=== PATIENT | female | born 1965 | race Caucasian/White ===

== ENCOUNTER 2023-02-05 19:18 | Outpatient (REF) | payer MEDICARE, SELFPAY ==
[2023-02-05 19:50] LABS: White Blood Count 14.1 10^3/uL (4.0-11.0)
[2023-02-05 20:09] LABS: Anion Gap 8.8; BUN Creatinine Ratio 8.2; Calcium 8.2 mg/dL (8.5-10.1); Carbon Dioxide 30.9 mmol/L (21.0-32.0); Chloride 105 mmol/L (98-107); Estimated GFR (African America >60 (>=60); Estimated GFR (Non-African Ame 51 (>=60); Glucose 51 mg/dL (74-106); Potassium 3.7 mmol/L (3.5-5.1); Sodium 141 mmol/L (136-145); Vancomycin Random 16.4 ug/mL
== END 2023-02-05 19:19 | disposition home or self-care (01) ==
LOC: LAB 19:18
PROVIDERS: PCP Internal Medicine; Visit Provider Internal Medicine Infectious Disease
DX: L03.90 Cellulitis, unspecified (principal); L08.9 Local infection of the skin and subcutaneous tissue, unspecified; B96.89 Other specified bacterial agents as the cause of diseases classified elsewhere
CPT/HCPCS: 36415; 80048; 80202; 85048

== ENCOUNTER 2023-02-11 11:36 | Outpatient (REF) | payer MEDICARE, SELFPAY ==
[2023-02-11 15:22] LABS: C. Difficile PCR NEGATIVE (NEGATIVE)
--- OUTSIDE RECORDS SUMMARY | 2023-03-03 00:58 | XMS_ITS | CCD ---
Author Name Unknown Address [address] [place] [address] Organization [facility] Care Team Providers Care Policy Advisor Name Role Phone MATILDE LOYOLA Admitting Unavailable MATILDE LOYOLA Attending Unavailable JARVIS THRASHER Primary Care Unavailable MATILDE LOYOLA Consulting Unavailable Unavailable Primary Care Provider Unavaildomingo e Zaid Mon Unavailable [phone] Alejandra Middleton Unavailable MD Jarvis Thrasher Primary Care Provider [phone] DO Yung David Attending Provider DO Chino Peraza Emergency Provider [phone] DO Ankur Mahan Emergency Provider MD Elise Marie Admit Provider [phone] Ashley, DPM Chichi Other Provider [phone] MD Karsten Vega Other Provider DO Adithya Rm Attending Provider MD Zaid Mon Attending Provider [phone] MD Zaid Mon Admit Provider LUPE Lin Other Provider Unavailable LUPE Wesley Other Provider Unavailable LUPE Chapin Other Provider Unavailable LUPE Yang Other Provider Unavailable LUPE Haddad Other Provider Unavailable LUPE Penn Other Provider Unavailable MD Malgorzata Kaplan Other Provider MD Adria Beckett Other Provider NAOMI Duran Other Provider DO Moises Venegas Other Provider MD Trung Cruz Other Provider DO Adithya Rm Other Provider MD Dean Rodriguez Other Provider MD Elise Marie Other Provider Chace, ANP-BC Valerie Other Provider MD Fredy Patricia Other Provider MD Aba Griffith Other Provider MD Yue Mendez Other Provider MD Hafsa Ivy Other Provider MD Rafat Duron Other Provider MD Juliane Campbell Other Provider MD Fernandez Ramirez Other Provider Michelle, HAND BENDER-C Sanna Landon Other Provider MD Ryland Liu Other Provider MD Maximo Patel Other Provider MD Steph Fu Other Provider MD Clyde Luna Other Provider DO Hailee Berg Other Provider Al MD Raj Ashby Other Provider DO Eugene Mcdonough Other Provider [phone] NAOMI Rodriguez Other Provider DO Calvin Underwood Other Provider MD Rodney Marti Other Provider [phone] Bharti, LUPE Sigala Other Provider Unavailable DO Robles Owen Emergency Provider MD Raj Vasquez Admit Provider MD Zaid Mon Other Provider MD Dean Rodriguez Attending Provider DO Zaid Fan Emergency Provider MD Rodney Bishop Admit Provider [phone] MD Rodney Marti Attending Provider MD Rolando Sykes Other Provider BECKIE Dsouza Other Provider Unavaildomingo Sanchez LPN Alma Other Provider Unavailable GENEVA Middleton-C Alejandra Pena Other Provider [phone] MD Sai Obregon F Other Provider TERESA Mehta Attending Provider MD Jarvis Thrasher Primary Care Provider DO Chino Peraza M Emergency Provider DO Ankur Mahan Emergency Provider MD Elise Marie Admit Provider TERESA Ramirez Other Provider MD Karsten Vega Other Provider DO Adithya Rm Attending Provider [phone] MD Zaid Mon Attending Provider MD Zaid Mon Admit Provider LUPE Lin Other Provider Unavailable LUPE Wesley Other Provider Unavailable LUPE Chapin Other Provider Unavailable LUPE Yang Other Provider Unavailable LUPE Haddad Other Provider Unavailable LUPE Penn Other Provider Unavailable MD Malgorzata Kaplan Other Provider MD Adria Beckett Other Provider NAOMI Duran Other Provider DO Moises Venegas Other Provider MD Trung Cruz Other Provider DO Adithya Rm Other Provider MD Dean Rodriguez Other Provider [phone] MD Elise Marie Other Provider Chace ANP-BC Valerie Other Provider MD Fredy Patricia Other Provider MD Aba Griffith Other Provider MD Yue Mendez Other Provider MD Hafsa Ivy Other Provider MD Rafat Duron Other Provider MD Juliane Campbell Other Provider MD Fernandez Ramirez Other Provider Michelle, HAND BENDER-C Sanna Landon Other Provider MD Ryland Liu Other Provider MD Maximo Patel Other Provider MD Steph Fu Other Provider MD Clyde Luna Other Provider DO Hailee Berg Other Provider MD Raj Vasquez Other Provider DO Eugene Mcdonough Other Provider NAOMI Rodriguez Other Provider DO Calvin Underwood Other Provider MD Rodney Marti Other Provider Bharti, RN Zakiya Other Provider Unavailable DO Robles Owen Emergency Provider MD Raj Vasquez Admit Provider MD Zaid Mon Other Provider MD Dean Rodriguez Attending Provider DO Zaid Fan Emergency Provider Unavai MD Rodney Parada Admit Provider MD Rodney Marti Attending Provider [phone] MD Rolando Sykes Other Provider BECKIE Dsouza Sravani Other Provider UnavailBECKIE Oscar Other Provider Unavailable GINA Middleton Other Provider MD Sai Obregon Other Provider TERESA Mehta Attending Provider TERESA Mehta Admit Provider DO Zackary Rivera Other Provider Javed Snyder Unavailable GENEVA Arias Other Provider GINA Ramirez Other Provider MD Javed Snyder S Other Provider MD Rafat Sanders Other Provider MD Jarvis Thrasher Primary Care Provider MD Jarvis Thrasher Attending Provider DO Robert Larsen Emergency Provider [phone] DO Hailee Berg Admit Provider TERESA Mehta Other Provider MD Fredy Patricia Attending Provider MD Jarvis Thrasher Primary Care Provider MD Zaid Mon Attending Provider MD Karsten Vega Other Provider [phone] DO Ankur Mahan Emergency Provider [phone] DO Jose Owen Other Provider DO Rolando Vicente Other Provider MD Jarvis Thrasher Primary Care Provider DO Robles Owen Emergency Provider Al Katiei MD Raj Oscar Admit Provider MD Zaid Mon Other Provider MD Dean Rodriguez Attending Provider DO Zaid Fan Emergency Provider Unavai MD Rodney Parada Admit Provider MD Rodney Marti Attending Provider MD Rolando Sykes Other Provider BECKIE Dsouza Other Provider UnavailBECKIE Oscar Other Provider Unavailable MD Karsten Vega Other Provider GENEVA Middleton-C Alejandra R Other Provider MD Sai Obregon F Other Provider TERESA Mehta Attending Provider TERESA Mehta Admit Provider LUPE Lin Other Provider Unavailable LUPE Wesley Other Provider Unavailable LUPE Chapin Other Provider Unavailable LUPE Yang Other Provider Unavailable LUPE Haddad Other Provider Unavailable Isamar, RN Lily Other Provider Unavailable MD Malgorzata Kaplan Other Provider MD Adria Beckett Other Provider Dials, SIGNAL WIRER Kate Archuleta Other Provider [phone] DO Moises Venegas Other Provider MD Trung Cruz Other Provider DO Adithya Rm Other Provider MD Dean Rodriguez Other Provider [phone] MD Elise Marie Other Provider Chace ANP-BC Valerie Other Provider [phone] MD Fredy Patricia Other Provider MD Aba Griffith Other Provider MD Yue Mendez Other Provider MD Hafsa Ivy Other Provider MD Rafat Duron Other Provider MD Juliane Campbell Other Provider MD Fernandez Ramirez Other Provider GINA Martinez Other Provider MD Ryland Liu Other Provider MD Maximo Patel Other Provider MD Steph Fu Other Provider MD Clyde Luna Other Provider DO Hailee Berg Other Provider Al MD Raj Ashby Other Provider DO Eugene Mcdonough Other Provider [phone] DO Zackary Rivera Other Provider NAOMI Rodriguez Other Provider DO Calvin Underwood Other Provider MD Rodney Marti M Other Provider Bharti, LUPE Sigala Other Provider Unavailable GENEVA Arias Other Provider GINA Ramirez Other Provider MD Javed Snyder Other Provider MD Rafat Sanders Other Provider MD Jarvis Thrasher Attending Provider [phone] DO Robert Larsen Emergency Provider DO Hailee Berg Admit Provider TERESA Mehta Other Provider [phone] MD Fredy Patricia Attending Provider DO Ankur Mahan Emergency Provider DO Rolando Vicente Other Provider DO Jose Owen Other Provider DO Yung David Attending Provider MD Jarvis Thrasher Primary Care Provider DO Robert Larsen Emergency Provider [phone] DO Hailee Berg Admit Provider MD Rolando Sykes Other Provider TERESA Mehta Other Provider MD Zaid Mon Other Provider MD Fredy Patricia Attending Provider [phone] DO Ankur Mahan Emergency Provider TERESA Mehta Kanu RValentina Attending Provider TERESA Mehta Kanu R. Admit Provider Riley, LUPE Jaffe Other Provider Unavailable LUPE Wesley Other Provider Unavailable LUPE Chapin Other Provider Unavailable LUPE Yang Other Provider Unavailable LUPE Haddad Other Provider Unavailable Isamar, RN Lily Other Provider Unavailable MD Malgorzata Kaplan Other Provider MD Adria Beckett Other Provider Dials, SIGNAL WIRER Kate Archuleta Other Provider DO Moises Venegas Other Provider MD Trung Cruz Other Provider DO Adithya Rm Other Provider MD Dean Rodriguez Other Provider MD Elise Marie Other Provider Chace ANP-BC Valerie Other Provider MD Fredy Patricia Other Provider MD Aba Griffith Other Provider MD Yue Mendez Other Provider MD Hafsa Ivy Other Provider DO Rolando Vicente Other Provider MD Rafat Duron Other Provider MD Juliane Campbell Other Provider MD Fernandez Ramirez Other Provider GENEVA Martinez-C Sanna Landon Other Provider MD Ryland Liu Other Provider MD Maximo Patel Other Provider MD Steph Fu Other Provider MD Clyde Luna Other Provider DO Hailee Berg Other Provider Al Lucila Oscar MD Hanbrenna Other Provider DO Eugene Mcdonough Other Provider DO Zackary Rivera Other Provider [phone] NAOMI Rodriguez Other Provider DO Calvin Underwood Other Provider MD Rodney Marti Other Provider Bharti, RN Zakiya Other Provider Unavailable DO Jose Owen Other Provider [phone] DO Yung David Attending Provider MD Jarvis Thrasher Primary Care Provider TERESA Mehta Attending Provider MD Zaid Mon Attending Provider MD Jarvis Thrasher Primary Care Provider MD Zaid Mon Attending Provider [phone] TERESA Mehta Attending Provider MD Jarvis Thrasher Primary Care Provider MD Zaid Mon Attending Provider NO FAMILY, PHYSICIAN Primary Care Provider Unava ilable TERESA Mehta Attending Provider MD Zaid Mon Attending Provider MD Jarvis Thrasher Primary Care Provider NON STAFF Primary Care Provider NAOMI Rivera Emergency Provider Unavailable Primary Care Provider TERESA Phelan Attending Provider MD Jarvis Thrasher Primary Care Provider [phone] GENEVA Middleton-Venus Pena Attending Provider SASTRY, ANTWON Referring Unavailable SASTRY, ANTWON Attending Unavailable SASTRY, ANTWON Referring Unavailable SASTRY, ANTWON Attending Unavailable SASTRY, ANTWON Attending Unavailable MD Jarvis Thrasher Primary Care Provider [phone] NAOMI Martínez Emergency Provider DO Chino Peraza Emergency Provider [phone] [facility] [place] Admit Provider [phone] [facility] [place] Attending Provider MD Rolando Sykes Other Provider TERESA Mehta Other Provider MD Zaid Mon Other Provider MD Ryland Liu Attending Provider MD Jarvis Thrasher Primary Care Provider [phone] MD Jarvis Thrasher Referring Provider NAOMI Toro Attending Provider MD Jarvis Thrasher Attending Provider MD Jarvis Thrasher Referring Provider NAOMI Toro Nora Attending Provider TERESA Mehta Attending Provider [phone] [place], Jarvis Primary Care Unavailable [place], Casa T Admitting Unavailable Ryland Liu Attending UnavailRolando Ruiz Consulting Unavailable Kanu Mehta Consulting Unavailable Zaid Mon Consulting Unavailabl e Melissa, Kanu R. Admitting Unavailable Hill, Jarvis Primary Care Unavailable Melissa, Kanu Corley Attending Unavailable Melissa, Kanu R. Admitting Unavailable Hill, Jarvis Primary Care Unavailable Kanu Mehta Attending Unavailable Melissa, Kanu RValentina Admitting Unavailable Hill, Jarvis Primary Care Unavailable Melissa, Kanu Corley Attending Unavailable Melissa, Kanu R. Admitting Unavailable Hill, Jarvis Primary Care Unavailable Melissa, Kanu Corley Attending Unavailable [place], Jarvis Primary Care Unavailable Zaid Mon Attending Unavailabl e Zaid Mon Admitting Unavailabl e Hill, Jarvis Primary Care Unavailable Yaa, Zaid Garrett Attending Unavailabl e Yaa, Zaid Garrett Admitting Unavailabl e Hill, Jarvis Primary Care Unavailable Kanu Mehta Attending Unavailable Melissa, Kanu R. Admitting Unavailable Melissa, Kanu R. Admitting Unavailable [place], Jarvis Primary Care Unavailable Melissa, Kanu Corley Attending Unavailable Melissa, Kanu R. Admitting Unavailable Hill, Jarvis Primary Care Unavailable Kanu Mehta Attending Unavailable Kanu Mehta Attending Unavailable NO FAMILY, PHYSICIAN Primary Care Unavailable Melissa, Kanu R. Admitting Unavailable Hill, Jarvis Primary Care Unavailable Montana Martínez Attending Unavailable Montana Martínez Admitting Unavailable Hill, Jarvis Primary Care Unavailable [place], Jarvis Attending Unavailable Hill, Jarvis Admitting Unavailable Kanu Mehta Attending Unavailable Hill, Jarvis Primary Care Unavailable Melissa, Kanu R. Admitting Unavailable Hill, Jarvis Primary Care Unavailable Melissa, Kanu RValentina Attending Unavailable Melissa, Kanu R. Admitting Unavailable Zaid Mon Attending Unavailabl e Yaa, Zaid Garrett Admitting Unavailabl e Kanu Mehta Attending Unavailable Melissa, Kanu R. Admitting Unavailable BEEBEJARVIS L Attending Unavailable JARVIS THRASHER L Referring Unavailable KANU MEHTA Attending Unavailable KANU MEHTA Attending Unavailable KANU MEHTA Attending Unavailable JARVIS THRASHER Referring Unavailable JOHN ORR Attending Unavailable Allergies Allergy Classification Reported Allergen(s) Allergy Type Date of Onset Reaction(s) Facility (17 sources) Angiotensin Converting Enzyme (Keegan) Inhibitors Propensity to adverse reactions Cough [facility] [employer] Other (19 sources) metFORMIN; Translations: [METFORMIN] Drug Allergy 2 GI Upset, Other: See Comments [facility] Work Phone: (20 sources) pioglitazone; Translations: [PIOGLITAZONE] Drug Allergy 2 Cough, Other: See Comments [facility] Work Phone: (20 sources) predniSONE; Translations: [PREDNISONE] Drug Allergy 2 Other: See Comments, Unknown [facility] Work Phone: (17 sources) Unknown - Has Allergy Not Sure What Propensity to adverse reactions Unknown [facility] [employer] Other (20 sources) HYDROcodone; Translations: [HYDROCODONE] Drug Allergy 2 Mental Status Change [facility] (20 sources) Steroid Injection Allergy to substance 2 Swelling [facility] (1 source) metFORMIN Drug Allergy GI upset [facility] [employer] Other (3 sources) Angiotensin-con verting enzyme inhibitor agent; Translations: [KEEGAN INHIBITORS] Drug Allergy 2 Cough [facility] Work Phone: (3 sources) HMG-CoA reductase inhibitor; Translations: [[id number] A REDUCTASE INHIBITORS] Drug Allergy 2 Other: See Comments [facility] Work Phone: Medications Current Medications Medication Drug Class(es) Dates Sig (Normalized) Sig (Original) acetaminophen 325 mg / oxyCODONE hydrochloride 5 mg oral tablet (20 sources) Opioid Agonist Start: 08-20-2022 take 1 tablet by mouth every four to six hours Oxycodone-Acetami nophen Active 1 - 2 TAB PO EVERY 4-6 HOURS August 19, 2022 11:00pm Start: 12-18-2021 End: 01-08-2022 Oxycodone-Acetaminophen Disc ontinued TAB TABLET January 05, 2022 11:00pm January 06, 2022 5:37pm Start: 11-03-2021 take 1 tablet by alfonso th every six hours oxyCODONE-Acetaminophen 5-325 MG 1 table t as needed Orally every 6 hrs for 3 days Oct, Active Start: 09-27-2021 End: 10-09-2021 take 3 tablets by mouth three times daily Oxycodone-Acetaminophen (Percocet) 5-325 mg tablet Discontinued 3 TAB PO Three times daily September 27, 2021 1:17pm October 09, 2021 9:12am Start: 11-18-2017 End: 10-09-2021 Start: 05-17-2017 End: 01-08-2022 take 1 tablet by mouth every four to six hours Oxycodone-Acetaminophen (Percocet) 5-325 mg tablet Discontinued 1 - 2 TAB PO EVERY 4-6 HOURS November 18, 2017 September 27, 2021 1:17pm amitriptyline hydrochloride 25 mg oral tablet (20 sources) Tricyclic Antidepressant Start: 01-21-2021 take 50 mg by mouth once daily at bedtime Amitriptyline Active 50 MG PO Daily at bedtime January 21, 2021 12:00am Start: 01-21-2021 take 1 tablet by alfonso th once daily at bedtime amitriptyline (ELAVIL) 25 mg tablet Take 25 mg by mouth daily at bedtime. 0 06/09/2021 Active Comment on above: Take 25 mg by mouth daily at bedtime. aspirin 81 mg delayed release oral tablet (20 sources) Platelet Aggregation Inhibitor, Nonsteroidal Anti-inflammatory Drug Start: 01-22-2021 aspirin 81 mg chewable tablet 81 mg once daily. 0 01/22/2021 Active Start: 01-22-2021 End: 05-02-2021 take 81 mg by mouth once daily in the morning Aspirin Active 81 MG PO Every morning May 02, 2021 3:59pm Start: 12-23-2016 End: 11-18-2017 take 81 mg by mouth once daily Aspirin Discontinued 81 MG PO Daily December 22, 2016 11:00pm November 18, 2017 10:25am Baby Aspirin Act jerson Comment on above: 81 mg once daily. atorvastatin 20 mg oral tablet (20 sources) HMG-CoA Reductase Inhibitor Start: 10-17-2021 End: 12-26-2021 take 2 tablets by mouth once daily in the morning Atorvastatin (Lipitor) 20 mg tablet Active 40 MG PO Every morning December 26, 2021 7:45pm Start: 10-17-2021 take 2 tablets by mo ut once daily at bedtime Atorvastatin (Lipitor) 20 mg tablet Active 40 MG PO Daily at bedtime October 17, 2021 1:15pm Start: 10-17-2021 take 2 tablets by mo uth once daily at bedtime Atorvastatin (Lipitor) 20 mg tablet Active 40 MG PO Daily at bedtime October 17, 2021 1:15pm Start: 01-22-2021 End: 10-17-2021 take 1 tablet by mouth once daily at bedtime Atorvastatin (Lipitor) 20 mg tablet Discontinued 20 MG PO Daily at bedtime May 02, 2021 3:59pm October 17, 2021 1:58pm Start: 01-22-2021 End: 10-17-2021 take 2 tablets by mouth once daily atorvastatin (LIPITOR) 20 mg tablet Take 40 mg by mouth once daily. 0 06/09/2021 Active Start: 01-18-2017 End: 11-18-2017 take 20 mg by mouth once daily Atorvastatin Discontinu ed 20 MG PO Daily January 18, 2017 12:00am November 18, 2017 10:26am Start: 01-18-2017 End: 11-18-2017 Comment on above: Take 20 mg by mouth once daily. Take 40 mg by mouth once daily. clopidogrel 75 mg oral tablet (20 sources) [id number] Platelet Inhibitor Start: 01-22-2021 End: 05-02-2021 take 75 mg by mouth once daily in the morning Clopidogrel Active 75 MG PO Every morning May 02, 2021 3:59pm Comment on above: Take 75 mg by mouth once daily. collagenase 0.25 unt/mg topical ointment (20 sources) Collagen-specific Enzyme Start: 08-20-2022 Colla genase Clostridium Histo. (Santyl) 250 unit/gram ointment Active 1 APPLIC TOPICAL Daily August 19, 2022 11:00pm Start: 03-10-2021 End: 07-29-2021 Collagenase Clostridium Hist o. (Santyl) 250 unit/gram ointment Discontinued 1 APPLIC TOPICAL Daily March 10, 2021 12:00am July 29, 2021 9:26am Start: 03-10-2021 End: 07-29-2021 DULoxetine 30 mg delayed release oral capsule (20 sources) Serotonin and Norepinephrine Reuptake Inhibitor Start: 08-20-2022 take 30 mg by mouth once daily in the morning Duloxetine Active 30 MG PO Every morning August 19, 2022 11:00pm Start: 11-04-2021 End: 12-09-2021 take 30 mg by mouth once daily Duloxetine Discontinued 30 MG PO Daily November 03, 2021 11:00pm December 09, 2021 3:51pm Start: 11-04-2021 take 30 mg by mouth once daily Duloxetine Active 30 MG PO Daily November 04, 2021 12:00am Start: 11-04-2021 take 30 mg by mouth once daily Duloxetine Active 30 MG PO Daily November 04, 2021 12:00am Start: 11-04-2021 take 30 mg by mouth once daily Duloxetine Active 30 MG PO Daily November 04, 2021 12:00am Start: 11-04-2021 take 30 mg by mouth once daily Duloxetine Active 30 MG PO Daily November 04, 2021 12:00am Start: 08-20-2021 take 1 capsule by mo [facility] once daily DULoxetine (CYMBALTA) 30 mg capsule Take 30 mg by mouth once daily. 0 08/20/2021 Active Comment on above: Take 30 mg by mouth once daily. Flonase 50 MCG/ACT (2 sources) take 2 spray(s) nasal route once daily as needed Flonase 50 MCG/ACT inhale 2 spray by Intranasal route every day in each nostril prn Nasal *please review for potential _update for e-prescription and drug interaction check* Active gabapentin 800 mg oral tablet (20 sources) Anti-epileptic Agent Start: 01-21-2021 take 800 mg by mouth four times daily Gabapentin Active 800 MG PO Four times daily January 21, 2021 12:00am Start: 11-02-2017 End: 01-26-2019 take 300 mg by mouth once daily Gabapentin Discontinue d 300 MG PO Daily November 01, 2017 11:00pm January 26, 2019 12:22pm take 1 tablet by alfonso th every eight hours Gabapentin 800 MG 1 capsule Orally TID for 90 Days Active take 1 capsule by mo uth every twelve hours Gabapentin 300 mg 1 capsule Orally bid for 90 Days Active Comment on above: Take 800 mg by mouth four times daily. glimepiride 4 mg oral tablet (20 sources) Sulfonylurea Start: 11-04-2021 take 4 mg by mouth once daily in the morning Glimepiride Active 4 MG PO Every morning November 03, 2021 11:00pm Start: 11-04-2021 take 4 mg by mouth once daily Glimepiride Active 4 MG PO Daily November 04, 2021 12:00am Start: 11-04-2021 take 4 mg by mouth once daily Glimepiride Active 4 MG PO Daily November 04, 2021 12:00am Start: 11-04-2021 take 4 mg by mouth once daily Glimepiride Active 4 MG PO Daily November 04, 2021 12:00am Start: 11-04-2021 take 4 mg by mouth once daily Glimepiride Active 4 MG PO Daily November 04, 2021 12:00am Start: 12-30-2016 End: 10-17-2021 take 4 mg by mouth once daily in the morning Glimepiride Discontinued 4 MG PO Every morning January 21, 2021 12:00am October 17, 2021 1:58pm Start: 11-24-2016 End: 01-21-2021 take 4 mg by mouth once daily Glimepiride Discontinued 4 MG PO Daily January 18, 2017 12:00am January 21, 2021 10:41am Start: 11-24-2016 End: 11-18-2017 take 2 mg by mouth once daily Glimepiride Discontinued 2 MG PO Daily November 23, 2016 11:00pm November 18, 2017 10:27am Comment on above: Take 4 mg by mouth o nce daily. Handicap Placard 5 year 5 year (17 sources) Start: 12-26-[address] 5 year 5 year 1 misc daily for 5 year *please review for potential _update for e-prescription and drug interaction check* Dec, Active levothyroxine sodium 0.125 mg oral tablet (20 sources) l-Thyrox ine Start: 07-16-2022 take 150 ug by mouth once daily in the morning Levothyroxine Active 150 MCG PO Every morning September 26, 2021 11:00pm Start: 09-27-2021 take 125 ug by mouth once juana y Levothyroxine Active 125 MCG PO Daily September 27, 2021 12:00am Start: 08-05-2021 levothyroxine (SYNTHROID) 100 mcg tablet Take 150 mcg by mouth once daily. 0 08/05/2021 Active Start: 08-05-2021 take 1 tablet by alfonso th once daily in the morning levothyroxine (SYNTHROID) 100 mcg tablet TAKE 1 TABLET in the morning on an empty stomach orally once a day 60 days 0 08/05/2021 Active Levothyroxine So dium 100 MCG TAKE 1 TABLET in the morning on an empty stomach orally once a day 60 days Oral for 60 Days Active Comment on above: TAKE 1 TABLET in the morning on an empty stomach orally once a day 60 days Take 150 mcg by mout h once daily. meloxicam 15 mg oral tablet (20 sources) Nonsteroidal Anti-inflammatory Drug Start: 01-21-2021 take 15 mg by mouth once daily in the morning Meloxicam Active 15 MG PO Every morning January 21, 2021 12:00am Comment on above: Take 15 mg by mouth once daily. 24 hr metoprolol succinate 25 mg extended release oral tablet (20 sources) beta-Adrenergic Rajat Start: 05-02-2021 take 50 mg by mouth once daily in the morning Metoprolol Succinate Active 50 MG PO Every morning May 02, 2021 12:00am Start: 05-02-2021 Comment on above: Take 25 mg by mouth once daily. Take 50 mg by mouth once daily. omeprazole 40 mg delayed release oral capsule (10 sources) Proton Pump Inhibitor Start: 08-20-2022 take 40 mg by mouth once daily in the morning Omeprazole Active 40 MG PO Every morning August 19, 2022 11:00pm Ozempic (0.25 or 0.5 MG/DOSE) 2 MG/1.5ML (2 sources) Ozempic (0.25 or 0.5 MG/DOSE) 2 MG/1.5ML as directed Subcutaneous Active proparacaine hydrochloride 5 mg/ml ophthalmic solution (1 source) Local Anesthetic Start: 01-01-2023 End: 01-02-2023 proparacaine 0.5 % 1 Drop (ALCAINE) Semaglutide (20 sources) Start: 08-20-2022 inject 1 mg by subcutaneous injection every week Semaglutide (Ozempic) 1 mg/dose (4 mg/3 mL) pen injector Active 1 MG SUBCUT every week August 20, 2022 10:36am pt. takes on mondays. Start: 08-20-2022 inject 1 mg by subcu taneous injection every week Semaglutide (Ozempic) 1 mg/dose (4 mg/3 mL) pen injector Active 1 MG SUBCUT every week August 20, 2022 11:36am pt. takes on mondays. Start: 10-17-2021 End: 08-20-2022 inject 1 mg by subcutaneous injection every week Semaglutide (Ozempic) 1 mg/dose (4 mg/3 mL) pen injector Discontinued 1 MG SUBCUT every week October 16, 2021 11:00pm August 20, 2022 10:36am pt. takes on mondays. Start: 10-17-2021 End: 08-20-2022 inject 1 mg by subcutaneous injection every week Semaglutide (Ozempic) 1 mg/dose (4 mg/3 mL) pen injector Discontinued 1 MG SUBCUT every week October 17, 2021 12:00am August 20, 2022 11:36am pt. takes on mondays. Start: 10-17-2021 inject 1 mg by subcu taneous injection every week Semaglutide (Ozempic) 1 mg/dose (4 mg/3 mL) pen injector Active 1 MG SUBCUT every week October 16, 2021 11:00pm pt. takes on mondays. Start: 10-17-2021 Start: 10-17-2021 inject 1 mg by subcu taneous injection every week Semaglutide (Ozempic) 1 mg/dose (4 mg/3 mL) pen injector Active 1 MG SUBCUT every week October 17, 2021 12:00am pt. takes on mondays. Start: 10-17-2021 inject 1 mg by subcu taneous injection every week Semaglutide (Ozempic) 1 mg/dose (4 mg/3 mL) pen injector Active 1 MG SUBCUT every week October 17, 2021 12:00am Sennosides (Senna Lax) 8.6 mg Tablet (20 sources) Start: 10-09-2021 take 2 tablets by mouth twice daily Sennosides (Senna Lax) 8.6 mg Tablet Active 2 TAB PO Twice daily 120 October 08, 2021 11:00pm Start: 10-09-2021 take 2 tablets by mo uth twice daily Sennosides (Senna Lax) 8.6 mg Tablet Active 2 TAB PO Twice daily 120 October 09, 2021 12:00am Completed/Discontinued Medications Medication Drug Class(es) Dates Sig (Normalized) Sig (Original) amoxicillin 875 mg / clavulanate 125 mg oral tablet (20 sources) Penicillin-class Antibacterial Start: 11-09-2021 End: 12-03-2021 take 1 tablet by mouth twice daily Amoxicillin-Pot Clavulanate Discontinued 1 TAB PO Twice daily 14 November 08, 2021 11:00pm December 03, 2021 6:40pm Start: 11-09-2021 End: 12-03-2021 Start: 11-09-2021 take 1 tablet by alfonso th twice daily Amoxicillin-Pot Clavulanate Active 1 TAB PO Twice daily 14 November 09, 2021 12:00am Start: 11-09-2021 take 1 tablet by alfonso th twice daily Amoxicillin-Pot Clavulanate Active 1 TAB PO Twice daily 14 November 09, 2021 12:00am Start: 11-09-2021 take 1 tablet by alfonso th twice daily Amoxicillin-Pot Clavulanate Active 1 TAB PO Twice daily 14 November 09, 2021 12:00am Start: 11-09-2021 take 1 tablet by alfonso th twice daily Amoxicillin-Pot Clavulanate Active 1 TAB PO Twice daily 14 November 09, 2021 12:00am Start: 11-09-2021 take 1 tablet by alfonso th twice daily Amoxicillin-Pot Clavulanate Active 1 TAB PO Twice daily 14 November 09, 2021 12:00am atenolol 25 mg oral tablet (20 sources) beta-Adrenergic Rajat Start: 11-24-2016 End: 01-18-2017 take 1 tablet by mouth twice daily Atenolol Discontinued 1 TAB PO Twice daily November 23, 2016 11:00pm January 18, 2017 11:37am Start: 11-24-2016 End: 01-18-2017 azithromycin 250 mg oral tablet (20 sources) Macrolide Antimicrobial Start: 01-18-2017 End: 11-18-2017 take 1 tablet by mouth once daily Azithromycin Discontinued 250 MG PO Daily January 18, 2017 12:00am November 18, 2017 10:26am take one tab daily for 4 days bevacizumab intravitreal syringe 2.5 mg/0.1 mL (2 sources) Start: 01-01-2023 End: 01-01-2023 bevacizumab intravitreal syringe 2.5 mg/0.1 mL Start: 12-04-2022 End: 12-04-2022 bevacizumab intravitreal syr barron 2.5 mg/0.1 mL cephalexin 500 mg oral capsule (20 sources) Cephalosporin Antibacterial Start: 01-06-2022 End: 01-06-2022 take 500 mg by mouth every six hours Cephalexin Discontinued 500 MG PO Q6H 28 January 05, 2022 11:00pm January 06, 2022 5:34pm Start: 10-13-2021 End: 10-17-2021 take 500 mg by mouth three times daily Cephalexin Discontinued 500 MG PO Three times daily October 12, 2021 11:00pm October 17, 2021 1:58pm Start: 01-22-2021 End: 02-12-2021 take 500 mg by mouth twice daily Cephalexin Discontinued 500 MG PO Twice daily 20 January 22, 2021 12:00am February 12, 2021 4:36pm Start: 01-22-2021 End: 02-12-2021 clindamycin 300 mg oral capsule (20 sources) Lincosamide Antibacterial Start: 10-12-2021 End: 10-13-2021 take 300 mg by mouth three times daily Clindamycin Hcl Discontinued 300 MG PO Three times daily 63 October 11, 2021 11:00pm October 13, 2021 7:13am cyclobenzaprine hydrochloride 10 mg oral tablet (20 sources) Muscle Relaxant Start: 08-20-2021 take 1 tablet by mouth once daily at bedtime as needed cyclobenzaprine (FLEXERIL) 10 mg tablet TAKE 1 TABLET BY MOUTH AT BEDTIME DAILY NEEDED 0 08/20/2021 Active Start: 05-02-2021 take 10 mg by mouth once daily at bedtime Cyclobenzaprine Active 10 MG PO Daily at bedtime May 02, 2021 12:00am Comment on above: TAKE 1 TABLET BY ALFONSO TH AT BEDTIME DAILY NEEDED docusate sodium 100 mg oral capsule (20 sources) Start: 10-09-2021 End: 10-17-2021 take 200 mg by mouth twice daily Docusate Sodium Discontinued 200 MG PO Twice daily 120 October 08, 2021 11:00pm October 17, 2021 1:58pm doxycycline hyclate 100 mg oral tablet (20 sources) Tetracycline- class Drug Start: 11-09-2021 End: 12-03-2021 take 100 mg by mouth twice daily Doxycycline Hyclate Discontinued 100 MG PO Twice daily 0 November 09, 2021 11:58am December 03, 2021 6:40pm Continue for 7 more days Start: 11-09-2021 take 100 mg by mouth twice daily Doxycycline Hyclate Active 100 MG PO Twice daily 0 November 09, 2021 12:58pm Continue for 7 more days Start: 11-09-2021 take 100 mg by mouth twice daily Doxycycline Hyclate Active 100 MG PO Twice daily 0 November 09, 2021 12:58pm Continue for 7 more days Start: 11-09-2021 take 100 mg by mouth twice daily Doxycycline Hyclate Active 100 MG PO Twice daily 0 November 09, 2021 12:58pm Continue for 7 more days Start: 11-09-2021 take 100 mg by mouth twice daily Doxycycline Hyclate Active 100 MG PO Twice daily 0 November 09, 2021 12:58pm Continue for 7 more days Start: 11-09-2021 take 100 mg by mouth twice daily Doxycycline Hyclate Active 100 MG PO Twice daily 0 November 09, 2021 12:58pm Continue for 7 more days Start: 11-09-2021 End: 11-09-2021 take 100 mg by mouth twice daily Doxycycline Hyclate Discontinued 100 MG PO Twice daily November 08, 2021 11:00pm November 09, 2021 11:58am Start: 09-27-2021 End: 10-09-2021 take 100 mg by mouth once daily Doxycycline Hyclate Di scontinued 100 MG PO Daily September 27, 2021 1:17pm October 09, 2021 9:11am Start: 08-13-2021 End: 10-09-2021 take 100 mg by mouth twice daily Doxycycline Hyclate Discontinued 100 MG PO Twice daily 14 August 12, 2021 11:00pm September 27, 2021 1:17pm Start: 05-10-2021 End: 07-29-2021 take 100 mg by mouth twice daily Doxycycline Hyclate Discontinued 100 MG PO Twice daily 01 01May 10, 2021 12:00am July 29, 2021 9:20am take 1 tablet by alfonso once daily Doxycycline Hyclate 100 MG 1 tablet Orally Once a day Active ergocalciferol 1.25 mg oral capsule (2 sources) Provitamin D2 Compound Start: 09-07-2022 ergocalciferol 50,00 0 unit capsule (VITAMIN D2, DRISDOL) Take 1.25 mg by mouth. 0 09/07/2022 Active Comment on above: Take 1.25 mg by mout h. 72 hr fentaNYL 0.025 mg/hr transdermal system (20 sources) Opioid Agonist Start: 11-09-2021 End: 12-03-2021 Fentanyl Discontinued 25 MCG TRANSDERML Every 72 hours 2 November 09, 2021 December 03, 2021 6:40pm Start: 11-09-2021 End: 12-03-2021 Start: 11-09-2021 Fentanyl Activ e 25 MCG TRANSDERML Every 72 hours 2 November 09, 2021 Start: 11-09-2021 Fentanyl Activ e 25 MCG TRANSDERML Every 72 hours 2 November 09, 2021 Start: 11-09-2021 Fentanyl Activ e 25 MCG TRANSDERML Every 72 hours 04 20November 09, 2021 Start: 11-09-2021 Fentanyl Activ e 25 MCG TRANSDERML Every 72 hours 2 November 09, 2021 Start: 11-09-2021 Fentanyl Activ e 25 MCG TRANSDERML Every 72 hours 2 November 09, 2021 fluticasone propionate 0.05 mg/actuat metered dose nasal spray (20 sources) Corticosteroid Start: 08-20-2021 take 2 spray(s) nasal route once daily as needed fluticasone (FLONASE) 50 mcg/actuation nasal spray INHALE TWO SPRAYS NASALLY EVERY DAY IN EACH NOSTRIL NEEDED 0 08/20/2021 Active Start: 03-06-2018 Fluticasone Pr opionate (Flonase Allergy Relief) 50 mcg/actuation [place],Suspension Active 1 SPRAY INTRANASAL Daily at bedtime March 06, 2018 12:00am Start: 03-06-2018 Fluticasone Prop ionate 50 MCG/ACT Nasal for 30 Days Active Comment on above: INHALE TWO SPRAYS NA LAURITA EVERY DAY IN EACH NOSTRIL NEEDED HYDROmorphone hydrochloride 2 mg oral tablet (16 sources) Opioid Agonist Start: 01-08-2022 End: 08-20-2022 take 2 mg by mouth every six hours Hydromorphone Discontinued 2 MG PO Every 6 hours 56 January 08, 2022 August 20, 2022 10:34am Insulin Aspart U-100 (Novolog Flexpen U-100 Insulin) 100 unit/mL (3 mL) Insulin Pen (20 sources) Start: 10-17-2021 End: 11-04-2021 Insulin Aspart U-100 (Novolog Flexpen U-100 Insulin) 100 unit/mL (3 mL) Insulin Pen Discontinued 0 UNITS SUBCUT 3X/Day with meals and bedtime 0 October 16, 2021 11:00pm November 04, 2021 1:14am Start: 10-17-2021 End: 11-04-2021 Insulin Aspart U-100 (Novolo g Flexpen U-100 Insulin) 100 unit/mL (3 mL) Insulin Pen Discontinued 0 UNITS SUBCUT 3X/Day with meals and bedtime 0 October 17, 2021 12:00am November 04, 2021 2:14am 3 ml insulin detemir 100 unt/ml pen injector (20 sources) Insulin Analog Start: 10-17-2021 End: 11-04-2021 Insulin Detemir U-100 (Levemir Flextouch U-100 Insuln) 100 unit/mL (3 mL) Insulin Pen Discontinued 20 UNIT SUBCUT Daily at bedtime 0 October 16, 2021 11:00pm November 04, 2021 1:14am levoFLOXacin 750 mg oral tablet (20 sources) Quinolone Antimicrobial Start: 12-30-2021 End: 03-27-2022 take 750 mg by mouth once daily Levofloxacin Discontinued 750 MG PO Daily 12 22December 29, 2021 11:00pm March 27, 2022 12:02pm Start: 04-16-2021 End: 05-02-2021 take 750 mg by mouth once daily Levofloxacin Discontinued 750 MG PO Daily April 16, 2021 12:00am May 02, 2021 3:54pm Start: 03-13-2021 End: 04-09-2021 take 750 mg by mouth once daily Levofloxacin Discontinued 750 MG PO Daily 7 March 13, 2021 12:00am April 09, 2021 6:28am linezolid 600 mg oral tablet (20 sources) Oxazolidinone Antibacterial Start: 12-05-2021 End: 12-30-2021 take 600 mg by mouth twice daily Linezolid Discontinued 600 MG PO Twice daily December 04, 2021 11:00pm December 30, 2021 1:09pm 3 ml liraglutide 6 mg/ml pen injector (20 sources) GLP-1 Receptor Agonist Start: 11-02-2017 End: 01-26-2019 inject 1.2 mg by subcutaneous injection once daily Liraglutide Discontinued 1.2 MG SUBCUT Daily November 01, 2017 11:00pm January 26, 2019 12:22pm lisinopril 10 mg oral tablet (20 sources) Angiotensin Converting Enzyme Inhibitor Start: 01-18-2017 End: 11-18-2017 take 10 mg by mouth once daily Lisinopril Discontinued 10 MG PO Daily January 18, 2017 12:00am November 18, 2017 10:27am losartan potassium 50 mg oral tablet (20 sources) Angiotensin 2 Receptor Rajat Start: 01-21-2021 End: 01-21-2021 Losartan Discontinued MG TABLET January 21, 2021 12:00am January 21, 2021 10:46am Start: 11-02-2017 End: 01-21-2021 take 50 mg by mouth once daily in the morning Losartan Active 50 MG PO Every morning November 01, 2017 11:00pm Comment on above: Take 50 mg by mouth once daily. meclizine hydrochloride 25 mg oral tablet (20 sources) Antiemetic Start: 02-17-2019 End: 10-17-2021 take 25 mg by mouth once daily at bedtime Meclizine Discontinued 25 MG PO Daily at bedtime February 12, 2021 12:00am October 17, 2021 1:58pm Comment on above: Take 25 mg by mouth once daily as needed. methIMAzole 10 mg oral tablet (3 sources) Thyroid Hormone Synthesis Inhibitor Start: 06-18-2021 take 1 tablet by mouth once daily methIMAzole (TAPAZOLE) 10 mg tablet Take 10 mg by mouth once daily. 0 06/18/2021 Active Comment on above: Take 10 mg by mouth once daily. methylPREDNISolone (16 sources) Corticosteroid Start: 03-12-2015 Depo-Medrol 80 mg Feb, 1 mL nystatin 100 unt/mg topical ointment (20 sources) Polyene Antifungal Start: 06-25-2021 nystatin (MYCOSTATIN) ointment 1 (ONE) application to skin TWICE DAILY 0 06/25/2021 Active Start: 03-10-2021 End: 02-09-2023 Nystatin Discontinued 1 APPL IC TOPICAL Three times daily March 10, 2021 12:00am February 09, 2023 2:45pm Bilateral groins Start: 03-10-2021 Comment on above: 1 (ONE) application to skin TWICE DAILY ondansetron 8 mg oral tablet (3 sources) Serotonin-3 Receptor Antagonist Start: 07-01-2021 take 1 tablet by mouth every eight hours as needed ondansetron (ZOFRAN) 8 mg tablet Take 8 mg by mouth every 8 hours as needed. 0 07/01/2021 Active Comment on above: Take 8 mg by mouth e very 8 hours as needed. oxyCODONE hydrochloride 5 mg oral tablet (20 sources) Opioid Agonist Start: 12-18-2021 End: 01-06-2022 take 10 mg by mouth every four hours Oxycodone Discontinued 10 MG PO Q4H December 17, 2021 11:00pm January 06, 2022 5:36pm Start: 11-09-2021 End: 12-03-2021 take 15 mg by mouth four times daily Oxycodone Discontinued 15 MG PO Four times daily 01 10November 09, 2021 December 03, 2021 6:42pm Start: 11-09-2021 End: 12-09-2021 take 15 mg by mouth three times daily Oxycodone Discontinued 15 MG PO Three times daily December 03, 2021 6:42pm December 09, 2021 3:52pm Start: 11-09-2021 take 15 mg by mouth four times daily Oxycodone Active 15 MG PO Four times daily 01 10November 09, 2021 Start: 11-09-2021 take 15 mg by mouth four times daily Oxycodone Active 15 MG PO Four times daily 20 November 09, 2021 Start: 11-09-2021 take 15 mg by mouth four times daily Oxycodone Active 15 MG PO Four times daily 01 10November 09, 2021 Start: 11-09-2021 take 15 mg by mouth four times daily Oxycodone Active 15 MG PO Four times daily 01 10November 09, 2021 Start: 11-09-2021 take 15 mg by mouth four times daily Oxycodone Active 15 MG PO Four times daily 01 10November 09, 2021 Start: 10-09-2021 End: 11-09-2021 take 5-10 mg by mouth every four hours Oxycodone Discontinued 5 - 10 MG PO Every 4 hours 15 October 17, 2021 November 09, 2021 11:55am Start: 08-13-2021 End: 09-27-2021 Oxycodone (Roxicodone) 5 mg tablet Discontinued 10 MG PO Three times daily 14 3 August 13, 2021 September 27, 2021 11:01am Start: 05-10-2021 End: 07-29-2021 take 1 tablet by mouth twice daily, then take 1 tablet by mouth every hour Oxycodone (Oxycontin) 20 mg tablet,oral only,ext.rel.12 hr Discontinued 20 MG PO Twice daily 14 May 10, 2021 July 29, 2021 9:25am Start: 03-13-2021 End: 05-09-2021 take 1 tablet by mouth twice daily, then take 1 tablet by mouth every hour Oxycodone (Oxycontin) 10 mg tablet,oral only,ext.rel.12 hr Discontinued 10 MG PO Twice daily May 02, 2021 3:59pm May 09, 2021 2:17pm predniSONE 50 mg oral tablet (20 sources) Start: 01-26-2019 End: 01-21-2021 take 50 mg by mouth once daily Prednisone Discontinued 50 MG PO Daily 5 January 26, 2019 12:00am January 21, 2021 4:22am Start: 01-18-2017 End: 11-18-2017 take 20 mg by mouth once daily at mealtime Prednisone Discontinued 20 MG PO Daily January 18, 2017 12:00am November 18, 2017 10:28am administer with food or milk propylthiouracil 50 mg oral tablet (3 sources) Thyroid Hormone Synthesis Inhibitor Start: 07-02-2021 take 1 tablet by mouth twice daily propylthiouracil 50 mg tablet Take 50 mg by mouth twice daily. 0 07/02/2021 Active Comment on above: Take 50 mg by mouth twice daily. rivaroxaban 10 mg oral tablet (20 sources) Factor Xa Inhibitor Start: 11-09-2021 End: 12-09-2021 take 1 tablet by mouth once daily Rivaroxaban (Xarelto) 10 mg Tablet Discontinued 10 MG PO Daily November 08, 2021 11:00pm December 09, 2021 3:51pm Start: 11-09-2021 take 1 tablet by alfonso th once daily Rivaroxaban (Xarelto) 10 mg Tablet Active 10 MG PO Daily November 09, 2021 12:00am Start: 11-09-2021 take 1 tablet by alfonso once daily Rivaroxaban (Xarelto) 10 mg Tablet Active 10 MG PO Daily November 09, 2021 12:00am Start: 11-09-2021 take 1 tablet by alfonso th once daily Rivaroxaban (Xarelto) 10 mg Tablet Active 10 MG PO Daily November 09, 2021 12:00am Start: 11-09-2021 take 1 tablet by alfonso th once daily Rivaroxaban (Xarelto) 10 mg Tablet Active 10 MG PO Daily November 09, 2021 12:00am Start: 11-09-2021 take 1 tablet by alfonso once daily Rivaroxaban (Xarelto) 10 mg Tablet Active 10 MG PO Daily November 09, 2021 12:00am 0.25 mg, 0.5 mg dose 1.5 ml semaglutide 1.34 mg/ml pen injector (16 sources) Start: 08-20-2021 inject 0.5 mg by subcutaneous injection every week, then inject 1 mg by subcutaneous injection every week OZEMPIC 0.25 mg or 0.5 mg(2 mg/1.5 mL) pen injector INJECT 0.5MG SUBCUTANEOUSLY ONCE WEEKLY FOR FOUR WEEKS THEN 1MG ONCE A WEEK 0 08/20/2021 Active Comment on above: INJECT 0.5MG SUBCUTA NEOUSLY ONCE WEEKLY FOR FOUR WEEKS THEN 1MG ONCE A WEEK triamcinolone acetonide 5 mg/ml topical cream (20 sources) Corticosteroid Start: 08-20-2021 triamcinolone acetonide (KENALOG) 0.5 % cream APPLY TO THE AFFECTED AREA(S) EXTERNALLY TWICE DAILY NEEDED 0 08/20/2021 Active Start: 02-12-2021 End: 04-09-2021 Triamcinolone Acetonide Disc ontinued 1 APPLIC TOPICAL Twice daily February 12, 2021 12:00am April 09, 2021 6:30am Start: 02-12-2021 End: 04-09-2021 Triamcinolone Ac etonide 0.5 % 1 application to affected area Externally Twice a day prn Active Comment on above: APPLY TO THE AFFECTE D AREA(S) EXTERNALLY TWICE DAILY NEEDED vancomycin 1000 mg injection (4 sources) Glycopeptide Antibacterial Start: 02-02-2023 End: 02-09-2023 take 1 g intravenously every twelve hours Vancomycin Discontinued 1 GM IV Q12H February 02, 2023 12:00am February 09, 2023 2:44pm pharmacy to manage vancomycin dosing zolpidem tartrate 5 mg oral tablet (2 sources) gamma-Aminobutyric Acid-ergic Agonist Start: 09-07-2022 zolpidem (AMBIEN) 5 mg tablet Take 5 mg by mouth. 0 09/07/2022 Active Comment on above: Take 5 mg by mouth. (10 sources) Start: 10-17-2021 End: 11-04-2021 Start: 10-09-2021 Problems Active Problems Problem Classification Problem Date Documented Date Episodic/Chronic Acute cerebrovascular disease (20 sources) Cerebrovascular accident; Translations: [Cerebral infarction, unspecified] 12-21-2016 Chronic Administrative/social admission (20 sources) Counseling procedure with explicit context; Translations: [Tobacco abuse counseling] 12-21-2016 Episodic Cardiac dysrhythmias (20 sources) Palpitations; Translations: [Palpitations] 05-08-2021 Episodic Cataract (1 source) Artificial lens present; Translations: [Presence of intraocular lens] 12-04-2022 Chronic Chronic kidney disease (18 sources) Chronic kidney disease stage 2; Translations: [Chronic kidney disease, stage 2 (mild)] Onset: 10-16-2022 Chronic Chronic obstructive pulmonary disease and bronchiectasis (20 sources) Bronchitis; Translations: [Bronchitis, not specified as acute or chronic] 01-18-2017 Episodic Chronic ulcer of skin (20 sources) Non-pressure chronic ulcer of other part of left foot with unspecified severity; Translations: [Non-pressure chronic ulcer of other part of left foot with necrosis of bone] Onset: 10-29-2021 Resolved: 10-29-2021 Chronic Complications of surgical procedures or medical care (20 sources) Postoperative seroma; Translations: [Other specified complications of surgical and medical care, not elsewhere classified, initial encounter] Onset: 01-28-2023 08-13-2021 Episodic Conditions associated with dizziness or vertigo (17 sources) Benign paroxysmal positional vertigo; Translations: [Benign paroxysmal vertigo, left ear] Episodic Diabetes mellitus with complications (20 sources) Type 2 diabetes mellitus; Translations: [Type 2 diabetes mellitus with diabetic peripheral angiopathy without gangrene] Onset: 08-21-2021 Resolved: 08-21-2021 Chronic Diabetes mellitus without complication (20 sources) Diabetes mellitus; Translations: [Type 2 diabetes mellitus without complications] 12-21-2016 Chronic Diseases of white blood cells (2 sources) Neutrophilia; Translations: [Disorder of white blood cells, unspecified] 02-12-2023 Chronic Disorders of lipid metabolism (17 sources) Hypercholesterolemia; Translations: [Pure hypercholesterolemia] Chronic Essential hypertension (20 sources) Essential hypertension; Translations: [Essential (primary) hypertension] Onset: 10-16-2022 01-21-2021 Chronic External cause codes: Natural/environment (1 source) Overexertion from prolonged static or awkward postures, initial encounter; Translations: [OVEREXERT PROLNG STAT/AWK PST INIT] Onset: 03-17-2019 Gangrene (20 sources) Gangrenous disorder; Translations: [Gangrene, not elsewhere classified] Onset: 01-28-2023 02-08-2021 Episodic Infective arthritis and osteomyelitis (except that caused by tuberculosis or sexually transmitted disease) (20 sources) Osteomyelitis; Translations: [Osteomyelitis, unspecified] 01-21-2021 Chronic Malaise and fatigue (20 sources) Right hemiparesis; Translations: [Weakness] 12-21-2016 Episodic Nutritional deficiencies (20 sources) Undernutrition; Translations: [Unspecified protein-calorie malnutrition] 10-04-2021 Chronic Open wounds of extremities (1 source) Amputated toe of right foot; Translations: [Complete traumatic amputation of one right lesser toe, initial encounter] Chronic Open wounds of extremities (1 source) Amputated toe of left foot; Translations: [Complete traumatic amputation of one left lesser toe, initial encounter] Chronic Other acquired deformities (17 sources) Lumbar spondylolisthesis; Translations: [Spondylolisthesis, lumbar region] Episodic Other aftercare (1 source) Other termite control service representative (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) drug therapy; Translations: [OTH TURN OUT CURRENT DRUG THERAPY] Onset: 03-17-2019 Episodic Other aftercare (20 sources) Wound finding; Translations: [Encounter for other specified aftercare] 11-02-2021 Episodic Other aftercare (20 sources) Surgical follow-up; Translations: [Encounter for follow-up examination after completed treatment for conditions other than malignant neoplasm] 10-08-2021 Episodic Other aftercare (20 sources) Encounter for follow-up examination after completed treatment for conditions other than malignant neoplasm; Translations: [Follow-up examination, following surgery, unspecified] 10-09-2021 Episodic Other and unspecified benign neoplasm (17 sources) History of polyp of colon; Translations: [Personal history of colonic polyps] Episodic Other bone disease and musculoskeletal deformities (19 sources) History of amputation of right foot; Translations: [Acquired absence of other right toe(s)] 12-17-2021 Episodic Other bone disease and musculoskeletal deformities (19 sources) History of amputation of left foot; Translations: [Acquired absence of other left toe(s)] 12-17-2021 Episodic Other bone disease and musculoskeletal deformities (12 sources) Acquired absence of other left toe(s); Translations: [Other toe(s) amputation status] 12-18-2021 Episodic Other bone disease and musculoskeletal deformities (12 sources) Acquired absence of other right toe(s); Translations: [Other toe(s) amputation status] 12-18-2021 Episodic Other connective tissue disease (19 sources) Foot pain; Translations: [Pain in right foot] 12-17-2021 Episodic Other connective tissue disease (8 sources) Pain in right foot; Translations: [Pain in limb] 12-18-2021 Episodic Other hematologic conditions (1 source) Erythrocytosis; Translations: [Secondary polycythemia] 02-12-2023 Episodic Other hematologic conditions (1 source) Secondary polycythemia; 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] 02-09-2023 Episodic Other infections; including parasitic (20 sources) Disorder due to infection; Translations: [Unspecified infectious disease] 11-04-2021 Episodic Other infections; including parasitic (13 sources) Unspecified infectious disease; Translations: [Unspecified infectious and parasitic diseases] 11-09-2021 Episodic Other injuries and conditions due to external causes (20 sources) Local infection of wound; Translations: [Other injury of unspecified body region, initial encounter] 11-04-2021 Episodic Other injuries and conditions due to external causes (20 sources) Hematoma; Translations: [Other injury of unspecified body region, initial encounter] 10-01-2021 Episodic Other injuries and conditions due to external causes (20 sources) Other injury of unspecified body region, initial encounter; Translations: [Contusion of unspecified site] 10-09-2021 Episodic Other nervous system disorders (17 sources) Chronic pain; Translations: [Other chronic pain] Chronic Other nervous system disorders (17 sources) Cubital tunnel syndrome; Translations: [Lesion of ulnar nerve, right upper limb] Chronic Other nervous system disorders (17 sources) Carpal tunnel syndrome; Translations: [Carpal tunnel syndrome, right upper limb] Chronic Other nervous system disorders (17 sources) Nervous system symptoms; Translations: [Other abnormalities of gait and mobility] Episodic Other nervous system disorders (20 sources) Postoperative pain ; Translations: [Other acute postprocedural pain] 05-10-2021 Episodic Other nutritional; endocrine; and metabolic disorders (20 sources) Morbid obesity; Translations: [Morbid (severe) obesity due to excess calories] 12-21-2016 Chronic Other nutritional; endocrine; and metabolic disorders (17 sources) Body mass index 40+ - severely obese; Translations: [Body mass index (BMI) 40.0-44.9, adult] Chronic Other nutritional; endocrine; and metabolic disorders (20 sources) 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; Translations: [Other disorders of plasma-protein metabolism, not elsewhere classified] 10-04-2021 Chronic Other nutritional; endocrine; and metabolic disorders (11 sources) Other disorders of plasma-protein metabolism, not elsewhere classified; Translations: [Other disorders of plasma protein metabolism] 10-09-2021 Chronic Other nutritional; endocrine; and metabolic disorders (20 sources) Morbid (severe) obesity due to excess calories; Translations: [Morbid obesity] 10-09-2021 Chronic Other skin disorders (7 sources) Swelling of lower leg; Translations: [Localized swelling, mass and lump, unspecified lower limb] 11-10-2022 Episodic Other upper respiratory disease (17 sources) Allergic rhinitis; Translations: [Allergic rhinitis, unspecified] Chronic Peripheral and visceral atherosclerosis (20 sources) Peripheral vascular disease, unspecified; Translations: [Atherosclerosis of pamunkey arteries of extremities with rest pain, bilateral legs] Onset: 03-06-2021 Resolved: 11-26-2021 Chronic Residual codes; unclassified (17 sources) Obstructive sleep apnea syndrome; Translations: [Obstructive sleep apnea (adult) (pediatric)] Chronic Residual codes; unclassified (20 sources) Tobacco user; Translations: [Tobacco use] 12-21-2016 Episodic Residual codes; unclassified (17 sources) Postprocedural state finding; Translations: [Other specified postprocedural states] Episodic Residual codes; unclassified (20 sources) Postoperative state; Translations: [Other specified postprocedural states] 05-10-2021 Episodic Residual codes; unclassified (11 sources) Other specified postprocedural states; Translations: [Other postprocedural status] 10-09-2021 Episodic Residual codes; unclassified (11 sources) Tobacco use; Translations: [Tobacco use disorder] 10-09-2021 Episodic Retinal detachments; defects; vascular occlusion; and retinopathy (4 sources) Central retinal vein occlusion with macular edema; Translations: [Central retinal vein occlusion, right eye, with macular edema] Onset: 12-04-2022 12-03-2022 Chronic Skin and subcutaneous tissue infections (20 sources) Cellulitis; Translations: [Cellulitis, unspecified] Onset: 01-28-2023 01-21-2021 Episodic Spondylosis; intervertebral disc disorders; other back problems (20 sources) Degeneration of intervertebral disc; Translations: [Other intervertebral disc degeneration, lumbar region] Chronic Spondylosis; intervertebral disc disorders; other back problems (20 sources) Cervicalgia; Translations: [Spinal stenosis of lumbar region] Onset: 03-14-2019 12-21-2016 Episodic Sprains and strains (20 sources) Strain of muscle, fascia and tendon at neck level, initial encounter; Translations: [Strain of other muscles, fascia and tendons at shoulder and upper arm level, left arm, initial encounter] Onset: 03-17-2019 01-26-2019 Episodic Superficial injury; contusion (20 sources) Contusion of knee; Translations: [Contusion of right knee, initial encounter] 04-18-2020 Episodic Unclassified (1 source) Local infection of the skin and subcutaneous tissue, unspecified; Translations: [Local infection of the skin and subcutaneous tissue, unspecified] Onset: 02-09-2023 Unclassified (1 source) Tachycardia, unspecified; Translations: [Tachycardia, unspecified] Onset: 10-16-2022 Unclassified (1 source) Cellulitis of right lower limb; Translations: [Cellulitis of right lower limb] Onset: 10-15-2022 Unclassified (1 source) Irritant contact dermatitis due friction or contact with other specified body fluids; Translations: [Irritant contact dermatitis due friction or contact with other specified body fluids] Onset: 08-20-2022 Unclassified (1 source) Encounter for other preprocedural examination; Translations: [Encounter for other preprocedural examination] Onset: 07-07-2022 Unclassified (1 source) Cutaneous abscess of left foot; Translations: [Cutaneous abscess of left foot] Onset: 07-01-2022 Past or Other Problems Problem Classification Problem Date Documented Date Episodic/Chronic Other aftercare (1 source) Encounter for surgical aftercare following surgery on the circulatory system Onset: 10-29-2021 Resolved: 10-29-2021 Episodic Other nervous system disorders (1 source) Other acute postprocedural pain Onset: 11-03-2021 Resolved: 11-03-2021 Episodic Unclassified (3 sources) Wound drainage; Translations: [Wound drainage] Results Test Name Value Interpretation Reference Range Facil ity Glucose Glucometer (dC) [M ass/Vol]Ordered By: AUTUMN Mehta on 02-19-2023 Glucose [Mass/Vol] 65 mg/dL [facility] Comment on above: Random Glucose Refer ence Range is dependent on time and content of last meal. Glucose of more than 200 mg/dL in a nonstressed, ambulatory subject supports the diagnosis of Diabetes Mellitus. Glucose Poct Glucometerson 1 04-22-2022 Commemt1 Glu2: Cleaned Meter Normal [facility] Comment on above: Result Comment: PERF ORMED BY: [place] [address] PATHOLOGIST BLOOD BANK MANAGER RITA CONNER M.D. Performed By: #### G LULS #### Point of Care testing , Glucose [Mass/Vol] 65 mg/dL Normal [facility] Comment on above: Result Comment: [place] om Glucose Reference Range is dependent on time and content of last meal. Glucose of more than 200 mg/dL in a nonstressed, ambulatory subject supports the diagnosis of Diabetes Mellitus. Performed By: #### G LULS #### Point of Care testing , Glucose [Mass/Vol] 72 mg/dL Normal [facility] Comment on above: Result Comment: [place] [facility] Glucose Reference Range is dependent on time and content of last meal. Glucose of more than 200 mg/dL in a nonstressed, ambulatory subject supports the diagnosis of Diabetes Mellitus. PERFORMED BY: [place] [phone] PATHOLOGIST BLOOD BANK MANAGER RITA CONNER M.D. Performed By: #### A ERC #### [address] No Panel InformationOrdered By: AUTUMN Mehta on 02-19-2023 Bedside Glucose Comment Glu2: cleaned meter [facility] Basic Metabolic Panelon 11-2 Anion gap [Moles/Vol] 8.5 mmol/L Normal 6.0-15.0 [facility] Comment on above: Performed By: #### G LULS #### Point of Care testing , Calcium [Mass/Vol] 8.3 mg/dL Low 8.6-10.3 [facility] Comment on above: Result Comment: PERF ORMED BY: [place] [address] PATHOLOGIST BLOOD BANK MANAGER RITA CONNER M.D. Performed By: #### G LULS #### Point of Care testing , Chloride [Moles/Vol] 106 mmol/L Normal 98-107 [facility] Comment on above: Performed By: #### G LULS #### Point of Care testing , CO2 [Moles/Vol] 30.7 mmol/L Normal 21.0-31.0 [facility] Comment on above: Performed By: #### G LULS #### Point of Care testing , Creatinine [Mass/Vol] 0.89 mg/dL Normal 0.60-1.20 [facility] Comment on above: Performed By: #### G LULS #### Point of Care testing , GFR/1.73 sq M.predicted MDRD (S/P/Bld) [Vol rate/Area] mL/min/{1.73_m2} Normal [facility] Comment on above: Performed By: #### G LULS #### Point of Care testing , Glucose [Mass/Vol] 67 mg/dL Low 70-100 [facility] Comment on above: Result Comment: [facility] Glucose Reference Range is dependent on time and content of last meal. Glucose of more than 200 mg/dL in a nonstressed, ambulatory subject supports the diagnosis of Diabetes Mellitus. ADA recommended reference range Performed By: #### G LULS #### Point of Care testing , Potassium [Moles/Vol] 4.2 mmol/L Normal 3.5-5.1 [facility] Comment on above: Performed By: #### G LULS #### Point of Care testing , Sodium [Moles/Vol] 141 mmol/L Normal 136-145 [facility] Comment on above: Performed By: #### G LULS #### Point of Care testing , Urea nitrogen [Mass/Vol] 10 mg/dL Normal 7-25 [facility] Comment on above: Performed By: #### G LULS #### Point of Care testing , Calcium [Mass/volume] in Ser um or PlasmaOrdered By: Rolando Sykes on 02-09-2023 Calcium [Mass/Vol] 8.3 mg/dL 8.6-10.3 [facility] Carbon dioxide, total [Moles /volume] in Serum or PlasmaOrdered By: Rolando Sykes on 02-09-2023 CO2 [Moles/Vol] 30.7 mmol/L 21.0-31.0 [facility] Chloride [Moles/volume] in S jamshid or PlasmaOrdered By: Rolando Sykes on 02-09-2023 Chloride [Moles/Vol] 106 mmol/L 98-107 [facility] Creatinine [Mass/volume] in Serum or PlasmaOrdered By: Rolando Sykes on 02-09-2023 Creatinine [Mass/Vol] 0.89 mg/dL 0.60-1.20 [facility] Glucose [Mass/volume] in Ser um or PlasmaOrdered By: Rolando Sykes on 02-09-2023 Glucose [Mass/Vol] 67 mg/dL 70-100 [facility] Comment on above: ADA recommended refe rence rangeRandom Glucose Reference Range is dependent on time and content of last meal. Glucose of more than 200 mg/dL in a nonstressed, ambulatory subject supports the diagnosis of Diabetes Mellitus. No Panel InformationOrdered By: Rolando Sykes on 02-09-2023 Estimated GFR (CKD-EPI) > 60.0 mL/Min [facility] Creatinine Clearanc e (Chem N/A [facility] Potassium [Moles/volume] in Serum or PlasmaOrdered By: Rolando Sykes on 02-09-2023 Potassium [Moles/Vol] 4.2 mmol/L 3.5-5.1 [facility] Serum or plasma anion gap de terminationOrdered By: Rolando Sykes on 02-09-2023 Anion gap [Moles/Vol] 8.5 mmol/L 6.0-15.0 [facility] Serum or plasma trough vanco mycin levelOrdered By: Zaid Mon on 02-09-2023 Vancomycin trough [Mass/Vol] 17.9 ug/mL 10.0-20 .0 [facility] Comment on above: Last dose: - Sodium [Moles/volume] in Ser um or PlasmaOrdered By: Rolando Sykes on 02-09-2023 Sodium [Moles/Vol] 141 mmol/L 136-145 [facility] Urea nitrogen [Mass/volume] in Serum or PlasmaOrdered By: Rolando Sykes on 02-09-2023 Urea nitrogen [Mass/Vol] 10 mg/dL 7-25 [facility] Vancomycin,Troughon 02-10-20 23 Vancomycin,Trough 17.9 ug/mL Normal 10.0-20.0 [facility] Comment on above: Order Comment: Reaso n for Exam Infection of left foot Result Comment: Last dose: - PERFORMED BY: [place] [address] PATHOLOGIST BLOOD BANK MANAGER RITA CONNER M.D. Performed By: #### V ANCT #### [address] Automated basophil %Ordered By: Casa Givens on 02-02-2023 Basophils/100 WBC (Bld) 0.8 % Normal . [facility] Comment on above: Performed By: #### G LULS #### Point of Care testing , Automated basophil countOrde red By: Casa Givens on 02-02-2023 Basophils (Bld) [#/Vol] 0.1 10*3/uL Normal 0.0-0.2 [facility] Comment on above: Result Comment: PERF ORMED BY: [place] [address] PATHOLOGIST BLOOD BANK MANAGER RITA CONNER M.D. Performed By: #### G LULS #### Point of Care testing , Automated blood monocyte cou ntOrdered By: Casa Givens on 02-02-2023 Monocytes (Bld) [#/Vol] 0.9 10*3/uL High 0.0-0.8 [facility] Comment on above: Performed By: #### G LULS #### Point of Care testing , Automated eosinophil %Ordere d By: Casa Givens on 02-02-2023 Eosinophils/100 WBC (Bld) 3.0 % Normal . [facility] Comment on above: Performed By: #### G LULS #### Point of Care testing , Automated eosinophil countOr dered By: Casa Givens on 02-02-2023 Eosinophils (Bld) [#/Vol] 0.4 10*3/uL Normal 0.0-0.45 [facility] Comment on above: Performed By: #### G LULS #### Point of Care testing , Automated monocyte %Ordered By: Casa Givens on 02-02-2023 Monocytes/100 WBC (Bld) 7.3 % Normal . [facility] Comment on above: Performed By: #### G LULS #### Point of Care testing , Automated neutrophil %Ordere d By: Casa Givens on 02-02-2023 Neutrophils/100 WBC (Bld) 70.4 % Normal . [facility] Comment on above: Performed By: #### G LULS #### Point of Care testing , Basic Metabolic Panelon 01-14 Creatinine Clr Calc Pharmacy 79.39 Normal [facility] Comment on above: Result Comment: PERF ORMED BY: [facility] [address] [place] [address] PATHOLOGIST BLOOD BANK MANAGER RITA CONNER M.D. Performed By: #### G LULS #### Point of Care testing , GFR/1.73 sq M.predicted MDRD (S/P/Bld) [Vol rate/Area] mL/min/{1.73_m2} Normal [facility] Comment on above: Performed By: #### G LULS #### Point of Care testing , Calcium [Mass/volume] in Ser um or PlasmaOrdered By: Casa Givens on 02-02-2023 Calcium [Mass/Vol] 8.7 mg/dL Normal 8.6-10.3 [facility] Comment on above: Performed By: #### G LULS #### Point of Care testing , Carbon dioxide, total [Moles /volume] in Serum or PlasmaOrdered By: Casa Givens on 02-02-2023 CO2 [Moles/Vol] 30.1 mmol/L Normal 21.0-31.0 [facility] Comment on above: Performed By: #### G LULS #### Point of Care testing , Chloride [Moles/volume] in S jamshid or PlasmaOrdered By: Casa Givens on 02-02-2023 Chloride [Moles/Vol] 101 mmol/L Normal 98-107 [facility] Comment on above: Performed By: #### G KAN #### Point of Care testing , Complete Blood Count Auto Di ffon 02-02-2023 Mean Corpuscular HGB Conc 32.5 g/dL Normal 32.0-35.0 [facility] Comment on above: Performed By: #### G KAN #### Point of Care testing , NRBC% 0.1 /100{WBC} Normal 0-0.5 [facility] Comment on above: Performed By: #### G KAN #### Point of Care testing , Creatinine [Mass/volume] in Serum or PlasmaOrdered By: Casa Givens on 02-02-2023 Creatinine [Mass/Vol] 0.98 mg/dL Normal 0.60-1.20 [facility] Comment on above: Performed By: #### G ELBALS #### Point of Care testing , Erythrocyte distribution wid th [Ratio] by Automated countOrdered By: Casa Givens on 02-02-2023 Erythrocyte distribution wid th (RBC) [Ratio] 13.9 % Normal 11.9-15.3 [facility] Comment on above: Performed By: #### G KAN #### Point of Care testing , Erythrocytes [#/volume] in B lood by Automated countOrdered By: Casa Givens on 02-02-2023 RBC (Bld) [#/Vol] 4.44 10*6/uL Normal 3.60-5.00 [facility] Comment on above: Performed By: #### G LUNATHALIE #### Point of Care testing , Glucose Glucometer (BldC) [M ass/Vol]Ordered By: Ryland Liu on 02-02-2023 Glucose [Mass/Vol] 124 mg/dL [facility] Comment on above: Random Glucose Refer ence Range is dependent on time and content of last meal. Glucose of more than 200 mg/dL in a nonstressed, ambulatory subject supports the diagnosis of Diabetes Mellitus. Glucose Poct Glucometerson 1 04-04-2022 Commemt1 Glu2: Cleaned Meter Normal [facility] Comment on above: Result Comment: PERF ORMED BY: [facility] [address] [place] [address] PATHOLOGIST BLOOD BANK MANAGER RITA CONNER M.D. Performed By: #### G LULS #### Point of Care testing , Glucose [Mass/Vol] 124 mg/dL Normal [facility] Comment on above: Result Comment: [place] [facility] Glucose Reference Range is dependent on time and content of last meal. Glucose of more than 200 mg/dL in a nonstressed, ambulatory subject supports the diagnosis of Diabetes Mellitus. Performed By: #### G LULS #### Point of Care testing , Commemt1 Glu2: Cleaned Meter Normal [facility] Comment on above: Result Comment: PERF ORMED BY: [facility] [address] [address] PATHOLOGIST BLOOD BANK MANAGER RITA CONNER M.D. Performed By: #### G LULS #### Point of Care testing , Glucose [Mass/Vol] 150 mg/dL Normal [facility] Comment on above: Result Comment: [place] [facility] Glucose Reference Range is dependent on time and content of last meal. Glucose of more than 200 mg/dL in a nonstressed, ambulatory subject supports the diagnosis of Diabetes Mellitus. Performed By: #### G LULS #### Point of Care testing , Glucose [Mass/volume] in Ser um or PlasmaOrdered By: Casa Givens on 02-02-2023 Glucose [Mass/Vol] 153 mg/dL High 70-100 [facility] Comment on above: ADA recommended refe rence rangeRandom Glucose Reference Range is dependent on time and content of last meal. Glucose of more than 200 mg/dL in a nonstressed, ambulatory subject supports the diagnosis of Diabetes Mellitus. Result Comment: [place] [facility] Glucose Reference Range is dependent on time and content of last meal. Glucose of more than 200 mg/dL in a nonstressed, ambulatory subject supports the diagnosis of Diabetes Mellitus. ADA recommended reference range Performed By: #### G LULS #### Point of Care testing , Hematocrit [Volume Fraction] of Blood by Automated countOrdered By: Casa Givens on 02-02-2023 Hematocrit (Bld) [Volume fraction] 41.9 % Normal 34.0-46.4 [facility] Comment on above: Performed By: #### G ELBALS #### Point of Care testing , Hemoglobin [Mass/volume] in BloodOrdered By: Casa Givens on 02-02-2023 Hemoglobin (Bld) [Mass/Vol] 13.6 g/dL Normal 11.8-15. 4 [facility] Comment on above: Performed By: #### G LULS #### Point of Care testing , Leukocytes [#/volume] correc marquez for nucleated erythrocytes in Blood by Automated counOrdered By: Casa Givens on 02-02-2023 WBC corrected for nucl RBC A uto (Bld) [#/Vol] 13.0 10*3/uL 3.8-11.6 [facility] Leukocytes [#/volume] in Blo od by Automated countOrdered By: Casa Givens on 02-02-2023 WBC (Bld) [#/Vol] 13.0 10*3/uL High 3.8-11.6 [facility] Comment on above: Performed By: #### G ELBALS #### Point of Care testing , Lymphocytes [#/volume] in Bl ood by Automated countOrdered By: Casa Givens on 02-02-2023 Lymphocytes (Bld) [#/Vol] 2.4 10*3/uL Normal 1.00-4.8 [facility] Comment on above: Performed By: #### G ELBALS #### Point of Care testing , Lymphocytes/100 leukocytes i n Blood by Automated countOrdered By: Casa Givens on 02-02-2023 Lymphocytes/100 WBC (Bld) 18.5 % Normal . [facility] Comment on above: Performed By: #### G ELBALS #### Point of Care testing , MCH [Entitic mass] by Automa marquez countOrdered By: Casa Givens on 02-02-2023 MCH (RBC) [Entitic mass] 30.7 pg Normal 24.7-34.3 [facility] Comment on above: Performed By: #### G ELBALS #### Point of Care testing , MCHC Auto (RBC) [Mass/Vol]Or dered By: Casa Givens on 02-02-2023 MCHC (RBC) [Mass/Vol] 32.5 g/dL 32.0-35.0 [facility] MCV [Entitic volume] by Auto mated countOrdered By: Casa Givens on 02-02-2023 MCV (RBC) [Entitic vol] 94.4 fL Normal 80-100 [facility] Comment on above: Performed By: #### G LULS #### Point of Care testing , Neutrophils [#/volume] in Bl ood by Automated countOrdered By: Casa Givens on 02-02-2023 Neutrophils (Bld) [#/Vol] 9.1 10*3/uL High 1.8-7.7 [facility] Comment on above: Performed By: #### G LULS #### Point of Care testing , No Panel InformationOrdered By: Ryland Liu on 02-02-2023 Bedside Glucose Comment Glu2: cleaned meter [facility] No Panel InformationOrdered By: Casa Givens on 02-02-2023 Estimated GFR (CKD-EPI) > 60.0 mL/Min [facility] Creatinine Clearanc e (Chem 79.39 [facility] Nucleated erythrocytes [Pres ence] in Blood by Automated countOrdered By: Casa Givens on 02-02-2023 Nucleated RBC Auto Ql (Bld) 0.1 /100{WBC} 0-0.5 [facility] Platelet mean volume [Entiti c volume] in Blood by Automated countOrdered By: Casa Givens on 02-02-2023 Platelet mean volume (Bld) [Entitic vol] 7.3 fL Normal 6.3-10.7 [facility] Comment on above: Performed By: #### G LULS #### Point of Care testing , Platelets [#/volume] in Bloo d by Automated countOrdered By: Casa Givens on 02-02-2023 Platelets (Bld) [#/Vol] 262 10*3/uL Normal 150-450 [facility] Comment on above: Performed By: #### G LULS #### Point of Care testing , Potassium [Moles/volume] in Serum or PlasmaOrdered By: Casa Givens on 02-02-2023 Potassium [Moles/Vol] 3.6 mmol/L Normal 3.5-5.1 [facility] Comment on above: Performed By: #### G LULS #### Point of Care testing , Serum or plasma anion gap de terminationOrdered By: Casa Givens on 02-02-2023 Anion gap [Moles/Vol] 11.5 mmol/L Normal 6.0-15.0 [facility] Comment on above: Performed By: #### G LULS #### Point of Care testing , Serum or plasma trough vanco mycin levelOrdered By: Casa Givens on 02-02-2023 Vancomycin trough [Mass/Vol] 15.7 ug/mL 10.0-20 .0 [facility] Comment on above: Last dose: - Sodium [Moles/volume] in Ser um or PlasmaOrdered By: Casa Givens on 02-02-2023 Sodium [Moles/Vol] 139 mmol/L Normal 136-145 [facility] Comment on above: Performed By: #### G LULS #### Point of Care testing , Urea nitrogen [Mass/volume] in Serum or PlasmaOrdered By: Casa Givens on 02-02-2023 Urea nitrogen [Mass/Vol] 8 mg/dL Normal 7-25 [facility] Comment on above: Performed By: #### G LULS #### Point of Care testing , Vancomycin,Troughon 02-03-20 23 Vancomycin,Trough 15.7 ug/mL Normal 10.0-20.0 [facility] Comment on above: Result Comment: Last dose: - PERFORMED BY: [facility] [address] [place] [address] PATHOLOGIST BLOOD BANK MANAGER RITA CONNER M.D. Performed By: #### G LULS #### Point of Care testing , Aerobic Cultureon 02-01-2023 Aerobic Culture Comment second toe a mputation site No Growth 2 Days Comment second toe amputation site No Anaerobes Isolated 3 Days Comment second toe amputation site Gram Stain Result No Bacteria Seen PERFORMED BY: [facility] [address] [place] [address] PATHOLOGIST BLOOD BANK MANAGER RITA CONNER M.D. [facility] Comment on above: Performed By: #### A ERC #### [facility] [address] [place] [address] [facility] Aerobic cultureOrdered By: C WS Ayan Law [place] on 02-01-2023 Bacteria identified Aer cx N om (Unsp spec) No Growth 2 Days [facility] Anaerobic cultureOrdered By: CWS Ayan S [place] on 02-01-2023 Bacteria identified Anaer cx Nom (Unsp spec) No Anaerobes Isolated 3 Days [facility] Basic Metabolic Panelon 01-14 Anion gap [Moles/Vol] 11.1 mmol/L Normal 6.0-15.0 [facility] Comment on above: Performed By: #### G LULS #### Point of Care testing , Calcium [Mass/Vol] 8.5 mg/dL Low 8.6-10.3 [facility] Comment on above: Performed By: #### G LULS #### Point of Care testing , Chloride [Moles/Vol] 102 mmol/L Normal 98-107 [facility] Comment on above: Performed By: #### G LULS #### Point of Care testing , CO2 [Moles/Vol] 29.2 mmol/L Normal 21.0-31.0 [facility] Comment on above: Performed By: #### G LULS #### Point of Care testing , Creatinine [Mass/Vol] 1.07 mg/dL Normal 0.60-1.20 [facility] Comment on above: Performed By: #### G LULS #### Point of Care testing , Creatinine Clr Calc Pharmacy 72.71 [facility] Comment on above: Result Comment: PERF ORMED BY: [facility] [address] [facility] [place] [address] PATHOLOGIST BLOOD BANK MANAGER RITA CONNER M.D. Performed By: #### G LULS #### Point of Care testing , GFR/1.73 sq M.predicted MDRD (S/P/Bld) [Vol rate/Area] mL/min/{1.73_m2} Normal [facility] Comment on above: Performed By: #### G LULS #### Point of Care testing , Glucose [Mass/Vol] 114 mg/dL High 70-100 [facility] [facility] Comment on above: Result Comment: [facility] Glucose Reference Range is dependent on time and content of last meal. Glucose of more than 200 mg/dL in a nonstressed, ambulatory subject supports the diagnosis of Diabetes Mellitus. ADA recommended reference range Performed By: #### G LULS #### Point of Care testing , Potassium [Moles/Vol] 4.3 mmol/L Normal 3.5-5.1 [facility] Comment on above: Performed By: #### G LULS #### Point of Care testing , Sodium [Moles/Vol] 138 mmol/L Normal 136-145 [facility] Comment on above: Performed By: #### G LULS #### Point of Care testing , Urea nitrogen [Mass/Vol] 8 mg/dL Normal 7-25 [facility] Comment on above: Performed By: #### G LULS #### Point of Care testing , Clostridioides difficile tox in B tcdB gene [Presence] in Stool by NADINE with probe deteOrdered By: Adithya mR on 02-01-2023 C. difficile toxin B tcdB ge ne NADINE+probe Ql (Stl) Negative Negative [facility] Comment on above: Testing performed by RT-PCR Clostridium Difficileon 01-14 Clostridium Difficile Negative Normal Negative [facility] Comment on above: Order Comment: > or = to 3 loose/watery stools in the last 24 HRS? Y Is patient on promotility agents or tube feeding? N Result Comment: Test ing performed by RT-PCR PERFORMED BY: [address] [address] PATHOLOGIST BLOOD BANK MANAGER RITA CONNER M.D. Performed By: #### C DT #### [address] [place] [address] [facility] Complete Blood Count Auto Di ffon 02-01-2023 Basophils (Bld) [#/Vol] 0.1 10*3/uL Normal 0.0-0.2 [facility] Comment on above: Result Comment: PERF ORMED BY: [address] [place] [address] PATHOLOGIST BLOOD BANK MANAGER RITA CONNER M.D. Performed By: #### G LULS #### Point of Care testing , Basophils/100 WBC (Bld) 0.8 % Normal . [facility] Comment on above: Performed By: #### G LULS #### Point of Care testing , Eosinophils (Bld) [#/Vol] 0.3 10*3/uL Normal 0.0-0.45 [facility] Comment on above: Performed By: #### G LULS #### Point of Care testing , Eosinophils/100 WBC (Bld) 2.8 % Normal . [facility] Comment on above: Performed By: #### G LULS #### Point of Care testing , Erythrocyte distribution wid th (RBC) [Ratio] 14.3 % Normal 11.9-15.3 [facility] Comment on above: Performed By: #### G LULS #### Point of Care testing , Hematocrit (Bld) [Volume fraction] 43.7 % Normal 34.0-46.4 [facility] Comment on above: Performed By: #### G LULS #### Point of Care testing , Hemoglobin (Bld) [Mass/Vol] 14.3 g/dL Normal 11.8-15. 4 [facility] Comment on above: Performed By: #### G LULS #### Point of Care testing , Lymphocytes (Bld) [#/Vol] 2.9 10*3/uL Normal 1.00-4.8 [facility] Comment on above: Performed By: #### G LULS #### Point of Care testing , Lymphocytes/100 WBC (Bld) 25.2 % Normal . [facility] Comment on above: Performed By: #### G LULS #### Point of Care testing , MCH (RBC) [Entitic mass] 30.9 pg Normal 24.7-34.3 [facility] Comment on above: Performed By: #### G ELBALS #### Point of Care testing , MCV (RBC) [Entitic vol] 94.8 fL Normal 80-100 [facility] Comment on above: Performed By: #### G ELBALS #### Point of Care testing , Mean Corpuscular HGB Conc 32.6 g/dL Normal 32.0-35.0 [facility] Comment on above: Performed By: #### G ELBALS #### Point of Care testing , Monocytes (Bld) [#/Vol] 0.9 10*3/uL High 0.0-0.8 [facility] Comment on above: Performed By: #### G ELBALS #### Point of Care testing , Monocytes/100 WBC (Bld) 8.2 % Normal . [facility] Comment on above: Performed By: #### G ELBALS #### Point of Care testing , Neutrophils (Bld) [#/Vol] 7.2 10*3/uL Normal 1.8-7.7 [facility] Comment on above: Performed By: #### G ELBALS #### Point of Care testing , Neutrophils/100 WBC (Bld) 63.0 % Normal . [facility] Comment on above: Performed By: #### G KAN #### Point of Care testing , NRBC% 0.1 /100{WBC} Normal 0-0.5 [facility] Comment on above: Performed By: #### G KAN #### Point of Care testing , Platelet mean volume (Bld) [Entitic vol] 7.2 fL Normal 6.3-10.7 [facility] Comment on above: Performed By: #### G ELBALS #### Point of Care testing , Platelets (Bld) [#/Vol] 273 10*3/uL Normal 150-450 [facility] Comment on above: Performed By: #### G ELBALS #### Point of Care testing , RBC (Bld) [#/Vol] 4.61 10*6/uL Normal 3.60-5.00 [facility] Comment on above: Performed By: #### G LULS #### Point of Care testing , WBC (Bld) [#/Vol] 11.5 10*3/uL Normal 3.8-11.6 [facility] Comment on above: Performed By: #### G LULS #### Point of Care testing , ECG 12 lead ECGon 02-01-2023 ECG 12 lead ECG [facility] Main [address] [address] Electrocardiograph Report Signed Patient: Ema Neff MR#: [id number] 15 : 1965 Acct:[id number] Age/Sex: 58 / F ADM Date: 01/28/23 Loc: Room: [address] [place] [address] Type: DIS IN Attending Dr: Ryland Liu MD Ordering Provider: Jaydon Rhodes MD Date of Service: 02/01/23 ECG/ECG 12 lead ECG: surgery Copies to: Test Reason : Blood Pressure : / mmHG Vent. Rate : 063 BPM Atrial Rate : 063 BPM P-R Int : 194 ms QRS Dur : 094 ms QT Int : 416 ms P-R-T Axes : 054 044 051 degrees QTc Int : 425 ms Normal sinus rhythm Normal ECG When compared with ECG of 07-JUL-2022 10:16, Vent. rate has decreased BY 33 BPM Confirmed by JARVIS GALINDO DO ([id number]) on 02/02/2023 6:58:12 PM Referred By: Electronically Signed By:JARVIS GALINDO DO Transcribed By: MUS Signed By Jarvis Galindo DO 02/02 1828 Normal [facility] Glucose Poct Glucometerson 1 04-03-2022 Commemt1 Glu2: Cleaned Meter Normal [facility] Comment on above: Result Comment: PERF ORMED BY: [place] [address] PATHOLOGIST BLOOD BANK MANAGER RITA CONNER M.D. Performed By: #### G LULS #### Point of Care testing , Glucose [Mass/Vol] 220 mg/dL Normal [facility] Comment on above: Result Comment: [place] [facility] Glucose Reference Range is dependent on time and content of last meal. Glucose of more than 200 mg/dL in a nonstressed, ambulatory subject supports the diagnosis of Diabetes Mellitus. Performed By: #### G LULS #### Point of Care testing , Glucose [Mass/Vol] 114 mg/dL Normal [facility] Comment on above: Result Comment: [place] [facility] Glucose Reference Range is dependent on time and content of last meal. Glucose of more than 200 mg/dL in a nonstressed, ambulatory subject supports the diagnosis of Diabetes Mellitus. PERFORMED BY: [address] [place] [address] PATHOLOGIST BLOOD BANK MANAGER RIAT CONNER M.D. Performed By: #### G LULS #### Point of Care testing , Glucose [Mass/Vol] 118 mg/dL Normal [facility] Comment on above: Result Comment: [place] Glucose Reference Range is dependent on time and content of last meal. Glucose of more than 200 mg/dL in a nonstressed, ambulatory subject supports the diagnosis of Diabetes Mellitus. PERFORMED BY: [address] [place] [address] PATHOLOGIST BLOOD BANK MANAGER RITA CONNER M.D. Performed By: #### G LULS #### Point of Care testing , Glucose [Mass/Vol] 111 mg/dL Normal [facility] Comment on above: Result Comment: [place] Glucose Reference Range is dependent on time and content of last meal. Glucose of more than 200 mg/dL in a nonstressed, ambulatory subject supports the diagnosis of Diabetes Mellitus. PERFORMED BY: [facility] [address] [facility] [place] [address] PATHOLOGIST BLOOD BANK MANAGER RITA CONNER M.D. Performed By: #### G LULS #### Point of Care testing , Glucose [Mass/Vol] 148 mg/dL Normal [facility] Comment on above: Result Comment: [place] Glucose Reference Range is dependent on time and content of last meal. Glucose of more than 200 mg/dL in a nonstressed, ambulatory subject supports the diagnosis of Diabetes Mellitus. PERFORMED BY: [place] [address] PATHOLOGIST BLOOD BANK MANAGER RITA CONNER M.D. Performed By: #### G KAN #### Point of Care testing , Glucose [Mass/Vol] 114 mg/dL Normal [facility] Comment on above: Result Comment: [facility] Glucose Reference Range is dependent on time and content of last meal. Glucose of more than 200 mg/dL in a nonstressed, ambulatory subject supports the diagnosis of Diabetes Mellitus. PERFORMED BY: [place] [address] PATHOLOGIST BLOOD BANK MANAGER RITA CONNER M.D. Performed By: #### A ERC #### [facility] [address] [place] [address] [facility] Gram stain for investigation of transfusion reactionOrdered By: AUTUMN Deluna on 02-01-2023 Microscopic observation Gram stain Nom (Unsp spec) [facility] Vancomycin [Mass/volume] in Serum or Plasma --peakOrdered By: Casa Givens on 02-01-2023 Vancomycin peak [Mass/Vol] 25.9 ug/mL 20.0-40.0 [facility] Comment on above: Last dose: - Vancomycin,Peakon 02-01-2023 Vancomycin,Peak 25.9 ug/mL Normal 20.0-40.0 [facility] Comment on above: Order Comment: Comme nt ?DRAW 1 HOUR AFTER INFUSION COMPLETES Date of last dose?: 20230201 Time of last dose?: 1829 Result Comment: Last dose: - PERFORMED BY: [address] [address] PATHOLOGIST BLOOD BANK MANAGER RITA CONNER M.D. Performed By: #### A ERC #### [address] [address] [facility] Basic Metabolic Panelon 01-13 Anion gap [Moles/Vol] 9.6 mmol/L Normal 6.0-15.0 [facility] Comment on above: Performed By: #### G LULS #### Point of Care testing , Calcium [Mass/Vol] 8.6 mg/dL Normal 8.6-10.3 [facility] Comment on above: Performed By: #### G LULS #### Point of Care testing , Chloride [Moles/Vol] 104 mmol/L Normal 98-107 [facility] Comment on above: Performed By: #### G LULS #### Point of Care testing , CO2 [Moles/Vol] 29.8 mmol/L Normal 21.0-31.0 [facility] Comment on above: Performed By: #### G LULS #### Point of Care testing , Creatinine [Mass/Vol] 1.23 mg/dL High 0.60-1.20 [facility] Comment on above: Performed By: #### G LULS #### Point of Care testing , Creatinine Clr Calc Pharmacy 63.09 [facility] Comment on above: Result Comment: PERF ORMED BY: [facility] [address] [place] [address] PATHOLOGIST BLOOD BANK MANAGER RITA CONNER M.D. Performed By: #### G LULS #### Point of Care testing , GFR/1.73 sq M.predicted MDRD (S/P/Bld) [Vol rate/Area] 51.255 mL/min/{1.73_m2} [facility] Comment on above: Performed By: #### G LULS #### Point of Care testing , Glucose [Mass/Vol] 98 mg/dL Normal 70-100 [facility] Comment on above: Result Comment: [place] Glucose Reference Range is dependent on time and content of last meal. Glucose of more than 200 mg/dL in a nonstressed, ambulatory subject supports the diagnosis of Diabetes Mellitus. ADA recommended reference range Performed By: #### G LULS #### Point of Care testing , Potassium [Moles/Vol] 4.4 mmol/L Normal 3.5-5.1 [facility] Comment on above: Performed By: #### G LULS #### Point of Care testing , Sodium [Moles/Vol] 139 mmol/L Normal 136-145 [facility] Comment on above: Performed By: #### G ELBALS #### Point of Care testing , Urea nitrogen [Mass/Vol] 11 mg/dL Normal 7-25 [facility] Comment on above: Performed By: #### G ELBALS #### Point of Care testing , Complete Blood Count Auto Di ffon 01-31-2023 Basophils (Bld) [#/Vol] 0.1 10*3/uL Normal 0.0-0.2 [facility] Comment on above: Result Comment: PERF ORMED BY: [facility] [address] [place] [address] PATHOLOGIST BLOOD BANK MANAGER RITA CONNER M.D. Performed By: #### G ELBALS #### Point of Care testing , Basophils/100 WBC (Bld) 0.6 % Normal . [facility] Comment on above: Performed By: #### G ELBALS #### Point of Care testing , Eosinophils (Bld) [#/Vol] 0.2 10*3/uL Normal 0.0-0.45 [facility] Comment on above: Performed By: #### G ELBALS #### Point of Care testing , Eosinophils/100 WBC (Bld) 1.9 % Normal . [facility] Comment on above: Performed By: #### G ELBALS #### Point of Care testing , Erythrocyte distribution wid th (RBC) [Ratio] 14.4 % Normal 11.9-15.3 [facility] Comment on above: Performed By: #### G ELBALS #### Point of Care testing , Hematocrit (Bld) [Volume fraction] 44.8 % Normal 34.0-46.4 [facility] Comment on above: Performed By: #### G ELBALS #### Point of Care testing , Hemoglobin (Bld) [Mass/Vol] 14.6 g/dL Normal 11.8-15. 4 [facility] Comment on above: Performed By: #### G ELBALS #### Point of Care testing , Lymphocytes (Bld) [#/Vol] 2.9 10*3/uL Normal 1.00-4.8 [facility] Comment on above: Performed By: #### G LULS #### Point of Care testing , Lymphocytes/100 WBC (Bld) 25.4 % Normal . [facility] Comment on above: Performed By: #### G LULS #### Point of Care testing , MCH (RBC) [Entitic mass] 30.8 pg Normal 24.7-34.3 [facility] Comment on above: Performed By: #### G LULS #### Point of Care testing , MCV (RBC) [Entitic vol] 94.4 fL Normal 80-100 [facility] Comment on above: Performed By: #### G LULS #### Point of Care testing , Mean Corpuscular HGB Conc 32.6 g/dL Normal 32.0-35.0 [facility] Comment on above: Performed By: #### G LULS #### Point of Care testing , Monocytes (Bld) [#/Vol] 0.9 10*3/uL High 0.0-0.8 [facility] Comment on above: Performed By: #### G LULS #### Point of Care testing , Monocytes/100 WBC (Bld) 7.5 % Normal . [facility] Comment on above: Performed By: #### G LULS #### Point of Care testing , Neutrophils (Bld) [#/Vol] 7.3 10*3/uL Normal 1.8-7.7 [facility] Comment on above: Performed By: #### G LULS #### Point of Care testing , Neutrophils/100 WBC (Bld) 64.6 % Normal . [facility] Comment on above: Performed By: #### G LULS #### Point of Care testing , NRBC% 0.1 /100{WBC} Normal 0-0.5 [facility] Comment on above: Performed By: #### G LULS #### Point of Care testing , Platelet mean volume (Bld) [Entitic vol] 7.1 fL Normal 6.3-10.7 [facility] Comment on above: Performed By: #### G LULS #### Point of Care testing , Platelets (Bld) [#/Vol] 282 10*3/uL Normal 150-450 [facility] Comment on above: Performed By: #### G LULS #### Point of Care testing , RBC (Bld) [#/Vol] 4.75 10*6/uL Normal 3.60-5.00 [facility] Comment on above: Performed By: #### G LULS #### Point of Care testing , WBC (Bld) [#/Vol] 11.3 10*3/uL Normal 3.8-11.6 [facility] Comment on above: Performed By: #### G LULS #### Point of Care testing , Glucose Poct Glucometerson 1 04-02-2022 Glucose [Mass/Vol] 149 mg/dL Normal [facility] Comment on above: Result Comment: [facility] Glucose Reference Range is dependent on time and content of last meal. Glucose of more than 200 mg/dL in a nonstressed, ambulatory subject supports the diagnosis of Diabetes Mellitus. PERFORMED BY: [facility] [address] [place] [id number] PATHOLOGIST BLOOD BANK MANAGER RTIA CONNER M.D. Performed By: #### G LULS #### Point of Care testing , Glucose [Mass/Vol] 102 mg/dL Normal [facility] Comment on above: Result Comment: [facility] Glucose Reference Range is dependent on time and content of last meal. Glucose of more than 200 mg/dL in a nonstressed, ambulatory subject supports the diagnosis of Diabetes Mellitus. PERFORMED BY: [facility] [address] [facility] [place] [address] PATHOLOGIST BLOOD BANK MANAGER RITA CONNER M.D. Performed By: #### G LULS #### Point of Care testing , Glucose [Mass/Vol] 129 mg/dL Normal [facility] Comment on above: Result Comment: [facility] Glucose Reference Range is dependent on time and content of last meal. Glucose of more than 200 mg/dL in a nonstressed, ambulatory subject supports the diagnosis of Diabetes Mellitus. PERFORMED BY: [facility] [address] [place] [address] PATHOLOGIST BLOOD BANK MANAGER RITA CONNER M.D. Performed By: #### G LULS #### Point of Care testing , Commemt1 Glu2: Cleaned Meter Normal [facility] Comment on above: Result Comment: PERF ORMED BY: [facility] [address] [place] [address] PATHOLOGIST BLOOD BANK MANAGER RITA CONNER M.D. Performed By: #### G LULS #### Point of Care testing , Glucose [Mass/Vol] 115 mg/dL Normal [facility] Comment on above: Result Comment: [facility] Glucose Reference Range is dependent on time and content of last meal. Glucose of more than 200 mg/dL in a nonstressed, ambulatory subject supports the diagnosis of Diabetes Mellitus. Performed By: #### G LULS #### Point of Care testing , Basic Metabolic Panelon 01-13 Anion gap [Moles/Vol] 8.3 mmol/L Normal 6.0-15.0 [facility] Comment on above: Performed By: #### E PO #### [facility] , Calcium [Mass/Vol] 8.7 mg/dL Normal 8.6-10.3 [facility] Comment on above: Performed By: #### E PO #### [facility] , Chloride [Moles/Vol] 103 mmol/L Normal 98-107 [facility] Comment on above: Performed By: #### E PO #### [facility] , CO2 [Moles/Vol] 32.2 mmol/L High 21.0-31.0 [facility] Comment on above: Performed By: #### E PO #### [facility] , Creatinine [Mass/Vol] 1.41 mg/dL High 0.60-1.20 [facility] Comment on above: Performed By: #### E PO #### [facility] , Creatinine Clr Calc Pharmacy 55.04 [facility] Comment on above: Result Comment: PERF ORMED BY: [facility] [place] [address] PATHOLOGIST BLOOD BANK MANAGER RITA CONNER M.D. Performed By: #### E PO #### [facility] , GFR/1.73 sq M.predicted MDRD (S/P/Bld) [Vol rate/Area] 43.507 mL/min/{1.73_m2} Normal [facility] Comment on above: Performed By: #### E PO #### [facility] , Glucose [Mass/Vol] 74 mg/dL Normal 70-100 [facility] Comment on above: Result Comment: [facility] Glucose Reference Range is dependent on time and content of last meal. Glucose of more than 200 mg/dL in a nonstressed, ambulatory subject supports the diagnosis of Diabetes Mellitus. ADA recommended reference range Performed By: #### E PO #### [facility] , Potassium [Moles/Vol] 4.5 mmol/L Normal 3.5-5.1 [facility] Comment on above: Performed By: #### E PO #### [facility] , Sodium [Moles/Vol] 139 mmol/L Normal 136-145 [facility] Comment on above: Performed By: #### E PO #### [facility] , Urea nitrogen [Mass/Vol] 13 mg/dL Normal 7-25 [facility] Comment on above: Performed By: #### E PO #### [facility] , Complete Blood Count Auto Di ffon 01-30-2023 Basophils (Bld) [#/Vol] 0.1 10*3/uL Normal 0.0-0.2 [facility] Comment on above: Result Comment: PERF ORMED BY: [facility] [address] [place] [address] PATHOLOGIST BLOOD BANK MANAGER RITA CONNER M.D. Performed By: #### E PO #### [facility] , Basophils/100 WBC (Bld) 0.5 % Normal . [facility] Comment on above: Performed By: #### E PO #### [facility] , Eosinophils (Bld) [#/Vol] 0.2 10*3/uL Normal 0.0-0.45 [facility] Comment on above: Performed By: #### E PO #### [facility] , Eosinophils/100 WBC (Bld) 1.4 % Normal . [facility] Comment on above: Performed By: #### E PO #### [facility] , Erythrocyte distribution wid th (RBC) [Ratio] 14.3 % Normal 11.9-15.3 [facility] Comment on above: Performed By: #### E PO #### [facility] , Hematocrit (Bld) [Volume fraction] 44.7 % Normal 34.0-46.4 [facility] Comment on above: Performed By: #### E PO #### [facility] , Hemoglobin (Bld) [Mass/Vol] 14.7 g/dL Normal 11.8-15. 4 [facility] Comment on above: Performed By: #### E PO #### [facility] , Lymphocytes (Bld) [#/Vol] 2.6 10*3/uL Normal 1.00-4.8 [facility] Comment on above: Performed By: #### E PO #### [facility] , Lymphocytes/100 WBC (Bld) 22.0 % Normal . [facility] Comment on above: Performed By: #### E PO #### [facility] , MCH (RBC) [Entitic mass] 31.2 pg Normal 24.7-34.3 [facility] Comment on above: Performed By: #### E PO #### [facility] , MCV (RBC) [Entitic vol] 94.9 fL Normal 80-100 [facility] Comment on above: Performed By: #### E PO #### [facility] , Mean Corpuscular HGB Conc 32.9 g/dL Normal 32.0-35.0 [facility] Comment on above: Performed By: #### E PO #### [facility] , Monocytes (Bld) [#/Vol] 0.9 10*3/uL High 0.0-0.8 [facility] Comment on above: Performed By: #### E PO #### [facility] , Monocytes/100 WBC (Bld) 7.3 % Normal . [facility] Comment on above: Performed By: #### E PO #### [facility] , Neutrophils (Bld) [#/Vol] 8.2 10*3/uL High 1.8-7.7 [facility] Comment on above: Performed By: #### E PO #### [facility] , Neutrophils/100 WBC (Bld) 68.8 % Normal . [facility] Comment on above: Performed By: #### E PO #### [facility] , NRBC% 0.1 /100{WBC} Normal 0-0.5 [facility] Comment on above: Performed By: #### E PO #### [facility] , Platelet mean volume (Bld) [Entitic vol] 7.6 fL Normal 6.3-10.7 [facility] Comment on above: Performed By: #### E PO #### [facility] , Platelets (Bld) [#/Vol] 287 10*3/uL Normal 150-450 [facility] Comment on above: Performed By: #### E PO #### [facility] , RBC (Bld) [#/Vol] 4.71 10*6/uL Normal 3.60-5.00 [facility] Comment on above: Performed By: #### E PO #### [facility] , WBC (Bld) [#/Vol] 11.9 10*3/uL High 3.8-11.6 [facility] Comment on above: Performed By: #### E PO #### [facility] , Glucose Poct Glucometerson 1 04-01-2022 Glucose [Mass/Vol] 109 mg/dL Normal [facility] Comment on above: Result Comment: [place] [facility] Glucose Reference Range is dependent on time and content of last meal. Glucose of more than 200 mg/dL in a nonstressed, ambulatory subject supports the diagnosis of Diabetes Mellitus. PERFORMED BY: [place] [id number] PATHOLOGIST BLOOD BANK MANAGER RITA CONNER M.D. Performed By: #### A ERC #### [facility] [address] [place] [address] Glucose [Mass/Vol] 121 mg/dL Normal [facility] Comment on above: Result Comment: [place] Glucose Reference Range is dependent on time and content of last meal. Glucose of more than 200 mg/dL in a nonstressed, ambulatory subject supports the diagnosis of Diabetes Mellitus. PERFORMED BY: [place] [address] PATHOLOGIST BLOOD BANK MANAGER RITA CONNER M.D. Performed By: #### A ERC #### [facility] [address] [place] [address] Commemt1 Glu2: Cleaned Meter Normal [facility] Comment on above: Result Comment: PERF ORMED BY: [place] [address] PATHOLOGIST BLOOD BANK MANAGER RITA CONNER M.D. Performed By: #### G LULS #### Point of Care testing , Glucose [Mass/Vol] 100 mg/dL Normal [facility] Comment on above: Result Comment: [place] Glucose Reference Range is dependent on time and content of last meal. Glucose of more than 200 mg/dL in a nonstressed, ambulatory subject supports the diagnosis of Diabetes Mellitus. Performed By: #### G LULS #### Point of Care testing , Commemt1 Glu2: Cleaned Meter Normal [facility] Comment on above: Result Comment: PERF ORMED BY: [place] [address] PATHOLOGIST BLOOD BANK MANAGER RITA CONNER M.D. Performed By: #### E PO #### [facility] , Glucose [Mass/Vol] 105 mg/dL Normal [facility] Comment on above: Result Comment: [place] Glucose Reference Range is dependent on time and content of last meal. Glucose of more than 200 mg/dL in a nonstressed, ambulatory subject supports the diagnosis of Diabetes Mellitus. Performed By: #### E PO #### [facility] , MR foot LT wo/w conon 2022 MR foot LT wo/w con [facility] Main [place] [id number] MRI Report Signed Patient: Ema Neff MR#: [id number] 15 : 1965 Acct:[id number] Age/Sex: 58 / F ADM Date: 01/28/23 Loc: 4N Room: 5A8627-1 Type: ADM IN Attending Dr: Casa Givens DO Copies to: Casa Givens DO Ordering Provider: Casa Givens DO Date of Service: 01/30/23 MR/MR foot LT wo/w con: rule out osteomyelitis MRI of the left foot with and without IV contrast. Reason for exam: Left foot with redness noted to toes. Infection with blackened area of third toe. COMPARISON: Left foot series 01/28/2023. Technique: Multisequence, multiplanar images of the forefoot were obtained both with and without the use of IV contrast. FINDINGS: Suboptimal evaluation due to artifact. Soft tissue edema is noted. No fluid collection is seen to suggest abscess. 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 No bone marrow edema or enhancement is seen involving the first digit. No bone marrow edema or enhancement is seen involving the second metatarsal. No definite bone marrow edema, destruction or enhancement is seen involving the third digit. No definitive bone marrow edema or enhancement is noted involving the fourth or fifth digits. MR/MR foot LT wo/w con IMPRESSION: Suboptimal study. Diffuse soft tissue swelling suggesting underlying cellulitis. No definitive MRI evidence of osteomyelitis is seen particularly involving the third digit. Impression dictated by: Jason Mays Jr., D.OValentina01/30/2023 1:50 PM Dictation Location: [place] [address] Transcribed By: [facility] 01/30/23 1350 Dictated By: Jason Mays Jr, DO 01/30/23 1337 Signed By: 01/30/23 1350 Normal [facility] Vancomycin,Peakon 01-30-2023 Vancomycin,Peak 31.3 ug/mL Normal 20.0-40.0 [facility] Comment on above: Order Comment: Reaso n for Exam Chronic tachycardia Result Comment: Last dose: - PERFORMED BY: [facility] [address] [place] [address] PATHOLOGIST BLOOD BANK MANAGER RITA CONNER M.D. Performed By: #### E PO #### [facility] , Vancomycin,Troughon 01-31-20 Vancomycin,Trough 17.5 ug/mL Normal 10.0-20.0 [facility] Comment on above: Result Comment: Last dose: - PERFORMED BY: [facility] [address] [place] [address] PATHOLOGIST BLOOD BANK MANAGER RITA CONNER M.D. Performed By: #### E PO #### [facility] , Basic Metabolic Panelon 01-13 Anion gap [Moles/Vol] 9.0 mmol/L Normal 6.0-15.0 [facility] Comment on above: Performed By: #### E PO #### [facility] , Calcium [Mass/Vol] 8.3 mg/dL Low 8.6-10.3 [facility] Comment on above: Performed By: #### E PO #### [facility] , Chloride [Moles/Vol] 104 mmol/L Normal 98-107 [facility] Comment on above: Performed By: #### E PO #### [facility] , CO2 [Moles/Vol] 28.7 mmol/L Normal 21.0-31.0 [facility] Comment on above: Performed By: #### E PO #### [facility] , Creatinine [Mass/Vol] 0.95 mg/dL Normal 0.60-1.20 [facility] Comment on above: Performed By: #### E PO #### [facility] , Creatinine Clr Calc Pharmacy 81.69 Normal [facility] Comment on above: Result Comment: PERF ORMED BY: [facility] [address] [place] [address] PATHOLOGIST BLOOD BANK MANAGER RITA CONNER M.D. Performed By: #### E PO #### [facility] , GFR/1.73 sq M.predicted MDRD (S/P/Bld) [Vol rate/Area] mL/min/{1.73_m2} Normal [facility] Comment on above: Performed By: #### E PO #### [facility] , Glucose [Mass/Vol] 56 mg/dL Low 70-100 [facility] Comment on above: Result Comment: [place] Glucose Reference Range is dependent on time and content of last meal. Glucose of more than 200 mg/dL in a nonstressed, ambulatory subject supports the diagnosis of Diabetes Mellitus. ADA recommended reference range Performed By: #### E PO #### [facility] , Potassium [Moles/Vol] 3.7 mmol/L Normal 3.5-5.1 [facility] Comment on above: Performed By: #### E PO #### [facility] , Sodium [Moles/Vol] 138 mmol/L Normal 136-145 [facility] Comment on above: Performed By: #### E PO #### [facility] , Urea nitrogen [Mass/Vol] 11 mg/dL Normal 7-25 [facility] Comment on above: Performed By: #### E PO #### [facility] , Complete Blood Count Auto Di ffon 01-29-2023 Basophils (Bld) [#/Vol] 0.1 10*3/uL Normal 0.0-0.2 [facility] Comment on above: Result Comment: PERF ORMED BY: [facility] [place] [address] PATHOLOGIST BLOOD BANK MANAGER RITA CONNER M.D. Performed By: #### E PO #### [facility] , Basophils/100 WBC (Bld) 0.6 % Normal . [facility] Comment on above: Performed By: #### E PO #### [facility] , Eosinophils (Bld) [#/Vol] 0.2 10*3/uL Normal 0.0-0.45 [facility] Comment on above: Performed By: #### E PO #### [facility] , Eosinophils/100 WBC (Bld) 1.5 % Normal . [facility] Comment on above: Performed By: #### E PO #### [facility] , Erythrocyte distribution wid th (RBC) [Ratio] 14.2 % Normal 11.9-15.3 [facility] Comment on above: Performed By: #### E PO #### [facility] , Hematocrit (Bld) [Volume fraction] 44.5 % Normal 34.0-46.4 [facility] Comment on above: Performed By: #### E PO #### [facility] , Hemoglobin (Bld) [Mass/Vol] 14.7 g/dL Normal 11.8-15. 4 [facility] Comment on above: Performed By: #### E PO #### [facility] , Lymphocytes (Bld) [#/Vol] 3.2 10*3/uL Normal 1.00-4.8 [facility] Comment on above: Performed By: #### E PO #### [facility] , Lymphocytes/100 WBC (Bld) 25.2 % Normal . [facility] Comment on above: Performed By: #### E PO #### [facility] , MCH (RBC) [Entitic mass] 31.0 pg Normal 24.7-34.3 [facility] Comment on above: Performed By: #### E PO #### [facility] , MCV (RBC) [Entitic vol] 94.2 fL Normal 80-100 [facility] Comment on above: Performed By: #### E PO #### [facility] , Mean Corpuscular HGB Conc 32.9 g/dL Normal 32.0-35.0 [facility] Comment on above: Performed By: #### E PO #### [facility] , Monocytes (Bld) [#/Vol] 0.9 10*3/uL High 0.0-0.8 [facility] Comment on above: Performed By: #### E PO #### [facility] , Monocytes/100 WBC (Bld) 7.2 % Normal . [facility] Comment on above: Performed By: #### E PO #### [facility] , Neutrophils (Bld) [#/Vol] 8.2 10*3/uL High 1.8-7.7 [facility] Comment on above: Performed By: #### E PO #### [facility] , Neutrophils/100 WBC (Bld) 65.5 % Normal . [facility] Comment on above: Performed By: #### E PO #### [facility] , NRBC% 0.1 /100{WBC} Normal 0-0.5 [facility] Comment on above: Performed By: #### E PO #### [facility] , Platelet mean volume (Bld) [Entitic vol] 7.0 fL Normal 6.3-10.7 [facility] Comment on above: Performed By: #### E PO #### [facility] , Platelets (Bld) [#/Vol] 288 10*3/uL Normal 150-450 [facility] Comment on above: Performed By: #### E PO #### [facility] , RBC (Bld) [#/Vol] 4.73 10*6/uL Normal 3.60-5.00 [facility] Comment on above: Performed By: #### E PO #### [facility] , WBC (Bld) [#/Vol] 12.6 10*3/uL High 3.8-11.6 [facility] Comment on above: Performed By: #### E PO #### [facility] , Glucose Poct Glucometerson 1 03-31-2022 Commemt1 Glu2: Cleaned Meter Normal [facility] Comment on above: Result Comment: PERF ORMED BY: [place] [address] PATHOLOGIST BLOOD BANK MANAGER RITA CONNER M.D. Performed By: #### A ERC #### [facility] [address] [place] [address] Glucose [Mass/Vol] 135 mg/dL Normal [facility] Comment on above: Result Comment: [facility] Glucose Reference Range is dependent on time and content of last meal. Glucose of more than 200 mg/dL in a nonstressed, ambulatory subject supports the diagnosis of Diabetes Mellitus. Performed By: #### A ERC #### [facility] [address] [place] [address] Glucose [Mass/Vol] 96 mg/dL Normal [facility] Comment on above: Result Comment: [facility] Glucose Reference Range is dependent on time and content of last meal. Glucose of more than 200 mg/dL in a nonstressed, ambulatory subject supports the diagnosis of Diabetes Mellitus. PERFORMED BY: [place] [address] PATHOLOGIST BLOOD BANK MANAGER RITA CONNER M.D. Performed By: #### G LULS #### Point of Care testing , Commemt1 Glu2: Cleaned Meter Normal [facility] Comment on above: Result Comment: PERF ORMED BY: [address] [address] PATHOLOGIST BLOOD BANK MANAGER RITA CONNER M.D. Performed By: #### G LULS #### Point of Care testing , Glucose [Mass/Vol] 84 mg/dL [facility] Comment on above: Result Comment: [place] om Glucose Reference Range is dependent on time and content of last meal. Glucose of more than 200 mg/dL in a nonstressed, ambulatory subject supports the diagnosis of Diabetes Mellitus. Performed By: #### G LULS #### Point of Care testing , Glucose [Mass/Vol] 151 mg/dL [facility] Comment on above: Result Comment: [place] [facility] Glucose Reference Range is dependent on time and content of last meal. Glucose of more than 200 mg/dL in a nonstressed, ambulatory subject supports the diagnosis of Diabetes Mellitus. PERFORMED BY: [place] [address] PATHOLOGIST BLOOD BANK MANAGER RITA CONNER M.D. Performed By: #### E PO #### [facility] , Commemt1 [facility] Comment on above: Result Comment: Glu2 : WILL NOTIFY DR/RN PERFORMED BY: [place] [address] PATHOLOGIST BLOOD BANK MANAGER RITA CONNER M.D. Performed By: #### A ERC #### [address] Glucose [Mass/Vol] 57 mg/dL Off scale low [facility] Comment on above: Result Comment: [place] om Glucose Reference Range is dependent on time and content of last meal. Glucose of more than 200 mg/dL in a nonstressed, ambulatory subject supports the diagnosis of Diabetes Mellitus. Performed By: #### A ERC #### [address] Glucose [Mass/Vol] 61 mg/dL Normal [facility] Comment on above: Result Comment: [place] Glucose Reference Range is dependent on time and content of last meal. Glucose of more than 200 mg/dL in a nonstressed, ambulatory subject supports the diagnosis of Diabetes Mellitus. PERFORMED BY: [place] [address] PATHOLOGIST BLOOD BANK MANAGER RITA CONNER M.D. Performed By: #### E PO #### [facility] , Superficial Wound Cultureon 01-29-2023 Superficial Wound Culture Comment Cultur e both 2nd toe amp site and third left toe ORGANISM: Corynebacterium striatum group (O:CORSTRGP) Quantity of Growth Light Growth PERFORMED BY: [place] [address] PATHOLOGIST BLOOD BANK MANAGER RITA CONNER M.D. Normal [facility] Comment on above: Performed By: #### E PO #### [facility] , Alanine aminotransferase [En zymatic activity/volume] in Serum or PlasmaOrdered By: Chino Peraza on 01-28-2023 ALT [Catalytic activity/Vol] 10 U/L 7-52 [facility] Albumin [Mass/volume] in Ser um or Plasma by Bromocresol green (BCG) dye binding methoOrdered By: Chino Peraza on 01-28-2023 Albumin BCG dye [Mass/Vol] 3.9 g/dL 3.5-5.7 [facility] Alkaline phosphatase [Enzyma tic activity/volume] in Serum or PlasmaOrdered By: Chino Peraza on 01-28-2023 ALP [Catalytic activity/Vol] 73 U/L 34-104 [facility] Aspartate aminotransferase [ Enzymatic activity/volume] in Serum or PlasmaOrdered By: Chino Peraza on 01-28-2023 AST [Catalytic activity/Vol] 17 U/L 13-39 [facility] Bacterial blood cultureOrder ed By: Chino Peraza on 01-28-2023 Bacteria identified Cx Nom (Bld) NO GROWTH 5 DAYS [facility] Basophils Auto (Bld) [#/Vol] Ordered By: Chino Peraza on 01-28-2023 Basophils (Bld) [#/Vol] 0.2 10*3/uL 0.0-0.2 [facility] Basophils/100 WBC Auto (Bld) Ordered By: Chino Peraza on 01-28-2023 Basophils/100 WBC (Bld) 1.3 % . [facility] Bilirubin.total [Mass/volume ] in Serum or PlasmaOrdered By: Chino Peraza on 01-28-2023 Bilirubin [Mass/Vol] 0.5 mg/dL 0.3-1.0 [facility] Blood Cultureon 01-28-2023 Bacteria identified Cx Nom (Bld) NO GROWTH 5 DAYS PERFORMED BY: [place] [address] PATHOLOGIST BLOOD BANK MANAGER RITA CONNER M.D. [facility] Comment on above: Performed By: #### A ERC #### [facility] [address] [place] [address] Bacteria identified Cx Nom (Bld) NO GROWTH 5 DAYS PERFORMED BY: [place] [address] PATHOLOGIST BLOOD BANK MANAGER RITA CONNER M.D. [facility] Comment on above: Performed By: #### A ERC #### [facility] [address] [place] [address] [place] C reactive protein [Mass/vol ume] in Serum or PlasmaOrdered By: Chino Peraza on 01-28-2023 CRP [Mass/Vol] 0.5 mg/dL 0.0-0.5 [facility] C-Reactive Proteinon 023 C-Reactive Protein 0.5 mg/dL Normal 0.0-0.5 [facility] Comment on above: Result Comment: PERF ORMED BY: [place] [address] PATHOLOGIST BLOOD BANK MANAGER RITA CONNER M.D. Performed By: #### G LULS #### Point of Care testing , Calcium [Mass/volume] in Ser um or PlasmaOrdered By: Chino Peraza on 01-28-2023 Calcium [Mass/Vol] 9.1 mg/dL 8.6-10.3 [facility] Carbon dioxide, total [Moles /volume] in Serum or PlasmaOrdered By: Chino Peraza on 01-28-2023 CO2 [Moles/Vol] 31.9 mmol/L 21.0-31.0 [facility] Chloride [Moles/volume] in S jamshid or PlasmaOrdered By: Chino Peraza on 01-28-2023 Chloride [Moles/Vol] 103 mmol/L 98-107 [facility] Complete Blood Count Auto Di ffon 01-28-2023 Basophils (Bld) [#/Vol] 0.2 10*3/uL Normal 0.0-0.2 [facility] Comment on above: Performed By: #### G LULS #### Point of Care testing , Basophils/100 WBC (Bld) 1.3 % Normal . [facility] Comment on above: Performed By: #### G LULS #### Point of Care testing , Eosinophils (Bld) [#/Vol] 0.1 10*3/uL Normal 0.0-0.45 [facility] Comment on above: Performed By: #### G LULS #### Point of Care testing , Eosinophils/100 WBC (Bld) 0.4 % Normal . [facility] Comment on above: Performed By: #### G LULS #### Point of Care testing , Erythrocyte distribution wid th (RBC) [Ratio] 14.3 % Normal 11.9-15.3 [facility] Comment on above: Performed By: #### G LULS #### Point of Care testing , Hematocrit (Bld) [Volume fraction] 49.8 % High 34.0-46.4 [facility] Comment on above: Performed By: #### G LULS #### Point of Care testing , Hemoglobin (Bld) [Mass/Vol] 16.6 g/dL High 11.8-15. 4 [facility] Comment on above: Performed By: #### G ELBALS #### Point of Care testing , Lymphocytes (Bld) [#/Vol] 2.5 10*3/uL Normal 1.00-4.8 [facility] Comment on above: Performed By: #### G LULS #### Point of Care testing , Lymphocytes/100 WBC (Bld) 19.7 % Normal . [facility] Comment on above: Performed By: #### G LULS #### Point of Care testing , MCH (RBC) [Entitic mass] 31.3 pg Normal 24.7-34.3 [facility] Comment on above: Performed By: #### G LULS #### Point of Care testing , MCV (RBC) [Entitic vol] 94.0 fL Normal 80-100 [facility] Comment on above: Performed By: #### G LULS #### Point of Care testing , Mean Corpuscular HGB Conc 33.3 g/dL Normal 32.0-35.0 [facility] Comment on above: Performed By: #### G ELBALS #### Point of Care testing , Monocytes (Bld) [#/Vol] 0.6 10*3/uL Normal 0.0-0.8 [facility] Comment on above: Performed By: #### G LULS #### Point of Care testing , Monocytes/100 WBC (Bld) 20.03 % High 0.00-20.00 [facility] Comment on above: Result Comment: For adults in ED, MDW > 20.0 may be associated with a higher risk of sepsis during the first 12 hrs of hospital admission Performed By: #### G LULS #### Point of Care testing , Monocytes/100 WBC (Bld) 5.0 % Normal . [facility] Comment on above: Performed By: #### G LULS #### Point of Care testing , Neutrophils (Bld) [#/Vol] 9.5 10*3/uL High 1.8-7.7 [facility] Comment on above: Performed By: #### Robert OMER #### Point of Care testing , Neutrophils/100 WBC (Bld) 73.6 % Normal . [facility] Comment on above: Performed By: #### Robert OMER #### Point of Care testing , NRBC% 0.1 /100{WBC} Normal 0-0.5 [facility] Comment on above: Performed By: #### Robert OMER #### Point of Care testing , Platelet mean volume (Bld) [Entitic vol] 7.0 fL Normal 6.3-10.7 [facility] Comment on above: Performed By: #### Robert OMER #### Point of Care testing , Platelets (Bld) [#/Vol] 315 10*3/uL Normal 150-450 [facility] Comment on above: Performed By: #### Robert OMER #### Point of Care testing , RBC (Bld) [#/Vol] 5.30 10*6/uL High 3.60-5.00 [facility] Comment on above: Performed By: #### Robert OMER #### Point of Care testing , WBC (Bld) [#/Vol] 12.9 10*3/uL High 3.8-11.6 [facility] Comment on above: Performed By: #### Robert OMER #### Point of Care testing , Comprehensive Metabolic Pane alurel 01-28-2023 Albumin [Mass/Vol] 3.9 g/dL Normal 3.5-5.7 [facility] Comment on above: Performed By: #### Robert OMER #### Point of Care testing , Albumin/Globulin [Mass ratio] 1.1 {ratio} Normal [facility] Comment on above: Performed By: #### Robert OMER #### Point of Care testing , ALP [Catalytic activity/Vol] 73 U/L Normal 34-104 [facility] Comment on above: Performed By: #### Robert OMER #### Point of Care testing , ALT [Catalytic activity/Vol] 10 U/L Normal 7-52 [facility] Comment on above: Performed By: #### Robert OMER #### Point of Care testing , Anion gap [Moles/Vol] 8.4 mmol/L Normal 6.0-15.0 [facility] Comment on above: Performed By: #### G KAN #### Point of Care testing , AST [Catalytic activity/Vol] 17 U/L Normal 13-39 [facility] Comment on above: Performed By: #### G ELBALS #### Point of Care testing , Bilirubin [Mass/Vol] 0.5 mg/dL Normal 0.3-1.0 [facility] Comment on above: Performed By: #### G ELBALS #### Point of Care testing , Calcium [Mass/Vol] 9.1 mg/dL Normal 8.6-10.3 [facility] Comment on above: Performed By: #### G KAN #### Point of Care testing , Chloride [Moles/Vol] 103 mmol/L Normal 98-107 [facility] Comment on above: Performed By: #### Robert OMER #### Point of Care testing , CO2 [Moles/Vol] 31.9 mmol/L High 21.0-31.0 [facility] Comment on above: Performed By: #### G KAN #### Point of Care testing , Creatinine [Mass/Vol] 0.87 mg/dL Normal 0.60-1.20 [facility] Comment on above: Performed By: #### G KAN #### Point of Care testing , Creatinine Clr Calc Pharmacy 85.52 [facility] Comment on above: Performed By: #### G ELBALS #### Point of Care testing , GFR/1.73 sq M.predicted MDRD (S/P/Bld) [Vol rate/Area] mL/min/{1.73_m2} Normal [facility] Comment on above: Performed By: #### G ELBALS #### Point of Care testing , Globulin (S) [Mass/Vol] 3.4 g/dL Normal [facility] Comment on above: Performed By: #### G KAN #### Point of Care testing , Glucose [Mass/Vol] 98 mg/dL Normal 70-100 [facility] Comment on above: Result Comment: [place] Glucose Reference Range is dependent on time and content of last meal. Glucose of more than 200 mg/dL in a nonstressed, ambulatory subject supports the diagnosis of Diabetes Mellitus. ADA recommended reference range Performed By: #### G LULS #### Point of Care testing , Potassium [Moles/Vol] 4.3 mmol/L Normal 3.5-5.1 [facility] Comment on above: Performed By: #### G LULS #### Point of Care testing , Protein [Mass/Vol] 7.3 g/dL Normal 6.4-8.9 [facility] Comment on above: Performed By: #### G LULS #### Point of Care testing , Sodium [Moles/Vol] 139 mmol/L Normal 136-145 [facility] Comment on above: Performed By: #### G LULS #### Point of Care testing , Urea nitrogen [Mass/Vol] 11 mg/dL Normal 7-25 [facility] Comment on above: Performed By: #### G LULS #### Point of Care testing , Creatinine [Mass/volume] in Serum or PlasmaOrdered By: Chino Peraza on 01-28-2023 Creatinine [Mass/Vol] 0.87 mg/dL 0.60-1.20 [facility] Eosinophils Auto (Bld) [#/Vo l]Ordered By: Chino Peraza on 01-28-2023 Eosinophils (Bld) [#/Vol] 0.1 10*3/uL 0.0-0.45 [facility] Eosinophils/100 WBC Auto (Bl d)Ordered By: Chino Peraza on 01-28-2023 Eosinophils/100 WBC (Bld) 0.4 % . [facility] Erythrocyte Sedimentation Ra isiah 01-28-2023 ESR (Bld) [Velocity] 30 mm/h High 0-29 [facility] Comment on above: Result Comment: PERF ORMED BY: [facility] [address] [place] [address] PATHOLOGIST BLOOD BANK MANAGER RITA CONNER M.D. Performed By: #### G KAN #### Point of Care testing , Erythrocyte distribution wid th Auto (RBC) [Ratio]Ordered By: Chino Peraza on 01-28-2023 Erythrocyte distribution wid th (RBC) [Ratio] 14.3 % 11.9-15.3 [facility] Erythrocyte sedimentation ra te by Photometric methodOrdered By: Chino Peraza on 01-28-2023 ESR Photometric method (Bld) [Velocity] 30 mm/hr 0-29 [facility] Globulin Calc (S) [Mass/Vol] Ordered By: Chino Peraza on 01-28-2023 Globulin (S) [Mass/Vol] 3.4 g/dL [facility] Glucose Poct Glucometerson 1 03-30-2022 Glucose [Mass/Vol] 69 mg/dL Normal [facility] Comment on above: Result Comment: [facility] Glucose Reference Range is dependent on time and content of last meal. Glucose of more than 200 mg/dL in a nonstressed, ambulatory subject supports the diagnosis of Diabetes Mellitus. PERFORMED BY: [facility] [address] [place] [address] PATHOLOGIST BLOOD BANK MANAGER RITA CONNER M.D. Performed By: #### G KAN #### Point of Care testing , Glucose [Mass/volume] in Ser um or PlasmaOrdered By: Chino Peraza on 01-28-2023 Glucose [Mass/Vol] 98 mg/dL 70-100 [facility] Comment on above: ADA recommended refe rence rangeRandom Glucose Reference Range is dependent on time and content of last meal. Glucose of more than 200 mg/dL in a nonstressed, ambulatory subject supports the diagnosis of Diabetes Mellitus. Hematocrit Auto (Bld) [Volum e fraction]Ordered By: Chino Peraza on 01-28-2023 Hematocrit (Bld) [Volume fraction] 49.8 % 3 4.0-46.4 [facility] Hemoglobin [Mass/volume] in BloodOrdered By: Chino Peraza on 01-28-2023 Hemoglobin (Bld) [Mass/Vol] 16.6 g/dL 11.8-15. 4 [facility] Lactate [Moles/volume] in Se rum or PlasmaOrdered By: Chino Peraza on 01-28-2023 Lactate [Moles/Vol] 0.9 mmol/L 0.5-2.2 [facility] Lactic Acidon 01-28-2023 Lactate [Moles/Vol] 0.9 mmol/L Normal 0.5-2.2 [facility] Comment on above: Result Comment: PERF ORMED BY: [facility] [address] [place] [address] PATHOLOGIST BLOOD BANK MANAGER RITA CONNER M.D. Performed By: #### G LULS #### Point of Care testing , Leukocytes [#/volume] correc marquez for nucleated erythrocytes in Blood by Automated counOrdered By: Chino Peraza on 01-28-2023 WBC corrected for nucl RBC A uto (Bld) [#/Vol] 12.9 10*3/uL 3.8-11.6 [facility] Lymphocytes Auto (Bld) [#/Vo l]Ordered By: Chino Peraza on 01-28-2023 Lymphocytes (Bld) [#/Vol] 2.5 10*3/uL 1.00-4.8 [facility] Lymphocytes/100 WBC Auto (Bl d)Ordered By: Chino Peraza on 01-28-2023 Lymphocytes/100 WBC (Bld) 19.7 % . [facility] [facility] MCH Auto (RBC) [Entitic mass ]Ordered By: Chino Peraza on 01-28-2023 MCH (RBC) [Entitic mass] 31.3 pg 24.7-34.3 [facility] MCHC Auto (RBC) [Mass/Vol]Or dered By: Chino Peraza on 01-28-2023 MCHC (RBC) [Mass/Vol] 33.3 g/dL 32.0-35.0 [facility] MCV Auto (RBC) [Entitic vol] Ordered By: Chino Peraza on 01-28-2023 MCV (RBC) [Entitic vol] 94.0 fL 80-100 [facility] Monocyte distribution width [Entitic volume] in Blood by AutomatedOrdered By: Chino Peraza on 01-28-2023 Monocyte distribution width Auto (Bld) [Entitic vol] 20.03 % 0.00-20.00 [facility] Comment on above: For adults in ED, MD W > 20.0 may be associated with a higher risk of sepsis during the first 12 hrs of hospital admission Monocytes Auto (Bld) [#/Vol] Ordered By: Chino Peraza on 01-28-2023 Monocytes (Bld) [#/Vol] 0.6 10*3/uL 0.0-0.8 [facility] Monocytes/100 WBC Auto (Bld) Ordered By: Chino Peraza on 01-28-2023 Monocytes/100 WBC (Bld) 5.0 % . [facility] Neutrophils Auto (Bld) [#/Vo l]Ordered By: Chino Peraza on 01-28-2023 Neutrophils (Bld) [#/Vol] 9.5 10*3/uL 1.8-7.7 [facility] Neutrophils/100 WBC Auto (Bl d)Ordered By: Chino Peraza on 01-28-2023 Neutrophils/100 WBC (Bld) 73.6 % . [facility] No Panel InformationOrdered By: Chino Peraza on 01-28-2023 Estimated GFR (CKD-EPI) > 60.0 mL/Min [facility] Creatinine Clearanc e (Chem 85.52 [facility] Nucleated erythrocytes [Pres ence] in Blood by Automated countOrdered By: Chino Peraza on 01-28-2023 Nucleated RBC Auto Ql (Bld) 0.1 /100{WBC} 0-0.5 [facility] Platelet mean volume Auto (B ld) [Entitic vol]Ordered By: Chino Peraza on 01-28-2023 Platelet mean volume (Bld) [Entitic vol] 7.0 fL 6.3-10.7 [facility] Platelets Auto (Bld) [#/Vol] Ordered By: Chino Peraza on 01-28-2023 Platelets (Bld) [#/Vol] 315 10*3/uL 150-450 [facility] Potassium [Moles/volume] in Serum or PlasmaOrdered By: Chino Peraza on 01-28-2023 Potassium [Moles/Vol] 4.3 mmol/L 3.5-5.1 [facility] Protein [Mass/volume] in Ser um or PlasmaOrdered By: Chino Peraza on 01-28-2023 Protein [Mass/Vol] 7.3 g/dL 6.4-8.9 [facility] RBC Auto (Bld) [#/Vol]Ordere d By: Chino Peraza on 01-28-2023 RBC (Bld) [#/Vol] 5.30 10*6/uL 3.60-5.00 [facility] Serum or plasma albumin/glob ulin mass ratioOrdered By: Chino Peraza on 01-28-2023 Albumin/Globulin [Mass ratio] 1.1 {ratio} [facility] Serum or plasma anion gap de terminationOrdered By: Chino Peraza on 01-28-2023 Anion gap [Moles/Vol] 8.4 mmol/L 6.0-15.0 [facility] Sodium [Moles/volume] in Ser um or PlasmaOrdered By: Chino Peraza on 01-28-2023 Sodium [Moles/Vol] 139 mmol/L 136-145 [facility] Urea nitrogen [Mass/volume] in Serum or PlasmaOrdered By: Chino Peraza on 01-28-2023 Urea nitrogen [Mass/Vol] 11 mg/dL 7-25 [facility] WBC Auto (Bld) [#/Vol]Ordere d By: Chino Peraza on 01-28-2023 WBC (Bld) [#/Vol] 12.9 10*3/uL 3.8-11.6 [facility] XR foot LT min 3V*on 023 XR foot LT min 3V* [facility] [place] [address] XRay Report Signed Patient: Ema Neff MR#: [id number] 15 : 1965 Acct:[id number] Age/Sex: 58 / F ADM Date: 01/28/23 Loc: ER Room: Type: [facility] ER Attending Dr: Copies to: Chino Peraza DO Ordering Provider: Chino Peraza DO Date of Service: 01/28/23 XR/XR foot LT min 3V*: Skin/Abscess/Foreign Body LEFT FOOT - 3 views CLINICAL HISTORY: Left foot pain with redness noted to toes. Black third toe. Cellulitis. COMPARISON: Left foot 01/06/2022 FINDINGS: Soft tissue swelling is noted. No acute bony process is seen. No plain film evidence of osteomyelitis is noted. Scattered degenerative changes with plantar spurring. No bony erosions. XR/XR foot LT min 3V* IMPRESSION: SOFT TISSUE SWELLING CONSISTENT WITH CELLULITIS. SCATTERED DEGENERATIVE CHANGES WITHOUT ACUTE BONY PROCESS OR PLAIN FILM EVIDENCE OF OSTEOMYELITIS. Impression dictated by: Jason Mays Jr., D.OValentina01/28/2023 5:11 PM Dictation Location: [place] [address] Transcribed By: [facility] 01/28/231710 Dictated By: Jason Mays Jr, DO 01/28/231709 Signed By: 01/28/231710 Normal [facility] US venous duplex LE LTon US venous duplex LE LT [place] [address] Ultrasound Report Signed Patient: Ema Neff MR#: [id number] 15 : 1965 Acct:[id number] Age/Sex: 57 / F ADM Date: 11/10/22 Loc: ER Room: Type: [facility] ER Attending Dr: Ordering Provider: Montana Martínez APRN Date of Service: 11/10/22 US/US venous duplex LE LT: Pain and swelling left lower leg Copies to: Montana Martínez APRN LEFT LOWER EXTREMITY VENOUS DUPLEX INDICATION: Left leg pain and swelling. Unilateral left lower extremity venous duplex Doppler study was obtained utilizing B-mode, color- flow and spectral Doppler. FINDINGS: The left common femoral, femoral, and popliteal veins showed adequate compressibility, color-flow and augmentation. The left posterior tibial and peroneal veins were compressible, as well as proximal greater saphenous vein. The contralateral right common femoral vein was compressible with color-flow and augmentation. US/US venous duplex LE LT IMPRESSION: NO EVIDENCE OF DEEP VENOUS THROMBOSIS IN THE LEFT LOWER EXTREMITY. NO SUPERFICIAL THROMBOPHLEBITIS WAS NOTED. Impression dictated by: Zaid Mon MD11/11/2022 2:41 PM Dictation Location: [place] [address] Tech: Anusha Hoffmann Transcribed By: GÉNESIS 11/11/221440 Dictated By: Zaid Mon MD 11/11/221440 Signed By: 11/11/221440 [facility] Glucose Glucometer (BldC) [M ass/Vol]Ordered By: Sacha Mehta on 10-20-2022 Glucose [Mass/Vol] 61 mg/dL [facility] Comment on above: Random Glucose Refer ence Range is dependent on time and content of last meal. Glucose of more than 200 mg/dL in a nonstressed, ambulatory subject supports the diagnosis of Diabetes Mellitus. Glucose Poct Glucometerson 0 10-20-2022 Commemt1 Glu2: Cleaned Meter [facility] Comment on above: Result Comment: PERF ORMED BY: [facility] [address] [facility] [place] [address] PATHOLOGIST BLOOD BANK MANAGER RITA CONNER M.D. Performed By: #### G LULS #### Point of Care testing , Glucose [Mass/Vol] 61 mg/dL [facility] Comment on above: Result Comment: [place] Glucose Reference Range is dependent on time and content of last meal. Glucose of more than 200 mg/dL in a nonstressed, ambulatory subject supports the diagnosis of Diabetes Mellitus. Performed By: #### G LULS #### Point of Care testing , Commemt1 Glu2: Cleaned Meter [facility] Comment on above: Result Comment: PERF ORMED BY: [facility] [address] [place] [address] PATHOLOGIST BLOOD BANK MANAGER RITA CONNER M.D. Performed By: #### G LULS #### Point of Care testing , Glucose [Mass/Vol] 88 mg/dL Normal [facility] Comment on above: Result Comment: [place] om Glucose Reference Range is dependent on time and content of last meal. Glucose of more than 200 mg/dL in a nonstressed, ambulatory subject supports the diagnosis of Diabetes Mellitus. Performed By: #### G KAN #### Point of Care testing , No Panel InformationOrdered By: AUTUMN Mehta on 10-20-2022 Bedside Glucose Comment Glu2: cleaned meter [facility] Basic Metabolic Panelon Anion gap [Moles/Vol] 10.5 mmol/L Normal 6.0-15.0 [facility] Comment on above: Performed By: #### A ERC #### [facility] [address] Calcium [Mass/Vol] 8.9 mg/dL Normal 8.6-10.3 [facility] Comment on above: Result Comment: PERF ORMED BY: [place] [address] PATHOLOGIST BLOOD BANK MANAGER RITA CONNER M.D. Performed By: #### A ERC #### [address] Chloride [Moles/Vol] 102 mmol/L Normal 98-107 [facility] Comment on above: Performed By: #### A ERC #### [facility] [address] CO2 [Moles/Vol] 32.3 mmol/L High 21.0-31.0 [facility] Comment on above: Performed By: #### A ERC #### [facility] [address] [place] [address] [place] Creatinine [Mass/Vol] 1.02 mg/dL Normal 0.60-1.20 [facility] Comment on above: Performed By: #### A ERC #### [facility] [address] [place] [address] [place] GFR/1.73 sq M.predicted MDRD (S/P/Bld) [Vol rate/Area] mL/min/{1.73_m2} Normal [facility] Comment on above: Performed By: #### A ERC #### [facility] [address] [place] [address] [place] Glucose [Mass/Vol] 97 mg/dL Normal 70-100 [facility] Comment on above: Result Comment: [place] Glucose Reference Range is dependent on time and content of last meal. Glucose of more than 200 mg/dL in a nonstressed, ambulatory subject supports the diagnosis of Diabetes Mellitus. ADA recommended reference range Performed By: #### A ERC #### [facility] [address] Potassium [Moles/Vol] 4.8 mmol/L Normal 3.5-5.1 [facility] Comment on above: Performed By: #### A ERC #### [facility] [address] Sodium [Moles/Vol] 140 mmol/L Normal 136-145 [facility] Comment on above: Performed By: #### A ERC #### [facility] [address] Urea nitrogen [Mass/Vol] 19 mg/dL Normal 7-25 [facility] Comment on above: Performed By: #### A ERC #### [facility] [address] Basophils Auto (Bld) [#/Vol] Ordered By: Candace Goerge on 10-16-2022 Basophils (Bld) [#/Vol] 0.1 10*3/uL 0.0-0.2 [facility] Basophils/100 WBC Auto (Bld) Ordered By: Candace George on 10-16-2022 Basophils/100 WBC (Bld) 0.7 % . F [facility] Calcium [Mass/volume] in Ser um or PlasmaOrdered By: [facility] Kanu Mehta on 10-16-2022 Calcium [Mass/Vol] 8.9 mg/dL 8.6-10.3 [facility] Carbon dioxide, total [Moles /volume] in Serum or PlasmaOrdered By: Sacha Mehta on 10-16-2022 CO2 [Moles/Vol] 32.3 mmol/L 21.0-31.0 [facility] Chloride [Moles/volume] in S jamshid or PlasmaOrdered By: AUTUMN Mehta on 10-16-2022 Chloride [Moles/Vol] 102 mmol/L 98-107 [facility] Complete Blood Count Auto Di ffon 10-16-2022 Basophils (Bld) [#/Vol] 0.1 10*3/uL Normal 0.0-0.2 [facility] Comment on above: Order Comment: Reaso n for Exam Chronic tachycardia Result Comment: PERF ORMED BY: [facility] [place] [address] PATHOLOGIST BLOOD BANK MANAGER RITA CONNER M.D. Performed By: #### G LULS #### Point of Care testing , Basophils/100 WBC (Bld) 0.7 % Normal . [facility] Comment on above: Order Comment: Reaso n for Exam Chronic tachycardia Performed By: #### G LULS #### Point of Care testing , Eosinophils (Bld) [#/Vol] 0.2 10*3/uL Normal 0.0-0.45 [facility] Comment on above: Order Comment: Reaso n for Exam Chronic tachycardia Performed By: #### G LULS #### Point of Care testing , Eosinophils/100 WBC (Bld) 1.2 % Normal . [facility] Comment on above: Order Comment: Reaso n for Exam Chronic tachycardia Performed By: #### G LULS #### Point of Care testing , Erythrocyte distribution wid th (RBC) [Ratio] 14.8 % Normal 11.9-15.3 [facility] Comment on above: Order Comment: Reaso n for Exam Chronic tachycardia Performed By: #### G LULS #### Point of Care testing , Hematocrit (Bld) [Volume fraction] 47.5 % High 34.0-46.4 [facility] Comment on above: Order Comment: Reaso n for Exam Chronic tachycardia Performed By: #### G LULS #### Point of Care testing , Hemoglobin (Bld) [Mass/Vol] 15.7 g/dL High 11.8-15. 4 [facility] Comment on above: Order Comment: Reaso n for Exam Chronic tachycardia Performed By: #### G LULS #### Point of Care testing , Lymphocytes (Bld) [#/Vol] 2.6 10*3/uL Normal 1.00-4.8 [facility] Comment on above: Order Comment: Reaso n for Exam Chronic tachycardia Performed By: #### G LULS #### Point of Care testing , Lymphocytes/100 WBC (Bld) 16.5 % Normal . [facility] Comment on above: Order Comment: Reaso n for Exam Chronic tachycardia Performed By: #### G LULS #### Point of Care testing , MCH (RBC) [Entitic mass] 31.7 pg Normal 24.7-34.3 [facility] Comment on above: Order Comment: Reaso n for Exam Chronic tachycardia Performed By: #### G LULS #### Point of Care testing , MCV (RBC) [Entitic vol] 95.8 fL Normal 80-100 [facility] Comment on above: Order Comment: Reaso n for Exam Chronic tachycardia Performed By: #### G LULS #### Point of Care testing , Mean Corpuscular HGB Conc 33.1 g/dL Normal 32.0-35.0 [facility] Comment on above: Order Comment: Reaso n for Exam Chronic tachycardia Performed By: #### G LULS #### Point of Care testing , Monocytes (Bld) [#/Vol] 0.8 10*3/uL Normal 0.0-0.8 [facility] Comment on above: Order Comment: Reaso n for Exam Chronic tachycardia Performed By: #### G LULS #### Point of Care testing , Monocytes/100 WBC (Bld) 4.9 % Normal . [facility] Comment on above: Order Comment: Reaso n for Exam Chronic tachycardia Performed By: #### G LULS #### Point of Care testing , Neutrophils (Bld) [#/Vol] 12.3 10*3/uL High 1.8-7.7 [facility] Comment on above: Order Comment: Reaso n for Exam Chronic tachycardia Performed By: #### G LULS #### Point of Care testing , Neutrophils/100 WBC (Bld) 76.7 % Normal . [facility] Comment on above: Order Comment: Reaso n for Exam Chronic tachycardia Performed By: #### G LULS #### Point of Care testing , NRBC% 0.0 /100{WBC} Normal 0-0.5 [facility] Comment on above: Order Comment: Reaso n for Exam Chronic tachycardia Performed By: #### G LULS #### Point of Care testing , Platelet mean volume (Bld) [Entitic vol] 7.2 fL Normal 6.3-10.7 [facility] Comment on above: Order Comment: Reaso n for Exam Chronic tachycardia Performed By: #### G LULS #### Point of Care testing , Platelets (Bld) [#/Vol] 301 10*3/uL Normal 150-450 [facility] Comment on above: Order Comment: Reaso n for Exam Chronic tachycardia Performed By: #### G LULS #### Point of Care testing , RBC (Bld) [#/Vol] 4.96 10*6/uL Normal 3.60-5.00 [facility] Comment on above: Order Comment: Reaso n for Exam Chronic tachycardia Performed By: #### G LULS #### Point of Care testing , WBC (Bld) [#/Vol] 16.0 10*3/uL High 3.8-11.6 [facility] Comment on above: Order Comment: Reaso n for Exam Chronic tachycardia Performed By: #### G LULS #### Point of Care testing , Creatinine [Mass/volume] in Serum or PlasmaOrdered By: AUTUMN Mehta on 10-16-2022 Creatinine [Mass/Vol] 1.02 mg/dL 0.60-1.20 [facility] Eosinophils Auto (Bld) [#/Vo l]Ordered By: Candace George on 10-16-2022 Eosinophils (Bld) [#/Vol] 0.2 10*3/uL 0.0-0.45 [facility] Eosinophils/100 WBC Auto (Bl d)Ordered By: Candace George on 10-16-2022 Eosinophils/100 WBC (Bld) 1.2 % . [facility] Erythrocyte distribution wid th Auto (RBC) [Ratio]Ordered By: Candace Hsu on 10-16-2022 Erythrocyte distribution wid th (RBC) [Ratio] 14.8 % 11.9-15.3 [facility] Erythropoetin (EPO), Serumon 10-16-2022 Erythropoetin (EPO), Serum 72.0 m[iU]/mL High 2.6-18 .5 [facility] Comment on above: Order Comment: Reaso n for Exam Chronic tachycardia Result Comment: [employer] DxI 800 Immunoassay System Values obtained with different assay methods or kits cannot be used interchangeably. Results cannot be interpreted as absolute evidence of the presence or absence of malignant disease. Performed at: [employer] [id number] [place] Fitter: Donny Cary PhD, Phone: [phone] PERFORMED BY: [address] [place] [address] PATHOLOGIST BLOOD BANK MANAGER RITA CONNER M.D. Performed By: #### E PO #### [facility] , Glucose [Mass/volume] in Ser um or PlasmaOrdered By: AUTUMN Mehta on 10-16-2022 Glucose [Mass/Vol] 97 mg/dL 70-100 [facility] Comment on above: ADA recommended refe rence rangeRandom Glucose Reference Range is dependent on time and content of last meal. Glucose of more than 200 mg/dL in a nonstressed, ambulatory subject supports the diagnosis of Diabetes Mellitus. Hematocrit Auto (Bld) [Volum e fraction]Ordered By: Candace George on 10-16-2022 Hematocrit (Bld) [Volume fraction] 47.5 % 3 4.0-46.4 [facility] Hemoglobin [Mass/volume] in BloodOrdered By: Candace George on 10-16-2022 Hemoglobin (Bld) [Mass/Vol] 15.7 g/dL 11.8-15. 4 [facility] Leukocytes [#/volume] correc marquez for nucleated erythrocytes in Blood by Automated counOrdered By: Candace George on 10-16-2022 WBC corrected for nucl RBC A uto (Bld) [#/Vol] 16.0 10*3/uL 3.8-11.6 [facility] Lymphocytes Auto (Bld) [#/Vo l]Ordered By: Candace George on 10-16-2022 Lymphocytes (Bld) [#/Vol] 2.6 10*3/uL 1.00-4.8 [facility] Lymphocytes/100 WBC Auto (Bl d)Ordered By: Candace George on 10-16-2022 Lymphocytes/100 WBC (Bld) 16.5 % . [facility] MCH Auto (RBC) [Entitic mass ]Ordered By: Candace George on 10-16-2022 MCH (RBC) [Entitic mass] 31.7 pg 24.7-34.3 [facility] MCHC Auto (RBC) [Mass/Vol]Or dered By: Candace George on 10-16-2022 MCHC (RBC) [Mass/Vol] 33.1 g/dL 32.0-35.0 [facility] MCV Auto (RBC) [Entitic vol] Ordered By: Candace George on 10-16-2022 MCV (RBC) [Entitic vol] 95.8 fL 80-100 [facility] Monocytes Auto (Bld) [#/Vol] Ordered By: Candace George on 10-16-2022 Monocytes (Bld) [#/Vol] 0.8 10*3/uL 0.0-0.8 [facility] Monocytes/100 WBC Auto (Bld) Ordered By: Candace Mondragonverson on 10-16-2022 Monocytes/100 WBC (Bld) 4.9 % . [facility] Neutrophils Auto (Bld) [#/Vo l]Ordered By: Candace Modnragonverson on 10-16-2022 Neutrophils (Bld) [#/Vol] 12.3 10*3/uL 1.8-7.7 [facility] Neutrophils/100 WBC Auto (Bl d)Ordered By: Candace George on 10-16-2022 Neutrophils/100 WBC (Bld) 76.7 % . [facility] No Panel InformationOrdered By: AUTUMN Mehta on 10-16-2022 Estimated GFR (CKD-EPI) > 60.0 mL/Min [facility] Creatinine Clearanc e (Chem N/A [facility] Nucleated erythrocytes [Pres ence] in Blood by Automated countOrdered By: Candace George on 10-16-2022 Nucleated RBC Auto Ql (Bld) 0.0 /100{WBC} 0-0.5 [facility] Parathyrin.intact [Mass/volu me] in Serum or PlasmaOrdered By: Candace Hsu on 10-16-2022 Parathyrin.intact [Mass/Vol] 66.8 pg/mL [facility] Parathyroid Hormone Intacton 10-16-2022 Parathyroid Hormone Intact 66.8 pg/mL Normal [facility] Comment on above: Order Comment: Reaso n for Exam Chronic kidney disease, stage 2 (mild) Result Comment: PERF ORMED BY: [facility] [address] [place] [address] PATHOLOGIST BLOOD BANK MANAGER RITA CONNER M.D. Performed By: #### G KAN #### Point of Care testing , Platelet mean volume Auto (B ld) [Entitic vol]Ordered By: Candace George on 10-16-2022 Platelet mean volume (Bld) [Entitic vol] 7.2 fL 6.3-10.7 [facility] Platelets Auto (Bld) [#/Vol] Ordered By: Candace George on 10-16-2022 Platelets (Bld) [#/Vol] 301 10*3/uL 150-450 [facility] Potassium [Moles/volume] in Serum or PlasmaOrdered By: AUTUMN Mehta on 10-16-2022 Potassium [Moles/Vol] 4.8 mmol/L 3.5-5.1 [facility] RBC Auto (Bld) [#/Vol]Ordere d By: Candace George on 10-16-2022 RBC (Bld) [#/Vol] 4.96 10*6/uL 3.60-5.00 [facility] Serum or plasma anion gap de terminationOrdered By: Sacha Mehta on 10-16-2022 Anion gap [Moles/Vol] 10.5 mmol/L 6.0-15.0 [facility] Serum or plasma erythropoiet in (EPO) measurement (units/volume)Ordered By: Candace George on 10-16-2022 Erythropoietin (EPO) Qn 72.0 mIU/mL 2.6-18.5 [facility] Comment on above: [employer] Uni[employer] DxI 800 Immunoassay SystemValues obtained with different assay methods or kits cannotbe used interchangeably. Results cannot be interpreted asabsolute evidence of the presence or absence of malignantdisease.Performed at: [employer] [facility] [place] [id number] Director: Donny Cary PhD, Phone: [phone] Sodium [Moles/volume] in Ser um or PlasmaOrdered By: Sacha Mehta on 10-16-2022 Sodium [Moles/Vol] 140 mmol/L 136-145 [facility] Thyroid Stimulating Hormoneo n 10-16-2022 TSH Qn 3.70 m[IU]/L Normal 0.45-5.33 [facility] Comment on above: Order Comment: Reaso n for Exam Essential hypertension Reason for Exam Chronic kidney disease, stage 2 (mild) Performed By: #### G LULS #### Point of Care testing , Thyrotropin [Units/volume] i n Serum or PlasmaOrdered By: Candace George on 10-16-2022 TSH Qn 3.70 m[IU]/L 0.45-5.33 [facility] Urea nitrogen [Mass/volume] in Serum or PlasmaOrdered By: Sacha Mehta on 10-16-2022 Urea nitrogen [Mass/Vol] 19 mg/dL 7-25 [facility] Vitamin D 25 Hydroxy Totalon 10-16-2022 Vitamin D 25 Hydroxy Total 21.1 ng/mL Low 30-100 [facility] Comment on above: Order Comment: Reaso n for Exam Essential hypertension Reason for Exam Chronic kidney disease, stage 2 (mild) Result Comment: ZOE MIN D STATUS 25([place])VITAMIN D RANGE (ng/mL) Deficient <20 Insufficient 20 to <30 Sufficient 30 to 100 Reference: Mariposa Kaminski, Bipin HANSON, et al. Evaluation,treatment, and prevention of vitamin D deficiency; an Endocrine Society clinical practice guideline. JCEM. 2010; 96(7):1911-. PERFORMED BY: [facility] [address] [place] [address] PATHOLOGIST BLOOD BANK MANAGER RITA CONNER M.D. Performed By: #### G LULS #### Point of Care testing , Vitamin D+Metabolites [Mass/ volume] in Serum or PlasmaOrdered By: Candace George on 10-16-2022 Vitamin D+Metabolites [Mass/Vol] 21.1 ng/mL 30- 100 [facility] Comment on above: VITAMIN D STATUS 25( [place])VITAMIN D RANGE (ng/mL) Deficient <20 Insufficient 20 to <30Sufficient 30 to 100Reference: Mariposa Kaminski, Bipin HANSON, et al. Evaluation,treatment, and prevention of vitamin D deficiency; an Endocrine Society clinical practice guideline. JCEM. 2010; 96(7):1911-30. WBC Auto (Bld) [#/Vol]Ordere d By: Candace George on 10-16-2022 WBC (Bld) [#/Vol] 16.0 10*3/uL 3.8-11.6 [facility] Aerobic cultureOrdered By: Venus Mehta on 10-15-2022 Bacteria identified Aer cx Nom (Unsp spec) [facility] Superficial Wound Cultureon 10-15-2022 Superficial Wound Culture Cellulitis of right lower extremity Result Tab Codes Moderate Normal Skin Neo 2 Days PERFORMED BY: [facility] [address] [place] [address] PATHOLOGIST BLOOD BANK MANAGER RITA CONNER M.D. Normal [facility] Comment on above: Performed By: #### C DT #### [facility] [address] [place] [address] [place] Glucose Glucometer (BldC) [M ass/Vol]Ordered By: CWSacha Mehta on 08-24-2022 Glucose [Mass/Vol] 77 mg/dL [facility] Comment on above: Random Glucose Refer ence Range is dependent on time and content of last meal. Glucose of more than 200 mg/dL in a nonstressed, ambulatory subject supports the diagnosis of Diabetes Mellitus. Glucose Poct Glucometerson 0 08-24-2022 Glucose [Mass/Vol] 77 mg/dL Normal [facility] Comment on above: Result Comment: [place] om Glucose Reference Range is dependent on time and content of last meal. Glucose of more than 200 mg/dL in a nonstressed, ambulatory subject supports the diagnosis of Diabetes Mellitus. PERFORMED BY: [place] [id number] PATHOLOGIST BLOOD BANK MANAGER RITA CONNER M.D. Performed By: #### C DT #### [facility] [address] [place] [address] [facility] Aerobic Cultureon 08-20-2022 Aerobic Culture Reason for Exam Woun d drainage Foot,Left Moderate Normal Skin Neo 2 Days Reason for Exam Wound drainage Foot,Left No Anaerobes Isolated 3 Days Reason for Exam Wound drainage Foot,Left Gram Stain Result 1+ White Blood Cells 2+ Gram Positive Bacilli Rare Gram Positive Cocci PERFORMED BY: [address] [address] PATHOLOGIST BLOOD BANK MANAGER RITA CONNER M.D. Normal [facility] Comment on above: Performed By: #### C DT #### [facility] [address] [place] [address] [facility] Aerobic cultureOrdered By: Geremias Mon on 08-20-2022 Bacteria identified Aer cx N om (Unsp spec) [address] [facility] Anaerobic cultureOrdered By: Zaid Mon on 08-20-2022 Bacteria identified Anaer cx Nom (Unsp spec) No Anaerobes Isolated 3 Days [facility] Basic Metabolic Panelon 06- Anion gap [Moles/Vol] 9.6 mmol/L Normal 6.0-15.0 [facility] Comment on above: Performed By: #### G ELBALS #### Point of Care testing , Calcium [Mass/Vol] 8.3 mg/dL Low 8.6-10.3 [facility] Comment on above: Result Comment: PERF ORMED BY: [facility] [place] [address] PATHOLOGIST BLOOD BANK MANAGER RITA CONNER M.D. Performed By: #### G ELBALS #### Point of Care testing , Chloride [Moles/Vol] 103 mmol/L Normal 98-107 [facility] Comment on above: Performed By: #### G LULS #### Point of Care testing , CO2 [Moles/Vol] 32.5 mmol/L High 21.0-31.0 [facility] Comment on above: Performed By: #### G LULS #### Point of Care testing , Creatinine [Mass/Vol] 1.06 mg/dL Normal 0.60-1.20 [facility] Comment on above: Performed By: #### G LULS #### Point of Care testing , GFR/1.73 sq M.predicted MDRD (S/P/Bld) [Vol rate/Area] mL/min/{1.73_m2} Normal [facility] Comment on above: Performed By: #### G LULS #### Point of Care testing , Glucose [Mass/Vol] 75 mg/dL Normal 70-100 [facility] Comment on above: Result Comment: [place] om Glucose Reference Range is dependent on time and content of last meal. Glucose of more than 200 mg/dL in a nonstressed, ambulatory subject supports the diagnosis of Diabetes Mellitus. ADA recommended reference range Performed By: #### G LULS #### Point of Care testing , Potassium [Moles/Vol] 5.1 mmol/L Normal 3.5-5.1 [facility] Comment on above: Performed By: #### G LULS #### Point of Care testing , Sodium [Moles/Vol] 140 mmol/L Normal 136-145 [facility] Comment on above: Performed By: #### G LULS #### Point of Care testing , Urea nitrogen [Mass/Vol] 18 mg/dL Normal 7-25 [facility] Comment on above: Performed By: #### G LULS #### Point of Care testing , Basophils Auto (Bld) [#/Vol] Ordered By: [facility] Kanu Mehta on 08-20-2022 Basophils (Bld) [#/Vol] 0.1 10*3/uL 0.0-0.2 [facility] Basophils/100 WBC Auto (Bld) Ordered By: [facility] Kanu Mehta on 08-20-2022 Basophils/100 WBC (Bld) 0.7 % . [facility] Calcium [Mass/volume] in Ser um or PlasmaOrdered By: [facility] Kanu Mehta on 08-20-2022 Calcium [Mass/Vol] 8.3 mg/dL 8.6-10.3 [facility] Carbon dioxide, total [Moles /volume] in Serum or PlasmaOrdered By: [facility] Kanu Mehta on 08-20-2022 CO2 [Moles/Vol] 32.5 mmol/L 21.0-31.0 [facility] Chloride [Moles/volume] in S jamshid or PlasmaOrdered By: [facility] Kanu Mehta on 08-20-2022 Chloride [Moles/Vol] 103 mmol/L 98-107 [facility] Complete Blood Count Auto Di ffon 08-20-2022 Basophils (Bld) [#/Vol] 0.1 10*3/uL Normal 0.0-0.2 [facility] Comment on above: Result Comment: PERF ORMED BY: [facility] [address] [place] [address] PATHOLOGIST BLOOD BANK MANAGER RITA CONNER M.D. Performed By: #### G LULS #### Point of Care testing , Basophils/100 WBC (Bld) 0.7 % Normal . [facility] Comment on above: Performed By: #### G LULS #### Point of Care testing , Eosinophils (Bld) [#/Vol] 0.2 10*3/uL Normal 0.0-0.45 [facility] Comment on above: Performed By: #### G ELBALS #### Point of Care testing , Eosinophils/100 WBC (Bld) 1.8 % Normal . [facility] Comment on above: Performed By: #### G ELBALS #### Point of Care testing , Erythrocyte distribution wid th (RBC) [Ratio] 14.5 % Normal 11.9-15.3 [facility] Comment on above: Performed By: #### G ELBALS #### Point of Care testing , Hematocrit (Bld) [Volume fraction] 46.1 % Normal 34.0-46.4 [facility] Comment on above: Performed By: #### G ELBALS #### Point of Care testing , Hemoglobin (Bld) [Mass/Vol] 15.4 g/dL Normal 11.8-15. 4 [facility] Comment on above: Performed By: #### G ELBALS #### Point of Care testing , Lymphocytes (Bld) [#/Vol] 3.9 10*3/uL Normal 1.00-4.8 [facility] Comment on above: Performed By: #### G ELBALS #### Point of Care testing , Lymphocytes/100 WBC (Bld) 27.4 % Normal . [facility] Comment on above: Performed By: #### G ELBALS #### Point of Care testing , MCH (RBC) [Entitic mass] 31.5 pg Normal 24.7-34.3 [facility] Comment on above: Performed By: #### G ELBALS #### Point of Care testing , MCV (RBC) [Entitic vol] 94.1 fL Normal 80-100 [facility] Comment on above: Performed By: #### G ELBALS #### Point of Care testing , Mean Corpuscular HGB Conc 33.4 g/dL Normal 32.0-35.0 [facility] Comment on above: Performed By: #### G ELBALS #### Point of Care testing , Monocytes (Bld) [#/Vol] 1.0 10*3/uL High 0.0-0.8 [facility] Comment on above: Performed By: #### G ELBALS #### Point of Care testing , Monocytes/100 WBC (Bld) 6.8 % Normal . [facility] Comment on above: Performed By: #### G LULS #### Point of Care testing , Neutrophils (Bld) [#/Vol] 8.9 10*3/uL High 1.8-7.7 [facility] Comment on above: Performed By: #### G LULS #### Point of Care testing , Neutrophils/100 WBC (Bld) 63.3 % Normal . [facility] Comment on above: Performed By: #### G ELBALS #### Point of Care testing , NRBC% 0.1 /100{WBC} Normal 0-0.5 [facility] Comment on above: Performed By: #### G ELBALS #### Point of Care testing , Platelet mean volume (Bld) [Entitic vol] 7.3 fL Normal 6.3-10.7 [facility] Comment on above: Performed By: #### G ELBALS #### Point of Care testing , Platelets (Bld) [#/Vol] 277 10*3/uL Normal 150-450 [facility] Comment on above: Performed By: #### G ELBALS #### Point of Care testing , RBC (Bld) [#/Vol] 4.90 10*6/uL Normal 3.60-5.00 [facility] Comment on above: Performed By: #### G ELBALS #### Point of Care testing , WBC (Bld) [#/Vol] 14.1 10*3/uL High 3.8-11.6 [facility] Comment on above: Performed By: #### G LULS #### Point of Care testing , Creatinine [Mass/volume] in Serum or PlasmaOrdered By: AUTUMN Mehta on 08-20-2022 Creatinine [Mass/Vol] 1.06 mg/dL 0.60-1.20 [facility] Eosinophils Auto (Bld) [#/Vo l]Ordered By: AUTUMN Mehta on 08-20-2022 Eosinophils (Bld) [#/Vol] 0.2 10*3/uL 0.0-0.45 [facility] Eosinophils/100 WBC Auto (Bl d)Ordered By: AUTUMN Mehta on 08-20-2022 Eosinophils/100 WBC (Bld) 1.8 % . [facility] Erythrocyte distribution wid th Auto (RBC) [Ratio]Ordered By: AUTUMN Mehta on 08-20-2022 Erythrocyte distribution wid th (RBC) [Ratio] 14.5 % 11.9-15.3 [facility] Glucose [Mass/volume] in Ser um or PlasmaOrdered By: AUTUMN Mehta on 08-20-2022 Glucose [Mass/Vol] 75 mg/dL 70-100 [facility] Comment on above: ADA recommended refe rence rangeRandom Glucose Reference Range is dependent on time and content of last meal. Glucose of more than 200 mg/dL in a nonstressed, ambulatory subject supports the diagnosis of Diabetes Mellitus. Gram stain for investigation of transfusion reactionOrdered By: Zaid Mon on 08-20-2022 Microscopic observation Gram stain Nom (Unsp spec) [facility] Hematocrit Auto (Bld) [Volum e fraction]Ordered By: AUTUMN Mehta on 08-20-2022 Hematocrit (Bld) [Volume fraction] 46.1 % 3 4.0-46.4 [facility] Hemoglobin [Mass/volume] in BloodOrdered By: AUTUMN Mehta on 08-20-2022 Hemoglobin (Bld) [Mass/Vol] 15.4 g/dL 11.8-15. 4 [facility] Leukocytes [#/volume] correc marquez for nucleated erythrocytes in Blood by Automated counOrdered By: AUTUMN Mehta on 08-20-2022 WBC corrected for nucl RBC A uto (Bld) [#/Vol] 14.1 10*3/uL 3.8-11.6 [facility] Lymphocytes Auto (Bld) [#/Vo l]Ordered By: AUTUMN Mehta on 08-20-2022 Lymphocytes (Bld) [#/Vol] 3.9 10*3/uL 1.00-4.8 [facility] Lymphocytes/100 WBC Auto (Bl d)Ordered By: [facility] Kanu Mehta on 08-20-2022 Lymphocytes/100 WBC (Bld) 27.4 % . [facility] MCH Auto (RBC) [Entitic mass ]Ordered By: [facility] Kanu Mehta on 08-20-2022 MCH (RBC) [Entitic mass] 31.5 pg 24.7-34.3 [facility] MCHC Auto (RBC) [Mass/Vol]Or dered By: [facility] Kanu Mehta on 08-20-2022 MCHC (RBC) [Mass/Vol] 33.4 g/dL 32.0-35.0 [facility] MCV Auto (RBC) [Entitic vol] Ordered By: [facility] Kanu Mehta on 08-20-2022 MCV (RBC) [Entitic vol] 94.1 fL 80-100 [facility] Monocytes Auto (Bld) [#/Vol] Ordered By: [facility] Kanu Mehta on 08-20-2022 Monocytes (Bld) [#/Vol] 1.0 10*3/uL 0.0-0.8 [facility] Monocytes/100 WBC Auto (Bld) Ordered By: [facility] Kanu Mehta on 08-20-2022 Monocytes/100 WBC (Bld) 6.8 % . [facility] Neutrophils Auto (Bld) [#/Vo l]Ordered By: [facility] Kanu Mehta on 08-20-2022 Neutrophils (Bld) [#/Vol] 8.9 10*3/uL 1.8-7.7 [facility] Neutrophils/100 WBC Auto (Bl d)Ordered By: [facility] Kanu Mehta on 08-20-2022 Neutrophils/100 WBC (Bld) 63.3 % . [facility] No Panel InformationOrdered By: Sacha eMhta on 08-20-2022 Estimated GFR (CKD-EPI) > 60.0 mL/Min [facility] Creatinine Clearanc e (Chem N/A [facility] Nucleated erythrocytes [Pres ence] in Blood by Automated countOrdered By: [facility] Kanu Mehta on 08-20-2022 Nucleated RBC Auto Ql (Bld) 0.1 /100{WBC} 0-0.5 [facility] Platelet mean volume Auto (B ld) [Entitic vol]Ordered By: [facility] Kanu Mehta on 08-20-2022 Platelet mean volume (Bld) [Entitic vol] 7.3 fL 6.3-10.7 [facility] Platelets Auto (Bld) [#/Vol] Ordered By: [facility] Kanu Mehta on 08-20-2022 Platelets (Bld) [#/Vol] 277 10*3/uL 150-450 [facility] Potassium [Moles/volume] in Serum or PlasmaOrdered By: [facility] Kanu Mehta on 08-20-2022 Potassium [Moles/Vol] 5.1 mmol/L 3.5-5.1 [facility] RBC Auto (Bld) [#/Vol]Ordere d By: [facility] Kanu Mehta on 08-20-2022 RBC (Bld) [#/Vol] 4.90 10*6/uL 3.60-5.00 [facility] Serum or plasma anion gap de terminationOrdered By: [facility] Kanu Mehta on 08-20-2022 Anion gap [Moles/Vol] 9.6 mmol/L 6.0-15.0 [facility] Sodium [Moles/volume] in Ser um or PlasmaOrdered By: [facility] Kanu Mehta on 08-20-2022 Sodium [Moles/Vol] 140 mmol/L 136-145 [facility] Superficial Wound Cultureon 08-20-2022 Superficial Wound Culture Reason for Exa m Wound drainage Foot,Right Moderate Normal Skin Neo 2 Days PERFORMED BY: [place] [address] PATHOLOGIST BLOOD BANK MANAGER RITA CONNER M.D. Normal [facility] Comment on above: Performed By: #### C DT #### [address] Urea nitrogen [Mass/volume] in Serum or PlasmaOrdered By: [facility] Kanu Mehta on 08-20-2022 Urea nitrogen [Mass/Vol] 18 mg/dL 7-25 [facility] WBC Auto (Bld) [#/Vol]Ordere d By: [facility] Kanu Mehta on 08-20-2022 WBC (Bld) [#/Vol] 14.1 10*3/uL 3.8-11.6 [facility] US ankle/arm indiceson 07-31 US ankle/arm indices [facility] [place] [address] [place] [address] Ultrasound Report Signed Patient: Ema Neff MR#: [id number] 15 : 1965 Acct:[id number] Age/Sex: 57 / F ADM Date: 07/30/22 Loc: [facility] Room: Type: [facility] Attending Dr: Zaid Mon MD Ordering Provider: Zaid Mon MD Date of Service: 07/30/22 US/US ankle/arm indices: I70.213 Copies to: Zaid Mon MD LOWER EXTREMITY SEGMENTAL ARTERIAL DOPSCAN (PVR) INDICATION: Surveillance study after left leg bypass PROCEDURE: Right arm blood pressure is 137 , left is 147 . Pressures of the right leg are 95 at the ankle using the posterior tibial artery and 130 at the ankle using the dorsalis pedis artery with ankle-brachial index of 0.86,0.88 0.79,0.65 . Pressures of the left leg are 116 at the ankle using the posterior tibial artery and 126 at the ankle using the dorsalis pedis artery with ankle-brachial index of 0.86 0.79,0.65 . Wave forms by plethysmography are biphasic, bilaterally. 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 Impression dictated by: Zaid Mon MD07/31/2022 3:42 PM Dictation Location: [place] [address] Tech: Debbie Leon Transcribed By: GÉNESIS 07/31/22 1542 Dictated By: Zaid Mon MD 07/31/22 1541 Signed By: 07/31/22 1542 [facility] US arterial duplex LE LTon 0 07-31-2022 US arterial duplex LE LT [place] [address] Ultrasound Report Signed Patient: Ema Neff MR#: [id number] 15 : 1965 Acct:[id number] Age/Sex: 57 / F ADM Date: 07/30/22 Loc: [facility] Room: Type: [facility] Attending Dr: Zaid Mon MD Ordering Provider: Zaid Mon MD Date of Service: 07/30/22 US/US arterial duplex LE LT: I70.213 Copies to: Zaid Mon MD Left lower extremity arterial duplex evaluation INDICATIONS: Bypass graft surveillance FINDINGS: Left lower extremity: The bypass graft is patent. No concerning elevated nor low velocities were identified. US/US arterial duplex LE LT IMPRESSION: Patent bypass graft. Impression dictated by: Zaid Mon MD07/31/2022 3:41 PM Dictation Location: [facility]- Tech: Julisa Mattie Transcribed By: [facility] 07/31/22 1541 Dictated By: Zaid Mon MD 07/31/22 1540 Signed By: 07/31/22 1541 [facility] Glucose Glucometer (BldC) [M ass/Vol]Ordered By: AUTUMN Mehta on 07-10-2022 Glucose [Mass/Vol] 97 mg/dL [facility] Comment on above: Random Glucose Refer ence Range is dependent on time and content of last meal. Glucose of more than 200 mg/dL in a nonstressed, ambulatory subject supports the diagnosis of Diabetes Mellitus. Glucose Poct Glucometerson 0 07-10-2022 Commemt1 Glu2: Cleaned Meter [facility] Comment on above: Result Comment: PERF ORMED BY: [place] [address] PATHOLOGIST BLOOD BANK MANAGER RITA CONNER M.D. Performed By: #### G LULS #### Point of Care testing , Glucose [Mass/Vol] 97 mg/dL Normal [facility] Comment on above: Result Comment: [place] Glucose Reference Range is dependent on time and content of last meal. Glucose of more than 200 mg/dL in a nonstressed, ambulatory subject supports the diagnosis of Diabetes Mellitus. Performed By: #### G LULS #### Point of Care testing , No Panel InformationOrdered By: AUTUMN Mehta on 07-10-2022 Bedside Glucose Comment Glu2: cleaned meter [facility] Basic Metabolic Panelon 06-14 Anion gap [Moles/Vol] 11.4 mmol/L Normal 6.0-15.0 [facility] Comment on above: Order Comment: Reaso n for Exam Preoperative testing Performed By: #### G LULS #### Point of Care testing , Calcium [Mass/Vol] 8.9 mg/dL Normal 8.6-10.3 [facility] Comment on above: Order Comment: Reaso n for Exam Preoperative testing Result Comment: PERF ORMED BY: [facility] [address] [place] [address] PATHOLOGIST BLOOD BANK MANAGER RITA CONNER M.D. Performed By: #### G LULS #### Point of Care testing , Chloride [Moles/Vol] 103 mmol/L Normal 98-107 [facility] Comment on above: Order Comment: Reaso n for Exam Preoperative testing Performed By: #### G LULS #### Point of Care testing , CO2 [Moles/Vol] 30.3 mmol/L Normal 21.0-31.0 [facility] Comment on above: Order Comment: Reaso n for Exam Preoperative testing Performed By: #### G LULS #### Point of Care testing , Creatinine [Mass/Vol] 0.96 mg/dL Normal 0.60-1.20 [facility] Comment on above: Order Comment: Reaso n for Exam Preoperative testing Performed By: #### G LULS #### Point of Care testing , GFR/1.73 sq M.predicted MDRD (S/P/Bld) [Vol rate/Area] mL/min/{1.73_m2} Normal [facility] Comment on above: Order Comment: Reaso n for Exam Preoperative testing Performed By: #### G LULS #### Point of Care testing , Glucose [Mass/Vol] 97 mg/dL Normal 70-100 [facility] Comment on above: Order Comment: Reaso n for Exam Preoperative testing Result Comment: [place] Glucose Reference Range is dependent on time and content of last meal. Glucose of more than 200 mg/dL in a nonstressed, ambulatory subject supports the diagnosis of Diabetes Mellitus. ADA recommended reference range Performed By: #### G LULS #### Point of Care testing , Potassium [Moles/Vol] 4.7 mmol/L Normal 3.5-5.1 [facility] Comment on above: Order Comment: Reaso n for Exam Preoperative testing Performed By: #### G LULS #### Point of Care testing , Sodium [Moles/Vol] 140 mmol/L Normal 136-145 [facility] Comment on above: Order Comment: Reaso n for Exam Preoperative testing Performed By: #### G LULS #### Point of Care testing , Urea nitrogen [Mass/Vol] 13 mg/dL Normal 7-25 [facility] Comment on above: Order Comment: Reaso n for Exam Preoperative testing Performed By: #### G LULS #### Point of Care testing , Basophils Auto (Bld) [#/Vol] Ordered By: Sacha Mehta on 07-07-2022 Basophils (Bld) [#/Vol] 0.1 10*3/uL 0.0-0.2 [facility] Basophils/100 WBC Auto (Bld) Ordered By: [facility] Kanu Mehta on 07-07-2022 Basophils/100 WBC (Bld) 1.0 % . [facility] Calcium [Mass/volume] in Ser um or PlasmaOrdered By: Sacha Mehta on 07-07-2022 Calcium [Mass/Vol] 8.9 mg/dL 8.6-10.3 [facility] Carbon dioxide, total [Moles /volume] in Serum or PlasmaOrdered By: Sacha Mehta on 07-07-2022 CO2 [Moles/Vol] 30.3 mmol/L 21.0-31.0 [facility] Chloride [Moles/volume] in S jamshid or PlasmaOrdered By: AUTUMN Mehta on 07-07-2022 Chloride [Moles/Vol] 103 mmol/L 98-107 [facility] Complete Blood Count Auto Di ffon 07-07-2022 Basophils (Bld) [#/Vol] 0.1 10*3/uL Normal 0.0-0.2 [facility] Comment on above: Order Comment: Reaso n for Exam Preoperative testing Result Comment: PERF ORMED BY: [facility] [address] [place] [address] PATHOLOGIST BLOOD BANK MANAGER RITA CONNER M.D. Performed By: #### G LULS #### Point of Care testing , Basophils/100 WBC (Bld) 1.0 % Normal . [facility] Comment on above: Order Comment: Reaso n for Exam Preoperative testing Performed By: #### G LULS #### Point of Care testing , Eosinophils (Bld) [#/Vol] 0.3 10*3/uL Normal 0.0-0.45 [facility] Comment on above: Order Comment: Reaso n for Exam Preoperative testing Performed By: #### G LULS #### Point of Care testing , Eosinophils/100 WBC (Bld) 1.9 % Normal . [facility] Comment on above: Order Comment: Reaso n for Exam Preoperative testing Performed By: #### G LULS #### Point of Care testing , Erythrocyte distribution wid th (RBC) [Ratio] 14.4 % Normal 11.9-15.3 [facility] Comment on above: Order Comment: Reaso n for Exam Preoperative testing Performed By: #### G LULS #### Point of Care testing , Hematocrit (Bld) [Volume fraction] 51.2 % High 34.0-46.4 [facility] Comment on above: Order Comment: Reaso n for Exam Preoperative testing Performed By: #### G LULS #### Point of Care testing , Hemoglobin (Bld) [Mass/Vol] 16.8 g/dL High 11.8-15. 4 [facility] Comment on above: Order Comment: Reaso n for Exam Preoperative testing Performed By: #### G LULS #### Point of Care testing , Lymphocytes (Bld) [#/Vol] 2.7 10*3/uL Normal 1.00-4.8 [facility] Comment on above: Order Comment: Reaso n for Exam Preoperative testing Performed By: #### G LULS #### Point of Care testing , Lymphocytes/100 WBC (Bld) 20.0 % Normal . [facility] Comment on above: Order Comment: Reaso n for Exam Preoperative testing Performed By: #### G LULS #### Point of Care testing , MCH (RBC) [Entitic mass] 31.3 pg Normal 24.7-34.3 [facility] Comment on above: Order Comment: Reaso n for Exam Preoperative testing Performed By: #### G LULS #### Point of Care testing , MCV (RBC) [Entitic vol] 95.4 fL Normal 80-100 [facility] Comment on above: Order Comment: Reaso n for Exam Preoperative testing Performed By: #### G LULS #### Point of Care testing , Mean Corpuscular HGB Conc 32.8 g/dL Normal 32.0-35.0 [facility] Comment on above: Order Comment: Reaso n for Exam Preoperative testing Performed By: #### G LULS #### Point of Care testing , Monocytes (Bld) [#/Vol] 0.8 10*3/uL Normal 0.0-0.8 [facility] Comment on above: Order Comment: Reaso n for Exam Preoperative testing Performed By: #### G LULS #### Point of Care testing , Monocytes/100 WBC (Bld) 6.0 % Normal . [facility] Comment on above: Order Comment: Reaso n for Exam Preoperative testing Performed By: #### G LULS #### Point of Care testing , Neutrophils (Bld) [#/Vol] 9.6 10*3/uL High 1.8-7.7 [facility] Comment on above: Order Comment: Reaso n for Exam Preoperative testing Performed By: #### G LULS #### Point of Care testing , Neutrophils/100 WBC (Bld) 71.1 % Normal . [facility] Comment on above: Order Comment: Reaso n for Exam Preoperative testing Performed By: #### G ELBALS #### Point of Care testing , NRBC% 0.1 /100{WBC} Normal 0-0.5 [facility] Comment on above: Order Comment: Reaso n for Exam Preoperative testing Performed By: #### G ELBALS #### Point of Care testing , Platelet mean volume (Bld) [Entitic vol] 7.3 fL Normal 6.3-10.7 [facility] Comment on above: Order Comment: Reaso n for Exam Preoperative testing Performed By: #### G ELBALS #### Point of Care testing , Platelets (Bld) [#/Vol] 324 10*3/uL Normal 150-450 [facility] Comment on above: Order Comment: Reaso n for Exam Preoperative testing Performed By: #### G KAN #### Point of Care testing , RBC (Bld) [#/Vol] 5.36 10*6/uL High 3.60-5.00 [facility] Comment on above: Order Comment: Reaso n for Exam Preoperative testing Performed By: #### G ELBALS #### Point of Care testing , WBC (Bld) [#/Vol] 13.4 10*3/uL High 3.8-11.6 [facility] Comment on above: Order Comment: Reaso n for Exam Preoperative testing Performed By: #### G KAN #### Point of Care testing , Creatinine [Mass/volume] in Serum or PlasmaOrdered By: AUTUMN Mehta on 07-07-2022 Creatinine [Mass/Vol] 0.96 mg/dL 0.60-1.20 [facility] ECG 12 lead ECGon 07-07-2022 ECG 12 lead ECG [facility] [place] [address] Electrocardiograph Report Signed Patient: Ema Neff MR#: [id number] 15 : 1965 Acct:[id number] Age/Sex: 57 / F ADM Date: 07/07/22 Loc: Room: Type: [facility] Attending Dr: Kanu Mehta DPM, Ordering Provider: Kanu Mehta DPM, MS, S Date of Service: 07/07/22 ECG/ECG 12 lead ECG: preoperative testing;Preoperative testing Copies to: Test Reason : Blood Pressure : / mmHG Vent. Rate : 096 BPM Atrial Rate : 096 BPM P-R Int : 178 ms QRS Dur : 088 ms QT Int : 352 ms P-R-T Axes : 059 025 061 degrees QTc Int : 444 ms Normal sinus rhythm Possible Left atrial enlargement Low voltage QRS Borderline ECG When compared with ECG of 06-NOV-2021 12:28, No significant change was found Confirmed by JARVIS GALINDO DO ([id number]) on 07/07/2022 12:11:43 PM Referred By: Electronically Signed By:JARVIS GALINDO DO Transcribed By: MUS Signed By Jarvis Galindo DO 07/07 1211 Normal [facility] Eosinophils Auto (Bld) [#/Vo l]Ordered By: [facility] Kanu Mehta on 07-07-2022 Eosinophils (Bld) [#/Vol] 0.3 10*3/uL 0.0-0.45 [facility] Eosinophils/100 WBC Auto (Bl d)Ordered By: Sacha Mehta on 07-07-2022 Eosinophils/100 WBC (Bld) 1.9 % . [facility] Erythrocyte distribution wid th Auto (RBC) [Ratio]Ordered By: Sacha Mehta on 07-07-2022 Erythrocyte distribution wid th (RBC) [Ratio] 14.4 % 11.9-15.3 [facility] Glucose [Mass/volume] in Ser um or PlasmaOrdered By: Sacha Mehta on 07-07-2022 Glucose [Mass/Vol] 97 mg/dL 70-100 [facility] Comment on above: ADA recommended refe rence rangeRandom Glucose Reference Range is dependent on time and content of last meal. Glucose of more than 200 mg/dL in a nonstressed, ambulatory subject supports the diagnosis of Diabetes Mellitus. Hematocrit Auto (Bld) [Volum e fraction]Ordered By: [facility] Kanu Mehta on 07-07-2022 Hematocrit (Bld) [Volume fraction] 51.2 % 3 4.0-46.4 [facility] Hemoglobin [Mass/volume] in BloodOrdered By: Sacha Mehta on 07-07-2022 Hemoglobin (Bld) [Mass/Vol] 16.8 g/dL 11.8-15. 4 [facility] Leukocytes [#/volume] correc marquez for nucleated erythrocytes in Blood by Automated counOrdered By: [facility] Kanu Mehta on 07-07-2022 WBC corrected for nucl RBC A uto (Bld) [#/Vol] 13.4 10*3/uL 3.8-11.6 [facility] Lymphocytes Auto (Bld) [#/Vo l]Ordered By: [facility] Kanu Mehta on 07-07-2022 Lymphocytes (Bld) [#/Vol] 2.7 10*3/uL 1.00-4.8 [facility] Lymphocytes/100 WBC Auto (Bl d)Ordered By: [facility] Kanu Mehta on 07-07-2022 Lymphocytes/100 WBC (Bld) 20.0 % . [facility] MCH Auto (RBC) [Entitic mass ]Ordered By: Sacha Mehta on 07-07-2022 MCH (RBC) [Entitic mass] 31.3 pg 24.7-34.3 [facility] MCHC Auto (RBC) [Mass/Vol]Or dered By: [facility] Kanu Mehta on 07-07-2022 MCHC (RBC) [Mass/Vol] 32.8 g/dL 32.0-35.0 [facility] MCV Auto (RBC) [Entitic vol] Ordered By: [facility] Kanu Mehta on 07-07-2022 MCV (RBC) [Entitic vol] 95.4 fL 80-100 [facility] Monocytes Auto (Bld) [#/Vol] Ordered By: [facility] Kanu Mehta on 07-07-2022 Monocytes (Bld) [#/Vol] 0.8 10*3/uL 0.0-0.8 [facility] Monocytes/100 WBC Auto (Bld) Ordered By: AUTUMN Mehta on 07-07-2022 Monocytes/100 WBC (Bld) 6.0 % . [facility] Neutrophils Auto (Bld) [#/Vo l]Ordered By: Sacha Mehta on 07-07-2022 Neutrophils (Bld) [#/Vol] 9.6 10*3/uL 1.8-7.7 [facility] Neutrophils/100 WBC Auto (Bl d)Ordered By: Sacha Mehta on 07-07-2022 Neutrophils/100 WBC (Bld) 71.1 % . [facility] No Panel InformationOrdered By: AUTUMN Mehta on 07-07-2022 Estimated GFR (CKD-EPI) > 60.0 mL/Min [facility] Creatinine Clearanc e (Chem N/A [facility] Nucleated erythrocytes [Pres ence] in Blood by Automated countOrdered By: Sacha Mehta on 07-07-2022 Nucleated RBC Auto Ql (Bld) 0.1 /100{WBC} 0-0.5 [facility] Platelet mean volume Auto (B ld) [Entitic vol]Ordered By: Sacha Mehta on 07-07-2022 Platelet mean volume (Bld) [Entitic vol] 7.3 fL 6.3-10.7 [facility] Platelets Auto (Bld) [#/Vol] Ordered By: Sacha Mehta on 07-07-2022 Platelets (Bld) [#/Vol] 324 10*3/uL 150-450 [facility] Potassium [Moles/volume] in Serum or PlasmaOrdered By: Sacha Mehta on 07-07-2022 Potassium [Moles/Vol] 4.7 mmol/L 3.5-5.1 [facility] RBC Auto (Bld) [#/Vol]Ordere d By: Sacha Mehta on 07-07-2022 RBC (Bld) [#/Vol] 5.36 10*6/uL 3.60-5.00 [facility] Serum or plasma anion gap de terminationOrdered By: [facility] Kanu Mehta on 07-07-2022 Anion gap [Moles/Vol] 11.4 mmol/L 6.0-15.0 [facility] Sodium [Moles/volume] in Ser um or PlasmaOrdered By: [facility] Kanu Mehta on 07-07-2022 Sodium [Moles/Vol] 140 mmol/L 136-145 [facility] Urea nitrogen [Mass/volume] in Serum or PlasmaOrdered By: [facility] Kanu Mehta on 07-07-2022 Urea nitrogen [Mass/Vol] 13 mg/dL 10-06 [facility] WBC Auto (Bld) [#/Vol]Ordere d By: [facility] Kanu Mehta on 07-07-2022 WBC (Bld) [#/Vol] 13.4 10*3/uL 3.8-11.6 [facility] Aerobic cultureOrdered By: Venus Kanu Mehta on 07-01-2022 Bacteria identified Aer cx N om (Unsp spec) No Growth 2 Days [facility] Superficial Wound Cultureon 07-01-2022 Superficial Wound Culture Reason for Exa m Abscess of toe of left foot Toe,Left Fourth No Growth 2 Days PERFORMED BY: [place] [address] PATHOLOGIST BLOOD BANK MANAGER RITA CONNER M.D. [facility] Comment on above: Performed By: #### G LULS #### Point of Care testing , US ankle/arm indiceson 04-30 US ankle/arm indices [place] [address] Ultrasound Report Signed Patient: Ema Neff MR#: [id number] 15 : 1965 Acct:[id number] Age/Sex: 57 / F ADM Date: 04/30/22 [facility]: [facility] Room: Type: [facility] Attending Dr: Zaid Mon MD Ordering Provider: Zaid Mon MD Date of Service: 04/30/22 US/US ankle/arm indices: BILATERAL Copies to: Zaid Mon MD LOWER EXTREMITY SEGMENTAL ARTERIAL DOPSCAN (PVR) INDICATION: Left foot ulcer, left leg bypass, surveillance study PROCEDURE: Right arm blood pressure is 100 , left is 104 . Pressures at the right ankle are 93 using the posterior tibial artery, and 120 using the dorsalis pedis artery with ankle-brachial index of 1.13,0.89 1.26,1.15 . Pressures at the left ankle are 117 using the posterior tibial artery, and 131 with ankle-brachial index of 1.13,0.89 1.26 . Wave forms by plethysmography are normal. US/US ankle/arm indices IMPRESSION: NO HEMODYNAMICALLY SIGNIFICANT PERIPHERAL VASCULAR OCCLUSIVE DISEASE AT REST IN EITHER LOWER EXTREMITY. Impression dictated by: Zaid Mon MD04/30/2022 12:24 PM Dictation Location: [facility]- Tech: Debbie James Transcribed By: GÉNESIS 04/30/22 1224 Dictated By: Zaid Mon MD 04/30/221222 Signed By: 04/30/22 1224 [facility] US arterial duplex LE LTon 0 04-30-2022 US arterial duplex LE LT [facility] [place] [address] [place] [address] Ultrasound Report Signed Patient: Ema Neff MR#: [id number] 15 : 1965 Acct:[id number] Age/Sex: 57 / F ADM Date: 04/30/22 Loc: [facility] Room: Type: [facility] Attending Dr: Zaid Mon MD Ordering Provider: Zaid Mon MD Date of Service: 04/30/22 US/US arterial duplex LE LT: LEFT LEG GRAFT FLOW Copies to: Zaid Mon MD Left lower extremity arterial duplex evaluation INDICATIONS: Surveillance study for left leg bypass Findings: Left lower extremity: The bypass is patent. There are no significantly elevated or diminished velocities. US/US arterial duplex LE LT Impression: Patent bypass. Impression dictated by: Zaid Mon MD04/30/2022 12:24 PM Dictation Location: [facility]- Tech: Julisa Phleps Transcribed By: GÉNESIS 04/30/22 1224 Dictated By: Zaid Mon MD 04/30/22 1224 Signed By: 04/30/22 1224 Normal [facility] Glucose Glucometer (BldC) [M ass/Vol]Ordered By: AUTUMN Mehta on 03-27-2022 Glucose [Mass/Vol] 87 mg/dL [facility] Comment on above: Random Glucose Refer ence Range is dependent on time and content of last meal. Glucose of more than 200 mg/dL in a nonstressed, ambulatory subject supports the diagnosis of Diabetes Mellitus. Glucose Poct Glucometerson 0 03-27-2022 Commemt1 Glu2: Cleaned Meter Normal [facility] Comment on above: Result Comment: PERF ORMED BY: [facility] [address] [facility] [place] [address] PATHOLOGIST BLOOD BANK MANAGER RITA CONNER M.D. Performed By: #### G LULS #### Point of Care testing , Glucose [Mass/Vol] 87 mg/dL Normal [facility] Comment on above: Result Comment: [place] [facility] Glucose Reference Range is dependent on time and content of last meal. Glucose of more than 200 mg/dL in a nonstressed, ambulatory subject supports the diagnosis of Diabetes Mellitus. Performed By: #### G LULS #### Point of Care testing , Glucose [Mass/Vol] 109 mg/dL Normal [facility] Comment on above: Result Comment: [place] [facility] Glucose Reference Range is dependent on time and content of last meal. Glucose of more than 200 mg/dL in a nonstressed, ambulatory subject supports the diagnosis of Diabetes Mellitus. PERFORMED BY: [facility] [address] [place] [address] PATHOLOGIST BLOOD BANK MANAGER RITA CONNER M.D. Performed By: #### G LULS #### Point of Care testing , No Panel InformationOrdered By: AUTUMN Mehta on 03-27-2022 Bedside Glucose Comment Glu2: cleaned meter [facility] Albumin [Mass/volume] in Ser um or PlasmaOrdered By: AUTUMN Mehta on 03-25-2022 Albumin [Mass/Vol] 3.4 g/dL 3.2-5.5 [facility] Basophils Auto (Bld) [#/Vol] Ordered By: [facility] Kanu Pena Melissa on 03-25-2022 Basophils (Bld) [#/Vol] 0.1 10*3/uL 0.0-0.2 [facility] Basophils/100 WBC Auto (Bld) Ordered By: [facility] Kanu Becky Melissa on 03-25-2022 Basophils/100 WBC (Bld) 0.6 % . [facility] C reactive protein [Mass/vol ume] in Serum or PlasmaOrdered By: [facility] Kanu Mehta on 03-25-2022 CRP [Mass/Vol] 1.0 mg/dL 0.0-1.0 [facility] C-Reactive Proteinon 023 C-Reactive Protein 1.0 mg/dL Normal 0.0-1.0 [facility] Comment on above: Order Comment: > or = to 3 loose/watery stools in the last 24 HRS? Y Is patient on promotility agents or tube feeding? N Performed By: #### C DT #### [facility] [address] [place] [address] Complete Blood Count Auto Di ffon 03-25-2022 Basophils (Bld) [#/Vol] 0.1 10*3/uL Normal 0.0-0.2 [facility] Comment on above: Order Comment: > or = to 3 loose/watery stools in the last 24 HRS? Y Is patient on promotility agents or tube feeding? N Performed By: #### C DT #### [facility] [address] Basophils/100 WBC (Bld) 0.6 % Normal . [facility] Comment on above: Order Comment: > or = to 3 loose/watery stools in the last 24 HRS? Y Is patient on promotility agents or tube feeding? N Performed By: #### C DT #### [facility] [address] [place] [address] [place] Eosinophils (Bld) [#/Vol] 0.2 10*3/uL Normal 0.0-0.45 [facility] Comment on above: Order Comment: > or = to 3 loose/watery stools in the last 24 HRS? Y Is patient on promotility agents or tube feeding? N Performed By: #### C DT #### [address] Eosinophils/100 WBC (Bld) 1.4 % Normal . [facility] Comment on above: Order Comment: > or = to 3 loose/watery stools in the last 24 HRS? Y Is patient on promotility agents or tube feeding? N Performed By: #### C DT #### [address] Erythrocyte distribution wid th (RBC) [Ratio] 16.8 % High 11.9-15.3 [facility] Comment on above: Order Comment: > or = to 3 loose/watery stools in the last 24 HRS? Y Is patient on promotility agents or tube feeding? N Performed By: #### C DT #### [address] Hematocrit (Bld) [Volume fraction] 46.6 % High 34.0-46.4 [facility] Comment on above: Order Comment: > or = to 3 loose/watery stools in the last 24 HRS? Y Is patient on promotility agents or tube feeding? N Performed By: #### C DT #### [address] Hemoglobin (Bld) [Mass/Vol] 15.1 g/dL Normal 11.8-15. 4 [facility] Comment on above: Order Comment: > or = to 3 loose/watery stools in the last 24 HRS? Y Is patient on promotility agents or tube feeding? N Performed By: #### C DT #### [address] Lymphocytes (Bld) [#/Vol] 4.2 10*3/uL Normal 1.00-4.8 [facility] Comment on above: Order Comment: > or = to 3 loose/watery stools in the last 24 HRS? Y Is patient on promotility agents or tube feeding? N Performed By: #### C DT #### [address] Lymphocytes/100 WBC (Bld) 29.8 % Normal . [facility] Comment on above: Order Comment: > or = to 3 loose/watery stools in the last 24 HRS? Y Is patient on promotility agents or tube feeding? N Performed By: #### C DT #### [address] MCH (RBC) [Entitic mass] 30.1 pg Normal 24.7-34.3 [facility] Comment on above: Order Comment: > or = to 3 loose/watery stools in the last 24 HRS? Y Is patient on promotility agents or tube feeding? N Performed By: #### C DT #### [address] MCV (RBC) [Entitic vol] 92.8 fL Normal 80-100 [facility] Comment on above: Order Comment: > or = to 3 loose/watery stools in the last 24 HRS? Y Is patient on promotility agents or tube feeding? N Performed By: #### C DT #### [address] Mean Corpuscular HGB Conc 32.5 g/dL Normal 32.0-35.0 [facility] Comment on above: Order Comment: > or = to 3 loose/watery stools in the last 24 HRS? Y Is patient on promotility agents or tube feeding? N Performed By: #### C DT #### [address] Monocytes (Bld) [#/Vol] 0.7 10*3/uL Normal 0.0-0.8 [facility] Comment on above: Order Comment: > or = to 3 loose/watery stools in the last 24 HRS? Y Is patient on promotility agents or tube feeding? N Performed By: #### C DT #### [address] Monocytes/100 WBC (Bld) 5.0 % Normal . [facility] Comment on above: Order Comment: > or = to 3 loose/watery stools in the last 24 HRS? Y Is patient on promotility agents or tube feeding? N Performed By: #### C DT #### [facility] [address] Neutrophils (Bld) [#/Vol] 9.0 10*3/uL High 1.8-7.7 [facility] Comment on above: Order Comment: > or = to 3 loose/watery stools in the last 24 HRS? Y Is patient on promotility agents or tube feeding? N Performed By: #### C DT #### [facility] [address] Neutrophils/100 WBC (Bld) 63.2 % Normal . [facility] Comment on above: Order Comment: > or = to 3 loose/watery stools in the last 24 HRS? Y Is patient on promotility agents or tube feeding? N Performed By: #### C DT #### [address] NRBC% 0.1 /100{WBC} Normal 0-0.5 [facility] Comment on above: Order Comment: > or = to 3 loose/watery stools in the last 24 HRS? Y Is patient on promotility agents or tube feeding? N Performed By: #### C DT #### [address] Platelet mean volume (Bld) [Entitic vol] 7.4 fL Normal 6.3-10.7 [facility] Comment on above: Order Comment: > or = to 3 loose/watery stools in the last 24 HRS? Y Is patient on promotility agents or tube feeding? N Performed By: #### C DT #### [facility] [address] [place] [address] [place] Platelets (Bld) [#/Vol] 336 10*3/uL Normal 150-450 [facility] Comment on above: Order Comment: > or = to 3 loose/watery stools in the last 24 HRS? Y Is patient on promotility agents or tube feeding? N Performed By: #### C DT #### [address] RBC (Bld) [#/Vol] 5.02 10*6/uL High 3.60-5.00 [facility] Comment on above: Order Comment: > or = to 3 loose/watery stools in the last 24 HRS? Y Is patient on promotility agents or tube feeding? N Performed By: #### C DT #### [address] WBC (Bld) [#/Vol] 14.2 10*3/uL High 3.8-11.6 [facility] Comment on above: Order Comment: > or = to 3 loose/watery stools in the last 24 HRS? Y Is patient on promotility agents or tube feeding? N Performed By: #### C DT #### [address] Comprehensive Metabolic Pane laurel 03-25-2022 Albumin [Mass/Vol] 3.4 g/dL Normal 3.2-5.5 [facility] Comment on above: Order Comment: > or = to 3 loose/watery stools in the last 24 HRS? Y Is patient on promotility agents or tube feeding? N Performed By: #### C DT #### [address] Albumin/Globulin [Mass ratio] 1.2 {ratio} Normal [facility] Comment on above: Order Comment: > or = to 3 loose/watery stools in the last 24 HRS? Y Is patient on promotility agents or tube feeding? N Performed By: #### C DT #### [address] ALP [Catalytic activity/Vol] 74 U/L Normal 32-92 [facility] Comment on above: Order Comment: > or = to 3 loose/watery stools in the last 24 HRS? Y Is patient on promotility agents or tube feeding? N Performed By: #### C DT #### [address] ALT [Catalytic activity/Vol] 20 U/L Normal 10-60 [facility] Comment on above: Order Comment: > or = to 3 loose/watery stools in the last 24 HRS? Y Is patient on promotility agents or tube feeding? N Performed By: #### C DT #### [facility] [address] Anion gap [Moles/Vol] 12.7 mmol/L Normal 6.0-15.0 [facility] Comment on above: Order Comment: > or = to 3 loose/watery stools in the last 24 HRS? Y Is patient on promotility agents or tube feeding? N Performed By: #### C DT #### [facility] [address] AST [Catalytic activity/Vol] 18 U/L Normal 10-42 [facility] Comment on above: Order Comment: > or = to 3 loose/watery stools in the last 24 HRS? Y Is patient on promotility agents or tube feeding? N Performed By: #### C DT #### [address] Bilirubin [Mass/Vol] 0.3 mg/dL Normal 0.3-1.2 [facility] Comment on above: Order Comment: > or = to 3 loose/watery stools in the last 24 HRS? Y Is patient on promotility agents or tube feeding? N Performed By: #### C DT #### [facility] [address] Calcium [Mass/Vol] 8.8 mg/dL Normal 8.2-10.2 [facility] Comment on above: Order Comment: > or = to 3 loose/watery stools in the last 24 HRS? Y Is patient on promotility agents or tube feeding? N Performed By: #### C DT #### [address] Chloride [Moles/Vol] 98 mmol/L Normal 95-114 [facility] Comment on above: Order Comment: > or = to 3 loose/watery stools in the last 24 HRS? Y Is patient on promotility agents or tube feeding? N Performed By: #### C DT #### [facility] [address] CO2 [Moles/Vol] 27.8 mmol/L Normal 22.0-30.0 [facility] Comment on above: Order Comment: > or = to 3 loose/watery stools in the last 24 HRS? Y Is patient on promotility agents or tube feeding? N Performed By: #### C DT #### [address] Creatinine [Mass/Vol] 1.14 mg/dL High 0.44-1.03 [facility] Comment on above: Order Comment: > or = to 3 loose/watery stools in the last 24 HRS? Y Is patient on promotility agents or tube feeding? N Performed By: #### C DT #### [address] Estimated GFR ( Tammy 60 [facility] Comment on above: Order Comment: > or = to 3 loose/watery stools in the last 24 HRS? Y Is patient on promotility agents or tube feeding? N Result Comment: GFR estimated reference range: According to KDOQI guidelines, <60 ml/min/1.73m2 is sufficient to diagnose a patient with chronic kidney disease. Performed By: #### C DT #### [address] Estimated GFR (Non- Am 49 [facility] Comment on above: Order Comment: > or = to 3 loose/watery stools in the last 24 HRS? Y Is patient on promotility agents or tube feeding? N Performed By: #### C DT #### [facility] [address] Globulin (S) [Mass/Vol] 2.9 g/dL Normal [facility] Comment on above: Order Comment: > or = to 3 loose/watery stools in the last 24 HRS? Y Is patient on promotility agents or tube feeding? N Performed By: #### C DT #### [address] Glucose [Mass/Vol] 70 mg/dL Normal 70-100 [facility] Comment on above: Order Comment: > or = to 3 loose/watery stools in the last 24 HRS? Y Is patient on promotility agents or tube feeding? N Result Comment: [facility] Glucose Reference Range is dependent on time and content of last meal. Glucose of more than 200 mg/dL in a nonstressed, ambulatory subject supports the diagnosis of Diabetes Mellitus. ADA recommended reference range Performed By: #### C DT #### [facility] [address] Potassium [Moles/Vol] 4.5 mmol/L Normal 3.5-5.1 [facility] Comment on above: Order Comment: > or = to 3 loose/watery stools in the last 24 HRS? Y Is patient on promotility agents or tube feeding? N Performed By: #### C DT #### [address] Protein [Mass/Vol] 6.3 g/dL Normal 6.1-7.9 [facility] Comment on above: Order Comment: > or = to 3 loose/watery stools in the last 24 HRS? Y Is patient on promotility agents or tube feeding? N Performed By: #### C DT #### [address] Sodium [Moles/Vol] 134 mmol/L Low 136-146 [facility] Comment on above: Order Comment: > or = to 3 loose/watery stools in the last 24 HRS? Y Is patient on promotility agents or tube feeding? N Performed By: #### C DT #### [facility] [address] [place] [address] [place] Urea nitrogen [Mass/Vol] 19 mg/dL Normal 9-23 [facility] Comment on above: Order Comment: > or = to 3 loose/watery stools in the last 24 HRS? Y Is patient on promotility agents or tube feeding? N Performed By: #### C DT #### [facility] [address] [place] [address] [place] Creatinine and Glomerular fi ltration rate.predicted panel (S/P/Bld)Ordered By: AUTUMN Mehta on 03-25-2022 Creatinine [Mass/Vol] 1.14 mg/dL 0.44-1.03 [facility] Eosinophils Auto (Bld) [#/Vo l]Ordered By: Sacha Mehta on 03-25-2022 Eosinophils (Bld) [#/Vol] 0.2 10*3/uL 0.0-0.45 [facility] Eosinophils/100 WBC Auto (Bl d)Ordered By: [facility] Kanu Mehta on 03-25-2022 Eosinophils/100 WBC (Bld) 1.4 % . [facility] Erythrocyte Sedimentation Ra isiah 03-25-2022 ESR (Bld) [Velocity] 30 mm/h High 0-29 [facility] Comment on above: Order Comment: > or = to 3 loose/watery stools in the last 24 HRS? Y Is patient on promotility agents or tube feeding? N Result Comment: PERF ORMED BY: [place] [address] PATHOLOGIST BLOOD BANK MANAGER RITA CONNER M.D. Performed By: #### C DT #### [address] Erythrocyte distribution wid th Auto (RBC) [Ratio]Ordered By: Sacha Mehta on 03-25-2022 Erythrocyte distribution wid th (RBC) [Ratio] 16.8 % 11.9-15.3 [facility] Erythrocyte sedimentation ra te by Photometric methodOrdered By: Sacha Mehta on 03-25-2022 ESR Photometric method (Bld) [Velocity] 30 mm/hr 0-29 [facility] Estimated glomerular filtrat ion rate (GFR) non- AmericanOrdered By: Sacha Mehta on 03-25-2022 GFR/1.73 sq M.predicted rosie g non-blacks MDRD (S/P/Bld) [Vol rate/Area] 49 mL/Min [facility] Globulin Calc (S) [Mass/Vol] Ordered By: Sacha Mehta on 03-25-2022 Globulin (S) [Mass/Vol] 2.9 g/dL [facility] Hematocrit Auto (Bld) [Volum e fraction]Ordered By: Sacha Mehta on 03-25-2022 Hematocrit (Bld) [Volume fraction] 46.6 % 3 4.0-46.4 [facility] Hemoglobin [Mass/volume] in BloodOrdered By: Sacha Mehta on 03-25-2022 Hemoglobin (Bld) [Mass/Vol] 15.1 g/dL 11.8-15. 4 [facility] Leukocytes [#/volume] correc marquez for nucleated erythrocytes in Blood by Automated counOrdered By: Sacha Mehta on 03-25-2022 WBC corrected for nucl RBC A uto (Bld) [#/Vol] 14.2 10*3/uL 3.8-11.6 [facility] Lymphocytes Auto (Bld) [#/Vo l]Ordered By: Sacha Mehta on 03-25-2022 Lymphocytes (Bld) [#/Vol] 4.2 10*3/uL 1.00-4.8 [facility] Lymphocytes/100 WBC Auto (Bl d)Ordered By: Sacha Mehta on 03-25-2022 Lymphocytes/100 WBC (Bld) 29.8 % . [facility] MCH Auto (RBC) [Entitic mass ]Ordered By: Sacha Mehta on 03-25-2022 MCH (RBC) [Entitic mass] 30.1 pg 24.7-34.3 [facility] MCHC Auto (RBC) [Mass/Vol]Or dered By: Sacha Mehta on 03-25-2022 MCHC (RBC) [Mass/Vol] 32.5 g/dL 32.0-35.0 [facility] MCV Auto (RBC) [Entitic vol] Ordered By: Sacha Mehta on 03-25-2022 MCV (RBC) [Entitic vol] 92.8 fL 80-100 [facility] Monocytes Auto (Bld) [#/Vol] Ordered By: Sacha Mehta on 03-25-2022 Monocytes (Bld) [#/Vol] 0.7 10*3/uL 0.0-0.8 [facility] Monocytes/100 WBC Auto (Bld) Ordered By: AUTUMN Mehta on 03-25-2022 Monocytes/100 WBC (Bld) 5.0 % . [facility] Neutrophils Auto (Bld) [#/Vo l]Ordered By: AUTUMN Mehta on 03-25-2022 Neutrophils (Bld) [#/Vol] 9.0 10*3/uL 1.8-7.7 [facility] Neutrophils/100 WBC Auto (Bl d)Ordered By: AUTUMN Mehta on 03-25-2022 Neutrophils/100 WBC (Bld) 63.2 % . [facility] No Panel InformationOrdered By: AUTUMN Mehta on 03-25-2022 Estimated GFR () 60 mL/Min [facility] Comment on above: GFR estimated refere nce range: According to KDOQI guidelines, <60 ml/min/1.73m2 is sufficient to diagnose a patient with chronic kidney disease. Pharmacy Creatinine Clearance (Chem N/A [facility] Nucleated erythrocytes [Pres ence] in Blood by Automated countOrdered By: AUTUMN Mehta on 03-25-2022 Nucleated RBC Auto Ql (Bld) 0.1 /100{WBC} 0-0.5 [facility] Platelet mean volume Auto (B ld) [Entitic vol]Ordered By: AUTUMN Mehta on 03-25-2022 Platelet mean volume (Bld) [Entitic vol] 7.4 fL 6.3-10.7 [facility] Platelets Auto (Bld) [#/Vol] Ordered By: AUTUMN Mehta on 03-25-2022 Platelets (Bld) [#/Vol] 336 10*3/uL 150-450 [facility] Prealbuminon 03-25-2022 Prealbumin [Mass/Vol] 23.4 mg/dL Normal 18.0-38.0 [facility] Comment on above: Order Comment: > or = to 3 loose/watery stools in the last 24 HRS? Y Is patient on promotility agents or tube feeding? N Result Comment: PERF ORMED BY: [place] [address] PATHOLOGIST BLOOD BANK MANAGER RITA CONNER M.D. Performed By: #### C DT #### [facility] [address] [place] [address] Protein [Mass/volume] in Ser um or PlasmaOrdered By: Sacha Mehta on 03-25-2022 Protein [Mass/Vol] 6.3 g/dL 6.1-7.9 [facility] RBC Auto (Bld) [#/Vol]Ordere d By: [facility] Kanu Mehta on 03-25-2022 RBC (Bld) [#/Vol] 5.02 10*6/uL 3.60-5.00 [facility] Serum or plasma alanine bruno otransferase measurement without P-5'-P (enzymatic activiOrdered By: Sacha Mehta on 03-25-2022 ALT No additional P-5'-P [Ca talytic activity/Vol] 20 U/L 10-60 [facility] Serum or plasma albumin/glob ulin mass ratioOrdered By: [facility] Kanu Mehta on 03-25-2022 Albumin/Globulin [Mass ratio] 1.2 {ratio} [facility] Serum or plasma alkaline mirella sphatase measurement (enzymatic activity/volume)Ordered By: [facility] Kanu Mehta on 03-25-2022 ALP [Catalytic activity/Vol] 74 U/L 32-92 [facility] Serum or plasma anion gap de terminationOrdered By: [facility] Kanu Mehta on 03-25-2022 Anion gap [Moles/Vol] 12.7 mmol/L 6.0-15.0 [facility] Serum or plasma aspartate am inotransferase measurement (enzymatic activity/volume)Ordered By: Sacha Mehta on 03-25-2022 AST [Catalytic activity/Vol] 18 U/L 10-42 [facility] Serum or plasma calcium arsh urement (mass/volume)Ordered By: [facility] Kanu Mehta on 03-25-2022 Calcium [Mass/Vol] 8.8 mg/dL 8.2-10.2 [facility] Serum or plasma chloride ten surement (moles/volume)Ordered By: Sacha Mehta on 03-25-2022 Chloride [Moles/Vol] 98 mmol/L 95-114 [facility] Serum or plasma glucose arsh urement (mass/volume)Ordered By: [facility] Kanu Mehta on 03-25-2022 Glucose [Mass/Vol] 70 mg/dL 70-100 [facility] Comment on above: ADA recommended refe rence rangeRandom Glucose Reference Range is dependent on time and content of last meal. Glucose of more than 200 mg/dL in a nonstressed, ambulatory subject supports the diagnosis of Diabetes Mellitus. Serum or plasma potassium me asurement (moles/volume)Ordered By: [facility] Kanu Mehta on 03-25-2022 Potassium [Moles/Vol] 4.5 mmol/L 3.5-5.1 [facility] Serum or plasma prealbumin m easurement (mass/volume)Ordered By: [facility] Kanu Mehta on 03-25-2022 Prealbumin [Mass/Vol] 23.4 mg/dL 18.0-38.0 [facility] Serum or plasma sodium measu rement (moles/volume)Ordered By: Sacha Mehta on 03-25-2022 Sodium [Moles/Vol] 134 mmol/L 136-146 [facility] Serum or plasma total biliru bin measurement (mass/volume)Ordered By: [facility] Kanu Mehta on 03-25-2022 Bilirubin [Mass/Vol] 0.3 mg/dL 0.3-1.2 [facility] Serum or plasma total carbon dioxide measurement (moles/volume)Ordered By: [facility] Kanu Mehta on 03-25-2022 CO2 [Moles/Vol] 27.8 mmol/L 22.0-30.0 [facility] Serum or plasma urea nitroge n measurement (mass/volume)Ordered By: Sacha Mehta on 03-25-2022 Urea nitrogen [Mass/Vol] 19 mg/dL 9-23 [facility] WBC Auto (Bld) [#/Vol]Ordere d By: AUTUMN Bobby Becky Melissa on 03-25-2022 WBC (Bld) [#/Vol] 14.2 10*3/uL 3.8-11.6 [facility] No Panel InformationOrdered By: Yung David on 02-02-2022 Total Triiodothyronine 1.04 ng/mL 0.87-1.78 [facility] 1.04 ng/mL 0.87-1.78 [facility] Serum or plasma thyroxine (T 4) measurement (mass/volume)Ordered By: Yung David on 02-02-2022 T4 [Mass/Vol] 11.30 ug/dL 5.39-11.82 [facility] TSH DL <= 0.005 mIU/L QnOrde red By: Yung David on 02-02-2022 TSH Qn 2.21 m[IU]/L 0.45-5.33 [facility] Screening Mammogram, Bilmabel vanessa 2022 Screening Mammogram, Bilateral CLINICAL HISTORY: Screening Mammogram COMPARISON: Priors from 2020, 2018 TECHNIQUE: 2D and 3D mammogram imaging of both breasts was performed. RESULT: DENSITY: There are scattered areas of fibroglandular density. There is no suspicious mass, asymmetry, architectural distortion, or calcification. No significant change since the prior mammograms. IMPRESSION: BIRADS 1 : NEGATIVE, NORMAL INTERVAL FOLLOW UP FOLLOW-UP: 12 months DENSITY: Scattered MAMMOGRAPHY IS VERY IMPORTANT TO YOUR HEALTH. THE CURRENT [place] [employer] OF [employer] AND [employer]HENSIVE [employer]WORK GUIDELINES RECOMMENDS ANNUAL MAMMOGRAPHY BEGINNING AT AGE 40 THIS FACILITY USES A REMINDER SYSTEM TO ENSURE ALL PATIENTS RECEIVE REMINDER NOTIFICATIONS AT THE APPROPRIATE TIME BASED ON THE RECOMMENDATIONS OF THIS EXAM. Board Certified Radiologist. Accredited by the ACR and FDA. Report reported and signed by Glenn Joyner on 2022 1416 Normal [facility] Specialist Glucose Glucometer (dC) [M ass/Vol]Ordered By: AUTUMN Mehta on 01-08-2022 Glucose [Mass/Vol] 154 mg/dL [facility] Comment on above: Random Glucose Refer ence Range is dependent on time and content of last meal. Glucose of more than 200 mg/dL in a nonstressed, ambulatory subject supports the diagnosis of Diabetes Mellitus. Aerobic cultureOrdered By: Venus Mehta on 01-06-2022 Bacteria identified Aer cx N om (Unsp spec) No Growth 2 Days [facility] Albumin [Mass/volume] in Ser um or PlasmaOrdered By: Clyde Luna on 01-06-2022 Albumin [Mass/Vol] 3.2 g/dL 3.2-5.5 [facility] Basophils Auto (Bld) [#/Vol] Ordered By: Clyde Luna on 01-06-2022 Basophils (Bld) [#/Vol] 0.1 10*3/uL 0.0-0.2 [facility] Basophils/100 WBC Auto (Bld) Ordered By: Clyde Luna on 01-06-2022 Basophils/100 WBC (Bld) 0.7 % . [facility] COVID-19 Positive/NegativeOr dered By: Clyde Luna on 01-06-2022 SARS-CoV-2 (COVID-19) N gene NADINE+probe Ql (Resp) Negative Negative [facility] Comment on above: Testing for SARS-CoV -2 by RT-PCRThis test was developed and its performance characteristics determined by [employer] and validated at the [facility]. This test has not been FDA cleared or approved. This test has been authorized by FDA under an Emergency Use Authorization (EUA). This test has been validated in accordance with the FDA's Guidance Document (Policy for Diagnostics Testing in Laboratories Certified to Perform High Complexity Testing under CLIA prior to Emergency Use Authorization for Coronavirus Disease-2019 during the Public Health Emergency) issued on June 15, 2019. This test is only authorized for the duration of time the declaration that circumstances exist justifying the authorization of the emergency use of in vitro diagnostic tests for detection of SARS-CoV-2 virus and/or diagnosis of COVID-19 infection under section 564(b)(1) of the Act, 21 U.S.C. 360bbb-3(b)(1), unless the authorization is terminated or revoked sooner. Creatinine and Glomerular fi ltration rate.predicted panel (S/P/Bld)Ordered By: Clyde Luna on 01-06-2022 Creatinine [Mass/Vol] 1.02 mg/dL 0.44-1.03 [facility] Eosinophils Auto (Bld) [#/Vo l]Ordered By: Clyde Luna on 01-06-2022 Eosinophils (Bld) [#/Vol] 0.4 10*3/uL 0.0-0.45 [facility] Eosinophils/100 WBC Auto (Bl d)Ordered By: Clyde Luna on 01-06-2022 Eosinophils/100 WBC (Bld) 3.6 % . [facility] Erythrocyte distribution wid th Auto (RBC) [Ratio]Ordered By: Clyde Luna on 01-06-2022 Erythrocyte distribution wid th (RBC) [Ratio] 16.7 % 11.9-15.3 [facility] Estimated glomerular filtrat ion rate (GFR) non- AmericanOrdered By: Clyde Luna on 01-06-2022 GFR/1.73 sq M.predicted rosie g non-blacks MDRD (S/P/Bld) [Vol rate/Area] 56 mL/Min [facility] Globulin Calc (S) [Mass/Vol] Ordered By: Clyde Luna on 01-06-2022 Globulin (S) [Mass/Vol] 3.6 g/dL [facility] Glucose Glucometer (BldC) [M ass/Vol]Ordered By: Sacha Mehta on 01-06-2022 Glucose [Mass/Vol] 138 mg/dL [facility] Hematocrit Auto (Bld) [Volum e fraction]Ordered By: Clyde Luna on 01-06-2022 Hematocrit (Bld) [Volume fraction] 44.8 % 3 4.0-46.4 [facility] Hemoglobin [Mass/volume] in BloodOrdered By: Clyde Luna on 01-06-2022 Hemoglobin (Bld) [Mass/Vol] 14.5 g/dL 11.8-15. 4 [facility] Laboratory - Hematology and Cell countsOrdered By: Clyde Luna on 01-06-2022 Nucleated RBC/100 WBC (Bld) [Ratio] 0.1 % 0-0.5 [facility] Leukocytes [#/volume] in Blo od by Automated countOrdered By: Clyde Jeremy on 01-06-2022 WBC (Bld) [#/Vol] 12.4 10*3/uL 4.5-11.0 [facility] Lymphocytes Auto (Bld) [#/Vo l]Ordered By: Clyde Jeremy on 01-06-2022 Lymphocytes (Bld) [#/Vol] 3.3 10*3/uL 1.00-4.8 [facility] Lymphocytes/100 WBC Auto (Bl d)Ordered By: Clyde Jeremy on 01-06-2022 Lymphocytes/100 WBC (Bld) 26.8 % . [facility] MCH Auto (RBC) [Entitic mass ]Ordered By: Clyde Jeremy on 01-06-2022 MCH (RBC) [Entitic mass] 29.5 pg 24.7-34.3 [facility] MCHC Auto (RBC) [Mass/Vol]Or dered By: Clyde Jeremy on 01-06-2022 MCHC (RBC) [Mass/Vol] 32.3 g/dL 32.0-35.0 [facility] MCV Auto (RBC) [Entitic vol] Ordered By: Clyde Jeremy on 01-06-2022 MCV (RBC) [Entitic vol] 91.3 fL 80-100 [facility] Monocytes Auto (Bld) [#/Vol] Ordered By: Clyde Jeremy on 01-06-2022 Monocytes (Bld) [#/Vol] 1.0 10*3/uL 0.0-0.8 [facility] Monocytes/100 WBC Auto (Bld) Ordered By: Clyde Jeremy on 01-06-2022 Monocytes/100 WBC (Bld) 8.0 % . [facility] Neutrophils Auto (Bld) [#/Vo l]Ordered By: Clyde Jeremy on 01-06-2022 Neutrophils (Bld) [#/Vol] 7.6 10*3/uL 1.8-7.7 [facility] Neutrophils/100 WBC Auto (Bl d)Ordered By: Clyde Jeremy on 01-06-2022 Neutrophils/100 WBC (Bld) 60.9 % . [facility] No Panel InformationOrdered By: AUTUMN Mehta on 01-06-2022 Bedside Glucose Comment Glu2: cleaned meter [facility] Glu2: cleaned meter [facility] No Panel InformationOrdered By: Clyde Luna on 01-06-2022 Estimated GFR () > 60 mL/Min [facility] Comment on above: GFR estimated refere nce range: According to KDOQI guidelines, <60 ml/min/1.73m2 is sufficient to diagnose a patient with chronic kidney disease. Pharmacy Creatinine Clearanc e (Chem 77.52 [facility] 12.4 10*3/uL 4.5-11.0 [facility] 0.1 % 0-0.5 [facility] > 60 mL/Min [facility] 77.52 [facility] Platelet mean volume Auto (B ld) [Entitic vol]Ordered By: Clyde Luna on 01-06-2022 Platelet mean volume (Bld) [Entitic vol] 7.5 fL 6.3-10.7 [facility] Platelets Auto (Bld) [#/Vol] Ordered By: Clyde Luna on 01-06-2022 Platelets (Bld) [#/Vol] 365 10*3/uL 150-450 [facility] Protein [Mass/volume] in Ser um or PlasmaOrdered By: ClydeFreeman on 01-06-2022 Protein [Mass/Vol] 6.8 g/dL 6.1-7.9 [facility] RBC Auto (Bld) [#/Vol]Ordere d By: Clyde Jeremy on 01-06-2022 RBC (Bld) [#/Vol] 4.91 10*6/uL 3.60-5.00 [facility] Serum or plasma alanine bruno otransferase measurement without P-5'-P (enzymatic activiOrdered By: Clyde Luna on 01-06-2022 ALT No additional P-5'-P [Ca talytic activity/Vol] 18 U/L [facility] Serum or plasma albumin/glob ulin mass ratioOrdered By: ClydeFreeman on 01-06-2022 Albumin/Globulin [Mass ratio] 0.9 {ratio} [facility] Serum or plasma alkaline mirella sphatase measurement (enzymatic activity/volume)Ordered By: Clyde Luna on 01-06-2022 ALP [Catalytic activity/Vol] 73 U/L 32-92 [facility] Serum or plasma anion gap de terminationOrdered By: Clyde Luna on 01-06-2022 Anion gap [Moles/Vol] 13.3 mmol/L 6.0-15.0 [facility] Serum or plasma aspartate am inotransferase measurement (enzymatic activity/volume)Ordered By: Clyde Luna 01-06-2022 AST [Catalytic activity/Vol] 22 U/L [facility] Serum or plasma calcium arsh urement (mass/volume)Ordered By: Clyde Luna 01-06-2022 Calcium [Mass/Vol] 8.8 mg/dL 8.2-10.2 [facility] Serum or plasma chloride ten surement (moles/volume)Ordered By: Clyde Luna 01-06-2022 Chloride [Moles/Vol] 100 mmol/L 95-114 [facility] Serum or plasma creatinine m easurement with calculation of estimated glomerular filtrOrdered By: Clyde Luna on 01-06-2022 Creatinine and Glomerular filtration rate.predicted panel (S/P/Bld) 1.02 mg/dL 0.44-1.03 [facility] Serum or plasma glucose arsh urement (mass/volume)Ordered By: Clyde Luna 01-06-2022 Glucose [Mass/Vol] 118 mg/dL 70-100 [facility] Comment on above: ADA recommended refe rence rangeRandom Glucose Reference Range is dependent on time and content of last meal. Glucose of more than 200 mg/dL in a nonstressed, ambulatory subject supports the diagnosis of Diabetes Mellitus. Serum or plasma potassium me asurement (moles/volume)Ordered By: Clyde Luna on 01-06-2022 Potassium [Moles/Vol] 4.0 mmol/L 3.5-5.1 [facility] Serum or plasma sodium measu rement (moles/volume)Ordered By: Clyde Jeremy on 01-06-2022 Sodium [Moles/Vol] 138 mmol/L 136-146 [facility] Serum or plasma total biliru bin measurement (mass/volume)Ordered By: Clyde Jeremy on 01-06-2022 Bilirubin [Mass/Vol] 0.4 mg/dL 0.3-1.2 [facility] Serum or plasma total carbon dioxide measurement (moles/volume)Ordered By: [facility] on 01-06-2022 CO2 [Moles/Vol] 28.7 mmol/L 22.0-30.0 [facility] Serum or plasma urea nitroge n measurement (mass/volume)Ordered By: Clyde [facility] on 01-06-2022 Urea nitrogen [Mass/Vol] 18 mg/dL 9-23 [facility] Basophils Auto (Bld) [#/Vol] Ordered By: Hailee Berg on 12-30-2021 Basophils (Bld) [#/Vol] 0.1 10*3/uL 0.0-0.2 [facility] Basophils/100 WBC Auto (Bld) Ordered By: Hailee Berg on 12-30-2021 Basophils/100 WBC (Bld) 1.0 % . [facility] Creatinine and Glomerular fi ltration rate.predicted panel (S/P/Bld)Ordered By: Hailee Berg on 12-30-2021 Creatinine [Mass/Vol] 0.91 mg/dL 0.44-1.03 [facility] Eosinophils Auto (Bld) [#/Vo l]Ordered By: Hailee Berg on 12-30-2021 Eosinophils (Bld) [#/Vol] 0.4 10*3/uL 0.0-0.45 [facility] Eosinophils/100 WBC Auto (Bl d)Ordered By: Hailee Berg on 12-30-2021 Eosinophils/100 WBC (Bld) 4.9 % . [facility] Erythrocyte distribution wid th Auto (RBC) [Ratio]Ordered By: Hailee Berg on 12-30-2021 Erythrocyte distribution wid th (RBC) [Ratio] 16.3 % 11.9-15.3 [facility] Estimated glomerular filtrat ion rate (GFR) non- AmericanOrdered By: Hailee Berg on 12-30-2021 GFR/1.73 sq M.predicted rosie g non-blacks MDRD (S/P/Bld) [Vol rate/Area] > 60 mL/Min [facility] Glucose Glucometer (BldC) [M ass/Vol]Ordered By: Fredy Patricia on 12-30-2021 Glucose [Mass/Vol] 114 mg/dL [facility] Comment on above: Random Glucose Refer ence Range is dependent on time and content of last meal. Glucose of more than 200 mg/dL in a nonstressed, ambulatory subject supports the diagnosis of Diabetes Mellitus. Hematocrit Auto (Bld) [Volum e fraction]Ordered By: Hailee Berg on 12-30-2021 Hematocrit (Bld) [Volume fraction] 45.1 % 3 4.0-46.4 [facility] Hemoglobin [Mass/volume] in BloodOrdered By: Hailee Berg on 12-30-2021 Hemoglobin (Bld) [Mass/Vol] 14.4 g/dL 11.8-15. 4 [facility] Laboratory - Hematology and Cell countsOrdered By: Hailee Berg on 12-30-2021 Nucleated RBC/100 WBC (Bld) [Ratio] 0.0 % 0-0.5 [facility] Leukocytes [#/volume] in Blo od by Automated countOrdered By: Hailee Berg on 12-30-2021 WBC (Bld) [#/Vol] 8.8 10*3/uL 4.5-11.0 [facility] Lymphocytes Auto (Bld) [#/Vo l]Ordered By: Hailee Berg on 12-30-2021 Lymphocytes (Bld) [#/Vol] 2.6 10*3/uL 1.00-4.8 [facility] Lymphocytes/100 WBC Auto (Bl d)Ordered By: Hailee Berg on 12-30-2021 Lymphocytes/100 WBC (Bld) 29.7 % . [facility] MCH Auto (RBC) [Entitic mass ]Ordered By: Hailee Berg on 12-30-2021 MCH (RBC) [Entitic mass] 29.1 pg 24.7-34.3 [facility] MCHC Auto (RBC) [Mass/Vol]Or dered By: Hailee Berg on 12-30-2021 MCHC (RBC) [Mass/Vol] 31.9 g/dL 32.0-35.0 [facility] MCV Auto (RBC) [Entitic vol] Ordered By: Hailee Berg on 12-30-2021 MCV (RBC) [Entitic vol] 91.3 fL 80-100 [facility] Monocytes Auto (Bld) [#/Vol] Ordered By: Hailee Berg on 12-30-2021 Monocytes (Bld) [#/Vol] 0.5 10*3/uL 0.0-0.8 [facility] Monocytes/100 WBC Auto (Bld) Ordered By: Hailee Berg on 12-30-2021 Monocytes/100 WBC (Bld) 6.1 % . [facility] Neutrophils Auto (Bld) [#/Vo l]Ordered By: Hailee Berg on 12-30-2021 Neutrophils (Bld) [#/Vol] 5.1 10*3/uL 1.8-7.7 [facility] Neutrophils/100 WBC Auto (Bl d)Ordered By: Hailee Berg on 12-30-2021 Neutrophils/100 WBC (Bld) 58.3 % . [facility] No Panel InformationOrdered By: Fredy Patricia on 12-30-2021 Bedside Glucose Comment Glu2: cleaned meter [facility] Glu2: cleaned meter [facility] No Panel InformationOrdered By: Hailee Berg on 12-30-2021 Estimated GFR () > 60 mL/Min [facility] Comment on above: GFR estimated refere nce range: According to KDOQI guidelines, <60 ml/min/1.73m2 is sufficient to diagnose a patient with chronic kidney disease. Pharmacy Creatinine Clearanc e (Chem 89.45 [facility] 8.8 10*3/uL 4.5-11.0 [facility] 0.0 % 0-0.5 [facility] > 60 mL/Min [facility] 89.45 [facility] Platelet mean volume Auto (B ld) [Entitic vol]Ordered By: Hailee Berg on 12-30-2021 Platelet mean volume (Bld) [Entitic vol] 7.0 fL 6.3-10.7 [facility] Platelets Auto (Bld) [#/Vol] Ordered By: Hailee Berg on 12-30-2021 Platelets (Bld) [#/Vol] 319 10*3/uL 150-450 [facility] RBC Auto (Bld) [#/Vol]Ordere d By: Hailee Berg on 12-30-2021 RBC (Bld) [#/Vol] 4.94 10*6/uL 3.60-5.00 [facility] Serum or plasma anion gap de terminationOrdered By: Hailee Berg on 12-30-2021 Anion gap [Moles/Vol] 11.4 mmol/L 6.0-15.0 [facility] Serum or plasma calcium arsh urement (mass/volume)Ordered By: Hailee Berg on 12-30-2021 Calcium [Mass/Vol] 8.7 mg/dL 8.2-10.2 [facility] Serum or plasma chloride ten surement (moles/volume)Ordered By: Hailee Berg on 12-30-2021 Chloride [Moles/Vol] 102 mmol/L 95-114 [facility] Serum or plasma creatinine m easurement with calculation of estimated glomerular filtrOrdered By: Hailee Berg on 12-30-2021 Creatinine and Glomerular filtration rate.predicted panel (S/P/Bld) 0.91 mg/dL 0.44-1.03 [facility] Serum or plasma glucose arsh urement (mass/volume)Ordered By: Hailee Berg on 12-30-2021 Glucose [Mass/Vol] 117 mg/dL 70-100 [facility] Comment on above: ADA recommended refe rence rangeRandom Glucose Reference Range is dependent on time and content of last meal. Glucose of more than 200 mg/dL in a nonstressed, ambulatory subject supports the diagnosis of Diabetes Mellitus. Serum or plasma potassium me asurement (moles/volume)Ordered By: Hailee Berg on 12-30-2021 Potassium [Moles/Vol] 3.9 mmol/L 3.5-5.1 [facility] Serum or plasma sodium measu rement (moles/volume)Ordered By: Hailee Berg on 12-30-2021 Sodium [Moles/Vol] 137 mmol/L 136-146 [facility] Serum or plasma total carbon dioxide measurement (moles/volume)Ordered By: Hailee Berg on 12-30-2021 CO2 [Moles/Vol] 27.5 mmol/L 22.0-30.0 [facility] Serum or plasma urea nitroge n measurement (mass/volume)Ordered By: Hailee Berg on 12-30-2021 Urea nitrogen [Mass/Vol] 13 mg/dL 9-23 [facility] Serum or plasma trough vanco mycin levelOrdered By: Hailee Berg on 12-29-2021 Vancomycin trough [Mass/Vol] 18.4 ug/mL 10.0-20 .0 [facility] Comment on above: Last dose: - Bacteria identified Aer cx N om (Unsp spec)Ordered By: Robert Larsen on 12-28-2021 Aerobic culture Pseudomonas aeruginosa [facility] Peak vancomycin levelOrdered By: Hailee Berg on 12-28-2021 Vancomycin peak [Mass/Vol] 48.3 ug/mL 20.0-40.0 [facility] Comment on above: Last dose: - Automated erythrocytes count in urine sediment (number/area)Ordered By: Robert Larsen on 12-27-2021 RBC Auto (Urine sed) [#/Area] 1-2 [HPF] 0-4 [facility] Automated leukocytes count i n urine sediment (number/area)Ordered By: Robert Larsen on 12-27-2021 WBC Auto (Urine sed) [#/Area] 0-1 [HPF] 0-4 [facility] Bilirubin Test strip Ql (U)O rdered By: Robert Larsen on 12-27-2021 Bilirubin Ql (U) Negative Negative [facility] Color Auto (U)Ordered By: [place] Larsen on 12-27-2021 Color (U) Dark yellow Yellow [facility] Ketones Auto test strip (U) [Mass/Vol]Ordered By: Robert Larsen on 12-27-2021 Ketones (U) [Mass/Vol] Negative Negative Fi [facility] Laboratory - UrinalysisOrder ed By: Robert Larsen on 12-27-2021 Hyaline casts LM Ql (Urine sed) 0-8 [LPF] 0-8 [facility] Nitrite Test strip Ql (U)Ord ered By: Robert Larsen on 12-27-2021 Nitrite Ql (U) Negative Negative [facility] No Panel InformationOrdered By: Robert Larsen on 12-27-2021 0-8 [LPF] 0-8 [facility] Protein Auto test strip (U) [Mass/Vol]Ordered By: Robert Larsen on 12-27-2021 Protein (U) [Mass/Vol] Trace mg/dL Negative [facility] Specific gravity Auto test s trip (U) [Rel density]Ordered By: Robert Larsen on 12-27-2021 Specific gravity (U) [Rel density] 1.037 1.001-1.030 [facility] Squamous epithelial cells de tection in urine sediment by light microscopyOrdered By: Robert Larsen on 12-27-2021 Epithelial cells.squamous LM Ql (Urine sed) 3-4 [HPF] 0-2 [facility] Urine bacteria detection by automated methodOrdered By: Robert Larsen on 12-27-2021 Bacteria Auto Ql (U) None seen None Seen [facility] Urine clarity by refractomet ry automatedOrdered By: Robert Larsen on 12-27-2021 Clarity Refractometry automated (U) Clear Clear [facility] Urine glucose measurement by automated test strip (mass/volume)Ordered By: Robert Larsen on 12-27-2021 Glucose Auto test strip (U) [Mass/Vol] Normal mg/dL Normal [facility] Urine hemoglobin detection b y automated test stripOrdered By: Robert Larsen on 12-27-2021 Hemoglobin Auto test strip Ql (U) Negative Ne gative [facility] Urine leukocyte esterase det ection by automated test stripOrdered By: Robert Larsen on 12-27-2021 Leukocyte esterase Auto test strip Ql (U) Negative Negative [facility] Urobilinogen Auto test strip (U) [Mass/Vol]Ordered By: Robetr Larsen on 12-27-2021 Urobilinogen (U) [Mass/Vol] Normal mg/dL Normal [facility] pH Auto test strip (U)Ordere d By: Robert Larsen on 12-27-2021 pH (U) 5.5 [pH] 5.0-9.0 [facility] Activated partial thrombopla stin time (aPTT) in platelet poor plasma by coagulation aOrdered By: Robert Larsen on 12-26-2021 aPTT Coag (PPP) [Time] 29.4 s 25.1-36.5 [facility] Albumin [Mass/volume] in Ser um or PlasmaOrdered By: Robert Larsen on 12-26-2021 Albumin [Mass/Vol] 3.4 g/dL 3.2-5.5 [facility] Bacteria identified Aer cx N om (Unsp spec)Ordered By: Robert Larsen on 12-26-2021 Superficial Wound Culture Pseudomonas aeruginosa [facility] Bacterial blood cultureOrder ed By: Robert Larsen on 12-26-2021 Bacteria identified Cx Nom (Bld) NO GROWTH 5 DAYS [facility] C reactive protein [Mass/vol ume] in Serum or PlasmaOrdered By: Robert Larsen on 12-26-2021 CRP [Mass/Vol] 0.7 mg/dL 0.0-1.0 [facility] COVID CepheidOrdered By: Fallon Larsen on 12-26-2021 SARS-CoV-2 (COVID-19) RNA NADINE+probe Ql (Unsp spec) [facility] SARS-CoV-2 (COVID-19) Ab IA Ql Negative Negat jerson [facility] Comment on above: This is a duplicate [employer] Xpert Xpress CoV-2/Flu/RSV Plus RNA by RT-PCR result to be used for statistical tracking purpose only. SARS-CoV-2 (COVID-19) RNA NADINE+probe Ql (Unsp spec) Negative Negative [facility] SARS-CoV-2 (COVID-19) RNA NADINE+probe Ql (Unsp spec) [facility] COVID-19 SOFIAOrdered By: [place] Larsen on 12-26-2021 SARS-CoV+SARS-CoV-2 (COVID-1 9) Ag IA.rapid Ql (Resp) Negative Negative [facility] Comment on above: This is a duplicate Antonina SARS Antigen (TAMRA) result to be used for statistical tracking purpose only. Creatine kinase [Enzymatic a ctivity/volume] in Serum or PlasmaOrdered By: Robert Larsen on 12-26-2021 CK [Catalytic activity/Vol] 63 U/L 22-269 [facility] Erythrocyte sedimentation ra te by Photometric methodOrdered By: Robert Larsen on 12-26-2021 ESR Photometric method (Bld) [Velocity] 36 mm/hr 0-29 [facility] Globulin Calc (S) [Mass/Vol] Ordered By: Robert Larsen on 12-26-2021 Globulin (S) [Mass/Vol] 3.5 g/dL F [facility] Laboratory - CoagulationOrde red By: Robert Larsen on 12-26-2021 PT Coag (PPP) [Time] 10.7 s 9.0-12.9 [facility] Laboratory - Microbiology an d Antimicrobial susceptibilityOrdered By: Robert Larsen on 12-26-2021 SARS-CoV-2 (COVID-19) RNA NA A+probe Ql (Unsp spec) N/A [facility] No Panel InformationOrdered By: Robert Larsen on 12-26-2021 N/A [facility] 10.7 s 9.0-12.9 [facility] Platelet poor plasma interna tional normalized ratio (INR) by coagulation assay (relatOrdered By: Robert Larsen on 12-26-2021 INR Coag (PPP) [Relative time] 1.0 {INR} [facility] Comment on above: INR Therapeutic Rang e A) Pre- and Peroperative OAT started two weeks before surgery. NOT HIP SURGERY: 1.5 - 2.5 HIP SURGERY: 2 - 3B) Primary and secondary prevention of venous THROMBOSIS: 2 - 3C) Active venous thrombosis, pulmonary embolismand prevention of recurrent venous thrombosis: 2 - 3D) Prevention of arterial thromboembolismincluding patients with mechanical heart valves: 3 - 4.5 Protein [Mass/volume] in Ser um or PlasmaOrdered By: Robert Larsen on 12-26-2021 Protein [Mass/Vol] 6.9 g/dL 6.1-7.9 [facility] Serum or plasma alanine bruno otransferase measurement without P-5'-P (enzymatic activiOrdered By: Robert Larsen on 12-26-2021 ALT No additional P-5'-P [Ca talytic activity/Vol] 16 U/L 10-60 [facility] Serum or plasma albumin/glob ulin mass ratioOrdered By: Robert Larsen on 12-26-2021 Albumin/Globulin [Mass ratio] 1.0 {ratio} [facility] Serum or plasma alkaline mirella sphatase measurement (enzymatic activity/volume)Ordered By: Robert Larsen on 12-26-2021 ALP [Catalytic activity/Vol] 69 U/L 32-92 [facility] Serum or plasma aspartate am inotransferase measurement (enzymatic activity/volume)Ordered By: Robert Larsen on 12-26-2021 AST [Catalytic activity/Vol] 20 U/L 10-42 [facility] Serum or plasma total biliru bin measurement (mass/volume)Ordered By: Robert Larsen on 12-26-2021 Bilirubin [Mass/Vol] 0.3 mg/dL 0.3-1.2 [facility] Urine lactic acid measuremen tOrdered By: Robert Larsen on 12-26-2021 Lactate (U) [Moles/Vol] 1.4 mmol/L 0.5-2.2 [facility] Basophils Auto (Bld) [#/Vol] Ordered By: Jarvis Thrasher on 12-18-2021 Basophils (Bld) [#/Vol] 0.1 10*3/uL 0.0-0.2 [facility] Basophils/100 WBC Auto (Bld) Ordered By: Jarvis Thrasher on 12-18-2021 Basophils/100 WBC (Bld) 0.7 % . [facility] Blood hemoglobin measurement (mass/volume)Ordered By: Jarvis Thrasher on 12-18-2021 Hemoglobin (Bld) [Mass/Vol] 14.8 g/dL 11.8-15. 4 [facility] Eosinophils Auto (Bld) [#/Vo l]Ordered By: Jarvis Thrasher on 12-18-2021 Eosinophils (Bld) [#/Vol] 0.5 10*3/uL 0.0-0.45 [facility] Eosinophils/100 WBC Auto (Bl d)Ordered By: Jarvis Thrasher on 12-18-2021 Eosinophils/100 WBC (Bld) 5.0 % . [facility] Erythrocyte distribution wid th Auto (RBC) [Ratio]Ordered By: Jarvis Thrasher on 12-18-2021 Erythrocyte distribution wid th (RBC) [Ratio] 15.8 % 11.9-15.3 [facility] Estimated glomerular filtrat ion rate (GFR) non- AmericanOrdered By: Elise Marie on 12-18-2021 GFR/1.73 sq M.predicted rosie g non-blacks MDRD (S/P/Bld) [Vol rate/Area] > 60 mL/Min [facility] Glucose Glucometer (BldC) [M ass/Vol]Ordered By: AUTUMN Mehta on 12-18-2021 Glucose [Mass/Vol] 107 mg/dL [facility] Hematocrit Auto (Bld) [Volum e fraction]Ordered By: Jarvis Thrasher on 12-18-2021 Hematocrit (Bld) [Volume fraction] 46.0 % 3 4.0-46.4 [facility] Lymphocytes Auto (Bld) [#/Vo l]Ordered By: Jarvis Thrasher on 12-18-2021 Lymphocytes (Bld) [#/Vol] 3.4 10*3/uL 1.00-4.8 [facility] Lymphocytes/100 WBC Auto (Bl d)Ordered By: Jarvis Thrasher on 12-18-2021 Lymphocytes/100 WBC (Bld) 32.2 % . [facility] MCH Auto (RBC) [Entitic mass ]Ordered By: Jarvis Thrasher on 12-18-2021 MCH (RBC) [Entitic mass] 29.5 pg 24.7-34.3 [facility] MCHC Auto (RBC) [Mass/Vol]Or dered By: Jarvis Thrasher on 12-18-2021 MCHC (RBC) [Mass/Vol] 32.1 g/dL 32.0-35.0 [facility] MCV Auto (RBC) [Entitic vol] Ordered By: Jarvis Thrasher on 12-18-2021 MCV (RBC) [Entitic vol] 91.9 fL 80-100 [facility] Monocytes Auto (Bld) [#/Vol] Ordered By: Jarvis Thrasher on 12-18-2021 Monocytes (Bld) [#/Vol] 0.7 10*3/uL 0.0-0.8 [facility] Monocytes/100 WBC Auto (Bld) Ordered By: Jarvis Thrasher on 12-18-2021 Monocytes/100 WBC (Bld) 6.7 % . [facility] Neutrophils Auto (Bld) [#/Vo l]Ordered By: Jarvis Thrasher on 12-18-2021 Neutrophils (Bld) [#/Vol] 5.9 10*3/uL 1.8-7.7 [facility] Neutrophils/100 WBC Auto (Bl d)Ordered By: Jarvis Thrasher on 12-18-2021 Neutrophils/100 WBC (Bld) 55.4 % . [facility] No Panel InformationOrdered By: AUTUMN Mehta on 12-18-2021 Glu2: cleaned meter [facility] No Panel InformationOrdered By: Jarvis Thrasher on 12-18-2021 10.6 10*3/uL 4.5-11.0 [facility] 0.1 % 0-0.5 [facility] No Panel InformationOrdered By: Elise Marie on 12-18-2021 > 60 mL/Min [facility] 85.99 [facility] Platelet mean volume Auto (B ld) [Entitic vol]Ordered By: Jarvis Thrasher on 12-18-2021 Platelet mean volume (Bld) [Entitic vol] 7.3 fL 6.3-10.7 [facility] Platelets Auto (Bld) [#/Vol] Ordered By: Jarvis Thrasher on 12-18-2021 Platelets (Bld) [#/Vol] 287 10*3/uL 150-450 [facility] RBC Auto (Bld) [#/Vol]Ordere d By: Jarvis Thrasher on 12-18-2021 RBC (Bld) [#/Vol] 5.01 10*6/uL 3.60-5.00 [facility] Serum or plasma anion gap de terminationOrdered By: Elise Marie on 12-18-2021 Anion gap [Moles/Vol] TNP [facility] Serum or plasma calcium arsh urement (mass/volume)Ordered By: Elise Marie on 12-18-2021 Calcium [Mass/Vol] 8.5 mg/dL 8.2-10.2 [facility] Serum or plasma chloride ten surement (moles/volume)Ordered By: Elise Marie on 12-18-2021 Chloride [Moles/Vol] 101 mmol/L 95-114 [facility] Serum or plasma creatinine m easurement with calculation of estimated glomerular filtrOrdered By: Elise Marie on 12-18-2021 Creatinine and Glomerular filtration rate.predicted panel (S/P/Bld) 0.92 mg/dL 0.44-1.03 [facility] Serum or plasma glucose arsh urement (mass/volume)Ordered By: Elise Marie on 12-18-2021 Glucose [Mass/Vol] 97 mg/dL 70-100 [facility] Serum or plasma potassium me asurement (moles/volume)Ordered By: Elise Marie on 12-18-2021 Potassium [Moles/Vol] 4.1 mmol/L 3.5-5.1 [facility] Serum or plasma sodium measu rement (moles/volume)Ordered By: Elise Marie on 12-18-2021 Sodium [Moles/Vol] 136 mmol/L 136-146 [facility] Serum or plasma total carbon dioxide measurement (moles/volume)Ordered By: Elise Marie on 12-18-2021 CO2 [Moles/Vol] 27.6 mmol/L 22.0-30.0 [facility] Serum or plasma urea nitroge n measurement (mass/volume)Ordered By: Elise Marie on 12-18-2021 Urea nitrogen [Mass/Vol] 14 mg/dL 9-23 [facility] WBC Auto (Bld) [#/Vol]Ordere d By: Jarvis Thrasher on 12-18-2021 WBC (Bld) [#/Vol] 10.6 10*3/uL 3.8-11.6 [facility] Albumin [Mass/volume] in Ser um or PlasmaOrdered By: [facility] Kanu Mehta on 12-16-2021 Albumin [Mass/Vol] 3.6 g/dL 3.2-5.5 [facility] Automated erythrocytes count in urine sediment (number/area)Ordered By: [facility] Kanu Mehta on 12-16-2021 RBC Auto (Urine sed) [#/Area] 0-1 [HPF] 0-4 [facility] Automated leukocytes count i n urine sediment (number/area)Ordered By: [facility] Kanu Mehta on 12-16-2021 WBC Auto (Urine sed) [#/Area] 0-1 [HPF] 0-4 [facility] Basophils Auto (Bld) [#/Vol] Ordered By: [facility] Kanu Mehta on 12-16-2021 Basophils (Bld) [#/Vol] 0.1 10*3/uL 0.0-0.2 [facility] Basophils/100 WBC Auto (Bld) Ordered By: [facility] Kanu Mehta on 12-16-2021 Basophils/100 WBC (Bld) 1.2 % . [facility] Bilirubin Test strip Ql (U)O rdered By: [facility] Kanu Mehta on 12-16-2021 Bilirubin Ql (U) Negative Negative [facility] Blood hemoglobin measurement (mass/volume)Ordered By: [facility] Kanu Mehta on 12-16-2021 Hemoglobin (Bld) [Mass/Vol] 15.1 g/dL 11.8-15. 4 [facility] C reactive protein [Mass/vol ume] in Serum or PlasmaOrdered By: [facility] Kanu Mehta on 12-16-2021 CRP [Mass/Vol] 0.9 mg/dL 0.0-1.0 [facility] COVID CepheidOrdered By: Sacha Mehta on 12-16-2021 SARS-CoV-2 (COVID-19) RNA NADINE+probe Ql (Unsp spec) Negative Negative [facility] SARS-CoV-2 (COVID-19) RNA NADINE+probe Ql (Unsp spec) [facility] Color Auto (U)Ordered By: ZECHARIAH Mehta on 12-16-2021 Color (U) Yellow Yellow [facility] Eosinophils Auto (Bld) [#/Vo l]Ordered By: Sacha Mehta on 12-16-2021 Eosinophils (Bld) [#/Vol] 0.6 10*3/uL 0.0-0.45 [facility] Eosinophils/100 WBC Auto (Bl d)Ordered By: Sacha Mehta on 12-16-2021 Eosinophils/100 WBC (Bld) 4.9 % . [facility] Erythrocyte distribution wid th Auto (RBC) [Ratio]Ordered By: Sacha Mehta on 12-16-2021 Erythrocyte distribution wid th (RBC) [Ratio] 16.2 % 11.9-15.3 [facility] Erythrocyte sedimentation ra te by Photometric methodOrdered By: Sacha Mehta on 12-16-2021 ESR Photometric method (Bld) [Velocity] 23 mm/hr 0-29 [facility] Estimated glomerular filtrat ion rate (GFR) non- AmericanOrdered By: Sacha Mehta on 12-16-2021 GFR/1.73 sq M.predicted rosie g non-blacks MDRD (S/P/Bld) [Vol rate/Area] 49 mL/Min [facility] Globulin Calc (S) [Mass/Vol] Ordered By: [facility] Kanu Mehta on 12-16-2021 Globulin (S) [Mass/Vol] 3.6 g/dL [facility] Glucose Glucometer (BldC) [M ass/Vol]Ordered By: [facility] Kanu Mehta on 12-16-2021 Glucose [Mass/Vol] 186 mg/dL [facility] HCG ( test) IA.rapi d Ql (U)Ordered By: EMY MILLER on 12-16-2021 HCG ( test) Ql (U) Negative [facility] Hematocrit Auto (Bld) [Volum e fraction]Ordered By: Sacha Mehta on 12-16-2021 Hematocrit (Bld) [Volume fraction] 46.3 % 3 4.0-46.4 [facility] Ketones Auto test strip (U) [Mass/Vol]Ordered By: AUTUMN Mehta on 12-16-2021 Ketones (U) [Mass/Vol] Negative Negative [facility] Lymphocytes Auto (Bld) [#/Vo l]Ordered By: AUTUMN Mehta on 12-16-2021 Lymphocytes (Bld) [#/Vol] 2.7 10*3/uL 1.00-4.8 [facility] Lymphocytes/100 WBC Auto (Bl d)Ordered By: AUTUMN Mehta on 12-16-2021 Lymphocytes/100 WBC (Bld) 22.1 % . [facility] MCH Auto (RBC) [Entitic mass ]Ordered By: AUTUMN Mehta on 12-16-2021 MCH (RBC) [Entitic mass] 29.7 pg 24.7-34.3 [facility] MCHC Auto (RBC) [Mass/Vol]Or dered By: AUTUMN Mehta on 12-16-2021 MCHC (RBC) [Mass/Vol] 32.6 g/dL 32.0-35.0 [facility] MCV Auto (RBC) [Entitic vol] Ordered By: AUTUMN Mehta on 12-16-2021 MCV (RBC) [Entitic vol] 91.2 fL 80-100 [facility] Monocytes Auto (Bld) [#/Vol] Ordered By: AUTUMN Mehta on 12-16-2021 Monocytes (Bld) [#/Vol] 0.7 10*3/uL 0.0-0.8 [facility] Monocytes/100 WBC Auto (Bld) Ordered By: AUTUMN Mehta on 12-16-2021 Monocytes/100 WBC (Bld) 5.4 % . [facility] Neutrophils Auto (Bld) [#/Vo l]Ordered By: AUTUMN Mehta on 12-16-2021 Neutrophils (Bld) [#/Vol] 8.1 10*3/uL 1.8-7.7 [facility] Neutrophils/100 WBC Auto (Bl d)Ordered By: AUTUMN Mehta on 12-16-2021 Neutrophils/100 WBC (Bld) 66.4 % . [facility] Nitrite Test strip Ql (U)Ord ered By: Sacha Mehta on 12-16-2021 Nitrite Ql (U) Negative Negative [facility] No Panel InformationOrdered By: Sacha Mehta on 12-16-2021 0-8 [LPF] 0-8 [facility] 12.2 10*3/uL 4.5-11.0 [facility] 0.1 % 0-0.5 [facility] 59 mL/Min [facility] 68.45 [facility] Platelet mean volume Auto (B ld) [Entitic vol]Ordered By: Sacha Mehta on 12-16-2021 Platelet mean volume (Bld) [Entitic vol] 7.2 fL 6.3-10.7 [facility] Platelets Auto (Bld) [#/Vol] Ordered By: Sacha Mehta on 12-16-2021 Platelets (Bld) [#/Vol] 354 10*3/uL 150-450 [facility] Protein Auto test strip (U) [Mass/Vol]Ordered By: Sacha Mehta on 12-16-2021 Protein (U) [Mass/Vol] Trace mg/dL Negative [facility] Protein [Mass/volume] in Ser um or PlasmaOrdered By: Sacha Mehta on 12-16-2021 Protein [Mass/Vol] 7.2 g/dL 6.1-7.9 [facility] RBC Auto (Bld) [#/Vol]Ordere d By: Sacha Mehta on 12-16-2021 RBC (Bld) [#/Vol] 5.08 10*6/uL 3.60-5.00 [facility] Serum or plasma alanine bruno otransferase measurement without P-5'-P (enzymatic activiOrdered By: Sacha Mehta on 12-16-2021 ALT No additional P-5'-P [Ca talytic activity/Vol] 16 U/L 10-60 [facility] Serum or plasma albumin/glob ulin mass ratioOrdered By: [facility] Kanu Mehta on 12-16-2021 Albumin/Globulin [Mass ratio] 1.0 {ratio} [facility] Serum or plasma alkaline mirella sphatase measurement (enzymatic activity/volume)Ordered By: Sacha Mehta on 12-16-2021 ALP [Catalytic activity/Vol] 72 U/L 32-92 [facility] Serum or plasma anion gap de terminationOrdered By: [facility] Kanu Mehta on 12-16-2021 Anion gap [Moles/Vol] 14.0 mmol/L 6.0-15.0 [facility] Serum or plasma aspartate am inotransferase measurement (enzymatic activity/volume)Ordered By: Sacha Mehta on 12-16-2021 AST [Catalytic activity/Vol] 22 U/L 1042 [facility] Serum or plasma calcium arsh urement (mass/volume)Ordered By: Sacha Mehta on 12-16-2021 Calcium [Mass/Vol] 9.2 mg/dL 8.2-10.2 [facility] Serum or plasma chloride ten surement (moles/volume)Ordered By: Sacha Mehta on 12-16-2021 Chloride [Moles/Vol] 98 mmol/L 95-114 [facility] Serum or plasma creatinine m easurement with calculation of estimated glomerular filtrOrdered By: Sacha Mehta on 12-16-2021 Creatinine and Glomerular filtration rate.predicted panel (S/P/Bld) 1.15 mg/dL 0.44-1.03 [facility] Serum or plasma glucose arsh urement (mass/volume)Ordered By: Sacha Mehta on 12-16-2021 Glucose [Mass/Vol] 122 mg/dL 70-100 [facility] Serum or plasma potassium me asurement (moles/volume)Ordered By: Sacha Mehta on 12-16-2021 Potassium [Moles/Vol] 4.6 mmol/L 3.5-5.1 [facility] Serum or plasma sodium measu rement (moles/volume)Ordered By: Sacha Mehta on 12-16-2021 Sodium [Moles/Vol] 137 mmol/L 136-146 [facility] Serum or plasma total biliru bin measurement (mass/volume)Ordered By: Sacha Mehta on 12-16-2021 Bilirubin [Mass/Vol] 0.4 mg/dL 0.3-1.2 [facility] Serum or plasma total carbon dioxide measurement (moles/volume)Ordered By: Sacha Mehta on 12-16-2021 CO2 [Moles/Vol] 29.6 mmol/L 22.0-30.0 [facility] Serum or plasma urea nitroge n measurement (mass/volume)Ordered By: Sacha Mehta on 12-16-2021 Urea nitrogen [Mass/Vol] 19 mg/dL 9-23 [facility] Specific gravity Auto test s trip (U) [Rel density]Ordered By: Sacha Mehta on 12-16-2021 Specific gravity (U) [Rel density] 1.033 1.001-1.030 [facility] Squamous epithelial cells de tection in urine sediment by light microscopyOrdered By: Sacha Mehta on 12-16-2021 Epithelial cells.squamous LM Ql (Urine sed) 3-4 [HPF] 0-2 [facility] Urine bacteria detection by automated methodOrdered By: AUTUMN Mehta on 12-16-2021 Bacteria Auto Ql (U) None seen None Seen [facility] Urine clarity by refractomet ry automatedOrdered By: Sacha Mehta on 12-16-2021 Clarity Refractometry automated (U) Clear Clear [facility] Urine glucose measurement by automated test strip (mass/volume)Ordered By: Sacha Mehta on 12-16-2021 Glucose Auto test strip (U) [Mass/Vol] Normal mg/dL Normal [facility] Urine hemoglobin detection b y automated test stripOrdered By: AUTUMN Mehta on 12-16-2021 Hemoglobin Auto test strip Ql (U) Negative Ne gative [facility] Urine leukocyte esterase det ection by automated test stripOrdered By: CWSacha Villalpandoz on 12-16-2021 Leukocyte esterase Auto test strip Ql (U) Negative Negative [facility] Urobilinogen Auto test strip (U) [Mass/Vol]Ordered By: [facility] Kanu Pena Melissa on 12-16-2021 Urobilinogen (U) [Mass/Vol] Normal mg/dL Normal [facility] WBC Auto (Bld) [#/Vol]Ordere d By: [facility] Kanu Becky Melissa on 12-16-2021 WBC (Bld) [#/Vol] 12.2 10*3/uL 3.8-11.6 [facility] pH Auto test strip (U)Ordere d By: [facility] Kanu Becky Melissa on 12-16-2021 pH (U) 6.0 [pH] 5.0-9.0 [facility] Bacterial blood cultureOrder ed By: Zaid Fan on 12-08-2021 Bacteria identified Cx Nom (Bld) NO GROWTH 5 DAYS [facility] Basophils Auto (Bld) [#/Vol] Ordered By: Rodney Marti on 12-06-2021 Basophils (Bld) [#/Vol] 0.1 10*3/uL 0.0-0.2 [facility] Basophils/100 WBC Auto (Bld) Ordered By: Rodney Scottomar on 12-06-2021 Basophils/100 WBC (Bld) 0.6 % . [facility] Blood hemoglobin measurement (mass/volume)Ordered By: Rodney Marti on 12-06-2021 Hemoglobin (Bld) [Mass/Vol] 13.4 g/dL 11.8-15. 4 [facility] Blood leukocytes automated c ount (number/volume)Ordered By: Rodney Sethr on 12-06-2021 WBC (Bld) [#/Vol] 10.9 10*3/uL 3.8-11.6 [facility] Creatinine and Glomerular fi ltration rate.predicted panel (S/P/Bld)Ordered By: Rodney Sethr on 12-06-2021 Creatinine [Mass/Vol] 1.00 mg/dL 0.44-1.03 [facility] Eosinophils Auto (Bld) [#/Vo l]Ordered By: Obhaydee Sethr on 12-06-2021 Eosinophils (Bld) [#/Vol] 0.3 10*3/uL 0.0-0.45 [facility] Eosinophils/100 WBC Auto (Bl d)Ordered By: Obhaydee Scottomar on 12-06-2021 Eosinophils/100 WBC (Bld) 3.1 % . [facility] Erythrocyte distribution wid th Auto (RBC) [Ratio]Ordered By: Obhaydee Sethr on 12-06-2021 Erythrocyte distribution wid th (RBC) [Ratio] 16.3 % 11.9-15.3 [facility] Estimated glomerular filtrat ion rate (GFR) non- AmericanOrdered By: Rodney Marti on 12-06-2021 GFR/1.73 sq M.predicted rosie g non-blacks MDRD (S/P/Bld) [Vol rate/Area] 58 mL/Min [facility] Hematocrit Auto (Bld) [Volum e fraction]Ordered By: Rodney Marti on 12-06-2021 Hematocrit (Bld) [Volume fraction] 41.4 % 3 4.0-46.4 [facility] Laboratory - Hematology and Cell countsOrdered By: Obhaydee Sethr on 12-06-2021 Nucleated RBC/100 WBC (Bld) [Ratio] 0.0 % 0-0.5 [facility] Lymphocytes Auto (Bld) [#/Vo l]Ordered By: Obhaydee Scottomar on 12-06-2021 Lymphocytes (Bld) [#/Vol] 3.1 10*3/uL 1.00-4.8 [facility] Lymphocytes/100 WBC Auto (Bl d)Ordered By: Obhaydee Scottomar on 12-06-2021 Lymphocytes/100 WBC (Bld) 28.9 % . [facility] MCH Auto (RBC) [Entitic mass ]Ordered By: Rodney Scottomar on 12-06-2021 MCH (RBC) [Entitic mass] 29.8 pg 24.7-34.3 [facility] MCHC Auto (RBC) [Mass/Vol]Or dered By: Obdenisedah Daromar on 12-06-2021 MCHC (RBC) [Mass/Vol] 32.3 g/dL 32.0-35.0 [facility] MCV Auto (RBC) [Entitic vol] Ordered By: Obaydah Daromar on 12-06-2021 MCV (RBC) [Entitic vol] 92.3 fL 80-100 [facility] Monocytes Auto (Bld) [#/Vol] Ordered By: Obaydah Daromar on 12-06-2021 Monocytes (Bld) [#/Vol] 0.8 10*3/uL 0.0-0.8 [facility] Monocytes/100 WBC Auto (Bld) Ordered By: Obaydah Daromar on 12-06-2021 Monocytes/100 WBC (Bld) 7.7 % . [facility] Neutrophils Auto (Bld) [#/Vo l]Ordered By: Obaydah Daromar on 12-06-2021 Neutrophils (Bld) [#/Vol] 6.5 10*3/uL 1.8-7.7 [facility] Neutrophils/100 WBC Auto (Bl d)Ordered By: Obdenisedah Daromar on 12-06-2021 Neutrophils/100 WBC (Bld) 59.7 % . [facility] No Panel InformationOrdered By: Obdenisedajese Scottomar on 12-06-2021 Estimated GFR () > 60 mL/Min [facility] Comment on above: GFR estimated refere nce range: According to KDOQI guidelines, <60 ml/min/1.73m2 is sufficient to diagnose a patient with chronic kidney disease. Pharmacy Creatinine Clearanc e (Chem 80.16 [facility] 10.9 10*3/uL 4.5-11.0 [facility] 0.0 % 0-0.5 [facility] > 60 mL/Min [facility] 80.16 [facility] Platelet mean volume Auto (B ld) [Entitic vol]Ordered By: Obdenisedah Daromar on 12-06-2021 Platelet mean volume (Bld) [Entitic vol] 7.0 fL 6.3-10.7 [facility] Platelets Auto (Bld) [#/Vol] Ordered By: Rodney Marti on 12-06-2021 Platelets (Bld) [#/Vol] 347 10*3/uL 150-450 [facility] RBC Auto (Bld) [#/Vol]Ordere d By: Rodney Marti on 12-06-2021 RBC (Bld) [#/Vol] 4.48 10*6/uL 3.60-5.00 [facility] Serum or plasma anion gap de terminationOrdered By: Rodney Marti on 12-06-2021 Anion gap [Moles/Vol] 9.7 mmol/L 6.0-15.0 [facility] Serum or plasma calcium arsh urement (mass/volume)Ordered By: Rodney Marti on 12-06-2021 Calcium [Mass/Vol] 9.0 mg/dL 8.2-10.2 [facility] Serum or plasma chloride tne surement (moles/volume)Ordered By: Rodney Marti on 12-06-2021 Chloride [Moles/Vol] 100 mmol/L 95-114 [facility] Serum or plasma creatinine m easurement with calculation of estimated glomerular filtrOrdered By: Rodney Marti on 12-06-2021 Creatinine and Glomerular filtration rate.predicted panel (S/P/Bld) 1.00 mg/dL 0.44-1.03 [facility] Serum or plasma glucose arsh urement (mass/volume)Ordered By: Rodney Marti on 12-06-2021 Glucose [Mass/Vol] 100 mg/dL 70-100 [facility] Comment on above: ADA recommended refe rence range Random Glucose Reference Range is dependent on time and content of last meal. Glucose of more than 200 mg/dL in a nonstressed, ambulatory subject supports the diagnosis of Diabetes Mellitus. ADA recommended refe rence rangeRandom Glucose Reference Range is dependent on time and content of last meal. Glucose of more than 200 mg/dL in a nonstressed, ambulatory subject supports the diagnosis of Diabetes Mellitus. Serum or plasma potassium me asurement (moles/volume)Ordered By: Rodney Marti on 12-06-2021 Potassium [Moles/Vol] 4.0 mmol/L 3.5-5.1 [facility] Serum or plasma sodium measu rement (moles/volume)Ordered By: Rodney Marti on 12-06-2021 Sodium [Moles/Vol] 137 mmol/L 136-146 [facility] Serum or plasma total carbon dioxide measurement (moles/volume)Ordered By: Rodney Marti on 12-06-2021 CO2 [Moles/Vol] 31.3 mmol/L 22.0-30.0 [facility] Serum or plasma urea nitroge n measurement (mass/volume)Ordered By: Rodney Marti on 12-06-2021 Urea nitrogen [Mass/Vol] 10 mg/dL - [facility] Peak vancomycin levelOrdered By: Rodney Marti on 12-05-2021 Vancomycin peak [Mass/Vol] 23.6 ug/mL 20.0-40.0 [facility] Comment on above: Last dose: - Serum or plasma trough vanco mycin levelOrdered By: Rodney Marti on 12-05-2021 Vancomycin trough [Mass/Vol] 17.4 ug/mL 10.0-20 .0 [facility] Comment on above: Last dose: - Albumin [Mass/volume] in Ser um or PlasmaOrdered By: Rodney Marti on 12-04-2021 Albumin [Mass/Vol] 3.4 g/dL 3.2-5.5 [facility] C reactive protein [Mass/vol ume] in Serum or PlasmaOrdered By: Rodney Marti on 12-04-2021 CRP [Mass/Vol] 0.7 mg/dL 0.0-1.0 [facility] Globulin Calc (S) [Mass/Vol] Ordered By: Rodney Marti on 12-04-2021 Globulin (S) [Mass/Vol] 3.5 g/dL [facility] Laboratory - Chemistry and C hemistry - challengeOrdered By: Rodney Marti on 12-04-2021 Magnesium [Mass/Vol] 1.8 mg/dL 1.6-2.6 [facility] No Panel InformationOrdered By: Rodney Marti on 12-04-2021 1.8 mg/dL 1.6-2.6 [facility] Phosphate [Mass/volume] in S jamshid or PlasmaOrdered By: Rodney Marti on 12-04-2021 Phosphate [Mass/Vol] 4.7 mg/dL 2.5-4.6 [facility] Protein [Mass/volume] in Ser um or PlasmaOrdered By: Rodney Marti on 12-04-2021 Protein [Mass/Vol] 6.9 g/dL 6.1-7.9 [facility] Serum or plasma alanine bruno otransferase measurement without P-5'-P (enzymatic activiOrdered By: Rodney Marti on 12-04-2021 ALT No additional P-5'-P [Ca talytic activity/Vol] 12 U/L 10-60 [facility] Serum or plasma albumin/glob ulin mass ratioOrdered By: Rodney Marti on 12-04-2021 Albumin/Globulin [Mass ratio] 1.0 {ratio} [facility] Serum or plasma alkaline mirella sphatase measurement (enzymatic activity/volume)Ordered By: Rodney Marti on 12-04-2021 ALP [Catalytic activity/Vol] 78 U/L 32-92 [facility] Serum or plasma aspartate am inotransferase measurement (enzymatic activity/volume)Ordered By: Rodney Marti on 12-04-2021 AST [Catalytic activity/Vol] 18 U/L 10-42 [facility] Serum or plasma total biliru bin measurement (mass/volume)Ordered By: Rodney Marti on 12-04-2021 Bilirubin [Mass/Vol] 0.5 mg/dL 0.3-1.2 [facility] COVID-19 Positive/NegativeOr dered By: Zaid Fan on 12-03-2021 SARS-CoV-2 (COVID-19) N gene NADINE+probe Ql (Resp) Negative Negative [facility] Comment on above: Testing for SARS-CoV -2 by RT-PCR This test was developed and its performance characteristics determined by [employer] [facility] ([place]) and validated at the [facility]. This test has not been FDA cleared or approved. This test has been authorized by FDA under an Emergency Use Authorization (EUA). This test has been validated in accordance with the FDA's Guidance Document (Policy for Diagnostics Testing in Laboratories Certified to Perform High Complexity Testing under CLIA prior to Emergency Use Authorization for Coronavirus Disease-2019 during the Public Health Emergency) issued on June 15, 2019. This test is only authorized for the duration of time the declaration that circumstances exist justifying the authorization of the emergency use of in vitro diagnostic tests for detection of SARS-CoV-2 virus and/or diagnosis of COVID-19 infection under section 564(b)(1) of the Act, 21 U.S.C. 360bbb-3(b)(1), unless the authorization is terminated or revoked sooner. Testing for SARS-CoV -2 by RT-PCRThis test was developed and its performance characteristics determined by [employer] ([place]) and validated at the [facility]. This test has not been FDA cleared or approved. This test has been authorized by FDA under an Emergency Use Authorization (EUA). This test has been validated in accordance with the FDA's Guidance Document (Policy for Diagnostics Testing in Laboratories Certified to Perform High Complexity Testing under CLIA prior to Emergency Use Authorization for Coronavirus Disease-2019 during the Public Health Emergency) issued on June 15, 2019. This test is only authorized for the duration of time the declaration that circumstances exist justifying the authorization of the emergency use of in vitro diagnostic tests for detection of SARS-CoV-2 virus and/or diagnosis of COVID-19 infection under section 564(b)(1) of the Act, 21 U.S.C. 360bbb-3(b)(1), unless the authorization is terminated or revoked sooner. COVID-19 SOFIAOrdered By: Carmen Fan on 12-03-2021 SARS-CoV+SARS-CoV-2 (COVID-1 9) Ag IA.rapid Ql (Resp) Negative Negative [facility] Comment on above: This is a duplicate Antonina SARS Antigen (TAMRA) result to be used for statistical tracking purpose only. Erythrocyte sedimentation ra te by Photometric methodOrdered By: Zaid Fan on 12-03-2021 ESR Photometric method (Bld) [Velocity] 54 mm/hr 0-29 [facility] No Panel InformationOrdered By: Zaid Fan on 12-03-2021 SARS Antigen (LFIA) [facility] Urine lactic acid measuremen tOrdered By: Zaid Fan on 12-03-2021 Lactate (U) [Moles/Vol] 0.9 mmol/L 0.5-2.2 [facility] Bacteria identified Anaer cx Nom (Unsp spec)Ordered By: Zaid Mon on 11-09-2021 Anaerobic microbial culture No Anaerobes Isolated 3 Days [facility] Bacterial blood cultureOrder ed By: Raj Craven on 11-09-2021 Bacteria identified Cx Nom (Bld) NO GROWTH 5 DAYS [facility] Glucose Glucometer (BldC) [M ass/Vol]Ordered By: Dean Rodriguez on 11-09-2021 Glucose [Mass/Vol] 368 mg/dL [facility] Comment on above: Random Glucose Refer ence Range is dependent on time and content of last meal. Glucose of more than 200 mg/dL in a nonstressed, ambulatory subject supports the diagnosis of Diabetes Mellitus. No Panel InformationOrdered By: Dean Rodriguez on 11-09-2021 Bedside Glucose Comment Glu2: cleaned meter [facility] Glu2: cleaned meter [facility] Basophils Auto (Bld) [#/Vol] Ordered By: Dean Rodriguez on 11-08-2021 Basophils (Bld) [#/Vol] 0.1 10*3/uL 0.0-0.2 [facility] Basophils/100 WBC Auto (Bld) Ordered By: Dean Rodriguez on 11-08-2021 Basophils/100 WBC (Bld) 1.1 % . F [facility] Blood hemoglobin measurement (mass/volume)Ordered By: Dean Rodriguez on 11-08-2021 Hemoglobin (Bld) [Mass/Vol] 11.6 g/dL 11.8-15. 4 [facility] Blood leukocytes automated c ount (number/volume)Ordered By: Dean Rodriguez on 11-08-2021 WBC (Bld) [#/Vol] 8.6 10*3/uL 3.8-11.6 [facility] Clostridioides difficile tox in B tcdB gene [Presence] in Stool by NADINE with probe deteOrdered By: Dean Rodriguez on 11-08-2021 C. difficile toxin B tcdB ge ne NADINE+probe Ql (Stl) Negative Negative [facility] Comment on above: Testing performed by RT-PCR Creatinine and Glomerular fi ltration rate.predicted panel (S/P/Bld)Ordered By: Dean Rodriguez on 11-08-2021 Creatinine [Mass/Vol] 1.06 mg/dL 0.44-1.03 [facility] Eosinophils Auto (Bld) [#/Vo l]Ordered By: Dean Rodriguez on 11-08-2021 Eosinophils (Bld) [#/Vol] 0.7 10*3/uL 0.0-0.45 [facility] Eosinophils/100 WBC Auto (Bl d)Ordered By: Dean Rodriguez on 11-08-2021 Eosinophils/100 WBC (Bld) 8.5 % . [facility] Erythrocyte distribution wid th Auto (RBC) [Ratio]Ordered By: Dean Rodriguez on 11-08-2021 Erythrocyte distribution wid th (RBC) [Ratio] 17.3 % 11.9-15.3 [facility] Estimated glomerular filtrat ion rate (GFR) non- AmericanOrdered By: Dean Rodriguez on 11-08-2021 GFR/1.73 sq M.predicted rosie g non-blacks MDRD (S/P/Bld) [Vol rate/Area] 54 mL/Min [facility] Hematocrit Auto (Bld) [Volum e fraction]Ordered By: Dean Rodriguez on 11-08-2021 Hematocrit (Bld) [Volume fraction] 36.5 % 3 4.0-46.4 [facility] Laboratory - Hematology and Cell countsOrdered By: Dean Rodriguez on 11-08-2021 Nucleated RBC/100 WBC (Bld) [Ratio] 0.1 % 0-0.5 [facility] Lymphocytes Auto (Bld) [#/Vo l]Ordered By: Dean Rodriguez on 11-08-2021 Lymphocytes (Bld) [#/Vol] 2.2 10*3/uL 1.00-4.8 [facility] Lymphocytes/100 WBC Auto (Bl d)Ordered By: Dean Rodriguez on 11-08-2021 Lymphocytes/100 WBC (Bld) 25.5 % . [facility] MCH Auto (RBC) [Entitic mass ]Ordered By: Dean Rodriguez on 11-08-2021 MCH (RBC) [Entitic mass] 29.8 pg 24.7-34.3 [facility] MCHC Auto (RBC) [Mass/Vol]Or dered By: Dean Rodriguez on 11-08-2021 MCHC (RBC) [Mass/Vol] 31.7 g/dL 32.0-35.0 [facility] MCV Auto (RBC) [Entitic vol] Ordered By: Dean Rodriguez on 11-08-2021 MCV (RBC) [Entitic vol] 93.9 fL 80-100 [facility] Monocytes Auto (Bld) [#/Vol] Ordered By: Dean Rodriguez on 11-08-2021 Monocytes (Bld) [#/Vol] 0.7 10*3/uL 0.0-0.8 [facility] Monocytes/100 WBC Auto (Bld) Ordered By: Dean Rodriguez on 11-08-2021 Monocytes/100 WBC (Bld) 8.1 % . [facility] Neutrophils Auto (Bld) [#/Vo l]Ordered By: Dean Rodriguez on 11-08-2021 Neutrophils (Bld) [#/Vol] 4.9 10*3/uL 1.8-7.7 [facility] Neutrophils/100 WBC Auto (Bl d)Ordered By: Dean Rodriguez on 11-08-2021 Neutrophils/100 WBC (Bld) 56.8 % . [facility] No Panel InformationOrdered By: Dean Rodriguez on 11-08-2021 Estimated GFR () > 60 mL/Min [facility] Comment on above: GFR estimated refere nce range: According to KDOQI guidelines, <60 ml/min/1.73m2 is sufficient to diagnose a patient with chronic kidney disease. Pharmacy Creatinine Clearanc e (Chem 78.95 [facility] 8.6 10*3/uL 4.5-11.0 [facility] 0.1 % 0-0.5 [facility] > 60 mL/Min [facility] 78.95 [facility] Peak vancomycin levelOrdered By: Dean Rodriguez on 11-08-2021 Vancomycin peak [Mass/Vol] 26.2 ug/mL 20.0-40.0 [facility] Comment on above: Last dose: - Platelet mean volume Auto (B ld) [Entitic vol]Ordered By: Dean Rodriguez on 11-08-2021 Platelet mean volume (Bld) [Entitic vol] 7.5 fL 6.3-10.7 [facility] Platelets Auto (Bld) [#/Vol] Ordered By: Dean Rodriguez on 11-08-2021 Platelets (Bld) [#/Vol] 253 10*3/uL 150-450 [facility] RBC Auto (Bld) [#/Vol]Ordere d By: Dean Rodriguez on 11-08-2021 RBC (Bld) [#/Vol] 3.89 10*6/uL 3.60-5.00 [facility] Serum or plasma calcium arsh urement (mass/volume)Ordered By: Dean Rodriguez on 11-08-2021 Calcium [Mass/Vol] 8.3 mg/dL 8.2-10.2 [facility] Serum or plasma chloride ten surement (moles/volume)Ordered By: Dean Rodriguez on 11-08-2021 Chloride [Moles/Vol] 98 mmol/L 95-114 [facility] Serum or plasma creatinine m easurement with calculation of estimated glomerular filtrOrdered By: Dean Rodriguez on 11-08-2021 Creatinine and Glomerular filtration rate.predicted panel (S/P/Bld) 1.06 mg/dL 0.44-1.03 [facility] Serum or plasma glucose arsh urement (mass/volume)Ordered By: Dean Rodriguez on 11-08-2021 Glucose [Mass/Vol] 222 mg/dL 70-100 [facility] Comment on above: ADA recommended refe rence range Random Glucose Reference Range is dependent on time and content of last meal. Glucose of more than 200 mg/dL in a nonstressed, ambulatory subject supports the diagnosis of Diabetes Mellitus. ADA recommended refe rence rangeRandom Glucose Reference Range is dependent on time and content of last meal. Glucose of more than 200 mg/dL in a nonstressed, ambulatory subject supports the diagnosis of Diabetes Mellitus. Serum or plasma potassium me asurement (moles/volume)Ordered By: Dean Rodriguez on 11-08-2021 Potassium [Moles/Vol] 3.7 mmol/L 3.5-5.1 [facility] Serum or plasma sodium measu rement (moles/volume)Ordered By: Dean Rodriguez on 11-08-2021 Sodium [Moles/Vol] 136 mmol/L 136-146 [facility] Serum or plasma total carbon dioxide measurement (moles/volume)Ordered By: Dean Rodriguez on 11-08-2021 CO2 [Moles/Vol] 31.2 mmol/L 22.0-30.0 [facility] Serum or plasma trough vanco mycin levelOrdered By: Dean Rodriguez on 11-08-2021 Vancomycin trough [Mass/Vol] 15.3 ug/mL 10.0-20 .0 [facility] Comment on above: Last dose: - Serum or plasma urea nitroge n measurement (mass/volume)Ordered By: Dean Rodriguez on 11-08-2021 Urea nitrogen [Mass/Vol] 6 mg/dL 9-23 [facility] ABO and Rh group post transf usion reaction Nom (Bld)Ordered By: Zaid Mon on 11-07-2021 Microscopic observation Gram stain Nom (Unsp spec) [facility] Bacterial blood cultureOrder ed By: Concetta Murphy on 11-07-2021 Bacteria identified Cx Nom (Bld) NO GROWTH 5 DAYS [facility] Arterial blood standard base excess determination by calculationOrdered By: Dean Rodriguez on 11-06-2021 Base excess standard Calc (B ldA) [Moles/Vol] 7 mmol/L -2-3 [facility] Blood carbon dioxide, total measurement by calculation (moles/volume)Ordered By: Dean Rodriguez on 11-06-2021 CO2 Calc (Bld) [Moles/Vol] 35 mmol/L 23-[address] [facility] [address] biopsyOrdered By: Dean Rodriguez on 11-06-2021 CT biopsy 41.0 % 38.0-51.0 [facility] Hematocrit (Bld) [Volume fraction] 41.0 % 3 8.0-51.0 [facility] Glucose Glucometer (BldC) [M ass/Vol]Ordered By: Dean Rodriguez on 11-06-2021 Glucose [Mass/Vol] 131 mg/dL 70-105 [facility] Hemoglobin Calc (Bld) [Mass/ Vol]Ordered By: Dean Rodriguez on 11-06-2021 Hemoglobin (Bld) [Mass/Vol] 13.9 g/dL 12.0-17. 0 [facility] Monocyte %Ordered By: Dean Rodriguez on 11-06-2021 Monocyte % 66.4 mm[Hg] 35-51 [facility] Monocyte % 22 mm[Hg] 80-105 [facility] Potassium (Bld) [Moles/Vol]O rdered By: Dean Rodriguez on 11-06-2021 Potassium [Moles/Vol] 4.1 mmol/L 3.5-4.9 [facility] Sodium (Bld) [Moles/Vol]Orde red By: Dean Rodriguez on 11-06-2021 Sodium [Moles/Vol] 139 mmol/L 138-146 [facility] Whole blood bicarbonate arsh urementOrdered By: Dean Rodriguez on 11-06-2021 HCO3 (Bld) [Moles/Vol] 33.2 mmol/L 22.0-28.0 [facility] Whole blood ionized calcium measurement (moles/volume)Ordered By: Dean Rodriguez on 11-06-2021 Calcium.ionized (Bld) [Moles/Vol] 1190 mmol/L 1 .12-1.32 [facility] Whole blood oxygen saturatio n measurementOrdered By: Dean Rodriguez on 11-06-2021 Oxygen saturation in Blood 30 % 95-98 [facility] Comment on above: Reference ranges ref lect baseline specimens only Whole blood pHOrdered By: Najma Rodriguez on 11-06-2021 pH (Bld) 7.307 Units 7.31-7.45 [facility] Cholesterol [Mass/volume] in Serum or PlasmaOrdered By: Dean Rodriguez on 11-05-2021 Cholesterol [Mass/Vol] 152 mg/dL 140-200 [facility] Comment on above: Chol less than 200 m g/dl low risk Chol 201-239 mg/dl borderline risk Chol 240 mg/dl and greater high risk Chol less than 200 m g/dl low riskChol 201-239 mg/dl borderline riskChol 240 mg/dl and greater high risk Cholesterol in LDL Calc [Mas s/Vol]Ordered By: Dean Rodriguez on 11-05-2021 Cholesterol in LDL [Mass/Vol] 79 mg/dL 0-100 [facility] Comment on above: LDL ATP III CLASSIFI CATION LDL less than 100 mg/dL Optimal LDL 100-129 mg/dL Near or above optimal LDL 130-159 mg/dL Borderline high LDL 160-189 mg/dL High LDL greater than 189 mg/dL Very high LDL ATP III CLASSIFI CATIONLDL less than 100 mg/dL OptimalLDL 100-129 mg/dL Near or above optimalLDL 130-159 mg/dL Borderline highLDL 160-189 mg/dL HighLDL greater than 189 mg/dL Very high Cholesterol in VLDL Calc [Ma ss/Vol]Ordered By: Dean Rodriguez on 11-05-2021 Cholesterol in VLDL [Mass/Vol] 36 mg/dL [facility] Serum or plasma high density lipoprotein (HDL) cholesterol measurementOrdered By: Dean Rodriguez on 11-05-2021 Cholesterol in HDL [Mass/Vol] 36 mg/dL 35-85 [facility] Comment on above: HDL CHOL ATP-III CLA SSIFICATION Cardiovascular Risk HDL > or equal to 60 mg/dL LOW HDL < 40 mg/dL HIGH HDL CHOL ATP-III CLA SSIFICATION Cardiovascular RiskHDL > or equal to 60 mg/dL LOWHDL < 40 mg/dL HIGH Serum or plasma total choles terol/high density lipoprotein (HDL) cholesterol mass ratOrdered By: Dean Rodriguez on 11-05-2021 Cholesterol.total/Cholestero l in HDL [Mass ratio] 4.2 {ratio} <5.0 [facility] Triglyceride [Mass/volume] i n Serum or PlasmaOrdered By: Dean Rodriguez on 11-05-2021 Triglyceride [Mass/Vol] 183 mg/dL 35-149 [facility] Comment on above: TRIG ATP III CLASSIF ICATION TRIG less than 150 mg/dL Normal TRIG 150-199 mg/dL Borderline high TRIG 200-500 mg/dL High TRIG greater than 500 mg/dL Very high Standard traceable to the Center for Disease Conrtrol and Prevention (CDC) test method. TRIG ATP III CLASSIF ICATIONTRIG less than 150 mg/dL NormalTRIG 150-199 mg/dL Borderline highTRIG 200-500 mg/dL High TRIG greater than 500 mg/dL Very highStandard traceable to the Center for Disease Conrtrol and Prevention (CDC) test method. Bacteria identified Aer cx N om (Unsp spec)Ordered By: Concetta Murphy on 11-04-2021 [facility] COVID-19 Positive/NegativeOr dered By: Robles Owen on 11-04-2021 SARS-CoV-2 (COVID-19) N gene NADINE+probe Ql (Resp) Negative Negative [facility] Comment on above: Testing for SARS-CoV -2 by RT-PCR This test was developed and its performance characteristics determined by [employer] ([employer] and validated at the [facility]. This test has not been FDA cleared or approved. This test has been authorized by FDA under an Emergency Use Authorization (EUA). This test has been validated in accordance with the FDA's Guidance Document (Policy for Diagnostics Testing in Laboratories Certified to Perform High Complexity Testing under CLIA prior to Emergency Use Authorization for Coronavirus Disease-2019 during the Public Health Emergency) issued on June 15, 2019. This test is only authorized for the duration of time the declaration that circumstances exist justifying the authorization of the emergency use of in vitro diagnostic tests for detection of SARS-CoV-2 virus and/or diagnosis of COVID-19 infection under section 564(b)(1) of the Act, 21 U.S.C. 360bbb-3(b)(1), unless the authorization is terminated or revoked sooner. Testing for SARS-CoV -2 by RT-PCRThis test was developed and its performance characteristics determined by [employer] ([employer] and validated at the [facility]. This test has not been FDA cleared or approved. This test has been authorized by FDA under an Emergency Use Authorization (EUA). This test has been validated in accordance with the FDA's Guidance Document (Policy for Diagnostics Testing in Laboratories Certified to Perform High Complexity Testing under CLIA prior to Emergency Use Authorization for Coronavirus Disease-2019 during the Public Health Emergency) issued on June 15, 2019. This test is only authorized for the duration of time the declaration that circumstances exist justifying the authorization of the emergency use of in vitro diagnostic tests for detection of SARS-CoV-2 virus and/or diagnosis of COVID-19 infection under section 564(b)(1) of the Act, 21 U.S.C. 360bbb-3(b)(1), unless the authorization is terminated or revoked sooner. COVID-19 SOFIAOrdered By: Ion Owen on 11-04-2021 SARS-CoV+SARS-CoV-2 (COVID-1 9) Ag IA.rapid Ql (Resp) Negative Negative [facility] Comment on above: This is a duplicate Antonina SARS Antigen (TAMRA) result to be used for statistical tracking purpose only. No Panel InformationOrdered By: Robles Owen on 11-04-2021 SARS Antigen (LFIA) [facility] Basophils Auto (Bld) [#/Vol] Ordered By: Concetta Murphy on 11-02-2021 Basophils (Bld) [#/Vol] 0.1 10*3/uL 0.0-0.2 [facility] Basophils/100 WBC Auto (Bld) Ordered By: Concetta Murphy on 11-02-2021 Basophils/100 WBC (Bld) 0.9 % . [facility] Blood hemoglobin measurement (mass/volume)Ordered By: Concetta Murphy on 11-02-2021 Hemoglobin (Bld) [Mass/Vol] 11.7 g/dL 11.8-15. 4 [facility] Blood leukocytes automated c ount (number/volume)Ordered By: Concetta Murphy on 11-02-2021 WBC (Bld) [#/Vol] 13.2 10*3/uL 3.8-11.6 [facility] COVID-19 SOFIAOrdered By: Co yasir Murphy on 11-02-2021 SARS-CoV+SARS-CoV-2 (COVID-1 9) Ag IA.rapid Ql (Resp) Negative Negative [facility] Comment on above: This is a duplicate Antonina SARS Antigen (TAMRA) result to be used for statistical tracking purpose only. Creatinine and Glomerular fi ltration rate.predicted panel (S/P/Bld)Ordered By: Concetta Murphy on 11-02-2021 Creatinine [Mass/Vol] 1.00 mg/dL 0.44-1.03 [facility] Eosinophils Auto (Bld) [#/Vo l]Ordered By: Concetta Murphy on 11-02-2021 Eosinophils (Bld) [#/Vol] 0.4 10*3/uL 0.0-0.45 [facility] Eosinophils/100 WBC Auto (Bl d)Ordered By: Concetta Murphy on 11-02-2021 Eosinophils/100 WBC (Bld) 3.0 % . [facility] Erythrocyte distribution wid th Auto (RBC) [Ratio]Ordered By: Concetta Murphy on 11-02-2021 Erythrocyte distribution wid th (RBC) [Ratio] 17.6 % 11.9-15.3 [facility] Estimated glomerular filtrat ion rate (GFR) non- AmericanOrdered By: Concetta Murphy on 11-02-2021 GFR/1.73 sq M.predicted rosie g non-blacks MDRD (S/P/Bld) [Vol rate/Area] 58 mL/Min [facility] Hematocrit Auto (Bld) [Volum e fraction]Ordered By: Concetta Murphy on 11-02-2021 Hematocrit (Bld) [Volume fraction] 37.1 % 3 4.0-46.4 [facility] Laboratory - Hematology and Cell countsOrdered By: Concetta Murphy on 11-02-2021 Nucleated RBC/100 WBC (Bld) [Ratio] 0.1 % 0-0.5 [facility] Lymphocytes Auto (Bld) [#/Vo l]Ordered By: Concetta Murphy on 11-02-2021 Lymphocytes (Bld) [#/Vol] 2.7 10*3/uL 1.00-4.8 [facility] Lymphocytes/100 WBC Auto (Bl d)Ordered By: Concetta Murphy on 11-02-2021 Lymphocytes/100 WBC (Bld) 20.7 % . [facility] MCH Auto (RBC) [Entitic mass ]Ordered By: Concetta Murphy on 11-02-2021 MCH (RBC) [Entitic mass] 29.4 pg 24.7-34.3 [facility] MCHC Auto (RBC) [Mass/Vol]Or dered By: Concetta Murphy on 11-02-2021 MCHC (RBC) [Mass/Vol] 31.5 g/dL 32.0-35.0 [facility] MCV Auto (RBC) [Entitic vol] Ordered By: Concetta Murphy on 11-02-2021 MCV (RBC) [Entitic vol] 93.1 fL 80-100 [facility] Monocytes Auto (Bld) [#/Vol] Ordered By: Concetta Murphy on 11-02-2021 Monocytes (Bld) [#/Vol] 0.7 10*3/uL 0.0-0.8 [facility] Monocytes/100 WBC Auto (Bld) Ordered By: Concetta Murphy on 11-02-2021 Monocytes/100 WBC (Bld) 5.6 % . [facility] Neutrophils Auto (Bld) [#/Vo l]Ordered By: Concetta Murphy on 11-02-2021 Neutrophils (Bld) [#/Vol] 9.2 10*3/uL 1.8-7.7 [facility] Neutrophils/100 WBC Auto (Bl d)Ordered By: Concetta Murphy on 11-02-2021 Neutrophils/100 WBC (Bld) 69.8 % . [facility] No Panel InformationOrdered By: Concetta Murphy on 11-02-2021 Estimated GFR () > 60 mL/Min [facility] Comment on above: GFR estimated refere nce range: According to KDOQI guidelines, <60 ml/min/1.73m2 is sufficient to diagnose a patient with chronic kidney disease. Pharmacy Creatinine Clearanc e (Chem 78.01 [facility] 13.2 10*3/uL 4.5-11.0 [facility] 0.1 % 0-0.5 [facility] > 60 mL/Min [facility] 78.01 [facility] SARS Antigen (LFIA) [facility] Platelet mean volume Auto (B ld) [Entitic vol]Ordered By: Concetta Murphy on 11-02-2021 Platelet mean volume (Bld) [Entitic vol] 7.2 fL 6.3-10.7 [facility] Platelets Auto (Bld) [#/Vol] Ordered By: Concetta Murphy on 11-02-2021 Platelets (Bld) [#/Vol] 405 10*3/uL 150-450 [facility] RBC Auto (Bld) [#/Vol]Ordere d By: Concetta Murphy on 11-02-2021 RBC (Bld) [#/Vol] 3.98 10*6/uL 3.60-5.00 [facility] Serum or plasma calcium arsh urement (mass/volume)Ordered By: Concetta Murphy on 11-02-2021 Calcium [Mass/Vol] 8.6 mg/dL 8.2-10.2 [facility] Serum or plasma chloride ten surement (moles/volume)Ordered By: Concetta Murphy on 11-02-2021 Chloride [Moles/Vol] 100 mmol/L 95-114 [facility] Serum or plasma creatinine m easurement with calculation of estimated glomerular filtrOrdered By: Concetta Murphy on 11-02-2021 Creatinine and Glomerular filtration rate.predicted panel (S/P/Bld) 1.00 mg/dL 0.44-1.03 [facility] Serum or plasma glucose arsh urement (mass/volume)Ordered By: Concetta Murphy on 11-02-2021 Glucose [Mass/Vol] 211 mg/dL 70-100 [facility] Comment on above: ADA recommended refe rence range Random Glucose Reference Range is dependent on time and content of last meal. Glucose of more than 200 mg/dL in a nonstressed, ambulatory subject supports the diagnosis of Diabetes Mellitus. ADA recommended refe rence rangeRandom Glucose Reference Range is dependent on time and content of last meal. Glucose of more than 200 mg/dL in a nonstressed, ambulatory subject supports the diagnosis of Diabetes Mellitus. Serum or plasma potassium me asurement (moles/volume)Ordered By: Concetta Murphy on 11-02-2021 Potassium [Moles/Vol] 3.8 mmol/L 3.5-5.1 [facility] Serum or plasma sodium measu rement (moles/volume)Ordered By: Concetta Murphy on 11-02-2021 Sodium [Moles/Vol] 138 mmol/L 136-146 [facility] Serum or plasma total carbon dioxide measurement (moles/volume)Ordered By: Concetta Murphy on 11-02-2021 CO2 [Moles/Vol] 27.1 mmol/L 22.0-30.0 [facility] Serum or plasma urea nitroge n measurement (mass/volume)Ordered By: Concetta Murphy on 11-02-2021 Urea nitrogen [Mass/Vol] 9 mg/dL 9-23 [facility] Urine lactic acid measuremen tOrdered By: Concetta Murphy on 11-02-2021 Lactate (U) [Moles/Vol] 2.2 mmol/L 0.5-2.2 [facility] Comment on above: Results called at 1657 on 11/02/21 Results calledat 165 7 on 11/02/21 Glucose Glucometer (BldC) [M ass/Vol]Ordered By: Zaid Mon on 10-17-2021 Glucose [Mass/Vol] 162 mg/dL [facility] Comment on above: Random Glucose Refer ence Range is dependent on time and content of last meal. Glucose of more than 200 mg/dL in a nonstressed, ambulatory subject supports the diagnosis of Diabetes Mellitus. No Panel InformationOrdered By: Zaid Mon on 10-15-2021 Bedside Glucose Comment Glu2: cleaned meter [facility] Glu2: cleaned meter [facility] Basophils Auto (Bld) [#/Vol] Ordered By: Zaid Mon on 10-14-2021 Basophils (Bld) [#/Vol] 0.0 10*3/uL 0.0-0.2 [facility] Basophils/100 WBC Auto (Bld) Ordered By: Zaid Mon on 10-14-2021 Basophils/100 WBC (Bld) 0.2 % . [facility] Blood hemoglobin measurement (mass/volume)Ordered By: Zaid Mon on 10-14-2021 Hemoglobin (Bld) [Mass/Vol] 8.9 g/dL 11.8-15. 4 [facility] Blood leukocytes automated c ount (number/volume)Ordered By: Zaid Mon on 10-14-2021 WBC (Bld) [#/Vol] 24.5 10*3/uL 3.8-11.6 [facility] Creatinine and Glomerular fi ltration rate.predicted panel (S/P/Bld)Ordered By: Zaid Mon on 10-14-2021 Creatinine [Mass/Vol] 0.86 mg/dL 0.44-1.03 [facility] Eosinophils Auto (Bld) [#/Vo l]Ordered By: Zaid Mon on 10-14-2021 Eosinophils (Bld) [#/Vol] 0.0 10*3/uL 0.0-0.45 [facility] Eosinophils/100 WBC Auto (Bl d)Ordered By: Zaid Mon on 10-14-2021 Eosinophils/100 WBC (Bld) 0.1 % . [facility] Erythrocyte distribution wid th Auto (RBC) [Ratio]Ordered By: Zaid Mon on 10-14-2021 Erythrocyte distribution wid th (RBC) [Ratio] 16.9 % 11.9-15.3 [facility] Estimated glomerular filtrat ion rate (GFR) non- AmericanOrdered By: Zaid Mon on 10-14-2021 GFR/1.73 sq M.predicted rosie g non-blacks MDRD (S/P/Bld) [Vol rate/Area] > 60 mL/Min [facility] Hematocrit Auto (Bld) [Volum e fraction]Ordered By: Zaid Mon on 10-14-2021 Hematocrit (Bld) [Volume fraction] 28.0 % 3 4.0-46.4 [facility] Laboratory - Hematology and Cell countsOrdered By: Zaid Mon on 10-14-2021 Nucleated RBC/100 WBC (Bld) [Ratio] 0.1 % 0-0.5 [facility] Lymphocytes Auto (Bld) [#/Vo l]Ordered By: Zaid Mon on 10-14-2021 Lymphocytes (Bld) [#/Vol] 1.6 10*3/uL 1.00-4.8 [facility] Lymphocytes/100 WBC Auto (Bl d)Ordered By: Zaid Mon on 10-14-2021 Lymphocytes/100 WBC (Bld) 6.4 % . [facility] MCH Auto (RBC) [Entitic mass ]Ordered By: Zaid Mon on 10-14-2021 MCH (RBC) [Entitic mass] 29.8 pg 24.7-34.3 [facility] MCHC Auto (RBC) [Mass/Vol]Or dered By: Zaid Mon on 10-14-2021 MCHC (RBC) [Mass/Vol] 31.8 g/dL 32.0-35.0 [facility] MCV Auto (RBC) [Entitic vol] Ordered By: Zaid Mon on 10-14-2021 MCV (RBC) [Entitic vol] 93.5 fL 80-100 [facility] Monocytes Auto (Bld) [#/Vol] Ordered By: Zaid Mon on 10-14-2021 Monocytes (Bld) [#/Vol] 1.1 10*3/uL 0.0-0.8 [facility] Monocytes/100 WBC Auto (Bld) Ordered By: Zaid Mon on 10-14-2021 Monocytes/100 WBC (Bld) 4.4 % . [facility] Neutrophils Auto (Bld) [#/Vo l]Ordered By: Zaid Mon on 10-14-2021 Neutrophils (Bld) [#/Vol] 21.8 10*3/uL 1.8-7.7 [facility] Neutrophils/100 WBC Auto (Bl d)Ordered By: Zaid Mon on 10-14-2021 Neutrophils/100 WBC (Bld) 88.9 % . [facility] No Panel InformationOrdered By: Zaid Mon on 10-14-2021 Estimated GFR () > 60 mL/Min [facility] Comment on above: GFR estimated refere nce range: According to KDOQI guidelines, <60 ml/min/1.73m2 is sufficient to diagnose a patient with chronic kidney disease. Pharmacy Creatinine Clearanc e (Chem 94.09 [facility] 24.5 10*3/uL 4.5-11.0 [facility] 0.1 % 0-0.5 [facility] > 60 mL/Min [facility] 94.09 [facility] Platelet mean volume Auto (B ld) [Entitic vol]Ordered By: Zaid Mon on 10-14-2021 Platelet mean volume (Bld) [Entitic vol] 7.0 fL 6.3-10.7 [facility] Platelets Auto (Bld) [#/Vol] Ordered By: Zaid Mon on 10-14-2021 Platelets (Bld) [#/Vol] 536 10*3/uL 150-450 [facility] RBC Auto (Bld) [#/Vol]Ordere d By: Zaid Mon on 10-14-2021 RBC (Bld) [#/Vol] 3.00 10*6/uL 3.60-5.00 [facility] Serum or plasma calcium arsh urement (mass/volume)Ordered By: Zaid Mon on 10-14-2021 Calcium [Mass/Vol] 8.5 mg/dL 8.2-10.2 [facility] Serum or plasma chloride ten surement (moles/volume)Ordered By: Zaid Mon on 10-14-2021 Chloride [Moles/Vol] 100 mmol/L 95-114 [facility] Serum or plasma creatinine m easurement with calculation of estimated glomerular filtrOrdered By: Zaid Mon on 10-14-2021 Creatinine and Glomerular filtration rate.predicted panel (S/P/Bld) 0.86 mg/dL 0.44-1.03 [facility] Serum or plasma glucose arsh urement (mass/volume)Ordered By: Zaid Mon on 10-14-2021 Glucose [Mass/Vol] 189 mg/dL 70-100 [facility] Comment on above: ADA recommended refe rence range Random Glucose Reference Range is dependent on time and content of last meal. Glucose of more than 200 mg/dL in a nonstressed, ambulatory subject supports the diagnosis of Diabetes Mellitus. ADA recommended refe rence rangeRandom Glucose Reference Range is dependent on time and content of last meal. Glucose of more than 200 mg/dL in a nonstressed, ambulatory subject supports the diagnosis of Diabetes Mellitus. Serum or plasma potassium me asurement (moles/volume)Ordered By: Zaid Mon on 10-14-2021 Potassium [Moles/Vol] 4.1 mmol/L 3.5-5.1 [facility] Serum or plasma sodium measu rement (moles/volume)Ordered By: Zaid Mon on 10-14-2021 Sodium [Moles/Vol] 136 mmol/L 136-146 [facility] Serum or plasma total carbon dioxide measurement (moles/volume)Ordered By: Zaid Mon on 10-14-2021 CO2 [Moles/Vol] 29.3 mmol/L 22.0-30.0 [facility] Serum or plasma urea nitroge n measurement (mass/volume)Ordered By: Zaid Mon on 10-14-2021 Urea nitrogen [Mass/Vol] 11 mg/dL 9-23 [facility] Blood activated clotting rasta e by coagulation assayOrdered By: Zaid Mon on 10-13-2021 ACT Coag (Bld) 242 s 90-139 [facility] Comment on above: Reference Range: 90- 139 (Non-heparinized) Bacteria identified Anaer cx Nom (Unsp spec)Ordered By: CWS Kanu Mehta on 10-11-2021 Anaerobic microbial culture No Anaerobes Isolated 3 Days [facility] COVID-19 Positive/NegativeOr dered By: Zaid Mon on 10-10-2021 SARS-CoV-2 (COVID-19) N gene NADINE+probe Ql (Resp) Negative Negative [facility] Comment on above: Testing for SARS-CoV -2 by RT-PCR This test was developed and its performance characteristics determined by [employer] ([place]) and validated at the [facility]. This test has not been FDA cleared or approved. This test has been authorized by FDA under an Emergency Use Authorization (EUA). This test has been validated in accordance with the FDA's Guidance Document (Policy for Diagnostics Testing in Laboratories Certified to Perform High Complexity Testing under CLIA prior to Emergency Use Authorization for Coronavirus Disease-2019 during the Public Health Emergency) issued on June 15, 2019. This test is only authorized for the duration of time the declaration that circumstances exist justifying the authorization of the emergency use of in vitro diagnostic tests for detection of SARS-CoV-2 virus and/or diagnosis of COVID-19 infection under section 564(b)(1) of the Act, 21 U.S.C. 360bbb-3(b)(1), unless the authorization is terminated or revoked sooner. Testing for SARS-CoV -2 by RT-PCRThis test was developed and its performance characteristics determined by [employer] ([place]) and validated at the [facility]. This test has not been FDA cleared or approved. This test has been authorized by FDA under an Emergency Use Authorization (EUA). This test has been validated in accordance with the FDA's Guidance Document (Policy for Diagnostics Testing in Laboratories Certified to Perform High Complexity Testing under CLIA prior to Emergency Use Authorization for Coronavirus Disease-2019 during the Public Health Emergency) issued on June 15, 2019. This test is only authorized for the duration of time the declaration that circumstances exist justifying the authorization of the emergency use of in vitro diagnostic tests for detection of SARS-CoV-2 virus and/or diagnosis of COVID-19 infection under section 564(b)(1) of the Act, 21 U.S.C. 360bbb-3(b)(1), unless the authorization is terminated or revoked sooner. Glucose Glucometer (BldC) [M ass/Vol]Ordered By: Adithya Rm on 10-09-2021 Glucose [Mass/Vol] 153 mg/dL [facility] Comment on above: Random Glucose Refer ence Range is dependent on time and content of last meal. Glucose of more than 200 mg/dL in a nonstressed, ambulatory subject supports the diagnosis of Diabetes Mellitus. Triglyceride [Mass/volume] i n Serum or PlasmaOrdered By: Clyde Luna on 10-09-2021 Triglyceride [Mass/Vol] 82 mg/dL 35-149 [facility] Comment on above: TRIG ATP III CLASSIF ICATION TRIG less than 150 mg/dL Normal TRIG 150-199 mg/dL Borderline high TRIG 200-500 mg/dL High TRIG greater than 500 mg/dL Very high Standard traceable to the Center for Disease Conrtrol and Prevention (CDC) test method. TRIG ATP III CLASSIF ICATIONTRIG less than 150 mg/dL NormalTRIG 150-199 mg/dL Borderline highTRIG 200-500 mg/dL High TRIG greater than 500 mg/dL Very highStandard traceable to the Center for Disease Conrtrol and Prevention (CDC) test method. ABO and Rh group post transf usion reaction Nom (Bld)Ordered By: AUTUMN Mehta on 10-08-2021 Microscopic observation Gram stain Nom (Unsp spec) [facility] Albumin [Mass/volume] in Ser um or PlasmaOrdered By: Adithya Rm on 10-08-2021 Albumin [Mass/Vol] 2.6 g/dL 3.2-5.5 [facility] Basophils Auto (Bld) [#/Vol] Ordered By: Clyde Luna on 10-08-2021 Basophils (Bld) [#/Vol] 0.1 10*3/uL 0.0-0.2 [facility] Basophils/100 WBC Auto (Bld) Ordered By: Clyde Luna on 10-08-2021 Basophils/100 WBC (Bld) 0.6 % . [facility] Blood hemoglobin measurement (mass/volume)Ordered By: Clyde Luna on 10-08-2021 Hemoglobin (Bld) [Mass/Vol] 9.3 g/dL 11.8-15. 4 [facility] Blood leukocytes automated c ount (number/volume)Ordered By: Clyde Luna on 10-08-2021 WBC (Bld) [#/Vol] 17.4 10*3/uL 3.8-11.6 [facility] Creatinine and Glomerular fi ltration rate.predicted panel (S/P/Bld)Ordered By: Adithya Rm on 10-08-2021 Creatinine [Mass/Vol] 0.77 mg/dL 0.44-1.03 [facility] Eosinophils Auto (Bld) [#/Vo l]Ordered By: Clyde Luna on 10-08-2021 Eosinophils (Bld) [#/Vol] 0.4 10*3/uL 0.0-0.45 [facility] Eosinophils/100 WBC Auto (Bl d)Ordered By: Clyde Luna on 10-08-2021 Eosinophils/100 WBC (Bld) 2.3 % . [facility] Erythrocyte distribution wid th Auto (RBC) [Ratio]Ordered By: Clyde Luna on 10-08-2021 Erythrocyte distribution wid th (RBC) [Ratio] 16.6 % 11.9-15.3 [facility] Estimated glomerular filtrat ion rate (GFR) non- AmericanOrdered By: Adithya Rm on 10-08-2021 GFR/1.73 sq M.predicted rosie g non-blacks MDRD (S/P/Bld) [Vol rate/Area] > 60 mL/Min [facility] Globulin Calc (S) [Mass/Vol] Ordered By: Adithya Rm on 10-08-2021 Globulin (S) [Mass/Vol] 3.6 g/dL [facility] Hematocrit Auto (Bld) [Volum e fraction]Ordered By: Clyde Luna on 10-08-2021 Hematocrit (Bld) [Volume fraction] 27.8 % 3 4.0-46.4 [facility] Laboratory - Hematology and Cell countsOrdered By: Clyde Arriagarram on 10-08-2021 Nucleated RBC/100 WBC (Bld) [Ratio] 0.4 % 0-0.5 [facility] Lymphocytes Auto (Bld) [#/Vo l]Ordered By: Clyde Jeremy on 10-08-2021 Lymphocytes (Bld) [#/Vol] 2.0 10*3/uL 1.00-4.8 [facility] Lymphocytes/100 WBC Auto (Bl d)Ordered By: Clyde Jeremy on 10-08-2021 Lymphocytes/100 WBC (Bld) 11.5 % . [facility] MCH Auto (RBC) [Entitic mass ]Ordered By: Clyde Jeremy on 10-08-2021 MCH (RBC) [Entitic mass] 30.9 pg 24.7-34.3 [facility] MCHC Auto (RBC) [Mass/Vol]Or dered By: Clyde Jeremy on 10-08-2021 MCHC (RBC) [Mass/Vol] 33.5 g/dL 32.0-35.0 [facility] MCV Auto (RBC) [Entitic vol] Ordered By: Clyde Jeremy on 10-08-2021 MCV (RBC) [Entitic vol] 92.3 fL 80-100 [facility] Monocytes Auto (Bld) [#/Vol] Ordered By: Clyde Jeremy on 10-08-2021 Monocytes (Bld) [#/Vol] 1.0 10*3/uL 0.0-0.8 [facility] Monocytes/100 WBC Auto (Bld) Ordered By: Clyde Jeremy on 10-08-2021 Monocytes/100 WBC (Bld) 5.8 % . [facility] Neutrophils Auto (Bld) [#/Vo l]Ordered By: Clyde Jeremy on 10-08-2021 Neutrophils (Bld) [#/Vol] 13.9 10*3/uL 1.8-7.7 [facility] Neutrophils/100 WBC Auto (Bl d)Ordered By: Clyde Jeremy on 10-08-2021 Neutrophils/100 WBC (Bld) 79.8 % . [facility] No Panel InformationOrdered By: Adithya Rm on 10-08-2021 Bedside Glucose Comment Glu2: cleaned meter [facility] Glu2: cleaned meter [facility] Estimated GFR () > 60 mL/Min [facility] Comment on above: GFR estimated refere nce range: According to KDOQI guidelines, <60 ml/min/1.73m2 is sufficient to diagnose a patient with chronic kidney disease. Pharmacy Creatinine Clearance (Chem 110.93 [facility] > 60 mL/Min [facility] 110.93 [facility] No Panel InformationOrdered By: Clyde Luna on 10-08-2021 17.4 10*3/uL 4.5-11.0 [facility] 0.4 % 0-0.5 [facility] Platelet mean volume Auto (B ld) [Entitic vol]Ordered By: Clyde Luna on 10-08-2021 Platelet mean volume (Bld) [Entitic vol] 7.3 fL 6.3-10.7 [facility] Platelets Auto (Bld) [#/Vol] Ordered By: Clyde Luna on 10-08-2021 Platelets (Bld) [#/Vol] 451 10*3/uL 150-450 [facility] Protein [Mass/volume] in Ser um or PlasmaOrdered By: Adithya Rm on 10-08-2021 Protein [Mass/Vol] 6.2 g/dL 6.1-7.9 [facility] RBC Auto (Bld) [#/Vol]Ordere d By: Clyde Luna on 10-08-2021 RBC (Bld) [#/Vol] 3.01 10*6/uL 3.60-5.00 [facility] Serum or plasma alanine bruno otransferase measurement without P-5'-P (enzymatic activiOrdered By: Adithya Rm on 10-08-2021 ALT No additional P-5'-P [Ca talytic activity/Vol] 16 U/L 10-60 [facility] Serum or plasma albumin/glob ulin mass ratioOrdered By: Adithya Rm on 10-08-2021 Albumin/Globulin [Mass ratio] 0.7 {ratio} [facility] Serum or plasma alkaline mirella sphatase measurement (enzymatic activity/volume)Ordered By: Adithya Rm on 10-08-2021 ALP [Catalytic activity/Vol] 73 U/L 32-92 [facility] Serum or plasma aspartate am inotransferase measurement (enzymatic activity/volume)Ordered By: Adithya Rm on 10-08-2021 AST [Catalytic activity/Vol] 18 U/L 10-42 [facility] Serum or plasma calcium arsh urement (mass/volume)Ordered By: Adithya Rm on 10-08-2021 Calcium [Mass/Vol] 8.5 mg/dL 8.2-10.2 [facility] Serum or plasma chloride ten surement (moles/volume)Ordered By: Adithya Rm on 10-08-2021 Chloride [Moles/Vol] 102 mmol/L 95-114 [facility] Serum or plasma creatinine m easurement with calculation of estimated glomerular filtrOrdered By: Adithya Rm on 10-08-2021 Creatinine and Glomerular filtration rate.predicted panel (S/P/Bld) 0.77 mg/dL 0.44-1.03 [facility] Serum or plasma glucose arsh urement (mass/volume)Ordered By: Adithya Rm on 10-08-2021 Glucose [Mass/Vol] 131 mg/dL 70-100 [facility] Comment on above: ADA recommended refe rence range Random Glucose Reference Range is dependent on time and content of last meal. Glucose of more than 200 mg/dL in a nonstressed, ambulatory subject supports the diagnosis of Diabetes Mellitus. ADA recommended refe rence rangeRandom Glucose Reference Range is dependent on time and content of last meal. Glucose of more than 200 mg/dL in a nonstressed, ambulatory subject supports the diagnosis of Diabetes Mellitus. Serum or plasma potassium me asurement (moles/volume)Ordered By: Adithya Rm on 10-08-2021 Potassium [Moles/Vol] 3.8 mmol/L 3.5-5.1 [facility] Serum or plasma sodium measu rement (moles/volume)Ordered By: Adithya Rm on 10-08-2021 Sodium [Moles/Vol] 137 mmol/L 136-146 [facility] Serum or plasma total biliru bin measurement (mass/volume)Ordered By: Adithya Rm on 10-08-2021 Bilirubin [Mass/Vol] 1.1 mg/dL 0.3-1.2 [facility] Serum or plasma total carbon dioxide measurement (moles/volume)Ordered By: Adithya Rm on 10-08-2021 CO2 [Moles/Vol] 28.3 mmol/L 22.0-30.0 [facility] Serum or plasma urea nitroge n measurement (mass/volume)Ordered By: Adithya Rm on 10-08-2021 Urea nitrogen [Mass/Vol] 6 mg/dL 9-23 [facility] Bacterial blood cultureOrder ed By: Ankur Mahan on 10-02-2021 Bacteria identified Cx Nom (Bld) NO GROWTH 5 DAYS [facility] Laboratory - Chemistry and C hemistry - challengeOrdered By: Clyde Luna on 10-02-2021 Magnesium [Mass/Vol] 1.6 mg/dL 1.6-2.6 [facility] No Panel InformationOrdered By: Clyde Luna on 10-02-2021 1.6 mg/dL 1.6-2.6 [facility] Activated partial thrombopla stin time (aPTT) in platelet poor plasma by coagulation aOrdered By: Juliane Campbell on 09-30-2021 aPTT Coag (PPP) [Time] 27.0 s 25.1-36.5 [facility] - CoagulationOrde red By: Juliane Campbell on 09-30-2021 PT Coag (PPP) [Time] 13.1 s 9.0-12.9 [facility] No Panel InformationOrdered By: Juliane Campbell on 09-30-2021 13.1 s 9.0-12.9 [facility] Platelet poor plasma interna tional normalized ratio (INR) by coagulation assay (relatOrdered By: Juliane Campbell on 09-30-2021 INR Coag (PPP) [Relative time] 1.2 {INR} [facility] Comment on above: INR Therapeutic Rang e A) Pre- and Peroperative OAT started two weeks before surgery. NOT HIP SURGERY: 1.5 - 2.5 HIP SURGERY: 2 - 3 B) Primary and secondary prevention of venous THROMBOSIS: 2 - 3 C) Active venous thrombosis, pulmonary embolism and prevention of recurrent venous thrombosis: 2 - 3 D) Prevention of arterial thromboembolism including patients with mechanical heart valves: 3 - 4.5 INR Therapeutic Rang e A) Pre- and Peroperative OAT started two weeks before surgery. NOT HIP SURGERY: 1.5 - 2.5 HIP SURGERY: 2 - 3B) Primary and secondary prevention of venous THROMBOSIS: 2 - 3C) Active venous thrombosis, pulmonary embolismand prevention of recurrent venous thrombosis: 2 - 3D) Prevention of arterial thromboembolismincluding patients with mechanical heart valves: 3 - 4.5 Glucose mean value [Mass/vol ume] in Blood Estimated from glycated hemoglobinOrdered By: Elise Marie on 09-28-2021 Average glucose Estimated fr om glycated hemoglobin (Bld) [Mass/Vol] 146 mg/dL [facility] Hemoglobin A1c percentageOrd ered By: Elise Marie on 09-28-2021 HbA1c (Bld) [Mass fraction] 6.7 % 4.3-5.6 [facility] Comment on above: Increased risk for d iabetes: 5.7 - 6.4 diabetes: >6.4 glycemic control for adults with diabetes: <7.0 Increased risk for d iabetes: 5.7 - 6.4diabetes: >6.4glycemic control for adults with diabetes: <7.0 C reactive protein [Mass/vol ume] in Serum or PlasmaOrdered By: Ankur Mahan on 09-27-2021 CRP [Mass/Vol] 0.6 mg/dL 0.0-1.0 [facility] COVID-19 Positive/NegativeOr dered By: Ankur Mahan on 09-27-2021 SARS-CoV-2 (COVID-19) N gene NADINE+probe Ql (Resp) Negative Negative [facility] Comment on above: Testing for SARS-CoV -2 by RT-PCR This test was developed and its performance characteristics determined by [employer] ([place]) and validated at the [facility]. This test has not been FDA cleared or approved. This test has been authorized by FDA under an Emergency Use Authorization (EUA). This test has been validated in accordance with the FDA's Guidance Document (Policy for Diagnostics Testing in Laboratories Certified to Perform High Complexity Testing under CLIA prior to Emergency Use Authorization for Coronavirus Disease-2019 during the Public Health Emergency) issued on June 15, 2019. This test is only authorized for the duration of time the declaration that circumstances exist justifying the authorization of the emergency use of in vitro diagnostic tests for detection of SARS-CoV-2 virus and/or diagnosis of COVID-19 infection under section 564(b)(1) of the Act, 21 U.S.C. 360bbb-3(b)(1), unless the authorization is terminated or revoked sooner. Testing for SARS-CoV -2 by RT-PCRThis test was developed and its performance characteristics determined by [employer] ([place]) and validated at the [facility]. This test has not been FDA cleared or approved. This test has been authorized by FDA under an Emergency Use Authorization (EUA). This test has been validated in accordance with the FDA's Guidance Document (Policy for Diagnostics Testing in Laboratories Certified to Perform High Complexity Testing under CLIA prior to Emergency Use Authorization for Coronavirus Disease-2019 during the Public Health Emergency) issued on June 15, 2019. This test is only authorized for the duration of time the declaration that circumstances exist justifying the authorization of the emergency use of in vitro diagnostic tests for detection of SARS-CoV-2 virus and/or diagnosis of COVID-19 infection under section 564(b)(1) of the Act, 21 U.S.C. 360bbb-3(b)(1), unless the authorization is terminated or revoked sooner. COVID-19 SOFIAOrdered By: Philip Mahan on 09-27-2021 SARS-CoV+SARS-CoV-2 (COVID-1 9) Ag IA.rapid Ql (Resp) Negative Negative [facility] Comment on above: This is a duplicate Antonina SARS Antigen (TAMRA) result to be used for statistical tracking purpose only. Erythrocyte sedimentation ra te by Photometric methodOrdered By: Ankur Mahan on 09-27-2021 ESR Photometric method (Bld) [Velocity] 21 mm/hr 0-29 [facility] No Panel InformationOrdered By: Ankur Mahan on 09-27-2021 SARS Antigen (LFIA) [facility] TSH DL <= 0.005 mIU/L QnOrde red By: Yung David on 09-11-2021 TSH Qn 7.23 m[IU]/L 0.45-5.33 [facility] Free T4on 04-29-2021 Free T4 [Mass/Vol] 1.65 ng/dL Normal 0.80-1.80 [facility] [employer] Comment on above: Performed By: #### T SH, FT4 #### [facility] [address], [place] [id number] Hemoglobin A1Con 04-29-2021 EAG 171.42 Normal [facility] Comment on above: Performed By: #### A 1C #### [facility] [address], [place] [id number] HbA1c (Bld) [Mass fraction] 7.6 % High 4.0-6.0 [facility] Comment on above: Performed By: #### A 1C #### [facility] [address], [place] [id number] TSHon 04-29-2021 TSH Qn m[IU]/L Low [facility] Comment on above: Performed By: #### T SH, FT4 #### [facility] [address], [place] [id number] No Panel Information [facility] Vital Signs Date Time Vital Sign Value Performing Clinician Facility 02-19-2023 14:38-0500 Diastolic blood pressure 78 mm[Hg] MD Jarvis Thrasher Work Phone: [facility] 02-19-2023 14:38-0500 Heart rate 79 /min MD Jarvis Thrasher Work Phone: [facility] 02-19-2023 14:38-0500 Respiratory rate 16 /min MD Jarvis Thrasher Work Phone: [facility] 02-19-2023 14:38-0500 SaO2% (BldA) [Mass fraction] 93 % MD Jarvis Thrasher Work Phone: [facility] 02-19-2023 14:38-0500 Systolic blood pressure 104 mm[Hg] MD Jarvis Thrasher Work Phone: [facility] 02-19-2023 13:35-0500 Body temperature 98.4 [degF] MD Jarvis Thrasher Work Phone: [facility] 02-19-2023 13:35-0500 Inhaled oxygen flow rate 10 L/min MD Jarvis Thrasher Work Phone: [facility] 02-19-2023 13:03-0500 Body height 165.1 cm MD Jarvis Thrasher Work Phone: [facility] 02-19-2023 13:03-0500 Body mass index (BMI) [Ratio] 39.9 kg/m2 MD Jarvis Thrasher Work Phone: [facility] 02-19-2023 13:03-0500 Body weight 108.86 kg MD Jarvis Thrasher Work Phone: [facility] 02-09-2023 14:50-0500 Body temperature 97.6 [degF] MD Jarvis Thrasher Work Phone: [facility] 02-09-2023 14:50-0500 Body weight 116.11 kg MD Jarvis Thrasher Work Phone: [facility] 02-09-2023 14:50-0500 Diastolic blood pressure 86 mm[Hg] MD Jarvis Thrasher Work Phone: [facility] 02-09-2023 14:50-0500 Heart rate 73 /min MD Jarvis Thrasher Work Phone: [facility] 02-09-2023 14:50-0500 Respiratory rate 16 /min MD aJrvis Thrasher Work Phone: [facility] 02-09-2023 14:50-0500 SaO2% (BldA) [Mass fraction] 96 % MD Jarvis Thrasher Work Phone: [facility] 02-09-2023 14:50-0500 Systolic blood pressure 132 mm[Hg] MD Jarvis Thrasher Work Phone: [facility] 02-09-2023 14:37-0500 Body height 165.1 cm MD Jarvis Thrasher Work Phone: [facility] 02-02-2023 15:22-0500 Body temperature 97.9 [degF] MD Jarvis Thrasher Work Phone: [facility] 02-02-2023 15:22-0500 Diastolic blood pressure 96 mm[Hg] MD Jarvis Thrasher Work Phone: [facility] 02-02-2023 15:22-0500 Heart rate 54 /min MD Jarvis Thrasher Work Phone: [facility] 02-02-2023 15:22-0500 Respiratory rate 16 /min MD Jarvis Thrasher Work Phone: [facility] 02-02-2023 15:22-0500 SaO2% (BldA) [Mass fraction] 97 % MD Jarvis Thrasher Work Phone: [facility] 02-02-2023 15:22-0500 Systolic blood pressure 158 mm[Hg] MD Jarvis Thrasher Work Phone: [facility] 02-02-2023 06:15-0500 Body weight 113 kg MD Jarvis Thrasher Work Phone: [facility] 02-01-2023 18:47-0500 Inhaled oxygen flow rate 8 L/min MD Jarvis Thrasher Work Phone: [facility] 02-01-2023 18:09-0500 Body height 165.1 cm MD Jarvis Thrasher Work Phone: [facility] 02-01-2023 18:09-0500 Body mass index (BMI) [Ratio] 41.4 kg/m2 MD Jarvis Thrasher Work Phone: [facility] 01-28-2023 19:16-0500 Diastolic blood pressure 61 mm[Hg] MD Jarvis Thrasher Work Phone: [facility] 01-28-2023 19:16-0500 Heart rate 76 /min MD Jarvis Thrasher Work Phone: [facility] 01-28-2023 19:16-0500 Respiratory rate 20 /min MD Jarvis Thrasher Work Phone: [facility] 01-28-2023 19:16-0500 SaO2% (BldA) [Mass fraction] 97 % MD Jarvis Thrasher Work Phone: [facility] 01-28-2023 19:16-0500 Systolic blood pressure 135 mm[Hg] MD Jarvis Thrahser Work Phone: [facility] 01-28-2023 14:36-0500 Body height 165.1 cm MD Jarvis Thrasher Work Phone: [facility] 01-28-2023 14:36-0500 Body temperature 97.3 [degF] MD Jarvis Thrasher Work Phone: [facility] 01-28-2023 14:36-0500 Body weight 104.32 kg MD Jarvis Thrasher Work Phone: [facility] 11-11-2022 10:30-0400 Body height 165.1 cm Alejandra Middleton Other [facility] [employer] Other 11-11-2022 10:30-0400 Body mass index (BMI) [Ratio] 41.6 kg/m2 Alejandra Middleton Other [employer] Other 11-11-2022 10:30-0400 Body temperature 96.8 [degF] Alejandra Middleton Other [employer] Other 11-11-2022 10:30-0400 Body weight 113.4 kg Alejandra Middleton Other [employer] Other 11-11-2022 10:30-0400 Diastolic blood pressure 64 mm[Hg] Alejandra Middleton Other [employer] Other 11-11-2022 10:30-0400 SaO2% (BldA) [Mass fraction] 97 % Alejandra Middleton Other [employer] Other 11-11-2022 10:30-0400 Systolic blood pressure 118 mm[Hg] Alejandra Middleton Other [employer] Other 11-10-2022 15:41-0400 Body height 165.1 cm PHYSICIAN [facility] 11-10-2022 15:41-0400 Body temperature 97.8 [degF] PHYSICIAN [facility] 11-10-2022 15:41-0400 Body weight 114 kg PHYSICIAN NO [facility] 11-10-2022 15:41-0400 Diastolic blood pressure 70 mm[Hg] PHYSICIAN NO [facility] 11-10-2022 15:41-0400 Heart rate 85 /min PHYSICIAN [facility] 11-10-2022 15:41-0400 Respiratory rate 12 /min PHYSICIAN NO [facility] 11-10-2022 15:41-0400 SaO2% (BldA) [Mass fraction] 97 % PHYSICIAN NO [facility] 11-10-2022 15:41-0400 Systolic blood pressure 101 mm[Hg] PHYSICIAN NO [facility] 10-20-2022 15:40-0400 Diastolic blood pressure 66 mm[Hg] MD Jarvis Thrasher Work Phone: [facility] 10-20-2022 15:40-0400 Heart rate 73 /min MD Jarvis Thrasher Work Phone: [facility] 10-20-2022 15:40-0400 Respiratory rate 16 /min MD Jarvis Thrasher Work Phone: [facility] 10-20-2022 15:40-0400 SaO2% (BldA) [Mass fraction] 94 % MD Jarvis Thrasher Work Phone: [facility] 10-20-2022 15:40-0400 Systolic blood pressure 101 mm[Hg] MD Jarvis Thrasher Work Phone: [facility] 10-20-2022 14:00-0400 Body mass index (BMI) [Ratio] 41.5 kg/m2 MD Jarvis Thrasher Work Phone: [facility] 10-20-2022 13:23-0400 Body height 165.1 cm MD Jarvis Thrasher Work Phone: [facility] 10-20-2022 13:23-0400 Body weight 113.39 kg MD Jarvis Thrasher Work Phone: [facility] 10-20-2022 12:15-0400 Body temperature 98.1 [degF] MD Jarvis Thrasher Work Phone: [facility] 08-24-2022 09:05-0400 Body height 165.1 cm MD Jarvis Thrasher Work Phone: [facility] 08-24-2022 09:05-0400 Body mass index (BMI) [Ratio] 42.7 kg/m2 MD Jarvis Thrasher Work Phone: [facility] 08-24-2022 09:05-0400 Body weight 116.5 kg MD Jarvis Thrasher Work Phone: [facility] 08-24-2022 08:40-0400 Diastolic blood pressure 72 mm[Hg] MD Jarvis Thrasher Work Phone: [facility] 08-24-2022 08:40-0400 Heart rate 86 /min MD Jarvis Thrasher Work Phone: [facility] 08-24-2022 08:40-0400 Respiratory rate 66 /min MD Jarvis Thrasher Work Phone: [facility] 08-24-2022 08:40-0400 SaO2% (BldA) [Mass fraction] 95 % MD Jarvis Thrasher Work Phone: [facility] 08-24-2022 08:40-0400 Systolic blood pressure 115 mm[Hg] MD Jarvis Thrasher Work Phone: [facility] 08-24-2022 06:06-0400 Body temperature 98.1 [degF] MD Jarvis Thrasher Work Phone: [facility] 07-10-2022 15:18-0400 Diastolic blood pressure 65 mm[Hg] MD Jarvis Thrasher Work Phone: [facility] 07-10-2022 15:18-0400 Heart rate 86 /min MD Jarvis Thrasher Work Phone: [facility] 07-10-2022 15:18-0400 Respiratory rate 16 /min MD Jarvis Thrasher Work Phone: [facility] 07-10-2022 15:18-0400 SaO2% (BldA) [Mass fraction] 92 % MD Jarvis Thrasher Work Phone: [facility] 07-10-2022 15:18-0400 Systolic blood pressure 117 mm[Hg] MD Jarvis Thrasher Work Phone: [facility] 07-10-2022 14:58-0400 Body height 165.1 cm MD Jarvis Thrasher Work Phone: [facility] 07-10-2022 14:58-0400 Body mass index (BMI) [Ratio] 39.9 kg/m2 MD Jarvis Thrasher Work Phone: [facility] 07-10-2022 14:58-0400 Body weight 108.86 kg MD Jarvis Thrasher Work Phone: [facility] 07-10-2022 12:54-0400 Body temperature 98.3 [degF] MD Jarvis Thrasher Work Phone: [facility] 04-30-2022 11:30-0500 Body height 165.1 cm Zaid Duroniva Other [facility] [employer] Other 04-30-2022 11:30-0500 Body mass index (BMI) [Ratio] 41.6 kg/m2 Zaid Duroniva Other [facility] [employer] Other 04-30-2022 11:30-0500 Body weight 113.4 kg Zaid Duroniva Other [facility] [employer] Other 03-27-2022 16:03-0500 Diastolic blood pressure 61 mm[Hg] MD Jarvis Thrasher Work Phone: [facility] 03-27-2022 16:03-0500 Heart rate 67 /min MD Jarvis Thrasher Work Phone: [facility] 03-27-2022 16:03-0500 Respiratory rate 16 /min MD Jarvis Thrasher Work Phone: [facility] 03-27-2022 16:03-0500 SaO2% (BldA) [Mass fraction] 97 % MD Jarvis Thrasher Work Phone: [facility] 03-27-2022 16:03-0500 Systolic blood pressure 99 mm[Hg] MD Jarvis Thrasher Work Phone: [facility] 03-27-2022 15:18-0500 Inhaled oxygen flow rate 8 L/min MD Jarvis Thrasher Work Phone: [facility] 03-27-2022 15:00-0500 Body mass index (BMI) [Ratio] 39.4 kg/m2 MD Jarvis Thrasher Work Phone: [facility] 03-27-2022 14:29-0500 Body height 165.1 cm MD Jarvis Thrasher Work Phone: [facility] 03-27-2022 14:29-0500 Body weight 107.5 kg MD Jarvis Thrasher Work Phone: [facility] 03-27-2022 11:54-0500 Body temperature 98.3 [degF] MD Jarvis Thrasher Work Phone: [facility] 01-08-2022 16:00-0400 Body temperature 97.2 [degF] MD Jarvis Thrasher Work Phone: [facility] 01-08-2022 16:00-0400 Diastolic blood pressure 74 mm[Hg] MD Jarvis Thrasher Work Phone: [facility] 01-08-2022 16:00-0400 Heart rate 60 /min MD Jarvis Thrasher Work Phone: [facility] 01-08-2022 16:00-0400 Respiratory rate 18 /min MD Jarvis Thrasher Work Phone: [facility] 01-08-2022 16:00-0400 SaO2% (BldA) [Mass fraction] 99 % MD Jarvis Thrasher Work Phone: [facility] 01-08-2022 16:00-0400 Systolic blood pressure 120 mm[Hg] MD Jarvis Thrasher Work Phone: [facility] 01-08-2022 05:43-0400 Body weight 114.2 kg MD Jarvis Thrasher Work Phone: [facility] 01-07-2022 11:00-0400 Body height 165.1 cm MD Jarvis Thrasher Work Phone: [facility] 01-06-2022 18:27-0400 Body height 165.1 cm MD Jarvis Thrasher Work Phone: [facility] 01-06-2022 18:27-0400 Body temperature 97.6 [degF] MD Jarvis Thrasher Work Phone: [facility] 01-06-2022 18:27-0400 Body weight 111.5 kg MD Jarvis Thrasher Work Phone: [facility] 01-06-2022 18:27-0400 Diastolic blood pressure 85 mm[Hg] MD Jarvis Thrasher Work Phone: [facility] 01-06-2022 18:27-0400 Heart rate 88 /min MD Jarvis Thrasher Work Phone: [facility] 01-06-2022 18:27-0400 Respiratory rate 20 /min MD Jarvis Thrasher Work Phone: [facility] 01-06-2022 18:27-0400 SaO2% (BldA) [Mass fraction] 95 % MD Jarvis Thrasher Work Phone: [facility] 01-06-2022 18:27-0400 Systolic blood pressure 127 mm[Hg] MD Jarvis Thrasher Work Phone: [facility] 01-06-2022 07:29-0400 Body temperature 97.1 [degF] MD Jarvis Thrasher Work Phone: [facility] 01-06-2022 07:29-0400 Diastolic blood pressure 75 mm[Hg] MD Jarvis Thrasher Work Phone: [facility] 01-06-2022 07:29-0400 Heart rate 101 /min MD Jarvis Thrasher Work Phone: [facility] 01-06-2022 07:29-0400 Respiratory rate 18 /min MD Jarvis Thrasher Work Phone: [facility] 01-06-2022 07:29-0400 SaO2% (BldA) [Mass fraction] 95 % MD Jarvis Thrasher Work Phone: [facility] 01-06-2022 07:29-0400 Systolic blood pressure 114 mm[Hg] MD Jarvis Thrasher Work Phone: [facility] 01-06-2022 06:05-0400 Body height 165.1 cm MD Jarvis Thrasher Work Phone: [facility] 01-06-2022 06:05-0400 Body weight 105.9 kg MD Jarvis Thrasher Work Phone: [facility] 12-30-2021 12:00-0400 Body temperature 98 [degF] MD Jarvis Thrasher Work Phone: [facility] 12-30-2021 12:00-0400 Diastolic blood pressure 83 mm[Hg] MD Jarvis Thrasher Work Phone: [facility] 12-30-2021 12:00-0400 Heart rate 81 /min MD Jarvis Thrasher Work Phone: [facility] 12-30-2021 12:00-0400 Respiratory rate 17 /min MD Jarvis Thrasher Work Phone: [facility] 12-30-2021 12:00-0400 SaO2% (BldA) [Mass fraction] 98 % MD Jarvis Thrasher Work Phone: [facility] 12-30-2021 12:00-0400 Systolic blood pressure 142 mm[Hg] MD Jarvis Thrasher Work Phone: [facility] 12-30-2021 09:08-0400 Body height 165.1 cm MD Jarvis Thrasher Work Phone: [facility] 12-30-2021 06:18-0400 Body weight 117.3 kg MD Jarvis Thrasher Work Phone: [facility] 12-18-2021 08:00-0400 Body temperature 97.4 [degF] MD Jarvis Thrasher Work Phone: [facility] 12-18-2021 08:00-0400 Diastolic blood pressure 98 mm[Hg] MD Jarvis Thrasher Work Phone: [facility] 12-18-2021 08:00-0400 Heart rate 95 /min MD Jarvis Thrasher Work Phone: [facility] 12-18-2021 08:00-0400 Respiratory rate 95 /min MD Jarvis Thrasher Work Phone: [facility] 12-18-2021 08:00-0400 SaO2% (BldA) [Mass fraction] 97 % MD Jarvis Thrasher Work Phone: [facility] 12-18-2021 08:00-0400 Systolic blood pressure 138 mm[Hg] MD Jarvis Thrasher Work Phone: [facility] 12-18-2021 03:34-0400 Body weight 111.6 kg MD Jarvis Thrasher Work Phone: [facility] 12-17-2021 13:41-0400 Body height 165.1 cm MD Jarvis Thrasher Work Phone: [facility] 12-16-2021 18:50-0400 Body temperature 97.2 [degF] MD Jarvis Thrasher Work Phone: [facility] 12-16-2021 18:50-0400 Diastolic blood pressure 92 mm[Hg] MD Jarvis Thrasher Work Phone: [facility] 12-16-2021 18:50-0400 Heart rate 88 /min MD Jarvis Thrasher Work Phone: [facility] 12-16-2021 18:50-0400 Respiratory rate 18 /min MD Jarvis Thrasher Work Phone: [facility] 12-16-2021 18:50-0400 SaO2% (BldA) [Mass fraction] 97 % MD Jarvis Thrasher Work Phone: [facility] 12-16-2021 18:50-0400 Systolic blood pressure 145 mm[Hg] MD Jarvis Thrasher Work Phone: [facility] 12-16-2021 18:11-0400 Body height 165.1 cm MD Jarvis Thrasher Work Phone: [facility] 12-16-2021 18:11-0400 Body mass index (BMI) [Ratio] 40.6 kg/m2 MD Jarvis Thrasher Work Phone: [facility] 12-16-2021 18:11-0400 Body weight 110.6 kg MD Jarvis Thrasher Work Phone: [facility] 12-16-2021 16:29-0400 Inhaled oxygen flow rate 6 L/min MD Jarvis Thrahser Work Phone: [facility] 12-06-2021 11:45-0400 Body temperature 98 [degF] MD Jarvis Thrasher Work Phone: [facility] 12-06-2021 11:45-0400 Diastolic blood pressure 77 mm[Hg] MD Jarvis Thrasher Work Phone: [facility] 12-06-2021 11:45-0400 Heart rate 78 /min MD Jarvis Thrasher Work Phone: [facility] 12-06-2021 11:45-0400 Respiratory rate 18 /min MD Jarvis Thrasher Work Phone: [facility] 12-06-2021 11:45-0400 SaO2% (BldA) [Mass fraction] 97 % MD Jarvis Thrasher Work Phone: [facility] 12-06-2021 11:45-0400 Systolic blood pressure 116 mm[Hg] MD Jarvis Thrasher Work Phone: [facility] 12-06-2021 06:47-0400 Body weight 114.5 kg MD Jarvis Thrasher Work Phone: [facility] 12-04-2021 10:30-0400 Body height 165.1 cm MD Jarvis Thrasher Work Phone: [facility] 11-26-2021 12:15-0400 Body height 165.1 cm Zaid Mon Other [employer] Other 11-26-2021 12:15-0400 Body mass index (BMI) [Ratio] 41.6 kg/m2 Zaid Mon Other [employer] Other 11-26-2021 12:15-0400 Body temperature 97 [degF] Zaid Mon Other [employer] Other 11-26-2021 12:15-0400 Body weight 113.4 kg Zaid Mon Other [employer] Other 11-26-2021 12:15-0400 Diastolic blood pressure 60 mm[Hg] Zaid Duroniva Other [employer] Other 11-26-2021 12:15-0400 SaO2% (BldA) [Mass fraction] 99 % Zaid Mon Other [employer] Other 11-26-2021 12:15-0400 Systolic blood pressure 108 mm[Hg] Zaid Duroniva Other [employer] Other 11-09-2021 10:33-0400 Diastolic blood pressure 87 mm[Hg] MD aJrvis Thrasher Work Phone: [facility] 11-09-2021 10:33-0400 Systolic blood pressure 132 mm[Hg] MD Jarvis Thrasher Work Phone: [facility] 11-09-2021 08:46-0400 Body temperature 97.8 [degF] MD Jarvis Thrasher Work Phone: [facility] 11-09-2021 08:46-0400 Heart rate 70 /min MD Jarvis Thrasher Work Phone: [facility] 11-09-2021 08:46-0400 Respiratory rate 18 /min MD Jarvis Thrasher Work Phone: [facility] 11-09-2021 08:46-0400 SaO2% (BldA) [Mass fraction] 95 % MD Jarvis Thrasher Work Phone: [facility] 11-09-2021 05:47-0400 Body weight 120.8 kg MD Jarvis Thrasher Work Phone: [facility] 11-06-2021 16:00-0400 Inhaled oxygen flow rate 6 L/min MD Jarvis Thrasher Work Phone: [facility] 11-06-2021 15:06-0400 Body height 165.1 cm MD Jarvis Thrasher Work Phone: [facility] 11-06-2021 15:06-0400 Body mass index (BMI) [Ratio] 43 kg/m2 MD Jarvis Thrasher Work Phone: [facility] 11-02-2021 17:00-0400 Diastolic blood pressure 54 mm[Hg] MD Jarvis Thrasher Work Phone: [facility] 11-02-2021 17:00-0400 Heart rate 71 /min MD Jarvis Thrasher Work Phone: [facility] 11-02-2021 17:00-0400 Respiratory rate 20 /min MD Jarvis Thrasher Work Phone: [facility] 11-02-2021 17:00-0400 SaO2% (BldA) [Mass fraction] 96 % MD Jarvis Thrasher Work Phone: [facility] 11-02-2021 17:00-0400 Systolic blood pressure 111 mm[Hg] MD Jarvis Thrasher Work Phone: [facility] 11-02-2021 15:18-0400 Body height 165.1 cm MD Jarvis Thrasher Work Phone: [facility] 11-02-2021 15:18-0400 Body temperature 97.6 [degF] MD Jarvis Thrasher Work Phone: [facility] 11-02-2021 15:18-0400 Body weight 108.86 kg MD Jarvis Thrasher Work Phone: [facility] 10-29-2021 10:45-0400 Body height 165.1 cm Alejandra Middleton Other [employer] Other 10-29-2021 10:45-0400 Body mass index (BMI) [Ratio] 41.6 kg/m2 Alejandra Middleton Other [employer] Other 10-29-2021 10:45-0400 Body temperature 97.6 [degF] Alejandra Middleton Other [employer] Other 10-29-2021 10:45-0400 Body weight 113.4 kg Alejandra Middleton Other [employer] Other 10-29-2021 10:45-0400 Diastolic blood pressure 78 mm[Hg] Alejandra Middleton Other [employer] Other 10-29-2021 10:45-0400 SaO2% (BldA) [Mass fraction] 98 % Alejandra Middleton Other [employer] Other 10-29-2021 10:45-0400 Systolic blood pressure 110 mm[Hg] Alejandra Middleton Other [employer] Other 10-17-2021 11:36-0400 Body temperature 98.1 [degF] MD Jarvis Thrasher Work Phone: [facility] 10-17-2021 11:36-0400 Diastolic blood pressure 83 mm[Hg] MD Jarvis Thrasher Work Phone: [facility] 10-17-2021 11:36-0400 Heart rate 84 /min MD Jarvis Thrasher Work Phone: [facility] 10-17-2021 11:36-0400 Respiratory rate 16 /min MD Jarvis Thrasher Work Phone: [facility] 10-17-2021 11:36-0400 SaO2% (BldA) [Mass fraction] 97 % MD Jarvis Thrasher Work Phone: [facility] 10-17-2021 11:36-0400 Systolic blood pressure 138 mm[Hg] MD Jarvis Thrasher Work Phone: [facility] 10-17-2021 05:36-0400 Body weight 122.9 kg MD Jarvis Thrasher Work Phone: [facility] 10-16-2021 08:00-0400 Inhaled oxygen flow rate 1 L/min MD Jarvis Thrsaher Work Phone: [facility] 10-14-2021 11:30-0400 Body height 165.1 cm MD Jarvis Thrasher Work Phone: [facility] 10-13-2021 09:30-0400 Body mass index (BMI) [Ratio] 41.4 kg/m2 MD Jarvis Thrasher Work Phone: [facility] 10-09-2021 08:00-0400 Body temperature 98 [degF] MD Jarvis Thrasher Work Phone: [facility] 10-09-2021 08:00-0400 Diastolic blood pressure 79 mm[Hg] MD Jarvis Thrasher Work Phone: [facility] 10-09-2021 08:00-0400 Heart rate 90 /min MD Jarvis Thrasher Work Phone: [facility] 10-09-2021 08:00-0400 Respiratory rate 18 /min MD Jarvis Thrasher Work Phone: [facility] 10-09-2021 08:00-0400 SaO2% (BldA) [Mass fraction] 95 % MD Jarvis Thrasher Work Phone: [facility] 10-09-2021 08:00-0400 Systolic blood pressure 110 mm[Hg] MD Jarvis Thrasher Work Phone: [facility] 10-09-2021 03:59-0400 Body weight 122.5 kg MD Jarvis Thrasher Work Phone: [facility] 10-08-2021 15:20-0400 Body height 165.1 cm MD Jarvis Thrasher Work Phone: [facility] 10-07-2021 20:03-0400 Body mass index (BMI) [Ratio] 46.7 kg/m2 MD Jarvis Thrasher Work Phone: [facility] 10-07-2021 19:04-0400 Inhaled oxygen flow rate 6 L/min MD Jarvis Thrasher Work Phone: [facility] 10-01-2021 15:00-0400 Inhaled oxygen concentration 30 % MD Jarvis Thrasher Work Phone: [facility] 09-26-2021 20:14-0400 Body height 165.1 cm MD Jarvis Thrasher Work Phone: [facility] 09-26-2021 20:14-0400 Body mass index (BMI) [Ratio] 41.8 kg/m2 MD Jarvis Thrasher Work Phone: [facility] 09-26-2021 20:14-0400 Body temperature 98.1 [degF] MD Jarvis Thrasher Work Phone: [facility] 09-26-2021 20:14-0400 Body weight 113.9 kg MD Jarvis Thrasher Work Phone: [facility] 09-26-2021 20:14-0400 Diastolic blood pressure 84 mm[Hg] MD Jarvis Thrasher Work Phone: [facility] 09-26-2021 20:14-0400 Heart rate 84 /min MD Jarvis Thrasher Work Phone: [facility] 09-26-2021 20:14-0400 Respiratory rate 18 /min MD Jarvis Thrasher Work Phone: [facility] 09-26-2021 20:14-0400 SaO2% (BldA) [Mass fraction] 95 % MD Jarvis Thrasher Work Phone: [facility] 09-26-2021 20:14-0400 Systolic blood pressure 130 mm[Hg] MD Jarvis Thrasher Work Phone: [facility] 08-21-2021 11:45-0400 Body height Zaid Yaa Other [employer] Other 08-21-2021 11:45-0400 Body mass index (BMI) [Ratio] 41.6 kg/m2 Zaid Mon Other [employer] Other 08-21-2021 11:45-0400 Body temperature 99.4 [degF] Zaid Yaa Other [employer] Other 08-21-2021 11:45-0400 Body weight 113.4 kg Zaid Yaa Other [employer] Other 08-21-2021 11:45-0400 Diastolic blood pressure 82 mm[Hg] Zaid Mon Other [employer] Other 08-21-2021 11:45-0400 Respiratory rate 20 /min Zaid Mon Other [employer] Other 08-21-2021 11:45-0400 SaO2% (BldA) [Mass fraction] 96 % Zaid Mon Other [employer] Other 08-21-2021 11:45-0400 Systolic blood pressure 124 mm[Hg] Zaid Mon Other [employer] Other 07-16-2021 09:30-0400 Body height Zaid Mon Other [employer] Other 07-16-2021 09:30-0400 Body mass index (BMI) [Ratio] 41.6 kg/m2 Zaid Mon Other [employer] Other 07-16-2021 09:30-0400 Body weight 113.4 kg Zaid Yaa Other [employer] Other 07-16-2021 09:30-0400 Diastolic blood pressure 70 mm[Hg] Zaid Mon Other [employer] Other 07-16-2021 09:30-0400 Respiratory rate 20 /min Zaid Yaa Other [employer] Other 07-16-2021 09:30-0400 Systolic blood pressure 132 mm[Hg] Zaid Mon Other [employer] Other 03-06-2021 11:30-0500 Body height Zaid Mon Other [employer] Other 03-06-2021 11:30-0500 Body mass index (BMI) [Ratio] 41.6 kg/m2 Zaid Mon Other [employer] Other 03-06-2021 11:30-0500 Body weight 113.4 kg Zaid Mon Other [employer] Other 03-06-2021 11:30-0500 Diastolic blood pressure 98 mm[Hg] Zaid Mon Other [employer] Other 03-06-2021 11:30-0500 Systolic blood pressure 143 mm[Hg] Zaid Mon Other [employer] Other Encounters Encounter Date Encounter Type Care Provider Facility Start: 02-25-2023 End: 02-25-2023 [facility] Not Available Start: 02-24-2023 End: 02-24-2023 ambulatory KANU MEHTA Not Available Start: 02-19-2023 End: 02-19-2023 ambulatory Kanu Mehta Facility:[facility] Start: 02-19-2023 End: 02-19-2023 Admission to same day surgery center MD Jarvis Thrasher Work Phone: [facility] C[facility]Surgery [facility] [place] Start: 02-19-2023 End: 02-19-2023 ambulatory MD Jarvis Thrasher Work Phone: [facility] Work Phone: Start: 02-17-2023 End: 02-17-2023 ambulatory KANU MEHTA Not Available Start: 02-16-2023 End: 02-16-2023 ambulatory KANU MEHTA Not Available Start: 02-09-2023 End: 02-09-2023 ambulatory Jarvis Thrasher Facility:[facility] Start: 02-09-2023 End: 02-09-2023 Registered Recurring MD Jarvis Thrasher Work Phone: [facility] Ctr-Cancer Center Work Phone: Start: 02-09-2023 End: 02-09-2023 Patient encounter procedure MD Jarvis Thrasher Work Phone: [facility] Ctr-Lab [facility] [place] Work Phone: Start: 02-09-2023 Registered Recurring MD Jarvis Thrasher Work Phone: [facility] Ctr-Cancer Center Work Phone: Start: 02-09-2023 End: 02-09-2023 ambulatory MD Jarvis Thrasher Work Phone: [facility] Work Phone: Start: 02-09-2023 Telephone encounter Zaid Buckner rg [facility] Start: 02-08-2023 End: 02-09-2023 ambulatory JARVIS THRASHER Not Available Start: 01-28-2023 End: 02-02-2023 Evaluation and management of inpatient Jarvis Thrasher Facility:[facility] Start: 01-28-2023 End: 02-02-2023 Evaluation and management of inpatient MD Jarvis Thrasher Work Phone: [facility] Ctr-4 [facility] Work Phone: Start: 01-01-2023 End: 01-01-2023 ambulatory ANTWON LYNNETTESHEFALI Facility:[facility] Start: 01-01-2023 End: 01-01-2023 Patient encounter procedure Antwon Goetz MD Work Phone: Ophthalmology Comment on above: Central retinal vein occlusion, right eye, with macular edema (Primary Dx) Start: 12-09-2022 End: 12-09-2022 ambulatory NON STAFF [facility] edical Ctr Work Phone: Start: 12-09-2022 End: 12-09-2022 Patient encounter procedure TERESA Mehta Work Phone: [facility] Ctr-Ultrasound [facility] Vascular Start: 12-04-2022 End: 12-04-2022 ambulatory ANTWONJese GOETZ Facility:[facility] Start: 12-04-2022 End: 12-04-2022 Patient encounter procedure Antwon Goetz MD Work Phone: Ophthalmology Comment on above: Central retinal vein occlusion, right eye, with macular edema (Primary Dx); Hypertensive retinopathy, bilateral; Type 2 diabetes mellitus without retinopathy (HCC); Pseudophakia Start: 11-11-2022 End: 11-11-2022 ambulatory Alejandra Middleton Other [facility] [employer] Other Start: 11-11-2022 Office outpatient vi sit 15 minutes Alejandra Middleton [facility] Vascular Surgery Start: 11-10-2022 End: 11-10-2022 Emergency department patient visit Jarvis Thrasher Facility:[facility] Start: 11-10-2022 End: 11-10-2022 Emergency department patient visit PHYSICIAN ALAYNA LEDBETTER [facility] Ctr-Emergency Room Work Phone: Start: 10-20-2022 End: 10-20-2022 ambulatory Jarvis Thrasher Facility:[facility] Start: 10-20-2022 End: 10-20-2022 Admission to same day surgery center MD Jarvis Thrasher Work Phone: [facility] [place] Start: 10-20-2022 End: 10-20-2022 ambulatory MD Jarvis Thrasher Work Phone: [facility] Ctr Work Phone: Start: 10-16-2022 End: 10-16-2022 ambulatory Jarvis Thrasher Facility:[facility] Start: 10-16-2022 Encounter for other preprocedural examination Kanu Mehta [facility] Start: 10-16-2022 End: 10-16-2022 ambulatory MD Jarvis Thrasher Work Phone: [facility] Ctr Work Phone: Start: 10-16-2022 End: 10-16-2022 Patient encounter procedure MD Jarvis Thrasher Work Phone: [facility] Ctr[facility]Lab [facility] [place] Work Phone: Start: 10-15-2022 End: 10-15-2022 ambulatory Kanu Mehta Facility:[facility] Start: 10-15-2022 End: 10-15-2022 ambulatory MD Jarvis Thrasher Work Phone: [facility] Ctr Work Phone: Start: 10-15-2022 End: 10-15-2022 Departed Referred MD Jarvis Thrasher Work Phone: [facility] Ctr[facility] [place] Work Phone: Start: 09-30-2022 End: 09-30-2022 ambulatory ANTWON GOETZ Facility:[facility] Start: 08-24-2022 End: 08-24-2022 ambulatory Kanu Mehta Facility:[facility] Start: 08-24-2022 End: 08-24-2022 Admission to same day surgery center MD Jarvis Thrasher Work Phone: [facility]tr[facility]gery [facility] [place] Start: 08-20-2022 End: 08-20-2022 ambulatory Kanu Mehta Facility:[facility] Start: 08-20-2022 End: 08-20-2022 Patient encounter procedure MD Jarvis Thrasher Work Phone: [facility] Work Phone: Start: 08-20-2022 End: 08-20-2022 Departed Referred MD Jarvis Thrasher Work Phone: [facility] Ctr[facility]Lab [facility] [place] Work Phone: Start: 07-30-2022 End: 07-30-2022 ambulatory Jarvis Thrasher Facility:[facility] Start: 07-30-2022 End: 07-30-2022 Patient encounter procedure MD Jarvis Thrasher Work Phone: [facility] Ctr-Ultrasound [facility] Vascular Start: 07-10-2022 End: 07-10-2022 ambulatory Kanu Mehta Facility:[facility] Start: 07-10-2022 End: 07-10-2022 Admission to same day surgery center MD Jarvis Thrasher Work Phone: [facility] Ctr-Surgery [facility] [place] Start: 07-10-2022 End: 07-10-2022 ambulatory MD Jarvis Thrasher Work Phone: [facility] Ctr Work Phone: Start: 07-07-2022 End: 07-07-2022 ambulatory Kanu Mehta Facility:[facility] Start: 07-07-2022 End: 07-07-2022 ambulatory MD Jarvis Thrasher Work Phone: [facility] Ctr Work Phone: Start: 07-07-2022 End: 07-07-2022 Patient encounter procedure MD Jarvis Thrasher Work Phone: [facility] Ctr-Electrodiagnostics Work Phone: Start: 07-01-2022 End: 07-01-2022 ambulatory Kanu Mehta Facility:[facility] Start: 07-01-2022 End: 07-01-2022 Departed Referred MD Jarvis Thrasher Work Phone: [facility] Ctr[facility]Lab [place] Work Phone: Start: 04-30-2022 Office outpatient vi sit 15 minutes Zaid Mon [facility] Vascular Surgery Start: 04-30-2022 End: 04-30-2022 ambulatory Jarvis Thrasher Facility:[facility] Start: 04-30-2022 End: 04-30-2022 ambulatory MD Jarvis Thrasher Work Phone: [facility] Ctr Work Phone: Start: 04-30-2022 End: 04-30-2022 Patient encounter procedure MD Jarvis Thrasher Work Phone: [facility] Ctr-Ultrasound [facility] Vascular Start: 03-27-2022 End: 03-27-2022 ambulatory Kanu Mehta Facility:[facility] Start: 03-27-2022 End: 03-27-2022 Admission to same day surgery center MD Jarvis Thrasher Work Phone: [facility] Ctr[facility]Surgery [facility] [place] Start: 03-27-2022 End: 03-27-2022 ambulatory MD Jarvis Thrasher Work Phone: [facility] Ctr Work Phone: Start: 03-25-2022 End: 03-25-2022 ambulatory Kanu Mehta Facility:[facility] Start: 03-25-2022 End: 03-25-2022 ambulatory MD Jarvis Thrasher Work Phone: [facility] Ctr Work Phone: Start: 03-25-2022 End: 03-25-2022 Patient encounter procedure MD Jarvis Thrasher Work Phone: [facility] Ctr[facility]Lab [place] Work Phone: Start: 02-19-2022 End: 02-19-2022 ambulatory Zaid Mon Other [facility] [employer] Other Start: 02-19-2022 Telephone encounter Zaid Buckner [facility] Start: 02-02-2022 End: 02-02-2022 ambulatory MD Jarvis Thrasher Work Phone: [facility] Ctr Work Phone: Start: 02-02-2022 End: 02-02-2022 Patient encounter procedure MD Jarvis Thrasher Work Phone: [facility] Ctr-Lab [place] Work Phone: Start: 02-02-2022 End: 02-02-2022 MD Jarvis Thrasher Work Phone: [facility] Ctr[facility]Lab [facility] [place] Start: 01-06-2022 End: 01-08-2022 Evaluation and management of inpatient MD Jarvis Thrasher Work Phone: [facility] Ctr-4 [facility] Work Phone: Start: 01-06-2022 End: 01-08-2022 MD Jarvis Thrasher Work Phone: [facility] Ctr-4 [facility] Start: 01-06-2022 End: 01-06-2022 ambulatory MD Jarvis Thrasher Work Phone: [facility] Ctr Work Phone: Start: 01-06-2022 End: 01-06-2022 Departed Referred MD Jarvis Thrasher Work Phone: [facility] Ctr[facility]Lab [place] Work Phone: Start: 01-06-2022 End: 01-06-2022 MD Jarvis Thrasher Work Phone: [facility] Ctr-Lab [place] Start: 01-06-2022 End: 01-06-2022 Emergency department patient visit MD Jarvis Thrasher Work Phone: [facility] Ctr-Emergency Room Work Phone: Start: 01-06-2022 End: 01-06-2022 MD Jarvis Thrasher Work Phone: [facility] Ctr-Emergency Room Start: 12-26-2021 End: 12-30-2021 Evaluation and management of inpatient MD Jarvis Thrasher Work Phone: [facility] Ctr Work Phone: Start: 12-26-2021 End: 12-30-2021 MD Jarvis Thrasher Work Phone: [facility] Ctr-3 [place] [facility] Start: 12-23-2021 End: 12-23-2021 MD Jarvis Thrasher Work Phone: [facility] Ctr-Ultrasound [place] Start: 12-17-2021 End: 12-17-2021 ambulatory Javed Snyder Other [facility] [employer] Other Start: 12-17-2021 Patient encounter procedure Javed Snyder [facility] Start: 12-16-2021 End: 12-18-2021 Evaluation and management of inpatient MD Jarvis Thrasher Work Phone: [facility] Ctr Work Phone: Start: 12-16-2021 End: 12-18-2021 MD Jarvis Thrasher Work Phone: [facility] Ctr-4 [facility] Start: 12-16-2021 End: 12-16-2021 ambulatory MD Jarvis Thrasher Work Phone: [facility] Ctr Work Phone: Start: 12-16-2021 End: 12-16-2021 MD Jarvis Thrasher Work Phone: [facility] Ctr-MRI [address] Start: 12-09-2021 End: 12-09-2021 ambulatory MD Jarvis Thrasher Work Phone: [facility] Ctr Work Phone: Start: 12-09-2021 End: 12-09-2021 Patient encounter procedure MD Jarvis Thrasher Work Phone: [facility] Xck-Eke-Wwfiybvi Testing Start: 12-09-2021 End: 12-09-2021 MD Jarvis Thrasher Work Phone: [facility]-Pre-Surgical Testing Start: 12-03-2021 End: 12-06-2021 Evaluation and management of inpatient MD Jarvis Thrasher Work Phone: [facility]-4 [place] [facility] Start: 12-03-2021 End: 12-06-2021 MD Jarvis Thrasher Work Phone: [facility] [place] [facility] Start: 12-03-2021 End: 12-03-2021 ambulatory Zaid Mon Other [employer] Other Start: 12-03-2021 Telephone encounter Zaid westbrook [facility] Start: 11-26-2021 End: 11-26-2021 ambulatory Zaid Mon Other [employer] Other Start: 11-26-2021 Office outpatient vi sit 15 minutes Zaid Mon [facility] Start: 11-04-2021 End: 11-09-2021 Evaluation and management of inpatient MD Jarvis Thrasher Work Phone: [facility] [place] [facility] Start: 11-04-2021 End: 11-09-2021 MD Jarvsi Thrasher Work Phone: [facility] [place] [facility] Start: 11-03-2021 End: 11-03-2021 ambulatory Zaid Mon Other [employer] Other Start: 11-03-2021 Telephone encounter Zaid westbrook [facility] Start: 11-02-2021 End: 11-02-2021 Emergency department patient visit MD Jarvis Thrasher Work Phone: [facility] Ctr-Emergency Room Start: 11-02-2021 End: 11-02-2021 MD Jarvis Thrasher Work Phone: [facility]-Emergency Room Start: 10-29-2021 End: 10-29-2021 ambulatory Alejandra Middleton Other [employer] Other Start: 10-29-2021 Follow-up encounter Alejandra Crabtree [facility] Start: 10-13-2021 End: 10-17-2021 Evaluation and management of inpatient MD Jarvis Thrasher Work Phone: [facility] Ctr-4 [place] [facility] Start: 10-13-2021 End: 10-17-2021 MD Jarvis Thrasher Work Phone: [facility] Ctr-4 [place] [facility] Start: 10-10-2021 End: 10-10-2021 Patient encounter procedure MD Jarvis Thrasher Work Phone: [facility] Baj-Ims-Rjwxvnth Testing Start: 10-10-2021 End: 10-10-2021 MD Jarvis Thrasher Work Phone: [facility] Jgf-Ivi-Lezcrlxx Testing Start: 09-27-2021 End: 10-09-2021 Evaluation and management of inpatient MD Jarvis Thrasher Work Phone: [facility] Ctr-4 [place] [facility] Start: 09-27-2021 End: 10-09-2021 MD Jarvis Thrasher Work Phone: [facility] Ctr-4 [place] [facility] Start: 09-26-2021 End: 09-26-2021 Emergency department patient visit MD Jarvis Thrasher Work Phone: [facility] Ctr-Emergency Room Start: 09-26-2021 End: 09-26-2021 MD Jarvis Thrasher Work Phone: [facility] Ctr-Emergency Room Start: 09-26-2021 End: 09-26-2021 Emergency department patient visit MD Jarvis Thrasher Work Phone: [facility] Ctr-Emergency Room Start: 09-26-2021 End: 09-26-2021 MD Jarvis Thrasher Work Phone: [facility] Ctr-Emergency Room Start: 09-25-2021 End: 09-25-2021 ambulatory Zaid Mon Other [employer] Other Start: 09-25-2021 Encounter for other preprocedural examination Zaid Mon [facility] Start: 09-25-2021 Telephone encounter Zaid westbrook [facility] Start: 09-18-2021 End: 09-18-2021 ambulatory Zaid Mon Other [employer] Other Start: 09-18-2021 Telephone encounter Zaid westbrook [facility] Start: 09-11-2021 End: 09-11-2021 Patient encounter procedure MD Jarvis Thrasher Work Phone: [facility] Ctr-Lab [facility] [place] Start: 08-27-2021 End: 08-27-2021 Patient encounter procedure Kilo Shaw DPM Work Phone: Orthopaedics Comment on above: 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); Amputation of toe of left foot (HCC); DM (diabetes mellitus), type 2 with peripheral vascular complications (HCC) Start: 08-21-2021 End: 08-21-2021 ambulatory Zaid Mon Other [employer] Other Start: 08-21-2021 Office outpatient visit 15 minutes Zaid Mon [facility] Start: 07-16-2021 End: 07-16-2021 ambulatory Zaid Mon Other [employer] Other Start: 07-16-2021 Office outpatient visit 25 minutes Zaid Mon [facility] Start: 03-06-2021 End: 03-06-2021 ambulatory Zaid Mon Other [employer] Other Start: 03-06-2021 Office outpatient visit 40 minutes Zaid Duroniva [facility] Start: 03-14-2019 End: 03-14-2019 Patient encounter procedure MATILDE LOYOLA Facility:[facility] Procedures Date Procedure Procedure Detail Performing Clinician Start: 02-19-2023 Debridement MD Jarvis Thrasher Work Phone: Start: 02-01-2023 Amputation of toe MD Mercedes Thrasher Work Phone: Start: 02-01-2023 Aerobic microbial culture MD Jarvis Thrasher Work Phone: Start: 02-01-2023 Anaerobic microbial culture MD Jarvis Thrasher Work Phone: Start: 02-01-2023 Investigation of tra nsfusion reaction MD Jarvis Thrasher Work Phone: Start: 02-01-2023 Insertion of periphe rally inserted central catheter MD Jarvis Thrasher Work Phone: Start: 01-30-2023 MRI of left foot wit h contrast MD Jarvis Thrasher Work Phone: Start: 01-29-2023 Lower limb angiography MD Jarvis Thrasher Work Phone: Start: 01-28-2023 X-ray of left foot MD Becky Thrasher Work Phone: Start: 01-28-2023 Blood culture for ba cteria, including anaerobic screen MD Jarvis Thrasher Work Phone: Start: 01-01-2023 Intravitreal njx pharmacologic agt spx Antwon Goetz MD Work Phone: Start: 01-01-2023 Computerized ophthal ismael imaging retina Antwon Goezt MD Work Phone: Start: 12-04-2022 Computerized ophthal ismael imaging retina Antwon Goetz MD Work Phone: Start: 12-04-2022 Intravitreal njx pharmacologic agt spx Antwon Goetz MD Work Phone: Start: 11-10-2022 Duplex scan of lower limb veins DPM Kanu Mehta Work Phone: Start: 10-20-2022 Debridement MD Jarvis Thrasher Work Phone: Start: 10-15-2022 Aerobic microbial culture MD Jarvis Thrasher Work Phone: Start: 08-24-2022 Debridement MD Jarvis Thrasher Work Phone: Start: 08-20-2022 Aerobic microbial culture MD Jarvis Thrasher Work Phone: Start: 08-20-2022 Anaerobic microbial culture MD Jarvis Thrasher Work Phone: Start: 08-20-2022 Investigation of tra nsfusion reaction MD Jarvis Thrasher Work Phone: Start: 07-30-2022 Ankle brachial press ure index MD Jarvis Thrasher Work Phone: Start: 07-30-2022 Duplex scan of lower limb arteries MD Jarvis Thrasher Work Phone: Start: 07-10-2022 Debridement MD Jarvis Thrasher Work Phone: Start: 07-01-2022 Aerobic microbial culture MD Jarvis Thrasher Work Phone: Start: 04-30-2022 Duplex scan of lower limb arteries MD Jarvis Thrasher Work Phone: Start: 04-30-2022 Ankle brachial press ure index MD Jarvis Thrasher Work Phone: Start: 03-27-2022 Debridement MD Jarvis Thrasher Work Phone: Start: 01-06-2022 Aerobic microbial culture MD Jarvis Thrasher Work Phone: Start: 01-06-2022 X-ray of left foot MD Becky Thrasher Work Phone: Start: 12-29-2021 MRI of left foot MD Alen Thrasher Work Phone: Start: 12-26-2021 X-ray of left foot MD Becky Thrasher Work Phone: Start: 12-26-2021 Aerobic microbial culture MD Jarvis Thrasher Work Phone: Start: 12-26-2021 Blood culture for ba cteria, including anaerobic screen MD Jarvis Thrasher Work Phone: Start: 12-26-2021 SARS-CoV-2, Influenz a & RSV (PCR) MD Jarvis Thrasher Work Phone: Start: 12-23-2021 Doppler ultrasonogra phy of bilateral carotid arteries MD Jarvis Thrasher Work Phone: Start: 12-16-2021 MD Jarvis Thrasher Work Phone: Start: 12-16-2021 MRI of left foot MD Alen Thrasher Work Phone: Start: 12-04-2021 Ultrasonography of limb MD Jarvis Thrasher Work Phone: Start: 12-03-2021 Plain X-ray of left tibia and left fibula MD Jarvis Thrasher Work Phone: Start: 11-07-2021 OR Wound Debridement/I&D/Hydradenitis (Left) MD Jarvis Thrasher Work Phone: Start: 11-07-2021 MD Jarvis Thrasher Work Phone: Start: 11-06-2021 OR Wound Debridement/I&D/Hydradenitis (Left) MD Jarvis Thrasher Work Phone: Start: 11-06-2021 MD Jarvis Thrasher Work Phone: Start: 10-01-2021 Ultrasound periphera l vascular flow study MD Jarvis Thrasher Work Phone: Start: 09-30-2021 CT of abdomen and pe lvis without contrast MD Jarvis Thrasher Work Phone: Start: 09-27-2021 X-ray of left foot MD Becky Thrasher Work Phone: Start: 10-31-2020 Mammography Milan ALEMAN Work Phone: Aerobic microbial culture MD Jarvis Thrasher Work Phone: Aerobic microbial culture MD Jarvis Thrasher Work Phone: Aerobic microbial culture MD Jarvis Thrasher Work Phone: Aerobic microbial culture MD Jarvis Thrasher Work Phone: Aerobic microbial culture MD Jarvis Thrasher Work Phone: Anaerobic microbial culture MD Jarvis Thrasher Work Phone: Anaerobic microbial culture MD Jarvis Thrasher Work Phone: Blood culture for ba cteria, including anaerobic screen MD Jarvis Thrasher Work Phone: Blood culture for ba cteria, including anaerobic screen MD Jarvis Thrasher Work Phone: Blood culture for ba cteria, including anaerobic screen MD Jarvis Thrasher Work Phone: Blood culture for ba cteria, including anaerobic screen MD Jarvis Thrasher Work Phone: Blood culture for ba cteria, including anaerobic screen MD Jarvis Thrasher Work Phone: Investigation of tra nsfusion reaction MD Jarvis Thrasher Work Phone: Investigation of tra nsfusion reaction MD Jarvis Thrasher Work Phone: SARS Antigen (LFIA) MD Darrin Thrasher Work Phone: SARS Antigen (LFIA) MD Darrin Thrasher Work Phone: SARS Antigen (LFIA) MD Darrin Thrasher Work Phone: SARS Antigen (LFIA) MD Darrin Thrasher Work Phone: SARS-CoV-2, Influenz a & RSV (PCR) MD Jarvis Thrasher Work Phone: MD Jarvis Thrasher Work Phone: MD Jarvis Thrasher Work Phone: MD Jarvis Thrasher Work Phone: MD Jarvis Thrasher Work Phone: Plan of Treatment Date Care Activity Detail Author Start: 11-25-2025 Diabetes Screening Diabetes Screenmichelle ramos [facility] Start: 04-29-2024 DIABETES SCREEN DIABETES SCREEN [facility] Start: 01-16-2024 End: 06-24-2024 OCT MACULA CIRRUS OU (BOTH EYES) OCT MACULA CIRRUS OU (BOTH EYES) OPHT Imaging Routine Central retinal vein occlusion, right eye, with macular edema Expected: 01/16/2024, Expires: 06/24/2024 [facility] Work Phone: Comment on above: Expected: 01/16/2024 , Expires: 06/24/2024 Start: 12-19-2023 End: 05-27-2024 OCT MACULA CIRRUS OU (BOTH EYES) OCT MACULA CIRRUS OU (BOTH EYES) OPHT Imaging Routine Central retinal vein occlusion, right eye, with macular edema Hypertensive retinopathy, bilateral Type 2 diabetes mellitus without retinopathy (HCC) Pseudophakia Expected: 12/19/2023, Expires: 05/27/2024 [facility] Work Phone: Comment on above: Expected: 12/19/2023 , Expires: 05/27/2024 Start: 02-19-2023 End: 02-19-2023 [facility] Start: 02-07-2023 [facility] Start: 02-06-2023 [facility] Start: 02-05-2023 [facility] Start: 02-04-2023 [facility] Start: 02-03-2023 [facility] Start: 02-02-2023 Blood chemistry [facility] Start: 02-02-2023 End: 02-02-2023 [facility] Start: 02-01-2023 Aerobic microbial culture Aerobic Culture [facility] Start: 02-01-2023 Anaerobic microbial culture Anaerobic Culture [facility] Start: 02-01-2023 Blood chemistry [facility] Start: 02-01-2023 End: 02-01-2023 [facility] Start: 01-31-2023 Blood chemistry [facility] Start: 01-31-2023 [facility] Start: 01-30-2023 Blood chemistry [facility] Start: 01-30-2023 End: 01-30-2023 [facility] Start: 01-29-2023 Blood chemistry [facility] Start: 01-29-2023 [facility] Start: 01-28-2023 Referral to vascular surgeon [facility] Start: 01-28-2023 MRI of left foot wit h contrast MR foot LT wo/w con [facility] Start: 01-28-2023 Hospital admission [facility] Start: 01-28-2023 Physical therapy procedure [facility] Start: 01-28-2023 Referral to infectio us diseases physician [facility] Start: 01-28-2023 Referral to occupati onal therapist [facility] Start: 01-28-2023 Referral to motor polarizer [facility] Start: 01-28-2023 [facility] Start: 01-28-2023 Bacteria identified in Blood by Culture Blood Culture [facility] Start: 01-28-2023 Dilation of Left Anterior Tibial Artery, Percutaneous Approach Dilation of Left Anterior Tibial Artery, Percutaneous Approach [facility] Start: 01-28-2023 Extraction of Left F oot Skin, External Approach Extraction of Left Foot Skin, External Approach [facility] Start: 01-28-2023 Insertion of Infusio n Device into Upper Vein, Percutaneous Approach Insertion of Infusion Device into Upper Vein, Percutaneous Approach [facility] Start: 01-28-2023 Plain Radiography of Aorta and Bilateral Lower Extremity Arteries using Low Osmolar Contrast Plain Radiography of Aorta and Bilateral Lower Extremity Arteries using Low Osmolar Contrast [facility] Start: 11-13-2022 Covid-19 Vaccine () Covid-19 Vaccine () [facility] Start: 11-10-2022 Duplex scan of lower limb veins US venous duplex LE LT [facility] Start: 11-10-2022 US Lower extremity v ein - left [facility] Start: 10-20-2022 End: 10-20-2022 [facility] Start: 10-15-2022 Aerobic microbial culture Superficial Wound Culture [facility] Start: 10-15-2022 Superficial Wound Culture Superficial Wound Culture [facility] Start: 08-24-2022 End: 08-24-2022 [facility] Start: 07-10-2022 End: 07-10-2022 [facility] Start: 03-27-2022 End: 03-27-2022 [facility] Start: 03-15-2022 Depression Assessment Depression Ass essment [facility] Start: 01-08-2022 [facility] Start: 01-06-2022 [facility] Start: 01-06-2022 Referral to vascular surgeon [facility] Start: 01-06-2022 Referral to clinical chief controller station [facility] Start: 01-06-2022 Referral to palliati ve care physician [facility] Start: 12-30-2021 [facility] Start: 12-27-2021 Referral to vascular surgeon [facility] Start: 12-26-2021 Referral to infectio us diseases physician [facility] Start: 12-26-2021 Referral to motor polarizer [facility] Start: 12-26-2021 Hospital admission [facility] Start: 12-22-2021 [facility] Start: 12-18-2021 [facility] Start: 12-17-2021 Referral to paint maker [facility] Start: 12-16-2021 Drainage of Left Tyron t Skin, External Approach [facility] Start: 12-16-2021 Excision of Left Tyron t, Open Approach [facility] Start: 12-16-2021 Excision of Right Fo ot, Open Approach [facility] Start: 12-16-2021 Referral to clinical chief controller station [facility] Start: 12-06-2021 [facility] Start: 12-05-2021 OR Wound Debridement/I&D/Hydraden itis (Left) OR Wound Debridement/I&D/Hydraden itis (Left) [facility] Start: 12-03-2021 Referral to vascular surgeon [facility] Start: 12-03-2021 Referral to infectio us diseases physician [facility] Start: 12-03-2021 Hospital admission [facility] Start: 11-09-2021 [facility] Start: 11-07-2021 OR Wound Debridement/I&D/Hydraden itis (Left) OR Wound Debridement/I&D/Hydraden itis (Left) [facility] Start: 11-06-2021 OR Wound Debridement/I&D/Hydraden itis (Left) OR Wound Debridement/I&D/Hydraden itis (Left) [facility] Start: 11-05-2021 Referral to Applications Systems Analyst [facility] Start: 11-04-2021 [facility] Start: 11-04-2021 Referral to vascular surgeon [facility] Start: 11-04-2021 Hospital admission [facility] Start: 11-04-2021 End: 08-28-2022 Evaluation and management of inpatient Infection [facility] Start: 11-02-2021 End: 11-02-2021 Emergency department patient visit Departed Emergency [facility] Start: 10-31-2021 Mammography [facility] Start: 10-17-2021 [facility] Start: 10-13-2021 Bypass Left Peroneal Artery to Lower Extremity Artery with Autologous Venous Tissue, Open Approach [facility] Start: 10-13-2021 Excision of Left Saphenous Vein, Open Approach [facility] Start: 10-13-2021 Referral to clinical chief controller station [facility] Start: 10-13-2021 End: 10-17-2021 Evaluation and management of inpatient Chronic ulcer of left foot due to diabetes mellitus [facility] Start: 10-09-2021 [facility] Start: 10-07-2021 [facility] Start: 10-01-2021 Evaluation procedure [facility] Start: 09-27-2021 Hospital admission [facility] Start: 09-27-2021 Referral to motor polarizer [facility] Start: 09-27-2021 Referral to vascular surgeon [facility] Start: 09-27-2021 Detachment at Left 2 nd Toe, Complete, Open Approach [facility] Start: 09-27-2021 Dilation of Left Tyron t Artery, Percutaneous Approach [facility] Start: 09-27-2021 Excision of Left Tyron t Subcutaneous Tissue and Fascia, Open Approach [facility] Start: 09-27-2021 Excision of Right Fo ot Subcutaneous Tissue and Fascia, Open Approach [facility] Start: 09-27-2021 Excision of Toe Nail , External Approach [facility] Start: 09-27-2021 Fluoroscopy of Left Lower Extremity Arteries using Low Osmolar Contrast [facility] Start: 09-27-2021 Insertion of Intraluminal Device into Left External Iliac Artery, Percutaneous Approach [facility] Start: 09-27-2021 Removal of Intralumi nal Device from Lower Artery, Percutaneous Approach [facility] Start: 09-27-2021 Respiratory Ventilat ion, Less than 24 Consecutive Hours [facility] Start: 11-10-2020 COVID-19 VACCINE (3 - Booster for Pfizer series) COVID-19 VACCINE (3 - Booster for Pfizer series) [facility] Start: 01-28-2016 SHINGRIX VACCINE (1 of 2) SHINGRIX VACCINE (1 of 2) [facility] Start: 2011 COLOGUARD (FIT-DNA) COLOGUARD (FIT-D NA) [facility] Start: 2011 Colonoscopy COLONOSCOPY [facility] Start: 2011 COLORECTAL CANCER SCREENING COLORECTAL CANCER SCREENING [facility] Start: [address] COLONOGRAPHY [facility] Start: 2011 FECAL OCCULT BLOOD FECAL OCCULT BLOO D [facility] Start: 2011 Lipid 1996 panel - S jamshid or Plasma Lipid Screening [facility] Start: 2011 LIPID SCREEN LIPID SCREEN [facility] Start: 2011 SIGMOIDOSCOPY SIGMOIDOSCOPY [facility] Start: 01-28-1996 HPV TESTING HPV TESTING [facility] Start: 08-18-1991 Hepatitis B Vaccine (3 of 3 - 19+ 3-dose series) Hepatitis B Vaccine (3 of 3 - 19+ 3-dose series) [facility] Start: 1987 PAP TESTING PAP TESTING [facility] Start: 1985 Urine microalbumin profile [facility] Start: 01-28-1984 HEPATITIS C SCREENING HEPATITIS C SC REENING [facility] Start: 01-28-1984 HIV SCREENING HIV SCREENING [facility] Start: 1978 Adult depression screening assessment [facility] Start: 1966 Hepatitis B Vaccine (1 of 3 - 3-dose series) Hepatitis B Vaccine (1 of 3 - 3-dose series) [facility] Blood culture for bacteria, including anaerobic screen Blood Culture [facility] Blood culture for bacteria, including anaerobic screen [facility] Patient Education [facility] Work Phone: Patient referral [facility] Work Phone: [facility] Immunizations Immunization Date Immunization Notes Care Provider Fa stiven 07-05-2021 COVID-19 mRNA Comirnatnila (Pfizer) MD Jarvis Thrasher Work Phone: [facility] 12-07-2020 COVID-19 mRNAIsrael (Pfizer) MD Jarvis Thrasher Work Phone: [facility] 06-11-2020 COVID-19 mRNAIsrael (Pfizer) MD Jarvis Thrsaher Work Phone: [facility] 05-21-2020 COVID-19 mRNAIsrael (Pfizer) MD Jarvis Thrasher Work Phone: [facility] 02-23-2018 Influenza, injectable, Madin [place] Canine Kidney, quadrivalent with preservative Zaid Mon Other [employer] Other 12-22-2016 influenza, injectable, quadrivalent, preservative free MD Jarvis Thrasher Work Phone: [facility] Payers Date Payer Category Payer Medicare [facility] MEDICARE [facility] DUAL COMPLETE HMO POS SNP [id number] 2022-Present [phone] [address] [place] [address] Medicare [id number] 2022 Private Health Insurance [id number] 2021 Medicare DEVOTED MEDICARE [facility]LY [facility] [id number] 2021-Present [phone] [address] [place] [address] HMO [id number] 2018 Medicaid [id number] 2018 Medicaid MEDICAID [facility] MEDICAID [id number] 2018-Present [phone] [address] [place] [address] Medicaid [id number] 1966 Unknown [id number] 1966 Unknown [id number] 1966 Unknown [id number] 1966 Unknown [id number] 1966 Unknown [id number] 1966 Unknown [id number] 259 1959 Medicare [id number] Medicaid [id number] Private Health Insurance [id number] Private Health Insurance [id number] Self-pay [id number] Unknown [id number] Unknown [id number] Unknown [id number] Social History Date Type Detail Facility Tobacco smoking status NDIS Tobacco smoking consumption unknown [facility] [employer] Other Start: 1965 Sex Assigned At Not on file [facility] Start: 08-11-2021 End: 08-21-2021 Exposure to SARS-CoV-2 (event) Not sure [facility] Start: 09-30-2022 End: 12-04-2022 Sex Assigned At [facility] [employer] Other Start: 11-06-2021 End: 02-19-2023 Tobacco smoking status NHIS Ex-smoker (finding) [facility] Start: 1965 Sex Assigned At Female F [facility] Start: 11-10-2022 Tobacco smoking status NHIS Never smoked tobacco (finding) [facility] History of tobacco use Current smoker [facility] Work Phone: History of tobacco use Cigarette Smoker [facility] Work Phone: Start: 09-30-2022 Tobacco use and exposure Smokeless tobacco non-user [facility] Work Phone: Start: 09-30-2022 End: 12-04-2022 History of Social function [facility] National Score (1-100), lower number is lower risk 94 [facility] Medical Equipment Procedure Code Equipment Code Equipment Origin al Text Equipment Identifier Dates Wound debridement Collagen wound matrix dressing [id number] FDA Start: 08-24-2022 Wound debridement Collagen wound matrix dressing ()[id number] FDA Start: 08-24-2022 [place] 32G X 5 MM Start: 08-18-2017 ()[id number] FDA Start: 04-09-2021 ()[id number] FDA Start: 04-09-2021 Goals Date Patient Goal Desired Activity /State Functional Status Date Assessment Result Facility 02-02-2023 Functional status Patient at [facility] Work Phone: 01-08-2022 Functional status Patient at [facility] Work Phone: 01-06-2022 Functional status Patient at [facility] Work Phone: 12-30-2021 Functional status Patient at [facility] Work Phone: 12-18-2021 Functional status Patient at [facility] Work Phone: 12-16-2021 Functional status Patient at [facility] Work Phone: 12-06-2021 Functional status Patient at [facility] Work Phone: 11-09-2021 Functional status Patient is Pro gressing Toward Baseline [facility] Work Phone: 10-17-2021 Functional status Patient at [facility] Work Phone: 10-09-2021 Functional status Patient at [facility] Work Phone: Mental Status Date Assessment Result Facility 02-02-2023 Cognitive function Cognitive Sta tus Patient at Baseline [facility] Work Phone: 01-08-2022 Cognitive function Patient at Baseline [facility] Work Phone: 01-06-2022 Cognitive function Patient at Baseline [facility] Work Phone: 12-30-2021 Cognitive function Patient at Baseline [facility] Work Phone: 12-18-2021 Cognitive function Patient at Baseline [facility] Work Phone: 12-16-2021 Cognitive function Patient at Baseline [facility] Work Phone: 12-06-2021 Cognitive function Patient at Baseline [facility] Work Phone: 11-09-2021 Cognitive function Patient at Baseline [facility] Work Phone: 10-17-2021 Cognitive function Patient at Baseline [facility] Work Phone: 10-09-2021 Cognitive function Patient at Baseline [facility] Work Phone: Clinical Notes 2019 to 02-09-2023 Note Date & Type Note Facility 02-09-2023 Evaluation note Encounter Date Diagnosis Assessment Notes Jan, Infection of left foot (ICD-10 - L08.9) [facility] Other 11-21-2023 Progress note Author CWSacha wallis [facility] February 02, 2023 12:41pm Note Date/Time February 02, 2023 12:41pm [facility] [address] [place] [address] Podiatry Progress Note Signed Patient: Ema Neff MR#: [id number] : 1965 Acct:[id number] Age/Sex: 58 / F Adm Date: 3 Loc: 4N Room: [address] [place] [address] Type: ADM IN Attending Dr: Ryland Liu MD Copies to: ~ Subjective Subjective Date of Service: Date of Service: 02/02/2023 Time of Service: 12:33 Narrative: Ms. Neff is a 58 year old female who is typically followed by my partner Dr. Mehta. She has recently undergone second left toe amputation and he continues to follow for wounds at the amputation site. Patient recently dropped her cell phone on the third left toe which caused a wound which subsequently turned blackover the past week. Patient has history of peripheral arterial disease with history of previous vascular intervention, diabetes with peripheral neuropathy and history of chronic ulcerations of both feet. She has history of chronic pain associated with her back which apparently has made pain control in the lower extremities difficult at times. The patient's peripheral arterial diseaseis also fairly severe and unfortunately no further intervention is available. Ischemia is likely contributing to her lower extremity pain as well. She deniesany fever or chills. Patient reports that pain has been under control with painmedication and she feels as though she is slowly continuing to improve relative to her pain upon admission. Exam Physical Exam Vital Signs: Temp Pulse Resp BP Pulse Ox O2 Del Method O2 Flow Rate 97.6 F 78 16 127/88 95 Room Air 8 02/02/23 12:00 02/02/23 12:00 02/02/23 12:00 02/02/23 12:00 02/02/23 12:00 02/02/23 12:00 02/01/23 18:47 Narrative: General: Patient is seen at bedside and is awake and wearing in no acute distress. Vascular: DP pulse trace and PT pulses 0/4 and temperature gradient is warm to cool.? No significant edema noted today. Dr. Mon has performed vascular intervention in the form of angiogram today she continues to demonstrate significant peripheral arterial disease in the left lower extremity. Unfortunately there are no further vascular intervention that could be performedto improve her circulation. Neurological: Absent vibratory sensation at the first MP joint bilaterally.? Decreased light touch sensation distal to the midfoot bilaterally Dermatological: Skin is thinning with diminished hair growth bilaterally.? No hyperkeratotic lesions are noted.? Patient has history of second toe amputationsbilaterally.? Ulcerations are noted as described below Musculoskeletal: +5/5 muscle strength bilaterally, mild hammertoe deformities noted bilaterally Podiatric: Ulcerated lesions are noted on the left foot. Dry gangrenous lesion on the distal lateral third left toe. This lesion measures 2.5 x 1.0 cm in diameter and is superficial. There does not appear to be any significant drainage. No sinus tract or undermining noted. Amputation site of the second left toe demonstrates an ulcer 1.2 x 1.2 cm in diameter and 0.2 cm in depth.? The base of this wound is mixed granular and fibrotic.? No sinus track or undermining noted here.? All wounds demonstrate local erythema surrounding the lesions. Lesions are also very tender to the touch and no debridement can be performed due to the sensitivity. Culture and sensitivity preliminary report pulmonary report indicates light growth of corynebacterium striatum. Intraoperative cultures are pending x-rays did not reveal obvious erosive changes suggestive of osteomyelitis. MRI study was completed and was somewhat compromised by motion artifact. No abscesses were noted and no bone marrow edema was noted within the underlying osseous structures of her wounds. No destructive changes noted. Assessment/Plan (1) Dry gangrene: Assessment/Problem Details: Completed examination. Discussed treatment options with the patient at length. Dr. Mon was present for my visit with the patient today. Her lower extremity bypass is occluded and there are unfortunately no other vascular interventions available for limb salvage. Due to the severity of her left lower extremity arterial disease, prolonged wound care without improvement and significant pain in the left lower extremity he has recommended BKA amputation left. We discussed the patient's condition at length together and she is considering proceeding with that in the very near future on an outpatient basis. At this point we will continue with local wound care on both the left and rightfoot wounds. We will still prescribe nifedipine gel for the patient to use as an outpatient and hopefully we will be able to complete healing of the wounds onthe right foot prior to her BKA amputation left. The patient will continue her current wound care regimen with Santyl and the addition of the nifedipine gel. She will follow-up in our office with Dr. Mohamud in the next week or 2. Advised patient to call if she has any problems or questions prior to that follow-up visit. Code(s): I96 - Gangrene, not elsewhere classified (2) Ulcer of left foot, limited to breakdown of skin: Code(s): L97.521 - Non-pressure chronic ulcer of other part of left foot limited to breakdown of skin (3) PAD (peripheral artery disease): Code(s): I73.9 - Peripheral vascular disease, unspecified (4) Type 2 diabetes mellitus with peripheral neuropathy: Code(s): E11.42 - Type 2 diabetes mellitus with diabetic polyneuropathy Documented By: Ayan Deluna DPM, AUTUMN 1233 Signed By: <Electronically signed by TERESA Deluna> 02/02/[address] [facility] Work Phone: 1(796) 346-838211-21-2023 Progress note Author Zaid Mon [facility] February 02, 2023 12:26pm Note Date/Time February 02, 2023 12:27pm [facility] [address] [place] [address] Vascular Surgery Progress Note Signed Patient: Ema Neff MR#: [id number] : 1965 Acct:[id number] Age/Sex: 58 / F Adm Date: 3 Loc: 4N Room: 8V0916-2 Type: ADM IN Attending Dr: Ryland Liu MD Copies to: ~ Date of Service: 02/02/2023 Subjective Subjective Interval history: This patient was seen on rounds today. Her motor polarizer Dr. Umaña follows in [facility]. She was not really complaining of any discomfort although she does have pain in her left foot at times. Subjective: feels better Exam Physical Exam Vital Signs: Temp Pulse Resp BP Pulse Ox O2 Del Method O2 Flow Rate 98.3 F 85 18 135/95 93 L Room Air 8 02/02/23 07:52 02/02/23 10:47 02/02/23 10:47 02/02/23 10:47 02/02/23 10:47 02/02/23 10:47 02/01/23 18:47 Narrative: The left foot was examined and there is been no change since yesterday or the day before. She has no palpable pulse in the left foot. Const General: cooperative and comfortable Orientation: oriented x3 Objective Labs 02/02/23 05:00 02/02/23 05:00 Other Labs: Laboratory Results - last 24 hr 02/01/23 02/01/23 02/01/23 07:38 09:23 10:42 Corrected WBC Uncorrected WBC Count RBC Hgb Hct MCV MCH MCHC RDW Plt Count MPV Neut % (Auto) Lymph % (Auto) [place] % (Auto) Eos % (Auto) Baso % (Auto) Nucleat RBC Rel Count Neut # (Auto) Lymph # (Auto) [place] # (Auto) Eos # (Auto) Baso # (Auto) PHA Creatinine Clear Sodium Potassium Chloride Carbon Dioxide Anion Gap BUN Creatinine Est GFR (CKD-EPI) Glucose POC Glucose 114 148 111 POC Glucose Comment Calcium Vancomycin Peak Vancomycin Trough 02/01/23 02/01/23 02/01/23 16:35 18:50 20:45 Corrected WBC Uncorrected WBC Count RBC Hgb Hct MCV MCH MCHC RDW Plt Count MPV Neut % (Auto) Lymph % (Auto) [place] % (Auto) Eos % (Auto) Baso % (Auto) Nucleat RBC Rel Count Neut # (Auto) Lymph # (Auto) [place] # (Auto) Eos # (Auto) Baso # (Auto) PHA Creatinine Clear Sodium Potassium Chloride Carbon Dioxide Anion Gap BUN Creatinine Est GFR (CKD-EPI) Glucose POC Glucose 118 114 POC Glucose Comment Calcium Vancomycin Peak 25.9 Vancomycin Trough 02/01/23 02/02/23 02/02/23 21:19 05:00 05:00 Corrected WBC 13.0 H Uncorrected WBC Count 13.0 H RBC 4.44 Hgb 13.6 Hct 41.9 MCV 94.4 MCH 30.7 MCHC 32.5 RDW 13.9 Plt Count 262 MPV 7.3 Neut % (Auto) 70.4 Lymph % (Auto) 18.5 [place] % (Auto) 7.3 Eos % (Auto) 3.0 Baso % (Auto) 0.8 Nucleat RBC Rel Count 0.1 Neut # (Auto) 9.1 H Lymph # (Auto) 2.4 [place] # (Auto) 0.9 H Eos # (Auto) 0.4 Baso # (Auto) 0.1 PHA Creatinine Clear 79.39 Sodium 139 Potassium 3.6 Chloride 101 Carbon Dioxide 30.1 Anion Gap 11.5 BUN 8 Creatinine 0.98 Est GFR (CKD-EPI) > 60.0 Glucose 153 H POC Glucose 220 POC Glucose Comment Glu2: cleaned meter Calcium 8.7 Vancomycin Peak Vancomycin Trough 02/02/23 02/02/23 06:00 07:47 Corrected WBC Uncorrected WBC Count RBC Hgb Hct MCV MCH MCHC RDW Plt Count MPV Neut % (Auto) Lymph % (Auto) [place] % (Auto) Eos % (Auto) Baso % (Auto) Nucleat RBC Rel Count Neut # (Auto) Lymph # (Auto) [place] # (Auto) Eos # (Auto) Baso # (Auto) PHA Creatinine Clear Sodium Potassium Chloride Carbon Dioxide Anion Gap BUN Creatinine Est GFR (CKD-EPI) Glucose POC Glucose 150 POC Glucose Comment Glu2: cleaned meter Calcium Vancomycin Peak Vancomycin Trough 15.7 Microbiology Microbiology: Microbiology - Results from entire visit 02/01/23 18:35 Toe,Left Second - Other Aerobic Culture - Preliminary No Growth 1 Day 02/01/23 18:35 Toe,Left Second - Other Anaerobic Culture - Preliminary No Anaerobes Isolated 1 Day 01/28/23 16:46 Blood - Right Antecubital Blood Culture - Preliminary No Growth 4 Days 01/28/23 16:30 Blood - Left Antecubital Blood Culture - Preliminary No Growth 4 Days 01/29/23 15:55 Foot,Left - Ulcer Superficial Wound Culture - Final Corynebacterium striatum group A&P - Vascular Assessment/Plan (1) Diabetes mellitus with foot ulcer: The patient's left lower extremity bypass is occluded. There are no options left for open nor endovascular means to establish more blood supply to the left foot. This patient will succumb to a left below the knee amputation. The wounds will not heal. I explained this to her today. I suggest we have [facility] see the patient in anticipation of the need for BKA. The patient is not surprised to hear this plan. Although she does need some time to make peace with this plan. The surgery will not be done during this admission. We can schedule this as an outpatient. The patient wishes this to be done next month. I will honor this request as she is not currently septic or toxic from the left foot at this time. The patient has had this wound for about a year now. I will sign off and see her as an outpatient. She understands agrees the plan. Code(s): E11.621 - Type 2 diabetes mellitus with foot ulcer; L97.509 - Non-pressure chronic ulcer of other part of unspecified foot with unspecified severity Status: Acute Documented By: Zaid Mon MD 02/02/231222 Signed By: <Electronically signed by Zaid Mon MD> 02/02/[address] [facility] Work Phone: 1(456) 686-708611-21-2023 Progress note Author Ryland Liu [facility] February 02, 2023 11:52am Note Date/Time February 02, 2023 11:47am [facility] [address] [place] [address] Hospitalist Progress Note Signed Patient: Ema Neff MR#: [id number] : 1965 Acct:[id number] Age/Sex: 58 / F Adm Date: 3 Loc: 4N Room: 4Z8716-3 Type: ADM IN Attending Dr: Ryland Liu MD Copies to: ~ Date of Service: 02/02/2023 Subjective Subjective Narrative: Patient seen and assessed at bedside. She underwent foot surgery yesterday for debridement of her infected toe. She is tearful on my assessment today. Her pain medication was increased overnight to IV Dilaudid every 3 hours instead of every 4 hours. She is maintained on very high doses of Percocet at home. She currently is prescribed 8 tablets of Percocet daily at home. She reports that this has been her pain regimen over the past 5 years. I did explain that we arelikely not to achieve significant pain control given that she is on such high doses of opioids as an outpatient. We will need to attempt weaning back on the pain medication starting this evening. Exam Physical Exam Vital Signs: Temp Pulse Resp BP Pulse Ox O2 Del Method O2 Flow Rate 98.3 F 85 18 135/95 93 L Room Air 8 02/02/23 07:52 02/02/23 10:47 02/02/23 10:47 02/02/23 10:47 02/02/23 10:47 02/02/23 10:47 02/01/23 18:47 Narrative: Constitutional: Middle-aged WF, resting in bed in no acute distress HEENT: Moist mucous membranes, neck supple, somewhat poor dentition Cardiovascular: RRR, no M/R/G, normal S1 and S2 Respiratory: Clear to auscultation bilaterally, no wheezes, rales or rhonchi GI: Soft, obese abdomen, nontender to palpation throughout : Deferred Extremities: No clubbing, cyanosis noted. Dressing is covering the left foot. Not unwrapped during this visit. Neuro: AAOx3, no focal neuro deficits Skin: Third digit of left foot noted as above Psych: Calm, cooperative and conversant Objective Lab Results 02/02/23 05:00 02/02/23 05:00 Microbiology Results Microbiology 02/01/23 18:35 Toe,Left Second - Other Aerobic Culture - Preliminary No Growth 1 Day 02/01/23 18:35 Toe,Left Second - Other Anaerobic Culture - Preliminary No Anaerobes Isolated 1 Day 01/28/23 16:46 Blood - Right Antecubital Blood Culture - Preliminary No Growth 4 Days 01/28/23 16:30 Blood - Left Antecubital Blood Culture - Preliminary No Growth 4 Days Meds Allergies and Active Meds Allergies hydrocodone [From Vicodin] Allergy (Verified 01/28/23 14:35) Hallucinating Steroid Injection Allergy (Uncoded 01/28/23 14:35) Swelling Active Meds: Active Medications Generic Name Dose Route Start Last Admin Trade Name Freq PRN Reason Stop Dose Admin Acetaminophen 650 mg 01/28/23 18:40 Acetaminophen 325 Mg Tablet PO 01/28/24 18:39 Q6HR PRN Pain Scale 1 - 3 or fever Aspirin 81 mg 01/29/23 09:00 02/02/23 08:02 Aspirin 81 Mg Tablet.Dr PO 01/29/24 08:59 81 mg QAM PAULINO Administration Atorvastatin Calcium 40 mg 01/29/23 09:00 02/02/23 08:02 Atorvastatin 40 Mg Tablet PO 01/29/24 08:59 40 mg QAM PAULINO Administration Clopidogrel Bisulfate 75 mg 01/29/23 09:00 02/02/23 08:02 Clopidogrel Bisulfate 75 Mg Tablet PO 01/29/24 08:59 75 mg QAM PAULINO Administration Collagenase 1 applic 01/29/23 11:00 02/02/23 08:04 Collagenase 250 Unit/Gm Oint 30 Gm Tube TOPICAL 01/29/24 10:59 1 applic DAILY PAULINO Administration Cyclobenzaprine HCl 10 mg 02/01/23 17:02 02/01/23 21:22 Cyclobenzaprine 10 Mg Tablet PO 02/01/24 21:59 10 mg Q8HR PRN Administration Back spasm Dextrose 0 gm 01/28/23 18:40 01/29/23 05:35 Dextrose 50% In Water 25 Gm/50 Ml Syringe IV-PUSH 01/28/24 18:39 25 gm PRN PRN Administration Hypoglycemia Docusate Sodium 100 mg 01/28/23 21:00 02/02/23 08:06 Docusate 100 Mg Capsule PO 01/28/24 20:59 Not Given BID PAULINO Gabapentin 800 mg 01/28/23 22:00 02/02/23 08:02 Gabapentin 800 Mg Tablet PO 01/28/24 21:59 800 mg QID PAULINO Administration Glucose 0 gm 01/28/23 18:40 Dextrose 40% Gel 15 Gm Tube PO 01/28/24 18:39 PRN PRN Hypoglycemia Heparin Sodium (Porcine) 500 unit 02/01/23 14:00 02/01/23 14:59 Heparin-Lock 500 Unit/5 Ml Syringe IV-PUSH 02/01/24 13:59 Not Given Q24H PAULINO Hydralazine HCl 10 mg 01/28/23 18:40 Hydralazine 20 Mg/Ml Vial IV-PUSH 01/28/24 18:39 Q4H PRN Hypertension Hydromorphone HCl 1 mg 02/01/23 21:58 02/02/23 10:59 Hydromorphone 1 Mg/Ml Syringe IV-PUSH 1 mg Q3H PRN Administration Pain Scale 8 - 10 Lactated Ringer's 1,000 mls @ 75 mls/hr 01/28/23 18:45 02/02/23 05:46 Lactated Ringers IV 01/28/24 18:44 75 mls/hr .[id number] PAULINO Administration Vancomycin HCl 1 gm in 250 mls @ 250 mls/hr 01/31/23 06:30 02/02/23 05:40 Vancomycin IV 250 mls/hr Q12H PAULINO Administration Insulin Aspart 0 units 01/28/23 22:00 02/02/23 08:02 Insulin Aspart 300 Units/3 Ml Insuln.Pen SUBCUT 01/28/24 21:59 3 units TID.WM.HS PAULINO Administration Protocol Levothyroxine Sodium 150 mcg 01/29/23 06:30 02/02/23 05:45 Levothyroxine 150 Mcg Tablet PO 01/29/24 06:29 150 mcg DAILY@0630 PAULINO Administration Lidocaine HCl 0.1 ml 02/01/23 03:05 Lidocaine 1% 50 Ml Vial INTRADERMA PREOP PRN Venipuncture x 1 Dose Loperamide HCl 2 mg 02/01/23 13:57 02/02/23 08:05 Loperamide 2 Mg Capsule PO 02/01/24 13:56 2 mg Q2H PRN Administration Diarrhea Losartan Potassium 50 mg 01/29/23 09:00 02/02/23 08:02 Losartan 50 Mg Tablet PO 01/29/24 08:59 50 mg QAM [facility] Administration Metoprolol Succinate 50 mg 01/29/23 09:00 02/02/23 08:06 Metoprolol Succinate 50 Mg Tab.Er.24h PO 01/29/24 08:59 Not Given QAM [facility] Ondansetron HCl 4 mg 01/28/23 18:40 02/01/23 10:11 Ondansetron 4 Mg/2 Ml Vial IV-PUSH 01/28/24 18:39 4 mg Q8H PRN Administration Nausea And Vomiting Oxycodone/Acetaminophen 2 tab 01/28/23 18:46 02/02/23 05:47 Oxycodone/Acetaminophen 5-325 Mg Tablet PO 2 tab Q6H PRN Administration Pain Sodium Chloride 0 ml 01/28/23 14:35 02/02/23 07:58 Sodium Chloride 0.9 % 10 Ml Syringe IV-PUSH 01/28/24 14:34 10 ml PRN PRN Administration Flush Sodium Chloride 0 ml 02/01/23 03:05 Sodium Chloride 0.9 % 10 Ml Syringe IV-PUSH 02/01/24 03:04 PRN PRN Flush Sodium Chloride 0 ml 02/01/23 09:00 Sodium Chloride 0.9 % 10 Ml Syringe IV-PUSH 02/01/24 08:59 PRN PRN Flush Sodium Chloride 0 ml 02/01/23 14:00 02/02/23 05:49 Sodium Chloride 0.9 % 10 Ml Syringe IV-PUSH 02/01/24 13:59 Not Given QSHIFT [facility] Vancomycin HCl 1 each 02/02/23 09:09 Vancomycin - Pharmacy Dosing 1 Each Miscell IV ONCE PRN ZZ.Pharmacy Consult Protocol A&P - Hospitalist Assessment/Plan (1) Dry gangrene: (2) Diabetic foot infection: (3) PVD (peripheral vascular disease): Plan # L 3rd toe dry gangrene with surrounding cellulitis Surgical culture sent yesterday. Patient is tearful because her pain remains severe at this time. I suspect hyperalgesia in the setting of chronic opioid dependence. Patient does have leukocytosis today, which is likely reactive. Noosteomyelitis noted on x-ray or MRI. Did discuss case briefly with Dr. Sykes and will plan for IV vancomycin for now. - Follow-up surgical cultures - Continue IV vancomycin - podiatry, vascular surgery, and ID following- appreciate recs - S/p angiogram and stent placed in LLE 01/29 - holding anticoagulation - pain control - PT/OT when able Hyperalgesia Prescribed opioid dependence Patient experiencing significant pain after surgical intervention yesterday. She does have chronic prescribed opioid use for her chronic pain (8 tabs Percocet daily). She probably would be a good Suboxone candidate given her high doses of Percocet she takes with continued chronic pain regardless. -Continue IV Dilaudid and Percocet for now, wean IV Dilaudid later today -Patient needs to continue with pain management as an outpatient; may be a good Suboxone candidate after discharge # HTN/HLD/PVD - cont home meds # Hypothyroidism - cont home meds # DM2 - ISS while admitted. Resume home regimen at discharge # DVT: We will need to discuss with podiatry as to when patient can restart her blood thinner Disposition: Pt with progressing L 3rd toe gangrene with surrounding cellulitis s/p angiogram and stent placed on 01/29 and plan for surgical intervention on Thursday 02/01. ID, vascular surgery and podiatry following. Likely will continueIV vancomycin for 2 weeks. PICC line is in place. Surgical culture sent yesterday, can continue to follow-up for organism. [facility]OT, [facility] Will need to wean patient's pain medication to a reasonable regimen before going home Documented By: Ryland Liu MD 3 [id number] Signed By: <Electronically signed by Ryland Liu MD> 02/02/23 [address] [facility] Work Phone: [phone]) 974-405311-21-2023 Progress note Author Rolando Sykes [facility] February 02, 2023 9:08am Note Date/Time February 02, 2023 9:06am [facility] [address] [place] [address] Infect. Disease Progress Note Signed Patient: Ema Neff MR#: [id number] : 1965 Acct:[id number] Age/Sex: 58 / F Adm Date: 3 Loc: Room: [address] [place] [address] Type: ADM IN Attending Dr: Ryland Liu MD Copies to: ~ Date of Service: 02/02/2023 Subjective Interval history: Patient did get her PICC line yesterday. She is status post wound debridement of the lesions on the second left toe amputation site and dorsal third left toe Exam Physical Exam Vital Signs: Temp Pulse Resp BP Pulse Ox O2 Del Method O2 Flow Rate 98.3 F 77 18 110/76 93 L Room Air 8 02/02/23 07:52 02/02/23 07:52 02/02/23 07:52 02/02/23 07:52 02/02/23 07:52 02/02/23 08:00 02/01/23 18:47 Const General: cooperative and comfortable Orientation: oriented x3 HEENT Head: normal to inspection Ears: hearing grossly normal bilaterally Nose: external nose normal Eyes General: appearance normal, both eyes and all related structures Neck Neck: normal visual inspection Chest Chest palpation & inspection: normal inspection of the chest Resp Effort & Inspection: normal respiratory effort Auscultation: clear to auscultation bilaterally Cardio Palpation: normal PMI Rate: regular rate Rhythm: regular rhythm GI Inspection: normal to inspection Palpation: soft Auscultation: normal bowel sounds Skin Lesions: lesion noted (left 3rd toe dorsal black scab) Other: Left foot is wrapped with surgical dressing Neuro General: patient oriented x3 Extrem General: abnormal to inspection (see above) Objective Labs CBC/BMP: CBC, BMP 02/02/23 02/02/23 05:00 05:00 Corrected WBC 13.0 H Uncorrected WBC Count 13.0 H RBC 4.44 Hgb 13.6 Hct 41.9 Plt Count 262 Sodium 139 Potassium 3.6 Chloride 101 Carbon Dioxide 30.1 Anion Gap 11.5 BUN 8 Creatinine 0.98 Calcium 8.7 Labs: 02/02/23 05:00 BUN 8 Creatinine 0.98 Microbiology Microbiology: Microbiology - Results from entire visit 01/28/23 16:46 Blood - Right Antecubital Blood Culture - Preliminary No Growth 4 Days 01/28/23 16:30 Blood - Left Antecubital Blood Culture - Preliminary No Growth 4 Days 01/29/23 15:55 Foot,Left - Ulcer Superficial Wound Culture - Final Corynebacterium striatum group Allergies and Medications Allergies and Active Meds Allergies hydrocodone [From Vicodin] Allergy (Verified 01/28/23 14:35) Hallucinating Steroid Injection Allergy (Uncoded 01/28/23 14:35) Swelling Active Medications Acetaminophen (Acetaminophen 325 Mg Tablet) 650 mg PO Q6HR PRN PRN Reason: Pain Scale 1 - 3 or fever Stop: 01/28/24 18:39 Aspirin (Aspirin 81 Mg Tablet.) 81 mg PO [facility] Stop: 01/29/24 08:59 Last Admin: 02/02/23 08:02 Dose: 81 mg Atorvastatin Calcium (Atorvastatin 40 Mg Tablet) 40 mg PO [facility] Stop: 01/29/24 08:59 Last Admin: 02/02/23 08:02 Dose: 40 mg Clopidogrel Bisulfate (Clopidogrel Bisulfate 75 Mg Tablet) [facility] Stop: 01/29/24 08:59 Last Admin: 02/02/23 08:02 Dose: 75 mg Collagenase (Collagenase 250 Unit/Gm Oint 30 Gm Tube) 1 applic TOPICAL DAILY [facility] Stop: 01/29/24 10:59 Last Admin: 02/02/23 08:04 Dose: 1 applic Cyclobenzaprine HCl (Cyclobenzaprine 10 Mg Tablet) 10 mg PO Q8HR PRN PRN Reason: Back spasm Stop: 02/01/24 21:59 Last Admin: 02/01/23 21:22 Dose: 10 mg Dextrose (Dextrose 50% In Water 25 Gm/50 Ml Syringe) 0 gm IV-PUSH PRN PRN PRN Reason: Hypoglycemia Stop: 01/28/24 18:39 Last Admin: 01/29/23 05:35 Dose: 25 gm Docusate Sodium (Docusate 100 Mg Capsule) 100 mg PO BID [facility] Stop: 01/28/24 20:59 Last Admin: 02/02/23 08:06 Dose: Not Given Gabapentin (Gabapentin 800 Mg Tablet) 800 mg PO QID [facility] Stop: 01/28/24 21:59 Last Admin: 02/02/23 08:02 Dose: 800 mg Glucose (Dextrose 40% Gel 15 Gm Tube) 0 gm PO PRN PRN PRN Reason: Hypoglycemia Stop: 01/28/24 18:39 Heparin Sodium (Porcine) (Heparin-Lock 500 Unit/5 Ml Syringe) 500 unit IV-PUSH Q24H PAULINO Stop: 02/01/24 13:59 Last Admin: 02/01/23 14:59 Dose: Not Given Hydralazine HCl (Hydralazine 20 Mg/Ml Vial) 10 mg IV-PUSH Q4H PRN PRN Reason: Hypertension Stop: 01/28/24 18:39 Hydromorphone HCl (Hydromorphone 1 Mg/Ml Syringe) 1 mg IV-PUSH Q3H PRN PRN Reason: Pain Scale 8 - 10 Last Admin: 02/02/23 07:58 Dose: 1 mg Lactated Ringer's (Lactated Ringers) 1,000 mls @ 75 mls/hr IV .[id number] PAULINO Stop: 01/28/24 18:44 Last Admin: 02/02/23 05:46 Dose: 75 mls/hr Piperacillin Sod/Tazobactam Sod (Zosyn) 3.375 gm in 100 mls @ 200 mls/hr IV Q6HSCH Last Admin: 02/02/23 07:57 Dose: 200 mls/hr Vancomycin HCl (Vancomycin) 1 gm in 250 mls @ 250 mls/hr IV Q12H [facility] Last Admin: 02/02/23 05:40 Dose: 250 mls/hr Insulin Aspart (Insulin Aspart 300 Units/3 Ml Insuln.Pen) 0 units SUBCUT TID..[facility]; Protocol Stop: 01/28/24 21:59 Last Admin: 02/02/23 08:02 Dose: 3 units Levothyroxine Sodium (Levothyroxine 150 Mcg Tablet) 150 mcg PO DAILY@0630 [facility] Stop: 01/29/24 06:29 Last Admin: 02/02/23 05:45 Dose: 150 mcg Lidocaine HCl (Lidocaine 1% 50 Ml Vial) 0.1 ml INTRADERMA PREOP PRN PRN Reason: Venipuncture x 1 Dose Loperamide HCl (Loperamide 2 Mg Capsule) 2 mg PO Q2H PRN PRN Reason: Diarrhea Stop: 02/01/24 13:56 Last Admin: 02/02/23 08:05 Dose: 2 mg Losartan Potassium (Losartan 50 Mg Tablet) 50 mg PO [facility] Stop: 01/29/24 08:59 Last Admin: 02/02/23 08:02 Dose: 50 mg Metoprolol Succinate (Metoprolol Succinate 50 Mg Tab.Er.24h) 50 mg PO [facility] Stop: 01/29/24 08:59 Last Admin: 02/02/23 08:06 Dose: Not Given Ondansetron HCl (Ondansetron 4 Mg/2 Ml Vial) 4 mg IV-PUSH Q8H PRN PRN Reason: Nausea And Vomiting Stop: 01/28/24 18:39 Last Admin: 02/01/23 10:11 Dose: 4 mg Oxycodone/Acetaminophen (Oxycodone/Acetaminophen 5-325 Mg Tablet) 2 tab PO Q6H PRN PRN Reason: Pain Last Admin: 02/02/23 05:47 Dose: 2 tab Sodium Chloride (Sodium Chloride 0.9 % 10 Ml Syringe) 0 ml IV-PUSH PRN PRN PRN Reason: Flush Stop: 01/28/24 14:34 Last Admin: 02/02/23 07:58 Dose: 10 ml Sodium Chloride (Sodium Chloride 0.9 % 10 Ml Syringe) 0 ml IV-PUSH PRN PRN PRN Reason: Flush Stop: 02/01/24 03:04 Sodium Chloride (Sodium Chloride 0.9 % 10 Ml Syringe) 0 ml IV-PUSH PRN PRN PRN Reason: Flush Stop: 02/01/24 08:59 Sodium Chloride (Sodium Chloride 0.9 % 10 Ml Syringe) 0 ml IV-PUSH QSHIFT PAULINO Stop: 02/01/24 13:59 Last Admin: 02/02/23 05:49 Dose: Not Given Vancomycin HCl (Vancomycin - Pharmacy Dosing 1 Each Miscell) 1 each IV ONCE PRN; Protocol PRN Reason: ZZ.Pharmacy Consult A&P - Infectious Disease Assessment/Plan (1) Peripheral vascular occlusive disease: Code(s): I73.9 - Peripheral vascular disease, unspecified Status: Acute (2) Diabetic infection of left foot: Code(s): E11.628 - Type 2 diabetes mellitus with other skin complications; L08.9 - Local infection of the skin and subcutaneous tissue, unspecified Status: Acute (3) Surgical wound, non healing: Code(s): T81.89XA - Other complications of procedures, not elsewhere classified, initial encounter Status: Acute (4) Cellulitis: Code(s): L03.90 - Cellulitis, unspecified Status: Acute Plan Patient had intraoperative culture collected yesterday. Obviously this is an antibiotic for 48 to 72 hours. Based on culture results superficially corynebacterium and light growth her Zosyn may not even be covering this. Without being able to predict what potential surgical operative culture collected yesterday will grow if discharge is warranted before this information is back could consider just IV vancomycin for a couple week treatment period. May have to adjust choice of antibiotic if culture results suggest different pathogen present. Documented By: Rolando Sykes MD 02/02/23901 Signed By: <Electronically signed by MD Rolando Sykes> 02/02/23907 [facility] Work Phone: 1(139) 276-798511-20-2023 Progress note Author Ryland Liu [facility] February 01, 2023 2:51pm Note Date/Time February 01, 2023 2:00pm [facility] [address] [place] [address] Hospitalist Progress Note Signed Patient: Ema Neff MR#: [id number] : 1965 Acct:[id number] Age/Sex: 58 / F Adm Date: 3 Loc: 4N Room: 1Z9468-9 Type: ADM IN Attending Dr: Ryland Liu MD Copies to: ~ Date of Service: 02/01/2023 Subjective Subjective Narrative: Patient seen and assessed after PICC line placed today. She is in reasonably good spirits. She remained afebrile overnight and had no acute events occur. She is planned to have surgical intervention for her L third toe gangrenous-appearing toe. Patient also does complain of persistent diarrhea. C. difficileis negative, she does request Imodium. Exam Physical Exam Vital Signs: Temp Pulse Resp BP Pulse Ox O2 Del Method O2 Flow Rate 98 F 75 20 111/79 98 Room Air 1 02/01/23 10:53 02/01/23 10:53 02/01/23 10:53 02/01/23 10:53 02/01/23 10:53 02/01/23 12:46 01/29/23 15:55 Narrative: Constitutional: Middle-aged WF, resting in bed in no acute distress HEENT: Moist mucous membranes, neck supple, somewhat poor dentition Cardiovascular: RRR, no M/R/G, normal S1 and S2 Respiratory: Clear to auscultation bilaterally, no wheezes, rales or rhonchi GI: Soft, obese abdomen, nontender to palpation throughout : Deferred Extremities: No clubbing, cyanosis noted. Patient with amputation of the left second digit of the foot with dressing covering. Third digit of the left toe isdarkened and hyperpigmented distally. Neuro: AAOx3, no focal neuro deficits Skin: Third digit of left foot noted as above Psych: Calm, cooperative and conversant Objective Lab Results 02/01/23 05:12 02/01/23 05:12 Microbiology Results Microbiology 01/28/23 16:46 Blood - Right Antecubital Blood Culture - Preliminary No Growth 3 Days 01/28/23 16:30 Blood - Left Antecubital Blood Culture - Preliminary No Growth 3 Days 01/29/23 15:55 Foot,Left - Ulcer Superficial Wound Culture - Final Corynebacterium striatum group Meds Allergies and Active Meds Allergies hydrocodone [From Vicodin] Allergy (Verified 01/28/23 14:35) Hallucinating Steroid Injection Allergy (Uncoded 01/28/23 14:35) Swelling Active Meds: Active Medications Generic Name Dose Route Start Last Admin Trade Name Amarilis PRN Reason Stop Dose Admin Acetaminophen 650 mg 01/28/23 18:40 Acetaminophen 325 Mg Tablet PO 01/28/24 18:39 Q6HR PRN Pain Scale 1 - 3 or fever Aspirin 81 mg 01/29/23 09:00 02/01/23 08:25 Aspirin 81 Mg Tablet.Dr PO 01/29/24 08:59 81 mg QAM PAULINO Administration Atorvastatin Calcium 40 mg 01/29/23 09:00 02/01/23 08:25 Atorvastatin 40 Mg Tablet PO 01/29/24 08:59 40 mg QAM PAULINO Administration Clopidogrel Bisulfate 75 mg 01/29/23 09:00 02/01/23 08:35 Clopidogrel Bisulfate 75 Mg Tablet PO 01/29/24 08:59 75 mg QAM PAULINO Administration Collagenase 1 applic 01/29/23 11:00 02/01/23 08:28 Collagenase 250 Unit/Gm Oint 30 Gm Tube TOPICAL 01/29/24 10:59 1 applic DAILY PAULINO Administration Sodium Chloride 500 ml/ 0 ml 02/01/23 17:00 Cefazolin Sodium 1 gm IRRIGATION 02/01/23 17:01 ONCE ONE Dextrose 0 gm 01/28/23 18:40 01/29/23 05:35 Dextrose 50% In Water 25 Gm/50 Ml Syringe IV-PUSH 01/28/24 18:39 25 gm PRN PRN Administration Hypoglycemia Docusate Sodium 100 mg 01/28/23 21:00 02/01/23 08:28 Docusate 100 Mg Capsule PO 01/28/24 20:59 Not Given BID PAULINO Gabapentin 800 mg 01/28/23 22:00 02/01/23 08:25 Gabapentin 800 Mg Tablet PO 01/28/24 21:59 800 mg QID PAULINO Administration Glucose 0 gm 01/28/23 18:40 Dextrose 40% Gel 15 Gm Tube PO 01/28/24 18:39 PRN PRN Hypoglycemia Hydralazine HCl 10 mg 01/28/23 18:40 Hydralazine 20 Mg/Ml Vial IV-PUSH 01/28/24 18:39 Q4H PRN Hypertension Hydromorphone HCl 1 mg 01/29/23 18:00 02/01/23 13:06 Hydromorphone 1 Mg/Ml Syringe IV-PUSH 1 mg Q4H PRN Administration Pain Scale 8 - 10 Lactated Ringer's 1,000 mls @ 75 mls/hr 01/28/23 18:45 02/01/23 08:23 Lactated Ringers IV 01/28/24 18:44 75 mls/hr .[id number] PAULINO Administration Piperacillin Sod/Tazobactam Sod 3.375 gm in 100 mls @ 200 mls/hr 01/28/23 20:30 02/01/23 08:35 Zosyn IV 200 mls/hr Q6H PAULINO Administration Vancomycin HCl 1 gm in 250 mls @ 250 mls/hr 01/31/23 06:30 02/01/23 05:56 Vancomycin IV 250 mls/hr Q12H PAULINO Administration Lactated Ringer's 1,000 mls @ 20 mls/hr 02/01/23 08:00 02/01/23 08:24 Lactated Ringers IV 02/02/23 07:59 Not Given .Q24H ONE Insulin Aspart 0 units 01/28/23 22:00 02/01/23 08:21 Insulin Aspart 300 Units/3 Ml Insuln.Pen SUBCUT 01/28/24 21:59 Not Given TID.WM.[facility] Protocol Levothyroxine Sodium 150 mcg 01/29/23 06:30 02/01/23 05:56 Levothyroxine 150 Mcg Tablet PO 01/29/24 06:29 150 mcg DAILY@0630 PAULINO Administration Lidocaine HCl 0.1 ml 02/01/23 03:05 Lidocaine 1% 50 Ml Vial INTRADERMA PREOP PRN Venipuncture x 1 Dose Loperamide HCl 2 mg 02/01/23 13:57 Loperamide 2 Mg Capsule PO 02/01/24 13:56 Q2H PRN Diarrhea Losartan Potassium 50 mg 01/29/23 09:00 02/01/23 08:25 Losartan 50 Mg Tablet PO 01/29/24 08:59 50 mg QAM PAULINO Administration Metoprolol Succinate 50 mg 01/29/23 09:00 02/01/23 08:25 Metoprolol Succinate 50 Mg Tab.Er.24h PO 01/29/24 08:59 50 mg QAM PAULINO Administration Ondansetron HCl 4 mg 01/28/23 18:40 02/01/23 10:11 Ondansetron 4 Mg/2 Ml Vial IV-PUSH 01/28/24 18:39 4 mg Q8H PRN Administration Nausea And Vomiting Oxycodone/Acetaminophen 2 tab 01/28/23 18:46 02/01/23 08:35 Oxycodone/Acetaminophen 5-325 Mg Tablet PO 2 tab Q6H PRN Administration Pain Sodium Chloride 0 ml 01/28/23 14:35 02/01/23 10:08 Sodium Chloride 0.9 % 10 Ml Syringe IV-PUSH 01/28/24 14:34 10 ml PRN PRN Administration Flush Sodium Chloride 0 ml 02/01/23 03:05 Sodium Chloride 0.9 % 10 Ml Syringe IV-PUSH 02/01/24 03:04 PRN PRN Flush Sodium Chloride 0 ml 02/01/23 09:00 Sodium Chloride 0.9 % 10 Ml Syringe IV-PUSH 02/01/24 08:59 PRN PRN Flush Vancomycin HCl 1 each 01/28/23 18:40 Vancomycin - Pharmacy Dosing 1 Each Miscell IV ONCE PRN ZZ.Pharmacy Consult Protocol A&P - Hospitalist Assessment/Plan (1) Dry gangrene: (2) Diabetic foot infection: (3) PVD (peripheral vascular disease): Plan # L 3rd toe dry gangrene with surrounding cellulitis Apparently has improved in appearance. PICC line placed today. - worsened due to diabetes and PVD - dropped phone on foot 1 week ago and toe progressed to gangrene with purulence - XR with cellulitis, but no OM noted - MRI with soft tissue swelling consistent with cellulitis, but no evidence of OM - blood and wound cultures obtained - started on empiric IV abx - will continue - podiatry, vascular surgery, and ID consulted - appreciate recs - sp angiogram and stent placed in LLE 01/29 - plan for surgical intervention on L 3rd toe today 02/01 - holding anticoagulation - pain control - PT/OT when able # HTN/HLD/PVD - cont home meds # Hypothyroidism - cont home meds # DM2 - ISS while admitted. Resume home regimen at discharge # DVT: holding for possible surgical intervention by podiatry Disposition: Pt with progressing L 3rd toe gangrene with surrounding cellulitis s/p angiogram and stent placed on 01/29 and plan for surgical intervention on Thursday 02/01. ID, vascular surgery and podiatry consulted. Cont empiric abx. PICC line is in place. Continue to follow cultures. PT/OT after surgical intervention today. Likely discharge home tomorrow Documented By: Ryland Liu MD 3 [id number] Signed By: <Electronically signed by Ryland Liu MD> 02/01/23 1451 [facility] Work Phone: [phone] 770-736811-20-2023 [facility]2023 Progress note Author Rolando Sykes [facility] February 01, 2023 9:00am Note Date/Time February 01, 2023 9:00am [facility] [address] [place] [address] Infect. Disease Progress Note Signed Patient: Ema Neff MR#: [id number] : 1965 Acct:[id number] Age/Sex: 58 / F Adm Date: 3 Loc: Room: [address] [place] [address] Type: ADM IN Attending Dr: Casa Givens DO Copies to: ~ Date of Service: 02/01/2023 Subjective Interval history: Patient is scheduled for surgery later today but unfortunately her arterial studies did not show any viable further intervention options. She is scheduled for podiatric surgery later today patient has been having multiple bowel movements from her antibiotics. C. difficile from 1120 was negative. She was given 1 dose of Imodium. Exam Physical Exam Vital Signs: Temp Pulse Resp BP Pulse Ox O2 Del Method O2 Flow Rate 97.4 F L 87 16 131/85 99 Room Air 1 02/01/23 08:00 02/01/23 08:00 02/01/23 08:00 02/01/23 08:00 02/01/23 08:00 02/01/23 08:00 01/29/23 15:55 Const General: cooperative and comfortable Orientation: oriented x3 HEENT Head: normal to inspection Ears: hearing grossly normal bilaterally Nose: external nose normal Eyes General: appearance normal, both eyes and all related structures Neck Neck: normal visual inspection Chest Chest palpation & inspection: normal inspection of the chest Resp Effort & Inspection: normal respiratory effort Auscultation: clear to auscultation bilaterally Cardio Palpation: normal PMI Rate: regular rate Rhythm: regular rhythm GI Inspection: normal to inspection Palpation: soft Auscultation: normal bowel sounds Skin Lesions: lesion noted (left 3rd toe dorsal black scab) Other: Swelling of the toe noted along with forefoot. Erythematous changes that are deeper in color. Tender to touch. Warmth going up the anterior bella. Some stasis changes noted of the bella Neuro General: patient oriented x3 Extrem General: abnormal to inspection (see above) Objective Labs CBC/BMP: CBC, BMP 02/01/23 02/01/23 05:12 05:12 Corrected WBC 11.5 Uncorrected WBC Count 11.5 RBC 4.61 Hgb 14.3 Hct 43.7 Plt Count 273 Sodium 138 Potassium 4.3 Chloride 102 Carbon Dioxide 29.2 Anion Gap 11.1 BUN 8 Creatinine 1.07 Calcium 8.5 L Labs: 02/01/23 05:12 BUN 8 Creatinine 1.07 Microbiology Microbiology: Microbiology - Results from entire visit 01/28/23 16:46 Blood - Right Antecubital Blood Culture - Preliminary No Growth 3 Days 01/28/23 16:30 Blood - Left Antecubital Blood Culture - Preliminary No Growth 3 Days 01/29/23 15:55 Foot,Left - Ulcer Superficial Wound Culture - Final Corynebacterium striatum group Allergies and Medications Allergies and Active Meds Allergies hydrocodone [From Vicodin] Allergy (Verified 01/28/23 14:35) Hallucinating Steroid Injection Allergy (Uncoded 01/28/23 14:35) Swelling Active Medications Acetaminophen (Acetaminophen 325 Mg Tablet) 650 mg PO Q6HR PRN PRN Reason: Pain Scale 1 - 3 or fever Stop: 01/28/24 18:39 Aspirin (Aspirin 81 Mg Tablet.) [facility] Stop: 01/29/24 08:59 Last Admin: 02/01/23 08:25 Dose: 81 mg Atorvastatin Calcium (Atorvastatin 40 Mg Tablet) 40 [facility] Stop: 01/29/24 08:59 Last Admin: 02/01/23 08:25 Dose: 40 mg Clopidogrel Bisulfate (Clopidogrel Bisulfate 75 Mg Tablet) 75 [facility] Stop: 01/29/24 08:59 Last Admin: 02/01/23 08:35 Dose: 75 mg Collagenase (Collagenase 250 Unit/Gm Oint 30 Gm Tube) 1 applic TOPICAL DAILY [facility] Stop: 01/29/24 10:59 Last Admin: 02/01/23 08:28 Dose: 1 applic Sodium Chloride 500 ml/ (Cefazolin Sodium 1 gm) 0 ml IRRIGATION ONCE ONE Stop: 02/01/23 17:01 Dextrose (Dextrose 50% In Water 25 Gm/50 Ml Syringe) 0 gm IV-PUSH PRN PRN PRN Reason: Hypoglycemia Stop: 01/28/24 18:39 Last Admin: 01/29/23 05:35 Dose: 25 gm Docusate Sodium (Docusate 100 Mg Capsule) 100 mg PO BID [facility] Stop: 01/28/24 20:59 Last Admin: 02/01/23 08:28 Dose: Not Given Gabapentin (Gabapentin 800 Mg Tablet) 800 mg PO QID [facility] Stop: 01/28/24 21:59 Last Admin: 02/01/23 08:25 Dose: 800 mg Glucose (Dextrose 40% Gel 15 Gm Tube) 0 gm PO PRN PRN PRN Reason: Hypoglycemia Stop: 01/28/24 18:39 Hydralazine HCl (Hydralazine 20 Mg/Ml Vial) 10 mg IV-PUSH Q4H PRN PRN Reason: Hypertension Stop: 01/28/24 18:39 Hydromorphone HCl (Hydromorphone 1 Mg/Ml Syringe) 1 mg IV-PUSH Q4H PRN PRN Reason: Pain Scale 8 - 10 Last Admin: 02/01/23 05:57 Dose: 1 mg Lactated Ringer's (Lactated Ringers) 1,000 mls @ 75 mls/hr IV .[id number] [facility] Stop: 01/28/24 18:44 Last Admin: 02/01/23 08:23 Dose: 75 mls/hr Piperacillin Sod/Tazobactam Sod (Zosyn) 3.375 gm in 100 mls @ 200 mls/hr IV Q6HS Last Admin: 02/01/23 08:35 Dose: 200 mls/hr Vancomycin HCl (Vancomycin) 1 gm in 250 mls @ 250 mls/hr IV Q12H [facility] Last Admin: 02/01/23 05:56 Dose: 250 mls/hr Lactated Ringer's (Lactated Ringers) 1,000 mls @ 20 mls/hr IV .Q24H ONE Stop: 02/02/23 07:59 Last Admin: 02/01/23 08:24 Dose: Not Given Insulin Aspart (Insulin Aspart 300 Units/3 Ml Insuln.Pen) 0 units SUBCUT [facility]ID.[facility]; Protocol Stop: 01/28/24 21:59 Last Admin: 02/01/23 08:21 Dose: Not Given Levothyroxine Sodium (Levothyroxine 150 Mcg Tablet) 150 mcg PO DAILY@0630 [facility] Stop: 01/29/24 06:29 Last Admin: 02/01/23 05:56 Dose: 150 mcg Lidocaine HCl (Lidocaine 1% 50 Ml Vial) 0.1 ml INTRADERMA PREOP PRN PRN Reason: Venipuncture x 1 Dose Losartan Potassium (Losartan 50 Mg Tablet) 50 mg PO [facility] Stop: 01/29/24 08:59 Last Admin: 02/01/23 08:25 Dose: 50 mg Metoprolol Succinate (Metoprolol Succinate 50 Mg Tab.Er.24h) 50 mg PO [facility] Stop: 01/29/24 08:59 Last Admin: 02/01/23 08:25 Dose: 50 mg Ondansetron HCl (Ondansetron 4 Mg/2 Ml Vial) 4 mg IV-PUSH Q8H PRN PRN Reason: Nausea And Vomiting Stop: 01/28/24 18:39 Oxycodone/Acetaminophen (Oxycodone/Acetaminophen 5-325 Mg Tablet) 2 tab PO Q6H PRN PRN Reason: Pain Last Admin: 02/01/23 08:35 Dose: 2 tab Sodium Chloride (Sodium Chloride 0.9 % 10 Ml Syringe) 0 ml IV-PUSH PRN PRN PRN Reason: Flush Stop: 01/28/24 14:34 Last Admin: 01/31/23 08:59 Dose: 10 ml Sodium Chloride (Sodium Chloride 0.9 % 10 Ml Syringe) 0 ml IV-PUSH PRN PRN PRN Reason: Flush Stop: 02/01/24 03:04 Vancomycin HCl (Vancomycin - Pharmacy Dosing 1 Each Miscell) 1 each IV ONCE PRN; Protocol PRN Reason: ZZ.Pharmacy Consult A&P - Infectious Disease Assessment/Plan (1) Peripheral vascular occlusive disease: Code(s): I73.9 - Peripheral vascular disease, unspecified Status: Acute (2) Diabetic infection of left foot: Code(s): E11.628 - Type 2 diabetes mellitus with other skin complications; L08.9 - Local infection of the skin and subcutaneous tissue, unspecified Status: Acute (3) Surgical wound, non healing: Code(s): T81.89XA - Other complications of procedures, not elsewhere classified, initial encounter Status: Acute (4) Cellulitis: Code(s): L03.90 - Cellulitis, unspecified Status: Acute Plan Patient scheduled for surgery but concern over wound healing has to be considered given the results of her vascular study. Ultimately feel that if youare going to be conservative and attempt everything we can to heal these wounds she will require IV antibiotics on discharge. Therefore will have PICC line placed. For now maintaining broad-spectrum coverage with vancomycin and Zosyn. We will follow-up on deep operative cultures when they are returned and hopefully be able to narrow significantly her coverage with this information. Documented By: Rolando Sykes MD 02/01/23 0856 Signed By: <Electronically signed by MD Rolando Sykes> 02/01/23 0900 [facility] Work Phone: 1([phone]) 521-379711-19-2023 Progress note Author Casa Givens [facility] January 31, 2023 4:03pm Note Date/Time January 31, 2023 4:02pm [facility] [address] [place] [address] Hospitalist Progress Note Signed Patient: Ema Neff MR#: [id number] : 1965 Acct:[id number] Age/Sex: 58 / F Adm Date: 3 Loc: Room: [address] [place] [address] Type: ADM IN Attending Dr: Casa Givens DO Copies to: ~ Date of Service: 01/31/2023 Subjective Subjective Narrative: Pt seen and examined. Sp vascular angiogram and stent placement in LLE 01/29. Plan is for surgical intervention on the toe Thursday 02/01. MRI without evidence of OM. Pain controlled. No complaints today Exam Physical Exam Vital Signs: Temp Pulse Resp BP Pulse Ox O2 Del Method O2 Flow Rate 98.8 F 78 16 137/83 95 Room Air 1 01/31/23 15:43 01/31/23 15:43 01/31/23 15:43 01/31/23 15:43 01/31/23 15:43 01/31/23 15:43 01/29/23 15:55 Narrative: General: Lying in bed comfortably HEENT: Normocephalic, atraumatic, trachea midline Respiratory: non labored Cardiovascular: RRR, normal S1 and S2 Abdominal: soft, non-distended Skin: warm, dry, L 2nd toe amputation. L 3rd toe with black eschar over dorsal aspect with purulence and surrounding erythema. Bilateral LE discoloration due to chronic venous stasis skin changes and PVD MSK: no edema Objective Lab Results 01/31/23 05:06 01/31/23 05:06 Microbiology Results Microbiology 01/29/23 15:55 Foot,Left - Ulcer Superficial Wound Culture - Final Corynebacterium striatum group 01/28/23 16:46 Blood - Right Antecubital Blood Culture - Preliminary No Growth 2 Days 01/28/23 16:30 Blood - Left Antecubital Blood Culture - Preliminary No Growth 2 Days Meds Allergies and Active Meds Allergies hydrocodone [From Vicodin] Allergy (Verified 01/28/23 14:35) Hallucinating Steroid Injection Allergy (Uncoded 01/28/23 14:35) Swelling Active Meds: Active Medications Generic Name Dose Route Start Last Admin Trade Name Freq PRN Reason Stop Dose Admin Acetaminophen 650 mg 01/28/23 18:40 Acetaminophen 325 Mg Tablet PO 01/28/24 18:39 Q6HR PRN Pain Scale 1 - 3 or fever Aspirin 81 mg 01/29/23 09:00 01/31/23 08:55 Aspirin 81 Mg Tablet. PO 01/29/24 08:59 81 mg QAM PAULINO Administration Atorvastatin Calcium 40 mg 01/29/23 09:00 01/31/23 08:53 Atorvastatin 40 Mg Tablet PO 01/29/24 08:59 40 mg QAM PAULINO Administration Clopidogrel Bisulfate 75 mg 01/29/23 09:00 01/31/23 08:54 Clopidogrel Bisulfate 75 Mg Tablet PO 01/29/24 08:59 75 mg QAM PAULINO Administration Collagenase 1 applic 01/29/23 11:00 01/31/23 09:03 Collagenase 250 Unit/Gm Oint 30 Gm Tube TOPICAL 01/29/24 10:59 1 applic DAILY PAULINO Administration Sodium Chloride 500 ml/ 0 ml 02/01/23 17:00 Cefazolin Sodium 1 gm IRRIGATION 02/01/23 17:01 ONCE ONE Dextrose 0 gm 01/28/23 18:40 01/29/23 05:35 Dextrose 50% In Water 25 Gm/50 Ml Syringe IV-PUSH 01/28/24 18:39 25 gm PRN PRN Administration Hypoglycemia Docusate Sodium 100 mg 01/28/23 21:00 01/31/23 08:54 Docusate 100 Mg Capsule PO 01/28/24 20:59 Not Given BID PAULINO Gabapentin 800 mg 01/28/23 22:00 01/31/23 13:37 Gabapentin 800 Mg Tablet PO 01/28/24 21:59 800 mg QID PAULINO Administration Glucose 0 gm 01/28/23 18:40 Dextrose 40% Gel 15 Gm Tube PO 01/28/24 18:39 PRN PRN Hypoglycemia Hydralazine HCl 10 mg 01/28/23 18:40 Hydralazine 20 Mg/Ml Vial IV-PUSH 01/28/24 18:39 Q4H PRN Hypertension Hydromorphone HCl 1 mg 01/29/23 18:00 01/31/23 13:37 Hydromorphone 1 Mg/Ml Syringe IV-PUSH 1 mg Q4H PRN Administration Pain Scale 8 - 10 Lactated Ringer's 1,000 mls @ 75 mls/hr 01/28/23 18:45 01/31/23 13:38 Lactated Ringers IV 01/28/24 18:44 75 mls/hr .[id number] PAULINO Administration Piperacillin Sod/Tazobactam Sod 3.375 gm in 100 mls @ 200 mls/hr 01/28/23 20:30 01/31/23 13:36 Zosyn IV 200 mls/hr Q6H PAULINO Administration Vancomycin HCl 1 gm in 250 mls @ 250 mls/hr 01/31/23 06:30 01/31/23 06:15 Vancomycin IV 250 mls/hr Q12H PAULINO Administration Insulin Aspart 0 units 01/28/23 22:00 01/31/23 12:07 Insulin Aspart 300 Units/3 Ml Insuln.Pen SUBCUT 01/28/24 21:59 Not Given TID.WM.HS [facility] Protocol Levothyroxine Sodium 150 mcg 01/29/23 06:30 01/31/23 06:15 Levothyroxine 150 Mcg Tablet PO 01/29/24 06:29 150 mcg DAILY@0630 PAULINO Administration Losartan Potassium 50 mg 01/29/23 09:00 01/31/23 08:55 Losartan 50 Mg Tablet PO 01/29/24 08:59 50 mg QAM PAULINO Administration Metoprolol Succinate 50 mg 01/29/23 09:00 01/31/23 08:53 Metoprolol Succinate 50 Mg Tab.Er.24h PO 01/29/24 08:59 50 mg QAM PAULINO Administration Ondansetron HCl 4 mg 01/28/23 18:40 Ondansetron 4 Mg/2 Ml Vial IV-PUSH 01/28/24 18:39 Q8H PRN Nausea And Vomiting Oxycodone/Acetaminophen 2 tab 01/28/23 18:46 01/31/23 10:54 Oxycodone/Acetaminophen 5-325 Mg Tablet PO 2 tab Q6H PRN Administration Pain Sodium Chloride 0 ml 01/28/23 14:35 01/31/23 08:59 Sodium Chloride 0.9 % 10 Ml Syringe IV-PUSH 01/28/24 14:34 10 ml PRN PRN Administration Flush Vancomycin HCl 1 each 01/28/23 18:40 Vancomycin - Pharmacy Dosing 1 Each Miscell IV ONCE PRN ZZ.Pharmacy Consult Protocol A&P - Hospitalist Assessment/Plan (1) Dry gangrene: (2) Diabetic foot infection: (3) PVD (peripheral vascular disease): Plan # L 3rd toe dry gangrene with surrounding cellulitis - worsened due to diabetes and PVD - dropped phone on foot 1 week ago and toe progressed to gangrene with purulence - XR with cellulitis, but no OM noted - MRI with soft tissue swelling consistent with cellulitis, but no evidence of OM - blood and wound cultures obtained - started on empiric IV abx - will continue - podiatry, vascular surgery, and ID consulted - appreciate recs - sp angiogram and stent placed in LLE 01/29 - plan for surgical intervention on L 3rd toe Thursday 02/01 - wound care consulted - holding anticoagulation - pain control - PT/OT when able # HTN/HLD/PVD - cont home meds # Hypothyroid - cont home meds # DM2 - ISS while admitted. 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 ID, vascular surgery and podiatry consulted. Cont empiric abx. Follow cultures. Pt/OT when able. Will be here through the weekend Time Spent With Patient (min): 45 Documented By: Casa Givens DO 01/31/23 160 1 Signed By: <Electronically signed by Casa Givens DO> 01/31/[address] [facility] Work Phone: 1(472) 503-698711-19-2023 Progress note Author CWSacha wallis [facility] January 31, 2023 12:58pm Note Date/Time January 31, 2023 12:27pm [facility] [address] [place] [address] Podiatry Progress Note Signed Patient: Ema Neff MR#: [id number] : 1965 Acct:[id number] Age/Sex: 58 / F Adm Date: 3 Loc: Room: [address] [place] [address] Type: ADM IN Attending Dr: Casa Givens DO Copies to: ~ Subjective Subjective Date of Service: Date of Service: 01/31/2023 Time of Service: 12:25 Narrative: Ms. Neff is a 58 year old female who is typically followed by my partner Dr. Mehta. She has recently undergone second left toe amputation and he continues to follow for wounds at the amputation site. Patient recently dropped her cell phone on the third left toe which caused a wound which subsequently turned blackover the past week. Patient has history of peripheral arterial disease with history of previous vascular intervention, diabetes with peripheral neuropathy and history of chronic ulcerations of both feet. She has history of chronic pain associated with her back which apparently has made pain control in the lower extremities difficult at times. The patient's peripheral arterial diseaseis also fairly severe and unfortunately no further intervention is available. Ischemia is likely contributing to her lower extremity pain as well. She deniesany fever or chills. Patient reports that pain has been under control with painmedication and she feels as though she is slowly continuing to improve. Exam Physical Exam Vital Signs: Temp Pulse Resp BP Pulse Ox O2 Del Method O2 Flow Rate 98 F 83 16 102/71 98 Room Air 1 01/31/23 11:09 01/31/23 11:09 01/31/23 11:09 01/31/23 11:09 01/31/23 11:09 01/31/23 11:09 01/29/23 15:55 Narrative: General: Patient is seen at bedside and is awake and wearing in no acute distress. Vascular: DP pulse trace and PT pulses 0/4 and temperature gradient is warm to cool.? No significant edema noted today. Dr. Mon has performed vascular intervention in the form of angiogram today she continues to demonstrate significant peripheral arterial disease in the left lower extremity. Unfortunately there are no further vascular intervention that could be performedto improve her circulation. Neurological: Absent vibratory sensation at the first MP joint bilaterally.? Decreased light touch sensation distal to the midfoot bilaterally Dermatological: Skin is thinning with diminished hair growth bilaterally.? No hyperkeratotic lesions are noted.? Patient has history of second toe amputationsbilaterally.? Ulcerations are noted as described below Musculoskeletal: +5/5 muscle strength bilaterally, mild hammertoe deformities noted bilaterally Podiatric: Ulcerated lesions are noted on the left foot. Dry gangrenous lesion on the distal lateral third left toe. This lesion measures 2.5 x 1.0 cm in diameter and is superficial. There does not appear to be any significant drainage. No sinus tract or undermining noted. Amputation site of the second left toe demonstrates an ulcer 1.2 x 1.2 cm in diameter and 0.2 cm in depth.? The base of this wound is mixed granular and fibrotic.? No sinus track or undermining noted here.? All wounds demonstrate local erythema surrounding the lesions. Lesions are also very tender to the touch and no debridement can be performed due to the sensitivity.? CRP is 0.5 and WBC is now in normal range at 11.3. Culture and sensitivity preliminary report pulmonary report indicates light growth of corynebacterium striatum. X-rays did not reveal obvious erosivechanges suggestive of osteomyelitis. MRI study was completed and was somewhat compromised by motion artifact. No abscesses were noted and no bone marrow edema was noted within the underlying osseous structures of her wounds. No destructive changes noted. Assessment/Plan (1) Dry gangrene: Assessment/Problem Details: Completed initial examination. Discussed treatment options with the patient at length. Dr. Mon is completed vascular evaluation and angiogram. Unfortunately no further vascular intervention can be performed due to the severity of her PAD. MRI study was completed and no evidence of abscess or osteomyelitis noted. Once again we discussed the treatment options with patientat length. She would like to pursue wound further wound care at this point and postpone amputation if possible. Given the stability of her wound on the third left toe we can follow this course. Amputation may still be necessary and this can be done in the outpatient setting if needed. Of course there is no guarantee that the amputation site would heal either. The patient has undergonebilateral second toe amputations and both of these surgical sites remain open. Advised patient that upon discharge, I would recommend compounded nifedipine gelfrom Buderer Drug which can be used around her wounds to try to increase blood flow and promote further healing. Apparently this option was presented to her in the past but she did not wish to pay the [id number] cost for this medication. She is reconsidering this option at this time and we will contact [employer] with regards to the cost. Her questions were answered to her satisfaction. She understands that no guarantees can be made or implied with regard to the salvageability of the left foot. We have tentatively scheduled surgery for Wednesday under IV sedation. Patient will be n.p.o. after light breakfast on the morning of 02/01/2023. We will plan on performing wound debridements of both wounds on the left foot. We discussed the risks and complications of the surgical procedure including but not limited to worsening infection, need for further surgery, loss of limb, blood clots, and pain. Patient voiced understanding and wishes to proceed. Once surgery is completed, if patient continues to do well she will be clear from a podiatric standpoint for discharge with continued wound care at home and antibiotic therapy as recommended by Dr. Sykes. Code(s): I96 - Gangrene, not elsewhere classified (2) Ulcer of left foot, limited to breakdown of skin: Code(s): L97.521 - Non-pressure chronic ulcer of other part of left foot limited to breakdown of skin (3) PAD (peripheral artery disease): Code(s): I73.9 - Peripheral vascular disease, unspecified (4) Type 2 diabetes mellitus with peripheral neuropathy: Code(s): E11.42 - Type 2 diabetes mellitus with diabetic polyneuropathy Documented By: Ayan Deluna DPM, CWS 1225 Signed By: <Electronically signed by TERESA Deluna> 01/31/[address] [facility] Work Phone: [phone]) 987-739411-18-2023 Progress note Author AUTUMN Renteria l [facility] January 30, 2023 3:13pm Note Date/Time January 30, 2023 2:59pm [facility] [address] [place] [address] Podiatry Progress Note Signed Patient: Ema Neff MR#: [id number] : 1965 Acct:[id number] Age/Sex: 58 / F Adm Date: 3 Loc: 4N Room: 7D3384-5 Type: ADM IN Attending Dr: Casa Givens DO Copies to: ~ Subjective Subjective Date of Service: Date of Service: 01/30/2023 Time of Service: 14:57 Narrative: Ms. Neff is a 58 year old female who is typically followed by my partner Dr. Mehta. She has recently undergone second left toe amputation and he continues to follow for wounds at the amputation site. Patient recently dropped her cell phone on the third left toe which caused a wound which subsequently turned blackover the past week. Patient has history of peripheral arterial disease with history of previous vascular intervention, diabetes with peripheral neuropathy and history of chronic ulcerations of both feet. She has history of chronic pain associated with her back which apparently has made pain control in the lower extremities difficult at times. The patient's peripheral arterial diseaseis also fairly severe and unfortunately no further intervention is available. Ischemia is likely contributing to her lower extremity pain as well. She deniesany fever or chills. She feels that she is somewhat better today particularly with regard to her pain upon admission. Exam Physical Exam Vital Signs: Temp Pulse Resp BP Pulse Ox O2 Del Method O2 Flow Rate 98.4 F 85 18 95/67 L 95 Room Air 1 01/30/23 11:44 01/30/23 11:44 01/30/23 11:44 01/30/23 11:44 01/30/23 11:44 01/30/23 11:44 01/29/23 15:55 Narrative: General: Patient is seen at bedside and is awake and wearing in no acute distress. Vascular: DP pulse trace and PT pulses 0/4 and temperature gradient is warm to cool.? No significant edema noted today. Dr. Mon has performed vascular intervention in the form of angiogram today she continues to demonstrate significant peripheral arterial disease in the left lower extremity. Unfortunately there are no further vascular intervention that could be performedto improve her circulation. Neurological: Absent vibratory sensation at the first MP joint bilaterally.? Decreased light touch sensation distal to the midfoot bilaterally Dermatological: Skin is thinning with diminished hair growth bilaterally.? No hyperkeratotic lesions are noted.? Patient has history of second toe amputationsbilaterally.? Ulcerations are noted as described below Musculoskeletal: +5/5 muscle strength bilaterally, mild hammertoe deformities noted bilaterally Podiatric: Ulcerated lesions are noted on the left foot. Dry gangrenous lesion on the distal lateral third left toe. This lesion measures 2.5 x 1.0 cm in diameter and is superficial. There does not appear to be any significant drainage. No sinus tract or undermining noted. Amputation site of the second left toe demonstrates an ulcer 1.2 x 1.2 cm in diameter and 0.2 cm in depth.? The base of this wound is mixed granular and fibrotic.? No sinus track or undermining noted here.? All wounds demonstrate local erythema surrounding the lesions. Lesions are also very tender to the touch and no debridement can be performed due to the sensitivity.? CRP is 0.5 and WBC is trending lower. Culture and sensitivity preliminary report indicates NSF. X-rays did not revealobvious erosive changes suggestive of osteomyelitis. MRI study was completed and was somewhat compromised by motion artifact. No abscesses were noted and nobone marrow edema was noted within the underlying osseous structures of her wounds. No destructive changes noted. Assessment/Plan (1) Dry gangrene: Assessment/Problem Details: Completed initial examination. Discussed treatment options with the patient at length. Dr. Mon is completed vascular evaluation and angiogram. Unfortunately no further vascular intervention can be performed due to the severity of her PAD. MRI study was completed and no evidence of abscess or osteomyelitis noted. Once again we discussed the treatment options with patientat length. She would like to pursue wound further wound care at this point and postpone amputation if possible. Given the stability of her wound on the third left toe we can follow this course. Amputation may still be necessary and this can be done in the outpatient setting. Of course there is no guarantee that theamputation site would heal either. The patient has undergone bilateral second toe amputations and both of these surgical sites remain open. Advised patient Iwould recommend compounded nifedipine gel from [employer] which can be used around her wounds to try to increase blood flow and promote further healing. Apparently this option was presented to her in the past but she did not wish to pay the [id number] cost for this medication. She is reconsidering this option at this time and we will contact [employer] with regards to the cost. Her questions were answered to her satisfaction and she will consider her options as noted above. She understands that no guarantees can be made or implied with regard to the salvageability of the left foot. We have tentativelyscheduled surgery for Wednesday under IV sedation. We will plan on performing wound debridements of both wounds on the left foot. If her third left toe should worsen prior to surgery we may still need to consider amputation. Code(s): I96 - Gangrene, not elsewhere classified (2) Ulcer of left foot, limited to breakdown of skin: Code(s): L97.521 - Non-pressure chronic ulcer of other part of left foot limited to breakdown of skin (3) PAD (peripheral artery disease): Code(s): I73.9 - Peripheral vascular disease, unspecified (4) Type 2 diabetes mellitus with peripheral neuropathy: Code(s): E11.42 - Type 2 diabetes mellitus with diabetic polyneuropathy Documented By: Ayan Deluna DPM, AUTUMN 1456 Signed By: <Electronically signed by TERESA Deluna> 01/30/23 [address] [facility] Work Phone: 1(336) 537-954411-18-2023 Progress note Author Casa Givens [facility] January 30, 2023 2:40pm Note Date/Time January 30, 2023 2:40pm [facility] [address] [place] [address] Hospitalist Progress Note Signed Patient: Ema Neff MR#: [id number] : 1965 Acct:[id number] Age/Sex: 58 / F Adm Date: 3 Loc: 4N Room: [address] [place] [address] Type: ADM IN Attending Dr: Casa Givens DO Copies to: ~ Date of Service: 01/30/2023 Subjective Subjective Narrative: Pt seen and examined. Had vascular angiogram and stent placement in LLE yesterday. Plan is for surgical intervention on the toe Wednesday. MRI today. Pain controlled. No complaints today Exam Physical Exam Vital Signs: Temp Pulse Resp BP Pulse Ox O2 Del Method O2 Flow Rate 98.4 F 85 18 95/67 L 95 Room Air 1 01/30/23 11:44 01/30/23 11:44 01/30/23 11:44 01/30/23 11:44 01/30/23 11:44 01/30/23 11:44 01/29/23 15:55 Narrative: General: Lying in bed comfortably HEENT: Normocephalic, atraumatic, trachea midline Respiratory: non labored Cardiovascular: RRR, normal S1 and S2 Abdominal: soft, non-distended Skin: warm, dry, L 2nd toe amputation. L 3rd toe with black eschar over dorsal aspect with purulence and surrounding erythema. Bilateral LE discoloration due to chronic venous stasis skin changes and PVD MSK: no edema Objective Lab Results 01/30/23 05:31 01/30/23 05:31 Microbiology Results Microbiology 01/29/23 15:55 Foot,Left - Ulcer Superficial Wound Culture - Preliminary 01/28/23 16:46 Blood - Right Antecubital Blood Culture - Preliminary No Growth 1 Day 01/28/23 16:30 Blood - Left Antecubital Blood Culture - Preliminary No Growth 1 Day Meds Allergies and Active Meds Allergies hydrocodone [From Vicodin] Allergy (Verified 01/28/23 14:35) Hallucinating Steroid Injection Allergy (Uncoded 01/28/23 14:35) Swelling Active Meds: Active Medications Generic Name Dose Route Start Last Admin Trade Name Freq PRN Reason Stop Dose Admin Acetaminophen 650 mg 01/28/23 18:40 Acetaminophen 325 Mg Tablet PO 01/28/24 18:39 Q6HR PRN Pain Scale 1 - 3 or fever Aspirin 81 mg 01/29/23 09:00 01/30/23 08:15 Aspirin 81 Mg Tablet. PO 01/29/24 08:59 81 mg QAM PAULINO Administration Atorvastatin Calcium 40 mg 01/29/23 09:00 01/30/23 08:16 Atorvastatin 40 Mg Tablet PO 01/29/24 08:59 40 mg QAM PAULINO Administration Clopidogrel Bisulfate 75 mg 01/29/23 09:00 01/30/23 08:16 Clopidogrel Bisulfate 75 Mg Tablet PO 01/29/24 08:59 75 mg QAM PAULINO Administration Collagenase 1 applic 01/29/23 11:00 01/30/23 10:38 Collagenase 250 Unit/Gm Oint 30 Gm Tube TOPICAL 01/29/24 10:59 Not Given DAILY PAULINO Sodium Chloride 500 ml/ 0 ml 02/01/23 17:00 Cefazolin Sodium 1 gm IRRIGATION 02/01/23 17:01 ONCE ONE Dextrose 0 gm 01/28/23 18:40 01/29/23 05:35 Dextrose 50% In Water 25 Gm/50 Ml Syringe IV-PUSH 01/28/24 18:39 25 gm PRN PRN Administration Hypoglycemia Docusate Sodium 100 mg 01/28/23 21:00 01/30/23 08:16 Docusate 100 Mg Capsule PO 01/28/24 20:59 100 mg BID PAULINO Administration Gabapentin 800 mg 01/28/23 22:00 01/30/23 13:55 Gabapentin 800 Mg Tablet PO 01/28/24 21:59 800 mg QID PAULINO Administration Glucose 0 gm 01/28/23 18:40 Dextrose 40% Gel 15 Gm Tube PO 01/28/24 18:39 PRN PRN Hypoglycemia Hydralazine HCl 10 mg 01/28/23 18:40 Hydralazine 20 Mg/Ml Vial IV-PUSH 01/28/24 18:39 Q4H PRN Hypertension Hydromorphone HCl 1 mg 01/29/23 18:00 01/30/23 10:28 Hydromorphone 1 Mg/Ml Syringe IV-PUSH 1 mg Q4H PRN Administration Pain Scale 8 - 10 Lactated Ringer's 1,000 mls @ 75 mls/hr 01/28/23 18:45 01/30/23 06:32 Lactated Ringers IV 01/28/24 18:44 75 mls/hr .[id number] PAULINO Administration Vancomycin HCl 1.25 gm/ 275 mls @ 183.333 mls/hr 01/29/23 06:30 01/30/23 06:33 Dextrose IV 01/29/24 06:29 183.33 mls/hr Q12H PAULINO Administration Piperacillin Sod/Tazobactam Sod 3.375 gm in 100 mls @ 200 mls/hr 01/28/23 20:30 01/30/23 13:55 Zosyn IV 200 mls/hr Q6H PAULINO Administration Insulin Aspart 0 units 01/28/23 22:00 01/30/23 11:57 Insulin Aspart 300 Units/3 Ml Insuln.Pen SUBCUT 01/28/24 21:59 Not Given TID.WM.HS PAULINO Protocol Levothyroxine Sodium 150 mcg 01/29/23 06:30 01/30/23 06:32 Levothyroxine 150 Mcg Tablet PO 01/29/24 06:29 150 mcg DAILY@0630 PAULINO Administration Losartan Potassium 50 mg 01/29/23 09:00 01/30/23 08:16 Losartan 50 Mg Tablet PO 01/29/24 08:59 50 mg QAM PAULINO Administration Metoprolol Succinate 50 mg 01/29/23 09:00 01/30/23 08:16 Metoprolol Succinate 50 Mg Tab.Er.24h PO 01/29/24 08:59 50 mg QAM PAULINO Administration Ondansetron HCl 4 mg 01/28/23 18:40 Ondansetron 4 Mg/2 Ml Vial IV-PUSH 01/28/24 18:39 Q8H PRN Nausea And Vomiting Oxycodone/Acetaminophen 2 tab 01/28/23 18:46 01/30/23 13:55 Oxycodone/Acetaminophen 5-325 Mg Tablet PO 2 tab Q6H PRN Administration Pain Sodium Chloride 0 ml 01/28/23 14:35 Sodium Chloride 0.9 % 10 Ml Syringe IV-PUSH 01/28/24 14:34 PRN PRN Flush Vancomycin HCl 1 each 01/28/23 18:40 Vancomycin - Pharmacy Dosing 1 Each Miscell IV ONCE PRN ZZ.Pharmacy Consult Protocol A&P - Hospitalist Assessment/Plan (1) Dry gangrene: (2) Diabetic foot infection: (3) PVD (peripheral vascular disease): Plan # L 3rd toe dry gangrene with surrounding cellulitis - worsened due to diabetes and PVD - dropped phone on foot 1 week ago and toe progressed to gangrene with purulence - XR with cellulitis, but no OM noted - MRI ordered and pending - blood and wound cultures obtained - started on empiric IV abx - will continue - podiatry, vascular surgery, and ID consulted - appreciate recs - sp angiogram and stent placed in LLE 01/29 - plan for surgical intervention on L 3rd toe Thursday 02/01 - wound care consulted - holding anticoagulation - pain control - PT/OT when able # HTN/HLD/PVD - cont home meds # Hypothyroid - cont home meds # DM2 - ISS while admitted. 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 ID, vascular surgery and podiatry consulted. Cont empiric abx. Follow cultures. Pt/OT when able. Will be here through the weekend Time Spent With Patient (min): 45 Documented By: Casa Givens DO 01/30/23 143 7 Signed By: <Electronically signed by Casa Givens DO> 01/30/23 14[address] [facility] Work Phone: 1([phone]) 486-702611-17-2023 Consult note Author CWSacha wallis [facility] January 29, 2023 3:40pm Note Date/Time January 29, 2023 3:24pm [facility] [address] [place] [address] Podiatry Consult Note Signed Patient: Ema Neff MR#: [id number] : 1965 Acct:[id number] Age/Sex: 58 / F Adm Date: 3 Loc: Room: [address] [place] [address] Type: ADM IN Attending Dr: Casa Givens DO Copies to: Ayan Deluna DPM, CWS DO Jarvis Lane MD~ HPI Data of Consult Consult Date: 01/29/23 Requesting Physician: Casa Givnes DO Primary Care Provider: Jarvis Thrasher MD Consult Narrative Reason for consult: Gangrenous wound third left toe History of present illness: Ms. Neff is a 58 year old female who is typically followed by my partner Dr. Mehta. She has recently undergone second left toe amputation and he continues to follow for wounds at the amputation site. Patient recently dropped her cell phone on the third left toe which caused a wound which subsequently turned blackover the past week. Patient has history of peripheral arterial disease with history of previous vascular intervention, diabetes with peripheral neuropathy and history of chronic ulcerations of both feet. She has history of chronic pain associated with her back which apparently has made pain control in the lower extremities difficult at times. She denies any fever or chills. Review of Systems Review of Systems All other systems reviewed & are negative unless noted below or in HPI Constitutional Constitutional: Reports system reviewed and no additional complaints, except as documented Eyes Eyes: Reports system reviewed and no additional complaints, except as documented Cardiovascular Cardiovascular: Reports leg edema and Reports pedal edema Respiratory Respiratory: Reports system reviewed and no additional complaints, except as documented Musculoskeletal Musculoskeletal: Reports numbness Integumentary/Breasts Skin/Breast: Reports change in pigmentation, Reports erythema and Reports skin ulcer Neurologic Neurologic: Reports numbness and Reports sensory deficit Psychiatric Psychiatric: Reports system reviewed and no additional complaints, except as documented Hematologic/Lymphatic Hematologic/Lymphatic: Reports system reviewed and no additional complaints, except as documented [facility] Medical History (Updated 01/29/23 @ 15:35 by Ayan Deluna DPM) Anxiety Arthritis Back pain Bronchitis Cellulitis DDD (degenerative disc disease) Depression Diabetes Diabetes mellitus, type 2 DJD (degenerative joint disease) Dry gangrene Eczema GERD (gastroesophageal reflux disease) since being dx with thyroid problems Gout History of amputation of toe History of CVA in adulthood rt sided weakness Hyperlipidemia Hypertension Hyperthyroidism Menopause Neuropathy Osteoporosis PAD (peripheral artery disease) Retinal artery occlusion right eye, is receiving injections. Sleep apnea no machine Smoker quit 03/2021 Tachycardia Ulcerative colitis Surgical History History of carpal tunnel surgery of right wrist History of cholecystectomy History of endometrial ablation History of surgery on wrist carpal tunnel and ulnar nerve rt arm; History of thyroidectomy History of tonsillectomy History of tubal ligation Hx of angioplasty bilateral legs x2, 2 stents on R Hx of cataract surgery bilateral S/P angioplasty with stent rt leg and left leg graft Family History Father Bladder cancer Prostate cancer Diabetes Mother H/O blood clots Social History Smoking Status: Former smoker Tobacco Type: cigarettes Substance Use Type: None Social History Comments: housing pt lives in mobile home Meds Medications and Allergies Allergies hydrocodone [From Vicodin] Allergy (Verified 01/28/23 14:35) Hallucinating Steroid Injection Allergy (Uncoded 01/28/23 14:35) Swelling Home Medications losartan 50 mg tablet 50 mg PO QAM htn 11/02/17 [History Confirmed 10/20/22] fluticasone propionate 50 mcg/actuation nasal spray,suspension (Flonase Allergy Relief) 1 spray intranasal QHS PRN Nasal Congestion 03/06/18 [History Confirmed 10/20/22] amitriptyline 25 mg tablet 50 mg PO QHS PRN Insomnia 01/21/21 [History Confirmed 10/20/22] gabapentin 800 mg tablet 800 mg PO QID neuropathy 01/21/21 [History Confirmed 10/20/22] meloxicam 15 mg tablet 15 mg PO QAM arthritis 01/21/21 [History Confirmed 10/20/22] nystatin 100,000 unit/gram topical ointment 1 applic topical TID PRN rash 03/10/21 [History Confirmed 10/20/22] aspirin 81 mg tablet,delayed release 81 mg PO QAM PVD 05/02/21 [History Confirmed 10/20/22] clopidogrel 75 mg tablet 75 mg PO QAM PVD 05/02/21 [History Confirmed 10/20/22] cyclobenzaprine 5 mg tablet 10 mg PO QHS PRN Muscle Spasm 05/02/21 [History Confirmed 10/20/22] metoprolol succinate 25 mg tablet,extended release 24 hr 50 mg PO QAM tachycardia/overactive thyroid 05/02/21 [History Confirmed 10/20/22] levothyroxine 125 mcg tablet 150 mcg PO QAM 09/27/21 [History Confirmed 10/20/22] sennosides 8.6 mg tablet (Senna Lax) 2 tab PO BID PRN constipation 30 days #120 tabs 10/09/21 [Rx Confirmed 10/20/22] glimepiride 4 mg tablet 4 mg PO QAM 11/04/21 [History Confirmed 10/20/22] atorvastatin 20 mg tablet (Lipitor) 40 mg PO QAM hyperlipidemia 12/26/21 [History Confirmed 10/20/22] collagenase clostridium histo. 250 unit/gram topical ointment (Santyl) 1 applic topical DAILY 08/20/22 [History Confirmed 10/20/22] duloxetine 30 mg capsule,delayed release 30 mg PO QAM 08/20/22 [History Confirmed 10/20/22] omeprazole 40 mg capsule,delayed release 40 mg PO QAM 08/20/22 [History Confirmed 10/20/22] oxycodone-acetaminophen 5 mg-325 mg tablet 1 - 2 tab PO Q4-6H PRN Pain 08/20/22 [History Confirmed 10/20/22] semaglutide 1 mg/dose (4 mg/3 mL) subcutaneous pen injector (Ozempic) 1 mg subcut QWEEK diabetes 08/20/22 [History Confirmed 10/20/22] Exam Physical Exam Vital Signs: Temp Pulse Resp BP Pulse Ox O2 Del Method O2 Flow Rate 97.8 F 78 13 108/67 98 Nasal Cannula 2 01/29/23 13:25 01/29/23 14:25 01/29/23 14:25 01/29/23 14:25 01/29/23 14:25 01/29/23 13:40 01/29/23 13:55 Narrative: General: Patient is seen at bedside and is awake and wearing in no acute distress. Vascular: DP pulse trace and PT pulses 0/4 and temperature gradient is warm to cool.? No significant edema noted today. Dr. Mon has performed vascular intervention in the form of angiogram today she continues to demonstrate significant peripheral arterial disease in the left lower extremity. Unfortunately there are no further vascular intervention that could be performedto improve her circulation. Neurological: Absent vibratory sensation at the first MP joint bilaterally.? Decreased light touch sensation distal to the midfoot bilaterally Dermatological: Skin is thinning with diminished hair growth bilaterally.? No hyperkeratotic lesions are noted.? Patient has history of second toe amputationsbilaterally.? Ulcerations are noted as described below Musculoskeletal: +5/5 muscle strength bilaterally, mild hammertoe deformities noted bilaterally Podiatric: Ulcerated lesions are noted on the left foot. Dry gangrenous lesion on the distal lateral third left toe. This lesion measures 2.5 x 1.0 cm in diameter and is superficial. There does not appear to be any significant drainage. No sinus tract or undermining noted. Amputation site of the second left toe demonstrates an ulcer 1.2 x 1.2 cm in diameter and 0.2 cm in depth.? The base of this wound is mixed granular and fibrotic.? No sinus track or undermining noted here.? All wounds demonstrate local erythema surrounding the lesions. Lesions are also very tender to the touch and no debridement can be performed due to the sensitivity.? CRP is 0.5 and WBC is 12.6. Culture and sensitivity is being taken. X-rays did not reveal obvious erosive changes suggestive of osteomyelitis. MRI study is pending. Results Labs 01/29/23 05:11 01/29/23 05:11 ESR 30 mm/hr (0-29) H 01/28/23 16:30 Assessment/Plan (1) Dry gangrene: Assessment/Problem Details: Completed initial examination. Discussed treatment options with the patient at length. Dr. Mon is completed vascular evaluation and angiogram. Unfortunately no further vascular intervention can be performed due to the severity of her PAD. At this point we will await MRI study. If no abscesses orosteomyelitis noted we will have 2 options depending on how the toe progresses over the weekend. Wound debridement could be performed and wound care continuedto see if we could heal this wound secondary to her recent injury. The other option would be to proceed with amputation of the toe due to the gangrene and significant PAD. Given the severity of her vascular disease and the persistenceof the wound at the second toe amputation site, I feel it is unlikely that wounddebridement or distal amputation would be likely to heal. Therefore would recommend amputation of the third left toe as there appears to be viable tissue available for closure for this procedure. These options were presented to the patient along with the potential risks and complications which she is familiar with from her previous procedures. Her questions were answered to her satisfaction and she will consider her options as noted above. We will tentatively schedule surgery for Wednesday afternoon under IV sedation. We will continue to follow her progress over the and will proceed with surgical interventionon Wednesday. Thank you for the consultation and podiatry will continue to follow. Code(s): I96 - Gangrene, not elsewhere classified (2) Ulcer of left foot, limited to breakdown of skin: Code(s): L97.521 - Non-pressure chronic ulcer of other part of left foot limited to breakdown of skin (3) PAD (peripheral artery disease): Code(s): I73.9 - Peripheral vascular disease, unspecified (4) Type 2 diabetes mellitus with peripheral neuropathy: Code(s): E11.42 - Type 2 diabetes mellitus with diabetic polyneuropathy Documented By: Ayan Deluna DPM, AUTUMN 1518 Signed By: <Electronically signed by TERESA Deluna> 01/29/23 15[address] [facility] Work Phone: 1(716) 402-836711-17-2023 Progress note Author Casa Givens [facility] January 29, 2023 3:08pm Note Date/Time January 29, 2023 3:08pm [facility] [address] [place] [address] Hospitalist Progress Note Signed Patient: Ema Neff MR#: [id number] : 1965 Acct:[id number] Age/Sex: 58 / F Adm Date: 3 Loc: Room: [address] [place] [address] Type: ADM IN Attending Dr: Casa Givens DO Copies to: ~ Date of Service: 01/29/2023 Subjective Subjective Narrative: Pt to the OR today for surgical intervention on L 3rd toe Exam Physical Exam Vital Signs: Temp Pulse Resp BP Pulse Ox O2 Del Method O2 Flow Rate 97.8 F 78 13 108/67 98 Nasal Cannula 2 01/29/23 13:25 01/29/23 14:25 01/29/23 14:25 01/29/23 14:25 01/29/23 14:25 01/29/23 13:40 01/29/23 13:55 Narrative: General: Lying in bed comfortably HEENT: Normocephalic, atraumatic, trachea midline Respiratory: non labored Cardiovascular: RRR, normal S1 and S2 Abdominal: soft, non-distended Skin: warm, dry, L 2nd toe amputation. L 3rd toe with black eschar over dorsal aspect with purulence and surrounding erythema. Bilateral LE discoloration due to chronic venous stasis skin changes and PVD MSK: no edema Objective Lab Results 01/29/23 05:11 01/29/23 05:11 Meds Allergies and Active Meds Allergies hydrocodone [From Vicodin] Allergy (Verified 01/28/23 14:35) Hallucinating Steroid Injection Allergy (Uncoded 01/28/23 14:35) Swelling Active Meds: Active Medications Generic Name Dose Route Start Last Admin Trade Name Amarilis PRN Reason Stop Dose Admin Acetaminophen 650 mg 01/28/23 18:40 Acetaminophen 325 Mg Tablet PO 01/28/24 18:39 Q6HR PRN Pain Scale 1 - 3 or fever Aspirin 81 mg 01/29/23 09:00 01/29/23 09:04 Aspirin 81 Mg Tablet.Dr PO 01/29/24 08:59 81 mg QAM PAULINO Administration Atorvastatin Calcium 40 mg 01/29/23 09:00 01/29/23 09:04 Atorvastatin 40 Mg Tablet PO 01/29/24 08:59 40 mg QAM PAULINO Administration Clopidogrel Bisulfate 75 mg 01/29/23 09:00 01/29/23 09:04 Clopidogrel Bisulfate 75 Mg Tablet PO 01/29/24 08:59 75 mg QAM PAULINO Administration Collagenase 1 applic 01/29/23 11:00 01/29/23 13:45 Collagenase 250 Unit/Gm Oint 30 Gm Tube TOPICAL 01/29/24 10:59 Not Given DAILY PAULINO Dextrose 0 gm 01/28/23 18:40 01/29/23 05:35 Dextrose 50% In Water 25 Gm/50 Ml Syringe IV-PUSH 01/28/24 18:39 25 gm PRN PRN Administration Hypoglycemia Docusate Sodium 100 mg 01/28/23 21:00 01/29/23 09:04 Docusate 100 Mg Capsule PO 01/28/24 20:59 100 mg BID PAULINO Administration Gabapentin 800 mg 01/28/23 22:00 01/29/23 14:04 Gabapentin 800 Mg Tablet PO 01/28/24 21:59 800 mg QID PAULINO Administration Glucose 0 gm 01/28/23 18:40 Dextrose 40% Gel 15 Gm Tube PO 01/28/24 18:39 PRN PRN Hypoglycemia Hydralazine HCl 10 mg 01/28/23 18:40 Hydralazine 20 Mg/Ml Vial IV-PUSH 01/28/24 18:39 Q4H PRN Hypertension Hydromorphone HCl 0.5 mg 01/28/23 19:05 01/29/23 14:03 Hydromorphone 1 Mg/Ml Syringe IV-PUSH 0.5 mg Q4H PRN Administration Pain Scale 8 - 10 Lactated Ringer's 1,000 mls @ 75 mls/hr 01/28/23 18:45 01/29/23 13:44 Lactated Ringers IV 01/28/24 18:44 75 mls/hr .[id number] PAULINO Administration Vancomycin HCl 1.25 gm/ 275 mls @ 183.333 mls/hr 01/29/23 06:30 01/29/23 05:53 Dextrose IV 01/29/24 06:29 183.33 mls/hr Q12H PAULINO Administration Piperacillin Sod/Tazobactam Sod 3.375 gm in 100 mls @ 200 mls/hr 01/28/23 20:30 01/29/23 14:09 Zosyn IV 200 mls/hr Q6H PAULINO Administration Insulin Aspart 0 units 01/28/23 22:00 01/29/23 13:45 Insulin Aspart 300 Units/3 Ml Insuln.Pen SUBCUT 01/28/24 21:59 Not Given TID.WM.HS [facility] Protocol Levothyroxine Sodium 150 mcg 01/29/23 06:30 01/29/23 05:36 Levothyroxine 150 Mcg Tablet PO 01/29/24 06:29 150 mcg DAILY@0630 PAULINO Administration Losartan Potassium 50 mg 01/29/23 09:00 01/29/23 09:04 Losartan 50 Mg Tablet PO 01/29/24 08:59 50 mg QAM PAULINO Administration Metoprolol Succinate 50 mg 01/29/23 09:00 01/29/23 09:04 Metoprolol Succinate 50 Mg Tab.Er.24h PO 01/29/24 08:59 50 mg QAM PAULINO Administration Ondansetron HCl 4 mg 01/28/23 18:40 Ondansetron 4 Mg/2 Ml Vial IV-PUSH 01/28/24 18:39 Q8H PRN Nausea And Vomiting Oxycodone/Acetaminophen 2 tab 01/28/23 18:46 01/29/23 07:37 Oxycodone/Acetaminophen 5-325 Mg Tablet PO 2 tab Q6H PRN Administration Pain Sodium Chloride 0 ml 01/28/23 14:35 Sodium Chloride 0.9 % 10 Ml Syringe IV-PUSH 01/28/24 14:34 PRN PRN Flush Vancomycin HCl 1 each 01/28/23 18:40 Vancomycin - Pharmacy Dosing 1 Each Miscell IV ONCE PRN ZZ.Pharmacy Consult Protocol A&P - Hospitalist Assessment/Plan (1) Dry gangrene: (2) Diabetic foot infection: (3) PVD (peripheral vascular disease): Plan # L 3rd toe dry gangrene with surrounding cellulitis - worsened due to diabetes and PVD - dropped phone on foot 1 week ago and toe progressed to gangrene with purulence - XR with cellulitis, but no OM noted - MRI ordered - blood and wound cultures obtained - started on empiric IV abx - will continue - podiatry, vascular surgery, and ID consulted - appreciate recs - to the OR 01/29 - wound care consulted - holding anticoagulation - pain control - PT/OT when able # HTN/HLD/PVD - cont home meds # Hypothyroid - cont home meds # DM2 - ISS while admitted. Resume home regimen at discharge DVT: holding for possible surgical intervention by podiatry Disposition: Pt with progressing L 3rd toe gangrene with surrounding cellulitis going to the OR today. ID, vascular surgery and podiatry consulted. Cont empiricabx. Follow cultures. Pt/OT when able. Will likely be here through the weekend Time Spent With Patient (min): 45 Documented By: Casa Givens DO 01/29/23 150 6 Signed By: <Electronically signed by Casa Givens DO> 01/29/[address] [facility] Work Phone: 1(291) 700-985611-17-2023 Progress note Author Zaid Mon [facility] January 29, 2023 1:11pm Note Date/Time January 29, 2023 1:09pm [facility] [address] [place] [address] Vascular Surgery Progress Note Signed Patient: Ema Neff MR#: [id number] : 1965 Acct:[id number] Age/Sex: 58 / F Adm Date: 3 Loc: 4N Room: 9T4778-8 Type: ADM IN Attending Dr: Casa Givens DO Copies to: ~ Date of Service: 01/29/2023 Subjective Subjective Interval history: This pleasant patient was seen on rounds. She has a left foot wound. Her left second toe amputation site is still not healed. She now has a new area of gangrene of the left third toe. She lacks pedal pulses on clinical exam. The patient states that she excellently dropped her phone on her toe of her left foot and ever since then its been wound. Exam Physical Exam Vital Signs: Temp Pulse Resp BP Pulse Ox O2 Del Method O2 Flow Rate 98.2 F 80 11 L 124/69 96 Nasal Cannula 6 01/29/23 11:14 01/29/23 12:56 01/29/23 12:56 01/29/23 12:56 01/29/23 12:56 01/29/23 12:56 01/29/23 12:56 Narrative: Patient is awake alert and oriented no distress she is pleasant polite and cooperative. She had no palpable pedal pulse on the left foot. Her left secondtoe amputation site is still open and not completely healed. She has a new areaof gangrene on her left third toe. Const General: cooperative, comfortable and no acute distress Orientation: oriented x3 Objective Labs 01/29/23 05:11 01/29/23 05:11 Other Labs: Laboratory Results - last 24 hr 01/28/23 01/28/23 01/28/23 16:30 16:30 16:30 Corrected WBC 12.9 H Uncorrected WBC Count 12.9 H RBC 5.30 H Hgb 16.6 H Hct 49.8 H MCV 94.0 MCH 31.3 MCHC 33.3 RDW 14.3 Plt Count 315 MPV 7.0 Neut % (Auto) 73.6 Lymph % (Auto) 19.7 [place] % (Auto) 5.0 Eos % (Auto) 0.4 Baso % (Auto) 1.3 Nucleat RBC Rel Count 0.1 Neut # (Auto) 9.5 H Lymph # (Auto) 2.5 [place] # (Auto) 0.6 Eos # (Auto) 0.1 Baso # (Auto) 0.2 Monocyte Dist Width 20.03 H ESR 30 H PHA Creatinine Clear 85.52 Sodium 139 Potassium 4.3 Chloride 103 Carbon Dioxide 31.9 H Anion Gap 8.4 BUN 11 Creatinine 0.87 Est GFR (CKD-EPI) > 60.0 Glucose 98 POC Glucose POC Glucose Comment Lactic Acid 0.9 Calcium 9.1 Total Bilirubin 0.5 AST 17 ALT 10 Alkaline Phosphatase 73 C-Reactive Prot, Quant 0.5 Total Protein 7.3 Albumin 3.9 Globulin 3.4 Albumin/Globulin Ratio 1.1 01/28/23 01/28/23 01/29/23 21:26 23:07 05:11 Corrected WBC 12.6 H Uncorrected WBC Count 12.6 H RBC 4.73 Hgb 14.7 Hct 44.5 MCV 94.2 MCH 31.0 MCHC 32.9 RDW 14.2 Plt Count 288 MPV 7.0 Neut % (Auto) 65.5 Lymph % (Auto) 25.2 [place] % (Auto) 7.2 Eos % (Auto) 1.5 Baso % (Auto) 0.6 Nucleat RBC Rel Count 0.1 Neut # (Auto) 8.2 H Lymph # (Auto) 3.2 [place] # (Auto) 0.9 H Eos # (Auto) 0.2 Baso # (Auto) 0.1 Monocyte Dist Width ESR PHA Creatinine Clear Sodium Potassium Chloride Carbon Dioxide Anion Gap BUN Creatinine Est GFR (CKD-EPI) Glucose POC Glucose 69 61 POC Glucose Comment Lactic Acid Calcium Total Bilirubin AST ALT Alkaline Phosphatase C-Reactive Prot, Quant Total Protein Albumin Globulin Albumin/Globulin Ratio 01/29/23 01/29/23 01/29/23 05:11 05:24 05:54 Corrected WBC Uncorrected WBC Count RBC Hgb Hct MCV MCH MCHC RDW Plt Count MPV Neut % (Auto) Lymph % (Auto) [place] % (Auto) Eos % (Auto) Baso % (Auto) Nucleat RBC Rel Count Neut # (Auto) Lymph # (Auto) [place] # (Auto) Eos # (Auto) Baso # (Auto) Monocyte Dist Width ESR PHA Creatinine Clear 81.69 Sodium 138 Potassium 3.7 Chloride 104 Carbon Dioxide 28.7 Anion Gap 9.0 BUN 11 Creatinine 0.95 Est GFR (CKD-EPI) > 60.0 Glucose 56 L POC Glucose 57 L* 151 POC Glucose Comment Lactic Acid Calcium 8.3 L Total Bilirubin AST ALT Alkaline Phosphatase C-Reactive Prot, Quant Total Protein Albumin Globulin Albumin/Globulin Ratio 01/29/23 08:09 Corrected WBC Uncorrected WBC Count RBC Hgb Hct MCV MCH MCHC RDW Plt Count MPV Neut % (Auto) Lymph % (Auto) [place] % (Auto) Eos % (Auto) Baso % (Auto) Nucleat RBC Rel Count Neut # (Auto) Lymph # (Auto) [place] # (Auto) Eos # (Auto) Baso # (Auto) Monocyte Dist Width ESR PHA Creatinine Clear Sodium Potassium Chloride Carbon Dioxide Anion Gap BUN Creatinine Est GFR (CKD-EPI) Glucose POC Glucose 84 POC Glucose Comment Glu2: cleaned meter Lactic Acid Calcium Total Bilirubin AST ALT Alkaline Phosphatase C-Reactive Prot, Quant Total Protein Albumin Globulin Albumin/Globulin Ratio A&P - Vascular Assessment/Plan (1) Diabetes mellitus with foot ulcer: This pleasant patient has a new lesion on her left second toe which is gangrenous. She has nonpalpable pedal pulses. I am recommending a left leg angiogram for diagnostic and possible therapeutic purposes. She also has a known bypass of her left anterior tibial peroneal artery done about a year ago by myself. We will also investigate and see if that is patent. The. The purpose of that bypass was to take advantage of the better peroneal runoff at the ankle level in the foot since her AT occluded distally. This patient remains at high risk for limb loss. The risks and benefits were explained as well as medical surgical tenderness. We also discussed potential complications as well as the management. She is well aware of these and she understands and agrees to the procedure today. Consent was obtained. She has had this multipletimes in the past. Code(s): E11.621 - Type 2 diabetes mellitus with foot ulcer; L97.509 - Non-pressure chronic ulcer of other part of unspecified foot with unspecified severity Status: Acute Documented By: Zaid Mon MD 01/29/23 1305 Signed By: <Electronically signed by Zaid Mon MD> 01/29/23 [address] [facility] Work Phone: [phone]) 789-832211-17-2023 Consult note Author Rolando Sykes [facility] January 29, 2023 11:28am Note Date/Time January 29, 2023 11:24am [facility] [address] [place] [address] Infect. Disease Consult Note Signed Patient: Ema Neff MR#: [id number] : 1965 Acct:[id number] Age/Sex: 58 / F Adm Date: 3 Loc: 4N Room: [address] [place] [address] Type: ADM IN Attending Dr: Casa Givens DO Copies to: DO Rolando Lane MD Robert L Hill,MD~ HPI Data of Consult Consult date: 01/29/23 Requesting Physician: Casa Givens DO Primary Care Provider: Jarvis Thrasher MD Consult Narrative History of present illness: Ms. Neff is a 58 year old female who is known to me from previous surgery whenshe had her second toe amputated about a year ago. She continues to follow withDr. Mariela's due to a small ulceration at the previous surgical site but generally states it has not gotten infected and she has been doing status quo. Few weeks back she dropped her cell phone on her third toe and this prompted things to worsen with this third toe becoming black with a necrotic skin lesion and swelling erythema and increased pain noted. She was just seen by Dr. Mon who is planning an angio to evaluate her blood supply. Patient is diabetic but has not been eating much due to the discomfort she is having in hertoe and is also having associated nausea. Her sugars have been on the low side since she has not been eating. I was consulted for antibiotic management CC: Casa Givens DO Review of Systems Review of Systems All other systems reviewed & are negative unless noted below or in HPI [facility] Medical History Anxiety Arthritis Back pain Bronchitis Cellulitis DDD (degenerative disc disease) Depression Diabetes Diabetes mellitus, type 2 DJD (degenerative joint disease) Eczema GERD (gastroesophageal reflux disease) since being dx with thyroid problems Gout History of amputation of toe History of CVA in adulthood rt sided weakness Hyperlipidemia Hypertension Hyperthyroidism Menopause Neuropathy Osteoporosis Retinal artery occlusion right eye, is receiving injections. Sleep apnea no machine Smoker quit 03/2021 Tachycardia Ulcerative colitis Surgical History History of carpal tunnel surgery of right wrist History of cholecystectomy History of endometrial ablation History of surgery on wrist carpal tunnel and ulnar nerve rt arm; History of thyroidectomy History of tonsillectomy History of tubal ligation Hx of angioplasty bilateral legs x2, 2 stents on R Hx of cataract surgery bilateral S/P angioplasty with stent rt leg and left leg graft Family History Father Bladder cancer Prostate cancer Diabetes Mother H/O blood clots Social History Smoking Status: Former smoker Tobacco Type: cigarettes Substance Use Type: None Social History Comments: housing pt lives in mobile home Allergies and Medications Allergies and Active Meds Allergies hydrocodone [From Vicodin] Allergy (Verified 01/28/23 14:35) Hallucinating Steroid Injection Allergy (Uncoded 01/28/23 14:35) Swelling Active Medications Acetaminophen (Acetaminophen 325 Mg Tablet) 650 mg PO Q6HR PRN PRN Reason: Pain Scale 1 - 3 or fever Stop: 01/28/24 18:39 Aspirin (Aspirin 81 Mg Tablet.Dr) 81 mg PO [facility] Stop: 01/29/24 08:59 Last Admin: 01/29/23 09:04 Dose: 81 mg Atorvastatin Calcium (Atorvastatin 40 Mg Tablet) 40 mg PO [facility] Stop: 01/29/24 08:59 Last Admin: 01/29/23 09:04 Dose: 40 mg Clopidogrel Bisulfate (Clopidogrel Bisulfate 75 Mg Tablet) [facility] Stop: 01/29/24 08:59 Last Admin: 01/29/23 09:04 Dose: 75 mg Collagenase (Collagenase 250 Unit/Gm Oint 30 Gm Tube) 1 applic TOPICAL DAILY [facility] Stop: 01/29/24 10:59 Dextrose (Dextrose 50% In Water 25 Gm/50 Ml Syringe) 0 gm IV-PUSH PRN PRN PRN Reason: Hypoglycemia Stop: 01/28/24 18:39 Last Admin: 01/29/23 05:35 Dose: 25 gm Docusate Sodium (Docusate 100 Mg Capsule) 100 mg PO BID [facility] Stop: 01/28/24 20:59 Last Admin: 01/29/23 09:04 Dose: 100 mg Gabapentin (Gabapentin 800 Mg Tablet) 800 mg PO QID [facility] Stop: 01/28/24 21:59 Last Admin: 01/29/23 09:04 Dose: 800 mg Glucose (Dextrose 40% Gel 15 Gm Tube) 0 gm PO PRN PRN PRN Reason: Hypoglycemia Stop: 01/28/24 18:39 Hydralazine HCl (Hydralazine 20 Mg/Ml Vial) 10 mg IV-PUSH Q4H PRN PRN Reason: Hypertension Stop: 01/28/24 18:39 Hydromorphone HCl (Hydromorphone 1 Mg/Ml Syringe) 0.5 mg IV-PUSH Q4H PRN PRN Reason: Pain Scale 8 - 10 Last Admin: 01/29/23 10:09 Dose: 0.5 mg Lactated Ringer's (Lactated Ringers) 1,000 mls @ 75 mls/hr IV .[id number] [facility] Stop: 01/28/24 18:44 Last Admin: 01/28/23 22:43 Dose: 75 mls/hr Vancomycin HCl 1.25 gm/ (Dextrose) 275 mls @ 183.333 mls/hr IV Q12H [facility] Stop: 01/29/24 06:29 Last Admin: 01/29/23 05:53 Dose: 183.33 mls/hr Piperacillin Sod/Tazobactam Sod (Zosyn) 3.375 gm in 100 mls @ 200 mls/hr IV Q6HSCH Last Admin: 01/29/23 09:03 Dose: 200 mls/hr Insulin Aspart (Insulin Aspart 300 Units/3 Ml Insuln.Pen) 0 units SUBCUT TID..[facility]; Protocol Stop: 01/28/24 21:59 Last Admin: 01/29/23 09:03 Dose: Not Given Levothyroxine Sodium (Levothyroxine 150 Mcg Tablet) 150 mcg PO DAILY@0630 [facility] Stop: 01/29/24 06:29 Last Admin: 01/29/23 05:36 Dose: 150 mcg Losartan Potassium (Losartan 50 Mg Tablet) 50 mg PO [facility] Stop: 01/29/24 08:59 Last Admin: 01/29/23 09:04 Dose: 50 mg Metoprolol Succinate (Metoprolol Succinate 50 Mg Tab.Er.24h) 50 mg PO [facility] Stop: 01/29/24 08:59 Last Admin: 01/29/23 09:04 Dose: 50 mg Ondansetron HCl (Ondansetron 4 Mg/2 Ml Vial) 4 mg IV-PUSH Q8H PRN PRN Reason: Nausea And Vomiting Stop: 01/28/24 18:39 Oxycodone/Acetaminophen (Oxycodone/Acetaminophen 5-325 Mg Tablet) 2 tab PO Q6H PRN PRN Reason: Pain Last Admin: 01/29/23 07:37 Dose: 2 tab Sodium Chloride (Sodium Chloride 0.9 % 10 Ml Syringe) 0 ml IV-PUSH PRN PRN PRN Reason: Flush Stop: 01/28/24 14:34 Vancomycin HCl (Vancomycin - Pharmacy Dosing 1 Each Miscell) 1 each IV ONCE PRN; Protocol PRN Reason: ZZ.Pharmacy Consult Exam Physical Exam Vital Signs: Vital Signs Temp Pulse Pulse Resp BP BP Pulse Ox 01/29/23 07:38 98.1 F 79 19 95/71 L 90 L 01/29/23 03:15 97.6 F 82 12 116/81 92 L 01/28/23 23:57 98.3 F 96 H 14 124/85 82 L 01/28/23 21:17 98.0 F 70 12 110/77 93 L 01/28/23 20:23 01/28/23 20:01 01/28/23 20:00 98.6 F 81 18 122/86 94 L 01/28/23 19:16 76 20 135/61 97 01/28/23 16:56 92 H 20 139/79 98 01/28/23 14:36 97.3 F L 102 H 18 126/88 98 Const General: cooperative and comfortable Orientation: oriented x3 HEENT Head: normal to inspection Ears: hearing grossly normal bilaterally Nose: external nose normal Eyes General: appearance normal, both eyes and all related structures Neck Neck: normal visual inspection Chest Chest palpation & inspection: normal inspection of the chest Resp Effort & Inspection: normal respiratory effort Auscultation: clear to auscultation bilaterally Cardio Palpation: normal PMI Rate: regular rate Rhythm: regular rhythm GI Inspection: normal to inspection Palpation: soft Auscultation: normal bowel sounds Skin Lesions: lesion noted (left 3rd toe dorsal black scab) Other: Swelling of the toe noted along with forefoot. Erythematous changes that are deeper in color. Tender to touch. Warmth going up the anterior bella. Some stasis changes noted of the bella Neuro General: patient oriented x3 Extrem General: abnormal to inspection (see above) Results Labs 01/29/23 05:11 01/29/23 05:11 Labs: 01/28/23 16:30: Corrected WBC 12.9 H, Uncorrected WBC Count 12.9 H 01/28/23 16:30: BUN 11, Creatinine 0.87 01/29/23 05:11: Corrected WBC 12.6 H, Uncorrected WBC Count 12.6 H 01/29/23 05:11: BUN 11, Creatinine 0.95 Microbiology Results Microbiology Narrative: 01/28/23 16:46 Blood Culture - Pending Blood - Right Antecubital 01/28/23 16:30 Blood Culture - Pending Blood - Left Antecubital Imaging and Cardiology Status: report viewed by me Results Comments: Xray: IMPRESSION: SOFT TISSUE SWELLING CONSISTENT WITH CELLULITIS. SCATTERED DEGENERATIVE CHANGESWITHOUT ACUTE BONY PROCESS OR PLAIN FILM EVIDENCE OF OSTEOMYELITIS. A&P - Infectious Disease (1) Peripheral vascular occlusive disease: Status: Acute (2) Diabetic infection of left foot: Status: Acute (3) Surgical wound, non healing: Status: Acute (4) Cellulitis: Status: Acute Plan Patient empirically on vancomycin and Zosyn. Awaiting arterial studies to evaluate blood supply. Podiatry consulted awaiting their input. X-ray only with soft tissue swelling without obvious osteo. Culture from December 2021 positive only for Pseudomonas. Maintain both vancomycin and Zosyn until more information is resulted and potential surgical decisions are made. Documented By: Rolando Sykes MD 01/29/23 111 Signed By: <Electronically signed by MD Rolando Sykes> 01/29/[address] [facility] Work Phone: [phone]) 950-608411-17-2023 Procedure [facility]11-17-2023 Procedure [facility]11-16-2023 History and physical note Author Casa Givens [facility] January 28, 2023 7:18pm Note Date/Time January 28, 2023 7:14pm [facility] [address] [place] [address] Hospitalist H&P Signed Patient: Ema Neff MR#: [id number] : 1965 Acct:[id number] Age/Sex: 58 / F Adm Date: 3 Loc: Room: [address] [place] [address] Type: ADM IN Attending Dr: Casa Givens DO Copies to: DO Jarvis Lane MD~ HPI DATE OF EXAMINATION: 01/28/23 CHIEF COMPLAINT: L toe infection HISTORY OF PRESENT ILLNESS: Pt is a 58 y/o F with PMHx of PVD sp L 2nd toe amputation, HTN/HLD, hypothyroid,DM2, chronic back pain who presents with worsening L 3rd toe discoloration and pain. Pt states that she had her L 2nd toe amputated about a year ago and was following up with podiatry for wound care. States that site has remained non-problematic and unchanged, but states about a week ago, she dropped her phone onher L 3rd toe and states the impact from the phone caused her top layer of skin to come off. She was doing local wound care to the area as she used to do with her other toe and states it continued to change colors, she noticed discharge and became more painful. States she attempted to get a podiatry appt, but the earliest they had was today, but pt was in too much pain to wait so she came to the ED. States her appetite has not been good for the last couple of days due tothe pain, but otherwise denies fevers, chills, cough, congestion, sob, palpitations, cp, abd pain, N/V/D. In the ED, vitals stable, afebrile. Labs largely unremarkable. XR of the L foot with cellulitis changes but no definitiveOM noted. Blood and foot cultures were drawn. Pt was given IV abx in the ED. ED spoke with podiatry who recommended admission to rule out OM given the gangrenous appearance and gas noted on palpation. Pt admitted for L 3rd toe gangrene and to rule out OM. Podiatry and ID consulted. MRI ordered. Review of Systems Review of Systems All other systems reviewed & are negative unless noted below or in HPI [facility] Medical History (Updated 01/28/23 @ 18:41 by Chino Peraza DO) Anxiety Arthritis Back pain Bronchitis Cellulitis DDD (degenerative disc disease) Depression Diabetes Diabetes mellitus, type 2 DJD (degenerative joint disease) Eczema GERD (gastroesophageal reflux disease) since being dx with thyroid problems Gout History of amputation of toe History of CVA in adulthood rt sided weakness Hyperlipidemia Hypertension Hyperthyroidism Menopause Neuropathy Osteoporosis Retinal artery occlusion right eye, is receiving injections. Sleep apnea no machine Smoker quit 03/2021 Tachycardia Ulcerative colitis Surgical History History of carpal tunnel surgery of right wrist History of cholecystectomy History of endometrial ablation History of surgery on wrist carpal tunnel and ulnar nerve rt arm; History of thyroidectomy History of tonsillectomy History of tubal ligation Hx of angioplasty bilateral legs x2, 2 stents on R Hx of cataract surgery bilateral S/P angioplasty with stent rt leg and left leg graft Family History Father Bladder cancer Prostate cancer Diabetes Mother H/O blood clots Social History Smoking Status: Former smoker Tobacco Type: cigarettes Substance Use Type: None Social History Comments: mobile home Meds Medications and Allergies Allergies hydrocodone [From Vicodin] Allergy (Verified 01/28/23 14:35) Hallucinating Steroid Injection Allergy (Uncoded 01/28/23 14:35) Swelling Home Medications losartan 50 mg tablet 50 mg PO QAM htn 11/02/17 [History Confirmed 10/20/22] fluticasone propionate 50 mcg/actuation nasal spray,suspension (Flonase Allergy Relief) 1 spray intranasal QHS PRN Nasal Congestion 03/06/18 [History Confirmed 10/20/22] amitriptyline 25 mg tablet 50 mg PO QHS PRN Insomnia 01/21/21 [History Confirmed 10/20/22] gabapentin 800 mg tablet 800 mg PO QID neuropathy 01/21/21 [History Confirmed 10/20/22] meloxicam 15 mg tablet 15 mg PO QAM arthritis 01/21/21 [History Confirmed 10/20/22] nystatin 100,000 unit/gram topical ointment 1 applic topical TID PRN rash 03/10/21 [History Confirmed 10/20/22] aspirin 81 mg tablet,delayed release 81 mg PO QAM PVD 05/02/21 [History Confirmed 10/20/22] clopidogrel 75 mg tablet 75 mg PO QAM PVD 05/02/21 [History Confirmed 10/20/22] cyclobenzaprine 5 mg tablet 10 mg PO QHS PRN Muscle Spasm 05/02/21 [History Confirmed 10/20/22] metoprolol succinate 25 mg tablet,extended release 24 hr 50 mg PO QAM tachycardia/overactive thyroid 05/02/21 [History Confirmed 10/20/22] levothyroxine 125 mcg tablet 150 mcg PO QAM 09/27/21 [History Confirmed 10/20/22] sennosides 8.6 mg tablet (Senna Lax) 2 tab PO BID PRN constipation 30 days #120 tabs 10/09/21 [Rx Confirmed 10/20/22] glimepiride 4 mg tablet 4 mg PO QAM 11/04/21 [History Confirmed 10/20/22] atorvastatin 20 mg tablet (Lipitor) 40 mg PO QAM hyperlipidemia 12/26/21 [History Confirmed 10/20/22] collagenase clostridium histo. 250 unit/gram topical ointment (Santyl) 1 applic topical DAILY 08/20/22 [History Confirmed 10/20/22] duloxetine 30 mg capsule,delayed release 30 mg PO QAM 08/20/22 [History Confirmed 10/20/22] omeprazole 40 mg capsule,delayed release 40 mg PO QAM 08/20/22 [History Confirmed 10/20/22] oxycodone-acetaminophen 5 mg-325 mg tablet 1 - 2 tab PO Q4-6H PRN Pain 08/20/22 [History Confirmed 10/20/22] semaglutide 1 mg/dose (4 mg/3 mL) subcutaneous pen injector (Ozempic) 1 mg subcut QWEEK diabetes 08/20/22 [History Confirmed 10/20/22] Exam Physical Exam Vital Signs: Temp Pulse Resp BP Pulse Ox O2 Del Method 97.3 F L 92 H 20 139/79 98 Room Air 01/28/23 14:36 01/28/23 16:56 01/28/23 16:56 01/28/23 16:56 01/28/23 16:56 01/28/23 16:56 Narrative: General: Awake and alert. Sitting in bed comfortably HEENT: Normocephalic, atraumatic, trachea midline Respiratory: good inspiratory effort, no wheeze, no rhonchi, no crackles Cardiovascular: RRR, normal S1 and S2 Abdominal: soft, non-distended, no tenderness, no rebound, no guarding, +BS Skin: warm, dry, L 2nd toe amputation. L 3rd toe with black eschar over dorsal aspect with purulence and surrounding erythema. Bilateral LE discoloration due to chronic venous stasis skin changes and PVD MSK: no edema Neurologic: No focal deficits Psych: appropriate affect Results Lab Results Labs: Laboratory Last Values Corrected WBC 12.9 X10E3/uL (3.8-11.6) H 01/28/23 16:30 Uncorrected WBC Count 12.9 x10E3/uL (3.8-11.6) H 01/28/23 16:30 RBC 5.30 X10E6/uL (3.60-5.00) H 01/28/23 16:30 Hgb 16.6 g/dL (11.8-15.4) H 01/28/23 16: Hct 49.8 % (34.0-46.4) H 01/28/23 16: MCV 94.0 fl (80-100) 01/28/23 16: MCH 31.3 pg (24.7-34.3) 01/28/23 16: MCHC 33.3 g/dL (32.0-35.0) 01/28/23 16: RDW 14.3 % (11.9-15.3) 01/28/23 16: Plt Count 315 x10E3/uL (150-450) 01/28/23 16: MPV 7.0 fl (6.3-10.7) 01/28/23 16: Neut % (Auto) 73.6 % (.) 01/28/23 16:30 Lymph % (Auto) 19.7 % (.) 01/28/23: [place] % (Auto) 5.0 % (.) 01/28/23 16:30 Eos % (Auto) 0.4 % (.) 01/28/23 16:30 Baso % (Auto) 1.3 % (.) 01/28/23: Nucleat RBC Rel Count 0.1 /100 WBC (0-0.5) 01/28/23 16:30 Neut # (Auto) 9.5 x10E3/uL (1.8-7.7) H 01/28/23 16:30 Lymph # (Auto) 2.5 x10E3/uL (1.00-4.8) 01/28/23 16:30 [place] # (Auto) 0.6 x10E3/uL (0.0-0.8) 01/28/23 16:30 Eos # (Auto) 0.1 x10E3/uL (0.0-0.45) 01/28/23 16:30 Baso # (Auto) 0.2 x10E3/uL (0.0-0.2) 01/28/23 16:30 Monocyte Dist Width 20.03 % (0.00-20.00) H 01/28/23 16:30 ESR 30 mm/hr (0-29) H 01/28/23 16:30 PHA Creatinine Clear 85.52 01/28/23 16:30 Sodium 139 mmol/L (136-145) 01/28/23 16:30 Potassium 4.3 mmol/L (3.5-5.1) 01/28/23 16:30 Chloride 103 mmol/L (98-107) 01/28/23 16:30 Carbon Dioxide 31.9 mmol/L (21.0-31.0) H 01/28/23 16:30 Anion Gap 8.4 mEq/L (6.0-15.0) 01/28/23 16:30 BUN 11 mg/dL (7-25) 01/28/23 16:30 Creatinine 0.87 mg/dL (0.60-1.20) 01/28/23 16:30 Est GFR (CKD-EPI) > 60.0 mL/Min 01/28/23 16:30 Glucose 98 mg/dL (70-100) 01/28/23 16:30 Lactic Acid 0.9 mmol/L (0.5-2.2) 01/28/23 16:30 Calcium 9.1 mg/dL (8.6-10.3) 01/28/23 16:30 Total Bilirubin 0.5 mg/dl (0.3-1.0) 01/28/23 16:30 AST 17 U/L (13-39) 01/28/23 16:30 ALT 10 U/L (7-52) 01/28/23 16:30 Alkaline Phosphatase 73 U/L (34-104) 01/28/23 16:30 C-Reactive Prot, Quant 0.5 mg/dL (0.0-0.5) 01/28/23 16:30 Total Protein 7.3 gm/dL (6.4-8.9) 01/28/23 16:30 Albumin 3.9 gm/dL (3.5-5.7) 01/28/23 16:30 Globulin 3.4 gm/dL 01/28/23 16:30 Albumin/Globulin Ratio 1.1 01/28/23 16:30 Assessment & Plan Assessment/Plan (1) Dry gangrene: (2) Diabetic foot infection: (3) PVD (peripheral vascular disease): Plan # L 3rd toe dry gangrene with surrounding cellulitis - worsened due to diabetes and PVD - dropped phone on foot 1 week ago and toe progressed to gangrene with purulence - XR with cellulitis, but no OM noted - MRI ordered - blood and wound cultures obtained - started on empiric IV abx - will continue - podiatry, vascular surgery, and ID consulted - appreciate recs - wound care consulted - holding anticoagulation - pain control - PT/OT when able # HTN/HLD/PVD - cont home meds # Hypothyroid - cont home meds # DM2 - ISS while admitted. Resume home regimen at discharge DVT: holding for possible surgical intervention by podiatry Disposition: Pt with progressing L 3rd toe gangrene with surrounding cellulitis.MRI to rule out OM. ID, vascular surgery and podiatry consulted. Cont empiric abx. Follow cultures. Pt/OT when able IP vs OBS Justification Based on differential dx, clinical care plan, and risk of adverse events, if untreated, in my clinical judgement this patient requires an acute care setting as: INPATIENT because of an expectation of an over 2 midnight stay. Estimated length of stay (# of days): 5 Time Spent With Patient (min): 45 Documented By: Casa Givens DO 01/28/23 190 5 Signed By: <Electronically signed by Casa Givens DO> 01/28/231917 [facility] Work Phone: 1(179) 183-902311-15-2023 Progress note Author Zaid Mon [facility] January 29, 2023 1:11pm Note Date/Time January 29, 2023 1:09pm [facility] [address] [place] [address] Vascular Surgery Progress Note Signed Patient: Ema Neff MR#: [id number] : 1965 Acct:[id number] Age/Sex: 58 / F Adm Date: 3 Loc: 4N Room: 3W1646-3 Type: ADM IN Attending Dr: Casa Givens DO Copies to: ~ Date of Service: 01/29/2023 Subjective Subjective Interval history: This pleasant patient was seen on rounds. She has a left foot wound. Her left second toe amputation site is still not healed. She now has a new area of gangrene of the left third toe. She lacks pedal pulses on clinical exam. The patient states that she excellently dropped her phone on her toe of her left foot and ever since then its been wound. Exam Physical Exam Vital Signs: Temp Pulse Resp BP Pulse Ox O2 Del Method O2 Flow Rate 98.2 F 80 11 L 124/69 96 Nasal Cannula 6 01/29/23 11:14 01/29/23 12:56 01/29/23 12:56 01/29/23 12:56 01/29/23 12:56 01/29/23 12:56 01/29/23 12:56 Narrative: Patient is awake alert and oriented no distress she is pleasant polite and cooperative. She had no palpable pedal pulse on the left foot. Her left secondtoe amputation site is still open and not completely healed. She has a new areaof gangrene on her left third toe. Const General: cooperative, comfortable and no acute distress Orientation: oriented x3 Objective Labs 01/29/23 05:11 01/29/23 05:11 Other Labs: Laboratory Results - last 24 hr 01/28/23 01/28/23 01/28/23 16:30 16:30 16:30 Corrected WBC 12.9 H Uncorrected WBC Count 12.9 H RBC 5.30 H Hgb 16.6 H Hct 49.8 H MCV 94.0 MCH 31.3 MCHC 33.3 RDW 14.3 Plt Count 315 MPV 7.0 Neut % (Auto) 73.6 Lymph % (Auto) 19.7 [place] % (Auto) 5.0 Eos % (Auto) 0.4 Baso % (Auto) 1.3 Nucleat RBC Rel Count 0.1 Neut # (Auto) 9.5 H Lymph # (Auto) 2.5 [place] # (Auto) 0.6 Eos # (Auto) 0.1 Baso # (Auto) 0.2 Monocyte Dist Width 20.03 H ESR 30 H PHA Creatinine Clear 85.52 Sodium 139 Potassium 4.3 Chloride 103 Carbon Dioxide 31.9 H Anion Gap 8.4 BUN 11 Creatinine 0.87 Est GFR (CKD-EPI) > 60.0 Glucose 98 POC Glucose POC Glucose Comment Lactic Acid 0.9 Calcium 9.1 Total Bilirubin 0.5 AST 17 ALT 10 Alkaline Phosphatase 73 C-Reactive Prot, Quant 0.5 Total Protein 7.3 Albumin 3.9 Globulin 3.4 Albumin/Globulin Ratio 1.1 01/28/23 01/28/23 01/29/23 21:26 23:07 05:11 Corrected WBC 12.6 H Uncorrected WBC Count 12.6 H RBC 4.73 Hgb 14.7 Hct 44.5 MCV 94.2 MCH 31.0 MCHC 32.9 RDW 14.2 Plt Count 288 MPV 7.0 Neut % (Auto) 65.5 Lymph % (Auto) 25.2 [place] % (Auto) 7.2 Eos % (Auto) 1.5 Baso % (Auto) 0.6 Nucleat RBC Rel Count 0.1 Neut # (Auto) 8.2 H Lymph # (Auto) 3.2 [place] # (Auto) 0.9 H Eos # (Auto) 0.2 Baso # (Auto) 0.1 Monocyte Dist Width ESR PHA Creatinine Clear Sodium Potassium Chloride Carbon Dioxide Anion Gap BUN Creatinine Est GFR (CKD-EPI) Glucose POC Glucose 69 61 POC Glucose Comment Lactic Acid Calcium Total Bilirubin AST ALT Alkaline Phosphatase C-Reactive Prot, Quant Total Protein Albumin Globulin Albumin/Globulin Ratio 01/29/23 01/29/23 01/29/23 05:11 05:24 05:54 Corrected WBC Uncorrected WBC Count RBC Hgb Hct MCV MCH MCHC RDW Plt Count MPV Neut % (Auto) Lymph % (Auto) [place] % (Auto) Eos % (Auto) Baso % (Auto) Nucleat RBC Rel Count Neut # (Auto) Lymph # (Auto) [place] # (Auto) Eos # (Auto) Baso # (Auto) Monocyte Dist Width ESR PHA Creatinine Clear 81.69 Sodium 138 Potassium 3.7 Chloride 104 Carbon Dioxide 28.7 Anion Gap 9.0 BUN 11 Creatinine 0.95 Est GFR (CKD-EPI) > 60.0 Glucose 56 L POC Glucose 57 L* 151 POC Glucose Comment Lactic Acid Calcium 8.3 L Total Bilirubin AST ALT Alkaline Phosphatase C-Reactive Prot, Quant Total Protein Albumin Globulin Albumin/Globulin Ratio 01/29/23 08:09 Corrected WBC Uncorrected WBC Count RBC Hgb Hct MCV MCH MCHC RDW Plt Count MPV Neut % (Auto) Lymph % (Auto) [place] % (Auto) Eos % (Auto) Baso % (Auto) Nucleat RBC Rel Count Neut # (Auto) Lymph # (Auto) [place] # (Auto) Eos # (Auto) Baso # (Auto) Monocyte Dist Width ESR PHA Creatinine Clear Sodium Potassium Chloride Carbon Dioxide Anion Gap BUN Creatinine Est GFR (CKD-EPI) Glucose POC Glucose 84 POC Glucose Comment Glu2: cleaned meter Lactic Acid Calcium Total Bilirubin AST ALT Alkaline Phosphatase C-Reactive Prot, Quant Total Protein Albumin Globulin Albumin/Globulin Ratio A&P - Vascular Assessment/Plan (1) Diabetes mellitus with foot ulcer: This pleasant patient has a new lesion on her left second toe which is gangrenous. She has nonpalpable pedal pulses. I am recommending a left leg angiogram for diagnostic and possible therapeutic purposes. She also has a known bypass of her left anterior tibial peroneal artery done about a year ago by myself. We will also investigate and see if that is patent. The. The purpose of that bypass was to take advantage of the better peroneal runoff at the ankle level in the foot since her AT occluded distally. This patient remains at high risk for limb loss. The risks and benefits were explained as well as medical surgical tenderness. We also discussed potential complications as well as the management. She is well aware of these and she understands and agrees to the procedure today. Consent was obtained. She has had this multipletimes in the past. Code(s): E11.621 - Type 2 diabetes mellitus with foot ulcer; L97.509 - Non-pressure chronic ulcer of other part of unspecified foot with unspecified severity Status: Acute Documented By: Zaid Mon MD 01/29/23 1305 Signed By: <Electronically signed by Zaid Mon MD> 01/29/23 1311 [facility] Work Phone: 1(243) 169-966310-20-2023 NoteHNO ID: [id number] Author: Antwon Goetz MD Service: ? Author Type: Physician Type: Progress Notes Filed: 01/01/2023 1:21 PM Note Text: Central retinal vein occlusion with macular edema, right eye - S/P Avastin (last 12/04/22) (4 weeks ago) - Improved after decreasing interval. 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 I have seen and examined this patient. I have discussed the case and the management of this patient's care with the Resident, if applicable. I also have reviewed and agree with the assessment and plan as stated above and agree with all of its relevant components. Antwon Goetz MD Vitreoretinal Surgery [facility] [place]-20-20[place] History of Present illness Narrative* Antwon Goetz MD - 01/01/2023 12:30 PM EDT Central retinal vein occlusion with macular edema, right eye - S/P Avastin (last 12/04/22) (4 weeks ago) - Improved after decreasing interval. 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 I have seen and examined this patient. I have discussed the case and the management of this patient's care with the Resident, if applicable. I also have reviewed and agree with the assessment and plan as stated above and agree with all ofits relevant components. Antwon Goetz MD Vitreoretinal Surgery [facility] [place] NoteHNO ID: [id number] Author: Antwon Goetz MD Service: ? Author Type: Physician Type: Progress Notes Filed: 12/04/2022 1:36 PM Note Text: Central retinal vein occlusion with macular edema, right eye - S/P Avastin (last 09/30/22) (9 weeks ago) - Today with stable fluid. Vision has decreased to count fingers - Avastin right eye today - return to clinic 1 month for DTI Avastin right eye. 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 I have seen and examined this patient. I have discussed the case and the management of this patient's care with the Resident, if applicable. I also have reviewed and agree with the assessment and plan as stated above and agree with all of its relevant components. Antwon Goetz MD Vitreoretinal Surgery [facility]09-22-2023 History of Present illness Narrative* Antwon Goetz MD - 12/04/2022 12:45 PM EDT Central retinal vein occlusion with macular edema, right eye - S/P Avastin (last 09/30/22) (9 weeks ago) - Today with stable fluid. Vision has decreased to count fingers - Avastin right eye today - return to clinic 1 month for DTI Avastin right eye. 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 I have seen and examined this patient. I have discussed the case and the management of this patient's care with the Resident, if applicable. I also have reviewed and agree with the assessment and plan as stated above and agree with all ofits relevant components. Antwon Goetz MD Vitreoretinal Surgery [facility] [place] Evaluation note* Encounter Date Diagnosis Assessment Notes Treatment Notes Treatment Clinical Notes Oct, Diabetes mellitus due to underlying condition with foot ulcer (ICD-10 - E08.621) Oct, Non-pressure chronic ulcer of other part of right foot with fat layer exposed (ICD-10 - L97.512) This patient is doing okay from our standpoint. I do believe that the there is no concern for hematoma in the left leg. The bypass is patent. She is getting as much blood supply she can get to heal the wounds. Unfortunately she has severe microvascular disease due to diabetes of the forefoot. Some weight loss would definitely help this patient. Surgical debridement might also help the wounds because they now appear to have a chronic state about them. I would consider converting these wounds to her acute wounds. Oct, Other Patient was concerned with palpable lump on the lower left leg which appears to be some scarring by physical exam and ultrasound findings. She does not have a DVT. There are no areas of concern here. She has had extensive endovascular intervention bilaterally as well as left leg bypass now. Unfortunately she remains with severe microvascular disease of bilateral feet from her diabetes. She continues to struggle to heal the wounds on her distal feet from toe amputation. She continues to follow with podiatry routinely. We will continue to follow along with them in her wound healing process. She is due for a left leg [facility] Other 07-19-2023 NoteHNO ID: [id number] Author: Antwon Goetz MD Service: ? Author Type: Physician Type: Progress Notes Filed: 09/30/2022 9:33 AM Note Text: Central retinal vein occlusion, right eye - VA at start of therapy 20/250 - Secondary to HTN, DM2, HLD - OCT: Marked macular edema and SRF - Treatment alternatives reviewed including observation, laser photocoagulation, steroid injection (triamcinolone or dexamethasone implant) and intravitreal anti-VEGF therapy (including Avastin, Lucentis and Eylea); as well as off-label use of Avastin. - Discussed R/B/A of intravitreal anti-VEGF injections right eye. Patient stated an awareness of the issues and wished to proceed with treatment. - Risk factors including hypertension, diabetes mellitus, glaucoma and others reviewed with patient. The importance of tight control of blood pressure, blood sugar, and intraocular pressure as clinically indicated discussed - Avastin injected right eye today - return to clinic 1 month for DTI Avastin OD Hypertensive retinopathy both eyes - Control BP - F/U with primary care physician Non-insulin dependent Diabetes Mellitus without Diabetic Retinopathy, both eyesNo results found for: HBA1C - BP/BS/Lipid control and regular monitoring with exams reviewed Pseudophakia, both eyes - Intraocular lens well-centered - Posterior capsule clear - Plan: observe Follow Up: 1 month DTI Avastin right eye I have confirmed and edited as necessary the relevant ophthalmic history, ROS, and exam findings as obtained by others. I have seen and examined this patient. I have discussed the case and the management of this patient's care with the Resident, if applicable. I also have reviewed and agree with the assessment and plan as stated above and agree with all of its relevant components. Antwon Goetz MD Vitreoretinal Surgery [facility] [place] Evaluation note* Encounter Date Diagnosis Assessment Notes Treatment Notes Treatment Clinical Notes Apr, PAD (peripheral artery disease) (ICD-10 - I73.9) I did review the arterial graft duplex on her bypass of left lower extremity and her ABIs. Her ABIs are normal. Her wound is healing. The operative incisional site is completely healed at this point. I am pleased with her care we will see her back in 3 months for continued surveillance of her bypass. All her questions were addressed she understands agrees with plan. [facility] Other 10-18-2022 Progress note Author AUTUMN wallis [facility] December 30, 2021 1:54pm Note Date/Time December 30, 2021 1 :54pm [facility] [address] [place] [address] Podiatry Progress Note Signed Patient: Ema Neff MR#: [id number] : 1965 Acct:[id number] Age/Sex: 56 / F Adm Date: 2 Loc: Room: [address] [place] [address] Type: ADM IN Attending Dr: Fredy Patricia MD Copies to: ~ Subjective Subjective Date of Service: Date of Service: 12/30/2021 Time of Service: 13:50 Narrative: Ms. Neff is a 56 year old female who is typically followed by my partner Dr. Mehta. She has recently undergone second left toe amputation and he continues to follow for wounds at the amputation site, distal left hallux and medial left midfoot. Patient recently noticed increasing pain and the redness surrounding the wounds as well as the wound on the pretibial area of the left lower extremity. There is a wound VAC applied to the pretibial wound due to dehiscence previous revascularization surgery. Patient has history of peripheral arterial disease with successful recent vascular intervention and diabetes with peripheral neuropathy and history of chronic ulcerations of both feet. She has history of chronic pain associated with her back which apparentlyhas made pain control in the lower extremities difficult at times. She denies any fever or chills. Patient states that her pain continues to improve in the right foot. Exam Physical Exam Vital Signs: Temp Pulse Resp BP Pulse Ox O2 Del Method 98.0 F 81 17 142/83 H 98 Room Air 12/30/21 12:00 12/30/21 12:00 12/30/21 12:00 12/30/21 12:00 12/30/21 12:00 12/30/21 12:00 Narrative: General: Patient is alert oriented x3 aware of her surroundings in no acute distress Vascular: DP pulse trace and PT pulses 0/4 and temperature gradient is warm to cool. No significant edema noted today. Neurological: Absent vibratory sensation at the first MP joint bilaterally. Decreased light touch sensation distal to the midfoot bilaterally Dermatological: Skin is thinning with diminished hair growth bilaterally. No hyperkeratotic lesions are noted. Patient has history of second toe amputationsbilaterally. Ulcerations are noted as described below Musculoskeletal: +5/5 muscle strength bilaterally, mild hammertoe deformities noted bilaterally Podiatric: Ulcerated lesions are noted on the left foot. Lesion on the medial left foot measures 2.5 x 0.5 cm in diameter and 0.2 cm in depth. The base appears to be granular with no evidence of sinus tracts or undermining. There is a lesion on the distal left hallux which measures 1.5 x 1.0 cm in diameter and is very superficial apparently being caused by a blistered lesion. Amputation site of the second left toe demonstrates an ulcer 2.5 x 2.0 cm in diameter and 0.2 cm in depth. The base of this wound is mixed granular and fibrotic. No sinus track or undermining noted here. Local erythema surrounding the wounds continues to improve but is still present. Only the wound at the recent second left toe amputation site remains tender, and patient reports the symptoms are improving with this wound is well. The painful sensitivity of her wounds has been something she has been dealing with for an extended period of time. There is wound VAC in place on the pretibial area left from previous wound dehiscence. Dr. Mon has evaluated this wound and notes that it is granulating very nicely. Patient is afebrile and her white blood cell count remains normal. Culture and sensitivity revealed Pseudomonas sensitive to cefepime. X-rays have been taken and no evidence of subcutaneous air or osteomyelitis was noted. MRI study has been completed now and no evidence of subcutaneous abscess was noted. There is no evidence of osteomyelitis noted. Assessment/Plan (1) Diabetic foot ulcer: Assessment/Problem Details: Completed evaluation. Discussed treatment options with the patient at length. At this point wounds of the left foot continue to improve with decreased erythema and pain. MRI study is negative for osteomyelitis or subcutaneous abscesses. Patient appears much more comfortable than when we first met at her initial consultation. May consider adding nifedipine gel which is compounded [facility] to her treatment regimen to improve blood flow at the local level surrounding the left foot wounds. I will discuss this with Dr. Mehta who will be following up with the patient upon her discharge which may happen as early astoday. The patient is cleared from a podiatric standpoint for discharge with continued antibiotic therapy as recommended by Dr. Sykes and current home care dressing changes as previously ordered by Dr. Mehta. Patient is advised to follow-up with Dr. Mon as directed as well. Code(s): E11.621 - Type 2 diabetes mellitus with foot ulcer; L97.509 - Non-pressure chronic ulcer of other part of unspecified foot with unspecified severity (2) Ulcer of left foot with fat layer exposed: Code(s): L97.522 - Non-pressure chronic ulcer of other part of left foot with fat layer exposed (3) Type 2 diabetes mellitus with peripheral neuropathy: Code(s): E11.42 - Type 2 diabetes mellitus with diabetic polyneuropathy (4) PAD (peripheral artery disease): Code(s): I73.9 - Peripheral vascular disease, unspecified (5) Status post amputation of toe of left foot: Code(s): Z89.422 - Acquired absence of other left toe(s) (6) Status post amputation of toe of right foot: Code(s): Z89.421 - Acquired absence of other right toe(s) Documented By: Ayan Deluna DPM, AUTUMN 1359 Signed By: <Electronically signed by TERESA Deluna> 12/30/21 2753 [facility] Work Phone: [phone] Hospital Discharge instructionsAmbulatory Orders* Initiate Home Health Time Frame: 12/30/21, Location: Determined By Patient Additional Instructions Monitor glucose levels as before. Home health to manage: -RN to eval and treat -Monitor VS per protocol -Fall precautions -Perform podiatry assessments -Monitor for increased signs of infection -Change dressings daily: *Bilateral Feet Wounds: Cleans with NS, pat dry, apply hydrogel to wound beds on left dorsal foot and right 2nd toe amp, apply юлия care HANSON to left 2nd toe amp site, top wounds with vasiline gauze, super sponges and secure adaptic and gauze. Wrap with kerlix. -Monitor FSBS per protocol -Assist with medication management and education -Change wound vac every other day: *Left lower leg ulcer- Clean with Vashe and pat dry. Skin prep the twin wound. Border wound with vac drape. Apply Black foam to the wound bed and add track pad. Secure with vac drape. *Wound vac pump- [employer] *Settings: Continuous 125 mmHg pressure *Change on Wed, , Wed and [facility] Work Phone: [phone] Progress note Author Rolando Sykes [facility] December 30, 2021 9:02am Note Date/Time December 30, 2021 9 :02am [facility] [address] [place] [address] Infect. Disease Progress Note Signed Patient: Ema Neff MR#: [id number] : 1965 Acct:[id number] Age/Sex: 56 / F Adm Date: 2 Loc: Room: [address] [place] [address] Type: ADM IN Attending Dr: Fredy Patricia MD Copies to: ~ Date of Service: 12/30/2021 Subjective Interval history: Patient's main complaint is ongoing foot discomfort. Overnight afebrile. Tolerating antibiotics intravenously at this time. Denies nausea vomiting or diarrhea. Exam Physical Exam Vital Signs: Temp Pulse Resp BP Pulse Ox O2 Del Method 98 F 82 18 144/84 H 96 Room Air 12/29/21 20:44 12/30/21 08:00 12/30/21 08:00 12/30/21 08:00 12/30/21 08:00 12/30/21 08:00 Const General: cooperative, comfortable and no acute distress Nutritional Appearance: average body habitus Orientation: oriented x3 HEENT Head: normal to inspection Eyes General: appearance normal, both eyes and all related structures Neck Neck: normal visual inspection Chest Chest palpation & inspection: normal inspection of the chest Resp Effort & Inspection: normal respiratory effort Cardio Palpation: normal PMI Rate: regular rate Rhythm: regular rhythm GI Inspection: normal to inspection Palpation: soft and nontender Auscultation: normal bowel sounds Skin Other: Left anterior bella with VAC; surrounding erythema Left foot wrapped and not taken down Neuro General: patient oriented x3 Objective Labs CBC/BMP: CBC, BMP 12/30/21 12/30/21 06:16 06:16 Corrected WBC 8.8 Uncorrected WBC Count 8.8 RBC 4.94 Hgb 14.4 Hct 45.1 Plt Count 319 Sodium 137 Potassium 3.9 Chloride 102 Carbon Dioxide 27.5 Anion Gap 11.4 BUN 13 Creatinine 0.91 Calcium 8.7 Labs: 12/30/21 06:16 BUN 13 Creatinine 0.91 Microbiology Microbiology: Microbiology - Results from entire visit 12/26/21 17:16 Blood - Left Wrist Blood Culture - Preliminary No Growth 3 Days 12/26/21 17:14 Blood - Left Forearm Blood Culture - Preliminary No Growth 3 Days 12/26/21 17:20 Foot,Left - Drainage Superficial Wound Culture - Final Pseudomonas aeruginosa 12/26/21 18:51 Nasopharyngeal SARS-CoV-2, Influenza & RSV (PCR) - Final 12/26/21 18:51 Nasal SARS Antigen (LFIA) - Final Additional Results Results Comment: MRI: IMPRESSION: ? PREVIOUS AMPUTATION OF THE SECOND TOE. ? CONTINUED SKIN WOUND AT THE AMPUTATION SITE, WITHOUT OBVIOUS DEEP SOFT TISSUE ABSCESS. ? NO DEVELOPING BONY DESTRUCTION OR BONE SIGNAL CHANGES TO SUGGEST OSTEOMYELITIS. Allergies and Medications Allergies and Active Meds Allergies hydrocodone [From Vicodin] Allergy (Verified 12/26/21 15:54) Hallucinating Steroid Injection Allergy (Uncoded 12/26/21 15:54) Swelling Active Medications Amitriptyline HCl (Amitriptyline 50 Mg Tablet) 50 mg PO HS PAULINO Stop: 12/26/22 22:44 Last Admin: 12/29/21 22:22 Dose: Not Given Aspirin (Aspirin 81 Mg Tablet.) 81 mg PO DAILY PAULINO Stop: 12/27/22 08:59 Last Admin: 12/30/21 08:20 Dose: 81 mg Atorvastatin Calcium (Atorvastatin 40 Mg Tablet) 40 mg PO QHS [facility] Stop: 12/26/22 22:44 Last Admin: 12/29/21 22:22 Dose: Not Given Bisacodyl (Bisacodyl 5 Mg Tablet.Dr) 10 mg PO DAILY PRN PRN Reason: Constipation Stop: 12/26/22 20:55 Clopidogrel Bisulfate (Clopidogrel Bisulfate 75 Mg Tablet) 75 mg PO DAILY [facility] Stop: 12/27/22 08:59 Last Admin: 12/30/21 08:20 Dose: 75 mg Cyclobenzaprine HCl (Cyclobenzaprine 10 Mg Tablet) 10 mg PO QHS PRN PRN Reason: Muscle Spasm Stop: 12/26/22 20:54 Last Admin: 12/29/21 20:45 Dose: 10 mg Dextrose (Dextrose 50% In Water 25 Gm/50 Ml Syringe) 0 gm IV-PUSH PRN PRN PRN Reason: Hypoglycemia Stop: 12/26/22 21:06 Dextrose (Dextrose 50% In Water 25 Gm/50 Ml Syringe) 0 gm IV-PUSH PRN PRN PRN Reason: Hypoglycemia Stop: 12/29/22 12:41 Enoxaparin Sodium (Enoxaparin 40 Mg/0.4 Ml Syringe) 40 mg SUBCUT DAILY@1000 [facility] Stop: 12/29/22 09:59 Last Admin: 12/29/21 10:35 Dose: Not Given Fluticasone Propionate (Fluticasone Propionate Greenbush 120 Greenbush/16 Gm Bottle) 1 spray INTRANASAL QHS PRN PRN Reason: Nasal Congestion Stop: 12/26/22 20:54 Gabapentin (Gabapentin 800 Mg Tablet) 800 mg PO QID [facility] Stop: 12/26/22 22:44 Last Admin: 12/30/21 08:20 Dose: 800 mg Glucose (Dextrose 40% Gel 15 Gm Tube) 0 gm PO PRN PRN PRN Reason: Hypoglycemia Stop: 12/26/22 21:06 Glucose (Dextrose 40% Gel 15 Gm Tube) 0 gm PO PRN PRN PRN Reason: Hypoglycemia Stop: 12/29/22 12:41 Hydromorphone HCl (Hydromorphone 0.5 Mg/0.5 Ml Syringe) 1 mg IV-PUSH Q4H PRN PRN Reason: Pain Scale 8 - 10 Last Admin: 12/30/21 06:09 Dose: 1 mg Vancomycin HCl (Vancomycin) 0.75 gm in 250 mls @ 250 mls/hr IV Q12H [facility] Last Admin: 12/30/21 08:16 Dose: 250 mls/hr Cefepime HCl (Maxipime) 2 gm in 50 mls @ 100 mls/hr IV Q8H [facility] Last Admin: 12/30/21 06:09 Dose: 100 mls/hr Insulin Aspart (Insulin Aspart 300 Units/3 Ml Insuln.Pen) 0 units SUBCUT TID.WM.HS [facility]; Protocol Stop: 12/26/22 21:59 Last Admin: 12/30/21 08:16 Dose: Not Given Levothyroxine Sodium (Levothyroxine 150 Mcg Tablet) 150 mcg PO DAILY@0630 [facility] Stop: 12/27/22 06:29 Last Admin: 12/30/21 06:08 Dose: 150 mcg Losartan Potassium (Losartan 50 Mg Tablet) 50 mg PO QAM [facility] Stop: 12/27/22 08:59 Last Admin: 12/30/21 08:20 Dose: 50 mg Meloxicam (Meloxicam *Nf* 7.5 Mg Tablet) 15 mg PO DAILY [facility] Stop: 12/27/22 08:59 Last Admin: 12/30/21 08:19 Dose: 15 mg Metoprolol Succinate (Metoprolol Succinate 50 Mg Tab.Er.24h) 50 mg PO DAILY [facility] Stop: 12/27/22 08:59 Last Admin: 12/30/21 08:20 Dose: 50 mg Nystatin (Nystatin 100,000 Unit/Gm Oint 15 Gm Tube) 1 applic TOPICAL TID PRN PRN Reason: rash Stop: 12/26/22 20:54 Ondansetron HCl (Ondansetron 4 Mg/2 Ml Vial) 4 mg IV-PUSH Q8H PRN PRN Reason: Nausea And Vomiting Stop: 12/26/22 20:55 Oxycodone/Acetaminophen (Oxycodone/Acetaminophen 5-325 Mg Tablet) 4 tab PO BID [facility] Last Admin: 12/30/21 08:20 Dose: 4 tab Sennosides (Sennosides 8.6 Mg Tablet) 2 tab PO BID PRN PRN Reason: constipation Stop: 12/26/22 20:54 Last Admin: 12/28/21 21:23 Dose: 2 tab Sodium Chloride (Sodium Chloride 0.9 % 10 Ml Syringe) 0 ml IV-PUSH PRN PRN PRN Reason: Flush Stop: 12/26/22 15:52 Last Admin: 12/30/21 06:10 Dose: 10 ml Vancomycin HCl (Vancomycin - Pharmacy Dosing 1 Each Miscell) 1 each IV ONCE PRN; Protocol PRN Reason: ZZ.Pharmacy Consult Vitamin E/Lidocaine/Aloe/Collagen (Vit E/Lidocaine/Aloe/Collagen 2% Gel 85 Gm Tube) 1 applic TOPICAL DAILY PAULINO Stop: 12/30/22 08:59 Last Admin: 12/30/21 08:21 Dose: 1 applic A&P - Infectious Disease Assessment/Plan (1) Status post amputation of toe of left foot: Code(s): Z89.422 - Acquired absence of other left toe(s) Status: Acute (2) Left leg cellulitis: Code(s): L03.116 - Cellulitis of left lower limb Status: Acute (3) Wound infection: Code(s): T14.8XXA - Other injury of unspecified body region, initial encounter; L08.9 - Local infection of the skin and subcutaneous tissue, unspecified Status: Acute Plan Maintain Vanc/Cefepime. MRI without obvious abscess or changes suggestive of osteomyelitis. New culture with Pseudomonas for which had only light growth. Wound care to continue per vascular and podiatry. Anticipating Levaquin on discharge. Documented By: Rolando Sykes MD 12/30/21 0858 Signed By: <Electronically signed by MD Rolando Sykes> 12/30/21 0902 [facility] Work Phone: [phone] Progress note Author Fredy Patricia [facility] December 30, 2021 2:19am Note Date/Time December 29, 2021 1 2:45pm [facility] [address] [place] [address] Hospitalist Progress Note Signed Patient: Ema Neff MR#: [id number] : 1965 Acct:[id number] Age/Sex: 56 / F Adm Date: 2 Loc: Room: [address] [place] [address] Type: ADM IN Attending Dr: Fredy Patricia MD Copies to: ~ Date of Service: 12/29/2021 Subjective Subjective Narrative: Hospitalist Progress Note ASSESSMENT AND PLAN: DM with diabetic Foot Infection PAD Agree with Abx ID/Podiatry/Vascular input appreciated MRI report pending Chronic Conditions: Unless mentioned Above, All chronic conditions are stable. home medications/treatment if any were continued DVT Px : Addressed Deposition: To be determined CC: Follow up for the conditions above. INTERVAL HPI: As Above, Pt resting in bed. feeling the same. ROS: Denies any chest pain, SOB Plan of care Discussed with: the medical team, the patient Exam Physical Exam Vital Signs: Temp Pulse Resp BP Pulse Ox O2 Del Method 36.4 C L 80 18 105/66 99 Room Air 12/29/21 04:00 12/29/21 04:00 12/29/21 04:00 12/29/21 04:00 12/29/21 04:00 12/29/21 04:00 Narrative: GEN: NAD, Cooperative NECK: ? JVD, supple LUNGS: CTA CV: nl S1 S2; no M/R/G ABD: Soft, ND, NT, + BS, ? rebound, ? guarding, ? HSM EXT: peripheral edema, right foot dressed with wound vac. No calf muscle tenderness. multiple abrasions on LE NEURO: ? FND. PSYCH: nl affect, AOx3 Objective Lab Results CBC & Chem 7: 12/29/21 06:42 12/29/21 06:42 Microbiology Results Microbiology 12/26/21 17:14 Blood - Left Forearm Blood Culture - Preliminary No Growth 2 Days 12/26/21 17:16 Blood - Left Wrist Blood Culture - Preliminary No Growth 2 Days 12/26/21 17:20 Foot,Left - Drainage Superficial Wound Culture - Final Pseudomonas aeruginosa Meds Allergies and Active Meds Allergies hydrocodone [From Vicodin] Allergy (Verified 12/26/21 15:54) Hallucinating Steroid Injection Allergy (Uncoded 12/26/21 15:54) Swelling Active Meds: Active Medications Generic Name Dose Route Start Last Admin Trade Name Freq PRN Reason Stop Dose Admin Amitriptyline HCl 50 mg 12/26/21 22:45 12/28/21 21:23 Amitriptyline 50 Mg Tablet PO 12/26/22 22:44 50 mg HS PAULINO Administration Aspirin 81 mg 12/27/21 09:00 12/29/21 08:39 Aspirin 81 Mg Tablet. PO 12/27/22 08:59 81 mg DAILY PAULINO Administration Atorvastatin Calcium 40 mg 12/26/21 22:45 12/28/21 21:23 Atorvastatin 40 Mg Tablet PO 12/26/22 22:44 40 mg QHS PAULINO Administration Bisacodyl 10 mg 12/26/21 20:56 Bisacodyl 5 Mg Tablet. PO 12/26/22 20:55 DAILY PRN Constipation Clopidogrel Bisulfate 75 mg 12/27/21 09:00 12/29/21 08:39 Clopidogrel Bisulfate 75 Mg Tablet PO 12/27/22 08:59 75 mg DAILY PAULINO Administration Cyclobenzaprine HCl 10 mg 12/26/21 20:55 12/28/21 21:24 Cyclobenzaprine 10 Mg Tablet PO 12/26/22 20:54 10 mg QHS PRN Administration Muscle Spasm Dextrose 0 gm 12/26/21 21:07 Dextrose 50% In Water 25 Gm/50 Ml Syringe IV-PUSH 12/26/22 21:06 PRN PRN Hypoglycemia Enoxaparin Sodium 40 mg 12/29/21 10:00 12/29/21 10:35 Enoxaparin 40 Mg/0.4 Ml Syringe SUBCUT 12/29/22 09:59 Not Given DAILY@1000 PAULINO Fluticasone Propionate 1 spray 12/26/21 20:55 Fluticasone Propionate Greenbush 120 Greenbush/16 Gm Bottle INTRANASAL 12/26/22 20:54 QHS PRN Nasal Congestion Gabapentin 800 mg 12/26/21 22:45 12/29/21 08:39 Gabapentin 800 Mg Tablet PO 12/26/22 22:44 800 mg QID PAULINO Administration Glucose 0 gm 12/26/21 21:07 Dextrose 40% Gel 15 Gm Tube PO 12/26/22 21:06 PRN PRN Hypoglycemia Hydromorphone HCl 1 mg 12/28/21 13:44 12/29/21 10:25 Hydromorphone 0.5 Mg/0.5 Ml Syringe IV-PUSH 1 mg Q4H PRN Administration Pain Scale 8 - 10 Cefepime HCl 2 gm in 50 mls @ 100 mls/hr 12/27/21 01:00 12/29/21 01:07 Maxipime IV 100 mls/hr Q12H PAULINO Administration Vancomycin HCl 0.75 gm in 250 mls @ 250 mls/hr 12/29/21 08:00 12/29/21 09:38 Vancomycin IV Infused Q12H PA[facility] Infusion Insulin Aspart 0 units 12/26/21 22:00 12/29/21 12:08 Insulin Aspart 300 Units/3 Ml Insuln.Pen SUBCUT 12/26/22 21:59 Not Given TID.WM.HS [facility] Protocol Levothyroxine Sodium 150 mcg 12/27/21 06:30 12/29/21 06:36 Levothyroxine 150 Mcg Tablet PO 12/27/22 06:29 150 mcg DAILY@0630 PAULINO Administration Losartan Potassium 50 mg 12/27/21 09:00 12/29/21 08:39 Losartan 50 Mg Tablet PO 12/27/22 08:59 50 mg QAM PAULINO Administration Meloxicam 15 mg 12/27/21 09:00 12/29/21 10:26 Meloxicam *Nf* 7.5 Mg Tablet PO 12/27/22 08:59 15 mg DAILY PAULINO Administration Metoprolol Succinate 50 mg 12/27/21 09:00 12/29/21 08:39 Metoprolol Succinate 50 Mg Tab.Er.24h PO 12/27/22 08:59 50 mg DAILY PAULINO Administration Nystatin 1 applic 12/26/21 20:55 Nystatin 100,000 Unit/Gm Oint 15 Gm Tube TOPICAL 12/26/22 20:54 TID PRN rash Ondansetron HCl 4 mg 12/26/21 20:56 Ondansetron 4 Mg/2 Ml Vial IV-PUSH 12/26/22 20:55 Q8H PRN Nausea And Vomiting Oxycodone/Acetaminophen 4 tab 12/27/21 11:00 12/29/21 08:39 Oxycodone/Acetaminophen 5-325 Mg Tablet PO 4 tab BID PAULINO Administration Sennosides 2 tab 12/26/21 20:55 12/28/21 21:23 Sennosides 8.6 Mg Tablet PO 12/26/22 20:54 2 tab BID PRN Administration constipation Sodium Chloride 0 ml 12/26/21 15:53 12/29/21 10:25 Sodium Chloride 0.9 % 10 Ml Syringe IV-PUSH 12/26/22 15:52 10 ml PRN PRN Administration Flush Vancomycin HCl 1 each 12/26/21 21:26 Vancomycin - Pharmacy Dosing 1 Each Miscell IV ONCE PRN ZZ.Pharmacy Consult Protocol A&P - Hospitalist Assessment/Plan (1) Diabetic infection of left foot: (2) PAD (peripheral artery disease): (3) Diabetes mellitus: Plan . Documented By: Fredy Patricia MD 12/29/21 1243 Signed By: <Electronically signed by Fredy Patricia MD> 12/30/21 021 [facility] Work Phone: [phone] 523-483210-17-2022 Progress note Author CWSacha wallis [facility] December 29, 2021 8:30pm Note Date/Time December 29, 2021 8 :30pm [facility] [address] [place] [address] Podiatry Progress Note Signed Patient: Ema Neff MR#: [id number] : 1965 Acct:[id number] Age/Sex: 56 / F Adm Date: 2 Loc: Room: [address] [place] [address] Type: ADM IN Attending Dr: Fredy Patricia MD Copies to: ~ Subjective Subjective Date of Service: Date of Service: 12/29/2021 Time of Service: 20:19 Narrative: Ms. Neff is a 56 year old female who is typically followed by my partner Dr. Mehta. She has recently undergone second left toe amputation and he continues to follow for wounds at the amputation site, distal left hallux and medial left midfoot. Patient recently noticed increasing pain and the redness surrounding the wounds as well as the wound on the pretibial area of the left lower extremity. There is a wound VAC applied to the pretibial wound due to dehiscence previous revascularization surgery. Patient has history of peripheral arterial disease with successful recent vascular intervention and diabetes with peripheral neuropathy and history of chronic ulcerations of both feet. She has history of chronic pain associated with her back which apparentlyhas made pain control in the lower extremities difficult at times. She denies any fever or chills. Patient states that her pain is now much better relative to yesterday Exam Physical Exam Vital Signs: Temp Pulse Resp BP Pulse Ox O2 Del Method 97.5 F L 80 18 105/66 99 Room Air 12/29/21 04:00 12/29/21 04:00 12/29/21 04:00 12/29/21 04:00 12/29/21 04:00 12/29/21 08:00 Narrative: General: Patient is alert oriented x3 aware of her surroundings in no acute distress Vascular: DP pulse trace and PT pulses 0/4 and temperature gradient is warm to cool. No significant edema noted today. Neurological: Absent vibratory sensation at the first MP joint bilaterally. Decreased light touch sensation distal to the midfoot bilaterally Dermatological: Skin is thinning with diminished hair growth bilaterally. No hyperkeratotic lesions are noted. Patient has history of second toe amputationsbilaterally. Ulcerations are noted as described below Musculoskeletal: +5/5 muscle strength bilaterally, mild hammertoe deformities noted bilaterally Podiatric: Ulcerated lesions are noted on the left foot. Lesion on the medial left foot measures 2.5 x 0.5 cm in diameter and 0.2 cm in depth. The base appears to be granular with no evidence of sinus tracts or undermining. There is a lesion on the distal left hallux which measures 1.5 x 1.0 cm in diameter and is very superficial apparently being caused by a blistered lesion. Amputation site of the second left toe demonstrates an ulcer 2.5 x 2.0 cm in diameter and 0.2 cm in depth. The base of this wound is mixed granular and fibrotic. No sinus track or undermining noted here. Local erythema surrounding the wounds of the foot appears to be resolving. Only the wound at the recent second left toe amputation site remains tender, and patient reports the symptomsare improving and this wound is well. The painful sensitivity of her wounds hasbeen something she has been dealing with for an extended period of time. There is wound VAC in place on the pretibial area left from previous wound dehiscence. Dr. Mon has evaluated this wound and notes that it is granulating very nicely. Patient is afebrile and her white blood cell count remains normal. Culture and sensitivity revealed Pseudomonas sensitive to cefepime. X-rays havebeen taken and no evidence of subcutaneous air or osteomyelitis was noted. MRI study has been completed now and no evidence of subcutaneous abscess was noted. There is no evidence of osteomyelitis noted. Assessment/Plan (1) Diabetic foot ulcer: Assessment/Problem Details: Completed evaluation. Discussed treatment options with the patient at length. At this point wounds of the left foot continue to improve with decreased erythema and pain. MRI study is negative for osteomyelitis or subcutaneous abscesses. It does not appear that surgical intervention will be needed at thistime and we can continue current wound care treatment. May consider adding nifedipine gel which is compounded at [facility] to her treatment regimen to improve blood flow at the local level surrounding the left foot wounds. I will discuss this with Dr. Mehta who will be following up with the patient upon her discharge. If the patient continues to improve she will be cleared from a podiatric standpoint for discharge with continued antibiotic therapy as recommended by Dr. Sykes and current home care dressing changes as previously ordered by Dr. Mehta. Code(s): E11.621 - Type 2 diabetes mellitus with foot ulcer; L97.509 - Non-pressure chronic ulcer of other part of unspecified foot with unspecified severity (2) Ulcer of left foot with fat layer exposed: Code(s): L97.522 - Non-pressure chronic ulcer of other part of left foot with fat layer exposed (3) Type 2 diabetes mellitus with peripheral neuropathy: Code(s): E11.42 - Type 2 diabetes mellitus with diabetic polyneuropathy (4) PAD (peripheral artery disease): Code(s): I73.9 - Peripheral vascular disease, unspecified (5) Status post amputation of toe of left foot: Code(s): Z89.422 - Acquired absence of other left toe(s) (6) Status post amputation of toe of right foot: Code(s): Z89.421 - Acquired absence of other right toe(s) Documented By: Ayan Deluna DPM, AUTUMN 2018 Signed By: <Electronically signed by TERESA Deluna> 12/29/212029 [facility] Work Phone: [phone] 294-746610-17-2022 Consult note Author Zaid Mon [facility] December 29, 2021 3:58pm Note Date/Time December 29, 2021 1 :53pm [facility] [address] [place] [address] Vascular Surgery Consult Note Signed Patient: Ema Neff MR#: [id number] : 1965 Acct:[id number] Age/Sex: 56 / F Adm Date: 2 Loc: Room: 6J9284-5 Type: ADM IN Attending Dr: Fredy Patricia MD Copies to: Alejandra Middleton, MD Zaid Rey MD Robert L Hill, MD~ HPI Consult HPI Reason for consult: Left leg wound History of present illness: 56-year-old female who is well-known to our office. She has a past medical history of diabetes and diabetic wound status post left anterior tibial to peroneal artery bypass in October. This was complicated by postop infection and subsequently treated with IV antibiotics, I&D of the wound and application of wound VAC to the left anterior lower leg. The wound VAC has been maintained and managed by home health and change 3 times a week. She has suffered a few episodes of cellulitis throughout this time with need for IV antibiotics. Once again she has presented to the hospital with recurrent erythema and increased pain to the lower left leg wound. She is being followed by infectious disease. She denies any fevers or chills. cc:: CC: Fredy Patricia MD Data of Consult Consult date: 12/29/2021 Requesting Physician: Fredy Patricia MD Review of Systems Review of Systems All other systems reviewed & are negative unless noted below or in HPI PMFSH Vaccinated for COVID-19?: Yes Medical History Anxiety Arthritis Back pain Bronchitis Cellulitis DDD (degenerative disc disease) Depression Diabetes Diabetes mellitus, type 2 DJD (degenerative joint disease) Eczema GERD (gastroesophageal reflux disease) since being dx with thyroid problems Gout History of amputation of toe History of CVA in adulthood rt sided weakness Hyperlipidemia Hypertension Hyperthyroidism Menopause Neuropathy Osteoporosis Sleep apnea no machine Smoker quit 03/2021 Tachycardia Ulcerative colitis Surgical History History of carpal tunnel surgery of right wrist History of cholecystectomy History of endometrial ablation History of surgery on wrist carpal tunnel and ulnar nerve rt arm; carpal tunnel left History of thyroidectomy History of tonsillectomy History of tubal ligation Hx of angioplasty bilateral legs x2, 2 stents on R Hx of cataract surgery bilateral S/P angioplasty with stent rt leg Family History Father Bladder cancer Prostate cancer Diabetes Mother H/O blood clots Social History Smoking Status: Former smoker Tobacco Type: cigarettes Substance Use Type: None Social History Comments: Patient is . She resides with her spouse. She uses no DME. She is on disability due to chronic low back pain which she feels is from a work injury. Allergies & Active Medications Medications and Allergies Allergies hydrocodone [From Vicodin] Allergy (Verified 12/26/21 15:54) Hallucinating Steroid Injection Allergy (Uncoded 12/26/21 15:54) Swelling Exam Physical Exam Vital Signs: Temp Pulse Resp BP Pulse Ox O2 Del Method 97.5 F L 80 18 105/66 99 Room Air 12/29/21 04:00 12/29/21 04:00 12/29/21 04:00 12/29/21 04:00 12/29/21 04:00 12/29/21 04:00 Narrative: 56-year-old female, no acute distress. She is sitting comfortably at the side of her bed this morning awaiting her breakfast. She is alert and oriented. No shortness of breath with conversation. Her heart shows regular rate and rhythm, no murmur. Lung sounds are clear throughout bilaterally. Her abdomen is soft, large, nontender. She has a wound VAC present to the left anterior bella and her left foot dressing is clean, dry, and intact. I did not remove these dressings or wound VAC today as I will come this afternoon to do this. Results Labs CBC & Chem 7: 12/29/21 06:42 12/29/21 06:42 Labs: Laboratory Results - last 24 hr 12/28/21 12/28/21 12/28/21 16:27 17:21 20:38 Corrected WBC Uncorrected WBC Count RBC Hgb Hct MCV MCH MCHC RDW Plt Count MPV Neut % (Auto) Lymph % (Auto) [place] % (Auto) Eos % (Auto) Baso % (Auto) Neut # (Auto) Lymph # (Auto) [place] # (Auto) Eos # (Auto) Baso # (Auto) Nucleated RBC % (auto) PHA Creatinine Clear Sodium Potassium Chloride Carbon Dioxide Anion Gap BUN Creatinine Est GFR ( Amer) Est GFR (Non-Af Amer) Glucose POC Glucose 136 107 POC Glucose Comment Glu2: cleaned meter Glu2: cleaned meter Calcium Vancomycin Peak 48.3 H Vancomycin Trough 12/29/21 12/29/21 12/29/21 02:48 06:21 06:42 Corrected WBC 9.6 Uncorrected WBC Count 9.6 RBC 4.94 Hgb 14.5 Hct 45.4 MCV 91.9 MCH 29.3 MCHC 31.9 L RDW 16.6 H Plt Count 337 MPV 7.1 Neut % (Auto) 55.9 Lymph % (Auto) 30.7 [place] % (Auto) 7.7 Eos % (Auto) 4.8 Baso % (Auto) 0.9 Neut # (Auto) 5.3 Lymph # (Auto) 2.9 [place] # (Auto) 0.7 Eos # (Auto) 0.5 H Baso # (Auto) 0.1 Nucleated RBC % (auto) 0.1 PHA Creatinine Clear Sodium Potassium Chloride Carbon Dioxide Anion Gap BUN Creatinine Est GFR ( Amer) Est GFR (Non-Af Amer) Glucose POC Glucose 89 POC Glucose Comment Glu2: cleaned meter Calcium Vancomycin Peak Vancomycin Trough 18.4 12/29/21 12/29/21 06:42 11:13 Corrected WBC Uncorrected WBC Count RBC Hgb Hct MCV MCH MCHC RDW Plt Count MPV Neut % (Auto) Lymph % (Auto) [place] % (Auto) Eos % (Auto) Baso % (Auto) Neut # (Auto) Lymph # (Auto) [place] # (Auto) Eos # (Auto) Baso # (Auto) Nucleated RBC % (auto) PHA Creatinine Clear 82.53 Sodium 138 Potassium 4.2 Chloride 105 Carbon Dioxide 28.7 Anion Gap 8.5 BUN 15 Creatinine 0.98 Est GFR ( Amer) > 60 Est GFR (Non-Af Amer) 59 Glucose 92 POC Glucose 134 POC Glucose Comment Calcium 8.3 Vancomycin Peak Vancomycin Trough PT 10.7 Seconds (9.0-12.9) 12/26/21 17:16 APTT 29.4 Seconds (25.1-36.5) 12/26/21 17:16 Microbiology Microbiology: 12/26/21 17:20 Foot,Left - Drainage Superficial Wound Culture - Final Pseudomonas aeruginosa 12/26/21 18:51 Nasopharyngeal SARS-CoV-2, Influenza & RSV (PCR) - Final 12/26/21 18:51 Nasal SARS Antigen (LFIA) - Final A&P - Vascular (1) Diabetic infection of left foot: Code(s): E11.628 - Type 2 diabetes mellitus with other skin complications; L08.9 - Local infection of the skin and subcutaneous tissue, unspecified Status: Acute (2) PAD (peripheral artery disease): Plan: Left lower extremity MRI pending. Infectious disease following and managing IV antibiotic therapy. Will be back later this afternoon to remove all dressings and evaluate her wounds. I did see excellent photographs of her wound on her left leg. There is 100% granulation tissue present wound base. This is not the wound with concern. Thepatient is concerned about the wound on her foot. I did notice that her recent culture grew Klebsiella pneumonia. The patient is on Maxipime. This is sensitive. I also reviewed the noninvasive arterial studies. The patient has good blood supply to her left leg. Despite a good blood supply to her left leg the patient remains at risk for amputation until all wounds are completely healed. She does have a problem in light of microvascular ischemia in the forefoot. This is due to diabetes and the fact that it affects the microvasculature. At this point time there is nothing further vascular surgery can offer her and we will continue to manage and watch her conservatively. She understands agrees the plan all her questions were addressed we will see her as an outpatient in the office. Code(s): I73.9 - Peripheral vascular disease, unspecified Status: Acute (3) Diabetes mellitus: Qualifiers: Diabetes mellitus type: type 2 Code(s): E11.9 - Type 2 diabetes mellitus without complications Status: Chronic Documented By: Alejandra Middleton APRN 12/29/21 0 751 Signed By: <Electronically signed by NAOMI Middleton> 12/29/21 1353 <Electronically signed by Zaid Mon MD> 12/29/21 1558 [facility] Work Phone: [phone] Consult note Author Rolando Sykes [facility] December 29, 2021 11:03am Note Date/Time December 29, 2021 1 1:03am [facility] [address] [place] [address] Infect. Disease Consult Note Signed Patient: Ema Neff MR#: [id number] : 1965 Acct:[id number] Age/Sex: 56 / F Adm Date: 2 Loc: 3T Room: [address] [place] [address] Type: ADM IN Attending Dr: Hailee Berg DO Copies to: DO Rolando Patrick MD Robert L Hill, MD~ HPI Data of Consult Consult date: 12/29/21 Requesting Physician: Hailee Berg DO Primary Care Provider: Jarvis Thrasher MD Consult Narrative History of present illness: Ms. Neff is a 56 year old female who is status post surgery with a left lower extremity bypass back in October with complications of infection afterwards that required I&D for which now she has a wound VAC over the left anterior bella. Shehasacha had surgery on the left foot as well for which concern over infection due toerythema that occurred at the surgical site prompted IV antibiotics to be started. This is reason consulted. Patient was recently on outpatient Linezolid. Most recent culture from the left foot drainage is positive for Pseudomonas aeruginosa. We are waiting on MRI. Patient complains of pain at the site itself. Denies fevers or chills CC: Hailee Berg DO Review of Systems Review of Systems All other systems reviewed & are negative unless noted below or in HPI [facility] Attestation Statement: The following information was validated with the patient. Vaccinated for COVID-19?: Yes Medical History Anxiety Arthritis Back pain Bronchitis Cellulitis DDD (degenerative disc disease) Depression Diabetes Diabetes mellitus, type 2 DJD (degenerative joint disease) Eczema GERD (gastroesophageal reflux disease) since being dx with thyroid problems Gout History of amputation of toe History of CVA in adulthood rt sided weakness Hyperlipidemia Hypertension Hyperthyroidism Menopause Neuropathy Osteoporosis Sleep apnea no machine Smoker quit 03/2021 Tachycardia Ulcerative colitis Surgical History History of carpal tunnel surgery of right wrist History of cholecystectomy History of endometrial ablation History of surgery on wrist carpal tunnel and ulnar nerve rt arm; carpal tunnel left History of thyroidectomy History of tonsillectomy History of tubal ligation Hx of angioplasty bilateral legs x2, 2 stents on R Hx of cataract surgery bilateral S/P angioplasty with stent rt leg Family History Father Bladder cancer Prostate cancer Diabetes Mother H/O blood clots Social History Smoking Status: Former smoker Tobacco Type: cigarettes Substance Use Type: None Social History Comments: Patient is . She resides with her spouse. She uses no DME. She is on disability due to chronic low back pain which she feels is from a work injury. Allergies and Medications Allergies and Active Meds Allergies hydrocodone [From Vicodin] Allergy (Verified 12/26/21 15:54) Hallucinating Steroid Injection Allergy (Uncoded 12/26/21 15:54) Swelling Active Medications Amitriptyline HCl (Amitriptyline 50 Mg Tablet) 50 mg PO HS PAULINO Stop: 12/26/22 22:44 Last Admin: 12/28/21 21:23 Dose: 50 mg Aspirin (Aspirin 81 Mg Tablet.) 81 mg PO DAILY PAULINO Stop: 12/27/22 08:59 Last Admin: 12/29/21 08:39 Dose: 81 mg Atorvastatin Calcium (Atorvastatin 40 Mg Tablet) 40 mg PO QHS PAULINO Stop: 12/26/22 22:44 Last Admin: 12/28/21 21:23 Dose: 40 mg Bisacodyl (Bisacodyl 5 Mg Tablet.) 10 mg PO DAILY PRN PRN Reason: Constipation Stop: 12/26/22 20:55 Clopidogrel Bisulfate (Clopidogrel Bisulfate 75 Mg Tablet) 75 mg PO DAILY PAULINO Stop: 12/27/22 08:59 Last Admin: 12/29/21 08:39 Dose: 75 mg Cyclobenzaprine HCl (Cyclobenzaprine 10 Mg Tablet) 10 mg PO QHS PRN PRN Reason: Muscle Spasm Stop: 12/26/22 20:54 Last Admin: 12/28/21 21:24 Dose: 10 mg Dextrose (Dextrose 50% In Water 25 Gm/50 Ml Syringe) 0 gm IV-PUSH PRN PRN PRN Reason: Hypoglycemia Stop: 12/26/22 21:06 Enoxaparin Sodium (Enoxaparin 40 Mg/0.4 Ml Syringe) 40 mg SUBCUT DAILY@1000 PAULINO Stop: 12/29/22 09:59 Last Admin: 12/29/21 10:35 Dose: Not Given Fluticasone Propionate (Fluticasone Propionate Greenbush 120 [place]/16 Gm Bottle) 1 spray INTRANASAL QHS PRN PRN Reason: Nasal Congestion Stop: 12/26/22 20:54 Gabapentin (Gabapentin 800 Mg Tablet) 800 mg PO QID PAULINO Stop: 12/26/22 22:44 Last Admin: 12/29/21 08:39 Dose: 800 mg Glimepiride (Glimepiride 4 Mg Tablet) 4 mg PO DAILY@0800 [facility] Stop: 12/27/22 07:59 Last Admin: 12/29/21 08:39 Dose: 4 mg Glucose (Dextrose 40% Gel 15 Gm Tube) 0 gm PO PRN PRN PRN Reason: Hypoglycemia Stop: 12/26/22 21:06 Hydromorphone HCl (Hydromorphone 0.5 Mg/0.5 Ml Syringe) 1 mg IV-PUSH Q4H PRN PRN Reason: Pain Scale 8 - 10 Last Admin: 12/29/21 10:25 Dose: 1 mg Cefepime HCl (Maxipime) 2 gm in 50 mls @ 100 mls/hr IV Q12H [facility] Last Admin: 12/29/21 01:07 Dose: 100 mls/hr Vancomycin HCl (Vancomycin) 0.75 gm in 250 mls @ 250 mls/hr IV Q12H [facility] Last Infusion: 12/29/21 09:38 Dose: Infused Insulin Aspart (Insulin Aspart 300 Units/3 Ml Insuln.Pen) 0 units SUBCUT TID.WM.HS [facility]; Protocol Stop: 12/26/22 21:59 Last Admin: 12/29/21 07:42 Dose: Not Given Levothyroxine Sodium (Levothyroxine 150 Mcg Tablet) 150 mcg PO DAILY@0630 [facility] Stop: 12/27/22 06:29 Last Admin: 12/29/21 06:36 Dose: 150 mcg Losartan Potassium (Losartan 50 Mg Tablet) 50 mg PO QAM [facility] Stop: 12/27/22 08:59 Last Admin: 12/29/21 08:39 Dose: 50 mg Meloxicam (Meloxicam *Nf* 7.5 Mg Tablet) 15 mg PO DAILY [facility] Stop: 12/27/22 08:59 Last Admin: 12/29/21 10:26 Dose: 15 mg Metoprolol Succinate (Metoprolol Succinate 50 Mg Tab.Er.24h) 50 mg PO DAILY [facility] Stop: 12/27/22 08:59 Last Admin: 12/29/21 08:39 Dose: 50 mg Non-Formulary Medication (Semaglutide [Ozempic]) 1 mg SUBCUT Mo@0900 [facility] Stop: 12/29/22 08:59 Nystatin (Nystatin 100,000 Unit/Gm Oint 15 Gm Tube) 1 applic TOPICAL TID PRN PRN Reason: rash Stop: 12/26/22 20:54 Ondansetron HCl (Ondansetron 4 Mg/2 Ml Vial) 4 mg IV-PUSH Q8H PRN PRN Reason: Nausea And Vomiting Stop: 12/26/22 20:55 Oxycodone/Acetaminophen (Oxycodone/Acetaminophen 5-325 Mg Tablet) 4 tab PO BID PAULINO Last Admin: 12/29/21 08:39 Dose: 4 tab Sennosides (Sennosides 8.6 Mg Tablet) 2 tab PO BID PRN PRN Reason: constipation Stop: 12/26/22 20:54 Last Admin: 12/28/21 21:23 Dose: 2 tab Sodium Chloride (Sodium Chloride 0.9 % 10 Ml Syringe) 0 ml IV-PUSH PRN PRN PRN Reason: Flush Stop: 12/26/22 15:52 Last Admin: 12/29/21 10:25 Dose: 10 ml Vancomycin HCl (Vancomycin - Pharmacy Dosing 1 Each Miscell) 1 each IV ONCE PRN; Protocol PRN Reason: ZZ.Pharmacy Consult Exam Physical Exam Vital Signs: Temp Pulse Resp BP Pulse Ox O2 Del Method 97.5 F L 80 18 105/66 99 Room Air 12/29/21 04:00 12/29/21 04:00 12/29/21 04:00 12/29/21 04:00 12/29/21 04:00 12/29/21 04:00 Const General: cooperative, comfortable and no acute distress Nutritional Appearance: average body habitus Orientation: oriented x3 HEENT Head: normal to inspection Eyes General: appearance normal, both eyes and all related structures Neck Neck: normal visual inspection Chest Chest palpation & inspection: normal inspection of the chest Resp Effort & Inspection: normal respiratory effort Cardio Palpation: normal PMI Rate: regular rate Rhythm: regular rhythm GI Inspection: normal to inspection Palpation: soft and nontender Auscultation: normal bowel sounds Skin Other: Left anterior bella with VAC; surrounding erythema Left foot wrapped and not taken down Neuro General: patient oriented x3 Results Labs CBC & Chem 7: 12/29/21 06:42 12/29/21 06:42 Labs: 12/29/21 06:42: Corrected WBC 9.6, Uncorrected WBC Count 9.6 12/29/21 06:42: BUN 15, Creatinine 0.98 Microbiology Results Microbiology Narrative: 12/26/21 17:14 Blood Culture - Preliminary Blood - Left Forearm No Growth 2 Days 12/26/21 17:16 Blood Culture - Preliminary Blood - Left Wrist No Growth 2 Days 12/26/21 17:20 Superficial Wound Culture - Final Foot,Left - Drainage Pseudomonas aeruginosa 12/26/21 18:51 SARS-CoV-2, Influenza & RSV (PCR) - Final Nasopharyngeal 12/26/21 18:51 SARS Antigen (LFIA) - Final Nasal A&P - Infectious Disease (1) Status post amputation of toe of left foot: Status: Acute (2) Left leg cellulitis: Status: Acute (3) Wound infection: Status: Acute Plan Maintain Vanc/Cefepime. Await MRI. New culture with Pseudomonas for which had only light growth. Cefepime should cover this. Awaiting MRI to ensure no deep evidence of infection and at this time podiatry is not planning any further surgery. Maintain vancomycin and cefepime. When time for dc PO levaquin likley a good choice. Documented By: Rolanod Sykes MD 12/29/21 1057 Signed By: <Electronically signed by MD Rolando Sykes> 12/29/21 1103 [facility] Work Phone: [phone] Progress note Author Hailee Berg [facility] December 28, 2021 2:05pm Note Date/Time December 28, 2021 1 :46pm [facility] [address] [place] [address] Hospitalist Progress Note Signed Patient: Ema Neff MR#: [id number] : 1965 Acct:[id number] Age/Sex: 56 / F Adm Date: 2 Loc: Room: [address] [place] [address] Type: ADM IN Attending Dr: Hailee Berg DO Copies to: ~ Date of Service: 12/28/2021 Subjective Subjective Narrative: Patient seen and examined. She reports poor pain control this morning. Denies chest pain, shortness of breath, nausea, chills. Podiatry evaluated and ordering an MRI. Vascular consult also ordered but is unavailable until tomorrow She is on large doses of oxycodone as outpatient for pain control, will increaseas needed Dilaudid to 1 mgq4 h and encourage patient to follow-up with pain management after discharge. Exam Physical Exam Vital Signs: Temp Pulse Resp BP Pulse Ox O2 Del Method 97.8 F 88 18 148/88 H 96 Room Air 12/28/21 11:47 12/28/21 11:47 12/28/21 11:47 12/28/21 11:47 12/28/21 11:47 12/28/21 11:47 Narrative: General: NAD, alert and oriented x3 HEENT: Normocephalic, atraumatic, pupils are equal and reactive to light, neck is supple and trachea is midline Lungs: Clear on auscultation bilaterally, no wheezing or rhonchi Cardio: RRR, No murmur Abdomen: Soft, NTTP, nondistended with bowel sounds throughout LE: Left lower extremity with wound VAC in place, left foot with dressing is clean dry and intact Neuro: A&O X3, Speech is clear Skin: Warm and dry Psych: Appropriate mood and affect Objective Lab Results CBC & Chem 7: 12/28/21 06:15 12/28/21 06:15 Microbiology Results Microbiology 12/26/21 17:20 Foot,Left - Drainage Superficial Wound Culture - Final Pseudomonas aeruginosa 12/26/21 17:14 Blood - Left Forearm Blood Culture - Preliminary No Growth 1 Day 12/26/21 17:16 Blood - Left Wrist Blood Culture - Preliminary No Growth 1 Day Meds Allergies and Active Meds Allergies hydrocodone [From Vicodin] Allergy (Verified 12/26/21 15:54) Hallucinating Steroid Injection Allergy (Uncoded 12/26/21 15:54) Swelling Active Meds: Active Medications Generic Name Dose Route Start Last Admin Trade Name Freq PRN Reason Stop Dose Admin Amitriptyline HCl 50 mg 12/26/21 22:45 12/27/21 21:04 Amitriptyline 50 Mg Tablet PO 12/26/22 22:44 50 mg HS PAULINO Administration Aspirin 81 mg 12/27/21 09:00 12/28/21 09:06 Aspirin 81 Mg Tablet. PO 12/27/22 08:59 81 mg DAILY PAULINO Administration Atorvastatin Calcium 40 mg 12/26/21 22:45 12/27/21 21:04 Atorvastatin 40 Mg Tablet PO 12/26/22 22:44 40 mg QHS PAULINO Administration Bisacodyl 10 mg 12/26/21 20:56 Bisacodyl 5 Mg Tablet.Dr PO 12/26/22 20:55 DAILY PRN Constipation Clopidogrel Bisulfate 75 mg 12/27/21 09:00 12/28/21 09:06 Clopidogrel Bisulfate 75 Mg Tablet PO 12/27/22 08:59 75 mg DAILY PAULINO Administration Cyclobenzaprine HCl 10 mg 12/26/21 20:55 Cyclobenzaprine 10 Mg Tablet PO 12/26/22 20:54 QHS PRN Muscle Spasm Dextrose 0 gm 12/26/21 21:07 Dextrose 50% In Water 25 Gm/50 Ml Syringe IV-PUSH 12/26/22 21:06 PRN PRN Hypoglycemia Fluticasone Propionate 1 spray 12/26/21 20:55 Fluticasone Propionate Greenbush 120 [place]/16 Gm Bottle INTRANASAL 12/26/22 20:54 QHS PRN Nasal Congestion Gabapentin 800 mg 12/26/21 22:45 12/28/21 13:23 Gabapentin 800 Mg Tablet PO 12/26/22 22:44 800 mg QID PAULINO Administration Glimepiride 4 mg 12/27/21 08:00 12/28/21 09:06 Glimepiride 4 Mg Tablet PO 12/27/22 07:59 4 mg DAILY@0800 PAULINO Administration Glucose 0 gm 12/26/21 21:07 Dextrose 40% Gel 15 Gm Tube PO 12/26/22 21:06 PRN PRN Hypoglycemia Cefepime HCl 2 gm in 50 mls @ 100 mls/hr 12/27/21 01:00 12/28/21 13:23 Maxipime IV 100 mls/hr Q12H PAULINO Administration Vancomycin HCl 1.25 gm/ 275 mls @ 183.333 mls/hr 12/27/21 03:00 12/28/21 03:43 Dextrose IV 12/27/22 02:59 183.33 mls/hr Q12H PAULINO Administration Insulin Aspart 0 units 12/26/21 22:00 12/28/21 11:48 Insulin Aspart 300 Units/3 Ml Insuln.Pen SUBCUT 12/26/22 21:59 1 units TID.WM.HS PAULINO Administration Protocol Levothyroxine Sodium 150 mcg 12/27/21 06:30 12/28/21 06:16 Levothyroxine 150 Mcg Tablet PO 12/27/22 06:29 150 mcg DAILY@0630 PAULINO Administration Losartan Potassium 50 mg 12/27/21 09:00 12/28/21 09:06 Losartan 50 Mg Tablet PO 12/27/22 08:59 50 mg QAM PAULINO Administration Meloxicam 15 mg 12/27/21 09:00 12/28/21 09:06 Meloxicam *Nf* 7.5 Mg Tablet PO 12/27/22 08:59 15 mg DAILY PAULINO Administration Metoprolol Succinate 50 mg 12/27/21 09:00 12/28/21 09:06 Metoprolol Succinate 50 Mg Tab.Er.24h PO 12/27/22 08:59 50 mg DAILY PAULINO Administration Non-Formulary Medication 1 mg 12/29/21 09:00 Semaglutide [Ozempic] SUBCUT 12/29/22 08:59 Mo@0900 PAULINO Nystatin 1 applic 12/26/21 20:55 Nystatin 100,000 Unit/Gm Oint 15 Gm Tube TOPICAL 12/26/22 20:54 TID PRN rash Ondansetron HCl 4 mg 12/26/21 20:56 Ondansetron 4 Mg/2 Ml Vial IV-PUSH 12/26/22 20:55 Q8H PRN Nausea And Vomiting Oxycodone/Acetaminophen 4 tab 12/27/21 11:00 12/28/21 09:05 Oxycodone/Acetaminophen 5-325 Mg Tablet PO 4 tab BID PAULINO Administration Sennosides 2 tab 12/26/21 20:55 Sennosides 8.6 Mg Tablet PO 12/26/22 20:54 BID PRN constipation Sodium Chloride 0 ml 12/26/21 15:53 12/28/21 13:23 Sodium Chloride 0.9 % 10 Ml Syringe IV-PUSH 12/26/22 15:52 10 ml PRN PRN Administration Flush Vancomycin HCl 1 each 12/26/21 21:26 Vancomycin - Pharmacy Dosing 1 Each Miscell IV ONCE PRN ZZ.Pharmacy Consult Protocol A&P - Hospitalist Assessment/Plan (1) Diabetic infection of left foot: Plan Left diabetic foot ulcer Cellulitis PVD: History of left tibial to peroneal bypass 10/13/21 -Admit to the medical floor -Patient presents with Leukocytosis 13,000, afebrile, surrounding erythema and worsening pain of left lower extremity with wound VAC in place.She reports increased drainage from wound site. Patient reports she has been taking linezolid at home, prior culture reviewed and showed skin neo, and staph epi. -Change to Vanco and cefepime pending repeat cultures -Repeat cultures prelim positive gram-negative bacilli -Podiatry consult -MRI is pending -Checks duplex ultrasound -Vascular has been consulted but is unavailable for consult over the weekend. The left lower extremity wound and leg appears stable, well-perfused, no indication for transfer out at this time -Infectious disease consult Chronic pain: Confirmed home regimen of 20 mg oxycodone twice daily for chronic pain and OARRS. Patient received 4 mg IV morphine, states this has not touched her pain. Will order 1 IV Dilaudid as needed. Pain control remains her biggest concern and is noted on prior admissions. CODE STATUS confirmed as full Documented By: Hailee Berg DO 12/28/21 1344 Signed By: <Electronically signed by Hailee Berg DO> 12/28/21 7344 [facility] Work Phone: 1([phone]) 117-915010-16-2022 Progress note Author CWS Ayan wallis [facility] December 28, 2021 1:37pm Note Date/Time December 28, 2021 1 :37pm [facility] [address] [place] [address] Podiatry Progress Note Signed Patient: Ema Neff MR#: [id number] : 1965 Acct:[id number] Age/Sex: 56 / F Adm Date: 2 Loc: Room: [address] [place] [address] Type: ADM IN Attending Dr: Hailee Berg DO Copies to: ~ Subjective Subjective Date of Service: Date of Service: 12/28/2021 Time of Service: 13:33 Narrative: Ms. Neff is a 56 year old female who is typically followed by my partner Dr. Mehta. She has recently undergone second left toe amputation and he continues to follow for wounds at the amputation site, distal left hallux and medial left midfoot. Patient recently noticed increasing pain and the redness surrounding the wounds as well as the wound on the pretibial area of the left lower extremity. This is wound has a VAC applied due to dehiscence previous revascularization surgery. Patient has history of peripheral arterial disease with recent vascular intervention and diabetes with peripheral neuropathy and history of chronic ulcerations of both feet. She has history of chronic pain associated with her back which apparently has made pain control in the lower extremities difficult at times. She denies any fever or chills. Patient statesthat her pain is somewhat improved relative to yesterday. She continues to havesignificant pain however in the left lower extremity Exam Physical Exam Vital Signs: Temp Pulse Resp BP Pulse Ox O2 Del Method 97.8 F 88 18 148/88 H 96 Room Air 12/28/21 11:47 12/28/21 11:47 12/28/21 11:47 12/28/21 11:47 12/28/21 11:47 12/28/21 11:47 Narrative: General: Patient is alert oriented x3 aware of her surroundings in no acute distress Vascular: DP pulse trace and PT pulses 0/4 and temperature gradient is warm to cool. No significant edema noted today. Neurological: Absent vibratory sensation at the first MP joint bilaterally. Decreased light touch sensation distal to the midfoot bilaterally Dermatological: Skin is thinning with diminished hair growth bilaterally. No hyperkeratotic lesions are noted. Patient has history of second toe amputationsbilaterally. Ulcerations are noted as described below Musculoskeletal: +5/5 muscle strength bilaterally, mild hammertoe deformities noted bilaterally Podiatric: Ulcerated lesions are noted on the left foot. Lesion on the medial left foot measures 2.5 x 0.5 cm in diameter and 0.2 cm in depth. The base appears to be granular with no evidence of sinus tracts or undermining. There is a lesion on the distal left hallux which measures 1.5 x 1.0 cm in diameter and is very superficial apparently being caused by a blistered lesion. Amputation site of the second left toe demonstrates an ulcer 2.5 x 2.0 cm in diameter and 0.2 cm in depth. The base of this wound is mixed granular and fibrotic. No sinus track or undermining noted here. All wounds demonstrate local erythema surrounding the lesions, however erythema has diminished since examination yesterday. Lesions are also very tender to the touch and no debridement can be performed due to the sensitivity. The painful sensitivity ofher wounds has been something she has been dealing with for an extended period of time. There is wound VAC in place on the pretibial area left from previous wound dehiscence. Dr. Mon is managing this condition and the wound VAC was just changed on Wednesday by home health. Patient is afebrile and her white blood cell count is 10.2. Culture and sensitivity revealed Pseudomonas sensitive to cefepime. X- rays have been taken and no evidence of subcutaneous air or osteomyelitis was noted Assessment/Plan (1) Diabetic foot ulcer: Assessment/Problem Details: Completed evaluation. Discussed treatment options with the patient at length. At this point wounds appear to be for the most part intact with only local erythema which has improved relative to yesterday's exam. It does not appear that surgical intervention will be needed however we have ordered an MRI study to ensure there are no underlying abscesses or osteomyelitis developing. We will continue current dressing regimen. We I have also scheduled consultations with infectious disease for evaluation and guidance regarding ongoing antibiotictherapy for her recurring infections as well as vascular surgery to ensure that PAD is not beginning to worsen and to evaluate previous postop wound as well. Code(s): E11.621 - Type 2 diabetes mellitus with foot ulcer; L97.509 - Non-pressure chronic ulcer of other part of unspecified foot with unspecified severity (2) Ulcer of left foot with fat layer exposed: Code(s): L97.522 - Non-pressure chronic ulcer of other part of left foot with fat layer exposed (3) Type 2 diabetes mellitus with peripheral neuropathy: Code(s): E11.42 - Type 2 diabetes mellitus with diabetic polyneuropathy (4) PAD (peripheral artery disease): Code(s): I73.9 - Peripheral vascular disease, unspecified (5) Status post amputation of toe of left foot: Code(s): Z89.422 - Acquired absence of other left toe(s) (6) Status post amputation of toe of right foot: Code(s): Z89.421 - Acquired absence of other right toe(s) Documented By: Ayan Deluna DPM, CWS [id number] Signed By: <Electronically signed by TERESA Deluna> 12/28/[address] [facility] Work Phone: [phone]) 321-656410-15-2022 Consult note Author AUTUMN wallis [facility] December 27, 2021 3:12pm Note Date/Time December 27, 2021 2 :51pm [facility] [address] [place] [address] Podiatry Consult Note Signed Patient: Ema Neff MR#: [id number] : 1965 Acct:[id number] Age/Sex: 56 / F Adm Date: 2 Loc: Room: [address] [place] [address] Type: ADM IN Attending Dr: Hailee Berg DO Copies to: Ayan Deluna DPM, CWS DO Jarvis Patrick MD~ HPI Data of Consult Consult Date: 12/27/21 Requesting Physician: Hailee Berg DO Primary Care Provider: Jarvis Thrasher MD Consult Narrative Reason for consult: Increasing pain and redness of the left foot and leg History of present illness: Ms. Neff is a 56 year old female who is typically followed by my partner Dr. Mehta. She has recently undergone second left toe amputation and he continues to follow for wounds at the amputation site, distal left hallux and medial left midfoot. Patient recently noticed increasing pain and the redness surrounding the wounds as well as the wound on the pretibial area of the left lower extremity. This is wound has a VAC applied due to dehiscence previous revascularization surgery. Patient has history of peripheral arterial disease with recent vascular intervention and diabetes with peripheral neuropathy and historyof chronic ulcerations of both feet. She has history of chronic pain associatedwith her back which apparently has made pain control in the lower extremities difficult at times. She denies any fever or chills. Review of Systems Review of Systems All other systems reviewed & are negative unless noted below or in HPI Constitutional Constitutional: Reports fatigue Cardiovascular Cardiovascular: Reports as per HPI and Reports leg ulcers Respiratory Respiratory: Reports system reviewed and no additional complaints, except as documented Gastrointestinal Gastrointestinal: Reports system reviewed and no additional complaints, except as documented Musculoskeletal Musculoskeletal: Reports numbness and Reports tingling Integumentary/Breasts Skin/Breast: Reports skin ulcer and Reports wounds Neurologic Neurologic: Reports numbness and Reports paresthesias Psychiatric Psychiatric: Reports system reviewed and no additional complaints, except as documented Endocrine Endocrine: Reports as per HPI PMFSH Vaccinated for COVID-19?: Yes Medical History Anxiety Arthritis Back pain Bronchitis Cellulitis DDD (degenerative disc disease) Depression Diabetes Diabetes mellitus, type 2 DJD (degenerative joint disease) Eczema GERD (gastroesophageal reflux disease) since being dx with thyroid problems Gout History of amputation of toe History of CVA in adulthood rt sided weakness Hyperlipidemia Hypertension Hyperthyroidism Menopause Neuropathy Osteoporosis Sleep apnea no machine Smoker quit 03/2021 Tachycardia Ulcerative colitis Surgical History History of carpal tunnel surgery of right wrist History of cholecystectomy History of endometrial ablation History of surgery on wrist carpal tunnel and ulnar nerve rt arm; carpal tunnel left History of thyroidectomy History of tonsillectomy History of tubal ligation Hx of angioplasty bilateral legs x2, 2 stents on R Hx of cataract surgery bilateral S/P angioplasty with stent rt leg Family History Father Bladder cancer Prostate cancer Diabetes Mother H/O blood clots Social History Smoking Status: Former smoker Tobacco Type: cigarettes Substance Use Type: None Social History Comments: Patient is . She resides with her spouse. She uses no DME. She is on disability due to chronic low back pain which she feels is from a work injury. Meds Medications and Allergies Allergies hydrocodone [From Vicodin] Allergy (Verified 12/26/21 15:54) Hallucinating Steroid Injection Allergy (Uncoded 12/26/21 15:54) Swelling Home Medications losartan 50 mg tablet 50 mg PO QAM htn 11/02/17 [History Confirmed 12/26/21] fluticasone propionate 50 mcg/actuation nasal spray,suspension (Flonase Allergy Relief) 1 spray intranasal QHS PRN Nasal Congestion 03/06/18 [History Confirmed 12/26/21] amitriptyline 25 mg tablet 50 mg PO HS insomnia 01/21/21 [History Confirmed 12/26/21] gabapentin 800 mg tablet 800 mg PO QID neuropathy 01/21/21 [History Confirmed 12/26/21] meloxicam 15 mg tablet 15 mg PO DAILY arthritis 01/21/21 [History Confirmed 12/26/21] nystatin 100,000 unit/gram topical ointment 1 applic topical TID PRN rash 03/10/21 [History Confirmed 12/26/21] aspirin 81 mg tablet,delayed release 81 mg PO DAILY PVD 05/02/21 [History Confirmed 12/26/21] clopidogrel 75 mg tablet 75 mg PO DAILY PVD 05/02/21 [History Confirmed 12/26/21] cyclobenzaprine 5 mg tablet 10 mg PO QHS PRN Muscle Spasm 05/02/21 [History Confirmed 12/26/21] metoprolol succinate 25 mg tablet,extended release 24 hr 50 mg PO DAILY tachycardia/overactive thyroid 05/02/21 [History Confirmed 12/26/21] levothyroxine 125 mcg tablet 150 mcg PO DAILY 09/27/21 [History Confirmed 12/26/21] sennosides 8.6 mg tablet (Senna Lax) 2 tab PO BID PRN constipation 30 days #120 tabs 10/09/21 [Rx Confirmed 12/26/21] semaglutide 1 mg/dose (4 mg/3 mL) subcutaneous pen injector (Ozempic) 1 mg (0.75mL) subcut QWEEK #3 mL 10/17/21 [Rx Confirmed 12/26/21] glimepiride 4 mg tablet 4 mg PO DAILY 11/04/21 [History Confirmed 12/26/21] linezolid 600 mg tablet 600 mg PO BID 14 days #28 tabs 12/05/21 [Rx Confirmed 12/26/21] oxycodone 5 mg tablet 10 mg PO Q4H PRN Pain 12/18/21 [History Confirmed 12/26/21] oxycodone-acetaminophen 5 mg-325 mg tablet 1 - 2 tab PO Q4-6H PRN Pain 12/18/21 [History Confirmed 12/26/21] atorvastatin 20 mg tablet (Lipitor) 40 mg PO QHS hyperlipidemia 12/26/21 [History Confirmed 12/26/21] Exam Physical Exam Vital Signs: Temp Pulse Resp BP Pulse Ox O2 Del Method 97.8 F 80 20 146/98 H 97 Room Air 12/27/21 08:23 12/27/21 12:00 12/27/21 12:00 12/27/21 12:00 12/27/21 12:00 12/27/21 12:00 Narrative: General: Patient is alert oriented x3 aware of her surroundings in no acute distress Vascular: DP pulse trace and PT pulses 0/4 and temperature gradient is warm to cool. No significant edema noted today. Neurological: Absent vibratory sensation at the first MP joint bilaterally. Decreased light touch sensation distal to the midfoot bilaterally Dermatological: Skin is thinning with diminished hair growth bilaterally. No hyperkeratotic lesions are noted. Patient has history of second toe amputationsbilaterally. Ulcerations are noted as described below Musculoskeletal: +5/5 muscle strength bilaterally, mild hammertoe deformities noted bilaterally Podiatric: Ulcerated lesions are noted on the left foot. Lesion on the medial left foot measures 2.5 x 0.5 cm in diameter and 0.2 cm in depth. The base appears to be granular with no evidence of sinus tracts or undermining. There is a lesion on the distal left hallux which measures 1.5 x 1.0 cm in diameter and is very superficial apparently being caused by a blistered lesion. Amputation site of the second left toe demonstrates an ulcer 2.5 x 2.0 cm in diameter and 0.2 cm in depth. The base of this wound is mixed granular and fibrotic. No sinus track or undermining noted here. All wounds demonstrate local erythema surrounding the lesions. Lesions are also very tender to the touch and no debridement can be performed due to the sensitivity. There is wound VAC in place on the pretibial area left from previous wound dehiscence. Dr. Mon is managing this condition and the wound VAC was just changed yesterday by home health. Patient is afebrile and her white blood cell count is10.5. Culture and sensitivity is pending. X-rays have been taken and no evidence of subcutaneous air or osteomyelitis was noted Results Labs CBC & Chem 7: 12/27/21 12:12 12/27/21 12:43 ESR 36 mm/hr (0-29) H 12/26/21 17:16 Microbiology Microbiology: Microbiology - Results from entire visit 12/26/21 17:20 Foot,Left - Drainage Superficial Wound Culture - Preliminary Gram Negative Bacilli 12/26/21 18:51 Nasopharyngeal SARS-CoV-2, Influenza & RSV (PCR) - Final 12/26/21 18:51 Nasal SARS Antigen (LFIA) - Final Assessment/Plan (1) Diabetic foot ulcer: Assessment/Problem Details: Completed evaluation. Discussed treatment options with the patient at length. Reviewed labs and x-rays. At this point wounds appear to be for the most part intact with only local erythema. It does not appear that surgical intervention will be needed however we will order MRI study to ensure there are no underlyingabscesses or osteomyelitis developing. We will continue current dressing regimen. We will also schedule consultations with infectious disease for evaluation and guidance regarding ongoing antibiotic therapy for her recurring infections. We will also consult vascular surgery to ensure that PAD is not beginning to worsen and to evaluate previous postop wound as well. Code(s): E11.621 - Type 2 diabetes mellitus with foot ulcer; L97.509 - Non-pressure chronic ulcer of other part of unspecified foot with unspecified severity (2) Ulcer of left foot with fat layer exposed: Code(s): L97.522 - Non-pressure chronic ulcer of other part of left foot with fat layer exposed (3) Type 2 diabetes mellitus with peripheral neuropathy: Code(s): E11.42 - Type 2 diabetes mellitus with diabetic polyneuropathy (4) PAD (peripheral artery disease): Code(s): I73.9 - Peripheral vascular disease, unspecified (5) Status post amputation of toe of left foot: Code(s): Z89.422 - Acquired absence of other left toe(s) (6) Status post amputation of toe of right foot: Code(s): Z89.421 - Acquired absence of other right toe(s) Documented By: Ayan Deluna DPM, AUTUMN [id number] Signed By: <Electronically signed by TERESA Deluna> 12/27/21 [facility] Work Phone: [phone]) 875-748610-15-2022 Progress note Author Hailee Berg [facility] December 27, 2021 2:45pm Note Date/Time December 27, 2021 2 :38pm [facility] [address] [place] [address] Hospitalist Progress Note Signed Patient: Ema Neff MR#: [id number] : 1965 Acct:[id number] Age/Sex: 56 / F Adm Date: 2 Loc: Room: [address] [place] [address] Type: ADM IN Attending Dr: Hailee Berg DO Copies to: ~ Date of Service: 12/27/2021 Subjective Subjective Narrative: Patient seen and examined. She is afebrile overnight. Leukocytosis is resolved. Her biggest complaint is continued pain in the left lower extremity. She is eating and drinking well. Cultures prelim positive for gram-negative bacilli Exam Physical Exam Vital Signs: Temp Pulse Resp BP Pulse Ox O2 Del Method 97.8 F 80 20 146/98 H 97 Room Air 12/27/21 08:23 12/27/21 12:00 12/27/21 12:00 12/27/21 12:00 12/27/21 12:00 12/27/21 12:00 Narrative: General: NAD, alert and oriented x3 HEENT: Normocephalic, atraumatic, pupils are equal and reactive to light, neck is supple and trachea is midline Lungs: Clear on auscultation bilaterally, no wheezing or rhonchi Cardio: RRR, No murmur Abdomen: Soft, NTTP, nondistended with bowel sounds throughout LE: Left lower extremity with wound VAC in place, erythema around left medial ulceration, appears same as yesterday Neuro: A&O X3, Speech is clear Skin: Warm and dry Psych: Appropriate mood and affect Objective Lab Results CBC & Chem 7: 12/27/21 12:12 12/27/21 12:43 Microbiology Results Microbiology 12/26/21 17:20 Foot,Left - Drainage Superficial Wound Culture - Preliminary Gram Negative Bacilli 12/26/21 18:51 Nasopharyngeal SARS-CoV-2, Influenza & RSV (PCR) - Final 12/26/21 18:51 Nasal SARS Antigen (LFIA) - Final Meds Allergies and Active Meds Allergies hydrocodone [From Vicodin] Allergy (Verified 12/26/21 15:54) Hallucinating Steroid Injection Allergy (Uncoded 12/26/21 15:54) Swelling Active Meds: Active Medications Generic Name Dose Route Start Last Admin Trade Name Amarilis PRN Reason Stop Dose Admin Amitriptyline HCl 50 mg 12/26/21 22:45 12/26/21 23:53 Amitriptyline 50 Mg Tablet PO 12/26/22 22:44 50 mg HS PAULINO Administration Aspirin 81 mg 12/27/21 09:00 12/27/21 10:20 Aspirin 81 Mg Tablet.Dr PO 12/27/22 08:59 81 mg DAILY PAULINO Administration Atorvastatin Calcium 40 mg 12/26/21 22:45 12/26/21 23:53 Atorvastatin 40 Mg Tablet PO 12/26/22 22:44 40 mg QHS PAULINO Administration Bisacodyl 10 mg 12/26/21 20:56 Bisacodyl 5 Mg Tablet.Dr PO 12/26/22 20:55 DAILY PRN Constipation Clopidogrel Bisulfate 75 mg 12/27/21 09:00 12/27/21 10:20 Clopidogrel Bisulfate 75 Mg Tablet PO 12/27/22 08:59 75 mg DAILY PAULINO Administration Cyclobenzaprine HCl 10 mg 12/26/21 20:55 Cyclobenzaprine 10 Mg Tablet PO 12/26/22 20:54 QHS PRN Muscle Spasm Dextrose 0 gm 12/26/21 21:07 Dextrose 50% In Water 25 Gm/50 Ml Syringe IV-PUSH 12/26/22 21:06 PRN PRN Hypoglycemia Fluticasone Propionate 1 spray 12/26/21 20:55 Fluticasone Propionate Greenbush 120 Greenbush/16 Gm Bottle INTRANASAL 12/26/22 20:54 QHS PRN Nasal Congestion Gabapentin 800 mg 12/26/21 22:45 12/27/21 10:20 Gabapentin 800 Mg Tablet PO 12/26/22 22:44 800 mg QID PAULINO Administration Glimepiride 4 mg 12/27/21 08:00 12/27/21 10:20 Glimepiride 4 Mg Tablet PO 12/27/22 07:59 4 mg DAILY@0800 PAULINO Administration Glucose 0 gm 12/26/21 21:07 Dextrose 40% Gel 15 Gm Tube PO 12/26/22 21:06 PRN PRN Hypoglycemia Hydromorphone HCl 0.5 mg 12/26/21 20:56 12/27/21 13:30 Hydromorphone 0.5 Mg/0.5 Ml Syringe IV-PUSH 0.5 mg Q4H PRN Administration Pain Scale 8 - 10 Cefepime HCl 2 gm in 50 mls @ 100 mls/hr 12/27/21 01:00 12/27/21 13:19 Maxipime IV 100 mls/hr Q12H PAULINO Administration Vancomycin HCl 1.25 gm/ 275 mls @ 183.333 mls/hr 12/27/21 03:00 12/27/21 04:50 Dextrose IV 12/27/22 02:59 Infused Q12H PAULINO Infusion Insulin Aspart 0 units 12/26/21 22:00 12/27/21 12:01 Insulin Aspart 300 Units/3 Ml Insuln.Pen SUBCUT 12/26/22 21:59 Not Given TID.WM.HS [facility] Protocol Levothyroxine Sodium 150 mcg 12/27/21 06:30 12/27/21 06:17 Levothyroxine 150 Mcg Tablet PO 12/27/22 06:29 150 mcg DAILY@0630 PAULINO Administration Losartan Potassium 50 mg 12/27/21 09:00 12/27/21 10:20 Losartan 50 Mg Tablet PO 12/27/22 08:59 50 mg QAM PAULINO Administration Meloxicam 15 mg 12/27/21 09:00 12/27/21 10:20 Meloxicam *Nf* 7.5 Mg Tablet PO 12/27/22 08:59 15 mg DAILY PAULINO Administration Metoprolol Succinate 50 mg 12/27/21 09:00 12/27/21 10:21 Metoprolol Succinate 50 Mg Tab.Er.24h PO 12/27/22 08:59 50 mg DAILY PAULINO Administration Non-Formulary Medication 1 mg 12/29/21 09:00 Semaglutide [Ozempic] SUBCUT 12/29/22 08:59 Mo@0900 [facility] Nystatin 1 applic 12/26/21 20:55 Nystatin 100,000 Unit/Gm Oint 15 Gm Tube TOPICAL 12/26/22 20:54 TID PRN rash Ondansetron HCl 4 mg 12/26/21 20:56 Ondansetron 4 Mg/2 Ml Vial IV-PUSH 12/26/22 20:55 Q8H PRN Nausea And Vomiting Oxycodone/Acetaminophen 4 tab 12/27/21 11:00 12/27/21 11:03 Oxycodone/Acetaminophen 5-325 Mg Tablet PO 4 tab BID PAULINO Administration Sennosides 2 tab 12/26/21 20:55 Sennosides 8.6 Mg Tablet PO 12/26/22 20:54 BID PRN constipation Sodium Chloride 0 ml 12/26/21 15:53 12/27/21 13:30 Sodium Chloride 0.9 % 10 Ml Syringe IV-PUSH 12/26/22 15:52 10 ml PRN PRN Administration Flush Vancomycin HCl 1 each 12/26/21 21:26 Vancomycin - Pharmacy Dosing 1 Each Miscell IV ONCE PRN ZZ.Pharmacy Consult Protocol A&P - Hospitalist Assessment/Plan (1) Diabetic infection of left foot: Plan Left diabetic foot ulcer Cellulitis PVD: History of left tibial to peroneal bypass 10/13/21 -Admit to the medical floor -Patient presents with Leukocytosis 13,000, afebrile, surrounding erythema and worsening pain of left lower extremity with wound VAC in place.She reports increased drainage from wound site. Patient reports she has been taking linezolid at home, prior culture reviewed and showed skin neo, and staph epi. -Change to Vanco and cefepime pending repeat cultures -Repeat cultures prelim positive gram-negative bacilli -Podiatry consult -Infectious disease consult Chronic pain: Confirmed home regimen of 20 mg oxycodone twice daily for chronic pain and OARRS. Patient received 4 mg IV morphine, states this has not touched her pain. Will order 0.5 IV Dilaudid as needed. Pain control remains her biggest concern. CODE STATUS confirmed as nursing resident Spent With Patient (min): 35 Documented By: Hailee Berg DO 12/27/21 142 Signed By: <Electronically signed by Hailee Berg DO> 12/27/[address] [facility] Work Phone: [phone]) [phone] History and physical note Author Hailee Berg [facility] December 26, 2021 9:28pm Note Date/Time December 26, 2021 9 :19pm [facility] [address] [place] [address] Hospitalist H&P Signed Patient: Ema Neff MR#: [id number] : 1965 Acct:[id number] Age/Sex: 56 / F Adm Date: 2 Loc: Room: [address] [place] [address] Type: ADM INOo Attending Dr: Hailee Berg DO Copies to: DO Jarvis Patrick MD~ HPI DATE OF EXAMINATION: 12/26/21 CHIEF COMPLAINT: Left foot wound HISTORY OF PRESENT ILLNESS: 56-year-old female with past medical history of peripheral arterial disease status post left lower extremity bypass and prior toe amputation, type 2 diabetes and chronic wound of the left lower extremities presenting with 3 daysof worsening pain, purulent discharge coming from the left foot wound. Last wound VAC change was earlier today. She also reports associated nausea, subjective chills at home. She reports she contacted her motor polarizer who directed her to go to the ER. She is afebrile, work-up shows leukocytosis 13,000, metabolic profiles benign. ESR of 36. Lactate 1.4. X- ray without evidence of bony destruction. On exam she has increased erythema to the medial left foot and tenderness to the left medial calf. X-ray consistent with prior amputation of the second toe, no subcu air or bony destruction. Discussed with ER physician was concerned about worsening cellulitis. Blood cultures and superficial wound cultures were obtained. She was given IV Rocephin and will beadmitted to the medical floor for further care Of note she was discharged 10 6 on oral linezolid after debridement of the wound. She states she is continued the oral antibiotics at home without missed doses. 12 point review systems negative unless noted above PMFSH Vaccinated for COVID-19?: Yes Medical History Anxiety Arthritis Back pain Bronchitis Cellulitis DDD (degenerative disc disease) Depression Diabetes Diabetes mellitus, type 2 DJD (degenerative joint disease) Eczema GERD (gastroesophageal reflux disease) since being dx with thyroid problems Gout History of amputation of toe History of CVA in adulthood rt sided weakness Hyperlipidemia Hypertension Hyperthyroidism Menopause Neuropathy Osteoporosis Sleep apnea no machine Smoker quit 03/2021 Tachycardia Ulcerative colitis Surgical History History of carpal tunnel surgery of right wrist History of cholecystectomy History of endometrial ablation History of surgery on wrist carpal tunnel and ulnar nerve rt arm; carpal tunnel left History of thyroidectomy History of tonsillectomy History of tubal ligation Hx of angioplasty bilateral legs x2, 2 stents on R Hx of cataract surgery bilateral S/P angioplasty with stent rt leg Family History Father Bladder cancer Prostate cancer Diabetes Mother H/O blood clots Social History Smoking Status: Never smoker Tobacco Type: cigarettes Substance Use Type: None Social History Comments: Patient is . She resides with her spouse. She uses no DME. She is on disability due to chronic low back pain which she feels is from a work injury. Meds Medications and Allergies Allergies hydrocodone [From Vicodin] Allergy (Verified 12/26/21 15:54) Hallucinating Steroid Injection Allergy (Uncoded 12/26/21 15:54) Swelling Home Medications losartan 50 mg tablet 50 mg PO QAM htn 11/02/17 [History Confirmed 12/26/21] fluticasone propionate 50 mcg/actuation nasal spray,suspension (Flonase Allergy Relief) 1 spray intranasal QHS PRN Nasal Congestion 03/06/18 [History Confirmed 12/26/21] amitriptyline 25 mg tablet 50 mg PO HS insomnia 01/21/21 [History Confirmed 12/26/21] gabapentin 800 mg tablet 800 mg PO QID neuropathy 01/21/21 [History Confirmed 12/26/21] meloxicam 15 mg tablet 15 mg PO DAILY arthritis 01/21/21 [History Confirmed 12/26/21] nystatin 100,000 unit/gram topical ointment 1 applic topical TID PRN rash 03/10/21 [History Confirmed 12/26/21] aspirin 81 mg tablet,delayed release 81 mg PO DAILY PVD 05/02/21 [History Confirmed 12/26/21] clopidogrel 75 mg tablet 75 mg PO DAILY PVD 05/02/21 [History Confirmed 12/26/21] cyclobenzaprine 5 mg tablet 10 mg PO QHS PRN Muscle Spasm 05/02/21 [History Confirmed 12/26/21] metoprolol succinate 25 mg tablet,extended release 24 hr 50 mg PO DAILY tachycardia/overactive thyroid 05/02/21 [History Confirmed 12/26/21] levothyroxine 125 mcg tablet 150 mcg PO DAILY 09/27/21 [History Confirmed 12/26/21] sennosides 8.6 mg tablet (Senna Lax) 2 tab PO BID PRN constipation 30 days #120 tabs 10/09/21 [Rx Confirmed 12/26/21] semaglutide 1 mg/dose (4 mg/3 mL) subcutaneous pen injector (Ozempic) 1 mg (0.75mL) subcut QWEEK #3 mL 10/17/21 [Rx Confirmed 12/26/21] glimepiride 4 mg tablet 4 mg PO DAILY 11/04/21 [History Confirmed 12/26/21] linezolid 600 mg tablet 600 mg PO BID 14 days #28 tabs 12/05/21 [Rx Confirmed 12/09/21] oxycodone 5 mg tablet 10 mg PO Q4H PRN Pain 12/18/21 [History Confirmed 12/26/21] oxycodone-acetaminophen 5 mg-325 mg tablet 1 - 2 tab PO Q4-6H PRN Pain 12/18/21 [History Confirmed 12/26/21] atorvastatin 20 mg tablet (Lipitor) 40 mg PO QHS hyperlipidemia 12/26/21 [History Confirmed 12/26/21] Exam Physical Exam Vital Signs: Temp Pulse Resp BP Pulse Ox O2 Del Method 98.7 F 87 20 130/92 94 L Room Air 12/26/21 16:18 12/26/21 19:06 12/26/21 19:06 12/26/21 19:06 12/26/21 19:06 12/26/21 19:06 Narrative: General: NAD, alert and oriented x3 HEENT: Normocephalic, atraumatic, pupils are equal and reactive to light, neck is supple and trachea is midline Lungs: Clear on auscultation bilaterally, no wheezing or rhonchi Cardio: RRR, No murmur Abdomen: Soft, NTTP, nondistended with bowel sounds throughout LE: Left lower extremity with wound VAC in place, ulcerated second toe amputation with granulation tissue present on medial aspect of dorsum of left foot has ulceration with surrounding erythema Neuro: A&O X3, Speech is clear Skin: Warm and dry Psych: Appropriate mood and affect Results Lab Results Labs: Laboratory Last Values Corrected WBC 13.1 X10E3/uL (3.8-11.6) H 12/26/21 17:16 Uncorrected WBC Count 13.1 x10E3/uL (4.5-11.0) H 12/26/21 17:16 RBC 4.71 x10E6/uL (3.60-5.00) 12/26/21 17:16 Hgb 13.9 g/dL (11.8-15.4) 12/26/21 17:16 Hct 42.8 % (34.0-46.4) 12/26/21 17:16 MCV 90.9 fl (80-100) 12/26/21 17:16 MCH 29.6 pg (24.7-34.3) 12/26/21 17:16 MCHC 32.6 g/dL (32.0-35.0) 12/26/21 17:16 RDW 16.4 % (11.9-15.3) H 12/26/21 17:16 Plt Count 323 x10E3/uL (150-450) 12/26/21 17:16 MPV 7.0 fl (6.3-10.7) 12/26/21 17:16 Neut % (Auto) 64.9 % (.) 12/26/21 17:16 Lymph % (Auto) 23.9 % (.) 12/26/21 17:16 [place] % (Auto) 6.4 % (.) 12/26/21 17:16 Eos % (Auto) 3.8 % (.) 12/26/21 17:16 Baso % (Auto) 1.0 % (.) 12/26/21 17:16 Neut # (Auto) 8.5 x10E3/uL (1.8-7.7) H 12/26/21 17:16 Lymph # (Auto) 3.1 x10E3/uL (1.00-4.8) 12/26/21 17:16 [place] # (Auto) 0.8 x10E3/uL (0.0-0.8) 12/26/21 17:16 Eos # (Auto) 0.5 x10E3/uL (0.0-0.45) H 12/26/21 17:16 Baso # (Auto) 0.1 x10E3/uL (0.0-0.2) 12/26/21 17:16 Nucleated RBC % (auto) 0.0 % (0-0.5) 12/26/21 17:16 ESR 36 mm/hr (0-29) H 12/26/21 17:16 PT 10.7 Seconds (9.0-12.9) 12/26/21 17:16 INR 1.0 12/26/21 17:16 APTT 29.4 Seconds (25.1-36.5) 12/26/21 17:16 PHA Creatinine Clear 77.51 12/26/21 17:16 Sodium 136 mmol/L (136-146) 12/26/21 17:16 Potassium 4.0 mmol/L (3.5-5.1) 12/26/21 17:16 Chloride 101 mmol/L (95-114) 12/26/21 17:16 Carbon Dioxide 27.1 mmol/L (22.0-30.0) 12/26/21 17:16 Anion Gap 11.9 mEq/L (6.0-15.0) 12/26/21 17:16 BUN 14 mg/dL (9-23) 12/26/21 17:16 Creatinine 1.03 mg/dL (0.44-1.03) 12/26/21 17:16 Est GFR ( Amer) > 60 mL/Min 12/26/21 17:16 Est GFR (Non-Af Amer) 56 mL/Min 12/26/21 17:16 Glucose 74 mg/dL (70-100) 12/26/21 17:16 Lactic Acid 1.4 mmol/L (0.5-2.2) 12/26/21 17:16 Calcium 8.8 mg/dL (8.2-10.2) 12/26/21 17:16 Total Bilirubin 0.3 mg/dL (0.3-1.2) 12/26/21 17:16 AST 20 U/L (10-42) 12/26/21 17:16 ALT 16 U/L (10-60) 12/26/21 17:16 Alkaline Phosphatase 69 U/L (32-92) 12/26/21 17:16 Total Creatine Kinase 63 U/L (22-269) 12/26/21 17:16 C-Reactive Prot, Quant 0.7 mg/dL (0.0-1.0) 12/26/21 17:16 Total Protein 6.9 gm/dL (6.1-7.9) 12/26/21 17:16 Albumin 3.4 gm/dL (3.2-5.5) 12/26/21 17:16 Globulin 3.5 gm/dL 12/26/21 17:16 Albumin/Globulin Ratio 1.0 12/26/21 17:16 COVID-19 PCR Interp N/A 12/26/21 18:51 SARS Antigen (LFIA) Negative (Negative) 12/26/21 18:51 SARS-CoV-2 Rap RNA(RT-PCR) Negative (Negative) 12/26/21 18:51 Microbiology Results Micro: Microbiology - Results from entire visit 12/26/21 18:51 Nasopharyngeal SARS-CoV-2, Influenza & RSV (PCR) - Final 12/26/21 18:51 Nasal SARS Antigen (LFIA) - Final A&P - Hospitalist Assessment/Plan (1) Diabetic infection of left foot: Plan Left diabetic foot ulcer Cellulitis PVD -Admit to the medical floor -Patient presents with Leukocytosis 13,000, afebrile, surrounding erythema and worsening pain of left lower extremity with wound VAC in place.She reports increased drainage from wound site. Patient reports she has been taking linezolid at home, prior culture reviewed and showed skin neo, and staph epi. Repeat cultures ordered in the ER. Blood cultures pending. She received IV Rocephin -Change to Vanco and cefepime pending repeat cultures -Podiatry consult -Infectious disease consult Chronic pain: Confirmed home regimen of 20 mg [place] twice daily for chronic painand OARRS. Patient received 4 mg IV morphine, states this has not touched her pain. Will order 0.5 IV Dilaudid as needed. CODE STATUS confirmed as full Documented By: Hailee Berg DO 12/26/212106 Signed By: <Electronically signed by Hailee Berg DO> 12/26/217 [facility] Work Phone: [phone] 751-697810-05-2022 Progress note Author CWSacha Mehta [facility] December 17, 2021 6:02pm Note Date/Time December 17, 2021 6: 02pm [facility] [address] [place] [address] Podiatry Progress Note Signed Patient: Ema Neff MR#: [id number] : 1965 Acct:[id number] Age/Sex: 56 / F Adm Date: 2 Loc: Room: [address] [place] [address] Type: ADM IN Attending Dr: Kanu Mehta DPGeremias, Copies to: ~ Subjective Subjective Date of Service: Date of Service: 12/17/2021 Time of Service: 17:54 Narrative: Patient seen at this time for first postop visit status post last evening's ulcer debridements as well as I&D of hematoma left distal hallux. Patient has had pain throughout the evening. Thankfully she had pain consult earlier today with Dr. Snyder and she is much improved actually at this time. Patient is being kept overnight for pain management and if patient is still well controlled tomorrow she will be discharged-per patient and nursing statements. Patient has well-controlled pain bilateral lower extremity however does have spinal pain which obviously is outside the scope of my practice. Patient admits to good appetite. She denies fevers, chills, nausea, vomiting, sweats, diarrhea, chest pain, calf pain. She denies injuries or trauma to both feet. Exam Physical Exam Vital Signs: Temp Pulse Resp BP Pulse Ox O2 Del Method O2 Flow Rate 97.3 F L 85 16 119/86 93 L Room Air 6 12/17/21 16:00 12/17/21 16:00 12/17/21 16:00 12/17/21 16:00 12/17/21 16:00 12/17/21 16:00 12/16/21 16:29 Narrative: Patient is awake alert and orient x3 resting comfortably with both feet hanging off the bed-AGAINST MEDICAL ADVICE. Patient's significant other is present at bedside. Dressings were changed earlier this day by nursing staff and patient and the operative surgical ulceration and amputation sites were clean healthy and viable. There is no need for me to review dressing changes at this time and expose patient to potential contamination here in the hospital. Dressings are intact bilaterally over left midfoot diabetic ulceration, distal amputation left hallux site of yesterday's I&D of hematoma and status post amputations of the second toe bilaterally at the MPJ level with dressings all intact with no drainage or discharge running through. Assessment/Plan (1) Diabetic foot ulcer: Plan: 1. Patient today for follow-up examination patient was seen earlier today by the staff nurse who did change patient's dressings with patient who does her owndressing changes at home. Nurse informed me that the operative sites look greatbilateral foot in terms of amputation site at the second toe at the MPJ level bilaterally as well as the I&D of distal hallux left as well as left midfoot diabetic ulceration debridement. 2. Patient was seen earlier today by Dr. Snyder pain specialist and pain is well controlled at this time. 3. Patient will be discharged tomorrow once patient's pain has been well controlled and she can be sent home on her medications which includes Percocet up to 8/day. 4. Patient was advised to maintain strict diabetic control daily. 5. Patient was advised to elevate feet above the heart level throughout the dayavoid swelling and dependency as it hurts and cause impaired healing. 6. Patient was advised to maintain a healthy low-fat oral protein and her protein levels and albumin look good at this time. 7. Patient was advised to change dressings daily do not allow the open wounds to be exposed to air. 8. Any weightbearing/out of bed to be with postop shoe intact bilaterally with walker for further offloading assistance. 9. Patient sponge bathe feet around open wound she should not submerge feet under water or take showers of her feet as risk for further contamination is quite likely. 10. Patient contact office at to schedule for next Wednesday office visit. 1. Discharge patient tomorrow once medical team is clear that patient's pain iswell controlled. I will be in the office all day so please do not wait for me to see the patient tomorrow evening before discharge. Code(s): E11.621 - Type 2 diabetes mellitus with foot ulcer; L97.509 - Non-pressure chronic ulcer of other part of unspecified foot with unspecified severity (2) Status post amputation of toe of left foot: Code(s): Z89.422 - Acquired absence of other left toe(s) (3) Status post amputation of toe of right foot: Code(s): Z89.421 - Acquired absence of other right toe(s) (4) Foot pain, bilateral: Code(s): M79.671 - Pain in right foot; M79.672 - Pain in left foot Time Spent with Patient Time Spent With Patient (min): 30 Documented By: Kanu Mehta DPM, , AUTUMN 08/03 948 Signed By: <Electronically signed by TERESA Mehta> 12/17/211801 [facility] Work Phone: [phone] Consult note Author Javed Snyder [facility] December 17, 2021 5:59pm Note Date/Time December 17, 2021 5: 58pm [facility] [address] [place] [address] Pain Management Consult Note Signed Patient: Ema Neff MR#: [id number] : 1965 Acct:[id number] Age/Sex: 56 / F Adm Date: 2 Loc: Room: [address] [place] [address] Type: ADM IN Attending Dr: Kanu Mehta DPM, Copies to: Kanu Mehta DPM, MS, CWS MD Javed Mascorro MD~ HPI Data of Consult Consult date: 12/17/21 Primary Care Provider: Jarvis Thrasher MD Consult Narrative Reason for consult: Bilateral foot pain Chief complaint: Bilateral foot pain History of present illness: Ms. Neff is a 56 year old female who has been recently admitted to the hospital for surgical debridement of bilateral LE wounds. Patient has history ofPVD, DM with recurrent infections to her feet. Patient underwent debridement yesterday of her bilateral feet wounds and complains mainly of surgical pain. Patient has history of lower back pain and has had injections to her lower back in the past, but reports that is not her main concern at this time. patient usedto be on oxycodone prior to her surgery and her dose was just adjusted today to her home dose. Patient seems to be more comfortable today with the adjusted doseof her meds. PMFSH Vaccinated for COVID-19?: Yes Medical History Anxiety Arthritis Back pain Bronchitis Cellulitis DDD (degenerative disc disease) Depression Diabetes Diabetes mellitus, type 2 DJD (degenerative joint disease) Eczema GERD (gastroesophageal reflux disease) since being dx with thyroid problems Gout History of amputation of toe History of CVA in adulthood rt sided weakness Hyperlipidemia Hypertension Hyperthyroidism Menopause Neuropathy Osteoporosis Sleep apnea no machine Smoker quit 03/2021 Tachycardia Ulcerative colitis Surgical History History of carpal tunnel surgery of right wrist History of cholecystectomy History of endometrial ablation History of surgery on wrist carpal tunnel and ulnar nerve rt arm; carpal tunnel left History of thyroidectomy History of tonsillectomy History of tubal ligation Hx of angioplasty bilateral legs x2, 2 stents on R Hx of cataract surgery bilateral S/P angioplasty with stent rt leg Family History Father Bladder cancer Prostate cancer Diabetes Mother H/O blood clots Social History Smoking Status: Former smoker Tobacco Type: cigarettes Social History Comments: Patient is . She resides with her spouse. She uses no DME. She is on disability due to chronic low back pain which she feels is from a work injury. Meds Medications and Allergies Allergies hydrocodone [From Vicodin] Allergy (Verified 12/03/21 15:33) Hallucinating Steroid Injection Allergy (Uncoded 12/03/21 15:33) Swelling Home Medications losartan 50 mg tablet 50 mg PO QAM htn 11/02/17 [History Confirmed 12/09/21] fluticasone propionate 50 mcg/actuation nasal spray,suspension (Flonase Allergy Relief) 1 spray intranasal QHS PRN Nasal Congestion 03/06/18 [History Confirmed 12/09/21] amitriptyline 25 mg tablet 50 mg PO HS insomnia 01/21/21 [History Confirmed 12/09/21] gabapentin 800 mg tablet 800 mg PO QID neuropathy 01/21/21 [History Confirmed 12/09/21] meloxicam 15 mg tablet 15 mg PO DAILY arthritis 01/21/21 [History Confirmed 12/09/21] nystatin 100,000 unit/gram topical ointment 1 applic topical TID PRN rash 03/10/21 [History Confirmed 12/09/21] aspirin 81 mg tablet,delayed release 81 mg PO DAILY PVD 05/02/21 [History Confirmed 12/09/21] clopidogrel 75 mg tablet 75 mg PO DAILY PVD 05/02/21 [History Confirmed 12/09/21] cyclobenzaprine 5 mg tablet 10 mg PO QHS PRN Muscle Spasm 05/02/21 [History Confirmed 12/09/21] metoprolol succinate 25 mg tablet,extended release 24 hr 50 mg PO DAILY tachycardia/overactive thyroid 05/02/21 [History Confirmed 12/09/21] levothyroxine 125 mcg tablet 150 mcg PO DAILY 09/27/21 [History Confirmed 12/09/21] sennosides 8.6 mg tablet (Senna Lax) 2 tab PO BID PRN constipation 30 days #120 tabs 10/09/21 [Rx Confirmed 12/09/21] atorvastatin 20 mg tablet (Lipitor) 40 mg PO QHS hyperlipidemia #30 tabs 10/17/21 [Rx Confirmed 12/09/21] semaglutide 1 mg/dose (4 mg/3 mL) subcutaneous pen injector (Ozempic) 1 mg (0.75mL) subcut QWEEK #3 mL 10/17/21 [Rx Confirmed 12/09/21] glimepiride 4 mg tablet 4 mg PO DAILY 11/04/21 [History Confirmed 12/09/21] linezolid 600 mg tablet 600 mg PO BID 14 days #28 tabs 12/05/21 [Rx Confirmed 12/09/21] Exam Physical Exam Vital Signs: Temp Pulse Resp BP Pulse Ox O2 Del Method O2 Flow Rate 97.3 F L 85 16 119/86 93 L Room Air 6 12/17/21 16:00 12/17/21 16:00 12/17/21 16:00 12/17/21 16:00 12/17/21 16:00 12/17/21 16:00 12/16/21 16:29 Const General: cooperative and healthy appearing Orientation: alert, awake and oriented x3 HEENT Head: normal to inspection Eyes General: appearance normal, both eyes and all related structures Pupils: PERRL Neck Neck: normal visual inspection Resp Effort & Inspection: normal respiratory effort and able to speak in complete sentences Cardio Jugular venous pressure: no JVD Musc Thoracic/Lumbar Spine: lumbar spinal tenderness Neuro General: patient alert, patient awake, patient oriented x3 and CN's II-XI intactbilaterally Psych Appearance: grossly normal Additional Findings Additional Findings: Bilareral LE surgical wounds covered and grossly dry. Lower lumbar paraspinal tenderness. SLR negative b/l Results Vital Signs Vital Signs: Temp 97.3 F L 12/17/21 16:00 Pulse 85 12/17/21 16:00 Resp 16 12/17/21 16:00 BP 119/86 12/17/21 16:00 Pulse Ox 93 L 12/17/21 16:00 O2 Del Method Room Air 12/17/21 16:00 O2 Flow Rate 6 12/16/21 16:29 Pain Left Foot: Pain Description: Constant Pain Intensity: 10 Labs CBC & Chem 7: 12/16/21 13:49 12/16/21 13:49 Assessment/Plan (1) Cellulitis: Plan: Patient complains mainly of surgical pain which seems to be better controlled today after adjusted her oxycodone level to her home dose. Patient is also on dilaudid and can restart gabapentin by PCP for her pain. Post operative pain meds currently managed by primary service and seems to be appropriate. In terms of her chronic back pain that the patient expressed to me, I don't have any recent imaging of her back to evaluate. I discussed with the patient that her back pain can be addressed as out patient after her infection is well treated. Imaging of the lower back can be ordered as outpatient as well to further evaluate. Code(s): L03.90 - Cellulitis, unspecified Status: Acute Documented By: Javed Snyder MD 12/17/21 1745 Signed By: <Electronically signed by Javed Snyder MD> 12/17/21 9811 [facility] Work Phone: [phone] Progress note Author Elise Marie [facility] December 17, 2021 4:29pm Note Date/Time December 17, 2021 12 :29pm [facility] [address] [place] [address] Hospitalist Progress Note Signed Patient: Ema Neff MR#: [id number] : 1965 Acct:[id number] Age/Sex: 56 / F Adm Date: 2 Loc: Room: [address] [place] [address] Type: ADM IN Attending Dr: Kanu Mehta DPGeremias, Copies to: ~ Date of Service: 12/17/2021 Subjective Subjective Narrative: Patient has been seen and examined today. Status post surgical debridement yesterday. Complains of pain. It seems like she has been taking oxycodone at home which was not on her home list. We will restart. Continue with Dilaudid on as-needed basis. Otherwise she denies any chest pain any shortness of breath any palpitations anydizziness. Physical exam: General -awake, alert, oriented ?3, not in acute distress, sitting in the bed and eating lunch Cardiovascular -S1 with S2, no murmurs, no rubs, no gallops Pulmonary - clear to auscultation bilaterally Gastrointestinal - abdomen is soft, nondistended, nontender, bowel sounds positive, there is no rigidity, no rebound Extremities - Bilateral feet in dressing, with wound VAC on them left mid bella area Neurological -no focal neurological dysfunction noted Exam Physical Exam Vital Signs: Temp Pulse Resp BP Pulse Ox O2 Del Method O2 Flow Rate 36.3 C L 96 H 18 149/84 H 95 Room Air 6 12/17/21 08:00 12/17/21 08:00 12/17/21 08:00 12/17/21 08:00 12/17/21 08:00 12/17/21 08:10 12/16/21 16:29 Objective Lab Results CBC & Chem 7: 12/16/21 13:49 12/16/21 13:49 Microbiology Results Microbiology 12/16/21 14:24 Nasopharyngeal SARS-CoV-2, Influenza & RSV (PCR) - Final Meds Allergies and Active Meds Allergies hydrocodone [From Vicodin] Allergy (Verified 12/03/21 15:33) Hallucinating Steroid Injection Allergy (Uncoded 12/03/21 15:33) Swelling Active Meds: Active Medications Generic Name Dose Route Start Last Admin Trade Name Freq PRN Reason Stop Dose Admin Acetaminophen 650 mg 12/16/21 17:52 Acetaminophen 325 Mg Tablet PO 12/16/22 17:51 Q4H PRN Pain Scale 1 - 5 Amitriptyline HCl 50 mg 12/16/21 22:00 12/16/21 21:44 Amitriptyline 50 Mg Tablet PO 12/16/22 21:59 50 mg HS PAULINO Administration Aspirin 81 mg 12/17/21 09:00 12/17/21 08:01 Aspirin 81 Mg Tablet.Dr PO 12/17/22 08:59 81 mg DAILY PAULINO Administration Atorvastatin Calcium 40 mg 12/16/21 22:00 12/16/21 23:29 Atorvastatin 40 Mg Tablet PO 12/16/22 21:59 Not Given QHS PAULINO Clopidogrel Bisulfate 75 mg 12/17/21 09:00 12/17/21 08:01 Clopidogrel Bisulfate 75 Mg Tablet PO 12/17/22 08:59 75 mg DAILY PAULINO Administration Cyclobenzaprine HCl 10 mg 12/16/21 17:50 12/16/21 20:04 Cyclobenzaprine 10 Mg Tablet PO 12/16/22 17:49 10 mg QHS PRN Administration Muscle Spasm Dextrose 12.5 gm 12/16/21 16:20 Dextrose 50% In Water 25 Gm/50 Ml Syringe IV-PUSH 12/16/22 16:19 PRN PRN Hypoglycemia Dextrose 0 gm 12/16/21 17:52 Dextrose 50% In Water 25 Gm/50 Ml Syringe IV-PUSH 12/16/22 17:51 PRN PRN Hypoglycemia Gabapentin 800 mg 12/16/21 18:00 12/17/21 08:00 Gabapentin 800 Mg Tablet PO 12/16/22 17:59 800 mg QID PAULION Administration Glucose 0 gm 12/16/21 17:52 Dextrose 40% Gel 15 Gm Tube PO 12/16/22 17:51 PRN PRN Hypoglycemia Hydralazine HCl 10 mg 12/16/21 17:52 Hydralazine 20 Mg/Ml Vial IV-PUSH 12/16/22 17:51 Q4H PRN if SBP > 185 Hydromorphone HCl 0.5 mg 12/16/21 17:52 12/17/21 08:06 Hydromorphone 0.5 Mg/0.5 Ml Syringe IV-PUSH 0.5 mg Q6H PRN Administration pain Lactated Ringer's 1,000 mls @ 20 mls/hr 12/16/21 16:20 12/16/21 17:30 Lactated Ringers IV 12/17/21 16:19 Not Given .Q24H ONE Insulin Aspart 0 units 12/16/21 22:00 12/17/21 12:18 Insulin Aspart 300 Units/3 Ml Insuln.Pen SUBCUT 12/16/22 21:59 Not Given TID.WM.HS PAULINO Protocol Insulin Human Regular 0 unit 12/16/21 16:20 Insulin Regular, Human 300 Unit/3 Ml SUBCUT 12/16/22 16:19 PROTOCOL PRN High Blood Glucose Protocol Levothyroxine Sodium 150 mcg 12/17/21 06:30 12/17/21 05:48 Levothyroxine 150 Mcg Tablet PO 12/17/22 06:29 150 mcg DAILY@0630 PAULINO Administration Linezolid 600 mg 12/16/21 21:00 12/17/21 08:01 Linezolid 600 Mg Tablet PO 600 mg BID PAULINO Administration Losartan Potassium 50 mg 12/17/21 09:00 12/17/21 08:01 Losartan 50 Mg Tablet PO 12/17/22 08:59 50 mg QAM PAULINO Administration Metoprolol Succinate 50 mg 12/17/21 09:00 12/17/21 08:01 Metoprolol Succinate 50 Mg Tab.Er.24h PO 12/17/22 08:59 50 mg DAILY PAULINO Administration Non-Formulary Medication 1 mg 12/23/21 09:00 Semaglutide [Ozempic] SUBCUT 12/23/22 08:59 QWEEK PAULINO Oxycodone HCl 10 mg 12/17/21 12:13 Oxycodone Ir 5 Mg Tablet PO Q4HR PRN pain Sennosides 2 tab 12/16/21 17:50 Sennosides 8.6 Mg Tablet PO 12/16/22 17:49 BID PRN constipation Sodium Chloride 0 ml 12/16/21 16:20 12/17/21 08:06 Sodium Chloride 0.9 % 10 Ml Syringe IV-PUSH 12/16/22 16:19 10 ml PRN PRN Administration Flush A&P - Hospitalist Assessment/Plan (1) Cellulitis: Plan 1. Bilateral foot infection due to peripheral arterial disease Status post left lower extremity bypass in October 2021 with previous amputation of the second toe Status post previous right second toe amputation Status post on December 16 1.? Subcutaneous tissue excisional debridement of surgical wound right forefoot: Less than 20 cm?. 2.? Subcutaneous tissue excisional debridement of surgical wound left forefoot: Less than 20 cm?. 3.? Subcutaneous tissue excisional debridement of left medial diabetic foot ulceration: Less than 20 cm?. 4.? Incision and drainage of hematoma left distal hallux x1. Continue with antibiotics and pain management 2. Diabetes mellitus type 2, continue with current therapy 3. DVT prophylaxis Documented By: Elise Marie MD 12/17/21 1225 Signed By: <Electronically signed by Elise Marie MD> 12/17/[address] [facility] Work Phone: [phone] 178-204710-05-2022 Progress note Author Elise Marie [facility] December 17, 2021 12:25pm Note Date/Time December 16, 2021 5: 50pm [facility] [address] [place] [address] Hospitalist Progress Note Signed Patient: Eam Neff MR#: [id number] : 1965 Acct:[id number] Age/Sex: 56 / F Adm Date: 2 Loc: 4N Room: [address] [place] [address] Type: ADM IN Attending Dr: Kanu Mehta DPGeremias, Copies to: ~ Date of Service: 12/16/2021 Subjective Subjective Narrative: Mrs. Neff 56-year-old female with past medical history of type 2 diabetes mellitus with neuropathy, peripheral arterial disease s/p multiple interventionsbilateral legs with recent left lower extremity bypass, hypertension, hyperlipidemia, and current smoker that presented for left foot debridement.? Patient is status post amputation of bilateral second toes. On both there is open wound lesions. Also she has open on the dorsal aspect of the medial part of the left foot and the wound VAC noted in the mid bella area Patient complains of pain. Denies any fever any chills. She denies any shortness of breath any chest pain any palpitations any dizzinessany lightheadedness Physical exam: Patient was evaluated in the preoperative area General -awake, alert, oriented ?3, not in acute distress, sitting in the bed Cardiovascular -S1 with S2, no murmurs, no rubs, no gallops Pulmonary - clear to auscultation bilaterally Gastrointestinal - abdomen is soft, nondistended, nontender, bowel sounds positive, there is no rigidity, no rebound Extremities - As noted above Neurological -no focal neurological dysfunction noted Exam Physical Exam Vital Signs: Temp Pulse Resp BP Pulse Ox O2 Del Method 36.4 C 88 16 127/88 99 Room Air 12/16/21 16:58 12/16/21 16:58 12/16/21 16:58 12/16/21 16:58 12/16/21 16:58 12/16/21 16:58 Objective Lab Results CBC & Chem 7: 12/16/21 13:49 12/16/21 13:49 Microbiology Results Microbiology 12/16/21 14:24 Nasopharyngeal SARS-CoV-2, Influenza & RSV (PCR) - Final Meds Allergies and Active Meds Allergies hydrocodone [From Vicodin] Allergy (Verified 12/03/21 15:33) Hallucinating Steroid Injection Allergy (Uncoded 12/03/21 15:33) Swelling Active Meds: Active Medications Generic Name Dose Route Start Last Admin Trade Name Freq PRN Reason Stop Dose Admin Dextrose 12.5 gm 12/16/21 16:20 Dextrose 50% In Water 25 Gm/50 Ml Syringe IV-PUSH 12/16/22 16:19 PRN PRN Hypoglycemia Dextrose/Lactated Ringer's 1,000 mls @ 50 mls/hr 12/16/21 16:20 5 % Dextrose-Lactated Ringers IV 12/16/21 22:20 .Q20H PRN Hypoglycemia Lactated Ringer's 1,000 mls @ 20 mls/hr 12/16/21 16:20 12/16/21 17:30 Lactated Ringers IV 12/17/21 16:19 Not Given .Q24H ONE Insulin Human Regular 0 unit 12/16/21 16:20 Insulin Regular, Human 300 Unit/3 Ml SUBCUT 12/16/22 16:19 PROTOCOL PRN High Blood Glucose Protocol Lidocaine HCl 0.1 ml 12/16/21 16:20 Lidocaine 1% 50 Ml Vial INTRADERMA 12/16/21 22:20 PREOP PRN Venipuncture Ondansetron HCl 4 mg 12/16/21 16:00 Ondansetron 4 Mg/2 Ml Vial IV-PUSH 12/16/21 19:00 ONCE PRN Nausea/Vomiting Sodium Chloride 0 ml 12/16/21 16:20 Sodium Chloride 0.9 % 10 Ml Syringe IV-PUSH 12/16/22 16:19 PRN PRN Flush A&P - Hospitalist Assessment/Plan (1) Cellulitis: Plan 1. Peripheral arterial disease associated status post Left leg anterior tibial to peroneal artery bypass with ipsilateral reverse greater saphenous vein in October 2021, status post previous amputation of bilateral second toes with currently open wounds noted bilaterally, with wound on the medial dorsal aspect of the left foot and mid bella area with wound Further care per orthopedic, plan for wound debridement 2. Diabetes mellitus type 2 3. DVT prophylaxis Documented By: Elise Marie MD 12/16/21 1745 Signed By: <Electronically signed by Elise Marie MD> 12/17/21 1222 [facility] Work Phone: [phone] 397-248110-04-2022 Consult note Author AUTUMN Mehta [facility] December 16, 2021 6:39pm Note Date/Time December 16, 2021 6: 39pm [facility] [address] [place] [address] Consultation Note Signed Patient: Ema Neff MR#: [id number] : 1965 Acct:[id number] Age/Sex: 56 / F Adm Date: 2 Loc: 4N Room: [address] [place] [address] Type: ADM IN Attending Dr: Kanu Mehta DPM, Copies to: Kanu Mehta DPM, MS, CWS Jarvis Thrasher MD~ Date of Service: 12/16/2021 Consultation Narrative Note CONSULTATION NOTE Consult Note: 1. Please see patient's preoperative H&P in patient's chart that was dictated from my office and was brought to the hospital by myself. That will suffice is my admission note on this patient's behalf. Please see orders also faxed to [facility] earlier today. Documented By: Kanu Mehta DPM, MS, CWS 07/04 Signed By: <Electronically signed by TERESA Mehta> 12/16/211838 [facility] Work Phone: [phone] Discharge summary Author Rodney Marti [facility] December 06, 2021 11:58am Note Date/Time December 06, 2021 11:58am [facility] [address] [place] [address] Discharge Summary Signed Patient: Ema Neff MR#: [id number] : 1965 Acct:[id number] Age/Sex: 56 / F Adm Date: 2 Loc: Room: 6P9668-[address]: Rodney Marti MD Copies to: MD Jarvis Barrientos MD~ Providers Date of Discharge: 12/06/21 Discharging Provider: Rodney Marti Primary Care Provider: Jarvis Thrasher Consults: 12/03/21 18:48 Consult to Infectious Diseases Routine 12/03/21 21:24 Consult to Vascular Surgery Routine Discharge Diagnosis (1) Left leg cellulitis: (2) Wound infection: (3) Diabetes mellitus: (4) PVD (peripheral vascular disease): Final Diagnosis Final Discharge Diagnosis: As above Summary Hospital Course Hospital course: Patient is a 56-year-old female, with known history of PVD, who underwent on October left tibial to peroneal artery bypass surgery from greater saphenous vein.? The postoperative course was complicated by a wound infection which did not respond to oral antibiotics as outpatient.? Patient presented to the emergency department on November 04, with wound dehiscence and purulent material discharge, as well as cellulitic changes.? She was hospitalized until November 09, she received Zosyn and vancomycin, seen by vascular surgeon, underwent debridement and wound VAC placement, in addition she had also debridement on the left foot as well, cultures remain negative.? Patient was stabilized and transition to doxycycline and Augmentin for 1 week.? This time patient is back complaining of worsening left leg swelling, edema, pain.? She states she could not apply wound VAC on her wound due to severe pain for which she decided to come to the ER.? Patient reported subjective fever and chills, states that she thinks her wound did not improve with oral antibiotics.? Patientwas admitted for IV antibiotics given failed outpatient p.o. antibiotics treatment of left lower extremity cellulitis. Vascular was consulted, recommended to obtain left leg ultrasound which did not reveal any abscess for which there was no plan for I&D during this admission. ID was consulted for antibiotic stewardship. Blood cultures remained negative, Previous cultures a few weeks back with diphtheroids. Recommended oral linezolid as directed. Patient was told to hold Cymbalta while on linezolid given severe interaction and high risk for serotonin syndrome. Patient to continue wound VAC as per vascular and wound care team. Patient remained afebrile and hemodynamically stable for discharge home. Discussed with patient at bedside, all questions answered. Condition Condition at Discharge: Stable Time Spent with Patient Time spent providing/coordinating discharge services (# min): 45 Surgeries and Procedures Operation Date: 12/05/21 13:45 <No data on this case meets the specified criteria> Diagnostic Studies Completed and Pending Studies Pending studies at discharge: 12/03/21 17:35 Blood Culture Stat 12/07/21 05:00 BMP [Basic Metabolic Panel] [CHEM] IN AM CBC [Complete Blood Count Auto Diff] IN AM 12/07/21 22:30 Vancomycin,Peak [TOX] Timed 12/08/21 19:00 Vancomycin,Trough [TOX] Timed Preliminary micro results at discharge 12/03/21 17:35 Blood Culture - Preliminary Blood - Left Hand No Growth 2 Days 12/03/21 17:32 Blood Culture - Preliminary Blood - Left Antecubital No Growth 2 Days Labs on day of discharge: 12/06/21 04:28: PHA Creatinine Clear 80.16, Sodium 137, Potassium 4.0, Chloride 100, Carbon Dioxide 31.3 H, Anion Gap 9.7, BUN 10, Creatinine 1.00, Est GFR ( Amer) > 60, Est GFR (Non-Af Amer) 58, Glucose 100, Calcium 9.0 12/06/21 04:28: Corrected WBC 10.9, Uncorrected WBC Count 10.9, RBC 4.48, Hgb 13.4, Hct 41.4, MCV 92.3, MCH 29.8, MCHC 32.3, RDW 16.3 H, Plt Count 347, MPV 7.0, Neut % (Auto) 59.7, Lymph % (Auto) 28.9, [place] % (Auto) 7.7, Eos % (Auto) 3.1, Baso % (Auto) 0.6, Neut # (Auto) 6.5, Lymph # (Auto) 3.1, [place] # (Auto) 0.8, Eos # (Auto) 0.3, Baso # (Auto) 0.1, Nucleated RBC % (auto) 0.0 12/05/21 18:19: Vancomycin Trough 17.4 Exam Physical Exam Vital Signs: Temp Pulse Resp BP Pulse Ox O2 Del Method 97.4 F L 64 18 116/82 99 Room Air 12/06/21 07:58 12/06/21 07:58 12/06/21 07:58 12/06/21 07:58 12/06/21 07:58 12/06/21 08:00 Narrative: Const General: cooperative, comfortable, in no acute distress HEENT Head: normal to inspection Nose: external nose normal Mouth: oral mucosae normal and lip normal Eyes Conjunctivae: conjunctivae normal Neck Neck: normal visual inspection Chest inspection: normal inspection of the chest Resp Effort & Inspection: normal respiratory effort, not labored, no respiratory distress Auscultation: clear to auscultation b/l, no crackles, no wheezes Cardio Rate: normal rate Rhythm: regular rhythm Heart Sounds: S1 normal, S2 normal and no murmurs GI Inspection: non-distended Palpation: soft, not firm and nontender Neuro General: alert, awake and oriented x3. No obvious focal deficit Extrem LLE: left leg dressing noted, improving swelling and erythema Warm extremities Psych Appearance: grossly normal Affect: normal affect Discharge Plan Discharge Plan Patient Disposition: Home Health [facility] Activity: Ambulate as Tolerated Diet: Diabetic Additional Instructions: -Take Linezolid as prescribed. You need to stop taking Cymbalta while you taking this new antibiotics Linezolid due to high risk for serotonin syndrome. -Follow-up with vascular surgery clinic as scheduled Prescriptions: New linezolid 600 mg tablet 600 mg PO BID 14 Days Qty: 28 0RF Continued fluticasone propionate [Flonase Allergy Relief] 50 mcg/actuation [place],Suspension 1 spray INTRANASAL QHS PRN (Reason: Nasal Congestion) meloxicam 15 mg tablet 15 mg PO DAILY Hold Instructions: Resume on 08/08/21. Label Comments: TAKE 1 TABLET BY MOUTH EVERY DAY gabapentin 800 mg tablet 800 mg PO QID Label Comments: TAKE 1 TABLET BY MOUTH THREE TIMES DAILY amitriptyline 25 mg tablet 50 mg PO HS Label Comments: TAKE 1 TABLET BY MOUTH AT BEDTIME metoprolol succinate 25 mg tablet extended release 24 hr 50 mg PO DAILY Label Comments: TAKE 1 TABLET BY MOUTH EVERY DAY cyclobenzaprine 5 mg tablet 10 mg PO QHS PRN (Reason: Muscle Spasm) Label Comments: TAKE 1 TABLET BY MOUTH THREE TIMES DAILY NEEDED FOR 10 DAYS clopidogrel 75 mg tablet 75 mg PO DAILY Hold Instructions: Resume on 08/08/21. aspirin 81 mg tablet,delayed release (DR/EC) 81 mg PO DAILY Ozempic 1 mg/dose (4 mg/3 mL) pen injector 1 mg subcut QWEEK Qty: 3 4RF Rx Instructions: pt. takes on mondays. atorvastatin [Lipitor] 20 mg tablet 40 mg PO QHS Qty: 30 0RF glimepiride 4 mg Tablet 4 mg PO DAILY Xarelto 10 mg Tablet 10 mg PO DAILY Qty: 14 0RF losartan 50 mg tablet 50 mg PO QAM Label Comments: TAKE 1 TABLET BY MOUTH ONE TIME A DAY nystatin 100,000 unit/gram ointment 1 applic TOPICAL TID PRN (Reason: rash) Label Comments: apply topically to skin fold TWICE DAILY Rx Instructions: Bilateral groins levothyroxine 125 mcg tablet 150 mcg PO DAILY Label Comments: TAKE 1 TABLET BY MOUTH IN THE MORNING ON AN EMPTY STOMACH DAILY sennosides [Senna Lax] 8.6 mg Tablet 2 tab PO BID PRN (Reason: constipation) 30 Days Qty: 120 0RF oxycodone 15 mg tablet 15 mg PO TID PRN (Reason: pain) Held duloxetine 30 mg capsule,delayed release(DR/EC) 30 mg PO DAILY Hold Instructions: Resume on 12/21/21. Hold this medication while your are taking the new antibiotics Linezolid due to severe interaction between both and risk for serotonin syndrome Label Comments: TAKE 1 CAPSULE BY MOUTH DAILY Other Ambulatory Orders: Initiate Home Health (Routine) Timeframe: 1 Day Location: Determined by Patient Ordered By: Rodney Marti Follow Up: Jarvis Thrasher MD [Primary Care Provider] - Zaid Mon MD [Active Staff] - 12/24/21 11:00 am Documented By: Rodney Marti MD 12/06/21 11 53 Signed By: <Electronically signed by Rodney Marti MD> 12/06/[address] [facility] Work Phone: [phone]) 318-745009-23-2022 Progress note Author Rodney Marti [facility] December 05, 2021 2:59pm Note Date/Time December 05, 2021 2:56pm [facility] [address] [place] [address] Hospitalist Progress Note Signed Patient: Ema Neff MR#: [id number] : 1965 Acct:[id number] Age/Sex: 56 / F Adm Date: 2 Loc: Room: [address] [place] [address] Type: ADM IN Attending Dr: Rodney Marti MD Copies to: ~ Date of Service: 12/05/2021 Subjective Subjective Narrative: Patient was seen and examined at bedside. Ambulating and out of bed to chair. Pain is well controlled. Remained afebrile and hemodynamically stable. Still having left leg pain but reports that leg swelling and redness improving. Exam Physical Exam Vital Signs: Temp Pulse Resp BP Pulse Ox O2 Del Method 97.7 F 79 16 127/88 97 Room Air 12/05/21 12:18 12/05/21 12:18 12/05/21 12:18 12/05/21 12:18 12/05/21 12:18 12/05/21 12:18 Narrative: Const General: cooperative, seems more comfortable today, in no acute distress HEENT Head: normal to inspection Nose: external nose normal Mouth: oral mucosae normal and lip normal Eyes Conjunctivae: conjunctivae normal Neck Neck: normal visual inspection Chest inspection: normal inspection of the chest Resp Effort & Inspection: normal respiratory effort, not labored, no respiratory distress Auscultation: clear to auscultation b/l, no crackles, no wheezes Cardio Rate: normal rate Rhythm: regular rhythm Heart Sounds: S1 normal, S2 normal and no murmurs GI Inspection: non-distended Palpation: soft, not firm and nontender Neuro General: alert, awake and oriented x3. No obvious focal deficit Extrem LLE: left leg dressing noted, less swelling and erythema compared to on admission in ER Warm extremities Psych Appearance: grossly normal Affect: normal affect Objective Lab Results CBC & Chem 7: 12/05/21 05:00 12/05/21 05:00 Microbiology Results Microbiology 12/03/21 17:35 Blood - Left Hand Blood Culture - Preliminary No Growth 1 Day 12/03/21 17:32 Blood - Left Antecubital Blood Culture - Preliminary No Growth 1 Day Meds Allergies and Active Meds Allergies hydrocodone [From Vicodin] Allergy (Verified 12/03/21 15:33) Hallucinating Steroid Injection Allergy (Uncoded 12/03/21 15:33) Swelling Active Meds: Active Medications Generic Name Dose Route Start Last Admin Trade Name Freq PRN Reason Stop Dose Admin Acetaminophen 650 mg 12/03/21 18:43 Acetaminophen 325 Mg Tablet PO 12/03/22 18:42 Q6HR PRN Pain Scale 1 - 3 or fever Amitriptyline HCl 50 mg 12/03/21 22:00 12/04/21 21:30 Amitriptyline 50 Mg Tablet PO 12/03/22 21:59 50 mg HS PAULINO Administration Aspirin 81 mg 12/04/21 09:00 12/05/21 08:52 Aspirin 81 Mg Tablet. PO 12/04/22 08:59 Not Given DAILY PAULINO Atorvastatin Calcium 40 mg 12/03/21 22:00 12/04/21 21:30 Atorvastatin 40 Mg Tablet PO 12/03/22 21:59 40 mg QHS PAULINO Administration Clopidogrel Bisulfate 75 mg 12/04/21 09:00 12/05/21 08:52 Clopidogrel Bisulfate 75 Mg Tablet PO 12/04/22 08:59 Not Given DAILY PAULINO Collagenase 1 applic 12/04/21 14:30 12/05/21 08:51 Collagenase 250 Unit/Gm Oint 30 Gm Tube TOPICAL 12/14/21 14:29 1 applic DAILY PAULINO Administration Cyclobenzaprine HCl 10 mg 12/03/21 21:06 12/04/21 21:30 Cyclobenzaprine 10 Mg Tablet PO 12/03/22 21:05 10 mg QHS PRN Administration Muscle Spasm Docusate Sodium 100 mg 12/03/21 18:43 Docusate 100 Mg Capsule PO 12/03/22 18:42 BID PRN Constipation Duloxetine HCl 30 mg 12/04/21 09:00 12/05/21 08:51 Duloxetine 30 Mg Capsule. PO 12/04/22 08:59 30 mg DAILY PAULINO Administration Enoxaparin Sodium 40 mg 12/04/21 10:00 12/05/21 09:13 Enoxaparin 40 Mg/0.4 Ml Syringe SUBCUT 12/04/22 09:59 Not Given DAILY@10 PAULINO Fluticasone Propionate 1 spray 12/03/21 21:06 Fluticasone Propionate Green[place] 120 [place]/16 Gm Bottle INTRANASAL 12/03/22 21:05 QHS PRN Nasal Congestion Gabapentin 800 mg 12/03/21 22:00 12/05/21 08:51 Gabapentin 800 Mg Tablet PO 12/03/22 21:59 800 mg QID PAULINO Administration Hydromorphone HCl 0.5 mg 12/04/21 05:28 12/05/21 12:45 Hydromorphone 0.5 Mg/0.5 Ml Syringe IV-PUSH 0.5 mg Q4H PRN Administration Pain Vancomycin HCl 1 gm in 250 mls @ 250 mls/hr 12/04/21 06:30 12/05/21 07:53 Vancomycin IV 250 mls/hr Q12H PAULINO Administration Cefepime HCl 2 gm in 50 mls @ 100 mls/hr 12/04/21 05:00 12/05/21 06:21 Maxipime IV 100 mls/hr Q12H PAULINO Administration Levothyroxine Sodium 150 mcg 12/04/21 06:30 12/05/21 07:53 Levothyroxine 150 Mcg Tablet PO 12/04/22 06:29 150 mcg DAILY@0630 PAULINO Administration Melatonin 3 mg 12/03/21 18:43 Melatonin 3 Mg Tablet PO 12/03/22 18:42 QHS PRN Insomnia Metoprolol Succinate 50 mg 12/04/21 09:00 12/05/21 08:51 Metoprolol Succinate 50 Mg Tab.Er.24h PO 12/04/22 08:59 50 mg DAILY PAULINO Administration Ondansetron HCl 4 mg 12/05/21 13:00 Ondansetron 4 Mg/2 Ml Vial IV-PUSH 12/05/22 12:59 Q6H PRN Nausea And Vomiting Oxycodone HCl 5 mg 12/03/21 18:43 12/03/21 19:38 Oxycodone Ir 5 Mg Tablet PO 5 mg Q6HR PRN Administration Pain Scale 4 - 7 Oxycodone HCl 15 mg 12/03/21 21:06 12/04/21 16:25 Oxycodone Ir 15 Mg Tablet PO 15 mg TID PRN Administration pain Prochlorperazine Edisylate 5 mg 12/03/21 18:43 Prochlorperazine Edisylate 10 Mg/2 Ml Vial IM 12/03/22 18:42 Q4H PRN Nausea And Vomiting Sennosides 2 tab 12/03/21 21:06 Sennosides 8.6 Mg Tablet PO 12/03/22 21:05 BID PRN constipation Sodium Chloride 0 ml 12/03/21 15:32 12/04/21 08:49 Sodium Chloride 0.9 % 10 Ml Syringe IV-PUSH 12/03/22 15:31 10 ml PRN PRN Administration Flush Vancomycin HCl 1 each 12/03/21 21:02 Vancomycin - Pharmacy Dosing 1 Each Miscell IV PRN PRN ZZ.Pharmacy Consult Protocol A&P - Hospitalist Assessment/Plan (1) Left leg cellulitis: (2) Wound infection: (3) Diabetes mellitus: (4) PVD (peripheral vascular disease): Plan -Remained afebrile. WBC has normalized. Her pain is controlled with current regimen. Her left leg alcohol still operator but reports improvement in swelling and redness and pain. -Blood cultures negative to date at 24hr. Follow up final culture -Continue Vanco and Cefepime while inpatient -Infectious disease team input appreciated. Recommended Oral Linezolid on discharge. Prescription was sent. -Vascular team input appreciate. No plan for I&D given negative US for abscess. Continue conservative management. Will need outpatient follow up with vascular as scheduled. Resumed home medications as needed CODE STATUS full code DVT prophylaxis with Lovenox Discussed with patient at bedside. All questions answered Discharge planning in the am Documented By: Rodney Marti MD 12/05/21 14 53 Signed By: <Electronically signed by Rodney Marti MD> 12/05/21 0261 [facility] Work Phone: [phone]) [phone] Progress note Author Zaid Mon [facility] December 05, 2021 12:52pm Note Date/Time December 05, 2021 10:24am [facility] [address] [place] [address] Vascular Surgery Progress Note Signed Patient: Ema Neff MR#: [id number] : 1965 Acct:[id number] Age/Sex: 56 / F Adm Date: 2 Loc: Room: [address] [place] [address] Type: ADM IN Attending Dr: Rodney Marti MD Copies to: ~ Date of Service: 12/05/2021 Subjective Subjective Interval history: Patient is resting comfortably in her bed this morning visiting with family at bedside. She has no complaints and her leg is feeling a bit better today. Ultrasound was obtained of the left lower extremity wound due to erythema and edema on physical examination. Findings show no evidence of fluid collection tosuggest the presence of abscess or hematoma. There is no need to proceed with I&D today. Exam Physical Exam Vital Signs: Temp Pulse Resp BP Pulse Ox O2 Del Method 97.6 F 83 16 143/84 H 93 L Room Air 12/05/21 08:00 12/05/21 08:00 12/05/21 08:00 12/05/21 08:00 12/05/21 08:00 12/05/21 08:00 Narrative: We did not remove the dressing today. Erythema outside the dressing limitationsdoes look like it is improving. She admits to less pain today. Dressings are clean, dry, and intact. Const General: cooperative, comfortable and no acute distress Objective Labs CBC & Chem 7: 12/05/21 05:00 12/05/21 05:00 Other Labs: Laboratory Results - last 24 hr 12/05/21 12/05/21 12/05/21 05:00 05:00 08:59 Corrected WBC 9.2 Uncorrected WBC Count 9.2 RBC 4.41 Hgb 13.2 Hct 40.6 MCV 92.2 MCH 30.0 MCHC 32.5 RDW 16.2 H Plt Count 330 MPV 7.0 Neut % (Auto) 60.1 Lymph % (Auto) 26.5 [place] % (Auto) 8.4 Eos % (Auto) 3.6 Baso % (Auto) 1.4 Neut # (Auto) 5.5 Lymph # (Auto) 2.4 [place] # (Auto) 0.8 Eos # (Auto) 0.3 Baso # (Auto) 0.1 Nucleated RBC % (auto) 0.0 PHA Creatinine Clear 89.29 Sodium 136 Potassium 3.7 Chloride 101 Carbon Dioxide 28.3 Anion Gap 10.4 BUN 10 Creatinine 0.90 Est GFR ( Amer) > 60 Est GFR (Non-Af Amer) > 60 Glucose 89 Calcium 8.8 Vancomycin Peak 23.6 Microbiology Microbiology: Microbiology - Results from entire visit 12/03/21 17:35 Blood - Left Hand Blood Culture - Preliminary No Growth 1 Day 12/03/21 17:32 Blood - Left Antecubital Blood Culture - Preliminary No Growth 1 Day 12/03/21 17:32 Nasal SARS Antigen (LFIA) - Final A&P - Vascular Assessment/Plan (1) Cellulitis: There is no evidence of abscess formation on the lower extremity duplex study. Edema is noted at the subcutaneous tissues suspicious for cellulitis. She has remained afebrile throughout her hospital stay. She is currently being treated with IV antibiotics Managed by infectious disease. There is no need to proceed with plans for I&D. We will continue management of this wound with wound VAC the same. She will have her family bring her wound VAC from home so nursing canreapply. We we will plan to see her in the office as previously scheduled for follow-up on 12/24/2021 at 11 AM. Wound VAC will continue to be managed by homehealth and change [address] Mon here. I did see this patient today with the HAND BENDER. I agree with above. No need for ID at this time. Cont wound vac and ABX. FU at office. Code(s): L03.90 - Cellulitis, unspecified Status: Acute (2) Wound infection: Code(s): T14.8XXA - Other injury of unspecified body region, initial encounter; L08.9 - Local infection of the skin and subcutaneous tissue, unspecified Status: Acute (3) Diabetes mellitus: Qualifiers: Diabetes mellitus type: type 2 Code(s): E11.9 - Type 2 diabetes mellitus without complications Status: Chronic (4) PVD (peripheral vascular disease): Code(s): I73.9 - Peripheral vascular disease, unspecified Status: Acute Documented By: Alejandra Middleton APRN 12/05/21 1 023 Signed By: <Electronically signed by NAOMI Middleton> 12/05/21 1238 <Electronically signed by Zaid Mon MD> 12/05/21 1252 [facility] Work Phone: [phone]) [phone] Progress note Author Rolando Sykes [facility] December 05, 2021 12:50pm Note Date/Time December 05, 2021 12:50pm [facility] [address] [place] [address] Infect. Disease Progress Note Signed Patient: Ema Neff MR#: [id number] : 1965 Acct:[id number] Age/Sex: 56 / F Adm Date: 2 Loc: Room: [address] [place] [address] Type: ADM IN Attending Dr: Rodney Marti MD Copies to: ~ Date of Service: 12/05/2021 Subjective Interval history: Still complaining of a lot of leg discomfort but is now not scheduled for surgery due to an ultrasound of the leg but did not show any underlying abscess. Exam Physical Exam Vital Signs: Temp Pulse Resp BP Pulse Ox O2 Del Method 97.7 F 79 16 127/88 97 Room Air 12/05/21 12:18 12/05/21 12:18 12/05/21 12:18 12/05/21 12:18 12/05/21 12:18 12/05/21 12:18 Const General: cooperative and comfortable Orientation: alert, awake and oriented x3 HEENT Head: normal to inspection Ears: hearing grossly normal bilaterally Nose: external nose normal Face and sinus: normal facial exam Eyes General: appearance normal, both eyes and all related structures Neck Neck: normal visual inspection Chest Chest palpation & inspection: normal inspection of the chest Resp Effort & Inspection: normal respiratory effort Cardio Palpation: normal PMI Rate: regular rate Rhythm: regular rhythm GI Inspection: normal to inspection Palpation: soft and nontender Auscultation: normal bowel sounds Skin Other: Left lower extremity still with significant swelling and erythema with tenderness. Dressing over open area Left foot wound on the second toe ulceration with some purulent drainage as well. Neuro General: patient oriented x3 Extrem General: normal to inspection Objective Labs CBC/BMP: CBC, BMP 12/05/21 12/05/21 05:00 05:00 Corrected WBC 9.2 Uncorrected WBC Count 9.2 RBC 4.41 Hgb 13.2 Hct 40.6 Plt Count 330 Sodium 136 Potassium 3.7 Chloride 101 Carbon Dioxide 28.3 Anion Gap 10.4 BUN 10 Creatinine 0.90 Calcium 8.8 Labs: 12/05/21 05:00 BUN 10 Creatinine 0.90 Microbiology Microbiology: 12/03/21 17:35 Blood Culture - Preliminary Blood - Left Hand No Growth 1 Day 12/03/21 17:32 Blood Culture - Preliminary Blood - Left Antecubital No Growth 1 Day 12/03/21 17:32 SARS Antigen (LFIA) - Final Nasal Allergies and Medications Allergies and Active Meds Allergies hydrocodone [From Vicodin] Allergy (Verified 12/03/21 15:33) Hallucinating Steroid Injection Allergy (Uncoded 12/03/21 15:33) Swelling Active Medications Acetaminophen (Acetaminophen 325 Mg Tablet) 650 mg PO Q6HR PRN PRN Reason: Pain Scale 1 - 3 or fever Stop: 12/03/22 18:42 Amitriptyline HCl (Amitriptyline 50 Mg Tablet) 50 mg PO HS PAULINO Stop: 12/03/22 21:59 Last Admin: 12/04/21 21:30 Dose: 50 mg Aspirin (Aspirin 81 Mg Tablet.) 81 mg PO DAILY PAULINO Stop: 12/04/22 08:59 Last Admin: 12/05/21 08:52 Dose: Not Given Atorvastatin Calcium (Atorvastatin 40 Mg Tablet) 40 mg PO QHS PALUINO Stop: 12/03/22 21:59 Last Admin: 12/04/21 21:30 Dose: 40 mg Clopidogrel Bisulfate (Clopidogrel Bisulfate 75 Mg Tablet) 75 mg PO DAILY PAULINO Stop: 12/04/22 08:59 Last Admin: 12/05/21 08:52 Dose: Not Given Collagenase (Collagenase 250 Unit/Gm Oint 30 Gm Tube) 1 applic TOPICAL DAILY [facility] Stop: 12/14/21 14:29 Last Admin: 12/05/21 08:51 Dose: 1 applic Cyclobenzaprine HCl (Cyclobenzaprine 10 Mg Tablet) 10 mg PO QHS PRN PRN Reason: Muscle Spasm Stop: 12/03/22 21:05 Last Admin: 12/04/21 21:30 Dose: 10 mg Docusate Sodium (Docusate 100 Mg Capsule) 100 mg PO BID PRN PRN Reason: Constipation Stop: 12/03/22 18:42 Duloxetine HCl (Duloxetine 30 Mg Capsule.Dr) 30 mg PO DAILY [facility] Stop: 12/04/22 08:59 Last Admin: 12/05/21 08:51 Dose: 30 mg Enoxaparin Sodium (Enoxaparin 40 Mg/0.4 Ml Syringe) 40 mg SUBCUT DAILY@10 [facility] Stop: 12/04/22 09:59 Last Admin: 12/04/21 10:37 Dose: Not Given Fluticasone Propionate (Fluticasone Propionate Greenbush 120 Greenbush/16 Gm Bottle) 1 spray INTRANASAL QHS PRN PRN Reason: Nasal Congestion Stop: 12/03/22 21:05 Gabapentin (Gabapentin 800 Mg Tablet) 800 mg PO QID [facility] Stop: 12/03/22 21:59 Last Admin: 12/05/21 08:51 Dose: 800 mg Hydromorphone HCl (Hydromorphone 0.5 Mg/0.5 Ml Syringe) 0.5 mg IV-PUSH Q4H PRN PRN Reason: Pain Last Admin: 12/05/21 12:45 Dose: 0.5 mg Vancomycin HCl (Vancomycin) 1 gm in 250 mls @ 250 mls/hr IV Q12H [facility] Last Admin: 12/05/21 07:53 Dose: 250 mls/hr Cefepime HCl (Maxipime) 2 gm in 50 mls @ 100 mls/hr IV Q12H [facility] Last Admin: 12/05/21 06:21 Dose: 100 mls/hr Levothyroxine Sodium (Levothyroxine 150 Mcg Tablet) 150 mcg PO DAILY@0630 [facility] Stop: 12/04/22 06:29 Last Admin: 12/05/21 07:53 Dose: 150 mcg Melatonin (Melatonin 3 Mg Tablet) 3 mg PO QHS PRN PRN Reason: Insomnia Stop: 12/03/22 18:42 Metoprolol Succinate (Metoprolol Succinate 50 Mg Tab.Er.24h) 50 mg PO DAILY [facility] Stop: 12/04/22 08:59 Last Admin: 12/05/21 08:51 Dose: 50 mg Oxycodone HCl (Oxycodone Ir 5 Mg Tablet) 5 mg PO Q6HR PRN PRN Reason: Pain Scale 4 - 7 Last Admin: 12/03/21 19:38 Dose: 5 mg Oxycodone HCl (Oxycodone Ir 15 Mg Tablet) 15 mg PO TID PRN PRN Reason: pain Last Admin: 12/04/21 16:25 Dose: 15 mg Prochlorperazine Edisylate (Prochlorperazine Edisylate 10 Mg/2 Ml Vial) 5 mg IMQ4H PRN PRN Reason: Nausea And Vomiting Stop: 12/03/22 18:42 Sennosides (Sennosides 8.6 Mg Tablet) 2 tab PO BID PRN PRN Reason: constipation Stop: 12/03/22 21:05 Sodium Chloride (Sodium Chloride 0.9 % 10 Ml Syringe) 0 ml IV-PUSH PRN PRN PRN Reason: Flush Stop: 12/03/22 15:31 Last Admin: 12/04/21 08:49 Dose: 10 ml Vancomycin HCl (Vancomycin - Pharmacy Dosing 1 Each Miscell) 1 each IV PRN PRN; Protocol PRN Reason: ZZ.Pharmacy Consult A&P - Infectious Disease Assessment/Plan (1) Wound infection: Code(s): T14.8XXA - Other injury of unspecified body region, initial encounter; L08.9 - Local infection of the skin and subcutaneous tissue, unspecified Status: Acute Plan Patient is not having surgery due to negative ultrasound. Cultures have not yielded any positive result. Previous cultures a few weeks back with diphtheroids. Favor oral linezolid on discharge. Prescription sent to [facility] pharmacy. Patient is to hold her Cymbalta while on the Linezolid. Wound care as outlined by vascular surgery. Wound VAC apparently planned to continue at home. Documented By: Rolando Sykes MD 12/05/21 1246 Signed By: <Electronically signed by MD Rolando Sykes> 12/05/21 9675 [facility] Work Phone: [phone] 129-445209-22-2022 Consult note Author Zaid Mon [facility] December 04, 2021 4:23pm Note Date/Time December 04, 2021 8:34am [facility] [address] [place] [address] Vascular Surgery Consult Note Signed Patient: Ema Neff MR#: [id number] : 1965 Acct:[id number] Age/Sex: 56 / F Adm Date: 2 Loc: Room: [address] [place] [address] Type: ADM IN Attending Dr: Rodney Marti MD Copies to: NAOMI Easton MD Obaydah M Daromar, MD Robert L Hill, MD~ HPI Consult HPI Reason for consult: Left LE cellulitis History of present illness: This patient is well-known to our office. She is a 56-year-old femalewith past medical history of diabetes and diabetic wound status post left anterior tibial to peroneal artery bypass on 10/13/2021. This was complicated by postop infection which was treated with IV antibiotics and a wound VAC has been placed. She has been having the wound VAC changed 3 times a week with [facility] health. She was seen in the office last week and the wound was looking great. Yesterday, when home health arrived to her house they noted increased purulent drainage, erythema, and warmth around the left lower leg wound. Home health nurse contacted our office yesterday telling us he did not obtain a culture and recommended that she go to the emergency departmentfor further evaluation. She was admitted through the emergency department for treatment of left lower extremity cellulitis. She does report fever, chills, nausea for 2 days. In the emergency department she was afebrile. cc:: CC: Rodney Marti MD Data of Consult Consult date: 12/04/2021 Requesting Physician: Rodney Marti MD Review of Systems Review of Systems All other systems reviewed & are negative unless noted below or in HPI PMFSH Vaccinated for COVID-19?: Yes Medical History Anxiety Arthritis Back pain Bronchitis Cellulitis DDD (degenerative disc disease) Depression Diabetes Diabetes mellitus, type 2 DJD (degenerative joint disease) Eczema GERD (gastroesophageal reflux disease) since being dx with thyroid problems Gout History of amputation of toe History of CVA in adulthood rt sided weakness Hyperlipidemia Hypertension Hyperthyroidism Menopause Neuropathy Osteoporosis Sleep apnea no machine Smoker quit 03/2021 Tachycardia Ulcerative colitis Surgical History History of carpal tunnel surgery of right wrist History of cholecystectomy History of endometrial ablation History of surgery on wrist carpal tunnel and ulnar nerve rt arm; carpal tunnel left History of thyroidectomy History of tonsillectomy History of tubal ligation Hx of angioplasty bilateral legs x2, 2 stents on R Hx of cataract surgery bilateral S/P angioplasty with stent rt leg Family History Father Bladder cancer Prostate cancer Diabetes Mother H/O blood clots Social History Smoking Status: Former smoker Tobacco Type: cigarettes Substance Use Type: Alcohol Substance Abuse Comment: etoh occasionally Social History Comments: Patient is . She resides with her spouse. She uses no DME. She is on disability due to chronic low back pain which she feels is from a work injury. Allergies & Active Medications Medications and Allergies Allergies hydrocodone [From Vicodin] Allergy (Verified 12/03/21 15:33) Hallucinating Steroid Injection Allergy (Uncoded 12/03/21 15:33) Swelling Exam Physical Exam Vital Signs: Temp Pulse Resp BP Pulse Ox O2 Del Method 97.9 F 84 18 120/83 96 Room Air 12/04/21 07:53 12/04/21 07:53 12/04/21 07:53 12/04/21 07:53 12/04/21 07:53 12/04/21 07:53 Narrative: 56-year-old female, no acute distress. She is alert and oriented x3. Heart shows regular rate and rhythm, no murmur. Lung sounds are clear throughout bilaterally. Bilateral lower extremities with trace edema. She has wounds to bilateral feet, I did not remove these dressings. These are being followed by podiatry outpatient. The left anterior lateral lower leg has open wound with skin sloughing and some purulent drainage noted. There is a significant amount of erythema and warmth surrounding the open wound. There is a fullness beneath the wound bed, she is unable to tolerateattempts at manually expelling any drainage. Bilateral feet are warm to the touch. She is able to move her feet and toes without issue. Nonpalpable pedal pulses. Distal toes with brisk cap refill. Results Labs CBC & Chem 7: 12/04/21 04:55 12/04/21 04:55 Labs: Laboratory Results - last 24 hr 12/03/21 12/03/21 12/03/21 16:30 16:30 17:32 Corrected WBC 11.0 Uncorrected WBC Count 11.0 RBC 4.77 Hgb 14.1 Hct 43.9 MCV 92.1 MCH 29.5 MCHC 32.0 RDW 16.2 H Plt Count 389 MPV 7.3 Neut % (Auto) 62.6 Lymph % (Auto) 26.9 [place] % (Auto) 5.9 Eos % (Auto) 3.6 Baso % (Auto) 1.0 Neut # (Auto) 6.9 Lymph # (Auto) 3.0 [place] # (Auto) 0.7 Eos # (Auto) 0.4 Baso # (Auto) 0.1 Nucleated RBC % (auto) 0.1 ESR PHA Creatinine Clear 72.96 Sodium 138 Potassium 4.5 Chloride 98 Carbon Dioxide 32.7 H Anion Gap 11.8 BUN 13 Creatinine 1.07 H Est GFR ( Amer) > 60 Est GFR (Non-Af Amer) 53 Glucose 74 Lactic Acid Calcium 9.6 Phosphorus Magnesium Total Bilirubin 0.3 AST 17 ALT 12 Alkaline Phosphatase 84 C-Reactive Prot, Quant Total Protein 7.1 Albumin 3.4 Globulin 3.7 Albumin/Globulin Ratio 0.9 COVID-19 PCR Interp COVID-19 Clin Com SARS Antigen (LFIA) Negative 12/03/21 12/03/21 12/03/21 17:35 17:35 17:35 Corrected WBC 11.6 Uncorrected WBC Count 11.6 H RBC 4.64 Hgb 13.7 Hct 42.4 MCV 91.4 MCH 29.5 MCHC 32.2 RDW 15.9 H Plt Count 375 MPV 7.2 Neut % (Auto) 62.2 Lymph % (Auto) 26.7 [place] % (Auto) 6.4 Eos % (Auto) 3.3 Baso % (Auto) 1.4 Neut # (Auto) 7.3 Lymph # (Auto) 3.1 [place] # (Auto) 0.7 Eos # (Auto) 0.4 Baso # (Auto) 0.2 Nucleated RBC % (auto) 0.0 ESR 54 H PHA Creatinine Clear 79.66 Sodium 136 Potassium 4.5 Chloride 98 Carbon Dioxide 28.5 Anion Gap 14.0 BUN 14 Creatinine 0.98 Est GFR ( Amer) > 60 Est GFR (Non-Af Amer) 59 Glucose 68 L Lactic Acid 0.9 Calcium 9.3 Phosphorus Magnesium Total Bilirubin AST ALT Alkaline Phosphatase C-Reactive Prot, Quant 1.0 Total Protein Albumin Globulin Albumin/Globulin Ratio COVID-19 PCR Interp COVID-19 Clin Com SARS Antigen (LFIA) 12/03/21 12/04/21 12/04/21 18:45 04:55 04:55 Corrected WBC 12.5 H Uncorrected WBC Count 12.5 H RBC 4.54 Hgb 13.3 Hct 42.2 MCV 93.0 MCH 29.2 MCHC 31.4 L RDW 16.4 H Plt Count 384 MPV 7.1 Neut % (Auto) 64.9 Lymph % (Auto) 23.6 [place] % (Auto) 6.7 Eos % (Auto) 3.7 Baso % (Auto) 1.1 Neut # (Auto) 8.1 H Lymph # (Auto) 2.9 [place] # (Auto) 0.8 Eos # (Auto) 0.5 H Baso # (Auto) 0.1 Nucleated RBC % (auto) 0.0 ESR PHA Creatinine Clear 73.72 Sodium 138 Potassium 4.1 Chloride 101 Carbon Dioxide 27.9 Anion Gap 13.2 BUN 12 Creatinine 1.09 H Est GFR ( Amer) > 60 Est GFR (Non-Af Amer) 52 Glucose 96 Lactic Acid Calcium 8.7 Phosphorus 4.7 H Magnesium 1.8 Total Bilirubin 0.5 AST 18 ALT 12 Alkaline Phosphatase 78 C-Reactive Prot, Quant 0.7 Total Protein 6.9 Albumin 3.4 Globulin 3.5 Albumin/Globulin Ratio 1.0 COVID-19 PCR Interp N/A COVID-19 Clin Com Negative SARS Antigen (LFIA) Microbiology Microbiology: 12/03/21 17:32 Nasal SARS Antigen (LFIA) - Final A&P - Vascular (1) Cellulitis: Plan: This patient has cellulitis of the left lower leg. There is some purulent drainage noted with a fullness beneath the wound bed. [facility] notified our office yesterday and we were told that culture was obtained prior to her reporting to the emergency department. I do not see that this was received at our lab, I will follow-up with home health to try and locate culture to follow these results. She has been afebrile since her admission. She is unable to tolerate any attempts at manually expelling any drainage from her wound at bedside this morning. This will most likely need I&D procedure to clean out thewound and reapply the wound VAC. She has been started on IV antibiotics upon ERadmission. This is Dr. Mon dictating. I did see the wound and the patient at the bedside. I did not appreciate any purulent drainage however there may be a fluctuant area along the upper aspect of the wound medially. She is tender. Feels a little boggy. I suggest we obtain a ultrasound to see if there is a fluid pocket in this location. If it is the case then she will need debridement. Code(s): L03.90 - Cellulitis, unspecified Status: Acute (2) Wound infection: Code(s): T14.8XXA - Other injury of unspecified body region, initial encounter; L08.9 - Local infection of the skin and subcutaneous tissue, unspecified Status: Acute (3) Diabetes mellitus: Qualifiers: Diabetes mellitus type: type 2 Code(s): E11.9 - Type 2 diabetes mellitus without complications Status: Chronic (4) PVD (peripheral vascular disease): Code(s): I73.9 - Peripheral vascular disease, unspecified Status: Acute Documented By: Alejandra Middleton APRN 12/04/21 0 831 Signed By: <Electronically signed by NAOMI Middleton> 12/04/21 0834 <Electronically signed by Zaid Mon MD> 12/04/[address] [facility] Work Phone: 1(206) 769-576009-22-2022 Progress note Author Rodney Marti [facility] December 04, 2021 1:59pm Note Date/Time December 04, 2021 1:55pm [facility] [address] [place] [address] Hospitalist Progress Note Signed Patient: Ema Neff MR#: [id number] : 1965 Acct:[id number] Age/Sex: 56 / F Adm Date: 2 Loc: Room: [address] [place] [address] Type: ADM IN Attending Dr: Rodney Marti MD Copies to: ~ Date of Service: 12/04/2021 Subjective Subjective Narrative: Patient was seen and examined at bedside. Ambulating and out of bed to chair. Pain is well controlled. Remained afebrile and hemodynamically stable. Patient was seen by vascular and ID teams. no other active complaints. Exam Physical Exam Vital Signs: Temp Pulse Resp BP Pulse Ox O2 Del Method 98.1 F 83 20 120/85 95 Room Air 12/04/21 11:46 12/04/21 11:46 12/04/21 11:46 12/04/21 11:46 12/04/21 11:46 12/04/21 11:46 Narrative: Const General: cooperative, seems more comfortable today, in no acute distress HEENT Head: normal to inspection Nose: external nose normal Mouth: oral mucosae normal and lip normal Eyes Conjunctivae: conjunctivae normal Neck Neck: normal visual inspection Chest inspection: normal inspection of the chest Resp Effort & Inspection: normal respiratory effort, not labored, no respiratory distress Auscultation: clear to auscultation b/l, no crackles, no wheezes Cardio Rate: normal rate Rhythm: regular rhythm Heart Sounds: S1 normal, S2 normal and no murmurs GI Inspection: non-distended Palpation: soft, not firm and nontender Neuro General: alert, awake and oriented x3. No obvious focal deficit Extrem LLE: open wound noted on lateral aspect of bella with swelling and erythema surrounding it, very tender to touch. No fluctuance or purulence noted. has left 2nd toe and Right 2nd toe amputated has ulcer also on left foot Warm extremities Psych Appearance: grossly normal Affect: normal affect Objective Lab Results CBC & Chem 7: 12/04/21 04:55 12/04/21 04:55 Microbiology Results Microbiology 12/03/21 17:32 Nasal SARS Antigen (LFIA) - Final Meds Allergies and Active Meds Allergies hydrocodone [From Vicodin] Allergy (Verified 12/03/21 15:33) Hallucinating Steroid Injection Allergy (Uncoded 12/03/21 15:33) Swelling Active Meds: Active Medications Generic Name Dose Route Start Last Admin Trade Name Freq PRN Reason Stop Dose Admin Acetaminophen 650 mg 12/03/21 18:43 Acetaminophen 325 Mg Tablet PO 12/03/22 18:42 Q6HR PRN Pain Scale 1 - 3 or fever Amitriptyline HCl 50 mg 12/03/21 22:00 12/03/21 22:40 Amitriptyline 50 Mg Tablet PO 12/03/22 21:59 50 mg HS [facility] Administration Aspirin 81 mg 12/04/21 09:00 12/04/21 08:49 Aspirin 81 Mg Tablet. PO 12/04/22 08:59 81 mg DAILY [facility] Administration Atorvastatin Calcium 40 mg 12/03/21 22:00 12/03/21 22:41 Atorvastatin 40 Mg Tablet PO 12/03/22 21:59 Not Given QHS [facility] Clopidogrel Bisulfate 75 mg 12/04/21 09:00 12/04/21 08:49 Clopidogrel Bisulfate 75 Mg Tablet PO 12/04/22 08:59 75 mg DAILY [facility] Administration Cyclobenzaprine HCl 10 mg 12/03/21 21:06 12/03/21 22:40 Cyclobenzaprine 10 Mg Tablet PO 12/03/22 21:05 10 mg QHS PRN Administration Muscle Spasm Docusate Sodium 100 mg 12/03/21 18:43 Docusate 100 Mg Capsule PO 12/03/22 18:42 BID PRN Constipation Duloxetine HCl 30 mg 12/04/21 09:00 12/04/21 08:49 Duloxetine 30 Mg Capsule. PO 12/04/22 08:59 30 mg DAILY [facility] Administration Enoxaparin Sodium 40 mg 12/04/21 10:00 12/04/21 10:37 Enoxaparin 40 Mg/0.4 Ml Syringe SUBCUT 12/04/22 09:59 Not Given DAILY@10 [facility] Fluticasone Propionate 1 spray 12/03/21 21:06 Fluticasone Propionate Greenbush 120 Greenbush/16 Gm Bottle INTRANASAL 12/03/22 21:05 QHS PRN Nasal Congestion Gabapentin 800 mg 12/03/21 22:00 12/04/21 13:40 Gabapentin 800 Mg Tablet PO 12/03/22 21:59 800 mg QID [facility] Administration Hydromorphone HCl 0.5 mg 12/04/21 05:28 12/04/21 13:40 Hydromorphone 0.5 Mg/0.5 Ml Syringe IV-PUSH 0.5 mg Q4H PRN Administration Pain Vancomycin HCl 1 gm in 250 mls @ 250 mls/hr 12/04/21 06:30 12/04/21 05:35 Vancomycin IV 250 mls/hr Q12H [facility] Administration Cefepime HCl 2 gm in 50 mls @ 100 mls/hr 12/04/21 05:00 12/04/21 04:51 Maxipime IV 100 mls/hr Q12H [facility] Administration Levothyroxine Sodium 150 mcg 12/04/21 06:30 12/04/21 05:35 Levothyroxine 150 Mcg Tablet PO 12/04/22 06:29 150 mcg DAILY@0630 [facility] Administration Melatonin 3 mg 12/03/21 18:43 Melatonin 3 Mg Tablet PO 12/03/22 18:42 QHS PRN Insomnia Metoprolol Succinate 50 mg 12/04/21 09:00 12/04/21 08:49 Metoprolol Succinate 50 Mg Tab.Er.24h PO 12/04/22 08:59 50 mg DAILY [facility] Administration Oxycodone HCl 5 mg 12/03/21 18:43 12/03/21 19:38 Oxycodone Ir 5 Mg Tablet PO 5 mg Q6HR PRN Administration Pain Scale 4 - 7 Oxycodone HCl 15 mg 12/03/21 21:06 12/04/21 10:50 Oxycodone Ir 15 Mg Tablet PO 15 mg TID PRN Administration pain Prochlorperazine Edisylate 5 mg 12/03/21 18:43 Prochlorperazine Edisylate 10 Mg/2 Ml Vial IM 12/03/22 18:42 Q4H PRN Nausea And Vomiting Sennosides 2 tab 12/03/21 21:06 Sennosides 8.6 Mg Tablet PO 12/03/22 21:05 BID PRN constipation Sodium Chloride 0 ml 12/03/21 15:32 12/04/21 08:49 Sodium Chloride 0.9 % 10 Ml Syringe IV-PUSH 12/03/22 15:31 10 ml PRN PRN Administration Flush Vancomycin HCl 1 each 12/03/21 21:02 Vancomycin - Pharmacy Dosing 1 Each Miscell IV PRN PRN ZZ.Pharmacy Consult Protocol A&P - Hospitalist Assessment/Plan (1) Left leg cellulitis: (2) Wound infection: (3) Diabetes mellitus: (4) PVD (peripheral vascular disease): Plan -Remained afebrile. WBC 12.5. slightly elevated. Her pain is controlled with current regimen. -Blood cultures pending -Continue Vanco and Cefepime -Infectious disease input appreciated -Vascular team input appreciate. Possible I&D will be planned. Resumed home medications as needed CODE STATUS full code DVT prophylaxis with Lovenox Discussed with patient at bedside. All questions answered Documented By: Rodney Marti MD 12/04/21 13 51 Signed By: <Electronically signed by Rodney Marti MD> 12/04/21 9937 [facility] Work Phone: 1(163) 802-858109-22-2022 Consult note Author Rolando Sykes [facility] December 04, 2021 9:01am Note Date/Time December 04, 2021 9:01am [facility] [address] [place] [address] Infect. Disease Consult Note Signed Patient: Ema Neff MR#: [id number] : 1965 Acct:[id number] Age/Sex: 56 / F Adm Date: 2 Loc: 4 Room: [address] [place] [address] Type: ADM IN Attending Dr: Rodney Marti MD Copies to: MD Rodney Taylor MD Robert L Hill, MD~ HPI Data of Consult Consult date: 12/04/21 Requesting Physician: Rodney Marti MD Primary Care Provider: Jarvis Thrasher MD Consult Narrative History of present illness: Ms. Neff is a 56 year old female with history of PVD who underwent in October left tibial and peroneal artery bypass surgery. She was doing well and had the wound changed 3 times a week but states last week it became more red irritated and painful. It appears she had been hospitalized November 09 and underwent debridement with VAC placement. She was sent home on doxycycline and Augmentin but now the wound became worse again with swelling and edema. VAC could not be used due to pain. She was therefore admitted placed again on IV antibiotics. Surgery apparently she tells me is planned for . She also has a wound on the dorsal aspect of her foot and a left second toe ulceration where her toe has been amputated. She denies systemic symptoms of infection. CC: Rodney Marti MD Review of Systems Review of Systems All other systems reviewed & are negative unless noted below or in HPI [facility] Attestation Statement: The following information was validated with the patient. Vaccinated for COVID-19?: Yes Medical History Anxiety Arthritis Back pain Bronchitis Cellulitis DDD (degenerative disc disease) Depression Diabetes Diabetes mellitus, type 2 DJD (degenerative joint disease) Eczema GERD (gastroesophageal reflux disease) since being dx with thyroid problems Gout History of amputation of toe History of CVA in adulthood rt sided weakness Hyperlipidemia Hypertension Hyperthyroidism Menopause Neuropathy Osteoporosis Sleep apnea no machine Smoker quit 03/2021 Tachycardia Ulcerative colitis Surgical History History of carpal tunnel surgery of right wrist History of cholecystectomy History of endometrial ablation History of surgery on wrist carpal tunnel and ulnar nerve rt arm; carpal tunnel left History of thyroidectomy History of tonsillectomy History of tubal ligation Hx of angioplasty bilateral legs x2, 2 stents on R Hx of cataract surgery bilateral S/P angioplasty with stent rt leg Family History Father Bladder cancer Prostate cancer Diabetes Mother H/O blood clots Social History Smoking Status: Former smoker Tobacco Type: cigarettes Substance Use Type: Alcohol Substance Abuse Comment: etoh occasionally Social History Comments: Patient is . She resides with her spouse. She uses no DME. She is on disability due to chronic low back pain which she feels is from a work injury. Allergies and Medications Allergies and Active Meds Allergies hydrocodone [From Vicodin] Allergy (Verified 12/03/21 15:33) Hallucinating Steroid Injection Allergy (Uncoded 12/03/21 15:33) Swelling Active Medications Acetaminophen (Acetaminophen 325 Mg Tablet) 650 mg PO Q6HR PRN PRN Reason: Pain Scale 1 - 3 or fever Stop: 12/03/22 18:42 Amitriptyline HCl (Amitriptyline 50 Mg Tablet) 50 mg PO HS [facility] Stop: 12/03/22 21:59 Last Admin: 12/03/21 22:40 Dose: 50 mg Aspirin (Aspirin 81 Mg Tablet.) 81 mg PO DAILY [facility] Stop: 12/04/22 08:59 Last Admin: 12/04/21 08:49 Dose: 81 mg Atorvastatin Calcium (Atorvastatin 40 Mg Tablet) 40 mg PO QHS [facility] Stop: 12/03/22 21:59 Last Admin: 12/03/21 22:41 Dose: Not Given Clopidogrel Bisulfate (Clopidogrel Bisulfate 75 Mg Tablet) 75 mg PO DAILY [facility] Stop: 12/04/22 08:59 Last Admin: 12/04/21 08:49 Dose: 75 mg Cyclobenzaprine HCl (Cyclobenzaprine 10 Mg Tablet) 10 mg PO QHS PRN PRN Reason: Muscle Spasm Stop: 12/03/22 21:05 Last Admin: 12/03/21 22:40 Dose: 10 mg Docusate Sodium (Docusate 100 Mg Capsule) 100 mg PO BID PRN PRN Reason: Constipation Stop: 12/03/22 18:42 Duloxetine HCl (Duloxetine 30 Mg Capsule.) 30 mg PO DAILY [facility] Stop: 12/04/22 08:59 Last Admin: 12/04/21 08:49 Dose: 30 mg Enoxaparin Sodium (Enoxaparin 40 Mg/0.4 Ml Syringe) 40 mg SUBCUT DAILY@10 [facility] Stop: 12/04/22 09:59 Last Admin: 12/04/21 08:49 Dose: 40 mg Fluticasone Propionate (Fluticasone Propionate Greenb[place] 120 [place]/16 Gm Bottle) 1 spray INTRANASAL QHS PRN PRN Reason: Nasal Congestion Stop: 12/03/22 21:05 Gabapentin (Gabapentin 800 Mg Tablet) 800 mg PO QID [facility] Stop: 12/03/22 21:59 Last Admin: 12/04/21 08:49 Dose: 800 mg Hydromorphone HCl (Hydromorphone 0.5 Mg/0.5 Ml Syringe) 0.5 mg IV-PUSH Q4H PRN PRN Reason: Pain Last Admin: 12/04/21 08:49 Dose: 0.5 mg Vancomycin HCl (Vancomycin) 1 gm in 250 mls @ 250 mls/hr IV Q12H [facility] Last Admin: 12/04/21 05:35 Dose: 250 mls/hr Cefepime HCl (Maxipime) 2 gm in 50 mls @ 100 mls/hr IV Q12H [facility] Last Admin: 12/04/21 04:51 Dose: 100 mls/hr Levothyroxine Sodium (Levothyroxine 150 Mcg Tablet) 150 mcg PO DAILY@0630 [facility] Stop: 12/04/22 06:29 Last Admin: 12/04/21 05:35 Dose: 150 mcg Melatonin (Melatonin 3 Mg Tablet) 3 mg PO QHS PRN PRN Reason: Insomnia Stop: 12/03/22 18:42 Metoprolol Succinate (Metoprolol Succinate 50 Mg Tab.Er.24h) 50 mg PO DAILY [facility] Stop: 12/04/22 08:59 Last Admin: 12/04/21 08:49 Dose: 50 mg Oxycodone HCl (Oxycodone Ir 5 Mg Tablet) 5 mg PO Q6HR PRN PRN Reason: Pain Scale 4 - 7 Last Admin: 12/03/21 19:38 Dose: 5 mg Oxycodone HCl (Oxycodone Ir 15 Mg Tablet) 15 mg PO TID PRN PRN Reason: pain Last Admin: 12/03/21 22:40 Dose: 15 mg Prochlorperazine Edisylate (Prochlorperazine Edisylate 10 Mg/2 Ml Vial) 5 mg IMQ4H PRN PRN Reason: Nausea And Vomiting Stop: 12/03/22 18:42 Sennosides (Sennosides 8.6 Mg Tablet) 2 tab PO BID PRN PRN Reason: constipation Stop: 12/03/22 21:05 Sodium Chloride (Sodium Chloride 0.9 % 10 Ml Syringe) 0 ml IV-PUSH PRN PRN PRN Reason: Flush Stop: 12/03/22 15:31 Last Admin: 12/04/21 08:49 Dose: 10 ml Vancomycin HCl (Vancomycin - Pharmacy Dosing 1 Each Miscell) 1 each IV PRN PRN; Protocol PRN Reason: ZZ.Pharmacy Consult Exam Physical Exam Vital Signs: Temp Pulse Resp BP Pulse Ox O2 Del Method 97.9 F 84 18 120/83 96 Room Air 12/04/21 07:53 12/04/21 07:53 12/04/21 07:53 12/04/21 07:53 12/04/21 07:53 12/04/21 07:53 Const General: cooperative and comfortable Orientation: alert, awake and oriented x3 HEENT Head: normal to inspection Ears: hearing grossly normal bilaterally Nose: external nose normal Face and sinus: normal facial exam Eyes General: appearance normal, both eyes and all related structures Neck Neck: normal visual inspection Chest Chest palpation & inspection: normal inspection of the chest Resp Effort & Inspection: normal respiratory effort Cardio Palpation: normal PMI Rate: regular rate Rhythm: regular rhythm GI Inspection: normal to inspection Palpation: soft and nontender Auscultation: normal bowel sounds Skin General: other (Patient left lower extremity with open wound and surrounding cellulitis ) Other: Left foot wound on the second toe ulceration with some purulent drainage as well. Neuro General: patient oriented x3 Extrem General: normal to inspection Results Labs CBC & Chem 7: 12/04/21 04:55 12/04/21 04:55 Labs: 12/03/21 16:30: Corrected WBC 11.0, Uncorrected WBC Count 11.0 12/03/21 16:30: BUN 13, Creatinine 1.07 H 12/03/21 17:35: Corrected WBC 11.6, Uncorrected WBC Count 11.6 H 12/03/21 17:35: BUN 14, Creatinine 0.98 12/04/21 04:55: BUN 12, Creatinine 1.09 H 12/04/21 04:55: Corrected WBC 12.5 H, Uncorrected WBC Count 12.5 H Microbiology Results Microbiology Narrative: 12/03/21 17:32 SARS Antigen (LFIA) - Final Nasal 12/03/21 17:35 Blood Culture - Pending Blood - Left Hand 12/03/21 17:32 Blood Culture - Pending Blood - Left Antecubital A&P - Infectious Disease (1) Wound infection: Status: Acute Plan Patient's white count is minimally elevated. She is now on vancomycin and cefepime empirically. Blood cultures are pending. Patient obviously has vascular disease given her recent surgery. Patient remains afebrile. She does not have systemic symptoms of infection. Just having a lot of pain at the left lower leg surgical site wound dehiscence. No cultures done from the wound incisions this hospital stay but November 02 had diphtheroids isolated. Vancomycin appropriate for this organism and cefepime also appropriate for empiric coverage of gram-negative's given surgical site. Documented By: Rolando Sykes MD 12/04/21 0855 Signed By: <Electronically signed by MD Rolando Sykes> 12/04/21900 [facility] Work Phone: 1(500) 701-491309-21-2022 History and physical note Author Rodney Marti [facility] December 03, 2021 9:26pm Note Date/Time December 03, 2021 9:16pm [facility] [address] [place] [address] Hospitalist H&P Signed Patient: Ema Neff MR#: [id number] : 1965 Acct:[id number] Age/Sex: 56 / F Adm Date: 2 Loc: Room: [address] [place] [address] Type: ADM IN Attending Dr: Rodney Marti MD Copies to: MD Jarvis Barrientos MD~ HPI DATE OF EXAMINATION: 12/03/21 CHIEF COMPLAINT: left leg ulcer and swelling and pain HISTORY OF PRESENT ILLNESS: Patient is a 56-year-old female, with known history of PVD, who underwent on October left tibial to peroneal artery bypass surgery from greater saphenous vein.? The postoperative course was complicated by a wound infection which did not respond to oral antibiotics as outpatient.? Patient presented to the emergency department on November 04, with wound dehiscence and purulent material discharge, as well as cellulitic changes. She was hospitalized until November 09, she received Zosyn and vancomycin, seen by vascular surgeon, underwent debridement and wound VAC placement, in addition she had also debridement on the left foot as well, cultures remain negative. Patient was stabilized and transition to doxycycline and Augmentin for 1 week. Now patient is back complaining of worsening left leg swelling, edema, pain. She states shecould not apply wound VAC on her wound due to severe pain for which she decided to come to the ER. Patient reports subjective fever and chills, states that shethinks her wound did not improve with oral antibiotics. Decision was made to admit patient under hospitalist service for further evaluation and management. Review of Systems Review of Systems All other systems reviewed & are negative unless noted below or in HPI Review of systems: Constitutional Constitutional: Reports system reviewed and no additional complaints, except as documented Eyes Eyes: Reports system reviewed and no additional complaints, except as documented ENT Ears, Nose, Mouth, and Throat: Reports system reviewed and no additional complaints, except as documented Cardiovascular Cardiovascular: Reports system reviewed and no additional complaints, except as documented Respiratory Respiratory: Reports system reviewed and no additional complaints, except as documented Gastrointestinal Gastrointestinal: Reports system reviewed and no additional complaints, except as documented Genitourinary Genitourinary: Reports system reviewed and no additional complaints, except as documented Musculoskeletal Musculoskeletal: Reports system reviewed and no additional complaints, except asdocumented Neurologic Neurologic: Reports system reviewed and no additional complaints, except as documented Skin: no rash, lesions PMFSH Vaccinated for COVID-19?: Yes Medical History Anxiety Arthritis Back pain Bronchitis Cellulitis DDD (degenerative disc disease) Depression Diabetes Diabetes mellitus, type 2 DJD (degenerative joint disease) Eczema GERD (gastroesophageal reflux disease) since being dx with thyroid problems Gout History of amputation of toe History of CVA in adulthood rt sided weakness Hyperlipidemia Hypertension Hyperthyroidism Menopause Neuropathy Osteoporosis Sleep apnea no machine Smoker quit 03/2021 Tachycardia Ulcerative colitis Surgical History History of carpal tunnel surgery of right wrist History of cholecystectomy History of endometrial ablation History of surgery on wrist carpal tunnel and ulnar nerve rt arm; carpal tunnel left History of thyroidectomy History of tonsillectomy History of tubal ligation Hx of angioplasty bilateral legs x2, 2 stents on R Hx of cataract surgery bilateral S/P angioplasty with stent rt leg Family History Father Bladder cancer Prostate cancer Diabetes Mother H/O blood clots Social History Smoking Status: Former smoker Tobacco Type: cigarettes Substance Use Type: Alcohol Substance Abuse Comment: etoh occasionally Social History Comments: Patient is . She resides with her spouse. She uses no DME. She is on disability due to chronic low back pain which she feels is from a work injury. Meds Medications and Allergies Allergies hydrocodone [From Vicodin] Allergy (Verified 12/03/21 15:33) Hallucinating Steroid Injection Allergy (Uncoded 12/03/21 15:33) Swelling Home Medications losartan 50 mg tablet 50 mg PO QAM htn 11/02/17 [History Confirmed 12/03/21] fluticasone propionate 50 mcg/actuation nasal spray,suspension (Flonase Allergy Relief) 1 spray intranasal QHS PRN Nasal Congestion 03/06/18 [History Confirmed 12/03/21] amitriptyline 25 mg tablet 50 mg PO HS insomnia 01/21/21 [History Confirmed 12/03/21] gabapentin 800 mg tablet 800 mg PO QID neuropathy 01/21/21 [History Confirmed 12/03/21] meloxicam 15 mg tablet 15 mg PO DAILY arthritis 01/21/21 [History Confirmed 12/03/21] nystatin 100,000 unit/gram topical ointment 1 applic topical TID PRN rash 03/10/21 [History Confirmed 12/03/21] aspirin 81 mg tablet,delayed release 81 mg PO DAILY PVD 05/02/21 [History Confirmed 12/03/21] clopidogrel 75 mg tablet 75 mg PO DAILY PVD 05/02/21 [History Confirmed 12/03/21] cyclobenzaprine 5 mg tablet 10 mg PO QHS PRN Muscle Spasm 05/02/21 [History Confirmed 12/03/21] metoprolol succinate 25 mg tablet,extended release 24 hr 50 mg PO DAILY tachycardia/overactive thyroid 05/02/21 [History Confirmed 12/03/21] levothyroxine 125 mcg tablet 150 mcg PO DAILY 09/27/21 [History Confirmed 12/03/21] sennosides 8.6 mg tablet (Senna Lax) 2 tab PO BID PRN constipation 30 days #120 tabs 10/09/21 [Rx Confirmed 12/03/21] atorvastatin 20 mg tablet (Lipitor) 40 mg PO QHS hyperlipidemia #30 tabs 10/17/21 [Rx Confirmed 12/03/21] semaglutide 1 mg/dose (4 mg/3 mL) subcutaneous pen injector (Ozempic) 1 mg (0.75mL) subcut QWEEK #3 mL 10/17/21 [Rx Confirmed 12/03/21] duloxetine 30 mg capsule,delayed release 30 mg PO DAILY 11/04/21 [History Confirmed 12/03/21] glimepiride 4 mg tablet 4 mg PO DAILY 11/04/21 [History Confirmed 12/03/21] rivaroxaban 10 mg tablet (Xarelto) 10 mg PO DAILY #14 tabs 11/09/21 [Rx Confirmed 12/03/21] oxycodone 15 mg tablet 15 mg PO TID PRN pain 12/03/21 [History Confirmed 12/03/21] Exam Physical Exam Vital Signs: Temp Pulse Resp BP Pulse Ox O2 Del Method 97.7 F 77 18 105/60 97 Room Air 12/03/21 19:56 12/03/21 20:42 12/03/21 20:42 12/03/21 20:42 12/03/21 20:42 12/03/21 20:42 Narrative: Const General: cooperative, seems uncomfortable due to pain, in no acute distress HEENT Head: normal to inspection Nose: external nose normal Mouth: oral mucosae normal and lip normal Eyes Conjunctivae: conjunctivae normal Neck Neck: normal visual inspection Chest inspection: normal inspection of the chest Resp Effort & Inspection: normal respiratory effort, not labored, no respiratory distress Auscultation: clear to auscultation b/l, no crackles, no wheezes Cardio Rate: normal rate Rhythm: regular rhythm Heart Sounds: S1 normal, S2 normal and no murmurs GI Inspection: non-distended Palpation: soft, not firm and nontender Neuro General: alert, awake and oriented x3. No obvious focal deficit Extrem LLE: open wound noted on lateral aspect of bella with swelling and erythema surrounding it, very tender to touch. No fluctuance or purulence noted. has left 2nd toe and Right 2nd toe amputated has ulcer also on left foot Warm extremities distal Pulses palpable Psych Appearance: grossly normal Affect: normal affect Results Lab Results Labs: Laboratory Last Values Corrected WBC 11.6 X10E3/uL (3.8-11.6) 12/03/21 17:35 Uncorrected WBC Count 11.6 x10E3/uL (4.5-11.0) H 12/03/21 17:35 RBC 4.64 x10E6/uL (3.60-5.00) 12/03/21 17:35 Hgb 13.7 g/dL (11.8-15.4) 12/03/21 17:35 Hct 42.4 % (34.0-46.4) 12/03/21 17:35 MCV 91.4 fl (80-100) 12/03/21 17:35 MCH 29.5 pg (24.7-34.3) 12/03/21 17:35 MCHC 32.2 g/dL (32.0-35.0) 12/03/21 17:35 RDW 15.9 % (11.9-15.3) H 12/03/21 17:35 Plt Count 375 x10E3/uL (150-450) 12/03/21 17:35 MPV 7.2 fl (6.3-10.7) 12/03/21 17:35 Neut % (Auto) 62.2 % (.) 12/03/21 17:35 Lymph % (Auto) 26.7 % (.) 12/03/21 17:35 [place] % (Auto) 6.4 % (.) 12/03/21 17:35 Eos % (Auto) 3.3 % (.) 12/03/21 17:35 Baso % (Auto) 1.4 % (.) 12/03/21 17:35 Neut # (Auto) 7.3 x10E3/uL (1.8-7.7) 12/03/21 17:35 Lymph # (Auto) 3.1 x10E3/uL (1.00-4.8) 12/03/21 17:35 [place] # (Auto) 0.7 x10E3/uL (0.0-0.8) 12/03/21 17:35 Eos # (Auto) 0.4 x10E3/uL (0.0-0.45) 12/03/21 17:35 Baso # (Auto) 0.2 x10E3/uL (0.0-0.2) 12/03/21 17:35 Nucleated RBC % (auto) 0.0 % (0-0.5) 12/03/21 17:35 ESR 54 mm/hr (0-29) H 12/03/21 17:35 PHA Creatinine Clear 79.66 12/03/21 17:35 Sodium 136 mmol/L (136-146) 12/03/21 17:35 Potassium 4.5 mmol/L (3.5-5.1) 12/03/21 17:35 Chloride 98 mmol/L (95-114) 12/03/21 17:35 Carbon Dioxide 28.5 mmol/L (22.0-30.0) 12/03/21 17:35 Anion Gap 14.0 mEq/L (6.0-15.0) 12/03/21 17:35 BUN 14 mg/dL (9-23) 12/03/21 17:35 Creatinine 0.98 mg/dL (0.44-1.03) 12/03/21 17:35 Est GFR ( Amer) > 60 mL/Min 12/03/21 17:35 Est GFR (Non-Af Amer) 59 mL/Min 12/03/21 17:35 Glucose 68 mg/dL (70-100) L 12/03/21 17:35 Lactic Acid 0.9 mmol/L (0.5-2.2) 12/03/21 17:35 Calcium 9.3 mg/dL (8.2-10.2) 12/03/21 17:35 Total Bilirubin 0.3 mg/dL (0.3-1.2) 12/03/21 16:30 AST 17 U/L (10-42) 12/03/21 16:30 ALT 12 U/L (10-60) 12/03/21 16:30 Alkaline Phosphatase 84 U/L (32-92) 12/03/21 16:30 C-Reactive Prot, Quant 1.0 mg/dL (0.0-1.0) 12/03/21 17:35 Total Protein 7.1 gm/dL (6.1-7.9) 12/03/21 16:30 Albumin 3.4 gm/dL (3.2-5.5) 12/03/21 16:30 Globulin 3.7 gm/dL 12/03/21 16:30 Albumin/Globulin Ratio 0.9 12/03/21 16:30 COVID-19 PCR Interp N/A 12/03/21 18:45 SARS Antigen (LFIA) Negative (Negative) 12/03/21 17:32 Microbiology Results Micro: Microbiology - Results from entire visit 12/03/21 17:32 Nasal SARS Antigen (LFIA) - Final A&P - Hospitalist Assessment/Plan (1) Cellulitis: (2) Wound infection: (3) Diabetes mellitus: (4) PVD (peripheral vascular disease): Plan - Reports subjective fever and chills at home. Patient had severe pain for which she could not apply her wound VAC on. She thinks her wound did not get better with her oral antibiotics. Failed outpatient oral antibiotics. Patient also reported increased drainage in the wound VAC. -Afebrile on presentation with no leukocytosis, ESR elevated, CRP within normal -Blood cultures was collected in ER. -Patient was given Vanco and cefepime in the ER. We will continue Vanco and cefepime -Pain control as needed -Infectious disease evaluation -Seen by Vascular surgery on previous admission, would appreciate vascular inputfor this recurrent wound infection and if need I&D. Resumed home medications as needed CODE STATUS full code DVT prophylaxis with Lovenox Discussed with patient at bedside. All questions answered Documented By: Rodney Marti MD 12/03/2103 12 Signed By: <Electronically signed by Rodney Marti MD> 12/03/212125 [facility] Work Phone: [phone]) 885-612009-14-2022 Evaluation note* Encounter Date Diagnosis Assessment Notes Treatment Notes Treatment Clinical Notes Nov, PAD (peripheral artery disease) (ICD-10 - I73.9) Patient's bypass is functioning and I am very pleased with her result. I suggest we continue the wound VAC for at least another 4 weeks as it is doing a phenomenal job closing the wound. The depth is much less at this point in time. I will see her back in 4 weeks and at that point we can we can consider discontinuation of the wound VAC. The patient understands agrees the plan all of her questions were addressed. VBOX Other 08-27-2022 Progress note Author Dean Rodriguez [facility] November 08, 2021 2:52pm Note Date/Time November 08, 2021 2: 52pm [facility] [address] [place] [address] Hospitalist Progress Note Signed Patient: Ema Neff MR#: [id number] : 1965 Acct:[id number] Age/Sex: 56 / F Adm Date: 2 Loc: Room: [address] [place] [address] Type: ADM IN Attending Dr: Dean Rodriguez MD Copies to: ~ Date of Service: 11/08/2021 Subjective Subjective Narrative: Pain in the leg and in the foot is severe, not well controlled, requiring administration of [id number] Dilaudid. Wound VAC is in place. Heart is regular Lungs clear Neurological nonfocal Assessment and plan problem 1. Postoperative infection. Patient had undergone on October 13,Left tibial to peroneal artery bypass, from greater saphenous vein. Surgical debridement and wound VAC were placed on the , cultures obtained, so far no growth. Previous superficial cultures with diphtheroids De-escalate antibiotic therapy to vancomycin. Patient does have some diarrhea. Added fentanyl patch 25 mcg in order to decrease hopefully the amount of Dilaudid that she is using. Encouraged her to use oral oxycodone in order to transition her to an acceptable home regimen Continue dual antiplatelets Continue maximal statin therapy Constipation prophylaxis DVT prophylaxis Discharge home when pain controlled without IV drugs. Hopefully tomorrow. Other chronic medical comorbidities include PVD Dyslipidemia Diabetes mellitus type2 Hypothyroidism Hypertension Gout Obesity class III BMI 42 Anxiety depression GERD Sleep apnea Cerebrovascular disease and history of right-sided weakness Exam Physical Exam Vital Signs: Temp Pulse Resp BP Pulse Ox O2 Del Method O2 Flow Rate 97.6 F 73 16 118/88 96 Room Air 6 11/08/21 03:30 11/08/21 11:44 11/08/21 11:44 11/08/21 11:44 11/08/21 11:44 11/08/21 11:44 11/06/21 16:00 Objective Lab Results CBC & Chem 7: 11/08/21 04:36 11/08/21 04:36 Microbiology Results Microbiology 11/06/21 16:10 Leg,Left - Drainage Aerobic Culture - Final Rare normal skin neo 2 Days 11/06/21 16:10 Leg,Left - Drainage Anaerobic Culture - Preliminary No Anaerobes Isolated 2 Days 11/06/21 16:10 Leg,Left - Drainage Gram Stain - Final 11/04/21 04:29 Blood - Right Antecubital Blood Culture - Preliminary No Growth 4 Days 11/04/21 04:34 Blood - Right Hand Blood Culture - Preliminary No Growth 4 Days Meds Allergies and Active Meds Allergies hydrocodone [From Vicodin] Allergy (Verified 11/03/21 21:01) Hallucinating Steroid Injection Allergy (Uncoded 11/03/21 21:01) Swelling Active Meds: Active Medications Generic Name Dose Route Start Last Admin Trade Name Amarilis PRN Reason Stop Dose Admin Acetaminophen 1,000 mg 11/04/21 14:00 11/08/21 13:42 Acetaminophen 500 Mg Tablet PO 11/04/22 13:59 Not Given QID PAULINO Amitriptyline HCl 50 mg 11/04/21 22:00 11/07/21 21:20 Amitriptyline 50 Mg Tablet PO 11/04/22 21:59 50 mg HS PAULINO Administration Aspirin 81 mg 11/04/21 09:00 11/08/21 09:13 Aspirin 81 Mg Tablet. PO 11/04/22 08:59 81 mg DAILY PAULINO Administration Atorvastatin Calcium 40 mg 11/04/21 22:00 11/07/21 21:20 Atorvastatin 40 Mg Tablet PO 11/04/22 21:59 40 mg QHS PAULINO Administration Clopidogrel Bisulfate 75 mg 11/04/21 09:00 11/08/21 09:13 Clopidogrel Bisulfate 75 Mg Tablet PO 11/04/22 08:59 75 mg DAILY PAULINO Administration Collagenase 1 applic 11/04/21 09:45 11/08/21 09:20 Collagenase 250 Unit/Gm Oint 30 Gm Tube TOPICAL 11/14/21 09:44 1 applic DAILY PAULINO Administration Dextrose 0 gm 11/04/21 03:59 Dextrose 50% In Water 25 Gm/50 Ml Syringe IV-PUSH 11/04/22 03:58 PRN PRN Hypoglycemia Duloxetine HCl 30 mg 11/04/21 09:00 11/08/21 09:13 Duloxetine 30 Mg Capsule. PO 11/04/22 08:59 30 mg DAILY PAULINO Administration Fentanyl 25 mcg 11/08/21 14:00 Fentanyl Patch 25 Mcg/Hour Patch.Td72 TRANSDERML Q72HR [facility] Protocol Fluticasone Propionate 1 spray 11/04/21 03:55 Fluticasone Propionate [place] 120 [place]/16 Gm Bottle INTRANASAL 11/04/22 03:54 QHS PRN Nasal Congestion Gabapentin 800 mg 11/04/21 09:00 11/08/21 13:42 Gabapentin 800 Mg Tablet PO 11/04/22 08:59 800 mg QID PAULINO Administration Glucose 0 gm 11/04/21 03:59 Dextrose 40% Gel 15 Gm Tube PO 11/04/22 03:58 PRN PRN Hypoglycemia Hydromorphone HCl 1 mg 11/04/21 12:15 11/08/21 11:47 Hydromorphone 1 Mg/Ml Syringe IV-PUSH 1 mg Q2H PRN Administration pain Vancomycin HCl 0.75 gm in 250 mls @ 250 mls/hr 11/06/21 13:30 11/08/21 01:36 Vancomycin IV 250 mls/hr Q12H PAULINO Administration Insulin Aspart 0 units 11/04/21 08:00 11/08/21 11:47 Insulin Aspart 300 Units/3 Ml Insuln.Pen SUBCUT 11/04/22 07:59 3 units TID.WM.HS PAULINO Administration Protocol Insulin Detemir 10 units 11/04/21 09:00 11/08/21 09:13 Insulin Detemir 300 Units/3 Ml Insuln.Pen SUBCUT 11/04/22 08:59 10 units DAILY PAULINO Administration Levothyroxine Sodium 125 mcg 11/04/21 06:30 11/08/21 07:19 Levothyroxine 125 Mcg Tablet PO 11/04/22 06:29 Not Given DAILY@0630 PAULINO Metoprolol Succinate 50 mg 11/04/21 09:00 11/08/21 09:18 Metoprolol Succinate 50 Mg Tab.Er.24h PO 11/04/22 08:59 50 mg DAILY PAULINO Administration Ondansetron HCl 4 mg 11/04/21 03:51 11/04/21 21:09 Ondansetron 4 Mg/2 Ml Vial IV-PUSH 11/04/22 03:50 4 mg Q8H PRN Administration Nausea And Vomiting Oxycodone HCl 5 mg 11/04/21 12:15 11/06/21 16:45 Oxycodone Ir 5 Mg Tablet PO 5 mg Q4HR PRN Administration pain Oxycodone HCl 10 mg 11/08/21 13:33 Oxycodone Ir 5 Mg Tablet PO Q4HR PRN Pain Scale 6 - 10 Rivaroxaban 10 mg 11/05/21 09:00 11/08/21 09:13 Rivaroxaban 10 Mg Tablet PO 11/05/22 08:59 10 mg DAILY [facility] Administration Senna/Docusate Sodium 2 tab 11/07/21 10:15 11/08/21 09:14 Sennosides/Docusate 8.6-50mg 1 Tab Tablet PO 08/26/23 10:14 Not Given BID PAULINO Sodium Chloride 0 ml 11/03/21 21:00 11/08/21 11:47 Sodium Chloride 0.9 % 10 Ml Syringe IV-PUSH 11/03/22 20:59 10 ml PRN PRN Administration Flush Vancomycin HCl 1 each 11/04/21 03:51 Vancomycin - Pharmacy Dosing 1 Each Miscell IV PRN PRN ZZ.Pharmacy Consult Protocol Documented By: Dean Rodriguez MD 11/08/21 1450 Signed By: <Electronically signed by Dean Rodriguez MD> 11/08/211451 [facility] Work Phone: 1(370) 170-642608-26-2022 Progress note Author Dean Rodriguez [facility] November 07, 2021 10:10am Note Date/Time November 07, 2021 10 :10am [facility] [address] [place] [address] Hospitalist Progress Note Signed Patient: Ema Neff MR#: [id number] : 1965 Acct:[id number] Age/Sex: 56 / F Adm Date: 2 Loc: Room: [address] [place] [address] Type: ADM IN Attending Dr: Dean Rodriguez MD Copies to: ~ Date of Service: 11/07/2021 Subjective Subjective Narrative: Patient is in bed. She is complaining of pain in the left lower extremity. Wound VAC is in place. The extremity is neurovascular intact otherwise. Heart is regular Lungs clear Neurological nonfocal Assessment and plan problem 1. Postoperative infection. Patient had undergone on October 13,Left tibial to peroneal artery bypass, from greater saphenous vein. Surgical debridement and wound VAC were placed yesterday, cultures obtained, so far no growth. Previous superficial cultures with diphtheroids Continue broad-spectrum antibiotic therapy with Zosyn and vancomycin day 5. Continue dual antiplatelets Maximized statin therapy Pain control Constipation prophylaxis DVT prophylaxis Other chronic medical comorbidities include PVD Dyslipidemia Diabetes mellitus type2 Hypothyroidism Hypertension Gout Obesity class III BMI 42 Anxiety depression GERD Sleep apnea Cerebrovascular disease and history of right-sided weakness Exam Physical Exam Vital Signs: Temp Pulse Resp BP Pulse Ox O2 Del Method O2 Flow Rate 97.5 F L 88 18 112/80 91 L Room Air 6 11/07/21 07:55 11/07/21 07:55 11/07/21 07:55 11/07/21 07:55 11/07/21 07:55 11/07/21 08:01 11/06/21 16:00 Objective Lab Results CBC & Chem 7: 11/04/21 04:34 11/07/21 07:05 Microbiology Results Microbiology 11/04/21 04:29 Blood - Right Antecubital Blood Culture - Preliminary No Growth 3 Days 11/04/21 04:34 Blood - Right Hand Blood Culture - Preliminary No Growth 3 Days Meds Allergies and Active Meds Allergies hydrocodone [From Vicodin] Allergy (Verified 11/03/21 21:01) Hallucinating Steroid Injection Allergy (Uncoded 11/03/21 21:01) Swelling Active Meds: Active Medications Generic Name Dose Route Start Last Admin Trade Name Freq PRN Reason Stop Dose Admin Acetaminophen 1,000 mg 11/04/21 14:00 11/07/21 08:02 Acetaminophen 500 Mg Tablet PO 11/04/22 13:59 Not Given QID PAULINO Amitriptyline HCl 50 mg 11/04/21 22:00 11/06/21 22:20 Amitriptyline 50 Mg Tablet PO 11/04/22 21:59 50 mg HS PAULINO Administration Aspirin 81 mg 11/04/21 09:00 11/07/21 08:02 Aspirin 81 Mg Tablet. PO 11/04/22 08:59 81 mg DAILY PAULINO Administration Atorvastatin Calcium 40 mg 11/04/21 22:00 11/06/21 22:20 Atorvastatin 40 Mg Tablet PO 11/04/22 21:59 40 mg QHS PAULINO Administration Clopidogrel Bisulfate 75 mg 11/04/21 09:00 11/07/21 08:01 Clopidogrel Bisulfate 75 Mg Tablet PO 11/04/22 08:59 75 mg DAILY PAULINO Administration Collagenase 1 applic 11/04/21 09:45 11/07/21 08:03 Collagenase 250 Unit/Gm Oint 30 Gm Tube TOPICAL 11/14/21 09:44 Not Given DAILY PAULINO Sodium Chloride 3,000 ml/ 0 ml 11/07/21 10:05 Vancomycin HCl 2 gm IRRIGATION 11/07/21 10:06 ONCE ONE Dextrose 0 gm 11/04/21 03:59 Dextrose 50% In Water 25 Gm/50 Ml Syringe IV-PUSH 11/04/22 03:58 PRN PRN Hypoglycemia Duloxetine HCl 30 mg 11/04/21 09:00 11/07/21 08:01 Duloxetine 30 Mg Capsule.Dr PO 11/04/22 08:59 30 mg DAILY PAULINO Administration Fluticasone Propionate 1 spray 11/04/21 03:55 Fluticasone Propionate [place] 120 [place]/16 Gm Bottle INTRANASAL 11/04/22 03:54 QHS PRN Nasal Congestion Gabapentin 800 mg 11/04/21 09:00 11/07/21 08:01 Gabapentin 800 Mg Tablet PO 11/04/22 08:59 800 mg QID PAULINO Administration Glucose 0 gm 11/04/21 03:59 Dextrose 40% Gel 15 Gm Tube PO 11/04/22 03:58 PRN PRN Hypoglycemia Hydromorphone HCl 1 mg 11/04/21 12:15 11/07/21 10:05 Hydromorphone 1 Mg/Ml Syringe IV-PUSH 1 mg Q2H PRN Administration pain Piperacillin Sod/Tazobactam Sod 4.5 gm in 100 mls @ 200 mls/hr 11/04/21 08:00 11/07/21 08:02 Zosyn IV 200 mls/hr Q6H PAULINO Administration Vancomycin HCl 0.75 gm in 250 mls @ 250 mls/hr 11/06/21 13:30 11/07/21 01:13 Vancomycin IV 250 mls/hr Q12H PAULINO Administration Lactated Ringer's 1,000 mls @ 20 mls/hr 11/06/21 11:44 11/06/21 13:35 Lactated Ringers IV 11/07/21 11:43 20 mls/hr .Q24H ONE Administration Insulin Aspart 0 units 11/04/21 08:00 11/07/21 08:02 Insulin Aspart 300 Units/3 Ml Insuln.Pen SUBCUT 11/04/22 07:59 3 units TID.WM.HS PAULINO Administration Protocol Insulin Detemir 10 units 11/04/21 09:00 11/07/21 08:03 Insulin Detemir 300 Units/3 Ml Insuln.Pen SUBCUT 11/04/22 08:59 10 units DAILY PAULINO Administration Levothyroxine Sodium 125 mcg 11/04/21 06:30 11/07/21 05:39 Levothyroxine 125 Mcg Tablet PO 11/04/22 06:29 125 mcg DAILY@0630 PAULINO Administration Metoprolol Succinate 50 mg 11/04/21 09:00 11/07/21 08:02 Metoprolol Succinate 50 Mg Tab.Er.24h PO 11/04/22 08:59 50 mg DAILY PAULINO Administration Ondansetron HCl 4 mg 11/04/21 03:51 11/04/21 21:09 Ondansetron 4 Mg/2 Ml Vial IV-PUSH 11/04/22 03:50 4 mg Q8H PRN Administration Nausea And Vomiting Oxycodone HCl 5 mg 11/04/21 12:15 11/06/21 16:45 Oxycodone Ir 5 Mg Tablet PO 5 mg Q4HR PRN Administration pain Oxycodone HCl 10 mg 11/06/21 16:40 11/07/21 08:01 Oxycodone Ir 5 Mg Tablet PO 10 mg Q6HR PRN Administration Pain Scale 6 - 10 Rivaroxaban 10 mg 11/05/21 09:00 11/07/21 08:02 Rivaroxaban 10 Mg Tablet PO 11/05/22 08:59 10 mg DAILY PAULINO Administration Sodium Chloride 0 ml 11/03/21 21:00 11/07/21 10:05 Sodium Chloride 0.9 % 10 Ml Syringe IV-PUSH 11/03/22 20:59 10 ml PRN PRN Administration Flush Vancomycin HCl 1 each 11/04/21 03:51 Vancomycin - Pharmacy Dosing 1 Each Miscell IV PRN PRN ZZ.Pharmacy Consult Protocol Documented By: Dean Rodriguez MD 11/07/21 1007 Signed By: <Electronically signed by Dean Rodriguez MD> 11/07/[address] [facility] [address] [facility] Work Phone: [phone] Progress note Author Dean Rodriguez [facility] November 07, 2021 10:07am Note Date/Time November 07, 2021 10 :07am [facility] [address] [place] [address] Hospitalist Progress Note Signed Patient: Ema Neff MR#: [id number] : 1965 Acct:[id number] Age/Sex: 56 / F Adm Date: 2 Loc: Room: [address] [place] [address] Type: ADM IN Attending Dr: Dean Rodriguez MD Copies to: ~ Date of Service: 11/06/2021 Subjective Subjective Narrative: Patient is resting in bed. Her pain is controlled. No other new issues. She is awaiting surgical I&D. Heart is regular Lungs clear Neurological nonfocal Assessment and plan problem 1. Postoperative infection. Patient had undergone on October 13,Left tibial to peroneal artery bypass, from greater saphenous vein. Cultures so far no growth. Surgical debridement and wound VAC placement planned for today. Continue broad-spectrum antibiotic therapy with Zosyn and vancomycin day 4. Continue dual antiplatelets Maximize statin therapy Pain control Other chronic medical comorbidities include PVD Dyslipidemia Diabetes mellitus type2 Hypothyroidism Hypertension Gout Obesity class III BMI 42 Anxiety depression GERD Sleep apnea Cerebrovascular disease and history of right-sided weakness Exam Physical Exam Vital Signs: Temp Pulse Resp BP Pulse Ox O2 Del Method O2 Flow Rate 97.5 F L 88 18 112/80 91 L Room Air 6 11/07/21 07:55 11/07/21 07:55 11/07/21 07:55 11/07/21 07:55 11/07/21 07:55 11/07/21 08:01 11/06/21 16:00 Objective Lab Results CBC & Chem 7: 11/04/21 04:34 11/07/21 07:05 Microbiology Results Microbiology 11/04/21 04:29 Blood - Right Antecubital Blood Culture - Preliminary No Growth 3 Days 11/04/21 04:34 Blood - Right Hand Blood Culture - Preliminary No Growth 3 Days Meds Allergies and Active Meds Allergies hydrocodone [From Vicodin] Allergy (Verified 11/03/21 21:01) Hallucinating Steroid Injection Allergy (Uncoded 11/03/21 21:01) Swelling Active Meds: Active Medications Generic Name Dose Route Start Last Admin Trade Name Jamesq PRN Reason Stop Dose Admin Acetaminophen 1,000 mg 11/04/21 14:00 11/07/21 08:02 Acetaminophen 500 Mg Tablet PO 11/04/22 13:59 Not Given QID PAULINO Amitriptyline HCl 50 mg 11/04/21 22:00 11/06/21 22:20 Amitriptyline 50 Mg Tablet PO 11/04/22 21:59 50 mg HS PAULINO Administration Aspirin 81 mg 11/04/21 09:00 11/07/21 08:02 Aspirin 81 Mg Tablet. PO 11/04/22 08:59 81 mg DAILY PAULINO Administration Atorvastatin Calcium 40 mg 11/04/21 22:00 11/06/21 22:20 Atorvastatin 40 Mg Tablet PO 11/04/22 21:59 40 mg QHS PAULINO Administration Clopidogrel Bisulfate 75 mg 11/04/21 09:00 11/07/21 08:01 Clopidogrel Bisulfate 75 Mg Tablet PO 11/04/22 08:59 75 mg DAILY PAULINO Administration Collagenase 1 applic 11/04/21 09:45 11/07/21 08:03 Collagenase 250 Unit/Gm Oint 30 Gm Tube TOPICAL 11/14/21 09:44 Not Given DAILY PAULINO Sodium Chloride 3,000 ml/ 0 ml 11/07/21 10:05 Vancomycin HCl 2 gm IRRIGATION 11/07/21 10:06 ONCE ONE Dextrose 0 gm 11/04/21 03:59 Dextrose 50% In Water 25 Gm/50 Ml Syringe IV-PUSH 11/04/22 03:58 PRN PRN Hypoglycemia Duloxetine HCl 30 mg 11/04/21 09:00 11/07/21 08:01 Duloxetine 30 Mg Capsule. PO 11/04/22 08:59 30 mg DAILY PAULINO Administration Fluticasone Propionate 1 spray 11/04/21 03:55 Fluticasone Propionate [place] 120 [place]/16 Gm Bottle INTRANASAL 11/04/22 03:54 QHS PRN Nasal Congestion Gabapentin 800 mg 11/04/21 09:00 11/07/21 08:01 Gabapentin 800 Mg Tablet PO 11/04/22 08:59 800 mg QID PAULINO Administration Glucose 0 gm 11/04/21 03:59 Dextrose 40% Gel 15 Gm Tube PO 11/04/22 03:58 PRN PRN Hypoglycemia Hydromorphone HCl 1 mg 11/04/21 12:15 11/07/21 10:05 Hydromorphone 1 Mg/Ml Syringe IV-PUSH 1 mg Q2H PRN Administration pain Piperacillin Sod/Tazobactam Sod 4.5 gm in 100 mls @ 200 mls/hr 11/04/21 08:00 11/07/21 08:02 Zosyn IV 200 mls/hr Q6H PAULINO Administration Vancomycin HCl 0.75 gm in 250 mls @ 250 mls/hr 11/06/21 13:30 11/07/21 01:13 Vancomycin IV 250 mls/hr Q12H PAULINO Administration Lactated Ringer's 1,000 mls @ 20 mls/hr 11/06/21 11:44 11/06/21 13:35 Lactated Ringers IV 11/07/21 11:43 20 mls/hr .Q24H ONE Administration Insulin Aspart 0 units 11/04/21 08:00 11/07/21 08:02 Insulin Aspart 300 Units/3 Ml Insuln.Pen SUBCUT 11/04/22 07:59 3 units TID.WM.HS PAULINO Administration Protocol Insulin Detemir 10 units 11/04/21 09:00 11/07/21 08:03 Insulin Detemir 300 Units/3 Ml Insuln.Pen SUBCUT 11/04/22 08:59 10 units DAILY PAULINO Administration Levothyroxine Sodium 125 mcg 11/04/21 06:30 11/07/21 05:39 Levothyroxine 125 Mcg Tablet PO 11/04/22 06:29 125 mcg DAILY@0630 PAULINO Administration Metoprolol Succinate 50 mg 11/04/21 09:00 11/07/21 08:02 Metoprolol Succinate 50 Mg Tab.Er.24h PO 11/04/22 08:59 50 mg DAILY PAULINO Administration Ondansetron HCl 4 mg 11/04/21 03:51 11/04/21 21:09 Ondansetron 4 Mg/2 Ml Vial IV-PUSH 11/04/22 03:50 4 mg Q8H PRN Administration Nausea And Vomiting Oxycodone HCl 5 mg 11/04/21 12:15 11/06/21 16:45 Oxycodone Ir 5 Mg Tablet PO 5 mg Q4HR PRN Administration pain Oxycodone HCl 10 mg 11/06/21 16:40 11/07/21 08:01 Oxycodone Ir 5 Mg Tablet PO 10 mg Q6HR PRN Administration Pain Scale 6 - 10 Rivaroxaban 10 mg 11/05/21 09:00 11/07/21 08:02 Rivaroxaban 10 Mg Tablet PO 11/05/22 08:59 10 mg DAILY PAULINO Administration Sodium Chloride 0 ml 11/03/21 21:00 11/07/21 10:05 Sodium Chloride 0.9 % 10 Ml Syringe IV-PUSH 11/03/22 20:59 10 ml PRN PRN Administration Flush Vancomycin HCl 1 each 11/04/21 03:51 Vancomycin - Pharmacy Dosing 1 Each Miscell IV PRN PRN ZZ.Pharmacy Consult Protocol Documented By: Dean Rodriguez MD 11/06/21 1006 Signed By: <Electronically signed by Dean Rodriguez MD> 11/07/21 [address] [facility] Work Phone: [phone] Progress note Author Zaid Mon [facility] November 05, 2021 3:04pm Note Date/Time November 05, 2021 3: 04pm [facility] [address] [place] [address] Vascular Surgery Progress Note Signed Patient: Ema Neff MR#: [id number] : 1965 Acct:[id number] Age/Sex: 56 / F Adm Date: 2 Loc: Room: [address] [place] [address] Type: ADM IN Attending Dr: Dean Rodriguez MD Copies to: ~ Date of Service: 11/05/2021 Subjective Subjective Interval history: Our intention was to washout the wound and place a wound VAC today. Unfortunately we had a couple emergencies to deal with and we are not able to complete this. We will try again tomorrow afternoon. Exam Physical Exam Vital Signs: Temp Pulse Resp BP Pulse Ox O2 Del Method 97.4 F L 62 18 105/78 97 Room Air 11/05/21 12:00 11/05/21 12:00 11/05/21 12:00 11/05/21 12:41 11/05/21 12:00 11/05/21 12:00 Objective Labs CBC & Chem 7: 11/04/21 04:34 11/04/21 04:34 Other Labs: Laboratory Results - last 24 hr 11/04/21 11/04/21 11/05/21 15:55 20:49 06:42 POC Glucose 171 150 138 POC Glucose Comment Glu2: cleaned meter Triglycerides Cholesterol LDL Cholesterol, Calc VLDL Cholesterol HDL Cholesterol Cholesterol/HDL Ratio 11/05/21 11/05/21 07:15 11:47 POC Glucose 102 POC Glucose Comment Glu2: cleaned meter Triglycerides 183 H Cholesterol 152 LDL Cholesterol, Calc 79 VLDL Cholesterol 36 HDL Cholesterol 36 Cholesterol/HDL Ratio 4.2 Microbiology Microbiology: Microbiology - Results from entire visit 11/04/21 04:29 Blood - Right Antecubital Blood Culture - Preliminary No Growth 1 Day 11/04/21 04:34 Blood - Right Hand Blood Culture - Preliminary No Growth 1 Day 11/04/21 01:28 Nasal SARS Antigen (LFIA) - Final A&P - Vascular Assessment/Plan (1) Diabetes mellitus: Qualifiers: Diabetes mellitus type: type 2 Code(s): E11.9 - Type 2 diabetes mellitus without complications Status: Chronic (2) Morbid obesity due to excess calories: Code(s): E66.01 - Morbid (severe) obesity due to excess calories Status: Chronic (3) HTN (hypertension), benign: Code(s): E78.5 - Hyperlipidemia, unspecified Status: Chronic (4) Infection: Code(s): B99.9 - Unspecified infectious disease Status: Acute (5) Wound infection: This patient has incisional wound infection. She remains afebrile while in the hospital. Cultures have been obtained and she has been started on IV Vanco and Zosyn and managed by the hospitalist. This patient will likely require I&D of this wound. We will tentatively plan for this for tomorrow. This is Dr. Mon dictating. I did see this patient on rounds on 11/04/2021. The wound was fully evaluated. The patient has excellent cap refilland excellent Doppler signals in the left foot. I agree there is some dehiscence of the wound. There is also some cellulitis and erythema around the wound. I recommend trip to the operating room for irrigation and washout debridement cultures and placement of a wound VAC. This is explained to the patient in detail she understands and wishes to proceed we will plan for this tomorrow she will be n.p.o. at midnight. I am pleased with the bypass I believeto be intact and she has excellent blood supply to her left foot. Code(s): T14.8XXA - Other injury of unspecified body region, initial encounter; L08.9 - Local infection of the skin and subcutaneous tissue, unspecified Status: Acute Documented By: Zaid Mon MD 11/05/21 1508 Signed By: <Electronically signed by Zaid Mon MD> 11/05/[address] [facility] Work Phone: [phone] 315-582108-24-2022 Progress note Author Dean Rodriguez [facility] November 05, 2021 2:23pm Note Date/Time November 05, 2021 2: 23pm [facility] [address] [place] [address] Hospitalist Progress Note Signed Patient: Ema Neff MR#: [id number] : 1965 Acct:[id number] Age/Sex: 56 / F Adm Date: 2 Loc: 3T Room: [address] [place] [address] Type: ADM IN Attending Dr: Dean Rodriguez MD Copies to: ~ Date of Service: 11/05/2021 Subjective Subjective Narrative: Patient is resting in bed. Her pain is controlled. No other new issues. She is awaiting surgical I&D. Heart is regular Lungs clear Neurological nonfocal Assessment and plan problem 1. Postoperative infection. Patient had undergone on October 13,Left tibial to peroneal artery bypass, from greater saphenous vein. Cultures so far no growth. Surgical debridement and wound VAC placement planned for today. Continue broad-spectrum antibiotic therapy with Zosyn and vancomycin day 3. Continue dual antiplatelets Maximize statin therapy Pain control Other chronic medical comorbidities include PVD Dyslipidemia Diabetes mellitus type2 Hypothyroidism Hypertension Gout Obesity class III BMI 42 Anxiety depression GERD Sleep apnea Cerebrovascular disease and history of right-sided weakness Exam Physical Exam Vital Signs: Temp Pulse Resp BP Pulse Ox O2 Del Method 97.4 F L 62 18 105/78 97 Room Air 11/05/21 12:00 11/05/21 12:00 11/05/21 12:00 11/05/21 12:41 11/05/21 12:00 11/05/21 12:00 Objective Lab Results CBC & Chem 7: 11/04/21 04:34 11/04/21 04:34 Microbiology Results Microbiology 11/04/21 04:29 Blood - Right Antecubital Blood Culture - Preliminary No Growth 1 Day 11/04/21 04:34 Blood - Right Hand Blood Culture - Preliminary No Growth 1 Day Meds Allergies and Active Meds Allergies hydrocodone [From Vicodin] Allergy (Verified 11/03/21 21:01) Hallucinating Steroid Injection Allergy (Uncoded 11/03/21 21:01) Swelling Active Meds: Active Medications Generic Name Dose Route Start Last Admin Trade Name Freq PRN Reason Stop Dose Admin Acetaminophen 1,000 mg 11/04/21 14:00 11/05/21 09:37 Acetaminophen 500 Mg Tablet PO 11/04/22 13:59 Not Given QID PAULINO Amitriptyline HCl 50 mg 11/04/21 22:00 11/04/21 21:08 Amitriptyline 50 Mg Tablet PO 11/04/22 21:59 50 mg HS PAULINO Administration Aspirin 81 mg 11/04/21 09:00 11/05/21 09:37 Aspirin 81 Mg Tablet. PO 11/04/22 08:59 Not Given DAILY PAULINO Atorvastatin Calcium 40 mg 11/04/21 22:00 11/04/21 21:09 Atorvastatin 40 Mg Tablet PO 11/04/22 21:59 40 mg QHS PAULINO Administration Clopidogrel Bisulfate 75 mg 11/04/21 09:00 11/05/21 09:37 Clopidogrel Bisulfate 75 Mg Tablet PO 11/04/22 08:59 Not Given DAILY PAULINO Collagenase 1 applic 11/04/21 09:45 11/05/21 09:39 Collagenase 250 Unit/Gm Oint 30 Gm Tube TOPICAL 11/14/21 09:44 1 applic DAILY PAULINO Administration Dextrose 0 gm 11/04/21 03:59 Dextrose 50% In Water 25 Gm/50 Ml Syringe IV-PUSH 11/04/22 03:58 PRN PRN Hypoglycemia Duloxetine HCl 30 mg 11/04/21 09:00 11/05/21 09:27 Duloxetine 30 Mg Capsule. PO 11/04/22 08:59 30 mg DAILY PAULINO Administration Fluticasone Propionate 1 spray 11/04/21 03:55 Fluticasone Propionate [place] 120 [place]/16 Gm Bottle INTRANASAL 11/04/22 03:54 QHS PRN Nasal Congestion Gabapentin 800 mg 11/04/21 09:00 11/05/21 09:27 Gabapentin 800 Mg Tablet PO 11/04/22 08:59 800 mg QID PAULINO Administration Glucose 0 gm 11/04/21 03:59 Dextrose 40% Gel 15 Gm Tube PO 11/04/22 03:58 PRN PRN Hypoglycemia Hydromorphone HCl 1 mg 11/04/21 12:15 11/05/21 12:52 Hydromorphone 1 Mg/Ml Syringe IV-PUSH 1 mg Q2H PRN Administration pain Piperacillin Sod/Tazobactam Sod 4.5 gm in 100 mls @ 200 mls/hr 11/04/21 08:00 11/05/21 06:59 Zosyn IV 200 mls/hr Q6H PAULINO Administration Vancomycin HCl 1.25 gm/ 275 mls @ 183.333 mls/hr 11/04/21 13:30 11/05/21 13:21 Dextrose IV 11/04/22 13:29 183.3 mls/hr Q12H PAULINO Administration Insulin Aspart 0 units 11/04/21 08:00 11/05/21 12:44 Insulin Aspart 300 Units/3 Ml Insuln.Pen SUBCUT 11/04/22 07:59 Not Given TID.WM.HS [facility] Protocol Insulin Detemir 10 units 11/04/21 09:00 11/05/21 09:37 Insulin Detemir 300 Units/3 Ml Insuln.Pen SUBCUT 11/04/22 08:59 Not Given DAILY [facility] Levothyroxine Sodium 125 mcg 11/04/21 06:30 11/05/21 06:57 Levothyroxine 125 Mcg Tablet PO 11/04/22 06:29 125 mcg DAILY@0630 PAULINO Administration Metoprolol Succinate 50 mg 11/04/21 09:00 11/05/21 09:38 Metoprolol Succinate 50 Mg Tab.Er.24h PO 11/04/22 08:59 Not Given DAILY [facility] Ondansetron HCl 4 mg 11/04/21 03:51 11/04/21 21:09 Ondansetron 4 Mg/2 Ml Vial IV-PUSH 11/04/22 03:50 4 mg Q8H PRN Administration Nausea And Vomiting Oxycodone HCl 5 mg 11/04/21 12:15 11/04/21 20:05 Oxycodone Ir 5 Mg Tablet PO 5 mg Q4HR PRN Administration pain Rivaroxaban 10 mg 11/05/21 09:00 11/05/21 09:38 Rivaroxaban 10 Mg Tablet PO 11/05/22 08:59 Not Given DAILY [facility] Sodium Chloride 0 ml 11/03/21 21:00 11/05/21 06:57 Sodium Chloride 0.9 % 10 Ml Syringe IV-PUSH 11/03/22 20:59 10 ml PRN PRN Administration Flush Vancomycin HCl 1 each 11/04/21 03:51 Vancomycin - Pharmacy Dosing 1 Each Miscell IV PRN PRN ZZ.Pharmacy Consult Protocol Documented By: Dean Rodriguez MD 11/05/21 1425 Signed By: <Electronically signed by Dean Rodriguez MD> 11/05/21 1423 [facility] Work Phone: [phone]) 318-660808-23-2022 Consult note Author Zaid Mon [facility] November 04, 2021 4:54pm Note Date/Time November 04, 2021 8: 49am [facility] [address] [place] [address] Vascular Surgery Consult Note Signed Patient: Ema Neff MR#: [id number] : 1965 Acct:[id number] Age/Sex: 56 / F Adm Date: 2 Loc: Room: [address] [place] [address] Type: ADM IN Attending Dr: Dean Rodriguez MD Copies to: MD Alejandra Neal, MD Jarvis Rubio MD~ HPI Consult HPI Reason for consult: Post op wound infection History of present illness: Ms. Neff is a Ema is a well-known patient to our office. She underwent successful left leg anterior tibial to peroneal artery bypass on 10/13/2021. She was seen in our office on 10/29/2021 and the sami from bypass incisions were removed. At that point in time she did have a little bit of edema with some serosanguineous drainage but no signs of infection Or wound dehiscence. She presented through the emergency department over the weekend and once again yesterday with increased pain, drainage, and redness to the surgical wounds and reporting wound opening up . She denies any fevers or chills. She denies any drainage or odor. No chest pain, no shortness of breath, no additional complaints. Wound cultures were obtained in the emergency department over the weekend and remain pending. Blood cultures have also been obtained since her admission. Her pain is well controlled. Vascular surgery has been consulted for further evaluation. cc:: CC: Dean Rodriguez MD Data of Consult Consult date: 11/04/2021 Requesting Physician: Dean Rodriguez MD Review of Systems Review of Systems All other systems reviewed & are negative unless noted below or in HPI PMFSH Vaccinated for COVID-19?: Yes Medical History Anxiety Arthritis Back pain Bronchitis Cellulitis DDD (degenerative disc disease) Depression Diabetes Diabetes mellitus, type 2 DJD (degenerative joint disease) Eczema GERD (gastroesophageal reflux disease) since being dx with thyroid problems Gout History of amputation of toe History of CVA in adulthood rt sided weakness Hyperlipidemia Hypertension Hyperthyroidism Menopause Neuropathy Osteoporosis Sleep apnea no machine Smoker quit 03/2021 Tachycardia Ulcerative colitis Surgical History History of carpal tunnel surgery of right wrist History of cholecystectomy History of endometrial ablation History of surgery on wrist carpal tunnel and ulnar nerve rt arm; carpal tunnel left History of thyroidectomy History of tonsillectomy History of tubal ligation Hx of angioplasty bilateral legs x2, 2 stents on R Hx of cataract surgery bilateral S/P angioplasty with stent rt leg Family History Father Bladder cancer Prostate cancer Diabetes Mother H/O blood clots Social History Smoking Status: Former smoker Tobacco Type: cigarettes Substance Use Type: None Social History Comments: Patient is . She resides with her spouse. She uses no DME. She is on disability due to chronic low back pain which she feels is from a work injury. Allergies & Active Medications Medications and Allergies Allergies hydrocodone [From Vicodin] Allergy (Verified 11/03/21 21:01) Hallucinating Steroid Injection Allergy (Uncoded 11/03/21 21:01) Swelling Exam Physical Exam Vital Signs: Temp Pulse Resp BP Pulse Ox O2 Del Method 97.3 F L 70 18 124/86 97 Room Air 11/04/21 02:35 11/04/21 02:35 11/04/21 02:35 11/04/21 02:35 11/04/21 02:35 11/04/21 02:35 Narrative: 56-year-old female, no acute distress. She is alert and oriented x3. She is resting comfortably in her bed this morning awaiting her breakfast. No shortness of breath with conversation today. Focused assessment of the left lower extremity shows surgical wound to the medial thigh region which superficial wound dehiscence just into the subcutaneous fat. Small amount of serosanguineous drainage noted to this area. Minimal erythema at the wound edges. The distal incision in the medial calf region also shows some wound dehiscence with some purulent drainage from the distal portion of the wound. There is a small palpable pocket of pus in this region and I am able to expel a small amount of this drainage with palpation today. This is very painful for her. There is some additional erythema in this area. She is able to move her foot and toes without issue. She has a strong posterior tibial signal with hand-held Doppler. Results Labs CBC & Chem 7: 11/04/21 04:34 11/04/21 04:34 Labs: Laboratory Results - last 24 hr 11/04/21 11/04/21 11/04/21 00:55 00:55 01:28 Corrected WBC 12.1 H Uncorrected WBC Count 12.1 H RBC 4.13 Hgb 12.0 Hct 38.6 MCV 93.5 MCH 29.1 MCHC 31.1 L RDW 17.7 H Plt Count 365 MPV 7.2 Neut % (Auto) 59.8 Lymph % (Auto) 28.7 [place] % (Auto) 6.5 Eos % (Auto) 3.7 Baso % (Auto) 1.3 Neut # (Auto) 7.3 Lymph # (Auto) 3.5 [place] # (Auto) 0.8 Eos # (Auto) 0.4 Baso # (Auto) 0.2 Nucleated RBC % (auto) 0.1 PHA Creatinine Clear 88.97 Sodium 137 Potassium 4.0 Chloride 99 Carbon Dioxide 29.3 BUN 9 Creatinine 0.90 Est GFR ( Amer) > 60 Est GFR (Non-Af Amer) > 60 Glucose 112 H POC Glucose Calcium 8.8 SARS Antigen (LFIA) Negative 11/04/21 11/04/21 11/04/21 04:34 04:34 06:29 Corrected WBC 12.3 H Uncorrected WBC Count 12.3 H RBC 3.83 Hgb 11.3 L Hct 36.1 MCV 94.3 MCH 29.4 MCHC 31.2 L RDW 17.7 H Plt Count 337 MPV 7.2 Neut % (Auto) 59.9 Lymph % (Auto) 29.5 [place] % (Auto) 5.6 Eos % (Auto) 3.9 Baso % (Auto) 1.1 Neut # (Auto) 7.4 Lymph # (Auto) 3.6 [place] # (Auto) 0.7 Eos # (Auto) 0.5 H Baso # (Auto) 0.1 Nucleated RBC % (auto) 0.1 PHA Creatinine Clear 91.27 Sodium 136 Potassium 3.8 Chloride 101 Carbon Dioxide 28.3 BUN 8 L Creatinine 0.88 Est GFR ( Amer) > 60 Est GFR (Non-Af Amer) > 60 Glucose 135 H POC Glucose 109 Calcium 8.0 L SARS Antigen (LFIA) Microbiology Microbiology: 11/04/21 01:28 Nasal SARS Antigen (LFIA) - Final A&P - Vascular (1) Diabetes mellitus: Qualifiers: Diabetes mellitus type: type 2 Code(s): E11.9 - Type 2 diabetes mellitus without complications Status: Chronic (2) Morbid obesity due to excess calories: Code(s): E66.01 - Morbid (severe) obesity due to excess calories Status: Chronic (3) HTN (hypertension), benign: Code(s): E78.5 - Hyperlipidemia, unspecified Status: Chronic (4) Infection: Code(s): B99.9 - Unspecified infectious disease Status: Acute (5) Wound infection: Plan: This patient has incisional wound infection. She remains afebrile while in the hospital. Cultures have been obtained and she has been started on IV Vanco and Zosyn and managed by the hospitalist. This patient will likely require I&D of this wound. We will tentatively plan for this for tomorrow. This is Dr. Mon dictating. I did see this patient on rounds on 11/04/2021. The wound was fully evaluated. The patient has excellent cap refilland excellent Doppler signals in the left foot. I agree there is some dehiscence of the wound. There is also some cellulitis and erythema around the wound. I recommend trip to the operating room for irrigation and washout debridement cultures and placement of a wound VAC. This is explained to the patient in detail she understands and wishes to proceed we will plan for this tomorrow she will be n.p.o. at midnight. I am pleased with the bypass I believeto be intact and she has excellent blood supply to her left foot. Code(s): T14.8XXA - Other injury of unspecified body region, initial encounter; L08.9 - Local infection of the skin and subcutaneous tissue, unspecified Status: Acute Documented By: Alejandra Middleton APRN 11/04/21 0 [id number] Signed By: <Electronically signed by NAOMI Middleton> 11/04/21 0849 <Electronically signed by Zaid Mon MD> 11/04/21 5044 [facility] Work Phone: [phone] Progress note Author Dean Rodriguez [facility] November 04, 2021 2:51pm Note Date/Time November 04, 2021 2: 51pm [facility] [address] [place] [address] Hospitalist Progress Note Signed Patient: Ema Neff MR#: [id number] : 1965 Acct:[id number] Age/Sex: 56 / F Adm Date: 2 Loc: Room: [address] [place] [address] Type: ADM IN Attending Dr: Dean Rodriguez MD Copies to: ~ Date of Service: 11/04/2021 Subjective Subjective Narrative: Patient is resting in bed. She has some pain at the surgical sites. On examination, the surgical incisions are dehisced, with drainage of small amountsof purulent material. No bleeding. Heart is regular Lungs clear Neurological nonfocal Assessment and plan problem 1. Postoperative infection. Patient had undergone on October 13,Left tibial to peroneal artery bypass, from greater saphenous vein. Cultures obtained and will be followed. Full surgical consult is pending. Continue broad-spectrum antibiotic therapy with Zosyn and vancomycin day 2. Continue dual antiplatelets Will maximize statin therapy after lipid panel tomorrow Pain control Other chronic medical comorbidities include PVD Dyslipidemia Diabetes mellitus type2 Hypothyroidism Hypertension Gout Obesity class III BMI 42 Anxiety depression GERD Sleep apnea Cerebrovascular disease and history of right-sided weakness Exam Physical Exam Vital Signs: Temp Pulse Resp BP Pulse Ox O2 Del Method 97.5 F L 58 L 18 100/69 95 Room Air 11/04/21 08:00 11/04/21 12:00 11/04/21 12:00 11/04/21 12:00 11/04/21 12:00 11/04/21 12:00 Objective Lab Results CBC & Chem 7: 11/04/21 04:34 11/04/21 04:34 Microbiology Results Microbiology 11/04/21 01:28 Nasal SARS Antigen (LFIA) - Final Meds Allergies and Active Meds Allergies hydrocodone [From Vicodin] Allergy (Verified 11/03/21 21:01) Hallucinating Steroid Injection Allergy (Uncoded 11/03/21 21:01) Swelling Active Meds: Active Medications Generic Name Dose Route Start Last Admin Trade Name Freq PRN Reason Stop Dose Admin Acetaminophen 1,000 mg 11/04/21 14:00 11/04/21 14:25 Acetaminophen 500 Mg Tablet PO 11/04/22 13:59 Not Given QID PAULINO Amitriptyline HCl 50 mg 11/04/21 22:00 Amitriptyline 50 Mg Tablet PO 11/04/22 21:59 HS PAULINO Aspirin 81 mg 11/04/21 09:00 11/04/21 09:26 Aspirin 81 Mg Tablet. PO 11/04/22 08:59 81 mg DAILY PAULINO Administration Atorvastatin Calcium 40 mg 11/04/21 22:00 Atorvastatin 40 Mg Tablet PO 11/04/22 21:59 QHS PAULINO Clopidogrel Bisulfate 75 mg 11/04/21 09:00 11/04/21 09:26 Clopidogrel Bisulfate 75 Mg Tablet PO 11/04/22 08:59 75 mg DAILY PAULINO Administration Collagenase 1 applic 11/04/21 09:45 11/04/21 14:21 Collagenase 250 Unit/Gm Oint 30 Gm Tube TOPICAL 11/14/21 09:44 1 applic DAILY PAULINO Administration Dextrose 0 gm 11/04/21 03:59 Dextrose 50% In Water 25 Gm/50 Ml Syringe IV-PUSH 11/04/22 03:58 PRN PRN Hypoglycemia Duloxetine HCl 30 mg 11/04/21 09:00 11/04/21 09:26 Duloxetine 30 Mg Capsule. PO 11/04/22 08:59 30 mg DAILY PAULINO Administration Enoxaparin Sodium 40 mg 11/04/21 10:00 11/04/21 10:44 Enoxaparin 40 Mg/0.4 Ml Syringe SUBCUT 11/04/22 09:59 40 mg DAILY@10 PAULINO Administration Fluticasone Propionate 1 spray 11/04/21 03:55 Fluticasone Propionate Greenbush 120 Green[place]ush/16 Gm Bottle INTRANASAL 11/04/22 03:54 QHS PRN Nasal Congestion Gabapentin 800 mg 11/04/21 09:00 11/04/21 14:22 Gabapentin 800 Mg Tablet PO 11/04/22 08:59 800 mg QID PAULINO Administration Glucose 0 gm 11/04/21 03:59 Dextrose 40% Gel 15 Gm Tube PO 11/04/22 03:58 PRN PRN Hypoglycemia Hydromorphone HCl 1 mg 11/04/21 12:15 11/04/21 12:41 Hydromorphone 1 Mg/Ml Syringe IV-PUSH 1 mg Q2H PRN Administration pain Sodium Chloride 1,000 mls @ 100 mls/hr 11/04/21 04:00 11/04/21 04:34 0.9% Sodium Chloride 1,000 Ml IV 11/04/22 03:59 100 mls/hr .Q10H PAULINO Administration Potassium Chloride 20 meq/ 260 mls @ 130 mls/hr 11/04/21 03:51 Sodium Chloride IV 11/04/22 03:50 DAILY PRN Hypokalemia Potassium Chloride 40 meq/ 520 mls @ 130 mls/hr 11/04/21 03:51 Sodium Chloride IV 11/04/22 03:50 DAILY PRN Hypokalemia Piperacillin Sod/Tazobactam Sod 4.5 gm in 100 mls @ 200 mls/hr 11/04/21 08:00 11/04/21 14:26 Zosyn IV 200 mls/hr Q6H PAULINO Administration Vancomycin HCl 1.25 gm/ 275 mls @ 183.333 mls/hr 11/04/21 13:30 11/04/21 12:46 Dextrose IV 11/04/22 13:29 183.33 mls/hr Q12H PAULINO Administration Insulin Aspart 0 units 11/04/21 08:00 11/04/21 12:44 Insulin Aspart 300 Units/3 Ml Insuln.Pen SUBCUT 11/04/22 07:59 Not Given TID.WM.HS [facility] Protocol Insulin Detemir 10 units 11/04/21 09:00 11/04/21 11:48 Insulin Detemir 300 Units/3 Ml Insuln.Pen SUBCUT 11/04/22 08:59 10 units DAILY PAULINO Administration Levothyroxine Sodium 125 mcg 11/04/21 06:30 11/04/21 06:38 Levothyroxine 125 Mcg Tablet PO 11/04/22 06:29 125 mcg DAILY@0630 PAULINO Administration Metoprolol Succinate 50 mg 11/04/21 09:00 11/04/21 09:26 Metoprolol Succinate 50 Mg Tab.Er.24h PO 11/04/22 08:59 50 mg DAILY PAULINO Administration Ondansetron HCl 4 mg 11/04/21 03:51 Ondansetron 4 Mg/2 Ml Vial IV-PUSH 11/04/22 03:50 Q8H PRN Nausea And Vomiting Oxycodone HCl 5 mg 11/04/21 12:15 Oxycodone Ir 5 Mg Tablet PO Q4HR PRN pain Sodium Chloride 0 ml 11/03/21 21:00 11/04/21 01:36 Sodium Chloride 0.9 % 10 Ml Syringe IV-PUSH 11/03/22 20:59 10 ml PRN PRN Administration Flush Vancomycin HCl 1 each 11/04/21 03:51 Vancomycin - Pharmacy Dosing 1 Each Miscell IV PRN PRN ZZ.Pharmacy Consult Protocol Documented By: Dean Rodriguez MD 11/04/21 1448 Signed By: <Electronically signed by Dean Rodriguez MD> 11/04/21 1451 [facility] Work Phone: [phone] 681-596408-23-2022 History and physical note Author Raj Craven [facility] November 04, 2021 4:08am Note Date/Time November 04, 2021 3: 59am [facility] [address] [place] [address] Hospitalist H&P Signed Patient: Ema Neff MR#: [id number] : 1965 Acct:[id number] Age/Sex: 56 / F Adm Date: 2 Loc: Room: [address] [place] [address] Type: ADM IN Attending Dr: Raj Oscar MD Copies to: MD Jarvis Jenkins MD~ HPI DATE OF EXAMINATION: 11/04/21 CHIEF COMPLAINT: left leg post surgical infection HISTORY OF PRESENT ILLNESS: Patient is a 56-year-old female with history of diabetes/peripheral arterial disease and third toe amputations due to osteomyelitis and nonhealing diabetic wound status post left lower extremity bypass 2 weeks ago with 2 wounds 1 on theinner thigh and 1 on the lateral side of the bella, the patient stated that afterher sami are taken off which was about 10 days ago, she started to have some wound dehiscence with purulent discharge for which patient was placed on Keflex however symptoms continued to get worse and the patient came to the hospital yesterday and was discharged home to follow-up with her surgeon however she cameback today due to worsening symptoms and due to pain . she denied any fever/chills, here in hospital patient was found to have mild leukocytosis, she was afebrile Review of Systems Review of Systems All other systems reviewed & are negative unless noted below or in HPI PMFSH Vaccinated for COVID-19?: Yes Medical History (Updated 11/04/21 @ 04:06 by Raj Oscar MD) Anxiety Arthritis Back pain Bronchitis Cellulitis DDD (degenerative disc disease) Depression Diabetes Diabetes mellitus, type 2 DJD (degenerative joint disease) Eczema GERD (gastroesophageal reflux disease) since being dx with thyroid problems Gout History of amputation of toe History of CVA in adulthood rt sided weakness Hyperlipidemia Hypertension Hyperthyroidism Menopause Neuropathy Osteoporosis Sleep apnea no machine Smoker quit 03/2021 Tachycardia Ulcerative colitis Surgical History History of carpal tunnel surgery of right wrist History of cholecystectomy History of endometrial ablation History of surgery on wrist carpal tunnel and ulnar nerve rt arm; carpal tunnel left History of thyroidectomy History of tonsillectomy History of tubal ligation Hx of angioplasty bilateral legs x2, 2 stents on R Hx of cataract surgery bilateral S/P angioplasty with stent rt leg Family History Father Bladder cancer Prostate cancer Diabetes Mother H/O blood clots Social History Smoking Status: Former smoker Tobacco Type: cigarettes Substance Use Type: None Social History Comments: Patient is . She resides with her spouse. She uses no DME. She is on disability due to chronic low back pain which she feels is from a work injury. Meds Medications and Allergies Allergies hydrocodone [From Vicodin] Allergy (Verified 11/03/21 21:01) Hallucinating Steroid Injection Allergy (Uncoded 11/03/21 21:01) Swelling Home Medications losartan 50 mg tablet 50 mg PO QAM htn 11/02/17 [History Confirmed 11/04/21] fluticasone propionate 50 mcg/actuation nasal spray,suspension (Flonase Allergy Relief) 1 spray intranasal QHS PRN Nasal Congestion 03/06/18 [History Confirmed 11/04/21] amitriptyline 25 mg tablet 50 mg PO HS insomnia 01/21/21 [History Confirmed 11/04/21] gabapentin 800 mg tablet 800 mg PO QID neuropathy 01/21/21 [History Confirmed 11/04/21] meloxicam 15 mg tablet 15 mg PO DAILY arthritis 01/21/21 [History Confirmed 11/04/21] nystatin 100,000 unit/gram topical ointment 1 applic topical TID PRN rash 03/10/21 [History Confirmed 11/04/21] aspirin 81 mg tablet,delayed release 81 mg PO DAILY PVD 05/02/21 [History Confirmed 11/04/21] clopidogrel 75 mg tablet 75 mg PO DAILY PVD 05/02/21 [History Confirmed 11/04/21] cyclobenzaprine 5 mg tablet 10 mg PO QHS PRN Muscle Spasm 05/02/21 [History Confirmed 11/04/21] metoprolol succinate 25 mg tablet,extended release 24 hr 50 mg PO DAILY tachycardia/overactive thyroid 05/02/21 [History Confirmed 11/04/21] levothyroxine 125 mcg tablet 125 mcg PO DAILY 09/27/21 [History Confirmed 11/04/21] sennosides 8.6 mg tablet (Senna Lax) 2 tab PO BID PRN constipation 30 days #120 tabs 10/09/21 [Rx Confirmed 11/04/21] atorvastatin 20 mg tablet (Lipitor) 40 mg PO QHS hyperlipidemia #30 tabs 10/17/21 [Rx Confirmed 11/04/21] oxycodone 5 mg tablet 5 - 10 mg PO Q4HR PRN pain 5 days #15 tabs 10/17/21 [Rx Confirmed 11/04/21] semaglutide 1 mg/dose (4 mg/3 mL) subcutaneous pen injector (Ozempic) 1 mg (0.75mL) subcut QWEEK #3 mL 10/17/21 [Rx Confirmed 11/04/21] duloxetine 30 mg capsule,delayed release 30 mg PO DAILY 11/04/21 [History Confirmed 11/04/21] glimepiride 4 mg tablet 4 mg PO DAILY 11/04/21 [History Confirmed 11/04/21] Exam Physical Exam Vital Signs: Temp Pulse Resp BP Pulse Ox O2 Del Method 97.3 F L 70 18 124/86 97 Room Air 11/04/21 02:35 11/04/21 02:35 11/04/21 02:35 11/04/21 02:35 11/04/21 02:35 11/04/21 02:35 Narrative: General: patient is alert and oriented HEENT: head atraumatic, normocephalic, moist mucous membranes, normal nose and ears, no throat lesions, normal conjunctiva Neck: supple no masses, no lymphadenopathy CVS: regular rate and rhythm, no murmurs or gallops Respiratory: clear to auscultation bilaterally, no wheezing or crackles, symmetric expansion GI: soft, nondistended, nontender, positive bowel sounds with no organomegaly Extremity: Infected looking wounds mid left lower extremity the first 1 is in the inner thigh and the second 1 is in the lateral side of the bella with purulent discharge and redness around the wounds Neuro: alert and oriented x3, normal speech, normal motor function Results Lab Results Labs: Laboratory Last Values Corrected WBC 12.1 X10E3/uL (3.8-11.6) H 11/04/21 00:55 Uncorrected WBC Count 12.1 x10E3/uL (4.5-11.0) H 11/04/21 00:55 RBC 4.13 x10E6/uL (3.60-5.00) 11/04/21 00:55 Hgb 12.0 g/dL (11.8-15.4) 11/04/21 00:55 Hct 38.6 % (34.0-46.4) 11/04/21 00:55 MCV 93.5 fl (80-100) 11/04/21 00:55 MCH 29.1 pg (24.7-34.3) 11/04/21 00:55 MCHC 31.1 g/dL (32.0-35.0) L 11/04/21 00:55 RDW 17.7 % (11.9-15.3) H 11/04/21 00:55 Plt Count 365 x10E3/uL (150-450) 11/04/21 00:55 MPV 7.2 fl (6.3-10.7) 11/04/21 00:55 Neut % (Auto) 59.8 % (.) 11/04/21 00:55 Lymph % (Auto) 28.7 % (.) 11/04/21 00:55 [place] % (Auto) 6.5 % (.) 11/04/21 00:55 Eos % (Auto) 3.7 % (.) 11/04/21 00:55 Baso % (Auto) 1.3 % (.) 11/04/21 00:55 Neut # (Auto) 7.3 x10E3/uL (1.8-7.7) 11/04/21 00:55 Lymph # (Auto) 3.5 x10E3/uL (1.00-4.8) 11/04/21 00:55 [place] # (Auto) 0.8 x10E3/uL (0.0-0.8) 11/04/21 00:55 Eos # (Auto) 0.4 x10E3/uL (0.0-0.45) 11/04/21 00:55 Baso # (Auto) 0.2 x10E3/uL (0.0-0.2) 11/04/21 00:55 Nucleated RBC % (auto) 0.1 % (0-0.5) 11/04/21 00:55 PHA Creatinine Clear 88.97 11/04/21 00:55 Sodium 137 mmol/L (136-146) 11/04/21 00:55 Potassium 4.0 mmol/L (3.5-5.1) 11/04/21 00:55 Chloride 99 mmol/L (95-114) 11/04/21 00:55 Carbon Dioxide 29.3 mmol/L (22.0-30.0) 11/04/21 00:55 BUN 9 mg/dL (9-23) 11/04/21 00:55 Creatinine 0.90 mg/dL (0.44-1.03) 11/04/21 00:55 Est GFR ( Amer) > 60 mL/Min 11/04/21 00:55 Est GFR (Non-Af Amer) > 60 mL/Min 11/04/21 00:55 Glucose 112 mg/dL (70-100) H 11/04/21 00:55 Calcium 8.8 mg/dL (8.2-10.2) 11/04/21 00:55 SARS Antigen (LFIA) Negative (Negative) 11/04/21 01:28 Microbiology Results Micro: Microbiology - Results from entire visit 11/04/21 01:28 Nasal SARS Antigen (LFIA) - Final A&P - Hospitalist Assessment/Plan (1) Diabetes mellitus: (2) Morbid obesity due to excess calories: (3) HTN (hypertension), benign: (4) Infection: Plan Assessment and plan *Sepsis due to left lower extremity postsurgical wound infection ? Admit to the floor on telemetry ? Keep the patient n.p.o. ? Blood cultures are pending ? Start patient on vancomycin and Zosyn ? Continue to monitor vital signs closely ? Get a CT scan of the left lower extremity with contrast to rule out any abscesses given the fluctuation on physical exam ? Vascular surgery consult *Chronic medical issues 1. Hypertension, continue Toprol-XL and hold losartan 2. Type 2 diabetes mellitus, hold glimepiride start patient on detemir 15 unitswith sliding scale insulin 3. History of PAD, continue home dose Plavix/aspirin and statin *DVT prophylaxis with Lovenox Documented By: Raj Oscar MD 2 0358 Signed By: <Electronically signed by Raj Oscar MD> 11/04/21 0408 [facility] Work Phone: 1(211) 720-914308-22-2022 Evaluation note* Encounter Date Diagnosis Assessment Notes Treatment Notes Treatment Clinical Notes Oct, PAD (peripheral artery disease) (ICD-10 - I73.9) Oct, Post-op pain (ICD-10 - G89.18) This patient had recent bypass procedure and she presented through the emergency department over the weekend with increased pain and questionable wound infection with increased drainage and small wound dehiscence. Wound culture was obtained while in the emergency department. This remains pending. She reports today she is having some increased pain associated with this. She is requesting a small amount of pain medication. She is scheduled to see us in the office in 2 days. OARRS was checked. Small amount of pain medication was sent to her pharmacy. Patient was instructed on the use of the medication and sedative side effects associated with this. Patient was cautioned against the addictive nature narcotic medication. [facility] Other 08-17-2022 Evaluation note* Encounter Date Diagnosis Assessment Notes Treatment Notes Treatment Clinical Notes Oct, PAD (peripheral artery disease) (ICD-10 - I73.9) This patient has done well after left lower extremity bypass procedure. She continues to follow with podiatry weekly for wound care of the left foot wounds. Her physical examination today looks great as far as her bypass goes. She has a nice strong DP signal with hand-held Doppler. We did remove all sami from her bypass incisions and applied Steri-Strips to the wounds. Her wound edges remain well approximated. She does have a little bit of serosanguineous drainage but has no signs of infection continues surgical incision sites. We will continue to follow her along closely and see her again in 3 to 4 weeks. She knows to call us in the meantime with any issues. She remains on good medical therapy with use of aspirin, Plavix, and statin medications daily. Oct, Non-healing ulcer of left foot, unspecified ulcer stage (ICD-10 - L97.529) Oct, Encounter for surgical aftercare following surgery of circulatory system (ICD-10 - Z48.812) [facility] Other 08-05-2022 Progress note Author Dean Rodriguez [facility] October 17, 2021 2:45pm Note Date/Time October 17, 2021 2:4 5pm [facility] [address] [place] [address] Hospitalist Progress Note Signed Patient: Ema Neff MR#: [id number] : 1965 Acct:[id number] Age/Sex: 56 / F Adm Date: 2 Loc: 4 Room: [address] [place] [address] Type: ADM IN Attending Dr: Zaid Mon MD Copies to: ~ Date of Service: 10/17/2021 Subjective Subjective Narrative: Patient is resting in bed, no complaints. She is eagerly awaiting discharge from the hospital. Exam Physical Exam Vital Signs: Temp Pulse Resp BP Pulse Ox O2 Del Method O2 Flow Rate 98.1 F 84 16 138/83 97 Room Air 1 10/17/21 11:36 10/17/21 11:36 10/17/21 11:36 10/17/21 11:36 10/17/21 11:36 10/17/21 11:36 10/16/21 08:00 Objective Lab Results CBC & Chem 7: 10/14/21 06:20 10/14/21 06:20 Meds Allergies and Active Meds Allergies hydrocodone [From Vicodin] Allergy (Verified 09/27/21 12:00) Hallucinating Steroid Injection Allergy (Uncoded 09/26/21 20:11) Swelling Active Meds: Active Medications Generic Name Dose Route Start Last Admin Trade Name Amarilis PRN Reason Stop Dose Admin Amitriptyline HCl 50 mg 10/13/21 22:00 10/16/21 21:22 Amitriptyline 50 Mg Tablet PO 10/13/22 21:59 50 mg HS PAULINO Administration Aspirin 81 mg 10/13/21 14:00 10/17/21 08:50 Aspirin 81 Mg Tablet.Dr PO 10/13/22 13:59 81 mg DAILY PAULINO Administration Atorvastatin Calcium 20 mg 10/13/21 22:00 10/16/21 21:23 Atorvastatin 20 Mg Tablet PO 10/13/22 21:59 20 mg QHS PAULINO Administration Clopidogrel Bisulfate 75 mg 10/13/21 15:00 10/17/21 08:50 Clopidogrel Bisulfate 75 Mg Tablet PO 10/13/22 14:59 75 mg DAILY PAULINO Administration Collagenase 1 applic 10/14/21 14:00 10/17/21 10:49 Collagenase 250 Unit/Gm Oint 30 Gm Tube TOPICAL 10/14/22 13:59 1 applic DAILY PAULINO Administration Cyclobenzaprine HCl 10 mg 10/13/21 13:46 10/16/21 21:22 Cyclobenzaprine 10 Mg Tablet PO 10/13/22 13:45 10 mg QHS PRN Administration Muscle Spasm Dextrose 0 gm 10/13/21 19:25 Dextrose 50% In Water 25 Gm/50 Ml Syringe IV-PUSH 10/13/22 19:24 PRN PRN Hypoglycemia Dextrose 0 gm 10/14/21 13:44 Dextrose 50% In Water 25 Gm/50 Ml Syringe IV-PUSH 10/14/22 13:43 PRN PRN Hypoglycemia Docusate Sodium 200 mg 10/13/21 21:00 10/17/21 08:49 Docusate 100 Mg Capsule PO 10/13/22 20:59 200 mg BID PAULINO Administration Enoxaparin Sodium 40 mg 10/14/21 10:00 10/17/21 10:00 Enoxaparin 40 Mg/0.4 Ml Syringe SUBCUT 10/14/22 09:59 Not Given DAILY@1000 PAULINO Fluticasone Propionate 1 spray 10/13/21 13:46 Fluticasone Propionate Greenbush 120 [place]/16 Gm Bottle INTRANASAL 10/13/22 13:45 QHS PRN Nasal Congestion Gabapentin 800 mg 10/13/21 18:00 10/17/21 13:19 Gabapentin 800 Mg Tablet PO 10/13/22 17:59 800 mg QID PAULINO Administration Glucose 0 gm 10/13/21 19:25 Dextrose 40% Gel 15 Gm Tube PO 10/13/22 19:24 PRN PRN Hypoglycemia Glucose 0 gm 10/14/21 13:44 Dextrose 40% Gel 15 Gm Tube PO 10/14/22 13:43 PRN PRN Hypoglycemia Hydromorphone HCl 0.5 mg 10/13/21 13:49 10/17/21 12:32 Hydromorphone 0.5 Mg/0.5 Ml Syringe IV-PUSH 0.5 mg Q4H PRN Administration Pain Scale 4 - 7 Sodium Chloride 1,000 mls @ 100 mls/hr 10/13/21 14:15 10/17/21 12:32 0.9% Sodium Chloride 1,000 Ml IV 10/13/22 14:14 100 mls/hr .Q10H PAULINO Administration Clindamycin Phosphate 600 mg in 50 mls @ 100 mls/hr 10/13/21 22:00 10/17/21 13:19 Cleocin IV 100 mls/hr Q8H PAULINO Administration Insulin Aspart 0 units 10/13/21 22:00 10/17/21 11:38 Insulin Aspart 300 Units/3 Ml Insuln.Pen SUBCUT 10/13/22 21:59 1 units TID.WM.HS PAULINO Administration Protocol Insulin Aspart 5 units 10/15/21 16:30 10/17/21 11:38 Insulin Aspart 300 Units/3 Ml Insuln.Pen SUBCUT 10/15/22 16:29 5 units TID.AC PAULINO Administration Insulin Detemir 20 units 10/16/21 22:00 10/16/21 22:15 Insulin Detemir 300 Units/3 Ml Insuln.Pen SUBCUT 10/16/22 21:59 20 units QHS PAULINO Administration Levothyroxine Sodium 125 mcg 10/14/21 06:30 10/17/21 05:39 Levothyroxine 125 Mcg Tablet PO 10/14/22 06:29 125 mcg DAILY.0630 PAULINO Administration Losartan Potassium 50 mg 10/14/21 09:00 10/17/21 08:50 Losartan 50 Mg Tablet PO 10/14/22 08:59 50 mg QAM PAULINO Administration Meclizine HCl 25 mg 10/13/21 13:46 Meclizine 25 Mg Tablet PO 10/13/22 13:45 QHS PRN Vertigo Metoprolol Succinate 50 mg 10/13/21 15:00 10/17/21 08:50 Metoprolol Succinate 50 Mg Tab.Er.24h PO 10/13/22 14:59 50 mg DAILY PAULINO Administration Naproxen 500 mg 10/13/21 21:00 10/17/21 08:50 Naproxen 500 Mg Tablet PO 10/13/22 20:59 500 mg BID PAULINO Administration Nystatin 1 applic 10/13/21 13:46 Nystatin 100,000 Unit/Gm Oint 15 Gm Tube TOPICAL 10/13/22 13:45 TID PRN Rash Ondansetron HCl 4 mg 10/13/21 13:49 Ondansetron 4 Mg/2 Ml Vial IV-PUSH 10/13/22 13:48 Q6H PRN Nausea And Vomiting Oxycodone HCl 5 - 10 mg 10/13/21 13:46 10/17/21 09:58 Oxycodone Ir 5 Mg Tablet PO 10 mg Q4HR PRN Administration pain Sennosides 2 tab 10/13/21 13:46 Sennosides 8.6 Mg Tablet PO 10/13/22 13:45 BID PRN constipation Sodium Chloride 0 ml 10/13/21 07:59 10/16/21 23:20 Sodium Chloride 0.9 % 10 Ml Syringe IV-PUSH 10/13/22 07:58 10 ml PRN PRN Administration Flush A&P - Hospitalist Assessment/Plan (1) Diabetes mellitus: (2) Chronic ulcer of left foot due to diabetes mellitus: (3) Diabetic foot infection: (4) PAD (peripheral artery disease): (5) HTN (hypertension), benign: Plan Patient is medically stable to be discharged from the hospital as planned. I reviewed with her in detail the discharge medications. Documented By: Dean Rodriguez MD 10/17/21 8425 Signed By: <Electronically signed by Dean Rodriguez MD> 10/17/21 1445 [facility] Work Phone: 1(465) 241-755608-04-2022 Progress note Author Calvin Underwood [facility] October 16, 2021 3:36pm Note Date/Time October 16, 2021 3:3 6pm [facility] [address] [place], [place] [id number] Hospitalist Progress Note Signed Patient: Ema Neff MR#: [id number] : 1965 Acct:[id number] Age/Sex: 56 / F Adm Date: 2 Loc: Room: [address] [place] [address] Type: ADM IN Attending Dr: Zaid Mon MD Copies to: ~ Date of Service: 10/16/2021 Subjective Subjective Narrative: Patient sitting up in bed at time of exam, she has no acute complaints. Waitingfor insurance authorization for bedfast for further rehab. Exam Physical Exam Vital Signs: Temp Pulse Resp BP Pulse Ox O2 Del Method O2 Flow Rate 98.1 F 80 18 122/78 95 Room Air 1 10/16/21 11:43 10/16/21 11:43 10/16/21 11:43 10/16/21 11:43 10/16/21 11:43 10/16/21 11:43 10/16/21 08:00 Narrative: General: Awake alert, no acute distress. HEENT: head atraumatic, normocephalic, moist mucous membranes, normal nose and ears, no throat lesions, normal conjunctiva Neck: supple no masses, no lymphadenopathy CVS: regular rate and rhythm, no murmurs or gallops Respiratory: clear to auscultation bilaterally, no wheezing or crackles, symmetric expansion GI: soft, nondistended, nontender, positive bowel sounds with no organomegaly Extremity: moves all extremities, no restrictions of movements, no calf tenderness, no edema. Left foot is wrapped in surgical dressings, CDI. Neuro: AOx3, CN II-VII intact. Moves all extremities in all planes of motion. Skin: dry, intact no rashes or lesions Objective Lab Results CBC & Chem 7: 10/14/21 06:20 10/14/21 06:20 Meds Allergies and Active Meds Allergies hydrocodone [From Vicodin] Allergy (Verified 09/27/21 12:00) Hallucinating Steroid Injection Allergy (Uncoded 09/26/21 20:11) Swelling Active Meds: Active Medications Generic Name Dose Route Start Last Admin Trade Name Amarilis PRN Reason Stop Dose Admin Amitriptyline HCl 50 mg 10/13/21 22:00 10/15/21 21:12 Amitriptyline 50 Mg Tablet PO 10/13/22 21:59 50 mg HS PAULINO Administration Aspirin 81 mg 10/13/21 14:00 10/16/21 08:52 Aspirin 81 Mg Tablet.Dr PO 10/13/22 13:59 81 mg DAILY PAULINO Administration Atorvastatin Calcium 20 mg 10/13/21 22:00 10/15/21 21:12 Atorvastatin 20 Mg Tablet PO 10/13/22 21:59 20 mg QHS PAULINO Administration Clopidogrel Bisulfate 75 mg 10/13/21 15:00 10/16/21 08:53 Clopidogrel Bisulfate 75 Mg Tablet PO 10/13/22 14:59 75 mg DAILY PAULINO Administration Collagenase 1 applic 10/14/21 14:00 10/16/21 08:54 Collagenase 250 Unit/Gm Oint 30 Gm Tube TOPICAL 10/14/22 13:59 Not Given DAILY PAULINO Cyclobenzaprine HCl 10 mg 10/13/21 13:46 10/15/21 21:19 Cyclobenzaprine 10 Mg Tablet PO 10/13/22 13:45 10 mg QHS PRN Administration Muscle Spasm Dextrose 0 gm 10/13/21 19:25 Dextrose 50% In Water 25 Gm/50 Ml Syringe IV-PUSH 10/13/22 19:24 PRN PRN Hypoglycemia Dextrose 0 gm 10/14/21 13:44 Dextrose 50% In Water 25 Gm/50 Ml Syringe IV-PUSH 10/14/22 13:43 PRN PRN Hypoglycemia Docusate Sodium 200 mg 10/13/21 21:00 10/16/21 08:53 Docusate 100 Mg Capsule PO 10/13/22 20:59 200 mg BID PAULINO Administration Enoxaparin Sodium 40 mg 10/14/21 10:00 10/16/21 09:37 Enoxaparin 40 Mg/0.4 Ml Syringe SUBCUT 10/14/22 09:59 40 mg DAILY@1000 PAULINO Administration Fluticasone Propionate 1 spray 10/13/21 13:46 Fluticasone Propionate Greenbush 120 Greenbush/16 Gm Bottle INTRANASAL 10/13/22 13:45 QHS PRN Nasal Congestion Gabapentin 800 mg 10/13/21 18:00 10/16/21 13:47 Gabapentin 800 Mg Tablet PO 10/13/22 17:59 800 mg QID PAULINO Administration Glucose 0 gm 10/13/21 19:25 Dextrose 40% Gel 15 Gm Tube PO 10/13/22 19:24 PRN PRN Hypoglycemia Glucose 0 gm 10/14/21 13:44 Dextrose 40% Gel 15 Gm Tube PO 10/14/22 13:43 PRN PRN Hypoglycemia Hydromorphone HCl 0.5 mg 10/13/21 13:49 10/16/21 09:37 Hydromorphone 0.5 Mg/0.5 Ml Syringe IV-PUSH 0.5 mg Q4H PRN Administration Pain Scale 4 - 7 Sodium Chloride 1,000 mls @ 100 mls/hr 10/13/21 14:15 10/16/21 05:21 0.9% Sodium Chloride 1,000 Ml IV 10/13/22 14:14 100 mls/hr .Q10H PAULINO Administration Clindamycin Phosphate 600 mg in 50 mls @ 100 mls/hr 10/13/21 22:00 10/16/21 13:47 Cleocin IV 100 mls/hr Q8H PAULINO Administration Insulin Aspart 0 units 10/13/21 22:00 10/16/21 12:06 Insulin Aspart 300 Units/3 Ml Insuln.Pen SUBCUT 10/13/22 21:59 1 units TID.WM.HS PAULINO Administration Protocol Insulin Aspart 5 units 10/15/21 16:30 10/16/21 12:06 Insulin Aspart 300 Units/3 Ml Insuln.Pen SUBCUT 10/15/22 16:29 5 units TID.AC PAULINO Administration Insulin Detemir 20 units 10/16/21 22:00 Insulin Detemir 300 Units/3 Ml Insuln.Pen SUBCUT 10/16/22 21:59 QHS PAULINO Levothyroxine Sodium 125 mcg 10/14/21 06:30 10/16/21 05:52 Levothyroxine 125 Mcg Tablet PO 10/14/22 06:29 125 mcg DAILY.0630 PAULINO Administration Losartan Potassium 50 mg 10/14/21 09:00 10/16/21 08:52 Losartan 50 Mg Tablet PO 10/14/22 08:59 50 mg QAM PAULINO Administration Meclizine HCl 25 mg 10/13/21 13:46 Meclizine 25 Mg Tablet PO 10/13/22 13:45 QHS PRN Vertigo Metoprolol Succinate 50 mg 10/13/21 15:00 10/16/21 08:53 Metoprolol Succinate 50 Mg Tab.Er.24h PO 10/13/22 14:59 50 mg DAILY PAULINO Administration Naproxen 500 mg 10/13/21 21:00 10/16/21 08:53 Naproxen 500 Mg Tablet PO 10/13/22 20:59 500 mg BID PAULINO Administration Nystatin 1 applic 10/13/21 13:46 Nystatin 100,000 Unit/Gm Oint 15 Gm Tube TOPICAL 10/13/22 13:45 TID PRN Rash Ondansetron HCl 4 mg 10/13/21 13:49 Ondansetron 4 Mg/2 Ml Vial IV-PUSH 10/13/22 13:48 Q6H PRN Nausea And Vomiting Oxycodone HCl 5 - 10 mg 10/13/21 13:46 10/16/21 13:47 Oxycodone Ir 5 Mg Tablet PO 10 mg Q4HR PRN Administration pain Sennosides 2 tab 10/13/21 13:46 Sennosides 8.6 Mg Tablet PO 10/13/22 13:45 BID PRN constipation Sodium Chloride 0 ml 10/13/21 07:59 Sodium Chloride 0.9 % 10 Ml Syringe IV-PUSH 10/13/22 07:58 PRN PRN Flush A&P - Hospitalist Assessment/Plan (1) Diabetes mellitus: Plan: ? Patient's home glimepiride 4 mg is on hold currently due to not tolerating a full diet yet. ? A1c on September 28, 2021 was 6.7 ? Detemir increased to 20 units nightly - Lispro 5 units TID - Sliding scale #1 ?Once patient is tolerating normal diet plan to resume her home glimepiride uponD/C (2) Chronic ulcer of left foot due to diabetes mellitus: Plan: Status post vascular intervention, see procedure note for further details (3) Diabetic foot infection: Plan: ? See above, management per vascular surgery ? Patient was recently discharged on October 10 on Keflex. Cultures from that visit returned positive for a staph epidermidis which was resistant to Keflex. A prescription for clindamycin was sent to the patient's pharmacy ? Confirming with vascular, planning to DC Keflex that is ordered and start clindamycin to resume her therapy (4) PAD (peripheral artery disease): (5) HTN (hypertension), benign: Plan: ? Continue home dose of losartan 50 mg, metoprolol 25 mg daily Documented By: Calvin Underwood DO 10/16/21 1535 Signed By: <Electronically signed by Calvin Underwood, > 10/16/21 1536 [facility] Work Phone: 1([phone] 345-972708-03-2022 Progress note Author Karsten Vega [facility] October 15, 2021 2:24pm Note Date/Time October 15, 2021 2:2 4pm [facility] [address] [place] [address] Vascular Surgery Progress Note Signed Patient: Ema Neff MR#: [id number] : 1965 Acct:[id number] Age/Sex: 56 / F Adm Date: 2 Loc: Room: 7E4555-5 Type: ADM IN Attending Dr: Zaid Mon MD Copies to: ~ Date of Service: 10/15/2021 Subjective Subjective Interval history: Today she tried to work with therapy but had difficulty with weightbearing on her operated leg due to discomfort mostly at the surgical site. Her ischemic rest pain is relieved since her surgical bypass. Exam Physical Exam Vital Signs: Temp Pulse Resp BP Pulse Ox O2 Del Method O2 Flow Rate 97.8 F 78 18 118/73 100 Nasal Cannula 3 10/15/21 11:02 10/15/21 11:02 10/15/21 03:45 10/15/21 11:02 10/15/21 11:02 10/15/21 11:40 10/15/21 11:40 Narrative: Surgical sites are intact. The ischemic ulcer on her left proximal foot is improving already and has some granulation at its base with a much healthier appearing edge. The toes are stable. Doppler examination shows excellent peroneal signal in the outflow peroneal artery below the bypass. On the foot the posterior tibial signals present. Objective Labs CBC & Chem 7: 10/14/21 06:20 10/14/21 06:20 Other Labs: Laboratory Results - last 24 hr 10/14/21 10/14/21 10/15/21 16:09 21:08 07:41 POC Glucose 229 160 119 POC Glucose Comment Glu2: cleaned meter Glu2: cleaned meter 10/15/21 11:35 POC Glucose 165 POC Glucose Comment Glu2: cleaned meter A&P - Vascular Assessment/Plan (1) PAD (peripheral artery disease): Her graft is patent at this time and her foot is improving. Progress will be slow given that her outflow was limited to the peroneal artery. I encouraged her to work as hard as she can with physical therapy so that she potentially canqualify for inpatient rehabilitation. Code(s): I73.9 - Peripheral vascular disease, unspecified Status: Acute Documented By: Karsten Vega MD 10/15/21 142 2 Signed By: <Electronically signed by MD Karsten Vega> 10/15/21 1424 [facility] Work Phone: [phone] 260-920508-03-2022 Progress note Author Calvin Underwood [facility] October 15, 2021 12:59pm Note Date/Time October 15, 2021 12: 59pm [facility] [address] [place] [address] Hospitalist Progress Note Signed Patient: Ema Neff MR#: [id number] : 1965 Acct:[id number] Age/Sex: 56 / F Adm Date: 2 Loc: 4 Room: [address] [place] [address] Type: ADM IN Attending Dr: Zaid Mon MD Copies to: ~ Date of Service: 10/15/2021 Subjective Subjective Narrative: Interviewed and examined bedside, no complaints from overnight. Her blood sugaris better controlled than yesterday. Exam Physical Exam Vital Signs: Temp Pulse Resp BP Pulse Ox O2 Del Method O2 Flow Rate 97.8 F 78 18 118/73 100 Nasal Cannula 2 10/15/21 11:02 10/15/21 11:02 10/15/21 03:45 10/15/21 11:02 10/15/21 11:02 10/15/21 11:02 10/15/21 11:02 Narrative: General: Awake alert, no acute distress. HEENT: head atraumatic, normocephalic, moist mucous membranes, normal nose and ears, no throat lesions, normal conjunctiva Neck: supple no masses, no lymphadenopathy CVS: regular rate and rhythm, no murmurs or gallops Respiratory: clear to auscultation bilaterally, no wheezing or crackles, symmetric expansion GI: soft, nondistended, nontender, positive bowel sounds with no organomegaly Extremity: moves all extremities, no restrictions of movements, no calf tenderness, no edema. Left foot is wrapped in surgical dressings, CDI. Neuro: AOx3, CN II-VII intact. Moves all extremities in all planes of motion. Skin: dry, intact no rashes or lesions Objective Lab Results CBC & Chem 7: 10/14/21 06:20 10/14/21 06:20 Meds Allergies and Active Meds Allergies hydrocodone [From Vicodin] Allergy (Verified 09/27/21 12:00) Hallucinating Steroid Injection Allergy (Uncoded 09/26/21 20:11) Swelling Active Meds: Active Medications Generic Name Dose Route Start Last Admin Trade Name Freq PRN Reason Stop Dose Admin Amitriptyline HCl 50 mg 10/13/21 22:00 10/14/21 21:27 Amitriptyline 50 Mg Tablet PO 10/13/22 21:59 50 mg HS PAULINO Administration Aspirin 81 mg 10/13/21 14:00 10/15/21 08:11 Aspirin 81 Mg Tablet. PO 10/13/22 13:59 81 mg DAILY PAULINO Administration Atorvastatin Calcium 20 mg 10/13/21 22:00 10/14/21 21:27 Atorvastatin 20 Mg Tablet PO 10/13/22 21:59 20 mg QHS PAULINO Administration Clopidogrel Bisulfate 75 mg 10/13/21 15:00 10/15/21 08:11 Clopidogrel Bisulfate 75 Mg Tablet PO 10/13/22 14:59 75 mg DAILY PAULINO Administration Collagenase 1 applic 10/14/21 14:00 10/14/21 14:22 Collagenase 250 Unit/Gm Oint 30 Gm Tube TOPICAL 10/14/22 13:59 1 applic DAILY PAULINO Administration Cyclobenzaprine HCl 10 mg 10/13/21 13:46 10/13/21 20:52 Cyclobenzaprine 10 Mg Tablet PO 10/13/22 13:45 10 mg QHS PRN Administration Muscle Spasm Dextrose 0 gm 10/13/21 19:25 Dextrose 50% In Water 25 Gm/50 Ml Syringe IV-PUSH 10/13/22 19:24 PRN PRN Hypoglycemia Dextrose 0 gm 10/14/21 13:44 Dextrose 50% In Water 25 Gm/50 Ml Syringe IV-PUSH 10/14/22 13:43 PRN PRN Hypoglycemia Docusate Sodium 200 mg 10/13/21 21:00 10/15/21 08:10 Docusate 100 Mg Capsule PO 10/13/22 20:59 200 mg BID PAULINO Administration Enoxaparin Sodium 40 mg 10/14/21 10:00 10/15/21 09:03 Enoxaparin 40 Mg/0.4 Ml Syringe SUBCUT 10/14/22 09:59 40 mg DAILY@1000 PAULINO Administration Fluticasone Propionate 1 spray 10/13/21 13:46 Fluticasone Propionate Greenbush 120 Greenbush/16 Gm Bottle INTRANASAL 10/13/22 13:45 QHS PRN Nasal Congestion Gabapentin 800 mg 10/13/21 18:00 10/15/21 08:10 Gabapentin 800 Mg Tablet PO 10/13/22 17:59 800 mg QID PAULINO Administration Glucose 0 gm 10/13/21 19:25 Dextrose 40% Gel 15 Gm Tube PO 10/13/22 19:24 PRN PRN Hypoglycemia Glucose 0 gm 10/14/21 13:44 Dextrose 40% Gel 15 Gm Tube PO 10/14/22 13:43 PRN PRN Hypoglycemia Hydromorphone HCl 0.5 mg 10/13/21 13:49 10/15/21 10:55 Hydromorphone 0.5 Mg/0.5 Ml Syringe IV-PUSH 0.5 mg Q4H PRN Administration Pain Scale 4 - 7 Sodium Chloride 1,000 mls @ 100 mls/hr 10/13/21 14:15 10/15/21 06:52 0.9% Sodium Chloride 1,000 Ml IV 10/13/22 14:14 Not Given .Q10H PAULINO Clindamycin Phosphate 600 mg in 50 mls @ 100 mls/hr 10/13/21 22:00 10/15/21 05:36 Cleocin IV 100 mls/hr Q8H PAULINO Administration Insulin Aspart 0 units 10/13/21 22:00 10/15/21 11:42 Insulin Aspart 300 Units/3 Ml Insuln.Pen SUBCUT 10/13/22 21:59 1 units TID.WM.HS PAULINO Administration Protocol Insulin Aspart 4 units 10/14/21 16:30 10/15/21 11:43 Insulin Aspart 300 Units/3 Ml Insuln.Pen SUBCUT 10/14/22 16:29 4 units TID.AC PAULINO Administration Insulin Detemir 15 units 10/15/21 22:00 Insulin Detemir 300 Units/3 Ml Insuln.Pen SUBCUT 10/15/22 21:59 QHS PAULINO Levothyroxine Sodium 125 mcg 10/14/21 06:30 10/15/21 05:37 Levothyroxine 125 Mcg Tablet PO 10/14/22 06:29 125 mcg DAILY.0630 PAULINO Administration Losartan Potassium 50 mg 10/14/21 09:00 10/15/21 08:11 Losartan 50 Mg Tablet PO 10/14/22 08:59 50 mg QAM PAULINO Administration Meclizine HCl 25 mg 10/13/21 13:46 Meclizine 25 Mg Tablet PO 10/13/22 13:45 QHS PRN Vertigo Metoprolol Succinate 50 mg 10/13/21 15:00 10/15/21 08:11 Metoprolol Succinate 50 Mg Tab.Er.24h PO 10/13/22 14:59 50 mg DAILY PAULINO Administration Naproxen 500 mg 10/13/21 21:00 10/15/21 08:10 Naproxen 500 Mg Tablet PO 10/13/22 20:59 500 mg BID PAULINO Administration Nystatin 1 applic 10/13/21 13:46 Nystatin 100,000 Unit/Gm Oint 15 Gm Tube TOPICAL 10/13/22 13:45 TID PRN Rash Ondansetron HCl 4 mg 10/13/21 13:49 Ondansetron 4 Mg/2 Ml Vial IV-PUSH 10/13/22 13:48 Q6H PRN Nausea And Vomiting Oxycodone HCl 5 - 10 mg 10/13/21 13:46 10/15/21 11:53 Oxycodone Ir 5 Mg Tablet PO 10 mg Q4HR PRN Administration pain Sennosides 2 tab 10/13/21 13:46 Sennosides 8.6 Mg Tablet PO 10/13/22 13:45 BID PRN constipation Sodium Chloride 0 ml 10/13/21 07:59 Sodium Chloride 0.9 % 10 Ml Syringe IV-PUSH 10/13/22 07:58 PRN PRN Flush A&P - Hospitalist Assessment/Plan (1) Diabetes mellitus: Plan: ? Patient's home glimepiride 4 mg is on hold currently due to not tolerating a full diet yet. ? A1c on September 28, 2021 was 6.7 ? Detemir 15 units nightly - Lispro 5 units TID - Sliding scale #1 ?Once patient is tolerating normal diet plan to resume her home glimepiride uponD/C (2) Chronic ulcer of left foot due to diabetes mellitus: Plan: Status post vascular intervention, see procedure note for further details (3) Diabetic foot infection: Plan: ? See above, management per vascular surgery ? Patient was recently discharged on October 10 on Keflex. Cultures from that visit returned positive for a staph epidermidis which was resistant to Keflex. A prescription for clindamycin was sent to the patient's pharmacy ? Confirming with vascular, planning to DC Keflex that is ordered and start clindamycin to resume her therapy (4) PAD (peripheral artery disease): (5) HTN (hypertension), benign: Plan: ? Continue home dose of losartan 50 mg, metoprolol 25 mg daily Documented By: Calvin Underwood DO 10/15/21 1258 Signed By: <Electronically signed by Calvin Underwood DO> 10/15/21 1259 [facility] Work Phone: 1(307) 299-328208-02-2022 Progress note Author Calvin Underwood [facility] October 14, 2021 2:05pm Note Date/Time October 14, 2021 1:5 1pm [facility] [address] [place] [address] Hospitalist Progress Note Signed Patient: Ema Neff MR#: [id number] : 1965 Acct:[id number] Age/Sex: 56 / F Adm Date: 2 Loc: 4N Room: 5Z1592-7 Type: ADM IN Attending Dr: Zaid Mon MD Copies to: ~ Date of Service: 10/14/2021 Subjective Subjective Narrative: Interviewed and examined at bedside, has a few muscle cramps in her left calf but otherwise denies any issues. Exam Physical Exam Vital Signs: Temp Pulse Resp BP Pulse Ox O2 Del Method O2 Flow Rate 98.2 F 78 14 106/70 100 Nasal Cannula 2 10/14/21 11:38 10/14/21 11:38 10/14/21 11:38 10/14/21 11:38 10/14/21 11:38 10/14/21 11:38 10/14/21 11:38 Narrative: General: Awake alert, no acute distress. HEENT: head atraumatic, normocephalic, moist mucous membranes, normal nose and ears, no throat lesions, normal conjunctiva Neck: supple no masses, no lymphadenopathy CVS: regular rate and rhythm, no murmurs or gallops Respiratory: clear to auscultation bilaterally, no wheezing or crackles, symmetric expansion GI: soft, nondistended, nontender, positive bowel sounds with no organomegaly Extremity: moves all extremities, no restrictions of movements, no calf tenderness, no edema. Left foot is wrapped in surgical dressings, CDI. Neuro: AOx3, CN II-VII intact. Moves all extremities in all planes of motion. Skin: dry, intact no rashes or lesions Objective Lab Results CBC & Chem 7: 10/14/21 06:20 10/14/21 06:20 Meds Allergies and Active Meds Allergies hydrocodone [From Vicodin] Allergy (Verified 09/27/21 12:00) Hallucinating Steroid Injection Allergy (Uncoded 09/26/21 20:11) Swelling Active Meds: Active Medications Generic Name Dose Route Start Last Admin Trade Name Jamesq PRN Reason Stop Dose Admin Amitriptyline HCl 50 mg 10/13/21 22:00 10/13/21 21:00 Amitriptyline 50 Mg Tablet PO 10/13/22 21:59 Not Given HS PAULINO Aspirin 81 mg 10/13/21 14:00 10/14/21 08:36 Aspirin 81 Mg Tablet. PO 10/13/22 13:59 81 mg DAILY PAULINO Administration Atorvastatin Calcium 20 mg 10/13/21 22:00 10/13/21 21:00 Atorvastatin 20 Mg Tablet PO 10/13/22 21:59 20 mg QHS PAULINO Administration Clopidogrel Bisulfate 75 mg 10/13/21 15:00 10/14/21 08:36 Clopidogrel Bisulfate 75 Mg Tablet PO 10/13/22 14:59 75 mg DAILY PAULINO Administration Collagenase 1 applic 10/14/21 14:00 Collagenase 250 Unit/Gm Oint 30 Gm Tube TOPICAL 10/14/22 13:59 DAILY PAULINO Cyclobenzaprine HCl 10 mg 10/13/21 13:46 10/13/21 20:52 Cyclobenzaprine 10 Mg Tablet PO 10/13/22 13:45 10 mg QHS PRN Administration Muscle Spasm Dextrose 0 gm 10/13/21 19:25 Dextrose 50% In Water 25 Gm/50 Ml Syringe IV-PUSH 10/13/22 19:24 PRN PRN Hypoglycemia Docusate Sodium 200 mg 10/13/21 21:00 10/14/21 08:36 Docusate 100 Mg Capsule PO 10/13/22 20:59 200 mg BID PAULINO Administration Enoxaparin Sodium 40 mg 10/14/21 10:00 10/14/21 09:56 Enoxaparin 40 Mg/0.4 Ml Syringe SUBCUT 10/14/22 09:59 Not Given DAILY@1000 [facility] Fluticasone Propionate 1 spray 10/13/21 13:46 Fluticasone Propionate Greenbush 120 Greenbush/16 Gm Bottle INTRANASAL 10/13/22 13:45 QHS PRN Nasal Congestion Gabapentin 800 mg 10/13/21 18:00 10/14/21 08:36 Gabapentin 800 Mg Tablet PO 10/13/22 17:59 800 mg QID PAULINO Administration Glucose 0 gm 10/13/21 19:25 Dextrose 40% Gel 15 Gm Tube PO 10/13/22 19:24 PRN PRN Hypoglycemia Hydromorphone HCl 0.5 mg 10/13/21 13:49 10/14/21 09:55 Hydromorphone 0.5 Mg/0.5 Ml Syringe IV-PUSH 0.5 mg Q4H PRN Administration Pain Scale 4 - 7 Sodium Chloride 1,000 mls @ 100 mls/hr 10/13/21 14:15 10/14/21 02:37 0.9% Sodium Chloride 1,000 Ml IV 10/13/22 14:14 100 mls/hr .Q10H PAULINO Administration Clindamycin Phosphate 600 mg in 50 mls @ 100 mls/hr 10/13/21 22:00 10/14/21 05:55 Cleocin IV 100 mls/hr Q8H PAULINO Administration Insulin Aspart 0 units 10/13/21 22:00 10/14/21 12:43 Insulin Aspart 300 Units/3 Ml Insuln.Pen SUBCUT 10/13/22 21:59 2 units TID.WM.HS PAULINO Administration Protocol Levothyroxine Sodium 125 mcg 10/14/21 06:30 10/14/21 05:55 Levothyroxine 125 Mcg Tablet PO 10/14/22 06:29 125 mcg DAILY.0630 PAULINO Administration Losartan Potassium 50 mg 10/14/21 09:00 10/14/21 08:36 Losartan 50 Mg Tablet PO 10/14/22 08:59 50 mg QAM PAULINO Administration Meclizine HCl 25 mg 10/13/21 13:46 Meclizine 25 Mg Tablet PO 10/13/22 13:45 QHS PRN Vertigo Metoprolol Succinate 50 mg 10/13/21 15:00 10/14/21 08:37 Metoprolol Succinate 50 Mg Tab.Er.24h PO 10/13/22 14:59 50 mg DAILY PAULINO Administration Naproxen 500 mg 10/13/21 21:00 10/14/21 08:36 Naproxen 500 Mg Tablet PO 10/13/22 20:59 500 mg BID PAULINO Administration Nystatin 1 applic 10/13/21 13:46 Nystatin 100,000 Unit/Gm Oint 15 Gm Tube TOPICAL 10/13/22 13:45 TID PRN Rash Ondansetron HCl 4 mg 10/13/21 13:49 Ondansetron 4 Mg/2 Ml Vial IV-PUSH 10/13/22 13:48 Q6H PRN Nausea And Vomiting Oxycodone HCl 5 - 10 mg 10/13/21 13:46 10/14/21 12:43 Oxycodone Ir 5 Mg Tablet PO 10 mg Q4HR PRN Administration pain Sennosides 2 tab 10/13/21 13:46 Sennosides 8.6 Mg Tablet PO 10/13/22 13:45 BID PRN constipation Sodium Chloride 0 ml 10/13/21 07:59 Sodium Chloride 0.9 % 10 Ml Syringe IV-PUSH 10/13/22 07:58 PRN PRN Flush A&P - Hospitalist Assessment/Plan (1) Diabetes mellitus: Plan: ? Patient's home glimepiride 4 mg is on hold currently due to not tolerating a full diet yet. ? A1c on September 28, 2021 was 6.7 ? Detemir 10u qhs - Lispro 4 units TID - Sliding scale #1 ?Once patient is tolerating normal diet plan to resume her home glimepiride uponD/C (2) Chronic ulcer of left foot due to diabetes mellitus: Plan: Status post vascular intervention, see procedure note for further details (3) Diabetic foot infection: Plan: ? See above, management per vascular surgery ? Patient was recently discharged on October 10 on Keflex. Cultures from that visit returned positive for a staph epidermidis which was resistant to Keflex. A prescription for clindamycin was sent to the patient's pharmacy ? Confirming with vascular, planning to DC Keflex that is ordered and start clindamycin to resume her therapy (4) PAD (peripheral artery disease): (5) HTN (hypertension), benign: Plan: ? Continue home dose of losartan 50 mg, metoprolol 25 mg daily Documented By: Calvin Underwood DO 10/14/21 1349 Signed By: <Electronically signed by Calvin Underwood DO> 10/14/21 2698 [facility] Work Phone: 1(184) 210-572808-02-2022 Progress note Author Zaid Mon [facility] October 20, 2021 11:59am Note Date/Time October 14, 2021 7:5 0am [facility] [address] [place] [address] Vascular Surgery Progress Note Signed Patient: Ema Neff MR#: [id number] : 1965 Acct:[id number] Age/Sex: 56 / F Adm Date: 2 Loc: 4N Room: 8Z9270-0 Type: DIS IN Attending Dr: Zaid Mon MD Copies to: ~ Date of Service: 10/14/2021 Subjective Subjective Interval history: Patient was examined resting comfortably in bed this morning. She complains of some pain in the left extremity. Exam Physical Exam Vital Signs: Temp Pulse Resp BP Pulse Ox O2 Del Method O2 Flow Rate 97.4 F L 78 16 126/85 98 Nasal Cannula 3 10/14/21 04:00 10/14/21 04:00 10/14/21 04:00 10/14/21 04:00 10/14/21 04:00 10/14/21 04:00 10/14/21 04:00 Const General: cooperative and no acute distress Orientation: alert, awake and oriented x3 Eyes General: appearance normal, both eyes and all related structures Resp Effort & Inspection: normal respiratory effort, able to speak in complete sentences, no audible wheezes and no cough Auscultation: clear to auscultation bilaterally Cardio Rate: regular rate Rhythm: regular rhythm Heart Sounds: S1 normal and S2 normal Neuro General: CN's II-XI intact bilaterally Extrem Other: Left extremity slightly cool to touch with decreased capillary refill. Posteriortibial pulse found by doppler. Both incisions are clean, dry and intact. Psych Appearance: grossly normal Affect: normal affect Objective Labs CBC & Chem 7: 10/14/21 06:20 10/14/21 06:20 Other Labs: Laboratory Results - last 24 hr 10/13/21 10/13/21 10/13/21 08:34 08:35 08:35 Corrected WBC 17.7 H Uncorrected WBC Count 17.7 H RBC 3.48 L Hgb 10.4 L Hct 32.4 L MCV 93.0 MCH 30.0 MCHC 32.2 RDW 16.5 H Plt Count 535 H MPV 7.1 Neut % (Auto) 76.3 Lymph % (Auto) 15.1 [place] % (Auto) 4.8 Eos % (Auto) 3.0 Baso % (Auto) 0.8 Neut # (Auto) 13.5 H Lymph # (Auto) 2.7 [place] # (Auto) 0.9 H Eos # (Auto) 0.5 H Baso # (Auto) 0.1 Nucleated RBC % (auto) 0.2 Activated Clotting Time PHA Creatinine Clear Sodium Potassium Chloride Carbon Dioxide BUN Creatinine Est GFR ( Amer) Est GFR (Non-Af Amer) Glucose POC Glucose 126 POC Glucose Comment Glu2: cleaned meter Calcium Blood Type B Negative Antibody Screen Negative 10/13/21 10/13/21 10/13/21 12:18 13:51 21:36 Corrected WBC Uncorrected WBC Count RBC Hgb Hct MCV MCH MCHC RDW Plt Count MPV Neut % (Auto) Lymph % (Auto) [place] % (Auto) Eos % (Auto) Baso % (Auto) Neut # (Auto) Lymph # (Auto) [place] # (Auto) Eos # (Auto) Baso # (Auto) Nucleated RBC % (auto) Activated Clotting Time 242 H PHA Creatinine Clear Sodium Potassium Chloride Carbon Dioxide BUN Creatinine Est GFR ( Amer) Est GFR (Non-Af Amer) Glucose POC Glucose 231 254 POC Glucose Comment Calcium Blood Type Antibody Screen 10/14/21 10/14/21 06:20 06:20 Corrected WBC 24.5 H Uncorrected WBC Count 24.5 H RBC 3.00 L Hgb 8.9 L Hct 28.0 L MCV 93.5 MCH 29.8 MCHC 31.8 L RDW 16.9 H Plt Count 536 H MPV 7.0 Neut % (Auto) 88.9 Lymph % (Auto) 6.4 [place] % (Auto) 4.4 Eos % (Auto) 0.1 Baso % (Auto) 0.2 Neut # (Auto) 21.8 H Lymph # (Auto) 1.6 [place] # (Auto) 1.1 H Eos # (Auto) 0.0 Baso # (Auto) 0.0 Nucleated RBC % (auto) 0.1 Activated Clotting Time PHA Creatinine Clear 94.09 Sodium 136 Potassium 4.1 Chloride 100 Carbon Dioxide 29.3 BUN 11 Creatinine 0.86 Est GFR ( Amer) > 60 Est GFR (Non-Af Amer) > 60 Glucose 189 H POC Glucose POC Glucose Comment Calcium 8.5 Blood Type Antibody Screen A&P - Vascular Assessment/Plan (1) Postoperative examination: Patient is status p/o day 1. Incision is clean and dry with minimal erythema. Pain is adequately controlled on current regimen. Code(s): Z09 - Encounter for follow-up examination after completed treatment for conditions other than malignant neoplasm Status: Acute (2) PAD (peripheral artery disease): Her graft is patent at this time and her foot is improving. Progress will be slow given that her outflow was limited to the peroneal artery. I encouraged her to work as hard as she can with physical therapy so that she potentially canqualify for inpatient rehabilitation. This is Dr. Mon. [place] [employer] [place] on official duty. I was not able to see this patient today. Code(s): I73.9 - Peripheral vascular disease, unspecified Status: Acute Time Spent with Patient Time Spent With Patient (min): 20 Documented By: Julia Martinez DO, RES 10/14/21 0743 Signed By: <Electronically signed by DO JESUS Martinez> 10/14/21 0753 <Electronically signed by Zaid Mon MD> 10/20/21 7981 [facility] Work Phone: [phone] 411-575408-01-2022 Consult note Author Calvin Underwood [facility] October 13, 2021 9:05pm Note Date/Time October 13, 2021 7:3 5pm [facility] [address] [place] [address] Hospitalist Consult Note Signed Patient: Ema Neff MR#: [id number] : 1965 Acct:[id number] Age/Sex: 56 / F Adm Date: 2 Loc: Room: [address] [place] [address] Type: ADM IN Attending Dr: Calvin Underwood DO Copies to: MD Calvin Mascorro, DO~ HPI DATE OF CONSULTATION: 10/13/21 REQUESTING PROVIDER: Calvin Underwood Consult Narrative Reason for Consult: Hyperglycemia HPI: Ms. Neff is a 56-year-old female admitted to the hospital for surgical intervention of a diabetic foot ulcer on her left foot seen on hospitalist consult for management of her diabetes and hyperglycemia. She has a medical history significant for DM type II with neuropathy, peripheral artery disease with multiple interventions, hypertension, hyperlipidemia and is a current smoker. She has had numerous interventions on her left foot, including a partial toe mutation of her second toe this past March, history of a right second toe amputation. She does follow with vascular surgery for her peripheralartery disease. On interview tonight, she states her diabetes is fairly well controlled as her only medication is glipizide 5 mg, and states that her blood sugar has been high today because she did not take her medication due to the planned surgery with vascular intervention. Review of Systems Review of Systems Review of systems: Constitutional: Denies body aches, chills, fatigue Denies any blurry or double vision CV: Denies chest pain, irregular rhythm, shortness of breath, leg swelling Respiratory, denies shortness of breath, cough, wheeze, pain with deep inspiration GI: Denies any nausea, vomiting, diarrhea, constipation, changes in bowel habitsoverall MSK: Denies joint pain, denies joint swelling, denies back pain, denies weakness. Pain in left leg and foot Neurologic: Denies confusion, denies dizziness, denies headaches, denies lack coordination Psychiatric: Denies depression, denies behavioral changes Hematology: Denies easy bruising, denies easy bleeding PMFSH Vaccinated for COVID-19?: Yes Medical History (Updated 10/13/21 @ 08:11 by Audrey Owens RN) Arthritis Back pain Bronchitis Cellulitis DDD (degenerative disc disease) Diabetes Diabetes mellitus, type 2 DJD (degenerative joint disease) Eczema GERD (gastroesophageal reflux disease) since being dx with thyroid problems Gout History of amputation of toe History of CVA in adulthood rt sided weakness Hyperlipidemia Hypertension Hyperthyroidism Menopause Neuropathy Osteoporosis Sleep apnea no machine Smoker quit 03/2021 Tachycardia Ulcerative colitis Surgical History (Updated 10/13/21 @ 08:11 by Audrey Owens RN) History of carpal tunnel surgery of right wrist History of cholecystectomy History of endometrial ablation History of surgery on wrist carpal tunnel and ulnar nerve rt arm; carpal tunnel left History of thyroidectomy History of tonsillectomy History of tubal ligation Hx of angioplasty bilateral legs x2, 2 stents on R Hx of cataract surgery bilateral S/P angioplasty with stent rt leg Family History Father Bladder cancer Prostate cancer Diabetes Mother H/O blood clots Social History Smoking Status: Former smoker Tobacco Type: cigarettes Substance Use Type: None Social History Comments: Patient is . She resides with her spouse. She uses no DME. She is on disability due to chronic low back pain which she feels is from a work injury. Meds Medications and Allergies Allergies hydrocodone [From Vicodin] Allergy (Verified 09/27/21 12:00) Hallucinating Steroid Injection Allergy (Uncoded 09/26/21 20:11) Swelling Home Medications losartan 50 mg tablet 50 mg PO QAM htn 11/02/17 [History Confirmed 10/13/21] fluticasone propionate 50 mcg/actuation nasal spray,suspension (Flonase Allergy Relief) 1 spray intranasal QHS PRN Nasal Congestion 03/06/18 [History Confirmed 10/13/21] amitriptyline 25 mg tablet 50 mg PO HS insomnia 01/21/21 [History Confirmed 10/13/21] gabapentin 800 mg tablet 800 mg PO QID neuropathy 01/21/21 [History Confirmed 10/13/21] glimepiride 4 mg tablet 4 mg PO QAM diabetes 01/21/21 [History Confirmed 10/13/21] meloxicam 15 mg tablet 15 mg PO DAILY arthritis 01/21/21 [History Confirmed 10/13/21] meclizine 25 mg tablet 25 mg PO QHS PRN Vertigo 02/12/21 [History Confirmed 10/13/21] nystatin 100,000 unit/gram topical ointment 1 applic topical TID PRN rash 03/10/21 [History Confirmed 10/13/21] aspirin 81 mg tablet,delayed release 81 mg PO DAILY PVD 05/02/21 [History Confirmed 10/13/21] atorvastatin 20 mg tablet (Lipitor) 20 mg PO QHS hyperlipidemia 05/02/21 [History Confirmed 10/13/21] clopidogrel 75 mg tablet 75 mg PO DAILY PVD 05/02/21 [History Confirmed 10/13/21] cyclobenzaprine 5 mg tablet 10 mg PO QHS PRN Muscle Spasm 05/02/21 [History Confirmed 10/13/21] metoprolol succinate 25 mg tablet,extended release 24 hr 50 mg PO DAILY tachycardia/overactive thyroid 05/02/21 [History Confirmed 10/13/21] levothyroxine 125 mcg tablet 125 mcg PO DAILY 09/27/21 [History Confirmed 10/13/21] docusate sodium 100 mg capsule 200 mg PO BID 30 days #120 caps 10/09/21 [Rx Confirmed 10/13/21] oxycodone 5 mg tablet 5 - 10 mg PO Q4HR PRN pain 5 days #50 tabs 10/09/21 [Rx Confirmed 10/13/21] sennosides 8.6 mg tablet (Senna Lax) 2 tab PO BID PRN constipation 30 days #120 tabs 10/09/21 [Rx Confirmed 10/13/21] cephalexin 500 mg capsule 500 mg PO TID 10/13/21 [History Confirmed 10/13/21] Active Medications: Active Medications Generic Name Dose Route Start Last Admin Trade Name Freq PRN Reason Stop Dose Admin Amitriptyline HCl 50 mg 10/13/21 22:00 Amitriptyline 50 Mg Tablet PO 10/13/22 21:59 HS PAULINO Aspirin 81 mg 10/13/21 14:00 10/13/21 15:48 Aspirin 81 Mg Tablet.Dr ZAMBRANO 10/13/22 13:59 81 mg DAILY PAULINO Administration Atorvastatin Calcium 20 mg 10/13/21 22:00 Atorvastatin 20 Mg Tablet PO 10/13/22 21:59 QHS PAULINO Cephalexin HCl 500 mg 10/13/21 14:00 10/13/21 15:48 Cephalexin 500 Mg Capsule PO 10/16/21 23:59 500 mg TID PAULINO Administration Clopidogrel Bisulfate 75 mg 10/13/21 15:00 10/13/21 15:48 Clopidogrel Bisulfate 75 Mg Tablet PO 10/13/22 14:59 75 mg DAILY PAULINO Administration Cyclobenzaprine HCl 10 mg 10/13/21 13:46 Cyclobenzaprine 10 Mg Tablet PO 10/13/22 13:45 QHS PRN Muscle Spasm Docusate Sodium 200 mg 10/13/21 21:00 Docusate 100 Mg Capsule PO 10/13/22 20:59 BID PAULINO Enoxaparin Sodium 30 mg 10/15/21 10:00 Enoxaparin 30 Mg/0.3 Ml Syringe SUBCUT 10/15/22 09:59 DAILY@1000 [facility] Fluticasone Propionate 1 spray 10/13/21 13:46 Fluticasone Propionate Greenbush 120 Greenbush/16 Gm Bottle INTRANASAL 10/13/22 13:45 QHS PRN Nasal Congestion Gabapentin 800 mg 10/13/21 18:00 10/13/21 18:35 Gabapentin 800 Mg Tablet PO 10/13/22 17:59 800 mg QID PAULINO Administration Glimepiride 4 mg 10/14/21 09:00 Glimepiride 4 Mg Tablet PO 10/14/22 08:59 QAM [facility] Hydromorphone HCl 0.5 mg 10/13/21 13:49 10/13/21 15:48 Hydromorphone 0.5 Mg/0.5 Ml Syringe IV-PUSH 0.5 mg Q4H PRN Administration Pain Scale 4 - 7 Sodium Chloride 1,000 mls @ 100 mls/hr 10/13/21 14:15 10/13/21 15:48 0.9% Sodium Chloride 1,000 Ml IV 10/13/22 14:14 100 mls/hr .Q10H PAULINO Administration Insulin Aspart 0 units 10/13/21 22:00 Insulin Aspart 300 Units/3 Ml Insuln.Pen SUBCUT 10/13/22 21:59 TID.WM.HS [facility] Protocol Levothyroxine Sodium 125 mcg 10/14/21 06:30 Levothyroxine 125 Mcg Tablet PO 10/14/22 06:29 DAILY.0630 [facility] Losartan Potassium 50 mg 10/14/21 09:00 Losartan 50 Mg Tablet PO 10/14/22 08:59 QAM PAULNIO Meclizine HCl 25 mg 10/13/21 13:46 Meclizine 25 Mg Tablet PO 10/13/22 13:45 QHS PRN Vertigo Metoprolol Succinate 50 mg 10/13/21 15:00 10/13/21 15:48 Metoprolol Succinate 50 Mg Tab.Er.24h PO 10/13/22 14:59 50 mg DAILY [facility] Administration Naproxen 500 mg 10/13/21 21:00 Naproxen 500 Mg Tablet PO 10/13/22 20:59 BID [facility] Nystatin 1 applic 10/13/21 13:46 Nystatin 100,000 Unit/Gm Oint 15 Gm Tube TOPICAL 10/13/22 13:45 TID PRN Rash Ondansetron HCl 4 mg 10/13/21 13:49 Ondansetron 4 Mg/2 Ml Vial IV-PUSH 10/13/22 13:48 Q6H PRN Nausea And Vomiting Oxycodone HCl 5 - 10 mg 10/13/21 13:46 10/13/21 18:35 Oxycodone Ir 5 Mg Tablet PO 10 mg Q4HR PRN Administration pain Sennosides 2 tab 10/13/21 13:46 Sennosides 8.6 Mg Tablet PO 10/13/22 13:45 BID PRN constipation Sodium Chloride 0 ml 10/13/21 07:59 Sodium Chloride 0.9 % 10 Ml Syringe IV-PUSH 10/13/22 07:58 PRN PRN Flush Exam Physical Exam Vital Signs: Temp Pulse Resp BP Pulse Ox O2 Del Method O2 Flow Rate 97.6 F 85 12 135/86 100 Nasal Cannula 1 10/13/21 14:06 10/13/21 15:06 10/13/21 15:06 10/13/21 15:06 10/13/21 16:00 10/13/21 17:07 10/13/21 17:07 Narrative: General: Awake alert, no acute distress. HEENT: head atraumatic, normocephalic, moist mucous membranes, normal nose and ears, no throat lesions, normal conjunctiva Neck: supple no masses, no lymphadenopathy CVS: regular rate and rhythm, no murmurs or gallops Respiratory: clear to auscultation bilaterally, no wheezing or crackles, symmetric expansion GI: soft, nondistended, nontender, positive bowel sounds with no organomegaly Extremity: moves all extremities, no restrictions of movements, no calf tenderness, no edema. Left foot is wrapped in surgical dressings, CDI. Neuro: AOx3, CN II-VII intact. Moves all extremities in all planes of motion. Skin: dry, intact no rashes or lesions Results Lab Results Labs: Laboratory Results - last 72 hr 10/13/21 13:51: POC Glucose 231 10/13/21 12:18: Activated Clotting Time 242 H 10/13/21 08:35: Corrected WBC 17.7 H, Uncorrected WBC Count 17.7 H, RBC 3.48 L, Hgb 10.4 L, Hct 32.4 L, MCV 93.0, MCH 30.0, MCHC 32.2, RDW 16.5 H, Plt Count 535H, MPV 7.1, Neut % (Auto) 76.3, Lymph % (Auto) 15.1, [place] % (Auto) 4.8, Eos % (Auto) 3.0, Baso % (Auto) 0.8, Neut # (Auto) 13.5 H, Lymph # (Auto) 2.7, [place] # (Auto) 0.9 H, Eos # (Auto) 0.5 H, Baso # (Auto) 0.1, Nucleated RBC % (auto) 0.2 10/13/21 08:35: Blood Type B Negative, Antibody Screen Negative 10/13/21 08:34: POC Glucose 126, POC Glucose Comment Glu2: cleaned meter A&P - Hospitalist Assessment/Plan (1) Diabetes mellitus: Plan: ? Patient's home glimepiride 4 mg is on hold currently due to not tolerating a full diet yet. ? A1c on September 28, 2021 was 6.7 ? Lispro sliding scale #1 initiated, if she requires more we will adjust this tomorrow. ?Once patient is tolerating normal diet plan to resume her home glimepiride (2) Chronic ulcer of left foot due to diabetes mellitus: Plan: Status post vascular intervention, see procedure note for further details (3) Diabetic foot infection: Plan: ? See above, management per vascular surgery ? Patient was recently discharged on October 10 on Keflex. Cultures from that visit returned positive for a staph epidermidis which was resistant to Keflex. A prescription for clindamycin was sent to the patient's pharmacy ? Confirming with vascular, planning to DC Keflex that is ordered and start clindamycin to resume her therapy (4) PAD (peripheral artery disease): (5) HTN (hypertension), benign: Plan: ? Continue home dose of losartan 50 mg, metoprolol 25 mg daily Documented By: Calvin Underwood DO 10/13/211926 Signed By: <Electronically signed by Calvin Underwood DO> 10/13/212104 [facility] Work Phone: [phone] 202-813908-01-2022 [facility] Progress note Author Adithya Rm [facility] October 08, 2021 9:38pm Note Date/Time October 08, 2021 9:38 pm [facility] [address] [place] [address] Hospitalist Progress Note Signed Patient: Ema Neff MR#: [id number] : 1965 Acct:[id number] Age/Sex: 56 / F Adm Date: 2 Loc: Room: [address] [place] [address] Type: ADM IN Attending Dr: Adithya Rm DO Copies to: ~ Date of Service: 10/08/2021 Subjective Subjective Narrative: Patient did have significant pain last night after the podiatric procedure. Pain medications were increased over the nighttime. She denies any other symptoms. No nausea or vomiting. No fevers chills. No diaphoresis. No chest pain or palpitations. No cough or expectoration any sputum. Exam Physical Exam Vital Signs: Temp Pulse Resp BP Pulse Ox O2 Del Method O2 Flow Rate 97.9 F 91 H 20 105/76 96 Room Air 6 10/08/21 19:45 10/08/21 19:45 10/08/21 19:45 10/08/21 19:45 10/08/21 19:45 10/08/21 19:45 10/07/21 19:04 FiO2 30 10/01/21 15:00 Narrative: General: Awake, alert, oriented. Moving herself around on a bedside commode. Pulmonary: Clear to auscultation throughout. No wheezes, rhonchi, or crackles. Cardiac: Regular rate and rhythm. Heart somewhat distant to auscultation. No rubs or gallops. GI: Abdomen soft, normal bowel sounds to auscultation. Objective Lab Results CBC & Chem 7: 10/08/21 05:13 10/08/21 05:13 Microbiology Results Microbiology 10/07/21 18:30 Foot,Left - Other Gram Stain - Final 10/07/21 18:30 Foot,Left - Other Gram Stain - Final Meds Allergies and Active Meds Allergies hydrocodone [From Vicodin] Allergy (Verified 09/27/21 12:00) Hallucinating Steroid Injection Allergy (Uncoded 09/26/21 20:11) Swelling Active Meds: Active Medications Generic Name Dose Route Start Last Admin Trade Name Amarilis PRN Reason Stop Dose Admin Acetaminophen 650 mg 09/27/21 14:45 Acetaminophen 325 Mg Tablet PO 09/27/22 14:44 Q4H PRN Pain Scale 1 - 5 Amitriptyline HCl 50 mg 09/27/21 22:00 10/07/21 22:00 Amitriptyline 50 Mg Tablet PO 09/27/22 21:59 50 mg HS PAULINO Administration Aspirin 81 mg 09/28/21 09:00 10/08/21 08:23 Aspirin 81 Mg Tablet. PO 09/28/22 08:59 81 mg DAILY PAULINO Administration Atorvastatin Calcium 20 mg 09/27/21 22:00 10/07/21 22:00 Atorvastatin 20 Mg Tablet PO 09/27/22 21:59 20 mg QHS PAULINO Administration Calcium Carbonate 1,000 mg 10/04/21 15:38 10/04/21 16:04 Calcium Carbonate 500 Mg Tab.Chew PO 10/04/22 15:37 1,000 mg Q6H PRN Administration Dyspepsia Clopidogrel Bisulfate 75 mg 09/28/21 09:00 10/08/21 08:23 Clopidogrel Bisulfate 75 Mg Tablet PO 09/28/22 08:59 75 mg DAILY PAULINO Administration Cyclobenzaprine HCl 10 mg 09/27/21 14:43 10/08/21 03:34 Cyclobenzaprine 10 Mg Tablet PO 09/27/22 14:42 10 mg QHS PRN Administration Muscle Spasm Dextrose 0 gm 09/27/21 14:45 10/02/21 17:26 Dextrose 50% In Water 25 Gm/50 Ml Syringe IV-PUSH 09/27/22 14:44 25 gm PRN PRN Administration Hypoglycemia Docusate Sodium 200 mg 10/08/21 21:00 Docusate 100 Mg Capsule PO 10/08/22 20:59 BID PAULINO Enoxaparin Sodium 40 mg 09/28/21 10:00 10/08/21 11:14 Enoxaparin 40 Mg/0.4 Ml Syringe SUBCUT 09/28/22 09:59 40 mg DAILY@1000 PAULINO Administration Fluticasone Propionate 1 spray 10/01/21 06:38 Fluticasone Propionate Greenbush 120 Greenbush/16 Gm Bottle INTRANASAL 10/01/22 06:37 QHS PRN Nasal Congestion Gabapentin 800 mg 09/27/21 18:00 10/08/21 17:46 Gabapentin 800 Mg Tablet PO 09/27/22 17:59 800 mg QID PAULINO Administration Glucose 0 gm 09/27/21 14:45 Dextrose 40% Gel 15 Gm Tube PO 09/27/22 14:44 PRN PRN Hypoglycemia Hydralazine HCl 10 mg 09/27/21 14:45 Hydralazine 20 Mg/Ml Vial IV-PUSH 09/27/22 14:44 Q4H PRN if SBP > 185 Ceftriaxone Sodium 2 gm in 50 mls @ 100 mls/hr 09/30/21 17:45 10/08/21 00:48 Rocephin IV 100 mls/hr Q24H PAULINO Administration Insulin Aspart 0 units 09/27/21 17:00 10/08/21 17:49 Insulin Aspart 300 Units/3 Ml Insuln.Pen SUBCUT 09/27/22 16:59 1 units TID.WM.HS PAULINO Administration Protocol Levothyroxine Sodium 125 mcg 09/28/21 06:30 10/08/21 07:29 Levothyroxine 125 Mcg Tablet PO 09/28/22 06:29 125 mcg DAILY@0630 PAULINO Administration Losartan Potassium 50 mg 09/28/21 09:00 10/04/21 09:09 Losartan 50 Mg Tablet PO 09/28/22 08:59 50 mg QAM PAULINO Administration Meclizine HCl 25 mg 10/01/21 06:38 Meclizine 25 Mg Tablet PO 10/01/22 06:37 QHS PRN Vertigo Metoprolol Succinate 50 mg 09/28/21 09:00 10/08/21 08:24 Metoprolol Succinate 50 Mg Tab.Er.24h PO 09/28/22 08:59 50 mg DAILY PAULINO Administration Morphine Sulfate 4 mg 10/08/21 15:00 10/08/21 18:46 Morphine Sulfate 2 Mg/Ml Vial IV-PUSH 4 mg Q4H PRN Administration Pain Naproxen 500 mg 10/01/21 09:00 10/08/21 08:23 Naproxen 500 Mg Tablet PO 10/01/22 08:59 500 mg BID PAULINO Administration Nystatin 1 applic 10/01/21 08:15 Nystatin 100,000 Unit/Gm Oint 30 Gm Tube TOPICAL 10/01/22 08:14 TID PRN rash Ondansetron HCl 4 mg 09/27/21 14:45 Ondansetron 4 Mg/2 Ml Vial IV-PUSH 09/27/22 14:44 Q6H PRN Nausea And Vomiting Oxycodone HCl 5 mg 10/08/21 13:06 Oxycodone Ir 5 Mg Tablet PO Q4HR PRN Moderate Pain Oxycodone HCl 10 mg 10/08/21 13:05 10/08/21 17:46 Oxycodone Ir 5 Mg Tablet PO 10 mg Q4HR PRN Administration severe pain Sennosides 2 tab 10/08/21 21:00 Sennosides 8.6 Mg Tablet PO 10/08/22 20:59 BID [facility] Sodium Chloride 0 ml 09/27/21 12:00 10/07/21 21:59 Sodium Chloride 0.9 % 10 Ml Syringe IV-PUSH 09/27/22 11:59 10 ml PRN PRN Administration Flush A&P - Hospitalist Assessment/Plan (1) Hematoma: (2) Peripheral vascular occlusive disease: (3) Ulcer of right foot with fat layer exposed: (4) 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 Continue sliding scale insulin if needed. Hemoglobin A1c is good at 6.7 DVT prophylaxis CODE STATUS full Documented By: Adithya Rm DO [id number] Signed By: <Electronically signed by Adithya Rm DO> 10/08/212137 [facility] Work Phone: 1(314) 570-413207-27-2022 Progress note Author AUTUMN Mehta [facility] October 08, 2021 6:57pm Note Date/Time October 08, 2021 6:57 pm [facility] [address] [place] [address] Podiatry Progress Note Signed Patient: Ema Neff MR#: [id number] : 1965 Acct:[id number] Age/Sex: 56 / F Adm Date: 2 Loc: Room: [address] [place] [address] Type: ADM IN Attending Dr: Adithya Rm DO Copies to: ~ Subjective Subjective Date of Service: Date of Service: 10/08/2021 Time of Service: 18:48 Narrative: Ms. Neff is a 56 year old female who is being seen at this time for first postop visit status post left second toe stump amputation, and ulceration/gangrene debridement bilateral foot. Patient had pain last evening/night however that has since been rectified and the patient still in pain it is more tolerable. Patient's appetite this morning was good for breakfast however poor for lunch and dinner just arrived before I enter the patient's room. Overall, patient doing well. Patient denies fevers, chills, nausea, vomiting, sweats, diarrhea, chest pain, calf pain injuries or trauma to bilateral foot. Exam Physical Exam Vital Signs: Temp Pulse Resp BP Pulse Ox O2 Del Method O2 Flow Rate 98 F 81 20 108/73 97 Room Air 6 10/08/21 16:00 10/08/21 16:00 10/08/21 16:10/08/21 16:10/08/21 16:10/08/21 16:00 10/07/21 19:04 FiO2 30 10/01/21 15:00 Narrative: Patient is awake alert and orient x3 resting comfortably in bed. Dressings are intact bilaterally. Vascular examination: Shows decreased pedal pulses bilaterally please see patient extensive vascular consultation and history including arteriograms and surgical interventions. Please note patient has waiting for early this coming week for revascularization left lower extremity with possible resection of partial fibula-per patient statement and per consultations note. Neurological examination: Shows peripheral neuropathy left lower extremity including motor, autonomic and sensory types-nonpainful. Muscle skeletal strength show significant muscle weakness to the toes bilaterally otherwise patient able dorsiflex plantarflex ankles and foot bilaterally however patient was not taken out of bed for muscle weightbearing, gait evaluation, gait analysis please note. Offloading: None: Patient was advised we will will place order in for offloadingof bilateral ankle, heel and feet. Patient understood the reasoning why offloading is imperative to prevent further skin breakdown. Orthopedic examination: Status post left second toe partial amputation: Now withgangrene and exposed bone of the proximal phalanx positive for clinical osteomyelitis. Dermatology: Skin is thin, dry, poorly hydrated, poor skin turgor, no pedal hairgrowth. No active signs of cellulitis in terms of my physical examination is appreciated. Left foot: Postoperative ulceration gangrene debridements look clean healthy andviable at this time surprisingly as well the second toe amputation stump amputation at the MPJ level. Sutures are intact and skin incision looks viable. Minimally tender ulceration medial left foot around the first metatarsal region. Right foot: Ulceration/surgical wound right forefoot status post amputation of second toe overall looks very good. There is 1 nylon suture intact the medial right third toe where the joint capsule was almost exposed I did not want to have that open otherwise likely patient's third toe would need amputation soon. 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 Patient seen today for follow-up examination status post amputation of left second toe partial amputation-converted to complete amputation at the metatarsophalangeal joint level. 2. Patient was evaluated amputation site looks actually clean healthy and viable surprisingly. 3. We will maintain cleansing patient's incisions and ulcerations with sterile Vashe solution followed by Medihoney and dry sterile dressing daily until healed. 4. Vascular surgery is planning outpatient bypass left lower extremity this coming 10-13-2021. Patient was advised of such. Patient will be contacted by vascular team to schedule exact time. 5. Patient advised to maintain strict diabetic control, offloading, increase low-fat oral protein with her meals to increase ulceration and amputation site healing potential. 6. Elevation of feet are imperative to avoid swelling/dependency which impairs healing greatly. 7. I left a text message with vascular surgeon Dr. Mon and at this time once we obtain final culture tomorrow I would be okay and Dr. Mon agreed,discharge patient and she can reappoint Wednesday morning for vascular surgery as scheduled. 8. Maintain dressing changes as prescribed daily until further notice. 9. Continue: Offloading bilateral ankle, heel, feet-rolled up pillows behind ankle so that heels are suspended off of bed. Skin breakdown is a major concernand further risk that should be prevented. 10. Await final intraoperative cultures from last night, address appropriate antibiotic requirement and discharge patient to home-if okay with other medical and infectious and non- podiatric physician teams. Code(s): L97.524 - Non-pressure chronic ulcer of other part of left foot with necrosis ofbone (2) Ulcer of right foot with fat layer exposed: Code(s): L97.512 - Non-pressure chronic ulcer of other part of right foot with fat layer exposed (3) Diabetic foot infection: Code(s): E11.628 - Type 2 diabetes mellitus with other skin complications; L08.9 - Local infection of the skin and subcutaneous tissue, unspecified (4) Diabetes mellitus with foot ulcer: Code(s): E11.621 - Type 2 diabetes mellitus with foot ulcer; L97.509 - Non-pressure chronic ulcer of other part of unspecified foot with unspecified severity (5) PVD (peripheral vascular disease): Code(s): I73.9 - Peripheral vascular disease, unspecified (6) Hypoalbuminemia due to protein-calorie malnutrition: Code(s): E88.09 - Other disorders of plasma-protein metabolism, not elsewhere classified;E46 - Unspecified protein-calorie malnutrition (7) Malnutrition: Code(s): E46 - Unspecified protein-calorie malnutrition (8) Surgical wound, non healing: Plan: 1. Please see above plan for same orders and plan. Code(s): T81.89XA - Other complications of procedures, not elsewhere classified, initial encounter (9) Postoperative examination: Plan: 1. Patient seen today for first postop visit status post second toe stump amputation at the MPJ level. 2. Other ulcerations were evaluated and everything looks viable at this time surprisingly. Please see above documented plan for plan for amputation site left second toe and other ulcerations with gangrene left and right foot. Code(s): Z09 - Encounter for follow-up examination after completed treatment for conditions other than malignant neoplasm Time Spent with Patient Time Spent With Patient (min): 30 Documented By: Kanu Mehta,TERESA, , AUTUMN 09/13 Signed By: <Electronically signed by TERESA Mehta> 10/08/211856 [facility] Work Phone: [phone]) 752-816307-26-2022 Progress note Author Adithya Rm [facility] October 07, 2021 5:14pm Note Date/Time October 07, 2021 5:14 pm [facility] [address] [place] [address] Hospitalist Progress Note Signed Patient: Ema Neff MR#: [id number] : 1965 Acct:[id number] Age/Sex: 56 / F Adm Date: 2 Loc: Room: [address] [place] [address] Type : ADM IN Attending Dr: Adithya Rm DO Copies to: ~ Date of Service: 10/07/2021 Subjective Subjective Narrative: Patient is getting ready to go to the podiatric surgery by Dr. Mehta. She got some IV Dilaudid earlier and feels the pain is really well controlled her foot at this time. She denies any other symptoms. No nausea or vomiting. No fevers chills. No diaphoresis. No chest pain or palpitations. No cough or expectoration any sputum. Exam Physical Exam Vital Signs: Temp Pulse Resp BP Pulse Ox O2 Del Method O2 Flow Rate 98.3 F 89 18 115/78 96 Room Air 2 10/07/21 16:00 10/07/21 16:00 10/07/21 16:00 10/07/21 16:00 10/07/21 16:00 10/07/21 16:00 10/02/21 09:00 FiO2 30 10/01/21 15:00 Narrative: General: Awake, alert, oriented. Moving herself around on her bed. Pulmonary: Clear to auscultation throughout. No wheezes, rhonchi, or crackles. Cardiac: Regular rate and rhythm. Heart somewhat distant to auscultation. BMI 28.8. No rubs or gallops. GI: Abdomen soft, normal bowel sounds to auscultation. Extremities: Both feet with gauze bandages on. Minimal edema in the ankles bilaterally. Objective Lab Results CBC & Chem 7: 10/07/21 05:35 10/07/21 05:35 Meds Allergies and Active Meds Allergies hydrocodone [From Vicodin] Allergy (Verified 09/27/21 12:00) Hallucinating Steroid Injection Allergy (Uncoded 09/26/21 20:11) Swelling Active Meds: Active Medications Generic Name Dose Route Start Last Admin Trade Name Freq PRN Reason Stop Dose Admin Acetaminophen 650 mg 09/27/21 14:45 Acetaminophen 325 Mg Tablet PO 09/27/22 14:44 Q4H PRN Pain Scale 1 - 5 Amitriptyline HCl 50 mg 09/27/21 22:00 10/06/21 21:13 Amitriptyline 50 Mg Tablet PO 09/27/22 21:59 50 mg HS PAULINO Administration Aspirin 81 mg 09/28/21 09:00 10/07/21 08:17 Aspirin 81 Mg Tablet. PO 09/28/22 08:59 Not Given DAILY PAULINO Atorvastatin Calcium 20 mg 09/27/21 22:00 10/06/21 21:14 Atorvastatin 20 Mg Tablet PO 09/27/22 21:59 20 mg QHS PAULINO Administration Calcium Carbonate 1,000 mg 10/04/21 15:38 10/04/21 16:04 Calcium Carbonate 500 Mg Tab.Chew PO 10/04/22 15:37 1,000 mg Q6H PRN Administration Dyspepsia Chlorhexidine Gluconate 15 ml 10/01/21 09:00 10/07/21 08:17 Chlorhexidine Gluconate 0.12% 15 Ml Udc MUCOUS MEM 10/01/22 08:59 Not Given BID PAULINO Clopidogrel Bisulfate 75 mg 09/28/21 09:00 10/07/21 08:17 Clopidogrel Bisulfate 75 Mg Tablet PO 09/28/22 08:59 Not Given DAILY PAULINO Cyclobenzaprine HCl 10 mg 09/27/21 14:43 10/05/21 21:48 Cyclobenzaprine 10 Mg Tablet PO 09/27/22 14:42 10 mg QHS PRN Administration Muscle Spasm Dextrose 0 gm 09/27/21 14:45 10/02/21 17:26 Dextrose 50% In Water 25 Gm/50 Ml Syringe IV-PUSH 09/27/22 14:44 25 gm PRN PRN Administration Hypoglycemia Docusate Sodium 200 mg 09/27/21 14:45 Docusate 100 Mg Capsule PO 09/27/22 14:44 BID PRN Constipation Enoxaparin Sodium 40 mg 09/28/21 10:00 10/07/21 11:13 Enoxaparin 40 Mg/0.4 Ml Syringe SUBCUT 09/28/22 09:59 Not Given DAILY@1000 [facility] Fluticasone Propionate 1 spray 10/01/21 06:38 Fluticasone Propionate Greenbush 120 Greenbush/16 Gm Bottle INTRANASAL 10/01/22 06:37 QHS PRN Nasal Congestion Gabapentin 800 mg 09/27/21 18:00 10/07/21 14:01 Gabapentin 800 Mg Tablet PO 09/27/22 17:59 Not Given QID PAULINO Glucose 0 gm 09/27/21 14:45 Dextrose 40% Gel 15 Gm Tube PO 09/27/22 14:44 PRN PRN Hypoglycemia Hydralazine HCl 10 mg 09/27/21 14:45 Hydralazine 20 Mg/Ml Vial IV-PUSH 09/27/22 14:44 Q4H PRN if SBP > 185 Hydromorphone HCl 0.5 mg 10/07/21 10:48 10/07/21 14:42 Hydromorphone 0.5 Mg/0.5 Ml Syringe IV-PUSH 0.5 mg Q2H PRN Administration Pain Ceftriaxone Sodium 2 gm in 50 mls @ 100 mls/hr 09/30/21 17:45 10/06/21 21:45 Rocephin IV Infused Q24H PAULINO Infusion Lactated Ringer's 1,000 mls @ 20 mls/hr 10/07/21 16:45 10/07/21 16:50 Lactated Ringers IV 10/07/22 16:44 20 mls/hr .Q24H PAULINO Administration Insulin Aspart 0 units 09/27/21 17:00 10/07/21 16:56 Insulin Aspart 300 Units/3 Ml Insuln.Pen SUBCUT 09/27/22 16:59 Not Given TID.WM.HS [facility] Protocol Levothyroxine Sodium 125 mcg 09/28/21 06:30 10/07/21 06:07 Levothyroxine 125 Mcg Tablet PO 09/28/22 06:29 125 mcg DAILY@0630 PAULINO Administration Losartan Potassium 50 mg 09/28/21 09:00 10/04/21 09:09 Losartan 50 Mg Tablet PO 09/28/22 08:59 50 mg QAM PAULINO Administration Meclizine HCl 25 mg 10/01/21 06:38 Meclizine 25 Mg Tablet PO 10/01/22 06:37 QHS PRN Vertigo Metoprolol Succinate 50 mg 09/28/21 09:00 10/07/21 08:16 Metoprolol Succinate 50 Mg Tab.Er.24h PO 09/28/22 08:59 50 mg DAILY PAULINO Administration Naproxen 500 mg 10/01/21 09:00 10/07/21 08:17 Naproxen 500 Mg Tablet PO 10/01/22 08:59 Not Given BID [facility] Nystatin 1 applic 10/01/21 08:15 Nystatin 100,000 Unit/Gm Oint 30 Gm Tube TOPICAL 10/01/22 08:14 TID PRN rash Ondansetron HCl 4 mg 09/27/21 14:45 Ondansetron 4 Mg/2 Ml Vial IV-PUSH 09/27/22 14:44 Q6H PRN Nausea And Vomiting Oxycodone/Acetaminophen 2 tab 10/06/21 17:15 10/07/21 02:37 Oxycodone/Acetaminophen 5-325 Mg Tablet PO 2 tab Q4H PRN Administration Pain Sodium Chloride 0 ml 09/27/21 12:00 09/29/21 05:55 Sodium Chloride 0.9 % 10 Ml Syringe IV-PUSH 09/27/22 11:59 10 ml PRN PRN Administration Flush A&P - Hospitalist Assessment/Plan (1) Hematoma: (2) Peripheral vascular occlusive disease: (3) Ulcer of right foot with fat layer exposed: (4) 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 Mehta. Vascular surgery on board, patient is agreeable for bypass surgery Wound culture positive for strep agalactiae, on appropriate antibiotic Podiatry on board Hold losartan due to low blood pressure, continue metoprolol succinate Hold glimepiride given plans for surgery and decreased oral intake of food. Continue sliding scale insulin if needed. Hemoglobin A1c is good at 6.7 DVT prophylaxis CODE STATUS full Documented By: Adithya Rm DO 1712 Signed By: <Electronically signed by Adithya Rm DO> 10/07/211713 [facility] Work Phone: [phone]) 391-693807-25-2022 Progress note Author Adithya Rm [facility] October 06, 2021 6:12pm Note Date/Time October 06, 2021 5:12 pm [facility] [address] [place] [address] Hospitalist Progress Note Signed Patient: Ema Neff MR#: [id number] : 1965 Acct:[id number] Age/Sex: 56 / F Adm Date: 2 Loc: Room: [address] [place] [address] Type : ADM IN Attending Dr: Adithya Rm DO Copies to: ~ Date of Service: 10/06/2021 Subjective Subjective Narrative: Patient says that she is feeling good. Other than pain in her foot. She understands that vascular surgery and then also podiatry with Dr. Mehta will need to do surgical procedures in the near future. She understood that she had talked to the vascular surgeons earlier today. No other adverse symptomatology at this time: No fevers chills. No headache or lightheadedness. No chest pain or palpitations. No cough or expectoration any sputum. Had constipation for a while but feels that is fully resolved now. Does admit to some heartburn but the nursing staff is getting ready to give her some Tums. Exam Physical Exam Vital Signs: Temp Pulse Resp BP Pulse Ox O2 Del Method O2 Flow Rate 98.0 F 74 16 114/76 98 Room Air 2 10/06/21 16:00 10/06/21 16:00 10/06/21 16:00 10/06/21 16:00 10/06/21 16:00 10/06/21 16:00 10/02/21 09:00 FiO2 30 10/01/21 15:00 Narrative: General: Awake, alert, oriented. Moving herself around on her bed. Pulmonary: Clear to auscultation throughout. No wheezes, rhonchi, or crackles. Cardiac: Regular rate and rhythm. Heart somewhat distant to auscultation. BMI 28.8. No rubs or gallops. GI: Abdomen soft, normal bowel sounds to auscultation. Extremities: Both feet with gauze bandages on. Minimal edema in the ankles bilaterally. Objective Lab Results CBC & Chem 7: 10/06/21 05:22 10/06/21 05:22 Meds Allergies and Active Meds Allergies hydrocodone [From Vicodin] Allergy (Verified 09/27/21 12:00) Hallucinating Steroid Injection Allergy (Uncoded 09/26/21 20:11) Swelling Active Meds: Active Medications Generic Name Dose Route Start Last Admin Trade Name Freq PRN Reason Stop Dose Admin Acetaminophen 650 mg 09/27/21 14:45 Acetaminophen 325 Mg Tablet PO 09/27/22 14:44 Q4H PRN Pain Scale 1 - 5 Amitriptyline HCl 50 mg 09/27/21 22:00 10/05/21 21:48 Amitriptyline 50 Mg Tablet PO 09/27/22 21:59 50 mg HS PAULINO Administration Aspirin 81 mg 09/28/21 09:00 10/06/21 08:33 Aspirin 81 Mg Tablet.Dr PO 09/28/22 08:59 81 mg DAILY PAULINO Administration Atorvastatin Calcium 20 mg 09/27/21 22:00 10/05/21 21:48 Atorvastatin 20 Mg Tablet PO 09/27/22 21:59 20 mg QHS PAULINO Administration Calcium Carbonate 1,000 mg 10/04/21 15:38 10/04/21 16:04 Calcium Carbonate 500 Mg Tab.Chew PO 10/04/22 15:37 1,000 mg Q6H PRN Administration Dyspepsia Chlorhexidine Gluconate 15 ml 10/01/21 09:00 10/06/21 08:33 Chlorhexidine Gluconate 0.12% 15 Ml Udc MUCOUS MEM 10/01/22 08:59 Not Given BID PAULINO Clopidogrel Bisulfate 75 mg 09/28/21 09:00 10/06/21 08:33 Clopidogrel Bisulfate 75 Mg Tablet PO 09/28/22 08:59 75 mg DAILY PAULINO Administration Cyclobenzaprine HCl 10 mg 09/27/21 14:43 10/05/21 21:48 Cyclobenzaprine 10 Mg Tablet PO 09/27/22 14:42 10 mg QHS PRN Administration Muscle Spasm Dextrose 0 gm 09/27/21 14:45 10/02/21 17:26 Dextrose 50% In Water 25 Gm/50 Ml Syringe IV-PUSH 09/27/22 14:44 25 gm PRN PRN Administration Hypoglycemia Docusate Sodium 200 mg 09/27/21 14:45 Docusate 100 Mg Capsule PO 09/27/22 14:44 BID PRN Constipation Enoxaparin Sodium 40 mg 09/28/21 10:00 10/06/21 11:26 Enoxaparin 40 Mg/0.4 Ml Syringe SUBCUT 09/28/22 09:59 Not Given DAILY@1000 [facility] Fluticasone Propionate 1 spray 10/01/21 06:38 Fluticasone Propionate Greenbush 120 Greenbush/16 Gm Bottle INTRANASAL 10/01/22 06:37 QHS PRN Nasal Congestion Gabapentin 800 mg 09/27/21 18:00 10/06/21 17:05 Gabapentin 800 Mg Tablet PO 09/27/22 17:59 800 mg QID PAULINO Administration Glucose 0 gm 09/27/21 14:45 Dextrose 40% Gel 15 Gm Tube PO 09/27/22 14:44 PRN PRN Hypoglycemia Hydralazine HCl 10 mg 09/27/21 14:45 Hydralazine 20 Mg/Ml Vial IV-PUSH 09/27/22 14:44 Q4H PRN if SBP > 185 Ceftriaxone Sodium 2 gm in 50 mls @ 100 mls/hr 09/30/21 17:45 10/05/21 21:48 Rocephin IV 100 mls/hr Q24H PAULINO Administration Insulin Aspart 0 units 09/27/21 17:00 10/06/21 12:40 Insulin Aspart 300 Units/3 Ml Insuln.Pen SUBCUT 09/27/22 16:59 Not Given TID.WM.HS [facility] Protocol Levothyroxine Sodium 125 mcg 09/28/21 06:30 10/06/21 06:49 Levothyroxine 125 Mcg Tablet PO 09/28/22 06:29 Not Given DAILY@0630 [facility] Losartan Potassium 50 mg 09/28/21 09:00 10/04/21 09:09 Losartan 50 Mg Tablet PO 09/28/22 08:59 50 mg QAM PAULINO Administration Meclizine HCl 25 mg 10/01/21 06:38 Meclizine 25 Mg Tablet PO 10/01/22 06:37 QHS PRN Vertigo Metoprolol Succinate 50 mg 09/28/21 09:00 10/06/21 08:33 Metoprolol Succinate 50 Mg Tab.Er.24h PO 09/28/22 08:59 50 mg DAILY [facility] Administration Naproxen 500 mg 10/01/21 09:00 10/06/21 08:33 Naproxen 500 Mg Tablet PO 10/01/22 08:59 500 mg BID PAULINO Administration Nystatin 1 applic 10/01/21 08:15 Nystatin 100,000 Unit/Gm Oint 30 Gm Tube TOPICAL 10/01/22 08:14 TID PRN rash Ondansetron HCl 4 mg 09/27/21 14:45 Ondansetron 4 Mg/2 Ml Vial IV-PUSH 09/27/22 14:44 Q6H PRN Nausea And Vomiting Oxycodone/Acetaminophen 2 tab 10/03/21 18:27 10/06/21 12:43 Oxycodone/Acetaminophen 5-325 Mg Tablet PO 2 tab Q6H PRN Administration Pain Sodium Chloride 0 ml 09/27/21 12:00 09/29/21 05:55 Sodium Chloride 0.9 % 10 Ml Syringe IV-PUSH 09/27/22 11:59 10 ml PRN PRN Administration Flush A&P - Hospitalist Assessment/Plan (1) Hematoma: (2) Peripheral vascular occlusive disease: (3) Ulcer of right foot with fat layer exposed: (4) 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 Continue sliding scale insulin if needed. Hemoglobin A1c is good at 6.7 DVT prophylaxis CODE STATUS full Documented By: Adithya Rm DO 1705 Signed By: <Electronically signed by Adithya Rm, > 10/06/21 181 [facility] Work Phone: 1(119) 358-238207-25-2022 Progress note Author CWSacha Mehta [facility] October 06, 2021 5:53pm Note Date/Time October 06, 2021 5:53 pm [facility] [address] [place] [address] Podiatry Progress Note Signed Patient: Ema Neff MR#: [id number] : 1965 Acct:[id number] Age/Sex: 56 / F Adm Date: 2 Loc: Room: [address] [place] [address] Type : ADM IN Attending Dr: Adithya Rm DO Copies to: ~ Subjective Subjective Date of Service: Date of Service: 10/06/2021 Time of Service: 17:44 Narrative: Ms. Nfef is a 56 year old female who is having increased pain left lower extremity. Patient was seen by vascular surgery earlier today and at this pointcontact between myself and vascular surgical team recommended that I proceed with my plan podiatric surgery and if patient is healing well then vascular bypass may be delayed or patient pain increases bypass will be expedited. Patient is gangrenous left second toe and fourth distal toe are stable however her midfoot/arch ulceration is more tender per patient statement. Patient's amputation of the right second toe looks stable and has no specific pain. Patient denies fevers, chills, nausea, vomiting, sweats, diarrhea, chest pain, calf pain injuries or trauma to bilateral foot. Exam Physical Exam Vital Signs: Temp Pulse Resp BP Pulse Ox O2 Del Method O2 Flow Rate 98.0 F 74 16 114/76 98 Room Air 2 10/06/21 16:00 10/06/21 16:00 10/06/21 16:00 10/06/21 16:00 10/06/21 16:00 10/06/21 16:00 10/02/21 09:00 FiO2 30 10/01/21 15:00 Narrative: Patient is awake alert and orient x3 resting comfortably in bed. Dressings are intact bilaterally. Vascular examination: Shows decreased pedal pulses bilaterally please see patient extensive vascular consultation and history including arteriograms and surgical interventions. Please note patient has waiting for early this coming week for revascularization left lower extremity with possible resection of partial fibula-per patient statement and per consultations note. Neurological examination: Shows peripheral neuropathy left lower extremity including motor, autonomic and sensory types-nonpainful. Muscle skeletal strength show significant muscle weakness to the toes bilaterally otherwise patient able dorsiflex plantarflex ankles and foot bilaterally however patient was not taken out of bed for muscle weightbearing, gait evaluation, gait analysis please note. Offloading: None: Patient was advised we will will place order in for offloadingof bilateral ankle, heel and feet. Patient understood the reasoning why offloading is imperative to prevent further skin breakdown. Orthopedic examination: Status post left second toe partial amputation: Now withgangrene and exposed bone of the proximal phalanx positive for clinical osteomyelitis. Dermatology: Skin is thin, dry, poorly hydrated, poor skin turgor, no pedal hairgrowth. No active signs of cellulitis in terms of my physical examination is appreciated. Left foot: Minimally tender ulceration medial left foot around the first metatarsal region has some nonviable skin and slough that could use excisional debridement, gangrene to the distal left fourth toe can also use excisional debridement though it is without sign of infection. The left second toe distal aspect the proximal phalanx is exposed positive for clinical osteomyelitis this from previous partial amputation of the distal, middle and head of the proximal phalanx left second toe. The bone is hard however there is nonviable tissue around this area that needs to be excised as well as removal of the proximal phalanx in toto. Right foot: Ulceration/surgical wound right forefoot status post amputation of second toe has minimal nonviable yellow-white slough that could be sharply widely excisionally excised to aggressively advanced ulceration/amputation site healing. 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 Patient seen today for follow-up consultation. 2. Patient was seen by vascular surgical team earlier today and I have been advised to proceed with the planned podiatry surgeries/amputation ulcer debridements at this time and if patient does not heal as expected or if pain increases: Vascular bypass will be pursued. Patient was advised of such earliertoday and agreed with the recommendation. 3. Patient was advised at this time that we would like to proceed with limb salvage attempt by performing amputation of left second toe proximal phalanx stump-from previous partial amputation, gangrene debridement to the third distalleft fourth toe, possible medial left hallux and definitely debridement of the medial left midfoot ulceration as well as the right second toe amputation site. All the sites have either nonviable skin and slough as well as partial gangrene could benefit greatly from surgical excisional debridement and power antibiotic lavage: All in an attempt of limb salvage however patient was advised no guarantees can be given nor implied about healing, timeline of healing or limb salvage. The informed consent was signed and witnessed obviously and patient wants to be under light sedation so we will go under a MAC anesthesia with localanesthetic block plan surgery would not be able to be performed by myself until after 530 or 6 PM tomorrow therefore patient will be n.p.o. as of tomorrow morning 6 AM. 4. Maintain dressing changes as prescribed daily until further notice. 5. Offloading: Order was written for offloading bilateral ankle, heel, feet- rolled up pillows behind ankle so that heels are suspended off of bed. Skin breakdown is a major concern and further risk that should be prevented. 6. Maintain other present medical, nutritional, offloading, antibiotics until further notice. Code(s): L97.524 - Non-pressure chronic ulcer of other part of left foot with necrosis ofbone (2) Ulcer of right foot with fat layer exposed: Code(s): L97.512 - Non-pressure chronic ulcer of other part of right foot with fat layer exposed (3) Diabetic foot infection: Code(s): E11.628 - Type 2 diabetes mellitus with other skin complications; L08.9 - Local infection of the skin and subcutaneous tissue, unspecified (4) Diabetes mellitus with foot ulcer: Code(s): E11.621 - Type 2 diabetes mellitus with foot ulcer; L97.509 - Non-pressure chronic ulcer of other part of unspecified foot with unspecified severity (5) PVD (peripheral vascular disease): Code(s): I73.9 - Peripheral vascular disease, unspecified (6) Hypoalbuminemia due to protein-calorie malnutrition: Code(s): E88.09 - Other disorders of plasma-protein metabolism, not elsewhere classified;E46 - Unspecified protein-calorie malnutrition (7) Malnutrition: Code(s): E46 - Unspecified protein-calorie malnutrition (8) Surgical wound, non healing: Plan: 1. Patient seen today for follow-up examination at this time we will proceed with surgical debridement of right foot amputation site of right second toe-we will excise sharply widely and excisionally all nonviable tissue followed by power antibiotic lavage. 2. Patient will be n.p.o. after 6 AM tomorrow morning for planned 6 PM surgery tomorrow evening. 3. The informed consent was signed and witnessed at this time and no guaranteeswere given or implied about healing, timeline of healing or limb salvage. Obviously patient understands as he has been through multiple podiatric, diabetic, vascular ulcerations and concerns. Code(s): T81.89XA - Other complications of procedures, not elsewhere classified, initial encounter Documented By: Kanu Mehta,TERESA, , AUTUMN 09/13 Signed By: <Electronically signed by TERESA MS AUTUMN Mehta> 10/06/211752 [facility] Work Phone: 1([phone]) 109-902307-24-2022 Progress note Author Clyde Luna [facility] October 05, 2021 2:14pm Note Date/Time October 05, 2021 2:14 pm [facility] [address] [place] [address] Hospitalist Progress Note Signed Patient: Ema Neff MR#: [id number] : 1965 Acct:[id number] Age/Sex: 56 / F Adm Date: 2 Loc: Room: [address] [place] [address] Type : ADM IN Attending Dr: Clyde Luna MD Copies to: ~ Date of Service: 10/05/2021 Subjective Subjective Narrative: Patient seen and examined. She is comfortable at rest. Denies any new complaints. Patient is agreeable with bypass surgery and would like to get it done during this admission. Physical exam: General -awake, alert, oriented ?3, not in acute distress, walking in the room Cardiovascular -S1 with S2 Pulmonary - clear to auscultation bilaterally Gastrointestinal - abdomen is soft, nondistended, nontender, bowel sounds positive, there is no rigidity, no rebound Extremities -bilateral foot ulcerations, left foot unchanged Neurological -no focal neurological dysfunction noted Exam Physical Exam Vital Signs: Temp Pulse Resp BP Pulse Ox O2 Del Method O2 Flow Rate 97.8 F 76 18 121/75 95 Room Air 2 10/05/21 11:22 10/05/21 11:22 10/05/21 11:22 10/05/21 11:22 10/05/21 11:22 10/05/21 11:22 10/02/21 09:00 FiO2 30 10/01/21 15:00 Objective Lab Results CBC & Chem 7: 10/04/21 05:49 10/02/21 06:00 Meds Allergies and Active Meds Allergies hydrocodone [From Vicodin] Allergy (Verified 09/27/21 12:00) Hallucinating Steroid Injection Allergy (Uncoded 09/26/21 20:11) Swelling Active Meds: Active Medications Generic Name Dose Route Start Last Admin Trade Name Freq PRN Reason Stop Dose Admin Acetaminophen 650 mg 09/27/21 14:45 Acetaminophen 325 Mg Tablet PO 09/27/22 14:44 Q4H PRN Pain Scale 1 - 5 Amitriptyline HCl 50 mg 09/27/21 22:00 10/04/21 21:21 Amitriptyline 50 Mg Tablet PO 09/27/22 21:59 50 mg HS PAULINO Administration Aspirin 81 mg 09/28/21 09:00 10/05/21 08:31 Aspirin 81 Mg Tablet.Dr PO 09/28/22 08:59 81 mg DAILY PAULINO Administration Atorvastatin Calcium 20 mg 09/27/21 22:00 10/04/21 21:21 Atorvastatin 20 Mg Tablet PO 09/27/22 21:59 20 mg QHS PAULINO Administration Calcium Carbonate 1,000 mg 10/04/21 15:38 10/04/21 16:04 Calcium Carbonate 500 Mg Tab.Chew PO 10/04/22 15:37 1,000 mg Q6H PRN Administration Dyspepsia Chlorhexidine Gluconate 15 ml 10/01/21 09:00 10/05/21 08:31 Chlorhexidine Gluconate 0.12% 15 Ml Udc MUCOUS MEM 10/01/22 08:59 Not Given BID PAULINO Clopidogrel Bisulfate 75 mg 09/28/21 09:00 10/05/21 08:31 Clopidogrel Bisulfate 75 Mg Tablet PO 09/28/22 08:59 75 mg DAILY PAULINO Administration Cyclobenzaprine HCl 10 mg 09/27/21 14:43 10/04/21 21:21 Cyclobenzaprine 10 Mg Tablet PO 09/27/22 14:42 10 mg QHS PRN Administration Muscle Spasm Dextrose 0 gm 09/27/21 14:45 10/02/21 17:26 Dextrose 50% In Water 25 Gm/50 Ml Syringe IV-PUSH 09/27/22 14:44 25 gm PRN PRN Administration Hypoglycemia Docusate Sodium 200 mg 09/27/21 14:45 Docusate 100 Mg Capsule PO 09/27/22 14:44 BID PRN Constipation Enoxaparin Sodium 40 mg 09/28/21 10:00 10/05/21 09:26 Enoxaparin 40 Mg/0.4 Ml Syringe SUBCUT 09/28/22 09:59 40 mg DAILY@1000 PAULINO Administration Fluticasone Propionate 1 spray 10/01/21 06:38 Fluticasone Propionate Greenbush 120 Greenbush/16 Gm Bottle INTRANASAL 10/01/22 06:37 QHS PRN Nasal Congestion Gabapentin 800 mg 09/27/21 18:00 10/05/21 13:30 Gabapentin 800 Mg Tablet PO 09/27/22 17:59 800 mg QID PAULINO Administration Glimepiride 4 mg 10/01/21 09:00 10/05/21 08:32 Glimepiride 4 Mg Tablet PO 10/01/22 08:59 4 mg QAM PAULINO Administration Glucose 0 gm 09/27/21 14:45 Dextrose 40% Gel 15 Gm Tube PO 09/27/22 14:44 PRN PRN Hypoglycemia Hydralazine HCl 10 mg 09/27/21 14:45 Hydralazine 20 Mg/Ml Vial IV-PUSH 09/27/22 14:44 Q4H PRN if SBP > 185 Ceftriaxone Sodium 2 gm in 50 mls @ 100 mls/hr 09/30/21 17:45 10/04/21 21:20 Rocephin IV 100 mls/hr Q24H PAULINO Administration Insulin Aspart 0 units 09/27/21 17:00 10/05/21 11:34 Insulin Aspart 300 Units/3 Ml Insuln.Pen SUBCUT 09/27/22 16:59 Not Given TID.WM.HS [facility] Protocol Levothyroxine Sodium 125 mcg 09/28/21 06:30 10/05/21 06:20 Levothyroxine 125 Mcg Tablet PO 09/28/22 06:29 125 mcg DAILY@0630 PAULINO Administration Losartan Potassium 50 mg 09/28/21 09:00 10/04/21 09:09 Losartan 50 Mg Tablet PO 09/28/22 08:59 50 mg QAM PAULINO Administration Meclizine HCl 25 mg 10/01/21 06:38 Meclizine 25 Mg Tablet PO 10/01/22 06:37 QHS PRN Vertigo Metoprolol Succinate 50 mg 09/28/21 09:00 10/05/21 08:31 Metoprolol Succinate 50 Mg Tab.Er.24h PO 09/28/22 08:59 50 mg DAILY PAULINO Administration Naproxen 500 mg 10/01/21 09:00 10/05/21 08:31 Naproxen 500 Mg Tablet PO 10/01/22 08:59 500 mg BID PAULINO Administration Nystatin 1 applic 10/01/21 08:15 Nystatin 100,000 Unit/Gm Oint 30 Gm Tube TOPICAL 10/01/22 08:14 TID PRN rash Ondansetron HCl 4 mg 09/27/21 14:45 Ondansetron 4 Mg/2 Ml Vial IV-PUSH 09/27/22 14:44 Q6H PRN Nausea And Vomiting Oxycodone/Acetaminophen 2 tab 10/03/21 18:27 10/05/21 12:03 Oxycodone/Acetaminophen 5-325 Mg Tablet PO 2 tab Q6H PRN Administration Pain Sodium Chloride 0 ml 09/27/21 12:00 09/29/21 05:55 Sodium Chloride 0.9 % 10 Ml Syringe IV-PUSH 09/27/22 11:59 10 ml PRN PRN Administration Flush A&P - Hospitalist Assessment/Plan (1) Diabetic infection of left foot: (2) PVD (peripheral vascular disease): (3) Post-operative state: (4) Hematoma: Plan Patient denies any new complaints Hematoma on the right thigh improving Leukocytosis improving Vascular surgery on board, patient is agreeable for bypass surgery which will probably be done early next week Wound culture positive for strep agalactiae, on appropriate antibiotic Podiatry on board, plan for toe amputation once vascular issues are taken care of Hold losartan due to low blood pressure, continue metoprolol succinate Encouraged patient on oral rehydration DVT prophylaxis CODE STATUS full Documented By: Clyde Luna MD 10/05/21 1413 Signed By: <Electronically signed by Clyde Luna MD> 10/05/21 1414 [facility] Work Phone: [phone] 127-388207-23-2022 Progress note Author AUTUMN Mehta [facility] October 04, 2021 3:32pm Note Date/Time October 04, 2021 3:32 pm [facility] [address] [place] [address] Podiatry Progress Note Signed Patient: Ema Neff MR#: [id number] : 1965 Acct:[id number] Age/Sex: 56 / F Adm Date: 2 Loc: Room: [address] [place] [address] Type : ADM IN Attending Dr: Clyde Luna MD Copies to: ~ Subjective Subjective Date of Service: Date of Service: 10/04/2021 Time of Service: 15:23 Narrative: Ms. Neff is a 56 year old female who my podiatric partner had followed for thepast 1 year due to issues related to diabetes, PVD and ulcerations. We switch call coverage as of yesterday. Patient is awaiting vascular surgeon return Wednesday for advancement for reconstructive surgery left lower extremity in a limbsalvage attempt. 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 She has a wound on the right forefoot that is stable and slowly healing. She developed gangrene in the left second toe and underwent partial toe amputation. The incision did have some dry gangrene, but this was healing well until she was taken off her blood thinners due to a thyroid surgery and she has noticed significant worsening. Patient has undergone attempted revascularization procedure on the left side. She did develop a postoperative complication of hematoma on the right thigh. She states currently that vascularis awaiting Dr. Mon's return for hopeful attempt at revascularization in the left foot for limb salvage. Patient denies fevers, chills, nausea, vomiting, sweats, diarrhea, chest pain, calf pain injuries or trauma to bilateral foot. Patient likes to do her own dressing changes as a nurses apparently do it too tight . She has been doing dressing changes for over a year obviously and understands the proper technique. Exam Physical Exam Vital Signs: Temp Pulse Resp BP Pulse Ox O2 Del Method O2 Flow Rate 97.5 F L 77 18 104/74 99 Room Air 2 10/04/21 12:00 10/04/21 12:00 10/04/21 12:00 10/04/21 12:00 10/04/21 12:00 10/04/21 12:00 10/02/21 09:00 FiO2 30 10/01/21 15:00 Narrative: Patient is awake alert and orient x3 resting comfortably in bed. Patient's malesignificant other//boyfriend is present at bedside. Dressings are intact bilaterally Vascular examination: Shows decreased pedal pulses bilaterally please see patient extensive vascular consultation and history including arteriograms and surgical interventions. Please note patient has waiting for early this coming week for revascularization left lower extremity with possible resection of partial fibula-per patient statement and per consultations note. Neurological examination: Shows peripheral neuropathy left lower extremity including motor, autonomic and sensory types-nonpainful. Muscle skeletal strength show significant muscle weakness to the toes bilaterally otherwise patient able dorsiflex plantarflex ankles and foot bilaterally however patient was not taken out of bed for muscle weightbearing, gait evaluation, gait analysis please note. Offloading: None: Patient was advised we will will place order in for offloadingof bilateral ankle, heel and feet. Patient understood the reasoning why offloading is imperative to prevent further skin breakdown. Orthopedic examination: Status post left second toe partial amputation: Now withgangrene and exposed bone of the proximal phalanx positive for clinical osteomyelitis. Dermatology: Skin is thin, dry, poorly hydrated, poor skin turgor, no pedal hairgrowth. No active signs of cellulitis in terms of my physical examination is appreciated. Left foot: Ulceration medial left foot around the first metatarsal region is mostly clean there is some nonviable skin and slough that could use excisional debridement, gangrene to the distal left fourth toe can also use excisional debridement though it is without sign of infection. The left second toe distal aspect the proximal phalanx is exposed positive for clinical osteomyelitis this from previous partial amputation of the distal, middle and head of the proximal phalanx left second toe. The bone is hard however there is nonviable tissue around this area that needs to be excised as well as removal of the proximal phalanx in toto. Right foot: Ulceration/surgical wound right forefoot status post amputation of toe is clean healthy and viable except for minimal nonviable yellow-white sloughthat could be sharply widely excisionally excised to aggressively advanced ulceration/amputation site healing. 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 Patient seen today for follow-up consultation. I discussed the patient's case prior to seeing the patient with her podiatric surgeon Dr. Ramirez, we are onthe same page as to what patient's status is bilaterally and form plan recommendation to proceed with second toe stump amputation further amputation atthe metatarsophalangeal joint level, after vascular surgery has been performed which should be performed early this coming week per patient statement and podiatric surgeon statement. 2. Dr. Mon, vascular surgeon will return Wednesday and early in the week deborah plan for revascularization left lower extremity possible fibular resection to be included. 3. Consult: Dietitian/nutrition: Patient has low albumin and total protein: This must be rectified to have any hopes of limb salvage in the near future. 4. Ulcer care: Maintain present wound care as prescribed. Patient performs herown dressing changes as nurse has informed me that the nurses do the dressings too tight . Patient has been doing dressing changes for over 1 year by herselfshe likes when she does them however if this is a legal concern-please contact nurse to inform the entire medical team of such. 5. Offloading: Order was written for offloading bilateral ankle, heel, feet- rolled up pillows behind ankle so that heels are suspended off of bed. Skin breakdown is a major concern and further risk that should be prevented. 6. Maintain other present medical, nutritional, offloading, antibiotics until further notice. 7. Thanks for consultation. I will reappoint after discussing patient's case Wednesday-after patient's revascularization please note. I informed patient of such there is no reason for me to see the patient tomorrow if she worsens at which point nursing staff should have be reconsulted to see the patient Wednesday. Code(s): L97.524 - Non-pressure chronic ulcer of other part of left foot with necrosis ofbone (2) Ulcer of right foot with fat layer exposed: Code(s): L97.512 - Non-pressure chronic ulcer of other part of right foot with fat layer exposed (3) Diabetic foot infection: Code(s): E11.628 - Type 2 diabetes mellitus with other skin complications; L08.9 - Local infection of the skin and subcutaneous tissue, unspecified (4) Diabetes mellitus with foot ulcer: Code(s): E11.621 - Type 2 diabetes mellitus with foot ulcer; L97.509 - Non-pressure chronic ulcer of other part of unspecified foot with unspecified severity (5) PVD (peripheral vascular disease): Code(s): I73.9 - Peripheral vascular disease, unspecified (6) Hypoalbuminemia due to protein-calorie malnutrition: Code(s): E88.09 - Other disorders of plasma-protein metabolism, not elsewhere classified;E46 - Unspecified protein-calorie malnutrition (7) Malnutrition: Code(s): E46 - Unspecified protein-calorie malnutrition Documented By: Kanu Mehta,TERESA, MS, AUTUMN 09/13 06/03 152 Signed By: <Electronically signed by TERESA MS AUTUMN Mehta> 10/04/21 1532 [facility] Work Phone: [phone] Progress note Author Clyde Luna [facility] October 04, 2021 3:05pm Note Date/Time October 04, 2021 3:03 pm [facility] [address] [place] [address] Hospitalist Progress Note Signed Patient: Ema Neff MR#: [id number] : 1965 Acct:[id number] Age/Sex: 56 / F Adm Date: 2 Loc: Room: 7J1092-3 Type : ADM IN Attending Dr: Clyde Luna MD Copies to: ~ Date of Service: 10/04/2021 Subjective Subjective Narrative: Patient seen and examined. She is comfortable at rest. Denies any new complaints. Patient is agreeable with bypass surgery and would like to get it done during this admission. Physical exam: General -awake, alert, oriented ?3, not in acute distress, walking in the room Cardiovascular -S1 with S2 Pulmonary - clear to auscultation bilaterally Gastrointestinal - abdomen is soft, nondistended, nontender, bowel sounds positive, there is no rigidity, no rebound Extremities -bilateral foot ulcerations, left foot unchanged Neurological -no focal neurological dysfunction noted Exam Physical Exam Vital Signs: Temp Pulse Resp BP Pulse Ox O2 Del Method O2 Flow Rate 97.5 F L 77 18 104/74 99 Room Air 2 10/04/21 12:00 10/04/21 12:00 10/04/21 12:00 10/04/21 12:00 10/04/21 12:00 10/04/21 12:00 10/02/21 09:00 FiO2 30 10/01/21 15:00 Objective Lab Results CBC & Chem 7: 10/04/21 05:49 10/02/21 06:00 Meds Allergies and Active Meds Allergies hydrocodone [From Vicodin] Allergy (Verified 09/27/21 12:00) Hallucinating Steroid Injection Allergy (Uncoded 09/26/21 20:11) Swelling Active Meds: Active Medications Generic Name Dose Route Start Last Admin Trade Name Freq PRN Reason Stop Dose Admin Acetaminophen 650 mg 09/27/21 14:45 Acetaminophen 325 Mg Tablet PO 09/27/22 14:44 Q4H PRN Pain Scale 1 - 5 Amitriptyline HCl 50 mg 09/27/21 22:00 10/03/21 21:37 Amitriptyline 50 Mg Tablet PO 09/27/22 21:59 50 mg HS PAULINO Administration Aspirin 81 mg 09/28/21 09:00 10/04/21 09:09 Aspirin 81 Mg Tablet.Dr PO 09/28/22 08:59 81 mg DAILY PAULINO Administration Atorvastatin Calcium 20 mg 09/27/21 22:00 10/03/21 21:37 Atorvastatin 20 Mg Tablet PO 09/27/22 21:59 20 mg QHS PAULINO Administration Chlorhexidine Gluconate 15 ml 10/01/21 09:00 10/04/21 09:09 Chlorhexidine Gluconate 0.12% 15 Ml Udc MUCOUS MEM 10/01/22 08:59 15 ml BID PAULINO Administration Clopidogrel Bisulfate 75 mg 09/28/21 09:00 10/04/21 09:09 Clopidogrel Bisulfate 75 Mg Tablet PO 09/28/22 08:59 75 mg DAILY PAULINO Administration Cyclobenzaprine HCl 10 mg 09/27/21 14:43 10/03/21 21:37 Cyclobenzaprine 10 Mg Tablet PO 09/27/22 14:42 10 mg QHS PRN Administration Muscle Spasm Dextrose 0 gm 09/27/21 14:45 10/02/21 17:26 Dextrose 50% In Water 25 Gm/50 Ml Syringe IV-PUSH 09/27/22 14:44 25 gm PRN PRN Administration Hypoglycemia Docusate Sodium 200 mg 09/27/21 14:45 Docusate 100 Mg Capsule PO 09/27/22 14:44 BID PRN Constipation Doxycycline Hyclate 100 mg 10/01/21 09:00 10/04/21 09:09 Doxycycline Hyclate 100 Mg Tablet PO 100 mg DAILY PAULINO Administration Enoxaparin Sodium 40 mg 09/28/21 10:00 10/04/21 09:09 Enoxaparin 40 Mg/0.4 Ml Syringe SUBCUT 09/28/22 09:59 40 mg DAILY@1000 PAULINO Administration Fluticasone Propionate 1 spray 10/01/21 06:38 Fluticasone Propionate Greenbush 120 Greenbush/16 Gm Bottle INTRANASAL 10/01/22 06:37 QHS PRN Nasal Congestion Gabapentin 800 mg 09/27/21 18:00 10/04/21 14:04 Gabapentin 800 Mg Tablet PO 09/27/22 17:59 800 mg QID PAULINO Administration Glimepiride 4 mg 10/01/21 09:00 10/04/21 09:09 Glimepiride 4 Mg Tablet PO 10/01/22 08:59 4 mg QAM PAULINO Administration Glucose 0 gm 09/27/21 14:45 Dextrose 40% Gel 15 Gm Tube PO 09/27/22 14:44 PRN PRN Hypoglycemia Hydralazine HCl 10 mg 09/27/21 14:45 Hydralazine 20 Mg/Ml Vial IV-PUSH 09/27/22 14:44 Q4H PRN if SBP > 185 Ceftriaxone Sodium 2 gm in 50 mls @ 100 mls/hr 09/30/21 17:45 10/03/21 21:37 Rocephin IV 100 mls/hr Q24H PAULINO Administration Sodium Chloride 500 mls @ 20 mls/hr 10/03/21 15:05 0.9 % Sodium Chloride IV 07/23/22 15:04 PROTOCOL PRN BLOOD TRANSFUSION Insulin Aspart 0 units 09/27/21 17:00 10/04/21 12:47 Insulin Aspart 300 Units/3 Ml Insuln.Pen SUBCUT 09/27/22 16:59 Not Given TID.WM.HS PAULINO Protocol Levothyroxine Sodium 125 mcg 09/28/21 06:30 10/04/21 06:26 Levothyroxine 125 Mcg Tablet PO 09/28/22 06:29 125 mcg DAILY@0630 PAULINO Administration Losartan Potassium 50 mg 09/28/21 09:00 10/04/21 09:09 Losartan 50 Mg Tablet PO 09/28/22 08:59 50 mg QAM PAULINO Administration Meclizine HCl 25 mg 10/01/21 06:38 Meclizine 25 Mg Tablet PO 10/01/22 06:37 QHS PRN Vertigo Metoprolol Succinate 50 mg 09/28/21 09:00 10/04/21 09:09 Metoprolol Succinate 50 Mg Tab.Er.24h PO 09/28/22 08:59 50 mg DAILY PAULINO Administration Naproxen 500 mg 10/01/21 09:00 10/04/21 09:09 Naproxen 500 Mg Tablet PO 10/01/22 08:59 500 mg BID PAULINO Administration Nystatin 1 applic 10/01/21 08:15 Nystatin 100,000 Unit/Gm Oint 30 Gm Tube TOPICAL 10/01/22 08:14 TID PRN rash Ondansetron HCl 4 mg 09/27/21 14:45 Ondansetron 4 Mg/2 Ml Vial IV-PUSH 09/27/22 14:44 Q6H PRN Nausea And Vomiting Oxycodone/Acetaminophen 2 tab 10/03/21 18:27 10/04/21 14:06 Oxycodone/Acetaminophen 5-325 Mg Tablet PO 2 tab Q6H PRN Administration Pain Sodium Chloride 0 ml 09/27/21 12:00 09/29/21 05:55 Sodium Chloride 0.9 % 10 Ml Syringe IV-PUSH 09/27/22 11:59 10 ml PRN PRN Administration Flush A&P - Hospitalist Assessment/Plan (1) Diabetic infection of left foot: (2) PVD (peripheral vascular disease): (3) Post-operative state: (4) Hematoma: Plan Patient denies any new complaints Hematoma on the right thigh improving Leukocytosis improving Vascular surgery on board, patient is agreeable for bypass surgery which will probably be done early next week Wound culture positive for strep agalactiae, on appropriate antibiotic Podiatry on board, plan for toe amputation once vascular issues are taken care of Hold losartan due to low blood pressure, continue metoprolol succinate Encouraged patient on oral rehydration DVT prophylaxis CODE STATUS full Documented By: Clyde Luna MD 10/04/21 1501 Signed By: <Electronically signed by Clyde Luna MD> 10/04/21 1505 [facility] Work Phone: 1(778) 229-463707-22-2022 Progress note Author Clyde Luna [facility] October 03, 2021 3:53pm Note Date/Time October 03, 2021 3:51 pm [facility] [address] [place] [address] Hospitalist Progress Note Signed Patient: Ema Neff MR#: [id number] : 1965 Acct:[id number] Age/Sex: 56 / F Adm Date: 2 Loc: Room: [address] [place] [address] Type : ADM IN Attending Dr: Clyde Luna MD Copies to: ~ Date of Service: 10/03/2021 Subjective Subjective Narrative: Patient seen and examined. She is comfortable at rest. Denies any new complaints. Vascular surgery did discuss with the patient regarding bypass and will probably plan early next week. Patient is agreeable with the plan. Physical exam: General -awake, alert, oriented ?3, not in acute distress, walking in the room Cardiovascular -S1 with S2 Pulmonary - clear to auscultation bilaterally Gastrointestinal - abdomen is soft, nondistended, nontender, bowel sounds positive, there is no rigidity, no rebound Extremities -bilateral foot ulcerations, left foot unchanged Neurological -no focal neurological dysfunction noted Exam Physical Exam Vital Signs: Temp Pulse Resp BP Pulse Ox O2 Del Method O2 Flow Rate 97.8 F 86 16 108/69 96 Room Air 2 10/03/21 15:39 10/03/21 15:39 10/03/21 15:39 10/03/21 15:39 10/03/21 15:39 10/03/21 15:39 10/02/21 09:00 FiO2 30 10/01/21 15:00 Objective Lab Results CBC & Chem 7: 10/03/21 09:55 10/02/21 06:00 Microbiology Results Microbiology 09/27/21 12:28 Blood - Right Antecubital Blood Culture - Final NO GROWTH 5 DAYS 09/27/21 12:32 Blood - Left Antecubital Blood Culture - Final NO GROWTH 5 DAYS Meds Allergies and Active Meds Allergies hydrocodone [From Vicodin] Allergy (Verified 09/27/21 12:00) Hallucinating Steroid Injection Allergy (Uncoded 09/26/21 20:11) Swelling Active Meds: Active Medications Generic Name Dose Route Start Last Admin Trade Name Freq PRN Reason Stop Dose Admin Acetaminophen 650 mg 09/27/21 14:45 Acetaminophen 325 Mg Tablet PO 09/27/22 14:44 Q4H PRN Pain Scale 1 - 5 Amitriptyline HCl 50 mg 09/27/21 22:00 10/02/21 21:37 Amitriptyline 50 Mg Tablet PO 09/27/22 21:59 50 mg HS PAULINO Administration Aspirin 81 mg 09/28/21 09:00 10/03/21 10:10 Aspirin 81 Mg Tablet. PO 09/28/22 08:59 81 mg DAILY PAULINO Administration Atorvastatin Calcium 20 mg 09/27/21 22:00 10/02/21 21:37 Atorvastatin 20 Mg Tablet PO 09/27/22 21:59 20 mg QHS PAULINO Administration Chlorhexidine Gluconate 15 ml 10/01/21 09:00 10/03/21 10:10 Chlorhexidine Gluconate 0.12% 15 Ml Udc MUCOUS MEM 10/01/22 08:59 Not Given BID PAULINO Clopidogrel Bisulfate 75 mg 09/28/21 09:00 10/03/21 10:10 Clopidogrel Bisulfate 75 Mg Tablet PO 09/28/22 08:59 75 mg DAILY PAULINO Administration Cyclobenzaprine HCl 10 mg 09/27/21 14:43 09/28/21 22:16 Cyclobenzaprine 10 Mg Tablet PO 09/27/22 14:42 10 mg QHS PRN Administration Muscle Spasm Dextrose 0 gm 09/27/21 14:45 10/02/21 17:26 Dextrose 50% In Water 25 Gm/50 Ml Syringe IV-PUSH 09/27/22 14:44 25 gm PRN PRN Administration Hypoglycemia Docusate Sodium 200 mg 09/27/21 14:45 Docusate 100 Mg Capsule PO 09/27/22 14:44 BID PRN Constipation Doxycycline Hyclate 100 mg 10/01/21 09:00 10/03/21 10:09 Doxycycline Hyclate 100 Mg Tablet PO 100 mg DAILY PAULINO Administration Enoxaparin Sodium 40 mg 09/28/21 10:00 10/03/21 10:10 Enoxaparin 40 Mg/0.4 Ml Syringe SUBCUT 09/28/22 09:59 40 mg DAILY@1000 PAULINO Administration Fluticasone Propionate 1 spray 10/01/21 06:38 Fluticasone Propionate Greenbush 120 Greenbush/16 Gm Bottle INTRANASAL 10/01/22 06:37 QHS PRN Nasal Congestion Gabapentin 800 mg 09/27/21 18:00 10/03/21 14:38 Gabapentin 800 Mg Tablet PO 09/27/22 17:59 800 mg QID PAULINO Administration Glimepiride 4 mg 10/01/21 09:00 10/03/21 10:10 Glimepiride 4 Mg Tablet PO 10/01/22 08:59 4 mg QAM PAULINO Administration Glucose 0 gm 09/27/21 14:45 Dextrose 40% Gel 15 Gm Tube PO 09/27/22 14:44 PRN PRN Hypoglycemia Hydralazine HCl 10 mg 09/27/21 14:45 Hydralazine 20 Mg/Ml Vial IV-PUSH 09/27/22 14:44 Q4H PRN if SBP > 185 Ceftriaxone Sodium 2 gm in 50 mls @ 100 mls/hr 09/30/21 17:45 10/02/21 22:08 Rocephin IV 100 mls/hr Q24H PAULINO Administration Sodium Chloride 1,000 mls @ 125 mls/hr 10/01/21 15:45 10/03/21 07:25 0.9% Sodium Chloride 1,000 Ml IV 10/01/22 15:44 125 mls/hr .Q8H PAULINO Administration Sodium Chloride 500 mls @ 20 mls/hr 10/03/21 15:05 0.9 % Sodium Chloride IV 10/04/21 15:04 PROTOCOL PRN BLOOD TRANSFUSION Insulin Aspart 0 units 09/27/21 17:00 10/03/21 11:43 Insulin Aspart 300 Units/3 Ml Insuln.Pen SUBCUT 09/27/22 16:59 Not Given TID.WM.HS [facility] Protocol Levothyroxine Sodium 125 mcg 09/28/21 06:30 10/03/21 06:01 Levothyroxine 125 Mcg Tablet PO 09/28/22 06:29 125 mcg DAILY@0630 PAULINO Administration Losartan Potassium 50 mg 09/28/21 09:00 10/03/21 13:44 Losartan 50 Mg Tablet PO 09/28/22 08:59 Not Given QAM PAULINO Meclizine HCl 25 mg 10/01/21 06:38 Meclizine 25 Mg Tablet PO 10/01/22 06:37 QHS PRN Vertigo Metoprolol Succinate 50 mg 09/28/21 09:00 10/03/21 10:10 Metoprolol Succinate 50 Mg Tab.Er.24h PO 09/28/22 08:59 50 mg DAILY PAULINO Administration Naproxen 500 mg 10/01/21 09:00 10/03/21 10:09 Naproxen 500 Mg Tablet PO 10/01/22 08:59 500 mg BID PAULINO Administration Nystatin 1 applic 10/01/21 08:15 Nystatin 100,000 Unit/Gm Oint 30 Gm Tube TOPICAL 10/01/22 08:14 TID PRN rash Ondansetron HCl 4 mg 09/27/21 14:45 Ondansetron 4 Mg/2 Ml Vial IV-PUSH 09/27/22 14:44 Q6H PRN Nausea And Vomiting Sodium Chloride 0 ml 09/27/21 12:00 09/29/21 05:55 Sodium Chloride 0.9 % 10 Ml Syringe IV-PUSH 09/27/22 11:59 10 ml PRN PRN Administration Flush A&P - Hospitalist Assessment/Plan (1) Diabetic infection of left foot: (2) PVD (peripheral vascular disease): (3) Post-operative state: (4) Hematoma: Plan Patient denies any new complaints Hematoma on the right thigh improving Leukocytosis improving Vascular surgery on board, contemplating on bypass surgery however will not be able to do as operating schedule is busy Wound culture positive for strep agalactiae, on appropriate antibiotic Podiatry on board, plan for toe amputation once vascular issues are taken care of Continue IV fluids as patient is still hypotensive DVT prophylaxis CODE STATUS full Documented By: Clyde Luna MD 10/03/21 8830 Signed By: <Electronically signed by Clyde Luna MD> 10/03/21 1553 [facility] Work Phone: [phone]) 484-593107-22-2022 Progress note Author Karsten Vega [facility] October 03, 2021 2:17pm Note Date/Time October 03, 2021 2:17 pm [facility] [address] [place] [address] Vascular Surgery Progress Note Signed Patient: Ema Neff MR#: [id number] : 1965 Acct:[id number] Age/Sex: 56 / F Adm Date: 2 Loc: Room: [address] [place] [address] Type : ADM IN Attending Dr: Clyde Luna MD Copies to: ~ Date of Service: 10/03/2021 Subjective Subjective Interval history: No change at this time. She has been out of bed walking Exam Physical Exam Vital Signs: Temp Pulse Resp BP Pulse Ox O2 Del Method O2 Flow Rate 98.2 F 93 H 18 98/65 L 97 Room Air 2 10/03/21 11:37 10/03/21 11:37 10/03/21 11:37 10/03/21 11:37 10/03/21 11:37 10/03/21 11:37 10/02/21 09:00 FiO2 30 10/01/21 15:00 Narrative: Hematoma the right leg is as expected at this time. Both feet are stable. Objective Labs CBC & Chem 7: 10/03/21 09:55 10/02/21 06:00 Other Labs: Laboratory Results - last 24 hr 10/02/21 10/02/21 10/02/21 16:29 17:21 18:08 Corrected WBC Uncorrected WBC Count RBC Hgb Hct MCV MCH MCHC RDW Plt Count MPV Neut % (Auto) Lymph % (Auto) [place] % (Auto) Eos % (Auto) Baso % (Auto) Neut # (Auto) Lymph # (Auto) [place] # (Auto) Eos # (Auto) Baso # (Auto) Nucleated RBC % (auto) POC Glucose 68 68 117 POC Glucose Comment Triglycerides 10/03/21 10/03/21 10/03/21 06:19 07:40 09:55 Corrected WBC 14.4 H Uncorrected WBC Count 14.4 H RBC 2.44 L Hgb 7.5 L Hct 22.6 L MCV 92.5 MCH 30.8 MCHC 33.2 RDW 18.3 H Plt Count 222 MPV 7.7 Neut % (Auto) 71.9 Lymph % (Auto) 18.5 [place] % (Auto) 6.6 Eos % (Auto) 2.4 Baso % (Auto) 0.6 Neut # (Auto) 10.4 H Lymph # (Auto) 2.7 [place] # (Auto) 1.0 H Eos # (Auto) 0.3 Baso # (Auto) 0.1 Nucleated RBC % (auto) 0.0 POC Glucose 111 POC Glucose Comment Glu2: cleaned meter Triglycerides 99 10/03/21 11:40 Corrected WBC Uncorrected WBC Count RBC Hgb Hct MCV MCH MCHC RDW Plt Count MPV Neut % (Auto) Lymph % (Auto) [place] % (Auto) Eos % (Auto) Baso % (Auto) Neut # (Auto) Lymph # (Auto) [place] # (Auto) Eos # (Auto) Baso # (Auto) Nucleated RBC % (auto) POC Glucose 134 POC Glucose Comment Glu2: cleaned meter Triglycerides Microbiology Microbiology: Microbiology - Results from entire visit 09/27/21 12:28 Blood - Right Antecubital Blood Culture - Final NO GROWTH 5 DAYS 09/27/21 12:32 Blood - Left Antecubital Blood Culture - Final NO GROWTH 5 DAYS 09/27/21 13:54 Toe,Left Second - Drainage Superficial Wound Culture - Final Strep. agalactiae Grp B 09/27/21 13:54 Nasal SARS Antigen (LFIA) - Final A&P - Vascular Assessment/Plan (1) Peripheral vascular occlusive disease: I took the patient to the computer today and reviewed her angiography with her. Targets for potential revascularization include the mid to distal peroneal artery which could be approached by resection of the fibula. The plantar arteryis potentially usable but is quite small. She does have adequate vein for theseprocedures I believe. Choices at this time include a trial of healing with amputation of the toes that are involved or proceeding to bypass, or primary below-knee amputation which is not warranted at this time. If she is to have a bypass it would not be until next week. Code(s): I73.9 - Peripheral vascular disease, unspecified Status: Acute Documented By: Karsten Vega MD 10/03/21 141 4 Signed By: <Electronically signed by MD Karsten Vega> 10/03/21 1417 [facility] Work Phone: [phone] 171-606907-22-2022 Progress note Author Chichi Ramirez [facility] October 03, 2021 1:01pm Note Date/Time October 03, 2021 1:01 pm [facility] [address] [place] [address] Podiatry Progress Note Signed Patient: Ema Neff MR#: [id number] : 1965 Acct:[id number] Age/Sex: 56 / F Adm Date: 2 Loc: Room: [address] [place] [address] Type : ADM IN Attending Dr: Clyde Luna MD Copies to: ~ Subjective Subjective Date of Service: Date of Service: 10/03/2021 Time of Service: 12:58 Narrative: Ms. Neff is a 56 year old female who I have followed for the past 1 year due to issues related to diabetes, PVD and ulcerations. 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 She has awound on the right foot that is stable and slowly healing. She developed gangrene in the left second toe and underwent partial toe amputation. The incision did have some dry gangrene, but this was healing well until she was taken off her blood thinners due to a thyroid surgery and she has noticed significant worsening. patient has undergone attempted revascularization procedure on the left side. She did develop a postoperative complication of hematoma on the right thigh. She states currently that vascular is awaiting 's return for hopeful attempt at revascularization in the left foot for limb salvage. No other complaints. Exam Physical Exam Vital Signs: Temp Pulse Resp BP Pulse Ox O2 Del Method O2 Flow Rate 98.2 F 93 H 18 98/65 L 97 Room Air 2 10/03/21 11:37 10/03/21 11:37 10/03/21 11:37 10/03/21 11:37 10/03/21 11:37 10/03/21 11:37 10/02/21 09:00 FiO2 30 10/01/21 15:00 Narrative: General: Patient is seen at bedside and is awake and aware and in no acute distress. Vascular: DP and PT pulses are nonpalpable to the bilateral lower extremity. There is a significant amount of areas of erythema to the left foot along the ulceration site and toes consistent with PVD. Neurology: Patient has known diabetic peripheral and autonomic neuropathy. Dermatology: Patient has a healthy and healing wound noted to the right second toe amputation site. Majority of the base of this wound is granular and this does appear to be closing compared to prior outpatient follow-up. New evidence of proximal gangrene to the left second toe amputation site with exposed bone along the central aspect of the opening. This has worsened in regards to the presence of eschar/gangrene and exposed bone from a prior outpatient follow-up. Patient also has a new wound along the medial aspect of the left foot measuring approximately 2 cm x 1 cm with fibrotic tissue base and surrounding erythema. There are also new gangrenous lesions to the medial aspect of the left hallux, lateral aspect of the left third digit, medial aspect of the left fourth digit and distal aspect of the left fourth digit which are new from prior examination concerning for circulation changes to the left foot. areas of gangrene and thatwound to the left foot is stable there is no significant evidence of worsening in regards to the gangrene or new areas of tissue loss to the left foot Orthopedic: Patient has a significant amount of pain related to the left second toe amputation site and ulceration along the medial aspect of the left foot. 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 They are planning on additional endovascular repair. At this point in time since the left foot appears stable and there is no significant worsening in regards to the gangrene I would recommend awaiting further surgery or amputation to the left second toe until her vascular status is improved. I would be concerned about proceeding with amputation is likely that the patient would have problems with wound healing complications due to thedecreased circulation. Patient was advised to continue with offloading and dressing changes that are ordered. She will continue to follow this patient andwell developed a final plan of care once her revascularization procedures are completed. I did discuss this case with Dr. Mehta who is starting call and he will continue to follow the patient. Code(s): L97.524 - Non-pressure chronic ulcer of other part of left foot with necrosis ofbone (2) Ulcer of right foot with fat layer exposed: Code(s): L97.512 - Non-pressure chronic ulcer of other part of right foot with fat layer exposed (3) Diabetic foot infection: Code(s): E11.628 - Type 2 diabetes mellitus with other skin complications; L08.9 - Local infection of the skin and subcutaneous tissue, unspecified (4) Diabetes mellitus with foot ulcer: Code(s): E11.621 - Type 2 diabetes mellitus with foot ulcer; L97.509 - Non-pressure chronic ulcer of other part of unspecified foot with unspecified severity (5) PVD (peripheral vascular disease): Code(s): I73.9 - Peripheral vascular disease, unspecified Documented By: Chichi Ramirez DPM 10/03/21 12 58 Signed By: <Electronically signed by TERESA Ramirez> 10/03/21 1301 [facility] Work Phone: 1([phone]) 326-263107-21-2022 Progress note Author Clyde Luna [facility] October 02, 2021 4:03pm Note Date/Time October 02, 2021 4:03 pm [facility] [address] [place] [address] Hospitalist Progress Note Signed Patient: Ema Neff MR#: [id number] : 1965 Acct:[id number] Age/Sex: 56 / F Adm Date: 2 Loc: Room: [address] [place] [address] Type : ADM IN Attending Dr: Clyde Luna MD Copies to: ~ Date of Service: 10/02/2021 Subjective Subjective Narrative: Patient seen and examined. She is awake, alert and oriented x3. No acute overnight events per RN. Patient has been using IV opioids rather regularly, educated her on using IV pain medications judiciously, she verbalized understanding. She is otherwise hemodynamically stable and afebrile. Physical exam: General -awake, alert, oriented ?3, not in acute distress, walking in the room Cardiovascular -S1 with S2 Pulmonary - clear to auscultation bilaterally Gastrointestinal - abdomen is soft, nondistended, nontender, bowel sounds positive, there is no rigidity, no rebound Extremities -bilateral foot ulcerations, left foot unchanged Neurological -no focal neurological dysfunction noted Exam Physical Exam Vital Signs: Temp Pulse Resp BP Pulse Ox O2 Del Method O2 Flow Rate 98.2 F 105 H 15 126/61 96 Room Air 2 10/02/21 12:00 10/02/21 15:00 10/02/21 15:00 10/02/21 15:00 10/02/21 15:00 10/02/21 15:00 10/02/21 09:00 FiO2 30 10/01/21 15:00 Objective Lab Results CBC & Chem 7: 10/02/21 06:00 10/02/21 06:00 Microbiology Results Microbiology 09/27/21 12:28 Blood - Right Antecubital Blood Culture - Final NO GROWTH 5 DAYS 09/27/21 12:32 Blood - Left Antecubital Blood Culture - Final NO GROWTH 5 DAYS Meds Allergies and Active Meds Allergies hydrocodone [From Vicodin] Allergy (Verified 09/27/21 12:00) Hallucinating Steroid Injection Allergy (Uncoded 09/26/21 20:11) Swelling Active Meds: Active Medications Generic Name Dose Route Start Last Admin Trade Name Freq PRN Reason Stop Dose Admin Acetaminophen 650 mg 09/27/21 14:45 Acetaminophen 325 Mg Tablet PO 09/27/22 14:44 Q4H PRN Pain Scale 1 - 5 Amitriptyline HCl 50 mg 09/27/21 22:00 10/01/21 21:10 Amitriptyline 50 Mg Tablet PO 09/27/22 21:59 50 mg HS PAULINO Administration Aspirin 81 mg 09/28/21 09:00 10/02/21 13:59 Aspirin 81 Mg Tablet. PO 09/28/22 08:59 81 mg DAILY PAULNIO Administration Atorvastatin Calcium 20 mg 09/27/21 22:00 10/01/21 21:10 Atorvastatin 20 Mg Tablet PO 09/27/22 21:59 20 mg QHS PAULINO Administration Chlorhexidine Gluconate 15 ml 10/01/21 09:00 10/02/21 08:26 Chlorhexidine Gluconate 0.12% 15 Ml Udc MUCOUS MEM 10/01/22 08:59 Not Given BID PAULINO Clopidogrel Bisulfate 75 mg 09/28/21 09:00 10/02/21 13:59 Clopidogrel Bisulfate 75 Mg Tablet PO 09/28/22 08:59 75 mg DAILY PAULINO Administration Cyclobenzaprine HCl 10 mg 09/27/21 14:43 09/28/21 22:16 Cyclobenzaprine 10 Mg Tablet PO 09/27/22 14:42 10 mg QHS PRN Administration Muscle Spasm Dextrose 0 gm 09/27/21 14:45 Dextrose 50% In Water 25 Gm/50 Ml Syringe IV-PUSH 09/27/22 14:44 PRN PRN Hypoglycemia Docusate Sodium 200 mg 09/27/21 14:45 Docusate 100 Mg Capsule PO 09/27/22 14:44 BID PRN Constipation Doxycycline Hyclate 100 mg 10/01/21 09:00 10/02/21 08:12 Doxycycline Hyclate 100 Mg Tablet PO 100 mg DAILY PAULINO Administration Enoxaparin Sodium 40 mg 09/28/21 10:00 10/02/21 11:17 Enoxaparin 40 Mg/0.4 Ml Syringe SUBCUT 09/28/22 09:59 40 mg DAILY@1000 PAULINO Administration Fluticasone Propionate 1 spray 10/01/21 06:38 Fluticasone Propionate [place] 120 [place]/16 Gm Bottle INTRANASAL 10/01/22 06:37 QHS PRN Nasal Congestion Gabapentin 800 mg 09/27/21 18:00 10/02/21 13:59 Gabapentin 800 Mg Tablet PO 09/27/22 17:59 800 mg QID PAULINO Administration Glimepiride 4 mg 10/01/21 09:00 10/02/21 08:11 Glimepiride 4 Mg Tablet PO 10/01/22 08:59 4 mg QAM PAULINO Administration Glucose 0 gm 09/27/21 14:45 Dextrose 40% Gel 15 Gm Tube PO 09/27/22 14:44 PRN PRN Hypoglycemia Hydralazine HCl 10 mg 09/27/21 14:45 Hydralazine 20 Mg/Ml Vial IV-PUSH 09/27/22 14:44 Q4H PRN if SBP > 185 Hydromorphone HCl 1 mg 09/30/21 17:58 10/02/21 11:16 Hydromorphone 1 Mg/Ml Syringe IV-PUSH 1 mg Q2H PRN Administration Pain Lactated Ringer's 1,000 mls @ 20 mls/hr 09/30/21 10:15 10/01/21 19:30 Lactated Ringers IV 09/30/22 10:14 Infused .Q24H PAULINO Infusion Ceftriaxone Sodium 2 gm in 50 mls @ 100 mls/hr 09/30/21 17:45 10/01/21 22:00 Rocephin IV Infused Q24H PAULINO Infusion Sodium Chloride 1,000 mls @ 125 mls/hr 10/01/21 15:45 10/02/21 13:59 0.9% Sodium Chloride 1,000 Ml IV 10/01/22 15:44 125 mls/hr .Q8H PAULINO Administration Insulin Aspart 0 units 09/27/21 17:00 10/02/21 12:29 Insulin Aspart 300 Units/3 Ml Insuln.Pen SUBCUT 09/27/22 16:59 Not Given TID.[facility] Protocol Levothyroxine Sodium 125 mcg 09/28/21 06:30 10/02/21 08:27 Levothyroxine 125 Mcg Tablet PO 09/28/22 06:29 Not Given DAILY@0630 PAULINO Losartan Potassium 50 mg 09/28/21 09:00 10/02/21 08:11 Losartan 50 Mg Tablet PO 09/28/22 08:59 50 mg QAM PAULINO Administration Meclizine HCl 25 mg 10/01/21 06:38 Meclizine 25 Mg Tablet PO 10/01/22 06:37 QHS PRN Vertigo Metoprolol Succinate 50 mg 09/28/21 09:00 10/02/21 08:12 Metoprolol Succinate 50 Mg Tab.Er.24h PO 09/28/22 08:59 50 mg DAILY PAULINO Administration Naproxen 500 mg 10/01/21 09:00 10/02/21 08:12 Naproxen 500 Mg Tablet PO 10/01/22 08:59 500 mg BID PAULINO Administration Nystatin 1 applic 10/01/21 08:15 Nystatin 100,000 Unit/Gm Oint 30 Gm Tube TOPICAL 10/01/22 08:14 TID PRN rash Ondansetron HCl 4 mg 09/27/21 14:45 Ondansetron 4 Mg/2 Ml Vial IV-PUSH 09/27/22 14:44 Q6H PRN Nausea And Vomiting Oxycodone HCl 10 mg 09/30/21 17:57 10/02/21 13:59 Oxycodone Ir 5 Mg Tablet PO 10 mg Q4HR PRN Administration Pain Sodium Chloride 0 ml 09/27/21 12:00 09/29/21 05:55 Sodium Chloride 0.9 % 10 Ml Syringe IV-PUSH 09/27/22 11:59 10 ml PRN PRN Administration Flush A&P - Hospitalist Assessment/Plan (1) Diabetic infection of left foot: (2) PVD (peripheral vascular disease): (3) Post-operative state: (4) Hematoma: Plan Patient has been extubated yesterday. She is currently saturating well on room air and is hemodynamically stable Hematoma on the right thigh has improved since yesterday Leukocytosis improving Vascular surgery on board, contemplating on bypass surgery however will not be able to do as operating schedule is busy Wound culture positive for strep agalactiae Continue antibiotics Podiatry on board, appreciate their recommendations Plan for extubation today DVT prophylaxis CODE STATUS full Documented By: Clyde Luna MD 10/02/21 1558 Signed By: <Electronically signed by Clyde Luna MD> 10/02/21 4574 [facility] Work Phone: [phone]) 464-384907-21-2022 Progress note Author Karsten Vega [facility] October 02, 2021 3:28pm Note Date/Time October 02, 2021 3:28 pm [facility] [address] [place] [address] Vascular Surgery Progress Note Signed Patient: Ema Neff MR#: [id number] : 1965 Acct:[id number] Age/Sex: 56 / F Adm Date: 2 Loc: Room: [address] [place] [address] Type : ADM IN Attending Dr: Clyde Luna MD Copies to: ~ Date of Service: 10/02/2021 Subjective Subjective Interval history: She is stable at this time with some discomfort in her thigh. Exam Physical Exam Vital Signs: Temp Pulse Resp BP Pulse Ox O2 Del Method O2 Flow Rate 98.2 F 105 H 15 126/61 96 Room Air 2 10/02/21 12:00 10/02/21 15:00 10/02/21 15:00 10/02/21 15:00 10/02/21 15:00 10/02/21 15:00 10/02/21 09:00 FiO2 30 10/01/21 15:00 Narrative: Large hematoma in the right thigh but no evidence of skin necrosis. Feet are unchanged. Objective Labs CBC & Chem 7: 10/02/21 06:00 10/02/21 06:00 Other Labs: Laboratory Results - last 24 hr 10/01/21 10/01/21 10/02/21 17:53 21:14 06:00 Corrected WBC 18.5 H Uncorrected WBC Count 18.5 H RBC 3.04 L Hgb 9.3 L Hct 28.2 L MCV 92.6 MCH 30.5 MCHC 33.0 RDW 18.9 H Plt Count 204 MPV 7.7 Neut % (Auto) 73.4 Lymph % (Auto) 19.3 [place] % (Auto) 6.2 Eos % (Auto) 0.7 Baso % (Auto) 0.4 Neut # (Auto) 13.6 H Lymph # (Auto) 3.6 [place] # (Auto) 1.1 H Eos # (Auto) 0.1 Baso # (Auto) 0.1 Nucleated RBC % (auto) 0.1 PHA Creatinine Clear Sodium Potassium Chloride Carbon Dioxide BUN Creatinine Est GFR ( Amer) Est GFR (Non-Af Amer) Glucose POC Glucose 132 181 POC Glucose Comment Glu2: cleaned meter Calcium Magnesium 10/02/21 10/02/21 10/02/21 06:00 07:34 11:07 Corrected WBC Uncorrected WBC Count RBC Hgb Hct MCV MCH MCHC RDW Plt Count MPV Neut % (Auto) Lymph % (Auto) [place] % (Auto) Eos % (Auto) Baso % (Auto) Neut # (Auto) Lymph # (Auto) [place] # (Auto) Eos # (Auto) Baso # (Auto) Nucleated RBC % (auto) PHA Creatinine Clear 89.53 Sodium 139 Potassium 3.6 Chloride 113 Carbon Dioxide 23.0 BUN 9 Creatinine 0.92 Est GFR ( Amer) > 60 Est GFR (Non-Af Amer) > 60 Glucose 128 H POC Glucose 98 134 POC Glucose Comment Calcium 6.8 L Magnesium 1.6 Microbiology Microbiology: Microbiology - Results from entire visit 09/27/21 12:28 Blood - Right Antecubital Blood Culture - Final NO GROWTH 5 DAYS 09/27/21 12:32 Blood - Left Antecubital Blood Culture - Final NO GROWTH 5 DAYS 09/27/21 13:54 Toe,Left Second - Drainage Superficial Wound Culture - Final Strep. agalactiae Grp B 09/27/21 13:54 Nasal SARS Antigen (LFIA) - Final A&P - Vascular Assessment/Plan (1) Peripheral vascular occlusive disease: Reviewing her diagnostic arteriogram from her prior interventions I do not believe further efforts at endovascular intervention are worthwhile for her. She does have 2 potential targets for bypass including the distal one third of the peroneal artery and the deep plantar artery. These are small targets but are potentially usable. Her ultrasound suggest there is vein at least in the thigh that would be usable as a conduit. I spoke with her about this. We will review it again tomorrow. There will not be time on the operating schedule for this to occur this week. Code(s): I73.9 - Peripheral vascular disease, unspecified Status: Acute Documented By: Karsten Vega MD 10/02/21 152 6 Signed By: <Electronically signed by MD Karsten Vega> 10/02/21 1528 [facility] Work Phone: [phone] 838-941507-20-2022 Consult note Author Sai Marx [facility] October 01, 2021 2:52pm Note Date/Time October 01, 2021 2:52 pm [facility] [address] [place] [address] Pulmonology Consult Note Signed Patient: Ema Neff MR#: [id number] : 1965 Acct:[id number] Age/Sex: 56 / F Adm Date: 2 Loc: Room: [address] [place] [address] Type : ADM IN Attending Dr: Clyde Luna MD Copies to: MD Sai Guzmán MD Robert L Hill, MD~ HPI Date/Time of Consultation: Date of Service: 10/01/2021 Time of Service: 14:45 Consulting Provider: Sai Marx Requesting Provider: Clyde Luna History of Present Illness History of present illness: Ms. Neff is a 56 year old female with past medical history significant for peripheral vascular disease with multiple prior interventions, hypertension, hyperlipidemia, diabetes, nicotine dependence, and obesity who presented to the emergency room on the of this month for worsening left foot wound. Patienthas history of amputation of second toe on the left side March this year. Shewas found to have an ulcer on the medial aspect of left foot and wound of secondresidual to with exposed bone. She underwent angiogram this admission. Last evening, patient became hypotensive, found to have large right groin hematoma. She was taken to the OR last night and no intervention performed as per report. She was kept intubated. Patient is currently intubated on mechanical ventilation, sedated with propofol,unable to provide any history or review of systems. [facility] Vaccinated for [facility]-19?: Yes Medical History Arthritis Back pain Bronchitis Cellulitis DDD (degenerative disc disease) Diabetes Diabetes mellitus, type 2 Difficulty swallowing per pt since dx with thyroid problems DJD (degenerative joint disease) Eczema GERD (gastroesophageal reflux disease) since being dx with thyroid problems Gout History of amputation of toe History of CVA in adulthood rt sided weakness Hyperlipidemia Hypertension Hyperthyroidism Menopause Neuropathy Osteoporosis Sleep apnea no machine Smoker quit 03/2021 Tachycardia Ulcerative colitis Surgical History History of carpal tunnel surgery of right wrist History of cholecystectomy History of endometrial ablation History of surgery on wrist carpal tunnel and ulnar nerve rt arm; carpal tunnel left History of tonsillectomy History of tubal ligation Hx of angioplasty bilateral legs x2, 2 stents on R Hx of cataract surgery bilateral S/P angioplasty with stent rt leg Family History Father Bladder cancer Prostate cancer Diabetes Mother H/O blood clots Social History Smoking Status: Former smoker Tobacco Type: cigarettes Substance Use Type: None Social History Comments: Patient is . She resides with her spouse. She uses no DME. She is on disability due to chronic low back pain which she feels is from a work injury. Meds Medications and Allergies Allergies hydrocodone [From Vicodin] Allergy (Verified 09/27/21 12:00) Hallucinating Steroid Injection Allergy (Uncoded 09/26/21 20:11) Swelling Home Medications losartan 50 mg tablet 50 mg PO QAM htn 11/02/17 [History Confirmed 09/27/21] fluticasone propionate 50 mcg/actuation nasal spray,suspension (Flonase Allergy Relief) 1 spray intranasal QHS PRN Nasal Congestion 03/06/18 [History Confirmed 09/27/21] amitriptyline 25 mg tablet 50 mg PO HS insomnia 01/21/21 [History Confirmed 09/27/21] gabapentin 800 mg tablet 800 mg PO QID neuropathy 01/21/21 [History Confirmed 09/27/21] glimepiride 4 mg tablet 4 mg PO QAM diabetes 01/21/21 [History Confirmed 09/27/21] meloxicam 15 mg tablet 15 mg PO DAILY arthritis 01/21/21 [History Confirmed 09/27/21] meclizine 25 mg tablet 25 mg PO QHS PRN Vertigo 02/12/21 [History Confirmed 09/27/21] nystatin 100,000 unit/gram topical ointment 1 applic topical TID PRN rash 03/10/21 [History Confirmed 09/27/21] aspirin 81 mg tablet,delayed release 81 mg PO DAILY PVD 05/02/21 [History Confirmed 09/27/21] atorvastatin 20 mg tablet (Lipitor) 20 mg PO QHS hyperlipidemia 05/02/21 [History Confirmed 09/27/21] clopidogrel 75 mg tablet 75 mg PO DAILY PVD 05/02/21 [History Confirmed 09/27/21] cyclobenzaprine 5 mg tablet 10 mg PO QHS PRN Muscle Spasm 05/02/21 [History Confirmed 09/27/21] metoprolol succinate 25 mg tablet,extended release 24 hr 50 mg PO DAILY tachycardia/overactive thyroid 05/02/21 [History Confirmed 09/28/21] doxycycline hyclate 100 mg tablet 100 mg PO DAILY 09/27/21 [History Confirmed 09/27/21] levothyroxine 125 mcg tablet 125 mcg PO DAILY 09/27/21 [History Confirmed 09/27/21] oxycodone-acetaminophen 5 mg-325 mg tablet (Percocet) 3 tab PO TID PRN Pain 09/27/21 [History Confirmed 09/27/21] Exam Physical Exam Vital Signs: Temp Pulse Resp BP Pulse Ox O2 Del Method O2 Flow Rate 98.8 F 110 H 19 112/70 100 Mechanical Ventilation 12 10/01/21 13:00 10/01/21 14:00 10/01/21 14:00 10/01/21 14:00 10/01/21 14:00 10/01/21 14:00 10/01/21 14:00 FiO2 30 10/01/21 14:19 Narrative: Intubated on mechanical ventilation, sedated. No acute distress. ET tube in place. Pupils equal and reactive. Oral mucosa normal. No JVD, no carotid bruit. Normal work of breathing, mechanical breath sounds symmetric anteriorly. Regular rate and rhythm, S1/S2 normal. No gallop. Abdomen obese soft nontender nondistended. Bowel sounds present. FORENSIC SCIENCE EXAMINER: Unable to perform neuro exam due to clinical condition/sedation Results Intake and Output I&O - Last 24 Hours: Intake & Output 09/30/21 10/01/21 10/01/21 23:59 07:59 15:59 Intake Total 1050 / 1050 600 / 700 100 / 700 Output Total 100 / 600 500 / 600 Balance 1050 / 1050 500 / 100 -400 / 100 Weight 124.6 kg Labs CBC & Chem 7: 10/01/21 06:00 10/01/21 06:00 Microbiology Micro: 09/27/21 12:28 Blood Culture - Preliminary Blood - Right Antecubital No Growth 4 Days 09/27/21 12:32 Blood Culture - Preliminary Blood - Left Antecubital No Growth 4 Days 09/27/21 13:54 Superficial Wound Culture - Final Toe,Left Second - Drainage Strep. agalactiae Grp B Assessment/Plan (1) Hematoma: (2) Peripheral vascular occlusive disease: (3) Ulcer of right foot with fat layer exposed: (4) Diabetic infection of left foot: (5) 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: (6) Osteomyelitis: Plan Patient with nicotine dependence, peripheral vascular disease status post multiple interventions presented with left foot ulcer. She underwent angiogram complicated with large right groin hematoma. She is currently intubated on mechanical ventilation, vent settings reviewed. Patient is currently sedated with propofol. Propofol was discontinued, patient arousable and following commands. She was placed on SBT with pressure support of 8, PEEP of 5 and 30% FiO2. Patient doing well on spontaneous breathing trial, she will be extubated . Apply O2 via nasal cannula. Documented By: Sai Marx MD 10/01/21 144 5 Signed By: <Electronically signed by Sai Marx MD> 10/01/[address] [facility] Work Phone: [phone] 384-225207-20-2022 Progress note Author Clyde Jeremy [facility] October 01, 2021 2:18pm Note Date/Time October 01, 2021 2:09 pm [facility] [address] [place] [address] Hospitalist Progress Note Signed Patient: Ema Neff MR#: [id number] : 1965 Acct:[id number] Age/Sex: 56 / F Adm Date: 2 Loc: Room: [address] [place] [address] Type : ADM IN Attending Dr: Clyde Luna MD Copies to: ~ Date of Service: 10/01/2021 Subjective Subjective Narrative: Patient seen and examined. She is currently sedated and is on mechanical ventilation. Patient unfortunately had hematoma complication from the procedureand was hypotensive requiring blood transfusions and IV fluids. Patient was emergently taken for the surgery, fortunately she did not have any bleeding fromthe right common femoral artery. Left common femoral artery sheath removed today and Minx device placed. Plan for removal of the device later today and extubation Physical exam: General -awake, alert, oriented ?3, not in acute distress, walking in the room Cardiovascular -S1 with S2 Pulmonary - clear to auscultation bilaterally Gastrointestinal - abdomen is soft, nondistended, nontender, bowel sounds positive, there is no rigidity, no rebound Extremities -bilateral foot ulcerations, left foot unchanged since admission Neurological -no focal neurological dysfunction noted Exam Physical Exam Vital Signs: Temp Pulse Resp BP Pulse Ox O2 Del Method O2 Flow Rate 97.4 F L 95 H 16 146/70 H 100 Mechanical Ventilation 12 10/01/21 09:00 10/01/21 12:33 10/01/21 12:33 10/01/21 12:30 10/01/21 12:30 10/01/21 12:30 10/01/21 12:30 FiO2 30 10/01/21 12:59 Objective Lab Results CBC & Chem 7: 10/01/21 06:00 10/01/21 06:00 Microbiology Results Microbiology 09/27/21 12:28 Blood - Right Antecubital Blood Culture - Preliminary No Growth 4 Days 09/27/21 12:32 Blood - Left Antecubital Blood Culture - Preliminary No Growth 4 Days 09/27/21 13:54 Toe,Left Second - Drainage Superficial Wound Culture - Final Strep. agalactiae Grp B Meds Allergies and Active Meds Allergies hydrocodone [From Vicodin] Allergy (Verified 09/27/21 12:00) Hallucinating Steroid Injection Allergy (Uncoded 09/26/21 20:11) Swelling Active Meds: Active Medications Generic Name Dose Route Start Last Admin Trade Name Freq PRN Reason Stop Dose Admin Acetaminophen 650 mg 09/27/21 14:45 Acetaminophen 325 Mg Tablet PO 09/27/22 14:44 Q4H PRN Pain Scale 1 - 5 Albuterol 6 puff 10/01/21 12:00 10/01/21 12:41 Albuterol Hfa 200 Puff/18 Gm Inhaler VENT 10/01/22 11:59 6 puff Q6HR PAULINO Administration Amitriptyline HCl 50 mg 09/27/21 22:00 09/30/21 22:19 Amitriptyline 50 Mg Tablet PO 09/27/22 21:59 50 mg HS PAULINO Administration Aspirin 81 mg 09/28/21 09:00 10/01/21 11:04 Aspirin 81 Mg Tablet.Dr ZAMBRANO 09/28/22 08:59 Not Given DAILY PAULINO Atorvastatin Calcium 20 mg 09/27/21 22:00 09/30/21 22:19 Atorvastatin 20 Mg Tablet PO 09/27/22 21:59 20 mg QHS PAULINO Administration Chlorhexidine Gluconate 15 ml 10/01/21 09:00 10/01/21 12:17 Chlorhexidine Gluconate 0.12% 15 Ml Udc MUCOUS MEM 10/01/22 08:59 15 ml BID PAULINO Administration Clopidogrel Bisulfate 75 mg 09/28/21 09:00 10/01/21 11:05 Clopidogrel Bisulfate 75 Mg Tablet PO 09/28/22 08:59 Not Given DAILY PAULINO Cyclobenzaprine HCl 10 mg 09/27/21 14:43 09/28/21 22:16 Cyclobenzaprine 10 Mg Tablet PO 09/27/22 14:42 10 mg QHS PRN Administration Muscle Spasm Dextrose 0 gm 09/27/21 14:45 Dextrose 50% In Water 25 Gm/50 Ml Syringe IV-PUSH 09/27/22 14:44 PRN PRN Hypoglycemia Docusate Sodium 200 mg 09/27/21 14:45 Docusate 100 Mg Capsule PO 09/27/22 14:44 BID PRN Constipation Doxycycline Hyclate 100 mg 10/01/21 09:00 10/01/21 11:05 Doxycycline Hyclate 100 Mg Tablet PO Not Given DAILY PAULINO Enoxaparin Sodium 40 mg 09/28/21 10:00 10/01/21 11:06 Enoxaparin 40 Mg/0.4 Ml Syringe SUBCUT 09/28/22 09:59 Not Given DAILY@1000 PAULINO Fluticasone Propionate 1 spray 10/01/21 06:38 Fluticasone Propionate [place] 120 [place]/16 Gm Bottle INTRANASAL 10/01/22 06:37 QHS PRN Nasal Congestion Gabapentin 800 mg 09/27/21 18:00 10/01/21 11:05 Gabapentin 800 Mg Tablet PO 09/27/22 17:59 Not Given QID PAULINO Glimepiride 4 mg 10/01/21 09:00 10/01/21 11:05 Glimepiride 4 Mg Tablet PO 10/01/22 08:59 Not Given QAM PAULINO Glucose 0 gm 09/27/21 14:45 Dextrose 40% Gel 15 Gm Tube PO 09/27/22 14:44 PRN PRN Hypoglycemia Hydralazine HCl 10 mg 09/27/21 14:45 Hydralazine 20 Mg/Ml Vial IV-PUSH 09/27/22 14:44 Q4H PRN if SBP > 185 Hydromorphone HCl 1 mg 09/30/21 17:58 10/01/21 11:01 Hydromorphone 1 Mg/Ml Syringe IV-PUSH 1 mg Q2H PRN Administration Pain Lactated Ringer's 1,000 mls @ 20 mls/hr 09/30/21 10:15 10/01/21 11:07 Lactated Ringers IV 09/30/22 10:14 Not Given .Q24H PAULINO Ceftriaxone Sodium 2 gm in 50 mls @ 100 mls/hr 09/30/21 17:45 09/30/21 22:18 Rocephin IV 100 mls/hr Q24H PAULINO Administration Sodium Chloride 500 mls @ 20 mls/hr 09/30/21 23:33 0.9 % Sodium Chloride IV 10/01/21 23:32 PROTOCOL PRN BLOOD TRANSFUSION Propofol 1,000 mg in 100 mls @ 13.644 mls/hr 10/01/21 02:00 10/01/21 12:17 Diprivan IV 10/01/22 01:59 30 mcg/kg/min .Q7H20M [facility] 20.47 mls/hr Administration Protocol 20 MCG/KG/MIN Insulin Aspart 0 units 09/27/21 17:00 10/01/21 12:03 Insulin Aspart 300 Units/3 Ml Insuln.Pen SUBCUT 09/27/22 16:59 Not Given TID.WM.HS PAULINO Protocol Levothyroxine Sodium 125 mcg 09/28/21 06:30 10/01/21 06:44 Levothyroxine 125 Mcg Tablet PO 09/28/22 06:29 Not Given DAILY@0630 [facility] Losartan Potassium 50 mg 09/28/21 09:00 10/01/21 11:06 Losartan 50 Mg Tablet PO 09/28/22 08:59 Not Given QAM [facility] Meclizine HCl 25 mg 10/01/21 06:38 Meclizine 25 Mg Tablet PO 10/01/22 06:37 QHS PRN Vertigo Metoprolol Succinate 50 mg 09/28/21 09:00 10/01/21 11:06 Metoprolol Succinate 50 Mg Tab.Er.24h PO 09/28/22 08:59 Not Given DAILY [facility] Naproxen 500 mg 10/01/21 09:00 10/01/21 11:06 Naproxen 500 Mg Tablet PO 10/01/22 08:59 Not Given BID [facility] Nystatin 1 applic 10/01/21 08:15 Nystatin 100,000 Unit/Gm Oint 30 Gm Tube TOPICAL 10/01/22 08:14 TID PRN rash Ondansetron HCl 4 mg 09/27/21 14:45 Ondansetron 4 Mg/2 Ml Vial IV-PUSH 09/27/22 14:44 Q6H PRN Nausea And Vomiting Oxycodone HCl 10 mg 09/30/21 17:57 Oxycodone Ir 5 Mg Tablet PO Q4HR PRN Pain Propofol 0 mg 10/01/21 06:39 Propofol - Infusion Bolus 1,000 Mg/100 Ml Vial IV 10/01/22 06:38 PROTOCOL PRN Bolus Documentation Sodium Chloride 0 ml 09/27/21 12:00 09/29/21 05:55 Sodium Chloride 0.9 % 10 Ml Syringe IV-PUSH 09/27/22 11:59 10 ml PRN PRN Administration Flush A&P - Hospitalist Assessment/Plan (1) Diabetic infection of left foot: (2) PVD (peripheral vascular disease): (3) Post-operative state: (4) Hematoma: Plan Patient currently intubated and is on mechanical ventilation Left common femoral artery sheath removed and Minx device placed Hematoma on the right thigh has significantly reduced since last night Received 2 units of PRBC so far, hemoglobin 11.7. Continue to monitor H&H WBC noted likely from the stress yesterday and surgery Wound culture positive for strep agalactiae Continue antibiotics Podiatry on board Plan for extubation today DVT prophylaxis CODE STATUS full Documented By: Clyde Luna MD 10/01/21 1406 Signed By: <Electronically signed by Clyde Luna MD> 10/01/21 1417 [facility] Work Phone: [phone] Progress note Author Karsten Vega [facility] October 01, 2021 2:02am Note Date/Time October 01, 2021 2:02 am [facility] [address] [place] [address] Vascular Surgery Progress Note Signed Patient: Ema Neff MR#: [id number] : 1965 Acct:[id number] Age/Sex: 56 / F Adm Date: 2 Loc: Room: [address] [place] [address] Type : ADM IN Attending Dr: Clyde Luna MD Copies to: ~ Date of Service: 10/01/2021 Subjective Subjective Interval history: Patient is continued to be hypotensive with a hematoma in her thigh. CT shows no retroperitoneal bleeding but there is a sizable hematoma. Exam Physical Exam Vital Signs: Temp Pulse Resp BP Pulse Ox 97.5 F L 98 H 16 73/41 L 100 09/30/21 21:34 09/30/21 23:51 09/30/21 23:51 09/30/21 23:51 09/30/21 23:51 Narrative: Significant hematoma right thigh that is not pulsatile at this time Objective Labs CBC & Chem 7: 09/30/21 22:50 09/30/21 22:50 Other Labs: Laboratory Results - last 24 hr 09/30/21 09/30/21 09/30/21 06:20 11:20 16:27 Corrected WBC Uncorrected WBC Count RBC Hgb Hct MCV MCH MCHC RDW Plt Count MPV Neut % (Auto) Lymph % (Auto) [place] % (Auto) Eos % (Auto) Baso % (Auto) Neut # (Auto) Lymph # (Auto) [place] # (Auto) Eos # (Auto) Baso # (Auto) Nucleated RBC % (auto) PT INR APTT PHA Creatinine Clear Sodium Potassium Chloride Carbon Dioxide BUN Creatinine Est GFR ( Amer) Est GFR (Non-Af Amer) Glucose POC Glucose 119 104 74 POC Glucose Comment Glu2: cleaned meter Calcium Total Bilirubin AST ALT Alkaline Phosphatase Total Protein Albumin Globulin Albumin/Globulin Ratio Blood Type Blood Type Recheck Antibody Screen Crossmatch ([facility]) 09/30/21 09/30/21 09/30/21 17:06 20:11 20:11 Corrected WBC 18.9 H Uncorrected WBC Count RBC 4.17 Hgb 12.9 Hct 40.2 MCV 96.5 MCH 30.9 MCHC 32.0 RDW 16.1 H Plt Count 329 MPV 7.2 Neut % (Auto) Lymph % (Auto) [place] % (Auto) Eos % (Auto) Baso % (Auto) Neut # (Auto) Lymph # (Auto) [place] # (Auto) Eos # (Auto) Baso # (Auto) Nucleated RBC % (auto) PT INR APTT PHA Creatinine Clear Sodium Potassium Chloride Carbon Dioxide BUN Creatinine Est GFR ( Amer) Est GFR (Non-Af Amer) Glucose POC Glucose 96 POC Glucose Comment Calcium Total Bilirubin AST ALT Alkaline Phosphatase Total Protein Albumin Globulin Albumin/Globulin Ratio Blood Type B Negative Blood Type Recheck Antibody Screen Negative Crossmatch ([facility]) See Detail 09/30/21 09/30/21 09/30/21 20:49 21:45 22:41 Corrected WBC Uncorrected WBC Count RBC Hgb Hct MCV MCH MCHC RDW Plt Count MPV Neut % (Auto) Lymph % (Auto) [place] % (Auto) Eos % (Auto) Baso % (Auto) Neut # (Auto) Lymph # (Auto) [place] # (Auto) Eos # (Auto) Baso # (Auto) Nucleated RBC % (auto) PT INR APTT PHA Creatinine Clear Sodium Potassium Chloride Carbon Dioxide BUN Creatinine Est GFR ( Amer) Est GFR (Non-Af Amer) Glucose POC Glucose 117 156 POC Glucose Comment Calcium Total Bilirubin AST ALT Alkaline Phosphatase Total Protein Albumin Globulin Albumin/Globulin Ratio Blood Type Blood Type Recheck B Negative Antibody Screen Crossmatch ([facility]) 09/30/21 09/30/21 09/30/21 22:50 22:50 22:50 Corrected WBC 22.8 H Uncorrected WBC Count 22.8 H RBC 4.04 Hgb 12.5 Hct 38.9 MCV 96.4 MCH 30.9 MCHC 32.0 RDW 16.5 H Plt Count 318 MPV 7.6 Neut % (Auto) 83.7 Lymph % (Auto) 11.3 [place] % (Auto) 4.1 Eos % (Auto) 0.4 Baso % (Auto) 0.5 Neut # (Auto) 19.1 H Lymph # (Auto) 2.6 [place] # (Auto) 0.9 H Eos # (Auto) 0.1 Baso # (Auto) 0.1 Nucleated RBC % (auto) 0.1 PT 13.1 H INR 1.2 APTT 27.0 PHA Creatinine Clear 68.93 Sodium 137 Potassium 3.8 Chloride 105 Carbon Dioxide 24.2 BUN 13 Creatinine 1.16 H Est GFR ( Amer) 59 Est GFR (Non-Af Amer) 49 Glucose 160 H POC Glucose POC Glucose Comment Calcium 7.9 L Total Bilirubin 0.8 AST 21 ALT 13 Alkaline Phosphatase 54 Total Protein 5.2 L Albumin 2.6 L Globulin 2.6 Albumin/Globulin Ratio 1.0 Blood Type Blood Type Recheck Antibody Screen Crossmatch ([facility]) Microbiology Microbiology: Microbiology - Results from entire visit 09/27/21 12:28 Blood - Right Antecubital Blood Culture - Preliminary No Growth 3 Days 09/27/21 12:32 Blood - Left Antecubital Blood Culture - Preliminary No Growth 3 Days 09/27/21 13:54 Toe,Left Second - Drainage Superficial Wound Culture - Final Strep. agalactiae Grp B 09/27/21 13:54 Nasal SARS Antigen (LFIA) - Final A&P - Vascular Assessment/Plan (1) Peripheral vascular occlusive disease: On my third time of pulmonary see her this evening I find that she remains hypotensive and does not seem to be getting better with simple resuscitation. His CT scan shows significant hematoma and there is a potential that she is continuing to hemorrhage. She has been transferred to the intensive care unit continuous pressures been placed on her thigh. Once she stabilized she will be taken to the operating room for diagnostic arteriogram and potential repair of apseudoaneurysm. Patient is awake enough to understand and the patient's son waspresent during the explanation as well Code(s): I73.9 - Peripheral vascular disease, unspecified Status: Acute Documented By: Karsten Vega MD 10/01/21 020 0 Signed By: <Electronically signed by MD Karsten Vega> 10/01/212[address] [facility] Work Phone: [phone] Progress note Author Juliane Campbell [facility] October 01, 2021 12:24am Note Date/Time September 30, 2021 11:0 6pm [facility] [address] [place] [address] Event Note Signed Patient: Ema Neff MR#: [id number] : 1965 Acct:[id number] Age/Sex: 56 / F Adm Date: 2 Loc: Room: [address] [place] [address] Type : ADM IN Attending Dr: Clyde Luna MD Copies to: MD Juliane Guzmán MD Robert L Hill, MD~ Event Date & Type DATE OF EVENT: 09/30/21 TIME OF EVENT: 22:33 CRITICAL CARE TIME: 60 EVENT TYPE: MET PROCEDURES PERFORMED DURING EVENT: None Event Details I was called to evaluate the patient emergently at the bedside for evaluation ofhypotension The patient had a right leg Angiogram today, developed a large hematoma in the right thigh She became hypotensive and dizzy this evening, tachycardic with a heart rate of 115 Hemoglobin earlier was 12.5 down from 15 She is morbidly obese, alert and oriented x3 Lungs clear to auscultation bilaterally Heart regular rhythm tachycardic Abdomen soft nontender Extremities she has a large right thigh hematoma medially No focal deficits She was feeling short of breath, she was placed on nonrebreather mask. Fluid resuscitation was initiated, the patient was transferred to the ICU. We will transfuse blood for volume resuscitation Dr. Vega came to the bedside and will discuss with her family surgical options, the most likely option is stent placement through a left femoral approach Documented By: Juliane Campbell MD 09/30/21 2594 Signed By: <Electronically signed by Juliane Campbell MD> 10/01/21 0024 [facility] Work Phone: [phone] Progress note Author Karsten Vega [facility] September 30, 2021 6:01pm Note Date/Time September 30, 2021 6:01 pm [facility] [address] [place] [address] Vascular Surgery Progress Note Signed Patient: Ema Neff MR#: [id number] : 1965 Acct:[id number] Age/Sex: 56 / F Adm Date: 2 Loc: Room: [address] [place] [address] Type : ADM IN Attending Dr: Clyde Luna MD Copies to: ~ Date of Service: 09/30/2021 Subjective Subjective Interval history: I was called to see this patient for hematoma after diagnostic arteriogram today Exam Physical Exam Vital Signs: Temp Pulse Resp BP Pulse Ox 97.8 F 57 L 14 143/84 H 95 09/30/21 12:57 09/30/21 17:04 09/30/21 17:04 09/30/21 17:04 09/30/21 17:04 Narrative: FemoStop is in place. Her foot is perfused. She has a hematoma that tracked medial from the puncture site and is away from the vascular bundle but is quite uncomfortable for her in the medial thigh. Objective Labs CBC & Chem 7: 09/29/21 06:18 09/29/21 06:18 Other Labs: Laboratory Results - last 24 hr 09/29/21 09/30/21 09/30/21 20:45 06:20 11:20 POC Glucose 119 119 104 POC Glucose Comment Glu2: cleaned meter 09/30/21 09/30/21 16:27 17:06 POC Glucose 74 96 POC Glucose Comment Microbiology Microbiology: Microbiology - Results from entire visit 09/27/21 12:28 Blood - Right Antecubital Blood Culture - Preliminary No Growth 3 Days 09/27/21 12:32 Blood - Left Antecubital Blood Culture - Preliminary No Growth 3 Days 09/27/21 13:54 Toe,Left Second - Drainage Superficial Wound Culture - Final Strep. agalactiae Grp B 09/27/21 13:54 Nasal SARS Antigen (LFIA) - Final A&P - Vascular Assessment/Plan (1) Peripheral vascular occlusive disease: At this juncture we readjusted her FemoStop and I reordered additional pain medications. We did reverse her heparin at the completion of her angiographic procedure but she has significant antiplatelet therapy as well as low-dose Lovenox. For now I think she will stabilize and we can remove the FemoStop in an hour or so but she will continue with bedrest. She may require drainage of the hematoma is tense enough to cause any impending injury of skin. Code(s): I73.9 - Peripheral vascular disease, unspecified Status: Acute Documented By: Karsten Vega MD 09/30/21 175 9 Signed By: <Electronically signed by MD Karsten Vega> 09/30/[address] [facility] Work Phone: [phone] Consult note Author Karsten Vega [facility] September 30, 2021 5:08pm Note Date/Time September 29, 2021 8:41 am [facility] [address] [place] [address] Vascular Surgery Consult Note Signed Patient: Ema Neff MR#: [id number] : 1965 Acct:[id number] Age/Sex: 56 / F Adm Date: 2 Loc: Room: [address] [place] [address] Type : ADM IN Attending Dr: Clyde Luna MD Copies to: MD Alejandra Guzmán APRN Jeffrey L Buehrer, MD Robert L Hill, MD~ HPI Consult HPI Reason for consult: PAD with worsening left foot wounds History of present illness: Ms. Neff is a 56-year-old female with medical history to include type 2 diabetes with neuropathy, PAD s/p multiple interventions bilateral legs, hypertension, hyperlipidemia, and current smoker. She presented through the emergency department for worsening left foot wound. She has had a partial amputation of her second toe and has been following with podiatry specialist for care of her wounds. She is a well-known patient to our office and has been following with Dr. Mon and has had multiple recent interventions bilaterally. She recently also had a thyroidectomy with Dr. David and had to be taken off of her antiplatelet medications which caused worsening of her vascular insufficiency and restenosis of the left lower extremity. We had planned intervention of the left lower extremity once again on 10/13/2021 however due to worsening left foot wounds her motor polarizer has requested that her procedure be done while she is here in the hospital due to the left foot wound worsening and second residual toe with exposed bone. She is having increased erythema and edema with increased drainage. She denies any fever or chills and denies any foul odor. cc:: CC: Elise Marie MD Data of Consult Consult date: 09/29/2021 Requesting Physician: Elise Marie MD Review of Systems Review of Systems All other systems reviewed & are negative unless noted below or in HPI PMFSH Vaccinated for COVID-19?: Yes Medical History Arthritis Back pain Bronchitis Cellulitis DDD (degenerative disc disease) Diabetes Diabetes mellitus, type 2 Difficulty swallowing per pt since dx with thyroid problems DJD (degenerative joint disease) Eczema GERD (gastroesophageal reflux disease) since being dx with thyroid problems Gout History of amputation of toe History of CVA in adulthood rt sided weakness Hyperlipidemia Hypertension Hyperthyroidism Menopause Neuropathy Osteoporosis Sleep apnea no machine Smoker quit 03/2021 Tachycardia Ulcerative colitis Surgical History History of carpal tunnel surgery of right wrist History of cholecystectomy History of endometrial ablation History of surgery on wrist carpal tunnel and ulnar nerve rt arm; carpal tunnel left History of tonsillectomy History of tubal ligation Hx of angioplasty bilateral legs x2, 2 stents on R Hx of cataract surgery bilateral S/P angioplasty with stent rt leg Family History Father Bladder cancer Prostate cancer Diabetes Mother H/O blood clots Social History Smoking Status: Former smoker Tobacco Type: cigarettes Substance Use Type: None Social History Comments: Patient is . She resides with her spouse. She uses no DME. She is on disability due to chronic low back pain which she feels is from a work injury. Allergies & Active Medications Medications and Allergies Allergies hydrocodone [From Vicodin] Allergy (Verified 09/27/21 12:00) Hallucinating Steroid Injection Allergy (Uncoded 09/26/21 20:11) Swelling Exam Physical Exam Vital Signs: Temp Pulse Resp BP Pulse Ox 97.2 F L 67 16 138/67 95 09/29/21 05:44 09/29/21 05:44 09/29/21 05:44 09/29/21 05:44 09/29/21 05:44 Narrative: 56-year-old female, no acute distress. She is alert and oriented x3. She is sitting up at the side of her bed enjoying her breakfast this morning. No shortness of breath on conversation today. Bilateral feet with clean, dry dressings in place. Bilateral pedal pulses are nonpalpable. Right foot with biphasic PT and DP signal, left foot with faint signal on hand-held Doppler. Results Labs CBC & Chem 7: 09/29/21 06:18 09/29/21 06:18 Labs: Laboratory Results - last 24 hr 09/28/21 09/28/21 09/28/21 05:57 12:03 16:17 Corrected WBC Uncorrected WBC Count RBC Hgb Hct MCV MCH MCHC RDW Plt Count MPV Neut % (Auto) Lymph % (Auto) [place] % (Auto) Eos % (Auto) Baso % (Auto) Neut # (Auto) Lymph # (Auto) [place] # (Auto) Eos # (Auto) Baso # (Auto) Nucleated RBC % (auto) PHA Creatinine Clear Sodium Potassium Chloride Carbon Dioxide BUN Creatinine Est GFR ( Amer) Est GFR (Non-Af Amer) Glucose POC Glucose 127 116 Estimat Average Glucose 146 Hemoglobin A1c 6.7 H Calcium 09/28/21 09/29/21 09/29/21 20:33 06:18 06:18 Corrected WBC 10.4 Uncorrected WBC Count 10.4 RBC 5.01 H Hgb 15.6 H Hct 47.8 H MCV 95.6 MCH 31.1 MCHC 32.5 RDW 16.5 H Plt Count 331 MPV 7.2 Neut % (Auto) 60.3 Lymph % (Auto) 29.4 [place] % (Auto) 7.3 Eos % (Auto) 2.2 Baso % (Auto) 0.8 Neut # (Auto) 6.3 Lymph # (Auto) 3.1 [place] # (Auto) 0.8 Eos # (Auto) 0.2 Baso # (Auto) 0.1 Nucleated RBC % (auto) 0.0 PHA Creatinine Clear 78.39 Sodium 137 Potassium 3.9 Chloride 102 Carbon Dioxide 28.2 BUN 9 Creatinine 1.02 Est GFR ( Amer) > 60 Est GFR (Non-Af Amer) 56 Glucose 99 POC Glucose 118 Estimat Average Glucose Hemoglobin A1c Calcium 8.8 09/29/21 06:31 Corrected WBC Uncorrected WBC Count RBC Hgb Hct MCV MCH MCHC RDW Plt Count MPV Neut % (Auto) Lymph % (Auto) [place] % (Auto) Eos % (Auto) Baso % (Auto) Neut # (Auto) Lymph # (Auto) [place] # (Auto) Eos # (Auto) Baso # (Auto) Nucleated RBC % (auto) PHA Creatinine Clear Sodium Potassium Chloride Carbon Dioxide BUN Creatinine Est GFR ( Amer) Est GFR (Non-Af Amer) Glucose POC Glucose 97 Estimat Average Glucose Hemoglobin A1c Calcium Microbiology Microbiology: 09/27/21 13:54 Nasal SARS Antigen (LFIA) - Final A&P - Vascular (1) 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: Code(s): L97.524 - Non-pressure chronic ulcer of other part of left foot with necrosis ofbone Status: Acute (2) Ulcer of right foot with fat layer exposed: Code(s): L97.512 - Non-pressure chronic ulcer of other part of right foot with fat layer exposed Status: Acute (3) Diabetic foot infection: Code(s): E11.628 - Type 2 diabetes mellitus with other skin complications; L08.9 - Local infection of the skin and subcutaneous tissue, unspecified Status: Acute (4) Diabetes mellitus with foot ulcer: Code(s): E11.621 - Type 2 diabetes mellitus with foot ulcer; L97.509 - Non-pressure chronic ulcer of other part of unspecified foot with unspecified severity Status: Acute (5) PVD (peripheral vascular disease): Plan: This patient was scheduled for 10/13/2021 for redo revascularization of the left lower extremity with Dr. Mon. In his absence Dr. Vega will be evaluating this patient. 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 Davdi. She has now been placed back on her dual antiplatelet medications and is able to undergo her left lower extremity revascularization procedure. This was originally scheduled for 10/13/2021 however with worsening left foot wounds, her motor polarizer has recommended we proceed with this while she is here in the hospital. We will be back around to see her this afternoon to evaluate further and make a plan from there. Patient verbalizes understanding, agrees with this plan, denies any questions. This is Dr. Vega dictating. I discussed this patient's current condition with her and her family. She had a previous palpable pulse which has now been lost and will undergo diagnostic arteriogram to look at further options for revascularization. Given the small vessel nature of her occlusive disease, continued smoking, and diabetes risk for limb loss is significant. We will perform endovascular intervention tomorrow if possible. Code(s): I73.9 - Peripheral vascular disease, unspecified Status: Acute Documented By: Alejandra Middleton APRN 09/29/21 0 840 Signed By: <Electronically signed by NAOMI Middleton> 09/29/21 0841 <Electronically signed by MD Karsten Vega> 09/30/21 170 [facility] Work Phone: [phone] 625-884907-19-2022 Progress note Author Clyde Luna [facility] September 30, 2021 4:20pm Note Date/Time September 30, 2021 4:15 pm [facility] [address] [place] [address] Hospitalist Progress Note Signed Patient: Ema Neff MR#: [id number] : 1965 Acct:[id number] Age/Sex: 56 / F Adm Date: 2 Loc: Room: [address] [place] [address] Type : ADM IN Attending Dr: Clyde Luna MD Copies to: ~ Date of Service: 09/30/2021 Subjective Subjective Narrative: Patient has been seen and examined today. States that pain in the foot is fairly well controlled after adjusting the pain medications. She is scheduled to have vascular procedure today. Physical exam: General -awake, alert, oriented ?3, not in acute distress, walking in the room Cardiovascular -S1 with S2 Pulmonary - clear to auscultation bilaterally Gastrointestinal - abdomen is soft, nondistended, nontender, bowel sounds positive, there is no rigidity, no rebound Extremities -bilateral foot ulcerations, left foot unchanged since admission Neurological -no focal neurological dysfunction noted Exam Physical Exam Vital Signs: Temp Pulse Resp BP Pulse Ox 97.8 F 72 16 146/83 H 95 09/30/21 12:57 09/30/21 12:57 09/30/21 12:57 09/30/21 12:57 09/30/21 12:57 Objective Lab Results CBC & Chem 7: 09/29/21 06:18 09/29/21 06:18 Microbiology Results Microbiology 09/27/21 12:28 Blood - Right Antecubital Blood Culture - Preliminary No Growth 3 Days 09/27/21 12:32 Blood - Left Antecubital Blood Culture - Preliminary No Growth 3 Days 09/27/21 13:54 Toe,Left Second - Drainage Superficial Wound Culture - Final Strep. agalactiae Grp B Meds Allergies and Active Meds Allergies hydrocodone [From Vicodin] Allergy (Verified 09/27/21 12:00) Hallucinating Steroid Injection Allergy (Uncoded 09/26/21 20:11) Swelling Active Meds: Active Medications Generic Name Dose Route Start Last Admin Trade Name Freq PRN Reason Stop Dose Admin Acetaminophen 650 mg 09/27/21 14:45 Acetaminophen 325 Mg Tablet PO 09/27/22 14:44 Q4H PRN Pain Scale 1 - 5 Amitriptyline HCl 50 mg 09/27/21 22:00 09/29/21 21:00 Amitriptyline 50 Mg Tablet PO 09/27/22 21:59 50 mg HS PAULINO Administration Aspirin 81 mg 09/28/21 09:00 09/30/21 08:34 Aspirin 81 Mg Tablet. PO 09/28/22 08:59 81 mg DAILY PAULINO Administration Atorvastatin Calcium 20 mg 09/27/21 22:00 09/29/21 20:59 Atorvastatin 20 Mg Tablet PO 09/27/22 21:59 20 mg QHS PAULINO Administration Clopidogrel Bisulfate 75 mg 09/28/21 09:00 09/30/21 08:34 Clopidogrel Bisulfate 75 Mg Tablet PO 09/28/22 08:59 75 mg DAILY PAULINO Administration Cyclobenzaprine HCl 10 mg 09/27/21 14:43 09/28/21 22:16 Cyclobenzaprine 10 Mg Tablet PO 09/27/22 14:42 10 mg QHS PRN Administration Muscle Spasm Dextrose 0 gm 09/27/21 14:45 Dextrose 50% In Water 25 Gm/50 Ml Syringe IV-PUSH 09/27/22 14:44 PRN PRN Hypoglycemia Docusate Sodium 200 mg 09/27/21 14:45 Docusate 100 Mg Capsule PO 09/27/22 14:44 BID PRN Constipation Enoxaparin Sodium 40 mg 09/28/21 10:00 09/30/21 10:13 Enoxaparin 40 Mg/0.4 Ml Syringe SUBCUT 09/28/22 09:59 Not Given DAILY@1000 PAULINO Gabapentin 800 mg 09/27/21 18:00 09/30/21 08:34 Gabapentin 800 Mg Tablet PO 09/27/22 17:59 800 mg QID PAULINO Administration Glucose 0 gm 09/27/21 14:45 Dextrose 40% Gel 15 Gm Tube PO 09/27/22 14:44 PRN PRN Hypoglycemia Hydralazine HCl 10 mg 09/27/21 14:45 Hydralazine 20 Mg/Ml Vial IV-PUSH 09/27/22 14:44 Q4H PRN if SBP > 185 Hydromorphone HCl 0.5 mg 09/29/21 12:02 09/30/21 08:33 Hydromorphone 0.5 Mg/0.5 Ml Syringe IV-PUSH 0.5 mg Q4H PRN Administration Severe Pain Ceftaroline Fosamil 600 mg in 100 mls @ 200 mls/hr 09/28/21 02:00 09/30/21 02:17 Teflaro IV 200 mls/hr Q12H PAULINO Administration Lactated Ringer's 1,000 mls @ 20 mls/hr 09/30/21 10:15 09/30/21 13:03 Lactated Ringers IV 09/30/22 10:14 20 mls/hr .Q24H PAULINO Administration Insulin Aspart 0 units 09/27/21 17:00 09/30/21 11:45 Insulin Aspart 300 Units/3 Ml Insuln.Pen SUBCUT 09/27/22 16:59 Not Given TID.WM.HS [facility] Protocol Levothyroxine Sodium 125 mcg 09/28/21 06:30 09/30/21 06:14 Levothyroxine 125 Mcg Tablet PO 09/28/22 06:29 125 mcg DAILY@0630 PAULINO Administration Losartan Potassium 50 mg 09/28/21 09:00 09/30/21 08:34 Losartan 50 Mg Tablet PO 09/28/22 08:59 50 mg QAM PAULINO Administration Metoprolol Succinate 50 mg 09/28/21 09:00 09/30/21 08:34 Metoprolol Succinate 50 Mg Tab.Er.24h PO 09/28/22 08:59 50 mg DAILY PAULINO Administration Ondansetron HCl 4 mg 09/27/21 14:45 Ondansetron 4 Mg/2 Ml Vial IV-PUSH 09/27/22 14:44 Q6H PRN Nausea And Vomiting Oxycodone/Acetaminophen 3 tab 09/27/21 15:38 09/29/21 20:59 Oxycodone/Acetaminophen 5-325 Mg Tablet PO 3 tab TID PRN Administration Pain Sodium Chloride 0 ml 09/27/21 12:00 09/29/21 05:55 Sodium Chloride 0.9 % 10 Ml Syringe IV-PUSH 09/27/22 11:59 10 ml PRN PRN Administration Flush A&P - Hospitalist Assessment/Plan (1) Diabetic infection of left foot: Plan 1. Infected diabetic left foot wound, likely due to peripheral arterial diseasewith underlying peripheral neuropathy due to diabetes Wound culture preliminary showed normal skin neo, blood cultures showed no growth so far WBC 10.4 switch teflaro to ampicillin Vascular and podiatry on board. Plan for angiogram today 2. Diabetes mellitus type 2, with peripheral neuropathy Hemoglobin A1c 6.7 Sliding scale 3. Polycythemia, probably due to underlying hypoxia Hb 15.6 DVT prophylaxis: Lovenox Documented By: Clyde Luna MD 09/30/21 161 Signed By: <Electronically signed by Clyde Luna MD> 09/30/21 1620 [facility] Work Phone: [phone] Progress note Author Clyde Luna [facility] September 29, 2021 4:11pm Note Date/Time September 29, 2021 4:11 pm [facility] [address] [place] [address] Hospitalist Progress Note Signed Patient: Ema Neff MR#: [id number] : 1965 Acct:[id number] Age/Sex: 56 / F Adm Date: 2 Loc: Room: [address] [place] [address] Type : ADM IN Attending Dr: Clyde Luna MD Copies to: ~ Date of Service: 09/29/2021 Subjective Subjective Narrative: Patient has been seen and examined today. She is requesting to increase the frequency of pain medications as the pain is intolerable. Otherwise denies any other complaints. Physical exam: General -awake, alert, oriented ?3, not in acute distress, walking in the room Cardiovascular -S1 with S2 Pulmonary - clear to auscultation bilaterally Gastrointestinal - abdomen is soft, nondistended, nontender, bowel sounds positive, there is no rigidity, no rebound Extremities -bilateral foot ulcerations, left foot unchanged since admission Neurological -no focal neurological dysfunction noted Exam Physical Exam Vital Signs: Temp Pulse Resp BP Pulse Ox 97.2 F L 73 18 115/81 96 09/29/21 05:44 09/29/21 15:48 09/29/21 15:48 09/29/21 15:48 09/29/21 15:48 Objective Lab Results CBC & Chem 7: 09/29/21 06:18 09/29/21 06:18 Microbiology Results Microbiology 09/27/21 13:54 Toe,Left Second - Drainage Superficial Wound Culture - Preliminary 09/27/21 12:32 Blood - Left Antecubital Blood Culture - Preliminary No Growth 2 Days 09/27/21 12:28 Blood - Right Antecubital Blood Culture - Preliminary No Growth 2 Days Meds Allergies and Active Meds Allergies hydrocodone [From Vicodin] Allergy (Verified 09/27/21 12:00) Hallucinating Steroid Injection Allergy (Uncoded 09/26/21 20:11) Swelling Active Meds: Active Medications Generic Name Dose Route Start Last Admin Trade Name Amarilis PRN Reason Stop Dose Admin Acetaminophen 650 mg 09/27/21 14:45 Acetaminophen 325 Mg Tablet PO 09/27/22 14:44 Q4H PRN Pain Scale 1 - 5 Amitriptyline HCl 50 mg 09/27/21 22:00 09/28/21 22:16 Amitriptyline 50 Mg Tablet PO 09/27/22 21:59 50 mg HS PAULINO Administration Aspirin 81 mg 09/28/21 09:00 09/29/21 08:41 Aspirin [address]Dr ZAMBRANO 09/28/22 08:59 81 mg DAILY PAULINO Administration Atorvastatin Calcium 20 mg 09/27/21 22:00 09/28/21 22:16 Atorvastatin 20 Mg Tablet PO 09/27/22 21:59 20 mg QHS PAULINO Administration Clopidogrel Bisulfate 75 mg 09/28/21 09:00 09/29/21 08:41 Clopidogrel Bisulfate 75 Mg Tablet PO 09/28/22 08:59 75 mg DAILY PAULINO Administration Cyclobenzaprine HCl 10 mg 09/27/21 14:43 09/28/21 22:16 Cyclobenzaprine 10 Mg Tablet PO 09/27/22 14:42 10 mg QHS PRN Administration Muscle Spasm Dextrose 0 gm 09/27/21 14:45 Dextrose 50% In Water 25 Gm/50 Ml Syringe IV-PUSH 09/27/22 14:44 PRN PRN Hypoglycemia Docusate Sodium 200 mg 09/27/21 14:45 Docusate 100 Mg Capsule PO 09/27/22 14:44 BID PRN Constipation Enoxaparin Sodium 40 mg 09/28/21 10:00 09/29/21 10:30 Enoxaparin 40 Mg/0.4 Ml Syringe SUBCUT 09/28/22 09:59 40 mg DAILY@1000 PAULINO Administration Gabapentin 800 mg 09/27/21 18:00 09/29/21 13:55 Gabapentin 800 Mg Tablet PO 09/27/22 17:59 800 mg QID PAULINO Administration Glucose 0 gm 09/27/21 14:45 Dextrose 40% Gel 15 Gm Tube PO 09/27/22 14:44 PRN PRN Hypoglycemia Hydralazine HCl 10 mg 09/27/21 14:45 Hydralazine 20 Mg/Ml Vial IV-PUSH 09/27/22 14:44 Q4H PRN if SBP > 185 Hydromorphone HCl 0.5 mg 09/29/21 12:02 09/29/21 13:55 Hydromorphone 0.5 Mg/0.5 Ml Syringe IV-PUSH 0.5 mg Q4H PRN Administration Severe Pain Ceftaroline Fosamil 600 mg in 100 mls @ 200 mls/hr 09/28/21 02:00 09/29/21 13:59 Teflaro IV 200 mls/hr Q12H PAULINO Administration Insulin Aspart 0 units 09/27/21 17:00 09/29/21 11:52 Insulin Aspart 300 Units/3 Ml Insuln.Pen SUBCUT 09/27/22 16:59 2 units TID.WM.HS PAULINO Administration Protocol Levothyroxine Sodium 125 mcg 09/28/21 06:30 09/29/21 05:48 Levothyroxine 125 Mcg Tablet PO 09/28/22 06:29 125 mcg DAILY@0630 PAULINO Administration Losartan Potassium 50 mg 09/28/21 09:00 09/29/21 08:41 Losartan 50 Mg Tablet PO 09/28/22 08:59 50 mg QAM PAULINO Administration Metoprolol Succinate 50 mg 09/28/21 09:00 09/29/21 08:41 Metoprolol Succinate 50 Mg Tab.Er.24h PO 09/28/22 08:59 50 mg DAILY PAULINO Administration Ondansetron HCl 4 mg 09/27/21 14:45 Ondansetron 4 Mg/2 Ml Vial IV-PUSH 09/27/22 14:44 Q6H PRN Nausea And Vomiting Oxycodone/Acetaminophen 3 tab 09/27/21 15:38 09/29/21 10:30 Oxycodone/Acetaminophen 5-325 Mg Tablet PO 3 tab TID PRN Administration Pain Sodium Chloride 0 ml 09/27/21 12:00 09/29/21 05:55 Sodium Chloride 0.9 % 10 Ml Syringe IV-PUSH 09/27/22 11:59 10 ml PRN PRN Administration Flush A&P - Hospitalist Assessment/Plan (1) Diabetic infection of left foot: Plan 1. Infected diabetic left foot wound, likely due to peripheral arterial diseasewith underlying peripheral neuropathy due to diabetes Wound culture preliminary showed normal skin neo, blood cultures showed no growth so far WBC 10.4 Continue [facility] Vascular and podiatry on board. Plan for angiogram tomorrow 2. Diabetes mellitus type 2, with peripheral neuropathy Hemoglobin A1c 6.7 Sliding scale 3. Polycythemia, probably due to underlying hypoxia, if no improvement will consider referral to hematology Hb 15.6 DVT prophylaxis: Lovenox Documented By: Clyde Luna MD 09/29/21 1607 Signed By: <Electronically signed by Clyde Luna MD> 09/29/21 1611 [facility] Work Phone: [phone] Consult note Author Chichi Ramirez [facility] September 28, 2021 2:04pm Note Date/Time September 28, 2021 1:19 pm [facility] [address] [place] [address] Podiatry Consult Note Signed Patient: Ema Neff MR#: [id number] : 1965 Acct:[id number] Age/Sex: 56 / F Adm Date: 2 Loc: Room: [address] [place] [address] Type : ADM IN Attending Dr: Elise Marie MD Copies to: TERESA Allen MD Ruta Semaskiene, MD~ HPI Data of Consult Consult Date: 09/28/21 Requesting Physician: Elise Marie MD Primary Care Provider: Jarvis Thrasher MD Consult Narrative Reason for consult: left foot ulceration/infection History of present illness: Ms. Neff is a 56 year old female who I have followed for the past 1 year due to issues related to diabetes, PVD and ulcerations. 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 She has awound on the right foot that is stable and slowly healing. She developed gangrene in the left second toe and underwent partial toe amputation. The incision did have some dry gangrene, but this was healing well until she was taken off her blood thinners due to a thyroid surgery and she has noticed significant worsening. Patient contacted me Wednesday afternoon to state that the eschar along the end of the toe came off and there was exposed bone noted. She has vascular surgery scheduled for 10/13, but due to this new findings, we discussER evaluation and hospital admission to hopefully help expedite the surgery in order to prevent further more proximal amputation. Patient does have a chronic pain to the bilateral foot due to her PVD. She deneis any N/F/V/C/Sob. No other complaints. Review of Systems Review of Systems All other systems reviewed & are negative unless noted below or in HPI PMFSH Vaccinated for COVID-19?: Yes Medical History (Updated 09/28/21 @ 14:02 by Chichi Ramirez DPM) Arthritis Back pain Bronchitis Cellulitis DDD (degenerative disc disease) Diabetes Diabetes mellitus, type 2 Difficulty swallowing per pt since dx with thyroid problems DJD (degenerative joint disease) Eczema GERD (gastroesophageal reflux disease) since being dx with thyroid problems Gout History of amputation of toe History of CVA in adulthood rt sided weakness Hyperlipidemia Hypertension Hyperthyroidism Menopause Neuropathy Osteoporosis Sleep apnea no machine Smoker quit 03/2021 Tachycardia Ulcerative colitis Surgical History History of carpal tunnel surgery of right wrist History of cholecystectomy History of endometrial ablation History of surgery on wrist carpal tunnel and ulnar nerve rt arm; carpal tunnel left History of tonsillectomy History of tubal ligation Hx of angioplasty bilateral legs x2, 2 stents on R Hx of cataract surgery bilateral S/P angioplasty with stent rt leg Family History Father Bladder cancer Prostate cancer Diabetes Mother H/O blood clots Social History Smoking Status: Former smoker Tobacco Type: cigarettes Substance Use Type: None Social History Comments: Patient is . She resides with her spouse. She uses no DME. She is on disability due to chronic low back pain which she feels is from a work injury. Meds Medications and Allergies Allergies hydrocodone [From Vicodin] Allergy (Verified 09/27/21 12:00) Hallucinating Steroid Injection Allergy (Uncoded 09/26/21 20:11) Swelling Home Medications losartan 50 mg tablet 50 mg PO QAM 11/02/17 [History Confirmed 09/27/21] fluticasone propionate 50 mcg/actuation nasal spray,suspension (Flonase Allergy Relief) 1 spray INTRANASAL QHS PRN 03/06/18 [History Confirmed 09/27/21] amitriptyline 25 mg tablet 50 mg PO HS 01/21/21 [History Confirmed 09/27/21] gabapentin 800 mg tablet 800 mg PO QID 01/21/21 [History Confirmed 09/27/21] glimepiride 4 mg tablet 4 mg PO QAM 01/21/21 [History Confirmed 09/27/21] meloxicam 15 mg tablet 15 mg PO DAILY 01/21/21 [History Confirmed 09/27/21] meclizine 25 mg tablet 25 mg PO QHS PRN 02/12/21 [History Confirmed 09/27/21] nystatin 100,000 unit/gram topical ointment 1 applic TOPICAL TID PRN 03/10/21 [History Confirmed 09/27/21] aspirin 81 mg tablet,delayed release 81 mg PO DAILY 05/02/21 [History Confirmed 09/27/21] atorvastatin 20 mg tablet (Lipitor) 20 mg PO QHS 05/02/21 [History Confirmed 09/27/21] clopidogrel 75 mg tablet 75 mg PO DAILY 05/02/21 [History Confirmed 09/27/21] cyclobenzaprine 5 mg tablet 10 mg PO QHS PRN 05/02/21 [History Confirmed 09/27/21] metoprolol succinate 25 mg tablet,extended release 24 hr 50 mg PO DAILY 05/02/21[History Confirmed 09/28/21] doxycycline hyclate 100 mg tablet 100 mg PO DAILY 09/27/21 [History Confirmed 09/27/21] levothyroxine 125 mcg tablet 125 mcg PO DAILY 09/27/21 [History Confirmed 09/27/21] oxycodone-acetaminophen 5 mg-325 mg tablet (Percocet) 3 tab PO TID PRN 09/27/21 [History Confirmed 09/27/21] Exam Physical Exam Vital Signs: Temp Pulse Resp BP Pulse Ox 97.7 F 84 20 159/87 H 97 09/28/21 12:29 09/28/21 12:29 09/28/21 12:29 09/28/21 12:29 09/28/21 12:29 Narrative: General: Patient is seen at bedside and is awake and aware and in no acute distress. Vascular: DP and PT pulses are nonpalpable to the bilateral lower extremity. There is a significant amount of areas of erythema to the left foot along the ulceration site and toes consistent with PVD. Neurology: Patient has known diabetic peripheral and autonomic neuropathy. Dermatology: Patient has a healthy and healing wound noted to the right second toe amputation site. Majority of the base of this wound is granular and this does appear to be closing compared to prior outpatient follow-up. New evidence of proximal gangrene to the left second toe amputation site with exposed bone along the central aspect of the opening. This has worsened in regards to the presence of eschar/gangrene and exposed bone from a prior outpatient follow-up. Patient also has a new wound along the medial aspect of the left foot measuring approximately 2 cm x 1 cm with fibrotic tissue base and surrounding erythema. There are also new gangrenous lesions to the medial aspect of the left hallux, lateral aspect of the left third digit, medial aspect of the left fourth digit and distal aspect of the left fourth digit which are new from prior examination concerning for circulation changes to the left foot. Orthopedic: Patient has a significant amount of pain related to the left second toe amputation site and ulceration along the medial aspect of the left foot. Results Labs CBC & Chem 7: 09/28/21 05:57 09/28/21 05:57 ESR 21 mm/hr (0-29) 09/27/21 12:28 Microbiology Microbiology: Microbiology - Results from entire visit 09/27/21 12:32 Blood - Left Antecubital Blood Culture - Preliminary No Growth 1 Day 09/27/21 12:28 Blood - Right Antecubital Blood Culture - Preliminary No Growth 1 Day 09/27/21 13:54 Toe,Left Second - Drainage Superficial Wound Culture - Preliminary Heavy Normal Skin Neo 1 Day 09/27/21 13:54 Nasal SARS Antigen (LFIA) - Final Assessment/Plan (1) 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: Plan: Patient was seen was examined for any new changes to the left foot subsequent toher PVD. She was originally scheduled for revascularization on October 13 but there was concern that this may significantly worsen and result in the loss of more proximal amputation, her foot or leg based upon the active changes to the left foot. This prompted her to go to the emergency room for admission. We arecurrently waiting on vascular evaluation. Hopefully they will be able to schedule her for the revascularization on the left lower extremity and we can proceed with the more proximal amputation of the left toe. I did discuss with the patient the concern for the new onset of areas of gangrene to the toes and potential for amputation based upon any progression. We did also discussed thatthere may not be enough skin for direct closure over the amputation site and patient may have a subsequent ulceration but hopefully with increase circulationwe will noticed healing as is currently occurring in the right foot. Patient can continue with dressing changes to the right foot as ordered. We will await vascular evaluation to determine the further plan of care for this patient. Code(s): L97.524 - Non-pressure chronic ulcer of other part of left foot with necrosis ofbone (2) Ulcer of right foot with fat layer exposed: Code(s): L97.512 - Non-pressure chronic ulcer of other part of right foot with fat layer exposed (3) Diabetic foot infection: Code(s): E11.628 - Type 2 diabetes mellitus with other skin complications; L08.9 - Local infection of the skin and subcutaneous tissue, unspecified (4) Diabetes mellitus with foot ulcer: Code(s): E11.621 - Type 2 diabetes mellitus with foot ulcer; L97.509 - Non-pressure chronic ulcer of other part of unspecified foot with unspecified severity (5) PVD (peripheral vascular disease): Code(s): I73.9 - Peripheral vascular disease, unspecified Documented By: Chichi Ramirez DPM 09/28/21 13 15 Signed By: <Electronically signed by TERESA Ramirez> 09/28/21 1404 [facility] Work Phone: [phone] Progress note Author Elise Marie [facility] September 28, 2021 2:03pm Note Date/Time September 28, 2021 2:02 pm [facility] [address] [place] [address] Hospitalist Progress Note Signed Patient: Ema Neff MR#: [id number] : 1965 Acct:[id number] Age/Sex: 56 / F Adm Date: 2 Loc: Room: [address] [place] [address] Type : ADM IN Attending Dr: Elise Marie MD Copies to: ~ Date of Service: 09/28/2021 Subjective Subjective Narrative: Patient has been seen and examined today. She denies any complaints. Pain is reasonably well managed Physical exam: General -awake, alert, oriented ?3, not in acute distress, walking in the room Cardiovascular -S1 with S2 Pulmonary - clear to auscultation bilaterally Gastrointestinal - abdomen is soft, nondistended, nontender, bowel sounds positive, there is no rigidity, no rebound Extremities -bilateral foot ulcerations, left foot unchanged since admission Neurological -no focal neurological dysfunction noted Exam Physical Exam Vital Signs: Temp Pulse Resp BP Pulse Ox 36.5 C 84 20 159/87 H 97 09/28/21 12:29 09/28/21 12:29 09/28/21 12:29 09/28/21 12:29 09/28/21 12:29 Objective Lab Results CBC & Chem 7: 09/28/21 05:57 09/28/21 05:57 Microbiology Results Microbiology 09/27/21 12:32 Blood - Left Antecubital Blood Culture - Preliminary No Growth 1 Day 09/27/21 12:28 Blood - Right Antecubital Blood Culture - Preliminary No Growth 1 Day 09/27/21 13:54 Toe,Left Second - Drainage Superficial Wound Culture - Preliminary Heavy Normal Skin Neo 1 Day 09/27/21 13:54 Nasal SARS Antigen (LFIA) - Final Meds Allergies and Active Meds Allergies hydrocodone [From Vicodin] Allergy (Verified 09/27/21 12:00) Hallucinating Steroid Injection Allergy (Uncoded 09/26/21 20:11) Swelling Active Meds: Active Medications Generic Name Dose Route Start Last Admin Trade Name Freq PRN Reason Stop Dose Admin Acetaminophen 650 mg 09/27/21 14:45 Acetaminophen 325 Mg Tablet PO 09/27/22 14:44 Q4H PRN Pain Scale 1 - 5 Amitriptyline HCl 50 mg 09/27/21 22:00 09/27/21 22:27 Amitriptyline 50 Mg Tablet PO 09/27/22 21:59 50 mg HS PAULINO Administration Aspirin 81 mg 09/28/21 09:00 09/28/21 08:54 Aspirin 81 Mg Tablet. PO 09/28/22 08:59 81 mg DAILY PAULINO Administration Atorvastatin Calcium 20 mg 09/27/21 22:00 09/27/21 22:27 Atorvastatin 20 Mg Tablet PO 09/27/22 21:59 Not Given QHS PAULINO Clopidogrel Bisulfate 75 mg 09/28/21 09:00 09/28/21 08:54 Clopidogrel Bisulfate 75 Mg Tablet PO 09/28/22 08:59 75 mg DAILY PAULINO Administration Cyclobenzaprine HCl 10 mg 09/27/21 14:43 09/27/21 22:27 Cyclobenzaprine 10 Mg Tablet PO 09/27/22 14:42 10 mg QHS PRN Administration Muscle Spasm Dextrose 0 gm 09/27/21 14:45 Dextrose 50% In Water 25 Gm/50 Ml Syringe IV-PUSH 09/27/22 14:44 PRN PRN Hypoglycemia Docusate Sodium 200 mg 09/27/21 14:45 Docusate 100 Mg Capsule PO 09/27/22 14:44 BID PRN Constipation Enoxaparin Sodium 40 mg 09/28/21 10:00 09/28/21 10:33 Enoxaparin 40 Mg/0.4 Ml Syringe SUBCUT 09/28/22 09:59 40 mg DAILY@1000 PAULINO Administration Gabapentin 800 mg 09/27/21 18:00 09/28/21 08:54 Gabapentin 800 Mg Tablet PO 09/27/22 17:59 800 mg QID PAULINO Administration Glucose 0 gm 09/27/21 14:45 Dextrose 40% Gel 15 Gm Tube PO 09/27/22 14:44 PRN PRN Hypoglycemia Hydralazine HCl 10 mg 09/27/21 14:45 Hydralazine 20 Mg/Ml Vial IV-PUSH 09/27/22 14:44 Q4H PRN if SBP > 185 Hydromorphone HCl 0.5 mg 09/27/21 22:29 09/28/21 10:33 Hydromorphone 0.5 Mg/0.5 Ml Syringe IV-PUSH 0.5 mg Q6H PRN Administration Severe Pain Ceftaroline Fosamil 600 mg in 100 mls @ 200 mls/hr 09/28/21 02:00 09/28/21 05:35 Teflaro IV Infused Q12H [facility] Infusion Insulin Aspart 0 units 09/27/21 17:00 09/28/21 12:50 Insulin Aspart 300 Units/3 Ml Insuln.Pen SUBCUT 09/27/22 16:59 Not Given TID.WM.HS [facility] Protocol Levothyroxine Sodium 125 mcg 09/28/21 06:30 09/28/21 05:34 Levothyroxine 125 Mcg Tablet PO 09/28/22 06:29 125 mcg DAILY@0630 [facility] Administration Losartan Potassium 50 mg 09/28/21 09:00 09/28/21 08:54 Losartan 50 Mg Tablet PO 09/28/22 08:59 50 mg QAM PAULINO Administration Metoprolol Succinate 50 mg 09/28/21 09:00 09/28/21 08:54 Metoprolol Succinate 50 Mg Tab.Er.24h PO 09/28/22 08:59 50 mg DAILY PAULINO Administration Ondansetron HCl 4 mg 09/27/21 14:45 Ondansetron 4 Mg/2 Ml Vial IV-PUSH 09/27/22 14:44 Q6H PRN Nausea And Vomiting Oxycodone/Acetaminophen 3 tab 09/27/21 15:38 09/27/21 15:52 Oxycodone/Acetaminophen 5-325 Mg Tablet PO 3 tab TID PRN Administration Pain Sodium Chloride 0 ml 09/27/21 12:00 09/28/21 10:34 Sodium Chloride 0.9 % 10 Ml Syringe IV-PUSH 09/27/22 11:59 10 ml PRN PRN Administration Flush A&P - Hospitalist Assessment/Plan (1) Diabetic infection of left foot: Plan 1. Infected diabetic left foot wound, likely due to peripheral arterial diseasewith underlying peripheral neuropathy due to diabetes Wound culture and blood culture pending WBC slightly elevated,11.2 Continue Teflaro Consulted vascular and podiatry, probably patient will need vascular intervention 2. Diabetes mellitus type 2, with peripheral neuropathy Hemoglobin A1c pending Sliding scale 3. Polycythemia, probably due to underlying hypoxia, if no improvement will consider referral to hematology Recheck CBC DVT prophylaxis: Lovenox Documented By: Elise Marie MD 09/28/21 1400 Signed By: <Electronically signed by Elise Marie MD> 09/28/21 1403 [facility] Work Phone: 1([phone] 668-122707-16-2022 History and physical note Author Elise Marie [facility] September 27, 2021 3:34pm Note Date/Time September 27, 2021 2:14 pm [facility] [address] [place] [address] Hospitalist H&P Signed Patient: Ema Neff MR#: [id number] : 1965 Acct:[id number] Age/Sex: 56 / F Adm Date: 2 Loc: Room: [address] [place] [address] Type : ADM IN Attending Dr: Elise Marie MD Copies to: MD Elise Mascorro MD Samantha Mason, DO, RES~ HPI DATE OF EXAMINATION: 09/27/21 CHIEF COMPLAINT: Left foot wound HISTORY OF PRESENT ILLNESS: Mrs. Neff 56-year-old female with past medical history of type 2 diabetes mellitus with neuropathy, peripheral arterial disease s/p multiple interventionsbilateral legs, hypertension, hyperlipidemia, and current smoker that presented to the emergency room for worsening left foot wound. Patient had partial toe amputation of her second toe this past March. History of right second toe amputation. She currently follows with vascular for her PAD. Recently had a thyroidectomy and was taken off blood thinners. Endorses worsening of vascular insufficiency to the left extremity since then. Patient also follows with podiatry, Dr. Ramirez. She states her diabetes is well controlled and was recently started on Ozempic. She does have a home nurse that comes once a week and and patient states she changes her dressings twice daily. Patient has an ulcer on medial aspect of her left foot and wound of second residual toe with exposed bone. She states the past week she has noticed increased swelling and redness with drainage. Denies foul odor. Endorses pain in the left foot at rest. Denies fever/chills. Previous wound cultures have been positive for group B strep and Acinetobacter. In the emergency room patient was hemodynamically stable and afebrile. White blood count was 11.2. Hemoglobin 16.9. X-ray of the left foot showed mild diffuse soft tissue swelling, bone appeared to be exposed with overlying soft tissue erosion, prior amputation of second digit. Blood cultures and wound culture pending. Patient was started on ceftaroline and decision was made to admit patient. Denies chest pain, shortness of breath, abdominal pain, nausea/vomiting/diarrhea. Review of Systems Review of Systems All other systems reviewed & are negative unless noted below or in HPI [facility] Vaccinated for COVID-19?: Yes Medical History (Updated 09/27/21 @ 14:51 by Anusha Early DO, RES) Arthritis Back pain Bronchitis Cellulitis DDD (degenerative disc disease) Diabetes Diabetes mellitus, type 2 Difficulty swallowing per pt since dx with thyroid problems DJD (degenerative joint disease) Eczema GERD (gastroesophageal reflux disease) since being dx with thyroid problems Gout History of amputation of toe History of CVA in adulthood rt sided weakness Hyperlipidemia Hypertension Hyperthyroidism Menopause Neuropathy Osteoporosis Sleep apnea no machine Smoker quit 03/2021 Tachycardia Ulcerative colitis Surgical History History of carpal tunnel surgery of right wrist History of cholecystectomy History of endometrial ablation History of surgery on wrist carpal tunnel and ulnar nerve rt arm; carpal tunnel left History of tonsillectomy History of tubal ligation Hx of angioplasty bilateral legs x2, 2 stents on R Hx of cataract surgery bilateral S/P angioplasty with stent rt leg Family History Father Bladder cancer Prostate cancer Diabetes Mother H/O blood clots Social History Smoking Status: Current some day smoker Tobacco Type: cigarettes Substance Use Type: None Social History Comments: Patient is . She resides with her spouse. She uses no DME. She is on disability due to chronic low back pain which she feels is from a work injury. Meds Medications and Allergies Allergies hydrocodone [From Vicodin] Allergy (Verified 09/27/21 12:00) Hallucinating Steroid Injection Allergy (Uncoded 09/26/21 20:11) Swelling Home Medications losartan 50 mg tablet 50 mg PO QAM 11/02/17 [History Confirmed 09/27/21] fluticasone propionate 50 mcg/actuation nasal spray,suspension (Flonase Allergy Relief) 1 spray INTRANASAL QHS PRN 03/06/18 [History Confirmed 09/27/21] amitriptyline 25 mg tablet 50 mg PO HS 01/21/21 [History Confirmed 09/27/21] gabapentin 800 mg tablet 800 mg PO QID 01/21/21 [History Confirmed 09/27/21] glimepiride 4 mg tablet 4 mg PO QAM 01/21/21 [History Confirmed 09/27/21] meloxicam 15 mg tablet 15 mg PO DAILY 01/21/21 [History Confirmed 09/27/21] meclizine 25 mg tablet 25 mg PO QHS PRN 02/12/21 [History Confirmed 09/27/21] nystatin 100,000 unit/gram topical ointment 1 applic TOPICAL TID PRN 03/10/21 [History Confirmed 09/27/21] aspirin 81 mg tablet,delayed release 81 mg PO DAILY 05/02/21 [History Confirmed 09/27/21] atorvastatin 20 mg tablet (Lipitor) 20 mg PO QHS 05/02/21 [History Confirmed 09/27/21] clopidogrel 75 mg tablet 75 mg PO DAILY 05/02/21 [History Confirmed 09/27/21] cyclobenzaprine 5 mg tablet 10 mg PO QHS PRN 05/02/21 [History Confirmed 09/27/21] metoprolol succinate 25 mg tablet,extended release 24 hr 25 mg PO DAILY 05/02/21[History Confirmed 09/27/21] doxycycline hyclate 100 mg tablet 100 mg PO DAILY 09/27/21 [History Confirmed 09/27/21] levothyroxine 125 mcg tablet 125 mcg PO DAILY 09/27/21 [History Confirmed 09/27/21] oxycodone-acetaminophen 5 mg-325 mg tablet (Percocet) 3 tab PO TID PRN 09/27/21 [History Confirmed 09/27/21] Exam Physical Exam Vital Signs: Temp Pulse Resp BP Pulse Ox 98.1 F 89 20 163/67 H 97 09/27/21 12:00 09/27/21 12:00 09/27/21 12:00 09/27/21 12:00 09/27/21 12:00 Narrative: General: Awake, well-appearing, nontoxic HEENT: Normocephalic, atraumatic, moist mucous membranes Cardiovascular: Regular rhythm and rate, no murmurs Respiratory: Clear to auscultation bilaterally, no wheezing Gastrointestinal: Soft, nondistended, no guarding, nontender : Deferred Skin: Mild erythema and swelling of the left foot Extremities: Left second toe partial amputation with bone exposed and drainage, ulcer on medial aspect left foot Neuro: Alert and oriented, no focal deficits Psych: Congruent mood, pleasant, cooperative Results Lab Results Labs: Laboratory Last Values Corrected WBC 11.2 X10E3/uL (3.8-11.6) 09/27/21 12:28 Uncorrected WBC Count 11.2 x10E3/uL (4.5-11.0) H 09/27/21 12:28 RBC 5.37 x10E6/uL (3.60-5.00) H 09/27/21 12:28 Hgb 16.9 g/dL (11.8-15.4) H 09/27/21 12:28 Hct 50.8 % (34.0-46.4) H 09/27/21 12:28 MCV 94.6 fl (80-100) 09/27/21 12:28 MCH 31.5 pg (24.7-34.3) 09/27/21 12:28 MCHC 33.3 g/dL (32.0-35.0) 09/27/21 12:28 RDW 16.2 % (11.9-15.3) H 09/27/21 12:28 Plt Count 343 x10E3/uL (150-450) 09/27/21 12:28 MPV 7.3 fl (6.3-10.7) 09/27/21 12:28 Neut % (Auto) 67.7 % (.) 09/27/21 12: Lymph % (Auto) 22.3 % (.) 09/27/21 12:28 [place] % (Auto) 5.6 % (.) 09/27/21 12:28 Eos % (Auto) 3.5 % (.) 09/27/21 12:28 Baso % (Auto) 0.9 % (.) 09/27/21 12: Neut # (Auto) 7.6 x10E3/uL (1.8-7.7) 09/27/21 12: Lymph # (Auto) 2.5 x10E3/uL (1.00-4.8) 09/27/21 12: [place] # (Auto) 0.6 x10E3/uL (0.0-0.8) 09/27/21 12: Eos # (Auto) 0.4 x10E3/uL (0.0-0.45) 09/27/21 12: Baso # (Auto) 0.1 x10E3/uL (0.0-0.2) 09/27/21 12: Nucleated RBC % (auto) 0.0 % (0-0.5) 09/27/21 12: ESR 21 mm/hr (0-29) 09/27/21 12:28 PHA Creatinine Clear 80.93 09/27/21 12:28 Sodium 138 mmol/L (136-146) 09/27/21 12:28 Potassium 4.2 mmol/L (3.5-5.1) 09/27/21 12: Chloride 98 mmol/L (95-114) 09/27/21 12:28 Carbon Dioxide 29.5 mmol/L (22.0-30.0) 09/27/21 12:28 BUN 13 mg/dL (9-23) 09/27/21 12:28 Creatinine 0.99 mg/dL (0.44-1.03) 09/27/21 12:28 Est GFR ( Amer) > 60 mL/Min 09/27/21 12:28 Est GFR (Non-Af Amer) 58 mL/Min 09/27/21 12:28 Glucose 92 mg/dL (70-100) 09/27/21 12:28 Calcium 9.5 mg/dL (8.2-10.2) 09/27/21 12:28 Total Bilirubin 0.8 mg/dL (0.3-1.2) 09/27/21 12:28 AST 20 U/L (10-42) 09/27/21 12:28 ALT 13 U/L (10-60) 09/27/21 12:28 Alkaline Phosphatase 82 U/L (32-92) 09/27/21 12:28 C-Reactive Prot, Quant 0.6 mg/dL (0.0-1.0) 09/27/21 12:28 Total Protein 7.1 gm/dL (6.1-7.9) 09/27/21 12:28 Albumin 3.6 gm/dL (3.2-5.5) 09/27/21 12:28 Globulin 3.5 gm/dL 09/27/21 12:28 Albumin/Globulin Ratio 1.0 09/27/21 12:28 A&P - Hospitalist Assessment/Plan (1) Diabetic infection of left foot: Plan 1. Infected diabetic left foot wound, likely due to peripheral arterial disease Wound culture and blood culture pending WBC slightly elevated,11.2 Continue Teflaro Check CRP Consult vascular and podiatry 2. Diabetes mellitus type 2, with neuropathy Recheck A1c Sliding scale 3. Polycythemia, probably due to underlying hypoxia Recheck CBC IV fluids DVT prophylaxis: Remyx Patient has been seen and examined today together with medical referral coordinator Dr. Early. H&P written by her as above. The patient has been seen and examined. I personally obtained the mccord and critical portions of the history and physical exam. I reviewed the chart, the team's documentation, and discussed the patientcare with the team. I agree with the team's medical decision making and have edited the note to reflect my clinical findings and my assessment and plan. In emergency room Doppler ultrasound was done and there was faint pulse noted inleft ADP. Extremity is warm to touch with violaceous discoloration and exposed bone noted with some purulent drainage. Patient is hemodynamically stable with minimal leukocytosis. We will check CRP. Continue broad-spectrum antibiotics. Await wound cultures. We will consult vascular and podiatry for further evaluation. Patient is ex-smoker, she is telling me then since March she is smoked only 2 cigarettes. She is using nicotine patch. Barney Marie MD Documented By: Anusha Early DO, RES 09/27/21 1355 Signed By: <Electronically signed by DO JESUS Early> 09/27/21 1455 <Electronically signed by Elise Marie MD> 09/27/[address] [facility] Work Phone: 1(461) 640-810907-14-2022 Evaluation note* Encounter Date Diagnosis Assessment Notes Treatment Notes Treatment Clinical Notes Sep, Pre-op testing (ICD-10 - Z01.818) [facility] Other 06-15-2022 History of Present illness Narrative* Kilo Shaw DPM - 08/27/2021 8:39 AM EDT [facility] Department of Orthopedics [facility] Orthopedic Surgery Name: Ema Neff Date of Service: August 27, 2021 CC/HPI: This 56 year old very pleasant female patient presents to the clinic today sent here for a second opinion regarding bilateral second toe amputations due to gangrene/infection due touncontrolled diabetes mellitus type 2 with peripheral vascular complications. She said that the only took part of her left second toe and this has been like this since February. She is scheduled to see the vascular surgeon again. They have her putting on Normal Saline wet-to-dry with some iodine impregnated Vaseline gauze on the right foot wound. She has 2 stents in her right lower extremity No past medical history on file. Current Outpatient Medications Medication Sig amitriptyline (ELAVIL) 25 mg tablet Take 25 mg by mouth daily at bedtime. atorvastatin (LIPITOR) 20 mg tablet Take 20 mg by mouth once daily. clopidogrel (PLAVIX) 75 mg tablet Take 75 mg by mouth once daily. cyclobenzaprine (FLEXERIL) 10 mg tablet TAKE 1 TABLET BY MOUTH AT BEDTIME DAILY NEEDED DULoxetine (CYMBALTA) 30 mg capsule Take 30 mg by mouth once daily. fluticasone (FLONASE) 50 mcg/actuation nasal spray INHALE TWO SPRAYS NASALLY EVERY DAY IN EACH NOSTRIL NEEDED gabapentin (NEURONTIN) 800 mg tablet Take 800 mg by mouth four times daily. glimepiride (AMARYL) 4 mg tablet Take 4 mg by mouth once daily. levothyroxine (SYNTHROID) 100 mcg tablet TAKE 1 TABLET in the morning on an empty stomach orally once a day 60 days losartan (COZAAR) 50 mg tablet Take 50 mg by mouth once daily. meclizine (ANTIVERT) 25 mg tab Take 25 mg by mouth once daily as needed. meloxicam (MOBIC) 15 mg tablet Take 15 mg by mouth once daily. methIMAzole (TAPAZOLE) 10 mg tablet Take 10 mg by mouth once daily. metoprolol succinate ER (TOPROL XL) 25 mg 24 hr tablet Take 25 mg by mouth once daily. nystatin (MYCOSTATIN) ointment 1 (ONE) application to skin TWICE DAILY ondansetron (ZOFRAN) 8 mg tablet Take 8 mg by mouth every 8 hours as needed. OZEMPIC 0.25 mg or 0.5 mg(2 mg/1.5 mL) pen injector INJECT 0.5MG SUBCUTANEOUSLY ONCE WEEKLY FOR FOUR WEEKS THEN 1MG ONCE A WEEK propylthiouracil 50 mg tablet Take 50 mg by mouth twice daily. triamcinolone acetonide (KENALOG) 0.5 % cream APPLY TO THE AFFECTED AREA(S) EXTERNALLY TWICE DAILY NEEDED No current facility-administered medications for this visit. ALLERGIES Not on File No past surgical history on file. No family history on file. Social History Tobacco Use Smoking status: Not on file Smokeless tobacco: Not on file Substance Use Topics Alcohol use: Not on file Drug use: Not on file Physical Exam: The patient is alert and oriented x 3 in no apparent acute distress. Vascular: Pedal pulses are palpable DP and PT barely palpable right and nonpalpable left. CFT is round 3 seconds digits 1-5 bilateral. Skin temperature is warm to cool from anterior knees to toes bilateral. Some varicosities bilateral. Absent pedal hair growth bilateral. The patient has substantial dependent rubor of both feet Neuro: Light touch is intact to all quadrants of foot and ankle with no apparent sensory deficits bilateral. Protective sensation is intact to the foot when tested with the 5.07gram SWM bilateral. Derm: She has a wound on her second toe amputation site approximately 3 x 2.5 cm. There is a secondgangrenous area at the stump of her left second toe which involves entire stump approximately 2 x 2cm without purulence at all sites. There minimal drainage of the right foot wound with some greenish-blue hue. Ortho: Muscle strength is +5/5 for all pedal groups bilateral. Ankle joint, subtalar joint, 1st MPJand lesser MPJ ROM's are full and without pain or crepitus bilateral. Radiographs: Deferred Assessment: Status post bilateral second toe amputation residual gangrene of left second toe stump due to apparent advanced PVD/flow issues Status post right second toe amputation with apparent residual wound Plan: Initial Podiatric Office Visit- the etiology of the patient's complaint along with treatment options were explained to the patient in detail. Discussed results of clinical examination with the patient in detail along with treatment options Painted all sites with Betadine after cleansed with normal saline and drying. Applied large Band-Aid to left second toe stump. Advised patient she needs to talk to the vascular surgeon about maximizing her flow and effort to heal the wound plus I recommend finishing removal of the stump of the second toe that remains that is gangrenous but dry. On the right foot recommend wound care. Also evaluate consideration for empiric therapy with Cipro however patient had 2 drug interactions. 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 [facility] Other 05-04-2022 Evaluation note* Encounter Date Diagnosis Assessment Notes Treatment Notes Treatment Clinical Notes July, PAD (peripheral artery disease) (ICD-10 - I73.9) This patient is a left foot ulcer nonpalpable pedal pulse. She is at risk for limb loss. She has critical limb ischemia. I recommending a left leg angiogram with possible intervention in this patient likely has tibial disease. This patient understands and wishes to proceed she is very familiar with this process as she is already gone through this 3 times. She is at risk for amputation. She is aware of this. [facility] Other 12-23-2021 Evaluation note* Encounter Date Diagnosis Assessment Notes Treatment Notes Treatment Clinical Notes Feb, PAD (peripheral artery disease) (ICD-10 - I73.9) Feb, Critical limb ischemia of both lower extremities (ICD-10 - I70.223) Now has tissue loss of both of her lower extremities. She has severe microvascular disease in the foot due to diabetes. She has no flow beyond the ankle bilaterally. This patient will likely require amputation of her leg on the right side. I anticipate a very poor prognosis for the right foot. The patient was in tears today with this discussion. I will try 1 more attempt at limb salvage of the right lower extremity with percutaneous intervention to try and open up the tibial arteries. However I did caution her that the highest likelihood of success was with the first intervention. That did not result in direct inline flow to the foot. Then we will have to perform a left leg intervention to try and save the left limb. Unfortunately most disease in lower extremities is symmetrical and if that is the case, she was likely to lose both legs in the future. This was an extremely difficult discussion had with this patient a couple days before [place]. I did try to call Dr. Ramirez to explain the situation. [facility] Other 10-06-2021 Hospital Discharge instructions Additional Instructions -Elevate feet above the heart level throughout the day avoid swelling. -Maintain a healthy low-fat oral protein diet. -Any weightbearing/out of bed to be with postop shoe intact bilaterally with walker for further offloading assistance. -Patient sponge bathe feet around open wound she should not submerge feet under water or take showers of her feet as risk for further contamination is quite likely. -Patient contact office at [phone] to schedule for next Wednesday office visit. -Change dressings daily do not allow the open wounds to be exposed to air. -Resume previous dressing change instructions -Vashe solution to ulcer bilateral feet to clean, wipe away any non viable tissue, appy vashe soaked gauze to ulcer x 5 mintues, Apply Medihoney then cover with dry sterile dressing. Wash feet daily with warm soapy antibacterial soap. Dry well. Especcialy in between toes. Apply eucerin cream to non-open areas, not between toes.[facility] Work Phone: 1(344) [phone] Progress note Author Ryland Liu [facility] February 01, 2023 2:51pm Note Date/Time February 01, 2023 2:00pm [facility] [address] [place] [address] Hospitalist Progress Note Signed Patient: Ema Neff MR#: [id number] : 1965 Acct:[id number] Age/Sex: 58 / F Adm Date: 3 Loc: Room: 6M3327-0 Type: ADM IN Attending Dr: Ryland Liu MD Copies to: ~ Date of Service: 02/01/2023 Subjective Subjective Narrative: Patient seen and assessed after PICC line placed today. She is in reasonably good spirits. She remained afebrile overnight and had no acute events occur. She is planned to have surgical intervention for her L third toe gangrenous-appearing toe. Patient also does complain of persistent diarrhea. C. difficileis negative, she does request Imodium. Exam Physical Exam Vital Signs: Temp Pulse Resp BP Pulse Ox O2 Del Method O2 Flow Rate 98 F 75 20 111/79 98 Room Air 1 02/01/23 10:53 02/01/23 10:53 02/01/23 10:53 02/01/23 10:53 02/01/23 10:53 02/01/23 12:46 01/29/23 15:55 Narrative: Constitutional: Middle-aged WF, resting in bed in no acute distress HEENT: Moist mucous membranes, neck supple, somewhat poor dentition Cardiovascular: RRR, no M/R/G, normal S1 and S2 Respiratory: Clear to auscultation bilaterally, no wheezes, rales or rhonchi GI: Soft, obese abdomen, nontender to palpation throughout : Deferred Extremities: No clubbing, cyanosis noted. Patient with amputation of the left second digit of the foot with dressing covering. Third digit of the left toe isdarkened and hyperpigmented distally. Neuro: AAOx3, no focal neuro deficits Skin: Third digit of left foot noted as above Psych: Calm, cooperative and conversant Objective Lab Results 02/01/23 05:12 02/01/23 05:12 Microbiology Results Microbiology 01/28/23 16:46 Blood - Right Antecubital Blood Culture - Preliminary No Growth 3 Days 01/28/23 16:30 Blood - Left Antecubital Blood Culture - Preliminary No Growth 3 Days 01/29/23 15:55 Foot,Left - Ulcer Superficial Wound Culture - Final Corynebacterium striatum group Meds Allergies and Active Meds Allergies hydrocodone [From Vicodin] Allergy (Verified 01/28/23 14:35) Hallucinating Steroid Injection Allergy (Uncoded 01/28/23 14:35) Swelling Active Meds: Active Medications Generic Name Dose Route Start Last Admin Trade Name Freq PRN Reason Stop Dose Admin Acetaminophen 650 mg 01/28/23 18:40 Acetaminophen 325 Mg Tablet PO 01/28/24 18:39 Q6HR PRN Pain Scale 1 - 3 or fever Aspirin 81 mg 01/29/23 09:00 02/01/23 08:25 Aspirin 81 Mg Tablet.Dr PO 01/29/24 08:59 81 mg QAM PAULINO Administration Atorvastatin Calcium 40 mg 01/29/23 09:00 02/01/23 08:25 Atorvastatin 40 Mg Tablet PO 01/29/24 08:59 40 mg QAM PAULINO Administration Clopidogrel Bisulfate 75 mg 01/29/23 09:00 02/01/23 08:35 Clopidogrel Bisulfate 75 Mg Tablet PO 01/29/24 08:59 75 mg QAM PAULINO Administration Collagenase 1 applic 01/29/23 11:00 02/01/23 08:28 Collagenase 250 Unit/Gm Oint 30 Gm Tube TOPICAL 01/29/24 10:59 1 applic DAILY PAULINO Administration Sodium Chloride 500 ml/ 0 ml 02/01/23 17:00 Cefazolin Sodium 1 gm IRRIGATION 02/01/23 17:01 ONCE ONE Dextrose 0 gm 01/28/23 18:40 01/29/23 05:35 Dextrose 50% In Water 25 Gm/50 Ml Syringe IV-PUSH 01/28/24 18:39 25 gm PRN PRN Administration Hypoglycemia Docusate Sodium 100 mg 01/28/23 21:00 02/01/23 08:28 Docusate 100 Mg Capsule PO 01/28/24 20:59 Not Given BID PAULINO Gabapentin 800 mg 01/28/23 22:00 02/01/23 08:25 Gabapentin 800 Mg Tablet PO 01/28/24 21:59 800 mg QID PAULINO Administration Glucose 0 gm 01/28/23 18:40 Dextrose 40% Gel 15 Gm Tube PO 01/28/24 18:39 PRN PRN Hypoglycemia Hydralazine HCl 10 mg 01/28/23 18:40 Hydralazine 20 Mg/Ml Vial IV-PUSH 01/28/24 18:39 Q4H PRN Hypertension Hydromorphone HCl 1 mg 01/29/23 18:00 02/01/23 13:06 Hydromorphone 1 Mg/Ml Syringe IV-PUSH 1 mg Q4H PRN Administration Pain Scale 8 - 10 Lactated Ringer's 1,000 mls @ 75 mls/hr 01/28/23 18:45 02/01/23 08:23 Lactated Ringers IV 01/28/24 18:44 75 mls/hr .[id number] PAULINO Administration Piperacillin Sod/Tazobactam Sod 3.375 gm in 100 mls @ 200 mls/hr 01/28/23 20:30 02/01/23 08:35 Zosyn IV 200 mls/hr Q6H PAULINO Administration Vancomycin HCl 1 gm in 250 mls @ 250 mls/hr 01/31/23 06:30 02/01/23 05:56 Vancomycin IV 250 mls/hr Q12H PAULINO Administration Lactated Ringer's 1,000 mls @ 20 mls/hr 02/01/23 08:00 02/01/23 08:24 Lactated Ringers IV 02/02/23 07:59 Not Given .Q24H ONE Insulin Aspart 0 units 01/28/23 22:00 02/01/23 08:21 Insulin Aspart 300 Units/3 Ml Insuln.Pen SUBCUT 01/28/24 21:59 Not Given TID.[facility] Protocol Levothyroxine Sodium 150 mcg 01/29/23 06:30 02/01/23 05:56 Levothyroxine 150 Mcg Tablet PO 01/29/24 06:29 150 mcg DAILY@0630 PAULINO Administration Lidocaine HCl 0.1 ml 02/01/23 03:05 Lidocaine 1% 50 Ml Vial INTRADERMA PREOP PRN Venipuncture x 1 Dose Loperamide HCl 2 mg 02/01/23 13:57 Loperamide 2 Mg Capsule PO 02/01/24 13:56 Q2H PRN Diarrhea Losartan Potassium 50 mg 01/29/23 09:00 02/01/23 08:25 Losartan 50 Mg Tablet PO 01/29/24 08:59 50 mg QAM PAULINO Administration Metoprolol Succinate 50 mg 01/29/23 09:00 02/01/23 08:25 Metoprolol Succinate 50 Mg Tab.Er.24h PO 01/29/24 08:59 50 mg QAM PAULINO Administration Ondansetron HCl 4 mg 01/28/23 18:40 02/01/23 10:11 Ondansetron 4 Mg/2 Ml Vial IV-PUSH 01/28/24 18:39 4 mg Q8H PRN Administration Nausea And Vomiting Oxycodone/Acetaminophen 2 tab 01/28/23 18:46 02/01/23 08:35 Oxycodone/Acetaminophen 5-325 Mg Tablet PO 2 tab Q6H PRN Administration Pain Sodium Chloride 0 ml 01/28/23 14:35 02/01/23 10:08 Sodium Chloride 0.9 % 10 Ml Syringe IV-PUSH 01/28/24 14:34 10 ml PRN PRN Administration Flush Sodium Chloride 0 ml 02/01/23 03:05 Sodium Chloride 0.9 % 10 Ml Syringe IV-PUSH 02/01/24 03:04 PRN PRN Flush Sodium Chloride 0 ml 02/01/23 09:00 Sodium Chloride 0.9 % 10 Ml Syringe IV-PUSH 02/01/24 08:59 PRN PRN Flush Vancomycin HCl 1 each 01/28/23 18:40 Vancomycin - Pharmacy Dosing 1 Each Miscell IV ONCE PRN ZZ.Pharmacy Consult Protocol A&P - Hospitalist Assessment/Plan (1) Dry gangrene: (2) Diabetic foot infection: (3) PVD (peripheral vascular disease): Plan # L 3rd toe dry gangrene with surrounding cellulitis Apparently has improved in appearance. PICC line placed today. - worsened due to diabetes and PVD - dropped phone on foot 1 week ago and toe progressed to gangrene with purulence - XR with cellulitis, but no OM noted - MRI with soft tissue swelling consistent with cellulitis, but no evidence of OM - blood and wound cultures obtained - started on empiric IV abx - will continue - podiatry, vascular surgery, and ID consulted - appreciate recs - sp angiogram and stent placed in LLE 01/29 - plan for surgical intervention on L 3rd toe today 02/01 - holding anticoagulation - pain control - PT/OT when able # HTN/HLD/PVD - cont home meds # Hypothyroidism - cont home meds # DM2 - ISS while admitted. Resume home regimen at discharge # DVT: holding for possible surgical intervention by podiatry Disposition: Pt with progressing L 3rd toe gangrene with surrounding cellulitis s/p angiogram and stent placed on 01/29 and plan for surgical intervention on Thursday 02/01. ID, vascular surgery and podiatry consulted. Cont empiric abx. PICC line is in place. Continue to follow cultures. PT/OT after surgical intervention today. Likely discharge home tomorrow Documented By: Ryland Liu MD 3 1352 Signed By: <Electronically signed by Ryland Liu MD> 02/01/23 0244 [facility] Work Phone: Consult note Author Zaid Mon [facility] November 04, 2021 4:54pm Note Date/Time November 04, 2021 8: 49am [facility] [address] [place] [address] Vascular Surgery Consult Note Signed Patient: Ema Neff MR#: [id number] : 1965 Acct:[id number] Age/Sex: 56 / F Adm Date: 2 Loc: Room: [address] [place] [address] Type: ADM IN Attending Dr: Dean Rodriguez MD Copies to: MD Alejandra Neal APRN Matthew T Langenberg, MD Robert L Hill, MD~ HPI Consult HPI Reason for consult: Post op wound infection History of present illness: Ms. Lincoln Morgan is a well-known patient to our office. She underwent successful left leg anterior tibial to peroneal artery bypass on 10/13/2021. She was seen in our office on 10/29/2021 and the sami from bypass incisions were removed. At that point in time she did have a little bit of edema with some serosanguineous drainage but no signs of infection Or wound dehiscence. She presented through the emergency department over the weekend and once again yesterday with increased pain, drainage, and redness to the surgical wounds and reporting wound opening up . She denies any fevers or chills. She denies any drainage or odor. No chest pain, no shortness of breath, no additional complaints. Wound cultures were obtained in the emergency department over the weekend and remain pending. Blood cultures have also been obtained since her admission. Her pain is well controlled. Vascular surgery has been consulted for further evaluation. cc:: CC: Dean Rodriguez MD Data of Consult Consult date: 11/04/2021 Requesting Physician: Dean Rodriguez MD Review of Systems Review of Systems All other systems reviewed & are negative unless noted below or in HPI PMFSH Vaccinated for COVID-19?: Yes Medical History Anxiety Arthritis Back pain Bronchitis Cellulitis DDD (degenerative disc disease) Depression Diabetes Diabetes mellitus, type 2 DJD (degenerative joint disease) Eczema GERD (gastroesophageal reflux disease) since being dx with thyroid problems Gout History of amputation of toe History of CVA in adulthood rt sided weakness Hyperlipidemia Hypertension Hyperthyroidism Menopause Neuropathy Osteoporosis Sleep apnea no machine Smoker quit 03/2021 Tachycardia Ulcerative colitis Surgical History History of carpal tunnel surgery of right wrist History of cholecystectomy History of endometrial ablation History of surgery on wrist carpal tunnel and ulnar nerve rt arm; carpal tunnel left History of thyroidectomy History of tonsillectomy History of tubal ligation Hx of angioplasty bilateral legs x2, 2 stents on R Hx of cataract surgery bilateral S/P angioplasty with stent rt leg Family History Father Bladder cancer Prostate cancer Diabetes Mother H/O blood clots Social History Smoking Status: Former smoker Tobacco Type: cigarettes Substance Use Type: None Social History Comments: Patient is . She resides with her spouse. She uses no DME. She is on disability due to chronic low back pain which she feels is from a work injury. Allergies & Active Medications Medications and Allergies Allergies hydrocodone [From Vicodin] Allergy (Verified 11/03/21 21:01) Hallucinating Steroid Injection Allergy (Uncoded 11/03/21 21:01) Swelling Exam Physical Exam Vital Signs: Temp Pulse Resp BP Pulse Ox O2 Del Method 97.3 F L 70 18 124/86 97 Room Air 11/04/21 02:35 11/04/21 02:35 11/04/21 02:35 11/04/21 02:35 11/04/21 02:35 11/04/21 02:35 Narrative: 56-year-old female, no acute distress. She is alert and oriented x3. She is resting comfortably in her bed this morning awaiting her breakfast. No shortness of breath with conversation today. Focused assessment of the left lower extremity shows surgical wound to the medial thigh region which superficial wound dehiscence just into the subcutaneous fat. Small amount of serosanguineous drainage noted to this area. Minimal erythema at the wound edges. The distal incision in the medial calf region also shows some wound dehiscence with some purulent drainage from the distal portion of the wound. There is a small palpable pocket of pus in this region and I am able to expel a small amount of this drainage with palpation today. This is very painful for her. There is some additional erythema in this area. She is able to move her foot and toes without issue. She has a strong posterior tibial signal with hand-held Doppler. Results Labs CBC & Chem 7: 11/04/21 04:34 11/04/21 04:34 Labs: Laboratory Results - last 24 hr 11/04/21 11/04/21 11/04/21 00:55 00:55 01:28 Corrected WBC 12.1 H Uncorrected WBC Count 12.1 H RBC 4.13 Hgb 12.0 Hct 38.6 MCV 93.5 MCH 29.1 MCHC 31.1 L RDW 17.7 H Plt Count 365 MPV 7.2 Neut % (Auto) 59.8 Lymph % (Auto) 28.7 [place] % (Auto) 6.5 Eos % (Auto) 3.7 Baso % (Auto) 1.3 Neut # (Auto) 7.3 Lymph # (Auto) 3.5 [place] # (Auto) 0.8 Eos # (Auto) 0.4 Baso # (Auto) 0.2 Nucleated RBC % (auto) 0.1 PHA Creatinine Clear 88.97 Sodium 137 Potassium 4.0 Chloride 99 Carbon Dioxide 29.3 BUN 9 Creatinine 0.90 Est GFR ( Amer) > 60 Est GFR (Non-Af Amer) > 60 Glucose 112 H POC Glucose Calcium 8.8 SARS Antigen (LFIA) Negative 11/04/21 11/04/21 11/04/21 04:34 04:34 06:29 Corrected WBC 12.3 H Uncorrected WBC Count 12.3 H RBC 3.83 Hgb 11.3 L Hct 36.1 MCV 94.3 MCH 29.4 MCHC 31.2 L RDW 17.7 H Plt Count 337 MPV 7.2 Neut % (Auto) 59.9 Lymph % (Auto) 29.5 [place] % (Auto) 5.6 Eos % (Auto) 3.9 Baso % (Auto) 1.1 Neut # (Auto) 7.4 Lymph # (Auto) 3.6 [place] # (Auto) 0.7 Eos # (Auto) 0.5 H Baso # (Auto) 0.1 Nucleated RBC % (auto) 0.1 PHA Creatinine Clear 91.27 Sodium 136 Potassium 3.8 Chloride 101 Carbon Dioxide 28.3 BUN 8 L Creatinine 0.88 Est GFR ( Amer) > 60 Est GFR (Non-Af Amer) > 60 Glucose 135 H POC Glucose 109 Calcium 8.0 L SARS Antigen (LFIA) Microbiology Microbiology: 11/04/21 01:28 Nasal SARS Antigen (LFIA) - Final A&P - Vascular (1) Diabetes mellitus: Qualifiers: Diabetes mellitus type: type 2 Code(s): E11.9 - Type 2 diabetes mellitus without complications Status: Chronic (2) Morbid obesity due to excess calories: Code(s): E66.01 - Morbid (severe) obesity due to excess calories Status: Chronic (3) HTN (hypertension), benign: Code(s): E78.5 - Hyperlipidemia, unspecified Status: Chronic (4) Infection: Code(s): B99.9 - Unspecified infectious disease Status: Acute (5) Wound infection: Plan: This patient has incisional wound infection. She remains afebrile while in the hospital. Cultures have been obtained and she has been started on IV Vanco and Zosyn and managed by the hospitalist. This patient will likely require I&D of this wound. We will tentatively plan for this for tomorrow. This is Dr. Mon dictating. I did see this patient on rounds on 11/04/2021. The wound was fully evaluated. The patient has excellent cap refilland excellent Doppler signals in the left foot. I agree there is some dehiscence of the wound. There is also some cellulitis and erythema around the wound. I recommend trip to the operating room for irrigation and washout debridement cultures and placement of a wound VAC. This is explained to the patient in detail she understands and wishes to proceed we will plan for this tomorrow she will be n.p.o. at midnight. I am pleased with the bypass I believeto be intact and she has excellent blood supply to her left foot. Code(s): T14.8XXA - Other injury of unspecified body region, initial encounter; L08.9 - Local infection of the skin and subcutaneous tissue, unspecified Status: Acute Documented By: Alejandra Middleton APRN 11/04/21 0 846 Signed By: <Electronically signed by NAOMI Middleton> 11/04/21 0849 <Electronically signed by Zaid Mon MD> 11/04/21 8644 [facility] Work Phone: Consult note Author Rolando Sykes [facility] January 29, 2023 11:28am Note Date/Time January 29, 2023 11:24am [facility] [address] [place] [address] Infect. Disease Consult Note Signed Patient: Ema Neff MR#: [id number] : 1965 Acct:[id number] Age/Sex: 58 / F Adm Date: 3 Loc: 4N Room: 7Z5425-2 Type: ADM IN Attending Dr: Casa Givens DO Copies to: DO Rolando Lane MD Robert L Hill, MD~ HPI Data of Consult Consult date: 01/29/23 Requesting Physician: Casa Givens DO Primary Care Provider: Jarvis Thrasher MD Consult Narrative History of present illness: Ms. Neff is a 58 year old female who is known to me from previous surgery whenshe had her second toe amputated about a year ago. She continues to follow withDr. Sierra'sacha due to a small ulceration at the previous surgical site but generally states it has not gotten infected and she has been doing status quo. Few weeks back she dropped her cell phone on her third toe and this prompted things to worsen with this third toe becoming black with a necrotic skin lesion and swelling erythema and increased pain noted. She was just seen by Dr. Mon who is planning an angio to evaluate her blood supply. Patient is diabetic but has not been eating much due to the discomfort she is having in hertoe and is also having associated nausea. Her sugars have been on the low side since she has not been eating. I was consulted for antibiotic management CC: Casa Givens, DO Review of Systems Review of Systems All other systems reviewed & are negative unless noted below or in HPI [facility] Medical History Anxiety Arthritis Back pain Bronchitis Cellulitis DDD (degenerative disc disease) Depression Diabetes Diabetes mellitus, type 2 DJD (degenerative joint disease) Eczema GERD (gastroesophageal reflux disease) since being dx with thyroid problems Gout History of amputation of toe History of CVA in adulthood rt sided weakness Hyperlipidemia Hypertension Hyperthyroidism Menopause Neuropathy Osteoporosis Retinal artery occlusion right eye, is receiving injections. Sleep apnea no machine Smoker quit 03/2021 Tachycardia Ulcerative colitis Surgical History History of carpal tunnel surgery of right wrist History of cholecystectomy History of endometrial ablation History of surgery on wrist carpal tunnel and ulnar nerve rt arm; History of thyroidectomy History of tonsillectomy History of tubal ligation Hx of angioplasty bilateral legs x2, 2 stents on R Hx of cataract surgery bilateral S/P angioplasty with stent rt leg and left leg graft Family History Father Bladder cancer Prostate cancer Diabetes Mother H/O blood clots Social History Smoking Status: Former smoker Tobacco Type: cigarettes Substance Use Type: None Social History Comments: housing pt lives in mobile home Allergies and Medications Allergies and Active Meds Allergies hydrocodone [From Vicodin] Allergy (Verified 01/28/23 14:35) Hallucinating Steroid Injection Allergy (Uncoded 01/28/23 14:35) Swelling Active Medications Acetaminophen (Acetaminophen 325 Mg Tablet) 650 mg PO Q6HR PRN PRN Reason: Pain Scale 1 - 3 or fever Stop: 01/28/24 18:39 Aspirin (Aspirin 81 Mg Tablet.) [facility] Stop: 01/29/24 08:59 Last Admin: 01/29/23 09:04 Dose: 81 mg Atorvastatin Calcium (Atorvastatin 40 Mg Tablet) 40 mg PO QAM [facility] Stop: 01/29/24 08:59 Last Admin: 01/29/23 09:04 Dose: 40 mg Clopidogrel Bisulfate (Clopidogrel Bisulfate 75 Mg Tablet) 75 mg PO QAM [facility] Stop: 01/29/24 08:59 Last Admin: 01/29/23 09:04 Dose: 75 mg Collagenase (Collagenase 250 Unit/Gm Oint 30 Gm Tube) 1 applic TOPICAL DAILY [facility] Stop: 01/29/24 10:59 Dextrose (Dextrose 50% In Water 25 Gm/50 Ml Syringe) 0 gm IV-PUSH PRN PRN PRN Reason: Hypoglycemia Stop: 01/28/24 18:39 Last Admin: 01/29/23 05:35 Dose: 25 gm Docusate Sodium (Docusate 100 Mg Capsule) 100 mg PO BID [facility] Stop: 01/28/24 20:59 Last Admin: 01/29/23 09:04 Dose: 100 mg Gabapentin (Gabapentin 800 Mg Tablet) 800 mg PO QID [facility] Stop: 01/28/24 21:59 Last Admin: 01/29/23 09:04 Dose: 800 mg Glucose (Dextrose 40% Gel 15 Gm Tube) 0 gm PO PRN PRN PRN Reason: Hypoglycemia Stop: 01/28/24 18:39 Hydralazine HCl (Hydralazine 20 Mg/Ml Vial) 10 mg IV-PUSH Q4H PRN PRN Reason: Hypertension Stop: 01/28/24 18:39 Hydromorphone HCl (Hydromorphone 1 Mg/Ml Syringe) 0.5 mg IV-PUSH Q4H PRN PRN Reason: Pain Scale 8 - 10 Last Admin: 01/29/23 10:09 Dose: 0.5 mg Lactated Ringer's (Lactated Ringers) 1,000 mls @ 75 mls/hr IV .[id number] [facility] Stop: 01/28/24 18:44 Last Admin: 01/28/23 22:43 Dose: 75 mls/hr Vancomycin HCl 1.25 gm/ (Dextrose) 275 mls @ 183.333 mls/hr IV Q12H [facility] Stop: 01/29/24 06:29 Last Admin: 01/29/23 05:53 Dose: 183.33 mls/hr Piperacillin Sod/Tazobactam Sod (Zosyn) 3.375 gm in 100 mls @ 200 mls/hr IV Q6HSCH Last Admin: 01/29/23 09:03 Dose: 200 mls/hr Insulin Aspart (Insulin Aspart 300 Units/3 Ml Insuln.Pen) 0 units SUBCUT [facility]ID.[facility]; Protocol Stop: 01/28/24 21:59 Last Admin: 01/29/23 09:03 Dose: Not Given Levothyroxine Sodium (Levothyroxine 150 Mcg Tablet) 150 mcg PO DAILY@0630 [facility] Stop: 01/29/24 06:29 Last Admin: 01/29/23 05:36 Dose: 150 mcg Losartan Potassium (Losartan 50 Mg Tablet) 50 mg PO [facility] Stop: 01/29/24 08:59 Last Admin: 01/29/23 09:04 Dose: 50 mg Metoprolol Succinate (Metoprolol Succinate 50 Mg Tab.Er.24h) 50 mg PO [facility] Stop: 01/29/24 08:59 Last Admin: 01/29/23 09:04 Dose: 50 mg Ondansetron HCl (Ondansetron 4 Mg/2 Ml Vial) 4 mg IV-PUSH Q8H PRN PRN Reason: Nausea And Vomiting Stop: 01/28/24 18:39 Oxycodone/Acetaminophen (Oxycodone/Acetaminophen 5-325 Mg Tablet) 2 tab PO Q6H PRN PRN Reason: Pain Last Admin: 01/29/23 07:37 Dose: 2 tab Sodium Chloride (Sodium Chloride 0.9 % 10 Ml Syringe) 0 ml IV-PUSH PRN PRN PRN Reason: Flush Stop: 01/28/24 14:34 Vancomycin HCl (Vancomycin - Pharmacy Dosing 1 Each Miscell) 1 each IV ONCE PRN; Protocol PRN Reason: ZZ.Pharmacy Consult Exam Physical Exam Vital Signs: Vital Signs Temp Pulse Pulse Resp BP BP Pulse Ox 01/29/23 07:38 98.1 F 79 19 95/71 L 90 L 01/29/23 03:15 97.6 F 82 12 116/81 92 L 01/28/23 23:57 98.3 F 96 H 14 124/85 82 L 01/28/23 21:17 98.0 F 70 12 110/77 93 L 01/28/23 20:23 01/28/23 20:01 01/28/23 20:00 98.6 F 81 18 122/86 94 L 01/28/23 19:16 76 20 135/61 97 01/28/23 16:56 92 H 20 139/79 98 01/28/23 14:36 97.3 F L 102 H 18 126/88 98 Const General: cooperative and comfortable Orientation: oriented x3 HEENT Head: normal to inspection Ears: hearing grossly normal bilaterally Nose: external nose normal Eyes General: appearance normal, both eyes and all related structures Neck Neck: normal visual inspection Chest Chest palpation & inspection: normal inspection of the chest Resp Effort & Inspection: normal respiratory effort Auscultation: clear to auscultation bilaterally Cardio Palpation: normal PMI Rate: regular rate Rhythm: regular rhythm GI Inspection: normal to inspection Palpation: soft Auscultation: normal bowel sounds Skin Lesions: lesion noted (left 3rd toe dorsal black scab) Other: Swelling of the toe noted along with forefoot. Erythematous changes that are deeper in color. Tender to touch. Warmth going up the anterior bella. Some stasis changes noted of the bella Neuro General: patient oriented x3 Extrem General: abnormal to inspection (see above) Results Labs 01/29/23 05:11 01/29/23 05:11 Labs: 01/28/23 16:30: Corrected WBC 12.9 H, Uncorrected WBC Count 12.9 H 01/28/23 16:30: BUN 11, Creatinine 0.87 01/29/23 05:11: Corrected WBC 12.6 H, Uncorrected WBC Count 12.6 H 01/29/23 05:11: BUN 11, Creatinine 0.95 Microbiology Results Microbiology Narrative: 01/28/23 16:46 Blood Culture - Pending Blood - Right Antecubital 01/28/23 16:30 Blood Culture - Pending Blood - Left Antecubital Imaging and Cardiology Status: report viewed by me Results Comments: Xray: IMPRESSION: SOFT TISSUE SWELLING CONSISTENT WITH CELLULITIS. SCATTERED DEGENERATIVE CHANGESWITHOUT ACUTE BONY PROCESS OR PLAIN FILM EVIDENCE OF OSTEOMYELITIS. A&P - Infectious Disease (1) Peripheral vascular occlusive disease: Status: Acute (2) Diabetic infection of left foot: Status: Acute (3) Surgical wound, non healing: Status: Acute (4) Cellulitis: Status: Acute Plan Patient empirically on vancomycin and Zosyn. Awaiting arterial studies to evaluate blood supply. Podiatry consulted awaiting their input. X-ray only with soft tissue swelling without obvious osteo. Culture from December 2021 positive only for Pseudomonas. Maintain both vancomycin and Zosyn until more information is resulted and potential surgical decisions are made. Documented By: Rolando Sykes MD 01/29/23 1119 Signed By: <Electronically signed by MD Rolando Sykes> 01/29/23 1128 [facility] Work Phone: Consult note Author CWS Ayan wallis [facility] January 29, 2023 3:40pm Note Date/Time January 29, 2023 3:24pm [facility] [address] [place] [address] Podiatry Consult Note Signed Patient: Ema Neff MR#: [id number] : 1965 Acct:[id number] Age/Sex: 58 / F Adm Date: 3 Loc: Room: [address] [place] [address] Type: ADM IN Attending Dr: Casa Givens DO Copies to: Ayan Deluna DPM, CWS DO Jarvis Lane MD~ HPI Data of Consult Consult Date: 01/29/23 Requesting Physician: Casa Givens DO Primary Care Provider: Jarvis Thrasher MD Consult Narrative Reason for consult: Gangrenous wound third left toe History of present illness: Ms. Neff is a 58 year old female who is typically followed by my partner Dr. Mehta. She has recently undergone second left toe amputation and he continues to follow for wounds at the amputation site. Patient recently dropped her cell phone on the third left toe which caused a wound which subsequently turned blackover the past week. Patient has history of peripheral arterial disease with history of previous vascular intervention, diabetes with peripheral neuropathy and history of chronic ulcerations of both feet. She has history of chronic pain associated with her back which apparently has made pain control in the lower extremities difficult at times. She denies any fever or chills. Review of Systems Review of Systems All other systems reviewed & are negative unless noted below or in HPI Constitutional Constitutional: Reports system reviewed and no additional complaints, except as documented Eyes Eyes: Reports system reviewed and no additional complaints, except as documented Cardiovascular Cardiovascular: Reports leg edema and Reports pedal edema Respiratory Respiratory: Reports system reviewed and no additional complaints, except as documented Musculoskeletal Musculoskeletal: Reports numbness Integumentary/Breasts Skin/Breast: Reports change in pigmentation, Reports erythema and Reports skin ulcer Neurologic Neurologic: Reports numbness and Reports sensory deficit Psychiatric Psychiatric: Reports system reviewed and no additional complaints, except as documented Hematologic/Lymphatic Hematologic/Lymphatic: Reports system reviewed and no additional complaints, except as documented [facility] Medical History (Updated 01/29/23 @ 15:35 by Ayan Deluna DPM) Anxiety Arthritis Back pain Bronchitis Cellulitis DDD (degenerative disc disease) Depression Diabetes Diabetes mellitus, type 2 DJD (degenerative joint disease) Dry gangrene Eczema GERD (gastroesophageal reflux disease) since being dx with thyroid problems Gout History of amputation of toe History of CVA in adulthood rt sided weakness Hyperlipidemia Hypertension Hyperthyroidism Menopause Neuropathy Osteoporosis PAD (peripheral artery disease) Retinal artery occlusion right eye, is receiving injections. Sleep apnea no machine Smoker quit 03/2021 Tachycardia Ulcerative colitis Surgical History History of carpal tunnel surgery of right wrist History of cholecystectomy History of endometrial ablation History of surgery on wrist carpal tunnel and ulnar nerve rt arm; History of thyroidectomy History of tonsillectomy History of tubal ligation Hx of angioplasty bilateral legs x2, 2 stents on R Hx of cataract surgery bilateral S/P angioplasty with stent rt leg and left leg graft Family History Father Bladder cancer Prostate cancer Diabetes Mother H/O blood clots Social History Smoking Status: Former smoker Tobacco Type: cigarettes Substance Use Type: None Social History Comments: housing pt lives in mobile home Meds Medications and Allergies Allergies hydrocodone [From Vicodin] Allergy (Verified 01/28/23 14:35) Hallucinating Steroid Injection Allergy (Uncoded 01/28/23 14:35) Swelling Home Medications losartan 50 mg tablet 50 mg PO QAM htn 11/02/17 [History Confirmed 10/20/22] fluticasone propionate 50 mcg/actuation nasal spray,suspension (Flonase Allergy Relief) 1 spray intranasal QHS PRN Nasal Congestion 03/06/18 [History Confirmed 10/20/22] amitriptyline 25 mg tablet 50 mg PO QHS PRN Insomnia 01/21/21 [History Confirmed 10/20/22] gabapentin 800 mg tablet 800 mg PO QID neuropathy 01/21/21 [History Confirmed 10/20/22] meloxicam 15 mg tablet 15 mg PO QAM arthritis 01/21/21 [History Confirmed 10/20/22] nystatin 100,000 unit/gram topical ointment 1 applic topical TID PRN rash 03/10/21 [History Confirmed 10/20/22] aspirin 81 mg tablet,delayed release 81 mg PO QAM PVD 05/02/21 [History Confirmed 10/20/22] clopidogrel 75 mg tablet 75 mg PO QAM PVD 05/02/21 [History Confirmed 10/20/22] cyclobenzaprine 5 mg tablet 10 mg PO QHS PRN Muscle Spasm 05/02/21 [History Confirmed 10/20/22] metoprolol succinate 25 mg tablet,extended release 24 hr 50 mg PO QAM tachycardia/overactive thyroid 05/02/21 [History Confirmed 10/20/22] levothyroxine 125 mcg tablet 150 mcg PO QAM 09/27/21 [History Confirmed 10/20/22] sennosides 8.6 mg tablet (Senna Lax) 2 tab PO BID PRN constipation 30 days #120 tabs 10/09/21 [Rx Confirmed 10/20/22] glimepiride 4 mg tablet 4 mg PO QAM 11/04/21 [History Confirmed 10/20/22] atorvastatin 20 mg tablet (Lipitor) 40 mg PO QAM hyperlipidemia 12/26/21 [History Confirmed 10/20/22] collagenase clostridium histo. 250 unit/gram topical ointment (Santyl) 1 applic topical DAILY 08/20/22 [History Confirmed 10/20/22] duloxetine 30 mg capsule,delayed release 30 mg PO QAM 08/20/22 [History Confirmed 10/20/22] omeprazole 40 mg capsule,delayed release 40 mg PO QAM 08/20/22 [History Confirmed 10/20/22] oxycodone-acetaminophen 5 mg-325 mg tablet 1 - 2 tab PO Q4-6H PRN Pain 08/20/22 [History Confirmed 10/20/22] semaglutide 1 mg/dose (4 mg/3 mL) subcutaneous pen injector (Ozempic) 1 mg subcut QWEEK diabetes 08/20/22 [History Confirmed 10/20/22] Exam Physical Exam Vital Signs: Temp Pulse Resp BP Pulse Ox O2 Del Method O2 Flow Rate 97.8 F 78 13 108/67 98 Nasal Cannula 2 01/29/23 13:25 01/29/23 14:25 01/29/23 14:25 01/29/23 14:25 01/29/23 14:25 01/29/23 13:40 01/29/23 13:55 Narrative: General: Patient is seen at bedside and is awake and wearing in no acute distress. Vascular: DP pulse trace and PT pulses 0/4 and temperature gradient is warm to cool.? No significant edema noted today. Dr. Mon has performed vascular intervention in the form of angiogram today she continues to demonstrate significant peripheral arterial disease in the left lower extremity. Unfortunately there are no further vascular intervention that could be performedto improve her circulation. Neurological: Absent vibratory sensation at the first MP joint bilaterally.? Decreased light touch sensation distal to the midfoot bilaterally Dermatological: Skin is thinning with diminished hair growth bilaterally.? No hyperkeratotic lesions are noted.? Patient has history of second toe amputationsbilaterally.? Ulcerations are noted as described below Musculoskeletal: +5/5 muscle strength bilaterally, mild hammertoe deformities noted bilaterally Podiatric: Ulcerated lesions are noted on the left foot. Dry gangrenous lesion on the distal lateral third left toe. This lesion measures 2.5 x 1.0 cm in diameter and is superficial. There does not appear to be any significant drainage. No sinus tract or undermining noted. Amputation site of the second left toe demonstrates an ulcer 1.2 x 1.2 cm in diameter and 0.2 cm in depth.? The base of this wound is mixed granular and fibrotic.? No sinus track or undermining noted here.? All wounds demonstrate local erythema surrounding the lesions. Lesions are also very tender to the touch and no debridement can be performed due to the sensitivity.? CRP is 0.5 and WBC is 12.6. Culture and sensitivity is being taken. X-rays did not reveal obvious erosive changes suggestive of osteomyelitis. MRI study is pending. Results Labs 01/29/23 05:11 01/29/23 05:11 ESR 30 mm/hr (0-29) H 01/28/23 16:30 Assessment/Plan (1) Dry gangrene: Assessment/Problem Details: Completed initial examination. Discussed treatment options with the patient at length. Dr. Mon is completed vascular evaluation and angiogram. Unfortunately no further vascular intervention can be performed due to the severity of her PAD. At this point we will await MRI study. If no abscesses orosteomyelitis noted we will have 2 options depending on how the toe progresses over the weekend. Wound debridement could be performed and wound care continuedto see if we could heal this wound secondary to her recent injury. The other option would be to proceed with amputation of the toe due to the gangrene and significant PAD. Given the severity of her vascular disease and the persistenceof the wound at the second toe amputation site, I feel it is unlikely that wounddebridement or distal amputation would be likely to heal. Therefore would recommend amputation of the third left toe as there appears to be viable tissue available for closure for this procedure. These options were presented to the patient along with the potential risks and complications which she is familiar with from her previous procedures. Her questions were answered to her satisfaction and she will consider her options as noted above. We will tentatively schedule surgery for Wednesday afternoon under IV sedation. We will continue to follow her progress over the and will proceed with surgical interventionon Wednesday. Thank you for the consultation and podiatry will continue to follow. Code(s): I96 - Gangrene, not elsewhere classified (2) Ulcer of left foot, limited to breakdown of skin: Code(s): L97.521 - Non-pressure chronic ulcer of other part of left foot limited to breakdown of skin (3) PAD (peripheral artery disease): Code(s): I73.9 - Peripheral vascular disease, unspecified (4) Type 2 diabetes mellitus with peripheral neuropathy: Code(s): E11.42 - Type 2 diabetes mellitus with diabetic polyneuropathy Documented By: Ayan Deluna DPM, AUTUMN [id number] Signed By: <Electronically signed by TERESA Deluna> 01/29/[address] [facility] Work Phone: Discharge summary Author Adithya Rm [facility] October 09, 2021 5:01pm Note Date/Time October 09, 2021 9:59 am [facility] [address] [place] [address] Discharge Summary Signed Patient: Ema Neff MR#: [id number] : 1965 Acct:[id number] Age/Sex: 56 / F Adm Date: 2 Loc: Room: [address] [place] [address]: Adithya Rm DO Copies to: DO Jarvis Edouard MD~ Providers Date of Discharge: 10/09/21 Discharging Provider: Adithya Rm Primary Care Provider: Jarvis Thrasher Consults: 09/27/21 14:45 Consult to Podiatry Routine Consult to Vascular Surgery Routine 09/27/21 14:47 Consult to Case Management Routine Consult to Occupational Therapy Routine Consult to Physical Therapy Routine 09/27/21 15:20 Consult to Dietitian Routine 10/01/21 01:59 Consult to Pulmonology Routine 10/04/21 15:22 Consult to Dietitian Routine Discharge Diagnosis (1) 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: (2) Ulcer of right foot with fat layer exposed: (3) Peripheral vascular occlusive disease: (4) Hematoma: (5) HTN (hypertension), benign: (6) Diabetes mellitus: (7) Morbid obesity due to excess calories: (8) Tobacco abuse: (9) PAD (peripheral artery disease): (10) Osteomyelitis: Final Diagnosis Final Discharge Diagnosis: as per list. Summary Hospital Course Hospital course: This is a 56-year-old woman who has issues related the feet bilaterally related diabetes, peripheral arterial disease, and ulcerations of the skin of Sk[place] tissue. She developed gangrene of the right second digit and underwent amputation and revascularization. She has a wound on the right foot that had been stable in the past and seem to be healing. She developed acute gangrene inthe left second toe and underwent partial toe amputation on that. That incisiondid continue to have some dry gangrene but was healing well until she was taken off her blood thinners due to her thyroid surgery and after that she noticed significant worsening. She began to develop and noticed some eschar on the edgeof the toe with some exposed bone noted. She has already been working with vascular surgery and had a procedure scheduled on October 13, but due to the new findings she did present to the emergency room for hospital admission in order to help expedite the surgery and prevent further proximal amputation on the feet. She does have chronic pain related to bilateral feet that was much more acute and the nature of his pain due to this injury. She was admitted to hospital. She was placed on broad-spectrum antibiotics. Cultures grew Streptococcus agalactiae group B. Antibiotics were refined to Rocephin. She had podiatry follow her by Dr. Bell first and then Dr. Mehta. Vascular surgery was consulted. They did follow her with eventual plans for attempted revascularization of the left lower extremity for foot and limb salvage. She had surgery by Dr. Mehta from podiatry on October 07, 2021 with the finding ofosteomyelitis of the left second toe, diabetic ulceration of the left second toewith gangrene Amaral grade 4, diabetic/arterial ulceration with pain medial leftmidfoot and arch on the left, pedal pain of both feet, surgical wound of the right foot status post left second toe amputation which was nonhealing and diabetic ulceration with gangrene of the left distal fourth toe. During the surgical procedure he did amputate the left second toe stump at the Metatarsal-phalangeal joint level of the left foot and did deep swab cultures at the amputation site of the second toe and did subcutaneous tissue excisional ulceration debridement of diabetic ulceration of the left fourth toe distal and left medial arch and midfoot and obtained a second swab of a purulent area that was expressed from the left fourth toe and did full thickness excisional ulceration debridement of the right amputation site and did antibiotic power lavage and mycotic nail debridement of the left fourth toe and then full-thickness excisional ulceration of the left hallux. Patient tolerated the procedure well with exception of increase of her pain in the foot. She is on chronic pain medication and her use of opiate medications did double during this hospital stay due to this surgical procedure. Her OARRS report was reviewed. She was sent home on a supply of oxycodone to use at 5 to 10 mg p.o. every 4 hours for the next 5 days, or until the vascular surgery procedure occurs. She is planned for the vascular surgery procedure on October 13 under the direction of the vascular surgeon. Condition Condition at Discharge: Stable Status at Discharge Functional status at discharge: uses cane/walker Overall status at discharge: patient is progressing back to baseline Time Spent with Patient Time spent providing/coordinating discharge services (# min): 49 Surgeries and Procedures Operation Date: 09/30/21 14:05 Actual Procedures p OR LEFT Leg Angiogram / LT Ant. Tibial TLA(Left) - Karsten Vega MD Operation Date: 10/01/21 00:57 Actual Procedures p OR diagnostic arteriogram(Right) - Karsten Vega MD Operation Date: 10/07/21 17:45 Actual Procedures p OR Left 2nd Toe Stump Amputation, Debridement Bilateral Foot Ulcers(Left) - Kanu Mehta DPM, Operation Date: 10/13/21 10:35 <No data on this case meets the specified criteria> Diagnostic Studies Completed and Pending Studies Pending studies at discharge: 10/07/21 18:30 Wound Culture (Deep) Routine Wound Culture (Deep) Routine Preliminary micro results at discharge 10/07/21 18:30 Aerobic Culture - Pending Foot,Left - Other Anaerobic Culture - Pending 10/07/21 18:30 Aerobic Culture - Pending Foot,Left - Other Anaerobic Culture - Pending Labs on day of discharge: 10/09/21 07:31: POC Glucose 153 10/09/21 04:46: Triglycerides 82 10/08/21 20:53: POC Glucose 216, POC Glucose Comment Glu2: cleaned meter 10/08/21 16:30: POC Glucose 157, POC Glucose Comment Glu2: cleaned meter 10/08/21 11:32: POC Glucose 170 Exam Physical Exam Vital Signs: Temp Pulse Resp BP Pulse Ox O2 Del Method O2 Flow Rate 98 F 90 18 110/79 95 Room Air 6 10/09/21 08:00 10/09/21 08:00 10/09/21 08:00 10/09/21 08:00 10/09/21 08:00 10/09/21 08:00 10/07/21 19:04 FiO2 30 10/01/21 15:00 Narrative: General: Awake, alert, oriented. Moving herself around the bed, and taking short walks in her room. Pulmonary: Clear to auscultation throughout. No wheezes, rhonchi, or crackles. Cardiac: Regular rate and rhythm. Heart somewhat distant to auscultation. No rubs or gallops. GI: Abdomen soft, normal bowel sounds to auscultation. Ext; Both calves with no swelling or knots behind the knees. Both feet wrappedin gauze dressing, clean and dry with no drainage. Discharge Plan Discharge Plan Patient Disposition: Home Health [facility] Activity: Ambulate as Tolerated Diet: Diabetic Additional Instructions: Your vascular surgery is scheduled for October,. The time of the surgery is 10:30. You must arrive at the surgery department 2 hours early, at 8:30. You must not eat any food or drink any liquid after midnight on Wednesday night. It is ok to keep taking your medications, including aspirin and plavix. DO NOT take Glimepiride on Wednesday or Wednesday. Home Health to manage care: - Full code - Routine vital signs - Medication management and education - Maintain cleansing patient's incisions and ulcerations with sterile Vashe solution followed by Medihoney and dry sterile dressing daily until healed - Elevation of feet are imperative to avoid swelling/dependency which impairshealing greatly - Offloading bilateral ankle, heel, feet-rolled up pillows behind ankle so that heels are suspended off of bed. Skin breakdown is a major concern and further risk that should be prevented - Fingerstick blood sugar ACHS - keep log for PCP Prescriptions: New sennosides [Senna Lax] 8.6 mg Tablet 2 tab PO BID PRN (Reason: constipation) 30 Days Qty: 120 0RF docusate sodium 100 mg Capsule 200 mg PO BID 30 Days Qty: 120 0RF oxycodone 5 mg Tablet 5 - 10 mg PO Q4HR PRN (Reason: pain) 5 Days Qty: 50 0RF cephalexin 500 mg capsule 500 mg PO TID 7 Days Qty: 21 0RF Continued fluticasone propionate [Flonase Allergy Relief] 50 mcg/actuation [place],Suspension 1 spray INTRANASAL QHS PRN (Reason: Nasal Congestion) meloxicam 15 mg tablet 15 mg PO DAILY Hold Instructions: Resume on 08/08/21. Label Comments: TAKE 1 TABLET BY MOUTH EVERY DAY gabapentin 800 mg tablet 800 mg PO QID Label Comments: TAKE 1 TABLET BY MOUTH THREE TIMES DAILY amitriptyline 25 mg tablet 50 mg PO HS Label Comments: TAKE 1 TABLET BY MOUTH AT BEDTIME glimepiride 4 mg tablet 4 mg PO QAM Label Comments: TAKE 1 TABLET BY MOUTH EVERY DAY meclizine 25 mg Tablet 25 mg PO QHS PRN (Reason: Vertigo) metoprolol succinate 25 mg tablet extended release 24 hr 50 mg PO DAILY Label Comments: TAKE 1 TABLET BY MOUTH EVERY DAY cyclobenzaprine 5 mg tablet 10 mg PO QHS PRN (Reason: Muscle Spasm) Label Comments: TAKE 1 TABLET BY MOUTH THREE TIMES DAILY NEEDED FOR 10 DAYS atorvastatin [Lipitor] 20 mg tablet 20 mg PO QHS clopidogrel 75 mg tablet 75 mg PO DAILY Hold Instructions: Resume on 08/08/21. aspirin 81 mg tablet,delayed release (DR/EC) 81 mg PO DAILY losartan 50 mg tablet 50 mg PO QAM Label Comments: TAKE 1 TABLET BY MOUTH ONE TIME A DAY nystatin 100,000 unit/gram ointment 1 applic TOPICAL TID PRN (Reason: rash) Label Comments: apply topically to skin fold TWICE DAILY Rx Instructions: Bilateral groins levothyroxine 125 mcg tablet 125 mcg PO DAILY Label Comments: TAKE 1 TABLET BY MOUTH IN THE MORNING ON AN EMPTY STOMACH DAILY Discontinued oxycodone-acetaminophen [Percocet] 5-325 mg tablet 3 tab PO TID PRN (Reason: Pain) doxycycline hyclate 100 mg tablet 100 mg PO DAILY Other Ambulatory Orders: Initiate Home Health (Routine) Timeframe: 1 Day Location: Determined by Patient Ordered By: Adithya Rm Follow Up: Kanu Mehta DPM, [Active Staff] - 10/15/21 1:00 pm (Follow-up with Podiatry. Call office to reschedule if needed.) Jarvis Thrasher MD [Primary Care Provider] - 10/13/21 10:30 am (Follow-up with your Primary Care Provider, call office to reschedule if needed. *Unable to reach office staff, please call Dr. Thrasher's to reschedule appointment) Documented By: Adithya Rm DO [id number] Signed By: <Electronically signed by Adithya Rm, > 10/09/[address] [facility] Work Phone: Discharge summary Author Zaid Mon [facility] October 22, 2021 12:46pm Note Date/Time October 20, 2021 9:4 8am [facility] [address] [place] [address] Discharge Summary Signed Patient: Ema Neff MR#: [id number] : 1965 Acct:[id number] Age/Sex: 56 / F Adm Date: 2 Loc: 4 Room: [address] [place] [address]: Zaid Mon MD Copies to: MD Jarvis Roberson MD~ Providers Date of Admission: 10/13/21 Date of Discharge: 10/17/21 Discharging Provider: Zaid Mon Primary Care Provider: Jarvis Thrasher Consults: 10/13/21 13:51 Consult to Adult Hospitalist Routine 10/15/21 07:59 Consult to Occupational Therapy Routine Consult to Physical Therapy Routine Discharge Diagnosis (1) Postoperative examination: (2) PAD (peripheral artery disease): Final Diagnosis Final Discharge Diagnosis: PAD Summary Hospital Course Hospital course: This pleasant patient presented for an elective attempt at revascularization of her leg in order to prevent amputation. This was an attempt at limb salvage. She successfully underwent the bypass surgery and then did well after surgery. Her activity level was increased her diet was advanced her IV fluids were hep-locked and physical therapy and Occupational Therapy were on board and working with the patient. Condition Condition at Discharge: Stable Status at Discharge Functional status at discharge: uses cane/walker Overall status at discharge: patient is not back to baseline Time Spent with Patient Time spent providing/coordinating discharge services (# min): 0 Specific discharge activities: This is Dr. Mon dictating. I was at the [employer] this week and I was not involved in this patient's discharge. Surgeries and Procedures Operation Date: 10/13/21 09:50 Actual Procedures p OR Left Leg Anterior Tibial to Peroneal Bypass with Vein(Left) - Zaid Mon MD Complications Complications: none Exam Physical Exam Vital Signs: Temp Pulse Resp BP Pulse Ox O2 Del Method O2 Flow Rate 98.1 F 84 16 138/83 97 Room Air 1 10/17/21 11:36 10/17/21 11:36 10/17/21 11:36 10/17/21 11:36 10/17/21 11:36 10/17/21 11:36 10/16/21 08:00 Narrative: Please see examination from a clinic visit by my partner on the date of discharge. This is Dr. Mon dictating. I was [place] [employer] and not able to round on this patient. Discharge Plan Discharge Plan Patient Disposition: [facility] Activity: No Activity Restriction Diet: Diabetic, Low-Sodium and Low-Cholesterol Additional Instructions: Maintain dry dressing on left thigh and left lower leg surgical incision until no drainage, then may leave open to air. Sami removed in 10 days at office. Please provide daily dressing change to bilateral foot: Right 2nd toe amputationsite, left medial foot ulcer, left great toe ulcer, left 5th toe ulcer- clean with vashe solution and gently pat dry. Rinse the sites with normal saline and apply a anabel thick layer of Santyl to wound bed. Left 2nd toe amputation site incision- clean with normal saline and pat dry. Betadine swab the surgical incision. Top all wounds with 4x4 gauze, and place 4x4 gauze between left toes to prevent maceration. Secure with conform on right foot and kerlix on left foot. Stand Alone Forms: Insulin Corrective Scale #2 Prescriptions: New Levemir FlexTouch U-100 Insuln 100 unit/mL (3 mL) Insulin Pen 20 unit subcut QHS Qty: 0 0RF insulin aspart U-100 [Novolog Flexpen U-100 Insulin] 100 unit/mL (3 mL) Insulin Pen 0 units subcut TID.WM.HS Qty: 0 0RF Ozempic 1 mg/dose (4 mg/3 mL) pen injector 1 mg subcut QWEEK Qty: 3 4RF Continued fluticasone propionate [Flonase Allergy Relief] 50 mcg/actuation [place],Suspension 1 spray INTRANASAL QHS PRN (Reason: Nasal Congestion) meloxicam 15 mg tablet 15 mg PO DAILY Hold Instructions: Resume on 08/08/21. Label Comments: TAKE 1 TABLET BY MOUTH EVERY DAY gabapentin 800 mg tablet 800 mg PO QID Label Comments: TAKE 1 TABLET BY MOUTH THREE TIMES DAILY amitriptyline 25 mg tablet 50 mg PO HS Label Comments: TAKE 1 TABLET BY MOUTH AT BEDTIME metoprolol succinate 25 mg tablet extended release 24 hr 50 mg PO DAILY Label Comments: TAKE 1 TABLET BY MOUTH EVERY DAY cyclobenzaprine 5 mg tablet 10 mg PO QHS PRN (Reason: Muscle Spasm) Label Comments: TAKE 1 TABLET BY MOUTH THREE TIMES DAILY NEEDED FOR 10 DAYS clopidogrel 75 mg tablet 75 mg PO DAILY Hold Instructions: Resume on 08/08/21. aspirin 81 mg tablet,delayed release (DR/EC) 81 mg PO DAILY oxycodone 5 mg Tablet 5 - 10 mg PO Q4HR PRN (Reason: pain) 5 Days Qty: 15 0RF losartan 50 mg tablet 50 mg PO QAM Label Comments: TAKE 1 TABLET BY MOUTH ONE TIME A DAY nystatin 100,000 unit/gram ointment 1 applic TOPICAL TID PRN (Reason: rash) Label Comments: apply topically to skin fold TWICE DAILY Rx Instructions: Bilateral groins levothyroxine 125 mcg tablet 125 mcg PO DAILY Label Comments: TAKE 1 TABLET BY MOUTH IN THE MORNING ON AN EMPTY STOMACH DAILY sennosides [Senna Lax] 8.6 mg Tablet 2 tab PO BID PRN (Reason: constipation) 30 Days Qty: 120 0RF Changed atorvastatin [Lipitor] 20 mg tablet 40 mg PO QHS Qty: 30 0RF Discontinued glimepiride 4 mg tablet 4 mg PO QAM Label Comments: TAKE 1 TABLET BY MOUTH EVERY DAY meclizine 25 mg Tablet 25 mg PO QHS PRN (Reason: Vertigo) cephalexin 500 mg capsule 500 mg PO TID Label Comments: TAKE 1 CAPSULE BY MOUTH THREE TIMES DAILY FOR 7 DAYS docusate sodium 100 mg Capsule 200 mg PO BID 30 Days Qty: 120 0RF Follow Up: Zaid Mon MD [Active Staff] - 10/29/21 9:45 am (Please follow up in [address] Juares on 10/29/21.) Documented By: Zaid Mon MD 10/22/21 1241 Signed By: <Electronically signed by Zaid Mon MD> 10/22/21 1246 [facility] Work Phone: Discharge summary Author Dean Rodriguez [facility] November 09, 2021 5:19pm Note Date/Time November 09, 2021 1: 54pm [facility] [address] [place] [address] Discharge Summary Signed Patient: Ema Neff MR#: [id number] : 1965 Acct:[id number] Age/Sex: 56 / F Adm Date: 2 Loc: 3T Room: [address] [place] [address]: Dean Rodriguez MD Copies to: MD Jarvis Neal MD~ Providers Date of Discharge: 11/09/21 Discharging Provider: Dean Rodriguez Primary Care Provider: Jarvis Thrasher Consults: 11/04/21 03:53 Consult to Vascular Surgery Routine 11/05/21 15:06 Consult to Applications Systems Analyst Routine Discharge Diagnosis Final Diagnosis Final Discharge Diagnosis: Postoperative wound infection, debridement and wound VAC placement during this admission Antibiotic induced diarrhea Chronic medical comorbidities include PVD, s/p left tibial to peroneal artery bypass surgery October 2019 Dyslipidemia Diabetes mellitus type2 Hypothyroidism Hypertension Gout Obesity class III BMI 42 Anxiety depression GERD Sleep apnea Cerebrovascular disease and history of right-sided weakness Summary Hospital Course Hospital course: Patient is a 56-year-old female, with known history of PVD, who underwent on October 13 left tibial to peroneal artery bypass surgery from greater saphenous vein. The postoperative course was complicated by a wound infection which did not respond to oral antibiotics as outpatient. Patient presented to the emergency department on November 04, with wound dehiscence and purulent material discharge, as well as cellulitic changes. She was admitted to the hospital. She received broad-spectrum antibiotic therapy with Zosyn and vancomycin. She was seen by vascular surgery, underwent debridement and wound VAC placement. In addition she had an ulcer debridement in the left foot. Cultures remain negative as of the time of discharge. No complications occurred apart from fairly significant discomfort, requiring opioids. Patient was discharged in stable condition on November 09. She will continue antimicrobial therapy with doxycycline and Augmentin for 1 more week. She will receive DVT prophylaxis due to poor mobility. Pain control with fentanyl patch scheduled and as needed oxycodone. Follow-up with PCP in 2 days. Follow-up with vascular surgery. Time Spent with Patient Time spent providing/coordinating discharge services (# min): 35 Surgeries and Procedures Operation Date: 11/06/21 14:30 Actual Procedures p OR Irrigation and Debridement Left Leg with Wound Vac Application(Left) - Zaid Mon MD Operation Date: 11/07/21 14:30 Actual Procedures p OR Left Foot Wound Debridement(Left) - Chichi Ramirez DPM Diagnostic Studies Completed and Pending Studies Pending studies at discharge: 11/10/21 13:00 Vancomycin,Trough [TOX] Timed Labs on day of discharge: 11/09/21 11:12: POC Glucose 368, POC Glucose Comment Glu2: cleaned meter 11/09/21 06:42: POC Glucose 170, POC Glucose Comment Glu2: cleaned meter 11/08/21 21:09: POC Glucose 162, POC Glucose Comment Glu2: cleaned meter 11/08/21 16:26: POC Glucose 256, POC Glucose Comment Glu2: cleaned meter 11/08/21 13:55: C. difficile Tox B Gene Negative Exam Physical Exam Vital Signs: Temp Pulse Resp BP Pulse Ox O2 Del Method O2 Flow Rate 97.8 F 70 18 132/87 95 Room Air 6 11/09/21 08:46 11/09/21 08:46 11/09/21 08:46 11/09/21 10:33 11/09/21 08:46 11/09/21 08:46 11/06/21 16:00 Discharge Plan Discharge Plan Patient Disposition: Home Health [facility] Activity: Other Comment: Per vascular surgery and podiatry Diet: Regular Additional Instructions: Home Health to manage care: - Full code - PT/OT eval and treat - Routine vital signs - Medication management and education - Left medial foot, left 2nd toe amp site, left great toe, right 2nd toe amp site- allow vashe moistened gauze soak on wound beds for 5 min., rinse with normal saline, apply anabel thick layer of santyl to wound beds, top with adaptic, 2x2s between good toe web spaced, 4x4s and secure with conforming gauze. Change daily and as needed. - Maintain wound vac to left leg, continuous @ 125mmHg - change 3x a week (Wednesday, , Wednesday) - Fingerstick blood sugar ACHS - Prescriptions: New fentanyl 25 mcg/hr Patch 72 Hour 25 mcg transdermal Q72HR 6 Days Qty: 2 0RF oxycodone 15 mg tablet 15 mg PO QID PRN (Reason: pain) 7 Days Qty: 20 0RF amoxicillin-pot clavulanate 875-125 mg tablet 1 tab PO BID 7 Days Qty: 14 0RF Xarelto 10 mg Tablet 10 mg PO DAILY Qty: 14 0RF Continued fluticasone propionate [Flonase Allergy Relief] 50 mcg/actuation [place],Suspension 1 spray INTRANASAL QHS PRN (Reason: Nasal Congestion) meloxicam 15 mg tablet 15 mg PO DAILY Hold Instructions: Resume on 08/08/21. Label Comments: TAKE 1 TABLET BY MOUTH EVERY DAY gabapentin 800 mg tablet 800 mg PO QID Label Comments: TAKE 1 TABLET BY MOUTH THREE TIMES DAILY amitriptyline 25 mg tablet 50 mg PO HS Label Comments: TAKE 1 TABLET BY MOUTH AT BEDTIME metoprolol succinate 25 mg tablet extended release 24 hr 50 mg PO DAILY Label Comments: TAKE 1 TABLET BY MOUTH EVERY DAY cyclobenzaprine 5 mg tablet 10 mg PO QHS PRN (Reason: Muscle Spasm) Label Comments: TAKE 1 TABLET BY MOUTH THREE TIMES DAILY NEEDED FOR 10 DAYS clopidogrel 75 mg tablet 75 mg PO DAILY Hold Instructions: Resume on 08/08/21. aspirin 81 mg tablet,delayed release (DR/EC) 81 mg PO DAILY Ozempic 1 mg/dose (4 mg/3 mL) pen injector 1 mg subcut QWEEK Qty: 3 4RF atorvastatin [Lipitor] 20 mg tablet 40 mg PO QHS Qty: 30 0RF glimepiride 4 mg Tablet 4 mg PO DAILY duloxetine 30 mg capsule,delayed release(DR/EC) 30 mg PO DAILY Label Comments: TAKE 1 CAPSULE BY MOUTH DAILY doxycycline hyclate 100 mg tablet 100 mg PO BID 7 Days Qty: 0 0RF Label Comments: TAKE 1 TABLET BY MOUTH DAILY FOR 7 DAYS Rx Instructions: Continue for 7 more days losartan 50 mg tablet 50 mg PO QAM Label Comments: TAKE 1 TABLET BY MOUTH ONE TIME A DAY nystatin 100,000 unit/gram ointment 1 applic TOPICAL TID PRN (Reason: rash) Label Comments: apply topically to skin fold TWICE DAILY Rx Instructions: Bilateral groins levothyroxine 125 mcg tablet 125 mcg PO DAILY Label Comments: TAKE 1 TABLET BY MOUTH IN THE MORNING ON AN EMPTY STOMACH DAILY sennosides [Senna Lax] 8.6 mg Tablet 2 tab PO BID PRN (Reason: constipation) 30 Days Qty: 120 0RF Discontinued oxycodone 5 mg Tablet 5 - 10 mg PO Q4HR PRN (Reason: pain) 5 Days Qty: 15 0RF Other Ambulatory Orders: Initiate Home Health (Routine) Timeframe: 1 Day Location: Determined by Patient Ordered By: Dean Rodriguez Follow Up: Kubitz,Kanu R., DPM, [Active Staff] - (follow up next week) Jarvis Thrasher MD [Primary Care Provider] - 11/11/21 10:30 am (Follow-up with yourPrimary Care Provider, call office to reschedule if needed. ) Zaid Mon MD [Active Staff] - (Call office on Wednesday to schedule follow-up with Vascular Surgery.) Documented By: Dean Rodriguez MD 11/09/21 1350 Signed By: <Electronically signed by Dean Rodriguez MD> 11/09/[address] [facility] Work Phone: Evaluation note* Diagnosis Amputation of toe of right foot (HCC)- Primary Amputation of toe of left foot (HCC) DM (diabetes mellitus), type 2 with peripheral vascular complications (HCC) Type II or unspecified type diabetes mellitus with peripheral circulatory disorders, not stated as uncontrolled [facility] [employer] [facility] Other Evaluation note* Diagnosis Onset Date Resolution Status Diabetes mellitus with foot ulcer acute Diabetic foot infection acut e Diabetic infection of left foot acute Hematoma acute Hypoalbuminemia due to protein-calorie malnutrition acute Malnutrition acute Osteomyelitis acute PAD (peripheral artery disease) acute Peripheral vascular occlusive disease acute Post-operative state acute Postoperative examination ac [place] PVD (peripheral vascular disease) acute Surgical wound, non healing acute 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 acute Ulcer of right foot with fat layer exposed acute Diabetes mellitus chronic HTN (hypertension), benign c hronic Morbid obesity due to excess calories chronic Tobacco abuse chronic Chronic ulcer of left foot due to diabetes mellitus acute Diabetic foot infection acut e PAD (peripheral artery disease) acute Postoperative examination ac [place] Diabetes mellitus chronic HTN (hypertension), benign c hronic Infection acute Wound infection acute Diabetes mellitus chronic HTN (hypertension), benign c hronic Morbid obesity due to excess calories chronic [facility] Work Phone: Evaluation note* Diagnosis Onset Date Resolution Status Diabetes mellitus with foot ulcer acute Diabetic foot infection acut e Diabetic infection of left foot acute Hematoma acute Hypoalbuminemia due to protein-calorie malnutrition acute Malnutrition acute Osteomyelitis acute PAD (peripheral artery disease) acute Peripheral vascular occlusive disease acute Post-operative state acute Postoperative examination ac [place] PVD (peripheral vascular disease) acute Surgical wound, non healing acute 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 acute Ulcer of right foot with fat layer exposed acute Diabetes mellitus chronic HTN (hypertension), benign c hronic Morbid obesity due to excess calories chronic Tobacco abuse chronic Chronic ulcer of left foot due to diabetes mellitus acute Diabetic foot infection acut e PAD (peripheral artery disease) acute Postoperative examination ac [place] Diabetes mellitus chronic HTN (hypertension), benign c hronic Infection acute Wound infection acute Diabetes mellitus chronic HTN (hypertension), benign c hronic Morbid obesity due to excess calories chronic Cellulitis acute Left leg cellulitis acute PVD (peripheral vascular disease) acute Wound infection acute Diabetes mellitus chronic [facility] Work Phone: Evaluation note* Diagnosis Onset Date Resolution Status Diabetes mellitus with foot ulcer acute Diabetic foot infection acut e Diabetic infection of left foot acute Hematoma acute Hypoalbuminemia due to protein-calorie malnutrition acute Malnutrition acute Osteomyelitis acute PAD (peripheral artery disease) acute Peripheral vascular occlusive disease acute Post-operative state acute Postoperative examination ac [place] PVD (peripheral vascular disease) acute Surgical wound, non healing acute 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 acute Ulcer of right foot with fat layer exposed acute Diabetes mellitus chronic HTN (hypertension), benign c hronic Morbid obesity due to excess calories chronic Tobacco abuse chronic Chronic ulcer of left foot due to diabetes mellitus acute Diabetic foot infection acut e PAD (peripheral artery disease) acute Postoperative examination ac [place] Diabetes mellitus chronic HTN (hypertension), benign c hronic Infection acute Wound infection acute Diabetes mellitus chronic HTN (hypertension), benign c hronic Morbid obesity due to excess calories chronic Cellulitis acute Left leg cellulitis acute PVD (peripheral vascular disease) acute Wound infection acute Diabetes mellitus chronic Cellulitis acute Diabetic foot ulcer acute Foot pain, bilateral acute Status post amputation of toe of left foot acute Status post amputation of toe of right foot acute [facility] Work Phone: Evaluation note* Diagnosis Onset Date Resolution Status Diabetes mellitus with foot ulcer acute Diabetic foot infection acut e Diabetic infection of left foot acute Hematoma acute Hypoalbuminemia due to protein-calorie malnutrition acute Malnutrition acute Osteomyelitis acute PAD (peripheral artery disease) acute Peripheral vascular occlusive disease acute Post-operative state acute Postoperative examination [place] PVD (peripheral vascular disease) acute Surgical wound, non healing acute 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 acute Ulcer of right foot with fat layer exposed acute Diabetes mellitus chronic HTN (hypertension), benign c hronic Morbid obesity due to excess calories chronic Tobacco abuse chronic Chronic ulcer of left foot due to diabetes mellitus acute Diabetic foot infection acut e PAD (peripheral artery disease) acute Postoperative examination ac [place] Diabetes mellitus chronic HTN (hypertension), benign c hronic Infection acute Wound infection acute Diabetes mellitus chronic HTN (hypertension), benign c hronic Morbid obesity due to excess calories chronic Cellulitis acute Left leg cellulitis acute PVD (peripheral vascular disease) acute Wound infection acute Diabetes mellitus chronic Cellulitis acute Diabetic foot ulcer acute Foot pain, bilateral acute Status post amputation of toe of left foot acute Status post amputation of toe of right foot acute Diabetic foot ulcer acute Diabetic infection of left foot acute Left leg cellulitis acute PAD (peripheral artery disease) acute Status post amputation of toe of left foot acute Status post amputation of toe of right foot acute Type 2 diabetes mellitus with peripheral neuropathy acute Ulcer of left foot with fat layer exposed acute Wound infection acute Diabetes mellitus chronic [facility] Work Phone: Evaluation note* Diagnosis Onset Date Resolution Status Chronic ulcer of left foot due to diabetes mellitus acute Diabetic foot infection acut e PAD (peripheral artery disease) acute Postoperative examination ac [place] Diabetes mellitus chronic HTN (hypertension), benign c hronic Infection acute Wound infection acute Diabetes mellitus chronic HTN (hypertension), benign c hronic Morbid obesity due to excess calories chronic Cellulitis acute Left leg cellulitis acute PVD (peripheral vascular disease) acute Wound infection acute Diabetes mellitus chronic Cellulitis acute Diabetic foot ulcer acute Foot pain, bilateral acute Status post amputation of toe of left foot acute Status post amputation of toe of right foot acute Diabetic foot ulcer acute Diabetic infection of left foot acute Left leg cellulitis acute PAD (peripheral artery disease) acute Status post amputation of toe of left foot acute Status post amputation of toe of right foot acute Type 2 diabetes mellitus with peripheral neuropathy acute Ulcer of left foot with fat layer exposed acute Wound infection acute Diabetes mellitus chronic Foot pain, bilateral acute Type 2 diabetes mellitus with peripheral neuropathy acute Ulcer of left foot with fat layer exposed acute Diabetes mellitus chronic HTN (hypertension), benign c hronic Morbid obesity due to excess calories chronic [facility] Work Phone: Evaluation note* Diagnosis Onset Date Resolution Status Infection acute Wound infection acute Diabetes mellitus chronic HTN (hypertension), benign c hronic Morbid obesity due to excess calories chronic Cellulitis acute Left leg cellulitis acute PVD (peripheral vascular disease) acute Wound infection acute Diabetes mellitus chronic Cellulitis acute Diabetic foot ulcer acute Foot pain, bilateral acute Status post amputation of toe of left foot acute Status post amputation of toe of right foot acute Diabetic foot ulcer acute Diabetic infection of left foot acute Left leg cellulitis acute PAD (peripheral artery disease) acute Status post amputation of toe of left foot acute Status post amputation of toe of right foot acute Type 2 diabetes mellitus with peripheral neuropathy acute Ulcer of left foot with fat layer exposed acute Wound infection acute Diabetes mellitus chronic Cellulitis acute Counseling regarding advance d care planning and goals of care acute Diabetic infection of left foot acute Foot pain, bilateral acute Status post amputation of toe of left foot acute Status post amputation of toe of right foot acute Type 2 diabetes mellitus with peripheral neuropathy acute Ulcer of left foot with fat layer exposed acute Diabetes mellitus chronic HTN (hypertension), benign c hronic Morbid obesity due to excess calories chronic [facility] Work Phone: Evaluation note* Diagnosis Onset Date Resolution Status Diabetic foot ulcer acute Diabetic infection of left foot acute Left leg cellulitis acute PAD (peripheral artery disease) acute Status post amputation of toe of left foot acute Status post amputation of toe of right foot acute Type 2 diabetes mellitus with peripheral neuropathy acute Ulcer of left foot with fat layer exposed acute Wound infection acute Diabetes mellitus chronic Cellulitis acute Counseling regarding advance d care planning and goals of care acute Diabetic infection of left foot acute Foot pain, bilateral acute Status post amputation of toe of left foot acute Status post amputation of toe of right foot acute Type 2 diabetes mellitus with peripheral neuropathy acute Ulcer of left foot with fat layer exposed acute Diabetes mellitus chronic HTN (hypertension), benign c hronic Morbid obesity due to excess calories chronic [facility] Work Phone: Evaluation noteNo assessment information available [facility] Work Phone: evalumptie note* Diagnosis Central retinal vein occlusion, right eye, with macular edema- Primary Hypertensive retinopathy, bilateral Type 2 diabetes mellitus without retinopathy (HCC) Type II or unspecified type diabetes mellitus without mention of complication, not stated as uncontrolled Pseudophakia Lens replaced by other means [facility]* Diagnosis Central retinal vein occlusion, right eye, with macular edema- Primary [facility] Diagnosis Onset Date Resolution Status Diabetes mellitus with foot ulcer acute Diabetic foot infection acut e Dry gangrene acute Osteomyelitis acute PVD (peripheral vascular disease) acute [facility] Work Phone: Evaluation note* Diagnosis Onset Date Resolution Status Cellulitis acute Diabetes mellitus with foot ulcer acute Diabetic foot infection acut e Diabetic infection of left foot acute Dry gangrene acute Osteomyelitis acute PAD (peripheral artery disease) acute Peripheral vascular occlusive disease acute PVD (peripheral vascular disease) acute Surgical wound, non healing acute Type 2 diabetes mellitus with peripheral neuropathy acute Ulcer of left foot, limited to breakdown of skin acute [facility] Work Phone: Evaluation note* Diagnosis Onset Date Resolution Status Cellulitis acute Diabetes mellitus with foot ulcer acute Diabetic foot infection acut e Diabetic infection of left foot acute Dry gangrene acute Osteomyelitis acute PAD (peripheral artery disease) acute Peripheral vascular occlusive disease acute PVD (peripheral vascular disease) acute Surgical wound, non healing acute Type 2 diabetes mellitus with peripheral neuropathy acute Ulcer of left foot, limited to breakdown of skin acute Neutrophilia acute Polycythemia acute [facility] Work Phone: History and physical note Author Raj Craven [facility] November 04, 2021 4:08am Note Date/Time November 04, 2021 3: 59am [facility] [address] [place] [address] Hospitalist H&P Signed Patient: Ema Neff MR#: [id number] : 1965 Acct:[id number] Age/Sex: 56 / F Adm Date: 2 Loc: Room: [address] [place] [address] Type: ADM IN Attending Dr: Raj Oscar MD Copies to: MD Jarvis Jenkins MD~ HPI DATE OF EXAMINATION: 11/04/21 CHIEF COMPLAINT: left leg post surgical infection HISTORY OF PRESENT ILLNESS: Patient is a 56-year-old female with history of diabetes/peripheral arterial disease and third toe amputations due to osteomyelitis and nonhealing diabetic wound status post left lower extremity bypass 2 weeks ago with 2 wounds 1 on theinner thigh and 1 on the lateral side of the bella, the patient stated that afterher sami are taken off which was about 10 days ago, she started to have some wound dehiscence with purulent discharge for which patient was placed on Keflex however symptoms continued to get worse and the patient came to the hospital yesterday and was discharged home to follow-up with her surgeon however she cameback today due to worsening symptoms and due to pain . she denied any fever/chills, here in hospital patient was found to have mild leukocytosis, she was afebrile Review of Systems Review of Systems All other systems reviewed & are negative unless noted below or in HPI PMFSH Vaccinated for COVID-19?: Yes Medical History (Updated 11/04/21 @ 04:06 by Raj Oscar MD) Anxiety Arthritis Back pain Bronchitis Cellulitis DDD (degenerative disc disease) Depression Diabetes Diabetes mellitus, type 2 DJD (degenerative joint disease) Eczema GERD (gastroesophageal reflux disease) since being dx with thyroid problems Gout History of amputation of toe History of CVA in adulthood rt sided weakness Hyperlipidemia Hypertension Hyperthyroidism Menopause Neuropathy Osteoporosis Sleep apnea no machine Smoker quit 03/2021 Tachycardia Ulcerative colitis Surgical History History of carpal tunnel surgery of right wrist History of cholecystectomy History of endometrial ablation History of surgery on wrist carpal tunnel and ulnar nerve rt arm; carpal tunnel left History of thyroidectomy History of tonsillectomy History of tubal ligation Hx of angioplasty bilateral legs x2, 2 stents on R Hx of cataract surgery bilateral S/P angioplasty with stent rt leg Family History Father Bladder cancer Prostate cancer Diabetes Mother H/O blood clots Social History Smoking Status: Former smoker Tobacco Type: cigarettes Substance Use Type: None Social History Comments: Patient is . She resides with her spouse. She uses no DME. She is on disability due to chronic low back pain which she feels is from a work injury. Meds Medications and Allergies Allergies hydrocodone [From Vicodin] Allergy (Verified 11/03/21 21:01) Hallucinating Steroid Injection Allergy (Uncoded 11/03/21 21:01) Swelling Home Medications losartan 50 mg tablet 50 mg PO QAM htn 11/02/17 [History Confirmed 11/04/21] fluticasone propionate 50 mcg/actuation nasal spray,suspension (Flonase Allergy Relief) 1 spray intranasal QHS PRN Nasal Congestion 03/06/18 [History Confirmed 11/04/21] amitriptyline 25 mg tablet 50 mg PO HS insomnia 01/21/21 [History Confirmed 11/04/21] gabapentin 800 mg tablet 800 mg PO QID neuropathy 01/21/21 [History Confirmed 11/04/21] meloxicam 15 mg tablet 15 mg PO DAILY arthritis 01/21/21 [History Confirmed 11/04/21] nystatin 100,000 unit/gram topical ointment 1 applic topical TID PRN rash 03/10/21 [History Confirmed 11/04/21] aspirin 81 mg tablet,delayed release 81 mg PO DAILY PVD 05/02/21 [History Confirmed 11/04/21] clopidogrel 75 mg tablet 75 mg PO DAILY PVD 05/02/21 [History Confirmed 11/04/21] cyclobenzaprine 5 mg tablet 10 mg PO QHS PRN Muscle Spasm 05/02/21 [History Confirmed 11/04/21] metoprolol succinate 25 mg tablet,extended release 24 hr 50 mg PO DAILY tachycardia/overactive thyroid 05/02/21 [History Confirmed 11/04/21] levothyroxine 125 mcg tablet 125 mcg PO DAILY 09/27/21 [History Confirmed 11/04/21] sennosides 8.6 mg tablet (Senna Lax) 2 tab PO BID PRN constipation 30 days #120 tabs 10/09/21 [Rx Confirmed 11/04/21] atorvastatin 20 mg tablet (Lipitor) 40 mg PO QHS hyperlipidemia #30 tabs 10/17/21 [Rx Confirmed 11/04/21] oxycodone 5 mg tablet 5 - 10 mg PO Q4HR PRN pain 5 days #15 tabs 10/17/21 [Rx Confirmed 11/04/21] semaglutide 1 mg/dose (4 mg/3 mL) subcutaneous pen injector (Ozempic) 1 mg (0.75mL) subcut QWEEK #3 mL 10/17/21 [Rx Confirmed 11/04/21] duloxetine 30 mg capsule,delayed release 30 mg PO DAILY 11/04/21 [History Confirmed 11/04/21] glimepiride 4 mg tablet 4 mg PO DAILY 11/04/21 [History Confirmed 11/04/21] Exam Physical Exam Vital Signs: Temp Pulse Resp BP Pulse Ox O2 Del Method 97.3 F L 70 18 124/86 97 Room Air 11/04/21 02:35 11/04/21 02:35 11/04/21 02:35 11/04/21 02:35 11/04/21 02:35 11/04/21 02:35 Narrative: General: patient is alert and oriented HEENT: head atraumatic, normocephalic, moist mucous membranes, normal nose and ears, no throat lesions, normal conjunctiva Neck: supple no masses, no lymphadenopathy CVS: regular rate and rhythm, no murmurs or gallops Respiratory: clear to auscultation bilaterally, no wheezing or crackles, symmetric expansion GI: soft, nondistended, nontender, positive bowel sounds with no organomegaly Extremity: Infected looking wounds mid left lower extremity the first 1 is in the inner thigh and the second 1 is in the lateral side of the bella with purulent discharge and redness around the wounds Neuro: alert and oriented x3, normal speech, normal motor function Results Lab Results Labs: Laboratory Last Values Corrected WBC 12.1 X10E3/uL (3.8-11.6) H 11/04/21 00:55 Uncorrected WBC Count 12.1 x10E3/uL (4.5-11.0) H 11/04/21 00:55 RBC 4.13 x10E6/uL (3.60-5.00) 11/04/21 00:55 Hgb 12.0 g/dL (11.8-15.4) 11/04/21 00:55 Hct 38.6 % (34.0-46.4) 11/04/21 00:55 MCV 93.5 fl (80-100) 11/04/21 00:55 MCH 29.1 pg (24.7-34.3) 11/04/21 00:55 MCHC 31.1 g/dL (32.0-35.0) L 11/04/21 00:55 RDW 17.7 % (11.9-15.3) H 11/04/21 00:55 Plt Count 365 x10E3/uL (150-450) 11/04/21 00:55 MPV 7.2 fl (6.3-10.7) 11/04/21 00:55 Neut % (Auto) 59.8 % (.) 11/04/21 00:55 Lymph % (Auto) 28.7 % (.) 11/04/21 00:55 [place] % (Auto) 6.5 % (.) 11/04/21 00:55 Eos % (Auto) 3.7 % (.) 11/04/21 00:55 Baso % (Auto) 1.3 % (.) 11/04/21 00:55 Neut # (Auto) 7.3 x10E3/uL (1.8-7.7) 11/04/21 00:55 Lymph # (Auto) 3.5 x10E3/uL (1.00-4.8) 11/04/21 00:55 [place] # (Auto) 0.8 x10E3/uL (0.0-0.8) 11/04/21 00:55 Eos # (Auto) 0.4 x10E3/uL (0.0-0.45) 11/04/21 00:55 Baso # (Auto) 0.2 x10E3/uL (0.0-0.2) 11/04/21 00:55 Nucleated RBC % (auto) 0.1 % (0-0.5) 11/04/21 00:55 PHA Creatinine Clear 88.97 11/04/21 00:55 Sodium 137 mmol/L (136-146) 11/04/21 00:55 Potassium 4.0 mmol/L (3.5-5.1) 11/04/21 00:55 Chloride 99 mmol/L (95-114) 11/04/21 00:55 Carbon Dioxide 29.3 mmol/L (22.0-30.0) 11/04/21 00:55 BUN 9 mg/dL (9-23) 11/04/21 00:55 Creatinine 0.90 mg/dL (0.44-1.03) 11/04/21 00:55 Est GFR ( Amer) > 60 mL/Min 11/04/21 00:55 Est GFR (Non-Af Amer) > 60 mL/Min 11/04/21 00:55 Glucose 112 mg/dL (70-100) H 11/04/21 00:55 Calcium 8.8 mg/dL (8.2-10.2) 11/04/21 00:55 SARS Antigen (LFIA) Negative (Negative) 11/04/21 01:28 Microbiology Results Micro: Microbiology - Results from entire visit 11/04/21 01:28 Nasal SARS Antigen (LFIA) - Final A&P - Hospitalist Assessment/Plan (1) Diabetes mellitus: (2) Morbid obesity due to excess calories: (3) HTN (hypertension), benign: (4) Infection: Plan Assessment and plan *Sepsis due to left lower extremity postsurgical wound infection ? Admit to the floor on telemetry ? Keep the patient n.p.o. ? Blood cultures are pending ? Start patient on vancomycin and Zosyn ? Continue to monitor vital signs closely ? Get a CT scan of the left lower extremity with contrast to rule out any abscesses given the fluctuation on physical exam ? Vascular surgery consult *Chronic medical issues 1. Hypertension, continue Toprol-XL and hold losartan 2. Type 2 diabetes mellitus, hold glimepiride start patient on detemir 15 unitswith sliding scale insulin 3. History of PAD, continue home dose Plavix/aspirin and statin *DVT prophylaxis with Lovenox Documented By: Raj Oscar MD 2 [id number] Signed By: <Electronically signed by Raj Oscar MD> 11/04/21 0408 [facility] Work Phone: History and physical note Author Casa Givens [facility] January 28, 2023 7:18pm Note Date/Time January 28, 2023 7:14pm [facility] [address] [place] [address] Hospitalist H&P Signed Patient: Ema Neff MR#: [id number] : 1965 Acct:[id number] Age/Sex: 58 / F Adm Date: 3 Loc: 4N Room: [address] [place] [address] Type: ADM IN Attending Dr: Casa Givens DO Copies to: DO Jarvis Lane MD~ HPI DATE OF EXAMINATION: 01/28/23 CHIEF COMPLAINT: L toe infection HISTORY OF PRESENT ILLNESS: Pt is a 58 y/o F with PMHx of PVD sp L 2nd toe amputation, HTN/HLD, hypothyroid,DM2, chronic back pain who presents with worsening L 3rd toe discoloration and pain. Pt states that she had her L 2nd toe amputated about a year ago and was following up with podiatry for wound care. States that site has remained non-problematic and unchanged, but states about a week ago, she dropped her phone onher L 3rd toe and states the impact from the phone caused her top layer of skin to come off. She was doing local wound care to the area as she used to do with her other toe and states it continued to change colors, she noticed discharge and became more painful. States she attempted to get a podiatry appt, but the earliest they had was today, but pt was in too much pain to wait so she came to the ED. States her appetite has not been good for the last couple of days due tothe pain, but otherwise denies fevers, chills, cough, congestion, sob, palpitations, cp, abd pain, N/V/D. In the ED, vitals stable, afebrile. Labs largely unremarkable. XR of the L foot with cellulitis changes but no definitiveOM noted. Blood and foot cultures were drawn. Pt was given IV abx in the ED. ED spoke with podiatry who recommended admission to rule out OM given the gangrenous appearance and gas noted on palpation. Pt admitted for L 3rd toe gangrene and to rule out OM. Podiatry and ID consulted. MRI ordered. Review of Systems Review of Systems All other systems reviewed & are negative unless noted below or in HPI [facility] Medical History (Updated 01/28/23 @ 18:41 by Chino Peraza DO) Anxiety Arthritis Back pain Bronchitis Cellulitis DDD (degenerative disc disease) Depression Diabetes Diabetes mellitus, type 2 DJD (degenerative joint disease) Eczema GERD (gastroesophageal reflux disease) since being dx with thyroid problems Gout History of amputation of toe History of CVA in adulthood rt sided weakness Hyperlipidemia Hypertension Hyperthyroidism Menopause Neuropathy Osteoporosis Retinal artery occlusion right eye, is receiving injections. Sleep apnea no machine Smoker quit 03/2021 Tachycardia Ulcerative colitis Surgical History History of carpal tunnel surgery of right wrist History of cholecystectomy History of endometrial ablation History of surgery on wrist carpal tunnel and ulnar nerve rt arm; History of thyroidectomy History of tonsillectomy History of tubal ligation Hx of angioplasty bilateral legs x2, 2 stents on R Hx of cataract surgery bilateral S/P angioplasty with stent rt leg and left leg graft Family History Father Bladder cancer Prostate cancer Diabetes Mother H/O blood clots Social History Smoking Status: Former smoker Tobacco Type: cigarettes Substance Use Type: None Social History Comments: mobile home Meds Medications and Allergies Allergies hydrocodone [From Vicodin] Allergy (Verified 01/28/23 14:35) Hallucinating Steroid Injection Allergy (Uncoded 01/28/23 14:35) Swelling Home Medications losartan 50 mg tablet 50 mg PO QAM htn 11/02/17 [History Confirmed 10/20/22] fluticasone propionate 50 mcg/actuation nasal spray,suspension (Flonase Allergy Relief) 1 spray intranasal QHS PRN Nasal Congestion 03/06/18 [History Confirmed 10/20/22] amitriptyline 25 mg tablet 50 mg PO QHS PRN Insomnia 01/21/21 [History Confirmed 10/20/22] gabapentin 800 mg tablet 800 mg PO QID neuropathy 01/21/21 [History Confirmed 10/20/22] meloxicam 15 mg tablet 15 mg PO QAM arthritis 01/21/21 [History Confirmed 10/20/22] nystatin 100,000 unit/gram topical ointment 1 applic topical TID PRN rash 03/10/21 [History Confirmed 10/20/22] aspirin 81 mg tablet,delayed release 81 mg PO QAM PVD 05/02/21 [History Confirmed 10/20/22] clopidogrel 75 mg tablet 75 mg PO QAM PVD 05/02/21 [History Confirmed 10/20/22] cyclobenzaprine 5 mg tablet 10 mg PO QHS PRN Muscle Spasm 05/02/21 [History Confirmed 10/20/22] metoprolol succinate 25 mg tablet,extended release 24 hr 50 mg PO QAM tachycardia/overactive thyroid 05/02/21 [History Confirmed 10/20/22] levothyroxine 125 mcg tablet 150 mcg PO QAM 09/27/21 [History Confirmed 10/20/22] sennosides 8.6 mg tablet (Senna Lax) 2 tab PO BID PRN constipation 30 days #120 tabs 10/09/21 [Rx Confirmed 10/20/22] glimepiride 4 mg tablet 4 mg PO QAM 11/04/21 [History Confirmed 10/20/22] atorvastatin 20 mg tablet (Lipitor) 40 mg PO QAM hyperlipidemia 12/26/21 [History Confirmed 10/20/22] collagenase clostridium histo. 250 unit/gram topical ointment (Santyl) 1 applic topical DAILY 08/20/22 [History Confirmed 10/20/22] duloxetine 30 mg capsule,delayed release 30 mg PO QAM 08/20/22 [History Confirmed 10/20/22] omeprazole 40 mg capsule,delayed release 40 mg PO QAM 08/20/22 [History Confirmed 10/20/22] oxycodone-acetaminophen 5 mg-325 mg tablet 1 - 2 tab PO Q4-6H PRN Pain 08/20/22 [History Confirmed 10/20/22] semaglutide 1 mg/dose (4 mg/3 mL) subcutaneous pen injector (Ozempic) 1 mg subcut QWEEK diabetes 08/20/22 [History Confirmed 10/20/22] Exam Physical Exam Vital Signs: Temp Pulse Resp BP Pulse Ox O2 Del Method 97.3 F L 92 H 20 139/79 98 Room Air 01/28/23 14:36 01/28/23 16:56 01/28/23 16:56 01/28/23 16:56 01/28/23 16:56 01/28/23 16:56 Narrative: General: Awake and alert. Sitting in bed comfortably HEENT: Normocephalic, atraumatic, trachea midline Respiratory: good inspiratory effort, no wheeze, no rhonchi, no crackles Cardiovascular: RRR, normal S1 and S2 Abdominal: soft, non-distended, no tenderness, no rebound, no guarding, +BS Skin: warm, dry, L 2nd toe amputation. L 3rd toe with black eschar over dorsal aspect with purulence and surrounding erythema. Bilateral LE discoloration due to chronic venous stasis skin changes and PVD MSK: no edema Neurologic: No focal deficits Psych: appropriate affect Results Lab Results Labs: Laboratory Last Values Corrected WBC 12.9 X10E3/uL (3.8-11.6) H 01/28/23 16:30 Uncorrected WBC Count 12.9 x10E3/uL (3.8-11.6) H 01/28/23 16:30 RBC 5.30 X10E6/uL (3.60-5.00) H 01/28/23 16:30 Hgb 16.6 g/dL (11.8-15.4) H 01/28/23 16:30 Hct 49.8 % (34.0-46.4) H 01/28/23 16:30 MCV 94.0 fl (80-100) 01/28/23 16: MCH 31.3 pg (24.7-34.3) 01/28/23 16:30 MCHC 33.3 g/dL (32.0-35.0) 01/28/23 16:30 RDW 14.3 % (11.9-15.3) 01/28/23 16:30 Plt Count 315 x10E3/uL (150-450) 01/28/23 16: MPV 7.0 fl (6.3-10.7) 01/28/23 16:30 Neut % (Auto) 73.6 % (.) 01/28/23 16:30 Lymph % (Auto) 19.7 % (.) 01/28/23 16:30 [place] % (Auto) 5.0 % (.) 01/28/23 16:30 Eos % (Auto) 0.4 % (.) 01/28/23 16:30 Baso % (Auto) 1.3 % (.) 01/28/23 16:30 Nucleat RBC Rel Count 0.1 /100 WBC (0-0.5) 01/28/23 16:30 Neut # (Auto) 9.5 x10E3/uL (1.8-7.7) H 01/28/23 16:30 Lymph # (Auto) 2.5 x10E3/uL (1.00-4.8) 01/28/23 16:30 [place] # (Auto) 0.6 x10E3/uL (0.0-0.8) 01/28/23 16:30 Eos # (Auto) 0.1 x10E3/uL (0.0-0.45) 01/28/23 16:30 Baso # (Auto) 0.2 x10E3/uL (0.0-0.2) 01/28/23 16:30 Monocyte Dist Width 20.03 % (0.00-20.00) H 01/28/23 16:30 ESR 30 mm/hr (0-29) H 01/28/23 16:30 PHA Creatinine Clear 85.52 01/28/23 16:30 Sodium 139 mmol/L (136-145) 01/28/23 16:30 Potassium 4.3 mmol/L (3.5-5.1) 01/28/23 16:30 Chloride 103 mmol/L (98-107) 01/28/23 16:30 Carbon Dioxide 31.9 mmol/L (21.0-31.0) H 01/28/23 16:30 Anion Gap 8.4 mEq/L (6.0-15.0) 01/28/23 16:30 BUN 11 mg/dL (7-25) 01/28/23 16:30 Creatinine 0.87 mg/dL (0.60-1.20) 01/28/23 16:30 Est GFR (CKD-EPI) > 60.0 mL/Min 01/28/23 16:30 Glucose 98 mg/dL (70-100) 01/28/23 16:30 Lactic Acid 0.9 mmol/L (0.5-2.2) 01/28/23 16:30 Calcium 9.1 mg/dL (8.6-10.3) 01/28/23 16:30 Total Bilirubin 0.5 mg/dl (0.3-1.0) 01/28/23 16:30 AST 17 U/L (13-39) 01/28/23 16:30 ALT 10 U/L (7-52) 01/28/23 16:30 Alkaline Phosphatase 73 U/L (34-104) 01/28/23 16:30 C-Reactive Prot, Quant 0.5 mg/dL (0.0-0.5) 01/28/23 16:30 Total Protein 7.3 gm/dL (6.4-8.9) 01/28/23 16:30 Albumin 3.9 gm/dL (3.5-5.7) 01/28/23 16:30 Globulin 3.4 gm/dL 01/28/23 16:30 Albumin/Globulin Ratio 1.1 01/28/23 16:30 Assessment & Plan Assessment/Plan (1) Dry gangrene: (2) Diabetic foot infection: (3) PVD (peripheral vascular disease): Plan # L 3rd toe dry gangrene with surrounding cellulitis - worsened due to diabetes and PVD - dropped phone on foot 1 week ago and toe progressed to gangrene with purulence - XR with cellulitis, but no OM noted - MRI ordered - blood and wound cultures obtained - started on empiric IV abx - will continue - podiatry, vascular surgery, and ID consulted - appreciate recs - wound care consulted - holding anticoagulation - pain control - PT/OT when able # HTN/HLD/PVD - cont home meds # Hypothyroid - cont home meds # DM2 - ISS while admitted. Resume home regimen at discharge DVT: holding for possible surgical intervention by podiatry Disposition: Pt with progressing L 3rd toe gangrene with surrounding cellulitis.MRI to rule out OM. ID, vascular surgery and podiatry consulted. Cont empiric abx. Follow cultures. Pt/OT when able IP vs OBS Justification Based on differential dx, clinical care plan, and risk of adverse events, if untreated, in my clinical judgement this patient requires an acute care setting as: INPATIENT because of an expectation of an over 2 midnight stay. Estimated length of stay (# of days): 5 Time Spent With Patient (min): 45 Documented By: Casa Givens DO 01/28/23 190 5 Signed By: <Electronically signed by Casa Givens DO> 01/28/[address] [facility] Work Phone: History general Narrative - Reported* Type Description Date Medical History hypertension Medical History DM Medical History PAD Surgical History colonoscopy 2013 Surgical History tonsillectomy and adenoidectomy Surgical History cholecystectomy Surgical History Cholecystectomy 1998 Surgical History ablasion Surgical History Tonsillectomy 1967 Surgical History Bilateral tubal ligation 1987 Surgical History left cataract removal Surgical History Multiple interlaminar epidural injections Surgical History cataract removal Surgical History polypectomy Surgical History endometrial ablation Surgical History Right posterior tibial atherect norberto and angioplasty 01/21/21 Hospitalization History natural childbirth x3 VBOX Other History general Narrative - Reported* Type Description Date Medical History hypertension Medical History DM Medical History PAD Medical History thyroid nodule Medical History goiter Surgical History colonoscopy 2013 Surgical History tonsillectomy and adenoidectomy Surgical History cholecystectomy Surgical History Cholecystectomy 1998 Surgical History ablasion Surgical History Tonsillectomy 1967 Surgical History Bilateral tubal ligation 1987 Surgical History left cataract removal Surgical History Multiple interlaminar epidural injections Surgical History cataract removal Surgical History polypectomy Surgical History endometrial ablation Surgical History Right posterior tibial atherect norberto and angioplasty 01/21/21 Surgical History thyroidectomy 07/2021 Surgical History angiogram 07/2021 Hospitalization History natural childbirth x3 Hospitalization History See Above VBOX Other History general Narrative - Reported* Type Description Date Medical History hypertension Medical History DM Medical History PAD Medical History thyroid nodule Medical History goiter Surgical History colonoscopy 2013 Surgical History tonsillectomy and adenoidectomy Surgical History cholecystectomy Surgical History Cholecystectomy 1998 Surgical History ablasion Surgical History Tonsillectomy 1967 Surgical History Bilateral tubal ligation 1987 Surgical History left cataract removal Surgical History Multiple interlaminar epidural injections Surgical History cataract removal Surgical History polypectomy Surgical History endometrial ablation Surgical History Right posterior tibial atherect norberto and angioplasty 01/21/21 Surgical History thyroidectomy 07/2021 Surgical History angiogram 07/2021 Surgical History angiogram/angioplasty l leg ped al 09/2021 Surgical History I & D with wound vac applicatio n 10/2021 Hospitalization History natural childbirth x3 Hospitalization History See Above VBOX Other Hospital Discharge instructions Additional Instructions Follow-up with your primary care doctor and motor polarizer Return to the ED if you develop worsening symptoms [facility] Work Phone: Hospital Discharge instructions Additional Instructions DISCHARGE INSTRUCTIONS FOR FOOT AND ANKLE SURGERY The following instructions must be followed very closely: -If you need pain pills, start before pain becomes intense. Antibiotics and pain pills are frequently less upsetting to your stomach if you take them with food such as crackers or bread. -If you have excessive or persistent pain, swelling, bleeding, nausea, vomiting, or any other problems, you should first call your surgeon for advice. If you are unable to contact your surgeon, seek help from a hospital emergency room. If you were given drugs to make you drowsy and or pain medications, follow these instructions: -You should spend the remainder of the day and evening resting. -You should not attempt to walk, including going to the bathroom, without assistance. You may be lightheaded from the medications you received. -Eat light today to avoid nausea. You should be able to return to your normal diet 24-36 hours after surgery. -For the next 24 hours you should not consume alcohol, attempt to drive, use any power tools, sign important documents or make important personal or business decisions. After that do so only if you feel perfectly normal and alert. -Follow carefully any verbal or written instructions you surgeon may have given you. DIET -Salt can affect circulation to your extremities- limit your daily intake to less than 2 grams per day during your recovery period. ACTIVITY -When out of bed: Postop shoe must be worn bilaterally. Minimal weightbearing is allowed however prolonged standing, weightbearing, or having foot hang down in a dependent position is contraindicated and not advised. Use walker/wheelchair as able to reduce pressure on both feet. -Restrict your activity and stay off your foot as much as possible, until instructed otherwise. -Elevate your foot/ankle above your heart level- bend your knees slightly. -Keep bandages/dressings clean, dry, and intact. -Do NOT attempt to shower or bathe using a plastic bag over the bandage, because they leak and the condensation will soak the bandages, as well. Sponge bathe only, until instructed to do differently by your doctor. MEDICATIONS -Medications as prescribed. OTHER -Smoking significantly affects circulation to your lower extremities. DO NOT smoke. FOLLOW UP -If you have any problems or concerns before your first post-op visit, call the office at [phone] anytime. We have an answering service which will contact the doctor at anytime. -Call the office to schedule a post-operative appointment.[facility] Work Phone: Hospital Discharge instructions Additional Instructions DISCHARGE INSTRUCTIONS FOR FOOT AND ANKLE SURGERY The following instructions must be followed very closely: -If you need pain pills, start before pain becomes intense. Antibiotics and pain pills are frequently less upsetting to your stomach if you take them with food such as crackers or bread. -If you have excessive or persistent pain, swelling, bleeding, nausea, vomiting, or any other problems, you should first call your surgeon for advice. If you are unable to contact your surgeon, seek help from a hospital emergency room. -Follow carefully any verbal or written instructions you surgeon may have given you. DIET -Salt can affect circulation to your extremities- limit your daily intake to less than 2 grams per day during your recovery period. ACTIVITY -Full weightbearing is allowed bilaterally with postop shoe intact and walker for further offloading assistance. Please limit any weightbearing and walking/standing. -Restrict your activity and stay off your foot as much as possible, until instructed otherwise. -Elevate your foot/ankle above your heart level- bend your knees slightly. -Keep bandages/dressings clean, dry, and intact today then begin dressing changes tomorrow as patient has been applying prior to today's surgery. -Do NOT attempt to shower or bathe using a plastic bag over the bandage, because they leak and the condensation will soak the bandages, as well. Sponge bathe only, until instructed to do differently by your doctor. MEDICATIONS -Medications as prescribed. OTHER -Smoking significantly affects circulation to your lower extremities. DO NOT smoke. FOLLOW UP -If you have any problems or concerns before your first post-op visit, call the office at [phone] anytime. We have an answering service which will contact the doctor at anytime. -Call the office to schedule a post-operative appointment.[facility] Work Phone: Hospital Discharge instructionsAmbulatory Orders* Initiate Home Health Time Frame: 1 Day, Location: Determined By Patient Additional Instructions Dr. Thrasher is aware of possible need for pain medication changes, please call his office with any concerns and follow up as scheduled. Home health to manage: - PT/OT to eval and treat - Monitor VS routine - Hx. HTN - Monitor blood sugars - Dx. DM - Monitor for s/s of infection - Dx. Gangrene of left 3rd toe with debridement 02/01/23 - Vascular assessments - Dx. Left foot ulcer - Routine skin assessments/care - Wound care: -- Daily - Betadine swab to left 3rd toe dry black eschar. -- Daily - Left 2nd toe amputation site- Soak with Vashe and gently pat dry. Santyl to the wound bed. Cover with DSD and secure with paper tape. -- Daily - Flush wounds daily with Vashe wound wash and dressed with Santyl ointment, Adaptic cut to fit the wounds, 4 x 4's, Kerlix and paper tape. -- Postop shoe to ambulate with dressing in place. - PICC line - routine assessments/care - placed 02/01/23 LUE - Medication management - IV antibiotics as ordered - Fall precautions - [facility] Work Phone: Hospital Discharge instructions Additional Instructions DISCHARGE INSTRUCTIONS FOR FOOT AND ANKLE SURGERY The following instructions must be followed very closely: -If you need pain pills, start before pain becomes intense. Antibiotics and pain pills are frequently less upsetting to your stomach if you take them with food such as crackers or bread. -If you have excessive or persistent pain, swelling, bleeding, nausea, vomiting, or any other problems, you should first call your surgeon for advice. If you are unable to contact your surgeon, seek help from a hospital emergency room. If you were given drugs to make you drowsy and or pain medications, follow these instructions: -You should spend the remainder of the day and evening resting. -You should not attempt to walk, including going to the bathroom, without assistance. You may be lightheaded from the medications you received. -Eat light today to avoid nausea. You should be able to return to your normal diet 24-36 hours after surgery. -For the next 24 hours you should not consume alcohol, attempt to drive, use any power tools, sign important documents or make important personal or business decisions. After that do so only if you feel perfectly normal and alert. -Follow carefully any verbal or written instructions you surgeon may have given you. DIET -Salt can affect circulation to your extremities- limit your daily intake to less than 2 grams per day during your recovery period. ACTIVITY -Postop shoe must be worn bilaterally when out of bed, use walker for further assistance, reduce forefoot pressure bilaterally. -Restrict your activity and stay off your foot as much as possible, until instructed otherwise. -Elevate your foot/ankle above your heart level- bend your knees slightly. -Keep bandages/dressings clean, dry, and intact. -Do NOT attempt to shower or bathe using a plastic bag over the bandage, because they leak and the condensation will soak the bandages, as well. Sponge bathe only, until instructed to do differently by your doctor. MEDICATIONS -Medications as prescribed. OTHER -Smoking significantly affects circulation to your lower extremities. DO NOT smoke. FOLLOW UP -If you have any problems or concerns before your first post-op visit, call the office at [phone] anytime. We have an answering service which will contact the doctor at anytime. -Call the office to schedule a post-operative appointment.[facility] Work Phone: Progress note Author Adithya Rm [facility] October 12, 2021 7:56pm Note Date/Time October 12, 2021 7:56 pm [facility] [address] [place] [address] Internal Med Progress Note Signed Patient: Ema Neff MR#: [id number] : 1965 Acct:[id number] Age/Sex: 56 / F Adm Date: 2 Loc: Room: [address] [place] [address] Type: DIS IN Attending Dr: Adithya Rm DO Copies to: ~ Date of Service: 10/12/2021 Internal Medicine Subjective Subjective HPI: This patient was discharged on October 10. Here on October 12 culture results came back from the deep wound culture from the podiatry surgery from Dr. Mehta. [facility] got hold of me with hospitalist services. She is growing Staph epidermidis with light growth. It is resistant to the Keflex thatI sent her home on. It is also resistant to the doxycycline it looks like she was taking at home before a couple weeks ago before being hospitalized. The patient is planned to return to the hospital on October 13, for a vascular surgery procedure. I am sending a prescription for clindamycin electronically to the retail pharmacy here at [facility] so she can pick it up onthe same day. Exam Physical Exam Vital Signs: Temp Pulse Resp BP Pulse Ox O2 Del Method O2 Flow Rate 98 F 90 18 110/79 95 Room Air 6 10/09/21 08:00 10/09/21 08:00 10/09/21 08:00 10/09/21 08:00 10/09/21 08:00 10/09/21 08:00 10/07/21 19:04 FiO2 30 10/01/21 15:00 Internal Med Results Microbiology Microbiology: 10/07/21 18:30 Aerobic Culture - Final Foot,Left - Other Anaerobic Culture - Final No Anaerobes Isolated 3 Days Gram Stain - Final 10/07/21 18:30 Aerobic Culture - Final Foot,Left - Other Staphylococcus epidermidis Anaerobic Culture - Final No Anaerobes Isolated 3 Days Gram Stain - Final Internal Med A&P (1) 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: Plan: Growth of Staph epidermidis from a deep wound culture from podiatric surgery by Dr. Mehta on 10/07/2021. (2) Ulcer of right foot with fat layer exposed: (3) Peripheral vascular occlusive disease: (4) Osteomyelitis: Documented By: Adithya Rm DO 1952 Signed By: <Electronically signed by Adithya Rm DO> 10/12/211955 [facility] Work Phone: Progress note Author Dean Rodriguez [facility] November 04, 2021 2:51pm Note Date/Time November 04, 2021 2: 51pm [facility] [address] [place] [address] Hospitalist Progress Note Signed Patient: Ema Neff MR#: [id number] : 1965 Acct:[id number] Age/Sex: 56 / F Adm Date: 2 Loc: Room: [address] [place] [address] Type: ADM IN Attending Dr: Dean Rodriguez MD Copies to: ~ Date of Service: 11/04/2021 Subjective Subjective Narrative: Patient is resting in bed. She has some pain at the surgical sites. On examination, the surgical incisions are dehisced, with drainage of small amountsof purulent material. No bleeding. Heart is regular Lungs clear Neurological nonfocal Assessment and plan problem 1. Postoperative infection. Patient had undergone on October 13,Left tibial to peroneal artery bypass, from greater saphenous vein. Cultures obtained and will be followed. Full surgical consult is pending. Continue broad-spectrum antibiotic therapy with Zosyn and vancomycin day 2. Continue dual antiplatelets Will maximize statin therapy after lipid panel tomorrow Pain control Other chronic medical comorbidities include PVD Dyslipidemia Diabetes mellitus type2 Hypothyroidism Hypertension Gout Obesity class III BMI 42 Anxiety depression GERD Sleep apnea Cerebrovascular disease and history of right-sided weakness Exam Physical Exam Vital Signs: Temp Pulse Resp BP Pulse Ox O2 Del Method 97.5 F L 58 L 18 100/69 95 Room Air 11/04/21 08:00 11/04/21 12:00 11/04/21 12:00 11/04/21 12:00 11/04/21 12:00 11/04/21 12:00 Objective Lab Results CBC & Chem 7: 11/04/21 04:34 11/04/21 04:34 Microbiology Results Microbiology 11/04/21 01:28 Nasal SARS Antigen (LFIA) - Final Meds Allergies and Active Meds Allergies hydrocodone [From Vicodin] Allergy (Verified 11/03/21 21:01) Hallucinating Steroid Injection Allergy (Uncoded 11/03/21 21:01) Swelling Active Meds: Active Medications Generic Name Dose Route Start Last Admin Trade Name Freq PRN Reason Stop Dose Admin Acetaminophen 1,000 mg 11/04/21 14:00 11/04/21 14:25 Acetaminophen 500 Mg Tablet PO 11/04/22 13:59 Not Given QID PAULINO Amitriptyline HCl 50 mg 11/04/21 22:00 Amitriptyline 50 Mg Tablet PO 11/04/22 21:59 HS PAULINO Aspirin 81 mg 11/04/21 09:00 11/04/21 09:26 Aspirin 81 Mg Tablet. PO 11/04/22 08:59 81 mg DAILY PAULINO Administration Atorvastatin Calcium 40 mg 11/04/21 22:00 Atorvastatin 40 Mg Tablet PO 11/04/22 21:59 QHS PAULINO Clopidogrel Bisulfate 75 mg 11/04/21 09:00 11/04/21 09:26 Clopidogrel Bisulfate 75 Mg Tablet PO 11/04/22 08:59 75 mg DAILY PAULINO Administration Collagenase 1 applic 11/04/21 09:45 11/04/21 14:21 Collagenase 250 Unit/Gm Oint 30 Gm Tube TOPICAL 11/14/21 09:44 1 applic DAILY PAULINO Administration Dextrose 0 gm 11/04/21 03:59 Dextrose 50% In Water 25 Gm/50 Ml Syringe IV-PUSH 11/04/22 03:58 PRN PRN Hypoglycemia Duloxetine HCl 30 mg 11/04/21 09:00 11/04/21 09:26 Duloxetine 30 Mg Capsule. PO 11/04/22 08:59 30 mg DAILY PAULINO Administration Enoxaparin Sodium 40 mg 11/04/21 10:00 11/04/21 10:44 Enoxaparin 40 Mg/0.4 Ml Syringe SUBCUT 11/04/22 09:59 40 mg DAILY@10 PAULINO Administration Fluticasone Propionate 1 spray 11/04/21 03:55 Fluticasone Propionate Greenbush 120 Greenbush/16 Gm Bottle INTRANASAL 11/04/22 03:54 QHS PRN Nasal Congestion Gabapentin 800 mg 11/04/21 09:00 11/04/21 14:22 Gabapentin 800 Mg Tablet PO 11/04/22 08:59 800 mg QID PAULINO Administration Glucose 0 gm 11/04/21 03:59 Dextrose 40% Gel 15 Gm Tube PO 11/04/22 03:58 PRN PRN Hypoglycemia Hydromorphone HCl 1 mg 11/04/21 12:15 11/04/21 12:41 Hydromorphone 1 Mg/Ml Syringe IV-PUSH 1 mg Q2H PRN Administration pain Sodium Chloride 1,000 mls @ 100 mls/hr 11/04/21 04:00 11/04/21 04:34 0.9% Sodium Chloride 1,000 Ml IV 11/04/22 03:59 100 mls/hr .Q10H PAULINO Administration Potassium Chloride 20 meq/ 260 mls @ 130 mls/hr 11/04/21 03:51 Sodium Chloride IV 11/04/22 03:50 DAILY PRN Hypokalemia Potassium Chloride 40 meq/ 520 mls @ 130 mls/hr 11/04/21 03:51 Sodium Chloride IV 11/04/22 03:50 DAILY PRN Hypokalemia Piperacillin Sod/Tazobactam Sod 4.5 gm in 100 mls @ 200 mls/hr 11/04/21 08:00 11/04/21 14:26 Zosyn IV 200 mls/hr Q6H PAULINO Administration Vancomycin HCl 1.25 gm/ 275 mls @ 183.333 mls/hr 11/04/21 13:30 11/04/21 12:46 Dextrose IV 11/04/22 13:29 183.33 mls/hr Q12H PAULINO Administration Insulin Aspart 0 units 11/04/21 08:00 11/04/21 12:44 Insulin Aspart 300 Units/3 Ml Insuln.Pen SUBCUT 11/04/22 07:59 Not Given TID.WM.HS [facility] Protocol Insulin Detemir 10 units 11/04/21 09:00 11/04/21 11:48 Insulin Detemir 300 Units/3 Ml Insuln.Pen SUBCUT 11/04/22 08:59 10 units DAILY PAULINO Administration Levothyroxine Sodium 125 mcg 11/04/21 06:30 11/04/21 06:38 Levothyroxine 125 Mcg Tablet PO 11/04/22 06:29 125 mcg DAILY@0630 PAULINO Administration Metoprolol Succinate 50 mg 11/04/21 09:00 11/04/21 09:26 Metoprolol Succinate 50 Mg Tab.Er.24h PO 11/04/22 08:59 50 mg DAILY PAULINO Administration Ondansetron HCl 4 mg 11/04/21 03:51 Ondansetron 4 Mg/2 Ml Vial IV-PUSH 11/04/22 03:50 Q8H PRN Nausea And Vomiting Oxycodone HCl 5 mg 11/04/21 12:15 Oxycodone Ir 5 Mg Tablet PO Q4HR PRN pain Sodium Chloride 0 ml 11/03/21 21:00 11/04/21 01:36 Sodium Chloride 0.9 % 10 Ml Syringe IV-PUSH 11/03/22 20:59 10 ml PRN PRN Administration Flush Vancomycin HCl 1 each 11/04/21 03:51 Vancomycin - Pharmacy Dosing 1 Each Miscell IV PRN PRN ZZ.Pharmacy Consult Protocol Documented By: Dean Rodriguez MD 11/04/21 1448 Signed By: <Electronically signed by Dean Rodriguez MD> 11/04/[address] [facility] Work Phone: Progress note Author Dean Rodriguez [facility] November 05, 2021 2:23pm Note Date/Time November 05, 2021 2: 23pm [facility] [address] [place] [address] Hospitalist Progress Note Signed Patient: Ema Neff MR#: [id number] : 1965 Acct:[id number] Age/Sex: 56 / F Adm Date: 2 Loc: Room: [address] [place] [address] Type: ADM IN Attending Dr: Dean Rodriguez MD Copies to: ~ Date of Service: 11/05/2021 Subjective Subjective Narrative: Patient is resting in bed. Her pain is controlled. No other new issues. She is awaiting surgical I&D. Heart is regular Lungs clear Neurological nonfocal Assessment and plan problem 1. Postoperative infection. Patient had undergone on October 13,Left tibial to peroneal artery bypass, from greater saphenous vein. Cultures so far no growth. Surgical debridement and wound VAC placement planned for today. Continue broad-spectrum antibiotic therapy with Zosyn and vancomycin day 3. Continue dual antiplatelets Maximize statin therapy Pain control Other chronic medical comorbidities include PVD Dyslipidemia Diabetes mellitus type2 Hypothyroidism Hypertension Gout Obesity class III BMI 42 Anxiety depression GERD Sleep apnea Cerebrovascular disease and history of right-sided weakness Exam Physical Exam Vital Signs: Temp Pulse Resp BP Pulse Ox O2 Del Method 97.4 F L 62 18 105/78 97 Room Air 11/05/21 12:00 11/05/21 12:00 11/05/21 12:00 11/05/21 12:41 11/05/21 12:00 11/05/21 12:00 Objective Lab Results CBC & Chem 7: 11/04/21 04:34 11/04/21 04:34 Microbiology Results Microbiology 11/04/21 04:29 Blood - Right Antecubital Blood Culture - Preliminary No Growth 1 Day 11/04/21 04:34 Blood - Right Hand Blood Culture - Preliminary No Growth 1 Day Meds Allergies and Active Meds Allergies hydrocodone [From Vicodin] Allergy (Verified 11/03/21 21:01) Hallucinating Steroid Injection Allergy (Uncoded 11/03/21 21:01) Swelling Active Meds: Active Medications Generic Name Dose Route Start Last Admin Trade Name Jamesq PRN Reason Stop Dose Admin Acetaminophen 1,000 mg 11/04/21 14:00 11/05/21 09:37 Acetaminophen 500 Mg Tablet PO 11/04/22 13:59 Not Given QID [facility] Amitriptyline HCl 50 mg 11/04/21 22:00 11/04/21 21:08 Amitriptyline 50 Mg Tablet PO 11/04/22 21:59 50 mg HS PAULINO Administration Aspirin 81 mg 11/04/21 09:00 11/05/21 09:37 Aspirin 81 Mg Tablet. PO 11/04/22 08:59 Not Given DAILY PAULINO Atorvastatin Calcium 40 mg 11/04/21 22:00 11/04/21 21:09 Atorvastatin 40 Mg Tablet PO 11/04/22 21:59 40 mg QHS PAULINO Administration Clopidogrel Bisulfate 75 mg 11/04/21 09:00 11/05/21 09:37 Clopidogrel Bisulfate 75 Mg Tablet PO 11/04/22 08:59 Not Given DAILY PAULINO Collagenase 1 applic 11/04/21 09:45 11/05/21 09:39 Collagenase 250 Unit/Gm Oint 30 Gm Tube TOPICAL 11/14/21 09:44 1 applic DAILY PAULINO Administration Dextrose 0 gm 11/04/21 03:59 Dextrose 50% In Water 25 Gm/50 Ml Syringe IV-PUSH 11/04/22 03:58 PRN PRN Hypoglycemia Duloxetine HCl 30 mg 11/04/21 09:00 11/05/21 09:27 Duloxetine 30 Mg Capsule. PO 11/04/22 08:59 30 mg DAILY PAULINO Administration Fluticasone Propionate 1 spray 11/04/21 03:55 Fluticasone Propionate Greenbush 120 Greenbush/16 Gm Bottle INTRANASAL 11/04/22 03:54 QHS PRN Nasal Congestion Gabapentin 800 mg 11/04/21 09:00 11/05/21 09:27 Gabapentin 800 Mg Tablet PO 11/04/22 08:59 800 mg QID PAULINO Administration Glucose 0 gm 11/04/21 03:59 Dextrose 40% Gel 15 Gm Tube PO 11/04/22 03:58 PRN PRN Hypoglycemia Hydromorphone HCl 1 mg 11/04/21 12:15 11/05/21 12:52 Hydromorphone 1 Mg/Ml Syringe IV-PUSH 1 mg Q2H PRN Administration pain Piperacillin Sod/Tazobactam Sod 4.5 gm in 100 mls @ 200 mls/hr 11/04/21 08:00 11/05/21 06:59 Zosyn IV 200 mls/hr Q6H PAULINO Administration Vancomycin HCl 1.25 gm/ 275 mls @ 183.333 mls/hr 11/04/21 13:30 11/05/21 13:21 Dextrose IV 11/04/22 13:29 183.3 mls/hr Q12H PAULINO Administration Insulin Aspart 0 units 11/04/21 08:00 11/05/21 12:44 Insulin Aspart 300 Units/3 Ml Insuln.Pen SUBCUT 11/04/22 07:59 Not Given TID.WM.HS [facility] Protocol Insulin Detemir 10 units 11/04/21 09:00 11/05/21 09:37 Insulin Detemir 300 Units/3 Ml Insuln.Pen SUBCUT 11/04/22 08:59 Not Given DAILY [facility] Levothyroxine Sodium 125 mcg 11/04/21 06:30 11/05/21 06:57 Levothyroxine 125 Mcg Tablet PO 11/04/22 06:29 125 mcg DAILY@0630 PAULINO Administration Metoprolol Succinate 50 mg 11/04/21 09:00 11/05/21 09:38 Metoprolol Succinate 50 Mg Tab.Er.24h PO 11/04/22 08:59 Not Given DAILY PAULINO Ondansetron HCl 4 mg 11/04/21 03:51 11/04/21 21:09 Ondansetron 4 Mg/2 Ml Vial IV-PUSH 11/04/22 03:50 4 mg Q8H PRN Administration Nausea And Vomiting Oxycodone HCl 5 mg 11/04/21 12:15 11/04/21 20:05 Oxycodone Ir 5 Mg Tablet PO 5 mg Q4HR PRN Administration pain Rivaroxaban 10 mg 11/05/21 09:00 11/05/21 09:38 Rivaroxaban 10 Mg Tablet PO 11/05/22 08:59 Not Given DAILY PAULINO Sodium Chloride 0 ml 11/03/21 21:00 11/05/21 06:57 Sodium Chloride 0.9 % 10 Ml Syringe IV-PUSH 11/03/22 20:59 10 ml PRN PRN Administration Flush Vancomycin HCl 1 each 11/04/21 03:51 Vancomycin - Pharmacy Dosing 1 Each Miscell IV PRN PRN ZZ.Pharmacy Consult Protocol Documented By: Dean Rodriguez MD 11/05/211421 Signed By: <Electronically signed by Dean Rodriguez MD> 11/05/21 [facility] Work Phone: Progress note Author Zaid Mon [facility] November 05, 2021 3:04pm Note Date/Time November 05, 2021 3: 04pm [facility] [address] [place] [address] Vascular Surgery Progress Note Signed Patient: Ema Neff MR#: [id number] : 1965 Acct:[id number] Age/Sex: 56 / F Adm Date: 2 Loc: Room: [address] [place] [address] Type: ADM IN Attending Dr: Dean Rodriguez MD Copies to: ~ Date of Service: 11/05/2021 Subjective Subjective Interval history: Our intention was to washout the wound and place a wound VAC today. Unfortunately we had a couple emergencies to deal with and we are not able to complete this. We will try again tomorrow afternoon. Exam Physical Exam Vital Signs: Temp Pulse Resp BP Pulse Ox O2 Del Method 97.4 F L 62 18 105/78 97 Room Air 11/05/21 12:00 11/05/21 12:00 11/05/21 12:00 11/05/21 12:41 11/05/21 12:00 11/05/21 12:00 Objective Labs CBC & Chem 7: 11/04/21 04:34 11/04/21 04:34 Other Labs: Laboratory Results - last 24 hr 11/04/21 11/04/21 11/05/21 15:55 20:49 06:42 POC Glucose 171 150 138 POC Glucose Comment Glu2: cleaned meter Triglycerides Cholesterol LDL Cholesterol, Calc VLDL Cholesterol HDL Cholesterol Cholesterol/HDL Ratio 11/05/21 11/05/21 07:15 11:47 POC Glucose 102 POC Glucose Comment Glu2: cleaned meter Triglycerides 183 H Cholesterol 152 LDL Cholesterol, Calc 79 VLDL Cholesterol 36 HDL Cholesterol 36 Cholesterol/HDL Ratio 4.2 Microbiology Microbiology: Microbiology - Results from entire visit 11/04/21 04:29 Blood - Right Antecubital Blood Culture - Preliminary No Growth 1 Day 11/04/21 04:34 Blood - Right Hand Blood Culture - Preliminary No Growth 1 Day 11/04/21 01:28 Nasal SARS Antigen (LFIA) - Final A&P - Vascular Assessment/Plan (1) Diabetes mellitus: Qualifiers: Diabetes mellitus type: type 2 Code(s): E11.9 - Type 2 diabetes mellitus without complications Status: Chronic (2) Morbid obesity due to excess calories: Code(s): E66.01 - Morbid (severe) obesity due to excess calories Status: Chronic (3) HTN (hypertension), benign: Code(s): E78.5 - Hyperlipidemia, unspecified Status: Chronic (4) Infection: Code(s): B99.9 - Unspecified infectious disease Status: Acute (5) Wound infection: This patient has incisional wound infection. She remains afebrile while in the hospital. Cultures have been obtained and she has been started on IV Vanco and Zosyn and managed by the hospitalist. This patient will likely require I&D of this wound. We will tentatively plan for this for tomorrow. This is Dr. Mon dictating. I did see this patient on rounds on 11/04/2021. The wound was fully evaluated. The patient has excellent cap refilland excellent Doppler signals in the left foot. I agree there is some dehiscence of the wound. There is also some cellulitis and erythema around the wound. I recommend trip to the operating room for irrigation and washout debridement cultures and placement of a wound VAC. This is explained to the patient in detail she understands and wishes to proceed we will plan for this tomorrow she will be n.p.o. at midnight. I am pleased with the bypass I believeto be intact and she has excellent blood supply to her left foot. Code(s): T14.8XXA - Other injury of unspecified body region, initial encounter; L08.9 - Local infection of the skin and subcutaneous tissue, unspecified Status: Acute Documented By: Zaid Mon MD 11/05/21 1503 Signed By: <Electronically signed by Zaid Mon MD> 11/05/21 1504 [facility] Work Phone: Progress note Author Dean Rodriguez [facility] November 07, 2021 10:07am Note Date/Time November 07, 2021 10 :07am [facility] [address] [place] [address] Hospitalist Progress Note Signed Patient: Ema Neff MR#: [id number] : 1965 Acct:[id number] Age/Sex: 56 / F Adm Date: 2 Loc: Room: [address] [place] [address] Type: ADM IN Attending Dr: Dean Rodriguez MD Copies to: ~ Date of Service: 11/06/2021 Subjective Subjective Narrative: Patient is resting in bed. Her pain is controlled. No other new issues. She is awaiting surgical I&D. Heart is regular Lungs clear Neurological nonfocal Assessment and plan problem 1. Postoperative infection. Patient had undergone on October 13,Left tibial to peroneal artery bypass, from greater saphenous vein. Cultures so far no growth. Surgical debridement and wound VAC placement planned for today. Continue broad-spectrum antibiotic therapy with Zosyn and vancomycin day 4. Continue dual antiplatelets Maximize statin therapy Pain control Other chronic medical comorbidities include PVD Dyslipidemia Diabetes mellitus type2 Hypothyroidism Hypertension Gout Obesity class III BMI 42 Anxiety depression GERD Sleep apnea Cerebrovascular disease and history of right-sided weakness Exam Physical Exam Vital Signs: Temp Pulse Resp BP Pulse Ox O2 Del Method O2 Flow Rate 97.5 F L 88 18 112/80 91 L Room Air 6 11/07/21 07:55 11/07/21 07:55 11/07/21 07:55 11/07/21 07:55 11/07/21 07:55 11/07/21 08:01 11/06/21 16:00 Objective Lab Results CBC & Chem 7: 11/04/21 04:34 11/07/21 07:05 Microbiology Results Microbiology 11/04/21 04:29 Blood - Right Antecubital Blood Culture - Preliminary No Growth 3 Days 11/04/21 04:34 Blood - Right Hand Blood Culture - Preliminary No Growth 3 Days Meds Allergies and Active Meds Allergies hydrocodone [From Vicodin] Allergy (Verified 11/03/21 21:01) Hallucinating Steroid Injection Allergy (Uncoded 11/03/21 21:01) Swelling Active Meds: Active Medications Generic Name Dose Route Start Last Admin Trade Name Jamesq PRN Reason Stop Dose Admin Acetaminophen 1,000 mg 11/04/21 14:00 11/07/21 08:02 Acetaminophen 500 Mg Tablet PO 11/04/22 13:59 Not Given QID PAULINO Amitriptyline HCl 50 mg 11/04/21 22:00 11/06/21 22:20 Amitriptyline 50 Mg Tablet PO 11/04/22 21:59 50 mg HS PAULINO Administration Aspirin 81 mg 11/04/21 09:00 11/07/21 08:02 Aspirin 81 Mg Tablet. PO 11/04/22 08:59 81 mg DAILY PAULINO Administration Atorvastatin Calcium 40 mg 11/04/21 22:00 11/06/21 22:20 Atorvastatin 40 Mg Tablet PO 11/04/22 21:59 40 mg QHS PAULINO Administration Clopidogrel Bisulfate 75 mg 11/04/21 09:00 11/07/21 08:01 Clopidogrel Bisulfate 75 Mg Tablet PO 11/04/22 08:59 75 mg DAILY PAULINO Administration Collagenase 1 applic 11/04/21 09:45 11/07/21 08:03 Collagenase 250 Unit/Gm Oint 30 Gm Tube TOPICAL 11/14/21 09:44 Not Given DAILY PAULINO Sodium Chloride 3,000 ml/ 0 ml 11/07/21 10:05 Vancomycin HCl 2 gm IRRIGATION 11/07/21 10:06 ONCE ONE Dextrose 0 gm 11/04/21 03:59 Dextrose 50% In Water 25 Gm/50 Ml Syringe IV-PUSH 11/04/22 03:58 PRN PRN Hypoglycemia Duloxetine HCl 30 mg 11/04/21 09:00 11/07/21 08:01 Duloxetine 30 Mg Capsule. PO 11/04/22 08:59 30 mg DAILY PAULINO Administration Fluticasone Propionate 1 spray 11/04/21 03:55 Fluticasone Propionate Greenbush 120 [place]/16 Gm Bottle INTRANASAL 11/04/22 03:54 QHS PRN Nasal Congestion Gabapentin 800 mg 11/04/21 09:00 11/07/21 08:01 Gabapentin 800 Mg Tablet PO 11/04/22 08:59 800 mg QID PAULINO Administration Glucose 0 gm 11/04/21 03:59 Dextrose 40% Gel 15 Gm Tube PO 11/04/22 03:58 PRN PRN Hypoglycemia Hydromorphone HCl 1 mg 11/04/21 12:15 11/07/21 10:05 Hydromorphone 1 Mg/Ml Syringe IV-PUSH 1 mg Q2H PRN Administration pain Piperacillin Sod/Tazobactam Sod 4.5 gm in 100 mls @ 200 mls/hr 11/04/21 08:00 11/07/21 08:02 Zosyn IV 200 mls/hr Q6H PAULINO Administration Vancomycin HCl 0.75 gm in 250 mls @ 250 mls/hr 11/06/21 13:30 11/07/21 01:13 Vancomycin IV 250 mls/hr Q12H PAULINO Administration Lactated Ringer's 1,000 mls @ 20 mls/hr 11/06/21 11:44 11/06/21 13:35 Lactated Ringers IV 11/07/21 11:43 20 mls/hr .Q24H ONE Administration Insulin Aspart 0 units 11/04/21 08:00 11/07/21 08:02 Insulin Aspart 300 Units/3 Ml Insuln.Pen SUBCUT 11/04/22 07:59 3 units TID.WM.HS PAULINO Administration Protocol Insulin Detemir 10 units 11/04/21 09:00 11/07/21 08:03 Insulin Detemir 300 Units/3 Ml Insuln.Pen SUBCUT 11/04/22 08:59 10 units DAILY PAULINO Administration Levothyroxine Sodium 125 mcg 11/04/21 06:30 11/07/21 05:39 Levothyroxine 125 Mcg Tablet PO 11/04/22 06:29 125 mcg DAILY@0630 PAULINO Administration Metoprolol Succinate 50 mg 11/04/21 09:00 11/07/21 08:02 Metoprolol Succinate 50 Mg Tab.Er.24h PO 11/04/22 08:59 50 mg DAILY PAULINO Administration Ondansetron HCl 4 mg 11/04/21 03:51 11/04/21 21:09 Ondansetron 4 Mg/2 Ml Vial IV-PUSH 11/04/22 03:50 4 mg Q8H PRN Administration Nausea And Vomiting Oxycodone HCl 5 mg 11/04/21 12:15 11/06/21 16:45 Oxycodone Ir 5 Mg Tablet PO 5 mg Q4HR PRN Administration pain Oxycodone HCl 10 mg 11/06/21 16:40 11/07/21 08:01 Oxycodone Ir 5 Mg Tablet PO 10 mg Q6HR PRN Administration Pain Scale 6 - 10 Rivaroxaban 10 mg 11/05/21 09:00 11/07/21 08:02 Rivaroxaban 10 Mg Tablet PO 11/05/22 08:59 10 mg DAILY PAULINO Administration Sodium Chloride 0 ml 11/03/21 21:00 11/07/21 10:05 Sodium Chloride 0.9 % 10 Ml Syringe IV-PUSH 11/03/22 20:59 10 ml PRN PRN Administration Flush Vancomycin HCl 1 each 11/04/21 03:51 Vancomycin - Pharmacy Dosing 1 Each Miscell IV PRN PRN ZZ.Pharmacy Consult Protocol Documented By: Dean Rodriguez MD 11/06/21 1006 Signed By: <Electronically signed by Dean Rodriguez MD> 11/07/[address] [place] [address] Work Phone: Progress note Author Dean Rodriguez [facility] November 07, 2021 10:10am Note Date/Time November 07, 2021 10 :10am [facility] [address] [place] [address] Hospitalist Progress Note Signed Patient: Ema Neff MR#: [id number] : 1965 Acct:[id number] Age/Sex: 56 / F Adm Date: 2 Loc: 3T Room: [address] [place] [address] Type: ADM IN Attending Dr: Dean Rodriguez MD Copies to: ~ Date of Service: 11/07/2021 Subjective Subjective Narrative: Patient is in bed. She is complaining of pain in the left lower extremity. Wound VAC is in place. The extremity is neurovascular intact otherwise. Heart is regular Lungs clear Neurological nonfocal Assessment and plan problem 1. Postoperative infection. Patient had undergone on October 13,Left tibial to peroneal artery bypass, from greater saphenous vein. Surgical debridement and wound VAC were placed yesterday, cultures obtained, so far no growth. Previous superficial cultures with diphtheroids Continue broad-spectrum antibiotic therapy with Zosyn and vancomycin day 5. Continue dual antiplatelets Maximized statin therapy Pain control Constipation prophylaxis DVT prophylaxis Other chronic medical comorbidities include PVD Dyslipidemia Diabetes mellitus type2 Hypothyroidism Hypertension Gout Obesity class III BMI 42 Anxiety depression GERD Sleep apnea Cerebrovascular disease and history of right-sided weakness Exam Physical Exam Vital Signs: Temp Pulse Resp BP Pulse Ox O2 Del Method O2 Flow Rate 97.5 F L 88 18 112/80 91 L Room Air 6 11/07/21 07:55 11/07/21 07:55 11/07/21 07:55 11/07/21 07:55 11/07/21 07:55 11/07/21 08:01 11/06/21 16:00 Objective Lab Results CBC & Chem 7: 11/04/21 04:34 11/07/21 07:05 Microbiology Results Microbiology 11/04/21 04:29 Blood - Right Antecubital Blood Culture - Preliminary No Growth 3 Days 11/04/21 04:34 Blood - Right Hand Blood Culture - Preliminary No Growth 3 Days Meds Allergies and Active Meds Allergies hydrocodone [From Vicodin] Allergy (Verified 11/03/21 21:01) Hallucinating Steroid Injection Allergy (Uncoded 11/03/21 21:01) Swelling Active Meds: Active Medications Generic Name Dose Route Start Last Admin Trade Name Freq PRN Reason Stop Dose Admin Acetaminophen 1,000 mg 11/04/21 14:00 11/07/21 08:02 Acetaminophen 500 Mg Tablet PO 11/04/22 13:59 Not Given QID PAULINO Amitriptyline HCl 50 mg 11/04/21 22:00 11/06/21 22:20 Amitriptyline 50 Mg Tablet PO 11/04/22 21:59 50 mg HS PAULINO Administration Aspirin 81 mg 11/04/21 09:00 11/07/21 08:02 Aspirin 81 Mg Tablet. PO 11/04/22 08:59 81 mg DAILY PAULINO Administration Atorvastatin Calcium 40 mg 11/04/21 22:00 11/06/21 22:20 Atorvastatin 40 Mg Tablet PO 11/04/22 21:59 40 mg QHS PAULINO Administration Clopidogrel Bisulfate 75 mg 11/04/21 09:00 11/07/21 08:01 Clopidogrel Bisulfate 75 Mg Tablet PO 11/04/22 08:59 75 mg DAILY PAULINO Administration Collagenase 1 applic 11/04/21 09:45 11/07/21 08:03 Collagenase 250 Unit/Gm Oint 30 Gm Tube TOPICAL 11/14/21 09:44 Not Given DAILY PAULINO Sodium Chloride 3,000 ml/ 0 ml 11/07/21 10:05 Vancomycin HCl 2 gm IRRIGATION 11/07/21 10:06 ONCE ONE Dextrose 0 gm 11/04/21 03:59 Dextrose 50% In Water 25 Gm/50 Ml Syringe IV-PUSH 11/04/22 03:58 PRN PRN Hypoglycemia Duloxetine HCl 30 mg 11/04/21 09:00 11/07/21 08:01 Duloxetine 30 Mg Capsule. PO 11/04/22 08:59 30 mg DAILY PAULINO Administration Fluticasone Propionate 1 spray 11/04/21 03:55 Fluticasone Propionate Greenbush 120 Greenbush/16 Gm Bottle INTRANASAL 11/04/22 03:54 QHS PRN Nasal Congestion Gabapentin 800 mg 11/04/21 09:00 11/07/21 08:01 Gabapentin 800 Mg Tablet PO 11/04/22 08:59 800 mg QID PAULINO Administration Glucose 0 gm 11/04/21 03:59 Dextrose 40% Gel 15 Gm Tube PO 11/04/22 03:58 PRN PRN Hypoglycemia Hydromorphone HCl 1 mg 11/04/21 12:15 11/07/21 10:05 Hydromorphone 1 Mg/Ml Syringe IV-PUSH 1 mg Q2H PRN Administration pain Piperacillin Sod/Tazobactam Sod 4.5 gm in 100 mls @ 200 mls/hr 11/04/21 08:00 11/07/21 08:02 Zosyn IV 200 mls/hr Q6H PAULINO Administration Vancomycin HCl 0.75 gm in 250 mls @ 250 mls/hr 11/06/21 13:30 11/07/21 01:13 Vancomycin IV 250 mls/hr Q12H PAULINO Administration Lactated Ringer's 1,000 mls @ 20 mls/hr 11/06/21 11:44 11/06/21 13:35 Lactated Ringers IV 11/07/21 11:43 20 mls/hr .Q24H ONE Administration Insulin Aspart 0 units 11/04/21 08:00 11/07/21 08:02 Insulin Aspart 300 Units/3 Ml Insuln.Pen SUBCUT 11/04/22 07:59 3 units TID.WM.HS PAULINO Administration Protocol Insulin Detemir 10 units 11/04/21 09:00 11/07/21 08:03 Insulin Detemir 300 Units/3 Ml Insuln.Pen SUBCUT 11/04/22 08:59 10 units DAILY PAULINO Administration Levothyroxine Sodium 125 mcg 11/04/21 06:30 11/07/21 05:39 Levothyroxine 125 Mcg Tablet PO 11/04/22 06:29 125 mcg DAILY@0630 PAULINO Administration Metoprolol Succinate 50 mg 11/04/21 09:00 11/07/21 08:02 Metoprolol Succinate 50 Mg Tab.Er.24h PO 11/04/22 08:59 50 mg DAILY PAULINO Administration Ondansetron HCl 4 mg 11/04/21 03:51 11/04/21 21:09 Ondansetron 4 Mg/2 Ml Vial IV-PUSH 11/04/22 03:50 4 mg Q8H PRN Administration Nausea And Vomiting Oxycodone HCl 5 mg 11/04/21 12:15 11/06/21 16:45 Oxycodone Ir 5 Mg Tablet PO 5 mg Q4HR PRN Administration pain Oxycodone HCl 10 mg 11/06/21 16:40 11/07/21 08:01 Oxycodone Ir 5 Mg Tablet PO 10 mg Q6HR PRN Administration Pain Scale 6 - 10 Rivaroxaban 10 mg 11/05/21 09:00 11/07/21 08:02 Rivaroxaban 10 Mg Tablet PO 11/05/22 08:59 10 mg DAILY PAULINO Administration Sodium Chloride 0 ml 11/03/21 21:00 11/07/21 10:05 Sodium Chloride 0.9 % 10 Ml Syringe IV-PUSH 11/03/22 20:59 10 ml PRN PRN Administration Flush Vancomycin HCl 1 each 11/04/21 03:51 Vancomycin - Pharmacy Dosing 1 Each Miscell IV PRN PRN ZZ.Pharmacy Consult Protocol Documented By: Dean Rodriguez MD 11/07/21 1007 Signed By: <Electronically signed by Dean Rodriguez MD> 11/07/21 1010 [facility] Work Phone: Progress note Author Dean Rodriguez [facility] November 08, 2021 2:52pm Note Date/Time November 08, 2021 2: 52pm [facility] [address] [place] [address] Hospitalist Progress Note Signed Patient: Ema Neff MR#: [id number] : 1965 Acct:[id number] Age/Sex: 56 / F Adm Date: 2 Loc: Room: [address] [place] [address] Type: ADM IN Attending Dr: Dean Rodriguez MD Copies to: ~ Date of Service: 11/08/2021 Subjective Subjective Narrative: Pain in the leg and in the foot is severe, not well controlled, requiring administration of [id number] Dilaudid. Wound VAC is in place. Heart is regular Lungs clear Neurological nonfocal Assessment and plan problem 1. Postoperative infection. Patient had undergone on October 13,Left tibial to peroneal artery bypass, from greater saphenous vein. Surgical debridement and wound VAC were placed on the , cultures obtained, so far no growth. Previous superficial cultures with diphtheroids De-escalate antibiotic therapy to vancomycin. Patient does have some diarrhea. Added fentanyl patch 25 mcg in order to decrease hopefully the amount of Dilaudid that she is using. Encouraged her to use oral oxycodone in order to transition her to an acceptable home regimen Continue dual antiplatelets Continue maximal statin therapy Constipation prophylaxis DVT prophylaxis Discharge home when pain controlled without IV drugs. Hopefully tomorrow. Other chronic medical comorbidities include PVD Dyslipidemia Diabetes mellitus type2 Hypothyroidism Hypertension Gout Obesity class III BMI 42 Anxiety depression GERD Sleep apnea Cerebrovascular disease and history of right-sided weakness Exam Physical Exam Vital Signs: Temp Pulse Resp BP Pulse Ox O2 Del Method O2 Flow Rate 97.6 F 73 16 118/88 96 Room Air 6 11/08/21 03:30 11/08/21 11:44 11/08/21 11:44 11/08/21 11:44 11/08/21 11:44 11/08/21 11:44 11/06/21 16:00 Objective Lab Results CBC & Chem 7: 11/08/21 04:36 11/08/21 04:36 Microbiology Results Microbiology 11/06/21 16:10 Leg,Left - Drainage Aerobic Culture - Final Rare normal skin neo 2 Days 11/06/21 16:10 Leg,Left - Drainage Anaerobic Culture - Preliminary No Anaerobes Isolated 2 Days 11/06/21 16:10 Leg,Left - Drainage Gram Stain - Final 11/04/21 04:29 Blood - Right Antecubital Blood Culture - Preliminary No Growth 4 Days 11/04/21 04:34 Blood - Right Hand Blood Culture - Preliminary No Growth 4 Days Meds Allergies and Active Meds Allergies hydrocodone [From Vicodin] Allergy (Verified 11/03/21 21:01) Hallucinating Steroid Injection Allergy (Uncoded 11/03/21 21:01) Swelling Active Meds: Active Medications Generic Name Dose Route Start Last Admin Trade Name Freq PRN Reason Stop Dose Admin Acetaminophen 1,000 mg 11/04/21 14:00 11/08/21 13:42 Acetaminophen 500 Mg Tablet PO 11/04/22 13:59 Not Given QID PAULINO Amitriptyline HCl 50 mg 11/04/21 22:00 11/07/21 21:20 Amitriptyline 50 Mg Tablet PO 11/04/22 21:59 50 mg HS PAULINO Administration Aspirin 81 mg 11/04/21 09:00 11/08/21 09:13 Aspirin 81 Mg Tablet. PO 11/04/22 08:59 81 mg DAILY PAULINO Administration Atorvastatin Calcium 40 mg 11/04/21 22:00 11/07/21 21:20 Atorvastatin 40 Mg Tablet PO 11/04/22 21:59 40 mg QHS PAULINO Administration Clopidogrel Bisulfate 75 mg 11/04/21 09:00 11/08/21 09:13 Clopidogrel Bisulfate 75 Mg Tablet PO 11/04/22 08:59 75 mg DAILY PAULINO Administration Collagenase 1 applic 11/04/21 09:45 11/08/21 09:20 Collagenase 250 Unit/Gm Oint 30 Gm Tube TOPICAL 11/14/21 09:44 1 applic DAILY PAULINO Administration Dextrose 0 gm 11/04/21 03:59 Dextrose 50% In Water 25 Gm/50 Ml Syringe IV-PUSH 11/04/22 03:58 PRN PRN Hypoglycemia Duloxetine HCl 30 mg 11/04/21 09:00 11/08/21 09:13 Duloxetine 30 Mg Capsule. PO 11/04/22 08:59 30 mg DAILY PAULINO Administration Fentanyl 25 mcg 11/08/21 14:00 Fentanyl Patch 25 Mcg/Hour Patch.Td72 TRANSDERML Q72HR [facility] Protocol Fluticasone Propionate 1 spray 11/04/21 03:55 Fluticasone Propionate Greenbush 120 Greenbush/16 Gm Bottle INTRANASAL 11/04/22 03:54 QHS PRN Nasal Congestion Gabapentin 800 mg 11/04/21 09:00 11/08/21 13:42 Gabapentin 800 Mg Tablet PO 11/04/22 08:59 800 mg QID PAULINO Administration Glucose 0 gm 11/04/21 03:59 Dextrose 40% Gel 15 Gm Tube PO 11/04/22 03:58 PRN PRN Hypoglycemia Hydromorphone HCl 1 mg 11/04/21 12:15 11/08/21 11:47 Hydromorphone 1 Mg/Ml Syringe IV-PUSH 1 mg Q2H PRN Administration pain Vancomycin HCl 0.75 gm in 250 mls @ 250 mls/hr 11/06/21 13:30 11/08/21 01:36 Vancomycin IV 250 mls/hr Q12H PAULINO Administration Insulin Aspart 0 units 11/04/21 08:00 11/08/21 11:47 Insulin Aspart 300 Units/3 Ml Insuln.Pen SUBCUT 11/04/22 07:59 3 units TID.WM.HS PAULINO Administration Protocol Insulin Detemir 10 units 11/04/21 09:00 11/08/21 09:13 Insulin Detemir 300 Units/3 Ml Insuln.Pen SUBCUT 11/04/22 08:59 10 units DAILY PAULINO Administration Levothyroxine Sodium 125 mcg 11/04/21 06:30 11/08/21 07:19 Levothyroxine 125 Mcg Tablet PO 11/04/22 06:29 Not Given DAILY@0630 PAULINO Metoprolol Succinate 50 mg 11/04/21 09:00 11/08/21 09:18 Metoprolol Succinate 50 Mg Tab.Er.24h PO 11/04/22 08:59 50 mg DAILY PAULINO Administration Ondansetron HCl 4 mg 11/04/21 03:51 11/04/21 21:09 Ondansetron 4 Mg/2 Ml Vial IV-PUSH 11/04/22 03:50 4 mg Q8H PRN Administration Nausea And Vomiting Oxycodone HCl 5 mg 11/04/21 12:15 11/06/21 16:45 Oxycodone Ir 5 Mg Tablet PO 5 mg Q4HR PRN Administration pain Oxycodone HCl 10 mg 11/08/21 13:33 Oxycodone Ir 5 Mg Tablet PO Q4HR PRN Pain Scale 6 - 10 Rivaroxaban 10 mg 11/05/21 09:00 11/08/21 09:13 Rivaroxaban 10 Mg Tablet PO 11/05/22 08:59 10 mg DAILY PAULINO Administration Senna/Docusate Sodium 2 tab 11/07/21 10:15 11/08/21 09:14 Sennosides/Docusate 8.6-50mg 1 Tab Tablet PO 11/07/22 10:14 Not Given BID PAULINO Sodium Chloride 0 ml 11/03/21 21:00 11/08/21 11:47 Sodium Chloride 0.9 % 10 Ml Syringe IV-PUSH 11/03/22 20:59 10 ml PRN PRN Administration Flush Vancomycin HCl 1 each 11/04/21 03:51 Vancomycin - Pharmacy Dosing 1 Each Miscell IV PRN PRN ZZ.Pharmacy Consult Protocol Documented By: Dean Rodriguez MD 11/08/211449 Signed By: <Electronically signed by Dean Rodriguez MD> 11/08/211451 [facility] Work Phone: Progress note Author CWSacha Mehta [facility] March 27, 2022 4:34pm Note Date/Time March 27, 2022 4 :35pm [facility] [address] [place] [address] Progress Note Signed Patient: Ema Neff MR#: [id number] : 1965 Acct:[id number] Age/Sex: 57 / F Adm Date: 3 Loc: [place] Room: Type: [facility] Attending Dr: Kanu Mehta DPGeremias, Copies to: ~ Date of Service: 03/27/2022 Progress Narrative Note PROGRESS NOTE Progress Note: Surgeon of record: Kanu Mehta D.P.M., MS, FACFAS. Assistants: None. Preop diagnosis #1 postoperative surgical wound status post bilateral second toeamputation at the metatarsophalangeal joint level. 2. Diabetic ulceration medial left midfoot and distal left medial hallux. 3. Peripheral arterial disease bilateral lower extremity. 4. Diabetes mellitus with neuropathy bilateral lower extremity. 5. Pedal pain bilateral foot/ulcer/surgical wounds. Postoperative diagnosis: 1. Same. 2. Same. 3. Same. 4. Same. 5. Same. Procedure: 1. Subcutaneous tissue/surgical wound excisional debridement bilateral foot at the second metatarsophalangeal joint level site of second toe amputation: Less than 20 cm?. 2. Full-thickness tissue excisional diabetic ulceration of left foot medial diabetic ulceration and left distal hallux medial aspect diabetic ulceration: Less than 20 cm?. 3. Antibiotic power lavage of 2 g of vancomycin via 3 L of saline to the surgical wound and amputation site/diabetic ulcers bilateral foot. Anesthesia: LMAC. Hemostasis: None. Estimated blood loss: Less than 0.5 cc bilateral foot. Materials: None. Injectables: None. Findings: Area of nonviable gangrene to the amputation site of second toe bilaterally at the metatarsophalangeal joint and ulceration medial left foot andleft hallux medial distal aspect: Are nonviable however slightly improved from last examination without any signs of infection clinically. Complications: None. After satisfactory preoperative evaluation, patient brought to the OR placed theOR table in supine position. Patient was evaluated I cleansed the area around the surgical sites of second toe amputation at the metatarsophalangeal joint level bilateral foot as well as medial left midfoot diabetic ulceration in the distal medial left hallux ulceration with sterile alcohol solution followed by atotal of 15 cc of 0.5% Marcaine plain please note throughout the procedure no epinephrine or tourniquet was used. Patient was now prepped and draped with sterile Betadine solution scrub and paint and was draped in usual standard fashion. Right foot second toe amputation site at the metatarsophalangeal joint surgical wound measures 1.8 cm x 1.5 cm time 0.2 cm all nonviable tissue of skin, slough, gangrene and subcutaneous tissue was sharply widely excisionally excised via hand-held curette and tissue nipper and now measurements were increased in size to 2.0 cm x 1.7 cm time 0.2 cm in depth. Left medial midfoot diabetic ulceration measured 1.0 cm time 0.4 cm time 0.2 cm. I performed sharp, wide, excisional ulceration debridement of all nonviable tissue of skin and slough full-thickness level via hand-held curette and tissue nipper this increased the size postdebridement to 1.2 cm time 0.5 cm time 0.2 cm. Left distal hallux medial diabetic ulceration was a dry scab did appear loose therefore need that we had to be evaluated I used a hand-held curette to performsharp, wide, excisional gangrenous full-thickness tissue and measurements were postdebridement increased to 0.4 cm time 0.3 cm time 0.2 cm. Left second toe amputation site at the metatarsophalangeal joint measures 1.8 cmx 2.1 cm time 0.2 cm. I performed sharp, wide, excisional surgical wound debridement of all nonviable tissue of skin, slough, gangrene via tissue nipper and hand-held curette and measurements were increased in size to 1.9 cm x 2.2 cmtime 0.3 cm. Please note all debridement for taken the level of clean healthy base is much aspossible and thankfully there is no exposure to deep subcutaneous tissues including bone, joint, tendon, or capsule. No sign of any deep infection or purulence or gangrene or malodor or necrosis was noted postdebridement at any ofthe sites. And I performed power antibiotic lavage to all the operative sites of ulcer debridement and surgical wound debridements of 2 g of vancomycin via 3 L of saline via Pulsavac antibiotic prior lavage irrigation system. Patient's foot was now cleansed with sterile saline solution and pat dry completely. All operative sites were covered with sterile Adaptic dressing, 4 x4 gauze pads, ABD pad secured with a Kerlix roll in a mildly compressive fashionfollowed by 4 inch Keegan wrap and a mildly compressive fashion. Patient tolerated the procedure and anesthesia well. There were no complications. The procedure went as planned and postoperative dressings will begin tomorrow as discussed preoperatively multiple times and will be the same dressing changes and medicine topically the patient has been using. Reappoint: 1 week in office. Patient should already have first postop visit scheduled for date and time. Documented By: Kanu Mehta,TERESA, MS, CWSacha 03/15 06/04 1522 Signed By: <Electronically signed by TERESA Mehta> 03/27/22 5137 [facility] Work Phone: Progress note Author Casa Givens [facility] January 29, 2023 3:08pm Note Date/Time January 29, 2023 3:08pm [facility] [address] [place] [address] Hospitalist Progress Note Signed Patient: Ema Neff MR#: [id number] : 1965 Acct:[id number] Age/Sex: 58 / F Adm Date: 3 Loc: Room: [address] [place] [address] Type: ADM IN Attending Dr: Casa Givens DO Copies to: ~ Date of Service: 01/29/2023 Subjective Subjective Narrative: Pt to the OR today for surgical intervention on L 3rd toe Exam Physical Exam Vital Signs: Temp Pulse Resp BP Pulse Ox O2 Del Method O2 Flow Rate 97.8 F 78 13 108/67 98 Nasal Cannula 2 01/29/23 13:25 01/29/23 14:25 01/29/23 14:25 01/29/23 14:25 01/29/23 14:25 01/29/23 13:40 01/29/23 13:55 Narrative: General: Lying in bed comfortably HEENT: Normocephalic, atraumatic, trachea midline Respiratory: non labored Cardiovascular: RRR, normal S1 and S2 Abdominal: soft, non-distended Skin: warm, dry, L 2nd toe amputation. L 3rd toe with black eschar over dorsal aspect with purulence and surrounding erythema. Bilateral LE discoloration due to chronic venous stasis skin changes and PVD MSK: no edema Objective Lab Results 01/29/23 05:11 01/29/23 05:11 Meds Allergies and Active Meds Allergies hydrocodone [From Vicodin] Allergy (Verified 01/28/23 14:35) Hallucinating Steroid Injection Allergy (Uncoded 01/28/23 14:35) Swelling Active Meds: Active Medications Generic Name Dose Route Start Last Admin Trade Name Freq PRN Reason Stop Dose Admin Acetaminophen 650 mg 01/28/23 18:40 Acetaminophen 325 Mg Tablet PO 01/28/24 18:39 Q6HR PRN Pain Scale 1 - 3 or fever Aspirin 81 mg 01/29/23 09:00 01/29/23 09:04 Aspirin 81 Mg Tablet. PO 01/29/24 08:59 81 mg QAM PAULINO Administration Atorvastatin Calcium 40 mg 01/29/23 09:00 01/29/23 09:04 Atorvastatin 40 Mg Tablet PO 01/29/24 08:59 40 mg QAM PAULINO Administration Clopidogrel Bisulfate 75 mg 01/29/23 09:00 01/29/23 09:04 Clopidogrel Bisulfate 75 Mg Tablet PO 01/29/24 08:59 75 mg QAM PAULINO Administration Collagenase 1 applic 01/29/23 11:00 01/29/23 13:45 Collagenase 250 Unit/Gm Oint 30 Gm Tube TOPICAL 01/29/24 10:59 Not Given DAILY PAULINO Dextrose 0 gm 01/28/23 18:40 01/29/23 05:35 Dextrose 50% In Water 25 Gm/50 Ml Syringe IV-PUSH 01/28/24 18:39 25 gm PRN PRN Administration Hypoglycemia Docusate Sodium 100 mg 01/28/23 21:00 01/29/23 09:04 Docusate 100 Mg Capsule PO 01/28/24 20:59 100 mg BID PAULINO Administration Gabapentin 800 mg 01/28/23 22:00 01/29/23 14:04 Gabapentin 800 Mg Tablet PO 01/28/24 21:59 800 mg QID PAULINO Administration Glucose 0 gm 01/28/23 18:40 Dextrose 40% Gel 15 Gm Tube PO 01/28/24 18:39 PRN PRN Hypoglycemia Hydralazine HCl 10 mg 01/28/23 18:40 Hydralazine 20 Mg/Ml Vial IV-PUSH 01/28/24 18:39 Q4H PRN Hypertension Hydromorphone HCl 0.5 mg 01/28/23 19:05 01/29/23 14:03 Hydromorphone 1 Mg/Ml Syringe IV-PUSH 0.5 mg Q4H PRN Administration Pain Scale 8 - 10 Lactated Ringer's 1,000 mls @ 75 mls/hr 01/28/23 18:45 01/29/23 13:44 Lactated Ringers IV 01/28/24 18:44 75 mls/hr .[id number] PAULINO Administration Vancomycin HCl 1.25 gm/ 275 mls @ 183.333 mls/hr 01/29/23 06:30 01/29/23 05:53 Dextrose IV 01/29/24 06:29 183.33 mls/hr Q12H PAULINO Administration Piperacillin Sod/Tazobactam Sod 3.375 gm in 100 mls @ 200 mls/hr 01/28/23 20:30 01/29/23 14:09 Zosyn IV 200 mls/hr Q6H PAULINO Administration Insulin Aspart 0 units 01/28/23 22:00 01/29/23 13:45 Insulin Aspart 300 Units/3 Ml Insuln.Pen SUBCUT 01/28/24 21:59 Not Given TID.WM.HS [facility] Protocol Levothyroxine Sodium 150 mcg 01/29/23 06:30 01/29/23 05:36 Levothyroxine 150 Mcg Tablet PO 01/29/24 06:29 150 mcg DAILY@0630 PAULINO Administration Losartan Potassium 50 mg 01/29/23 09:00 01/29/23 09:04 Losartan 50 Mg Tablet PO 01/29/24 08:59 50 mg QAM PAULINO Administration Metoprolol Succinate 50 mg 01/29/23 09:00 01/29/23 09:04 Metoprolol Succinate 50 Mg Tab.Er.24h PO 01/29/24 08:59 50 mg QAM PAULINO Administration Ondansetron HCl 4 mg 01/28/23 18:40 Ondansetron 4 Mg/2 Ml Vial IV-PUSH 01/28/24 18:39 Q8H PRN Nausea And Vomiting Oxycodone/Acetaminophen 2 tab 01/28/23 18:46 01/29/23 07:37 Oxycodone/Acetaminophen 5-325 Mg Tablet PO 2 tab Q6H PRN Administration Pain Sodium Chloride 0 ml 01/28/23 14:35 Sodium Chloride 0.9 % 10 Ml Syringe IV-PUSH 01/28/24 14:34 PRN PRN Flush Vancomycin HCl 1 each 01/28/23 18:40 Vancomycin - Pharmacy Dosing 1 Each Miscell IV ONCE PRN ZZ.Pharmacy Consult Protocol A&P - Hospitalist Assessment/Plan (1) Dry gangrene: (2) Diabetic foot infection: (3) PVD (peripheral vascular disease): Plan # L 3rd toe dry gangrene with surrounding cellulitis - worsened due to diabetes and PVD - dropped phone on foot 1 week ago and toe progressed to gangrene with purulence - XR with cellulitis, but no OM noted - MRI ordered - blood and wound cultures obtained - started on empiric IV abx - will continue - podiatry, vascular surgery, and ID consulted - appreciate recs - to the OR 01/29 - wound care consulted - holding anticoagulation - pain control - PT/OT when able # HTN/HLD/PVD - cont home meds # Hypothyroid - cont home meds # DM2 - ISS while admitted. Resume home regimen at discharge DVT: holding for possible surgical intervention by podiatry Disposition: Pt with progressing L 3rd toe gangrene with surrounding cellulitis going to the OR today. ID, vascular surgery and podiatry consulted. Cont empiricabx. Follow cultures. Pt/OT when able. Will likely be here through the weekend Time Spent With Patient (min): 45 Documented By: Casa Givens DO 01/29/23 150 6 Signed By: <Electronically signed by Casa Givens DO> 01/29/23 1508 [facility] Work Phone: Progress note Author Casa Givens [facility] January 30, 2023 2:40pm Note Date/Time January 30, 2023 2:40pm [facility] [address] [place] [address] Hospitalist Progress Note Signed Patient: Ema Neff MR#: [id number] : 1965 Acct:[id number] Age/Sex: 58 / F Adm Date: 3 Loc: 4N Room: [address] [place] [address] Type: ADM IN Attending Dr: Casa Givens DO Copies to: ~ Date of Service: 01/30/2023 Subjective Subjective Narrative: Pt seen and examined. Had vascular angiogram and stent placement in LLE yesterday. Plan is for surgical intervention on the toe Wednesday. MRI today. Pain controlled. No complaints today Exam Physical Exam Vital Signs: Temp Pulse Resp BP Pulse Ox O2 Del Method O2 Flow Rate 98.4 F 85 18 95/67 L 95 Room Air 1 01/30/23 11:44 01/30/23 11:44 01/30/23 11:44 01/30/23 11:44 01/30/23 11:44 01/30/23 11:44 01/29/23 15:55 Narrative: General: Lying in bed comfortably HEENT: Normocephalic, atraumatic, trachea midline Respiratory: non labored Cardiovascular: RRR, normal S1 and S2 Abdominal: soft, non-distended Skin: warm, dry, L 2nd toe amputation. L 3rd toe with black eschar over dorsal aspect with purulence and surrounding erythema. Bilateral LE discoloration due to chronic venous stasis skin changes and PVD MSK: no edema Objective Lab Results 01/30/23 05:31 01/30/23 05:31 Microbiology Results Microbiology 01/29/23 15:55 Foot,Left - Ulcer Superficial Wound Culture - Preliminary 01/28/23 16:46 Blood - Right Antecubital Blood Culture - Preliminary No Growth 1 Day 01/28/23 16:30 Blood - Left Antecubital Blood Culture - Preliminary No Growth 1 Day Meds Allergies and Active Meds Allergies hydrocodone [From Vicodin] Allergy (Verified 01/28/23 14:35) Hallucinating Steroid Injection Allergy (Uncoded 01/28/23 14:35) Swelling Active Meds: Active Medications Generic Name Dose Route Start Last Admin Trade Name Freq PRN Reason Stop Dose Admin Acetaminophen 650 mg 01/28/23 18:40 Acetaminophen 325 Mg Tablet PO 01/28/24 18:39 Q6HR PRN Pain Scale 1 - 3 or fever Aspirin 81 mg 01/29/23 09:00 01/30/23 08:15 Aspirin 81 Mg Tablet. PO 01/29/24 08:59 81 mg QAM PAULINO Administration Atorvastatin Calcium 40 mg 01/29/23 09:00 01/30/23 08:16 Atorvastatin 40 Mg Tablet PO 01/29/24 08:59 40 mg QAM PAULINO Administration Clopidogrel Bisulfate 75 mg 01/29/23 09:00 01/30/23 08:16 Clopidogrel Bisulfate 75 Mg Tablet PO 01/29/24 08:59 75 mg QAM PAULINO Administration Collagenase 1 applic 01/29/23 11:00 01/30/23 10:38 Collagenase 250 Unit/Gm Oint 30 Gm Tube TOPICAL 01/29/24 10:59 Not Given DAILY PAULINO Sodium Chloride 500 ml/ 0 ml 02/01/23 17:00 Cefazolin Sodium 1 gm IRRIGATION 02/01/23 17:01 ONCE ONE Dextrose 0 gm 01/28/23 18:40 01/29/23 05:35 Dextrose 50% In Water 25 Gm/50 Ml Syringe IV-PUSH 01/28/24 18:39 25 gm PRN PRN Administration Hypoglycemia Docusate Sodium 100 mg 01/28/23 21:00 01/30/23 08:16 Docusate 100 Mg Capsule PO 01/28/24 20:59 100 mg BID PAULINO Administration Gabapentin 800 mg 01/28/23 22:00 01/30/23 13:55 Gabapentin 800 Mg Tablet PO 01/28/24 21:59 800 mg QID PAULINO Administration Glucose 0 gm 01/28/23 18:40 Dextrose 40% Gel 15 Gm Tube PO 01/28/24 18:39 PRN PRN Hypoglycemia Hydralazine HCl 10 mg 01/28/23 18:40 Hydralazine 20 Mg/Ml Vial IV-PUSH 01/28/24 18:39 Q4H PRN Hypertension Hydromorphone HCl 1 mg 01/29/23 18:00 01/30/23 10:28 Hydromorphone 1 Mg/Ml Syringe IV-PUSH 1 mg Q4H PRN Administration Pain Scale 8 - 10 Lactated Ringer's 1,000 mls @ 75 mls/hr 01/28/23 18:45 01/30/23 06:32 Lactated Ringers IV 01/28/24 18:44 75 mls/hr .[id number] PAULINO Administration Vancomycin HCl 1.25 gm/ 275 mls @ 183.333 mls/hr 01/29/23 06:30 01/30/23 06:33 Dextrose IV 01/29/24 06:29 183.33 mls/hr Q12H PAULINO Administration Piperacillin Sod/Tazobactam Sod 3.375 gm in 100 mls @ 200 mls/hr 01/28/23 20:30 01/30/23 13:55 Zosyn IV 200 mls/hr Q6H PAULINO Administration Insulin Aspart 0 units 01/28/23 22:00 01/30/23 11:57 Insulin Aspart 300 Units/3 Ml Insuln.Pen SUBCUT 01/28/24 21:59 Not Given TID.WM.HS PAULINO Protocol Levothyroxine Sodium 150 mcg 01/29/23 06:30 01/30/23 06:32 Levothyroxine 150 Mcg Tablet PO 01/29/24 06:29 150 mcg DAILY@0630 PAULINO Administration Losartan Potassium 50 mg 01/29/23 09:00 01/30/23 08:16 Losartan 50 Mg Tablet PO 01/29/24 08:59 50 mg QAM PAULINO Administration Metoprolol Succinate 50 mg 01/29/23 09:00 01/30/23 08:16 Metoprolol Succinate 50 Mg Tab.Er.24h PO 01/29/24 08:59 50 mg QAM PAULINO Administration Ondansetron HCl 4 mg 01/28/23 18:40 Ondansetron 4 Mg/2 Ml Vial IV-PUSH 01/28/24 18:39 Q8H PRN Nausea And Vomiting Oxycodone/Acetaminophen 2 tab 01/28/23 18:46 01/30/23 13:55 Oxycodone/Acetaminophen 5-325 Mg Tablet PO 2 tab Q6H PRN Administration Pain Sodium Chloride 0 ml 01/28/23 14:35 Sodium Chloride 0.9 % 10 Ml Syringe IV-PUSH 01/28/24 14:34 PRN PRN Flush Vancomycin HCl 1 each 01/28/23 18:40 Vancomycin - Pharmacy Dosing 1 Each Miscell IV ONCE PRN ZZ.Pharmacy Consult Protocol A&P - Hospitalist Assessment/Plan (1) Dry gangrene: (2) Diabetic foot infection: (3) PVD (peripheral vascular disease): Plan # L 3rd toe dry gangrene with surrounding cellulitis - worsened due to diabetes and PVD - dropped phone on foot 1 week ago and toe progressed to gangrene with purulence - XR with cellulitis, but no OM noted - MRI ordered and pending - blood and wound cultures obtained - started on empiric IV abx - will continue - podiatry, vascular surgery, and ID consulted - appreciate recs - sp angiogram and stent placed in LLE 01/29 - plan for surgical intervention on L 3rd toe Thursday 02/01 - wound care consulted - holding anticoagulation - pain control - PT/OT when able # HTN/HLD/PVD - cont home meds # Hypothyroid - cont home meds # DM2 - ISS while admitted. 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 ID, vascular surgery and podiatry consulted. Cont empiric abx. Follow cultures. Pt/OT when able. Will be here through the weekend Time Spent With Patient (min): 45 Documented By: Casa Givens DO 01/30/23 143 7 Signed By: <Electronically signed by Casa Givens DO> 01/30/23 1440 [facility] Work Phone: Progress note Author AUTUMN wallis [facility] January 30, 2023 3:13pm Note Date/Time January 30, 2023 2:59pm [facility] [address] [place] [address] Podiatry Progress Note Signed Patient: Ema Neff MR#: [id number] : 1965 Acct:[id number] Age/Sex: 58 / F Adm Date: 3 Loc: 4N Room: [address] [place] [address] Type: ADM IN Attending Dr: Casa Givens DO Copies to: ~ Subjective Subjective Date of Service: Date of Service: 01/30/2023 Time of Service: 14:57 Narrative: Ms. Neff is a 58 year old female who is typically followed by my partner Dr. Mehta. She has recently undergone second left toe amputation and he continues to follow for wounds at the amputation site. Patient recently dropped her cell phone on the third left toe which caused a wound which subsequently turned blackover the past week. Patient has history of peripheral arterial disease with history of previous vascular intervention, diabetes with peripheral neuropathy and history of chronic ulcerations of both feet. She has history of chronic pain associated with her back which apparently has made pain control in the lower extremities difficult at times. The patient's peripheral arterial diseaseis also fairly severe and unfortunately no further intervention is available. Ischemia is likely contributing to her lower extremity pain as well. She deniesany fever or chills. She feels that she is somewhat better today particularly with regard to her pain upon admission. Exam Physical Exam Vital Signs: Temp Pulse Resp BP Pulse Ox O2 Del Method O2 Flow Rate 98.4 F 85 18 95/67 L 95 Room Air 1 01/30/23 11:44 01/30/23 11:44 01/30/23 11:44 01/30/23 11:44 01/30/23 11:44 01/30/23 11:44 01/29/23 15:55 Narrative: General: Patient is seen at bedside and is awake and wearing in no acute distress. Vascular: DP pulse trace and PT pulses 0/4 and temperature gradient is warm to cool.? No significant edema noted today. Dr. Mon has performed vascular intervention in the form of angiogram today she continues to demonstrate significant peripheral arterial disease in the left lower extremity. Unfortunately there are no further vascular intervention that could be performedto improve her circulation. Neurological: Absent vibratory sensation at the first MP joint bilaterally.? Decreased light touch sensation distal to the midfoot bilaterally Dermatological: Skin is thinning with diminished hair growth bilaterally.? No hyperkeratotic lesions are noted.? Patient has history of second toe amputationsbilaterally.? Ulcerations are noted as described below Musculoskeletal: +5/5 muscle strength bilaterally, mild hammertoe deformities noted bilaterally Podiatric: Ulcerated lesions are noted on the left foot. Dry gangrenous lesion on the distal lateral third left toe. This lesion measures 2.5 x 1.0 cm in diameter and is superficial. There does not appear to be any significant drainage. No sinus tract or undermining noted. Amputation site of the second left toe demonstrates an ulcer 1.2 x 1.2 cm in diameter and 0.2 cm in depth.? The base of this wound is mixed granular and fibrotic.? No sinus track or undermining noted here.? All wounds demonstrate local erythema surrounding the lesions. Lesions are also very tender to the touch and no debridement can be performed due to the sensitivity.? CRP is 0.5 and WBC is trending lower. Culture and sensitivity preliminary report indicates NSF. X-rays did not revealobvious erosive changes suggestive of osteomyelitis. MRI study was completed and was somewhat compromised by motion artifact. No abscesses were noted and nobone marrow edema was noted within the underlying osseous structures of her wounds. No destructive changes noted. Assessment/Plan (1) Dry gangrene: Assessment/Problem Details: Completed initial examination. Discussed treatment options with the patient at length. Dr. Mon is completed vascular evaluation and angiogram. Unfortunately no further vascular intervention can be performed due to the severity of her PAD. MRI study was completed and no evidence of abscess or osteomyelitis noted. Once again we discussed the treatment options with patientat length. She would like to pursue wound further wound care at this point and postpone amputation if possible. Given the stability of her wound on the third left toe we can follow this course. Amputation may still be necessary and this can be done in the outpatient setting. Of course there is no guarantee that theamputation site would heal either. The patient has undergone bilateral second toe amputations and both of these surgical sites remain open. Advised patient Iwould recommend compounded nifedipine gel from [employer] which can be used around her wounds to try to increase blood flow and promote further healing. Apparently this option was presented to her in the past but she did not wish to pay the [id number] cost for this medication. She is reconsidering this option at this time and we will contact [employer] with regards to the cost. Her questions were answered to her satisfaction and she will consider her options as noted above. She understands that no guarantees can be made or implied with regard to the salvageability of the left foot. We have tentativelyscheduled surgery for Wednesday under IV sedation. We will plan on performing wound debridements of both wounds on the left foot. If her third left toe should worsen prior to surgery we may still need to consider amputation. Code(s): I96 - Gangrene, not elsewhere classified (2) Ulcer of left foot, limited to breakdown of skin: Code(s): L97.521 - Non-pressure chronic ulcer of other part of left foot limited to breakdown of skin (3) PAD (peripheral artery disease): Code(s): I73.9 - Peripheral vascular disease, unspecified (4) Type 2 diabetes mellitus with peripheral neuropathy: Code(s): E11.42 - Type 2 diabetes mellitus with diabetic polyneuropathy Documented By: Ayan Deluna,TERESA, AUTUMN 1454 Signed By: <Electronically signed by TERESA Deluna> 01/30/23 2099 [facility] Work Phone: Progress note Author AUTUMN wallis [facility] January 31, 2023 12:58pm Note Date/Time January 31, 2023 12:27pm [facility] [address] [place] [address] Podiatry Progress Note Signed Patient: Ema Neff MR#: [id number] : 1965 Acct:[id number] Age/Sex: 58 / F Adm Date: 3 Loc: 4N Room: 9U7244-3 Type: ADM IN Attending Dr: Casa Givens DO Copies to: ~ Subjective Subjective Date of Service: Date of Service: 01/31/2023 Time of Service: 12:25 Narrative: Ms. Neff is a 58 year old female who is typically followed by my partner Dr. Mehta. She has recently undergone second left toe amputation and he continues to follow for wounds at the amputation site. Patient recently dropped her cell phone on the third left toe which caused a wound which subsequently turned blackover the past week. Patient has history of peripheral arterial disease with history of previous vascular intervention, diabetes with peripheral neuropathy and history of chronic ulcerations of both feet. She has history of chronic pain associated with her back which apparently has made pain control in the lower extremities difficult at times. The patient's peripheral arterial diseaseis also fairly severe and unfortunately no further intervention is available. Ischemia is likely contributing to her lower extremity pain as well. She deniesany fever or chills. Patient reports that pain has been under control with painmedication and she feels as though she is slowly continuing to improve. Exam Physical Exam Vital Signs: Temp Pulse Resp BP Pulse Ox O2 Del Method O2 Flow Rate 98 F 83 16 102/71 98 Room Air 1 01/31/23 11:09 01/31/23 11:09 01/31/23 11:09 01/31/23 11:09 01/31/23 11:09 01/31/23 11:09 01/29/23 15:55 Narrative: General: Patient is seen at bedside and is awake and wearing in no acute distress. Vascular: DP pulse trace and PT pulses 0/4 and temperature gradient is warm to cool.? No significant edema noted today. Dr. Mon has performed vascular intervention in the form of angiogram today she continues to demonstrate significant peripheral arterial disease in the left lower extremity. Unfortunately there are no further vascular intervention that could be performedto improve her circulation. Neurological: Absent vibratory sensation at the first MP joint bilaterally.? Decreased light touch sensation distal to the midfoot bilaterally Dermatological: Skin is thinning with diminished hair growth bilaterally.? No hyperkeratotic lesions are noted.? Patient has history of second toe amputationsbilaterally.? Ulcerations are noted as described below Musculoskeletal: +5/5 muscle strength bilaterally, mild hammertoe deformities noted bilaterally Podiatric: Ulcerated lesions are noted on the left foot. Dry gangrenous lesion on the distal lateral third left toe. This lesion measures 2.5 x 1.0 cm in diameter and is superficial. There does not appear to be any significant drainage. No sinus tract or undermining noted. Amputation site of the second left toe demonstrates an ulcer 1.2 x 1.2 cm in diameter and 0.2 cm in depth.? The base of this wound is mixed granular and fibrotic.? No sinus track or undermining noted here.? All wounds demonstrate local erythema surrounding the lesions. Lesions are also very tender to the touch and no debridement can be performed due to the sensitivity.? CRP is 0.5 and WBC is now in normal range at 11.3. Culture and sensitivity preliminary report pulmonary report indicates light growth of corynebacterium striatum. X-rays did not reveal obvious erosivechanges suggestive of osteomyelitis. MRI study was completed and was somewhat compromised by motion artifact. No abscesses were noted and no bone marrow edema was noted within the underlying osseous structures of her wounds. No destructive changes noted. Assessment/Plan (1) Dry gangrene: Assessment/Problem Details: Completed initial examination. Discussed treatment options with the patient at length. Dr. Mon is completed vascular evaluation and angiogram. Unfortunately no further vascular intervention can be performed due to the severity of her PAD. MRI study was completed and no evidence of abscess or osteomyelitis noted. Once again we discussed the treatment options with patientat length. She would like to pursue wound further wound care at this point and postpone amputation if possible. Given the stability of her wound on the third left toe we can follow this course. Amputation may still be necessary and this can be done in the outpatient setting if needed. Of course there is no guarantee that the amputation site would heal either. The patient has undergonebilateral second toe amputations and both of these surgical sites remain open. Advised patient that upon discharge, I would recommend compounded nifedipine gelfrom [facility] which can be used around her wounds to try to increase blood flow and promote further healing. Apparently this option was presented to her in the past but she did not wish to pay the [id number] cost for this medication. She is reconsidering this option at this time and we will contact [employer] with regards to the cost. Her questions were answered to her satisfaction. She understands that no guarantees can be made or implied with regard to the salvageability of the left foot. We have tentatively scheduled surgery for Wednesday under IV sedation. Patient will be n.p.o. after light breakfast on the morning of 02/01/2023. We will plan on performing wound debridements of both wounds on the left foot. We discussed the risks and complications of the surgical procedure including but not limited to worsening infection, need for further surgery, loss of limb, blood clots, and pain. Patient voiced understanding and wishes to proceed. Once surgery is completed, if patient continues to do well she will be clear from a podiatric standpoint for discharge with continued wound care at home and antibiotic therapy as recommended by Dr. Sykes. Code(s): I96 - Gangrene, not elsewhere classified (2) Ulcer of left foot, limited to breakdown of skin: Code(s): L97.521 - Non-pressure chronic ulcer of other part of left foot limited to breakdown of skin (3) PAD (peripheral artery disease): Code(s): I73.9 - Peripheral vascular disease, unspecified (4) Type 2 diabetes mellitus with peripheral neuropathy: Code(s): E11.42 - Type 2 diabetes mellitus with diabetic polyneuropathy Documented By: Ayan Deluna DPM, AUTUMN 1225 Signed By: <Electronically signed by TERESA Deluna> 01/31/[address] [facility] Work Phone: Progress note Author Casa Givens [facility] January 31, 2023 4:03pm Note Date/Time January 31, 2023 4:02pm [facility] [address] [place], [place] [id number] Hospitalist Progress Note Signed Patient: Ema Neff MR#: [id number] : 1965 Acct:[id number] Age/Sex: 58 / F Adm Date: 3 Loc: 4N Room: [address] [place] [address] Type: ADM IN Attending Dr: Casa Givens DO Copies to: ~ Date of Service: 01/31/2023 Subjective Subjective Narrative: Pt seen and examined. Sp vascular angiogram and stent placement in LLE 01/29. Plan is for surgical intervention on the toe Thursday 02/01. MRI without evidence of OM. Pain controlled. No complaints today Exam Physical Exam Vital Signs: Temp Pulse Resp BP Pulse Ox O2 Del Method O2 Flow Rate 98.8 F 78 16 137/83 95 Room Air 1 01/31/23 15:43 01/31/23 15:43 01/31/23 15:43 01/31/23 15:43 01/31/23 15:43 01/31/23 15:43 01/29/23 15:55 Narrative: General: Lying in bed comfortably HEENT: Normocephalic, atraumatic, trachea midline Respiratory: non labored Cardiovascular: RRR, normal S1 and S2 Abdominal: soft, non-distended Skin: warm, dry, L 2nd toe amputation. L 3rd toe with black eschar over dorsal aspect with purulence and surrounding erythema. Bilateral LE discoloration due to chronic venous stasis skin changes and PVD MSK: no edema Objective Lab Results 01/31/23 05:06 01/31/23 05:06 Microbiology Results Microbiology 01/29/23 15:55 Foot,Left - Ulcer Superficial Wound Culture - Final Corynebacterium striatum group 01/28/23 16:46 Blood - Right Antecubital Blood Culture - Preliminary No Growth 2 Days 01/28/23 16:30 Blood - Left Antecubital Blood Culture - Preliminary No Growth 2 Days Meds Allergies and Active Meds Allergies hydrocodone [From Vicodin] Allergy (Verified 01/28/23 14:35) Hallucinating Steroid Injection Allergy (Uncoded 01/28/23 14:35) Swelling Active Meds: Active Medications Generic Name Dose Route Start Last Admin Trade Name Amarilis PRN Reason Stop Dose Admin Acetaminophen 650 mg 01/28/23 18:40 Acetaminophen 325 Mg Tablet PO 01/28/24 18:39 Q6HR PRN Pain Scale 1 - 3 or fever Aspirin 81 mg 01/29/23 09:00 01/31/23 08:55 Aspirin 81 Mg Tablet.Dr PO 01/29/24 08:59 81 mg QAM PAULINO Administration Atorvastatin Calcium 40 mg 01/29/23 09:00 01/31/23 08:53 Atorvastatin 40 Mg Tablet PO 01/29/24 08:59 40 mg QAM PAULINO Administration Clopidogrel Bisulfate 75 mg 01/29/23 09:00 01/31/23 08:54 Clopidogrel Bisulfate 75 Mg Tablet PO 01/29/24 08:59 75 mg QAM PAULINO Administration Collagenase 1 applic 01/29/23 11:00 01/31/23 09:03 Collagenase 250 Unit/Gm Oint 30 Gm Tube TOPICAL 01/29/24 10:59 1 applic DAILY PAULINO Administration Sodium Chloride 500 ml/ 0 ml 02/01/23 17:00 Cefazolin Sodium 1 gm IRRIGATION 02/01/23 17:01 ONCE ONE Dextrose 0 gm 01/28/23 18:40 01/29/23 05:35 Dextrose 50% In Water 25 Gm/50 Ml Syringe IV-PUSH 01/28/24 18:39 25 gm PRN PRN Administration Hypoglycemia Docusate Sodium 100 mg 01/28/23 21:00 01/31/23 08:54 Docusate 100 Mg Capsule PO 01/28/24 20:59 Not Given BID PAULINO Gabapentin 800 mg 01/28/23 22:00 01/31/23 13:37 Gabapentin 800 Mg Tablet PO 01/28/24 21:59 800 mg QID PAULINO Administration Glucose 0 gm 01/28/23 18:40 Dextrose 40% Gel 15 Gm Tube PO 01/28/24 18:39 PRN PRN Hypoglycemia Hydralazine HCl 10 mg 01/28/23 18:40 Hydralazine 20 Mg/Ml Vial IV-PUSH 01/28/24 18:39 Q4H PRN Hypertension Hydromorphone HCl 1 mg 01/29/23 18:00 01/31/23 13:37 Hydromorphone 1 Mg/Ml Syringe IV-PUSH 1 mg Q4H PRN Administration Pain Scale 8 - 10 Lactated Ringer's 1,000 mls @ 75 mls/hr 01/28/23 18:45 01/31/23 13:38 Lactated Ringers IV 01/28/24 18:44 75 mls/hr .[id number] PAULINO Administration Piperacillin Sod/Tazobactam Sod 3.375 gm in 100 mls @ 200 mls/hr 01/28/23 20:30 01/31/23 13:36 Zosyn IV 200 mls/hr Q6H APULINO Administration Vancomycin HCl 1 gm in 250 mls @ 250 mls/hr 01/31/23 06:30 01/31/23 06:15 Vancomycin IV 250 mls/hr Q12H PAULINO Administration Insulin Aspart 0 units 01/28/23 22:00 01/31/23 12:07 Insulin Aspart 300 Units/3 Ml Insuln.Pen SUBCUT 01/28/24 21:59 Not Given TID.WM.HS [facility] Protocol Levothyroxine Sodium 150 mcg 01/29/23 06:30 01/31/23 06:15 Levothyroxine 150 Mcg Tablet PO 01/29/24 06:29 150 mcg DAILY@0630 PAULINO Administration Losartan Potassium 50 mg 01/29/23 09:00 01/31/23 08:55 Losartan 50 Mg Tablet PO 01/29/24 08:59 50 mg QAM PAULINO Administration Metoprolol Succinate 50 mg 01/29/23 09:00 01/31/23 08:53 Metoprolol Succinate 50 Mg Tab.Er.24h PO 01/29/24 08:59 50 mg QAM PAULINO Administration Ondansetron HCl 4 mg 01/28/23 18:40 Ondansetron 4 Mg/2 Ml Vial IV-PUSH 01/28/24 18:39 Q8H PRN Nausea And Vomiting Oxycodone/Acetaminophen 2 tab 01/28/23 18:46 01/31/23 10:54 Oxycodone/Acetaminophen 5-325 Mg Tablet PO 2 tab Q6H PRN Administration Pain Sodium Chloride 0 ml 01/28/23 14:35 01/31/23 08:59 Sodium Chloride 0.9 % 10 Ml Syringe IV-PUSH 01/28/24 14:34 10 ml PRN PRN Administration Flush Vancomycin HCl 1 each 01/28/23 18:40 Vancomycin - Pharmacy Dosing 1 Each Miscell IV ONCE PRN ZZ.Pharmacy Consult Protocol A&P - Hospitalist Assessment/Plan (1) Dry gangrene: (2) Diabetic foot infection: (3) PVD (peripheral vascular disease): Plan # L 3rd toe dry gangrene with surrounding cellulitis - worsened due to diabetes and PVD - dropped phone on foot 1 week ago and toe progressed to gangrene with purulence - XR with cellulitis, but no OM noted - MRI with soft tissue swelling consistent with cellulitis, but no evidence of OM - blood and wound cultures obtained - started on empiric IV abx - will continue - podiatry, vascular surgery, and ID consulted - appreciate recs - sp angiogram and stent placed in LLE 01/29 - plan for surgical intervention on L 3rd toe Thursday 02/01 - wound care consulted - holding anticoagulation - pain control - PT/OT when able # HTN/HLD/PVD - cont home meds # Hypothyroid - cont home meds # DM2 - ISS while admitted. 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 ID, vascular surgery and podiatry consulted. Cont empiric abx. Follow cultures. Pt/OT when able. Will be here through the weekend Time Spent With Patient (min): 45 Documented By: Casa Givens DO 01/31/23 160 1 Signed By: <Electronically signed by Casa Givens DO> 01/31/23 1603 [facility] Work Phone: Progress note Author Rolando Sykes [facility] February 01, 2023 9:00am Note Date/Time February 01, 2023 9:00am [facility] [address] [place] [address] Infect. Disease Progress Note Signed Patient: Ema Neff MR#: [id number] : 1965 Acct:[id number] Age/Sex: 58 / F Adm Date: 3 Loc: 4N Room: [address] [place] [address] Type: ADM IN Attending Dr: Casa Givens DO Copies to: ~ Date of Service: 02/01/2023 Subjective Interval history: Patient is scheduled for surgery later today but unfortunately her arterial studies did not show any viable further intervention options. She is scheduled for podiatric surgery later today patient has been having multiple bowel movements from her antibiotics. C. difficile from 1120 was negative. She was given 1 dose of Imodium. Exam Physical Exam Vital Signs: Temp Pulse Resp BP Pulse Ox O2 Del Method O2 Flow Rate 97.4 F L 87 16 131/85 99 Room Air 1 02/01/23 08:00 02/01/23 08:00 02/01/23 08:00 02/01/23 08:00 02/01/23 08:00 02/01/23 08:00 01/29/23 15:55 Const General: cooperative and comfortable Orientation: oriented x3 HEENT Head: normal to inspection Ears: hearing grossly normal bilaterally Nose: external nose normal Eyes General: appearance normal, both eyes and all related structures Neck Neck: normal visual inspection Chest Chest palpation & inspection: normal inspection of the chest Resp Effort & Inspection: normal respiratory effort Auscultation: clear to auscultation bilaterally Cardio Palpation: normal PMI Rate: regular rate Rhythm: regular rhythm GI Inspection: normal to inspection Palpation: soft Auscultation: normal bowel sounds Skin Lesions: lesion noted (left 3rd toe dorsal black scab) Other: Swelling of the toe noted along with forefoot. Erythematous changes that are deeper in color. Tender to touch. Warmth going up the anterior bella. Some stasis changes noted of the bella Neuro General: patient oriented x3 Extrem General: abnormal to inspection (see above) Objective Labs CBC/BMP: CBC, BMP 02/01/23 02/01/23 05:12 05:12 Corrected WBC 11.5 Uncorrected WBC Count 11.5 RBC 4.61 Hgb 14.3 Hct 43.7 Plt Count 273 Sodium 138 Potassium 4.3 Chloride 102 Carbon Dioxide 29.2 Anion Gap 11.1 BUN 8 Creatinine 1.07 Calcium 8.5 L Labs: 02/01/23 05:12 BUN 8 Creatinine 1.07 Microbiology Microbiology: Microbiology - Results from entire visit 01/28/23 16:46 Blood - Right Antecubital Blood Culture - Preliminary No Growth 3 Days 01/28/23 16:30 Blood - Left Antecubital Blood Culture - Preliminary No Growth 3 Days 01/29/23 15:55 Foot,Left - Ulcer Superficial Wound Culture - Final Corynebacterium striatum group Allergies and Medications Allergies and Active Meds Allergies hydrocodone [From Vicodin] Allergy (Verified 01/28/23 14:35) Hallucinating Steroid Injection Allergy (Uncoded 01/28/23 14:35) Swelling Active Medications Acetaminophen (Acetaminophen 325 Mg Tablet) 650 mg PO Q6HR PRN PRN Reason: Pain Scale 1 - 3 or fever Stop: 01/28/24 18:39 Aspirin (Aspirin 81 Mg Tablet.Dr) [facility] Stop: 01/29/24 08:59 Last Admin: 02/01/23 08:25 Dose: 81 mg Atorvastatin Calcium (Atorvastatin 40 Mg Tablet) 40 [facility] Stop: 01/29/24 08:59 Last Admin: 02/01/23 08:25 Dose: 40 mg Clopidogrel Bisulfate (Clopidogrel Bisulfate 75 Mg Tablet) 75 [facility] Stop: 01/29/24 08:59 Last Admin: 02/01/23 08:35 Dose: 75 mg Collagenase (Collagenase 250 Unit/Gm Oint 30 Gm Tube) 1 applic TOPICAL DAILY [facility] Stop: 01/29/24 10:59 Last Admin: 02/01/23 08:28 Dose: 1 applic Sodium Chloride 500 ml/ (Cefazolin Sodium 1 gm) 0 ml IRRIGATION ONCE ONE Stop: 02/01/23 17:01 Dextrose (Dextrose 50% In Water 25 Gm/50 Ml Syringe) 0 gm IV-PUSH PRN PRN PRN Reason: Hypoglycemia Stop: 01/28/24 18:39 Last Admin: 01/29/23 05:35 Dose: 25 gm Docusate Sodium (Docusate 100 Mg Capsule) 100 mg PO BID [facility] Stop: 01/28/24 20:59 Last Admin: 02/01/23 08:28 Dose: Not Given Gabapentin (Gabapentin 800 Mg Tablet) 800 mg PO QID [facility] Stop: 01/28/24 21:59 Last Admin: 02/01/23 08:25 Dose: 800 mg Glucose (Dextrose 40% Gel 15 Gm Tube) 0 gm PO PRN PRN PRN Reason: Hypoglycemia Stop: 01/28/24 18:39 Hydralazine HCl (Hydralazine 20 Mg/Ml Vial) 10 mg IV-PUSH Q4H PRN PRN Reason: Hypertension Stop: 01/28/24 18:39 Hydromorphone HCl (Hydromorphone 1 Mg/Ml Syringe) 1 mg IV-PUSH Q4H PRN PRN Reason: Pain Scale 8 - 10 Last Admin: 02/01/23 05:57 Dose: 1 mg Lactated Ringer's (Lactated Ringers) 1,000 mls @ 75 mls/hr IV .[id number] [facility] Stop: 01/28/24 18:44 Last Admin: 02/01/23 08:23 Dose: 75 mls/hr Piperacillin Sod/Tazobactam Sod (Zosyn) 3.375 gm in 100 mls @ 200 mls/hr IV Q6HS Last Admin: 02/01/23 08:35 Dose: 200 mls/hr Vancomycin HCl (Vancomycin) 1 gm in 250 mls @ 250 mls/hr IV Q12H [facility] Last Admin: 02/01/23 05:56 Dose: 250 mls/hr Lactated Ringer's (Lactated Ringers) 1,000 mls @ 20 mls/hr IV .Q24H ONE Stop: 02/02/23 07:59 Last Admin: 02/01/23 08:24 Dose: Not Given Insulin Aspart (Insulin Aspart 300 Units/3 Ml Insuln.Pen) 0 units SUBCUT TID..[facility]; Protocol Stop: 01/28/24 21:59 Last Admin: 02/01/23 08:21 Dose: Not Given Levothyroxine Sodium (Levothyroxine 150 Mcg Tablet) 150 mcg PO DAILY@0630 [facility] Stop: 01/29/24 06:29 Last Admin: 02/01/23 05:56 Dose: 150 mcg Lidocaine HCl (Lidocaine 1% 50 Ml Vial) 0.1 ml INTRADERMA PREOP PRN PRN Reason: Venipuncture x 1 Dose Losartan Potassium (Losartan 50 Mg Tablet) 50 mg PO [facility] Stop: 01/29/24 08:59 Last Admin: 02/01/23 08:25 Dose: 50 mg Metoprolol Succinate (Metoprolol Succinate 50 Mg Tab.Er.24h) 50 mg [facility] Stop: 01/29/24 08:59 Last Admin: 02/01/23 08:25 Dose: 50 mg Ondansetron HCl (Ondansetron 4 Mg/2 Ml Vial) 4 mg IV-PUSH Q8H PRN PRN Reason: Nausea And Vomiting Stop: 01/28/24 18:39 Oxycodone/Acetaminophen (Oxycodone/Acetaminophen 5-325 Mg Tablet) 2 tab PO Q6H PRN PRN Reason: Pain Last Admin: 02/01/23 08:35 Dose: 2 tab Sodium Chloride (Sodium Chloride 0.9 % 10 Ml Syringe) 0 ml IV-PUSH PRN PRN PRN Reason: Flush Stop: 01/28/24 14:34 Last Admin: 01/31/23 08:59 Dose: 10 ml Sodium Chloride (Sodium Chloride 0.9 % 10 Ml Syringe) 0 ml IV-PUSH PRN PRN PRN Reason: Flush Stop: 02/01/24 03:04 Vancomycin HCl (Vancomycin - Pharmacy Dosing 1 Each Miscell) 1 each IV ONCE PRN; Protocol PRN Reason: ZZ.Pharmacy Consult A&P - Infectious Disease Assessment/Plan (1) Peripheral vascular occlusive disease: Code(s): I73.9 - Peripheral vascular disease, unspecified Status: Acute (2) Diabetic infection of left foot: Code(s): E11.628 - Type 2 diabetes mellitus with other skin complications; L08.9 - Local infection of the skin and subcutaneous tissue, unspecified Status: Acute (3) Surgical wound, non healing: Code(s): T81.89XA - Other complications of procedures, not elsewhere classified, initial encounter Status: Acute (4) Cellulitis: Code(s): L03.90 - Cellulitis, unspecified Status: Acute Plan Patient scheduled for surgery but concern over wound healing has to be considered given the results of her vascular study. Ultimately feel that if youare going to be conservative and attempt everything we can to heal these wounds she will require IV antibiotics on discharge. Therefore will have PICC line placed. For now maintaining broad-spectrum coverage with vancomycin and Zosyn. We will follow-up on deep operative cultures when they are returned and hopefully be able to narrow significantly her coverage with this information. Documented By: Rolando Sykes MD 02/01/23 3468 Signed By: <Electronically signed by MD Rolando Sykes> 02/01/[address] [facility] Work Phone: Progress note Author Rolando Sykes [facility] February 02, 2023 9:08am Note Date/Time February 02, 2023 9:06am [facility] [address] [place] [address] Infect. Disease Progress Note Signed Patient: mEa Neff MR#: [id number] : 1965 Acct:[id number] Age/Sex: 58 / F Adm Date: 3 Loc: 4N Room: [address] [place] [address] Type: ADM IN Attending Dr: Ryland Liu MD Copies to: ~ Date of Service: 02/02/2023 Subjective Interval history: Patient did get her PICC line yesterday. She is status post wound debridement of the lesions on the second left toe amputation site and dorsal third left toe Exam Physical Exam Vital Signs: Temp Pulse Resp BP Pulse Ox O2 Del Method O2 Flow Rate 98.3 F 77 18 110/76 93 L Room Air 8 02/02/23 07:52 02/02/23 07:52 02/02/23 07:52 02/02/23 07:52 02/02/23 07:52 02/02/23 08:00 02/01/23 18:47 Const General: cooperative and comfortable Orientation: oriented x3 HEENT Head: normal to inspection Ears: hearing grossly normal bilaterally Nose: external nose normal Eyes General: appearance normal, both eyes and all related structures Neck Neck: normal visual inspection Chest Chest palpation & inspection: normal inspection of the chest Resp Effort & Inspection: normal respiratory effort Auscultation: clear to auscultation bilaterally Cardio Palpation: normal PMI Rate: regular rate Rhythm: regular rhythm GI Inspection: normal to inspection Palpation: soft Auscultation: normal bowel sounds Skin Lesions: lesion noted (left 3rd toe dorsal black scab) Other: Left foot is wrapped with surgical dressing Neuro General: patient oriented x3 Extrem General: abnormal to inspection (see above) Objective Labs CBC/BMP: CBC, BMP 02/02/23 02/02/23 05:00 05:00 Corrected WBC 13.0 H Uncorrected WBC Count 13.0 H RBC 4.44 Hgb 13.6 Hct 41.9 Plt Count 262 Sodium 139 Potassium 3.6 Chloride 101 Carbon Dioxide 30.1 Anion Gap 11.5 BUN 8 Creatinine 0.98 Calcium 8.7 Labs: 02/02/23 05:00 BUN 8 Creatinine 0.98 Microbiology Microbiology: Microbiology - Results from entire visit 01/28/23 16:46 Blood - Right Antecubital Blood Culture - Preliminary No Growth 4 Days 01/28/23 16:30 Blood - Left Antecubital Blood Culture - Preliminary No Growth 4 Days 01/29/23 15:55 Foot,Left - Ulcer Superficial Wound Culture - Final Corynebacterium striatum group Allergies and Medications Allergies and Active Meds Allergies hydrocodone [From Vicodin] Allergy (Verified 01/28/23 14:35) Hallucinating Steroid Injection Allergy (Uncoded 01/28/23 14:35) Swelling Active Medications Acetaminophen (Acetaminophen 325 Mg Tablet) 650 mg PO Q6HR PRN PRN Reason: Pain Scale 1 - 3 or fever Stop: 01/28/24 18:39 Aspirin (Aspirin 81 Mg Tablet.Dr) 81 [facility] Stop: 01/29/24 08:59 Last Admin: 02/02/23 08:02 Dose: 81 mg Atorvastatin Calcium (Atorvastatin 40 Mg Tablet) 40 mg PO [facility] Stop: 01/29/24 08:59 Last Admin: 02/02/23 08:02 Dose: 40 mg Clopidogrel Bisulfate (Clopidogrel Bisulfate 75 Mg Tablet) 75 [facility] Stop: 01/29/24 08:59 Last Admin: 02/02/23 08:02 Dose: 75 mg Collagenase (Collagenase 250 Unit/Gm Oint 30 Gm Tube) 1 applic TOPICAL DAILY [facility] Stop: 01/29/24 10:59 Last Admin: 02/02/23 08:04 Dose: 1 applic Cyclobenzaprine HCl (Cyclobenzaprine 10 Mg Tablet) 10 mg PO Q8HR PRN PRN Reason: Back spasm Stop: 02/01/24 21:59 Last Admin: 02/01/23 21:22 Dose: 10 mg Dextrose (Dextrose 50% In Water 25 Gm/50 Ml Syringe) 0 gm IV-PUSH PRN PRN PRN Reason: Hypoglycemia Stop: 01/28/24 18:39 Last Admin: 01/29/23 05:35 Dose: 25 gm Docusate Sodium (Docusate 100 Mg Capsule) 100 mg PO BID [facility] Stop: 01/28/24 20:59 Last Admin: 02/02/23 08:06 Dose: Not Given Gabapentin (Gabapentin 800 Mg Tablet) 800 mg PO QID [facility] Stop: 01/28/24 21:59 Last Admin: 02/02/23 08:02 Dose: 800 mg Glucose (Dextrose 40% Gel 15 Gm Tube) 0 gm PO PRN PRN PRN Reason: Hypoglycemia Stop: 01/28/24 18:39 Heparin Sodium (Porcine) (Heparin-Lock 500 Unit/5 Ml Syringe) 500 unit IV-PUSH Q24H [facility] Stop: 02/01/24 13:59 Last Admin: 02/01/23 14:59 Dose: Not Given Hydralazine HCl (Hydralazine 20 Mg/Ml Vial) 10 mg IV-PUSH Q4H PRN PRN Reason: Hypertension Stop: 01/28/24 18:39 Hydromorphone HCl (Hydromorphone 1 Mg/Ml Syringe) 1 mg IV-PUSH Q3H PRN PRN Reason: Pain Scale 8 - 10 Last Admin: 02/02/23 07:58 Dose: 1 mg Lactated Ringer's (Lactated Ringers) 1,000 mls @ 75 mls/hr IV .[id number] [facility] Stop: 01/28/24 18:44 Last Admin: 02/02/23 05:46 Dose: 75 mls/hr Piperacillin Sod/Tazobactam Sod (Zosyn) 3.375 gm in 100 mls @ 200 mls/hr IV Q6HS Last Admin: 02/02/23 07:57 Dose: 200 mls/hr Vancomycin HCl (Vancomycin) 1 gm in 250 mls @ 250 mls/hr IV Q12H [facility] Last Admin: 02/02/23 05:40 Dose: 250 mls/hr Insulin Aspart (Insulin Aspart 300 Units/3 Ml Insuln.Pen) 0 units SUBCUT TID.[facility]; Protocol Stop: 01/28/24 21:59 Last Admin: 02/02/23 08:02 Dose: 3 units Levothyroxine Sodium (Levothyroxine 150 Mcg Tablet) 150 mcg PO DAILY@0630 [facility] Stop: 01/29/24 06:29 Last Admin: 02/02/23 05:45 Dose: 150 mcg Lidocaine HCl (Lidocaine 1% 50 Ml Vial) 0.1 ml INTRADERMA PREOP PRN PRN Reason: Venipuncture x 1 Dose Loperamide HCl (Loperamide 2 Mg Capsule) 2 mg PO Q2H PRN PRN Reason: Diarrhea Stop: 02/01/24 13:56 Last Admin: 02/02/23 08:05 Dose: 2 mg Losartan Potassium (Losartan 50 Mg Tablet) [facility] Stop: 01/29/24 08:59 Last Admin: 02/02/23 08:02 Dose: 50 mg Metoprolol Succinate (Metoprolol Succinate 50 Mg Tab.Er.24h) 50 [facility] Stop: 01/29/24 08:59 Last Admin: 02/02/23 08:06 Dose: Not Given Ondansetron HCl (Ondansetron 4 Mg/2 Ml Vial) 4 mg IV-PUSH Q8H PRN PRN Reason: Nausea And Vomiting Stop: 01/28/24 18:39 Last Admin: 02/01/23 10:11 Dose: 4 mg Oxycodone/Acetaminophen (Oxycodone/Acetaminophen 5-325 Mg Tablet) 2 tab PO Q6H PRN PRN Reason: Pain Last Admin: 02/02/23 05:47 Dose: 2 tab Sodium Chloride (Sodium Chloride 0.9 % 10 Ml Syringe) 0 ml IV-PUSH PRN PRN PRN Reason: Flush Stop: 01/28/24 14:34 Last Admin: 02/02/23 07:58 Dose: 10 ml Sodium Chloride (Sodium Chloride 0.9 % 10 Ml Syringe) 0 ml IV-PUSH PRN PRN PRN Reason: Flush Stop: 02/01/24 03:04 Sodium Chloride (Sodium Chloride 0.9 % 10 Ml Syringe) 0 ml IV-PUSH PRN PRN PRN Reason: Flush Stop: 02/01/24 08:59 Sodium Chloride (Sodium Chloride 0.9 % 10 Ml Syringe) 0 ml IV-PUSH QSHIFT [facility] Stop: 02/01/24 13:59 Last Admin: 02/02/23 05:49 Dose: Not Given Vancomycin HCl (Vancomycin - Pharmacy Dosing 1 Each Miscell) 1 each IV ONCE PRN; Protocol PRN Reason: ZZ.Pharmacy Consult A&P - Infectious Disease Assessment/Plan (1) Peripheral vascular occlusive disease: Code(s): I73.9 - Peripheral vascular disease, unspecified Status: Acute (2) Diabetic infection of left foot: Code(s): E11.628 - Type 2 diabetes mellitus with other skin complications; L08.9 - Local infection of the skin and subcutaneous tissue, unspecified Status: Acute (3) Surgical wound, non healing: Code(s): T81.89XA - Other complications of procedures, not elsewhere classified, initial encounter Status: Acute (4) Cellulitis: Code(s): L03.90 - Cellulitis, unspecified Status: Acute Plan Patient had intraoperative culture collected yesterday. Obviously this is an antibiotic for 48 to 72 hours. Based on culture results superficially corynebacterium and light growth her Zosyn may not even be covering this. Without being able to predict what potential surgical operative culture collected yesterday will grow if discharge is warranted before this information is back could consider just IV vancomycin for a couple week treatment period. May have to adjust choice of antibiotic if culture results suggest different pathogen present. Documented By: Rolando Sykes MD 02/02/23901 Signed By: <Electronically signed by MD Rolando Sykes> 02/02/23907 [facility] Work Phone: Progress note Author Ryland Liu [facility] February 02, 2023 11:52am Note Date/Time February 02, 2023 11:47am [facility] [address] [place] [address] Hospitalist Progress Note Signed Patient: Ema Neff MR#: [id number] : 1965 Acct:[id number] Age/Sex: 58 / F Adm Date: 3 Loc: Room: [address] [place] [address] Type: ADM IN Attending Dr: Ryland Liu MD Copies to: ~ Date of Service: 02/02/2023 Subjective Subjective Narrative: Patient seen and assessed at bedside. She underwent foot surgery yesterday for debridement of her infected toe. She is tearful on my assessment today. Her pain medication was increased overnight to IV Dilaudid every 3 hours instead of every 4 hours. She is maintained on very high doses of Percocet at home. She currently is prescribed 8 tablets of Percocet daily at home. She reports that this has been her pain regimen over the past 5 years. I did explain that we arelikely not to achieve significant pain control given that she is on such high doses of opioids as an outpatient. We will need to attempt weaning back on the pain medication starting this evening. Exam Physical Exam Vital Signs: Temp Pulse Resp BP Pulse Ox O2 Del Method O2 Flow Rate 98.3 F 85 18 135/95 93 L Room Air 8 02/02/23 07:52 02/02/23 10:47 02/02/23 10:47 02/02/23 10:47 02/02/23 10:47 02/02/23 10:47 02/01/23 18:47 Narrative: Constitutional: Middle-aged WF, resting in bed in no acute distress HEENT: Moist mucous membranes, neck supple, somewhat poor dentition Cardiovascular: RRR, no M/R/G, normal S1 and S2 Respiratory: Clear to auscultation bilaterally, no wheezes, rales or rhonchi GI: Soft, obese abdomen, nontender to palpation throughout : Deferred Extremities: No clubbing, cyanosis noted. Dressing is covering the left foot. Not unwrapped during this visit. Neuro: AAOx3, no focal neuro deficits Skin: Third digit of left foot noted as above Psych: Calm, cooperative and conversant Objective Lab Results 02/02/23 05:00 02/02/23 05:00 Microbiology Results Microbiology 02/01/23 18:35 Toe,Left Second - Other Aerobic Culture - Preliminary No Growth 1 Day 02/01/23 18:35 Toe,Left Second - Other Anaerobic Culture - Preliminary No Anaerobes Isolated 1 Day 01/28/23 16:46 Blood - Right Antecubital Blood Culture - Preliminary No Growth 4 Days 01/28/23 16:30 Blood - Left Antecubital Blood Culture - Preliminary No Growth 4 Days Meds Allergies and Active Meds Allergies hydrocodone [From Vicodin] Allergy (Verified 01/28/23 14:35) Hallucinating Steroid Injection Allergy (Uncoded 01/28/23 14:35) Swelling Active Meds: Active Medications Generic Name Dose Route Start Last Admin Trade Name Freq PRN Reason Stop Dose Admin Acetaminophen 650 mg 01/28/23 18:40 Acetaminophen 325 Mg Tablet PO 01/28/24 18:39 Q6HR PRN Pain Scale 1 - 3 or fever Aspirin 81 mg 01/29/23 09:00 02/02/23 08:02 Aspirin 81 Mg Tablet. PO 01/29/24 08:59 81 mg QAM PAULINO Administration Atorvastatin Calcium 40 mg 01/29/23 09:00 02/02/23 08:02 Atorvastatin 40 Mg Tablet PO 01/29/24 08:59 40 mg QAM [facility] Administration Clopidogrel Bisulfate 75 mg 01/29/23 09:00 02/02/23 08:02 Clopidogrel Bisulfate 75 Mg Tablet PO 01/29/24 08:59 75 mg QAM [facility] Administration Collagenase 1 applic 01/29/23 11:00 02/02/23 08:04 Collagenase 250 Unit/Gm Oint 30 Gm Tube TOPICAL 01/29/24 10:59 1 applic DAILY [facility] Administration Cyclobenzaprine HCl 10 mg 02/01/23 17:02 02/01/23 21:22 Cyclobenzaprine 10 Mg Tablet PO 02/01/24 21:59 10 mg Q8HR PRN Administration Back spasm Dextrose 0 gm 01/28/23 18:40 01/29/23 05:35 Dextrose 50% In Water 25 Gm/50 Ml Syringe IV-PUSH 01/28/24 18:39 25 gm PRN PRN Administration Hypoglycemia Docusate Sodium 100 mg 01/28/23 21:00 02/02/23 08:06 Docusate 100 Mg Capsule PO 01/28/24 20:59 Not Given BID PAULINO Gabapentin 800 mg 01/28/23 22:00 02/02/23 08:02 Gabapentin 800 Mg Tablet PO 01/28/24 21:59 800 mg QID [facility] Administration Glucose 0 gm 01/28/23 18:40 Dextrose 40% Gel 15 Gm Tube PO 01/28/24 18:39 PRN PRN Hypoglycemia Heparin Sodium (Porcine) 500 unit 02/01/23 14:00 02/01/23 14:59 Heparin-Lock 500 Unit/5 Ml Syringe IV-PUSH 02/01/24 13:59 Not Given Q24H [facility] Hydralazine HCl 10 mg 01/28/23 18:40 Hydralazine 20 Mg/Ml Vial IV-PUSH 01/28/24 18:39 Q4H PRN Hypertension Hydromorphone HCl 1 mg 02/01/23 21:58 02/02/23 10:59 Hydromorphone 1 Mg/Ml Syringe IV-PUSH 1 mg Q3H PRN Administration Pain Scale 8 - 10 Lactated Ringer's 1,000 mls @ 75 mls/hr 01/28/23 18:45 02/02/23 05:46 Lactated Ringers IV 01/28/24 18:44 75 mls/hr .[id number] [facility] Administration Vancomycin HCl 1 gm in 250 mls @ 250 mls/hr 01/31/23 06:30 02/02/23 05:40 Vancomycin IV 250 mls/hr Q12H [facility] Administration Insulin Aspart 0 units 01/28/23 22:00 02/02/23 08:02 Insulin Aspart 300 Units/3 Ml Insuln.Pen SUBCUT 01/28/24 21:59 3 units TID.WM.HS [facility] Administration Protocol Levothyroxine Sodium 150 mcg 01/29/23 06:30 02/02/23 05:45 Levothyroxine 150 Mcg Tablet PO 01/29/24 06:29 150 mcg DAILY@0630 [facility] Administration Lidocaine HCl 0.1 ml 02/01/23 03:05 Lidocaine 1% 50 Ml Vial INTRADERMA PREOP PRN Venipuncture x 1 Dose Loperamide HCl 2 mg 02/01/23 13:57 02/02/23 08:05 Loperamide 2 Mg Capsule PO 02/01/24 13:56 2 mg Q2H PRN Administration Diarrhea Losartan Potassium 50 mg 01/29/23 09:00 02/02/23 08:02 Losartan 50 Mg Tablet PO 01/29/24 08:59 50 mg QAM [facility] Administration Metoprolol Succinate 50 mg 01/29/23 09:00 02/02/23 08:06 Metoprolol Succinate 50 Mg Tab.Er.24h PO 01/29/24 08:59 Not Given QAM [facility] Ondansetron HCl 4 mg 01/28/23 18:40 02/01/23 10:11 Ondansetron 4 Mg/2 Ml Vial IV-PUSH 01/28/24 18:39 4 mg Q8H PRN Administration Nausea And Vomiting Oxycodone/Acetaminophen 2 tab 01/28/23 18:46 02/02/23 05:47 Oxycodone/Acetaminophen 5-325 Mg Tablet PO 2 tab Q6H PRN Administration Pain Sodium Chloride 0 ml 01/28/23 14:35 02/02/23 07:58 Sodium Chloride 0.9 % 10 Ml Syringe IV-PUSH 01/28/24 14:34 10 ml PRN PRN Administration Flush Sodium Chloride 0 ml 02/01/23 03:05 Sodium Chloride 0.9 % 10 Ml Syringe IV-PUSH 02/01/24 03:04 PRN PRN Flush Sodium Chloride 0 ml 02/01/23 09:00 Sodium Chloride 0.9 % 10 Ml Syringe IV-PUSH 02/01/24 08:59 PRN PRN Flush Sodium Chloride 0 ml 02/01/23 14:00 02/02/23 05:49 Sodium Chloride 0.9 % 10 Ml Syringe IV-PUSH 02/01/24 13:59 Not Given QSHIFT PA[facility] Vancomycin HCl 1 each 02/02/23 09:09 Vancomycin - Pharmacy Dosing 1 Each Miscell IV ONCE PRN ZZ.Pharmacy Consult Protocol A&P - Hospitalist Assessment/Plan (1) Dry gangrene: (2) Diabetic foot infection: (3) PVD (peripheral vascular disease): Plan # L 3rd toe dry gangrene with surrounding cellulitis Surgical culture sent yesterday. Patient is tearful because her pain remains severe at this time. I suspect hyperalgesia in the setting of chronic opioid dependence. Patient does have leukocytosis today, which is likely reactive. Noosteomyelitis noted on x-ray or MRI. Did discuss case briefly with Dr. Sykes and will plan for IV vancomycin for now. - Follow-up surgical cultures - Continue IV vancomycin - podiatry, vascular surgery, and ID following- appreciate recs - S/p angiogram and stent placed in LLE 01/29 - holding anticoagulation - pain control - PT/OT when able Hyperalgesia Prescribed opioid dependence Patient experiencing significant pain after surgical intervention yesterday. She does have chronic prescribed opioid use for her chronic pain (8 tabs Percocet daily). She probably would be a good Suboxone candidate given her high doses of Percocet she takes with continued chronic pain regardless. -Continue IV Dilaudid and Percocet for now, wean IV Dilaudid later today -Patient needs to continue with pain management as an outpatient; may be a good Suboxone candidate after discharge # HTN/HLD/PVD - cont home meds # Hypothyroidism - cont home meds # DM2 - ISS while admitted. Resume home regimen at discharge # DVT: We will need to discuss with podiatry as to when patient can restart her blood thinner Disposition: Pt with progressing L 3rd toe gangrene with surrounding cellulitis s/p angiogram and stent placed on 01/29 and plan for surgical intervention on Thursday 02/01. ID, vascular surgery and podiatry following. Likely will continueIV vancomycin for 2 weeks. PICC line is in place. Surgical culture sent yesterday, can continue to follow-up for organism. [facility] Will need to wean patient's pain medication to a reasonable regimen before going home Documented By: Ryland Liu MD 3 [id number] Signed By: <Electronically signed by Ryland Liu MD> 02/02/23 1152 [facility] Work Phone: Progress note Author Zaid Mon [facility] February 02, 2023 12:26pm Note Date/Time February 02, 2023 12:27pm [facility] [address] [place] [address] Vascular Surgery Progress Note Signed Patient: Ema Neff MR#: [id number] : 1965 Acct:[id number] Age/Sex: 58 / F Adm Date: 3 Loc: Room: [address] [place] [address] Type: ADM IN Attending Dr: Ryland Liu MD Copies to: ~ Date of Service: 02/02/2023 Subjective Subjective Interval history: This patient was seen on rounds today. Her motor polarizer Dr. Umaña follows in [facility]. She was not really complaining of any discomfort although she does have pain in her left foot at times. Subjective: feels better Exam Physical Exam Vital Signs: Temp Pulse Resp BP Pulse Ox O2 Del Method O2 Flow Rate 98.3 F 85 18 135/95 93 L Room Air 8 02/02/23 07:52 02/02/23 10:47 02/02/23 10:47 02/02/23 10:47 02/02/23 10:47 02/02/23 10:47 02/01/23 18:47 Narrative: The left foot was examined and there is been no change since yesterday or the day before. She has no palpable pulse in the left foot. Const General: cooperative and comfortable Orientation: oriented x3 Objective Labs 02/02/23 05:00 02/02/23 05:00 Other Labs: Laboratory Results - last 24 hr 02/01/23 02/01/23 02/01/23 07:38 09:23 10:42 Corrected WBC Uncorrected WBC Count RBC Hgb Hct MCV MCH MCHC RDW Plt Count MPV Neut % (Auto) Lymph % (Auto) [place] % (Auto) Eos % (Auto) Baso % (Auto) Nucleat RBC Rel Count Neut # (Auto) Lymph # (Auto) [place] # (Auto) Eos # (Auto) Baso # (Auto) PHA Creatinine Clear Sodium Potassium Chloride Carbon Dioxide Anion Gap BUN Creatinine Est GFR (CKD-EPI) Glucose POC Glucose 114 148 111 POC Glucose Comment Calcium Vancomycin Peak Vancomycin Trough 02/01/23 02/01/23 02/01/23 16:35 18:50 20:45 Corrected WBC Uncorrected WBC Count RBC Hgb Hct MCV MCH MCHC RDW Plt Count MPV Neut % (Auto) Lymph % (Auto) [place] % (Auto) Eos % (Auto) Baso % (Auto) Nucleat RBC Rel Count Neut # (Auto) Lymph # (Auto) [place] # (Auto) Eos # (Auto) Baso # (Auto) PHA Creatinine Clear Sodium Potassium Chloride Carbon Dioxide Anion Gap BUN Creatinine Est GFR (CKD-EPI) Glucose POC Glucose 118 114 POC Glucose Comment Calcium Vancomycin Peak 25.9 Vancomycin Trough 02/01/23 02/02/23 02/02/23 21:19 05:00 05:00 Corrected WBC 13.0 H Uncorrected WBC Count 13.0 H RBC 4.44 Hgb 13.6 Hct 41.9 MCV 94.4 MCH 30.7 MCHC 32.5 RDW 13.9 Plt Count 262 MPV 7.3 Neut % (Auto) 70.4 Lymph % (Auto) 18.5 [place] % (Auto) 7.3 Eos % (Auto) 3.0 Baso % (Auto) 0.8 Nucleat RBC Rel Count 0.1 Neut # (Auto) 9.1 H Lymph # (Auto) 2.4 [place] # (Auto) 0.9 H Eos # (Auto) 0.4 Baso # (Auto) 0.1 PHA Creatinine Clear 79.39 Sodium 139 Potassium 3.6 Chloride 101 Carbon Dioxide 30.1 Anion Gap 11.5 BUN 8 Creatinine 0.98 Est GFR (CKD-EPI) > 60.0 Glucose 153 H POC Glucose 220 POC Glucose Comment Glu2: cleaned meter Calcium 8.7 Vancomycin Peak Vancomycin Trough 02/02/23 02/02/23 06:00 07:47 Corrected WBC Uncorrected WBC Count RBC Hgb Hct MCV MCH MCHC RDW Plt Count MPV Neut % (Auto) Lymph % (Auto) [place] % (Auto) Eos % (Auto) Baso % (Auto) Nucleat RBC Rel Count Neut # (Auto) Lymph # (Auto) [place] # (Auto) Eos # (Auto) Baso # (Auto) PHA Creatinine Clear Sodium Potassium Chloride Carbon Dioxide Anion Gap BUN Creatinine Est GFR (CKD-EPI) Glucose POC Glucose 150 POC Glucose Comment Glu2: cleaned meter Calcium Vancomycin Peak Vancomycin Trough 15.7 Microbiology Microbiology: Microbiology - Results from entire visit 02/01/23 18:35 Toe,Left Second - Other Aerobic Culture - Preliminary No Growth 1 Day 02/01/23 18:35 Toe,Left Second - Other Anaerobic Culture - Preliminary No Anaerobes Isolated 1 Day 01/28/23 16:46 Blood - Right Antecubital Blood Culture - Preliminary No Growth 4 Days 01/28/23 16:30 Blood - Left Antecubital Blood Culture - Preliminary No Growth 4 Days 01/29/23 15:55 Foot,Left - Ulcer Superficial Wound Culture - Final Corynebacterium striatum group A&P - Vascular Assessment/Plan (1) Diabetes mellitus with foot ulcer: The patient's left lower extremity bypass is occluded. There are no options left for open nor endovascular means to establish more blood supply to the left foot. This patient will succumb to a left below the knee amputation. The wounds will not heal. I explained this to her today. I suggest we have [facility] prosthetics and orthotics see the patient in anticipation of the need for BKA. The patient is not surprised to hear this plan. Although she does need some time to make peace with this plan. The surgery will not be done during this admission. We can schedule this as an outpatient. The patient wishes this to be done next month. I will honor this request as she is not currently septic or toxic from the left foot at this time. The patient has had this wound for about a year now. I will sign off and see her as an outpatient. She understands agrees the plan. Code(s): E11.621 - Type 2 diabetes mellitus with foot ulcer; L97.509 - Non-pressure chronic ulcer of other part of unspecified foot with unspecified severity Status: Acute Documented By: Zaid Mon MD 11/21/23 1223 Signed By: <Electronically signed by Zaid Mon MD> 02/02/23 1226 [facility] Work Phone: Progress note Author AUTUMN wallis [facility] February 02, 2023 12:41pm Note Date/Time February 02, 2023 12:41pm [facility] [address] [place] [address] Podiatry Progress Note Signed Patient: Ema Neff MR#: [id number] : 1965 Acct:[id number] Age/Sex: 58 / F Adm Date: 3 Loc: 4N Room: [address] [place] [address] Type: ADM IN Attending Dr: Ryland Liu MD Copies to: ~ Subjective Subjective Date of Service: Date of Service: 02/02/2023 Time of Service: 12:33 Narrative: Ms. Neff is a 58 year old female who is typically followed by my partner Dr. Mehta. She has recently undergone second left toe amputation and he continues to follow for wounds at the amputation site. Patient recently dropped her cell phone on the third left toe which caused a wound which subsequently turned blackover the past week. Patient has history of peripheral arterial disease with history of previous vascular intervention, diabetes with peripheral neuropathy and history of chronic ulcerations of both feet. She has history of chronic pain associated with her back which apparently has made pain control in the lower extremities difficult at times. The patient's peripheral arterial diseaseis also fairly severe and unfortunately no further intervention is available. Ischemia is likely contributing to her lower extremity pain as well. She deniesany fever or chills. Patient reports that pain has been under control with painmedication and she feels as though she is slowly continuing to improve relative to her pain upon admission. Exam Physical Exam Vital Signs: Temp Pulse Resp BP Pulse Ox O2 Del Method O2 Flow Rate 97.6 F 78 16 127/88 95 Room Air 8 02/02/23 12:00 02/02/23 12:00 02/02/23 12:00 02/02/23 12:00 02/02/23 12:00 02/02/23 12:00 02/01/23 18:47 Narrative: General: Patient is seen at bedside and is awake and wearing in no acute distress. Vascular: DP pulse trace and PT pulses 0/4 and temperature gradient is warm to cool.? No significant edema noted today. Dr. Mon has performed vascular intervention in the form of angiogram today she continues to demonstrate significant peripheral arterial disease in the left lower extremity. Unfortunately there are no further vascular intervention that could be performedto improve her circulation. Neurological: Absent vibratory sensation at the first MP joint bilaterally.? Decreased light touch sensation distal to the midfoot bilaterally Dermatological: Skin is thinning with diminished hair growth bilaterally.? No hyperkeratotic lesions are noted.? Patient has history of second toe amputationsbilaterally.? Ulcerations are noted as described below Musculoskeletal: +5/5 muscle strength bilaterally, mild hammertoe deformities noted bilaterally Podiatric: Ulcerated lesions are noted on the left foot. Dry gangrenous lesion on the distal lateral third left toe. This lesion measures 2.5 x 1.0 cm in diameter and is superficial. There does not appear to be any significant drainage. No sinus tract or undermining noted. Amputation site of the second left toe demonstrates an ulcer 1.2 x 1.2 cm in diameter and 0.2 cm in depth.? The base of this wound is mixed granular and fibrotic.? No sinus track or undermining noted here.? All wounds demonstrate local erythema surrounding the lesions. Lesions are also very tender to the touch and no debridement can be performed due to the sensitivity. Culture and sensitivity preliminary report pulmonary report indicates light growth of corynebacterium striatum. Intraoperative cultures are pending x-rays did not reveal obvious erosive changes suggestive of osteomyelitis. MRI study was completed and was somewhat compromised by motion artifact. No abscesses were noted and no bone marrow edema was noted within the underlying osseous structures of her wounds. No destructive changes noted. Assessment/Plan (1) Dry gangrene: Assessment/Problem Details: Completed examination. Discussed treatment options with the patient at length. Dr. Mon was present for my visit with the patient today. Her lower extremity bypass is occluded and there are unfortunately no other vascular interventions available for limb salvage. Due to the severity of her left lower extremity arterial disease, prolonged wound care without improvement and significant pain in the left lower extremity he has recommended BKA amputation left. We discussed the patient's condition at length together and she is considering proceeding with that in the very near future on an outpatient basis. At this point we will continue with local wound care on both the left and rightfoot wounds. We will still prescribe nifedipine gel for the patient to use as an outpatient and hopefully we will be able to complete healing of the wounds onthe right foot prior to her BKA amputation left. The patient will continue her current wound care regimen with Santyl and the addition of the nifedipine gel. She will follow-up in our office with Dr. Mohamud in the next week or 2. Advised patient to call if she has any problems or questions prior to that follow-up visit. Code(s): I96 - Gangrene, not elsewhere classified (2) Ulcer of left foot, limited to breakdown of skin: Code(s): L97.521 - Non-pressure chronic ulcer of other part of left foot limited to breakdown of skin (3) PAD (peripheral artery disease): Code(s): I73.9 - Peripheral vascular disease, unspecified (4) Type 2 diabetes mellitus with peripheral neuropathy: Code(s): E11.42 - Type 2 diabetes mellitus with diabetic polyneuropathy Documented By: Ayan Deluna DPM, AUTUMN [id number] Signed By: <Electronically signed by TERESA Deluna> 02/02/[address] [facility] Work Phone: Summary Purpose Family History No Family History Records Found Relationship Condition Age at Onset Recorded Date/T chela father Malignant neoplasm of urinary bladder Unk nown Malignant neoplasm of prostate Unknown Diabetes mellitus Unknown Not Specified Unknown History of blood clots Unknown Advance Directives No Advanced Directives Records Found Advance Directive Response Recorded Date/ Time Advance Directives No November 4:20pm Advance Directive Response Recorded Date/ Time Advance Directives No November 3:20pm Chief Complaint and Reason for Visit Chief Complaint E05.90 sent by - exposed bone LT toe sent by - exposed bone on LT toe exsposed bone on foot Exposed bone on foot Exposed bone on foot lt leg wound, hx surgery post surgery open wound Reason for Visit Diabetes mellitus wi th foot ulcer Diabetic foot infection Diabetic infection of left foot Hematoma Hypoalbuminemia due to protein-calorie malnutrition Malnutrition Osteomyelitis PAD (peripheral artery disease) Peripheral vascular occlusive disease Post-operative state Postoperative examination PVD (peripheral vascular disease) Surgical wound, non healing 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 Ulcer of right foot with fat layer exposed Diabetes mellitus HTN (hypertension), benign Morbid obesity due to excess calories Tobacco abuse Chronic ulcer of left foot due to diabetes mellitus Diabetic foot infection PAD (peripheral artery disease) Postoperative examination Diabetes mellitus HTN (hypertension), benign Infection Wound infection Diabetes mellitus HTN (hypertension), benign Morbid obesity due to excess calories Chief Complaint E05.90 sent by - exposed bone LT toe sent by - exposed bone on LT toe exsposed bone on foot Exposed bone on foot Exposed bone on foot lt leg wound, hx surgery post surgery open wound Wound infection Reason for Visit Diabetes mellitus wi th foot ulcer Diabetic foot infection Diabetic infection of left foot Hematoma Hypoalbuminemia due to protein-calorie malnutrition Malnutrition Osteomyelitis PAD (peripheral artery disease) Peripheral vascular occlusive disease Post-operative state Postoperative examination PVD (peripheral vascular disease) Surgical wound, non healing 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 Ulcer of right foot with fat layer exposed Diabetes mellitus HTN (hypertension), benign Morbid obesity due to excess calories Tobacco abuse Chronic ulcer of left foot due to diabetes mellitus Diabetic foot infection PAD (peripheral artery disease) Postoperative examination Diabetes mellitus HTN (hypertension), benign Infection Wound infection Diabetes mellitus HTN (hypertension), benign Morbid obesity due to excess calories Cellulitis Left leg cellulitis PVD (peripheral vascular disease) Wound infection Diabetes mellitus Chief Complaint E05.90 sent by - exposed bone LT toe sent by - exposed bone on LT toe exsposed bone on foot Exposed bone on foot Exposed bone on foot lt leg wound, hx surgery post surgery open wound Wound infection Diabetic Ulcers Bilateral Foot Reason for Visit Diabetes mellitus wi th foot ulcer Diabetic foot infection Diabetic infection of left foot Hematoma Hypoalbuminemia due to protein-calorie malnutrition Malnutrition Osteomyelitis PAD (peripheral artery disease) Peripheral vascular occlusive disease Post-operative state Postoperative examination PVD (peripheral vascular disease) Surgical wound, non healing 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 Ulcer of right foot with fat layer exposed Diabetes mellitus HTN (hypertension), benign Morbid obesity due to excess calories Tobacco abuse Chronic ulcer of left foot due to diabetes mellitus Diabetic foot infection PAD (peripheral artery disease) Postoperative examination Diabetes mellitus HTN (hypertension), benign Infection Wound infection Diabetes mellitus HTN (hypertension), benign Morbid obesity due to excess calories Cellulitis Left leg cellulitis PVD (peripheral vascular disease) Wound infection Diabetes mellitus Chief Complaint sent by Dr.Nida- li osed bone LT toe sent by - exposed bone on LT toe exsposed bone on foot Exposed bone on foot Exposed bone on foot lt leg wound, hx surgery post surgery open wound Wound infection Diabetic Ulcers Bilateral Foot Diabetic Ulcers Bilateral Foot Reason for Visit Diabetes mellitus wi th foot ulcer Diabetic foot infection Diabetic infection of left foot Hematoma Hypoalbuminemia due to protein-calorie malnutrition Malnutrition Osteomyelitis PAD (peripheral artery disease) Peripheral vascular occlusive disease Post-operative state Postoperative examination PVD (peripheral vascular disease) Surgical wound, non healing 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 Ulcer of right foot with fat layer exposed Diabetes mellitus HTN (hypertension), benign Morbid obesity due to excess calories Tobacco abuse Chronic ulcer of left foot due to diabetes mellitus Diabetic foot infection PAD (peripheral artery disease) Postoperative examination Diabetes mellitus HTN (hypertension), benign Infection Wound infection Diabetes mellitus HTN (hypertension), benign Morbid obesity due to excess calories Cellulitis Left leg cellulitis PVD (peripheral vascular disease) Wound infection Diabetes mellitus Chief Complaint sent by Dr.Nida- li osed bone LT toe sent by - exposed bone on LT toe exsposed bone on foot Exposed bone on foot Exposed bone on foot lt leg wound, hx surgery post surgery open wound Wound infection Diabetic Ulcers Bilateral Foot Diabetic Ulcers Bilateral Foot Reason for Visit Diabetes mellitus wi foot ulcer Diabetic foot infection Diabetic infection of left foot Hematoma Hypoalbuminemia due to protein-calorie malnutrition Malnutrition Osteomyelitis PAD (peripheral artery disease) Peripheral vascular occlusive disease Post-operative state Postoperative examination PVD (peripheral vascular disease) Surgical wound, non healing 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 Ulcer of right foot with fat layer exposed Diabetes mellitus HTN (hypertension), benign Morbid obesity due to excess calories Tobacco abuse Chronic ulcer of left foot due to diabetes mellitus Diabetic foot infection PAD (peripheral artery disease) Postoperative examination Diabetes mellitus HTN (hypertension), benign Infection Wound infection Diabetes mellitus HTN (hypertension), benign Morbid obesity due to excess calories Cellulitis Left leg cellulitis PVD (peripheral vascular disease) Wound infection Diabetes mellitus Cellulitis Diabetic foot ulcer Foot pain, bilateral Status post amputation of toe of left foot Status post amputation of toe of right foot Chief Complaint exsposed bone on tyron t Exposed bone on foot Exposed bone on foot lt leg wound, hx surgery post surgery open wound Wound infection Diabetic Ulcers Bilateral Foot Osteomyelitis Left Foot Diabetic Ulcers Bilateral Foot r09.89 left foot pain Reason for Visit Diabetes mellitus wi th foot ulcer Diabetic foot infection Diabetic infection of left foot Hematoma Hypoalbuminemia due to protein-calorie malnutrition Malnutrition Osteomyelitis PAD (peripheral artery disease) Peripheral vascular occlusive disease Post-operative state Postoperative examination PVD (peripheral vascular disease) Surgical wound, non healing 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 Ulcer of right foot with fat layer exposed Diabetes mellitus HTN (hypertension), benign Morbid obesity due to excess calories Tobacco abuse Chronic ulcer of left foot due to diabetes mellitus Diabetic foot infection PAD (peripheral artery disease) Postoperative examination Diabetes mellitus HTN (hypertension), benign Infection Wound infection Diabetes mellitus HTN (hypertension), benign Morbid obesity due to excess calories Cellulitis Left leg cellulitis PVD (peripheral vascular disease) Wound infection Diabetes mellitus Cellulitis Diabetic foot ulcer Foot pain, bilateral Status post amputation of toe of left foot Status post amputation of toe of right foot Diabetic foot ulcer Diabetic infection of left foot Left leg cellulitis PAD (peripheral artery disease) Status post amputation of toe of left foot Status post amputation of toe of right foot Type 2 diabetes mellitus with peripheral neuropathy Ulcer of left foot with fat layer exposed Wound infection Diabetes mellitus Chief Complaint Exposed bone on foot lt leg wound, hx surgery post surgery open wound Wound infection Diabetic Ulcers Bilateral Foot Osteomyelitis Left Foot Diabetic Ulcers Bilateral Foot r09.89 left foot pain left foot abcess Pain in left toe(s);Ulcer of left foot with necros foot ulcer;foot pain Reason for Visit Chronic ulcer of lef t foot due to diabetes mellitus Diabetic foot infection PAD (peripheral artery disease) Postoperative examination Diabetes mellitus HTN (hypertension), benign Infection Wound infection Diabetes mellitus HTN (hypertension), benign Morbid obesity due to excess calories Cellulitis Left leg cellulitis PVD (peripheral vascular disease) Wound infection Diabetes mellitus Cellulitis Diabetic foot ulcer Foot pain, bilateral Status post amputation of toe of left foot Status post amputation of toe of right foot Diabetic foot ulcer Diabetic infection of left foot Left leg cellulitis PAD (peripheral artery disease) Status post amputation of toe of left foot Status post amputation of toe of right foot Type 2 diabetes mellitus with peripheral neuropathy Ulcer of left foot with fat layer exposed Wound infection Diabetes mellitus Foot pain, bilateral Type 2 diabetes mellitus with peripheral neuropathy Ulcer of left foot with fat layer exposed Diabetes mellitus HTN (hypertension), benign Morbid obesity due to excess calories Chief Complaint post surgery open wo und Wound infection Diabetic Ulcers Bilateral Foot Osteomyelitis Left Foot Diabetic Ulcers Bilateral Foot r09.89 left foot pain left foot abcess M79.675 L97.523 foot ulcer;foot pain E89.0;E03.9 Reason for Visit Infection Wound infection Diabetes mellitus HTN (hypertension), benign Morbid obesity due to excess calories Cellulitis Left leg cellulitis PVD (peripheral vascular disease) Wound infection Diabetes mellitus Cellulitis Diabetic foot ulcer Foot pain, bilateral Status post amputation of toe of left foot Status post amputation of toe of right foot Diabetic foot ulcer Diabetic infection of left foot Left leg cellulitis PAD (peripheral artery disease) Status post amputation of toe of left foot Status post amputation of toe of right foot Type 2 diabetes mellitus with peripheral neuropathy Ulcer of left foot with fat layer exposed Wound infection Diabetes mellitus Cellulitis Counseling regarding advanced care planning and goals of care Diabetic infection of left foot Foot pain, bilateral Status post amputation of toe of left foot Status post amputation of toe of right foot Type 2 diabetes mellitus with peripheral neuropathy Ulcer of left foot with fat layer exposed Diabetes mellitus HTN (hypertension), benign Morbid obesity due to excess calories Chief Complaint left foot pain left foot abcess M79.675 L97.523 foot ulcer;foot pain E89.0;E03.9 Z01.818 Reason for Visit Diabetic foot ulcer Diabetic infection of left foot Left leg cellulitis PAD (peripheral artery disease) Status post amputation of toe of left foot Status post amputation of toe of right foot Type 2 diabetes mellitus with peripheral neuropathy Ulcer of left foot with fat layer exposed Wound infection Diabetes mellitus Cellulitis Counseling regarding advanced care planning and goals of care Diabetic infection of left foot Foot pain, bilateral Status post amputation of toe of left foot Status post amputation of toe of right foot Type 2 diabetes mellitus with peripheral neuropathy Ulcer of left foot with fat layer exposed Diabetes mellitus HTN (hypertension), benign Morbid obesity due to excess calories Chief Complaint left foot pain left foot abcess M79.675 L97.523 foot ulcer;foot pain E89.0;E03.9 Z01.818 Diabetes Malitis w/ Foot Ulcer, Left Foot Ulcer w/ Reason for Visit Diabetic foot ulcer Diabetic infection of left foot Left leg cellulitis PAD (peripheral artery disease) Status post amputation of toe of left foot Status post amputation of toe of right foot Type 2 diabetes mellitus with peripheral neuropathy Ulcer of left foot with fat layer exposed Wound infection Diabetes mellitus Cellulitis Counseling regarding advanced care planning and goals of care Diabetic infection of left foot Foot pain, bilateral Status post amputation of toe of left foot Status post amputation of toe of right foot Type 2 diabetes mellitus with peripheral neuropathy Ulcer of left foot with fat layer exposed Diabetes mellitus HTN (hypertension), benign Morbid obesity due to excess calories Chief Complaint E89.0;E03.9 Z01.818 Diabetes Malitis w/ Foot Ulcer, Left Foot Ulcer w/ i70.213 Chief Complaint i70.213 Abscess of toe of left foot Z01.818 Chief Complaint i70.213 Abscess of toe of left foot Z01.818 Status Post Amputation, Diabetes, Bilateral Foot P Chief Complaint I70.213 L24.A9 Peripheral Vascular Disease Peripheral Vascular Disease Chief Complaint I70.213 L24.A9 Peripheral Vascular Disease Peripheral Vascular Disease Z01.818 N18.2 E11.42 Chief Complaint I70.213 L24.A9 Peripheral Vascular Disease Peripheral Vascular Disease Z01.818 N18.2 E11.42 type 2 diabetes with foot ulcer, pain right foot Chief Complaint L24.A9 Peripheral Vascular Disease Peripheral Vascular Disease L03.115 Z01.818 N18.2 E11.42 type 2 diabetes with foot ulcer, pain right foot left leg swelling Chief Complaint L03.115 Z01.818 N18.2 E11.42 type 2 diabetes with foot ulcer, pain right foot left leg swelling i70.213 Chief Complaint left leg swelling lt foot injury Reason for Visit Diabetes mellitus wi th foot ulcer Diabetic foot infection Dry gangrene Osteomyelitis PVD (peripheral vascular disease) Chief Complaint left leg swelling lt foot injury Reason for Visit Cellulitis Diabetes mellitus with foot ulcer Diabetic foot infection Diabetic infection of left foot Dry gangrene Osteomyelitis PAD (peripheral artery disease) Peripheral vascular occlusive disease PVD (peripheral vascular disease) Surgical wound, non healing Type 2 diabetes mellitus with peripheral neuropathy Ulcer of left foot, limited to breakdown of skin Chief Complaint lt foot injury Leukocytosis E11.621 Reason for Visit Cellulitis Diabetes mellitus with foot ulcer Diabetic foot infection Diabetic infection of left foot Dry gangrene Osteomyelitis PAD (peripheral artery disease) Peripheral vascular occlusive disease PVD (peripheral vascular disease) Surgical wound, non healing Type 2 diabetes mellitus with peripheral neuropathy Ulcer of left foot, limited to breakdown of skin Chief Complaint lt foot injury Leukocytosis E11.621 surgical wound Reason for Visit Cellulitis Diabetes mellitus with foot ulcer Diabetic foot infection Diabetic infection of left foot Dry gangrene Osteomyelitis PAD (peripheral artery disease) Peripheral vascular occlusive disease PVD (peripheral vascular disease) Surgical wound, non healing Type 2 diabetes mellitus with peripheral neuropathy Ulcer of left foot, limited to breakdown of skin Neutrophilia Polycythemia Medications Administered Section Inactive Administered Medications - up to 3 most recent administrations Medication Order MAR Action Action Date Dose Rate Site bevacizumab intravitreal syringe 2.5 mg/0.1 mL 1.25 mg, ONE TIME INJECTION, 1 dose, Starting on Wed12/04/22 at 1335, Until Wed12/04/22 at 1335 Given 12/04/2022 1:35 PM EDT 1.25 mg Right Active Administered Medications - up to 3 most recent administrations Medication Order MAR Action Action Date Dose Rate Site proparacaine 0.5 % 1 Drop (ALCAINE) 1 Drop, RIGHT EYE, DIRECTED, Starting on Wed01/01/23 at 1300, Until Wed01/02/23 at 0059, Administer for pneumo tonometry, tonopen tonometry, or pachymetry. In the event of a proparacaine shortage, administer tetracaine 0.5% ophthalmic drops 1 drop in the right eye as directed for pneumo tonometry, tonopen tonometry, or pachymetry Given 01/01/2023 1:00 PM EDT 1 Drop Inactive Administered Medications - up to 3 most recent administrations Medication Order MAR Action Action Date Dose Rate Site bevacizumab intravitreal syringe 2.5 mg/0.1 mL 1.25 mg, ONCE, 1 dose, Starting on Wed01/01/23 at 1320, Until Wed01/01/23 at 1320 Given 01/01/2023 1:20 PM EDT 1.25 mg Right Additional Source Comments INFORMATION SOURCE (unrecogn ized section and content) DATE CREATED AUTHOR 03/17/2019 [facility] DATE CREATED AUTHOR AUTHOR'S ORGANIZ ATION 2022 [facility] dical Specialist DATE CREATED AUTHOR AUTHOR'S ORGANIZ ATION 01/03/2023 [facility] DATE CREATED AUTHOR AUTHOR'S ORGANIZ ATION 02/22/2023 [facility] DATE CREATED AUTHOR AUTHOR'S ORGANIZ ATION 02/26/2023 [facility] dical Specialists EPIC Source Comments (unrecognize d section and content) In the event this informatio n is protected by the Federal Confidentiality of Alcohol and Drug Abuse Patient Records regulations: The Federal rules restrict any use of the information to criminally investigate or prosecute any alcohol or drug abuse patient.[facility] the event this information is protected by the Federal Confidentiality of Alcohol and Drug Abuse Patient Records regulations: The Federal rules restrict any use of the information to criminally investigate or prosecute any alcohol or drug abuse patient.[facility] the event this information is protected by the Federal Confidentiality of Alcohol and Drug Abuse Patient Records regulations: The Federal rules restrict any use of the information to criminally investigate or prosecute any alcohol or drug abuse patient.[facility] Reason for Visit (unrecogniz ed section and content) Reason Comments Central retinal vein occlusion with macu lar edema RIGHT EYE Specialty Diagnoses / Procedures Referred By Contac t Referred To Contact Ophthalmology / OPHTHALMOLOGY Diagnoses Central retinal vein occlusion, right eye, with macular edema Return in about 1 month (around 10/31/2022). Procedures [place] BEVACIZUMAB INJECTION INJECTION Antwon Goetz MD [address] [place] [address] [place] [address] [place] [address] Referral ID Status Reason Start Date Expiration Date V isits Requested Visits Authorized [id number] Authorized 11/03/2022 11/04/2023 99 99 Reason Comments Pain Reason Comments Central Retinal Vein Occlusion Follow Up Care Teams (unrecognized sec tion and content) Team Status: Active Member Role Status Katelyn Thrasher MD Primary Care Provider Active Team Status: Inactive Member Role Status Katelyn Thrasher MD Primary Care Provider Active Kanu Mehta DPM Attending Provider Active Team Status: Active Member Role Status Katelyn Thrasher MD Primary Care Provider, Referring Prov ider Active Misti Toro APRN Attending Provider Acti ve Team Status: Inactive Member Role Status Katelyn Thrasher MD Primary Care Provider Active Chino Peraza , DO Emergency Provider Active Cas[place]iv[place] , DO Admit Provider Active Rolando Sykes MD Other Provider Active Kanu Mehta DPM Other Provider Active Ziad Mon MD Other Provider Active Ryland Liu MD Attending Provider Active Team Status: Inactive Member Role Status Katelyn Thrasher MD Primary Care Provider, Attending Prov ider Active Team Status: Active Member Role Status Katelyn Thrasher MD Primary Care Provider, Attending Prov ider Active Team Status: Inactive Member Role Status Katelyn Thrasher MD Primary Care Provider Active Robles Owen DO Emergency Provider Active Team Status: Inactive Member Role Status Katelyn Thrasher MD Primary Care Provider Active Zaid Mon MD Attending Provider Active Team Status: Inactive Member Role Status Katelyn Thrasher MD Primary Care Provider Active Ankur Mahan DO Emergency Provider Active Elise Marie MD Admit Provider Active LOVE KerrM Other Provider Active Karsten Vega MD Other Provider Active Adithya Rm DO Attending Provider Active Team Status: Inactive Member Role Status Katelyn Thrasher MD Primary Care Provider Active Chino Peraza , DO Emergency Provider Active Team Status: Inactive Member Role Status Katelyn Thrasher MD Primary Care Provider Active Robles Owen DO Emergency Provider Active Raj Oscar MD Admit Provider Active Zaid Mon MD Other Provider Active Dean Rodriguez MD Attending Provider Active Team Status: Inactive Member Role Status Katelyn Thrasher MD Primary Care Provider Active Zaid Mon MD Admit Provider, Attending Pr ovider Active Alannah Lin RN Other Provider Active Gale Gearheart , RN Other Provider Active Maryse Chapin LUPE Other Provider Active Mariela Yang , LUPE Other Provider Active Shiloh Haddad , LUPE Other Provider Active Lily Penn , LUPE Other Provider Active Malgorzata Kaplan MD Other Provider Active Adria Beckett MD Other Provider Active Kate Duran SIGNAL WIRER Other Provider Active Moises Venegas , DO Other Provider Active Trung Cruz MD Other Provider Active Adithya Rm , DO Other Provider Active Dean Rodriguez MD Other Provider Active Elise Marie MD Other Provider Active Valerie Mas , ANP-BC Other Provider Active Fredy Patricia MD Other Provider Active Aba Griffith MD Other Provider Active Yue Mendez MD Other Provider Active Hafsa Ivy MD Other Provider Active Rafat Duron MD Other Provider Active Juliane Campbell MD Other Provider Active Fernandez Ramirez MD Other Provider Active Sanna Martinez , HAND BENDER-C Other Provider Active Ryland Liu MD Other Provider Active Maximo Patel MD Other Provider Active Steph Fu MD Other Provider Active Clyde Luna MD Other Provider Active Hailee Berg , DO Other Provider Active Raj Oscar MD Other Provider Active Eugene Mcdonough , DO Other Provider Active Lashae Rodriguez SIGNAL WIRER Other Provider Active Calvin Underwood , DO Other Provider Active Rodney Marti MD Other Provider Active Zakiya Hay , LUPE Other Provider Active Team Status: Inactive Member Role Status Katelyn Thrasher MD Primary Care Provider Active Yung David , Attending Provider Active Team Status: Inactive Member Role Status Katelyn Thrasher MD Primary Care Provider Active Zaid Fan , Emergency Provider Active Rodney Marti MD Admit Provider, Attending Provi devin Active Rolando Sykes MD Other Provider Active Sravani Dsouza LPN Other Provider Active Alma Sanchez LPN Other Provider Active Karsten Vega MD Other Provider Active Alejandra Middleton , HAND BENDER-C Other Provider Active Sai Obregon MD Other Provider Active Zaid Mon MD Other Provider Active Team Status: Active Member Role Status Katelyn Thrasher MD Primary Care Provider Active Kanu R. Kubitz , DPM Admit Provider, Attending Provi devin Active Alannah Lin RN Other Provider Active Gale Wesley RN Other Provider Active Maryse Chapin RN Other Provider Active Mariela Yang , RN Other Provider Active Shiloh Haddad RN Other Provider Active Lily Penn , RN Other Provider Active Malgorzata Kaplan MD Other Provider Active Adria Beckett MD Other Provider Active Kate Duran , SIGNAL WIRER Other Provider Active Moises Venegas , DO Other Provider Active Trung Cruz MD Other Provider Active Adithya Rm , DO Other Provider Active Dean Rodriguez MD Other Provider Active Elise Marie MD Other Provider Active Valerie Mas , ANP-BC Other Provider Active Fredy Patricia MD Other Provider Active Aba Griffith MD Other Provider Active Yue Mendez MD Other Provider Active Hafsa Ivy MD Other Provider Active Rafat Duron MD Other Provider Active Juliane Campbell MD Other Provider Active Fernandez Ramirez MD Other Provider Active Sanna Martinez , HAND BENDER-C Other Provider Active Ryland Liu MD Other Provider Active Maximo Patel MD Other Provider Active Steph Fu MD Other Provider Active Clyde Luna MD Other Provider Active Hailee Berg , DO Other Provider Active Raj Oscar MD Other Provider Active Eugene Mcdonough , DO Other Provider Active Zackary Rivera , DO Other Provider Active Lashae Rodriguez SIGNAL WIRER Other Provider Active Calvin Underwood , DO Other Provider Active Rodney Marti MD Other Provider Active Zakiya Hay RN Other Provider Active Team Status: Inactive Member Role Status Dates Jarvis Thrasher MD Primary Care Provider Active Kanu Mehta , DPM Admit Provider, Attending Provi devin Active Alannah Lin RN Other Provider Active Gale Wesley RN Other Provider Active Maryse Chapin RN Other Provider Active Mariela Yang , LUPE Other Provider Active Shiloh Haddad RN Other Provider Active Lily Penn RN Other Provider Active Malgorzata Kaplan MD Other Provider Active Adria Beckett MD Other Provider Active Kate Duran , SIGNAL WIRER Other Provider Active Moises Venegas , DO Other Provider Active Trung Cruz MD Other Provider Active Adithya Rm , DO Other Provider Active Dean Rodriguez MD Other Provider Active Elise Marie MD Other Provider Active Valerie Mas , ANP-BC Other Provider Active Fredy Patricia MD Other Provider Active Aba Griffith MD Other Provider Active Yue Mendez MD Other Provider Active Hafsa Ivy MD Other Provider Active Rafat Duron MD Other Provider Active Juliane Campbell MD Other Provider Active Fernandez Ramirez MD Other Provider Active Sanna Martinez , HAND BENDER-C Other Provider Active Ryland Liu MD Other Provider Active Maximo Patel MD Other Provider Active Steph Fu MD Other Provider Active Clyde Luna MD Other Provider Active Hailee Berg , DO Other Provider Active Raj Oscar MD Other Provider Active Eugene Mcdonough , DO Other Provider Active Zackary Rivera , DO Other Provider Active Lashae Rodriguez , SIGNAL WIRER Other Provider Active Calvin Underwood , DO Other Provider Active Rodney Marti MD Other Provider Active Zakiya Hay , LUPE Other Provider Active Lynnette Arias HAND BENDER Other Provider Active Diane Ramirez , HAND BENDER-C Other Provider Active Javed Snyder MD Other Provider Active Rafat Sanders MD Other Provider Active Team Status: Inactive Member Role Status Katelyn Thrasher MD Primary Care Provider Active Robert Larsen , DO Emergency Provider Active Hailee Berg , DO Admit Provider Active Rolando Sykes MD Other Provider Active Kanu Mehta DPM Other Provider Active Zaid Mon MD Other Provider Active Fredy Patricia MD Attending Provider Active Team Status: Active Member Role Status Katelyn Thrasher MD Primary Care Provider Active LOVE FerrellM Admit Provider, Attending Provi devin Active Zaid Mon MD Other Provider Active Jose Owen , DO Other Provider Active Alannah Lin , LUPE Other Provider Active Gale Wesley , RN Other Provider Active Maryse Chapin , RN Other Provider Active Mariela Yang , RN Other Provider Active Shiloh Haddad RN Other Provider Active Lily Penn RN Other Provider Active Malgorzata Kaplan MD Other Provider Active Adria Beckett MD Other Provider Active Kate Duran , SIGNAL WIRER Other Provider Active Moises Venegas , DO Other Provider Active Trung Cruz MD Other Provider Active Adithya Rm , DO Other Provider Active Dean Rodriguez MD Other Provider Active Elise Marie MD Other Provider Active Valerie Mas , ANP-BC Other Provider Active Fredy Patricia MD Other Provider Active Aba Griffith MD Other Provider Active Yue Mendez MD Other Provider Active Hafsa Ivy MD Other Provider Active Rolando Vicente , DO Other Provider Active Rafat Duron MD Other Provider Active Juliane Campbell MD Other Provider Active Fernandez Ramirez MD Other Provider Active Sanna Martinez , HAND BENDER-C Other Provider Active Ryland Liu MD Other Provider Active Maximo Patel MD Other Provider Active Steph Fu MD Other Provider Active Clyde Luna MD Other Provider Active Hailee Berg , DO Other Provider Active Raj Oscar MD Other Provider Active Eugene Mcdonough , DO Other Provider Active Zackary Rivera , DO Other Provider Active Lashae Rodriguez APRN Other Provider Active Calvin Underwood , DO Other Provider Active Rodney Marti MD Other Provider Active Zakiya Hay , LUPE Other Provider Active Team Status: Inactive Member Role Status Katelyn Thrasher MD Primary Care Provider Active Ankur Mahan , DO Emergency Provider Active Team Status: Inactive Member Role Status Katelyn Thrasher MD Primary Care Provider Active Kanu Mehta DPM Admit Provider, Attending Provi devin Active Alannah Lin , RN Other Provider Active Gale Wesley , RN Other Provider Active Maryse Chapin , RN Other Provider Active Mariela Yang , RN Other Provider Active Shiloh Haddad RN Other Provider Active Lily Penn RN Other Provider Active Malgorzata Kaplan MD Other Provider Active Adria Beckett MD Other Provider Active Kate Duran , SIGNAL WIRER Other Provider Active Moises Venegas , DO Other Provider Active Trung Cruz MD Other Provider Active Adithya Rm , DO Other Provider Active Dean Rodriguez MD Other Provider Active Elise Marie MD Other Provider Active Valerie aMs , ANP-BC Other Provider Active Fredy Patricia MD Other Provider Active Aba Griffith MD Other Provider Active Yue Mendez MD Other Provider Active Hafsa Ivy MD Other Provider Active Rolando Vicente , DO Other Provider Active Rafat Duron MD Other Provider Active Juliane Campbell MD Other Provider Active Fernandez Ramirez MD Other Provider Active Sanna Martinez , HAND BENDER-C Other Provider Active Ryland Liu MD Other Provider Active Maximo Patel MD Other Provider Active Steph Fu MD Other Provider Active Clyde Luna MD Other Provider Active Hailee Berg , DO Other Provider Active Raj Oscar MD Other Provider Active Eugene Mcdonough , DO Other Provider Active Zackary Rivera , DO Other Provider Active Lashae Rodriguez APRN Other Provider Active Calvin Underwood , DO Other Provider Active Rodney Marti MD Other Provider Active Zakiya Hay RN Other Provider Active Jose Owen , DO Other Provider Active Zaid Mon MD Other Provider Active Team Status: Inactive Member Role Status Katelyn Mehta DPM Attending Provider Active PHYSICIAN NO FAMILY Primary Care Provider Active Team Status: Inactive Member Role Status Katelyn Mon MD Attending Provider Active PHYSICIAN NO FAMILY Primary Care Provider Active Team Status: Inactive Member Role Status Katelyn Mehta DPM Attending Provider Active Team Status: Inactive Member Role Status Katelyn Mehta DPM Attending Provider Active Jarvis Thrasher MD Primary Care Provider Active Team Status: Inactive Member Role Status Katelyn Mehta DPM Attending Provider Active NON STAFF Primary Care Provider Active Team Status: Inactive Member Role Status Katelyn Thrasher MD Primary Care Provider Active Montana Martínez APRN Emergency Provider Active Team Status: Inactive Member Role Status Katelyn Thrasher MD Primary Care Provider Active Alejandra Middleton NP-C Attending Provider Active Team Status: Active Member Role Status Katelyn Thrasher MD Primary Care Provider Active Chino Peraza , DO Emergency Provider Active Casa Givens , DO Admit Provider, Attending Provid er Active Goals (unrecognized section and content) Goals may be documented in a n alternate section FOR RECORDS PERTAINING TO PATIENTS WHO ARE OR HAVE BEEN ENROLLED IN A CHEMICAL DEPENDENCY/SUBSTANCEABUSE PROGRAM, SOME INFORMATION MAY BE OMITTED. This clinical summary was aggregated from multiple sources. Caution should be exercised in using it in the provision of clinical care. This summary normalizes information from multiple sources, and as a consequence, information in this document may materially change the coding, format and clinical context of patient data. In addition, data may be omitted in some cases. CLINICAL DECISIONS SHOULD BE BASED ON THE PRIMARY CLINICAL RECORDS. [facility]. provides no warranty or guarantee of the accuracy or completeness of information in this document.
== END 2023-02-11 11:37 | disposition home or self-care (01) ==
LOC: LAB 11:36
PROVIDERS: PCP Internal Medicine; Visit Provider Internal Medicine
DX: E11.621 Type 2 diabetes mellitus with foot ulcer (principal)
CPT/HCPCS: 87493

== ENCOUNTER 2023-02-12 16:15 | Outpatient (REF) | payer MEDICARE, SELFPAY ==
[2023-02-12 16:43] LABS: White Blood Count 10.1 10^3/uL (4.0-11.0)
[2023-02-12 17:02] LABS: Anion Gap 12.3; BUN Creatinine Ratio 9.8; Calcium 8.1 mg/dL (8.5-10.1); Carbon Dioxide 29.3 mmol/L (21.0-32.0); Chloride 105 mmol/L (98-107); Estimated GFR (African America >60 (>=60); Estimated GFR (Non-African Ame 50 (>=60); Glucose 62 mg/dL (74-106); Potassium 4.6 mmol/L (3.5-5.1); Sodium 142 mmol/L (136-145); Vancomycin Random 11.7 ug/mL
== END 2023-02-12 16:16 | disposition home or self-care (01) ==
LOC: LAB 16:15
PROVIDERS: PCP Internal Medicine; Visit Provider Internal Medicine Infectious Disease
DX: L97.529 Non-pressure chronic ulcer of other part of left foot with unspecified severity (principal); L08.9 Local infection of the skin and subcutaneous tissue, unspecified; B96.89 Other specified bacterial agents as the cause of diseases classified elsewhere; L03.90 Cellulitis, unspecified; I73.9 Peripheral vascular disease, unspecified
CPT/HCPCS: 36415; 80048; 80202; 85048

== ENCOUNTER 2023-02-15 16:01 | Outpatient (OUT) | payer MEDICARE, SELFPAY ==
[2023-02-15 16:52] LABS: Anion Gap 10.6; BUN Creatinine Ratio 15.4; Calcium 8.1 mg/dL (8.5-10.1); Carbon Dioxide 30.7 mmol/L (21.0-32.0); Chloride 103 mmol/L (98-107); Estimated GFR (African America 58 (>=60); Estimated GFR (Non-African Ame 48 (>=60); Glucose 103 mg/dL (74-106); Potassium 4.3 mmol/L (3.5-5.1); Sodium 140 mmol/L (136-145); Vancomycin Random 1.5 ug/mL
== END 2023-02-15 16:02 | disposition home or self-care (01) ==
LOC: LAB 16:04
PROVIDERS: PCP Internal Medicine Infectious Disease; Visit Provider Internal Medicine Infectious Disease
DX: L97.529 Non-pressure chronic ulcer of other part of left foot with unspecified severity (principal); L08.9 Local infection of the skin and subcutaneous tissue, unspecified; B96.89 Other specified bacterial agents as the cause of diseases classified elsewhere; L03.90 Cellulitis, unspecified; I73.9 Peripheral vascular disease, unspecified
CPT/HCPCS: 36415; 80048; 80202; 85048

== ENCOUNTER 2025-01-17 12:11 | Outpatient (OUT) | payer MEDICARE, SELFPAY ==
--- OUTSIDE RECORDS SUMMARY | 2025-01-17 12:18 | XMS_ITS | Encounter Summary ---
Author Organization [facility] Address [address] [place] [address] Support Name Relationship Address Phone Louie Ayala Unrelated friend [address] [place] [address] Ayan Tamayo Personal Relationship Unknown [phone] Care Team Providers Care Cement Mason Helper Name Role Phone Carl Thrasher MD Primary Care Provider [phone] Kanu Torres DPM Unavailable [phone] Zaid Mon MD Unavailable [phone] Reason for Visit * ReasonCommentsMed Refill Encounter Details DateTypeDepartmentCare Team (Latest Contact Info)Nhkrsmrtgve66/05/2025Refill [facility] Internal Medicine [address] [facility] [address] [place] [phone] Carl Thrasher MD [address] [facility] [address] [place] [address] Type 2 diabetes mellitus with diabetic polyneuropathy, without long-term current use of insulin (HCC); Morbid obesity ([facility]-HCC) Social History Tobacco UseTypesPacks/DayYears UsedDateSmoking Tobacco: [id number] 03/15/1985 - 2Smokeless Tobacco: NeverAlcohol UseStandard Drinks/Week CommentsNever0 (1 standard drink = 0.6 oz pure alcohol)caffeine: 2-3 cups per day coffeePHQ-2AnswerDate RecordedPatient Health Questionnaire-2 Score0 4CommentsUnknownSex and Gender InformationValueDate RecordedSex Assigned at UgxdlLvbyxr03/23/2023 4:09 PM EDTLegal CvvPvekuf48/15/2023 7:14 PM EDTGender HkottffyEnrdqa72/23/2023 4:09 PM EDTSexual OrientationNot on file OccupationIndustryJob Start DateJob End DatedisabledNot on fileNot on fileNot on filedocumented as of this encounter Miscellaneous Notes * Telephone Encounter - Riki Velarde MA - 01/17/2025 8:40 AM EST Rx sent documented in this encounter Plan of Treatment DateTypeDepartmentCare Team (Latest Contact Info)Xlvmqqaabmc44/05/2025 2:30 PM ESTOffice Visit [facility] [address] [place] [phone] Type 2 diabetes mellitus with diabetic polyneuropathy, without long-term current use of insulin (HCC) (Primary Dx); Essential hypertension; Metabolic dysfunction-associated steatotic liver disease (MASLD); Chronic insomnia; Polyneuropathy associated with underlying disease (HCC); Spinal stenosis of lumbar region without neurogenic claudication; Morbid obesity (CMS-HCC); BMI 40.0-44.9, adult (CMS-HCC)documented as of this encounter Visit Diagnoses Diagnosis Type 2 diabetes mellitus with diabetic polyneuropathy, without long-term current use of insulin (HCC)- Primary Essential hypertension Unspecified essential hypertension Metabolic dysfunction-associated steatotic liver disease (MASLD) Chronic insomnia Insomnia, unspecified Polyneuropathy associated with underlying disease (HCC) Spinal stenosis of lumbar region without neurogenic claudication Morbid obesity (CMS-HCC) Morbid obesity BMI 40.0-44.9, adult (CMS-HCC) Type 2 diabetes mellitus with diabetic polyneuropathy, without long-term current use of insulin (HCC) Morbid obesity (CMS-HCC) Morbid obesity documented in this encounter Additional Health Concerns AssessmentNoted TimePHQ-9 Depression Total Score: 10009/03/2022 11:14 AM EDT documented as of this encounter Care Teams Team MemberRelationshipSpecialtyStart DateEnd Date Carl Thrasher MD [address] [place] [address] PCP - GeneralInternal Medicine08/11/22 Kanu Torres DPM [address] [place] [address] Referring PhysicianPodiatry09/03/22 Zaid Mon MD [address] [place] [id number] Consulting PhysicianVascular Surgery09/03/22 [facility]09/21/23documented as of this encounter
--- OUTSIDE RECORDS SUMMARY | 2025-01-17 12:18 | XMS_ITS | Encounter Summary ---
Author Organization [facility] Address [address] [place] [address] Care Team Providers Care Pharmaceutical Engineer Name Role Phone Unavailable Primary Care Provider Unavailabl e Source Comments In the event this information is protected by the Federal Confidentiality of Alcohol and Drug AbusePatient Records regulations: The Federal rules restrict any use of the information to criminally investigate or prosecute any alcohol or drug abuse patient.[facility] Encounter Details DateTypeDepartmentCare Team (Latest Contact Info)Allccrzbimi80/28/2025Telephone Ophthalmology [address] [place], [place] [phone] Antwon Graham MD [address] [place] [address] Social History Tobacco UseTypesPacks/DayYears UsedDateSmoking Tobacco: FormerCigarettes Smokeless Tobacco: NeverArea Deprivation IndexAnswerDate RecordedNational Score (1-100), lower number is lower thes070609/30/2022State Score (1-10), lower number is lower syly0593Data from: https://www.neighborhoodatlas.medicine.[facility].edu/. Last address used for dj[address]CommentsUnknownSex and Gender InformationValueDate RecordedSex Assigned at BirthNot on fileLegal SexFemale 03/06/2021 12:05 PM ESTGender IdentityNot on fileSexual OrientationNot on file documented as of this encounter Miscellaneous Notes * Telephone Encounter - Carolyn Collins RN - 01/10/2025 7:43 AM EDT Attempted to call patient no answer. LVM to call back. * Telephone Encounter - Carolyn Collins RN - 01/09/2025 3:47 PM EDT Attempted to call patient, no answer. LVM to call back. * Telephone Encounter - Venita Sauceda - 01/09/2025 2:27 PM EDT Patient called and stated that since her last injection of OD (12/27/24) she has no vision. Eye migraine headache. She is unable to come in due to other appointments and would like to have a prescription called in to her pharmacy for the migraines. Thank you Venita documented in this encounter Plan of Treatment DateTypeDepartmentCare Team (Latest Contact Info)Doxbsaqbfkk94/12/2025 1:15 PM ESTOffice Visit [facility] Ophthal[facility] [address] [place] [address] Antwon Graham MD [place] [address] [facility] [address] [address] *[address], DTI AVASTIN ODdocumented as of this encounter Visit Diagnoses Not on filedocumented in this encounter
--- OUTSIDE RECORDS SUMMARY | 2025-01-17 12:18 | XMS_ITS | Encounter Summary ---
Author Organization [facility] Address [address] [place] [address] Support Name Relationship Address Phone Louie Ayala Unrelated friend [address] [place] [address] Ayan Tamayo Personal Relationship Unknown [phone] Care Team Providers Care Typing Secretary Name Role Phone Carl Thrasher MD Primary Care Provider [phone] Kanu Torres DPM Unavailable [phone] Zaid Mon MD Unavailable [phone] Encounter Details DateTypeDepartmentCare Team (Latest Contact Info)Jxdygqvqldx47/29/2025Abstract [facility] [address] [place] [address] Dannie Moctezuma, DPM FACFAS [address] [place] [address] Social History Tobacco UseTypesPacks/DayYears UsedDateSmoking Tobacco: ZzsbwlJpvfmsuxbx481 03/15/1985 - 2Smokeless Tobacco: NeverAlcohol UseStandard Drinks/Week CommentsNever0 (1 standard drink = 0.6 oz pure alcohol)caffeine: 2-3 cups per day coffeePHQ-2AnswerDate RecordedPatient Health Questionnaire-2 Score0 4CommentsUnknownSex and Gender InformationValueDate RecordedSex Assigned at VjuazFskqsy11/23/2023 4:09 PM EDTLegal XtoFkzeym01/15/2023 7:14 PM EDTGender IdicuyxaKxlfpc40/23/2023 4:09 PM EDTSexual OrientationNot on file OccupationIndustryJob Start DateJob End DatedisabledNot on fileNot on fileNot on filedocumented as of this encounter Plan of Treatment DateTypeDepartmentCare Team (Latest Contact Info)Kdsxzdqxnod79/05/2025 2:30 PM ESTOffice Visit [facility] [address] [place] [address] Type 2 diabetes mellitus with diabetic polyneuropathy, without long-term current use of insulin (HCC) (Primary Dx); Essential hypertension; Metabolic dysfunction-associated steatotic liver disease (MASLD); Chronic insomnia; Polyneuropathy associated with underlying disease (HCC); Spinal stenosis of lumbar region without neurogenic claudication; Morbid obesity (CMS-HCC); BMI 40.0-44.9, adult ([facility]-HCC)documented as of this encounter Visit Diagnoses Not on filedocumented in this encounter Additional Health Concerns AssessmentNoted TimePHQ-9 Depression Total Score: 10009/03/2022 11:14 AM EDT documented as of this encounter Care Teams Team MemberRelationshipSpecialtyStart DateEnd Date Carl Thrasher MD [address] [place] [address] PCP - GeneralInternal Medicine08/11/22 Kanu Torres DPM [address] [place] [address] Referring PhysicianPodiatry09/03/22 Zaid Mon MD [address] [place] [address] [address] [facility] [place] [address] Consulting PhysicianVascular Surgery09/03/22 [facility]09/21/23documented as of this encounter
--- OUTSIDE RECORDS SUMMARY | 2025-01-17 12:18 | XMS_ITS | Encounter Summary ---
Author Organization [facility] Address [address] [place] [address] Support Name Relationship Address Phone Louie Ayala Unrelated friend [address] [place] [address] Ayan Tamayo Personal Relationship Unknown [phone] Care Team Providers Care Plumber Gasfitter Name Role Phone Carl Thrasher MD Primary Care Provider [phone] Kanu Torres DPM Unavailable [phone] Zaid Mon MD Unavailable [phone] Encounter Details DateTypeDepartmentCare Team (Latest Contact Info)Floxfgdglri34/05/2025Abstract [facility] [address] [place] [address] Ray Torres, DPM [address] [facility] [address] [place] [address] Social History Tobacco UseTypesPacks/DayYears UsedDateSmoking Tobacco: EbrfgxUvvoqebzxm085 03/15/1985 - 2Smokeless Tobacco: NeverAlcohol UseStandard Drinks/Week CommentsNever0 (1 standard drink = 0.6 oz pure alcohol)caffeine: 2-3 cups per day coffeePHQ-2AnswerDate RecordedPatient Health Questionnaire-2 Score0 4CommentsUnknownSex and Gender InformationValueDate RecordedSex Assigned at LgctvSaxqrr42/23/2023 4:09 PM EDTLegal AjuMetnls08/15/2023 7:14 PM EDTGender AvvehdhySzmymz15/23/2023 4:09 PM EDTSexual OrientationNot on file OccupationIndustryJob Start DateJob End DatedisabledNot on fileNot on fileNot on filedocumented as of this encounter Plan of Treatment DateTypeDepartmentCare Team (Latest Contact Info)Cvtsdgswadc26/05/2025 2:30 PM ESTOffice Visit [facility] [place] [facility] [address] [place] [address] Type 2 diabetes mellitus with diabetic polyneuropathy, without long-term current use of insulin (HCC) (Primary Dx); Essential hypertension; Metabolic dysfunction-associated steatotic liver disease (MASLD); Chronic insomnia; Polyneuropathy associated with underlying disease (HCC); Spinal stenosis of lumbar region without neurogenic claudication; Morbid obesity ([facility]-H[facility]); BMI 40.0-44.9, adult ([facility]-HCC)documented as of this encounter Visit Diagnoses Not on filedocumented in this encounter Additional Health Concerns AssessmentNoted TimePHQ-9 Depression Total Score: 10009/03/2022 11:14 AM EDT documented as of this encounter Care Teams Team MemberRelationshipSpecialtyStart DateEnd Date Carl Thrasher MD [address] [place] [address] PCP - GeneralInternal Medicine08/11/22 Kanu Torres DPM [address] [place] [address] Referring PhysicianPodiatry09/03/22 Zaid Mon MD [address] [place] [address] [place] [address] Consulting PhysicianVascular Surgery09/03/22 [facility]09/21/23documented as of this encounter
--- OUTSIDE RECORDS SUMMARY | 2025-01-17 12:18 | XMS_ITS | Clinical Summary ---
Author Organization [facility] Address [address] [place] [address] Care Team Providers Care Shotblast Operator Name Role Phone Unavailable Primary Care Provider Unavailabl e Allergies Active AllergyReactionsCriticalityNoted DateCommentsAce InhibitorsCoughLow 04/25/2021HydrocodoneMental Status Bqiipj8111/03/2021MetforminGI Upset,Other: See LxqtgocaLez13/11/2022ioglitazoneCough,Other: See BnwenscfXga68/11/2022 PrednisoneOther: See Comments,Zcekovq7304/25/20212626Sxbtlsd-Wxq-Bhg Reductase InhibitorsOther: See KlpmaeepSio80/11/2022 myalgia Medications MedicationSigDispense QuantityRefillsLast FilledStart DateEnd DateStatus amitriptyline (ELAVIL) 25 mg tablet Take 25 mg by mouth daily at bedtime.06/09/2021ctive atorvastatin (LIPITOR) 20 mg tablet Take 40 mg by mouth once daily.06/09/2021ctive clopidogrel (PLAVIX) 75 mg tablet Take 75 mg by mouth once daily.08/18/2021ctive cyclobenzaprine (FLEXERIL) 10 mg tablet TAKE 1 TABLET BY MOUTH AT BEDTIME DAILY NUHPMP0308/20/2021ctive DULoxetine (CYMBALTA) 30 mg capsule Take 30 mg by mouth once daily.08/20/2021ctive fluticasone (FLONASE) 50 mcg/actuation nasal spray INHALE TWO SPRAYS NASALLY EVERY DAY IN EACH NOSTRIL AREWNV0908/20/2021ctive gabapentin (NEURONTIN) 800 mg tablet Take 800 mg by mouth four times daily.08/13/2021ctive glimepiride (AMARYL) 4 mg tablet Take 4 mg by mouth once daily.08/03/2021ctive levothyroxine (SYNTHROID) 100 mcg tablet Take 150 mcg by mouth once daily.08/05/2021ctive losartan (COZAAR) 50 mg tablet Take 50 mg by mouth once daily.07/02/2021ctive meclizine (ANTIVERT) 25 mg tab Take 25 mg by mouth once daily as needed.08/03/2021ctive meloxicam (MOBIC) 15 mg tablet Take 15 mg by mouth once daily.08/03/2021ctive methIMAzole (TAPAZOLE) 10 mg tablet Take 10 mg by mouth once daily.06/18/2021ctive metoprolol succinate ER (TOPROL XL) 25 mg 24 hr tablet Take 50 mg by mouth once daily.05/15/2021ctive nystatin (MYCOSTATIN) ointment 1 (ONE) application to skin TWICE DAILY06/25/2021 ondansetron (ZOFRAN) 8 mg tablet Take 8 mg by mouth every 8 hours as needed.07/01/2021ctive OZEMPIC 0.25 mg or 0.5 mg(2 mg/1.5 mL) pen injector INJECT 0.5MG SUBCUTANEOUSLY ONCE WEEKLY FOR FOUR WEEKS THEN 1MG ONCE A WEEK 08/20/2021 propylthiouracil 50 mg tablet Take 50 mg by mouth twice daily.07/02/2021ctive triamcinolone acetonide (KENALOG) 0.5 % cream APPLY TO THE AFFECTED AREA(S) EXTERNALLY TWICE DAILY PSFJSF8208/20/2021 aspirin 81 mg chewable tablet 81 mg once daily.01/22/2021ctive ergocalciferol 50,000 unit capsule (VITAMIN D2, DRISDOL) Take 1.25 mg by mouth.09/07/2022ctive zolpidem (AMBIEN) 5 mg tablet Take 5 mg by mouth.09/07/2022ctiveHospital, Clinic, or Other Facility Administered MedicationOrdered DoseRouteFrequencyStart DateEnd DateStatus tropicamide 1 % 1 drop (MYDRIACYL) Indications:Central retinal vein occlusion, right eye, with macular edema (HCC)1 dropOUAS ARLRYCOW01/Ended PHENYLephrine 2.5 % 1 drop (AK-DILATE, ANCELMO-SYNEPHRINE) Indications:Central retinal vein occlusion, right eye, with macular edema (HCC)1 dropOUAS TTAWTEJR89/Ended fluorescein-benoxinate 0.3-0.4 % 1 drop (FLURESS) Indications:Central retinal vein occlusion, right eye, with macular edema (HCC)1 dropOUAS RAXWSTMR55/Ended proparacaine 0.5 % 1 drop (ALCAINE) Indications:Central retinal vein occlusion, right eye, with macular edema (HCC)1 dropOUAS XBOVIHHJ15Ended bevacizumab (Babs's) 1.25 mg intravitreal syringe (AVASTIN) Indications:Central retinal vein occlusion, right eye, with macular edema (HCC) 1.25 feRXCH26Ended Active Problems No known active problems Encounters DateTypeDepartmentCare LzsiOvmzqbdhgkd87/28/2025Telephone Ophthalmology [address] [place] [address] Antwon Graham MD 12/27/2024 8:15 AM EDTOffice Visit [facility]hthal[facility] [address] [place] [address] Antwon Graham MD Diagnostics, [facility] Central retinal vein occlusion, right eye, with macular edema (HCC) (Primary Dx) from Last 3 Months Family History Medical HistoryRelationCommentsNo Ocular DiseaseBrotherCataractFatherNo Ocular DiseaseMaternal GrandfatherNo Ocular DiseaseMaternal GrandmotherNo Ocular DiseaseMotherNo Ocular DiseasePaternal GrandfatherNo Ocular DiseasePaternal GrandmotherNo Ocular DiseaseSisterRelationStatusCommentsBrotherFatherMaternal GrandfatherMaternal GrandmotherMotherPaternal GrandfatherPaternal Grandmother Sister Social History Tobacco UseTypesPacks/DayYears UsedDateSmoking Tobacco: FormerCigarettes Smokeless Tobacco: Never Tobacco Cessation:Counseling Given: Not Answered Area Deprivation IndexAnswerDate RecordedNational Score (1-100), lower number is lower lryc471009/30/2022State Score (1-10), lower number is lower kfic35609/30/2022 Data from: https://www.neighborhoodatlas.[facility].edu/. Last address used for oxsetmlkyfr[address]3CommentsUnknownSex and Gender InformationValueDate RecordedSex Assigned at BirthNot on fileLegal SexFemale 03/06/2021 12:05 PM ESTGender IdentityNot on fileSexual OrientationNot on file Plan of Treatment DateTypeDepartmentCare Team (Latest Contact Info)Ltdmgjfeuxd93/12/2025 1:15 PM ESTOffice Visit [facility]hthal[facility] [address] [place] [address] Antwon Graham MD [address] [place], [place] [id number] Diagnostics, [facility] [address] [id number] *4 W, DTI AVASTIN ODHealth MaintenanceDue DateLast DoneCommentsAnxiety Screening 01/28/1984Depression Olbqwucmq58/15/1984HIV Tkhnpmucp40/15/1984Hepatitis C Kcplrxtbx41/15/1984DTaP,Tdap,Td Vaccine (1 - Tdap)1985Cervical Cancer Pjdvtyehx82/15/1987Hepatitis B Vaccine (3 of 3 - 19+ 3-dose series)08/18/1991 03/22/1991, 02/16/1991CT Wrbotjjsmhjw68/15/2011Cologuard (FIT-DNA)2011 Fecal Occult Blood2011Lipid Gitcwrxgu54/15/7190Qzzhtqxmntbsg74/15/2011 Lkkwndccrrb72Colorectal Cancer Kbwugosbx14/29/2015Pneumococcal Vaccine: 50+ (1 of 1 - PCV)01/28/2016Shingrix Vaccine (1 of 2)01/28/2016 Mammogram Kitsyvyxh27/15/42788103/29/2021, 2022, 10/31/2020, Additional [facility] Annual Wellness Visit5Covid-19 Vaccine ( season)5004/05/2022, 07/05/2021, 12/07/2020, Additional history existsInfluenza Vaccine (#1)501/, 04/12/2024, 11/25/2022, Additional history existsDiabetes Xeahhcumi12/07/2024, 10/11/2023, 06/01/2023, Additional history exists Procedures Procedure NamePriorityDate/TimeAssociated DiagnosisCommentsAVASTIN (BEVACIZUMAB) 1.25MG INTRAVITREAL INJECTION OD (RIGHT EYE)Hctjcnq0512/27/2024 9:18 AM EDT Central retinal vein occlusion, right eye, with macular edema (HCC) OCT MACULA CIRRUS OU (BOTH EYES)Rowgfuq4412/27/2024 8:52 AM EDT Central retinal vein occlusion, right eye, with macular edema (HCC) from Last 3 Months Results * AVASTIN (BEVACIZUMAB) 1.25MG INTRAVITREAL INJECTION OD (RIGHT EYE) (12/27/2024 9:18 AM EDT) Narrative Antwon Graham MD - 12/27/2024 9:18 AM EDT Date of Procedure 12/27/2024 [place] Protocol Safety Checklist A moment of CARE was completed Sign In Sign in communication not applicable due to emergent procedure. Personnel directly involved with the procedure wore the appropriate PEE. Special Equipment: N/A. Patient/surrogate stated/verified patient name, date of , relevant allergies, intended procedure. Provider Confirms: Relevant labs, photos, and/or imaging studies have been reviewed. Intended patient and procedure match the source document(s) (e.g. consent, associated studies [imaging, pathology]). Consent obtained and matches the intended procedure. Correct side/site marked and visible. Medications required for procedure verified. Fire risk assessed and interventions discussed: N/A. expiration date(s) reviewed. Sign Out All specimens are correctly labeled and sent: N/A. All instruments, equipment, possible retained foreign bodies accounted for. Post-procedure POC communicated to patient or surrogate. Post-procedure POC communicated to patient's multidisciplinary team: N/A. Anesthesia 1-2 drops Topical 0.5% Proparacaine, 0.5 mL subconjunctival injection of 2% Lidocaine. Prep 5% Betadine. Injection Administration Medication: 1.25 mg bevacizumab (Babs's) 2.25 mg/0.09 mL ??Route: INTRAVITREAL, Site: Right Balance Wasted Residual medication less than 1 unit was discarded. Anterior Chamber Paracentesis No. Post Injection Evaluation Patient has at least hand motion vision. Post Procedure Medications None. Home Going Prescription None. Authorizing ProviderResult TypeResult StatusAntwon Graham MDOPHTHALMOLOGYFinal Result * OCT MACULA CIRRUS OU (BOTH EYES) (12/27/2024 8:52 AM EDT)Anatomical Region LateralityModalityOther Narrative 12/27/2024 9:17 AM EDT Date of Procedure 12/27/2024 Educational Technology Coordinator Information Rope Laying Machine Operator: heidy OCT Macula Interpretation Right Eye Findings include Drusen, Drusenoid PED, Lamellar hole, Ellipsoid Zone Loss; Negative for Intraretinal fluid, Cystoid macular edema, Subretinal fluid. Left Eye Normal without fluid. Interval Change Right Eye Better Left Eye Stable Authorizing ProviderResult TypeResult StatusAntwon Graham MDOPHTHALMOLOGYFinal Result from Last 3 Months Insurance
--- OUTSIDE RECORDS SUMMARY | 2025-01-17 12:19 | XMS_ITS | Encounter Summary ---
Author Organization [facility] Address [address] [place] [address] Support Name Relationship Address Phone Louie Ayala Unrelated friend [address] [place] [address] Ayan Tamayo Personal Relationship Unknown [phone] Care Team Providers Care Rubber Tubing Backer Name Role Phone Carl Thrasher MD Primary Care Provider [phone] Kanu Torres DPGeremias Unavailable [phone] Zaid Mon MD Unavailable [phone] Reason for Visit * ReasonCommentsMed Refill Encounter Details DateTypeDepartmentCare Team (Latest Contact Info)Kaeqdkeirqz61/29/2025[facility] [address] [facility] [address] [place] [address] Irma Bunch PA [address] [facility] [address] [place] [address] Yeast dermatitis Social History Tobacco UseTypesPacks/DayYears UsedDateSmoking Tobacco: BdiegiCyuzmtxfhs503 03/15/1985 - 2Smokeless Tobacco: NeverAlcohol UseStandard Drinks/Week CommentsNever0 (1 standard drink = 0.6 oz pure alcohol)caffeine: 2-3 cups per day coffeePHQ-2AnswerDate RecordedPatient Health Questionnaire-2 Score0 4CommentsUnknownSex and Gender InformationValueDate RecordedSex Assigned at BankxTttpxs43/23/2023 4:09 PM EDTLegal VnvDzwysv34/15/2023 7:14 PM EDTGender DdpsdcicKtortu38/23/2023 4:09 PM EDTSexual OrientationNot on file OccupationIndustryJob Start DateJob End DatedisabledNot on fileNot on fileNot on filedocumented as of this encounter Miscellaneous Notes * Telephone Encounter - Riki Velarde MA - 01/10/2025 9:00 AM EDT Rx sent documented in this encounter Plan of Treatment DateTypeDepartmentCare Team (Latest Contact Info)Oonwziliaqz63/05/2025 2:30 PM ESTOffice Visit [facility] [place] [facility] [address] [place] [address] Type 2 diabetes mellitus with diabetic polyneuropathy, without long-term current use of insulin (HCC) (Primary Dx); Essential hypertension; Metabolic dysfunction-associated steatotic liver disease (MASLD); Chronic insomnia; Polyneuropathy associated with underlying disease (HCC); Spinal stenosis of lumbar region without neurogenic claudication; Morbid obesity (CMS-HCC); BMI 40.0-44.9, adult (CMS-HCC)documented as of this encounter Visit Diagnoses Diagnosis Yeast dermatitis Type 2 diabetes mellitus with diabetic polyneuropathy, without long-term current use of insulin (HCC)- Primary Essential hypertension Unspecified essential hypertension Metabolic dysfunction-associated steatotic liver disease (MASLD) Chronic insomnia Insomnia, unspecified Polyneuropathy associated with underlying disease (HCC) Spinal stenosis of lumbar region without neurogenic claudication Morbid obesity (CMS-HCC) Morbid obesity BMI 40.0-44.9, adult (CMS-HCC) documented in this encounter Additional Health Concerns AssessmentNoted TimePHQ-9 Depression Total Score: 10009/03/2022 11:14 AM EDT documented as of this encounter Care Teams Team MemberRelationshipSpecialtyStart DateEnd Carl Thrasher MD [address] [place] [address] PCP - GeneralInternal Medicine08/11/22 Kanu Torres DPM [address] [place] [address] Referring PhysicianPodiatry09/03/22 Zaid Mon MD [address] [facility] [address] [place] [address] Consulting PhysicianVascular Surgery09/03/22 [facility]09/21/23documented as of this encounter
--- OUTSIDE RECORDS SUMMARY | 2025-01-17 12:19 | XMS_ITS | Encounter Summary ---
Author Organization [facility] Address [address] [place] [address] Support Name Relationship Address Phone Louie Ayala Unrelated friend [address] [place] [address] Ayan Tamayo Personal Relationship Unknown [phone] Care Team Providers Care Radio Station Audio Engineer Name Role Phone Carl Thrasher MD Primary Care Provider [phone] Kanu Torres DPM Unavailable [phone] Zaid Mon MD Unavailable [phone] Encounter Details DateTypeDepartmentCare Team (Latest Contact Info)Gxxnfstuemg72/21/2025Patient Outreach [facility] [address] [place] [address] Venita Gramajo LPN Social History Tobacco UseTypesPacks/DayYears UsedDateSmoking Tobacco: YwqtrnHpwnoatneh807 03/15/1984 - 2Smokeless Tobacco: NeverAlcohol UseStandard Drinks/Week CommentsNever0 (1 standard drink = 0.6 oz pure alcohol)caffeine: 2-3 cups per day coffeePHQ-2AnswerDate RecordedPatient Health Questionnaire-2 Score0 4CommentsUnknownSex and Gender InformationValueDate RecordedSex Assigned at LshasRumvlm49/23/2023 4:09 PM EDTLegal LclYeghtw63/15/2023 7:14 PM EDTGender RwbfvyzjYnxlpy92/23/2023 4:09 PM EDTSexual OrientationNot on file OccupationIndustryJob Start DateJob End DatedisabledNot on fileNot on fileNot on filedocumented as of this encounter Progress Notes * Venita Gramajo LPN - 01/02/2025 11:01 AM EDT Images from the original note were not included. Flowsheet Row Patient Outreach from 01/02/2025 in [facility] with Venita Gramajo LPN Hospital Information ED, Hospital or Chcf Facility Discharge? Hospital Patient has been contacted within two business days of discharge Yes Diagnosis Cellulitis, septic encephalopathy, HTN, diabetic ulcer of left foot, DM with hyperglycemia, chronic low back pain, polycythemia neutrophilice Discharge Date 12/31/24 Discharged To: Home Setting Discharge [facility] Engagement Call Start Time 1100 Admission Date 12/29/24 Medications Discharge medications reviewed and reconciled from hospital? Yes [START: Linezolid HOLD: Amitriptyline, Duloxetine until Linezolid is completed] Is the patient having any side effects they believe may be caused by any medication additions or changes? No Does the patient have all medications ordered at discharge? Yes Is the patient taking all medications as directed (includes completed medication regime)? Yes Nursing Interventions Nurse provided patient education Appointments Does the patient have a primary care provider? Yes [Scheduled 01/17] Nursing Interventions Verified appointment date/time/provider Does the patient have any upcoming specialty appointments? Yes [Wound Care at [facility] 02/03] Nursing Interventions Advised patient to keep appointment Self Management Patient Teaching Does the patient have access to their discharge instructions? Yes Nursing Interventions Reviewed instructions with patient What is the patient's perception of their health status since discharge? Improving Is the patient/caregiver able to teach back the hierarchy of who to call/visit for symptoms/problems? PCP, Specialist, Home Health nurse, Urgent Care, ED, 911 Yes Wrap Up Wrap Up Additional Comments Had labs, blood cultures, CT scan Call End Time 1107 Called and spoke to pt. States she is doing good. Dr Torres said that her wound looks good and doesn't believe that is the source of infection. She is on ATB for 14 days. Medications reconciled. Requesting refill on oxycodone and uses [facility] in [place]. Said pharmacy will hold until due date of 01/11. She starts wound care tomorrow at [facility]. Has appt with office on 01/17. Declined 30 day monitor atthis time. documented in this encounter Plan of Treatment DateTypeDepartmentCare Team (Latest Contact Info)Wrouejiyyxv46/05/2025 2:30 PM ESTOffice Visit [facility] [place] [facility] [address] [place] [phone] Type 2 diabetes mellitus with diabetic polyneuropathy, [...] long-term current use of insulin (HCC)- Primary Cellulitis of left lower extremity Chronic bilateral low back pain without sciatica Type 2 diabetes mellitus with diabetic polyneuropathy, [...] [address] [place] [address] PCP - GeneralInternal Medicine08/11/22 Kanu Torres DPM [address] [place] [address] Referring PhysicianPodiatry09/03/22 Zaid Mon MD [address] [place] [address] Consulting PhysicianVascular Surgery09/03/22 [facility]09/21/23documented as of this encounter
--- OUTSIDE RECORDS SUMMARY | 2025-01-17 12:19 | XMS_ITS | Clinical Summary ---
Author Organization [facility] Address [address] [place] [address] Phone Care Team Providers Care Liquid Sugar Melter Name Role Phone Unavailable Primary Care Provider Unavailabl e Social History Tobacco UseTypesPacks/DayYears UsedDateSmoking Tobacco: Never Assessed CommentsUnknownSex and Gender InformationValueDate RecordedSex Assigned at Not on fileLegal LjbBchymu67/26/2022 5:21 PM ESTGender IdentityNot on fileSexual OrientationNot on file Plan of Treatment Not on file
--- OUTSIDE RECORDS SUMMARY | 2025-01-17 12:19 | XMS_ITS | Clinical Summary ---
Author Organization [facility] Address [address] [place] [address] Support Name Relationship Address Phone Louie Ayala Unrelated friend [address] [place] [address] Ayan Tamayo Personal Relationship Unknown [phone] Care Team Providers Care Jewelry Sales Coordinator Name Role Phone Carl Thrasher MD Primary Care Provider [phone] Kanu Torres DPM Unavailable [phone] Zaid Mon MD Unavailable [phone] Allergies Active AllergyReactionsCriticalityNoted DateCommentsAce InhibitorsCoughLow 08/11/20223102JlnfwkjsktpCti98/08/2023 Other Reaction(s): Hallucinating Metformin HclGI pgayvgxrdjkGci40/30/2023Semaglutide(0.25 Or 0.5mg-Dos)GI sspbyemtfwtOtg94/29/8792KdlzgkkkoerpKbwysZqe61/30/2023rednisoneUnknownLow 08/11/20226718EbwalouNhhpdWqt62/11/2022 myalgia Other Reaction(s): Other: See Comments Medications MedicationSigDispense QuantityRefillsLast FilledStart DateEnd DateStatus ASPIRIN 81 MG chewable tablet 1 (one) time each day at the same time.01/22/2021ctive triamcinolone (Kenalog) 0.5 % cream Active cholecalciferol (Vitamin D-3) 25 MCG tablet Take 25 mcg by mouth DailyActive clopidogrel (Plavix) 75 MG tablet Indications:History of stroke without residual deficits,Hyperlipidemia, unspecifiedTake 1 tablet (75 mg) by mouth Daily 90 tablet 5Active cyclobenzaprine (Flexeril) 10 MG tablet Indications:Spinal stenosis, lumbar region without neurogenic claudicationTake 1 tablet (10 mg) by mouth as needed at bedtime for muscle spasms 90 tablet 5Active DULoxetine (Cymbalta) [address] capsule Indications:Moderate major depression (HCC)Take 1 capsule (30 mg) by mouth Daily 90 capsule 5Active losartan (Cozaar) 50 MG tablet Indications:Hyperlipidemia, unspecified,Essential hypertensionTake 1 tablet (50 mg) by mouth Daily 90 tablet 5Active Additional Information Patient taking differently: 25 mgOral Daily, Reported on 12/01/2024 levothyroxine (Synthroid, Levoxyl) 150 MCG tablet Indications:Postoperative hypothyroidismTake 1 tablet (150 mcg) by mouth in the morning. Take on an empty stomach.. 90 tablet tive meloxicam (Mobic) 15 MG tablet Indications:Spinal stenosis, lumbar region without neurogenic claudicationTake 1 tablet (15 mg) by mouth Daily 90 tablet tive omeprazole (PriLOSEC) [address] capsule Indications:Gastro-esophageal reflux disease without esophagitisTake 1 capsule (40 mg) by mouth in the morning. Take before meals. Do not crush or chew.. 90 capsule tive meclizine (Antivert) 25 MG tablet Indications:VertigoTake 1 tablet (25 mg) by mouth 3 (three) times a day as needed for dizziness 90 tablet 1103/772135/6Active metoprolol succinate XL (Toprol-XL) 50 MG 24 hr tablet Indications:Hyperlipidemia, unspecifiedTake 1 tablet (50 mg) by mouth Daily 90 tablet 5Active gabapentin (Neurontin) 800 MG tablet Indications:Type 2 diabetes mellitus with diabetic nephropathy, without long- term current use of insulin (HCC),Type 2 diabetes mellitus with diabetic nephropathy (HCC)Take 1 tablet (800 mg) by mouth in the morning and 1 tablet (800 mg) at noon and 1 tablet (800 mg) in the evening and 1 tablet (800 mg) before bedtime. Take before meals. 360 tablet tive amitriptyline (Elavil) 50 MG tablet Indications:Moderate major depression (HCC)Take 1 tablet (50 mg) by mouth at bedtime 90 tablet 5Active zolpidem (Ambien) 10 MG tablet Indications:Chronic insomniaTake 1 tablet (10 mg) by mouth at bedtime 90 tablet 1055Active empagliflozin (Jardiance) 25 MG Indications:Type 2 diabetes mellitus with diabetic polyneuropathy, without long- term current use of insulin ([facility])Take 1 tablet (25 mg) by mouth Daily 90 tablet 5Active glimepiride (Amaryl) 4 MG tablet Indications:Type 2 diabetes mellitus with diabetic polyneuropathy, without long- term current use of insulin ([facility])Take 1 tablet (4 mg) by mouth in the morning and 1 tablet (4 mg) in the evening. Take with meals. 180 tablet 5Active atorvastatin (Lipitor) 80 MG tablet Indications:Pure hypercholesterolemiaTAKE ONE TABLET BY MOUTH DAILY AT 5PM 90 tablet 3065Active diphenoxylate-atropine (Lomotil) 2.5-0.025 MG tablet Indications:Diarrhea, unspecified typeTake 1 tablet by mouth 4 (four) times a day as needed for diarrhea 30 tablet 5Active fluticasone (Flonase) 50 MCG/ACT nasal spray Indications:Chronic pansinusitisINSTILL 2 SPRAYS IN EACH NOSTRIL DAILY NEEDED 16 g 5Active albuterol HFA (Ventolin HFA) 90 mcg/act inhaler Indications:SOB (shortness of breath)Inhale 2 puffs every 4 (four) hours if needed for wheezing or shortness of breath 8 g 5Active insulin pen needle 31G X 8 mm misc Indications:Type 2 diabetes mellitus with diabetic polyneuropathy, without long- term current use of insulin ([facility])Use to inject 1-4 times daily as directed. 100 each 11012/01/8378046Active Continuous Glucose Sensor (FreeStyle Osmin 3 Plus Sensor) mis Indications:Type 2 diabetes mellitus with diabetic polyneuropathy, without long- term current use of insulin ([facility])1 Device Every 15 Days 2 each 3105Active insulin glargine (Lantus SoloStar) 100 UNIT/ML pen Indications:Type 2 diabetes mellitus with diabetic polyneuropathy, without long- term current use of insulin ([facility])Inject 20 Units under the skin at bedtime 15 mL 3105Active ondansetron (Zofran) 8 MG tablet Indications:NauseaTake 1 tablet (8 mg) by mouth every 8 (eight) hours if needed (or vomiting) 20 tablet 1105Active oxyCODONE (Roxicodone) 10 MG immediate release tablet Indications:Chronic bilateral low back pain without sciaticaTake 1 tablet (10 mg) by mouth every 4 (four) hours if needed for severe pain 180 tablet 5Active nystatin (Mycostatin) ointment Indications:Yeast dermatitisAPPLY TO THE AFFECTED AREA(S) TOPICALLY EVERY TWELVE HOURS 15 g 5Active Mounjaro 5 MG/0.5ML solution auto-injector Indications:Type 2 diabetes mellitus with diabetic polyneuropathy, without long- term current use of insulin ([facility]),Morbid obesity ([facility])INJECT 5 MG UNDER THE SKIN ONCE A WEEK (CALL WHEN TAKING LAST DOSE FOR POSSIBLE INCREASE) 2 mL 5Active ondansetron (Zofran) 8 MG tablet Indications:NauseaTAKE ONE TABLET (8MG) BY MOUTH EVERY 8 HOURS NEEDED FOR NAUSEA OR VOMITING 20 tablet /Discontinued(Reorder) insulin glargine (Lantus SoloStar) 100 UNIT/ML pen Indications:Type 2 diabetes mellitus with diabetic polyneuropathy, without long- term current use of insulin ([facility])Inject 20 Units under the skin at bedtime 15 mL Discontinued(Reorder) Continuous Glucose Sensor (FreeStyle Osmin 3 Plus Sensor) [facility] Indications:Type 2 diabetes mellitus with diabetic polyneuropathy, without long- term current use of insulin ([facility])1 Device Every 15 Days 2 each Discontinued(Reorder) amoxicillin-clavulanate (Augmentin) 875-125 MG tablet Take 1 tablet by mouth in the morning and 1 tablet before bedtime.10/22/2024 01/02/2025Discontinued nystatin (Mycostatin) ointment Indications:Yeast dermatitisApply topically every 12 (twelve) hours 15 g /Discontinued Tirzepatide (Mounjaro) 2.5 MG/0.5ML solution auto-injector Indications:Type 2 diabetes mellitus with diabetic polyneuropathy, without long- term current use of insulin ([facility]),Morbid obesity ([facility])Inject 2.5 mg under the skin 1 (one) time per week 2 mL /Discontinued(Therapy completed) oxyCODONE (Roxicodone) 10 MG immediate release tablet Indications:Chronic bilateral low back pain without sciaticaTake 1 tablet (10 mg) by mouth every 4 (four) hours if needed for severe pain 180 tablet Discontinued(Reorder) Continuous Glucose Sensor (FreeStyle Osmin 3 Plus Sensor) [facility] Indications:Type 2 diabetes mellitus with diabetic polyneuropathy, without long- term current use of insulin ([facility])1 Device Every 15 Days 2 each Discontinued(Reorder) insulin glargine (Lantus SoloStar) 100 UNIT/ML pen Indications:Type 2 diabetes mellitus with diabetic polyneuropathy, without long- term current use of insulin ([facility])Inject 20 Units under the skin at bedtime 15 mL Discontinued(Reorder) Tirzepatide (Mounjaro) 5 MG/0.5ML solution auto-injector Indications:Type 2 diabetes mellitus with diabetic polyneuropathy, without long- term current use of insulin ([facility]),Morbid obesity ([facility])Inject 5 mg under the skin 1 (one) time per week Call when taking last dose for possible increase 2 mL /07/2024Discontinued linezolid (Zyvox) 600 MG tablet Take 600 mg by mouth in the morning and 600 mg before bedtime.12/31/2024 01/14/2025Expired Active Problems ProblemNoted DateDiagnosed DatePeripheral arterial vprrhok3810/16/2024Thyroid rridsp3507/10/2024Former dkxgro0302/23/2023Vitamin D hdtujqgjof86/13/2023ure ovevetqdrcqhvlhtawok24/21/2023astroesophageal reflux disease without huimumfbaze42/08/2023Elevated tvbfhxeglv78/08/2023mputation of toe of right foot08/20/2022cquired hammer toe deformity of lesser toe of left foot08/11/2022 Type 2 diabetes mellitus with diabetic polyneuropathy, without long-term current use of wxtsvvg9110/27/2021ostoperative qzmjgzzbdaqpub45/06/2022Moderate major ggudylornt70/08/2022eripheral zuotyfbgbb87/26/2021Metabolic dysfunction- associated steatotic liver disease (MASLD)10/03/2020History of stroke without residual ffkkvmur15/06/2021hronic icdvgpum33/30/2020Lumbar spinal stenosis 09/11/2019History of colonic nxnqpj5206/21/2017Morbid eiexlzw3206/11/2015Essential cbuoezwivrqu18/29/2016OSA (obstructive sleep apnea)06/11/2015 Resolved Problems ProblemNoted DateDiagnosed DateResolved DateStatin ubhsxiax75/07/2024 Pqstevsbpegtjc10/13/202303/ain of left calfiabetic foot ulcercquired hammer toe deformity of lesser toe of right footSkin ulcer of toe of left foot, limited to breakdown of skinType 2 diabetes mellitus with diabetic eabtyznwvwk91Type 2 diabetes mellitus with foot ulcer, with long-term current use of nhsxmrr54bscess of toe of left foot Type 2 diabetes mellitus with foot ulcer (CODE)10/21/2021 05/28/2023Stage 2 chronic kidney aamrlzs29Toxic multinodular noeefq09Status post amputation of toe of left foot ([facility]) Status post amputation of toe of right foot ([facility]) TachycardiaLeukocytosis01/16/2021 05/28/2023Ulcer of foot due to type 2 diabetes vdncjule88/ Mxizvjfbniylfh93hronic ejownaihhssb62 Osteoarthritis of lumbar spinehronic low back pain 05/22/llergic ilttbncn58 Encounters DateTypeDepartmentCare KqnnRlnwpymtdnr12/05/2025 2:30 PM ESTOffice Visit [facility] [address] [place] [address] Type 2 diabetes mellitus with diabetic polyneuropathy, without long-term current use of insulin (HCC) (Primary Dx); Essential hypertension; Metabolic dysfunction-associated steatotic liver disease (MASLD); Chronic insomnia; Polyneuropathy associated with underlying disease (HCC); Spinal stenosis of lumbar region without neurogenic claudication; Morbid obesity ([facility]); BMI 40.0-44.9, adult ([facility])01/17/2025bstract [facility] [address] [place] [address] Ray Torres, DPM 01/17/2025Refill [facility] [address] [place] [address] Carl Thrasher MD Type 2 diabetes mellitus with diabetic polyneuropathy, without long-term current use of insulin (HCC); Morbid obesity ([facility])01/10/2025bstract [facility] [address] [place] [phone] Dannie Moctezuma, DPM FACFAS 01/10/2025Refill [facility] [address] [place] [address] Irma Bunch PA Yeast anhzudflpu95/21/2025Patient Outreach [facility] [address] [place] [address] Venita Gramajo, BECKIE 12/31/2024bstract [facility] [address] [place] [address] Ray Torres, DPM 12/28/2024Refill [facility] [address] [place] [address] Carl Thrasher MD Chronic xeiajhin65/14/2025Refill [facility] [address] [place] [address] Willow Fernandez, SWITCH CLEANER Kmmpsa1512/25/2024Telephone [facility] [address] [place] [address] Yazmin Schaeffer LPN Med Rwbybc8812/20/2024Refill [facility] [address] [place] [address] Carl Thrasher MD Ocwbje6112/19/2024Refill [facility] [address] [place] [address] Yazmin Schaeffer, SWITCH CLEANER Type 2 diabetes mellitus with diabetic polyneuropathy, without long-term current use of insulin ([facility])12/19/2024Refill [facility] [address] [place] [address] [place], [place] Type 2 diabetes mellitus with diabetic polyneuropathy, without long-term current use of insulin ([facility])12/12/2024 2:00 PM EDTOffice Visit [facility] [address] [place] [address] Ray Torres, DPM Diabetes mellitus due to underlying condition with diabetic polyneuropathy, 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 [place] [phone] Juan J Sim RN DSME12/05/2024bstract [facility] [address] [place] [address] Ray Torres DPM 12/04/2024bstract [facility] [address] [place] [address] Ray Torres DPM 12/01/2024 2:00 PM EDTOffice Visit [facility] [address] [facility] [address] [place] [address] Irma Bunch PA Type 2 diabetes mellitus with diabetic polyneuropathy, without long-term current use of insulin (HCC) (Primary Dx); Morbid obesity ([facility]-H[facility]); BMI 40.0-44.9, adult ([facility]-H[facility]); SOB (shortness of breath); Yeast dermatitis; Metabolic dysfunction-associated steatotic liver disease (MASLD)12/01/2024Refill [facility] [address] 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) (Primary Dx); Foot ulcer, left, with fat layer exposed (HCC); PVD (peripheral vascular disease)11/21/2024amboo flowsheet [facility] [place] [facility] [address] [place] [address] Ray Torres DPM 11/09/2024[facility] [address] [place] [address] [place], [place] Chronic bilateral low back pain without ssjvlrnu92/21/2025Telephone [facility] [address] [place] [phone] Willow Fernandez LPN concern for TB10/25/2024 4:30 PM EDTOffice Visit [facility] [place] [facility] [address] [facility] [place] [address] Ray Torres DPM Diabetes mellitus due to underlying condition with diabetic polyneuropathy, 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 (HCC) (Primary Dx); Foot ulcer, left, with fat layer exposed (HCC); PVD (peripheral vascular disease)10/25/2024 2:00 PM EDTOffice Visit [facility] [address] [place] [address] Yoni French, GENEVA Acute CVA (cerebrovascular accident) (HCC) (Primary Dx); Type 2 diabetes mellitus with diabetic polyneuropathy, without long-term current use of insulin (HCC); Essential hypertension ; Diarrhea, unspecified type10/25/20244111Kehcfx16/12/2025Patient Outreach [facility] [address] [place] [address] Venita Gramajo LPN 10/23/2024Telephone [facility] [address] [place] [address] [place], [place] 10/21/2024External Result Encounter [facility] Unsolicited Ray Torres DPM 10/21/2024External Result Encounter [facility] External [facility] Unsolicited Ray Torres, DPM 10/20/2024bstract [facility] [place] [facility] [address] [place] [address] Ray Torres DPM 10/19/2024Telephone [facility] [address] [place] [address] Ray Torres DPM 10/18/2024Telephone [facility] [place] [facility] [address] [place] [address] Ray Torres DPM Ciubckvilr66/06/2025Refill [facility] [address] [place] [address] Carl Thrasher MD Type 2 diabetes mellitus with diabetic polyneuropathy, without long-term current use of insulin (HCC)10/18/2024Results Follow-Up [facility] [address] [place] [address] Radhika Guerra NP CBC and differential, Comprehensive metabolic panel, Hemoglobin a1c with eag 10/17/2024 2:30 PM EDTOffice Visit [facility] [address] [facility] [address] [place] [address] Radhika Guerra NP Type 2 diabetes mellitus with diabetic polyneuropathy, without long-term current use of insulin (HCC) (Primary Dx); Essential hypertension ; Peripheral arterial disease; History of stroke without residual deficits; Metabolic dysfunction-associated steatotic liver disease (MASLD); Chronic insomnia; RICK (obstructive sleep apnea); Class 3 severe obesity due to excess calories with serious comorbidity and body mass index (BMI) of40.0 to 44.9 in adult ([facility]); BMI 40.0-44.9, adult ([facility])10/17/2024Patient Self-Triage [facility] [address] [facility] [place] [address] Mycsujit Kelly, Physician, 10/17/2024Travelfrom Last 3 Months Immunizations ImmunizationAdministration DatesNext Alma Delia Retana, adult03/22/1991,02/16/1991 Influenza, Madin Luz Canine Kidney, subunit, trivalent, injectable, contains veimrmlztrxc44/30/2025Influenza, injectable, MDCK, preservative free, durrntggckci17/13/2023,12/08/2021,01/07/2021,12/13/2019Influenza, trivalent, dwmemcgtks35/29/2025Moderna Bivalent Booster Qahzeknhznz51/22/2023fizer Purple Cap SARS-CoV-2 Hoyprcecalr70/29/2021,05/20/20205101QBKT-SZR-1 (COVID-19) vaccine, mRNA, spike protein, LNP, bivalent, preservative free, 30 mcg/0.3 mLdose, joana- sucrose mmfaefaztgz80/22/2023 Family History Medical HistoryRelationNameCommentsNo Known ProblemsBrotherCancerFatherBladder/ diabetesDiabetesFatherBladder/ diabetesHypertensionFatherBladder/ diabetes Clotting disorderMotherPulmonary blood clotPulmonary embolismMotherPulmonary blood clotNo Known ProblemsSisterRelationNameStatusCommentsBrotherFatherBladder/ diabetesAliveMotherPulmonary blood clotDeceasedSisterx2 Social History Tobacco UseTypesPacks/DayYears UsedDateSmoking Tobacco: HjsolhFyfhsvjjun477 03/15/1985 - 03/15/2021mokeless Tobacco: Never Tobacco Cessation:Counseling Given: Yes Alcohol UseStandard Drinks/WeekCommentsNever0 (1 standard drink = 0.6 oz pure alcohol)caffeine: 2-3 cups per day coffeePHQ-2AnswerDate RecordedPatient Health Questionnaire-2 Ehgcv0114CommentsUnknownSex and Gender InformationValueDate RecordedSex Assigned at TjctxFflhqa14/23/2023 4:09 PM EDT Legal AzfVmznhx61/15/2023 7:14 PM EDTGender IkerdmqcTvbjop47/23/2023 4:09 PM EDT Sexual OrientationNot on fileOccupationIndustryJob Start DateJob End Date disabledNot on fileNot on fileNot on file Last Filed Vital Signs Vital SignReadingTime TakenCommentsBlood Zavkgeum883/7809 2:07 PM EDT Nruog434212/01/2024 2:07 PM ZIAQasckinlzcl46.6 ??C (97.9 ??F)10/19/2023 4:24 PM EDTRespiratory Ukfs035412/12/2024 2:07 PM EDTOxygen Ceamdpyvas92%12/01/2024 2:07 PM EDTInhaled Oxygen Concentration--Jcwshg110 kg (257 lb)12/12/2024 2:07 PM EDT Dgtvay883.1 cm (5' 5 )12/12/2024 2:07 PM EDTBody Mass Index42.77012/12/2024 2:07 PM EDT Plan of Treatment DateTypeDepartmentCare Team (Latest Contact Info)Xidsdkukpup76/05/2025 2:30 PM ESTOffice Visit [facility] [address] [place] [address] Type 2 diabetes mellitus with diabetic polyneuropathy, without long-term current use of insulin (HCC) (Primary Dx); Essential hypertension; Metabolic dysfunction-associated steatotic liver disease (MASLD); Chronic insomnia; Polyneuropathy associated with underlying disease (HCC); Spinal stenosis of lumbar region without neurogenic claudication; Morbid obesity (CMS-HCC); BMI 40.0-44.9, adult ([facility])Health MaintenanceDue DateLast DoneCommentsCT Ubynkdmgiwwq1966FIT-DNA1966FIT1966FOBT1966Lung Cancer Screening Shared Decision Bwbwaq85 1966Medicare Annual Wellness (AWV) 1966 8070Yactvswapdczn1966Pneumococcal Vaccine: Pediatrics (0 to 5 Years) and At-Risk Patients (6 to 64 Years) (1 of 2 - PCV)1985Pap Smear1987 Cervical Cancer Granvyfsc61/15/1996HPV/Uxmqzx8201/28/19965284Hpptjphhb23/15/2023 2022, 10/31/2020, 06/22/2017, Additional history existsColonoscopy Colorectal Cancer Wwgzmlvip50/29/2024OVID-19 Vaccine ( season)/, 07/05/2021, 12/07/2020, Additional history existsInfluenza Vaccine (#1)/, 04/12/2024, 11/25/2022, Additional history existsDiabetes: Hemoglobin A1C/07/2024, 07/11/2024, 04/12/2024, Additional history existsDiabetes: Urine Protein Kkrjtmwxt04, 06/01/2023, 06/01/2022, Additional history exists Diabetes: Retinopathy Imyknjofh15, 06/01/2023, 06/13/2020, Additional history exists Procedures Procedure NamePriorityDate/TimeAssociated DiagnosisCommentsCT FOOT LEFT WO IV CJRISHBG16/09/2025 6:53 PM EDT CBC WITH AUTO KFRIJVAHCLBJNioucbs09/09/2025 11:20 AM EDT HEMOGLOBIN A1C WITH DTTCrkzkpj85/05/2025 1:52 PM EDT Type 2 diabetes mellitus with diabetic polyneuropathy, without long-term current use of insulin (HCC) COMPREHENSIVE METABOLIC BGGSCAzjgoar32/05/2025 1:52 PM EDT Type 2 diabetes mellitus with diabetic polyneuropathy, without long-term current use of insulin (HCC) CBC (INCLUDES DIFF/PLT)Vhhcdbm6910/17/2024 1:52 PM EDT Type 2 diabetes mellitus with diabetic polyneuropathy, without long-term current use of insulin (HCC) MICROALBUMIN / CREATININE URINE NOFIEZzcvnnh44/29/2025 3:34 PM EST Chronic kidney disease, stage 2 (mild) Essential hypertension DIABETIC RETINOPATHY SCREENING - OU - BOTH SEMXKalcqak40/18/2024 3:33 PM EDT Type 2 diabetes mellitus with diabetic polyneuropathy, without long-term current use of insulin (HCC) BI MAMMOGRAM SCREENING MMKCDQZJKKgujsdq78/15/2022 Type 2 diabetes mellitus with diabetic chronic kidney disease (HCC) 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, right leg (HCC) Chronic kidney disease, stage 2 (mild) Polyneuropathy, unspecified Hyperlipidemia, unspecified Hypothyroidism, unspecified Encounter for immunization Low back pain Personal history of transient ischemic attack (TIA), and cerebral infarction without residual deficits Fatty (change of) liver, not elsewhere classified Other specified symptoms and signs involving the circulatory and respiratory systems Major depressive disorder, single episode, moderate (HCC) Encounter for screening mammogram for malignant neoplasm of breast Spinal stenosis, lumbar region without neurogenic claudication OCNIDWOTGDPJpccgmp87/29/2014 from Last 3 Months or Most Recently Relevant to Health Maintenance Results * CT foot left wo IV contrast (10/21/2024 6:53 PM EDT)Anatomical Region LateralityModalityLower Extremities, FootLeftComputed TomographySpecimen (Source)Anatomical Location / LateralityCollection Method / VolumeCollection TimeReceived Time10/21/2024 6:53 PM EDT Impressions 10/21/2024 7:04 PM EDT ULCER SEEN ALONG THE DISTAL ASPECT OF THE FOOT AT THE LEVEL OF THE SECOND DIGIT WITHOUT SOFT TISSUE GAS OR BONY DESTRUCTION TO SUGGEST OSTEOMYELITIS. ? DISTAL AMPUTATION OF THE SECOND DIGIT. ? SCATTERED DEGENERATIVE CHANGE WITH PLANTAR SPURRING. ? Impression dictated by: Jason Mays Jr., D.O. ??10/21/2024 7:01 PM ? Dictation Location: RADIO-PC-18 ? Transcribed By: ? PWS ?10/21/24 190 ? Dictated By: ?Jason Mays Jr, DO ?10/21/24 1853 ? Signed By: <Electronically signed by Jason Mays Jr, DO in OV> ?10/21/24 1901 Narrative 10/21/2024 7:04 PM EDT [facility] ?[facility] [place] ?[address] ? [place] [address] ? CT Scan Report ? Signed ? Patient: Cathy Stark ?MR#: [id number] ?? 15 ? : 1965 ?Acct:[id number] ? Age/Sex: 59 / F ?ADM Date: 10/20/24 ? Loc: 3T ?Room: ??1W3297-9 ?Type: ADM IN ?? Attending Dr: Felisa Iglesias MD ?? Copies to: Felisa Iglesias MD ?? Ray Torres DPM ? Ordering Provider: Ray Torres DPM ?? Date of Service: 10/21/24 ?? CT/CT foot LT wo con: left foot ulcer/3rd toe suspected OM ? CT left foot WITHOUT CONTRAST WITH 3D RECONSTRUCTIONS: ? CLINICAL HISTORY: Left foot ulcer. ? COMPARISON: Left foot series dated 11/01/2024 ? TECHNIQUE: ??Spiral axial unenhanced images were obtained through the left foot. ??Sagittal, coronal and 3D volume-rendered reconstructions were also reviewed. ??This CT exam was performed using one or more following dose reduction techniques: Automated exposure control, adjustment of the mA and/or kV according to patient size, or use of iterative reconstruction technique. ? FINDINGS: ??An indication of the distal aspect of the second digit. ??Scattered degenerative changes without fracture or definitive CT evidence of osteomyelitis. ??Plantar spurring. ??Ulcer is seen along the distal aspect of the foot in the region of the second digit. ??No soft tissue gas. ??No fluid collection to suggest abscess. ??Mild soft tissue swelling. ? CT/CT foot LT wo con ?? Procedure Note Jason Mays Jr., DO - 10/21/2024 [facility] [place] [address] [place] [address] CT Scan Report Signed Patient: Cathy Stark AMR#: [id number] 15 : 1965Acct:[id number] Age/Sex: 59 / FADM Date: 10/20/24 Loc: Room: 8T3680-7Ghju: ADM IN Attending Dr: Felisa Iglesias MD Copies to: MD Ray Arshad DPM Ordering Provider: Ray Torres DPM Date of Service: 10/21/24 CT/CT foot LT wo con: left foot ulcer/3rd toe suspected OM CT left foot WITHOUT CONTRAST WITH 3D RECONSTRUCTIONS: CLINICAL HISTORY: Left foot ulcer. COMPARISON: Left foot series dated 11/01/2024 TECHNIQUE: Spiral axial unenhanced images were obtained through the leftfoot. Sagittal, coronal and 3D volume-rendered reconstructions were also reviewed. This CT examwas performed using one or more following dose reduction techniques: Automated exposure control,adjustment of the mA and/or kV according to patient size, or use of iterative reconstruction technique. FINDINGS: An indication of the distal aspect of the second digit.Scattered degenerative changes without fracture or definitive CT evidence of osteomyelitis. Plantarspurring. Ulcer is seen along the distal aspect of the foot in the region of the second digit. No softtissue gas. No fluid collection to suggest abscess. Mild soft tissue swelling. CT/CT foot LT wo con IMPRESSION: ULCER SEEN ALONG THE DISTAL ASPECT OF THE FOOT AT THE LEVEL OF THE SECONDDIGIT WITHOUT SOFT TISSUE GAS OR BONY DESTRUCTION TO SUGGEST OSTEOMYELITIS. DISTAL AMPUTATION OF THE SECOND DIGIT. SCATTERED DEGENERATIVE CHANGE WITH PLANTAR SPURRING. Impression dictated by: Jason Mays Jr., D.OValentina 10/21/2024 7:01 PM Dictation Location: RADIO-PC-18 Transcribed By: PWS 10/21/241900 Dictated By: Jason Mays Jr, DO 10/21/241852 Signed By: <Electronically signed by Jason Mays Jr, DO inOV> 10/21/241900 Authorizing ProviderResult TypeResult StatusNicholas A Brown DPMIMG CT PROCEDURESFinal Result * (ABNORMAL) CBC auto differential (10/21/2024 11:20 AM EDT)ComponentValueRef RangeTest MethodAnalysis TimePerformed AtPathologist KukzetxoaDHA62.0(H)3.8 - 11.6 [CFU]/mL10/21/2024 11:54 AM [facility] CtrUNCORRECTED WHITE BLOOD COUNT14.0(H)3.8 - 11.6 10*3/uL10/21/2024 11:54 AM [facility] CtrRBC5.44(H)3.60 - 5.00 10*6/uL10/21/2024 11:54 AM [facility] SukQCXXKDNIGG69.311.8 - 15.4 g/dL10/21/2024 11:54 AM [facility] YkeBXFALJCGNS35.2(H)34.0 - 46.4 %10/21/2024 11:54 AM [facility] JilHCH44.880 - 100 fL10/21/2024 11:54 AM [facility] XlnWKL27.124.7 - 34.3 pg10/21/2024 11:54 AM [facility] ZsvPCNI85.432.0 - 35.0 g/dL10/21/2024 11:54 AM [facility] CtrRED CELL DISTRIBUTION WIDTH, RDW18.3(H)11.9 - 15.3 %10/21/2024 11:54 AM [facility] CtrPLATELET ELPDK103 150 - 450 10*3/uL10/21/2024 11:54 AM [facility] CtrMEAN PLATELET VOLUME, MPV7.76.3 - 10.7 fL10/21/2024 11:54 AM [facility] CtrNEUTROPHILS, %74.5. %10/21/2024 11:54 AM [facility] CtrLYMPHOCYTES, %16.3. %10/21/2024 11:54 AM [facility] CtrMONOCYTE/MACROPHAGE, %7.5. %10/21/2024 11:54 AM [facility] CtrEOSINOPHILS, %1.1. %10/21/2024 11:54 AM [facility] CtrBASOPHILS, %0.6. %10/21/2024 11:54 AM [facility] CtrNRBC0.10 - 0.5 /100{WBC}10/21/2024 11:54 AM [facility] GuaNYHAQGQQSXW06.4(H)1.8 - 7.7 10*3/uL10/21/2024 11:[address] [facility] CtrLYMPHOCYTES2.31.00 - 4.8 10*3/uL10/21/2024 11:54 AM [facility] CtrMONOCYTES1.1(H)0.0 - 0.8 10*3/uL 10/21/2024 11:54 AM [facility] CtrEOSINOPHILS0.10.0 - 0.45 10*3/uL10/21/2024 11:54 AM [facility] CtrBASOPHILS0.10.0 - 0.2 10*3/uL10/21/2024 11:54 AM [facility] CtrSpecimen (Source)Anatomical Location / LateralityCollection Method / VolumeCollection TimeReceived TimeBlood (Blood)10/21/2024 11:20 AM EDT10/21/2024 11:37 AM EDT Narrative [facility] - 10/21/2024 11:54 AM EDT per shavon barnett all @2482 Authorizing ProviderResult TypeResult StatusNicsafia Torres DPMLAB BLOOD ORDERABLESFinal ResultPerforming OrganizationAddressCity/State/ZIP CodePhone Number [facility] [address] [place] [address], [facility] [address] [place] [address] * (ABNORMAL) Hemoglobin a1c with eag (10/17/2024 1:52 PM EDT)ComponentValueRef RangeTest MethodAnalysis TimePerformed AtPathologist EpxkwwhjlCjaI4Q75.5(H)4.8 - 5.6 %LABCORPComment: ? Prediabetes: 5.7 - 6.4 Diabetes: >6.4 Glycemic control for adults with diabetes: <7.0 Est Avg Gluc nOS380cx/dLLABCORPSpecimen (Source)Anatomical Location / Laterality Collection Method / VolumeCollection TimeReceived TimeBloodVenous blood specimen / Wasxkfo8510/17/2024 1:52 PM EDT10/17/2024 Narrative [facility] - 10/18/2024 6:07 AM EDT Performed at: [address] ??[id number] Hand Kiss Setter: Donny Cary PhD, Phone: ??[phone] Authorizing ProviderResult TypeResult StatusRobemy JACOB BLOOD ORDERABLES Final ResultPerforming OrganizationAddressCity/State/[facility] CodePhone Number [facility] * (ABNORMAL) CBC and differential (10/17/2024 1:52 PM EDT)ComponentValueRef RangeTest MethodAnalysis TimePerformed AtPathologist CpzauaxmjDAC01.5(H)3.4 - 10.8 x10E3/uLLABCORPRBC5.263.77 - 5.28 x10E6/pSSDBLOGLDcs73.811.1 - 15.9 g/dL AWPNPJYUuv26.1(H)34.0 - 46.6 %NRJVGPIZCN0375 - 97 cYYQORIDHUZI09.126.6 - 33.0 osIXSJNQAEWDE20.4(L)31.5 - 35.7 g/wIJTVKVXYIQJ81.2(H)11.7 - 15.4 %[facility] Drifnurza020170 - 450 x10E3/qAJTDVZBWLektdghkwpr29Czy Estab. %PCEPAANHaxyky08 Not Estab. %GPFDRDDDjwfmjnec0Sfg Estab. %GBQXOAKUcs0Dgl Estab. %[facility]ABCORPBasos1 Not Estab. %[facility]ABCORPNeutrophils Abs9.5(H)1.4 - 7.0 x10E3/uLLABCORPLymphs Abs3.7 (H)0.7 - 3.1 x10E3/uLLABCORPMonocytesAbs0.90.1 - 0.9 x10E3/uLLABCORPEos Abs0.2 0.0 - 0.4 x10E3/uLLABCORPBaso Abs0.10.0 - 0.2 x10E3/uLLABCORPImmature Frfejqnzeucc4Eyu Estab. %LABCORPImmature Grans Abs0.10.0 - 0.1 x10E3/uLLABCORP Hem CommentsRVERILABCORPSpecimen (Source)Anatomical Location / Laterality Collection Method / VolumeCollection TimeReceived TimeBloodVenous blood specimen / Rzpypkd1710/17/2024 1:52 PM EDT10/17/2024 Narrative [facility] - 10/18/2024 6:07 AM EDT Performed at: 01 - [place] [address], [address], [place], [place] ??[phone] Hand Kiss Setter: Ely Prieto MD, Phone: ??[phone] Authorizing ProviderResult TypeResult StatusRobemy Thrasher MDLAB BLOOD ORDERABLES Final ResultPerforming OrganizationAddressCity/State/ZIP CodePhone Number [facility] * (ABNORMAL) Comprehensive metabolic panel (10/17/2024 1:52 PM EDT)Component ValueRef RangeTest MethodAnalysis TimePerformed AtPathologist SignatureGlucose 223(H)70 - 99 mg/vKOMGZSVDZZE720 - 24 mg/dLLABCORPCreat1.08(H)0.57 - 1.00 mg/sOEWGOUKMSVMN74>59 mL/min/1.73LABCORPBUN/Creat Qhdno953 - 23LABCORPSodium 358092 - 144 mmol/[facility]ABCORPPotassium4.93.5 - 5.2 mmol/ODUHPELHMkdznfgk60160 - 106 mmol/[facility]ABCORPCarbon Epuaaxw1691 - 29 mmol/[facility]ABCORPCalcium8.78.7 - 10.2 mg/dLLABCORPProtein Total6.66.0 - 8.5 g/dLLABCORPAlbumin3.93.8 - 4.9 g/dL [facility]ABCORPGlobulin Total2.71.5 - 4.5 g/dLLABCORPBili Total0.20.0 - 1.2 mg/dL LABCORPAlk Xnasypitxzv6715 - 121 IU/RMXRNBIMCSY3423 - 59 IU/PTFCFKFERDY977 - 35 IU/LLABCORPSpecimen (Source)Anatomical Location / LateralityCollection Method / VolumeCollection TimeReceived TimeBloodVenous blood specimen / Zyqelyw1910/17/2024 1:52 PM EDT10/17/2024 Narrative [facility] - 10/18/2024 6:07 AM EDT Performed at: - [place] [address] [address] [facility], [address], [place], [place] ??[id number] Hand Kiss Setter: Ely Prieto MD, Phone: ??[phone] Authorizing ProviderResult TypeResult StatusRobemy Thrasher MDLAB BLOOD ORDERABLES Final ResultPerforming OrganizationAddressCity/State/[facility] CodePhone Number [facility] * Microalbumin / creatinine urine ratio (04/12/2024 3:34 PM EST)ComponentValue Ref RangeTest MethodAnalysis TimePerformed AtPathologist SignatureCreat Ur 216.3Not Estab. mg/dLLABCORPAlbumin Ur15.3Not Estab. ug/mLLABCORPAlb/Creat Ratio Urine70 - 29 mg/g creatLABCORPComment: ? Normal: ?0 - ??29 ? Moderately increased: 30 - 300 Severely increased: >300 Specimen (Source)Anatomical Location / LateralityCollection Method / Volume Collection TimeReceived TimeUrineUrine specimen obtained by clean catch procedure / Tjnbdtp1204/12/2024 3:34 PM EST04/12/2024 Narrative [facility] - 04/13/2024 8:09 AM EST Performed at: [address] ??[id number] Hand Kiss Setter: Donny Cary PhD, Phone: ??[phone] Authorizing ProviderResult TypeResult StatusPaulinajennifer Becky Guerra NPLAB URINE ORDERABLESFinal ResultPerforming OrganizationAddressCity/State/ZIP CodePhone Number [facility] * Diabetic Retinopathy Screening - OU - Both Eyes (07/01/2023 3:33 PM EDT) Anatomical RegionLateralityModalityHeadOther Narrative Authorizing ProviderResult TypeResult StatusCarl Thrasher MDOPHTH PHOTOGRAPHY Final Result * Bilateral screening mammogram (2022)Anatomical RegionLateralityModality BreastBilateralMammographySpecimen (Source)Anatomical Location / Laterality Collection Method / VolumeCollection TimeReceived Time Impressions 2022 12:00 AM EST BIRADS 1 : NEGATIVE, NORMAL INTERVAL FOLLOW UP FOLLOW-UP: 12 months DENSITY: Scattered MAMMOGRAPHY IS VERY IMPORTANT TO YOUR HEALTH. THE CURRENT [employer] GUIDELINES RECOMMENDS ANNUAL MAMMOGRAPHY BEGINNING AT AGE 41 THIS FACILITY USES A REMINDER SYSTEM TO ENSURE ALL PATIENTS RECEIVE REMINDER NOTIFICATIONS AT THE APPROPRIATE TIME BASED ON THE RECOMMENDATIONS OF THIS EXAM. Board Certified Radiologist. Accredited by the ACR and FDA. Report reported and signed by Glenn Sneed on 2022 1416 Narrative 2022 12:00 AM EST PERFORMED AT [facility] LOCATION:[address] CLINICAL HISTORY: Screening Mammogram COMPARISON: Priors from 2017 TECHNIQUE: 2D and 3D mammogram imaging of both breasts was performed. RESULT: DENSITY: There are scattered areas of fibroglandular density. There is no suspicious mass, asymmetry, architectural distortion, or calcification. No significant change since the prior mammograms. Procedure Note CONVERSION, GENERIC - 09/18/2022 PERFORMED AT [facility] LOCATION:[place] [id number] CLINICAL HISTORY: Screening Mammogram COMPARISON: Priors from 2017 TECHNIQUE: 2D and 3D mammogram imaging of both breasts was performed. RESULT: DENSITY: There are scattered areas of fibroglandular density. There is no suspicious mass, asymmetry, architectural distortion, or calcification. No significant change since the prior mammograms. IMPRESSION: BIRADS 1 : NEGATIVE, NORMAL INTERVAL FOLLOW UP FOLLOW-UP: 12 months DENSITY: Scattered MAMMOGRAPHY IS VERY IMPORTANT TO YOUR HEALTH. THE CURRENT [employer] GUIDELINES RECOMMENDS ANNUAL MAMMOGRAPHY BEGINNING AT AGE 41 THIS FACILITY USES A REMINDER SYSTEM TO ENSURE ALL PATIENTS RECEIVEREMINDER NOTIFICATIONS AT THE APPROPRIATE TIME BASED ON THE RECOMMENDATIONS OF THIS EXAM. Board Certified Radiologist. Accredited by the ACR and FDA. Report reported and signed by Glenn Joyner on 2022 1416 Authorizing ProviderResult TypeResult StatusCarl Thrasher MDIMG BI PROCEDURES Final Result * Colonoscopy (04/12/2013)Anatomical RegionLateralityModalityEndoscopySpecimen (Source)Anatomical Location / LateralityCollection Method / VolumeCollection TimeReceived Time04/12/2013 Narrative 04/12/2013 12:00 AM EST PERFORMED AT [facility] LOCATION:[place] [address] Procedure Note CONVERSION, GENERIC - 07/30/2022 PERFORMED AT [facility] LOCATION:[place] [address] Authorizing ProviderResult TypeResult StatusCarl Thrasher MDENDOSCOPY PROCEDURE ORDERABLESFinal Result from Last 3 Months or Most Recently Relevant to Health Maintenance Insurance Care Teams Team MemberRelationshipSpecialtyStart DateEnd Carl Thrasher MD [address] [place] [address] PCP - GeneralInternal Medicine08/11/22 Kanu Torres DPM [address] [place] [address] Referring PhysicianPodiatry09/03/22 Zaid Mon MD [address] [place] [id number] Consulting PhysicianVascular Surgery09/03/22 [facility]09/21/23
--- OUTSIDE RECORDS SUMMARY | 2025-01-17 12:24 | XMS_ITS | CCD ---
Author Organization [facility] Inform ion Partnership [facility] Care Team Providers Care Side Panel Hanger Name Role Phone MATILDE LOYOLA Admitting Unavailable MATILDE LOYOLA Attending Unavailable JARVIS THRASHER Primary Care Unavailable MATILDE LOYOLA Consulting Unavailable Unavailable Primary Care Provider Unavaildomingo e Zaid Mon Unavailable Edith Scott Unavailable MD Jarvis Thrasher Primary Care Provider DO Yung David Attending Provider DO Chino Peraza Emergency Provider DO Ankur Mahan Emergency Provider [phone] MD Elise Marie Admit Provider [phone] Ashley, DPM Chichi Other Provider MD Karsten Vega Other Provider [phone] DO Adithya Rm Attending Provider [phone] MD Zaid Mon Attending Provider [phone] MD Zaid Mon Admit Provider [phone] LUPE Lin Other Provider Unavailable LUPE Wesley Other Provider Unavailable LUPE Chapin Other Provider Unavailable LUPE Yang Other Provider Unavailable LUPE Haddad Other Provider Unavailable LUPE Penn Other Provider Unavailable MD Malgorzata Kaplan Other Provider MD Adria Beckett Other Provider NAOMI Duran Other Provider DO Moises Venegas Other Provider [phone] MD Trung Cruz Other Provider DO Adithya Rm Other Provider MD Dean Rodriguez Other Provider MD Elise Marie Other Provider Chace ANP-BC Valerie Other Provider MD Fredy Patricia Other Provider MD Aba Griffith Other Provider MD Yue Mendez Other Provider MD Hafsa Ivy Other Provider MD Rafat Duron Other Provider MD Juliane Campbell Other Provider MD Fernandez Ramirez Other Provider Michelle, ROAD ROLLER OPERATOR HOT MIX-C Sanna Landon Other Provider MD Ryland Liu Other Provider MD Maximo Patel Other Provider MD Steph Fu Other Provider MD Clyde Luna Other Provider DO Hailee Berg Other Provider Al MD Raj Ashby Other Provider DO Eugene Mcdonough Other Provider [phone] NAOMI Rodriguez Other Provider DO Calvin Underwood Other Provider [phone] MD Rodney Marti Other Provider Bharti, LUPE Sigala Other Provider Unavailable DO Robles Owen Emergency Provider MD Raj Vasquez Admit Provider MD Zaid Mon Other Provider MD Dean Rodriguez Attending Provider DO Zaid Fan Emergency Provider MD Rodney Bishop Admit Provider MD Rodney Marti Attending Provider [phone] MD Rolando Sykes Other Provider BECKIE Dsouza Sravani Other Provider Unavaildomingo e BECKIE Sanchez Alma Other Provider Unavailable GENEVA Scott-C Edith Pena Other Provider MD Sai Obregon Other Provider TERESA Torres Attending Provider MD Jarvis Thrasher Primary Care Provider [phone] DO Chino Peraza M Emergency Provider [phone] DO Ankur Mahan M Emergency Provider MD Elise Marie Admit Provider [phone] TERESA Ramirez Other Provider [phone] MD Karsetn Vega Other Provider DO Adithya Rm Attending Provider MD Zaid Mon Attending Provider MD Zaid Mon Admit Provider LUPE Lin Other Provider Unavailable LUPE Wesley Other Provider Unavailable LUPE Chapin Other Provider Unavailable LUPE Yang Other Provider Unavailable LUPE Haddad Other Provider Unavailable LUPE Penn Other Provider Unavailable MD Malgorzata Kaplan Other Provider MD Adria Beckett Other Provider NAOMI Duran Other Provider [phone] DO Moises Venegas Other Provider MD Trung Cruz Other Provider DO Adithya Rm Other Provider [phone] MD Dean Rodriguez Other Provider MD Elise Marie Other Provider Chace, ANP-BC Valerie Other Provider MD Fredy Patricia Other Provider MD Aba Griffith Other Provider MD Yue Mendez Other Provider MD Hafsa Ivy Other Provider MD Rafat Duron Other Provider MD Juliane Campbell Other Provider MD Fernandez Ramirez Other Provider Michelle ROAD ROLLER OPERATOR HOT MIX-C Sanna Landon Other Provider MD Ryland Liu [...] Provider Unavailable DO Robles Owen Emergency Provider [phone] MD Raj Vasquez Admit Provider MD Zaid Mon Other Provider MD Dean Rodriguez Attending Provider DO Zaid Fan Emergency Provider MD Rodney Bishop Admit Provider MD Rodney Marti Attending Provider MD Rolando Sykes Other Provider BECKIE Dsouza Other Provider Unavaildomingo e BECKIE Sanchez Other Provider Unavailable GINA Scott Other Provider [phone] MD Sai Obregon Other Provider [phone] TERESA Torres Attending Provider [phone] TERESA Torres Admit Provider DO Zackary Rivera Other Provider [phone] Javed Snyder Unavailable GENEVA Arias Other Provider GINA Ramirez Other Provider MD Javed Snyder S Other Provider MD Rafat Sanders Other Provider MD Jarvis Thrasher Primary Care Provider [phone] MD Jarvis Thrasher Attending Provider DO Robert Larsen A Emergency Provider DO Hailee Berg Admit Provider TERESA Torres Other Provider MD Fredy Patricia Attending Provider MD Jarvis Thrasher Primary Care Provider MD Zaid Mon Attending Provider MD Karsten Vega Other Provider DO Ankur Mahan Emergency Provider DO Jose Owen Other Provider DO Rolando Vicente Other Provider MD Jarvis Thrasher Primary Care Provider DO Robles Owen Emergency Provider Al Salti MD Raj Oscar Admit Provider MD Zaid Mon Other Provider MD Dean Rodriguez Attending Provider DO Zaid Fan Emergency Provider JohnnyMD Rodney Watkins Admit Provider MD Rodney Marti Attending Provider MD Rolando Sykes Other Provider BECKIE Dsouza Sravani Other Provider Unavailabl e BECKIE Sanchez Alma Other Provider Unavailable MD Karsten Vega Other Provider [phone] GENEVA Scott-C Edith Pena Other Provider MD [facility] Other Provider TERESA Torres Attending Provider [phone] TERESA Torres Admit Provider [phone] LUPE Lin Other Provider Unavailable LUPE Wesley Other Provider Unavailable Tavares RN Maryse Other Provider Unavailable LUPE Yang Other Provider Unavailable LUPE Haddad Other Provider Unavailable LUPE Penn Other Provider Unavailable MD Malgorzata Kaplan Other Provider MD Adria Beckett Other Provider Dials, TESTING ENGINEER Kate Archuleta Other Provider DO Moises Venegas [...] Al MD Raj Ashby Other Provider DO Ceasar Eugene R Other Provider DO Zackary Rivera Other Provider NAOMI Rodriguez Other Provider DO Calvin Underwood Other Provider [phone] MD Rolo Martiayramandeep M Other Provider LUPE Hay Other Provider Unavailable GENEVA Arias Other Provider GINA Ramirez Other Provider MD Javed Snyder Other Provider MD Rafat Sanders Other Provider MD Jarvis Thrasher Attending Provider DO Robert Larsen Emergency Provider DO Hailee Berg Admit Provider TERESA Torres Other Provider [phone] MD Fredy Patricia Attending Provider Kalli DO Ankur Archuleta Emergency Provider DO Rolando Vicente Other Provider DO Jose Owen Other Provider [phone] DO Yung David Attending Provider MD Jarvis Thrasher Primary Care Provider DO Robert Larsen Emergency Provider DO Hailee Berg Admit Provider MD Roalndo Sykes Other Provider TERESA Torres RValentina Other Provider MD Zaid Mon Other Provider MD Fredy Patricia Attending Provider Kalli DO Ankur Archuleta Emergency Provider TERESA Torres Kanu RValentina Attending Provider [phone] TERESA Torres Kanu R. Admit Provider LUPE Lin Other Provider Unavailable LUPE Wesley Other Provider Unavailable Tavares RN Maryse Other Provider Unavailable LUPE Yang Other Provider Unavailable LUPE Haddad Other Provider Unavailable LUPE Penn Other Provider Unavailable MD Malgorzata Kaplan Other Provider MD Adria Beckett Other Provider Dials, TESTING ENGINEER Kate Archuleta Other Provider DO Moises Venegas Other Provider MD Trung Cruz Other Provider DO Adithya Rm Other Provider [phone] MD Dean Rodriguez Other Provider MD Elise Marie Other Provider [phone] Chace, ANP-BC Valerie Other Provider [phone] MD Fredy Patricia Other Provider MD Aba Griffith Other Provider MD Yue Mendez Other Provider MD Hafsa Ivy Other Provider DO Rolando Vicente Other Provider MD Rafat Duron Other Provider MD Juliane Campbell Other Provider MD Fernandez Ramirez Other Provider GENEVA Martinez-Venus Landon Other Provider MD Ryland Liu Other Provider MD Maximo Patel Other Provider MD Steph Fu Other Provider MD Clyde Luna Other Provider DO Hailee Berg Other Provider Al MD Raj Ashby Other Provider DO Eugene Mcdonough Other Provider DO Zackary Rivera Other Provider NAOMI Rodriguez Other Provider DO Calvin Underwood Other Provider [phone] MD Rodney Marti Other Provider Bharti, LUPE Sigala Other Provider Unavailable DO Jose Owen Other Provider DO Yung David Attending Provider MD Jarvis Thrasher Primary Care Provider TERESA Torres Attending Provider MD Zaid Mon Attending Provider MD Jarvis Thrasher Primary Care Provider MD Zaid Mon Attending Provider TERESA Torres Attending Provider MD Jarvis Thrasher Primary Care Provider MD Zaid Mon Attending Provider NO FAMILY, PHYSICIAN Primary Care Provider Unava ilable TERESA Torres Attending Provider MD Zaid Mon Attending Provider MD Jarvis Thrasher Primary Care Provider NON STAFF Primary Care Provider NAOMI Rivera Emergency Provider Unavailable Primary Care Provider TERESA Phelan Attending Provider MD Jarvis Thrasher Primary Care Provider GINA Scott Attending Provider MD Jarvis Thrasher Primary Care Provider NAOMI Martínez Emergency Provider DO Chino Peraza Emergency Provider Wilmore Casa Garrett Admit Provider [facility] Casa Garrett Attending Provider MD Rolando Sykes Other Provider TERESA Torres Other Provider MD Zaid Mon Other Provider MD Ryland Liu Attending Provider MD Jarvis Thrasher Primary Care Provider MD Jarvis Thrasher Referring Provider NAOMI Toro Attending Provider MD Jarvis Thrasher Attending Provider MD Jarvis Thrasher Referring Provider NAOMI Toro Attending Provider TERESA Torres Attending Provider [phone] MD Jarvis Thrasher Referring Provider NAOMI Toro Attending Provider Jarvis Thrasher MD Primary Care Provider Melissa ALEMANM, Kanu Pena Unavailable Yaa VALENTINO, Zaid Unavailable [phone] MD Jarvis Thrasher Primary Care Provider MD Jarvis Thrasher Referring Provider NAOMI Toro Attending Provider Melissa, TERESA Corley Attending Provider MD Jarvis Thrasher Attending Provider [phone] MD Jarvis Thrasher Primary Care Provider [phone] TERESA Torres Attending Provider [phone] MD Ayan Goldman Emergency Provider DO Calvin Underwood Admit Provider DO Calvin Underwood Attending Provider Jarvis Thrasher MD Unavailable Philip VALENTINO, Jarvis Primary Care Provider Inderjit Titus MD Attending Provider Philip VALENTINO, Jarvis Primary Care Provider Inderjit Titus MD Attending Provider Zaid Mon MD Unavailable [phone] Philip VALENTINO, Jarvis Primary Care Provider [phone] Brian MOORE, Ray Lawton Attending Provider Chino Peraza DO Emergency Provider Glenn Bales MD Admit Provider Glenn Bales MD Attending Provider Harris VALENTINO, Felisa Other Provider Kenan Cooley DO Other Provider Brian MOORE, Ray Lawton Other Provider Zaid Mon MD Attending Provider Zaid Mon MD Other Provider [phone] Rolando Sykes MD Other Provider CLAUDY SORIANO Attending Unavailable HILL, JARVIS Tadeo Referring Unavailable BROWN, RAY A Attending Unavailable EDITH SCOTT Referring Unavailable BROWN, RAY A Attending Unavailable BROWN, RAY A Attending Unavailable BROWN, RAY A Attending Unavailable BROWN, RAY A Attending Unavailable BROWN, RAY A Attending Unavailable HILL, JARVIS L Attending Unavailable BROWN, RAY A Attending Unavailable BROWN, RAY A Attending Unavailable BROWN, RAY A Attending Unavailable BROWN, RAY A Attending Unavailable BROWN, RAY A Attending Unavailable HILL, JARVIS L Attending Unavailable HILL, JARVIS L Referring Unavailable MAVIS WILD Attending Unavailable BROWN, RAY A Attending Unavailable BROWN, RAY A Attending Unavailable BROWN, RAY A Attending Unavailable Philip VALENTINO, Jarvis Attending Provider [phone] Jarvis Thrasher MD Referring Provider Philip VALENTINO, Jarvis Primary Care Provider Brian DPM, Ray Lawton Attending Provider Inderjit Titus MD Attending Provider [phone] Richie Rodríguez PA-C Emergency Provider [phone] Rahel Ro MD Admit Provider Rahel Ro MD Attending Provider Kvng Valdovinos MD Other Provider Jarvis Thrasher Primary Care Unavailable Jarvis Thrasher Attending Unavailable Jarvis Thrasher Referring Unavailable Jarvis Thrasher Admitting Unavailable Philip, Jarvis Primary Care Unavailable Kvng Valdovinos Attending Unavailable Rahel Ro Admitting Unavailable Ray Hays Consulting Unavailable Zaid Mon Consulting Unavaildomingo e Jarvis Thrasher Primary Care Unavailable Glenn Bales Admitting Unavailable Kenan Cooley Consulting Unavailable Luis Cunha Attending Unavailable Ray Hays Consulting Unavailable Zaid Mon Consulting UnavailRolando Harvey Unavailable Inderjit Titus Admitting Unavailable Inderjit Titus Attending Unavailable Jarvis Trhasher Primary Care Unavailable Jarvis Thrasher Primary Care Unavailable Ray Hays Attending Unavailable Ray Hays Admitting Unavailable Jarvis Thrasher Primary Care Unavailable Ray Hays Attending Unavailable Ray Hays Admitting Unavailable Zaid Mon MD Unavailable [phone] REFERRAL, SELF Referring Unavailable Dannie Moctezuma Attending Unavailable SANDRA GOETZ Attending Unavailable Allergies Allergy ClassificationReported Allergen(s)Allergy TypeDate of OnsetReaction(s) Facility (18 sources)Angiotensin Converting Enzyme (Keegan) InhibitorsPropensity to adverse reactionsCoHCA [facility] Other (20 sources)metFORMIN; Translations: [METFORMIN]Drug Qroeias89-40-5817TW Upset, Other: See CommentsAultman Orrville [facility] Work Phone: (20 sources)pioglitazone; Translations: [PIOGLITAZONE]Drug Bmvlygk37-05-8073 Cough, Other: See CommentsAultman Orrville Hospital Work Phone: (20 sources)predniSONE; Translations: [PREDNISONE]Drug Ldjdbaf58-43-5420Kmhyo: See Comments, UnknownAultman Orrville Hospital Work Phone: (18 sources)Unknown - Has Allergy Not Sure WhatPropensity to adverse reactions [facility]el[employer] Other (20 sources)HYDROcodone; Translations: [HYDROCODONE]Drug Qmnmram09-19-0000Ryhfff Status ChangeUniversity Hospitals Ahuja Medical CenterComment on above: weird dreams cold sweats (20 sources)Steroid InjectionAllergy to maavsyhtb03-91-7548KnkvujwpBdukedfze Regional Medical CenterComment on above:Pt reports swelling at injection site after steroid injection in lumbar spine (20 sources)metFORMINDrug Iqhemjr91-84-6460QB intoleranceMarion MyFeelBack Other (9 sources)Angiotensin-converting enzyme inhibitor agent; Translations: [KEEGAN INHIBITORS]Drug Gheopwb14-52-4678[facility]jsZfgvbgdcy Clinic Work Phone: (3 sources)HMG-CoA reductase inhibitor; Translations: [SPFSORC-AZZ-DCE REDUCTASE INHIBITORS]Drug Uskvdxi50-74-0752Wxgms: See CommentsAultman Orrville Hospital Work Phone: (19 sources)Acetaminophen / HYDROcodoneDrug Rygzoie77-71-5623CglrwoeOUTK Healthcare Work Phone: (20 sources)Angiotensin-converting enzyme inhibitor agentDrug Taeibmt08-02-9123 [facility] (20 sources)HMG-CoA reductase inhibitorDrug Rqjsskx06-99-7571IyivsPMDJ Healthcare (20 sources)Semaglutide(0.25 Or 0.5mg-Dos)Propensity to adverse reactions 42-36-6244WL intoleranceOzarks Medical Center Medications Current Medications MedicationDrug Class(es)DatesSig (Normalized)Sig (Original)acetaminophen 325 mg / oxyCODONE hydrochloride 5 mg oral tablet (20 sources)Opioid AgonistStart: 04-05-2023 End: 54-58-6204duzh 1-2 tablets by mouth every six hours for painoxyCODONE- acetaminophen (Percocet) 5-325 MG tablet Indications: Chronic bilateral low back pain without sciatica Take 1-2 tablets by mouth every 6 (six) hours if needed for severe pain 240 tablet 0 04/05/2023 05/05/2023 ActiveStart: 31-72-5671myjk 1 tablet by mouth every four to six hours as needed for painStart: 12-18-2021 End: 82-04-2506Qmkxabpgt-Acetaminophen 5-325 mg tablet Discontinued TAB January 06, 2022 12:00am January 06, 2022 6:37pmStart: 97-58-4788frlo 1 tablet by mouth every six hoursoxyCODONE-Acetaminophen 5-325 MG 1 tablet as needed Orally every 6 hrs for 3 days Oct, ActiveStart: 09-27-2021 End: 66-11-0873qolt 3 tablets by mouth three times daily as needed for pain Oxycodone-Acetaminophen (Percocet) 5-325 mg tablet Discontinued 3 TAB PO Three times daily as needed for Pain September 27, 2021 2:17pm October 09, 2021 10:12am Start: 11-18-2017 End: 40-67-0770Bvcau: 05-17-2017 End: 32-75-2204wurd 1 tablet by mouth every four to six hours as needed for pain Oxycodone-Acetaminophen (Percocet) 5-325 mg tablet Discontinued 1 - 2 TAB PO EVERY 4-6 HOURS as needed for Pain 30 0 November 18, 2017 September 27, 2021 2:17pm Postoperative pain of extremity Carpal tunnel syndrome Cubital tunnel syndrome Other acute postprocedural pain Carpal tunnel syndrome, unspecified upper limb Lesion of ulnar nerve, unspecified upper [id number] 200 actuat albuterol 0.09 mg/actuat metered dose inhaler (20 sources)beta2-Adrenergic AgonistStart: 01-05-2024 End: 22-91-8069zuhq 2 puff(s) by inhalation every four hours for wheezing albuterol HFA (Ventolin HFA) 90 mcg/act inhaler Indications: SOB (shortness of breath) Inhale 2 puffs every 4 (four) hours if needed for wheezing or shortness of breath 8 g 3 12/01/2024 Activeamitriptyline hydrochloride 50 mg oral tablet (20 sources)Tricyclic AntidepressantStart: 65-12-8269ptzg 1 tablet by mouth at bedtimeamitriptyline (Elavil) 50 MG tablet Indications: Moderate major depression (HCC) Take 1 tablet (50 mg) by mouth at bedtime 90 tablet 3 06/09/2024 ActiveStart: 94-60-2510iikn 1 tablet by mouth at bedtimeamitriptyline (Elavil) 50 MG tablet Indications: Moderate major depression (CMS/HCC) Take 1 tablet (50 mg) by mouth at bedtime 30 tablet 9 05/29/2024 ActiveStart: 03-74-5702cepx 1 tablet by mouth at bedtimeamitriptyline (Elavil) 50 MG tablet Indications: Moderate major depression (CMS/HCC) TAKE 1 TABLET BY MOUTH AT BEDTIME 30 tablet 9 08/19/2023 ActiveStart: 23-42-7703kabc 1 tablet by mouth at bedtimeamitriptyline (Elavil) 50 MG tablet Indications: Moderate major depression (CMS/HCC) TAKE 1 TABLET BY MOUTH AT BEDTIME 30 tablet 9 12/02/2022 ActiveStart: 46-06-5690rlnn 2 tablets by mouth once daily at bedtime as needed Start: 25-87-0604dwnx 50 mg by mouth once daily at bedtimeAmitriptyline Active 50 MG PO Daily at bedtime January 21, 2021 1:00amStart: 23-26-3406fxmc 1 tablet by mouth once daily at bedtimeamitriptyline (ELAVIL) 25 mg tablet Take 25 mg by mouth daily at bedtime. 0 06/09/2021 ActiveComment on above:Take 25 mg by mouth daily at bedtime.aspirin 81 mg oral tablet (20 sources)Platelet Aggregation Inhibitor, Nonsteroidal Anti-inflammatory Drug Start: 64-47-4021agga 1 tablet by mouth once dailyStart: 97-20-7454ZRRJQWP 81 MG chewable tablet 1 (one) time each day at the same time. 01/22/2021 ActiveStart: 01-22-2021 End: 00-39-4280bcnj 1 tablet by mouth once daily in the morningAspirin 81 mg tablet,delayed release (DR/EC) Discontinued 81 MG PO Every morning May 02, 2021 4:59pm October 20, 2024 3:13am PVDStart: 12-23-2016 End: 17-25-8412xwyv 1 tablet by mouth once dailyAspirin 81 mg tablet,delayed release (DR/EC) Discontinued 81 MG PO Daily 30 0 December 23, 2016 12:00am November 18, 2017 11:25amBaby Aspirin ActiveComment on above:81 mg once daily. atorvastatin 80 mg oral tablet (20 sources)HMG-CoA Reductase InhibitorStart: 78-02-5933vixe 1 tablet by mouth once dailyatorvastatin (Lipitor) 80 MG tablet Indications: Pure hypercholesterolemia TAKE ONE TABLET BY MOUTHDAILY AT 5PM 90 tablet 3 09/01/2024 ActiveStart: 04-12-2024 End: 69-04-0803yjad 1 tablet by mouth once dailyStart: 03-06-2024 End: 05-00-1079rfgi 1 tablet by mouth once dailyatorvastatin (Lipitor) 40 MG tablet Indications: Hyperlipidemia, unspecified (CMS/HCC) , Pure hyperc holesterolemia (CMS/HCC) TAKE 1 TABLET BY MOUTH ONCE DAILY 90 tablet 3 03/06/2024 04/12/2024 Discontinued (Reorder)Start: 12-62-4789hwgm 1 tablet by mouth once dailyatorvastatin (Lipitor) 40 MG tablet Indications: Pure hypercholesterolemia (CMS/HCC) , Hyperlipidemia, unspecified (CMS/HCC) Take 1 tablet (40 mg) by mouth Daily 90 tablet 3 06/01/2023 ActiveStart: 86-61-5868ttfz 1 tablet by mouth once dailyatorvastatin (Lipitor) 40 MG tablet Indications: Hyperlipidemia, unspecified (CMS/HCC) TAKE 1 TABLET BY MOUTH ONCE DAILY 90 tablet 9 12/02/2022 ActiveStart: 10-17-2021 End: 10-17-5941fgtf 2 tablets by mouth once daily at bedtimeAtorvastatin (Lipitor) 20 mg tablet Discontinued 40 MG PO Daily at bedtime December 26, 2021 8:45pm May 25, 2024 10:44am hyperlipidemiaStart: 43-64-5445pmpl 2 tablets by mouth once daily at bedtimeAtorvastatin (Lipitor) 20 mg tablet Active 40 MG PO Daily at bedtime October 17, 2021 1:15pmStart: 86-70-8654lcoj 2 tablets by mouth once daily at bedtimeAtorvastatin (Lipitor) 20 mg tablet Active 40 MG PO Daily at bedtime October 17, 2021 1:15pmStart: 01-22-2021 End: 08-50-9627aupc 1 tablet by mouth once daily at bedtimeAtorvastatin (Lipitor) 20 mg tablet Discontinued 20 MG PO Daily at bedtime May 02, 2021 4:59pm October 17, 2021 2:58pm hyperlipidemiaStart: 01-22-2021 End: 66-40-0414yuxw 2 tablets by mouth once dailyatorvastatin (LIPITOR) 20 mg tablet Take 40 mg by mouth once daily. 0 06/09/2021 ActiveStart: 01-18-2017 End: 69-27-8921myde 1 tablet by mouth once dailyAtorvastatin 20 mg tablet Discontinued 20 MG PO Daily January 18, 2017 1:00am November 18, 201711:26am Start: 01-18-2017 End: 68-27-5025Tjlkbyw on above:Take 20 mg by mouth once daily.Take 40 mg by mouth once daily.atropine sulfate 0.025 mg / diphenoxylate hydrochloride 2.5 mg oral tablet (15 sources)Anticholinergic, Cholinergic Muscarinic Antagonist, Antidiarrheal Start: 34-95-2032qfom 1 tablet by mouth four times daily as needed for diarrhea diphenoxylate-atropine (Lomotil) 2.5-0.025 MG tablet Indications: Diarrhea, unspecified type Take 1tablet by mouth 4 (four) times a day as needed for diarrhea 30 tablet 10/25/2024 Activecholecalciferol 0.025 mg oral tablet (20 sources)Vitamin Dtake 1 tablet by mouth once dailycholecalciferol (Vitamin D-3) 25 MCG tablet Take 25 mcg by mouth Daily Activeclopidogrel 75 mg oral tablet (20 sources)P2Y12 Platelet InhibitorStart: 93-74-2678wdin 1 tablet by mouth once dailyclopidogrel (Plavix) 75 MG tablet Indications: History of stroke without residual deficits , Hyperlipidemia, unspecified Take 1 tablet (75 mg) by mouth Daily 90 tablet 3 05/29/2024 ActiveStart: 01-22-2021 End: 28-38-8765jgqx 1 tablet by mouth once daily in the morningComment on above: Take 75 mg by mouth once daily.Continuous Glucose Sensor (FreeStyle Osmin 3 Plus Sensor) [facility] [place] (15 sources)Start: 23-79-5865Szckmamnsd Glucose Sensor (FreeStyle Osmin 3 Plus Sensor) [facility] [place] Indications: Type 2 diabetes mellitus with diabetic polyneuropathy, without long-term current use of insulin (HCC) 1 Device Every 15 Days 2 each 3 12/19/2024 ActiveStart: 57-04-3177Mpygkjxslb Glucose Sensor (FreeStyle Osmin 3 Plus Sensor) [facility] [place] Indications: Type 2 diabetes mellitus with diabetic polyneuropathy, without long-term current use of insulin (HCC) 1 Device Every 15 Days 2 each 3 10/23/2024 Activecyclobenzaprine hydrochloride 10 mg oral tablet (20 sources)Muscle RelaxantStart: 57-07-8176gwvpuaumdcwfeny (Flexeril) 10 MG tablet Indications: Spinal stenosis, lumbar region without neurogenic claudication Take 1 tablet (10 mg) by mouth as needed at bedtime for muscle spasms 90 tablet 3 05/29/2024 ActiveStart: 46-10-8988eipm 1 tablet by mouth at bedtime as neededcyclobenzaprine (Flexeril) 10 MG tablet Indications: Spinal stenosis, lumbar region without neurogenic claudication TAKE 1 TABLET BY MOUTH AT BEDTIME NEEDED 90 tablet 3 08/19/2023 ActiveStart: 04-13-7116eibi 1 tablet by mouth once daily at bedtime as neededcyclobenzaprine (Flexeril) 10 MG tablet Indications: Spinal stenosis, lumbar region without neurogenic claudication TAKE 1 TABLET BY MOUTH AT BEDTIME ONCE DAILY NEEDED 30 tablet 9 12/02/2022 Active Start: 05-02-2021 End: 59-48-8299xysw 2 tablets by mouth once daily at bedtime as needed for muscle spasmsCyclobenzaprine 5 mg tablet Discontinued 10 MG PO Daily at bedtime as needed for Muscle Spasm May 02, 2021 1:00am October 20, 2024 3:14am Start: 69-99-0902vlxf 10 mg by mouth once daily at bedtimeCyclobenzaprine Active 10 MG PO Daily at bedtime May 02, 2021 1:00amComment on above:TAKE 1 TABLET BY MOUTH AT BEDTIME DAILY NEEDEDDULoxetine 30 mg delayed release oral capsule (20 sources)Serotonin and Norepinephrine Reuptake InhibitorStart: 88-45-8126sduv 1 capsule by mouth once dailyDULoxetine (Cymbalta) [address] capsule Indications: Moderate major depression (HCC) Take 1 capsule (30 mg) by mouth Daily 90 capsule 3 05/29/2024 ActiveStart: 11-04-2021 End: 66-66-0157lwap 1 capsule by mouth once dailyDuloxetine 30 mg capsule,delayed release(DR/EC) Discontinued 30 MG PO Daily November 04, 2021 12:00am December 09, 2021 4:51pm On Hold: Resume on 12/21/21. Hold this medication while your are taking the new antibiotics Linezolid due to severe interaction between both and risk for serotonin syndromeStart: 59-22-5333mmqm 30 mg by mouth once dailyDuloxetine Active 30 MG PO Daily November 04, 2021 12:00am Start: 27-71-0321ildo 30 mg by mouth once dailyDuloxetine Active 30 MG PO Daily November 04, 2021 12:00amStart: 65-70-7772jdrr 30 mg by mouth once daily Duloxetine Active 30 MG PO Daily November 04, 2021 12:00amStart: 63-60-9522qypg 30 mg by mouth once dailyDuloxetine Active 30 MG PO Daily November 04, 2021 12:00amStart: 62-23-8854ywyk 1 capsule by mouth once dailyDULoxetine (CYMBALTA) 30 mg capsule Take 30 mg by mouth once daily. 0 08/20/2021 ActiveComment on above:Take 30 mg by mouth once daily.empagliflozin 25 mg oral tablet (20 sources)Sodium-Glucose Cotransporter 2 InhibitorStart: 07-11-2024 End: 65-04-2210bjeq 1 tablet by mouth once dailyStart: 04-12-2024 End: 26-12-9123gkrd 1 tablet by mouth once dailyempagliflozin (Jardiance) 10 MG Indications: Type 2 diabetes mellitus with diabetic polyneuropathy,without long- term current use of insulin ([facility]) Take 1 tablet (10 mg) by mouth Daily 30 tablet 07/11/2024 DiscontinuedFlonase 50 MCG/ACT (2 sources)take 2 spray(s) nasal route once daily as neededFlonase 50 MCG/ACT inhale 2 spray by Intranasal route every day in each nostril prn Nasal *please review for potential _update for e-prescription and drug interaction check* Activefluticasone propionate 0.05 mg/actuat metered dose nasal spray (20 sources)CorticosteroidStart: 08-03-2024 End: 65-82-8007tbla 2 spray(s) nasal route once daily as neededfluticasone (Flonase) 50 MCG/ACT nasal spray Indications: Chronic pansinusitis INSTILL 2 SPRAYS IN EACH NOSTRIL DAILY NEEDED 16 g 11 12/01/2024 ActiveStart: 39-62-0868dgwk 2 spray(s) nasal route once daily as needed for rhinitis fluticasone (Flonase) 50 MCG/ACT nasal spray Indications: Chronic pansinusitis Administer 2 sprays into each nostril Daily as needed for rhinitis Shake gently. Before first use, prime pump. After use, clean tip and replace cap. 16 g 3 04/12/2024 ActiveStart: 08-19-2022 End: 15-83-1207dtot 2 spray(s) nasal route once daily as neededfluticasone (Flonase) 50 MCG/ACT nasal spray Indications: Chronic pansinusitis instill 2 (TWO) sprays IN EACH NOSTRIL DAILY NEEDED 16 g 3 08/19/2022 04/12/2024 Discontinued (Reorder)Start: 40-72-9644mdcd 2 spray(s) nasal route once daily as neededfluticasone (FLONASE) 50 mcg/actuation nasal spray INHALE TWO SPRAYS NASALLY EVERY DAY IN EACH NOSTRIL NEEDED 0 08/20/2021 ActiveStart: 03-06-2018 Start: 38-72-3618Ragcmlrvsfb Propionate 50 MCG/ACT Nasal for 30 Days Active Fluticasone Propionate 50 MCG/ACT Nasal for 30 Days ActiveComment on above: INHALE TWO SPRAYS NASALLY EVERY DAY IN EACH NOSTRIL NEEDEDgabapentin 800 mg oral tablet (20 sources)Anti-epileptic AgentStart: 43-43-7730tmoyflmyla (Neurontin) 800 MG tablet Indications: Type 2 diabetes mellitus with diabetic nephropathy, without long-term current use of insulin (HCC) , Type 2 diabetes mellitus with diabetic nephropathy (HCC) Take 1 tablet (800 mg) by mouth in the morning and 1 tablet (800 mg) at noon and 1 tablet (800 mg) in the evening and 1 tablet (800 mg) before bedtime. Take before meals. 360 tablet 3 06/09/2024 ActiveStart: 11-02-2017 End: 35-25-9397vcip 1 capsule by mouth once dailyGabapentin 300 mg capsule Discontinued 300 MG PO Daily November 02, 2017 12:00am January 26, 2019 1:22pmtake 1 tablet by mouth every eight hoursGabapentin 800 MG 1 capsule Orally TID for 90 Days Activetake 1 capsule by mouth every twelve hoursGabapentin 300 mg 1 capsule Orally bid for 90 Days ActiveComment on above:Take 800 mg by mouth four times daily.glimepiride 4 mg oral tablet (20 sources)SulfonylureaStart: 74-79-4864ediw 1 tablet by mouth in the morning glimepiride (Amaryl) 4 MG tablet Indications: Type 2 diabetes mellitus with diabetic polyneuropathy, without long-term current use of insulin (HCC) Take 1 tablet (4 mg) by mouth in the morning and 1 tablet (4 mg) in the evening. Take with meals. 180 tablet 3 07/31/2024 ActiveStart: 04-12-2024 End: 47-90-0581uezl 2 tablets by mouth once dailyglimepiride (Amaryl) 4 MG tablet Indications: Type 2 diabetes mellitus with diabetic polyneuropathy, without long-term current use of insulin ([facility]) Take 2 tablets (8 mg) by mouth Daily 180 [id number]/12/2024 06/27/2024 DiscontinuedStart: 11-04-2021 End: 79-08-3316kpxi 1 tablet by mouth once daily in the morningStart: 11-04-2021 take 4 mg by mouth once dailyGlimepiride Active 4 MG PO Daily November 04, 2021 12:00amStart: 05-81-1558seqj 4 mg by mouth once dailyGlimepiride Active 4 MG PO Daily November 04, 2021 12:00amStart: 21-15-7532qcpf 4 mg by mouth once daily Glimepiride Active 4 MG PO Daily November 04, 2021 12:00amStart: 55-19-5315hjpb 4 mg by mouth once dailyGlimepiride Active 4 MG PO Daily November 04, 2021 12:00amStart: 12-30-2016 End: 66-40-7130prey 1 tablet by mouth once daily in the morningGlimepiride 4 mg tablet Discontinued 4 MG PO Every morning January 21, 2021 1:00am October 17, 2021 2:58pm diabetesStart: 11-24-2016 End: 71-87-2604pxmj 2 tablets by mouth once dailyGlimepiride 2 mg tablet Discontinued 4 MG PO Daily January 18, 2017 1:00am January 21, 2021 11:41am Start: 11-24-2016 End: 05-54-6749khvz 4 mg by mouth once dailyGlimepiride Discontinued 4 MG PO Daily January 18, 2017 1:00am January 21, 2021 11:41amComment on above:Take 4 mg by mouth once daily.Handicap Placard 5 year 5 year (18 sources)Start: 67-61-6869Wzpdkkwh Placard 5 year 5 year 1 misc daily for 5 year *please review for potential _update for e-prescription and drug interaction check* Dec, Active3 ml insulin glargine 100 unt/ml pen injector (17 sources)Insulin AnalogStart: 86-36-0075gzfysog glargine (Lantus SoloStar) 100 UNIT/ML pen Indications: Type 2 diabetes mellitus with diabetic polyneuropathy, without long-term current use of insulin ([facility]) Inject 20 Units under the skin atbedtime 15 mL 3 12/19/2024 ActiveStart: 37-51-0887fhtvhsd glargine (Lantus SoloStar) 100 UNIT/ML pen Indications: Type 2 diabetes mellitus with diabetic polyneuropathy, without long-term current use of insulin ([facility]) Inject 20 Units under the skin atbedtime 15 mL 1 10/18/2024 ActivelevoFLOXacin 500 mg oral tablet (20 sources)Quinolone AntimicrobialStart: 05-11-2024 End: 02-02-2662ytib 1 tablet by mouth once dailylevoFLOXacin (Levaquin) 500 MG tablet Indications: Infected wound Take 1 tablet (500 mg) by mouth Daily for 10 days 10 tablet 05/11/2024 05/24/2024 DiscontinuedStart: 12-30-2021 End: 85-19-0772jgzc 1 tablet by mouth once dailyLevofloxacin 750 mg tablet Discontinued 750 MG PO Daily 10 December 30, 2021 12:00am March 27, 2022 1:02pmStart: 04-16-2021 End: 16-35-0508nsvc 1 tablet by mouth once dailyLevofloxacin 750 mg tablet Discontinued 750 MG PO Daily April 16, 2021 1:00am May 02, 2021 4:54pmStart: 03-13-2021 End: 93-85-1626fqkw 1 tablet by mouth once dailyLevofloxacin 750 mg tablet Discontinued 750 MG PO Daily 7 March 13, 2021 1:00am April 09, 2021 7:28amlevothyroxine sodium 0.15 mg oral tablet (20 sources)l-ThyroxineStart: 10-58-0269mmwz 1 tablet by mouth in the morning levothyroxine (Synthroid, Levoxyl) 150 MCG tablet Indications: Postoperative hypothyroidism Take 1 tablet (150 mcg) by mouth in the morning. Take on an empty stomach.. 90 tablet 3 05/29/2024 ActiveStart: 09-27-2021 End: 95-15-2411Spqnhudtarhna 125 mcg tablet Discontinued 150 MCG PO Every morning September 27, 2021 12:00am 2023 10:35amStart: 34-10-1345gcmv 150 ug by mouth once daily in the morningLevothyroxine Active 150 MCG PO Every morning September 27, 2021 12:00amStart: 90-83-3185gtwc 125 ug by mouth once daily Levothyroxine Active 125 MCG PO Daily September 27, 2021 12:00amStart: 08-05-2021 take 1 tablet by mouth once daily in the morninglevothyroxine (SYNTHROID) 100 mcg tablet TAKE 1 TABLET in the morning on an empty stomach orally once a day 60 days 0 08/05/2021 ActiveStart: 77-96-7974yqxmnbcoltyvx (SYNTHROID) 100 mcg tablet Take 150 mcg by mouth once daily. 0 08/05/2021 Activetake 1 tablet by mouth once dailylevothyroxine (Synthroid, Levoxyl) 150 MCG tablet Take 1 tablet by mouth 1 (one) time each day. 0 ActiveLevothyroxine Sodium 100 MCG TAKE 1 TABLET in the morning on an empty stomach orally once a day 60 days Oral for 60 Days ActiveComment on above:TAKE 1 TABLET in the morning on an empty stomach orally once a day 60 daysTake 150 mcg by mouth once daily.lidocaine hydrochloride 0.02 mg/mg topical gel (5 sources)Antiarrhythmic, Amide Local Uathqfxuaaeyityovpn-szynjesa-phgy vera ([facility]enec[facility]) 2 % gel 1 (one) time each day at the same time. 0 Activelinezolid 600 mg oral tablet (20 sources)Oxazolidinone AntibacterialStart: 12-31-2024 End: 64-90-0431html 1 tablet by mouth in the morninglinezolid (Zyvox) 600 MG tablet Take 600 mg by mouth in the morning and 600 mg before bedtime. 12/31/2024 01/14/2025 ActiveStart: 12-05-2021 End: 34-76-3130lprm 1 tablet by mouth twice dailyLinezolid 600 mg tablet Discontinued 600 MG PO Twice daily 28 14 0 December 05, 2021 12:00am December 30, 2021 2:09pmlosartan potassium 50 mg oral tablet (20 sources)Angiotensin 2 Receptor BlockerStart: 15-07-7443wtxq 1 tablet by mouth once dailylosartan (Cozaar) 50 MG tablet Indications: Hyperlipidemia, unspecified , Essential hypertension Take 1 tablet (50 mg) by mouth Daily 90 tablet 3 05/29/2024 ActiveStart: 01-21-2021 End: 57-29-5924Yeiuryjt Discontinued MG TABLET January 21, 2021 1:00am January 21, 2021 11:46amStart: 11-02-2017 End: 84-89-6010Imnznjad 50 mg tablet Discontinued MG January 21, 2021 1:00am January 21, 2021 11:46amComment on above:Take 50 mg by mouth once daily. meclizine hydrochloride 25 mg oral tablet (20 sources)AntiemeticStart: 05-30-2024 End: 20-98-3718vllq 1 tablet by mouth three times daily as needed for dizziness meclizine (Antivert) 25 MG tablet Indications: Vertigo Take 1 tablet (25 mg) by mouth 3 (three) times a day as needed for dizziness 90 tablet 11 05/30/2024 05/30/2025 ActiveStart: 06-01-2023 End: 82-81-5376ndqh 1 tablet by mouth once dailymeclizine (Antivert) 25 MG tablet Indications: Vertigo Take 1 tablet (25 mg) by mouth 1 (one) time each day at the same time 90 tablet 3 06/01/2023 07/11/2024 Discontinued (Med list cleanup)Start: 02-17-2019 End: 96-97-6712indi 1 tablet by mouth once daily at bedtime as neededMeclizine 25 mg Tablet Discontinued 25 MG PO Daily at bedtime as needed for Vertigo February 12, 2021 1:00am October 17, 2021 2:58pmComment on above:Take 25 mg by mouth once daily as needed.meloxicam 15 mg oral tablet (20 sources)Nonsteroidal Anti-inflammatory DrugStart: 01-21-2021 End: 51-33-0028uzxh 1 tablet by mouth once dailymeloxicam (Mobic) 15 MG tablet Indications: Spinal stenosis, lumbar region without neurogenic claudication Take 1 tablet (15 mg) by mouth Daily 90 tablet 3 05/29/2024 ActiveComment on above: Take 15 mg by mouth once daily.24 hr metoprolol succinate 50 mg extended release oral tablet (20 sources)beta-Adrenergic BlockerStart: 03-70-2792ishy 1 tablet by mouth once dailymetoprolol succinate XL (Toprol-XL) 50 MG 24 hr tablet Indications: Hyperlipidemia, unspecified Take 1 tablet (50 mg) by mouth Daily 90 tablet 3 06/09/2024 ActiveStart: 43-05-2707otbw 1 tablet by mouth once dailymetoprolol succinate XL (Toprol-XL) 50 MG 24 hr tablet Indications: Hyperlipidemia, unspecified (CMS/HCC) Take 1 tablet (50 mg) by mouth Daily 30 tablet 9 05/29/2024 ActiveStart: 64-48-4786svvr 1 tablet by mouth once dailymetoprolol succinate XL (Toprol-XL) 50 MG 24 hr tablet Indications: Hyperlipidemia, unspecified (CMS/HCC) TAKE 1 TABLET BY MOUTH EVERY DAY 30 tablet 9 08/19/2023 ActiveStart: 28-27-9107wmpy 1 tablet by mouth once dailymetoprolol succinate XL (Toprol-XL) 50 MG 24 hr tablet Indications: Hyperlipidemia, unspecified (CMS /HCC) TAKE 1 TABLET BY MOUTH EVERY DAY 30 tablet 9 12/02/2022 ActiveStart: 84-72-4680Ajefj: 59-85-7583ilcd 50 mg by mouth once daily in the morning Metoprolol Succinate Active 50 MG PO Every morning May 02, 2021 1:00am Start: 87-72-3337Uhnjxzu on above:Take 25 mg by mouth once daily.Take 50 mg by mouth once daily.nystatin 100 unt/mg topical ointment (20 sources)Polyene AntifungalStart: 03-10-2023 End: 84-08-1809loxigycq (Mycostatin) ointment Indications: Yeast dermatitis Apply topically every 12 (twelve) hours 15 g 2 12/01/2024 ActiveStart: 68-24-0624olbfrszp (MYCOSTATIN) ointment 1 (ONE) application to skin TWICE DAILY 0 06/25/2021 ActiveStart: 03-10-2021 End: 25-91-8045Lumcacht 100,000 unit/gram ointment Discontinued 1 APPLIC TOPICAL Three times daily as needed for rash March 10, 2021 1:00am February 09, 2023 3:45pm Bilateral groinsStart: 72-80-4596Yvrxptk on above:1 (ONE) application to skin TWICE DAILYomeprazole 40 mg delayed release oral capsule (20 sources)Proton Pump InhibitorStart: 46-07-8671ndpm 1 capsule by mouth before mealtimeomeprazole (PriLOSEC) [address] capsule Indications: Gastro-esophageal reflux disease without esophagitis Take 1 capsule (40 mg) by mouth in the morning. Take before meals. Do not crush or chew.. 90 capsule 3 05/29/2024 Activeondansetron 8 mg oral tablet (20 sources)Serotonin-3 Receptor AntagonistStart: 05-93-2916ijyz 1 tablet by mouth every eight hours as needed for nausea and nauseaondansetron (Zofran) 8 MG tablet Indications: Nausea Take 1 tablet (8 mg) by mouth every 8 (eight) hours if needed (or vomiting) 20 tablet 1 12/26/2024 ActiveStart: 05-29-2024 End: 72-60-0338obrp 1 tablet by mouth every eight hours as needed for nausea and nauseaondansetron (Zofran) 8 MG tablet Indications: Nausea TAKE ONE TABLET (8MG) BY MOUTH EVERY 8 HOURS NEEDED FOR NAUSEA OR VOMITING 20 tablet 1 07/12/2024 ActiveStart: 63-93-8502kcqs 1 tablet by mouth every eight hours as needed for nausea and vomitingondansetron (Zofran) 8 MG tablet Indications: Nausea TAKE 1 TABLET BY MOUTH EVERY 8 HOURS NEEDEDFOR NAUSEA AND VOMITING 20 tablet 1 02/03/2024 ActiveStart: 80-64-1528tzaq 1 tablet by mouth every eight hours as needed for nausea and vomitingondansetron (Zofran) 8 MG tablet Indications: Nausea TAKE 1 TABLET BY MOUTH EVERY 8 HOURS NEEDEDFOR NAUSEA AND VOMITING 20 tablet 1 11/16/2023 ActiveStart: 87-31-2283twvu 1 tablet by mouth every eight hours as needed for nausea and vomiting and nausea and nauseaondansetron (Zofran) 8 MG tablet Indications: Nausea Take 1 tablet (8 mg) by mouth every 8 (eight) hours if needed for nausea or vomiting 20 tablet 1 09/21/2023 Active Start: 34-68-7206addpgwmwate (Zofran) 8 MG tabletComment on above:Take 8 mg by mouth every 8 hours as needed.oxyCODONE hydrochloride 10 mg oral tablet (20 sources)Opioid AgonistStart: 36-41-4353iscl 1 tablet by mouth every four hours for painoxyCODONE (Roxicodone) 10 MG immediate release tablet Indications: Chronic bilateral low back pain without sciatica Take 1 tablet (10 mg) by mouth every 4 (four) hours if needed for severe pain 180 tablet 01/05/2025 Active Start: 05-26-2024 End: 03-17-0627xvcp 1 tablet by mouth every four hours for painoxyCODONE (Roxicodone) 10 MG immediate release tablet Indications: Chronic bilateral low back pain without sciatica Take 1 tablet (10 mg) by mouth every 4 (four) hours if needed for severe pain 180 tablet 12/12/2024 01/05/2025 Discontinued (Reorder)Start: 02-15-2024 End: 25-19-4000dpea 1 tablet by mouth every four hours for painoxyCODONE (Roxicodone) 10 MG immediate release tablet Indications: Chronic bilateral low back pain without sciatica Take 1 tablet (10 mg) by mouth every 4 (four) hours if needed for severe pain 150 tablet 05/08/2024 ActiveStart: 12-95-8730jpgh 1 tablet by mouth every four hours for pain, then take 5 tablets by mouth once daily for painoxyCODONE (Roxicodone) 10 MG immediate release tablet Indications: Chronic bilateral low back pain without sciatica Take 1 tablet (10 mg) by mouth every 4 (four) hours if needed for severe pain (no more than 5 per day) 150 tablet 11/19/2023 ActiveStart: 10-25-2023 End: 37-83-7945morf 1 tablet by mouth every four hours for pain, then take 5 tablets by mouth once daily for painoxyCODONE (Roxicodone) 10 MG immediate release tablet Indications: Chronic bilateral low back pain without sciatica Take 1 tablet (10 mg) by mouth every 4 (four) hours if needed for severe pain (no more than 5 per day) 150 tablet 02/15/2024 ActiveStart: 12-18-2021 End: 46-72-2399voni 2 tablets by mouth every four hours as needed for pain Oxycodone 5 mg tablet Discontinued 10 MG PO Q4H as needed for Pain December 18, 2021 12:00am January 06, 2022 6:36pmStart: 12-18-2021 End: 86-51-1554gyoq 10 mg by mouth every four hoursOxycodone Discontinued 10 MG PO Q4H December 18, 2021 12:00am January 06, 2022 6:36pmStart: 11-09-2021 End: 24-15-3023kocl 1 tablet by mouth four times daily as needed for pain Oxycodone 15 mg tablet Discontinued 15 MG PO Four times daily as needed for pain 20 7 November 09, 2021 December 03, 2021 7:42pm Local infection of wound Other injury of unspecified body region,initial encounter Local infection of the skin and subcutaneous tissue, unspecifiedStart: 11-09-2021 End: 25-22-7472hjlo 1 tablet by mouth three times daily as needed for pain Oxycodone 15 mg tablet Discontinued 15 MG PO Three times daily as needed for pain December 03, 2021 7:42pm December 09, 2021 4:52pmStart: 11-09-2021 take 15 mg by mouth four times dailyOxycodone Active 15 MG PO Four times daily 01 10November 09tart: 15-05-4513yfbo 15 mg by mouth four times daily Oxycodone Active 15 MG PO Four times daily 01 10November 09tart: 30-44-4057noqf 15 mg by mouth four times dailyOxycodone Active 15 MG PO Four times daily 01 10November 09tart: 17-35-6857ocaj 15 mg by mouth four times dailyOxycodone Active 15 MG PO Four times daily 01 10November 09, 2021 Start: 22-55-7293fvbk 15 mg by mouth four times dailyOxycodone Active 15 MG PO Four times daily 01 10November 09tart: 10-09-2021 End: 72-44-3933yjsr 5-10 mg by mouth every four hours as needed for pain Oxycodone 5 mg Tablet Discontinued 5 - 10 MG PO Every 4 hours as needed for pain 15 5 0 OctoberNovember 09, 2021 12:55pm 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 Non-pressure chronic ulcer of other part of left foot with necrosis of boneStart: 10-09-2021 End: 53-13-5788vjny 5-10 mg by mouth every four hoursOxycodone Discontinued 5 - 10 MG PO Every 4 hours 15 5 October 17, 2021 November 09, 2021 12:55pmStart: 08-13-2021 End: 89-28-0673Ckydtlkpk (Roxicodone) 5 mg tablet Discontinued 10 MG PO Three times daily as needed for pain 14 3 0 August 13, 2021 September 27, 2021 12:01pm Postoperative pain Other acute postprocedural painStart: 05-10-2021 End: 58-82-3082yyad 1 tablet by mouth twice daily, then take 1 tablet by mouth every hourOxycodone (Oxycontin) 20 mg tablet,oral only,ext.rel.12 hr Discontinued 20 MG PO Twice daily 14 7 0February 2021July 29, 2021 10:25am Postoperative pain Other acute postprocedural pain post op painStart: 03-13-2021 End: 28-59-8425pmma 1 tablet by mouth twice daily, then take 1 tablet by mouth every hourOxycodone (Oxycontin) 10 mg tablet,oral only,ext.rel.12 hr Discontinued 10 MG PO Twice daily May 02, 2021 4:59pm May 09, 2021 3:17pm painOzempic (0.25 or 0.5 MG/DOSE) 2 MG/1.5ML (3 sources)Ozempic (0.25 or 0.5 MG/DOSE) 2 MG/1.5ML as directed Subcutaneous Activeproparacaine hydrochloride 5 mg/ml ophthalmic solution (1 source)Local AnestheticStart: 01-01-2023 End: 05-25-3379gbngqqcfrwiq 0.5 % 1 Drop (ALCAINE)semaglutide (Ozempic, 1 MG/DOSE,) 4 MG/3ML solution pen-injector (5 sources)Start: 66-06-1756vbljdy 1 mg by subcutaneous injection every week semaglutide (Ozempic, 1 MG/DOSE,) 4 MG/3ML solution pen-injector Indications: Type 2 diabetes mellitus with diabetic nephropathy (CMS/HCC) INJECT 1mg SUBCUTANEOUSLY EVERY WEEK 3 mL 3 02/11/2023 ActiveSennosides (Senna Lax) 8.6 mg Tablet (20 sources)Start: 61-09-2579lkim 2 tablets by mouth twice daily as needed for constipationSennosides (Senna Lax) 8.6 mg Tablet Active 2 TAB PO Twice daily as needed for constipation 120 October 09, 2021 12:00amStart: 23-56-6584fcfj 2 tablets by mouth twice daily as needed for constipationSennosides (Senna Lax) 8.6 mg Tablet Active 2 TAB PO Twice daily as needed for constipation 120 October 08, 2021 11:00pmStart: 71-13-3834ngbw 2 tablets by mouth twice dailySennosides (Senna Lax) 8.6 mg Tablet Active 2 TAB PO Twice daily 120 October 08, 2021 11:00pmStart: 73-97-4535xigr 2 tablets by mouth twice dailySennosides (Senna Lax) 8.6 mg Tablet Active 2 TAB PO Twice daily 120 October 09, 2021 12:00am sulfamethoxazole 800 mg / trimethoprim 160 mg oral tablet (2 sources)Dihydrofolate Reductase Inhibitor Antibacterial, Sulfonamide AntimicrobialStart: 11-10-2023 End: 80-44-1957ftlh 1 tablet by mouth once in the morning, then take 1 tablet by mouth once at bedtimesulfamethoxazole-trimethoprim (Bactrim DS) 800-160 MG per tablet Indications: Toe infection , Amputation of toe of right foot (CMS/HCC) Take 1 tablet by mouth in the morning and 1 tablet before bedtime. Do all this for 7 days. 14 tablet 11/10/2023 11/17/2023 ActiveTirzepatide (Mounjaro) 2.5 MG/0.5ML solution auto-injector (6 sources)Start: 55-47-2531ylxgjo 2.5 mg by subcutaneous injection every week Tirzepatide (Mounjaro) 2.5 MG/0.5ML solution auto-injector Indications: Type 2 diabetes mellitus with diabetic polyneuropathy, without long-term current use of insulin (HCC) , Morbid obesity (CMS-HCC) Inject 2.5 mg under the skin 1 (one) time per week 2 mL 12/01/2024 ActiveTirzepatide (Mounjaro) 5 MG/0.5ML solution auto-injector (1 source)Start: 83-95-4281sohdbs 5 mg by subcutaneous injection every week Tirzepatide (Mounjaro) 5 MG/0.5ML solution auto-injector Indications: Type 2 diabetes mellitus withdiabetic polyneuropathy, without long-term current use of insulin ([facility]) , Morbid obesity ([facility]-HCC) Inject 5 mg under the skin 1 (one) time per week Call when taking last dose for possible increase 2 mL 12/25/2024 Active zolpidem tartrate 10 mg oral tablet (20 sources)gamma-Aminobutyric Acid-ergic AgonistStart: 02-11-2023 End: 91-99-7696prqn 1 tablet by mouth at bedtimezolpidem (Ambien) 10 MG tablet Indications: Chronic insomnia Take 1 tablet (10 mg) by mouth at bedtime 90 tablet 1 07/27/2024 ActiveStart: 87-58-2197bzhhexso (AMBIEN) 5 mg tablet Take 5 mg by mouth. 0 09/07/2022 ActiveComment on above:Take 5 mg by mouth. Completed/Discontinued Medications MedicationDrug Class(es)DatesSig (Normalized)Sig (Original)amoxicillin 875 mg / clavulanate 125 mg oral tablet (20 sources)Penicillin-class AntibacterialStart: 10-22-2024 End: 95-83-4260mopp 1 tablet by mouth in the morningamoxicillin-clavulanate (Augmentin) 875-125 MG tablet Take 1 tablet by mouth in the morning and 1 tablet before bedtime. 10/22/2024 01/02/2025 DiscontinuedStart: 10-22-2024 End: 98-61-0869jfxg 1 tablet by mouth twice dailyAmoxicillin-Pot Clavulanate 875-125 mg tablet Discontinued 1 TAB PO Twice daily 20 October 22, 2024 12:00am December 31, 2024 12:44pmStart: 11-09-2021 End: 87-07-8948omip 1 tablet by mouth twice dailyAmoxicillin-Pot Clavulanate 875-125 mg tablet Discontinued 1 TAB PO Twice daily 14 7 0 October 12:00am December 03, 2021 7:40pmStart: 11-09-2021 End: 13-60-9344Uhstz: 05-77-5024cqgg 1 tablet by mouth twice dailyAmoxicillin- Pot Clavulanate Active 1 TAB PO Twice daily 25 09November 09, 2021 12:00amStart: 49-20-0475mfct 1 tablet by mouth twice dailyAmoxicillin-Pot Clavulanate Active 1 TAB PO Twice daily 25 09November 09, 2021 12:00amStart: 17-18-5460pwfz 1 tablet by mouth twice dailyAmoxicillin-Pot Clavulanate Active 1 TAB PO Twice daily 25 09November 09, 2021 12:00amStart: 24-03-4619adbc 1 tablet by mouth twice daily Amoxicillin-Pot Clavulanate Active 1 TAB PO Twice daily 25 09November 09, 2021 12:00amStart: 74-89-4267fthn 1 tablet by mouth twice dailyAmoxicillin-Pot Clavulanate Active 1 TAB PO Twice daily 25 09November 09, 2021 12:00amatenolol 25 mg oral tablet (20 sources)beta-Adrenergic BlockerStart: 11-24-2016 End: 76-27-9931dsri 1 tablet by mouth twice dailyAtenolol 25 mg tablet Discontinued 1 TAB PO Twice daily November 24, 2016 12:00am January 18 017 12:37pm End: 40-92-3082bxxxxayt (Tenormin) 25 MG tablet every 12 (twelve) hours 10/17/2024 Discontinued (Therapy completed)azithromycin 250 mg oral tablet (20 sources)Macrolide AntimicrobialStart: 01-18-2017 End: 23-92-3103xhav 1 tablet by mouth once dailyAzithromycin 250 mg tablet Discontinued 250 MG PO Daily January 18, 2017 1:00am November 18, 2017 11:26am take one tab daily for 4 daysbevacizumab intravitreal syringe 2.5 mg/0.1 mL (2 sources)Start: 01-01-2023 End: 89-90-0996bglecuggcwz intravitreal syringe 2.5 mg/0.1 mLStart: 12-04-2022 End: 06-63-9470hhkukhrgwlx intravitreal syringe 2.5 mg/0.1 mLcephalexin 500 mg oral capsule (20 sources)Cephalosporin AntibacterialStart: 01-06-2022 End: 04-89-4113gbvn 1 capsule by mouth every six hoursCephalexin 500 mg capsule Discontinued 500 MG PO Q6H 28 7 0 January 06, 2022 12:00am January 06, 2022 6:34pmStart: 10-13-2021 End: 44-85-7850kjoe 1 capsule by mouth three times dailyCephalexin 500 mg capsule Discontinued 500 MG PO Three times daily October 13, 2021 12:00am October 17, 2021 2:58pmStart: 01-22-2021 End: 11-12-7121stdw 1 capsule by mouth twice dailyCephalexin 500 mg capsule Discontinued 500 MG PO Twice daily 20 10 0 January 22, 2021 1:00am February 12, 2021 5:36pmStart: 01-22-2021 End: 18-28-5405kshrkhiprog 300 mg oral capsule (20 sources)Lincosamide AntibacterialStart: 10-12-2021 End: 39-22-5117kqam 1 capsule by mouth three times dailyClindamycin Hcl 300 mg capsule Discontinued 300 MG PO Three times daily 63 21 0 October 12, 2021 12:00am October 13, 2021 8:13amcodeine phosphate 2 mg/ml / guaiFENesin 20 mg/ml oral solution (10 sources)Opioid AgonistStart: 01-05-2024 End: 05-87-9077xoyaIVAlsiq-codeine (Robitussin-AC) 100-10 MG/5ML syrup Indications: Cough Take 5-10 mL by mouth every 4 (four) hours if needed for cough 200 mL 01/18/2024 04/12/2024 Discontinuedcollagenase 0.25 unt/mg topical ointment (20 sources)Collagen-specific EnzymeStart: 02-24-2023 End: 02-71-4227alwedizjrte (Santyl) 250 UNIT/GM ointment Indications: Surgical wound present , Toe ulcer, left, with necrosis of muscle (HCC) , Type II diabetes mellitus with neurological manifestations (HCC) , Peripheral arterial disease , PVD (peripheral vascular disease) Apply 1 application topically Daily 90 g 2 05/07/2023 10/17/2024 Discontinued (Therapy completed)Start: 08-20-2022 End: 68-34-1522Pltlfohswde Clostridium Histo. (Santyl) 250 unit/gram ointment Discontinued 1 APPLIC TOPICAL Daily August 20, 2022 12:00am October 20, 2024 3:14amStart: 57-85-2757Cetemx 250 UNIT/GM ointment 1 application 1 (one) time each day at the same time. 0 03/12/2022 ActiveStart: 03-10-2021 End: 34-10-2749Mwrhhifqfrp Clostridium Histo. (Santyl) 250 unit/gram ointment Discontinued 1 APPLIC TOPICAL Daily March 10, 2021 1:00am July 29, 2021 10:26am woundStart: 03-10-2021 End: 35-33-5126mwurrkln sodium 100 mg oral capsule (20 sources)Start: 10-09-2021 End: 65-84-7352auhd 2 capsules by mouth twice dailyDocusate Sodium 100 mg Capsule Discontinued 200 MG PO Twice daily 120 30 0 October 09, 2021 12:00am A 2021 2:58pmStart: 10-09-2021 End: 88-26-6855xrgr 200 mg by mouth twice dailyDocusate Sodium Discontinued 200 MG PO Twice daily 120 30 October 09, 2021 12:00am October 17, 2021 2:58pm doxycycline hyclate 100 mg oral tablet (20 sources)Tetracycline-class DrugStart: 11-09-2021 End: 90-38-3486qvii 1 tablet by mouth twice dailyDoxycycline Hyclate 100 mg tablet Discontinued 100 MG PO Twice daily 0 7 November 09, 2021 12:58pm December 03, 2021 7:40pm Continue for 7 more daysStart: 37-94-8760yycj 100 mg by mouth twice dailyDoxycycline Hyclate Active 100 MG PO Twice daily 0 November 09, 2021 12:58pm Continue for 7 more daysStart: 21-69-3114pobs 100 mg by mouth twice dailyDoxycycline Hyclate Active 100 MG PO Twice daily 0 November 09, 2021 12:58pm Continue for 7 more daysStart: 58-99-2470ffwh 100 mg by mouth twice dailyDoxycycline Hyclate Active 100 MG PO Twice daily 0 November 09, 2021 12:58pm Continue for 7 more daysStart: 05-23-3590qztf 100 mg by mouth twice dailyDoxycycline Hyclate Active 100 MG PO Twice daily 0 November 09, 2021 12:58pm Continue for 7 more daysStart: 23-34-7341gtso 100 mg by mouth twice dailyDoxycycline Hyclate Active 100 MG PO Twice daily 0 7 November 09, 2021 12:58pm Continue for 7 more daysStart: 11-09-2021 End: 71-80-6853zvsm 1 tablet by mouth twice dailyDoxycycline Hyclate 100 mg tablet Discontinued 100 MG PO Twice daily November 09, 2021 12:00am November 09, 2021 12:58pmStart: 09-27-2021 End: 65-61-6953mybf 1 tablet by mouth once dailyDoxycycline Hyclate 100 mg tablet Discontinued 100 MG PO Daily September 27, 2021 2:17pm October 09, 2021 10:11amStart: 08-13-2021 End: 53-72-2860wvsy 1 tablet by mouth twice dailyDoxycycline Hyclate 100 mg tablet Discontinued 100 MG PO Twice daily 14 7 0 August 13, 2021 12:00am September 27, 2021 2:17pmStart: 05-10-2021 End: 15-31-0575unac 1 capsule by mouth twice dailyDoxycycline Hyclate 100 mg capsule Discontinued 100 MG PO Twice daily 20 10 0 May 10, 2021 1:00am July 29, 2021 10:20amtake 1 tablet by mouth once dailyDoxycycline Hyclate 100 MG 1 tablet Orally Once a day Activeergocalciferol 1.25 mg oral capsule (2 sources)Provitamin D2 CompoundStart: 67-32-3105ftqylecpeuqinn 50,000 unit capsule (VITAMIN D2, DRISDOL) Take 1.25 mg by mouth. 0 09/07/2022 ActiveComment on above:Take 1.25 mg by mouth.72 hr fentaNYL 0.025 mg/hr transdermal system (20 sources)Opioid AgonistStart: 11-09-2021 End: 44-46-4827Jlpnhpdd 25 mcg/hr Patch 72 Hour Discontinued 25 MCG TRANSDERML Every 72 hours 2 6 0 November 09, 2021 December 03, 2021 7:40pm Local infection of wound Other injury of unspecified body region, initial encounter Local infection of the skin and subcutaneous tissue, unspecifiedStart: 58-07-1666Spijsskv Active 25 MCG TRANSDERML Every 72 hours 2 November 09, 2021 Start: 13-85-6784Veaynufy Active 25 MCG TRANSDERML Every 72 hours 2 November 09tart: 15-19-2355Hjfrhmwt Active 25 MCG TRANSDERML Every 72 hours 2 November 09tart: 33-62-1659Awnizmrm Active 25 MCG TRANSDERML Every 72 hours 2 November 09tart: 63-29-7090Xvlsgpth Active 25 MCG TRANSDERML Every 72 hours 2 November 09, 2021HYDROmorphone hydrochloride 2 mg oral tablet (20 sources)Opioid AgonistStart: 01-08-2022 End: 89-37-1228pkvf 1 tablet by mouth every six hours as needed for pain Hydromorphone 2 mg Tablet Discontinued 2 MG PO Every 6 hours as needed for Pain 56 14 0 January 08, 2022 August 20, 2022 11:34am Pain in both feet Pain in right foot Pain in left footInsulin Aspart U-100 (Novolog Flexpen U-100 Insulin) 100 unit/mL (3 mL) Insulin Pen (20 sources)Start: 10-17-2021 End: 50-33-2304Emvxafv Aspart U-100 (Novolog Flexpen U-100 Insulin) 100 unit/mL (3 mL) Insulin Pen Discontinued 0 UNITS SUBCUT 3X/Day with meals and bedtime 0 October 16, 2021 11:00pm November 04, 2021 1:14amStart: 10-17-2021 End: 80-99-8076Unsvjul Aspart U-100 (Novolog Flexpen U-100 Insulin) 100 unit/mL (3 mL) Insulin Pen Discontinued 0 UNITS SUBCUT 3X/Day with meals and bedtime 0 October 17, 2021 12:00am November 04, 2021 2:14am3 ml insulin aspart, human 100 unt/ml pen injector (7 sources)Insulin AnalogStart: 10-17-2021 End: 38-83-2425Ztdrvoe Aspart U-100 (Novolog Flexpen U-100 Insulin) 100 unit/mL (3 mL) Insulin Pen Discontinued 0 UNITS SUBCUT 3X/Day with meals and bedtime 0 October 17, 2021 12:00am November 04, 2021 2:14am3 ml insulin detemir 100 unt/ml pen injector (20 sources)Insulin AnalogStart: 10-17-2021 End: 28-60-6369Wgutrob Detemir U-100 (Levemir Flextouch U-100 Insuln) 100 unit/mL (3 mL) Insulin Pen Discontinued 20 UNIT SUBCUT Daily at bedtime 0 0 October 17, 2021 12:00am November 04, 2021 2:14am3 ml liraglutide 6 mg/ml pen injector (20 sources)GLP-1 Receptor AgonistStart: 11-02-2017 End: 02-66-6527yzcjof 1.2 mg by subcutaneous injection once dailyLiraglutide 0.6 mg/0.1 mL (18 mg/3 mL) pen injector Discontinued 1.2 MG SUBCUT Daily November 02, 2017 12:00am January 26, 2019 1:22pmlisinopril 10 mg oral tablet (20 sources)Angiotensin Converting Enzyme InhibitorStart: 01-18-2017 End: 11-93-0288ehxh 1 tablet by mouth once dailyLisinopril 10 mg tablet Discontinued 10 MG PO Daily January 18, 2017 1:00am November 18, 2017 11 :27ammethIMAzole 10 mg oral tablet (3 sources)Thyroid Hormone Synthesis InhibitorStart: 02-41-2801yksa 1 tablet by mouth once dailymethIMAzole (TAPAZOLE) 10 mg tablet Take 10 mg by mouth once daily. 0 06/18/2021 ActiveComment on above:Take 10 mg by mouth once daily. methylPREDNISolone (17 sources)CorticosteroidStart: 38-70-7659Vqpa-Medrol 80 mg Feb, 1 mL predniSONE 50 mg oral tablet (20 sources)Start: 01-26-2019 End: 76-83-7154gxqs 1 tablet by mouth once dailyPrednisone 50 mg tablet Discontinued 50 MG PO Daily 5 5 0 January 26, 2019 1:00am January 21, 2021 5:22amStart: 01-18-2017 End: 88-10-4895licm 1 tablet by mouth once daily at mealtimePrednisone 20 mg tablet Discontinued 20 MG PO Daily 4 0 January 18, 2017 1:00am November 18, 2017 11:28am administer with food or milkpropylthiouracil 50 mg oral tablet (3 sources)Thyroid Hormone Synthesis InhibitorStart: 84-82-9767cyiv 1 tablet by mouth twice dailypropylthiouracil 50 mg tablet Take 50 mg by mouth twice daily. 0 07/02/2021 ActiveComment on above:Take 50 mg by mouth twice daily.rivaroxaban 10 mg oral tablet (20 sources)Factor Xa InhibitorStart: 11-09-2021 End: 54-51-5263drjv 1 tablet by mouth once dailyRivaroxaban (Xarelto) 10 mg Tablet Discontinued 10 MG PO Daily November 09, 2021 12:00am December 09, 2021 4:51pmStart: 08-30-7358vmha 1 tablet by mouth once dailyRivaroxaban (Xarelto) 10 mg Tablet Active 10 MG PO Daily November 09, 2021 12:00amStart: 47-17-6443qpyh 1 tablet by mouth once dailyRivaroxaban (Xarelto) 10 mg Tablet Active 10 MG PO Daily November 09, 2021 12:00amStart: 30-74-1340xtwe 1 tablet by mouth once dailyRivaroxaban (Xarelto) 10 mg Tablet Active 10 MG PO Daily November 09, 2021 12:00amStart: 96-39-5491vtwq 1 tablet by mouth once daily Rivaroxaban (Xarelto) 10 mg Tablet Active 10 MG PO Daily November 09, 2021 12:00amStart: 04-79-0256wnkd 1 tablet by mouth once dailyRivaroxaban (Xarelto) 10 mg Tablet Active 10 MG PO Daily November 09, 2021 12:00am0.25 mg, 0.5 mg dose 1.5 ml semaglutide 1.34 mg/ml pen injector (16 sources)Start: 75-32-5822yczhle 0.5 mg by subcutaneous injection every week, then inject 1 mg by subcutaneous injection every weekOZEMPIC 0.25 mg or 0.5 mg(2 mg/1.5 mL) pen injector INJECT 0.5MG SUBCUTANEOUSLY ONCE WEEKLY FOR FOUR WEEKS THEN 1MG ONCE A WEEK 0 08/20/2021 ActiveComment on above:INJECT 0.5MG SUBCUTANEOUSLY ONCE WEEKLY FOR FOUR WEEKS THEN 1MG ONCE A WEEKSemaglutide (20 sources)Start: 08-20-2022 End: 47-96-2004lymdpv 1 mg by subcutaneous injection every weekSemaglutide (Ozempic) 1 mg/dose (4 mg/3 mL) pen injector Discontinued 1 MG SUBCUT every week August 20, 2022 11:36am October 11, 2023 3:21pm diabetes pt. takes on mondays. Start: 08-20-2022 End: 59-20-7537vvgbin 1 mg by subcutaneous injection every weekSemaglutide (Ozempic) 1 mg/dose (4 mg/3 mL) pen injector Discontinued 1 MG SUBCUT every week August 20, 2022 10:36am October 11, 2023 2:21pm pt. takes on mondays.Start: 08-20-2022 End: 02-30-6370uptstm 1 mg by subcutaneous injection every weekSemaglutide (Ozempic) 1 mg/dose (4 mg/3 mL) pen injector Discontinued 1 MG SUBCUT every week August 20, 2022 11:36am October 11, 2023 3:21pm pt. takes on mondays.Start: 83-75-6912dzbdfz 1 mg by subcutaneous injection every weekSemaglutide (Ozempic) 1 mg/dose (4 mg/3 mL) pen injector Active 1 MG SUBCUT every week August 20, 2022 10:36am pt. takes on mondays.Start: 59-75-2239ujqzzk 1 mg by subcutaneous injection every weekSemaglutide (Ozempic) 1 mg/dose (4 mg/3 mL) pen injector Active 1 MG SUBCUT every week August 20, 2022 11:36am pt. takes on mondays.Start: 10-17-2021 End: 08-50-8393wjnmzc 1 mg by subcutaneous injection every weekSemaglutide (Ozempic) 1 mg/dose (4 mg/3 mL) pen injector Discontinued 1 MG SUBCUT every week 05 16October 17, 2021 12:00am August 20, 2022 11:36am pt. takes on mondays.Start: 10-17-2021 End: 10-28-6009grmycl 1 mg by subcutaneous injection every weekSemaglutide (Ozempic) 1 mg/dose (4 mg/3 mL) pen injector Discontinued 1 MG SUBCUT every week October 16, 2021 11:00pm August 20, 2022 10:36am pt. takes on mondays.Start: 10-17-2021 End: 62-13-0746abhauf 1 mg by subcutaneous injection every weekSemaglutide (Ozempic) 1 mg/dose (4 mg/3 mL) pen injector Discontinued 1 MG SUBCUT every week October 17, 2021 12:00am August 20, 2022 11:36am pt. takes on mondays.Start: 32-81-3082upkydc 1 mg by subcutaneous injection every weekSemaglutide (Ozempic) 1 mg/dose (4 mg/3 mL) pen injector Active 1 MG SUBCUT every week October 16, 2021 11:00pm pt. takes on mondays.Start: 68-29-8005Nnusj: 29-77-8528zzhsvo 1 mg by subcutaneous injection every weekSemaglutide (Ozempic) 1 mg/dose (4 mg/3 mL) pen injector Active 1 MG SUBCUT every week October 17, 2021 12:00am pt. takes on mondays.Start: 77-10-4606dbbups 1 mg by subcutaneous injection every week Semaglutide (Ozempic) 1 mg/dose (4 mg/3 mL) pen injector Active 1 MG SUBCUT every week October 17, 2021 12:00amSemaglutide,0.25 or 0.5MG/DOS, (Ozempic, 0.25 or 0.5 MG/DOSE,) 2 MG/3ML solution pen-injector (4 sources)Start: 2024 End: 83-38-0657ivszda 0.25 mg by subcutaneous injection every week, then inject 0.5 mg by subcutaneous injection every weekSemaglutide,0.25 or 0.5MG/DOS, (Ozempic, 0.25 or 0.5 MG/DOSE,) 2 MG/3ML solution pen-injector Indications: Type 2 Diabetes Mellitus Inject 0.25 mg under the skin 1 (one) time per week for 28 days, THEN 0.5 mg 1 (one) time per week for 14 days. 3 mL 2024 04/12/2024 DiscontinuedStart: 90-30-9999yvumzg 0.25 mg by subcutaneous injection every week, then inject 0.5 mg by subcutaneous injection every weekSemaglutide,0.25 or 0.5MG/DOS, (Ozempic, 0.25 or 0.5 MG/DOSE,) 2 MG/3ML solution pen-injector Indica tions: Type 2 Diabetes Mellitus Inject 0.25 mg under the skin 1 (one) time per week for 28 days, THEN 0.5 mg 1 (one) time per week for 14 days. 3 mL 2024 ActiveStart: 2024 End: 40-83-3811vcthce 0.25 mg by subcutaneous injection every week, then inject 0.5 mg by subcutaneous injection every weekSemaglutide,0.25 or 0.5MG/DOS, (Ozempic, 0.25 or 0.5 MG/DOSE,) 2 MG/3ML solution pen-injector Indications: Type 2 Diabetes Mellitus Inject 0.25 mg under the skin 1 (one) time per week for 28 days, THEN 0.5 mg 1 (one) time per week for 14 days. 3 mL 2024 03/08/2024 Activesennosides, long-term 8.6 mg oral tablet (7 sources)Start: 10-09-2021 End: 72-92-6044ssam 2 tablets by mouth twice daily as needed for constipation Sennosides (Senna Lax) 8.6 mg Tablet Discontinued 2 TAB PO Twice daily as needed for constipation 120 30 0 October 09, 2021 12:00am October 20, 2024 3:17am triamcinolone acetonide 5 mg/ml topical cream (20 sources)CorticosteroidStart: 84-80-5700ksnpssttzaylo acetonide (KENALOG) 0.5 % cream APPLY TO THE AFFECTED AREA(S) EXTERNALLY TWICE DAILY NEEDED 0 08/20/2021 ActiveStart: 02-12-2021 End: 74-31-4703Dnlrckrglklgl Acetonide 0.5 % cream Discontinued 1 APPLIC TOPICAL Twice daily as needed for Rash February 12, 2021 1:00am April 09, 2021 7:30amtriamcinolone (Kenalog) 0.5 % cream ActiveTriamcinolone Acetonide 0.5 % 1 application to affected area Externally Twice a day prn ActiveComment on above: APPLY TO THE AFFECTED AREA(S) EXTERNALLY TWICE DAILY NEEDEDvancomycin 1000 mg injection (20 sources)Glycopeptide AntibacterialStart: 02-02-2023 End: 83-46-1502gyzb 1 g intravenously every twelve hoursVancomycin 1,000 mg Recon Soln Discontinued 1 GM IV Q12H February 02, 2023 1:00am February 09, 2023 3:44pm pharmacy to manage vancomycin dosingStart: 02-02-2023 End: 93-73-5566rhii 1 g intravenously every twelve hoursVancomycin Discontinued 1 GM IV Q12H February 02, 2023 1:00am February 09, 2023 3:44pm pha rmacy to manage vancomycin dosing (10 sources)Start: 10-17-2021 End: 65-95-2169Wcxck: 10-09-2021 Problems Active Problems Problem ClassificationProblemDateDocumented DateEpisodic/ChronicAcquired foot deformities (20 sources)Acquired hammer toe of lesser toe of left foot; Translations: [Other hammer toe(s) (acquired), leftfoot]Onset: 193209-47-5657IaywevgKxqbk bronchitis (3 sources)Acute bronchitis; Translations: [Acute bronchitis, unspecified] 94-32-1537GgjkrxjxJoecj cerebrovascular disease (20 sources)Cerebrovascular accident; Translations: [Cerebral infarction, unspecified]77-28-4599VqkwwkuMqdomtwlupzydv/social admission (20 sources)Counseling procedure with explicit context; Translations: [Tobacco abuse counseling]99-09-8811YxfvovypTmvqsrsm (1 source)Artificial lens present; Translations: [Presence of intraocular lens] 27-51-6120QgpblpoDlhjhhq kidney disease (20 sources)Chronic kidney disease stage 2; Translations: [Chronic kidney disease, stage 2 (mild)]Onset: 08-19-2021 Resolved: 980898-26-0624OrsyirvSyqgqwt obstructive pulmonary disease and bronchiectasis (20 sources)Bronchitis; Translations: [Bronchitis, not specified as acute or chronic]41-42-6550QixoyqkxFlgempt ulcer of skin (20 sources)Non-pressure chronic ulcer of other part of left foot with unspecified severity; Translations: [Non-pressure chronic ulcer of other part of left foot with necrosis of bone]Onset: 10-29-2021 Resolved: 15-63-7790HibiwxhMjcgygllkprlz of surgical procedures or medical care (20 sources)Postoperative hypothyroidism; Translations: [Postprocedural hypothyroidism]Onset: 252749-34-8952MqlrpliXgeqkrgiafxtb of surgical procedures or medical care (20 sources)Postoperative seroma; Translations: [Other specified complications of surgical and medical care, not elsewhere classified, initial encounter] 95-76-5455MsndpdxaCrvzjenout associated with dizziness or vertigo (20 sources)Benign paroxysmal positional vertigo; Translations: [Benign paroxysmal vertigo, left ear]42-36-8176KzzccoduOoopetnfes and other anemia (20 sources)Increased hemoglobin; Translations: [Other hemoglobinopathies]Onset: 015615-00-5389WncgfbvXuxtclri mellitus with complications (20 sources)Type 2 diabetes mellitus; Translations: [Type 2 diabetes mellitus with diabetic peripheral angiopathy without gangrene]Onset: 12-09-2020 Resolved: 26-72-0920ExeprthWnacdndu mellitus without complication (20 sources)Diabetes mellitus; Translations: [Type 2 diabetes mellitus without complications]29-15-3154TxjhwpzPsfyfbvv of white blood cells (20 sources)Neutrophilia; Translations: [Disorder of white blood cells, unspecified]Onset: 01-16-2021 Resolved: 953434-36-7387CoagcscIqhketcdq of lipid metabolism (20 sources)Hypercholesterolemia; Translations: [Pure hypercholesterolemia] Onset: 10-03-2020 Resolved: 806455-16-7132PlnoyquZgmtloiiya disorders (20 sources)Gastroesophageal reflux disease; Translations: [Gastro-esophageal reflux disease without esophagitis]Onset: 946061-40-7630IstabnuGvrxvoaks hypertension (20 sources)Essential hypertension; Translations: [Essential (primary) hypertension]Onset: 754115-85-6932JrpwnfyJrkdonhm cause codes: Natural/environment (1 source)Overexertion from prolonged static or awkward postures, initial encounter; Translations: [OVEREXERTPROLNG STAT/AWK PST INIT]Onset: 03-17-2019 Gangrene (20 sources)Gangrenous disorder; Translations: [Gangrene, not elsewhere classified]90-34-6191QkodlmsgYncyawsv disorders (10 sources)Secondary immune deficiency disorder; Translations: [Immunodeficiency due to conditions classified elsewhere ([facility])]Onset: 852434-93-6918EyqixaqUoifpejjevrzu and screening for infectious disease (2 sources)Needs influenza immunization; Translations: [Encounter for immunization]38-24-3673HjnqzbadLqfcijdes arthritis and osteomyelitis (except that caused by tuberculosis or sexually transmitted disease) (20 sources)Osteomyelitis; Translations: [Osteomyelitis, unspecified]Onset: 694548-09-4604SskvxkzFjpbhfd and fatigue (20 sources)Right hemiparesis; Translations: [Weakness]97-19-5428Yopwkvfn Miscellaneous mental health disorders (20 sources)Chronic insomnia; Translations: [Psychophysiologic insomnia]Onset: 430934-64-6367NhojnvlLgdp disorders (20 sources)Moderate major depression ; Translations: [Major depressive disorder, single episode, moderate]Onset: 871842-18-6762IkjfrejCdyzskc (6 sources)Candidiasis of skin; Translations: [Candidiasis of skin and nail] 27-14-5684LgfytjsdLxgwudjsqvj deficiencies (20 sources)Undernutrition; Translations: [Unspecified protein-calorie malnutrition]Onset: 723670-23-1721ViexnyvMffd wounds of extremities (20 sources)Amputated toe of right foot; Translations: [Complete traumatic amputation of one right lesser toe, initial encounter]Onset: 11-67-1304Sqhfwrd Open wounds of extremities (1 source)Amputated toe of left foot; Translations: [Complete traumatic amputation of one left lesser toe, initial encounter]ChronicOther acquired deformities (20 sources)Lumbar spondylolisthesis; Translations: [Spondylolisthesis, lumbar region]41-23-0658HpazkanlNiplt aftercare (1 source)Other group home (current) drug therapy; Translations: [OTH HALF-WAY CURRENT DRUG THERAPY]Onset: 06-94-1188NlklxopnYyzmn aftercare (20 sources)Wound finding; Translations: [Encounter for other specified aftercare]73-74-1050HonlpuvvKmbng aftercare (20 sources)Surgical follow-up; Translations: [Encounter for follow-up examination after completed treatment for conditions other than malignant neoplasm]13-31-7625LlcrbhoqFzqsa aftercare (20 sources)Encounter for follow-up examination after completed treatment for conditions other than malignant neoplasm; Translations: [Follow-up examination, following surgery, unspecified]16-13-7947PhcbezpkOtzfy bone disease and musculoskeletal deformities (12 sources)Acquired absence of other left toe(s); Translations: [Other toe(s) amputation status]83-82-2656OhamdgovQaany bone disease and musculoskeletal deformities (12 sources)Acquired absence of other right toe(s); Translations: [Other toe(s) amputation status]84-88-6878LepxpkckCunzq circulatory disease (4 sources)Carotid bruit; Translations: [Other specified symptoms and signs involving the circulatory and respiratory systems]45-92-5668FpwstbreJkift connective tissue disease (20 sources)Foot pain; Translations: [Pain in right foot]78-63-4332AtelhbdiUyoxm connective tissue disease (8 sources)Pain in right foot; Translations: [Pain in limb]93-71-7457Rowndnxw Other connective tissue disease (9 sources)Pain in both feet; Translations: [Pain in right foot]02-21-2023 EpisodicOther endocrine disorders (2 sources)Hyperparathyroidism; Translations: [Hyperparathyroidism, unspecified] 15-44-4353MhxzdmzPyhfj gastrointestinal disorders (2 sources)Diarrhea; Translations: [Diarrhea, unspecified]68-79-1258Lztxpzvb Other hematologic conditions (6 sources)Secondary polycythemia; 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]Onset: 766360-17-1451YhaywnpgMtfla infections; including parasitic (20 sources)Disorder due to infection; Translations: [Unspecified infectious disease]46-16-3570EvnsimjxFtfge infections; including parasitic (13 sources)Unspecified infectious disease; Translations: [Unspecified infectious and parasitic diseases]10-86-7747KchvrfsyYyluu injuries and conditions due to external causes (20 sources)Local infection of wound; Translations: [Other injury of unspecified body region, initial encounter]21-57-5044ZqsxtrofPvtgq injuries and conditions due to external causes (20 sources)Hematoma; Translations: [Other injury of unspecified body region, initial encounter]69-21-1116GuyxdguuGplar injuries and conditions due to external causes (20 sources)Other injury of unspecified body region, initial encounter; Translations: [Contusion of unspecifiedsite]58-23-7791TcmhkwvwGlivy injuries and conditions due to external causes (14 sources)Surgical wound finding; Translations: [Other injury of unspecified body region, initial encounter]Onset: 08-11-2022 Resolved: 268376-45-9144VhvivcxiOzlqa injuries and conditions due to external causes (8 sources)Open wound; Translations: [Other injury of unspecified body region, initial encounter]92-59-5872CyukagihDylqx liver diseases (20 sources)Fatty (change of) liver, not elsewhere classified; Translations: [Other chronic nonalcoholic liver disease]Onset: hronic Other lower respiratory disease (4 sources)Dyspnea; Translations: [Shortness of breath]59-13-2564HmiizzepLnjwp lower respiratory disease (3 sources)Cough; Translations: [Acute cough]10-67-8717AiurtzgkSwgjv nervous system disorders (20 sources)Chronic pain; Translations: [Other chronic pain]62-59-5471Yqcjbah Other nervous system disorders (18 sources)Cubital tunnel syndrome; Translations: [Lesion of ulnar nerve, right upper limb]ChronicOther nervous system disorders (18 sources)Carpal tunnel syndrome; Translations: [Carpal tunnel syndrome, right upper limb]ChronicOther nervous system disorders (20 sources)Peripheral nerve disease ; Translations: [Polyneuropathy, unspecified]Onset: 990032-65-1943KjzmahlSisjo nervous system disorders (8 sources)Carpal tunnel syndrome of right wrist; Translations: [Carpal tunnel syndrome, right upper limb]97-07-3700WcaaorxWzttc nervous system disorders (8 sources)Lesion of ulnar nerve, right upper limb; Translations: [Cubital tunnel syndrome on right]26-91-2151EzfuxwrYocvn nervous system disorders (2 sources)Polyneuropathy associated with another disorder; Translations: [Polyneuropathy in diseases classified elsewhere]18-24-1887NtvoxfzEgopv nervous system disorders (5 sources)Metabolic encephalopathy; Translations: [Septic encephalopathy]Onset: 524509-88-2911MasdecwCfefh nervous system disorders (1 source)Other chronic pain; Translations: [Other chronic pain]Onset: 29-85-0439JjvrzodYfeib nervous system disorders (18 sources)Nervous system symptoms; Translations: [Other abnormalities of gait and mobility]EpisodicOther nervous system disorders (20 sources)Postoperative pain ; Translations: [Other acute postprocedural pain] 35-86-8903CohokggfVamlz nervous system disorders (8 sources)Impairment of balance; Translations: [Other abnormalities of gait and mobility]81-76-8242PatcxcrhQfbid nutritional; endocrine; and metabolic disorders (20 sources)Morbid obesity; Translations: [Morbid (severe) obesity due to excess calories]Onset: 085122-67-0452CsxsycsFfkvy nutritional; endocrine; and metabolic disorders (20 sources)Body mass index 40+ - severely obese; Translations: [Body mass index (BMI) 40.0-44.9, adult]71-61-2649LqszkzaGcevw nutritional; endocrine; and metabolic disorders (20 sources)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; Translations: [Other disorders of plasma-protein metabolism, not elsewhere classified] 65-25-4727KdtlhiaWtshc nutritional; endocrine; and metabolic disorders (11 sources)Other disorders of plasma-protein metabolism, not elsewhere classified; Translations: [Other disorders of plasma protein metabolism] 71-02-1938NbsohxcJqrys nutritional; endocrine; and metabolic disorders (20 sources)Morbid (severe) obesity due to excess calories; Translations: [Morbid obesity]93-72-8932OrlcaybFkslg nutritional; endocrine; and metabolic disorders (2 sources)Severe obesity; Translations: [Class 3 severe obesity due to excess calories with serious comorbidity and body mass index (BMI) of 40.0 to 44.9 in adult ([facility])]08-90-8794JrylqimYlfjo screening for suspected conditions (not mental disorders or infectious disease) (2 sources)Cancer cervix screening status; Translations: [Encounter for screening for malignant neoplasm of cervix]13-10-8017OctcprlsCzbye skin disorders (20 sources)Swelling of lower leg; Translations: [Localized swelling, mass and lump, unspecified lower limb]87-47-2607AkflowijGjwcs upper respiratory infections (20 sources)Chronic pansinusitis; Translations: [Chronic pansinusitis]Onset: 10-03-2020 Resolved: 426885-67-5377GmcnnsdGvyvlaqjeq and visceral atherosclerosis (20 sources)Peripheral vascular disease, unspecified; Translations: [Atherosclerosis of [place] arteries of extremities with rest pain, bilateral legs]Onset: 03-06-2021 Resolved: 06-83-9909GrkmcbaVdzkgiqu codes; unclassified (20 sources)Obstructive sleep apnea syndrome; Translations: [Obstructive sleep apnea (adult) (pediatric)]Onset: 056145-26-0656CsdtnspHmkzkguf codes; unclassified (20 sources)Tobacco user; Translations: [Tobacco use]32-45-8714UketvecyEubsiyyf codes; unclassified (20 sources)Postprocedural state finding; Translations: [Other specified postprocedural states]54-29-0841HpatoxhtYvlqveka codes; unclassified (20 sources)Postoperative state; Translations: [Other specified postprocedural states]07-25-8588YloylfxeOwbyhyfr codes; unclassified (11 sources)Other specified postprocedural states; Translations: [Other postprocedural status]53-84-5410JxehihdwDelaxulr codes; unclassified (11 sources)Tobacco use; Translations: [Tobacco use disorder]15-51-1423Wcctzhsj Residual codes; unclassified (12 sources)Altered mental status; Translations: [Altered mental status, unspecified]79-73-1063LcxgxlroYgjyrvsr codes; unclassified (1 source)Altered mental status, unspecified; Translations: [Altered mental status, unspecified]Onset: 59-27-3250PnnsxaqaValzjgy detachments; defects; vascular occlusion; and retinopathy (4 sources)Central retinal vein occlusion with macular edema; Translations: [Central retinal vein occlusion, right eye, with macular edema]Onset: 12-27-2024 40-14-9008VkznsxeXwdj and subcutaneous tissue infections (20 sources)Cellulitis; Translations: [Cellulitis, unspecified]Onset: 08-11-2022 Resolved: 851073-21-8683DkrwimufCqhqmeztgnq; intervertebral disc disorders; other back problems (20 sources)Cervicalgia; Translations: [Spinal stenosis of lumbar region]Onset: 05-22-2017 Resolved: 051749-27-8364YsywetepRoyifor and strains (20 sources)Strain of muscle, fascia and tendon at neck level, initial encounter; Translations: [Strain of other muscles, fascia and tendons at shoulder and upper arm level, left arm, initial encounter]Onset: 03-17-2019 06-38-5661NhgcshgeCqolgxoxcxc injury; contusion (20 sources)Contusion of knee; Translations: [Contusion of right knee, initial encounter]81-93-1796PkfydugkUhojhvu disorders (20 sources)Toxic multinodular goiter; Translations: [Thyrotoxicosis with toxic multinodular goiter without thyrotoxic crisis or storm]Onset: 07-28-2021 Resolved: 596291-92-0328GkwxrhcMjinfohgctyn (8 sources)Call office on Wednesday to schedule follow-up with Neurology. Unclassified (10 sources)Call office on Wednesday to schedule follow-up with Podiatry. Unclassified (8 sources)Call office on Wednesday to schedule follow-up with Vascular Surgery. Unclassified (5 sources)Call office on Wednesday to schedule follow-up with your Primary Care Provider within 3-5 days of discharge.Unclassified (2 sources)Metabolic dysfunction-associated steatotic liver disease (MASLD) 63-43-3796Wnvjiaiyqtqs (2 sources)Call office on Wednesday to schedule follow-up with Vascular in the near future.Unclassified (1 source)Low back pain, unspecified; Translations: [Low back pain, unspecified] Onset: 12-29-2024 Past or Other Problems Problem ClassificationProblemDateDocumented DateEpisodic/ChronicAcquired foot deformities (20 sources)Acquired hammer toe of lesser toe of right foot; Translations: [Other hammer toe(s) (acquired), right foot]Onset: 08-11-2022 Resolved: 325535-63-2271PsunlsyKqkzfza dysrhythmias (20 sources)Palpitations; Translations: [Palpitations]Onset: 04-30-2021 Resolved: 467900-44-7689ZaugexytPioi disorders (20 sources)Mood disordersOnset: Other aftercare (1 source)Encounter for surgical aftercare following surgery on the circulatory systemOnset: 10-29-2021 Resolved: 39-36-2955AnrtiukmAcsbi aftercare (2 sources)Patient encounter status; Translations: [Other salvage determiner (current) drug therapy]05-99-7808UtsgnwtnIfgwi and unspecified benign neoplasm (20 sources)History of polyp of colon; Translations: [Personal history of colonic polyps]Onset: 155189-40-2714YdmetwkiDbhki bone disease and musculoskeletal deformities (20 sources)History of amputation of right foot; Translations: [Acquired absence of other right toe(s)]Onset: 06-03-2021 Resolved: 070143-01-7355QgydpyzcNzhyp bone disease and musculoskeletal deformities (20 sources)History of amputation of left foot; Translations: [Acquired absence of other left toe(s)]Onset: 06-03-2021 Resolved: 906416-66-3709WrygxhezLrxsk circulatory disease (20 sources)History of cerebrovascular accident without residual deficits; Translations: [Personal history of transient ischemic attack (TIA), and cerebral infarction without residual deficits]Onset: 920535-51-7541QimpbwivBtrqa connective tissue disease (20 sources)Pain of left calf; Translations: [Pain in left lower leg]Onset: 11-09-2022 Resolved: 946136-78-3952EvursxrzNkapj hematologic conditions (20 sources)Erythrocytosis; Translations: [Secondary polycythemia]Onset: 11-25-2022 Resolved: 595833-33-5269KqhldnwpWvfcp nervous system disorders (1 source)Other acute postprocedural painOnset: 11-03-2021 Resolved: 67-43-3168InvtexmrIemsm nervous system disorders (20 sources)Drug-induced myopathy; Translations: [Toxic myopathy]Onset: 08-20-2024 Resolved: 698349-45-1036FzvoccasWrssg upper respiratory disease (20 sources)Allergic rhinitis; Translations: [Allergic rhinitis, unspecified] Onset: 06-20-2015 Resolved: 393944-67-4828XbvpfnmMyzhwfheg and history of mental health and substance abuse codes (20 sources)Ex-smoker; Translations: [Personal history of nicotine dependence] Onset: 463633-07-5047TectqzyhBtaqakgcnkt; intervertebral disc disorders; other back problems (20 sources)Degeneration of intervertebral disc; Translations: [Other intervertebral disc degeneration, lumbar region]Onset: 09-11-2019 Resolved: 873650-04-5817BjpgxjqYkjsohoichqz (4 sources)Wound drainage; Translations: [Wound drainage]Unclassified (2 sources)Cancer cervix screening btjuyw57-25-1633Kxgydssmqgpo (2 sources)Foot ulcer, left, with fat layer exposed (HCC)12-12-2024 Results Test NameValueInterpretationReference RangeFacilityCNPNon 37-90-8996LNCO Telephone (OPHTLN) EMA NEFF ([id number]) 1965 F Date Time Provider Department 01/09/25 SANDRA GOETZ OPHAdy During your visit today, we recorded the following information about you: Venita Sauceda 01/09/2025 2:31 PM Signed Patient called and stated that since her last injection of OD (12/27/24) she has no vision. Eye migraine headache. She is unable to come in due to other appointments and would like to have a prescription called in to her pharmacy for the migraines. Thank you Carolyn Bautista RN 01/09/2025 3:47 PM Signed Attempted to call patient, no answer. LVM to call back. Carolyn Collins RN 01/10/2025 7:44 AM Signed Attempted to call patient no answer. LVM to call back. Allergies As of Date: 01/09/2025 Noted Allergy Reaction HYDROCODONE 11/03/2021 1 - Mental Status Change PREDNISONE 04/25/2021 14 - Other: See Comments 16 - Unknown KEEGAN INHIBITORS 04/25/2021 3 - Cough METFORMIN 04/25/2021 8 - GI Upset 14 - Other: See Comments PIOGLITAZONE 04/25/2021 3 - Cough 14 - Other: See Comments ULTMGWT-PWV-HXR REDUCTASE INHIBIT*04/25/2021 14 - Other: See Comments Comments: myalgia Date Reviewed: 01/01/2023 Reviewed by: Sandra Goetz MD - Fully Assessed Prescriptions as of 01/15/2025 - aspirin 81 mg chewable tablet 81 mg once daily. - ergocalciferol 50,000 unit capsule (VITAMIN D2, DRISDOL) Take 1.25 mg by mouth. - zolpidem (AMBIEN) 5 mg tablet Take 5 mg by mouth. - amitriptyline (ELAVIL) 25 mg tablet Take 25 mg by mouth daily at bedtime. - atorvastatin (LIPITOR) 20 mg tablet Take 40 mg by mouth once daily. - clopidogrel (PLAVIX) 75 mg tablet Take 75 mg by mouth once daily. - cyclobenzaprine (FLEXERIL) 10 mg tablet TAKE 1 TABLET BY MOUTH AT BEDTIME DAILY NEEDED - DULoxetine (CYMBALTA) 30 mg capsule Take 30 mg by mouth once daily. - fluticasone (FLONASE) 50 mcg/actuation nasal spray INHALE TWO SPRAYS NASALLY EVERY DAY IN EACH NOSTRIL NEEDED - gabapentin (NEURONTIN) 800 mg tablet Take 800 mg by mouth four times daily. - glimepiride (AMARYL) 4 mg tablet Take 4 mg by mouth once daily. - levothyroxine (SYNTHROID) 100 mcg tablet Take 150 mcg by mouth once daily. - losartan (COZAAR) 50 mg tablet Take 50 mg by mouth once daily. - meclizine (ANTIVERT) 25 mg tab Take 25 mg by mouth once daily as needed. - meloxicam (MOBIC) 15 mg tablet Take 15 mg by mouth once daily. - methIMAzole (TAPAZOLE) 10 mg tablet Take 10 mg by mouth once daily. - metoprolol succinate ER (TOPROL XL) 25 mg 24 hr tablet Take 50 mg by mouth once daily. - nystatin (MYCOSTATIN) ointment 1 (ONE) application to skin TWICE DAILY - ondansetron (ZOFRAN) 8 mg tablet Take 8 mg by mouth every 8 hours as needed. - OZEMPIC 0.25 mg or 0.5 mg(2 mg/1.5 mL) pen injector INJECT 0.5MG SUBCUTANEOUSLY ONCE WEEKLY FOR FOUR WEEKS THEN 1MG ONCE A WEEK - propylthiouracil 50 mg tablet Take 50 mg by mouth twice daily. - triamcinolone acetonide (KENALOG) 0.5 % cream APPLY TO THE AFFECTED AREA(S) EXTERNALLY TWICE DAILY NEEDED Problem List As Of Date: 01/09/2025 (None) Encounter Status:Closed by VENITA SAUCEDA on 01/15/25[facility] Metabolic Panelon 89-91-9153Tokjy gap [Moles/Vol]11.6 mmol/L Normal6.0-15.0[facility] Physician GroupComment on above:Performed By: #### BMP ####[place] [address] [place] Calcium [Mass/Vol]8.4 mg/dLLow8.6-10.3[facility] Physician [facility] HospitalComment on above:Performed By: #### BMP ####[address] [address] USAChloride [Moles/Vol]104 mmol/WFbcgeg85-345Too [facility] Physician [facility] HospitalComment on above:Performed By: #### BMP ####[place] [address] USACO2 [Moles/Vol]26.0 mmol/XXyexua06.0-31.0The [facility] Hospital Of ErieComment on above:Performed By: #### BMP ####[address] [address] USACreatinine [Mass/Vol]0.86 mg/dLNormal0.60-1.20[facility] Comment on above:Performed By: #### BMP ####[address] [address] USACreatinine Clr Calc Rbjajaet17.86NormHCA Florida Trinity Hospital Physician GroupComment on above:Result Comment: PERFORMED BY: [facility] [address] [id number] PATHOLOGIST EDUCATION COUNSELOR MOHINDER GUTIERREZ M.D.Performed By: #### BMP ####[place] [address] [place] [id number] USAGFR/1.73 sq M.predicted MDRD (S/P/Bld) [Vol rate/Area]mL/min/{1.73_m2}NormalThe [facility] Physician GroupComment on above:Performed By: #### BMP ####[place] [address] USAGlucose [Mass/Vol]166 mg/dZIned23-681Agp [facility] Physician GroupComment on above:Result Comment: Random Glucose Reference Range is dependent on time and content of last meal. Glucose of more than 200 mg/dL in a nonstressed, ambulatory subject supports the diagnosis of Diabetes Mellitus. ADA recommended reference rangePerformed By: #### BMP ####[place] [address] USAPotassium [Moles/Vol]3.6 mmol/LNormal3.5-5.1The [facility] Physician GroupComment on above:Performed By: #### BMP ####[place] [address] USASodium [Moles/Vol]138 mmol/QKecxzy407-290Lwm [facility] Physician GroupComment on above:Performed By: #### BMP ####[place] [address] USAUrea nitrogen [Mass/Vol]15 mg/dLNormal7-25The [facility] Physician GroupComment on above:Performed By: #### BMP ####[place] [address] USAComplete Blood Count Auto Diffon [id number] (Bld) [#/Vol]0.1 10*3/uLNormal0.0-0.2The [facility] Physician GroupComment on above:Order Comment: Comment add onResult Comment: PERFORMED BY: [place] [address] PATHOLOGIST EDUCATION COUNSELOR MOHINDER GUTIERREZ M.D.Performed By: #### ESR #### [place] [address] USABasophils/100 WBC (Bld)0.4 %Normal.The [facility] Physician GroupComment on above:Order Comment: Comment add onPerformed By: #### ESR #### [place] [address] USAEosinophils (Bld) [#/Vol]0.1 10*3/uLNormal0.0-0.45The [facility] Physician GroupComment on above:Order Comment: Comment add onPerformed By: #### ESR #### [place] [address] USAEosinophils/100 WBC (Bld)0.9 %Normal.The [facility] Physician GroupComment on above:Order Comment: Comment add onPerformed By: #### ESR #### [place] [address] USAErythrocyte distribution width (RBC) [Ratio]17.4 %High 11.9-15.3The [facility] Physician GroupComment on above:Order Comment: Comment add onPerformed By: #### ESR #### [place] [address] USAHematocrit (Bld) [Volume fraction]51.7 %High34.0-46.4The [facility] Physician GroupComment on above:Order Comment: Comment add onPerformed By: #### ESR #### [place] [address] USAHemoglobin (Bld) [Mass/Vol]16.6 g/wSStsw04.8-15.4The [facility] Physician GroupComment on above:Order Comment: Comment add onPerformed By: #### ESR #### [place] [address] USALymphocytes (Bld) [#/Vol]2.2 10*3/uLNormal1.00-4.8The [facility] Physician GroupComment on above:Order Comment: Comment add onPerformed By: #### ESR #### [place] [id number] USALymphocytes/100 WBC (Bld)16.7 %Normal.The [facility] Physician GroupComment on above:Order Comment: Comment add onPerformed By: #### ESR #### [address] (RBC) [Entitic mass]27.6 dnHkjilg51.7-34.3The [facility] Physician GroupComment on above:Order Comment: Comment add onPerformed By: #### ESR #### [address] (RBC) [Entitic vol]85.8 sJOoccoa76-915Zar [facility] Physician GroupComment on above:Order Comment: Comment add onPerformed By: #### ESR #### [place] [address] USAMean Corpuscular HGB Conc32.1 g/tFEzljja42.0-35.0The [facility] Physician GroupComment on above:Order Comment: Comment add onPerformed By: #### ESR #### [place] [address] USAMonocytes (Bld) [#/Vol]1.1 10*3/uLHigh0.0-0.8The [facility] Physician GroupComment on above:Order Comment: Comment add onPerformed By: #### ESR #### [place] [id number] USAMonocytes/100 WBC (Bld)8.4 %Normal.The [facility] Physician GroupComment on above:Order Comment: Comment add onPerformed By: #### ESR #### [place] [address] USANeutrophils (Bld) [#/Vol]9.8 10*3/uLHigh1.8-7.7The [facility] Physician GroupComment on above:Order Comment: Comment add onPerformed By: #### ESR #### [facility] [address] [place], [place] [address] USANeutrophils/100 WBC (Bld)73.6 %Normal.The [facility] Physician GroupComment on above:Order Comment: Comment add onPerformed By: #### ESR #### [facility] [address] [place] [address] USANRBC%0.1 /100{WBC}Normal0-0.5The [facility] Comment on above:Order Comment: Comment add onPerformed By: #### ESR #### [facility] [address] [place] [address] USAPlatelet mean volume (Bld) [Entitic vol]7.3 fLNormal 6.3-10.7The [facility] Physician GroupComment on above:Order Comment: Comment add onPerformed By: #### ESR #### [facility] [address] [place] [address] USAPlatelets (Bld) [#/Vol]273 10*3/xZDjcneo974-108Omq [facility] Physician GroupComment on above:Order Comment: Comment add onPerformed By: #### ESR #### [facility] [address] [place] [address] USARBC (Bld) [#/Vol]6.03 10*6/uLHigh3.60-5.00The [facility] Physician GroupComment on above:Order Comment: Comment add onPerformed By: #### ESR #### [facility] [address] [place] [address] USAWBC (Bld) [#/Vol]13.3 10*3/uLHigh3.8-11.6The [facility] Physician GroupComment on above:Order Comment: Comment add onPerformed By: #### ESR #### [facility] [address] [place] [address] USAWhite Blood Count13.3 [CFU]/mLHigh3.8-11.6The [facility] Physician GroupComment on above:Order Comment: Comment add onPerformed By: #### ESR #### [address] [address] USAVancomycin,Peakon 10-27-1990Kuvrizsfuj,Peak23.3Normal 20.0-40.0The [facility] Physician GroupComment on above:Order Comment: Comment add onResult Comment: Last dose: - PERFORMED BY: [place] [address] PATHOLOGIST EDUCATION COUNSELOR MOHINDER GUTIERREZ M.D.Performed By: #### ESR #### [place] [id number] USAVancomycin,Troughon 76-56-0722Ntvcscqsgm,Hnlast38.3High 10.0-20.0The [facility] Physician GroupComment on above:Order Comment: Comment add onResult Comment: Last dose: - PERFORMED BY: [place] [id number] PATHOLOGIST EDUCATION COUNSELOR MOHINDER GUTIERREZ M.D.Performed By: #### ESR #### [place] [id number] USABasic Metabolic Panelon 01-87-9739Dntsl gap [Moles/Vol] 15.5 mmol/LHigh6.0-15.0The [facility] Physician GroupComment on above:Performed By: #### CRP, MG, BMP, CBC #### [address] [address] USACalcium [Mass/Vol]8.7 mg/dLNormal8.6-10.3The [facility] Physician GroupComment on above:Performed By: #### CRP, MG, BMP, CBC #### [address] [address] USAChloride [Moles/Vol]99 mmol/HLzmhic39-215Cvc [facility] Physician GroupComment on above:Performed By: #### CRP, MG, BMP, CBC #### [place] [address] USACO2 [Moles/Vol]24.7 mmol/LJxtcsa08.0-31.0The [facility] Physician GroupComment on above:Performed By: #### CRP, MG, BMP, CBC #### [facility] [address] [place] [address] USACreatinine [Mass/Vol]0.68 mg/dLNormal0.60-1.20The [facility] Physician GroupComment on above:Performed By: #### CRP, MG, BMP, CBC #### [facility] [address] [place] [address] USACreatinine Clr Calc Aftpdnlt394.74NormalThe [facility] Physician GroupComment on above:Performed By: #### CRP, MG, BMP, CBC #### [facility] [address] [place] [address] USAGFR/1.73 sq M.predicted MDRD (S/P/Bld) [Vol rate/Area] mL/min/{1.73_m2}NormalThe [facility] Physician GroupComment on above:Performed By: #### CRP, MG, BMP, CBC #### [facility] [address] [place] [address] USAGlucose [Mass/Vol]124 mg/fCWekv10-610Njj [facility] Physician GroupComment on above:Result Comment: Random Glucose Reference Range is dependent on time and content of last meal. Glucose of more than 200 mg/dL in a nonstressed, ambulatory subject supports the diagnosis of Diabetes Mellitus. ADA recommended reference rangePerformed By: #### CRP, MG, BMP, CBC #### [facility] [address] [place] [address] USAPotassium [Moles/Vol]3.2 mmol/LLow3.5-5.1The [facility] Physician GroupComment on above:Performed By: #### CRP, MG, BMP, CBC #### [facility] [address] [place] [address] USASodium [Moles/Vol]136 mmol/RIydcvm387-896Azc [facility] Physician GroupComment on above:Performed By: #### CRP, MG, BMP, CBC #### [facility] [address] [place] [address] USAUrea nitrogen [Mass/Vol]9 mg/dLNormal7-25The [facility] Physician GroupComment on above:Performed By: #### CRP, MG, BMP, CBC #### [place] [address] USAC-Reactive Proteinon [id number]-Reactive Protein0.5 mg/dL Normal0.0-0.5The [facility] Physician GroupComment on above:Result Comment: PERFORMED BY: [place] [address] PATHOLOGIST EDUCATION COUNSELOR MOHINDER GUTIERREZ M.D.Performed By: #### CRP, MG, BMP, CBC #### [place] [address] USAComplete Blood Count Auto Diffon [id number] (Bld) [#/Vol]0.1 10*3/uLNormal0.0-0.2The [facility] Physician GroupComment on above: Result Comment: PERFORMED BY: [place] [address] PATHOLOGIST EDUCATION COUNSELOR MOHINDER GUTIERREZ M.D.Performed By: #### CRP, MG, BMP, CBC #### [place] [address] USABasophils/100 WBC (Bld)0.4 %Normal.[facility] Physician GroupComment on above:Performed By: #### CRP, MG, BMP, CBC #### [place] [address] USAEosinophils (Bld) [#/Vol]0.0 10*3/uLNormal0.0-0.45The [facility] Physician GroupComment on above:Performed By: #### CRP, MG, BMP, CBC #### [place] [address] USAEosinophils/100 WBC (Bld)0.2 %Normal.The [facility] Physician GroupComment on above:Performed By: #### CRP, MG, BMP, CBC #### [place] [address] USAErythrocyte distribution width (RBC) [Ratio]17.6 %High 11.9-15.3The [facility] Physician GroupComment on above:Performed By: #### CRP, MG, BMP, CBC #### [place] [address] USAHematocrit (Bld) [Volume fraction]48.6 %High34.0-46.4The [facility] Physician GroupComment on above:Performed By: #### CRP, MG, BMP, CBC #### [place] [address] USAHemoglobin (Bld) [Mass/Vol]15.8 g/aADgyp28.8-15.4The [facility] Physician GroupComment on above:Performed By: #### CRP, MG, BMP, CBC #### [place] [address] USALymphocytes (Bld) [#/Vol]2.5 10*3/uLNormal1.00-4.8The [facility] Physician GroupComment on above:Performed By: #### CRP, MG, BMP, CBC #### [place] [address] USALymphocytes/100 WBC (Bld)14.6 %Normal.The [facility] Physician GroupComment on above:Performed By: #### CRP, MG, BMP, CBC #### [place] [address] USAMCH (RBC) [Entitic mass]27.8 gyQmiegb66.7-34.3The [facility] Physician GroupComment on above:Performed By: #### CRP, MG, BMP, CBC #### [place] [address] USAMCV (RBC) [Entitic vol]85.2 cSKfvnnv47-299Tcb [facility] Physician GroupComment on above:Performed By: #### CRP, MG, BMP, CBC #### [place] [address] USAMean Corpuscular HGB Conc32.6 g/hPNpivce49.0-35.0The [facility] Physician GroupComment on above:Performed By: #### CRP, MG, BMP, CBC #### [facility] [address] [place] [address] USAMonocytes (Bld) [#/Vol]1.3 10*3/uLHigh0.0-0.8The [facility] Physician GroupComment on above:Performed By: #### CRP, MG, BMP, CBC #### [place] [address] USAMonocytes/100 WBC (Bld)7.7 %Normal.The [facility] Physician GroupComment on above:Performed By: #### CRP, MG, BMP, CBC #### [place] [address] USANeutrophils (Bld) [#/Vol]13.1 10*3/uLHigh1.8-7.7The [facility] Physician GroupComment on above:Performed By: #### CRP, MG, BMP, CBC #### [place] [address] USANeutrophils/100 WBC (Bld)77.1 %Normal.The [facility] Physician GroupComment on above:Performed By: #### CRP, MG, BMP, CBC #### [place] [address] USANRBC%0.1 /100{WBC}Normal0-0.5The [facility] Comment on above:Performed By: #### CRP, MG, BMP, CBC #### [place] [address] USAPlatelet mean volume (Bld) [Entitic vol]7.6 fLNormal 6.3-10.7The [facility] Physician GroupComment on above:Performed By: #### CRP, MG, BMP, CBC #### [place] [address] USAPlatelets (Bld) [#/Vol]282 10*3/rKRpojvk939-453Mhj [facility] Physician GroupComment on above:Performed By: #### CRP, MG, BMP, CBC #### [place] [address] USARBC (Bld) [#/Vol]5.70 10*6/uLHigh3.60-5.00The [facility] Physician GroupComment on above:Performed By: #### CRP, MG, BMP, CBC #### [place] [address] USAWBC (Bld) [#/Vol]17.0 10*3/uLHigh3.8-11.6The [facility] Physician GroupComment on above:Performed By: #### CRP, MG, BMP, CBC #### [place] [address] USAWhite Blood Count17.0 [CFU]/mLHigh3.8-11.6The [facility] Physician GroupComment on above:Performed By: #### CRP, MG, BMP, CBC #### [place] [address] USAErythrocyte Sedimentation Rateon 97-20-1380DGW (Bld) [Velocity]38 mm/hHigh0-29The [facility] Physician GroupComment on above:Order Comment: Comment add onResult Comment: PERFORMED BY: [place] [address] PATHOLOGIST EDUCATION COUNSELOR MOHINDER GUTIERREZ M.D.Performed By: #### ESR #### [place] [address] USAMagnesiumon 44-81-2618Kwmvxkmma [Mass/Vol]1.7 mg/dLLow 1.9-2.7The [facility] Physician GroupComment on above:Result Comment: PERFORMED BY: [place] [address] PATHOLOGIST EDUCATION COUNSELOR MOHINDER GUTIERREZ M.D.Performed By: #### CRP, MG, BMP, CBC #### [place] [address] USAAlanine aminotransferase [Enzymatic activity/volume] in Serum or PlasmaOrdered By: Glenn Rock on 59-57-3296FLZ [Catalytic activity/Vol]9 U/LNormal7-52[facility]huja Medical CenterComment on above: Performed By: #### ESR #### [facility] [address] [place] [address] USAAlbumin [Mass/volume] in Serum or Plasma by Bromocresol green (BCG) dye binding methoOrdered By: Glenn Rock on 59-34-7026Trskroq BCG dye [Mass/Vol]4.0 g/dL3.5-5.7FProtestant Deaconess HospitalAlkaline phosphatase [Enzymatic activity/volume] in Serum or PlasmaOrdered By: Glenn Rock on 49-45-6176GUS [Catalytic activity/Vol]91 U/MSitfze23-549JqzplqparUniversity Hospitals Ahuja Medical CenterComment on above:Performed By: #### ESR #### [facility] [address] [place] [address] USAAmmonia [Moles/volume] in PlasmaOrdered By: Glenn Rock on 37-73-5413Krnbxtj (P) [Moles/Vol]32 umol/DLrwhjz46-75FewmucjjwUniversity Hospitals Ahuja Medical CenterComment on above:Result Comment: PERFORMED BY: [place] [address] PATHOLOGIST EDUCATION COUNSELOR MOHINDER GUTIERREZ M.D.Performed By: #### ESR #### [place] [address] USAAppearance of UrineOrdered By: Glenn Rock on 06-35-8514Uczbsmansx (U)ClearNormalClearUniversity Hospitals Ahuja Medical CenterComment on above:Order Comment: Comment add onPerformed By: #### ESR #### [place] [id number] USAAspartate aminotransferase [Enzymatic activity/volume] in Serum or PlasmaOrdered By: Glenn Rock on 90-70-6732QQI [Catalytic activity/Vol]16 U/AIqildq00-92DittmsflxUniversity Hospitals Ahuja Medical CenterComment on above: Performed By: #### ESR #### [place] [address] USABacteria [Presence] in Urine by AutomatedOrdered By: Glenn Rock on 25-22-3534Rpagcqgr Auto Ql (U)None seen [HPF]None Seen [facility]huja Medical CenterBasic Metabolic Panelon 51-14-0799Cxtpxyvdjx Clr Calc Tjalkmko167.35NormalThe [facility] Physician GroupComment on above: Performed By: #### VANCP #### [facility] [address] [place] [address] USAGFR/1.73 sq M.predicted MDRD (S/P/Bld) [Vol rate/Area] mL/min/{1.73_m2}NormalThe [facility] Physician GroupComment on above:Performed By: #### VANCP #### [facility] [address] [place] [address] USABasophils [#/volume] in Blood by Automated countOrdered By: Glenn Rock on 81-98-2545Pszpzgphr (Bld) [#/Vol]0.2 10*3/uLNormal0.0-0.2 [facility]ja Medical CenterComment on above:Performed By: #### VANCP #### [facility] [address] [place] [address] USABasophils/100 leukocytes in Blood by Automated count Ordered By: Glenn Rock on 90-95-3814Iubtvjaut/100 WBC (Bld)1.0 %Normal. [facility]huja Medical CenterComment on above:Performed By: #### VANCP #### [place] [address] USABilirubin Test strip Ql (U)Ordered By: Glenn Rock on 53-34-5999Odrbnwrbh Ql (U)NegativeNegativeUniversity Hospitals Ahuja Medical Center Bilirubin.direct [Mass/volume] in Serum or PlasmaOrdered By: Glenn Rock on 69-98-0075Zshxoynxq.direct [Mass/Vol]0.10 mg/dL0.03-0.18FProtestant Deaconess HospitalBilirubin.total [Mass/volume] in Serum or PlasmaOrdered By: Glenn Rock on 28-84-6292Piumgzucy [Mass/Vol]0.7 mg/dLNormal0.3-1.0[facility]ja Medical CenterComment on above:Performed By: #### ESR #### [facility] [address] [place] [id number] USABlood Cultureon 83-08-4937Fonwmcyp identified Cx Nom (Bld) BioFire BCID Panel results called at 1127 on 12/30/24 Gram Stain Gram Positive Cocci in Clusters ORGANISM: Staphylococcus sp coag neg (O:STACN) Aerobic SERINA Charge (PCMIC38) SUSCEPTIBILITY ORGANISM: O:STACN ANTIBIOTIC INTERPRETATION SERINA Azithromycin R >4 Ciprofloxacin R >2 Daptomycin S <0.5 Levofloxacin R >4 Linezolid S <1 Oxacillin R >2 Penicillin R >2 Tetracycline R >8 Trimethoprim/Sulfamethoxazole R >2 Vancomycin S 0.5 BioFire BCID Panel results called at 1127 on 12/30/24 Staphylococcus aureus DNA [Presence] by NADINE with non-probe detection in Positive blood culture Not detected Bacteroides fragilis DNA [Presence] by ANDINE with non-probe detection in Positive blood culture Not detected Mayda auris DNA [Presence] by NADINE with non-probe detection in Positive blood culture Not detected Mayda albicans DNA [Presence] by NADINE with non-probe detection in Positive blood culture Not detected Acinetobacter calcoaceticus-baumannii complex DNA [Presence] by NADINE with non- probe detection in Positive blood culture Not detected Cryptococcus neoformans or gattii 9002 Not detected Cephalosporin resistance blaCTX-M gene [Presence] by Molecular method Not Applicable Escherichia coli Not detected Enterobacterales DNA [Presence] by NADINE with non-probe detection in Positive blood culture Not detected Enterobacter cloacae complex DNA [Presence] by NADINE with non-probe detection in Positive blood culture Not detected Staphylococcus epidermidis DNA [Presence] by NADINE with non-probe detection in Positive blood culture Not detected Enterococcus faecalis DNA [Presence] by NADINE with non-probe detection in Positive blood culture Not detected Enterococcus faecium DNA [Presence] by NADINE with non-probe detection in Positive blood culture Not detected Mayda glabrata DNA [Presence] by NADINE with non-probe detection in Positive blood culture Not detected Haemophilus influenzae (reported as H flu) Not detected Carbapenem resistance blaIMP gene [Presence] by Molecular method Not Applicable Klebsiella aerogenes DNA [Presence] by NADINE with non-probe detection in Positive blood culture Not detected Klebsiella pneumoniae+Klebsiella variicola+Klebsiella quasipneumoniae DNA [Presence] by NADINE with non-probe detection in Positive blood culture Not detected Klebsiella oxytoca DNA [Presence] by NADINE with non-probe detection in Positive blood culture Not detected Carbapenem resistance blaKPC gene [Presence] by Molecular method Not Applicable Mayda krusei DNA [Presence] by NADINE with non-probe detection in Positive blood culture Not detected Listeria monocytogenes (reported as listeriosis) Not detected Staphylococcus lugdunensis DNA [Presence] by NADINE with non-probe detection in Positive blood culture Not detected Methicillin resistance mecA+mecC genes+SCCmec+OrfX junction [Presence] by Molecular method Not Applicable Carbapenem resistance blaNDM gene [Presence] by Molecular method Not Applicable Neisseria meningitidis - reported as meningococcal disease Not detected Carbapenem resistance anny OXA-48-like gene [Presence] by Molecular method Not Applicable Mayda parapsilosis DNA [Presence] by NADINE with non-probe detection in Positive blood culture Not detected Streptococcus pneumoniae - reported at [facility] Not detected Proteus sp DNA [Presence] by NADINE with non-probe detection in Positive blood culture Not detected Pseudomonas aeruginosa DNA [Presence] by NADINE with non-probe detection in Positive blood culture Not detected Salmonella sp DNA [Presence] by NADINE with non-probe detection in Positive blood culture Not detected Serratia marcescens DNA [Presence] by NADINE with non-probe detection in Positive blood culture Not detected Staphylococcus sp DNA [Presence] by NADINE with non-probe detection in Positive blood culture Detected Stenotrophomonas maltophilia DNA [Presence] by NADINE with non-probe detection in Positive blood culture Not detected Group A (Streptococcus pyogenes) [id number] Not detected Group B Strep (Streptococcus agalactiae) Not detected Streptococcus sp DNA [Presence] by NADINE with non-probe detection in Positive blood culture Not detected Mayda tropicalis DNA [Presence] by NADINE with non-probe detection in Positive blood culture Not detected Vancomycin resistance Blayne + vanB genes [Presence] by Molecular method Not Applicable Carbapenem resistance blaVIM gene [Presence] by Molecular method Not Applicable Colistin resistance mcr-1 gene [Presence] by Molecular method Not Applicable Methicillin resistance mecA+mecC genes [Presence] in Isolate or Specimen by Molecular genetics method Not Applicable RESIS. GENE COMMENT 1 Antimicrobial resistance can occur via multiple RESIS. GENE COMMENT 2 mechanisms. A Not Detected result for antimicrobial RESIS. GENE COMMENT 3 resistance gene(s) does not indicate (more content not included)...NormalHca Florida [facility] Hospital Physician GroupComment on above:Performed By: #### CUBLD, LACTIC ####[facility] [address] Bacteria identified Cx Nom (Bld)NO GROWTH 5 DAYS PERFORMED BY: [place] [address] PATHOLOGIST EDUCATION COUNSELOR MOHINDER GUTIERREZ M.D.NormalHca Florida South Shore Hospital Physician GroupComment on above: Performed By: #### VANCP #### [facility] [address] [place] [address] USACT abdomen pelvis w conon 12-01-1651OV abdomen pelvis w [facility] [place] [address] [place] [address] CT Scan Report Signed Patient: Ema Neff MR#: [id number] 15 : 1965 Acct:[id number] Age/Sex: 59 / F ADM Date: 12/29/24 Loc: ER Room: Type: [facility] ER Attending Dr: Copies to: GERARDO Beck MD, RES Ordering Provider: Glenn Rock MD, RES Date of Service: 12/29/24 CT/CT abdomen pelvis w con: Left lower quadrant pain CT ABDOMEN AND PELVIS WITH INTRAVENOUS CONTRAST: CLINICAL HISTORY: Altered mental status, generalized weakness COMPARISON: 10/20/2024 TECHNIQUE: Spiral images were obtained through the abdomen and pelvis following the administration of intravenous contrast. This CT exam was performed using one or more following dose reduction techniques: Automated exposure control, adjustment of the mA and/or kV according to patient size, or use of iterative reconstruction technique. FINDINGS: Lung Bases: [No focal opacity. Organs:Fatty liver. Cholecystectomy. Left adrenal nodule 1.4 cm in size. Focal area of scarring left lower pole kidney. Otherwise Spleen, adrenals[and pancreas unremarkable. GI: Mild retained stool the colon. No bowel obstruction. Colonic diverticulosis. Appendix is not visualized. No pericecal inflammatory changes.[ Pelvis:[Uterus and adnexal regions unremarkable bladder is otherwise unremarkable.] Peritoneum/Retroperitoneum:No free air or free fluid. Moderate plaque involving the nonaneurysmal aorta.[ Abd wall/Bones: Posterior element degenerative changes notably lumbosacral junction L4-S1. Anterolisthesis L4-5 identified. Endplate sclerosis and disc space narrowing greatest L2-L3. There is a fat-containing ventral abdominal wall hernia Neck measuring 1.[address]/CT abdomen pelvis w con IMPRESSION: Negative acute inflammatory process or bowel obstruction. Fatty infiltration liver. Impression dictated by: Chetan Michelle M.D. 12/29/2024 3:43 PM Dictation Location: [place] [address] Transcribed By: [facility] 12/29/24 1543 Dictated By: Chetan Michelle MD 12/29/24 1537 Signed By: 12/29/24 1543[facility] Physician GroupCT foot LT w conon 64-87-3097MB foot LT [place] [facility] [place] [address] CT Scan Report Signed Patient: Ema Neff MR#: [id number] 15 : 1965 Acct:[id number] Age/Sex: 59 / F ADM Date: 12/29/24 Loc: Room: [address] [place] [address] Type: ADM IN Attending Dr: Rahel Ro MD Copies to: Rahel Ro MD Ordering Provider: Rahel Ro MD Date of Service: 12/29/24 CT/CT lower leg LT w con: cellulitis evaluate for abscess ([id number]) CT/CT foot LT w con: evaluate for abscess or osteomyelitis CT ABDOMEN AND PELVIS WITH INTRAVENOUS CONTRAST: CLINICAL HISTORY: Elevated white blood count, evaluate for left lower leg abscess COMPARISON: 10/21/2024 TECHNIQUE: Spiral images were obtained through the abdomen and pelvis following the administration of intravenous contrast. This CT exam was performed using one or more following dose reduction techniques: Automated exposure control, adjustment of the mA and/or kV according to patient size, or use of iterative reconstruction technique. FINDINGS: No fracture or dislocation identified involving the left lower extremity. Degenerative changes at level of the knee. Ankle and involving the bones of the foot identified. No definite periosteal reaction identified involving the visualized osseous structures. No definite loculated rim enhancing fluid collection identified soft tissue thickening involving the posterior calcaneal region may represent nonspecific dependent soft tissue changes. Stable amputation involving the second digit. CT/CT lower leg LT w con IMPRESSION: Negative for loculated fluid collection or abscess. No definite findings of osteomyelitis Impression dictated by: Chetan Michelle M.D. 12/29/2024 11:42 PM Dictation Location: [facility]- Transcribed By: [facility] 12/29/24 234 Dictated By: Chetan Michelle MD 12/29/24 2337 Signed By: 12/29/24 2342[facility] Physician GroupCT head/brain wo con 27-37-4414KY head/brain wo [facility] [place] [address] [place] [address] CT Scan Report Signed Patient: Ema Neff MR#: [id number] 15 : 1965 Acct:[id number] Age/Sex: 59 / F ADM Date: 12/29/24 Loc: ER Room: Type: [facility] ER Attending Dr: Copies to: GERARDO Beck MD, RES Ordering Provider: Glenn Rock MD, RES Date of Service: 12/29/24 CT/CT head/brain wo con: R side eye nonreactive CT BRAIN WITHOUT CONTRAST: CLINICAL HISTORY: Altered mental status COMPARISON: 10/20/2024 TECHNIQUE: Contiguous axial unenhanced images were obtained through the brain. This CT exam was performed using one or more following dose reduction techniques: Automated exposure control, adjustment of the mA and/or kV according to patient size, or use of iterative reconstruction technique. FINDINGS: There is no evidence of midline shift, intra or extra-axial fluid collection, hemorrhage or CT evidence of acute large vascular distribution stroke. Redemonstration of of remote right frontal, right parasagittal parietal and left posterior basal ganglia strokes. Intracranial vascular calcifications. Visualized intraorbital contents appear unremarkable. Visualized paranasal sinuses are clear. The surrounding soft tissues are normal. IMPRESSION NO ACUTE INTRACRANIAL ABNORMALITY. SCATTERED AREAS OF REMOTE STROKE APPEARING SIMILAR TO PRIOR EXAM. Impression dictated by: Chetan Michelle M.D. 12/29/2024 3:32 PM Dictation Location: [facility]29 Transcribed By: GÉNESIS 12/29/24 1532 Dictated By: Chetan Michelle MD 12/29/24 1528 Signed By: 12/29/24 1532[facility] Physician GroupCalcium [Mass/volume] in Serum or PlasmaOrdered By: Glenn Rock on 11-22-4145Wvsuhuk [Mass/Vol]8.9 mg/dL Normal8.6-10.3FProtestant Deaconess HospitalComment on above:Performed By: #### VANCP #### [facility] [address] [place] [address] USACarbon dioxide, total [Moles/volume] in Serum or Plasma Ordered By: Glenn Rock on 55-81-1495IG4 [Moles/Vol]27.7 mmol/LNormal 21.0-31.0[facility]ja Medical CenterComment on above:Performed By: #### VANCP #### [facility] [address] [place] [address] USAChloride [Moles/volume] in Serum or PlasmaOrdered By: Glenn Rock on 30-66-5644Huugdmyk [Moles/Vol]97 mmol/MVfs22-663ZdelwntbzUniversity Hospitals Ahuja Medical CenterComment on above:Performed By: #### VANCP #### [facility] [address] [place] [address] USAColor of Urine by AutoOrdered By: Glenn Rock on 69-39-5494Qqdhp (U)Light-yellowNormalYellowUniversity Hospitals Ahuja Medical Center Comment on above:Order Comment: Comment add onPerformed By: #### ESR #### [facility] [address] [place] [address] USACreatinine [Mass/volume] in Serum or PlasmaOrdered By: Glenn Rock on 38-07-8303Vbuzrrjanq [Mass/Vol]0.73 mg/dLNormal0.60-1.20 [facility] Medical CenterComment on above:Performed By: #### VANCP #### [facility] [address] [place] [address] USADipstick and Microscopicon 56-49-8301Yggumbix,UrineNone SeenNormalNone SeenThe [facility] Physician GroupComment on above:Order Comment: Comment add onPerformed By: #### ESR #### [address] [address] USABilirubin,UrineNegativeNormalNegativeThe [facility] Physician GroupComment on above:Order Comment: Comment add onPerformed By: #### ESR #### [place] [id number] USAGlucose Ql (U)>=NormalNormalThe [facility] Group Comment on above:Order Comment: Comment add onPerformed By: #### ESR #### [place] [address] USAHyaline Casts,UrineNoneNormal0-8The [facility] Physician GroupComment on above:Order Comment: Comment add onPerformed By: #### ESR #### [address] [address] USAMucus,UrineRareNormalThe [facility] Physician GroupComment on above:Order Comment: Comment add onResult Comment: PERFORMED BY: [place] [address] PATHOLOGIST EDUCATION COUNSELOR MOHINDER GUTIERREZ M.D.Performed By: #### ESR #### [address] [address] USANitrite,UrineNegativeNormalNegativeThe [facility] Physician GroupComment on above:Order Comment: Comment add onPerformed By: #### ESR #### [address] [address] USAOccult Blood,UrineNegativeNormalNegativeThe [facility] Physician GroupComment on above:Order Comment: Comment add onResult Comment: PERFORMED BY: [address] [address] PATHOLOGIST EDUCATION COUNSELOR MOHINDER GUTIERREZ M.D.Performed By: #### ESR #### [address] [address] USARBC,Mydjr3-6Dohffu1-7Sdb [facility] Physician GroupComment on above:Order Comment: Comment add onPerformed By: #### ESR #### [facility] [address] [place] [id number] USASpecificy [place],Urine1.519Oyfl5.001-1.030[facility] Physician GroupComment on above:Order Comment: Comment add onPerformed By: #### ESR #### [facility] [address] [place] [id number] USASquamous Epithelial Cell,Gkzrb7-6Nqnqgg7-4Hxl [facility] Physician GroupComment on above:Order Comment: Comment add onPerformed By: #### ESR #### [facility] [address] [place] [id number] USAUrobilinogen,UrineNormalNormalNormalThSt. Luke's [facility] Physician GroupComment on above:Order Comment: Comment add onPerformed By: #### ESR #### [facility] [address] [place] [address] USAWBC,Ngsfc6-0Adagix0-3Owx [facility] Physician GroupComment on above:Order Comment: Comment add onPerformed By: #### ESR #### [facility] [address] [place] [id number] USAECG 12 lead ECGon 54-62-3912OCC 12 [facility] ECGNEW[facility] [place] [address] [place] [address] Electrocardiograph Report Signed Patient: Ema Neff MR#: [id number] 15 : 1965 Acct:[id number] Age/Sex: 59 / F ADM Date: 12/29/24 Loc: ER Room: Type: [facility] ER Attending Dr: Ordering Provider: Glenn Rock MD, RES Date of Service: 12/29/24 ECG/ECG 12 lead ECG: Altered Mental Status Copies to: Test Reason : Blood Pressure : 150/78 mmHG Vent. Rate : 104 BPM Atrial Rate : 104 BPM P-R Int : 180 ms QRS Dur : 94 ms QT Int : 362 ms P-R-T Axes : 54 31 65 degrees QTcB Int : 476 ms Sinus tachycardia Low voltage QRS Borderline ECG When compared with ECG of 11-Oct-2023 15:13, Vent. rate has increased by 38 bpm QT has lengthened Confirmed by AYAN GOLDMAN MD ([id number]) on 12/29/2024 7:32:11 PM Referred By: Electronically Signed By: AYAN GOLDMAN MD Transcribed By: MUS Signed By Ayan Goldman MD 12/29/24 [facility] Physician GroupEosinophils [#/volume] in Blood by Automated countOrdered By: Glenn Rock on 15-38-5601Pskgftvolvo (Bld) [#/Vol] 0.0 10*3/uLNormal0.0-0.45[facility]ja Medical CenterComment on above: Performed By: #### VANCP #### [facility] [address] [place] [address] USAEosinophils/100 leukocytes in Blood by Automated count Ordered By: Glenn Rock on 33-69-6600Dizxdxtnxzx/100 WBC (Bld)0.1 %Normal. [facility]huja Medical CenterComment on above:Performed By: #### VANCP #### [facility] [address] [place] [address] USAEpithelial cells.squamous [#/area] in Urine sediment by Automated countOrdered By: Glenn Rock on 37-44-4241Epqioabfma cells.squamous Auto (Urine sed) [#/Area]1-2 [HPF]0-2FProtestant Deaconess Hospital Erythrocyte distribution width [Ratio] by Automated countOrdered By: Glenn Rock on 43-27-2203Wdcksllqmja distribution width (RBC) [Ratio]17.9 %High 11.9-15.3FProtestant Deaconess HospitalComment on above:Performed By: #### VANCP #### [facility] [address] [place] [address] USAErythrocyte morphology finding [Identifier] in Blood Ordered By: Glenn Rock on 01-52-3392RFW morphology finding Nom (Bld)N/A [facility] CenterErythrocytes [#/area] in Urine sediment by Automated countOrdered By: Glenn Rock on 95-02-2166MOA Auto (Urine sed) [#/Area]3-4 [HPF]0-4FProtestant Deaconess HospitalErythrocytes [#/volume] in Blood by Automated countOrdered By: Glenn Rock on 77-81-2898WGS (Bld) [#/Vol]6.02 10*6/uLHigh3.60-5.00[facility]huja Medical CenterComment on above:Performed By: #### VANCP #### [facility] [address] [place] [address] USAGlomerular filtration rate [Volume Rate/Area] in Serum, Plasma or Blood by CreatinineOrdered By: Glenn Rock on 09-27-1611Tqhscnztpo filtration rate [Volume Rate/Area] in Serum, Plasma or Blood by Creatinine> 60.0 mL/MinUniversity Hospitals Ahuja Medical CenterGlucose [Mass/volume] in Serum or Plasma Ordered By: Glenn Rock on 93-45-3759Xbcrudw [Mass/Vol]135 mg/eLMrpg56-918 [facility] Medical CenterComment on above:ADA recommended reference rangeRandom Glucose Reference Range is dependent on time and content of last meal. Glucose of more than 200 mg/dL in a nonstressed, ambulatory subject supports the diagnosisof Diabetes Mellitus.Result Comment: Random Glucose Reference Range is dependent on time and content of last meal. Glucose of more than 200 mg/dL in a nonstressed, ambulatory subject supports the diagnosis of Diabetes Mellitus. ADA recommended reference rangePerformed By: #### VANCP #### [facility] [address] [place] [id number] USAGlucose [Mass/volume] in Urine by Test stripOrdered By: Glenn Rock on 83-11-8143Aisetyk Test strip (U) [Mass/Vol]>=1000 mg/dLHigh NormalUniversity Hospitals Ahuja Medical CenterHematocrit [Volume Fraction] of Blood by Automated countOrdered By: Glenn Rock on 18-43-3482Jeytppesgd (Bld) [Volume fraction]51.2 %High34.0-46.4FProtestant Deaconess HospitalComment on above: Performed By: #### VANCP #### [facility] [address] [place] [id number] USAHemoglobin Test strip Ql (U)Ordered By: Glenn Rock on 42-65-7658Fagrjwzpva Ql (U)NegativeNegativeUniversity Hospitals Ahuja Medical Center Hemoglobin [Mass/volume] in BloodOrdered By: Glenn Rock on 12-29-2024 Hemoglobin (Bld) [Mass/Vol]16.6 g/lZMosb58.8-15.4FProtestant Deaconess HospitalComment on above:Performed By: #### VANCP #### [place] [address] USAHepatic Panelon 56-12-0079Okmfvdd [Mass/Vol]4.0 g/dLNormal 3.5-5.7The [facility] Physician GroupComment on above:Performed By: #### ESR #### [place] [address] USABilirubin,Indirect0.6 mg/dLNormalThe [facility] Physician [facility] HospitalComment on above:Performed By: #### ESR #### [place] [address] USABilirubin.indirect [Mass/Vol]0.10 mg/dLNormal0.03-0.18[facility] Physician [facility] HospitalComment on above:Performed By: #### ESR #### [place] [address] USAHyaline casts [#/area] in Urine sediment by Automated countOrdered By: Glenn Rock on 12-44-2728Mnynukn casts Auto (Urine sed) [#/Area]None [LPF]0-8[facility] Medical CenterKetones [Presence] in Urine by Test stripOrdered By: Glenn Rock on 07-33-3649Inrpmlp Ql (U)3+ NormalNegativeUniversity Hospitals Ahuja Medical CenterComment on above:Order Comment: Comment add onPerformed By: #### ESR #### [place] [address] USALactate [Moles/volume] in Serum or PlasmaOrdered By: Glenn Rock on 33-24-6827Dlgjwwu [Moles/Vol]0.9 mmol/LNormal0.5-1.9[facility]ja Medical CenterComment on above:Lactic Acid reference range has been updated to 0.5 1.9 mmol/L and the critical range of 2.0 or greater.Result Comment: Lactic Acid reference range has been updated to 0.5 ? 1.9 mmol/L and the critical range of 2.0 or greater. PERFORMED BY: [place] [address] PATHOLOGIST EDUCATION COUNSELOR MOHINDER GUTIERREZ M.D.Performed By: #### CUBLD, LACTIC ####[facility] [place] [id number] USALeukocyte esterase [Presence] in Urine by Test stripOrdered By: Glenn Rock on 17-04-3437Nuxiyufev esterase Test strip Ql (U)NegativeNormalNegativeUniversity Hospitals Ahuja Medical CenterComment on above:Order Comment: Comment add onPerformed By: #### ESR #### [place] [address] USALeukocytes [#/area] in Urine sediment by Automated count Ordered By: Glenn Rock on 47-66-5308VWW Auto (Urine sed) [#/Area]1-2 [HPF] 0-4FProtestant Deaconess HospitalLeukocytes [#/volume] corrected for nucleated erythrocytes in Blood by Automated counOrdered By: Glenn Rock on 11-07-6872ZOG corrected for nucl RBC Auto (Bld) [#/Vol]20.4 10*3/uLHigh3.8-11.6 [facility] Medical CenterLeukocytes [#/volume] in Blood by Automated countOrdered By: Glenn Rock on 66-18-4013XQO (Bld) [#/Vol]20.4 10*3/uLHigh 3.8-11.6FProtestant Deaconess HospitalComment on above:Performed By: #### VANCP #### [facility] [address] [place] [id number] USALipase [Enzymatic activity/volume] in Serum or Plasma Ordered By: Glenn Rock on 83-31-7967Mdpowq [Catalytic activity/Vol]30.0 U/L Ybsirm69.0-82.0[facility]huja Medical CenterComment on above:Result Comment: PERFORMED BY: [place] [address] PATHOLOGIST EDUCATION COUNSELOR MOHINDER GUTIERREZ M.D.Performed By: #### CRP, MG, BMP, CBC #### [place] [address] USALymphocytes [#/volume] in Blood by Automated countOrdered By: Glenn Rock on 44-55-9481Xpfjmtuxvbc (Bld) [#/Vol]2.0 10*3/uLNormal 1.00-4.8[facility] Medical CenterComment on above:Performed By: #### VANCP #### [place] [address] USALymphocytes/100 leukocytes in Blood by Automated count Ordered By: Glenn Rock on 11-69-2919Uopvsjpzuvx/100 WBC (Bld)9.9 %Normal. [facility]ja Medical CenterComment on above:Performed By: #### VANCP #### [address] [Entitic mass] by Automated countOrdered By: Glenn Rock on 74-76-1790KHM (RBC) [Entitic mass]27.5 teMhbzrs19.7-34.3FProtestant Deaconess HospitalComment on above:Performed By: #### VANCP #### [address] Auto (RBC) [Mass/Vol]Ordered By: Glenn Rock on 96-51-7944PETX (RBC) [Mass/Vol]32.4 g/dL32.0-35.0[facility] Medical CenterMCV [Entitic volume] by Automated countOrdered By: Glenn Rock on 18-30-1666EPR (RBC) [Entitic vol]85.0 gHZaliop44-621IsfuilkdgUniversity Hospitals Ahuja Medical CenterComment on above:Performed By: #### VANCP #### [address] [address] USAMagnesium [Mass/volume] in Serum or PlasmaOrdered By: Glenn Rock on 84-83-5145Fbmrtrteh [Mass/Vol]1.7 mg/dLLow1.9-2.7FProtestant Deaconess HospitalComment on above:Result Comment: PERFORMED BY: [place] [address] PATHOLOGIST EDUCATION COUNSELOR MOHINDER GUTIERREZ M.D.Performed By: #### VANCP #### [facility] [address] [place], [place] [address] USAMonocyte distribution width [Entitic volume] in Blood by AutomatedOrdered By: Glenn Rock on 66-18-3005Wsanejum distribution width Auto (Bld) [Entitic vol]20.07 %High0.00-20.00[facility] Comment on above:For adults in ED, MDW > 20.0 may be associated with a higher risk of sepsis during the first 12 hrs of hospital admissionMonocytes [#/volume] in Blood by Automated countOrdered By: Glenn Rock on 47-15-2829Nbaepwhcz (Bld) [#/Vol]0.6 10*3/uLNormal0.0-0.8[facility] Medical CenterComment on above:Performed By: #### VANCP #### [facility] [address] [place] [address] USAMonocytes/100 leukocytes in Blood by Automated count Ordered By: Glenn Rock on 49-31-1591Qryfrwlmq/100 WBC (Bld)3.1 %Normal. [facility] Medical CenterComment on above:Performed By: #### VANCP #### [facility] [address] [place] [address] USAMucus [Presence] in Urine by AutomatedOrdered By: Glenn Rock on 03-46-0210Mselh Auto Ql (U)Rare [LPF][facility] Medical CenterNeutrophils [#/volume] in Blood by Automated countOrdered By: Glenn Rock on 75-80-6176Dlblmaskxte (Bld) [#/Vol]17.6 10*3/uLHigh1.8-7.7FProtestant Deaconess HospitalComment on above:Performed By: #### VANCP #### [facility] [address] [place] [address] USANeutrophils/100 leukocytes in Blood by Automated count Ordered By: Glenn Rock on 36-97-5141Qbsoyxvljmo/100 WBC (Bld)85.9 %Normal. [facility] Medical CenterComment on above:Performed By: #### VANCP #### [facility] [address] [place] [id number] USANitrite Test strip Ql (U)Ordered By: Glenn Rock on 97-86-6750Mdxdvom Ql (U)NegativeNegativeUniversity Hospitals Ahuja Medical CenterNo Panel InformationOrdered By: Glenn Rock on 94-90-5101Oymczbuk Creatinine Clearance (Univ891.35[facility] Medical CenterNucleated erythrocytes [Presence] in Blood by Automated countOrdered By: Glenn Rock on 12-29-2024 Nucleated RBC Auto Ql (Bld)0.1 /100{WBC}0-0.5FProtestant Deaconess Hospital Platelet adequacy [Presence] in Blood by Light microscopyOrdered By: Glenn Rock on 45-18-8865Oateawvng LM Ql (Bld)Highland District HospitalPlatelet mean volume [Entitic volume] in Blood by Automated countOrdered By: Glenn Rock on 86-01-1969Haxhwlzl mean volume (Bld) [Entitic vol]8.2 fL Normal6.3-10.7FProtestant Deaconess HospitalComment on above:Performed By: #### VANCP #### [facility] [address] [place] [id number] USAPlatelet morphology finding [Identifier] in BloodOrdered By: Glenn Rock on 84-17-5073Eakjuwmv morphology finding Nom (Bld)Normal NormalUniversity Hospitals Ahuja Medical CenterPlatelets [#/volume] in Blood by Automated countOrdered By: Glenn Rock on 11-68-1329Aicdkbkry (Bld) [#/Vol] 265 10*3/lRNojdyj168-793VulfetaklUniversity Hospitals Ahuja Medical CenterComment on above: Performed By: #### VANCP #### [facility] [address] [place] [address] USAPolychromasia [Presence] in Blood by Light microscopy Ordered By: Glenn Rock on 04-19-6391Ylqmnpkzyeazd LM Ql (Bld)Moderate [facility] Medical CenterPotassium [Moles/volume] in Serum or Plasma Ordered By: Glenn Rock on 62-58-8909Ctqnfnfkv [Moles/Vol]3.5 mmol/LNormal 3.5-5.1FProtestant Deaconess HospitalComment on above:Performed By: #### VANCP #### [facility] [address] [place] [address] USAProtein [Mass/volume] in Serum or PlasmaOrdered By: Glenn Rock on 27-81-1910Awrqjch [Mass/Vol]7.7 g/dLNormal6.4-8.9[facility] Medical CenterComment on above:Performed By: #### ESR #### [facility] [address] [place] [address] USAProtein [Mass/volume] in Urine by Test stripOrdered By: Glenn Rock on 21-73-4970Mcbbjtv (U) [Mass/Vol]30 mg/dLNormalNegative [facility] Medical CenterComment on above:Order Comment: Comment add on Performed By: #### ESR #### [facility] [address] [place] [address] USAScan and CBCon 69-95-1369Hogi Corpuscular HGB Conc32.4 g/hWFginjs56.0-35.0[facility] Physician GroupComment on above:Performed By: #### VANCP #### [facility] [address] [place] [id number] USAMonocytes/100 WBC (Bld)20.07 %High0.00-20.00[facility] Physician GroupComment on above:Result Comment: For adults in ED, MDW > 20.0 may be associated with a higher risk of sepsis during the first 12 hrs of hospital admissionPerformed By: #### VANCP #### [place] [address] USANRBC%0.1 /100{WBC}Normal0-0.5[facility] Comment on above:Performed By: #### VANCP #### [place] [address] USAPlatelet EstimateNormalNormalNormHCA Florida Trinity Hospital Physician GroupComment on above:Performed By: #### VANCP #### [place] [address] USAPlatelet MorphologyNormalNormalNormHCA Florida Trinity Hospital Physician GroupComment on above:Result Comment: PERFORMED BY: [place] [address] PATHOLOGIST EDUCATION COUNSELOR MOHINDER GUTIERREZ M.D.Performed By: #### VANCP #### [place] [address] USAPolychromasiaModerateNormHCA Florida Trinity Hospital Physician Group Comment on above:Performed By: #### VANCP #### [place] [address] USAWhite Blood Count20.4 [CFU]/mLHigh3.8-11.6[facility] Physician GroupComment on above:Performed By: #### VANCP #### [place] [address] USASerum globulin measurement by calculation (mass/volume) Ordered By: Glenn Rock on 74-73-8004Qftmwpql (S) [Mass/Vol]3.7 g/dLNormal [facility] CenterComment on above:Performed By: #### ESR #### [place] [address] USASerum or plasma albumin/globulin mass ratioOrdered By: Glenn Rock on 91-62-4034Vebptdn/Globulin [Mass ratio]1.1 {ratio}Normal [facility] Medical CenterComment on above:Performed By: #### ESR #### [place] [address] USASerum or plasma anion gap determinationOrdered By: Glenn Rock on 02-74-7711Skcbn gap [Moles/Vol]13.8 mmol/LNormal6.0-15.0[facility] Medical CenterComment on above:Performed By: #### VANCP #### [place] [address] USASerum or plasma non-glucuronidated bilirubin measurement (mass/volume)Ordered By: Glenn Rock on 58-42-1296Srcqxqhfw.indirect [Mass/Vol]0.6 mg/dLSamaritan Hospitalodium [Moles/volume] in Serum or PlasmaOrdered By: Glenn Rock on 28-68-9931Lpxowv [Moles/Vol]135 mmol/IDfr627-918DehbozpyaUniversity Hospitals Ahuja Medical CenterComment on above:Performed By: #### VANCP #### [place] [id number] USASpecific gravity Test strip (U) [Rel density]Ordered By: Glenn Rock on 27-23-8620Cndikvth gravity (U) [Rel density]1.050High 1.001-1.030[facility] Medical CenterUrea nitrogen [Mass/volume] in Serum or PlasmaOrdered By: Glenn Rock on 74-17-7651Xzri nitrogen [Mass/Vol]11 mg/dLNormal7-25[facility] Medical CenterComment on above:Performed By: #### VANCP #### [place] [id number] USAUrobilinogen Test strip (U) [Mass/Vol]Ordered By: Glenn Rock on 57-27-3591Jijgrrhzhwtf (U) [Mass/Vol]Normal mg/dLNormalUniversity Hospitals Ahuja Medical CenterX-ray reportOrdered By: Jason Mays on 12-29-2024 [facility] [place] [address] [place] [address] XRay Report Signed Patient: Ema Neff MR#: [id number] : 1965 Acct:[id number] Age/Sex: 59 / F ADM Date: 5 Loc: ER Room: Type: [facility] ER Attending Dr: Copies to: GERARDO Beck MD, RES~ Ordering Provider: Glenn Rock MD, RES Date of Service: 12/29/24 XR/XR chest 1V portable: Altered Mental Status SINGLE VIEW CHEST CLINICAL HISTORY: Generalized weakness for 2 days. Fever. COMPARISON: Chest 05/08/2021 FINDINGS: Heart normal in size. Lungs are clear. No free air. XR/XR chest 1V portable IMPRESSION: NO ACUTE FINDINGS Impression dictated by: Jason Mays Jr. D.OValentina 12/29/2024 3:10 PM Dictation Location: RADIO-PC-22 Transcribed By: GÉNSEIS 12/29/241509 Dictated By: Jason Mays Jr, DO 12/29/241509 Signed By: 12/29/[address] [place], [place] [address]XR chest 1V portableon 50-35-3370EK chest 1V portableNEW[place] [address] XRay Report Signed Patient: Ema Neff MR#: [id number] 15 : 1965 Acct:[id number] Age/Sex: 59 / F ADM Date: 12/29/24 Loc: ER Room: Type: [facility] ER Attending Dr: Copies to: GERARDO Beck MD, RES Ordering Provider: Glenn Rock MD, RES Date of Service: 12/29/24 XR/XR chest 1V portable: Altered Mental Status SINGLE VIEW CHEST CLINICAL HISTORY: Generalized weakness for 2 days. Fever. COMPARISON: Chest 05/08/2021 FINDINGS: Heart normal in size. Lungs are clear. No free air. XR/XR chest 1V portable IMPRESSION: NO ACUTE FINDINGS Impression dictated by: Jason Mays Jr. D.O. 12/29/2024 3:10 PM Dictation Location: RADIO-PC-22 Transcribed By: GÉNESIS 12/29/241509 Dictated By: Jason Mays Jr, DO 12/29/241509 Signed By: 12/29/[address] [place] [address] Physician GrouppH of Urine by Test stripOrdered By: Glenn Rock on 84-77-6526vH (U)6.5 [pH]Normal5.0-9.0[facility] Medical CenterComment on above:Order Comment: Comment add onPerformed By: #### ESR #### [facility] [address] [place] [address] USAGlucose Poct Glucometerson 12-59-5170Xasmazk [Mass/Vol]362 mg/dLGulf Breeze Hospital Physician GroupComment on above:Result Comment: Random Glucose Reference Range is dependent on time and content of last meal. Glucose of more than 200 mg/dL in a nonstressed, ambulatory subject supports the diagnosis of Diabetes Mellitus. PERFORMED BY: [place] [address] PATHOLOGIST EDUCATION COUNSELOR MOHINDER GUTIERREZ M.D.Performed By: #### VANCP #### [facility] [address] [place] [id number] USACBC W Auto Differential panel (Bld)on 49-94-4536Mmwlmjoig (Bld) [#/Vol]0.1 10*3/uL0.0 - 0.2 10*3/uLNOMS HealthcareBasophils/100 WBC Manual cnt (Syn fld)0.6 %.NOMS HealthcareEosinophils (Bld) [#/Vol]0.1 10*3/uL0.0 - 0.45 10*3/uLNOMS HealthcareEosinophils/100 WBC Manual cnt (Syn fld)1.1 %.NOMS HealthcareErythrocyte distribution width (RBC) [Ratio]18.3 %High11.9 - 15.3 % NOMS HealthcareHematocrit (Bld) [Volume fraction]47.2 %High34.0 - 46.4 %NOMS HealthcareHemoglobin (Bld) [Mass/Vol]15.3 g/dL11.8 - 15.4 g/dLNOSaint Louis University Hospital Interpretation and review of laboratory resultsAbnormalNOTN Healthcare Lymphocytes (Bld) [#/Vol]2.3 10*3/uL1.00 - 4.8 10*3/uLNOMS Healthcare Lymphocytes/100 WBC Manual cnt (Syn fld)16.3 %.[facility] ServicesH (RBC) [Entitic mass]28.1 pg24.7 - 34.3 pgSaint Francis Hospital & Health ServicesHC (RBC) [Mass/Vol]32.4 g/dL32.0 - 35.0 g/dLSaint Francis Hospital & Health ServicesV (RBC) [Entitic vol]86.8 fL80 - 100 fLOREM COMM[facility] Healthcare Monocytes (Bld) [#/Vol]1.1 10*3/uLHigh0.0 - 0.8 10*3/uLNOTN Healthcare Monocytes+Macrophages/100 WBC Manual cnt (Syn fld)7.5 %.[facility] Neutrophils (Bld) [#/Vol]10.4 10*3/uLHigh1.8 - 7.7 10*3/uLNOTN Healthcare Neutrophils/100 WBC Manual cnt (Syn fld)74.5 %.[facility] HealthcareNRBC0.1 /100{WBC}0 - 0.5 /100{WBC}[facility] HealthcarePlatelet mean volume (Bld) [Entitic vol]7.7 fL6.3 - 10.7 fLOREM COMMUNITY [facility]OSPITAL HealthcarePlatelets (Bld) [#/Vol]306 10*3/uL150 - 450 10*3/uLNOSaint Louis University HospitalRBC LM.HPF (Urine sed) [#/Area]5.44 10*6/uLHigh3.60 - 5.00 10*6/uLNOMS HealthcareWBC (Bld) [#/Vol]14 10*3/uLHigh3.8 - 11.6 10*3/uLNOMS HealthcareWBC LM.HPF (Urine sed) [#/Area]14 [CFU]/mLHigh3.8 - 11.6 [CFU]/mLNOMS Healthcareper lupe barnett all @1130[facility] HealthcareCT foot LT wo delmis 19-39-8923XF foot LT wo [facility] [address] [address] [address] Scan Report Signed Patient: Ema Neff MR#: [id number] 15 : 1965 Acct:[id number] Age/Sex: 59 / F ADM Date: 10/20/24 Loc: Room: [address] [place] [address] Type: ADM IN Attending Dr: Felisa Iglesias MD Copies to: MD Ray Arshad DPM Ordering Provider: Ray Hays DPM Date of Service: 10/21/24 CT/CT foot LT wo con: left foot ulcer/3rd toe suspected OM CT left foot WITHOUT CONTRAST WITH 3D RECONSTRUCTIONS: CLINICAL HISTORY: Left foot ulcer. COMPARISON: Left foot series dated 11/01/2024 TECHNIQUE: Spiral axial unenhanced images were obtained through the left foot. Sagittal, coronal and 3D volume-rendered reconstructions were also reviewed. This CT exam was performed using one or more following dose reduction techniques: Automated exposure control, adjustment of the mA and/or kV according to patient size, or use of iterative reconstruction technique. FINDINGS: An indication of the distal aspect of the second digit. Scattered degenerative changes without fracture or definitive CT evidence of osteomyelitis. Plantar spurring. Ulcer is seen along the distal aspect of the foot in the region of the second digit. No soft tissue gas. No fluid collection to suggest abscess. Mild soft tissue swelling. CT/CT foot LT wo con IMPRESSION: ULCER SEEN ALONG THE DISTAL ASPECT OF THE FOOT AT THE LEVEL OF THE SECOND DIGIT WITHOUT SOFT TISSUE GAS OR BONY DESTRUCTION TO SUGGEST OSTEOMYELITIS. DISTAL AMPUTATION OF THE SECOND DIGIT. SCATTERED DEGENERATIVE CHANGE WITH PLANTAR SPURRING. Impression dictated by: Jason Mays Jr., D.O. 10/21/2024 7:01 PM Dictation Location: [place] [address] Transcribed By: [facility] 10/21/241900 Dictated By: Jason Mays Jr, DO 10/21/24 185 Signed By: 10/21/241900NormHCA Florida Trinity Hospital Physician GroupComplete Blood Count Auto Diffon 20-46-9701Bolbwvyoh (Bld) [#/Vol]0.1 10*3/uLNormal0.0-0.2[facility] Physician GroupComment on above:Order Comment: per lupe barnett all @1130Result Comment: PERFORMED BY: [facility] [address] [place] [address] PATHOLOGIST EDUCATION COUNSELOR MOHINDER GUTIERREZ M.D.Performed By: #### CBC ####[address] [address] USABasophils/100 WBC (Bld)0.6 %Normal.[facility] Physician GroupComment on above:Order Comment: per rn grover draw all @1130Performed By: #### CBC ####[address] [address] USAEosinophils (Bld) [#/Vol]0.1 10*3/uLNormal0.0-0.45 [facility] Physician GroupComment on above:Order Comment: per rn grover draw all @1130Performed By: #### CBC ####[address] [address] USAEosinophils/100 WBC (Bld)1.1 %Normal.[facility] Physician GroupComment on above:Order Comment: per rn grover draw all @1130 Performed By: #### CBC ####[address] [address] USAErythrocyte distribution width (RBC) [Ratio]18.3 % High11.9-15.3[facility] Physician GroupComment on above:Order Comment: per lupe ness draw all @1130Performed By: #### CBC ####[address] [address] USAHematocrit (Bld) [Volume fraction]47.2 %High34.0-46.4[facility] Physician GroupComment on above:Order Comment: per lupe ness draw all @1130Performed By: #### CBC ####[address] [address] USAHemoglobin (Bld) [Mass/Vol]15.3 g/dL Ngxwif15.8-15.4[facility] Physician GroupComment on above:Order Comment: per rn grover draw all @1130Performed By: #### CBC ####[address] [address] USALymphocytes (Bld) [#/Vol]2.3 10*3/uL Normal1.00-4.8[facility] Physician GroupComment on above:Order Comment: per rn grover draw all @1130Performed By: #### CBC ####[place] [address] [place] [address] USALymphocytes/100 WBC (Bld)16.3 %Normal. [facility] Physician GroupComment on above:Order Comment: per rn grover draw all @1130Performed By: #### CBC ####[address] [address] [facility]H (RBC) [Entitic mass]28.1 xhKmmvcs56.7-34.3[facility] Physician GroupComment on above:Order Comment: per rn grover draw all @1130Performed By: #### CBC ####[address] [address] [facility] ST[facility]ATERV (RBC) [Entitic vol]86.8 vZMxxwik86-872Yan [facility] Physician GroupComment on above:Order Comment: per rn grover draw all @1130Performed By: #### CBC ####[address] [address] USAMean Corpuscular HGB Conc32.4 g/zOIypzfn05.0-35.0[facility] Physician GroupComment on above:Order Comment: per lupe ness draw all @1130Performed By: #### CBC ####[address] [address] USAMonocytes (Bld) [#/Vol]1.1 10*3/uLHigh0.0-0.8[facility] Physician GroupComment on above:Order Comment: per lupe ness draw all @1130Performed By: #### CBC ####[address] [address] USAMonocytes/100 WBC (Bld)7.5 %Normal.[facility] Physician GroupComment on above:Order Comment: per rn grover draw all @1130 Performed By: #### CBC ####[address] [address] USANeutrophils (Bld) [#/Vol]10.4 10*3/uLHigh1.8-7.7[facility] Physician GroupComment on above:Order Comment: per rn grover draw all @1130Performed By: #### CBC ####[address] [address] USANeutrophils/100 WBC (Bld)74.5 %Normal.[facility] Physician GroupComment on above:Order Comment: per rn grover draw all @1130 Performed By: #### CBC ####[address] [address] USANRBC%0.1 /100{WBC}Normal0-0.5[facility] Physician GroupComment on above:Order Comment: per rn grover draw all @1130Performed By: #### CBC ####[address] [address] USAPlatelet mean volume (Bld) [Entitic vol]7.7 fLNormal6.3-10.7The [facility] Physician GroupComment on above:Order Comment: per rn grover draw all @1130 Performed By: #### CBC ####[address] [address] USAPlatelets (Bld) [#/Vol]306 10*3/pYRyrkao960-354Daq [facility] Physician GroupComment on above:Order Comment: per rn grover draw all @1130Performed By: #### CBC ####[address] [address] USARBC (Bld) [#/Vol]5.44 10*6/uLHigh3.60-5.00The [facility] Physician GroupComment on above:Order Comment: per rn grover draw all @1130Performed By: #### CBC ####[address] [address] USAWBC (Bld) [#/Vol]14.0 10*3/uLHigh3.8-11.6The [facility] Physician GroupComment on above:Order Comment: per rn grover draw all @1130Performed By: #### CBC ####[facility] [address] [place] [address] USAWhite Blood Count14.0 [CFU]/mLHigh3.8-11.6The [facility] Physician GroupComment on above:Order Comment: per lupe ness draw all @1130Performed By: #### CBC ####[facility] [place] [address] USAComprehensive Metabolic Panelon 92-69-7340Avyxnqa [Mass/Vol]3.6 g/dLNormal3.5-5.7The [facility] Physician GroupComment on above: Order Comment: Comment ?DRAW 1 HOUR AFTER INFUSION COMPLETES Date of last dose?: 20241020 Time of last dose?: 0400Performed By: #### VANCP #### [place] [address] USAAlbumin/Globulin [Mass ratio]1.2 {ratio}NormalThe [facility] Physician GroupComment on above:Order Comment: Comment ?DRAW 1 HOUR AFTER INFUSION COMPLETES Date of last dose?: 20241020 Time of last dose?: 0400Performed By: #### VANCP #### [place] [id number] USAALP [Catalytic activity/Vol]73 U/JTwfgho17-638Mxb [facility] Physician GroupComment on above:Order Comment: Comment ?DRAW 1 HOUR AFTER INFUSION COMPLETES Date of last dose?: 20241020 Time of last dose?: 0400Performed By: #### VANCP #### [facility] [address] [place] [address] USAALT [Catalytic activity/Vol]16 U/LNormal7-52The [facility] Physician GroupComment on above:Order Comment: Comment ?DRAW 1 HOUR AFTER INFUSION COMPLETES Date of last dose?: 20241020 Time of last dose?: 0400Performed By: #### VANCP #### [address] [address] USAAnion gap [Moles/Vol]12.8 mmol/LNormal6.0-15.0The [facility] Physician GroupComment on above:Order Comment: Comment ?DRAW 1 HOUR AFTER INFUSION COMPLETES Date of last dose?: 20241020 Time of last dose?: 0400Performed By: #### VANCP #### [facility] [address] [place] [address] USAAST [Catalytic activity/Vol]22 U/IAueblt14-95Sob [facility] Physician GroupComment on above:Order Comment: Comment ?DRAW 1 HOUR AFTER INFUSION COMPLETES Date of last dose?: 20241020 Time of last dose?: 0400Performed By: #### VANCP #### [place] [address] USABilirubin [Mass/Vol]0.7 mg/dLNormal0.3-1.0The [facility] Physician GroupComment on above:Order Comment: Comment ?DRAW 1 HOUR AFTER INFUSION COMPLETES Date of last dose?: 20241020 Time of last dose?: 0400Performed By: #### VANCP #### [place] [address] USACalcium [Mass/Vol]8.8 mg/dLNormal8.6-10.3The [facility] Physician GroupComment on above:Order Comment: Comment ?DRAW 1 HOUR AFTER INFUSION COMPLETES Date of last dose?: 20241020 Time of last dose?: 0400Performed By: #### VANCP #### [place] [id number] USAChloride [Moles/Vol]101 mmol/QEnsyai98-565Ypg [facility] Physician GroupComment on above:Order Comment: Comment ?DRAW 1 HOUR AFTER INFUSION COMPLETES Date of last dose?: 20241020 Time of last dose?: 0400Performed By: #### VANCP #### [place] [id number] USACO2 [Moles/Vol]26.7 mmol/PWvghji11.0-31.0The [facility] Physician GroupComment on above:Order Comment: Comment ?DRAW 1 HOUR AFTER INFUSION COMPLETES Date of last dose?: 20241020 Time of last dose?: 0400Performed By: #### VANCP #### [address] [place] [address] USACreatinine [Mass/Vol]0.67 mg/dLNormal0.60-1.20The [facility] Physician GroupComment on above:Order Comment: Comment ?DRAW 1 HOUR AFTER INFUSION COMPLETES Date of last dose?: 20241020 Time of last dose?: 0400Performed By: #### VANCP #### [facility] [address] [place] [address] USACreatinine Clr Calc Fcqrgyxw766.18NormHCA [facility] Hospital Physician GroupComment on above:Order Comment: Comment ?DRAW 1 HOUR AFTER INFUSION COMPLETES Date of last dose?: 20241020 Time of last dose?: 0400Performed By: #### VANCP #### [place] [address] USAGFR/1.73 sq M.predicted MDRD (S/P/Bld) [Vol rate/Area] mL/min/{1.73_m2}NormalThe [facility] Physician GroupComment on above:Order Comment: Comment ?DRAW 1 HOUR AFTER INFUSION COMPLETES Date of last dose?: 20241020 Time of last dose?: 0400Performed By: #### VANCP #### [place] [address] USAGlobulin (S) [Mass/Vol]3.0 g/dLNoECU Health Physician GroupComment on above:Order Comment: Comment ?DRAW 1 HOUR AFTER INFUSION COMPLETES Date of last dose?: 20241020 Time of last dose?: 0400Performed By: #### VANCP #### [place] [address] USAGlucose [Mass/Vol]195 mg/rPDboy42-077Vpz [facility] Physician GroupComment on above:Order Comment: Comment ?DRAW 1 HOUR AFTER INFUSION COMPLETES Date of last dose?: 20241020 Time of last dose?: 0Result Comment: Random Glucose Reference Range is dependent on time and content of last meal. Glucose of more than 200 mg/dL in a nonstressed, ambulatory subject supports the diagnosis of Diabetes Mellitus. ADA recommended reference rangePerformed By: #### VANCP #### [address] [place] [address] USAPotassium [Moles/Vol]3.5 mmol/LNormal3.5-5.1The [facility] Physician GroupComment on above:Order Comment: Comment ?DRAW 1 HOUR AFTER INFUSION COMPLETES Date of last dose?: 20241020 Time of last dose?: 0400Performed By: #### VANCP #### [place] [address] USAProtein [Mass/Vol]6.6 g/dLNormal6.4-8.9The [facility] Physician GroupComment on above:Order Comment: Comment ?DRAW 1 HOUR AFTER INFUSION COMPLETES Date of last dose?: 20241020 Time of last dose?: 0400Performed By: #### VANCP #### [place] [address] USASodium [Moles/Vol]137 mmol/OBkbpjw621-786Gqu [facility] Physician GroupComment on above:Order Comment: Comment ?DRAW 1 HOUR AFTER INFUSION COMPLETES Date of last dose?: 20241020 Time of last dose?: 0400Performed By: #### VANCP #### [place] [address] USAUrea nitrogen [Mass/Vol]11 mg/dLNormal7-25The [facility] Physician GroupComment on above:Order Comment: Comment ?DRAW 1 HOUR AFTER INFUSION COMPLETES Date of last dose?: 20241020 Time of last dose?: 0400Performed By: #### VANCP #### [place] [address] USAGlucose Poct Glucometerson 20-77-1695Hoccfoy [Mass/Vol]222 mg/dLNoECU Health Physician GroupComment on above:Result Comment: Random Glucose Reference Range is dependent on time and content of last meal. Glucose of more than 200 mg/dL in a nonstressed, ambulatory subject supports the diagnosis of Diabetes Mellitus. PERFORMED BY: [place] [address] PATHOLOGIST EDUCATION COUNSELOR MOHINDER GUTIERREZ M.D.Performed By: #### GLULS ####Point of Care testing,Glucose [Mass/Vol]228 mg/dLGulf Breeze Hospital Physician GroupComment on above:Result Comment: Random Glucose Reference Range is dependent on time and content of last meal. Glucose of more than 200 mg/dL in a nonstressed, ambulatory subject supports the diagnosis of Diabetes Mellitus. PERFORMED BY: [place] [address] PATHOLOGIST EDUCATION COUNSELOR MOHINDER GUTIERREZ M.D.Performed By: #### CRP, MG, BMP, CBC #### [place] [address] FVVHjmqpts9Ziu1: Cleaned MeterNoECU Health Physician GroupComment on above:Result Comment: PERFORMED BY: [place] [address] PATHOLOGIST EDUCATION COUNSELOR MOHINDER GUTIERREZ M.D.Performed By: #### ESR #### [place] [address] USAGlucose [Mass/Vol]211 mg/dLNoECU Health Physician GroupComment on above:Result Comment: Random Glucose Reference Range is dependent on time and content of last meal. Glucose of more than 200 mg/dL in a nonstressed, ambulatory subject supports the diagnosis of Diabetes Mellitus.Performed By: #### ESR #### [place] [address] USAGlucose [Mass/Vol]220 mg/dLGulf Breeze Hospital Physician GroupComment on above:Result Comment: Random Glucose Reference Range is dependent on time and content of last meal. Glucose of more than 200 mg/dL in a nonstressed, ambulatory subject supports the diagnosis of Diabetes Mellitus. PERFORMED BY: [place] [address] PATHOLOGIST EDUCATION COUNSELOR MOHINDER GUTIERREZ M.D.Performed By: #### CRP, MG, BMP, CBC #### [place] [address] USAMagnesiumon 90-65-5595Amwhzduqp [Mass/Vol]1.7 mg/dLLow 1.9-2.7The [facility] Physician GroupComment on above:Order Comment: Comment ?DRAW 1 HOUR AFTER INFUSION COMPLETES Date of last dose?: 06707003 Time of last dose?: 399Result Comment: PERFORMED BY: [place] [address] PATHOLOGIST EDUCATION COUNSELOR MOHINDER GUTIERREZ M.D.Performed By: #### VANCP #### [place] [address] USAUS ankle/arm indiceson 80-31-7669HK ankle/arm indices [facility] [place] [address] [place] [address] Ultrasound Report Signed Patient: Ema Neff MR#: [id number] 15 : 1965 Acct:[id number] Age/Sex: 59 / F ADM Date: 10/20/24 Loc: Room: [address] [place] [address] Type: ADM IN Attending Dr: Felisa Iglesias MD Ordering Provider: Tejal Duenas DO, RES Date of Service: 10/20/24 US/US ankle/arm indices: Osteomyelits of L foot Copies to: Tejal Duenas DO, RES Mohamad Akil, MD LOWER EXTREMITY SEGMENTAL ARTERIAL DOPSCAN (PVR) INDICATION: Osteomyelitis of the left foot with wound. PROCEDURE: Right arm blood pressure is 148 . Pressures at the right ankle are 143 using the posterior tibial artery, and 143 using the dorsalis pedis artery with ankle- brachial index of 0.97 0.97 . Pressures at the left ankle are 164 using the posterior tibial artery, and 161 with ankle- brachial index of 1.11 1.09 . Wave forms by plethysmography are normal. US/US ankle/arm indices IMPRESSION: NO HEMODYNAMICALLY SIGNIFICANT PERIPHERAL VASCULAR OCCLUSIVE DISEASE AT REST IN EITHER LOWER EXTREMITY. Impression dictated by: Zaid Mon MD,FACS,FSVS 10/21/2024 10:41 AM Dictation Location: RAD-DOC-04 Tech: Tatianna Cheatham Transcribed By: GÉNESIS 10/21/24 1041 Dictated By: Zaid Mon MD 10/21/24 1040 Signed By: 10/21/24 1041NormHCA [facility] Hospital Physician GroupVancomycin,Peakon 10-21-2024 Vancomycin,Peak20.1Yipzkm34.0-40.0The [facility] Physician GroupComment on above: Order Comment: Comment ?DRAW 1 HOUR AFTER INFUSION COMPLETES Date of last dose?: 20241020 Time of last dose?: 399Result Comment: Last dose: - PERFORMED BY: [place] [address] PATHOLOGIST EDUCATION COUNSELOR MOHINDER GUTIERREZ M.D.Performed By: #### VANCP #### [facility] [address] [place] [address] USAVancomycin,Troughon 88-24-8426Ospcjvheeq,Arhzoi19.2Normal 10.0-20.0The [facility] Physician GroupComment on above:Order Comment: Time of next dose? 1200 per rn grover draw all @1130 Date of last dose?: 20241020 Time of last dose?: 399Result Comment: Last dose: - PERFORMED BY: [place] [id number] PATHOLOGIST EDUCATION COUNSELOR MOHINDER GUTIERREZ M.D.Performed By: #### CRP, MG, BMP, CBC #### [facility] [address] [place] [address] USAA1C with Estimated Average Gluon 30-60-6212Mtllhsp [Mass/Vol]249 mg/dLNormHCA Florida Trinity Hospital Physician [facility] HospitalComment on above:Result Comment: PERFORMED BY: [place] [address] PATHOLOGIST EDUCATION COUNSELOR MOHINDER GUTIERREZ M.D.Performed By: #### GLULS #### Point of Care testing ,HbA1c (Bld) [Mass fraction]10.3 %High4.3-5.6The [facility] Physician Group Comment on above:Result Comment: Increased risk for diabetes: 5.7 - 6.4 diabetes: >6.4 glycemic control for adults with diabetes: <7.0Performed By: #### GLULS #### Point of Care testing ,Alanine aminotransferase [Enzymatic activity/volume] in Serum or PlasmaOrdered By: Chino Peraza on 02-71-2024SIQ [Catalytic activity/Vol]19 U/LNormal7-52 [facility] Medical CenterComment on above:Performed By: #### CUBLD, CBC, HEPATIC, BMP, LIPASE, LACTIC ####[facility] [address] [place] [address] USAAlbumin [Mass/volume] in Serum or Plasma by Bromocresol green (BCG) dye binding methoOrdered By: Chino Peraza on 10-20-2024 Albumin BCG dye [Mass/Vol]3.7 g/dL3.5-5.7FProtestant Deaconess Hospital Alkaline phosphatase [Enzymatic activity/volume] in Serum or PlasmaOrdered By: Chino Peraza on 68-69-8757NCB [Catalytic activity/Vol]77 U/JBzlmcc59-000 [facility] Medical CenterComment on above:Performed By: #### CUBLD, CBC, HEPATIC, BMP, LIPASE, LACTIC ####[facility] [address] [place] [address] USAAppearance of UrineOrdered By: Chino Peraza on 46-77-5198Rfabmletjd (U)ClearNormalClearUniversity Hospitals Ahuja Medical CenterComment on above:Order Comment: Comment add onPerformed By: #### ESR #### [facility] [address] [place] [address] USAAspartate aminotransferase [Enzymatic activity/volume] in Serum or PlasmaOrdered By: Chino Peraza on 58-44-7891PYA [Catalytic activity/Vol]19 U/LDblawn63-53FdswksoojUniversity Hospitals Ahuja Medical CenterComment on above: Performed By: #### CUBLD, CBC, HEPATIC, BMP, LIPASE, LACTIC ####[facility] [address] [place] [address] USABacteria [Presence] in Urine by AutomatedOrdered By: Chino Peraza on 58-42-8696Ayrrwhsk Auto Ql (U) None seen [HPF]None SeenUniversity Hospitals Ahuja Medical CenterBasic Metabolic Panelon 26-10-6052Tlkuy gap [Moles/Vol]12.7 mmol/LNormal6.0-15.0[facility] Physician GroupComment on above:Performed By: #### GLULS #### Point of Care testing ,Calcium [Mass/Vol]8.7 mg/dLNormal8.6-10.3The [facility] Physician GroupComment on above:Performed By: #### GLULS #### Point of Care testing ,Chloride [Moles/Vol]100 mmol/OSmakuq76-061Hxl [facility] Physician GroupComment on above:Performed By: #### GLULS #### Point of Care testing ,CO2 [Moles/Vol]25.9 mmol/ZFpbzwl41.0-31.0[facility] Physician GroupComment on above:Performed By: #### GLULS #### Point of Care testing ,Creatinine [Mass/Vol]0.66 mg/dLNormal0.60-1.20[facility] Physician [facility] Comment on above:Performed By: #### GLULS #### Point of Care testing ,Creatinine Clr Calc Qoveojbw888.16NormalThe [facility] Physician [facility] HospitalComment on above:Performed By: #### GLULS #### Point of Care testing ,GFR/1.73 sq M.predicted MDRD (S/P/Bld) [Vol rate/Area]mL/min/{1.73_m2}NormalThe [facility] Physician GroupComment on above:Performed By: #### GLULS #### Point of Care testing ,Glucose [Mass/Vol]238 mg/oDMdxf81-875Zsr [facility] Physician GroupComment on above:Result Comment: Random Glucose Reference Range is dependent on time and content of last meal. Glucose of more than 200 mg/dL in a nonstressed, ambulatory subject supports the diagnosis of Diabetes Mellitus. ADA recommended reference rangePerformed By: #### GLULS #### Point of Care testing ,Potassium [Moles/Vol]3.6 mmol/LNormal3.5-5.1The [facility] Physician [facility] Comment on above:Performed By: #### GLULS #### Point of Care testing ,Sodium [Moles/Vol]135 mmol/DVeo532-030Xut [facility] Physician GroupComment on above:Performed By: #### GLULS #### Point of Care testing ,Urea nitrogen [Mass/Vol]13 mg/dLNormal7-25The [facility] Physician GroupComment on above:Performed By: #### GLULS #### Point of Care testing ,Creatinine Clr Calc Zmhjeovo763.46NormalThSt. Luke's [facility] Physician [facility] HospitalComment on above:Performed By: #### CUBLD, CBC, HEPATIC, BMP, LIPASE, LACTIC ####[place] [address] [place] [address] USAGFR/1.73 sq M.predicted MDRD (S/P/Bld) [Vol rate/Area]mL/min/{1.73_m2}NormalThe [facility] Physician [facility] HospitalComment on above:Performed By: #### CUBLD, CBC, HEPATIC, BMP, LIPASE, LACTIC ####[place] [address] [place] [address] USABasophils [#/volume] in Blood by Automated countOrdered By: Chino Peraza on 35-21-4611Ikzehkarc (Bld) [#/Vol]0.1 10*3/uLNormal0.0-0.2FProtestant Deaconess HospitalComment on above:Result Comment: PERFORMED BY: [facility] [address] [place] [address] PATHOLOGIST EDUCATION COUNSELOR MOHINDER GUTIERREZ M.D.Performed By: #### CUBLD, CBC, HEPATIC, BMP, LIPASE, LACTIC ####[place] [address] [place] [id number] [place] Basophils/100 leukocytes in Blood by Automated countOrdered By: Chino Peraza on 27-56-0625Idlloozwe/100 WBC (Bld)0.5 %Normal.[facility] Comment on above:Performed By: #### CUBLD, CBC, HEPATIC, BMP, LIPASE, LACTIC ####[place] [address] [facility] Bilirubin Test strip Ql (U)Ordered By: Chino Peraza on 42-56-6759Jvxvcycit Ql (U)NegativeNegativeUniversity Hospitals Ahuja Medical CenterBilirubin.direct [Mass/volume] in Serum or PlasmaOrdered By: Chino Peraza on 10-20-2024 Bilirubin.direct [Mass/Vol]0.10 mg/dL0.03-0.18[facility] Bilirubin.total [Mass/volume] in Serum or PlasmaOrdered By: Chino Peraza on 48-78-8966Xzwygnybb [Mass/Vol]0.7 mg/dLNormal0.3-1.0[facility]ja Medical CenterComment on above:Performed By: #### CUBLD, CBC, HEPATIC, BMP, LIPASE, LACTIC ####[place] [address] [place] [id number] [place] Blood Cultureon 84-08-4109Vpxqafhn identified Cx Nom (Bld)NO GROWTH 5 DAYS PERFORMED BY: [place] [address] PATHOLOGIST EDUCATION COUNSELOR MOHINDER GUTIERREZ M.D.[facility] Physician GroupComment on above: Performed By: #### CUBLD, CBC, HEPATIC, BMP, LIPASE, LACTIC ####[place] [address] USABacteria identified Cx Nom (Bld)NO GROWTH 5 DAYS PERFORMED BY: [place] [address] PATHOLOGIST EDUCATION COUNSELOR MOHINDER GUTIERREZ M.D.[facility] Physician GroupComment on above: Performed By: #### CUBLD, CBC, HEPATIC, BMP, LIPASE, LACTIC ####[place] [address] USAC-Reactive Proteinon 75-52-7803W-Reactive Protein3.4 mg/dLHigh0.0-0.5The [facility]ician Group Comment on above:Performed By: #### GLULS #### Point of Care testing ,CT abdomen pelvis w conon 53-38-0893SA abdomen pelvis w [facility] [place] [address] [place] [address] CT Scan Report Signed Patient: Ema Neff MR#: [id number] 15 : 1965 Acct:[id number] Age/Sex: 59 / F ADM Date: 10/20/24 Loc: Room: [address] [place] [address] Type: ADM IN Attending Dr: Felisa Iglesias MD Copies to: MD Chino Arshad DO Ordering Provider: Chino Peraza DO Date of Service: 10/20/24 CT/CT abdomen pelvis w con: Abdominal Pain CT abdomen pelvis w con 10/20/2024 1:11 AM SIGNS AND SYMPTOMS: Altered mental status, chills TECHNIQUE: Multidetector ct axial images of the abdomen and pelvis were obtained with IV contrast. Multiplanar reformats were performed and reviewed to further define anatomy and possible pathology. CT was performed with one or more of the following dose reduction techniques: Automated exposure control, adjustment of the mA and/or kV according to patient size, or use of iterative reconstruction technique. COMPARISON: 09/30/2021 FINDINGS: Lower Chest: Atherosclerotic changes are noted in the coronary arteries and thoracic aorta. ABDOMEN: Liver: The liver is hypoattenuating consistent with hepatic steatosis. Bile Ducts: Normal caliber. Gallbladder: Previously removed Pancreas: Within normal limits. Spleen: Within normal limits. Adrenals: There is a 1.6 cm left adrenal nodule which is unchanged. 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 There is perinephric fat stranding which is unchanged. There is no hydronephrosis. Pelvis: Reproductive Organs: No pelvic masses. Ureters: Within normal limits. Bladder: Within normal limits. Bowel: Normal caliber. Mesenteric Lymph Nodes: No enlarged mesenteric lymph nodes. Peritoneum: No ascites or free air, no fluid collection. Vessels: Atherosclerotic changes are noted in the abdominal aorta and its branches Retroperitoneum: Within normal limits. Abdominal Wall: There is a fat-containing periumbilical hernia Bones: Degenerative changes are noted in the lumbar spine. There is 6 mm of anterolisthesis of L4 upon L5. CT/CT abdomen pelvis w con IMPRESSION: The liver is hypoattenuating consistent with hepatic steatosis. No bowel obstruction or obstructive uropathy. No bowel obstruction or obstructive uropathy. Additional chronic findings are noted as above. Impression dictated by: Koko Krueger M.D. 10/20/2024 8:33 AM Dictation Location: [place] [address] Transcribed By: [facility] 10/20/24 0833 Dictated By: Koko Krueger II, MD 10/20/24 0816 Signed By: 10/20/24 0833[facility] Physician GroupCT head/brain wo conon 85-55-2200EP head/brain wo [facility] [place] [address] [place] [address] CT Scan Report Signed Patient: Ema Neff MR#: [id number] 15 : 1965 Acct:[id number] Age/Sex: 59 / F ADM Date: 10/20/24 Loc: 3T Room: [address] [place] [address] Type: ADM IN Attending Dr: Felisa Iglesias MD Copies to: MD Kristal Arshad, NAOMI Ordering Provider: Kristal Goldman APRN Date of Service: 10/20/24 CT/CT head/brain wo con: altered mental status CT BRAIN WITHOUT CONTRAST: CLINICAL HISTORY: Altered mental status, confusion COMPARISON: CT brain 12/21/2016 TECHNIQUE: Contiguous axial unenhanced images were obtained through the brain. This CT exam was performed using one or more following dose reduction techniques: Automated exposure control, adjustment of the mA and/or kV according to patient size, or use of iterative reconstruction technique. FINDINGS: There is no evidence of midline shift, intra or extra-axial fluid collection, or hemorrhage. Hypodensity is seen involving the right frontal lobe suggesting age-indeterminate infarct. Finding is new since 2017. Posterior fossa appears unremarkable. Visualized intraorbital contents demonstrate no acute findings. Visualized paranasal sinuses are clear. The surrounding soft tissues are normal. CT/CT head/brain wo con IMPRESSION: INDETERMINATE HYPODENSITY INVOLVING THE RIGHT FRONTAL LOBE NEW SINCE 2016. A SUBACUTE INFARCT CANNOT BE EXCLUDED. THIS CAN BE FURTHER EVALUATED BY BRAIN MRI. Impression dictated by: Jason Mays Jr., MohanOValentina 10/20/2024 1:14 PM Dictation Location: [place] [address] Transcribed By: [facility] 10/20/24 1314 Dictated By: Jason Mays Jr, DO 10/20/24 1310 Signed By: 10/20/24 1314[facility] Physician GroupCalcium [Mass/volume] in Serum or PlasmaOrdered By: Chino Peraza on 30-77-7715Ajejzpc [Mass/Vol]9.0 mg/dLNormal 8.6-10.3FProtestant Deaconess HospitalComment on above:Performed By: #### CUBLD, CBC, HEPATIC, BMP, LIPASE, LACTIC ####[place] [address] [place] [address] USACarbon dioxide, total [Moles/volume] in Serum or PlasmaOrdered By: Chino Peraza on 19-32-8722EE4 [Moles/Vol]26.4 mmol/LNormal 21.0-31.0[facility] Medical CenterComment on above:Performed By: #### CUBLD, CBC, HEPATIC, BMP, LIPASE, LACTIC ####[place] [address] [place] [address] USAChloride [Moles/volume] in Serum or Plasma Ordered By: Chino Peraza on 78-29-7087Reclkbom [Moles/Vol]102 mmol/CQnudcy40-665 [facility] Medical CenterComment on above:Performed By: #### CUBLD, CBC, HEPATIC, BMP, LIPASE, LACTIC ####[place] [address] USAColor of Urine by AutoOrdered By: Chino Peraza on 92-97-1025Fbssc (U)Light-yellowNormalYellowUniversity Hospitals Ahuja Medical Center Comment on above:Order Comment: Comment add onPerformed By: #### ESR #### [place] [address] USAComplete Blood Count Auto Diffon 24-88-5900Hscyvanji (Bld) [#/Vol]0.2 10*3/uLNormal0.0-0.2[facility] Physician GroupComment on above: Performed By: #### VANCP #### [facility] [address] [place] [address] USABasophils/100 WBC (Bld)1.0 %Normal.[facility] Physician GroupComment on above:Performed By: #### VANCP #### [place] [address] USAEosinophils (Bld) [#/Vol]0.1 10*3/uLNormal0.0-0.45The [facility] Physician GroupComment on above:Performed By: #### VANCP #### [place] [address] USAEosinophils/100 WBC (Bld)0.3 %Normal.The [facility] Physician GroupComment on above:Performed By: #### VANCP #### [place] [address] USAErythrocyte distribution width (RBC) [Ratio]18.2 %High 11.9-15.3The [facility] Physician GroupComment on above:Performed By: #### VANCP #### [place] [address] USAHematocrit (Bld) [Volume fraction]44.5 %Dewqoi74.0-46.4The [facility] Physician GroupComment on above:Performed By: #### VANCP #### [place] [address] USAHemoglobin (Bld) [Mass/Vol]14.2 g/tJAlaitc42.8-15.4The [facility] Physician GroupComment on above:Performed By: #### VANCP #### [place] [address] USALymphocytes (Bld) [#/Vol]2.3 10*3/uLNormal1.00-4.8The [facility] Physician GroupComment on above:Performed By: #### VANCP #### [place] [address] USALymphocytes/100 WBC (Bld)12.1 %Normal.The [facility] Physician GroupComment on above:Performed By: #### VANCP #### [place] [address] USAMCH (RBC) [Entitic mass]28.0 lbCxactz15.7-34.3The [facility] Physician GroupComment on above:Performed By: #### VANCP #### [place] [address] USAMCV (RBC) [Entitic vol]87.5 jAVdlcee38-324Mcw [facility] Physician GroupComment on above:Performed By: #### VANCP #### [place] [address] USAMean Corpuscular HGB Conc32.0 g/nOKnsotd07.0-35.0The [facility] Physician GroupComment on above:Performed By: #### VANCP #### [place] [address] USAMonocytes (Bld) [#/Vol]1.2 10*3/uLHigh0.0-0.8The [facility] Physician GroupComment on above:Performed By: #### VANCP #### [place] [address] USAMonocytes/100 WBC (Bld)6.2 %Normal.The [facility] Physician GroupComment on above:Performed By: #### VANCP #### [place] [address] USANeutrophils (Bld) [#/Vol]15.5 10*3/uLHigh1.8-7.7The [facility] Physician GroupComment on above:Performed By: #### VANCP #### [place] [address] USANeutrophils/100 WBC (Bld)80.4 %Normal.The [facility] Physician GroupComment on above:Performed By: #### VANCP #### [place] [address] USANRBC%0.1 /100{WBC}Normal0-0.5The [facility] Comment on above:Performed By: #### VANCP #### [place] [address] USAPlatelet mean volume (Bld) [Entitic vol]7.8 fLNormal 6.3-10.7The [facility] Physician GroupComment on above:Performed By: #### VANCP #### [place] [address] USAPlatelets (Bld) [#/Vol]282 10*3/hYQmmvqh119-668Xjh [facility] Physician GroupComment on above:Performed By: #### VANCP #### [facility] [address] [place] [address] USARBC (Bld) [#/Vol]5.08 10*6/uLHigh3.60-5.00The [facility] Physician GroupComment on above:Performed By: #### VANCP #### [facility] [address] [place] [address] USAWBC (Bld) [#/Vol]19.2 10*3/uLHigh3.8-11.6The [facility] Physician GroupComment on above:Performed By: #### VANCP #### [facility] [address] [place] [address] USAWhite Blood Count19.2 [CFU]/mLHigh3.8-11.6The [facility] Physician GroupComment on above:Performed By: #### VANCP #### [place] [address] USAMean Corpuscular HGB Conc32.9 g/wXUxvlgm42.0-35.0The [facility] Physician GroupComment on above:Performed By: #### CUBLD, CBC, HEPATIC, BMP, LIPASE, LACTIC ####[place] [address] USAMonocytes/100 WBC (Bld)18.42 %Normal0.00-20.00The [facility] Physician GroupComment on above:Performed By: #### CUBLD, CBC, HEPATIC, BMP, LIPASE, LACTIC ####[facility] [place] [address] USANRBC%0.2 /100{WBC}Normal0-0.5The [facility] Physician GroupComment on above:Performed By: #### CUBLD, CBC, HEPATIC, BMP, LIPASE, LACTIC ####[place] [address] USA White Blood Count17.9 [CFU]/mLHigh3.8-11.6The [facility] Physician GroupComment on above:Performed By: #### CUBLD, CBC, HEPATIC, BMP, LIPASE, LACTIC ####[facility] [address] [place] [id number] [place] Creatinine [Mass/volume] in Serum or PlasmaOrdered By: Chinodwight Peraza on 13-15-0944Ubttgleswc [Mass/Vol]0.68 mg/dLNormal0.60-1.20[facility]huja Medical CenterComment on above:Performed By: #### CUBLD, CBC, HEPATIC, BMP, LIPASE, LACTIC ####[facility] [address] [place] [address] USADipstick and Microscopicon 22-27-9894Kqmbmplq,UrineNone SeenNormalNone SeenThe [facility] Physician GroupComment on above:Order Comment: Comment add on Performed By: #### ESR #### [place] [address] USABilirubin,UrineNegativeNormalNegativeThe [facility] Physician GroupComment on above:Order Comment: Comment add onPerformed By: #### ESR #### [place] [address] USAGlucose Ql (U)>=NormalNormalThe [facility] Comment on above:Order Comment: Comment add onPerformed By: #### ESR #### [place] [address] USAHyaline Casts,UrineNoneNormal0-8The [facility] Physician GroupComment on above:Order Comment: Comment add onResult Comment: PERFORMED BY: [place] [address] PATHOLOGIST EDUCATION COUNSELOR MOHINDER GUTIERREZ M.D.Performed By: #### ESR #### [place] [address] USANitrite,UrineNegativeNormalNegativeThe [facility] Physician GroupComment on above:Order Comment: Comment add onPerformed By: #### ESR #### [place] [address] USAOccult Blood,UrineNegativeNormalNegativeThe [facility] Physician GroupComment on above:Order Comment: Comment add onResult Comment: PERFORMED BY: [place] [address] PATHOLOGIST EDUCATION COUNSELOR MOHINDER GUTIERREZ M.D.Performed By: #### ESR #### [place] [address] USARBC,Gcbfp3-1Uefkgm1-2Ywg [facility] Physician GroupComment on above:Order Comment: Comment add onPerformed By: #### ESR #### [place] [address] USASpecificy [place],Urine1.553Clyw0.001-1.030The [facility] Physician GroupComment on above:Order Comment: Comment add onPerformed By: #### ESR #### [place] [address] USASquamous Epithelial Cell,Mhlbl8-9Izbzzq9-0Vtr [facility] Physician GroupComment on above:Order Comment: Comment add onPerformed By: #### ESR #### [place] [address] USAUrobilinogen,UrineNormalNormalNormalThe [facility] Physician GroupComment on above:Order Comment: Comment add onPerformed By: #### ESR #### [place] [address] USAWBC,UrineNone SeenNormal0-4The [facility] Comment on above:Order Comment: Comment add onPerformed By: #### ESR #### [place] [address] USADrug Screen,Urineon 68-52-7086Cbwksrantvj Screen,Urine NegativeNormalNegativeThe [facility] Physician GroupComment on above:Order Comment: Comment add onPerformed By: #### ESR #### [place] [address] USABarbiturate Screen,UrineNegativeNormalNegativeThe [facility] Physician GroupComment on above:Order Comment: Comment add onPerformed By: #### ESR #### [place] [address] USABenzodiazepines Screen,UrineNegativeNormalNegativeThe [facility] Physician GroupComment on above:Order Comment: Comment add onPerformed By: #### ESR #### [place] [address] USACannabinoid Screen,UrinePositiveNormalNegativeThe [facility] Physician GroupComment on above:Order Comment: Comment add onResult Comment: These are unconfirmed results and should not be used for legal purposes. Drug Cut-Off Concentration: AMPH 1000 ng/mL SHUBHAM 200 ng/mL RENETTA 200 ng/mL COCM 300 ng/mL OP 300 ng/mL PCP 25 ng/mL THC 20 ng/mL PERFORMED BY: [place] [address] PATHOLOGIST EDUCATION COUNSELOR MOHINDER GUTIERREZ M.D.Performed By: #### ESR #### [place] [address] USACocaine Screen,UrineNegativeNormalNegativeThe [facility] Physician GroupComment on above:Order Comment: Comment add onPerformed By: #### ESR #### [place] [address] USAOpiate Screen,UrinePositiveNormalNegativeThe [facility] Physician GroupComment on above:Order Comment: Comment add onPerformed By: #### ESR #### [place] [address] USAPhencyclidine Screen,UrineNegativeNormalNegativeThe [facility] Physician GroupComment on above:Order Comment: Comment add onPerformed By: #### ESR #### [place] [address] USAECH echo transthoracicon 68-46-5384ZSL echo transthoracic [facility] [place] [address] [place] [address] Echocardiogram Signed Patient: Ema Neff MR#: [id number] 15 : 1965 Acct:[id number] Age/Sex: 59 / F ADM Date: 10/20/24 Loc: Room: [address] [place] [address] Type: ADM IN Attending Dr: Felisa Iglesias MD Ordering Provider: Kenan Cooley DO Date of Service: 10/20/2411/07/1407 ECH/[facility] echo transthoracic: stroke Copies to: DO Lashae Glasgow MD BSA: 2.2 m2 BP: 127/88 mmHg HR: 84 Reason For Study: stroke History: Smoker, PAD, HTN, DM, RICK, Obestiy, HLD, CKD, CVA, CAD, Stent Interpretation Summary Ejection Fraction = 65-70%. The left ventricular size and thickness are normal. No regional wall motion abnormalities noted. A variety of Doppler measurements indicate normal left ventricular diastolic function. Atrial septum appears to be intact and there is no evidence of flow across the atrial septum either by colorflow Doppler or by agitated saline. Compared to prior study, there is no significant change. Procedure/Quality: A two-dimensional transthoracic echocardiogram with color flow, Doppler and injection of aggitated saline was performed. A two- dimensional transthoracic echocardiogram with color flow, Doppler and injection of contrast agent Definity was performed. The study was technically good in quality. Left Ventricle: The left ventricular size and thickness are normal. Ejection Fraction = 65-70%. A variety of Doppler measurements indicate normal left ventricular diastolic function. No regional wall motion abnormalities noted. Left Atrium: The left atrium appears normal in size. Atrial septum appears to be intact and there is no evidence of flow across the atrial septum either by colorflow Doppler or by agitated saline. Right Atrium: The right atrium appears normal in size. Right Ventricle: The right ventricle is normal in size and function. Aortic Valve: The aortic valve is normal in structure. No hemodynamically significant valvular aortic stenosis. No aortic regurgitation is present. Mitral Valve: There is mild mitral annular calcification. No significant mitral valve stenosis. There is no mitral regurgitation noted. Tricuspid Valve: The tricuspid valve is normal in structure. No tricuspid regurgitation. Pulmonic Valve: The pulmonic valve is not well visualized. No significant pulmonic regurgitation. Arteries: The aortic root is normal size. Pericardium/Pleura: No pericardial effusion seen. IVC/Hepatic Veins: The inferior vena cava is normal in size, with a normal collapsibility index. Measurements with Normals IVSd: 1.0 cm (0.7-1.1 cm)LVIDd: 4.1 cm (3.7-5.4 cm) LVPWd: 0.90 cm (0.7-1.1 cm)LVIDs: 2.8 cm (2.3-3.6 cm) LA dimension: 2.8 cm (2.3-4.0 cm)Ao root diam: 3.0 cm(2.0-3.6 cm) asc Aorta Diam: 3.6 cm(2.1-3.4cm) Doppler with Normals LV V1 max: 120.0 cm/sec (0.7-1.7m/s)MV E max williams: 105.0 cm/sec(0.8-1.3m/s) MV A max williams: 99.2 cm/sec(0.0-0.0m/s) MV E/A: 1.1 (<1.5) MMode/2D Measurements Calculations RVDd: 2.7 cm FS: 32.9 % Ao root area: LVOT diam: 2.0 cm TAPSE: 2.4 cm EDV(Teich): 7.1 cm2 LVOT area: 3.1 cm2 RV S Williams: 74.2 ml 21.1 cm/sec ESV(Teich): 28.3 ml EF(Teich): 61.9 % __ LVLd ap4: 7.5 cm SV(MOD-sp4): LAV(MOD-sp4): LA A2 area: 15.8 cm2 EDV(MOD-sp4): 64.6 ml 39.6 ml 93.0 ml LAV(MOD-sp2): LA A4 area: 16.6 cm2 LVLs ap4: 6.5 cm 39.6 ml LA length (vol): ESV(MOD-sp4): 5.6 cm 28.4 ml LA vol: 39.9 ml EF(MOD-sp4): 69.5 % LA vol index: 18.3 ml/m2 Doppler Measurements Calculations MV dec time: MV V2 max: E/E' lat: 6.9 MV P1/2t max williams: 0.17 sec 118.0 cm/sec E/E' med: 8.5 111.0 cm/sec MV max P.6 mmHg MV P1/2t: 54.3 msec MV V2 mean: 76.0 cm/sec MVA(P1/2t): 4.0 cm2 MV mean PG: MV dec slope: 3.0 mmHg 598.5 cm/sec2 MV V2 VTI: 30.7 cm MVA(VTI): 2.4 cm2 __ Ao V2 max: LV V1 max PG: RAP systole: 149.0 cm/sec 5.8 mmHg 5.0 mmHg Ao max P.9 mmHgLV V1 mean PG: Ao mean P.0 mmHg 5.0 mmHg LV V1 mean: Ao V2 mean: 77.7 cm/sec 98.9 cm/sec LV V1 VTI: 23.7 cm Ao V2 VTI: 31.8 cm TOM(I,D): 2.3 cm2 TOM(V,D): 2.5 cm2 Transcribed By: KAMILLA Performed At: 10/20/24 1430 Signed By: Lashae Eden MD 10/20/24 1555[facility] Eosinophils [#/volume] in Blood by Automated countOrdered By: Chino Peraza on 29-16-1634Zmsufllfljh (Bld) [#/Vol]0.0 10*3/uLNormal0.0-0.45[facility]huja Medical CenterComment on above:Performed By: #### CUBLD, CBC, HEPATIC, BMP, LIPASE, LACTIC ####[facility] [place] [address] USAEosinophils/100 leukocytes in Blood by Automated countOrdered By: Chino Peraza on 63-45-4896Qxtnuzupyao/100 WBC (Bld)0.2 %Normal.[facility]huja Medical CenterComment on above:Performed By: #### CUBLD, CBC, HEPATIC, BMP, LIPASE, LACTIC ####[facility] [place] [address] USAEpithelial cells.squamous [#/area] in Urine sediment by Automated countOrdered By: Chino Peraza on 12-57-2213Znhevxlhjw cells.squamous Auto (Urine sed) [#/Area]1-2 [HPF]0-2FProtestant Deaconess HospitalErythrocyte Sedimentation Rateon 60-08-6705EFY (Bld) [Velocity]35 mm/hHigh0-29The [facility] Physician GroupComment on above:Result Comment: PERFORMED BY: [facility] [address] [place] [address] PATHOLOGIST EDUCATION COUNSELOR MOHINDER GUTIERREZ M.D.Performed By: #### GLULS #### Point of Care testing ,Erythrocyte distribution width [Ratio] by Automated countOrdered By: Chino Peraza on 25-82-1096Herhdinyaeo distribution width (RBC) [Ratio]18.1 %High 11.9-15.3FProtestant Deaconess HospitalComment on above:Performed By: #### CUBLD, CBC, HEPATIC, BMP, LIPASE, LACTIC ####[place] [place] [address] USAErythrocytes [#/area] in Urine sediment by Automated countOrdered By: Chino Peraza on 36-17-8234ZOO Auto (Urine sed) [#/Area]1-2 [HPF]0-4FProtestant Deaconess HospitalErythrocytes [#/volume] in Blood by Automated countOrdered By: Chino Peraza on 39-14-8448KCO (Bld) [#/Vol] 5.35 10*6/uLHigh3.60-5.00[facility]huja Medical CenterComment on above: Performed By: #### CUBLD, CBC, HEPATIC, BMP, LIPASE, LACTIC ####[address] [place] [address] USAGlucose Poct Glucometerson 52-44-0015Zmuxezf [Mass/Vol]206 mg/dLNormHCA Florida Trinity Hospital Physician GroupComment on above:Result Comment: Random Glucose Reference Range is dependent on time and content of last meal. Glucose of more than 200 mg/dL in a nonstressed, ambulatory subject supports the diagnosis of Diabetes Mellitus. PERFORMED BY: [facility] [address] [place] [address] PATHOLOGIST EDUCATION COUNSELOR MOHINDER GUTIERREZ M.D.Performed By: #### CRP, MG, BMP, CBC #### [place] [address] ENVUygttoa3Vbx8: Cleaned MeterNoECU Health Physician GroupComment on above:Result Comment: PERFORMED BY: [place] [address] PATHOLOGIST EDUCATION COUNSELOR MOHINDER GUTIERREZ M.D.Performed By: #### VANCP #### [place] [address] USAGlucose [Mass/Vol]222 mg/dLNoECU Health Physician GroupComment on above:Result Comment: Random Glucose Reference Range is dependent on time and content of last meal. Glucose of more than 200 mg/dL in a nonstressed, ambulatory subject supports the diagnosis of Diabetes Mellitus.Performed By: #### VANCP #### [place] [address] USAGlucose [Mass/Vol]182 mg/dLGulf Breeze Hospital Physician GroupComment on above:Result Comment: Random Glucose Reference Range is dependent on time and content of last meal. Glucose of more than 200 mg/dL in a nonstressed, ambulatory subject supports the diagnosis of Diabetes Mellitus. PERFORMED BY: [place] [address] PATHOLOGIST EDUCATION COUNSELOR MOHINDER GUTIERREZ M.D.Performed By: #### VANCP #### [place] [address] USAGlucose [Mass/Vol]257 mg/dLGulf Breeze Hospital Physician GroupComment on above:Result Comment: Random Glucose Reference Range is dependent on time and content of last meal. Glucose of more than 200 mg/dL in a nonstressed, ambulatory subject supports the diagnosis of Diabetes Mellitus. PERFORMED BY: [place] [address] PATHOLOGIST EDUCATION COUNSELOR MOHINDER GUTIERREZ M.D.Performed By: #### ESR #### [address] [place] [address] USAGlucose [Mass/volume] in Serum or PlasmaOrdered By: Chino Peraza on 26-09-2003Xygsfgf [Mass/Vol]176 mg/tYJwuv04-569RxjbbylseUniversity Hospitals Ahuja Medical CenterComment on above:ADA recommended reference rangeRandom Glucose Reference Range is dependent on time and content of last meal. Glucose of more than 200 mg/dL in a nonstressed, ambulatory subject supports the diagnosisof Diabetes Mellitus.Result Comment: Random Glucose Reference Range is dependent on time and content of last meal. Glucose of more than 200 mg/dL in a nonstressed, ambulatory subject supports the diagnosis of Diabetes Mellitus. ADA recommended reference rangePerformed By: #### CUBLD, CBC, HEPATIC, BMP, LIPASE, LACTIC ####[facility] [place] [id number] USAGlucose [Mass/volume] in Urine by Test stripOrdered By: Chino Peraza on 24-22-9633Whnnaob Test strip (U) [Mass/Vol]>=1000 mg/dLHighParkview HealthHematocrit [Volume Fraction] of Blood by Automated count Ordered By: Chino Peraza on 72-60-9466Tetgkewmgc (Bld) [Volume fraction]46.2 % Fujluv35.0-46.4FProtestant Deaconess HospitalComment on above:Performed By: #### CUBLD, CBC, HEPATIC, BMP, LIPASE, LACTIC ####[facility] [place] [address] USAHemoglobin Test strip Ql (U)Ordered By: Chino Peraza on 20-37-5890Ssjfdeezaq Ql (U)NegativeNegativeUniversity Hospitals Ahuja Medical CenterHemoglobin [Mass/volume] in BloodOrdered By: Chino Peraza on 60-70-9001Bouaqdyodq (Bld) [Mass/Vol]15.2 g/hRMooels41.8-15.4FProtestant Deaconess HospitalComment on above:Performed By: #### CUBLD, CBC, HEPATIC, BMP, LIPASE, LACTIC ####[facility] [place] [address] USAHepatic Panelon 02-41-6609Vhwavul [Mass/Vol]3.7 g/dLNormal3.5-5.7 The [facility] Physician GroupComment on above:Performed By: #### CUBLD, CBC, HEPATIC, BMP, LIPASE, LACTIC ####[facility] [place] [address] USABilirubin,Indirect0.6 mg/dLNormalThe [facility] Physician [facility] HospitalComment on above:Performed By: #### CUBLD, CBC, HEPATIC, BMP, LIPASE, LACTIC ####[facility] [place] [address] USABilirubin.indirect [Mass/Vol]0.10 mg/dLNormal0.03-0.18The [facility] Physician [facility] HospitalComment on above:Performed By: #### CUBLD, CBC, HEPATIC, BMP, LIPASE, LACTIC ####[facility] [place] [address] USAHyaline casts [#/area] in Urine sediment by Automated countOrdered By: Chino Peraza on 18-28-2287Bplufrk casts Auto (Urine sed) [#/Area]None [LPF]0-8 [facility]huja Medical CenterKetones [Presence] in Urine by Test strip Ordered By: Chino Peraza on 27-51-1082Rjognmf Ql (U)2+NormalNegativeUniversity Hospitals Ahuja Medical CenterComment on above:Order Comment: Comment add onPerformed By: #### ESR #### [facility] [address] [place] [address] USALactate [Moles/volume] in Serum or PlasmaOrdered By: Chino Peraza on 52-79-4079Ihfvyky [Moles/Vol]1.4 mmol/LNormal0.5-1.9[facility]ja Medical CenterComment on above:Lactic Acid reference range has been updated to 0.5 1.9 mmol/L and the critical range of 2.0 or greater.Result Comment: Lactic Acid reference range has been updated to 0.5 ? 1.9 mmol/L and the critical range of 2.0 or greater. PERFORMED BY: [facility] [address] [facility]ITAL[facility] [place] [id number] PATHOLOGIST EDUCATION COUNSELOR MOHINDER GUTIERREZ M.D.Performed By: #### CUBLD, CBC, HEPATIC, BMP, LIPASE, LACTIC ####[address] [place] [address] [place] Leukocyte esterase [Presence] in Urine by Test stripOrdered By: Chino Peraza on 71-28-4261Jaxghkost esterase Test strip Ql (U)NegativeNormalNegativeUniversity Hospitals Ahuja Medical CenterComment on above:Order Comment: Comment add onPerformed By: #### ESR #### [facility] [address] [place] [id number] USALeukocytes [#/area] in Urine sediment by Automated count Ordered By: Chino Peraza on 47-18-9188STW Auto (Urine sed) [#/Area]None seen [HPF]0-4FProtestant Deaconess HospitalLeukocytes [#/volume] corrected for nucleated erythrocytes in Blood by Automated counOrdered By: Chino Peraza on 36-38-4336WZX corrected for nucl RBC Auto (Bld) [#/Vol]17.9 10*3/uLHigh3.8-11.6 [facility] Medical CenterLeukocytes [#/volume] in Blood by Automated countOrdered By: Chino Peraza on 39-52-0471ITZ (Bld) [#/Vol]17.9 10*3/uLHigh 3.8-11.6FProtestant Deaconess HospitalComment on above:Performed By: #### CUBLD, CBC, HEPATIC, BMP, LIPASE, LACTIC ####[place] [address] USALipase [Enzymatic activity/volume] in Serum or PlasmaOrdered By: Chino Peraza on 62-07-5072Iugxml [Catalytic activity/Vol]34.0 U/OFebczd57.0-82.0[facility]ja Medical CenterComment on above:Result Comment: PERFORMED BY: [facility] [address] [place] [address] PATHOLOGIST EDUCATION COUNSELOR MOHINDER GUTIERREZ M.D.Performed By: #### CUBLD, CBC, HEPATIC, BMP, LIPASE, LACTIC ####[place] [address] USALipid Panelon 06-45-6793Rvrqfwboihk [Mass/Vol]136 mg/dOYdo898-988Ahl [facility] Physician GroupComment on above:Result Comment: Chol less than 200 mg/dl low risk Chol 201-239 mg/dl borderline risk Chol 240 mg/dl and greater high riskPerformed By: #### GLULS #### Point of Care testing ,Cholesterol in HDL [Mass/Vol]37 mg/xIGrbtvh03-80Pgb [facility] Comment on above:Result Comment: HDL CHOL ATP-III CLASSIFICATION Cardiovascular Risk HDL > or equal to 60 mg/dL LOW HDL < 40 mg/dL HIGHPerformed By: #### GLULS #### Point of Care testing ,Cholesterol.total/Cholesterol in HDL [Mass ratio]3.7 {ratio}Normal<5.0The [facility] Physician [facility] HospitalComment on above:Performed By: #### GLULS #### Point of Care testing ,LDL Cholesterol,Qvfltjggih96 mg/dLNormal0-100The [facility] Comment on above:Result Comment: LDL ATP III CLASSIFICATION LDL less than 100 mg/dL Optimal LDL 100-129 mg/dL Near or above optimal LDL 130-159 mg/dL Borderline high LDL 160-189 mg/dL High LDL greater than 189 mg/dL Very highPerformed By: #### GLULS #### Point of Care testing ,Triglyceride w/Tsdeiw986 mg/dLNormal0-149The [facility] Physician GroupComment on above:Result Comment: TRIG ATP III CLASSIFICATION TRIG less than 150 mg/dL Normal TRIG 150-199 mg/dL Borderline high TRIG 200-500 mg/dL High TRIG greater than 500 mg/dL Very high Standard traceable to the Center for Disease Conrtrol and Prevention (CDC) test method.Performed By: #### GLULS #### Point of Care testing ,VLDL SFHWYBZMATN42 mg/dLNormalThe [facility] Physician GroupComment on above: Performed By: #### GLULS #### Point of Care testing ,Lymphocytes [#/volume] in Blood by Automated countOrdered By: Chino Peraza on 45-01-6240Nbbzbygmkkq (Bld) [#/Vol]2.1 10*3/uLNormal1.00-4.8[facility]ja Medical CenterComment on above:Performed By: #### CUBLD, CBC, HEPATIC, BMP, LIPASE, LACTIC ####[address] [address] USALymphocytes/100 leukocytes in Blood by Automated countOrdered By: Chino Peraza on 42-57-4362Ivukuzorvya/100 WBC (Bld)11.8 %Normal.[facility]huja Medical CenterComment on above:Performed By: #### CUBLD, CBC, HEPATIC, BMP, LIPASE, LACTIC ####[address] [address] [facility] [Entitic mass] by Automated countOrdered By: Chino Peraza on 73-83-8903WLO (RBC) [Entitic mass]28.4 aqWwaroa15.7-34.3FProtestant Deaconess HospitalComment on above:Performed By: #### CUBLD, CBC, HEPATIC, BMP, LIPASE, LACTIC ####[address] [address] [facility] Auto (RBC) [Mass/Vol]Ordered By: Chino Peraza on 62-45-2141MHTA (RBC) [Mass/Vol]32.9 g/dL32.0-35.0[facility] CenterV [Entitic volume] by Automated countOrdered By: Chino Peraza on 86-78-0067HRY (RBC) [Entitic vol]86.4 iWZdpklw99-055KenkeorpqUniversity Hospitals Ahuja Medical CenterComment on above:Performed By: #### CUBLD, CBC, HEPATIC, BMP, LIPASE, LACTIC ####[address] [address] USAMagnesiumon 00-29-0908Kuhdtwtlf [Mass/Vol]1.7 mg/dLLow1.9-2.7[facility] Comment on above:Performed By: #### GLULS #### Point of Care testing ,Monocyte distribution width [Entitic volume] in Blood by AutomatedOrdered By: Chino Peraza on 64-48-5324Zbhnxgiw distribution width Auto (Bld) [Entitic vol] 18.42 %0.00-20.00[facility] Ahuja Medical CenterMonocytes [#/volume] in Blood by Automated countOrdered By: Chino Peraza on 18-62-1853Ujwoldgoj (Bld) [#/Vol] 1.2 10*3/uLHigh0.0-0.8[facility] Ahuja Medical CenterComment on above: Performed By: #### CUBLD, CBC, HEPATIC, BMP, LIPASE, LACTIC ####[place] [address] [place] [id number] USAMonocytes/100 leukocytes in Blood by Automated countOrdered By: Chino Peraza on 10-20-2024 Monocytes/100 WBC (Bld)6.8 %Normal.[facility] Ahuja Medical CenterComment on above:Performed By: #### CUBLD, CBC, HEPATIC, BMP, LIPASE, LACTIC ####[place] [address] [place] [address] USANeutrophils [#/volume] in Blood by Automated countOrdered By: Chino Peraza on 10-20-2024 Neutrophils (Bld) [#/Vol]14.4 10*3/uLHigh1.8-7.7FProtestant Deaconess HospitalComment on above:Performed By: #### CUBLD, CBC, HEPATIC, BMP, LIPASE, LACTIC ####[place] [address] [place] [address] [place] Neutrophils/100 leukocytes in Blood by Automated countOrdered By: Chino Peraza on 65-70-4744Emwbqlfhwxo/100 WBC (Bld)80.7 %Normal.[facility] Ahuja Medical CenterComment on above:Performed By: #### CUBLD, CBC, HEPATIC, BMP, LIPASE, LACTIC ####[address] [address] [place] Nitrite Test strip Ql (U)Ordered By: Chino Peraza on 39-66-8662Ccnudze Ql (U) NegativeNegativeUniversity Hospitals Ahuja Medical CenterNo Panel InformationOrdered By: Chino Peraza on 20-07-9154Xfsyymmhp GFR (CKD-EPI)> 60.0 mL/MinUniversity Hospitals Ahuja Medical CenterPharmacy Creatinine Clearance (Ahuz572.46[facility]huja Medical CenterNucleated erythrocytes [Presence] in Blood by Automated countOrdered By: Chino Peraza on 95-50-8056Jobzokebs RBC Auto Ql (Bld)0.2 /100{WBC}0-0.5FProtestant Deaconess HospitalPlatelet mean volume [Entitic volume] in Blood by Automated countOrdered By: Chino Peraza on 10-20-2024 Platelet mean volume (Bld) [Entitic vol]7.6 fLNormal6.3-10.7FProtestant Deaconess HospitalComment on above:Performed By: #### CUBLD, CBC, HEPATIC, BMP, LIPASE, LACTIC ####[address] [address] USAPlatelets [#/volume] in Blood by Automated countOrdered By: Chino Peraza on 70-46-2897Eppqgjvwa (Bld) [#/Vol]281 10*3/dCKsuuop950-139JgzafthrzUniversity Hospitals Ahuja Medical CenterComment on above:Performed By: #### CUBLD, CBC, HEPATIC, BMP, LIPASE, LACTIC ####[address] [address] USAPotassium [Moles/volume] in Serum or PlasmaOrdered By: Chino Peraza on 00-76-7090Vbyzvlywa [Moles/Vol]3.8 mmol/LNormal3.5-5.1FProtestant Deaconess HospitalComment on above:Performed By: #### CUBLD, CBC, HEPATIC, BMP, LIPASE, LACTIC ####[address] [address] USAProtein [Mass/volume] in Serum or PlasmaOrdered By: Chino Peraza on 67-55-7394Yzhmplq [Mass/Vol]7.1 g/dLNormal6.4-8.9[facility]huja Medical CenterComment on above:Performed By: #### CUBLD, CBC, HEPATIC, BMP, LIPASE, LACTIC ####[address] [address] [place] Protein [Mass/volume] in Urine by Test stripOrdered By: Chino Peraza on 43-59-8855Txjubss (U) [Mass/Vol]30 mg/dLNormalNegativeUniversity Hospitals Ahuja Medical CenterComment on above:Order Comment: Comment add onPerformed By: #### ESR #### [facility] [address] [place] [address] USASerum globulin measurement by calculation (mass/volume) Ordered By: Chino Peraza on 80-84-9662Ciphiitf (S) [Mass/Vol]3.4 g/dLNormal [facility]huja Medical CenterComment on above:Performed By: #### CUBLD, CBC, HEPATIC, BMP, LIPASE, LACTIC ####[facility] [place] [address] USASerum or plasma albumin/globulin mass ratioOrdered By: Chino Peraza on 65-25-7113Xvzrmkt/Globulin [Mass ratio]1.1 {ratio}Normal [facility]huja Medical CenterComment on above:Performed By: #### CUBLD, CBC, HEPATIC, BMP, LIPASE, LACTIC ####[facility] [place] [address] USASerum or plasma anion gap determinationOrdered By: Chino Peraza on 07-34-6553Ezvla gap [Moles/Vol]13.4 mmol/LNormal6.0-15.0 [facility]ja Medical CenterComment on above:Performed By: #### CUBLD, CBC, HEPATIC, BMP, LIPASE, LACTIC ####[facility] [place] [address] USASerum or plasma non-glucuronidated bilirubin measurement (mass/volume)Ordered By: Chino Peraza on 10-20-2024 Bilirubin.indirect [Mass/Vol]0.6 mg/dLSamaritan Hospitalodium [Moles/volume] in Serum or PlasmaOrdered By: Chino Peraza on 91-69-5577Wymcbd [Moles/Vol]138 mmol/HIzgzlo830-197GfadzjgxcUniversity Hospitals Ahuja Medical CenterComment on above:Performed By: #### CUBLD, CBC, HEPATIC, BMP, LIPASE, LACTIC ####[place] [address] [place] [phone] USASpecific gravity Test strip (U) [Rel density]Ordered By: Chino Peraza on 07-04-3515Rzugllhn gravity (U) [Rel density]1.030Cvsw6.001-1.030[facility]huja Medical CenterThyroid Stimulating Hormoneon 66-63-2647UIG Qn3.73 m[IU]/LNormal0.45-5.33[facility] Physician GroupComment on above:Result Comment: PERFORMED BY: [place] [address] PATHOLOGIST EDUCATION COUNSELOR MOHINDER GUTIERREZ M.D.Performed By: #### GLULS #### Point of Care testing ,Urea nitrogen [Mass/volume] in Serum or PlasmaOrdered By: Chino Peraza on 36-55-6989Kjmh nitrogen [Mass/Vol]15 mg/dLNomission hospital-[facility]huja Medical CenterComment on above:Performed By: #### CUBLD, CBC, HEPATIC, BMP, LIPASE, LACTIC ####[facility] [address] Urobilinogen Test strip (U) [Mass/Vol]Ordered By: Chino Peraza on 10-20-2024 Urobilinogen (U) [Mass/Vol]Normal mg/dLNoKettering Health Troy Vit. B12/Folate Profileon 10-33-6634Nkfzopcns (Vitamin B12) [Mass/Vol]273 pg/mL Lsfzyd040-310Kwq [facility] Hospital Of ErieComment on above:Performed By: #### GLULS #### Point of Care testing ,Lmomml60.2 ng/mLNormal>5.9[facility] Physician [facility] HospitalComment on above:Result Comment: Folate reference range: >5.9 ng/ml The WHO technical consultation on folate and vitamin b12 deficiencies has determined that folate concentrations less than 4 ng/ml are considered deficient.Performed By: #### GLULS #### Point of Care testing ,XR foot LT min 3V*on 67-68-9940GH foot LT min 3V*[facility] [address] [place] [address] [place], [place] [address] XRay Report Signed Patient: Ema Neff MR#: [id number] 15 : 1965 Acct:[id number] Age/Sex: 59 / F ADM Date: 10/20/24 Loc: Room: [address] [place] [address] Type: ADM IN Attending Dr: Felisa Iglesias MD Copies to: MD Chino Arshad DO Ordering Provider: Chino Peraza DO Date of Service: 10/20/24 XR/XR foot LT min 3V*: Altered Mental Status XR foot LT min 3V* 10/20/2024 12:13 AM SIGNS AND SYMPTOMS: Altered Mental Status, possible infection in left foot PROTOCOL: Frontal, lateral, and oblique radiographs of the left foot COMPARISON: 11/08/2023 FINDINGS: 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 There is similar osteopenia along the distal tuft of the third phalanx suspicious for osteomyelitis. The joint spaces are preserved. There is no evidence of acute displaced fracture. There is diffuse soft tissue swelling. Plantar surface and Achilles surface calcaneal spurring is redemonstrated. XR/XR foot LT min 3V* IMPRESSION: There is similar osteopenia along the distal tuft of the third phalanx suspicious for osteomyelitis. There is diffuse soft tissue swelling. Impression dictated by: Koko Krueger M.D. 10/20/2024 8:15 AM Dictation Location: [place] [address] Transcribed By: [facility] 10/20/24814 Dictated By: Koko Krueger II, MD 10/20/2414 Signed By: 10/20/24 0815[facility] Physician GrouppH of Urine by Test stripOrdered By: Chino Peraza on 72-54-3877oX (U)7.5 [pH]Normal5.0-9.0[facility]ja Medical CenterComment on above:Order Comment: Comment add onPerformed By: #### ESR #### [place] [address] USACapillary blood glucose measurement by glucometer (mass/volume)Ordered By: Ray Hays on 55-33-0618Nkegdcv [Mass/Vol]194 mg/dL Parkview HealthComment on above:Random Glucose Reference Range is dependent on time and content of last meal. Glucose of more than 200 mg/dL in a nonstressed, ambulatory subject supports the diagnosis of Diabetes Mellitus.Result Comment: Random Glucose Reference Range is dependent on time and content of last meal. Glucose of more than 200 mg/dL in a nonstressed, ambulatory subject supports the diagnosis of Diabetes Mellitus. PERFORMED BY: [address] [place] [id number] PATHOLOGIST EDUCATION COUNSELOR MOHINDER GUTIERREZ M.D.Performed By: #### GLULS #### Point of Care testing ,GLUCOSE POCT GLUCOMETERSon 93-35-8162Uuznqvw [Mass/Vol]194 mg/dLOzarks Medical Center Comment on above:Random Glucose Reference Range is dependent on time and content of last meal. Glucose of more than 200 mg/dL in a nonstressed, ambulatory subject supports the diagnosis of Diabetes Mellitus. [facility] HealthcareUS arterial pvr limited [place] 84-96-6207JO arterial pvr limited [facility] [address] [place] [address] [place] [address] Ultrasound Report Signed Patient: Ema Neff MR#: [id number] 15 : 1965 Acct:[id number] Age/Sex: 59 / F ADM Date: 09/29/24 Loc: Room: Type: [facility] Attending Dr: Ray Hays DPM Ordering Provider: Ray Hays DPM Date of Service: 09/29/24 US/US arterial pvr limited LE: I73.9 Copies to: Ray Hays DPM LOWER EXTREMITY SEGMENTAL ARTERIAL DOPSCAN (PVR) INDICATION: Surveillance study for left leg bypass graft and prior to limitations. PROCEDURE: Right arm blood pressure is 102 , left is 117 . Pressures throughout the right leg are cno at the high thigh, 112 at the low thigh, 123 at the calf, 90 at the ankle using the posterior tibial artery and 98 at the ankle using the dorsalis pedis artery with ankle-brachial index of 0.84 0.77 . Pressures throughout the left leg are 106 at the ankle using the posterior tibial artery and 116 at the ankle using the dorsalis pedis artery with ankle-brachial index of 0.99 0.91 . Wave forms by plethysmography are biphasic, bilaterally. 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 THE PATIENT IS MOST LIKELY TO HAVE diffuse DISEASE OF THE bilateral LOWER EXTREMITY. Impression dictated by: Zaid Mon MD,FACS,FSVS 10/01/2024 5:27 PM Dictation Location: [place] [address] Tech: Roxi Leroy Transcribed By: PWS 10/01/241726 Dictated By: Zaid Mon MD 10/01/241725 Signed By: 10/01/24 172[facility] SnfmtDbE8f (Bld) [Mass fraction]on 35-30-0418Hlxismvgmupojy and review of laboratory resultsAbOaklawn Hospital HealthcareLaboratory - Hematology and Cell countson 55-88-4320FfM3c (Bld) [Mass fraction]9.4 %[facility] Medical CenterHbA1c (Bld) [Mass fraction]on 00-12-7490OLGFOzarks Medical CenterLaboratory - Hematology and Cell countson 68-44-8663OvK2p (Bld) [Mass fraction]10.2 %[facility] Medical CenterXR Chest 2 Viewson 01-07-2024 EXAM: XR Chest, Two Views. REASON FOR EXAM: Nonproductive cough, shortness of breath. COMPARISON: None FINDINGS: Two images of the chest are submitted. The cardiac and mediastinal silhouettes are normalfor size. The trachea is not displaced. Pulmonary vasculature is normal. The lungs are clear. The regional skeleton and pleural surfaces are without significant abnormality. IMPRESSION: No acute cardiopulmonary abnormalities. *This report is generated using voice recognition reporting (VibeWritee). On occasion [employer] Labscribe erroneously drops words from the report or replaces the spoken word with similar sounding words. Please call with any questions/concerns regarding this report.* Dictated and transcribed 01/07/24/dpd This report has been electronically signed and approved by the interpreting radiologist. Electronically Signed Lalito Cooper II, M.D. 2024-01-07 15:14:16 Lalito Jolley MD - 01/07/2024 EXAM: XR Chest, Two Views. REASON FOR EXAM: Nonproductive cough, shortness of breath. COMPARISON: None FINDINGS: Two images of the chest are submitted. The cardiac and mediastinal silhouettes are normalfor size. The trachea is not displaced. Pulmonary vasculature is normal. The lungs are clear. The regional skeleton and pleural surfaces are without significant abnormality. IMPRESSION: No acute cardiopulmonary abnormalities. *This report is generated using voice recognition reporting (XGIMI). On occasion [employer] Labscribe erroneously drops words from the report or replaces the spoken word with similar sounding words. Please call with any questions/concerns regarding this report.* Dictated and transcribed 01/07/24/dpd This report has been electronically signed and approved by the interpreting radiologist. Electronically Signed Lalito Cooper II, M.D. 2024-01-07 15:14:16 [facility] HealthcareXR Chest 2 ViewsOrdered By: Lalito Cooper on 63-74-3475GLEKOzarks Medical Center Work Phone: Basic metabolic 1997 panelon 50-24-7432Tymupxk [Mass/Vol]9.6 mg/dL8.7 - 10.2 mg/dLNOTN HealthcareChloride [Moles/Vol]99 mmol/L 96 - 106 mmol/LNOMS HealthcareCO2 [Moles/Vol]27 mmol/L20 - 29 mmol/LNOMS HealthcareCreatinine [Mass/Vol]1.01 mg/dLHigh0.57 - 1.00 mg/dLNOTN Healthcare GFR/1.73 sq M.predicted among non-blacks MDRD (S/P/Bld) [Vol rate/Area]65 mL/min/{1.73_m2}59 - PINF mL/min/1.73NOMS HealthcareGlucose [Mass/Vol]205 mg/dL High70 - 99 mg/dLNOTN HealthcarePotassium [Moles/Vol]4.8 mmol/L3.5 - 5.2 mmol/L [facility] HealthcareSodium [Moles/Vol]142 mmol/L134 - 144 mmol/LNOMS HealthcareUrea nitrogen [Mass/Vol]14 mg/dL6 - 24 mg/dLNOTN HealthcareUrea nitrogen/Creatinine [Mass ratio]14 mg/mg9 - 23NOTN HealthcareHemoglobin a1c with eagon 01-06-2024 Average glucose Estimated from glycated hemoglobin (Bld) [Mass/Vol]226 mg/dLNOSaint Louis University HospitalEjskfrqsyqWfE7i (Bld) [Mass fraction]9.5 %High4.8 - 5.6 %NOMS HealthcareComment on above:Prediabetes: 5.7 - 6.4 Diabetes: >6.4 Glycemic control for adults with diabetes: <7.0 No Panel Informationon 36-05-5801Sidaykkxavgshi and review of laboratory results AbnormalNOMS HealthcarePerformed at: 01 - Lab[address] [id number] Web Editor: Donny Cary PhD, Phone: [phone] Langone Health Specimen Status Reporton 46-38-7314Rdlzgqgpcsh Disk diffusion (KB) [[facility]]Comment NOMS HealthcareComment on above:Ambig Abbrev BMP8 Default Ambig Abbrev BMP8 Default A hand-written panel/profile was received from your office. In accordance with the LabSt[facility] Ambiguous Test Code Policy dated September 2002, we have completed your order by using the closest currently or formerly recognized AMA panel. We have assigned Basic Metabolic Panel (8), Test Code #755213 to this request. If this is not the testing you wished to receive on this specimen, please contact the [facility] Client Inquiry/Technical Services Department to clarify the test order. We appreciate your business. XR CHEST 2 VIEWSon 46-68-3778NO CHEST 2 VIEWSEXAM: XR Chest, Two Views. REASON FOR EXAM: Nonproductive cough, shortness of breath. COMPARISON: None FINDINGS: Two images of the chest are submitted. The cardiac and mediastinal silhouettes are normalfor size. The trachea is not displaced. Pulmonary vasculature is normal. The lungs are clear. The regional skeleton and pleural surfaces are without significant abnormality. IMPRESSION: No acute cardiopulmonary abnormalities. *This report is generated using voice recognition reporting (VibeWritee). On occasion [employer] Labscribe erroneously drops words from the report or replaces the spoken word with similar sounding words. Please call with any questions/concerns regarding this report.* Dictated and transcribed 01/07/24/dpd This report has been electronically signed and approved by the interpreting radiologist. Electronically Signed Lalito Cooper II, M.D. 2024-01-07 15:14:16NormalNot AvailableXR Chest 2 Viewson 79-71-4772Cxwmycvkw Study observation (narrative)NOMS HealthcareActivated partial thromboplastin time (aPTT) in platelet poor plasma by coagulation aOrdered By: Concetta Murphy on 38-00-4956fBRB Coag (PPP) [Time]28.0 s25.1-36.5FProtestant Deaconess HospitalComment on above:A hematocrit value greater than 55% may lead to inaccurate results in coagulation testing. Patientshaving hematocrit values >55% require a special collection tube for coagulation studies. Please contact the laboratory at [phone] for redraw instructions.Basophils Auto (Bld) [#/Vol] Ordered By: Concetta Murphy on 66-75-4785Hingvqgkt (Bld) [#/Vol]0.2 10*3/uL 0.0-0.2FProtestant Deaconess HospitalBasophils/100 WBC Auto (Bld)Ordered By: Concetta Murphy on 80-15-9190Uxbnefhrv/100 WBC (Bld)1.0 %.[facility]ja Medical CenterCalcium [Mass/volume] in Serum or PlasmaOrdered By: Concetta Murphy on 67-69-9824Ieekpvw [Mass/Vol]8.8 mg/dL8.6-10.3FProtestant Deaconess HospitalCarbon dioxide, total [Moles/volume] in Serum or PlasmaOrdered By: Concetta Murphy on 65-22-1161OE1 [Moles/Vol]27.9 mmol/L21.0-31.0[facility] Medical CenterChloride [Moles/volume] in Serum or PlasmaOrdered By: Concetta Murphy on 71-41-6357Xfhreqfu [Moles/Vol]103 mmol/T99-223MbdpprrkpUniversity Hospitals Ahuja Medical CenterCreatinine [Mass/volume] in Serum or PlasmaOrdered By: Concetta Murphy on 37-00-7354Vumsyefvzp [Mass/Vol]1.01 mg/dL0.60-1.20[facility]ja Medical CenterEosinophils Auto (Bld) [#/Vol]Ordered By: Concetta Murphy on 44-62-9202Imsviubrzic (Bld) [#/Vol]0.2 10*3/uL0.0-0.45[facility]ja Medical CenterEosinophils/100 WBC Auto (Bld)Ordered By: Concetta Murphy on 93-53-5055Yufglagnydd/100 WBC (Bld)1.6 %.[facility] Erythrocyte distribution width Auto (RBC) [Ratio]Ordered By: Concetta Murphy on 46-75-0299Nlytuhwigmf distribution width (RBC) [Ratio]13.4 %11.9-15.3FProtestant Deaconess HospitalGlucose [Mass/volume] in Serum or PlasmaOrdered By: Concetta Murphy on 86-77-8493Lznppys [Mass/Vol]142 mg/eVUbsu18-702RwrlfepmjUniversity Hospitals Ahuja Medical CenterComment on above:ADA recommended reference rangeRandom Glucose Reference Range is dependent on time and content of last meal. Glucose of more than 200 mg/dL in a nonstressed, ambulatory subject supports the diagnosisof Diabetes Mellitus.Hematocrit Auto (Bld) [Volume fraction]Ordered By: Concetta Murphy on 06-99-4000Qkuavlrbgl (Bld) [Volume fraction]48.3 %High 34.0-46.4FProtestant Deaconess HospitalHemoglobin [Mass/volume] in Blood Ordered By: Concetta Murphy on 60-05-8134Qritzgbhdd (Bld) [Mass/Vol]16.0 g/dL High11.8-15.4FProtestant Deaconess HospitalINR in Platelet poor plasma by Coagulation assayOrdered By: Concetta Murphy on 06-98-0970YFQ Coag (PPP) [Relative time]0.9 {INR}[facility] Medical CenterComment on above:INR Therapeutic Range A) Pre- and Peroperative OAT started two weeks before surgery. NOT HIP SURGERY: 1.5 - 2.5 HIP SURGERY: 2 - 3B) Primary and secondary prevention of venous THROMBOSIS: 2 - 3C) Active venous thrombosis, pulmonary embolismand prevention of recurrent venous thrombosis: 2 - 3D) Prevention of arterial thromboembolismincluding patients with mechanical heart valves: 3 - 4.5 Leukocytes [#/volume] corrected for nucleated erythrocytes in Blood by Automated counOrdered By: Concetta Murphy on 79-67-1867WKO corrected for nucl RBC Auto (Bld) [#/Vol]14.7 10*3/uLHigh3.8-11.6FProtestant Deaconess Hospital Lymphocytes Auto (Bld) [#/Vol]Ordered By: Concetta Murphy on 11-08-2023 Lymphocytes (Bld) [#/Vol]3.7 10*3/uL1.00-4.8[facility] Lymphocytes/100 WBC Auto (Bld)Ordered By: Concetta Murphy on 11-08-2023 Lymphocytes/100 WBC (Bld)25.3 %.[facility]ja Medical CenterMCH Auto (RBC) [Entitic mass]Ordered By: Concetta Murphy on 78-13-6557JMU (RBC) [Entitic mass] 30.9 pg24.7-34.3FProtestant Deaconess HospitalMCHC Auto (RBC) [Mass/Vol] Ordered By: Concetta Murphy on 32-95-8014EEFQ (RBC) [Mass/Vol]33.1 g/dL32.0-35.0 [facility] Medical CenterMCV Auto (RBC) [Entitic vol]Ordered By: Concetta Murphy on 74-05-6309YVS (RBC) [Entitic vol]93.4 sA65-873TrayngcniUniversity Hospitals Ahuja Medical CenterMonocyte distribution width [Entitic volume] in Blood by AutomatedOrdered By: Concetta Murphy on 82-83-1387Xrmsewxh distribution width Auto (Bld) [Entitic vol]20.11 %High0.00-20.00[facility] Comment on above:For adults in ED, MDW > 20.0 may be associated with a higher risk of sepsis during the first 12 hrs of hospital admissionMonocytes Auto (Bld) [#/Vol]Ordered By: Concetta Murphy on 44-09-8669Ztinzllmk (Bld) [#/Vol]1.0 10*3/uLHigh0.0-0.8[facility] Medical CenterMonocytes/100 WBC Auto (Bld) Ordered By: Concetta Murphy on 97-32-2733Cynnieexu/100 WBC (Bld)6.5 %.[facility]huja Medical CenterNeutrophils Auto (Bld) [#/Vol]Ordered By: Concetta Murphy on 42-98-9743Ynvyolgtatj (Bld) [#/Vol]9.6 10*3/uLHigh1.8-7.7Fire[facility] Medical CenterNeutrophils/100 WBC Auto (Bld)Ordered By: Concetta Murphy on 15-25-2933Weivwfjfooo/100 WBC (Bld)65.6 %.[facility] Medical CenterNo Panel InformationOrdered By: Concetta Murphy on 23-61-2660Pdpfaputp GFR (CKD-EPI)> 60.0 mL/MinUniversity Hospitals Ahuja Medical CenterPharmacy Creatinine Clearance (Chem77.50[facility]ja Medical CenterNucleated erythrocytes [Presence] in Blood by Automated countOrdered By: Concetta Murphy on 11-08-2023 Nucleated RBC Auto Ql (Bld)0.1 /100{WBC}0-0.5FProtestant Deaconess Hospital Platelet mean volume Auto (Bld) [Entitic vol]Ordered By: Concetta Murphy on 02-09-0211Xebjlnes mean volume (Bld) [Entitic vol]7.9 fL6.3-10.7FProtestant Deaconess HospitalPlatelets Auto (Bld) [#/Vol]Ordered By: Concetta Murphy on 98-28-7287Oibbfoonc (Bld) [#/Vol]335 10*3/wF661-685AoodljxwrUniversity Hospitals Ahuja Medical CenterPotassium [Moles/volume] in Serum or PlasmaOrdered By: Concetta Murphy on 66-23-1836Meqrciedh [Moles/Vol]4.4 mmol/L3.5-5.1FProtestant Deaconess HospitalProthrombin time (PT)Ordered By: Concetta Murphy on 21-43-3128DW Coag (PPP) [Time]10.7 s9.0-12.9[facility] Medical CenterComment on above:A hematocrit value greater than 55% may lead to inaccurate results in coagulation testing. Patientshaving hematocrit values >55% require a special collection tube for coagulation studies. Please contact the laboratory at [phone] for redraw instructions.RBC Auto (Bld) [#/Vol]Ordered By: Concetta Murphy on 05-25-0028KQU (Bld) [#/Vol]5.17 10*6/uLHigh3.60-5.00Samaritan Hospitalerum or plasma anion gap determinationOrdered By: Concetta Murphy on 12-54-9751Vpcpz gap [Moles/Vol]11.5 mmol/L6.0-15.0Samaritan Hospitalodium [Moles/volume] in Serum or PlasmaOrdered By: Concetta Juanysara on 14-52-8821Xrjfle [Moles/Vol]138 mmol/V194-630SsikkdkqiUniversity Hospitals Ahuja Medical Center Urea nitrogen [Mass/volume] in Serum or PlasmaOrdered By: Concetta Murphy on 54-37-5476Irvg nitrogen [Mass/Vol]17 mg/dL7-25[facility] WBC Auto (Bld) [#/Vol]Ordered By: Concetta Murphy on 56-61-4231EXL (Bld) [#/Vol] 14.7 10*3/uLHigh3.8-11.6FProtestant Deaconess HospitalGlucose Glucometer (BldC) [Mass/Vol]Ordered By: AUTUMN Torres on 84-80-9740Wecnaaf [Mass/Vol] 168 mg/dLUniversity Hospitals Ahuja Medical CenterComment on above:Random Glucose Reference Range is dependent on time and content of last meal. Glucose of more than 200 mg/dL in a nonstressed, ambulatory subject supports the diagnosis of Diabetes Mellitus.Gram stain for investigation of transfusion reactionOrdered By: AUTUMN Torres on 42-51-0858Boateofuqrc observation Gram stain Nom (Unsp spec)Pseudomonas aeruginosaAbnormalUniversity Hospitals Ahuja Medical Center Basophils Auto (Bld) [#/Vol]Ordered By: AUTUMN Torres on 10-11-2023 Basophils (Bld) [#/Vol]0.1 10*3/uL0.0-0.2FProtestant Deaconess Hospital Basophils/100 WBC Auto (Bld)Ordered By: Thanh Torres on 10-11-2023 Basophils/100 WBC (Bld)0.9 %.[facility] CenterCalcium [Mass/volume] in Serum or PlasmaOrdered By: AUTUMN Torres on 10-11-2023 Calcium [Mass/Vol]8.8 mg/dL8.6-10.3FProtestant Deaconess HospitalCarbon dioxide, total [Moles/volume] in Serum or PlasmaOrdered By: AUTUMN Torres on 02-26-5686XS6 [Moles/Vol]29.9 mmol/L21.0-31.0[facility] CenterChloride [Moles/volume] in Serum or PlasmaOrdered By: [facility] Kanu Torres on 90-77-9775Ggqnpeun [Moles/Vol]102 mmol/F38-345EgxbjwizqUniversity Hospitals Ahuja Medical CenterCreatinine [Mass/volume] in Serum or PlasmaOrdered By: [facility] Kanu Torres on 79-72-8225Vzziyowjry [Mass/Vol]1.08 mg/dL0.60-1.20[facility] CenterEosinophils Auto (Bld) [#/Vol]Ordered By: [facility] Kanu Torres on 22-59-8289Ednalgnwzfi (Bld) [#/Vol]0.2 10*3/uL0.0-0.45[facility] CenterEosinophils/100 WBC Auto (Bld)Ordered By: [facility] Kanu Torres on 15-99-1836Upnhsibmlsn/100 WBC (Bld)1.7 %.[facility] Erythrocyte distribution width Auto (RBC) [Ratio]Ordered By: [facility] Kanu Torres on 61-25-0716Oinzouziuqm distribution width (RBC) [Ratio]13.3 %11.9-15.3 [facility] CenterGlucose [Mass/volume] in Serum or PlasmaOrdered By: [facility] Kanu Torres on 64-64-2544Hnrkoxd [Mass/Vol]129 mg/oQMnzl86-529 [facility] CenterComment on above:ADA recommended reference rangeRandom Glucose Reference Range is dependent on time and content of last meal. Glucose of more than 200 mg/dL in a nonstressed, ambulatory subject supports the diagnosisof Diabetes Mellitus.Hematocrit Auto (Bld) [Volume fraction]Ordered By: [facility] Kanu Torres on 66-37-7459Qsfppiatzn (Bld) [Volume fraction]46.0 %34.0-46.4FProtestant Deaconess HospitalHemoglobin [Mass/volume] in BloodOrdered By: [facility] Kanu Torres on 60-58-4358Cogmrzxbpv (Bld) [Mass/Vol]15.4 g/dL11.8-15.4FProtestant Deaconess HospitalLeukocytes [#/volume] corrected for nucleated erythrocytes in Blood by Automated coun Ordered By: Thanh Torres on 20-78-5065QPC corrected for nucl RBC Auto (Bld) [#/Vol]12.3 10*3/uLHigh3.8-11.6FProtestant Deaconess Hospital Lymphocytes Auto (Bld) [#/Vol]Ordered By: Thanh Torres on 10-11-2023 Lymphocytes (Bld) [#/Vol]2.9 10*3/uL1.00-4.8[facility] Lymphocytes/100 WBC Auto (Bld)Ordered By: Thanh Torres on 10-11-2023 Lymphocytes/100 WBC (Bld)23.6 %.[facility]H Auto (RBC) [Entitic mass]Ordered By: Thanh Torres on 21-04-5825NQR (RBC) [Entitic mass]31.3 pg24.7-34.3FProtestant Deaconess HospitalMCHC Auto (RBC) [Mass/Vol] Ordered By: Thanh Torres on 00-56-6474EOKV (RBC) [Mass/Vol]33.5 g/dL 32.0-35.0[facility] CenterMCV Auto (RBC) [Entitic vol]Ordered By: Thanh Torres on 76-38-5671MHY (RBC) [Entitic vol]93.4 rM51-621 [facility] CenterMonocytes Auto (Bld) [#/Vol]Ordered By: Thanh Torres on 35-42-8464Uugbhpcaa (Bld) [#/Vol]0.5 10*3/uL0.0-0.8[facility] CenterMonocytes/100 WBC Auto (Bld)Ordered By: Thanh Torres on 81-05-1066Ltzpivwvj/100 WBC (Bld)4.2 %.[facility] CenterNeutrophils Auto (Bld) [#/Vol]Ordered By: Thanh Torres on 20-96-4776Zghpqdifnfo (Bld) [#/Vol]8.6 10*3/uLHigh1.8-7.7FProtestant Deaconess HospitalNeutrophils/100 WBC Auto (Bld)Ordered By: AUTUMN Torres on 04-32-1206Sjdrvylywbk/100 WBC (Bld)69.6 %.[facility] CenterNo Panel InformationOrdered By: AUTUMN Torres on 63-67-5245Dnmcbenag GFR (CKD-EPI)59.912 mL/MinUniversity Hospitals Ahuja Medical CenterPharmacy Creatinine Clearance (ChemN/AFProtestant Deaconess HospitalNucleated erythrocytes [Presence] in Blood by Automated countOrdered By: AUTUMN Torres on 18-72-0985Jhcoxslps RBC Auto Ql (Bld)0.1 /100{WBC}0-0.5FProtestant Deaconess HospitalPlatelet mean volume Auto (Bld) [Entitic vol]Ordered By: AUTUMN Torres on 80-61-6349Otsjktxn mean volume (Bld) [Entitic vol]7.4 fL 6.3-10.7FProtestant Deaconess HospitalPlatelets Auto (Bld) [#/Vol]Ordered By: AUTUMN Torres on 09-26-4654Hmbgyerue (Bld) [#/Vol]295 10*3/qD005-836 [facility] CenterPotassium [Moles/volume] in Serum or Plasma Ordered By: AUTUMN Torres on 67-89-6388Xyssbpges [Moles/Vol]4.6 mmol/L 3.5-5.1FProtestant Deaconess HospitalRBC Auto (Bld) [#/Vol]Ordered By: AUTUMN Torres on 69-78-2824WIE (Bld) [#/Vol]4.92 10*6/uL3.60-5.00[facility]itan Hospitalerum or plasma anion gap determinationOrdered By: AUTUMN Torres on 92-02-6154Qmvfd gap [Moles/Vol]10.7 mmol/L6.0-15.0[facility]itan Hospitalodium [Moles/volume] in Serum or PlasmaOrdered By: AUTUMN Torres on 88-54-0265Nbzdto [Moles/Vol]138 mmol/J033-757GivfhnopxUniversity Hospitals Ahuja Medical CenterUrea nitrogen [Mass/volume] in Serum or PlasmaOrdered By: AUTUMN Torres on 27-77-9059Nrql nitrogen [Mass/Vol]17 mg/dL7-25[facility] CenterWBC Auto (Bld) [#/Vol]Ordered By: AUTUMN Torres on 53-77-7101HBT (Bld) [#/Vol]12.3 10*3/uLHigh3.8-11.6FProtestant Deaconess HospitalCreatinine [Mass/volume] in UrineOrdered By: Jarvis Thrasher on 06-01-2023 Creatinine (U) [Mass/Vol]55.0 mg/dL11.0-20.0[facility] Glucose mean value [Mass/volume] in Blood Estimated from glycated hemoglobin Ordered By: Jarvis Thrasher on 78-10-8743Qewrxrj glucose Estimated from glycated hemoglobin (Bld) [Mass/Vol]146 mg/dLUniversity Hospitals Ahuja Medical CenterHemoglobin A1c percentageOrdered By: Jarvis Thrasher on 45-68-5571ZbR0k (Bld) [Mass fraction] 6.7 %4.3-5.6FProtestant Deaconess HospitalComment on above:Increased risk for diabetes: 5.7 - 6.4diabetes: >6.4glycemic control for adults with diabetes: &l t;7.0Microalbumin [Mass/volume] in UrineOrdered By: Jarvis Thrasher on 06-01-2023 Albumin DL <= 20 mg/L (U) [Mass/Vol]0.7 mg/dL0.0-1.8[facility] CenterUrine microalbumin/creatinine mass ratioOrdered By: Jarvis Thrasher on 11-15-0017Sqvbefy/Creatinine DL <= 20 mg/L (U) [Mass ratio]12.0 mg/g0.0-30.0 [facility] CenterComment on above:30-300 mg/g indicates an increased risk for diabetic nephropathy. Greater than 300 mg/g is consistent with clinical nephropathy. (Am. J. Kidney Disease 1995, 25:107)Glucose Glucometer (BldC) [Mass/Vol]Ordered By: AUTUMN Torres on 51-72-8234Wynuigl [Mass/Vol]91 mg/dLUniversity Hospitals Ahuja Medical CenterComment on above:Random Glucose Reference Range is dependent on time and content of last meal. Glucose of more than 200 mg/dL in a nonstressed, ambulatory subject supports the diagnosis of Diabetes Mellitus.No Panel InformationOrdered By: AUTUMN Torres on 68-09-0732Oavdlew Glucose CommentGlu2: cleaned meterUniversity Hospitals Ahuja Medical CenterGlucose Glucometer (BldC) [Mass/Vol]Ordered By: Thanh Torres on 05-05-5834Jraxlko [Mass/Vol]60 mg/dLUniversity Hospitals Ahuja Medical Center Comment on above:Random Glucose Reference Range is dependent on time and content of last meal. Glucose of more than 200 mg/dL in a nonstressed, ambulatory subject supports the diagnosis of Diabetes Mellitus.No Panel InformationOrdered By: Thanh Torres on 56-58-5093Rgqxcxd Glucose CommentGlu2: cleaned meter [facility] CenterAlanine aminotransferase [Enzymatic activity/volume] in Serum or PlasmaOrdered By: Thanh Torres on 04-16-2023 ALT [Catalytic activity/Vol]9 U/L7-52[facility] CenterAlbumin [Mass/volume] in Serum or Plasma by Bromocresol green (BCG) dye binding metho Ordered By: Thanh Torres on 86-41-3092Ffyyufu BCG dye [Mass/Vol]3.4 g/dL 3.5-5.7FProtestant Deaconess HospitalAlkaline phosphatase [Enzymatic activity/volume] in Serum or PlasmaOrdered By: Thanh Torres on 04-16-2023 ALP [Catalytic activity/Vol]68 U/B71-941HlksemyasUniversity Hospitals Ahuja Medical Center Aspartate aminotransferase [Enzymatic activity/volume] in Serum or PlasmaOrdered By: Thanh Torres on 01-42-3522QAY [Catalytic activity/Vol]13 U/L13-39 [facility] CenterBasophils Auto (Bld) [#/Vol]Ordered By: Thanh Torres on 05-04-4685Hfxjwyeua (Bld) [#/Vol]0.2 10*3/uL0.0-0.2FProtestant Deaconess HospitalBasophils/100 WBC Auto (Bld)Ordered By: [facility] Kanu Torres on 18-89-6099Ljeuqibuv/100 WBC (Bld)1.2 %.[facility] Medical CenterBilirubin.total [Mass/volume] in Serum or PlasmaOrdered By: [facility] Kanu Torres on 74-63-3780Kugidvgcy [Mass/Vol]0.3 mg/dL0.3-1.0[facility] CenterC reactive protein [Mass/volume] in Serum or PlasmaOrdered By: [facility] Kanu Torres on 71-28-5188EAD [Mass/Vol]0.7 mg/dL0.0-0.5FProtestant Deaconess HospitalCalcium [Mass/volume] in Serum or PlasmaOrdered By: [facility] Kanu Torres on 58-14-0462Dpiyfeu [Mass/Vol]8.8 mg/dL8.6-10.3FProtestant Deaconess HospitalCarbon dioxide, total [Moles/volume] in Serum or PlasmaOrdered By: [facility] Kanu Torres on 50-47-5517YR7 [Moles/Vol]34.0 mmol/L21.0-31.0[facility] CenterChloride [Moles/volume] in Serum or PlasmaOrdered By: [facility] Kanu Torres on 09-77-0855Jdoxpyzh [Moles/Vol]105 mmol/R75-558GlakxtsabUniversity Hospitals Ahuja Medical CenterCreatinine [Mass/volume] in Serum or PlasmaOrdered By: [facility] Kanu Torres on 47-70-2481Vvsltmhsve [Mass/Vol]1.37 mg/dL0.60-1.20 [facility] CenterEosinophils Auto (Bld) [#/Vol]Ordered By: [facility] Kanu Torres on 77-60-2778Qmscksdiryn (Bld) [#/Vol]0.2 10*3/uL0.0-0.45 [facility] CenterEosinophils/100 WBC Auto (Bld)Ordered By: [facility] Kanu Torres on 45-88-7107Njtcndjklff/100 WBC (Bld)1.7 %.[facility] CenterErythrocyte distribution width Auto (RBC) [Ratio]Ordered By: [facility] Kanu Estefania Melissa on 77-63-5642Xdmyziyigfo distribution width (RBC) [Ratio]15.5 % 11.9-15.3FProtestant Deaconess HospitalErythrocyte sedimentation rate by Photometric methodOrdered By: [facility] Kanu Torres on 91-28-0887YET Photometric method (Bld) [Velocity]36 mm/hr0-29[facility] Medical CenterGlobulin Calc (S) [Mass/Vol]Ordered By: [facility] Kanu Torres on 08-32-2686Pylownuq (S) [Mass/Vol]2.8 g/dLUniversity Hospitals Ahuja Medical CenterGlucose [Mass/volume] in Serum or PlasmaOrdered By: [facility] Kanu Torres on 11-90-3545Anvvjhm [Mass/Vol]83 mg/qI33-691GvcmzmipyUniversity Hospitals Ahuja Medical CenterComment on above:ADA recommended reference rangeRandom Glucose Reference Range is dependent on time and content of last meal. Glucose of more than 200 mg/dL in a nonstressed, ambulatory subject supports the diagnosisof Diabetes Mellitus.Hematocrit Auto (Bld) [Volume fraction]Ordered By: [facility] Kanu Torres on 28-77-6950Biqneilljj (Bld) [Volume fraction]45.3 %34.0-46.4FProtestant Deaconess HospitalHemoglobin [Mass/volume] in BloodOrdered By: [facility] Kanu Torres on 70-18-0732Arempddccz (Bld) [Mass/Vol]14.9 g/dL11.8-15.4FProtestant Deaconess HospitalLeukocytes [#/volume] corrected for nucleated erythrocytes in Blood by Automated coun Ordered By: [facility] Kanu Torres on 57-95-8311XIM corrected for nucl RBC Auto (Bld) [#/Vol]12.7 10*3/uL3.8-11.6FProtestant Deaconess HospitalLymphocytes Auto (Bld) [#/Vol]Ordered By: [facility] Kanu Torres on 13-55-0618Cndhwedvzzk (Bld) [#/Vol]3.2 10*3/uL1.00-4.8[facility] Medical CenterLymphocytes/100 WBC Auto (Bld)Ordered By: Thanh Torres on 51-17-0925Osukystygnh/100 WBC (Bld) 24.9 %.[facility] CenterH Auto (RBC) [Entitic mass]Ordered By: Thanh Torres on 47-08-2520VSY (RBC) [Entitic mass]30.6 pg24.7-34.3 [facility] CenterMCHC Auto (RBC) [Mass/Vol]Ordered By: Thanh Torres on 36-21-5353EMHZ (RBC) [Mass/Vol]32.9 g/dL32.0-35.0[facility] CenterMCV Auto (RBC) [Entitic vol]Ordered By: Thanh Torres on 65-89-5451FGF (RBC) [Entitic vol]93.2 uW69-615CcfxcwgslUniversity Hospitals Ahuja Medical CenterMonocytes Auto (Bld) [#/Vol]Ordered By: Thanh Torres on 53-36-8832Imxsjfalf (Bld) [#/Vol]0.7 10*3/uL0.0-0.8[facility] CenterMonocytes/100 WBC Auto (Bld)Ordered By: Thanh Torres on 04-16-2023 Monocytes/100 WBC (Bld)5.6 %.[facility] Medical CenterNeutrophils Auto (Bld) [#/Vol]Ordered By: Thanh Torres on 20-33-9726Jahczaathrt (Bld) [#/Vol]8.4 10*3/uL1.8-7.7FProtestant Deaconess HospitalNeutrophils/100 WBC Auto (Bld)Ordered By: Thanh Torres on 34-68-2916Weuifeqsufc/100 WBC (Bld) 66.6 %.[facility] CenterNo Panel InformationOrdered By: Thanh Torres on 93-97-8403Ztghyrjls GFR (CKD-EPI)45.036 mL/MinUniversity Hospitals Ahuja Medical CenterPharmacy Creatinine Clearance (ChemN/[facility] HospitalNucleated erythrocytes [Presence] in Blood by Automated count Ordered By: Thanh Torres on 53-50-5471Kvdkamjbf RBC Auto Ql (Bld)0.1 /100{WBC}0-0.5FProtestant Deaconess HospitalPlatelet mean volume Auto (Bld) [Entitic vol]Ordered By: Thanh Torres on 90-54-5981Etjqcobj mean volume (Bld) [Entitic vol]7.3 fL6.3-10.7FProtestant Deaconess HospitalPlatelets Auto (Bld) [#/Vol]Ordered By: [facility] Kanu Torres on 33-78-3648Jifpyioet (Bld) [#/Vol]372 10*3/kT716-013ZtgxwfwnlUniversity Hospitals Ahuja Medical CenterPotassium [Moles/volume] in Serum or PlasmaOrdered By: Thanh Torres on 04-16-2023 Potassium [Moles/Vol]5.0 mmol/L3.5-5.1FProtestant Deaconess Hospital Prealbumin [Mass/volume] in Serum or PlasmaOrdered By: [facility] Kanu Torres on 80-53-6702Hvsuqeaojb [Mass/Vol]19.0 mg/dL17.0-34.0[facility] CenterProtein [Mass/volume] in Serum or PlasmaOrdered By: Thanh Torres on 43-40-0982Nchzatd [Mass/Vol]6.2 g/dL6.4-8.9[facility] Medical CenterRBC Auto (Bld) [#/Vol]Ordered By: [facility] Kanu Torres on 38-44-5530RTR (Bld) [#/Vol]4.86 10*6/uL3.60-5.00[facility] Hospitalerum or plasma albumin/globulin mass ratioOrdered By: [facility] Kanu Torres on 04-16-2023 Albumin/Globulin [Mass ratio]1.2 {ratio}[facility] Hospitalerum or plasma anion gap determinationOrdered By: Thanh Torres on 04-16-2023 Anion gap [Moles/Vol]7.0 mmol/L6.0-15.0[facility] Hospitalodium [Moles/volume] in Serum or PlasmaOrdered By: CWThanh Torres on 04-16-2023 Sodium [Moles/Vol]141 mmol/I745-366WsfmqwufmUniversity Hospitals Ahuja Medical CenterUrea nitrogen [Mass/volume] in Serum or PlasmaOrdered By: [facility] Kanu Torres on 98-80-4858Uzql nitrogen [Mass/Vol]21 mg/dL7-25[facility] WBC Auto (Bld) [#/Vol]Ordered By: [facility] Kanu Quintanaceli on 28-34-2690DPV (Bld) [#/Vol]12.7 10*3/uL3.8-11.6FProtestant Deaconess HospitalBasophils Auto (Bld) [#/Vol]Ordered By: Misti Toro on 52-74-8423Gyhtqasdy (Bld) [#/Vol]0.1 10*3/uL0.0-0.2FProtestant Deaconess HospitalBasophils/100 WBC Auto (Bld) Ordered By: Misti Toro on 05-60-7775Lvmnqvdzu/100 WBC (Bld)1.1 %.[facility] CenterEosinophils Auto (Bld) [#/Vol]Ordered By: Misti Toro on 33-41-1324Heicgwtomfe (Bld) [#/Vol]0.2 10*3/uL0.0-0.45[facility] CenterEosinophils/100 WBC Auto (Bld)Ordered By: Misti Toro on 02-91-3239Qqfqspmnurz/100 WBC (Bld)1.9 %.[facility] Erythrocyte distribution width Auto (RBC) [Ratio]Ordered By: Misti Toro on 58-54-5561Tlfjecylgpn distribution width (RBC) [Ratio]14.8 %11.9-15.3FProtestant Deaconess HospitalFerritin [Mass/volume] in Serum or PlasmaOrdered By: Misti Toro on 43-77-2322Yotdfwen [Mass/Vol]80.8 ng/mL11.0-306.8[facility] Medical CenterHematocrit Auto (Bld) [Volume fraction]Ordered By: Misti Toro on 78-25-7212Dyhqapbqdn (Bld) [Volume fraction]46.6 %34.0-46.4FProtestant Deaconess HospitalHemoglobin [Mass/volume] in BloodOrdered By: Misti Toro on 83-52-7093Joiiwqsouk (Bld) [Mass/Vol]15.5 g/dL11.8-15.4FProtestant Deaconess HospitalIron [Mass/volume] in Serum or PlasmaOrdered By: Misti Toro on 13-56-6930Tnfx [Mass/Vol]66 ug/xF40-984JbknxxlsyUniversity Hospitals Ahuja Medical CenterIron binding capacity [Mass/volume] in Serum or PlasmaOrdered By: Misti Toro on 17-64-6026Uhrj binding capacity [Mass/Vol]344 ug/pH131-041LcniemoynUniversity Hospitals Ahuja Medical CenterIron saturation [Mass Fraction] in Serum or PlasmaOrdered By: Misti Toro on 50-65-2644Trdk saturation [Mass fraction]19.2 %20-50[facility] CenterLeukocytes [#/volume] corrected for nucleated erythrocytes in Blood by Automated counOrdered By: Misti Toro on 03-17-2023 WBC corrected for nucl RBC Auto (Bld) [#/Vol]11.5 10*3/uL3.8-11.6FProtestant Deaconess HospitalLymphocytes Auto (Bld) [#/Vol]Ordered By: Misti Toro on 04-07-3767Kjhxtasetfg (Bld) [#/Vol]3.0 10*3/uL1.00-4.8[facility] Medical CenterLymphocytes/100 WBC Auto (Bld)Ordered By: Misti Toro on 85-54-4255Usrgvkkjmpu/100 WBC (Bld)26.3 %.[facility] Auto (RBC) [Entitic mass]Ordered By: Misti Toro on 00-32-7357YFU (RBC) [Entitic mass]31.0 pg24.7-34.3FRegency Hospital CompanyHC Auto (RBC) [Mass/Vol]Ordered By: Misti Toro on 83-87-1694BYSA (RBC) [Mass/Vol]33.2 g/dL 32.0-35.0[facility] CenterMCV Auto (RBC) [Entitic vol]Ordered By: Misti Toro on 16-33-7672TSX (RBC) [Entitic vol]93.2 dC25-481KxqdlamdoUniversity Hospitals Ahuja Medical CenterMonocytes Auto (Bld) [#/Vol]Ordered By: Misti Toro on 60-48-4453Poiafcwpy (Bld) [#/Vol]0.7 10*3/uL0.0-0.8[facility] CenterMonocytes/100 WBC Auto (Bld)Ordered By: Misti Toro on 03-17-2023 Monocytes/100 WBC (Bld)6.2 %.[facility] Medical CenterNeutrophils Auto (Bld) [#/Vol]Ordered By: Misti Toro on 91-51-9831Jdngmzpfmop (Bld) [#/Vol]7.4 10*3/uL1.8-7.7FProtestant Deaconess HospitalNeutrophils/100 WBC Auto (Bld) Ordered By: Misti Toro on 71-46-2051Fbhcaxsskys/100 WBC (Bld)64.5 %.[facility] CenterNo Panel InformationOrdered By: Misti Toro on 66-79-6773EVA/ablSee [facility]erm[facility] HospitalComment on above: See report. Scanned copy available in EMR.[id number] [facility] HospitalComment on above:See report. Scanned copy available in EMR.Nucleated erythrocytes [Presence] in Blood by Automated countOrdered By: Misti Toro on 44-46-9323Dugacruxx RBC Auto Ql (Bld)0.0 /100{WBC}0-0.5 [facility] Medical CenterPlatelet mean volume Auto (Bld) [Entitic vol] Ordered By: Misti Toro on 53-19-4449Onohnelr mean volume (Bld) [Entitic vol] 6.8 fL6.3-10.7FProtestant Deaconess HospitalPlatelets Auto (Bld) [#/Vol] Ordered By: Misti Toro on 71-75-1829Sbnbdnlza (Bld) [#/Vol]368 10*3/rE933-324 [facility] CenterRBC Auto (Bld) [#/Vol]Ordered By: Misti Toro on 59-81-1907HUY (Bld) [#/Vol]5.00 10*6/uL3.60-5.00[facility] Medical CenterTransferrin [Mass/volume] in Serum or PlasmaOrdered By: Misti Muna on 70-14-8648Laxpynkjjhz [Mass/Vol]246 mg/xG022-766VvpgdfwsuUniversity Hospitals Ahuja Medical CenterWBC Auto (Bld) [#/Vol]Ordered By: Misti Muna on 68-30-4480CLQ (Bld) [#/Vol]11.5 10*3/uL3.8-11.6FProtestant Deaconess HospitalGlucose Glucometer (BldC) [Mass/Vol]Ordered By: AUTUMN Torres on 12-94-5794Pzgurpg [Mass/Vol] 65 mg/dLUniversity Hospitals Ahuja Medical CenterComment on above:Random Glucose Reference Range is dependent on time and content of last meal. Glucose of more than 200 mg/dL in a nonstressed, ambulatory subject supports the diagnosis of Diabetes Mellitus.No Panel InformationOrdered By: AUTUMN Torres on 36-80-8335Wfbvxkz Glucose CommentGlu2: cleaned meterUniversity Hospitals Ahuja Medical CenterCalcium [Mass/volume] in Serum or PlasmaOrdered By: Rolando Sykes on 10-08-8420Oybyqji [Mass/Vol]8.3 mg/dL8.6-10.3FProtestant Deaconess Hospital Carbon dioxide, total [Moles/volume] in Serum or PlasmaOrdered By: Rolando Sykes on 36-87-8791BE6 [Moles/Vol]30.7 mmol/L21.0-31.0[facility] CenterChloride [Moles/volume] in Serum or PlasmaOrdered By: Rolando Sykes on 55-71-9688Xkjpsrve [Moles/Vol]106 mmol/E51-216ZlfqnadwmUniversity Hospitals Ahuja Medical Center Creatinine [Mass/volume] in Serum or PlasmaOrdered By: Rolando Sykes on 79-53-7605Mnqmgsrmho [Mass/Vol]0.89 mg/dL0.60-1.20[facility] Medical CenterGlucose [Mass/volume] in Serum or PlasmaOrdered By: Rolando Sykes on 22-88-2859Rflrmkh [Mass/Vol]67 mg/rI49-105JaybwvbdaUniversity Hospitals Ahuja Medical Center Comment on above:ADA recommended reference rangeRandom Glucose Reference Range is dependent on time and content of last meal. Glucose of more than 200 mg/dL in a nonstressed, ambulatory subject supports the diagnosisof Diabetes Mellitus.No Panel InformationOrdered By: Rolando Sykes on 55-29-2520Tvnawwcai GFR (CKD-EPI) > 60.0 mL/MinUniversity Hospitals Ahuja Medical CenterPharmacy Creatinine Clearance (ChemN/AFProtestant Deaconess HospitalPotassium [Moles/volume] in Serum or PlasmaOrdered By: Rolando Sykes on 43-01-4789Mdnuaanxx [Moles/Vol]4.2 mmol/L 3.5-5.1FHolzer Medical Center – Jacksonerum or plasma anion gap determination Ordered By: Rolando Sykes on 46-54-2410Tedyt gap [Moles/Vol]8.5 mmol/L6.0-15.0 [facility] Hospitalerum or plasma trough vancomycin levelOrdered By: Zaid Mon on 50-67-1019Wwhqhobyrd trough [Mass/Vol]17.9 ug/mL 10.0-20.0[facility] CenterComment on above:Last dose: -Sodium [Moles/volume] in Serum or PlasmaOrdered By: Rolando Sykes on 04-01-3122Herqfm [Moles/Vol]141 mmol/Q825-483WzysvcvtlUniversity Hospitals Ahuja Medical CenterUrea nitrogen [Mass/volume] in Serum or PlasmaOrdered By: Rolando Sykes on 74-85-7228Bagw nitrogen [Mass/Vol]10 mg/dL7-25[facility] CenterBasophils Auto (Bld) [#/Vol]Ordered By: [facility] on 14-69-6187Hgofuklqs (Bld) [#/Vol]0.1 10*3/uL0.0-0.2FProtestant Deaconess HospitalBasophils/100 WBC Auto (Bld) Ordered By: [facility] on 61-41-7677Bnjibalim/100 WBC (Bld)0.8 %.[facility] CenterCalcium [Mass/volume] in Serum or PlasmaOrdered By: [facility] on 99-89-1227Zcaucaj [Mass/Vol]8.7 mg/dL8.6-10.3FProtestant Deaconess HospitalCarbon dioxide, total [Moles/volume] in Serum or PlasmaOrdered By: [facility] on 43-92-8092VA8 [Moles/Vol]30.1 mmol/L21.0-31.0[facility] CenterChloride [Moles/volume] in Serum or PlasmaOrdered By: [facility] on 79-13-8212Vmcfhdst [Moles/Vol]101 mmol/Q59-907HgaqtbndrUniversity Hospitals Ahuja Medical CenterCreatinine [Mass/volume] in Serum or PlasmaOrdered By: [facility] on 12-77-1571Uerzxnfqah [Mass/Vol]0.98 mg/dL0.60-1.20[facility] CenterEosinophils Auto (Bld) [#/Vol]Ordered By: [facility] on 95-59-2550Qhbpnmgscjb (Bld) [#/Vol]0.4 10*3/uL0.0-0.45[facility] CenterEosinophils/100 WBC Auto (Bld)Ordered By: [facility] on 55-63-0489Pxbnncorwpd/100 WBC (Bld)3.0 %.[facility] Erythrocyte distribution width Auto (RBC) [Ratio]Ordered By: [facility] on 57-96-0790Qomffoxwrjc distribution width (RBC) [Ratio]13.9 %11.9-15.3FProtestant Deaconess HospitalGlucose Glucometer (BldC) [Mass/Vol]Ordered By: Ryland Liu on 74-79-2349Dcyslqu [Mass/Vol]124 mg/dLUniversity [facility]ja Medical CenterComment on above:Random Glucose Reference Range is dependent on time and content of last meal. Glucose of more than 200 mg/dL in a nonstressed, ambulatory subject supports the diagnosis of Diabetes Mellitus.Glucose [Mass/volume] in Serum or PlasmaOrdered By: [facility] on 89-60-2774Eydfild [Mass/Vol]153 mg/fK47-666UovxgbkhoUniversity Hospitals Ahuja Medical CenterComment on above:ADA recommended reference rangeRandom Glucose Reference Range is dependent on time and content of last meal. Glucose of more than 200 mg/dL in a nonstressed, ambulatory subject supports the diagnosisof Diabetes Mellitus.Hematocrit Auto (Bld) [Volume fraction]Ordered By: Casa BoltonGivens on 08-13-8410Svqvvrcbwe (Bld) [Volume fraction]41.9 %34.0-46.4FProtestant Deaconess HospitalHemoglobin [Mass/volume] in BloodOrdered By: Casa BoltonGivens on 07-73-5737Dloqemydzy (Bld) [Mass/Vol]13.6 g/dL11.8-15.4FProtestant Deaconess HospitalLeukocytes [#/volume] corrected for nucleated erythrocytes in Blood by Automated coun Ordered By: Casa BoltonGivens on 06-72-2634UVC corrected for nucl RBC Auto (Bld) [#/Vol]13.0 10*3/uL3.8-11.6FProtestant Deaconess HospitalLymphocytes Auto (Bld) [#/Vol]Ordered By: Casa BoltonGivens on 17-53-8462Jshhtacnfma (Bld) [#/Vol] 2.4 10*3/uL1.00-4.8[facility] CenterLymphocytes/100 WBC Auto (Bld)Ordered By: Casa Wilmore on 34-31-8361Mswriihtzsm/100 WBC (Bld)18.5 %. [facility]H Auto (RBC) [Entitic mass]Ordered By: Casa Givens on 04-95-3311SSR (RBC) [Entitic mass]30.7 pg24.7-34.3FProtestant Deaconess HospitalMCHC Auto (RBC) [Mass/Vol]Ordered By: Casa Givens on 75-18-4931WCPV (RBC) [Mass/Vol]32.5 g/dL32.0-35.0[facility] CenterMCV Auto (RBC) [Entitic vol]Ordered By: Casa Givens on 50-54-9104BIR (RBC) [Entitic vol]94.4 kB84-405TaskkkiglUniversity Hospitals Ahuja Medical CenterMonocytes Auto (Bld) [#/Vol]Ordered By: Casa Givens on 64-51-9162Fqzanfqmn (Bld) [#/Vol]0.9 10*3/uL0.0-0.8[facility] CenterMonocytes/100 WBC Auto (Bld) Ordered By: Casa Wilmore on 79-82-6162Ecgafcnun/100 WBC (Bld)7.3 %.[facility] Medical CenterNeutrophils Auto (Bld) [#/Vol]Ordered By: Casa Wilmore on 53-97-7360Dhslsjzxvto (Bld) [#/Vol]9.1 10*3/uL1.8-7.7FProtestant Deaconess HospitalNeutrophils/100 WBC Auto (Bld)Ordered By: Casa Wilmore on 02-30-1704Yirlpaorkcm/100 WBC (Bld)70.4 %.[facility] CenterNo Panel InformationOrdered By: Ryland Liu on 85-31-1237Ppjkgiu Glucose CommentGlu2: cleaned meterUniversity Hospitals Ahuja Medical CenterNo Panel Information Ordered By: [facility] on 80-42-4785Ijqlpjgfr GFR (CKD-EPI)> 60.0 mL/Min [facility] CenterPharmacy Creatinine Clearance (Chem79.39 [facility] CenterNucleated erythrocytes [Presence] in Blood by Automated countOrdered By: Casa Wilmore on 58-47-1571Vctaysrje RBC Auto Ql (Bld)0.1 /100{WBC}0-0.5FProtestant Deaconess HospitalPlatelet mean volume Auto (Bld) [Entitic vol]Ordered By: [facility] on 71-98-2922Qgagnbty mean volume (Bld) [Entitic vol]7.3 fL6.3-10.7FProtestant Deaconess Hospital Platelets Auto (Bld) [#/Vol]Ordered By: Casa Wilmore on 24-97-2646Uryvbuifr (Bld) [#/Vol]262 10*3/bB043-814XmrorvrvwUniversity Hospitals Ahuja Medical CenterPotassium [Moles/volume] in Serum or PlasmaOrdered By: Casa Wilmore on 02-02-2023 Potassium [Moles/Vol]3.6 mmol/L3.5-5.1FProtestant Deaconess HospitalRBC Auto (Bld) [#/Vol]Ordered By: Casa BoltonGivens on 49-77-1239MQI (Bld) [#/Vol]4.44 10*6/uL3.60-5.00Samaritan Hospitalerum or plasma anion gap determinationOrdered By: Casa Wilmore on 90-31-1361Cksda gap [Moles/Vol]11.5 mmol/L6.0-15.0[facility]itan Hospitalerum or plasma trough vancomycin levelOrdered By: Casa Wilmore on 74-77-0786Zmpwjtrmpr trough [Mass/Vol]15.7 ug/mL10.0-20.0[facility] Medical CenterComment on above:Last dose: - Sodium [Moles/volume] in Serum or PlasmaOrdered By: [facility] on 02-02-2023 Sodium [Moles/Vol]139 mmol/D356-605UsqakfivwUniversity Hospitals Ahuja Medical CenterUrea nitrogen [Mass/volume] in Serum or PlasmaOrdered By: [facility] on 61-24-9181Tkmu nitrogen [Mass/Vol]8 mg/dL7-25[facility] WBC Auto (Bld) [#/Vol]Ordered By: Casa Wilmore on 84-51-4370VDE (Bld) [#/Vol] 13.0 10*3/uL3.8-11.6FProtestant Deaconess HospitalAerobic cultureOrdered By: [facility] Ayan Lakehal on 90-07-8618Gyjmwkgn identified Aer cx Nom (Unsp spec)No Growth 2 [facility] RehabilitationAnaerobic cultureOrdered By: [facility] Ayan Lakehal on 51-56-7642Htisqgnp identified Anaer cx Nom (Unsp spec)No Anaerobes Isolated 3 [facility] for RehabilitationClostridioides difficile toxin B tcdB gene [Presence] in Stool by NADINE with probe deteOrdered By: Adithya Rm on 02-01-2023. difficile toxin B tcdB gene NADINE+probe Ql (Stl)NegativeNegativeUniversity Hospitals Ahuja Medical CenterComment on above: Testing performed by RT-PCRGram stain for investigation of transfusion reaction Ordered By: [facility] Ayan Lakehal on 29-75-3640Oejomowkaiw observation Gram stain Nom (Unsp spec)[facility] CenterMicroscopic observation Gram stain Nom (Unsp spec)No Anaerobes Isolated 3 [facility] RehabilitationVancomycin [Mass/volume] in Serum or Plasma --peakOrdered By: Casa Givens on 30-53-0992Qiijnvrxxa peak [Mass/Vol]25.9 ug/mL20.0-40.0[facility] CenterComment on above:Last dose: -Bacteria identified Aer cx Nom (Unsp spec)Ordered By: AUTUMN Deluna on 56-50-3248Blhdtghrzpz Wound CultureCorynebacterium striatum groupUniversity Hospitals Ahuja Medical CenterAlanine aminotransferase [Enzymatic activity/volume] in Serum or PlasmaOrdered By: Chino Peraza on 19-02-7402PID [Catalytic activity/Vol]10 U/L7-52[facility] CenterAlbumin [Mass/volume] in Serum or Plasma by Bromocresol green (BCG) dye binding methoOrdered By: Chino Peraza on 30-21-0377Emigryc BCG dye [Mass/Vol]3.9 g/dL3.5-5.7FProtestant Deaconess HospitalAlkaline phosphatase [Enzymatic activity/volume] in Serum or PlasmaOrdered By: Chino Peraza on 68-72-8928RKO [Catalytic activity/Vol]73 U/D52-263FnsiophwsUniversity Hospitals Ahuja Medical CenterAspartate aminotransferase [Enzymatic activity/volume] in Serum or PlasmaOrdered By: Chino Peraza on 57-14-1078LWL [Catalytic activity/Vol]17 U/L 13-39[facility] CenterBacterial blood cultureOrdered By: Chino Peraza on 48-90-3463Zzhfvscr identified Cx Nom (Bld)NO GROWTH 5 DAYSUniversity Hospitals Ahuja Medical CenterBacteria identified Cx Nom (Bld)NO GROWTH 5 DAYSUniversity Hospitals Ahuja Medical CenterBasophils Auto (Bld) [#/Vol]Ordered By: Chino Peraza on 07-56-3044Frsiipzch (Bld) [#/Vol]0.2 10*3/uL0.0-0.2FProtestant Deaconess HospitalBasophils/100 WBC Auto (Bld)Ordered By: Chino Peraza on 01-28-2023 Basophils/100 WBC (Bld)1.3 %.[facility] CenterBilirubin.total [Mass/volume] in Serum or PlasmaOrdered By: Chino Peraza on 23-04-1490Qhmerzopy [Mass/Vol]0.5 mg/dL0.3-1.0[facility] CenterC reactive protein [Mass/volume] in Serum or PlasmaOrdered By: Chino Peraza on 29-18-2259FAK [Mass/Vol]0.5 mg/dL0.0-0.5FProtestant Deaconess HospitalCalcium [Mass/volume] in Serum or PlasmaOrdered By: Chino Peraza on 96-33-5801Mjopeng [Mass/Vol]9.1 mg/dL8.6-10.3FProtestant Deaconess HospitalCarbon dioxide, total [Moles/volume] in Serum or PlasmaOrdered By: Chino Peraza on 59-13-7197JI2 [Moles/Vol]31.9 mmol/L21.0-31.0[facility] CenterChloride [Moles/volume] in Serum or PlasmaOrdered By: Chino Peraza 34-67-4625Mxaxqvfl [Moles/Vol]103 mmol/U30-796WemckdezqUniversity Hospitals Ahuja Medical CenterCreatinine [Mass/volume] in Serum or PlasmaOrdered By: Chino Peraza 49-67-7992Cbcrihkrja [Mass/Vol]0.87 mg/dL0.60-1.20[facility] CenterEosinophils Auto (Bld) [#/Vol]Ordered By: Chino Peraza 23-47-4605Npjjueikutl (Bld) [#/Vol]0.1 10*3/uL0.0-0.45[facility] CenterEosinophils/100 WBC Auto (Bld) Ordered By: Chino Peraza on 84-18-5384Tfbvudrzais/100 WBC (Bld)0.4 %.[facility] CenterErythrocyte distribution width Auto (RBC) [Ratio]Ordered By: Chino Peraza on 14-57-0044Unglfarupwh distribution width (RBC) [Ratio]14.3 % 11.9-15.3FProtestant Deaconess HospitalErythrocyte sedimentation rate by Photometric methodOrdered By: Chino Peraza on 11-99-6429ZDC Photometric method (Bld) [Velocity]30 mm/hr0-29[facility] Medical CenterGlobulin Calc (S) [Mass/Vol]Ordered By: Chino Peraza on 59-75-2035Pjajasup (S) [Mass/Vol]3.4 g/dL [facility] CenterGlucose [Mass/volume] in Serum or PlasmaOrdered By: Chino Peraza on 70-69-0975Uwmmlrf [Mass/Vol]98 mg/hW57-132AlhdzreroUniversity Hospitals Ahuja Medical CenterComment on above:ADA recommended reference rangeRandom Glucose Reference Range is dependent on time and content of last meal. Glucose of more than 200 mg/dL in a nonstressed, ambulatory subject supports the diagnosisof Diabetes Mellitus.Hematocrit Auto (Bld) [Volume fraction]Ordered By: Chino Peraza on 57-31-6595Taezftoqmj (Bld) [Volume fraction]49.8 %34.0-46.4 [facility] CenterHemoglobin [Mass/volume] in BloodOrdered By: Chino Peraza on 40-16-1621Snuaiathwe (Bld) [Mass/Vol]16.6 g/dL11.8-15.4FProtestant Deaconess HospitalLactate [Moles/volume] in Serum or PlasmaOrdered By: Chino Peraza on 62-68-5874Gnwkjtu [Moles/Vol]0.9 mmol/L0.5-2.2FProtestant Deaconess HospitalLeukocytes [#/volume] corrected for nucleated erythrocytes in Blood by Automated counOrdered By: Chino Peraza on 91-37-6042NKO corrected for nucl RBC Auto (Bld) [#/Vol]12.9 10*3/uL3.8-11.6FProtestant Deaconess Hospital Lymphocytes Auto (Bld) [#/Vol]Ordered By: Chino Peraza on 33-56-2540Zvvobmegbqv (Bld) [#/Vol]2.5 10*3/uL1.00-4.8[facility] Medical CenterLymphocytes/100 WBC Auto (Bld)Ordered By: Chino Peraza on 77-97-3993Ugyqtxmbcoo/100 WBC (Bld) 19.7 %.[facility] CenterMCH Auto (RBC) [Entitic mass]Ordered By: Chino Peraza on 70-71-1276CXG (RBC) [Entitic mass]31.3 pg24.7-34.3FProtestant Deaconess HospitalMCHC Auto (RBC) [Mass/Vol]Ordered By: Chino Peraza on 66-82-6016OSJK (RBC) [Mass/Vol]33.3 g/dL32.0-35.0[facility] CenterMCV Auto (RBC) [Entitic vol]Ordered By: Chino Peraza on 22-51-6837SCS (RBC) [Entitic vol]94.0 kE50-838BjfmopiatUniversity Hospitals Ahuja Medical CenterMonocyte distribution width [Entitic volume] in Blood by AutomatedOrdered By: Chino Peraza on 99-15-7477Uwqrajrz distribution width Auto (Bld) [Entitic vol]20.03 % 0.00-20.00[facility] Medical CenterComment on above:For adults in ED, MDW > 20.0 may be associated with a higher risk of sepsis during the first 12 h rs of hospital admissionMonocytes Auto (Bld) [#/Vol]Ordered By: Chino Peraza on 84-61-6250Xlchkgxfl (Bld) [#/Vol]0.6 10*3/uL0.0-0.8[facility] CenterMonocytes/100 WBC Auto (Bld)Ordered By: Chino Peraza on 01-28-2023 Monocytes/100 WBC (Bld)5.0 %.[facility] Medical CenterNeutrophils Auto (Bld) [#/Vol]Ordered By: Chino Peraza on 27-26-0280Cohloxxteiq (Bld) [#/Vol]9.5 10*3/uL1.8-7.7FProtestant Deaconess HospitalNeutrophils/100 WBC Auto (Bld) Ordered By: Chino Peraza on 01-07-4167Bcfqdrmomxu/100 WBC (Bld)73.6 %.[facility] CenterNo Panel InformationOrdered By: Chino Peraza on 91-63-4172Odxtdogfn GFR (CKD-EPI)> 60.0 mL/MinUniversity Hospitals Ahuja Medical Center Pharmacy Creatinine Clearance (Chem85.52[facility] Nucleated erythrocytes [Presence] in Blood by Automated countOrdered By: Chino Peraza on 04-64-8395Nmnbsblyg RBC Auto Ql (Bld)0.1 /100{WBC}0-0.5FProtestant Deaconess HospitalPlatelet mean volume Auto (Bld) [Entitic vol]Ordered By: Chino Peraza on 72-42-4429Rqirbeje mean volume (Bld) [Entitic vol]7.0 fL6.3-10.7 [facility] CenterPlatelets Auto (Bld) [#/Vol]Ordered By: Chino Peraza on 29-00-1797Ltlpsteho (Bld) [#/Vol]315 10*3/rJ805-392QfoknerhkUniversity Hospitals Ahuja Medical CenterPotassium [Moles/volume] in Serum or PlasmaOrdered By: Chino Peraza on 54-57-3952Oovqjjngt [Moles/Vol]4.3 mmol/L3.5-5.1FProtestant Deaconess HospitalProtein [Mass/volume] in Serum or PlasmaOrdered By: Chino Peraza on 92-31-1017Pwfovup [Mass/Vol]7.3 g/dL6.4-8.9[facility] RBC Auto (Bld) [#/Vol]Ordered By: Chino Peraza on 38-17-0413HFI (Bld) [#/Vol] 5.30 10*6/uL3.60-5.00[facility] Hospitalerum or plasma albumin/globulin mass ratioOrdered By: Chino Peraza on 01-28-2023 Albumin/Globulin [Mass ratio]1.1 {ratio}[facility] Hospitalerum or plasma anion gap determinationOrdered By: Chino Peraza on 58-28-9936Xztre gap [Moles/Vol]8.4 mmol/L6.0-15.0[facility] Hospitalodium [Moles/volume] in Serum or PlasmaOrdered By: Chino Peraza on 25-10-3741Jdvplr [Moles/Vol]139 mmol/C725-534XagkinvfaUniversity Hospitals Ahuja Medical CenterUrea nitrogen [Mass/volume] in Serum or PlasmaOrdered By: Chino Peraza on 09-34-0686Kkql nitrogen [Mass/Vol]11 mg/dL7-25[facility] CenterWBC Auto (Bld) [#/Vol]Ordered By: Chino Karmen on 26-14-7647SHT (Bld) [#/Vol]12.9 10*3/uL 3.8-11.6FProtestant Deaconess HospitalGlucose Glucometer (BldC) [Mass/Vol] Ordered By: AUTUMN Torres on 64-13-4227Skxycmv [Mass/Vol]61 mg/dLUniversity Hospitals Ahuja Medical CenterComment on above:Random Glucose Reference Range is dependent on time and content of last meal. Glucose of more than 200 mg/dL in a nonstressed, ambulatory subject supports the diagnosis of Diabetes Mellitus.No Panel InformationOrdered By: AUTUMN Torres on 73-20-0451Dqiwlde Glucose CommentGlu2: cleaned meterUniversity Hospitals Ahuja Medical CenterBasophils Auto (Bld) [#/Vol]Ordered By: Candace Lombardo-Shadi on 59-58-9659Byefmemxg (Bld) [#/Vol] 0.1 10*3/uL0.0-0.2FProtestant Deaconess HospitalBasophils/100 WBC Auto (Bld) Ordered By: Candace Grupo-Shadi on 28-35-3195Bzrpsajwe/100 WBC (Bld)0.7 %. [facility] CenterCalcium [Mass/volume] in Serum or PlasmaOrdered By: AUTUMN Torres on 51-88-9920Oamepen [Mass/Vol]8.9 mg/dL8.6-10.3 [facility] CenterCarbon dioxide, total [Moles/volume] in Serum or PlasmaOrdered By: AUTUMN Torres on 62-67-8439SN1 [Moles/Vol]32.3 mmol/L 21.0-31.0[facility] CenterChloride [Moles/volume] in Serum or PlasmaOrdered By: AUTUMN Torres on 05-25-3072Qlhaveyn [Moles/Vol]102 mmol/V09-687NthjjrpdvUniversity Hospitals Ahuja Medical CenterCreatinine [Mass/volume] in Serum or PlasmaOrdered By: AUTUMN Torres on 16-43-2280Lcremiegau [Mass/Vol]1.02 mg/dL0.60-1.20[facility] CenterEosinophils Auto (Bld) [#/Vol] Ordered By: Candace George on 85-33-2040Dtefxmjcbmd (Bld) [#/Vol]0.2 10*3/uL0.0-0.45[facility] CenterEosinophils/100 WBC Auto (Bld) Ordered By: Candace George on 27-02-0989Okvayfqabum/100 WBC (Bld)1.2 %. [facility] CenterErythrocyte distribution width Auto (RBC) [Ratio]Ordered By: Candace George on 35-55-4991Jbmvdmjqdmx distribution width (RBC) [Ratio]14.8 %11.9-15.3FProtestant Deaconess HospitalGlucose [Mass/volume] in Serum or PlasmaOrdered By: AUTUMN Torres on 10-16-2022 Glucose [Mass/Vol]97 mg/oQ86-738UbyxkujvfUniversity Hospitals Ahuja Medical CenterComment on above:ADA recommended reference rangeRandom Glucose Reference Range is dependent on time and content of last meal. Glucose of more than 200 mg/dL in a nonstressed, ambulatory subject supports the diagnosisof Diabetes Mellitus. Hematocrit Auto (Bld) [Volume fraction]Ordered By: Candace George on 54-58-7663Edkwmvybyt (Bld) [Volume fraction]47.5 %34.0-46.4FProtestant Deaconess HospitalHemoglobin [Mass/volume] in BloodOrdered By: Candace Hsu on 71-23-6073Ttvzjsoosu (Bld) [Mass/Vol]15.7 g/dL11.8-15.4FProtestant Deaconess HospitalLeukocytes [#/volume] corrected for nucleated erythrocytes in Blood by Automated counOrdered By: Candace George on 09-49-8844PHZ corrected for nucl RBC Auto (Bld) [#/Vol]16.0 10*3/uL3.8-11.6 [facility] CenterLymphocytes Auto (Bld) [#/Vol]Ordered By: Candace George on 56-44-3047Axdoultnkub (Bld) [#/Vol]2.6 10*3/uL 1.00-4.8[facility] Medical CenterLymphocytes/100 WBC Auto (Bld)Ordered By: Candace Lombardo-Shadi on 76-75-0456Iealmctqwkt/100 WBC (Bld)16.5 %. [facility] CenterH Auto (RBC) [Entitic mass]Ordered By: Candace Lombardo-Shadi on 87-20-9769YDN (RBC) [Entitic mass]31.7 pg24.7-34.3 [facility] CenterMCHC Auto (RBC) [Mass/Vol]Ordered By: Candace Lombardo-Shadi on 92-73-6565FRZZ (RBC) [Mass/Vol]33.1 g/dL32.0-35.0[facility] CenterMCV Auto (RBC) [Entitic vol]Ordered By: Candace Lombardo- Shadi on 97-26-7376WDF (RBC) [Entitic vol]95.8 nP84-844TrzqebdquUniversity Hospitals Ahuja Medical CenterMonocytes Auto (Bld) [#/Vol]Ordered By: Candace Lombardo-Shadi on 75-01-1331Drrokueqc (Bld) [#/Vol]0.8 10*3/uL0.0-0.8[facility] CenterMonocytes/100 WBC Auto (Bld)Ordered By: Candace Lombardo-Shadi on 23-33-9223Bgsntsspa/100 WBC (Bld)4.9 %.[facility] Neutrophils Auto (Bld) [#/Vol]Ordered By: Candace Grupo-Shadi on 10-16-2022 Neutrophils (Bld) [#/Vol]12.3 10*3/uL1.8-7.7FProtestant Deaconess Hospital Neutrophils/100 WBC Auto (Bld)Ordered By: Candace Grupo-Shadi on 10-16-2022 Neutrophils/100 WBC (Bld)76.7 %.[facility] CenterNo Panel InformationOrdered By: AUTUMN Torres on 16-97-6508Gujfuvbex GFR (CKD-EPI)> 60.0 mL/MinUniversity Hospitals Ahuja Medical CenterPharmacy Creatinine Clearance (Chem N/AFProtestant Deaconess HospitalNucleated erythrocytes [Presence] in Blood by Automated countOrdered By: Candace George on 13-10-4998Faviqgwwk RBC Auto Ql (Bld)0.0 /100{WBC}0-0.5FProtestant Deaconess Hospital Parathyrin.intact [Mass/volume] in Serum or PlasmaOrdered By: Candace Hsu on 19-03-6857Trakgupejj.intact [Mass/Vol]66.8 pg/aI13-15KmvmefqwnUniversity Hospitals Ahuja Medical CenterPlatelet mean volume Auto (Bld) [Entitic vol]Ordered By: Candace George on 15-14-6537Hjwkuahp mean volume (Bld) [Entitic vol]7.2 fL6.3-10.7FProtestant Deaconess HospitalPlatelets Auto (Bld) [#/Vol]Ordered By: Candace George on 61-15-2276Phmjcroxr (Bld) [#/Vol]301 10*3/uL 150-450[facility] CenterPotassium [Moles/volume] in Serum or PlasmaOrdered By: AUTUMN Torres on 43-37-2693Kpherycgb [Moles/Vol]4.8 mmol/L3.5-5.1FProtestant Deaconess HospitalRBC Auto (Bld) [#/Vol]Ordered By: Candace George on 11-01-9319JZX (Bld) [#/Vol]4.96 10*6/uL3.60-5.00 [facility] Hospitalerum or plasma anion gap determinationOrdered By: AUTUMN Torres on 82-43-0653Wfxea gap [Moles/Vol]10.5 mmol/L6.0-15.0 [facility] Hospitalerum or plasma erythropoietin (EPO) measurement (units/volume)Ordered By: Candace George on 10-16-2022 Erythropoietin (EPO) Qn72.0 mIU/mL2.6-18.5FProtestant Deaconess Hospital Comment on above:[place] [employer] DxI 800 Immunoassay SystemValues obtained with different assay methods or kits cannotbe used interchangeably. Results cannot be interpreted asabsolute evidence of the presence or absence of malignantdisease.Performed at: [employer] [address] [id number] Director: Donny Cary PhD, Phone: [phone] [Moles/volume] in Serum or PlasmaOrdered By: AUTUMN Torres on 10-16-2022 Sodium [Moles/Vol]140 mmol/S750-597SdhxkmdcwUniversity Hospitals Ahuja Medical CenterThyrotropin [Units/volume] in Serum or PlasmaOrdered By: Candace George on 61-78-8391VPU Qn3.70 m[IU]/L0.45-5.33[facility] CenterUrea nitrogen [Mass/volume] in Serum or PlasmaOrdered By: AUTUMN Torres on 17-29-7000Gezu nitrogen [Mass/Vol]19 mg/dL7-25[facility] Vitamin D+Metabolites [Mass/volume] in Serum or PlasmaOrdered By: Candace George on 65-45-3109Iktytkf D+Metabolites [Mass/Vol]21.1 ng/sW21-613 [facility] CenterComment on above:VITAMIN D STATUS 25(OH)VITAMIN D RANGE (ng/mL) Deficient <20 Insufficient 20 to <41Ahmkzhpomj10 to 100Reference: Frances MF,[place], Bipin HANSON, et al. Evaluation,treatment, and prevention of vitamin D deficiency; an Endocrine Society clinical practice guideline. JCEM. 2010; 96(7):1911-30.WBC Auto (Bld) [#/Vol]Ordered By: Candace George on 71-56-4835ZMT (Bld) [#/Vol] 16.0 10*3/uL3.8-11.6FProtestant Deaconess HospitalAerobic cultureOrdered By: AUTUMN Torres on 38-33-7598Gsnoqnph identified Aer cx Nom (Unsp spec) [facility] CenterGlucose Glucometer (BldC) [Mass/Vol]Ordered By: AUTUMN Torres on 82-28-3161Odkclkr [Mass/Vol]77 mg/dLUniversity Hospitals Ahuja Medical CenterComment on above:Random Glucose Reference Range is dependent on time and content of last meal. Glucose of more than 200 mg/dL in a nonstressed, ambulatory subject supports the diagnosis of Diabetes Mellitus.Aerobic culture Ordered By: Zaidtalisha Mon on 33-87-2181Oohaterh identified Aer cx Nom (Unsp spec)2 DaysUniversity Hospitals Ahuja Medical CenterAnaerobic cultureOrdered By: Zaid Yaa on 21-64-2334Raotqpds identified Anaer cx Nom (Unsp spec)No Anaerobes Isolated 3 DaysUniversity Hospitals Ahuja Medical CenterBasophils Auto (Bld) [#/Vol]Ordered By: AUTUMN Torres on 80-82-5896Lkvrkksvt (Bld) [#/Vol]0.1 10*3/uL0.0-0.2FProtestant Deaconess HospitalBasophils/100 WBC Auto (Bld) Ordered By: AUTUMN Torres on 46-46-3187Vwbzynjzk/100 WBC (Bld)0.7 %. [facility] CenterCalcium [Mass/volume] in Serum or PlasmaOrdered By: Thanh Torres on 69-16-8564Bxjdfck [Mass/Vol]8.3 mg/dL8.6-10.3 [facility] CenterCarbon dioxide, total [Moles/volume] in Serum or PlasmaOrdered By: Thanh Torres on 80-02-6010AA6 [Moles/Vol]32.5 mmol/L 21.0-31.0[facility] CenterChloride [Moles/volume] in Serum or PlasmaOrdered By: Thanh Torres on 94-32-7701Todsmlch [Moles/Vol]103 mmol/A85-322MwxusfbaaUniversity Hospitals Ahuja Medical CenterCreatinine [Mass/volume] in Serum or PlasmaOrdered By: AUTUMN Torres on 67-08-6407Utggellbgq [Mass/Vol]1.06 mg/dL0.60-1.20[facility] CenterEosinophils Auto (Bld) [#/Vol] Ordered By: AUTUMN Torres on 05-24-1124Yjkjcnjbtql (Bld) [#/Vol]0.2 10*3/uL0.0-0.45[facility] CenterEosinophils/100 WBC Auto (Bld) Ordered By: Thanh Torres on 83-57-3078Goetsmfydgd/100 WBC (Bld)1.8 %. [facility] CenterErythrocyte distribution width Auto (RBC) [Ratio]Ordered By: Thanh Torres on 70-72-0749Tdtvasswbkb distribution width (RBC) [Ratio]14.5 %11.9-15.3FProtestant Deaconess HospitalGlucose [Mass/volume] in Serum or PlasmaOrdered By: Thanh Torres on 08-20-2022 Glucose [Mass/Vol]75 mg/sF55-345LbmqghvitUniversity Hospitals Ahuja Medical CenterComment on above:ADA recommended reference rangeRandom Glucose Reference Range is dependent on time and content of last meal. Glucose of more than 200 mg/dL in a nonstressed, ambulatory subject supports the diagnosisof Diabetes Mellitus.Gram stain for investigation of transfusion reactionOrdered By: Zaid Mon on [id number] observation Gram stain Nom (Unsp spec)[facility] CenterHematocrit Auto (Bld) [Volume fraction]Ordered By: Thanh Torres on [id number] (Bld) [Volume fraction]46.1 %34.0-46.4FProtestant Deaconess HospitalHemoglobin [Mass/volume] in BloodOrdered By: Thanh Torres on [id number] (Bld) [Mass/Vol]15.4 g/dL11.8-15.4FProtestant Deaconess HospitalLeukocytes [#/volume] corrected for nucleated erythrocytes in Blood by Automated counOrdered By: Thanh Torres on [id number] corrected for nucl RBC Auto (Bld) [#/Vol]14.1 10*3/uL3.8-11.6 [facility] CenterLymphocytes Auto (Bld) [#/Vol]Ordered By: Thanh Torres on 72-56-3572Hltmugxplvu (Bld) [#/Vol]3.9 10*3/uL1.00-4.8 [facility] CenterLymphocytes/100 WBC Auto (Bld)Ordered By: AUTUMN Torres on 02-65-4101Bdehlnyzrbn/100 WBC (Bld)27.4 %.[facility] CenterH Auto (RBC) [Entitic mass]Ordered By: AUTUMN Torres on 80-19-7114GER (RBC) [Entitic mass]31.5 pg24.7-34.3FProtestant Deaconess HospitalMCHC Auto (RBC) [Mass/Vol]Ordered By: Thanh Torres on 08-20-2022 MCHC (RBC) [Mass/Vol]33.4 g/dL32.0-35.0[facility] CenterMCV Auto (RBC) [Entitic vol]Ordered By: Thanh Torres on 04-92-5362BMD (RBC) [Entitic vol]94.1 lJ77-590AyjvlglsgUniversity Hospitals Ahuja Medical CenterMonocytes Auto (Bld) [#/Vol]Ordered By: Thanh Torres on 83-10-3256Vvrjoxrek (Bld) [#/Vol]1.0 10*3/uL0.0-0.8[facility] CenterMonocytes/100 WBC Auto (Bld) Ordered By: Thanh Torres on 02-85-8884Tukifcmhu/100 WBC (Bld)6.8 %. [facility] CenterNeutrophils Auto (Bld) [#/Vol]Ordered By: Thanh Torres on 59-37-3542Zolkomvovix (Bld) [#/Vol]8.9 10*3/uL1.8-7.7 [facility] CenterNeutrophils/100 WBC Auto (Bld)Ordered By: Thanh Torres on 10-34-8830Uzsczczhhyi/100 WBC (Bld)63.3 %.[facility] CenterNo Panel InformationOrdered By: AUTUMN Torres on 08-20-2022 Estimated GFR (CKD-EPI)> 60.0 mL/MinUniversity Hospitals Ahuja Medical CenterPharmacy Creatinine Clearance (ChemN/AFProtestant Deaconess HospitalNucleated erythrocytes [Presence] in Blood by Automated countOrdered By: AUTUMN Torres on 39-65-7939Wiwsvqetd RBC Auto Ql (Bld)0.1 /100{WBC}0-0.5FProtestant Deaconess HospitalPlatelet mean volume Auto (Bld) [Entitic vol]Ordered By: Thanh Torres on 05-80-9394Pfhnqnzr mean volume (Bld) [Entitic vol]7.3 fL 6.3-10.7FProtestant Deaconess HospitalPlatelets Auto (Bld) [#/Vol]Ordered By: Thanh Torres on 36-43-5532Pcojoehyd (Bld) [#/Vol]277 10*3/dB739-978 [facility] CenterPotassium [Moles/volume] in Serum or Plasma Ordered By: Thanh Torres on 32-85-1633Mvjdyvipu [Moles/Vol]5.1 mmol/L 3.5-5.1FProtestant Deaconess HospitalRBC Auto (Bld) [#/Vol]Ordered By: Thanh Torres on 29-18-2579SQY (Bld) [#/Vol]4.90 10*6/uL3.60-5.00[facility]aritan Hospitalerum or plasma anion gap determinationOrdered By: Thanh Torres on 31-83-2002Vumkn gap [Moles/Vol]9.6 mmol/L6.0-15.0Samaritan Hospitalodium [Moles/volume] in Serum or PlasmaOrdered By: Thanh Torres on 40-34-2573Lfklvy [Moles/Vol]140 mmol/S839-897VtjeamgyhUniversity Hospitals Ahuja Medical CenterUrea nitrogen [Mass/volume] in Serum or PlasmaOrdered By: Thanh Torres on 90-52-9471Pljw nitrogen [Mass/Vol]18 mg/dL7-25[facility] CenterWBC Auto (Bld) [#/Vol]Ordered By: Thanh Torres on 31-01-2959GGG (Bld) [#/Vol]14.1 10*3/uL3.8-11.6FProtestant Deaconess Hospital Glucose Glucometer (BldC) [Mass/Vol]Ordered By: AUTUMN Torres on 38-11-7246Adxjfps [Mass/Vol]97 mg/dLUniversity Hospitals Ahuja Medical CenterComment on above:Random Glucose Reference Range is dependent on time and content of last meal. Glucose of more than 200 mg/dL in a nonstressed, ambulatory subject supports the diagnosis of Diabetes Mellitus.No Panel InformationOrdered By: AUTUMN Torres on 54-71-1550Abhcokj Glucose CommentGlu2: cleaned meterUniversity Hospitals Ahuja Medical CenterBasophils Auto (Bld) [#/Vol]Ordered By: AUTUMN Torres on 78-61-2837Uapyevtol (Bld) [#/Vol]0.1 10*3/uL0.0-0.2FProtestant Deaconess HospitalBasophils/100 WBC Auto (Bld)Ordered By: AUTUMN Torres on 21-39-8613Jkgcxqpvh/100 WBC (Bld)1.0 %.[facility] CenterCalcium [Mass/volume] in Serum or PlasmaOrdered By: AUTUMN Torres on 07-07-2022 Calcium [Mass/Vol]8.9 mg/dL8.6-10.3FProtestant Deaconess HospitalCarbon dioxide, total [Moles/volume] in Serum or PlasmaOrdered By: AUTUMN Torres on 01-70-5431QT6 [Moles/Vol]30.3 mmol/L21.0-31.0[facility] CenterChloride [Moles/volume] in Serum or PlasmaOrdered By: AUTUMN Torres on 13-01-5416Rppobfla [Moles/Vol]103 mmol/K79-643CthabxxzxUniversity Hospitals Ahuja Medical CenterCreatinine [Mass/volume] in Serum or PlasmaOrdered By: Thanh Torres on 28-66-2475Yqdxustzes [Mass/Vol]0.96 mg/dL0.60-1.20[facility] CenterEosinophils Auto (Bld) [#/Vol]Ordered By: AUTUMN Torres on 89-95-1296Jlqkyoxknns (Bld) [#/Vol]0.3 10*3/uL0.0-0.45[facility] CenterEosinophils/100 WBC Auto (Bld)Ordered By: [facility] Kanu Torres on 43-16-4098Fjvycfufihq/100 WBC (Bld)1.9 %.[facility] Erythrocyte distribution width Auto (RBC) [Ratio]Ordered By: [facility] Kanu Torres on 63-08-1758Mnbbwvmbhjl distribution width (RBC) [Ratio]14.4 %11.9-15.3 [facility] CenterGlucose [Mass/volume] in Serum or PlasmaOrdered By: [facility] Kanu Torres on 15-99-2753Xfpgzar [Mass/Vol]97 mg/mS99-293YrkytrfuxUniversity Hospitals Ahuja Medical CenterComment on above:ADA recommended reference rangeRandom Glucose Reference Range is dependent on time and content of last meal. Glucose of more than 200 mg/dL in a nonstressed, ambulatory subject supports the diagnosisof Diabetes Mellitus.Hematocrit Auto (Bld) [Volume fraction]Ordered By: [facility] Kanu Torres on 21-49-4842Jpcqthykfm (Bld) [Volume fraction]51.2 % 34.0-46.4FProtestant Deaconess HospitalHemoglobin [Mass/volume] in Blood Ordered By: [facility] Kanu Torres on 62-40-6469Ooohopdpbd (Bld) [Mass/Vol]16.8 g/dL11.8-15.4FProtestant Deaconess HospitalLeukocytes [#/volume] corrected for nucleated erythrocytes in Blood by Automated counOrdered By: [facility] Kanu Torres on 25-44-6728TFB corrected for nucl RBC Auto (Bld) [#/Vol]13.4 10*3/uL 3.8-11.6FProtestant Deaconess HospitalLymphocytes Auto (Bld) [#/Vol]Ordered By: [facility] Kanu Torres on 04-99-8351Nfjdeqdivxy (Bld) [#/Vol]2.7 10*3/uL 1.00-4.8[facility] CenterLymphocytes/100 WBC Auto (Bld)Ordered By: Thanh Torres on 27-54-1072Sllhxxnoece/100 WBC (Bld)20.0 %.[facility] CenterH Auto (RBC) [Entitic mass]Ordered By: AUTUMN Torres on 03-79-1053CQN (RBC) [Entitic mass]31.3 pg24.7-34.3FProtestant Deaconess HospitalMCHC Auto (RBC) [Mass/Vol]Ordered By: AUTUMN Torres on 02-85-8554MXOP (RBC) [Mass/Vol]32.8 g/dL32.0-35.0[facility] CenterMCV Auto (RBC) [Entitic vol]Ordered By: Thanh Torres on 07-07-2022 MCV (RBC) [Entitic vol]95.4 aP97-671VtgamqejsUniversity Hospitals Ahuja Medical CenterMonocytes Auto (Bld) [#/Vol]Ordered By: Thanh Torres on 37-55-5499Vmjnzwruq (Bld) [#/Vol]0.8 10*3/uL0.0-0.8[facility] CenterMonocytes/100 WBC Auto (Bld)Ordered By: Thanh Torres on 24-06-5088Dzoyohory/100 WBC (Bld)6.0 %. [facility] CenterNeutrophils Auto (Bld) [#/Vol]Ordered By: Thanh Torres on 13-31-8332Pfbrxegdknz (Bld) [#/Vol]9.6 10*3/uL1.8-7.7 [facility] CenterNeutrophils/100 WBC Auto (Bld)Ordered By: Thanh Torres on 75-07-0509Koysabjlioa/100 WBC (Bld)71.1 %.[facility] CenterNo Panel InformationOrdered By: AUTUMN Torres on 07-07-2022 Estimated GFR (CKD-EPI)> 60.0 mL/MinUniversity Hospitals Ahuja Medical CenterPharmacy Creatinine Clearance (ChemN/[facility] HospitalNucleated erythrocytes [Presence] in Blood by Automated countOrdered By: AUTUMN Torres on 39-93-1008Fkukptlax RBC Auto Ql (Bld)0.1 /100{WBC}0-0.5FProtestant Deaconess HospitalPlatelet mean volume Auto (Bld) [Entitic vol]Ordered By: AUTUMN Torres on 38-53-9508Wdxyemtl mean volume (Bld) [Entitic vol]7.3 fL 6.3-10.7FProtestant Deaconess HospitalPlatelets Auto (Bld) [#/Vol]Ordered By: AUTUMN Torres on 54-48-0809Wmvkmuawi (Bld) [#/Vol]324 10*3/pC368-660 [facility] CenterPotassium [Moles/volume] in Serum or Plasma Ordered By: AUTUMN Torres on 18-29-5133Pysuopkmu [Moles/Vol]4.7 mmol/L 3.5-5.1FProtestant Deaconess HospitalRBC Auto (Bld) [#/Vol]Ordered By: AUTUMN Torres on 96-59-8000WQE (Bld) [#/Vol]5.36 10*6/uL3.60-5.00[facility] Hospitalerum or plasma anion gap determinationOrdered By: Thanh Torres on 95-40-5397Vjbmq gap [Moles/Vol]11.4 mmol/L6.0-15.0[facility]itan Hospitalodium [Moles/volume] in Serum or PlasmaOrdered By: Thanh Torres on 75-41-9470Zgtemp [Moles/Vol]140 mmol/G904-780TsqirbpplUniversity Hospitals Ahuja Medical CenterUrea nitrogen [Mass/volume] in Serum or PlasmaOrdered By: Thanh Torres on 49-95-3489Zejc nitrogen [Mass/Vol]13 mg/dL7-25[facility] CenterWBC Auto (Bld) [#/Vol]Ordered By: AUTUMN Torres on 75-75-4647BSE (Bld) [#/Vol]13.4 10*3/uL3.8-11.6FProtestant Deaconess Hospital Aerobic cultureOrdered By: AUTUMN Torres on 58-07-4369Tddizouf identified Aer cx Nom (Unsp spec)No Growth 2 DaysUniversity Hospitals Ahuja Medical CenterGlucose Glucometer (BldC) [Mass/Vol]Ordered By: Thanh Torres on 58-43-1690Fthbtfv [Mass/Vol]87 mg/dLUniversity Hospitals Ahuja Medical CenterComment on above:Random Glucose Reference Range is dependent on time and content of last meal. Glucose of more than 200 mg/dL in a nonstressed, ambulatory subject supports the diagnosis of Diabetes Mellitus.No Panel InformationOrdered By: Thanh Torres on 14-11-9673Crogbvh Glucose CommentGlu2: cleaned meterUniversity Hospitals Ahuja Medical CenterAlbumin [Mass/volume] in Serum or PlasmaOrdered By: Thanh Torres on 69-66-9473Dlpwhdi [Mass/Vol]3.4 g/dL3.2-5.5FProtestant Deaconess HospitalBasophils Auto (Bld) [#/Vol]Ordered By: Thanh Torres on 03-25-2022 Basophils (Bld) [#/Vol]0.1 10*3/uL0.0-0.2FProtestant Deaconess Hospital Basophils/100 WBC Auto (Bld)Ordered By: [facility] Kanu Torres on 03-25-2022 Basophils/100 WBC (Bld)0.6 %.[facility] CenterC reactive protein [Mass/volume] in Serum or PlasmaOrdered By: Thanh Torres on 03-25-2022 CRP [Mass/Vol]1.0 mg/dL0.0-1.0[facility] CenterCreatinine and Glomerular filtration rate.predicted panel (S/P/Bld)Ordered By: Thanh Torres on 80-25-9825Gbdmpirxfx [Mass/Vol]1.14 mg/dL0.44-1.03[facility] CenterEosinophils Auto (Bld) [#/Vol]Ordered By: [facility] Kanu Torres on 62-99-8678Capqgkxohcg (Bld) [#/Vol]0.2 10*3/uL0.0-0.45[facility] CenterEosinophils/100 WBC Auto (Bld)Ordered By: [facility] Kanu Torres on 15-46-7400Bhnzwpzdvka/100 WBC (Bld)1.4 %.[facility] Erythrocyte distribution width Auto (RBC) [Ratio]Ordered By: [facility] Kanu Torres on 34-78-4290Tebitghyviu distribution width (RBC) [Ratio]16.8 %11.9-15.3 [facility] CenterErythrocyte sedimentation rate by Photometric methodOrdered By: [facility] Kanu Torres on 54-74-2118CJX Photometric method (Bld) [Velocity]30 mm/hr0-29[facility] CenterEstimated glomerular filtration rate (GFR) non- AmericanOrdered By: [facility] Kanu Torres on 12-27-8267AMR/1.73 sq M.predicted among non-blacks MDRD (S/P/Bld) [Vol rate/Area]49 mL/MinUniversity Hospitals Ahuja Medical CenterGlobulin Calc (S) [Mass/Vol] Ordered By: [facility] Kanu Torres on 90-16-7116Yctmcbih (S) [Mass/Vol]2.9 g/dL [facility] Medical CenterHematocrit Auto (Bld) [Volume fraction]Ordered By: [facility] Kanu Torres on 14-88-1298Soihvjdiec (Bld) [Volume fraction]46.6 % 34.0-46.4FProtestant Deaconess HospitalHemoglobin [Mass/volume] in Blood Ordered By: [facility] Kanu Torres on 23-36-2224Tqpwjtudws (Bld) [Mass/Vol]15.1 g/dL11.8-15.4FProtestant Deaconess HospitalLeukocytes [#/volume] corrected for nucleated erythrocytes in Blood by Automated counOrdered By: [facility] Kanu Torres on 70-17-3665PPS corrected for nucl RBC Auto (Bld) [#/Vol]14.2 10*3/uL 3.8-11.6FProtestant Deaconess HospitalLymphocytes Auto (Bld) [#/Vol]Ordered By: [facility] Kanu Torres on 25-98-7358Qbkfedixkmv (Bld) [#/Vol]4.2 10*3/uL 1.00-4.8[facility] Medical CenterLymphocytes/100 WBC Auto (Bld)Ordered By: Thanh Torres on 64-89-4610Ltgzkqxciff/100 WBC (Bld)29.8 %.[facility] CenterH Auto (RBC) [Entitic mass]Ordered By: Thanh Torres on 48-45-9428TCS (RBC) [Entitic mass]30.1 pg24.7-34.3FProtestant Deaconess HospitalMCHC Auto (RBC) [Mass/Vol]Ordered By: Thanh Torres on 14-42-9680PRZA (RBC) [Mass/Vol]32.5 g/dL32.0-35.0[facility] CenterMCV Auto (RBC) [Entitic vol]Ordered By: Thanh Torres on 03-25-2022 MCV (RBC) [Entitic vol]92.8 gP90-580TmjcikvzpUniversity Hospitals Ahuja Medical CenterMonocytes Auto (Bld) [#/Vol]Ordered By: [facility] Kanu Torres on 03-74-0593Pxgpeekpn (Bld) [#/Vol]0.7 10*3/uL0.0-0.8[facility] CenterMonocytes/100 WBC Auto (Bld)Ordered By: Thanh Torres on 83-79-6328Qsqmqujwt/100 WBC (Bld)5.0 %. [facility] Medical CenterNeutrophils Auto (Bld) [#/Vol]Ordered By: Thanh Torres on 10-45-0149Xqyrvnlebog (Bld) [#/Vol]9.0 10*3/uL1.8-7.7 [facility] CenterNeutrophils/100 WBC Auto (Bld)Ordered By: Thanh Torres on 83-15-9673Xtztulfmbsq/100 WBC (Bld)63.2 %.[facility] CenterNo Panel InformationOrdered By: Thanh Torres on 03-25-2022 Estimated GFR ()60 mL/MinUniversity Hospitals Ahuja Medical Center Comment on above:GFR estimated reference range: According to KDOQI guidelines, <60 ml/min/1.73m2 is sufficient todiagnose a patient with chronic kidney disease.Pharmacy Creatinine Clearance (ChemN/[facility] Nucleated erythrocytes [Presence] in Blood by Automated countOrdered By: AUTUMN Torres on 17-98-1262Kgmavtkmg RBC Auto Ql (Bld)0.1 /100{WBC}0-0.5 [facility] Medical CenterPlatelet mean volume Auto (Bld) [Entitic vol] Ordered By: AUTUMN Torres on 55-62-9701Vhxznghb mean volume (Bld) [Entitic vol]7.4 fL6.3-10.7FProtestant Deaconess HospitalPlatelets Auto (Bld) [#/Vol] Ordered By: AUTUMN Torres on 25-73-4520Fnrwwckoy (Bld) [#/Vol]336 10*3/uL 150-450[facility] CenterProtein [Mass/volume] in Serum or Plasma Ordered By: AUTUMN Torres on 73-33-5552Cvdsgtb [Mass/Vol]6.3 g/dL6.1-7.9 [facility] Medical CenterRBC Auto (Bld) [#/Vol]Ordered By: AUTUMN Torres on 99-52-3131YMO (Bld) [#/Vol]5.02 10*6/uL3.60-5.00[facility] Hospitalerum or plasma alanine aminotransferase measurement without P-5'-P (enzymatic activiOrdered By: AUTUMN Torres on 72-23-4485ARF No additional P-5'-P [Catalytic activity/Vol]20 U/A55-24AmtdracezSamaritan Hospitalerum or plasma albumin/globulin mass ratioOrdered By: AUTUMN Torres on 53-95-6673Lgezxdy/Globulin [Mass ratio]1.2 {ratio}[facility] Hospitalerum or plasma alkaline phosphatase measurement (enzymatic activity/volume)Ordered By: AUTUMN Torres on 36-00-5552CNM [Catalytic activity/Vol]74 U/C37-57EnbvmeorySamaritan Hospitalerum or plasma anion gap determinationOrdered By: AUTUMN Torres on 14-45-3617Mkwsu gap [Moles/Vol]12.7 mmol/L6.0-15.0[facility] Hospitalerum or plasma aspartate aminotransferase measurement (enzymatic activity/volume)Ordered By: [facility] Kanu Torres on 42-36-5976DVO [Catalytic activity/Vol]18 U/L10-42 [facility] Hospitalerum or plasma calcium measurement (mass/volume)Ordered By: [facility] Kanu Torres on 03-74-6450Afsljjx [Mass/Vol]8.8 mg/dL8.2-10.2FHolzer Medical Center – Jacksonerum or plasma chloride measurement (moles/volume)Ordered By: [facility] Kanu Torres on 04-40-6907Vxqjvifh [Moles/Vol]98 mmol/K81-260BzwismlvhSamaritan Hospitalerum or plasma glucose measurement (mass/volume)Ordered By: [facility] Kanu Torres on 03-25-2022 Glucose [Mass/Vol]70 mg/rG32-622BfervqfurUniversity Hospitals Ahuja Medical CenterComment on above:ADA recommended reference rangeRandom Glucose Reference Range is dependent on time and content of last meal. Glucose of more than 200 mg/dL in a nonstressed, ambulatory subject supports the diagnosisof Diabetes Mellitus.Serum or plasma potassium measurement (moles/volume)Ordered By: [facility] Kanu Torres on 38-24-1768Txldwebqf [Moles/Vol]4.5 mmol/L3.5-5.1FHolzer Medical Center – Jacksonerum or plasma prealbumin measurement (mass/volume)Ordered By: [facility] Kanu Torres on 29-31-3133Cmolcpyvez [Mass/Vol]23.4 mg/dL18.0-38.0[facility] Hospitalerum or plasma sodium measurement (moles/volume)Ordered By: [facility] Kanu Torres on 37-70-7896Exsacx [Moles/Vol]134 mmol/S478-566 [facility] Hospitalerum or plasma total bilirubin measurement (mass/volume)Ordered By: [facility] Kanu Torrse on 26-04-3930Ysmtycrwu [Mass/Vol] 0.3 mg/dL0.3-1.2FHolzer Medical Center – Jacksonerum or plasma total carbon dioxide measurement (moles/volume)Ordered By: [facility] Kanu Torres on 03-25-2022 CO2 [Moles/Vol]27.8 mmol/L22.0-30.0[facility] Hospitalerum or plasma urea nitrogen measurement (mass/volume)Ordered By: [facility] Kanu Torres on 89-71-3973Jguv nitrogen [Mass/Vol]19 mg/dL9-23[facility] WBC Auto (Bld) [#/Vol]Ordered By: [facility] Kanu Torres on 34-80-0709VJH (Bld) [#/Vol]14.2 10*3/uL3.8-11.6FProtestant Deaconess HospitalNo Panel Information Ordered By: Yung David on 58-49-1626Ogbpr Triiodothyronine1.04 ng/mL 0.87-1.78[facility]1.04 ng/mL0.87-1.78[facility] Hospitalerum or plasma thyroxine (T4) measurement (mass/volume)Ordered By: Yung David on 86-69-2770H9 [Mass/Vol]11.30 ug/dL5.39-11.82[facility] CenterTS DL <= 0.005 mIU/L QnOrdered By: Yung David on 83-01-0203ZVX Qn2.21 m[IU]/L0.45-5.33[facility]itan Hospitalcreening Mammogram, Bilateralon 13-45-5804Eznzxhfys Mammogram, BilateralCLINICAL HISTORY: Screening Mammogram COMPARISON: Priors from 2020, 2017 TECHNIQUE: 2D and 3D mammogram imaging of both breasts was performed. RESULT: DENSITY: There are scattered areas of fibroglandular density. There is no suspicious mass, asymmetry, architectural distortion, or calcification. No significant change since the prior mammograms. IMPRESSION: BIRADS 1 : NEGATIVE, NORMAL INTERVAL FOLLOW UP FOLLOW-UP: 12 months DENSITY: Scattered MAMMOGRAPHY IS VERY IMPORTANT TO YOUR HEALTH. THE CURRENT [employer] AND [employer] GUIDELINES RECOMMENDS ANNUAL MAMMOGRAPHY BEGINNING AT AGE 40 THIS FACILITY USES A REMINDER SYSTEM TO ENSURE ALL PATIENTS RECEIVE REMINDER NOTIFICATIONS AT THE APPROPRIATE TIME BASED ON THE RECOMMENDATIONS OF THIS EXAM. Board Certified Radiologist. Accredited by the ACR and FDA. Report reported and signed by Glenn Joyner on 2022 1416NormalNorthern Hartford HospitalGlucose Glucometer (BldC) [Mass/Vol]Ordered By: Thanh Kanu Quintanaceli on 03-79-7502Wekmzif [Mass/Vol]154 mg/dLUniversity Hospitals Ahuja Medical CenterComment on above:Random Glucose Reference Range is dependent on time and content of last meal. Glucose of more than 200 mg/dL in a nonstressed, ambulatory subject supports the diagnosis of Diabetes Mellitus.Aerobic culture Ordered By: Thanh Kanu Pena Melissa on 13-46-6400Lejeloka identified Aer cx Nom (Unsp spec)No Growth 2 DaysUniversity Hospitals Ahuja Medical CenterAlbumin [Mass/volume] in Serum or PlasmaOrdered By: Clyde Luna on 99-28-8458Wtjhrau [Mass/Vol]3.2 g/dL3.2-5.5FProtestant Deaconess HospitalBasophils Auto (Bld) [#/Vol]Ordered By: Clyde Luna on 55-15-9976Glcqaghvu (Bld) [#/Vol]0.1 10*3/uL 0.0-0.2FProtestant Deaconess HospitalBasophils/100 WBC Auto (Bld)Ordered By: Clyde Luna on 10-49-9159Bjwduxqcm/100 WBC (Bld)0.7 %.[facility] Medical CenterCOVID-19 Positive/NegativeOrdered By: Clyde Luna on 01-06-2022 SARS-CoV-2 (COVID-19) N gene NADINE+probe Ql (Resp)NegativeNegativeUniversity Hospitals Ahuja Medical CenterComment on above:Testing for SARS-CoV-2 by RT-PCRThis test was developed and its performance characteristics determined by [employer] ([employer]) and validated at the [facility]. This test has not been FDA cleared [...] unless the authorization is terminated or revoked sooner.Creatinine and Glomerular filtration rate.predicted panel (S/P/Bld)Ordered By: Clyde Luna on 27-22-2640Vkpnmturhl [Mass/Vol]1.02 mg/dL 0.44-1.03[facility] CenterEosinophils Auto (Bld) [#/Vol]Ordered By: Clyde Luna on 61-66-7688Izyoftojnkg (Bld) [#/Vol]0.4 10*3/uL0.0-0.45 [facility] CenterEosinophils/100 WBC Auto (Bld)Ordered By: Clyde Luna on 74-36-5708Dmimeihnmwv/100 WBC (Bld)3.6 %.[facility] Medical CenterErythrocyte distribution width Auto (RBC) [Ratio]Ordered By: Clyde Luna on 17-78-0695Zmbrykmkrow distribution width (RBC) [Ratio]16.7 %11.9-15.3 [facility] CenterEstimated glomerular filtration rate (GFR) non- AmericanOrdered By: Clyde Luna on 88-98-3492PZA/1.73 sq M.predicted among non-blacks MDRD (S/P/Bld) [Vol rate/Area]56 mL/MinUniversity Hospitals Ahuja Medical CenterGlobulin Calc (S) [Mass/Vol]Ordered By: Clyde Luna on 01-06-2022 Globulin (S) [Mass/Vol]3.6 g/dLUniversity Hospitals Ahuja Medical CenterGlucose Glucometer (BldC) [Mass/Vol]Ordered By: AUTUMN Torres on 02-13-4304Ifycshm [Mass/Vol]138 mg/dLUniversity Hospitals Ahuja Medical CenterHematocrit Auto (Bld) [Volume fraction]Ordered By: Clyde Luna on 38-11-9412Iugnbfjprx (Bld) [Volume fraction]44.8 %34.0-46.4FProtestant Deaconess HospitalHemoglobin [Mass/volume] in BloodOrdered By: Clyde Luna on 18-58-8794Ldeqonvdzc (Bld) [Mass/Vol]14.5 g/dL11.8-15.4FProtestant Deaconess HospitalLaboratory - Hematology and Cell countsOrdered By: Clyde Jeremy on 41-00-3710Phtwpqaxp RBC/100 WBC (Bld) [Ratio]0.1 %0-0.5FProtestant Deaconess HospitalLeukocytes [#/volume] in Blood by Automated countOrdered By: Clyde Jeremy on 53-94-3583VLW (Bld) [#/Vol]12.4 10*3/uL4.5-11.0[facility] Medical CenterLymphocytes Auto (Bld) [#/Vol]Ordered By: Clyde Jeremy on 72-98-3465Xzxdbwvylgy (Bld) [#/Vol]3.3 10*3/uL1.00-4.8[facility] Medical CenterLymphocytes/100 WBC Auto (Bld)Ordered By: Clyde Jeremy on 89-23-9946Kziuklsyitb/100 WBC (Bld)26.8 %. [facility] Auto (RBC) [Entitic mass]Ordered By: Clyde Jeremy on 62-72-3799EPY (RBC) [Entitic mass]29.5 pg24.7-34.3FProtestant Deaconess HospitalMCHC Auto (RBC) [Mass/Vol]Ordered By: Clyde Jeremy on 01-06-2022 MCHC (RBC) [Mass/Vol]32.3 g/dL32.0-35.0[facility] CenterMCV Auto (RBC) [Entitic vol]Ordered By: Clyde Jeremy on 13-98-4899QIJ (RBC) [Entitic vol]91.3 qA88-136PqztvdwirUniversity Hospitals Ahuja Medical CenterMonocytes Auto (Bld) [#/Vol] Ordered By: Clyde Jeremy on 58-02-3976Ggdwcrlya (Bld) [#/Vol]1.0 10*3/uL0.0-0.8 [facility] CenterMonocytes/100 WBC Auto (Bld)Ordered By: Clyde Arriagarram on 18-53-2412Ybwxmlfjf/100 WBC (Bld)8.0 %.[facility] CenterNeutrophils Auto (Bld) [#/Vol]Ordered By: Clyde Jeremy on 01-06-2022 Neutrophils (Bld) [#/Vol]7.6 10*3/uL1.8-7.7FProtestant Deaconess Hospital Neutrophils/100 WBC Auto (Bld)Ordered By: Clyde Jeremy on 01-06-2022 Neutrophils/100 WBC (Bld)60.9 %.[facility] CenterNo Panel InformationOrdered By: AUTUMN Torres on 18-48-5159Zoycsor Glucose Comment Glu2: cleaned [facility] HospitalGlu2: cleaned [facility] HospitalNo Panel InformationOrdered By: Clyde Luna on 23-86-5764Afudofwyj GFR ()> 60 mL/MinUniversity Hospitals Ahuja Medical CenterComment on above:GFR estimated reference range: According to KDOQI guidelines, <60 ml/min/1.73m2 is sufficient todiagnose a patient with chronic kidney disease.Pharmacy Creatinine Clearance (Chem77.52[facility]12.4 10*3/uL4.5-11.0[facility] [facility]0.1 %0-0.5 [facility]> 60 mL/MinUniversity Hospitals [facility] 77.52[facility] CenterPlatelet mean volume Auto (Bld) [Entitic vol]Ordered By: Clyde Jeremy on 60-07-6712Yssdkxav mean volume (Bld) [Entitic vol]7.5 fL6.3-10.7FProtestant Deaconess HospitalPlatelets Auto (Bld) [#/Vol] Ordered By: Clyde Jeremy on 97-53-5526Hgcpwufxs (Bld) [#/Vol]365 10*3/vW836-308 [facility] CenterProtein [Mass/volume] in Serum or PlasmaOrdered By: Clyde Jeremy on 12-18-5967Jhwuzfb [Mass/Vol]6.8 g/dL6.1-7.9[facility] CenterRBC Auto (Bld) [#/Vol]Ordered By: Clyde Jeremy on 29-17-0757JPE (Bld) [#/Vol]4.91 10*6/uL3.60-5.00[facility]itan Hospitalerum or plasma alanine aminotransferase measurement without P-5'-P (enzymatic activiOrdered By: Clyde Luna on 31-28-2088CXG No additional P-5'-P [Catalytic activity/Vol]18 U/O34-03UofyahtdnSamaritan Hospitalerum or plasma albumin/globulin mass ratioOrdered By: Clyde Luna on 01-06-2022 Albumin/Globulin [Mass ratio]0.9 {ratio}[facility] Hospitalerum or plasma alkaline phosphatase measurement (enzymatic activity/volume)Ordered By: Clyde Luna on 20-05-7850VDG [Catalytic activity/Vol]73 U/W63-14DvrogzsseSamaritan Hospitalerum or plasma anion gap determinationOrdered By: Clyde Luna on 04-61-2471Xzlga gap [Moles/Vol]13.3 mmol/L6.0-15.0[facility] Hospitalerum or plasma aspartate aminotransferase measurement (enzymatic activity/volume)Ordered By: Clyde Luna on 83-11-0423EGW [Catalytic activity/Vol]22 U/T07-67BroruigvhSamaritan Hospitalerum or plasma calcium measurement (mass/volume)Ordered By: Clyde Luna on 00-58-5504Eskcpya [Mass/Vol]8.8 mg/dL8.2-10.2FHolzer Medical Center – Jacksonerum or plasma chloride measurement (moles/volume)Ordered By: Clyde Luna on 01-06-2022 Chloride [Moles/Vol]100 mmol/F98-570EilswdtetSamaritan Hospitalerum or plasma creatinine measurement with calculation of estimated glomerular filtr Ordered By: Clyde Luna on 39-53-5436Evaobslmsg and Glomerular filtration rate.predicted panel (S/P/Bld)1.02 mg/dL0.44-1.03[facility] Hospitalerum or plasma glucose measurement (mass/volume)Ordered By: Clyde Luna on 73-47-6419Hywiacl [Mass/Vol]118 mg/yG54-099IvtmmbkhqUniversity Hospitals [facility] Comment on above:ADA recommended reference rangeRandom Glucose Reference Range is dependent on time and content of last meal. Glucose of more than 200 mg/dL in a nonstressed, ambulatory subject supports the diagnosisof Diabetes Mellitus. Serum or plasma potassium measurement (moles/volume)Ordered By: Clyde Luna on 26-78-5256Cvxygybyh [Moles/Vol]4.0 mmol/L3.5-5.1FHolzer Medical Center – Jacksonerum or plasma sodium measurement (moles/volume)Ordered By: Clyde Luna on 23-53-6724Mizier [Moles/Vol]138 mmol/W064-751MzirvgcyhSamaritan Hospitalerum or plasma total bilirubin measurement (mass/volume)Ordered By: Clyde Luna on 68-57-7530Uzyrqdxve [Mass/Vol]0.4 mg/dL0.3-1.2FHolzer Medical Center – Jacksonerum or plasma total carbon dioxide measurement (moles/volume) Ordered By: Clyde Luna on 10-99-9295MN0 [Moles/Vol]28.7 mmol/L22.0-30.0 [facility] Hospitalerum or plasma urea nitrogen measurement (mass/volume)Ordered By: Clyde Luna on 68-11-6169Iduh nitrogen [Mass/Vol]18 mg/dL9-23[facility] CenterBasophils Auto (Bld) [#/Vol]Ordered By: Hailee Berg on 80-87-2852Pfqpkajch (Bld) [#/Vol]0.1 10*3/uL0.0-0.2FProtestant Deaconess HospitalBasophils/100 WBC Auto (Bld)Ordered By: Hailee Berg on 45-86-6033Wsxwiojoq/100 WBC (Bld)1.0 %.[facility] Creatinine and Glomerular filtration rate.predicted panel (S/P/Bld)Ordered By: Hailee Berg on 09-47-6464Pluhkmxsxx [Mass/Vol]0.91 mg/dL0.44-1.03[facility] CenterEosinophils Auto (Bld) [#/Vol]Ordered By: Hailee Berg on 05-45-7564Btyjwtqrllv (Bld) [#/Vol]0.4 10*3/uL0.0-0.45[facility] CenterEosinophils/100 WBC Auto (Bld)Ordered By: Hailee Berg on 12-30-2021 Eosinophils/100 WBC (Bld)4.9 %.[facility] CenterErythrocyte distribution width Auto (RBC) [Ratio]Ordered By: Hailee Berg on 12-30-2021 Erythrocyte distribution width (RBC) [Ratio]16.3 %11.9-15.3FProtestant Deaconess HospitalEstimated glomerular filtration rate (GFR) non- Ordered By: Hailee Berg on 00-38-1112OMB/1.73 sq M.predicted among non-blacks MDRD (S/P/Bld) [Vol rate/Area]> 60 mL/MinUniversity Hospitals Ahu[facility] Medical Center Glucose Glucometer (BldC) [Mass/Vol]Ordered By: Fredy Patricia on 12-30-2021 Glucose [Mass/Vol]114 mg/dLUniversity Hospitals Ahuja Medical CenterComment on above: Random Glucose Reference Range is dependent on time and content of last meal. Glucose of more than 200 mg/dL in a nonstressed, ambulatory subject supports the diagnosis of Diabetes Mellitus.Hematocrit Auto (Bld) [Volume fraction]Ordered By: Hailee Berg on 51-04-6185Wtvvytzdqk (Bld) [Volume fraction]45.1 %34.0-46.4 [facility] CenterHemoglobin [Mass/volume] in BloodOrdered By: Hailee Berg on 58-38-1086Kkmmlxytnr (Bld) [Mass/Vol]14.4 g/dL11.8-15.4FProtestant Deaconess HospitalLaboratory - Hematology and Cell countsOrdered By: Hailee Berg on 02-40-2753Yvvjgodcu RBC/100 WBC (Bld) [Ratio]0.0 %0-0.5FProtestant Deaconess HospitalLeukocytes [#/volume] in Blood by Automated countOrdered By: Hailee Berg on 28-13-9866RYN (Bld) [#/Vol]8.8 10*3/uL4.5-11.0[facility] CenterLymphocytes Auto (Bld) [#/Vol]Ordered By: Hailee Berg on 08-84-3652Satkniewnim (Bld) [#/Vol]2.6 10*3/uL1.00-4.8[facility] CenterLymphocytes/100 WBC Auto (Bld)Ordered By: Hailee Berg on 12-30-2021 Lymphocytes/100 WBC (Bld)29.7 %.[facility] CenterH Auto (RBC) [Entitic mass]Ordered By: Hailee Berg on 56-21-4520CQI (RBC) [Entitic mass]29.1 pg24.7-34.3FProtestant Deaconess HospitalMCHC Auto (RBC) [Mass/Vol]Ordered By: Hailee Berg on 81-39-4788GVST (RBC) [Mass/Vol]31.9 g/dL32.0-35.0[facility] CenterMCV Auto (RBC) [Entitic vol]Ordered By: Hailee Berg on 13-07-2770DQF (RBC) [Entitic vol]91.3 wM98-057OpnxwbdcnUniversity Hospitals Ahuja Medical Center Monocytes Auto (Bld) [#/Vol]Ordered By: Hailee Berg on 38-87-6097Ezorwowfz (Bld) [#/Vol]0.5 10*3/uL0.0-0.8[facility] CenterMonocytes/100 WBC Auto (Bld)Ordered By: Hailee Berg on 48-72-9281Pbigwthhm/100 WBC (Bld)6.1 %. [facility] CenterNeutrophils Auto (Bld) [#/Vol]Ordered By: Hailee Berg on 63-04-4618Brstiowtnfn (Bld) [#/Vol]5.1 10*3/uL1.8-7.7FProtestant Deaconess HospitalNeutrophils/100 WBC Auto (Bld)Ordered By: Hailee Berg on 24-74-4001Yrlpcubtwaz/100 WBC (Bld)58.3 %.[facility] CenterNo Panel InformationOrdered By: Fredy Patricia on 81-11-5926Gmmvysw Glucose Comment Glu2: cleaned [facility] HospitalGlu2: cleaned [facility] HospitalNo Panel InformationOrdered By: Hailee Berg on 00-67-8179Ynucakfle GFR ()> 60 mL/MinUniversity Hospitals Ahuja Medical CenterComment on above:GFR estimated reference range: According to KDOQI guidelines, <60 ml/min/1.73m2 is sufficient todiagnose a patient with chronic kidney disease.Pharmacy Creatinine Clearance (Chem89.45[facility]8.8 10*3/uL4.5-11.0[facility]0.0 %0-0.5 [facility]> 60 mL/MinUniversity Hospitals A[facility] Center 89.45[facility] CenterPlatelet mean volume Auto (Bld) [Entitic vol]Ordered By: Hailee Berg on 02-47-9291Vtdecwgb mean volume (Bld) [Entitic vol]7.0 fL6.3-10.7FProtestant Deaconess HospitalPlatelets Auto (Bld) [#/Vol] Ordered By: Hailee Berg on 82-84-0543Fujatijol (Bld) [#/Vol]319 10*3/oH882-923 [facility] CenterRBC Auto (Bld) [#/Vol]Ordered By: Hailee Berg on 92-10-7604FIP (Bld) [#/Vol]4.94 10*6/uL3.60-5.00[facility] Hospitalerum or plasma anion gap determinationOrdered By: Hailee Berg on 98-58-8133Gexqj gap [Moles/Vol]11.4 mmol/L6.0-15.0[facility] Hospitalerum or plasma calcium measurement (mass/volume)Ordered By: Hailee Berg on 95-55-6979Emnvqkw [Mass/Vol]8.7 mg/dL8.2-10.2FHolzer Medical Center – Jacksonerum or plasma chloride measurement (moles/volume)Ordered By: Hailee Berg on 32-77-4546Hnusfbqe [Moles/Vol]102 mmol/I96-539GhdhnrsgwSamaritan Hospitalerum or plasma creatinine measurement with calculation of estimated glomerular filtrOrdered By: Hailee Berg on 17-96-7829Ssoszdisal and Glomerular filtration rate.predicted panel (S/P/Bld)0.91 mg/dL0.44-1.03[facility] Hospitalerum or plasma glucose measurement (mass/volume)Ordered By: Hailee Berg on 41-68-9430Ywjaiun [Mass/Vol]117 mg/eQ87-295WdkbpyeaiUniversity Hospitals Ahuja Medical CenterComment on above:ADA recommended reference rangeRandom Glucose Reference Range is dependent on time and content of last meal. Glucose of more than 200 mg/dL in a nonstressed, ambulatory subject supports the diagnosisof Diabetes Mellitus.Serum or plasma potassium measurement (moles/volume)Ordered By: Hailee Berg on 36-75-1995Iiaqqgczm [Moles/Vol]3.9 mmol/L3.5-5.1FHolzer Medical Center – Jacksonerum or plasma sodium measurement (moles/volume)Ordered By: Hailee Berg on 93-85-8557Gxbbcl [Moles/Vol]137 mmol/E084-725PqdbshxduSamaritan Hospitalerum or plasma total carbon dioxide measurement (moles/volume) Ordered By: Hailee Berg on 92-06-1175LP3 [Moles/Vol]27.5 mmol/L22.0-30.0 [facility] Hospitalerum or plasma urea nitrogen measurement (mass/volume)Ordered By: Hailee Berg on 18-05-9874Slja nitrogen [Mass/Vol]13 mg/dL9-23[facility] Hospitalerum or plasma trough vancomycin levelOrdered By: Hailee Berg on 29-96-7647Ztzbhemsfs trough [Mass/Vol]18.4 ug/mL 10.0-20.0[facility] CenterComment on above:Last dose: -Bacteria identified Aer cx Nom (Unsp spec)Ordered By: Robert Larsen on 12-28-2021 Aerobic culturePseudomonas aeruginosaUniversity Hospitals Ahuja Medical CenterPeak vancomycin levelOrdered By: Hailee Berg on 88-75-9083Taeiyhrnwi peak [Mass/Vol] 48.3 ug/mL20.0-40.0[facility] CenterComment on above:Last dose: -Automated erythrocytes count in urine sediment (number/area)Ordered By: Robert Larsen on 15-31-6110COT Auto (Urine sed) [#/Area]1-2 [HPF]0-4 [facility] CenterAutomated leukocytes count in urine sediment (number/area)Ordered By: Robert Larsen on 29-05-7110HWI Auto (Urine sed) [#/Area]0-1 [HPF]0-4FProtestant Deaconess HospitalBilirubin Test strip Ql (U) Ordered By: Robert Larsen on 09-69-0644Brudhzsam Ql (U)NegativeNegative [facility] CenterColor Auto (U)Ordered By: Robert Larsen on 52-75-5859Toimn (U)Dark yellowYellowUniversity Hospitals Ahuja Medical CenterKetones Auto test strip (U) [Mass/Vol]Ordered By: Robert Larsen on 57-07-9751Siryaby (U) [Mass/Vol]NegativeNegativeUniversity Hospitals Ahuja Medical CenterLaboratory - UrinalysisOrdered By: Robert Larsen on 85-22-4623Hxtqzpi casts LM Ql (Urine sed)0-8 [LPF]0-8[facility] CenterNitrite Test strip Ql (U) Ordered By: Robert Larsen on 35-17-6392Xxexjty Ql (U)NegativeNegative [facility] CenterNo Panel InformationOrdered By: Robert Larsen on 06-99-20979-8 [LPF]0-8[facility] CenterProtein Auto test strip (U) [Mass/Vol]Ordered By: Robert Larsen on 03-87-7920Zdgleux (U) [Mass/Vol]Trace mg/dLNegCleveland Clinicpecific gravity Auto test strip (U) [Rel density]Ordered By: Robert Larsen on 12-27-2021 Specific gravity (U) [Rel density]1.0371.001-1.030[facility] Hospitalquamous epithelial cells detection in urine sediment by light microscopy Ordered By: Robert Larsen on 76-51-0129Xeulowylvd cells.squamous LM Ql (Urine sed)3-4 [HPF]0-2FProtestant Deaconess HospitalUrine bacteria detection by automated methodOrdered By: Robert Larsen on 11-98-8776Yewpiaue Auto Ql (U)None seenNone SeenUniversity Hospitals Ahuja Medical CenterUrine clarity by refractometry automatedOrdered By: Robert Larsen on 48-87-7511Yhintqg Refractometry automated (U)ClearClearFProtestant Deaconess HospitalUrine glucose measurement by automated test strip (mass/volume)Ordered By: Robert Larsen on 22-09-4553Jkztvxr Auto test strip (U) [Mass/Vol]Normal mg/dLNormal [facility] CenterUrine hemoglobin detection by automated test stripOrdered By: Robert Larsen on 41-14-6993Scethevazz Auto test strip Ql (U)NegativeNegativeUniversity Hospitals Ahuja Medical CenterUrine leukocyte esterase detection by automated test stripOrdered By: Robert Larsen on 12-27-2021 Leukocyte esterase Auto test strip Ql (U)NegativeNegativeUniversity Hospitals Ahuja Medical CenterUrobilinogen Auto test strip (U) [Mass/Vol]Ordered By: Robert Larsen on 59-31-2749Tfspioxpgfna (U) [Mass/Vol]Normal mg/dLNormThe Jewish HospitalpH Auto test strip (U)Ordered By: Robert Larsen on 94-25-1799tL (U)5.5 [pH]5.0-9.0[facility] CenterActivated partial thromboplastin time (aPTT) in platelet poor plasma by coagulation a Ordered By: Robert Larsen on 90-99-0421fVXO Coag (PPP) [Time]29.4 s25.1-36.5 [facility] CenterAlbumin [Mass/volume] in Serum or PlasmaOrdered By: Robert Larsen on 93-26-5160Fywjrzs [Mass/Vol]3.4 g/dL3.2-5.5FProtestant Deaconess HospitalBacteria identified Aer cx Nom (Unsp spec)Ordered By: Robert Larsen on 23-44-6584Hxtzfkiehsu Wound CulturePseudomonas aeruginosa [facility] CenterBacterial blood cultureOrdered By: Robert Larsen on 46-90-8862Nbgleyci identified Cx Nom (Bld)NO GROWTH 5 DAYSUniversity Hospitals Ahuja Medical CenterC reactive protein [Mass/volume] in Serum or Plasma Ordered By: Robert Larsen on 63-00-1634QNL [Mass/Vol]0.7 mg/dL0.0-1.0 [facility] CenterCOVID CepheidOrdered By: Robert Larsen on 77-84-7885HFNF-CoV-2 (COVID-19) RNA NADINE+probe Ql (Unsp spec)[facility] HospitalARS-CoV-2 (COVID-19) Ab IA QlNegativeNegativeUniversity Hospitals Ahuja Medical CenterComment on above:This is a duplicate [employer] Xpert Xpress CoV- 2/Flu/RSV Plus RNA by RT-PCR result to be used for statistical tracking purpose only.SARS-CoV-2 (COVID-19) RNA NADINE+probe Ql (Unsp spec)NegativeNegativeSamaritan HospitalARS-CoV-2 (COVID-19) RNA NADINE+probe Ql (Unsp spec) [facility] CenterCOVID-19 SOFIAOrdered By: Robert Larsen on 40-63-1437HXMH-CoV+SARS-CoV-2 (COVID-19) Ag IA.rapid Ql (Resp)NegativeNegative [facility] CenterComment on above:This is a duplicate Antonina SARS Antigen (TAMRA) result to be used for statistical tracking purpose only.Creatine kinase [Enzymatic activity/volume] in Serum or PlasmaOrdered By: Robert Larsen on 71-18-2679XN [Catalytic activity/Vol]63 U/D22-354PbmxmooklUniversity Hospitals Ahuja Medical CenterErythrocyte sedimentation rate by Photometric methodOrdered By: Robert Larsen on 07-17-1518QID Photometric method (Bld) [Velocity]36 mm/hr 0-29[facility] CenterGlobulin Calc (S) [Mass/Vol]Ordered By: Robert Larsen on 08-86-8299Mtuqyciz (S) [Mass/Vol]3.5 g/dLUniversity Hospitals Ahuja Medical CenterLaboratory - CoagulationOrdered By: Robert Larsen on 85-19-2955SM Coag (PPP) [Time]10.7 s9.0-12.9[facility] Laboratory - Microbiology and Antimicrobial susceptibilityOrdered By: Robert Larsen on 70-53-1751DSSE-CoV-2 (COVID-19) RNA NADINE+probe Ql (Unsp spec)N/A [facility] CenterNo Panel InformationOrdered By: Robert Larsen on 12-26-2021N/AFProtestant Deaconess Hospital10.7 s9.0-12.9[facility] CenterPlatelet poor plasma international normalized ratio (INR) by coagulation assay (relatOrdered By: Robert Larsen on 65-67-3790AGJ Coag (PPP) [Relative time]1.0 {INR}[facility] CenterComment on above:INR Therapeutic Range A) Pre- and Peroperative OAT started two weeks before surgery. NOT HIP SURGERY: 1.5 - 2.5 HIP SURGERY: 2 - 3B) Primary and secondary prevention of venous THROMBOSIS: 2 - 3C) Active venous thrombosis, pulmonary embolismand prevention of recurrent venous thrombosis: 2 - 3D) Preve ntion of arterial thromboembolismincluding patients with mechanical heart valves: 3 - 4.5Protein [Mass/volume] in Serum or PlasmaOrdered By: Robert Larsen on 73-50-8945Bjwfcrm [Mass/Vol]6.9 g/dL6.1-7.9[facility] Hospitalerum or plasma alanine aminotransferase measurement without P-5'-P (enzymatic activiOrdered By: Robert Larsen on 42-45-4232TIZ No additional P-5'-P [Catalytic activity/Vol]16 U/Y04-71ZngoqgmwoSamaritan Hospitalerum or plasma albumin/globulin mass ratioOrdered By: Robert Larsen on 12-26-2021 Albumin/Globulin [Mass ratio]1.0 {ratio}[facility] Hospitalerum or plasma alkaline phosphatase measurement (enzymatic activity/volume)Ordered By: Robert Larsen on 62-75-2534QLZ [Catalytic activity/Vol]69 U/L32-92 [facility] Hospitalerum or plasma aspartate aminotransferase measurement (enzymatic activity/volume)Ordered By: Robert Larsen on 07-65-2792MJJ [Catalytic activity/Vol]20 U/T38-92FnvkdgtkiSamaritan Hospitalerum or plasma total bilirubin measurement (mass/volume)Ordered By: Robert Larsen on 48-22-8000Gokxvnvhu [Mass/Vol]0.3 mg/dL0.3-1.2FProtestant Deaconess HospitalUrine lactic acid measurementOrdered By: Robert Larsen on 65-67-7293Hyskmcn (U) [Moles/Vol]1.4 mmol/L0.5-2.2FProtestant Deaconess HospitalBasophils Auto (Bld) [#/Vol]Ordered By: Jarvis Thrasher on 12-18-2021 Basophils (Bld) [#/Vol]0.1 10*3/uL0.0-0.2[facility] Basophils/100 WBC Auto (Bld)Ordered By: Jarvis Thrasher on 84-80-1406Myopaldmi/100 WBC (Bld)0.7 %.[facility] CenterBlood hemoglobin measurement (mass/volume)Ordered By: Jarvis Thrasher on 55-15-2271Beadhnogbg (Bld) [Mass/Vol] 14.8 g/dL11.8-15.4FProtestant Deaconess HospitalEosinophils Auto (Bld) [#/Vol]Ordered By: Jarvis Thrasher on 46-16-0623Lcmqabovpqq (Bld) [#/Vol]0.5 10*3/uL 0.0-0.45[facility] CenterEosinophils/100 WBC Auto (Bld)Ordered By: Jarvis Thrasher on 47-08-9115Roqauhlenlc/100 WBC (Bld)5.0 %.[facility] CenterErythrocyte distribution width Auto (RBC) [Ratio]Ordered By: Jarvis Thrasher on 44-08-8122Frvppveqbln distribution width (RBC) [Ratio]15.8 % 11.9-15.3FProtestant Deaconess HospitalEstimated glomerular filtration rate (GFR) non- AmericanOrdered By: Elise Marie on 02-31-3781HFQ/1.73 sq M.predicted among non-blacks MDRD (S/P/Bld) [Vol rate/Area]> 60 mL/MinUniversity Hospitals Ahuja Medical CenterGlucose Glucometer (BldC) [Mass/Vol]Ordered By: AUTUMN Torres on 58-53-7791Bjydlsv [Mass/Vol]107 mg/dLUniversity Hospitals Ahuja Medical CenterHematocrit Auto (Bld) [Volume fraction]Ordered By: Jarvis Thrasher on 37-71-9352Pwzsgootjn (Bld) [Volume fraction]46.0 %34.0-46.4FProtestant Deaconess HospitalLymphocytes Auto (Bld) [#/Vol]Ordered By: Jarvis Thrasher on 29-85-4979Afdvakfbxod (Bld) [#/Vol]3.4 10*3/uL1.00-4.8[facility] CenterLymphocytes/100 WBC Auto (Bld)Ordered By: Jarvis Thrasher on 12-18-2021 Lymphocytes/100 WBC (Bld)32.2 %.[facility] CenterH Auto (RBC) [Entitic mass]Ordered By: Jarvis Thrasher on 21-56-1126FUL (RBC) [Entitic mass]29.5 pg24.7-34.3FProtestant Deaconess HospitalMCHC Auto (RBC) [Mass/Vol]Ordered By: Jarvis Thrasher on 27-99-5242ONLA (RBC) [Mass/Vol]32.1 g/dL32.0-35.0[facility] CenterMCV Auto (RBC) [Entitic vol]Ordered By: Jarvis Thrasher on 21-33-9868PHI (RBC) [Entitic vol]91.9 gI23-510ZmxxvamksUniversity Hospitals Ahuja [facility] Center Monocytes Auto (Bld) [#/Vol]Ordered By: Jarvis Thrasher on 88-20-3261Twfvmsjwa (Bld) [#/Vol]0.7 10*3/uL0.0-0.8[facility] CenterMonocytes/100 WBC Auto (Bld)Ordered By: Jarvis Thrasher on 85-17-9230Mdpghtbws/100 WBC (Bld)6.7 %. [facility] CenterNeutrophils Auto (Bld) [#/Vol]Ordered By: Jarvis Thrasher on 95-18-0466Rvcmmfhgxwk (Bld) [#/Vol]5.9 10*3/uL1.8-7.7FProtestant Deaconess HospitalNeutrophils/100 WBC Auto (Bld)Ordered By: Jarvis Thrasher on 75-83-8980Cnclewvmuwq/100 WBC (Bld)55.4 %.[facility] CenterNo Panel InformationOrdered By: AUTUMN Torres on 04-31-6467Kus8: cleaned meterUniversity Hospitals Ahuja Medical CenterNo Panel InformationOrdered By: Jarvis Thrasher on 14-36-370809.6 10*3/uL4.5-11.0[facility]0.1 % 0-0.5FProtestant Deaconess HospitalNo Panel InformationOrdered By: Elise Marie on 12-18-2021> 60 mL/[facility]85.99 [facility] CenterPlatelet mean volume Auto (Bld) [Entitic vol] Ordered By: Jarvis Thrasher on 90-21-5364Vjykwrlk mean volume (Bld) [Entitic vol]7.3 fL6.3-10.7FProtestant Deaconess HospitalPlatelets Auto (Bld) [#/Vol]Ordered By: Jarvis Thrasher on 11-79-9637Iuuvbgdnv (Bld) [#/Vol]287 10*3/vU262-891SdcwzvalyUniversity Hospitals Ahuja Medical CenterRBC Auto (Bld) [#/Vol]Ordered By: Jarvis Thrasher on 84-27-7999BTI (Bld) [#/Vol]5.01 10*6/uL3.60-5.00[facility] Hospitalerum or plasma anion gap determinationOrdered By: Elise Marie on 95-23-2314Wcahe gap [Moles/Vol]TNPSamaritan Hospitalerum or plasma calcium measurement (mass/volume)Ordered By: Elise Marie on 65-70-7483Ypxjufc [Mass/Vol]8.5 mg/dL8.2-10.2FProtestant Deaconess Hospital Serum or plasma chloride measurement (moles/volume)Ordered By: Elise Marie on 31-20-1467Ajkhskkd [Moles/Vol]101 mmol/U95-575IbksaysekSamaritan Hospitalerum or plasma creatinine measurement with calculation of estimated glomerular filtrOrdered By: Elise Marie on 90-11-5539Emyhlbadpi and Glomerular filtration rate.predicted panel (S/P/Bld)0.92 mg/dL0.44-1.03[facility] Hospitalerum or plasma glucose measurement (mass/volume)Ordered By: Elise Marie on 82-29-1227Ibcidop [Mass/Vol]97 mg/uB17-645SzuelbkkqSamaritan Hospitalerum or plasma potassium measurement (moles/volume) Ordered By: Elise Marie on 87-29-4934Wkelytfzo [Moles/Vol]4.1 mmol/L3.5-5.1 [facility] Hospitalerum or plasma sodium measurement (moles/volume)Ordered By: Elise Marie on 36-85-2184Haqwaz [Moles/Vol]136 mmol/P451-450GittnscauSamaritan Hospitalerum or plasma total carbon dioxide measurement (moles/volume)Ordered By: Elise Marie on 41-43-7569JL4 [Moles/Vol]27.6 mmol/L22.0-30.0[facility] Hospitalerum or plasma urea nitrogen measurement (mass/volume)Ordered By: Elise Marie on 12-18-2021 Urea nitrogen [Mass/Vol]14 mg/dL9-23[facility] CenterWBC Auto (Bld) [#/Vol]Ordered By: Jarvis Thrasher on 12-58-2490AJH (Bld) [#/Vol]10.6 10*3/uL 3.8-11.6FProtestant Deaconess HospitalAlbumin [Mass/volume] in Serum or PlasmaOrdered By: AUTUMN Torres on 26-45-7791Fpwxmsh [Mass/Vol]3.6 g/dL 3.2-5.5FProtestant Deaconess HospitalAutomated erythrocytes count in urine sediment (number/area)Ordered By: Thanh Torres on 98-09-9122PQG Auto (Urine sed) [#/Area]0-1 [HPF]0-4FProtestant Deaconess HospitalAutomated leukocytes count in urine sediment (number/area)Ordered By: Thanh Torres on 92-81-9423UGL Auto (Urine sed) [#/Area]0-1 [HPF]0-4FProtestant Deaconess HospitalBasophils Auto (Bld) [#/Vol]Ordered By: Thanh Torres on 12-16-2021 Basophils (Bld) [#/Vol]0.1 10*3/uL0.0-0.2FProtestant Deaconess Hospital Basophils/100 WBC Auto (Bld)Ordered By: Thanh Torres on 12-16-2021 Basophils/100 WBC (Bld)1.2 %.[facility] CenterBilirubin Test strip Ql (U)Ordered By: AUTUMN Torres on 81-98-5868Labnnpqyt Ql (U) NegativeNegativeUniversity Hospitals Ahuja Medical CenterBlood hemoglobin measurement (mass/volume)Ordered By: AUTUMN Torres on 04-94-9039Bkexanayoc (Bld) [Mass/Vol]15.1 g/dL11.8-15.4FProtestant Deaconess HospitalC reactive protein [Mass/volume] in Serum or PlasmaOrdered By: AUTUMN Torres on 10-69-3924KEE [Mass/Vol]0.9 mg/dL0.0-1.0[facility] CenterCOVID CepheidOrdered By: Thanh Torres on 50-06-7890GUHV-CoV-2 (COVID-19) RNA NADINE+probe Ql (Unsp spec)NegativeNegativeSamaritan HospitalARS-CoV-2 (COVID- 19) RNA NADINE+probe Ql (Unsp spec)[facility] CenterColor Auto (U) Ordered By: Thanh Torres on 15-93-5410Mviqx (U)YellowYellowUniversity Hospitals Ahuja Medical CenterEosinophils Auto (Bld) [#/Vol]Ordered By: Thanh Torres on 34-24-7739Gyvijijbffm (Bld) [#/Vol]0.6 10*3/uL0.0-0.45[facility] Medical CenterEosinophils/100 WBC Auto (Bld)Ordered By: [facility] Kanu Torres on 18-35-3551Kygapqurbqq/100 WBC (Bld)4.9 %.[facility]ja Medical CenterErythrocyte distribution width Auto (RBC) [Ratio]Ordered By: Thanh Torres on 84-04-9500Beszvqqgmim distribution width (RBC) [Ratio]16.2 %11.9-15.3 [facility] CenterErythrocyte sedimentation rate by Photometric methodOrdered By: Thanh Torres on 79-76-6553CIM Photometric method (Bld) [Velocity]23 mm/hr0-29[facility] Medical CenterEstimated glomerular filtration rate (GFR) non- AmericanOrdered By: Thanh Torres on 78-52-1919OFO/1.73 sq M.predicted among non-blacks MDRD (S/P/Bld) [Vol rate/Area]49 mL/MinUniversity Hospitals Ahuja Medical CenterGlobulin Calc (S) [Mass/Vol] Ordered By: AUTUMN Torres on 68-55-6339Bbhugztj (S) [Mass/Vol]3.6 g/dL [facility] Medical CenterGlucose Glucometer (BldC) [Mass/Vol]Ordered By: Thanh Torres on 08-87-5397Wgmpamq [Mass/Vol]186 mg/dLUniversity Hospitals Ahuja Medical CenterHCG ( test) IA.rapid Ql (U)Ordered By: EMY MILLER on 41-32-9732BWT ( test) Ql (U)NegativeUniversity Hospitals Ahuja Medical Center Hematocrit Auto (Bld) [Volume fraction]Ordered By: [facility] Kanu Torres on 34-51-0792Fnhufhlend (Bld) [Volume fraction]46.3 %34.0-46.4FProtestant Deaconess HospitalKetones Auto test strip (U) [Mass/Vol]Ordered By: Thanh Torres on 46-89-6842Ipkdqfq (U) [Mass/Vol]NegativeNegativeUniversity Hospitals Ahuja Medical CenterLymphocytes Auto (Bld) [#/Vol]Ordered By: [facility] Kanu Torres on 12-87-2118Gdtgulvvkgt (Bld) [#/Vol]2.7 10*3/uL1.00-4.8[facility]ja Medical CenterLymphocytes/100 WBC Auto (Bld)Ordered By: [facility] Kanu Torres on 76-27-3690Ilbruedfqbj/100 WBC (Bld)22.1 %.[facility] CenterH Auto (RBC) [Entitic mass]Ordered By: Thanh Torres on 64-33-0348FSE (RBC) [Entitic mass]29.7 pg24.7-34.3FProtestant Deaconess HospitalMCHC Auto (RBC) [Mass/Vol]Ordered By: Thanh Torres on 48-98-6857HSML (RBC) [Mass/Vol]32.6 g/dL32.0-35.0[facility] Medical CenterMCV Auto (RBC) [Entitic vol] Ordered By: Thanh Torres on 65-56-7218GYL (RBC) [Entitic vol]91.2 fL 80-100[facility] Medical CenterMonocytes Auto (Bld) [#/Vol]Ordered By: Thanh Torres on 11-09-7437Yqrzylrzv (Bld) [#/Vol]0.7 10*3/uL0.0-0.8 [facility] Medical CenterMonocytes/100 WBC Auto (Bld)Ordered By: Thanh Torres on 00-76-7707Voclztrxy/100 WBC (Bld)5.4 %.[facility]huja Medical CenterNeutrophils Auto (Bld) [#/Vol]Ordered By: [facility] Kanu Torres on 33-15-0003Fwqaulhukzo (Bld) [#/Vol]8.1 10*3/uL1.8-7.7FProtestant Deaconess HospitalNeutrophils/100 WBC Auto (Bld)Ordered By: Thanh Torres on 96-97-3587Ugcqmbtqvho/100 WBC (Bld)66.4 %.[facility] Nitrite Test strip Ql (U)Ordered By: Thanh Torres on 57-46-4784Wirrhoh Ql (U)NegativeNegativeUniversity Hospitals Ahuja Medical CenterNo Panel InformationOrdered By: Thanh Torres on 56-11-99809-8 [LPF]0-8[facility]12.2 10*3/uL4.5-11.0[facility]0.1 %0-0.5FProtestant Deaconess Hospital59 mL/MinUniversity Hospitals Ahuja Medical Center68.45[facility] Medical CenterPlatelet mean volume Auto (Bld) [Entitic vol]Ordered By: Thanh Torres on 52-62-0676Belwuddf mean volume (Bld) [Entitic vol]7.2 fL 6.3-10.7FProtestant Deaconess HospitalPlatelets Auto (Bld) [#/Vol]Ordered By: Thanh Torres on 16-90-3629Ooaobbwap (Bld) [#/Vol]354 10*3/uB293-307 [facility] Medical CenterProtein Auto test strip (U) [Mass/Vol]Ordered By: Thanh Torres on 27-04-0873Hoguesm (U) [Mass/Vol]Trace mg/dLNegative [facility] Medical CenterProtein [Mass/volume] in Serum or PlasmaOrdered By: AUTUMN Torres on 01-50-3828Ikyhcsi [Mass/Vol]7.2 g/dL6.1-7.9[facility]ja Medical CenterRBC Auto (Bld) [#/Vol]Ordered By: Thanh Torres on 31-17-2436XHS (Bld) [#/Vol]5.08 10*6/uL3.60-5.00Samaritan Hospitalerum or plasma alanine aminotransferase measurement without P-5'-P (enzymatic activiOrdered By: AUTUMN Torres on 33-26-8679AZN No additional P-5'-P [Catalytic activity/Vol]16 U/F34-50BzxomtidxSamaritan Hospitalerum or plasma albumin/globulin mass ratioOrdered By: AUTUMN Torres on 73-38-0684Bhknoob/Globulin [Mass ratio]1.0 {ratio}[facility]aritan Hospitalerum or plasma alkaline phosphatase measurement (enzymatic activity/volume)Ordered By: Thanh Torres on 11-01-3404UKD [Catalytic activity/Vol]72 U/Q38-07ImuikhynxSamaritan Hospitalerum or plasma anion gap determinationOrdered By: Thanh Torres on 46-05-0465Xadye gap [Moles/Vol]14.0 mmol/L6.0-15.0[facility]itan Hospitalerum or plasma aspartate aminotransferase measurement (enzymatic activity/volume)Ordered By: Thanh Torres on 18-70-9402SNL [Catalytic activity/Vol]22 U/L10-42 [facility]itan Hospitalerum or plasma calcium measurement (mass/volume)Ordered By: Thanh Torres on 40-48-4017Ejkdekq [Mass/Vol]9.2 mg/dL8.2-10.2FHolzer Medical Center – Jacksonerum or plasma chloride measurement (moles/volume)Ordered By: Thanh Torres on 63-25-8473Sopaqmjg [Moles/Vol]98 mmol/S45-505DlbissiebSamaritan Hospitalerum or plasma creatinine measurement with calculation of estimated glomerular filtrOrdered By: [facility] Kanu Torres on 70-17-3172Aqjpxfvlyu and Glomerular filtration rate.predicted panel (S/P/Bld)1.15 mg/dL0.44-1.03Sam[facility]itan Hospitalerum or plasma glucose measurement (mass/volume)Ordered By: [facility] Kanu Torres on 32-03-1926Toqwtpi [Mass/Vol]122 mg/nL72-725CgsfjmrqeSamaritan Hospitalerum or plasma potassium measurement (moles/volume)Ordered By: [facility] Kanu Torres on 08-63-5700Iyuebgqnk [Moles/Vol]4.6 mmol/L3.5-5.1FHolzer Medical Center – Jacksonerum or plasma sodium measurement (moles/volume)Ordered By: [facility] Kanu Torres on 23-65-6605Pzpwrg [Moles/Vol]137 mmol/N179-496ClnflnvhrSamaritan Hospitalerum or plasma total bilirubin measurement (mass/volume) Ordered By: [facility] Kanu Torres on 37-25-3716Dpgqokuge [Mass/Vol]0.4 mg/dL 0.3-1.2FHolzer Medical Center – Jacksonerum or plasma total carbon dioxide measurement (moles/volume)Ordered By: [facility] Kanu Torres on 26-04-7212XF0 [Moles/Vol]29.6 mmol/L22.0-30.0[facility]itan Hospitalerum or plasma urea nitrogen measurement (mass/volume)Ordered By: [facility] Kanu Torres on 19-26-9130Ibus nitrogen [Mass/Vol]19 mg/dL9-23[facility] Specific gravity Auto test strip (U) [Rel density]Ordered By: [facility] Kanu Torres on 83-50-6112Nnbacgjg gravity (U) [Rel density]1.0331.001-1.030Samaritan Hospitalquamous epithelial cells detection in urine sediment by light microscopyOrdered By: [facility] Kanu Torres on 82-78-8780Rvrfmrwwhj cells.squamous LM Ql (Urine sed)3-4 [HPF]0-2FProtestant Deaconess Hospital Urine bacteria detection by automated methodOrdered By: [facility] Kanu Torres on 98-97-3623Vshtnlbz Auto Ql (U)None seenNone SeenUniversity Hospitals Ahuja Medical CenterUrine clarity by refractometry automatedOrdered By: [facility] Kanu Torres on 01-80-2348Wqtzyfm Refractometry automated (U)ClearClearFProtestant Deaconess HospitalUrine glucose measurement by automated test strip (mass/volume) Ordered By: [facility] Kanu Torres on 17-87-9039Vjwganj Auto test strip (U) [Mass/Vol]Normal mg/dLNoKettering Health TroyUrine hemoglobin detection by automated test stripOrdered By: [facility] Kanu Torres on 12-16-2021 Hemoglobin Auto test strip Ql (U)NegativeNegativeUniversity Hospitals Ahuja Medical CenterUrine leukocyte esterase detection by automated test stripOrdered By: [facility] Kanu Torres on 16-38-5801Gblusavqa esterase Auto test strip Ql (U)Negative NegativeUniversity Hospitals Ahuja Medical CenterUrobilinogen Auto test strip (U) [Mass/Vol]Ordered By: [facility] Kanu Torres on 49-25-9683Tdrrwcjixapc (U) [Mass/Vol]Normal mg/dLNoKettering Health TroyWBC Auto (Bld) [#/Vol]Ordered By: [facility] Kanu Torres on 28-70-6494KRW (Bld) [#/Vol]12.2 10*3/uL3.8-11.6FProtestant Deaconess HospitalpH Auto test strip (U)Ordered By: [facility] Kanu Torres on 21-98-0339cE (U)6.0 [pH]5.0-9.0[facility] Medical CenterBacterial blood cultureOrdered By: Zaid Fan on 12-08-2021 Bacteria identified Cx Nom (Bld)NO GROWTH 5 DAYSUniversity Hospitals Ahuja Medical CenterBasophils Auto (Bld) [#/Vol]Ordered By: Rodney Marti on 12-06-2021 Basophils (Bld) [#/Vol]0.1 10*3/uL0.0-0.2FProtestant Deaconess Hospital Basophils/100 WBC Auto (Bld)Ordered By: Rodney Marti on 12-06-2021 Basophils/100 WBC (Bld)0.6 %.[facility] Medical CenterBlood hemoglobin measurement (mass/volume)Ordered By: Rodney Marti on 88-21-9988Ixsjznlgfi (Bld) [Mass/Vol]13.4 g/dL11.8-15.4FProtestant Deaconess HospitalBlood leukocytes automated count (number/volume)Ordered By: Obhaydee Scottomar on 61-69-2509BVP (Bld) [#/Vol]10.9 10*3/uL3.8-11.6FProtestant Deaconess Hospital Creatinine and Glomerular filtration rate.predicted panel (S/P/Bld)Ordered By: Rodney Sethr on 88-62-4923Ybrmacfskq [Mass/Vol]1.00 mg/dL0.44-1.03[facility] Medical CenterEosinophils Auto (Bld) [#/Vol]Ordered By: Obhaydee Scottomar on 59-97-1559Mgqprctnrue (Bld) [#/Vol]0.3 10*3/uL0.0-0.45[facility] Medical CenterEosinophils/100 WBC Auto (Bld)Ordered By: Obhaydee Scottomar on 44-76-2342Pkygiwnmtfl/100 WBC (Bld)3.1 %.[facility] Erythrocyte distribution width Auto (RBC) [Ratio]Ordered By: Rodney Scottomar on 64-14-7039Izcpwmkgzva distribution width (RBC) [Ratio]16.3 %11.9-15.3FProtestant Deaconess HospitalEstimated glomerular filtration rate (GFR) non- AmericanOrdered By: Rodney Marti on 83-18-5491QWI/1.73 sq M.predicted among non-blacks MDRD (S/P/Bld) [Vol rate/Area]58 mL/MinUniversity Hospitals Ahuja Medical CenterHematocrit Auto (Bld) [Volume fraction]Ordered By: Rodney Scottomar on 51-69-8820Efwkgnejyr (Bld) [Volume fraction]41.4 %34.0-46.4FProtestant Deaconess HospitalLaboratory - Hematology and Cell countsOrdered By: Rodney Sethr on 85-99-1438Shownrbkl RBC/100 WBC (Bld) [Ratio]0.0 %0-0.5FProtestant Deaconess HospitalLymphocytes Auto (Bld) [#/Vol]Ordered By: Obaydah Daromar on 45-41-3859Ddwcgfbazhr (Bld) [#/Vol]3.1 10*3/uL1.00-4.8[facility] Medical CenterLymphocytes/100 WBC Auto (Bld)Ordered By: Obaydah Daromar on 12-06-2021 Lymphocytes/100 WBC (Bld)28.9 %.[facility] Auto (RBC) [Entitic mass]Ordered By: Obaydah Daromar on 76-45-2375GXC (RBC) [Entitic mass] 29.8 pg24.7-34.3FProtestant Deaconess HospitalMCHC Auto (RBC) [Mass/Vol] Ordered By: Obaydah Daromar on 62-49-1633EZEJ (RBC) [Mass/Vol]32.3 g/dL32.0-35.0 [facility] Medical CenterMCV Auto (RBC) [Entitic vol]Ordered By: Obaydah Daromar on 41-74-0089IIM (RBC) [Entitic vol]92.3 aJ02-225GkxykunifUniversity Hospitals Ahuja Medical CenterMonocytes Auto (Bld) [#/Vol]Ordered By: Obaydah Daromar on 58-36-7912Vuwavgwmu (Bld) [#/Vol]0.8 10*3/uL0.0-0.8[facility] Medical CenterMonocytes/100 WBC Auto (Bld)Ordered By: Obaydah Daromar on 12-06-2021 Monocytes/100 WBC (Bld)7.7 %.[facility] Medical CenterNeutrophils Auto (Bld) [#/Vol]Ordered By: Obaydah Daromar on 25-28-0749Ftzgbspbppq (Bld) [#/Vol] 6.5 10*3/uL1.8-7.7FProtestant Deaconess HospitalNeutrophils/100 WBC Auto (Bld)Ordered By: Obaydah Daromar on 02-50-1975Sultljyqkcf/100 WBC (Bld)59.7 %. [facility] Medical CenterNo Panel InformationOrdered By: Rodney Marti on 67-73-6404Yedgfeiio GFR ()> 60 mL/MinUniversity Hospitals Ahuja Medical CenterComment on above:GFR estimated reference range: According to KDOQI guidelines, <60 ml/min/1.73m2 is sufficient todiagnose a patient with chronic kidney disease.Pharmacy Creatinine Clearance (Chem80.16[facility]10.9 10*3/uL4.5-11.0[facility]0.0 %0-0.5 [facility]> 60 mL/MinUniversity Hospitals Ahuja Medical Center 80.16[facility] CenterPlatelet mean volume Auto (Bld) [Entitic vol]Ordered By: Rodney Marti on 51-34-1688Veboyrmn mean volume (Bld) [Entitic vol]7.0 fL6.3-10.7FProtestant Deaconess HospitalPlatelets Auto (Bld) [#/Vol] Ordered By: Rodney Marti on 59-00-2282Caxbfcmbl (Bld) [#/Vol]347 10*3/uL 150-450[facility] Medical CenterRBC Auto (Bld) [#/Vol]Ordered By: Rodney Marti on 56-37-0424NTN (Bld) [#/Vol]4.48 10*6/uL3.60-5.00[facility] Hospitalerum or plasma anion gap determinationOrdered By: Rodney Marti on 35-61-0981Svfxh gap [Moles/Vol]9.7 mmol/L6.0-15.0[facility] Hospitalerum or plasma calcium measurement (mass/volume)Ordered By: Rodney Marti on 79-76-2368Ovlaiux [Mass/Vol]9.0 mg/dL8.2-10.2FHolzer Medical Center – Jacksonerum or plasma chloride measurement (moles/volume) Ordered By: Rodney Marti on 08-95-2169Fwertfbg [Moles/Vol]100 mmol/L95-114 [facility] Hospitalerum or plasma creatinine measurement with calculation of estimated glomerular filtrOrdered By: Rodney Marti on 02-21-7924Cuhkiavppn and Glomerular filtration rate.predicted panel (S/P/Bld) 1.00 mg/dL0.44-1.03[facility] Hospitalerum or plasma glucose measurement (mass/volume)Ordered By: Rodney Marti on 88-09-2889Eddrwpb [Mass/Vol]100 mg/yL25-802IewpkwtycUniversity Hospitals Ahuja Medical CenterComment on above:ADA recommended reference range Random Glucose Reference Range is dependent on time and content of last meal. Glucose of more than 200 mg/dL in a nonstressed, ambulatory subject supports the diagnosis of Diabetes Mellitus.ADA recommended reference rangeRandom Glucose Reference Range is dependent on time and content of last meal. Glucose of more than 200 mg/dL in a nonstressed, ambulatory subject supports the diagnosisof Diabetes Mellitus.Serum or plasma potassium measurement (moles/volume)Ordered By: Rodney Marti on 62-73-0804Saorzshvp [Moles/Vol]4.0 mmol/L3.5-5.1FHolzer Medical Center – Jacksonerum or plasma sodium measurement (moles/volume)Ordered By: Rodney Marti on 68-06-0774Ulvhab [Moles/Vol]137 mmol/T942-987QilipwnolSamaritan Hospitalerum or plasma total carbon dioxide measurement (moles/volume)Ordered By: Rodney Marti on 07-78-3423SV8 [Moles/Vol]31.3 mmol/L22.0-30.0[facility]itan Hospitalerum or plasma urea nitrogen measurement (mass/volume)Ordered By: Rodney Marti on 82-59-7681Fsqh nitrogen [Mass/Vol]10 mg/dL9-23[facility] Medical CenterPeak vancomycin level Ordered By: Rodney Marti on 71-17-1496Citynpokhi peak [Mass/Vol]23.6 ug/mL 20.0-40.0[facility] Medical CenterComment on above:Last dose: -Serum or plasma trough vancomycin levelOrdered By: Rodney Marti on 12-05-2021 Vancomycin trough [Mass/Vol]17.4 ug/mL10.0-20.0[facility] Comment on above:Last dose: -Albumin [Mass/volume] in Serum or PlasmaOrdered By: Rodney Marti on 62-46-9770Lsxbtem [Mass/Vol]3.4 g/dL3.2-5.5FProtestant Deaconess HospitalC reactive protein [Mass/volume] in Serum or Plasma Ordered By: Rodney Scottomar on 28-03-6017NXV [Mass/Vol]0.7 mg/dL0.0-1.0[facility] Medical CenterGlobulin Calc (S) [Mass/Vol]Ordered By: Rodney Scottomar on 62-66-7119Sechddnu (S) [Mass/Vol]3.5 g/dLUniversity Hospitals Ahuja Medical Center Laboratory - Chemistry and Chemistry - challengeOrdered By: Rodney Marti on 28-03-7852Bqkhhrhns [Mass/Vol]1.8 mg/dL1.6-2.6FProtestant Deaconess Hospital No Panel InformationOrdered By: Rodney Marti on 21.8 mg/dL1.6-2.6 [facility] Medical CenterPhosphate [Mass/volume] in Serum or Plasma Ordered By: Rodney Marti on 17-96-3893Cpzxqsykr [Mass/Vol]4.7 mg/dL2.5-4.6 [facility] Medical CenterProtein [Mass/volume] in Serum or PlasmaOrdered By: Rodney Marti on 71-97-4864Oxitciy [Mass/Vol]6.9 g/dL6.1-7.9[facility]itan Hospitalerum or plasma alanine aminotransferase measurement without P-5'-P (enzymatic activiOrdered By: Rodney Marti on 14-84-4063WUE No additional P-5'-P [Catalytic activity/Vol]12 U/V23-38NngxhslfkSamaritan Hospitalerum or plasma albumin/globulin mass ratioOrdered By: Rodney Sethr on 84-03-7546Vvfvygd/Globulin [Mass ratio]1.0 {ratio}[facility]aritan Hospitalerum or plasma alkaline phosphatase measurement (enzymatic activity/volume)Ordered By: Rodney Marti on 38-96-0235ZGX [Catalytic activity/Vol]78 U/Z84-15GedygrgicSamaritan Hospitalerum or plasma aspartate aminotransferase measurement (enzymatic activity/volume)Ordered By: Obhaydee Scottomar on 93-73-2848CTS [Catalytic activity/Vol]18 U/X43-59SgyjcjbpzSamaritan Hospitalerum or plasma total bilirubin measurement (mass/volume) Ordered By: Obhaydee Scottomar on 88-00-0384Foejddgkl [Mass/Vol]0.5 mg/dL0.3-1.2 [facility] Medical CenterCOVID-19 Positive/NegativeOrdered By: Zaid Fan on 93-53-0408GUCL-CoV-2 (COVID-19) N gene NADINE+probe Ql (Resp)Negative NegativeUniversity Hospitals Ahuja Medical CenterComment on above:Testing for SARS-CoV-2 by RT-PCR This test was developed and its performance characteristics determined by [employer] and validated at the [facility]. This test has not been FDA cleared [...] of time the declaration that circumstances exist ju stifying the authorization of the emergency use of in vitro diagnostic tests for detection of SARS-CoV-2 virus and/or diagnosis of COVID-19 infection under section 564(b)(1) of the Act, 21 U.S.C. 360bbb-3(b)(1), unless the authorization is terminated or revoked sooner.Testing for SARS-CoV-2 by RT-PCRThis test was developed and its performance characteristics determined by [employer]) and validated at the [facility]. This test has not been FDA cleared [...] unless the authorization is terminated or revoked sooner.COVID-19 SOFIAOrdered By: Zaid Fan on 12-03-2021 SARS-CoV+SARS-CoV-2 (COVID-19) Ag IA.rapid Ql (Resp)NegativeNegativeUniversity Hospitals Ahuja Medical CenterComment on above:This is a duplicate Antonina SARS Antigen (TAMRA) result to be used for statistical tracking purpose only.Erythrocyte sedimentation rate by Photometric methodOrdered By: Zaid Fan on 43-92-0404ADT Photometric method (Bld) [Velocity]54 mm/hr0-29[facility] CenterNo Panel InformationOrdered By: Zaid Fan on 83-88-2685RICA Antigen (LFIA)[facility] Medical CenterUrine lactic acid measurement Ordered By: Zaid Fan on 73-62-6740Dbjragv (U) [Moles/Vol]0.9 mmol/L 0.5-2.2FProtestant Deaconess HospitalBacteria identified Anaer cx Nom (Unsp spec)Ordered By: Zaid Mon on 61-07-4429Icmjvcthq microbial cultureNo Anaerobes Isolated 3 DaysUniversity Hospitals Ahuja Medical CenterBacterial blood cultureOrdered By: Raj Craven on 31-02-6150Udchbefv identified Cx Nom (Bld)NO GROWTH 5 DAYSUniversity Hospitals Ahuja Medical CenterGlucose Glucometer (BldC) [Mass/Vol]Ordered By: Dean Rodriguez on 27-51-0092Dzpfplj [Mass/Vol]368 mg/dL [facility] Medical CenterComment on above:Random Glucose Reference Range is dependent on time and content of last meal. Glucose of more than 200 mg/dL in a nonstressed, ambulatory subject supports the diagnosis of Diabetes Mellitus.No Panel InformationOrdered By: Dean Rodriguez on 16-06-6654Hwbhdbj Glucose CommentGlu2: cleaned [facility] HospitalGlu2: cleaned [facility] HospitalBasophils Auto (Bld) [#/Vol]Ordered By: Dean Rodriguez on 43-08-7022Qccwycaip (Bld) [#/Vol]0.1 10*3/uL0.0-0.2FProtestant Deaconess HospitalBasophils/100 WBC Auto (Bld)Ordered By: Dean Rodriguez on 11-28-9369Uffexopoh/100 WBC (Bld)1.1 %.[facility] Medical CenterBlood hemoglobin measurement (mass/volume)Ordered By: Dean Rodriguez on 11-08-2021 Hemoglobin (Bld) [Mass/Vol]11.6 g/dL11.8-15.4FProtestant Deaconess Hospital Blood leukocytes automated count (number/volume)Ordered By: Dean Rodriguez on 96-34-5888PEU (Bld) [#/Vol]8.6 10*3/uL3.8-11.6FProtestant Deaconess Hospital Clostridioides difficile toxin B tcdB gene [Presence] in Stool by NADINE with probe deteOrdered By: Dean Rodriguez on 11-08-2021. difficile toxin B tcdB gene NADINE+probe Ql (Stl)NegativeNegativeUniversity Hospitals Ahuja Medical CenterComment on above:Testing performed by RT-PCRCreatinine and Glomerular filtration rate.predicted panel (S/P/Bld)Ordered By: Dean Rodriguez on 86-88-6404Mvjsoijvgy [Mass/Vol]1.06 mg/dL0.44-1.03[facility] CenterEosinophils Auto (Bld) [#/Vol]Ordered By: Dean Rodriguez on 40-59-9258Orbjlmphiim (Bld) [#/Vol] 0.7 10*3/uL0.0-0.45[facility] CenterEosinophils/100 WBC Auto (Bld)Ordered By: Dean Rodriguez on 99-63-4539Lvzzdgminrm/100 WBC (Bld)8.5 %. [facility] CenterErythrocyte distribution width Auto (RBC) [Ratio]Ordered By: Dean Rodriguez on 02-44-9731Kuhejwmbbwn distribution width (RBC) [Ratio]17.3 %11.9-15.3FProtestant Deaconess HospitalEstimated glomerular filtration rate (GFR) non- AmericanOrdered By: Dean Rodriguez on 87-04-4313DJG/1.73 sq M.predicted among non-blacks MDRD (S/P/Bld) [Vol rate/Area]54 mL/MinUniversity Hospitals Ahuja Medical CenterHematocrit Auto (Bld) [Volume fraction]Ordered By: Dean Rodriguez on 20-23-7283Oebhjrobgy (Bld) [Volume fraction]36.5 %34.0-46.4FProtestant Deaconess HospitalLaboratory - Hematology and Cell countsOrdered By: Dean Rodriguez on 54-07-7659Jfiiarkwr RBC/100 WBC (Bld) [Ratio]0.1 %0-0.5FProtestant Deaconess HospitalLymphocytes Auto (Bld) [#/Vol]Ordered By: Dean Rodriguez on 71-79-6112Pioqudwbknf (Bld) [#/Vol]2.2 10*3/uL1.00-4.8[facility] Medical CenterLymphocytes/100 WBC Auto (Bld)Ordered By: Dean Rodriguez on 92-01-0666Rcrmdokblvb/100 WBC (Bld)25.5 %.[facility] CenterH Auto (RBC) [Entitic mass]Ordered By: Dean Rodriguez on 55-31-7161FYG (RBC) [Entitic mass]29.8 pg24.7-34.3FProtestant Deaconess HospitalMCHC Auto (RBC) [Mass/Vol]Ordered By: Dean Rodriguez on 43-28-9978YRWV (RBC) [Mass/Vol]31.7 g/dL32.0-35.0[facility] Medical CenterMCV Auto (RBC) [Entitic vol]Ordered By: Dean Rodriguez on 64-40-1763VEB (RBC) [Entitic vol]93.9 vW64-799LpydudlqlUniversity Hospitals Ahuja Medical CenterMonocytes Auto (Bld) [#/Vol]Ordered By: Dean Rodriguez on 32-73-1510Kevilneeo (Bld) [#/Vol]0.7 10*3/uL0.0-0.8[facility] Medical CenterMonocytes/100 WBC Auto (Bld) Ordered By: Dean Rodriguez on 01-11-4178Poaiunlgy/100 WBC (Bld)8.1 %.[facility] Medical CenterNeutrophils Auto (Bld) [#/Vol]Ordered By: Dean Rodriguez on 36-79-3561Wtalpkqsqvc (Bld) [#/Vol]4.9 10*3/uL1.8-7.7FProtestant Deaconess HospitalNeutrophils/100 WBC Auto (Bld)Ordered By: Dean Rodriguez on 99-27-9233Mrrkysmcoau/100 WBC (Bld)56.8 %.[facility] CenterNo Panel InformationOrdered By: Dean Rodriguez on [id number] GFR ()> 60 mL/MinUniversity Hospitals Ahuja Medical CenterComment on above:GFR estimated reference range: According to KDOQI guidelines, <60 ml/min/1.73m2 is sufficient todiagnose a patient with chronic kidney disease.Pharmacy Creatinine Clearance (Chem78.95[facility]8.6 10*3/uL4.5-11.0 [facility]0.1 %0-0.5FProtestant Deaconess Hospital> 60 mL/MinUniversity Hospitals Ahuja Medical Center78.95[facility] Peak vancomycin levelOrdered By: Dean Rodriguez on [id number] peak [Mass/Vol]26.2 ug/mL20.0-40.0[facility] CenterComment on above: Last dose: -Platelet mean volume Auto (Bld) [Entitic vol]Ordered By: Dean Rodriguez on 81-81-4419Qrcchtdz mean volume (Bld) [Entitic vol]7.5 fL6.3-10.7 [facility] CenterPlatelets Auto (Bld) [#/Vol]Ordered By: Dean Rodriguez on 48-66-6225Ayvvvrvlm (Bld) [#/Vol]253 10*3/uP698-314OpjcgrwkeUniversity Hospitals Ahuja Medical CenterRBC Auto (Bld) [#/Vol]Ordered By: Dean Rodriguez on 96-78-6834XBK (Bld) [#/Vol]3.89 10*6/uL3.60-5.00[facility]itan Hospitalerum or plasma calcium measurement (mass/volume)Ordered By: Dean Rodriguez on 11-08-2021 Calcium [Mass/Vol]8.3 mg/dL8.2-10.2FHolzer Medical Center – Jacksonerum or plasma chloride measurement (moles/volume)Ordered By: Dean Rodriguez on 39-07-5933Isocabzp [Moles/Vol]98 mmol/V69-537CzeipfyszUniversity Hospitals Ahuja Medical Center Serum or plasma creatinine measurement with calculation of estimated glomerular filtrOrdered By: Dean Rodriguez on 24-23-2194Daeuqtdslb and Glomerular filtration rate.predicted panel (S/P/Bld)1.06 mg/dL0.44-1.03[facility]itan Hospitalerum or plasma glucose measurement (mass/volume)Ordered By: Dean Rodriguez on 15-19-4725Nrycwal [Mass/Vol]222 mg/nI37-186ViehktlslUniversity Hospitals Ahuja Medical CenterComment on above:ADA recommended reference range Random Glucose Reference Range is dependent on time and content of last meal. Glucose of more than 200 mg/dL in a nonstressed, ambulatory subject supports the diagnosis of Diabetes Mellitus.ADA recommended reference rangeRandom Glucose Reference Range is dependent on time and content of last meal. Glucose of more than 200 mg/dL in a nonstressed, ambulatory subject supports the diagnosisof Diabetes Mellitus.Serum or plasma potassium measurement (moles/volume)Ordered By: Dean Rodriguez on 86-34-0931Tllkzflfe [Moles/Vol]3.7 mmol/L3.5-5.1FHolzer Medical Center – Jacksonerum or plasma sodium measurement (moles/volume)Ordered By: Dean Rodriguez on 89-90-4119Dvqbzp [Moles/Vol]136 mmol/U806-376DtcodfhgpSamaritan Hospitalerum or plasma total carbon dioxide measurement (moles/volume)Ordered By: Dean Rodriguez on 88-63-0281CJ2 [Moles/Vol]31.2 mmol/L 22.0-30.0[facility]itan Hospitalerum or plasma trough vancomycin levelOrdered By: Dean Rodriguez on 56-46-9846Frjstfjshy trough [Mass/Vol]15.3 ug/mL10.0-20.0[facility] CenterComment on above:Last dose: - Serum or plasma urea nitrogen measurement (mass/volume)Ordered By: Dean Rodriguez on 76-02-8504Aszo nitrogen [Mass/Vol]6 mg/dL9-23[facility] CenterABO and Rh group post transfusion reaction Nom (Bld)Ordered By: Zaid Mon on 80-92-7428Koirtranqcw observation Gram stain Nom (Unsp spec)[facility] CenterBacterial blood cultureOrdered By: Concetta Murphy on 57-48-5964Xkbwipvw identified Cx Nom (Bld)NO GROWTH 5 DAYS [facility] CenterArterial blood standard base excess determination by calculationOrdered By: Dean Rodriguez on 37-00-1948Nljh excess standard Calc (BldA) [Moles/Vol]7 mmol/Y-7-2YpilndqawProtestant Deaconess Hospital Blood carbon dioxide, total measurement by calculation (moles/volume)Ordered By: Dean Rodriguez on 23-11-7017VS5 Calc (Bld) [Moles/Vol]35 mmol/J50-62LmrzrivjoUniversity Hospitals Ahuja Medical CenterCT biopsyOrdered By: Dean Rodriguez on 60-86-8929RC .0 %38.0-51.0[facility] CenterHematocrit (Bld) [Volume fraction]41.0 %38.0-51.0[facility] Medical CenterGlucose Glucometer (BldC) [Mass/Vol]Ordered By: Dean Rodriguez on 26-90-6201Mzzydxd [Mass/Vol]131 mg/yP15-523YpxdeisfvUniversity Hospitals Ahuja Medical CenterHemoglobin Calc (Bld) [Mass/Vol] Ordered By: Dean Rodriguez on 97-54-4944Ifrslypfap (Bld) [Mass/Vol]13.9 g/dL 12.0-17.0[facility] CenterMonocyte %Ordered By: Dean Rodriguez on 86-24-4478Cnalrmkf %66.4 mm[Hg]35-51[facility] CenterMonocyte %22 mm[Hg]80-105[facility] CenterPotassium (Bld) [Moles/Vol] Ordered By: Dean Rodriguez on 33-42-6858Qwwukyktg [Moles/Vol]4.1 mmol/L3.5-4.9 [facility] Hospitalodium (Bld) [Moles/Vol]Ordered By: Dean Rodriguez on 23-20-1332Vbplpv [Moles/Vol]139 mmol/L281-232YlycnvxbzUniversity Hospitals Ahuja Medical CenterWhole blood bicarbonate measurementOrdered By: Dean Rodriguez on 58-16-5843CIM5 (Bld) [Moles/Vol]33.2 mmol/L22.0-28.0[facility] CenterWhole blood ionized calcium measurement (moles/volume)Ordered By: Dean Rodriguez on 33-88-3061Rwgsacs.ionized (Bld) [Moles/Vol]1190 mmol/L1.12-1.32 [facility] CenterWhole blood oxygen saturation measurement Ordered By: Dean Rodriguez on 01-19-1749Bmdyan saturation in Blood30 %95-98 [facility] CenterComment on above:Reference ranges reflect baseline specimens onlyWhole blood pHOrdered By: Dean Rodriguez on 90-50-8979vC (Bld)7.307 Units7.31-7.45[facility] CenterCholesterol [Mass/volume] in Serum or PlasmaOrdered By: Dean Rodriguez on 11-05-2021 Cholesterol [Mass/Vol]152 mg/cE351-511NzyqbyuzrUniversity Hospitals Ahuja Medical CenterComment on above:Chol less than 200 mg/dl low risk Chol 201-239 mg/dl borderline risk Chol 240 mg/dl and greater high riskChol less than 200 mg/dl low riskChol 201- 239 mg/dl borderline riskChol 240 mg/dl and greater high riskCholesterol in LDL Calc [Mass/Vol]Ordered By: Dean Rodriguez on 84-07-5954Ozgmxpjigzj in LDL [Mass/Vol]79 mg/dL0-100[facility] CenterComment on above:LDL ATP III CLASSIFICATION LDL less than 100 mg/dL Optimal LDL 100-129 mg/dL Near or above optimal LDL 130-159 mg/dL Borderline high LDL 160-189 mg/dL High LDL greater than 189 mg/dL Very highLDL ATP III CLASSIFICATIONLDL less than 100 mg/dL OptimalLDL 100-129 mg/dL Near or above zqznixcZGT448-647 mg/dL Borderline highLDL 160-189 mg/dL HighLDL greater than 189 mg/dL Very highCholesterol in VLDL Calc [Mass/Vol]Ordered By: Dean Rodriguez on 60-85-1565Nlzlgicofqh in VLDL [Mass/Vol]36 mg/dLSamaritan Hospitalerum or plasma high density lipoprotein (HDL) cholesterol measurementOrdered By: Dean Rodriguez on 24-26-3470Gkfdrijkwpb in HDL [Mass/Vol]36 mg/jU61-09IdrlhjkfqUniversity Hospitals Ahuja Medical CenterComment on above:HDL CHOL ATP-III CLASSIFICATION Cardiovascular Risk HDL > or equal to 60 mg/dL LOW HDL < 40 mg/dL HIGHHDL CHOL ATP-III CLASSIFICATION Cardiovascular RiskHDL > or equal to 60 mg/dL LOWHDL < 40 mg/dL HIGHSerum or plasma total cholesterol/high density lipoprotein (HDL) cholesterol mass ratOrdered By: Dean Rodriguez on 59-37-8804Xgwqmwajpop.total/Cholesterol in HDL [Mass ratio]4.2 {ratio}<5.0 [facility] Medical CenterTriglyceride [Mass/volume] in Serum or Plasma Ordered By: Dean Rodriguez on 11-35-8479Kbhylsiznxuw [Mass/Vol]183 mg/yJ23-213 [facility] CenterComment on above:TRIG ATP III CLASSIFICATION TRIG less than 150 mg/dL Normal TRIG 150-199 mg/dL Borderline high TRIG 200-500 mg/dL High TRIG greater than 500 mg/dL Very high Standard traceable to the Center for Disease Conrtrol and Prevention (CDC) test method.TRIG ATP III CLASSIFICATIONTRIG less than 150 mg/dL NormalTRIG 150-199 mg/dL Borderline highTRIG 200-500 mg/dL High TRIG greater than 500 mg/dL Very highStandard traceable to the Center for Disease Conrtrol and Prevention (CDC) test method.Bacteria identified Aer cx Nom (Unsp spec)Ordered By: Concetta Murphy on 73-14-6867Krijdanxcqz Wound CultureDiptheroidsUniversity Hospitals Ahuja Medical CenterAerobic cultureDiptUniversity Hospitals St. John Medical CenterCOVID- 19 Positive/NegativeOrdered By: Robles Owen on 39-29-6713AOOL-CoV-2 (COVID-19) N gene NADINE+probe Ql (Resp)NegativeNegativeUniversity Hospitals Ahuja Medical Center Comment on above:Testing for SARS-CoV-2 by RT-PCR This test was developed and its performance characteristics determined by [employer] ([place]) and validated at the [facility]. This test has not been FDA cleared [...] of time the declaration that circumstances exist ju stifying the authorization of the emergency use of in vitro diagnostic tests for detection of SARS-CoV-2 virus and/or diagnosis of COVID-19 infection under section 564(b)(1) of the Act, 21 U.S.C. 360bbb-3(b)(1), unless the authorization is terminated or revoked sooner.Testing for SARS-CoV-2 by RT-PCRThis test was developed and its performance characteristics determined by [employer] ([employer]) and validated at the [facility]. This test has not been FDA cleared [...] unless the authorization is terminated or revoked sooner.COVID-19 SOFIAOrdered By: Robles Owen on 11-04-2021 SARS-CoV+SARS-CoV-2 (COVID-19) Ag IA.rapid Ql (Resp)NegativeNegFirelands Regional Medical CenterComment on above:This is a duplicate Antonina SARS Antigen (TAMRA) result to be used for statistical tracking purpose only.No Panel InformationOrdered By: Robles Owen on 35-75-0398KYTY Antigen (LFIA)[facility] CenterBasophils Auto (Bld) [#/Vol]Ordered By: Concetta Murphy on 91-49-2428Vzniejict (Bld) [#/Vol]0.1 10*3/uL0.0-0.2FProtestant Deaconess HospitalBasophils/100 WBC Auto (Bld)Ordered By: Concetta Murphy on 11-02-2021 Basophils/100 WBC (Bld)0.9 %.[facility] CenterBlood hemoglobin measurement (mass/volume)Ordered By: Concetta Murphy on 44-01-6618Lfhobtktfa (Bld) [Mass/Vol]11.7 g/dL11.8-15.4FCherrington Hospital leukocytes automated count (number/volume)Ordered By: Concetta Murphy on 49-12-3794IGB (Bld) [#/Vol]13.2 10*3/uL3.8-11.6FProtestant Deaconess Hospital COVID-19 SOFIAOrdered By: Concetta Murphy on 48-06-0876ROKC-CoV+SARS-CoV-2 (COVID-19) Ag IA.rapid Ql (Resp)NegativeNegativeUniversity Hospitals Ahuja Medical CenterComment on above:This is a duplicate Antonina SARS Antigen (TAMRA) result to be used for statistical tracking purpose only.Creatinine and Glomerular filtration rate.predicted panel (S/P/Bld)Ordered By: Concetta Murphy on 11-02-2021 Creatinine [Mass/Vol]1.00 mg/dL0.44-1.03[facility] Eosinophils Auto (Bld) [#/Vol]Ordered By: Concetta Murphy on 11-02-2021 Eosinophils (Bld) [#/Vol]0.4 10*3/uL0.0-0.45[facility] Eosinophils/100 WBC Auto (Bld)Ordered By: Concetta Murphy on 11-02-2021 Eosinophils/100 WBC (Bld)3.0 %.[facility] CenterErythrocyte distribution width Auto (RBC) [Ratio]Ordered By: Concetta Murphy on 11-02-2021 Erythrocyte distribution width (RBC) [Ratio]17.6 %11.9-15.3FProtestant Deaconess HospitalEstimated glomerular filtration rate (GFR) non- Ordered By: Concetta Murphy on 71-37-3263FPN/1.73 sq M.predicted among non- blacks MDRD (S/P/Bld) [Vol rate/Area]58 mL/MinUniversity Hospitals Ahuja Medical Center Hematocrit Auto (Bld) [Volume fraction]Ordered By: Concetta Murphy on 11-02-2021 Hematocrit (Bld) [Volume fraction]37.1 %34.0-46.4FProtestant Deaconess HospitalLaboratory - Hematology and Cell countsOrdered By: Concetta Murphy on 36-10-1407Tmnjaqnvv RBC/100 WBC (Bld) [Ratio]0.1 %0-0.5FProtestant Deaconess HospitalLymphocytes Auto (Bld) [#/Vol]Ordered By: Concetta Murphy on 54-61-9775Idpkcascidl (Bld) [#/Vol]2.7 10*3/uL1.00-4.8[facility] CenterLymphocytes/100 WBC Auto (Bld)Ordered By: Concetta Murphy on 11-02-2021 Lymphocytes/100 WBC (Bld)20.7 %.[facility] Auto (RBC) [Entitic mass]Ordered By: Concetta Murphy on 88-06-4723VPD (RBC) [Entitic mass] 29.4 pg24.7-34.3FProtestant Deaconess HospitalMCHC Auto (RBC) [Mass/Vol] Ordered By: Concetta Murphy on 38-58-2684NRDA (RBC) [Mass/Vol]31.5 g/dL32.0-35.0 [facility] CenterMCV Auto (RBC) [Entitic vol]Ordered By: Concetta Murphy on 33-78-0243KFA (RBC) [Entitic vol]93.1 tN27-601LjcbpflgzUniversity Hospitals Ahuja Medical CenterMonocytes Auto (Bld) [#/Vol]Ordered By: Concetta Murphy on 48-63-4251Pxkumxhub (Bld) [#/Vol]0.7 10*3/uL0.0-0.8[facility] CenterMonocytes/100 WBC Auto (Bld)Ordered By: Concetta Murphy on 11-02-2021 Monocytes/100 WBC (Bld)5.6 %.[facility] Medical CenterNeutrophils Auto (Bld) [#/Vol]Ordered By: Concetta Murphy on 42-21-7466Ppssfvyzwfl (Bld) [#/Vol] 9.2 10*3/uL1.8-7.7FProtestant Deaconess HospitalNeutrophils/100 WBC Auto (Bld)Ordered By: Concetta Murphy on 43-86-9278Wjlpzltcemp/100 WBC (Bld)69.8 %. [facility] CenterNo Panel InformationOrdered By: Concetta Murphy on 59-90-2400Eboufiygc GFR ()> 60 mL/MinUniversity Hospitals Ahuja Medical CenterComment on above:GFR estimated reference range: According to KDOQI guidelines, <60 ml/min/1.73m2 is sufficient todiagnose a patient with chronic kidney disease.Pharmacy Creatinine Clearance (Chem78.01[facility]13.2 10*3/uL4.5-11.0[facility]0.1 %0-0.5 [facility]> 60 mL/MinUniversity Hospitals Ahuja Medical Center 78.01[facility]itan HospitalARS Antigen (LFIA)[facility] CenterPlatelet mean volume Auto (Bld) [Entitic vol]Ordered By: Concetta Murphy on 30-52-8140Rsncszvj mean volume (Bld) [Entitic vol]7.2 fL6.3-10.7 [facility] CenterPlatelets Auto (Bld) [#/Vol]Ordered By: Concetta Murphy on 57-77-8082Zqvymlfsg (Bld) [#/Vol]405 10*3/nF890-480InjpohptdUniversity Hospitals Ahuja Medical CenterRBC Auto (Bld) [#/Vol]Ordered By: Concetta Murphy on 23-13-2193JRC (Bld) [#/Vol]3.98 10*6/uL3.60-5.00[facility] Hospitalerum or plasma calcium measurement (mass/volume)Ordered By: Concetta Murphy on 19-06-2652Xwshscm [Mass/Vol]8.6 mg/dL8.2-10.2FHolzer Medical Center – Jacksonerum or plasma chloride measurement (moles/volume)Ordered By: Concetta Murphy on 27-92-1553Kcgxcamd [Moles/Vol]100 mmol/L77-151PwxhttefuSamaritan Hospitalerum or plasma creatinine measurement with calculation of estimated glomerular filtrOrdered By: Concetta Murphy on 96-30-6991Yxkgokdyop and Glomerular filtration rate.predicted panel (S/P/Bld)1.00 mg/dL0.44-1.03 [facility] Hospitalerum or plasma glucose measurement (mass/volume)Ordered By: Concetta Murphy on 71-20-2452Pkeijea [Mass/Vol]211 mg/uT96-735XppspcgdpUniversity Hospitals Ahuja Medical CenterComment on above:ADA recommended reference range Random Glucose Reference Range is dependent on time and content of last meal. Glucose of more than 200 mg/dL in a nonstressed, ambulatory subject supports the diagnosis of Diabetes Mellitus.ADA recommended reference rangeRandom Glucose Reference Range is dependent on time and content of last meal. Glucose of more than 200 mg/dL in a nonstressed, ambulatory subject supports the diagnosisof Diabetes Mellitus.Serum or plasma potassium measurement (moles/volume)Ordered By: Concetta Murphy on 71-90-5684Enzfmgpch [Moles/Vol]3.8 mmol/L3.5-5.1FHolzer Medical Center – Jacksonerum or plasma sodium measurement (moles/volume)Ordered By: Concetta Murphy on 32-65-3222Shqjst [Moles/Vol]138 mmol/Z528-902WnoiwngpeSamaritan Hospitalerum or plasma total carbon dioxide measurement (moles/volume)Ordered By: Concetta Murphy on 39-79-4777GM5 [Moles/Vol]27.1 mmol/L22.0-30.0[facility] Hospitalerum or plasma urea nitrogen measurement (mass/volume)Ordered By: Concetta Murphy on 66-86-6826Lory nitrogen [Mass/Vol]9 mg/dL9-23[facility] CenterUrine lactic acid measurementOrdered By: Concetta uMrphy on 10-71-1426Wdocsmc (U) [Moles/Vol]2.2 mmol/L0.5-2.2FProtestant Deaconess HospitalComment on above:Results called at 1657 on 11/02/21Results calledat 1657 on 11/02/21Glucose Glucometer (BldC) [Mass/Vol]Ordered By: Zaid Mon on 64-82-2232Zcwpjgk [Mass/Vol]162 mg/dLUniversity Hospitals Ahuja Medical CenterComment on above:Random Glucose Reference Range is dependent on time and content of last meal. Glucose of more than 200 mg/dL in a nonstressed, ambulatory subject supports the diagnosis of Diabetes Mellitus.No Panel InformationOrdered By: Zaid Mon on 60-47-4733Umvwxtk Glucose CommentGlu2: cleaned [facility] HospitalGlu2: cleaned [facility] HospitalBasophils Auto (Bld) [#/Vol] Ordered By: Zaid Mon on 42-92-5093Ribeduvus (Bld) [#/Vol]0.0 10*3/uL 0.0-0.2FProtestant Deaconess HospitalBasophils/100 WBC Auto (Bld)Ordered By: Zaid Mon on 42-48-1570Zgapxcfjo/100 WBC (Bld)0.2 %.[facility] CenterBlood hemoglobin measurement (mass/volume)Ordered By: Zaid Mon on 50-51-3058Wvbenfrpdm (Bld) [Mass/Vol]8.9 g/dL11.8-15.4FProtestant Deaconess HospitalBlood leukocytes automated count (number/volume)Ordered By: Zaid Mon on 85-92-6044XBB (Bld) [#/Vol]24.5 10*3/uL3.8-11.6 [facility] CenterCreatinine and Glomerular filtration rate.predicted panel (S/P/Bld)Ordered By: Zaid Mon on 10-14-2021 Creatinine [Mass/Vol]0.86 mg/dL0.44-1.03[facility] Eosinophils Auto (Bld) [#/Vol]Ordered By: Zaid Mon on 10-14-2021 Eosinophils (Bld) [#/Vol]0.0 10*3/uL0.0-0.45[facility] Eosinophils/100 WBC Auto (Bld)Ordered By: Zaid Mon on 10-14-2021 Eosinophils/100 WBC (Bld)0.1 %.[facility] CenterErythrocyte distribution width Auto (RBC) [Ratio]Ordered By: Zaid Mon on 05-19-6621Syhpgsoeteh distribution width (RBC) [Ratio]16.9 %11.9-15.3FProtestant Deaconess HospitalEstimated glomerular filtration rate (GFR) non- AmericanOrdered By: Zaid Mon on 84-26-2829QLD/1.73 sq M.predicted among non-blacks MDRD (S/P/Bld) [Vol rate/Area]> 60 mL/MinUniversity Hospitals Ahuja Medical CenterHematocrit Auto (Bld) [Volume fraction]Ordered By: Zaid Mon on 78-34-9789Pupkzuosrm (Bld) [Volume fraction]28.0 %34.0-46.4 [facility] CenterLaboratory - Hematology and Cell countsOrdered By: Zaid Mon on 79-88-3611Vdyebzqgf RBC/100 WBC (Bld) [Ratio]0.1 % 0-0.5FProtestant Deaconess HospitalLymphocytes Auto (Bld) [#/Vol]Ordered By: Zaid Mon on 99-03-7950Fjywgnjqeaf (Bld) [#/Vol]1.6 10*3/uL1.00-4.8 [facility] CenterLymphocytes/100 WBC Auto (Bld)Ordered By: Zaid Mon on 73-75-1554Afuflccbjil/100 WBC (Bld)6.4 %.[facility] Medical CenterMCH Auto (RBC) [Entitic mass]Ordered By: Zaid Mon on 73-57-0285WIW (RBC) [Entitic mass]29.8 pg24.7-34.3FProtestant Deaconess HospitalMCHC Auto (RBC) [Mass/Vol]Ordered By: Zaid Mon on 16-93-3837LXZI (RBC) [Mass/Vol]31.8 g/dL32.0-35.0[facility] CenterMCV Auto (RBC) [Entitic vol]Ordered By: Zaid Mon on 10-14-2021 MCV (RBC) [Entitic vol]93.5 yS65-791VptsdopbhUniversity Hospitals Ahuja Medical CenterMonocytes Auto (Bld) [#/Vol]Ordered By: Zaid Mon on 13-87-5481Eqawkiuwk (Bld) [#/Vol]1.1 10*3/uL0.0-0.8[facility] Medical CenterMonocytes/100 WBC Auto (Bld)Ordered By: Zaid Mon on 96-99-9488Mobkfqgbj/100 WBC (Bld)4.4 %. [facility] Medical CenterNeutrophils Auto (Bld) [#/Vol]Ordered By: Zaid Mon on 38-45-5071Cubolimlknf (Bld) [#/Vol]21.8 10*3/uL1.8-7.7 [facility] CenterNeutrophils/100 WBC Auto (Bld)Ordered By: Zaid Mon on 49-22-2097Nrgiprcfdgr/100 WBC (Bld)88.9 %.[facility] CenterNo Panel InformationOrdered By: Zaid Mon on 63-61-7015Xuzpvsudm GFR ()> 60 mL/MinUniversity Hospitals Ahuja Medical CenterComment on above:GFR estimated reference range: According to KDOQI guidelines, <60 ml/min/1.73m2 is sufficient todiagnose a patient with chronic kidney disease.Pharmacy Creatinine Clearance (Chem94.09[facility]24.5 10*3/uL4.5-11.0[facility]0.1 %0-0.5 [facility]> 60 mL/MinUniversity Hospitals Ahuja Medical Center 94.09[facility] CenterPlatelet mean volume Auto (Bld) [Entitic vol]Ordered By: Zaid Mon on 27-10-2484Fgzbzkym mean volume (Bld) [Entitic vol]7.0 fL6.3-10.7FProtestant Deaconess HospitalPlatelets Auto (Bld) [#/Vol]Ordered By: Zaid Mon on 07-46-6547Yqsptpxnf (Bld) [#/Vol]536 10*3/fI356-282KpjbnfmruUniversity Hospitals Ahuja Medical CenterRBC Auto (Bld) [#/Vol]Ordered By: Zaid Mon on 83-94-3183VLF (Bld) [#/Vol]3.00 10*6/uL3.60-5.00[facility] Hospitalerum or plasma calcium measurement (mass/volume)Ordered By: Zaid Mon on 30-73-2004Rhhdjjh [Mass/Vol]8.5 mg/dL8.2-10.2 [facility] Hospitalerum or plasma chloride measurement (moles/volume)Ordered By: Zaid Mon on 84-34-4574Kftfyclg [Moles/Vol] 100 mmol/A36-112DucmaqsitSamaritan Hospitalerum or plasma creatinine measurement with calculation of estimated glomerular filtrOrdered By: Zaid Mon on 15-37-5321Bzotialyib and Glomerular filtration rate.predicted panel (S/P/Bld)0.86 mg/dL0.44-1.03[facility] Hospitalerum or plasma glucose measurement (mass/volume)Ordered By: Zaid Mon on 35-19-5771Swwhele [Mass/Vol]189 mg/pS87-411SsodxdjqgUniversity Hospitals Ahuja Medical Center Comment on above:ADA recommended reference range Random Glucose Reference Range is dependent on time and content of last meal. Glucose of more than 200 mg/dL in a nonstressed, ambulatory subject supports the diagnosis of Diabetes Mellitus.ADA recommended reference rangeRandom Glucose Reference Range is dependent on time and content of last meal. Glucose of more than 200 mg/dL in a nonstressed, ambulatory subject supports the diagnosisof Diabetes Mellitus.Serum or plasma potassium measurement (moles/volume)Ordered By: Zaid Mon on 48-99-4372Donkucftn [Moles/Vol]4.1 mmol/L3.5-5.1 [facility] Hospitalerum or plasma sodium measurement (moles/volume)Ordered By: Zaid Mon on 67-29-9594Xjrxvw [Moles/Vol]136 mmol/M907-005WsbgpbndjSamaritan Hospitalerum or plasma total carbon dioxide measurement (moles/volume)Ordered By: Zaid Mon on 10-14-2021 CO2 [Moles/Vol]29.3 mmol/L22.0-30.0[facility]itan Hospitalerum or plasma urea nitrogen measurement (mass/volume)Ordered By: Zaid Mon on 95-15-7974Zauj nitrogen [Mass/Vol]11 mg/dL9-23[facility] Blood activated clotting time by coagulation assayOrdered By: Zaid Mon on 99-30-4124XAN Coag (Bld)242 [phone] Hospitals Ahuja Medical CenterComment on above:Reference Range: 90-139 (Non-heparinized)Bacteria identified Anaer cx Nom (Unsp spec)Ordered By: Thanh Torres on 80-85-0831Yzeorwmed microbial cultureNo Anaerobes Isolated 3 DaysUniversity Hospitals Ahuja Medical CenterCOVID-19 Positive/NegativeOrdered By: Zaid Mon on 32-70-8504SSES-CoV-2 (COVID- 19) N gene NADINE+probe Ql (Resp)NegativeNegativeUniversity Hospitals Ahuja Medical Center Comment on above:Testing for SARS-CoV-2 by RT-PCR This test was developed and its performance characteristics determined by [employer] ([employer]) and validated at the [facility]. This test has not been FDA cleared [...] of time the declaration that circumstances exist ju stifying the authorization of the emergency use of in vitro diagnostic tests for detection of SARS-CoV-2 virus and/or diagnosis of COVID-19 infection under section 564(b)(1) of the Act, 21 U.S.C. 360bbb-3(b)(1), unless the authorization is terminated or revoked sooner.Testing for SARS-CoV-2 by RT-PCRThis test was developed and its performance characteristics determined by [employer] ([employer]) and validated at the [facility]. This test has not been FDA cleared [...] unless the authorization is terminated or revoked sooner.Glucose Glucometer (BldC) [Mass/Vol]Ordered By: Adithya Rm on 48-79-5386Bolgqvg [Mass/Vol]153 mg/dLUniversity Hospitals Ahuja Medical CenterComment on above:Random Glucose Reference Range is dependent on time and content of last meal. Glucose of more than 200 mg/dL in a nonstressed, ambulatory subject supports the diagnosis of Diabetes Mellitus.Triglyceride [Mass/volume] in Serum or PlasmaOrdered By: Clyde Luna on 10-09-2021 Triglyceride [Mass/Vol]82 mg/zD81-868YruklccjiUniversity Hospitals Ahuja Medical CenterComment on above:TRIG ATP III CLASSIFICATION TRIG less than 150 mg/dL Normal TRIG 150-199 mg/dL Borderline high TRIG 200-500 mg/dL High TRIG greater than 500 mg/dL Very high Standard traceable to the Center for Disease Conrtrol and Prevention (CDC) test method.TRIG ATP III CLASSIFICATIONTRIG less than 150 mg/dL NormalTRIG 150-199 mg/dL Borderline highTRIG 200-500 mg/dL High TRIG greater than 500 mg/dL Very highStandard traceable to the Center for Disease Conrtrol and Prevention (CDC) test method.ABO and Rh group post transfusion reaction Nom (Bld)Ordered By: ATUUMN Torres on 59-13-7165Zcomndjkaxw observation Gram stain Nom (Unsp spec) [facility] CenterAlbumin [Mass/volume] in Serum or PlasmaOrdered By: Adithya Rm on 85-98-4083Kjddwmi [Mass/Vol]2.6 g/dL3.2-5.5 [facility] CenterBasophils Auto (Bld) [#/Vol]Ordered By: Clyde Luna on 94-96-3994Czjhkaxhp (Bld) [#/Vol]0.1 10*3/uL0.0-0.2FProtestant Deaconess HospitalBasophils/100 WBC Auto (Bld)Ordered By: Clyde Luna on 10-08-2021 Basophils/100 WBC (Bld)0.6 %.[facility] CenterBlood hemoglobin measurement (mass/volume)Ordered By: Clyde Luna on 36-75-0266Ysjaivwgnj (Bld) [Mass/Vol]9.3 g/dL11.8-15.4FProtestant Deaconess HospitalBlmeeker memorial hospital leukocytes automated count (number/volume)Ordered By: Clyde Luna on 17-80-4539FIJ (Bld) [#/Vol]17.4 10*3/uL3.8-11.6FProtestant Deaconess HospitalCreatinine and Glomerular filtration rate.predicted panel (S/P/Bld)Ordered By: Adithya Rm on 36-19-5326Zttscuoxmw [Mass/Vol]0.77 mg/dL0.44-1.03[facility] CenterEosinophils Auto (Bld) [#/Vol]Ordered By: Clyde Luna on 62-09-6652Pufrtrexria (Bld) [#/Vol]0.4 10*3/uL0.0-0.45[facility] CenterEosinophils/100 WBC Auto (Bld)Ordered By: Clyde Luna on 03-86-2108Zxjzwcenkbr/100 WBC (Bld)2.3 %.[facility] Erythrocyte distribution width Auto (RBC) [Ratio]Ordered By: Clyde Luna on 89-20-1273Hqnxzhrmaaz distribution width (RBC) [Ratio]16.6 %11.9-15.3FProtestant Deaconess HospitalEstimated glomerular filtration rate (GFR) non- AmericanOrdered By: Adithya Rm on 30-94-9872YQR/1.73 sq M.predicted among non-blacks MDRD (S/P/Bld) [Vol rate/Area]> 60 mL/MinUniversity Hospitals Ahuja Medical CenterGlobulin Calc (S) [Mass/Vol]Ordered By: Adithya Rm on 65-95-8427Mrykmicb (S) [Mass/Vol]3.6 g/dLUniversity Hospitals Ahuja Medical Center Hematocrit Auto (Bld) [Volume fraction]Ordered By: Clyde Luna on 10-08-2021 Hematocrit (Bld) [Volume fraction]27.8 %34.0-46.4FProtestant Deaconess HospitalLaboratory - Hematology and Cell countsOrdered By: Clyde Luna on 78-27-2662Qrwulyjwb RBC/100 WBC (Bld) [Ratio]0.4 %0-0.5FProtestant Deaconess HospitalLymphocytes Auto (Bld) [#/Vol]Ordered By: Clyde Luna on 66-09-2498Ycpekqjeuep (Bld) [#/Vol]2.0 10*3/uL1.00-4.8[facility] CenterLymphocytes/100 WBC Auto (Bld)Ordered By: Clyde Luna on 10-08-2021 Lymphocytes/100 WBC (Bld)11.5 %.[facility] CenterMCH Auto (RBC) [Entitic mass]Ordered By: Clyde Luna on 87-91-3965UTQ (RBC) [Entitic mass]30.9 pg24.7-34.3FProtestant Deaconess HospitalMCHC Auto (RBC) [Mass/Vol]Ordered By: Clyde Luna on 16-60-1851EBYV (RBC) [Mass/Vol]33.5 g/dL32.0-35.0[facility] CenterMCV Auto (RBC) [Entitic vol]Ordered By: Clyde Jeremy on 91-35-1222ZVE (RBC) [Entitic vol]92.3 kD90-538ScnlukqcoUniversity Hospitals Ahuja Medical Center Monocytes Auto (Bld) [#/Vol]Ordered By: Clyde Jeremy on 74-44-5758Ntublqpkr (Bld) [#/Vol]1.0 10*3/uL0.0-0.8[facility] CenterMonocytes/100 WBC Auto (Bld)Ordered By: Clyde Jeremy on 35-77-8790Prxdtrqcw/100 WBC (Bld)5.8 % .[facility] CenterNeutrophils Auto (Bld) [#/Vol]Ordered By: Clyde Jeremy on 17-49-7050Vzdyddaazjw (Bld) [#/Vol]13.9 10*3/uL1.8-7.7FProtestant Deaconess HospitalNeutrophils/100 WBC Auto (Bld)Ordered By: Clyde Luna on 25-44-9817Pjxkbmhmzmc/100 WBC (Bld)79.8 %.[facility] CenterNo Panel InformationOrdered By: Adithya Rm on 72-38-9493Gikfvlg Glucose CommentGlu2: cleaned [facility] HospitalGlu2: cleaned meter [facility] CenterEstimated GFR ()> 60 mL/Min [facility] CenterComment on above:GFR estimated reference range: According to KDOQI guidelines, <60 ml/min/1.73m2 is sufficient todiagnose a patient with chronic kidney disease.Pharmacy Creatinine Clearance (Qttv834.93 [facility]> 60 mL/MinUniversity Hospitals Ahuja Medical Center 110.93[facility] CenterNo Panel InformationOrdered By: Clyde Luna on 24-15-265944.4 10*3/uL4.5-11.0[facility]0.4 % 0-0.5FProtestant Deaconess HospitalPlatelet mean volume Auto (Bld) [Entitic vol]Ordered By: Clyde Luna on 42-62-6561Panjmboq mean volume (Bld) [Entitic vol]7.3 fL6.3-10.7FProtestant Deaconess HospitalPlatelets Auto (Bld) [#/Vol] Ordered By: Clyde Luna on 34-39-9181Ymaizheys (Bld) [#/Vol]451 10*3/nT439-442 [facility] CenterProtein [Mass/volume] in Serum or PlasmaOrdered By: Adithya Rm on 90-77-6934Ofgakms [Mass/Vol]6.2 g/dL6.1-7.9 [facility] CenterRBC Auto (Bld) [#/Vol]Ordered By: Clyde Luna on 44-57-8276ULM (Bld) [#/Vol]3.01 10*6/uL3.60-5.00Samaritan Hospitalerum or plasma alanine aminotransferase measurement without P-5'-P (enzymatic activiOrdered By: Adithya Rm on 29-57-1325VOM No additional P-5'-P [Catalytic activity/Vol]16 U/A32-53UnpkjwvzgUniversity Hospitals Ahuja Medical Center Serum or plasma albumin/globulin mass ratioOrdered By: Adithya Rm on 55-81-4473Jcrvczs/Globulin [Mass ratio]0.7 {ratio}[facility] Hospitalerum or plasma alkaline phosphatase measurement (enzymatic activity/volume)Ordered By: Adithya Rm on 86-47-1234YTG [Catalytic activity/Vol]73 U/U75-38CheltgocjSamaritan Hospitalerum or plasma aspartate aminotransferase measurement (enzymatic activity/volume)Ordered By: Adithya Rm on 19-63-8124CWX [Catalytic activity/Vol]18 U/L10-42 [facility] Hospitalerum or plasma calcium measurement (mass/volume)Ordered By: Adithya Rm on 11-45-8931Nvrndfk [Mass/Vol]8.5 mg/dL8.2-10.2FHolzer Medical Center – Jacksonerum or plasma chloride measurement (moles/volume)Ordered By: Adithya Rm on 11-19-4049Lyitmmwe [Moles/Vol]102 mmol/D55-052TxlyzlpklSamaritan Hospitalerum or plasma creatinine measurement with calculation of estimated glomerular filtrOrdered By: Adithya Rm on 24-98-5915Jgfjyresff and Glomerular filtration rate.predicted panel (S/P/Bld)0.77 mg/dL0.44-1.03[facility] Hospitalerum or plasma glucose measurement (mass/volume)Ordered By: Adithya Rm on 33-78-2446Kkzywih [Mass/Vol]131 mg/cK43-790EreuebsofUniversity Hospitals Ahuja Medical CenterComment on above:ADA recommended reference range Random Glucose Reference Range is dependent on time and content of last meal. Glucose of more than 200 mg/dL in a nonstressed, ambulatory subject supports the diagnosis of Diabetes Mellitus.ADA recommended reference rangeRandom Glucose Reference Range is dependent on time and content of last meal. Glucose of more than 200 mg/dL in a nonstressed, ambulatory subject supports the diagnosisof Diabetes Mellitus.Serum or plasma potassium measurement (moles/volume)Ordered By: Adithya Rm on 46-20-0144Hjvwvxamw [Moles/Vol]3.8 mmol/L3.5-5.1 [facility] Hospitalerum or plasma sodium measurement (moles/volume)Ordered By: Adithya Rm on 37-77-9509Aitrxm [Moles/Vol] 137 mmol/N797-928JcahmvqxaSamaritan Hospitalerum or plasma total bilirubin measurement (mass/volume)Ordered By: Adithya Rm on 28-00-2696Eibcjfrif [Mass/Vol]1.1 mg/dL0.3-1.2FProtestant Deaconess Hospital Serum or plasma total carbon dioxide measurement (moles/volume)Ordered By: Adithya Rm on 70-92-2241OX1 [Moles/Vol]28.3 mmol/L22.0-30.0[facility] Hospitalerum or plasma urea nitrogen measurement (mass/volume) Ordered By: Adithya Rm on 43-86-3189Dgir nitrogen [Mass/Vol]6 mg/dL 9-23[facility] CenterBacterial blood cultureOrdered By: Ankur Mahan on 29-89-8229Rnyjlhup identified Cx Nom (Bld)NO GROWTH 5 DAYSUniversity Hospitals Ahuja Medical CenterLaboratory - Chemistry and Chemistry - challengeOrdered By: Clyde Jeremy on 84-01-5041Shysbmyop [Mass/Vol]1.6 mg/dL1.6-2.6FProtestant Deaconess HospitalNo Panel InformationOrdered By: Clyde Luna on .6 mg/dL1.6-2.6FProtestant Deaconess HospitalActivated partial thromboplastin time (aPTT) in platelet poor plasma by coagulation aOrdered By: Juliane Campbell on 61-09-3864uDMN Coag (PPP) [Time]27.0 s25.1-36.5FProtestant Deaconess HospitalLaboratory - CoagulationOrdered By: Juliane Campbell on 08-49-4475FT Coag (PPP) [Time]13.1 s9.0-12.9[facility] CenterNo Panel InformationOrdered By: Juliane Campbell on 63-97-200893.1 s9.0-12.9[facility] CenterPlatelet poor plasma international normalized ratio (INR) by coagulation assay (relatOrdered By: Juliane Campbell on 14-21-9569MJO Coag (PPP) [Relative time]1.2 {INR}[facility] CenterComment on above:INR Therapeutic Range A) Pre- and Peroperative OAT started two weeks before surgery. NOT HIP SURGERY: 1.5 - 2.5 HIP SURGERY: 2 - 3 B) Primary and secondary prevention of venous THROMBOSIS: 2 - 3 C) Active venous thrombosis, pulmonary embolism and prevention of recurrent venous thrombosis: 2 - 3 D) Prevention of arterial thromboembolism including patients with mechanical heart valves: 3 - 4.5INR Therapeutic Range A) Pre- and Peroperative OAT started two weeks before surgery. NOT HIP SURGERY: 1.5 - 2.5 HIP SURGERY: 2 - 3B) Primary and secondary prevention of venous THROMBOSIS: 2 - 3C) Active venous thrombosis, pulmonary embolismand prevention of recurrent venous thrombosis: 2 - 3D) Prevention of arterial thromboembolismincluding patients with mechanical heart valves: 3 - 4.5Glucose mean value [Mass/volume] in Blood Estimated from glycated hemoglobinOrdered By: Elise Marie on 57-68-9692Ujcxkav glucose Estimated from glycated hemoglobin (Bld) [Mass/Vol]146 mg/dLUniversity Hospitals Ahuja Medical CenterHemoglobin A1c percentageOrdered By: Elise Brianajoselineumberto on 16-50-1955DfX0o (Bld) [Mass fraction] 6.7 %4.3-5.6FProtestant Deaconess HospitalComment on above:Increased risk for diabetes: 5.7 - 6.4 diabetes: >6.4 glycemic control for adults with diabetes: <7.0Increased risk for diabetes: 5.7 - 6.4diabetes: >6.4glycemic control for adults with diabetes: <7.0C reactive protein [Mass/volume] in Serum or PlasmaOrdered By: Ankur Mahan on 86-09-7571VJH [Mass/Vol]0.6 mg/dL0.0-1.0[facility] CenterCOVID-19 Positive/NegativeOrdered By: Ankur Mahan on 00-74-5720RUJO-CoV-2 (COVID-19) N gene NADINE+probe Ql (Resp)NegativeNegativeUniversity Hospitals Ahuja Medical CenterComment on above:Testing for SARS-CoV-2 by RT-PCR This test was developed and its performance characteristics determined by [employer] ([employer]) and validated at the [facility]. This test has not been FDA cleared [...] of time the declaration that circumstances exist ju stifying the authorization of the emergency use of in vitro diagnostic tests for detection of SARS-CoV-2 virus and/or diagnosis of COVID-19 infection under section 564(b)(1) of the Act, 21 U.S.C. 360bbb-3(b)(1), unless the authorization is terminated or revoked sooner.Testing for SARS-CoV-2 by RT-PCRThis test was developed and its performance characteristics determined by [employer] ([employer]) and validated at the [facility]. This test has not been FDA cleared [...] unless the authorization is terminated or revoked sooner.COVID-19 SOFIAOrdered By: Ankur Mahan on 09-27-2021 SARS-CoV+SARS-CoV-2 (COVID-19) Ag IA.rapid Ql (Resp)NegativeNegativeUniversity Hospitals Ahuja Medical CenterComment on above:This is a duplicate Antonina SARS Antigen (TAMRA) result to be used for statistical tracking purpose only.Erythrocyte sedimentation rate by Photometric methodOrdered By: Ankur Mahan on 30-15-1438PYV Photometric method (Bld) [Velocity]21 mm/hr0-29[facility] CenterNo Panel InformationOrdered By: Ankur Mahan on 51-60-8151WOUI Antigen (LFIA)[facility] CenterTS DL <= 0.005 mIU/L QnOrdered By: Yung David on 20-57-4643KQT Qn7.23 m[IU]/L0.45-5.33[facility] CenterFree T4on 66-14-6920Zwdv T4 [Mass/Vol]1.65 ng/dLNormal0.80-1.80 [facility] CenterComment on above:Performed By: #### TSH, FT4 #### [facility] [address] [place], [place] [id number] A1Con 03-58-8164DFU895.42NormalNortMercy HealthComment on above:Performed By: #### A1C #### [facility] [address] [place], [place] [id number] (Bld) [Mass fraction]7.6 %High4.0-6.0[facility] [place] SpecialistComment on above:Performed By: #### A1C #### [facility] [address] [place], [place] [id number] 23-35-6416ZYU Qnm[IU]/LLowNorthern Sycamore Shoals Hospital, [place] SpecialistComment on above:Performed By: #### TSH, FT4 #### [facility] [address], [place] [id number] Panel InformationAultman Orr[facility] Vital Signs Date TimeVital SignValuePerforming KkoqgoxujVofetsnk60-38-6036 12:00-0400 Diastolic blood ydkbfpwr61 mm[Hg]Jarvis Thrasher MD Work Phone: [facility]10-19-2025 12:00-0400 Heart rate69 /minJarvis Thrasher MD Work Phone: [facility]10-19-2025 12:00-0400 Respiratory rate16 /minJarvis Thrasher MD Work Phone: [phone])156-[address] [place], [place] [address]010-19-2025 12:00-0400 SaO2% (BldA) [Mass fraction]99 %Jarvis Thrasher MD Work Phone: [facility]10-19-2025 12:00-0400 Systolic blood gwftfpyk985 mm[Hg]Jarvis Thrasher MD Work Phone: [facility]10-19-2025 07:39-0400 Body wkkypitwbmn11.5 [degF]Jarvis Thrasher MD Work Phone: [facility]10-19-2025 05:00-0400 Body vqotfd996.3 kgJarvis Thrasher MD Work Phone: [facility]10-17-2025 23:21-0400 Body jomvuu063.1 Mariana Thrasher MD Work Phone: [facility]10-17-2025 22:34-0400 Diastolic blood omgeeqtc169 mm[Hg]Jarvis Thrasher MD Work Phone: [phone] [place], [place] [address]84010-17-2025 22:34-0400 Heart snuv043 /minJarvis Thrasher MD Work Phone: [phone]10-17-2025 22:34-0400 Respiratory rate18 /minJarvis Thrasher MD Work Phone: [phone] [place], [place] [address]84010-17-2025 22:34-0400 SaO2% (BldA) [Mass fraction]99 %Jarvis Thrasher MD Work Phone: [phone])[address]10-17-2025 22:34-0400 Systolic blood ysfnbpsh980 mm[Hg]Jarvis Thrasher MD Work Phone: [phone] [place], [place] [address]463[address]-17-2025 13:57-0400 Body fuhaiz553.1 Mariana Thrasher MD Work Phone: [phone]10-17-2025 13:57-0400 Body rfxyuidkjzi72.2 [degF]Jarvis Thrasher MD Work Phone: [phone])[address] [place], [place] [address]463[address]-17-2025 13:57-0400 Body nbawft696 kgJarvis Thrasher MD Work Phone: [phone]09-30-2025 14:07-0400 Body ytbutz559.1 cmRay Hays DPM Work Phone: [facility] CenterHqzoeahkyq96-97-8840 14:07-0400Body mass index (BMI) [Ratio]42.77 kg/w9LcxvveofRay Hays DPM Work Phone: [facility] CenterZfelqtdxwp88-85-9016 14:07-0400Body ptvokk536.57 kgRay Hays DPM Work Phone: [facility] CenterJyyeijbjmq74-19-3162 14:07-0400Respiratory rate18 /minRay Hays DPM Work Phone: [facility] CenterLvanzgeywo34-43-7842 14:07-0400Body kafjuz770.1 cmSummer Workman PA Work Phone: [facility] CenterCbjyxitdoc47-54-0385 14:07-0400Body mass index (BMI) [Ratio]42.77 kg/i6Hcqvpp Workman PA Work Phone: [place] [address]Eeqpbebikb37-15-8627 14:07-0400Body dxentt463.57 kgSuamg specialty hospital Workman PA Work Phone: [place] [address]Drxzjtdjee23-57-7080 14:07-0400Diastolic blood mm[Hg]Summer Workman PA Work Phone: [place] [address]Skejoehqrs67-02-1424 14:07-0400Heart rate87 /min [facility] Workman PA Work Phone: [place] [address]Lokbjqrjla70-06-8745 14:07-8418RgX0% (BldA) [Mass fraction]92 %[facility] Workman PA Work Phone: [place] [address]Fazxmvvvdv68-50-1678 14:07-0400Systolic blood pfufaqzb452 mm[Hg][facility] Workman PA Work Phone: [facility] CenterNqdqeiglua99-66-2591 14:46-0400Body cqsaep079.1 cmNicholas Brown DPM Work Phone: [facility] CenterCbvfiybuuc93-03-4186 14:46-0400Body mass index (BMI) [Ratio]42.1 kg/h7Qkeloiay Brown DPM Work Phone: [facility] CenterUuyynfctbb05-62-4967 14:46-0400Body pkpaty559.76 kgNicholas Brown DPM Work Phone: [place] [address]Bpusmairyy76-70-5435 14:46-0400Respiratory rate16 /minNicholas Brown DPM Work Phone: [facility] CenterLgvuayfqqa70-62-2507 15:56-0400Body .1 cmNicholas Brown DPM Work Phone: [facility] CenterIjsroxqqqs11-22-2455 15:56-0400Body mass index (BMI) [Ratio]42.1 kg/o4Iaklskze Brown DPM Work Phone: [place] [phone] 15:56-0400Body jrapve558.76 kgRay Hays DPM Work Phone: [place] [phone] 15:56-0400Respiratory rate16 /minRay Hays DPM Work Phone: [facility] CenterLikyfoljik01-35-6118 14:14-0400Body .[address] ROLLER OPERATOR [employer] Work Phone: NOSaint [facility] HospitalAmtjvikazq41-18-1535 14:14-0400Body mass index (BMI) [Ratio]42.22 kg/v0Ejapjzqjosh Wild [address] ROLLER OPERATOR [employer] Work Phone: [place] [address]Iuetbqhpkp22-61-4784 14:14-0400Body tizmrl229.[address] ROLLER OPERATOR [employer] Work Phone: noSaint [facility] HospitalWzmbpqohrq94-57-9082 14:14-0400Diastolic blood qezjlhii22 mm[Hg]Mavis Gillian RO[address] ROLLER OPERATOR [employer] Work Phone: NOSaint [facility] HospitalKgvusbveed71-88-1016 14:14-0400Heart rate78 /min Mavis Gillian [address] ROLLER OPERATOR [employer] Work Phone: [place] [address]Oxleebpmzs31-74-7342 14:14-4260TcB1% (BldA) [Mass fraction]94 %Mavis Gillian [address] ROLLER OPERATOR [employer] Work Phone: [place] [address]Jofzfezomb90-65-6571 14:14-0400Systolic blood swzneaik529 mm[Hg]Mavis Wild [address] ROLLER OPERATOR [employer] Work Phone: NOSaint [facility] HospitalAbwiceghay33-95-9313 08:00-0400Body temperature 97.8 [degF]Jarvis Thrasher MD Work Phone: [facility]08-10-2025 08:00-0400 Diastolic blood cefgqgtp90 mm[Hg]Jarvis Thrasher MD Work Phone: [facility]08-10-2025 08:00-0400 Heart rate66 /minJarvis Thrasher MD Work Phone: [facility]08-10-2025 08:00-0400 Respiratory rate18 /minJarvis Thrasher MD Work Phone: [phone] [place], [place] [address]008-10-2025 08:00-0400 SaO2% (BldA) [Mass fraction]93 %Jarvis Thrasher MD Work Phone: [facility]08-10-2025 08:00-0400 Systolic blood feivgyqn539 mm[Hg]Jarvis Thrasher MD Work Phone: 1(852)365-[address] [place], [place] 2984008-10-2025 03:57-0400 Body epveua487.5 kgJarvis Thrasher MD Work Phone: [phone]08-08-2025 11:04-0400 Body .1 Mariana Thrasher MD Work Phone: [phone]08-08-2025 03:00-0400 Diastolic blood lntzfeaj33 mm[Hg]Jarvis Thrasher MD Work Phone: 1(087)114-[address] [place], [place] 2984008-08-2025 03:00-0400 Heart rate92 /minJarvis Thrasher MD Work Phone: 1(287)564-[address] [place], [place] 2984008-08-2025 03:00-0400 Respiratory rate16 /minJarvis Thrasher MD Work Phone: [phone])594-[address] [place], [place] [address]008-08-2025 03:00-0400 SaO2% (BldA) [Mass fraction]95 %Jarvis Thrasher MD Work Phone: [facility]08-08-2025 03:00-0400 Systolic blood jizzxaye021 mm[Hg]Jarvis Thrasher MD Work Phone: [facility]08-07-2025 23:57-0400 Body .1 Mariana Thrasher MD Work Phone: [facility]08-07-2025 23:57-0400 Body hmvxil552.5 kgJarvis Thrasher MD Work Phone: [facility]08-07-2025 23:56-0400 Body ywjuworamrw43.1 [degF]Jarvis Thrasher MD Work Phone: [facility]08-05-2025 14:26-0400 Body wgqqaf996.[address] ROLLER 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 [employer] Work Phone: [facility] CenterUjjoksynpu08-44-0102 14:26-0400Body mass index (BMI) [Ratio]43.43 kg/m2Gina Risaliti RO[address] ROLLER OPERATOR [employer] Work Phone: [facility] CenterBimmohbibt28-14-8462 14:26-0400Body slbaxw449.[address] ROLLER OPERATOR [employer] Work Phone: [facility] CenterRqgjbdbtmj51-00-5433 14:26-0400Diastolic blood qbxyjuzi15 mm[Hg]Claudy Risaliti [address] ROLLER OPERATOR [employer] Work Phone: 1(656)949-[address] [place], [place] [address]Fzrufkoinm27-58-4445 14:26-0400Heart rate77 /min Claudy Risal[address] ROLLER OPERATOR [employer] Work Phone: [facility] CenterJfkrayygba84-94-4348 14:26-0845ScL0% (BldA) [Mass fraction]95 %Claudy Risaliti [address] ROLLER OPERATOR [employer] Work Phone: [facility] CenterQninfpdfhl30-56-8446 14:26-0400Systolic blood mm[Hg]Claudy Risaliti [address] ROLLER OPERATOR [employer] Work Phone: [facility] CenterDhlsbclbii64-10-6376 12:40-0400Diastolic blood bipswuzn07 mm[Hg]Jarvis Thrasher MD Work Phone: [facility]07-28-2025 12:40-0400 Heart rate74 /minJarvis Thrasher MD Work Phone: [facility]07-28-2025 12:40-0400 Respiratory rate12 /minJarvis Thrasher MD Work Phone: [facility]07-28-2025 12:40-0400 SaO2% (BldA) [Mass fraction]94 %Jarvis Thrasher MD Work Phone: [facility]07-28-2025 12:40-0400 Systolic blood hacoouph46 mm[Hg]Jarvis Thrasher MD Work Phone: [facility]07-28-2025 11:51-0400 Body .1 Mariana Thrasher MD Work Phone: [facility]07-28-2025 11:51-0400 Body uyvptszuncl59.2 [degF]Jarvis Thrasher MD Work Phone: [facility]07-28-2025 11:51-0400 Body cjswiv399 Jesus Thrasher MD Work Phone: [facility]07-22-2025 12:00-0400 Body oabgut205.1 cmNicholas Brown DPM Work Phone: [facility] CenterLouecyrbyw39-57-3261 12:00-0400Body mass index (BMI) [Ratio]41.6 kg/t9Pmtybrqk Brown DPM Work Phone: [facility] CenterVzldjrlhap29-42-1038 12:00-0400Body mtkbwe481.4 kgNicholas Brown DPM Work Phone: [facility] CenterKyogyyawja33-53-6609 12:00-0400Respiratory rate18 /minNicholas Brown DPM Work Phone: [facility] CenterUngbfkljtp37-07-4264 16:37-0400Body ejdbih464.1 cmNicholas Brown DPM Work Phone: [facility] CenterZmdqpywplf22-39-0759 16:37-0400Body mass index (BMI) [Ratio]41.6 kg/f2Jaehtffm Brown DPM Work Phone: [facility] CenterOwssovhhhx02-59-4994 16:37-0400Body qzkfqo326.4 kgNicholas Brown DPM Work Phone: [facility] CenterNqgqgtdatc69-89-9043 16:37-0400Respiratory rate16 /minNicholas Brown DPM Work Phone: [facility] CenterLrhyczbpbl27-04-9827 14:46-0400Body avomqz943.1 cmNicholas Brown DPM Work Phone: [facility] CenterXygaprizwc63-47-3496 14:46-0400Body mass index (BMI) [Ratio]41.6 kg/s6Wiccbuwm Brown DPM Work Phone: [facility] CenterMdnufjykoq59-04-4248 14:46-0400Body ocbncp644.4 kgNicholas Brown DPM Work Phone: [facility] CenterGmnvfxssho24-41-9465 14:46-0400Respiratory rate16 /minNicholas Brown DPM Work Phone: [facility] CenterZfejcafqba21-15-8631 15:22-0400Body mixblz921.1 cmNicholas Brown DPM Work Phone: [facility] CenterHmfewttmzz91-01-9357 15:22-0400Body mass index (BMI) [Ratio]41.6 kg/u6Bdetrlby Brown DPM Work Phone: [facility] CenterRkjsapbeov45-17-5399 15:22-0400Body iuqrzk484.4 kgNicholas Brown DPM Work Phone: [facility] CenterQwmnrdrsul36-82-1264 15:22-0400Respiratory rate16 /minNicholas Brown DPM Work Phone: [facility] CenterQlnhtsxlbc03-64-1714 13:09-0400Body ypuiwy687.1 cmNicholas Brown DPM Work Phone: [facility] CenterMxsnsdijkb09-52-1270 13:09-0400Body mass index (BMI) [Ratio]41.6 kg/b9Pfesiakd Brown DPM Work Phone: [facility] CenterPjdocwahvp03-96-0140 13:09-0400Body .4 kgNicholas Brown DPM Work Phone: [facility] CenterTspjmfqcyx35-61-0046 13:09-0400Respiratory rate16 /minNicholas Brown DPM Work Phone: no[facility] HospitalQrczgewsny11-60-0962 14:50-0400Body tmghux875.1 Mariana Thrasher MD Work Phone: [place] [address]Qznguqwhzo89-34-3853 14:50-0400Body mass index (BMI) [Ratio]41.6 kg/m1KmrzezJarvis Thrasher MD Work Phone: [place] [address]Iekchiuorw25-05-7269 14:50-0400Body reteun195.4 kgJarvis Thrasher MD Work Phone: [place] [address]Aiaunyqftg83-17-6844 14:50-0400Diastolic blood kdxwvjon08 mm[Hg]Jarvis Thrasher MD Work Phone: 1(862) 580-688744 Price StreetYwdshhgmar31-72-3017 14:50-9177ThZ3% (BldA) [Mass fraction]98 %Jarvis Thrasher MD Work Phone: [place] [address]Kopomfqhvv88-99-3776 14:50-0400Systolic blood qdyfblct565 mm[Hg]Jarvis Thrasher MD Work Phone: [place] [address]Hijbibgzou65-22-0228 13:24-0400Body cyzlcp641.1 cmNicholas Brown DPM Work Phone: 1([phone])381-[address] [place] [address]-29-2025 13:24-0400Body mass index (BMI) [Ratio]43.1 kg/t3Ftvfceey Brown DPM Work Phone: 1([phone])734-[address] [place] [address]-29-2025 13:24-0400Body mixvkv729.48 kgNicholas Brown DPM Work Phone: 1(492)564-[address] [place] [address]-29-2025 13:24-0400Respiratory rate16 /minNicholas Brown DPM Work Phone: 1(921)529-[address] [place] [address]-25-2025 14:21-0400Body mbjren486.1 cmNicholas Brown DPM Work Phone: [phone])938-[address] [place], [place] [address]Peejafzzsf13-89-5071 14:21-0400Body mass index (BMI) [Ratio]43.1 kg/g1Svezfwsf Brown DPM Work Phone: [place] [address]Cieovuwkbc68-98-7503 14:21-0400Body pozdlw664.48 kgNicholas Brown DPM Work Phone: 1(276)431-[address] [place], [place] [address]25-2025 14:21-0400Respiratory rate16 /minNicholas Brown DPM Work Phone: 1(358)[facility] [place], [place] [address]Urxevghzmy21-63-0052 16:41-0400Body yasmgt005.1 cmNicholas Brown DPM Work Phone: 1(371)[facility] [place], [place] [address]Qughfvgjhk94-37-1113 16:41-0400Body mass index (BMI) [Ratio]43.1 kg/k5Sxwdtrus Brown DPM Work Phone: 1(151)[facility] [place], [place] [address]Tqwcjedvbg41-78-4556 16:41-0400Body roaire294.48 kgNicholas Brown DPM Work Phone: 1(043)[facility] [place] [address]-07-2025 16:41-0400Respiratory rate18 /minNicholas Brown DPM Work Phone: 1(682)[facility] [place] [address]-31-2025 13:59-0400Body fczpvy698.1 cmNicholas Brown DPM Work Phone: [phone] [place] [address]-31-2025 13:59-0400Body mass index (BMI) [Ratio]43.1 kg/q8Ggaoohow Brown DPM Work Phone: 1(059)[address] [place] [address]-31-2025 13:59-0400Body .48 kgNicholas Brown DPM Work Phone: 1(532)[facility] [place] [address]-31-2025 13:59-0400Respiratory rate16 /minNicholas Brown DPM Work Phone: 1(381)[facility] [place] [address]-24-2025 14:09-0400Body nemxhu008.1 cmNicholas Brown DPM Work Phone: 1(352)[address] [place] [address]-24-2025 14:09-0400Body mass index (BMI) [Ratio]43.1 kg/k7Kvkiegbs Brown DPM Work Phone: 1(707)[facility] [place], [place] [address]Ezfjhojjxk05-48-0716 14:09-0400Body rizquq138.48 kgNicholas Brown DPM Work Phone: 1(757)[facility] [place] [address]-24-2025 14:09-0400Respiratory rate16 /minRay Hays DPM Work Phone: [facility] CenterGucipmljaa21-12-3333 10:47-0400Body temperature 98.2 [degF]Jarvis Thrasher MD Work Phone: [facility]03-13-2025 10:47-0400 Diastolic blood wcgsnoea08 mm[Hg]Jarvis Thrasher MD Work Phone: [facility]03-13-2025 10:47-0400 Heart rate66 /minJarvis Thrasher MD Work Phone: [address] [place], [place] [address]03-13-2025 10:47-0400 Respiratory rate16 /minJarvis Thrasher MD Work Phone: [facility]03-13-2025 10:47-0400 SaO2% (BldA) [Mass fraction]92 %Jarvis Thrasher MD Work Phone: [facility]03-13-2025 10:47-0400 Systolic blood sdczojsj922 mm[Hg]Jarvis Thrasher MD Work Phone: [facility]01-29-2025 14:16-0500 Body ypwzms306.[address] [employer] Work Phone: no[facility] HospitalWjlwwsrfhe14-11-4556 14:16-0500Body mass index (BMI) [Ratio]43.1 kg/m2Gina Neftaliti RO[address] [employer] Work Phone: no[facility] HospitalAgpvjjezke34-66-0902 14:16-0500Body edeztn399.[address] [employer] Work Phone: no[facility] HospitalKdwizpbnui33-75-0778 14:16-0500Diastolic blood vwtoqxai88 mm[Hg]Claudyconrad [address] [employer] Work Phone: noSaint [facility] HospitalRfcsowbgde19-15-1900 14:16-0500Heart rate99 /min Claudy Neftaliti [address] [employer] Work Phone: no[facility] HospitalFrewbhthud32-74-4500 14:16-2654MyN0% (BldA) [Mass fraction]94 %Claudy [address] [employer] Work Phone: no[facility] HospitalZdquynwpdo89-51-9369 14:16-0500Systolic blood kzkciosv753 mm[Hg]Claudy [address] [employer] Work Phone: noSaint [facility] HospitalFiuwciickg76-39-8568 09:37-0500Body zeooul035.1 Mariana Thrasher MD Work Phone: [facility]12-23-2024 09:37-0500 Body rmcvny422.86 kgJarvis Thrasher MD Work Phone: [facility]10-23-2024 13:52-0400 Body fgsuts076.1 Mariana Thrasher MD Work Phone: [facility] CenterLusdqhxtgy48-36-8087 13:52-0400Body mass index (BMI) [Ratio]44.11 kg/y9HivhzxJarvis Thrasher MD Work Phone: [facility] CenterVxtwmltewh43-66-5989 13:52-0400Body .25 kgJarvis Thrasher MD Work Phone: [facility] CenterSvqwyupihk99-71-8409 13:52-0400Diastolic blood mm[Hg]Jarvis Thrasher MD Work Phone: [facility] CenterPmaqstdxns80-34-5325 13:52-0400Heart rate99 /min Jarvis Thrasher MD Work Phone: [facility] CenterFuqztcphnn70-30-6166 13:52-8836KxR8% (BldA) [Mass fraction]96 %Jarvis Thrasher MD Work Phone: [facility] CenterHlycriikpz10-76-8848 13:52-0400Systolic blood wwyjlnow680 mm[Hg]Jarvis Thrasher MD Work Phone: [facility] CenterYbysbfkzze06-91-4443 09:19-0400Body .[address] [employer] Work Phone: no[facility] HospitalNxtmpyjezy93-38-1059 09:19-0400Body mass index (BMI) [Ratio]41.44 kg/m2Claudy Sor[address] [employer] Work Phone: [facility] CenterYxmcxnxlxd02-44-9359 09:19-0400Body mzitiv941.[address] [employer] Work Phone: [facility] CenterMdrrzugrfd86-15-3294 09:19-0400Diastolic blood jyxpixka27 mm[Hg]Claudy [address]is[address] [employer] Work Phone: [facility] CenterVbfrueyiqj97-00-5030 09:19-0400Heart rate88 /min Claudy Risal[address] [employer] Work Phone: 1(178)735-[address] [place], [place] [address]Mygqmbubeo28-68-1091 09:19-6122HsK1% (BldA) [Mass fraction]98 %Claudy [address]is[address] [employer] Work Phone: [place] [address]Zbczurcqcu35-56-5662 09:19-0400Systolic blood dlsvuzzv310 mm[Hg]Claudy [address]is[address] [employer] Work Phone: [facility] CenterDypcxffcbf46-43-2528 22:47-0400Body ukkppy042.1 cmHI Jarvis Thrasher Work Phone: [facility]08-26-2024 22:47-0400 Body exxjticnvpa93.6 [degF]MD Jarvis Thrashre Work Phone: [facility]08-26-2024 22:47-0400 Body .5 kgHI Jarvis Thrasher Work Phone: [facility]08-26-2024 22:47-0400 Diastolic blood aayfeuyz60 mm[Hg]MD Jarvis Thrasher Work Phone: [facility]08-26-2024 22:47-0400 Heart rate69 /minMD Jarvis Thrasher Work Phone: [facility]08-26-2024 22:47-0400 Respiratory rate18 /minMD Jarvis Thrasher Work Phone: [facility]08-26-2024 22:47-0400 SaO2% (BldA) [Mass fraction]96 %MD Jarvis Thrasher Work Phone: [facility]08-26-2024 22:47-0400 Systolic blood jhkrnovl613 mm[Hg]MD Jarvis Thrasher Work Phone: [facility]08-26-2024 22:04-0400 Diastolic blood dbrxudsg21 mm[Hg]MD Jarvis Thrasher Work Phone: [facility]08-26-2024 22:04-0400 Heart rate72 /minMD Jarvis Thrasher Work Phone: [facility]08-26-2024 22:04-0400 Respiratory rate20 /minMD Jarvis Thrasher Work Phone: [facility]08-26-2024 22:04-0400 SaO2% (BldA) [Mass fraction]95 %MD Jarvis Thrasher Work Phone: [facility]08-26-2024 22:04-0400 Systolic blood sbjtgkbu188 mm[Hg]MD Jarvis Thrasher Work Phone: [facility]08-26-2024 17:53-0400 Body ctqjyh885.1 cmMD Jarvis Philip Work Phone: [facility]08-26-2024 17:53-0400 Body qecjwlhxgxm24.6 [degF]MD Jarvis Thrasher Work Phone: [facility]08-26-2024 17:53-0400 Body .2 kgMD Jarvis Thrasher Work Phone: [facility]07-31-2024 15:24-0400 Diastolic blood wxclsnyh40 mm[Hg]MD Jarvis Thrasher Work Phone: [facility]07-31-2024 15:24-0400 Heart rate80 /minMD Jarvis Thrashre Work Phone: [facility]07-31-2024 15:24-0400 Respiratory rate14 /minMD Jarvis Thrasher Work Phone: [facility]07-31-2024 15:24-0400 SaO2% (BldA) [Mass fraction]92 %MD Jarvis Thrasher Work Phone: [facility]07-31-2024 15:24-0400 Systolic blood xquntomw910 mm[Hg]MD Jarvis Thrasher Work Phone: [facility]07-31-2024 14:54-0400 Inhaled oxygen flow rate6 L/minMD Henry Philip Work Phone: [facility]07-31-2024 13:39-0400 Body pjwesj325.1 cmMD Jarvis Thrasher Work Phone: [address] [place], [place] [address]07-31-2024 13:39-0400 Body mass index (BMI) [Ratio]42.7 kg/m2HI Jarvis Thrasher Work Phone: [facility]07-31-2024 13:39-0400 Body jzvbma031.5 kgMD Jarvis Thrasher Work Phone: [facility]07-31-2024 12:25-0400 Body zimntxcxhte52.4 [degF]MD Jarvis Thrasher Work Phone: [facility]02-16-2024 16:30-0500 Diastolic blood oxwejjgx87 mm[Hg]MD Jarvis Thrasher Work Phone: [facility]02-16-2024 16:30-0500 Heart rate75 /minMD Jarvis Thrasher Work Phone: [facility]02-16-2024 16:30-0500 Respiratory rate16 /minMD Jarvis Thrasher Work Phone: [facility]02-16-2024 16:30-0500 SaO2% (BldA) [Mass fraction]97 %MD Jarvis Thrasher Work Phone: [facility]02-16-2024 16:30-0500 Systolic blood nqbxorir510 mm[Hg]MD Jarvis Thrasher Work Phone: [facility]02-16-2024 15:52-0500 Inhaled oxygen flow rate8 L/minMD Jarvis Thrasher Work Phone: [facility]02-16-2024 15:36-0500 Body vgpejg925.1 cmMD Jarvis Thrasher Work Phone: [facility]02-16-2024 15:36-0500 Body mass index (BMI) [Ratio]38.6 kg/m2MD [facility] Work Phone: [facility]02-16-2024 15:36-0500 Body thyjee573.23 kgMD Jarvis [place] Work Phone: [address] [place], [place] [address]02-16-2024 13:32-0500 Body gordyeublbb34.7 [degF]MD Jarvis Thrasher Work Phone: [facility]02-09-2024 13:07-0500 Body ukthfa918.1 cmMD Jarvis Thrasher Work Phone: [facility]02-09-2024 13:07-0500 Body mass index (BMI) [Ratio]39.7 kg/m2MD Jarvis [place] Work Phone: [facility]02-09-2024 13:07-0500 Body .4 kgMD Jarvis Thrasher Work Phone: [facility]02-09-2024 11:39-0500 Body phfzdmtyaxl58.4 [degF]MD Jarvis Thrasher Work Phone: [facility]02-09-2024 11:39-0500 Diastolic blood dnkcator13 mm[Hg]MD Jarvis Thrasher Work Phone: [facility]02-09-2024 11:39-0500 Heart rate89 /minHI Jarvis Thrasher Work Phone: [facility]02-09-2024 11:39-0500 Respiratory rate16 /minMD Jarvis Thrasher Work Phone: [facility]02-09-2024 11:39-0500 SaO2% (BldA) [Mass fraction]93 %MD Jarvis Thrasher Work Phone: [facility]02-09-2024 11:39-0500 Systolic blood zlesetuz495 mm[Hg]MD Jarvis Thrasher Work Phone: [facility]02-02-2024 11:07-0500 Body mass index (BMI) [Ratio]40.9 kg/j2Nnddqzz Didblu ROAD [employer] Work Phone: [facility] CenterFmhidjbqmi04-09-9282 11:07-0500Body temperature 96.91 [degF]Whitata Rustblu [address] [employer] Work Phone: [facility] CenterPgonknprbb72-14-8240 11:07-0500Body .[address] [employer] Work Phone: [facility] CenterFjcwlnbhpn09-04-2762 11:07-0500Diastolic blood xhhogvpx76 mm[Hg]Whitata Rust[address] [employer] Work Phone: [facility] CenterCsclkfkxms33-82-5222 11:07-0500Heart rate98 /min Whit Rustbl[address] [employer] Work Phone: [facility] CenterCnsgzwsynk63-38-8885 11:07-0092ThS2% (BldA) [Mass fraction]97 %Whit Rust[address] [employer] Work Phone: [facility] CenterEglixsifdr35-20-0741 11:07-0500Systolic blood mm[Hg]Whitata Rustbl[address] [employer] Work Phone: [facility] CenterTgfbkocwvh71-14-7036 09:45-0500Body zifzis172.1 cmZaid Mon Other [facility]01-10-2024 09:45-0500 Body mass index (BMI) [Ratio]41.6 kg/d3SsmsbepZaid Mon Other [place] [employer] Other 01-10-2024 09:45-0500Body obtopdlbjvj57.8 [degF] Zaid Mon Other [place] [employer] Other 01-10-2024 09:45-0500Body ghbjee398.4 kgMattjasonraji Mon Other [place] [employer] Other 01-10-2024 09:45-0500Body zjwtvu101.39 kg Jarvis Philip Work Phone: [facility]01-10-2024 09:45-0500 Diastolic blood iakwrkgn98 mm[Hg]Zaid Mon Other [facility]01-10-2024 09:45-0500 SaO2% (BldA) [Mass fraction]96 %Zaid Mon Other [place] [employer] Other 01-10-2024 09:45-0500Systolic blood uqrxfqku497 mm[Hg] Zaid Mon Other [facility]12-08-2023 14:38-0500 Diastolic blood oifxqsep71 mm[Hg]MD Jarvis Thrasher Work Phone: [facility]12-08-2023 14:38-0500 Heart rate79 /minMD Jarvis Thrasher Work Phone: [facility]12-08-2023 14:38-0500 Respiratory rate16 /minMD Jarvis Thrasher Work Phone: [facility]12-08-2023 14:38-0500 SaO2% (BldA) [Mass fraction]93 %MD Jarvis Thrasher Work Phone: [facility]12-08-2023 14:38-0500 Systolic blood waolnzwm790 mm[Hg]MD Jarvis Thrasher Work Phone: [facility]12-08-2023 13:35-0500 Body roqwnefpxov66.4 [degF]MD Jarvis Thrasher Work Phone: [facility]12-08-2023 13:35-0500 Inhaled oxygen flow rate10 L/minHI Jarvis Thrasher Work Phone: [facility]12-08-2023 13:03-0500 Body .1 cmMD Jarvis Thrasher Work Phone: [phone]12-08-2023 13:03-0500 Body mass index (BMI) [Ratio]39.9 kg/m2MD Jarvis [place] Work Phone: 1(535)932-[address] [place], [place] 2984012-08-2023 13:03-0500 Body lpeaki185.86 kgMD [facility] Work Phone: 1(632)[address]11-28-2023 14:50-0500 Body jgvflaqrfnf14.6 [degF]MD Jarvis Thrasher Work Phone: 1(621)875-[address] [place], [place] 2984011-28-2023 14:50-0500 Body .11 kgMD Jarvis Thrasher Work Phone: 1(498)389-[address] [place], [place] 2984011-28-2023 14:50-0500 Diastolic blood oonfsldw87 mm[Hg]MD Jarvis Thrasher Work Phone: 1(655)704-[address] [place], [place] 2984011-28-2023 14:50-0500 Heart rate73 /minHI Jarvis Thrasher Work Phone: 1(060)917-[address] [place], [place] 2984011-28-2023 14:50-0500 Respiratory rate16 /minHI Jarvis Thrasher Work Phone: [facility]11-28-2023 14:50-0500 SaO2% (BldA) [Mass fraction]96 %MD Jarvis Thrasher Work Phone: [facility]11-28-2023 14:50-0500 Systolic blood ztnspaqe110 mm[Hg]MD Jarvis Thrasher Work Phone: [facility]11-28-2023 14:37-0500 Body rexiws055.1 cmHI Jarvis Thrasher Work Phone: 0(935)382-[address] [place], [place] 2984011-21-2023 15:22-0500 Body .9 [degF]MD Jarvis Thrasher Work Phone: [facility]11-21-2023 15:22-0500 Diastolic blood mfecizwk15 mm[Hg]MD Jarvis Thrasher Work Phone: [facility]11-21-2023 15:22-0500 Heart rate54 /min Jarvis Thrasher Work Phone: 1(984)460-[address] [place], [place] 2984011-21-2023 15:22-0500 Respiratory rate16 /minMD Jarvis Thrasher Work Phone: 1(367)466-[address] [place], [place] 2984011-21-2023 15:22-0500 SaO2% (BldA) [Mass fraction]97 %MD Jarvis Thrasher Work Phone: 1(691)[address]11-21-2023 15:22-0500 Systolic blood iqaenjuy275 mm[Hg]MD Jarvis Thrasher Work Phone: 1(274)[address]43 [address]11-21-2023 06:15-0500 Body eomcwt430 kgMD Jarvis Thrasher Work Phone: 1(077)[address]11-20-2023 18:47-0500 Inhaled oxygen flow rate8 L/minHI Jarvis Thrasher Work Phone: 1(725)[address]43 [address]11-20-2023 18:09-0500 Body kwnvaz098.1 cmHI Jarvis Thrasher Work Phone: 1(498)[address]11-20-2023 18:09-0500 Body mass index (BMI) [Ratio]41.4 kg/m2HI Jarvis Thrasher Work Phone: [facility]11-16-2023 19:16-0500 Diastolic blood carnghbv61 mm[Hg]MD Jarvis Thrasher Work Phone: [phone]11-16-2023 19:16-0500 Heart rate76 /minMD Jarvis Thrasher Work Phone: [facility]11-16-2023 19:16-0500 Respiratory rate20 /minMD Jarvis Thrasher Work Phone: [phone]11-16-2023 19:16-0500 SaO2% (BldA) [Mass fraction]97 %MD Jarvis Thrasher Work Phone: [facility]11-16-2023 19:16-0500 Systolic blood cpsxaftt195 mm[Hg]MD Jarvis Thrasher Work Phone: [facility]11-16-2023 14:36-0500 Body .1 cmMD Jarvis Thrasher Work Phone: [address] [place], [place] [address]1911-16-2023 14:36-0500 Body ewtnsrmfxsu47.3 [degF]MD Jarvis Thrasher Work Phone: [facility]11-16-2023 14:36-0500 Body imhwyp771.32 kgMD Jarvis [place] Work Phone: [facility]08-30-2023 10:30-0400 Body oodbsf240.1 cmEdith Scott Other [facility] [employer] Other 08-30-2023 10:30-0400Body mass index (BMI) [Ratio]41.6 kg/n3SkqcuiEdith Scott Other [facility] [employer] Other 08-30-2023 10:30-0400Body xvtkzkvgfgy80.8 [degF]Edith Scott Other [place] [employer] Other 08-30-2023 10:30-0400Body .4 kgEdith Scott Other [facility] Other 08-30-2023 10:30-0400Diastolic blood gmecdyyn76 mm[Hg] Edith Scott Other [facility] Other 08-30-2023 10:30-3437XtK6% (BldA) [Mass fraction]97 % Edith Scott Other [employer] Other 08-30-2023 10:30-0400Systolic blood cehhhudu472 mm[Hg] Edith Scott Other [employer] Other 08-29-2023 15:41-0400Body .1 cmPHYSICIAN [facility]08-29-2023 15:41-0400Body .8 [degF]PHYSICIAN NO [facility]08-29-2023 15:41-0400 Body kgPHYSICIAN [facility]08-29-2023 15:41-0400Diastolic blood guziwtbl20 mm[Hg]PHYSICIAN NO [facility]08-29-2023 15:41-0400Heart rate85 /minPHYSICIAN NO [facility]08-29-2023 15:41-0400Respiratory rate12 /min PHYSICIAN NO [facility]08-29-2023 15:41-8723GtO5% (BldA) [Mass fraction]97 %PHYSICIAN NO [facility] 11-10-2022 15:41-0400Systolic blood gitjjagk416 mm[Hg]PHYSICIAN NO [facility]08-08-2023 15:40-0400Diastolic blood mm[Hg]MD Jarvis Thrasher Work Phone: [facility]08-08-2023 15:40-0400 Heart rate73 /minMD Jarvis Thrasher Work Phone: [facility]08-08-2023 15:40-0400 Respiratory rate16 /minMD Jarvis Thrasher Work Phone: [facility]08-08-2023 15:40-0400 SaO2% (BldA) [Mass fraction]94 %MD Javris Thrasher Work Phone: 1([phone])[address]08-08-2023 15:40-0400 Systolic blood oxbbsyho661 mm[Hg]MD Jarvis Thrasher Work Phone: 1([phone])[address]43 [address]08-08-2023 14:00-0400 Body mass index (BMI) [Ratio]41.5 kg/m2MD Jarvis Thrasher Work Phone: [phone])[address]08-08-2023 13:23-0400 Body enkgdm890.1 cmMD Jarvis Thrasher Work Phone: 1([phone])[address]08-08-2023 13:23-0400 Body nyazlw695.39 kgMD Jarvis Thrasher Work Phone: 1(837)[address]08-08-2023 12:15-0400 Body nmlauczbqsa81.1 [degF]MD Jarvis Thrasher Work Phone: 1([phone])[address]06-12-2023 09:05-0400 Body wqwrju954.1 cmMD Jarvis Thrasher Work Phone: 1([phone])[address]43 [address]06-12-2023 09:05-0400 Body mass index (BMI) [Ratio]42.7 kg/m2MD Jarvis Thrasher Work Phone: 1([phone])[address]06-12-2023 09:05-0400 Body glnioc699.5 kgMD Jarvis Thrasher Work Phone: 1(169)[address]06-12-2023 08:40-0400 Diastolic blood fvviadzt85 mm[Hg]MD Jarvis Thrasher Work Phone: 1(980)277-[address] [place], [place] 2984006-12-2023 08:40-0400 Heart rate86 /minMD Jarvis Thrasher Work Phone: [facility]06-12-2023 08:40-0400 Respiratory rate66 /min Jarvis Philip Work Phone: [phone]06-12-2023 08:40-0400 SaO2% (BldA) [Mass fraction]95 %MD Jarvis Thrasher Work Phone: 1([phone])442-[address] [place], [place] 2984006-12-2023 08:40-0400 Systolic blood iykjfeii542 mm[Hg]MD Jarvis Thrasher Work Phone: [facility]06-12-2023 06:06-0400 Body .1 [degF]MD Jarvis Thrasher Work Phone: [facility]04-28-2023 15:18-0400 Diastolic blood rilktgcn31 mm[Hg]MD Jarvis Thrasher Work Phone: [address] [place], [place] 802[address]04-28-2023 15:18-0400 Heart rate86 /minMD Jarvis Thrasher Work Phone: [address] [place], [place] 802[address]04-28-2023 15:18-0400 Respiratory rate16 /minMD Jarvis Thrasher Work Phone: [address] [place], [place] 802[address]04-28-2023 15:18-0400 SaO2% (BldA) [Mass fraction]92 %MD Jarvis Thrasher Work Phone: [facility]04-28-2023 15:18-0400 Systolic blood xupzhzww692 mm[Hg]MD Jarvis Thrasher Work Phone: [facility]04-28-2023 14:58-0400 Body tkazwh303.1 cmMD Jarvis Thrasher Work Phone: [facility]04-28-2023 14:58-0400 Body mass index (BMI) [Ratio]39.9 kg/m2HI Jarvis Thrasher Work Phone: [facility]04-28-2023 14:58-0400 Body hndpwu407.86 kgMD Jarvis Thrasher Work Phone: [facility]04-28-2023 12:54-0400 Body igvqepekeax07.3 [degF]MD Jarvis Thrasher Work Phone: [facility]02-16-2023 11:30-0500 Body scccop690.1 cmMajoselyn Mon Other [facility] [employer] Other 02-16-2023 11:30-0500Body mass index (BMI) [Ratio]41.6 kg/t2FqqexqyZaid Mon Other [facility] [employer] Other 02-16-2023 11:30-0500Body .4 kgMattanamaria Mon Other [place] [employer] Other 01-13-2023 16:03-0500Diastolic blood qjeluvxu16 mm[Hg] MD Jarvis Thrasher Work Phone: [facility]01-13-2023 16:03-0500 Heart rate67 /minMD Jarvis Thrasher Work Phone: [facility]01-13-2023 16:03-0500 Respiratory rate16 /minMD Jarvis Thrasher Work Phone: [facility]01-13-2023 16:03-0500 SaO2% (BldA) [Mass fraction]97 %MD Jarvis Thrasher Work Phone: [facility]01-13-2023 16:03-0500 Systolic blood dqprdywd12 mm[Hg]MD Jarvis Thrasher Work Phone: [facility]01-13-2023 15:18-0500 Inhaled oxygen flow rate8 L/minMD Jarvis Thrasher Work Phone: [facility]01-13-2023 15:00-0500 Body mass index (BMI) [Ratio]39.4 kg/m2MD Jarvis Thrasher Work Phone: [facility]01-13-2023 14:29-0500 Body iuzewr969.1 cmMD Jarvis Thrasher Work Phone: [facility]01-13-2023 14:29-0500 Body .5 kgMD Jarvis Thrasher Work Phone: [facility]01-13-2023 11:54-0500 Body glkiyozhqfc45.3 [degF]MD Jarvis Thrasher Work Phone: [phone]10-27-2022 16:00-0400 Body nwonzvghury61.2 [degF]MD Jarvis Thrasher Work Phone: [phone])838-[address] [place], [place] 2984010-27-2022 16:00-0400 Diastolic blood hurzsasl72 mm[Hg]MD Jarvis Thrasher Work Phone: [phone] [address]10-27-2022 16:00-0400 Heart rate60 /minMD Jarvis Philip Work Phone: [phone])73243 [address]10-27-2022 16:00-0400 Respiratory rate18 /minMD Jarvis Thrasher Work Phone: [phone] [address]10-27-2022 16:00-0400 SaO2% (BldA) [Mass fraction]99 %MD Jarvis Thrasher Work Phone: 1(498)852-[address] [place], [place] 2984010-27-2022 16:00-0400 Systolic blood nbdiakyp408 mm[Hg]MD Jarvis Thrasher Work Phone: [phone])81243 [address]10-27-2022 05:43-0400 Body .2 kgMD Jarvis Thrasher Work Phone: [phone] [address]10-26-2022 11:00-0400 Body bzrocs530.1 cmMD Jarvis Thrasher Work Phone: 1(215)617-[address] [place], [place] 2984010-25-2022 18:27-0400 Body ppicyc761.1 cmMD Jarvis Thrasher Work Phone: [phone])405-[address] [place], [place] 2984010-25-2022 18:27-0400 Body ireiatuafcu82.6 [degF]MD Jarvis Thrasher Work Phone: [phone]10-25-2022 18:27-0400 Body hyrdpg599.5 kgMD Jarvis Thrasher Work Phone: 1([phone])392-[address] [place], [place] 2984010-25-2022 18:27-0400 Diastolic blood qyphfiwb52 mm[Hg]MD Jarvis Thrasher Work Phone: [facility]10-25-2022 18:27-0400 Heart rate88 /minMD Jarvis Thrasher Work Phone: [facility]10-25-2022 18:27-0400 Respiratory rate20 /minMD Jarvis Thrasher Work Phone: [phone] [place], [place] 2984010-25-2022 18:27-0400 SaO2% (BldA) [Mass fraction]95 %MD Jarvis Thrasher Work Phone: [address] [place], [place] 8021910-25-2022 18:27-0400 Systolic blood weyzdhlg046 mm[Hg]MD Jarvis Thrasher Work Phone: [phone] [address]10-25-2022 07:29-0400 Body bzchrivrvms01.1 [degF]MD Jarvis Thrasher Work Phone: [address] [place], [place] 8021910-25-2022 07:29-0400 Diastolic blood hueqmwhf79 mm[Hg]MD Jarvis Thrasher Work Phone: [address] [place], [place] 8021910-25-2022 07:29-0400 Heart ztke023 /minMD Jarvis Thrasher Work Phone: [facility]10-25-2022 07:29-0400 Respiratory rate18 /minMD Jarvis Thrasher Work Phone: [facility]10-25-2022 07:29-0400 SaO2% (BldA) [Mass fraction]95 %MD Jarvis Thrasher Work Phone: [facility]10-25-2022 07:29-0400 Systolic blood jssmjevm590 mm[Hg]MD Jarvis Thrasher Work Phone: [facility]10-25-2022 06:05-0400 Body rfsxgy096.1 cmMD Jarvis Thrasher Work Phone: [facility]10-25-2022 06:05-0400 Body .9 kgMD Jarvis Thrasher Work Phone: 1(419)626-[address] [place], [place] 2984010-18-2022 12:00-0400 Body ipsezugigjy41 [degF]MD Jarvis Thrasher Work Phone: [phone]10-18-2022 12:00-0400 Diastolic blood sgzibagn64 mm[Hg]MD Jarvis Thrasher Work Phone: 1(585)333-[address] [place], [place] 2984010-18-2022 12:00-0400 Heart rate81 /minMD Jarvis Philip Work Phone: 1([phone])266-[address] [place], [place] 2984010-18-2022 12:00-0400 Respiratory rate17 /min Jarvis Philip Work Phone: 1([phone])523-[address] [place], [place] 2984010-18-2022 12:00-0400 SaO2% (BldA) [Mass fraction]98 %MD Jarvis Thrasher Work Phone: 1([phone])491-[address] [place], [place] 2984010-18-2022 12:00-0400 Systolic blood ndixzagm934 mm[Hg]MD Jarvis Thrasher Work Phone: 1(382)150-[address] [place], [place] 2984010-18-2022 09:08-0400 Body ygldtc762.1 cmMD Jarvis Philip Work Phone: 1(516)808-[address] [place], [place] 2984010-18-2022 06:18-0400 Body jbjory336.3 kg Jarvis Thrasher Work Phone: 1(442)002-[address] [place], [place] 2984010-06-2022 08:00-0400 Body rgrigafedzr50.4 [degF]MD Jarvis Thrasher Work Phone: [facility]10-06-2022 08:00-0400 Diastolic blood ywkindew20 mm[Hg]MD Jarvis Thrasher Work Phone: [facility]10-06-2022 08:00-0400 Heart rate95 /minMD Jarvis Thrasher Work Phone: [facility]10-06-2022 08:00-0400 Respiratory rate95 /minMD Jarvis Thrasher Work Phone: [facility]10-06-2022 08:00-0400 SaO2% (BldA) [Mass fraction]97 %MD Jarvis Thrasher Work Phone: [facility]10-06-2022 08:00-0400 Systolic blood vwzdgeia141 mm[Hg]MD Jarvis Thrasher Work Phone: 1(805)610-[address] [place], [place] 2984010-06-2022 03:34-0400 Body mtjgwe968.6 kgMD Jarvis Thrasher Work Phone: 1(212)478-[address] [place], [place] 2984010-05-2022 13:41-0400 Body .1 cmMD Jarvis Philip Work Phone: [phone]10-04-2022 18:50-0400 Body dtthjmsxucp74.2 [degF]MD Jarvis Thrasher Work Phone: [phone] [address]10-04-2022 18:50-0400 Diastolic blood gywzrugf53 mm[Hg]MD Jarvis Thrasher Work Phone: [phone] [address]10-04-2022 18:50-0400 Heart rate88 /minMD Jarvis Philip Work Phone: 1(751)171-[address] [place], [place] 2984010-04-2022 18:50-0400 Respiratory rate18 /minMD Jarvis Thrasher Work Phone: 1(154)670-[address] [place], [place] 2984010-04-2022 18:50-0400 SaO2% (BldA) [Mass fraction]97 %MD Jarvis Thrasher Work Phone: [facility]10-04-2022 18:50-0400 Systolic blood kmeqwdcj158 mm[Hg]MD Jarvis Thrasher Work Phone: [address] [place], [place] 8021910-04-2022 18:11-0400 Body ehxmai161.1 cmMD Jarvis Thrasher Work Phone: [facility]10-04-2022 18:11-0400 Body mass index (BMI) [Ratio]40.6 kg/m2MD Jarvis Thrasher Work Phone: [address] [place], [place] 8021910-04-2022 18:11-0400 Body jjiipw795.6 kgMD Jarvis Thrasher Work Phone: [facility]10-04-2022 16:29-0400 Inhaled oxygen flow rate6 L/minMD Jarvis Thrasher Work Phone: [facility]09-24-2022 11:45-0400 Body aniwwbzfhmx31 [degF]MD Jarvis Thrasher Work Phone: [facility]09-24-2022 11:45-0400 Diastolic blood vvbqvvna26 mm[Hg]MD Jarvis Thrasher Work Phone: [facility]09-24-2022 11:45-0400 Heart rate78 /minMD Henry Philip Work Phone: [facility]09-24-2022 11:45-0400 Respiratory rate18 /minMD Henry Philip Work Phone: [address] [place], [place] 8021909-24-2022 11:45-0400 SaO2% (BldA) [Mass fraction]97 %MD Jarvis Thrasher Work Phone: [facility]09-24-2022 11:45-0400 Systolic blood mm[Hg]MD Jarvis Thrasher Work Phone: [facility]09-24-2022 06:47-0400 Body esoolu472.5 kgMD Henry Philip Work Phone: [facility]09-22-2022 10:30-0400 Body jjyqlm756.1 cmHI Jarvis Thrasher Work Phone: [facility]09-14-2022 12:15-0400 Body .1 cmMajoselyn Mon Other [employer] Other 09-14-2022 12:15-0400Body mass index (BMI) [Ratio]41.6 kg/m0FoeglcgZaid Mon Other [employer] Other 09-14-2022 12:15-0400Body pcxybpzzake56 [degF]Zaid Yaa Other [facility] [employer] Other 09-14-2022 12:15-0400Body tubxof576.4 kgMattjasonraji Oliverioiva Other [facility] Other 09-14-2022 12:15-0400Diastolic blood mm[Hg] Zaid Yaa Other [facility] [employer] Other 09-14-2022 12:15-7037WgK9% (BldA) [Mass fraction]99 % Zaid Mon Other [facility] [employer] Other 09-14-2022 12:15-0400Systolic blood hdsqrwtu432 mm[Hg] Zaid Mon Other [facility] [employer] Other 08-28-2022 10:33-0400Diastolic blood uoztqhzp09 mm[Hg] MD Jarvis Thrasher Work Phone: [facility]08-28-2022 10:33-0400 Systolic blood crgoqzuq785 mm[Hg]MD Jarvis Thrasher Work Phone: [facility]08-28-2022 08:46-0400 Body ashgxkwgaua00.8 [degF]MD Jarvis Thrasher Work Phone: [facility]08-28-2022 08:46-0400 Heart rate70 /minMD Jarvis Thrasher Work Phone: [facility]08-28-2022 08:46-0400 Respiratory rate18 /minMD Jarvis Thrasher Work Phone: [facility]08-28-2022 08:46-0400 SaO2% (BldA) [Mass fraction]95 %MD Jarvis Thrasher Work Phone: [facility]08-28-2022 05:47-0400 Body .8 kgHI Jarvis Thrasher Work Phone: [facility]08-25-2022 16:00-0400 Inhaled oxygen flow rate6 L/minHI Jarvis Thrasher Work Phone: [facility]08-25-2022 15:06-0400 Body xifnkg097.1 cmHI Jarvis Thrasher Work Phone: [facility]08-25-2022 15:06-0400 Body mass index (BMI) [Ratio]43 kg/m2HI Jarvis Thrasher Work Phone: [facility]08-21-2022 17:00-0400 Diastolic blood apdedfll99 mm[Hg]MD Jarvis Thrasher Work Phone: [facility]08-21-2022 17:00-0400 Heart rate71 /minHI Jarvis Thrasher Work Phone: [facility]08-21-2022 17:00-0400 Respiratory rate20 /minHI aJrvis Thrasher Work Phone: [facility]08-21-2022 17:00-0400 SaO2% (BldA) [Mass fraction]96 %MD Jarvis Thrasher Work Phone: [facility]08-21-2022 17:00-0400 Systolic blood eiauknzb818 mm[Hg]MD Jarvis Thrasher Work Phone: [facility]08-21-2022 15:18-0400 Body qgvkav186.1 cmHI Jarvis Thrasher Work Phone: [facility]08-21-2022 15:18-0400 Body bjpfmmcpmqa78.6 [degF]MD Jarvis Thrasher Work Phone: [facility]08-21-2022 15:18-0400 Body purtui418.86 kgHI Jarvis Thrasher Work Phone: [facility]08-17-2022 10:45-0400 Body jccekb056.1 cmEdith Scott Other [facility] [employer] Other 08-17-2022 10:45-0400Body mass index (BMI) [Ratio]41.6 kg/g7Dvkgek Rutjavanpili Other [facility] Other 08-17-2022 10:45-0400Body svmqlmfdpmy38.6 [degF]Edith Chapmanpablito Other [facility] [employer] Other 08-17-2022 10:45-0400Body osqpid337.4 kgEdith Chapmanjavanpili Other [facility] Other 08-17-2022 10:45-0400Diastolic blood qsbsxkti66 mm[Hg] Edith Chapmanpablito Other [facility] [employer] Other 08-17-2022 10:45-9491MqY3% (BldA) [Mass fraction]98 % Edith Chapmanpablito Other [facility] [employer] Other 08-17-2022 10:45-0400Systolic blood fohoxocj996 mm[Hg] Edith Emi Other [facility] Other 08-05-2022 11:36-0400Body cwelhbvgtgj46.1 [degF]MD Jarvis Thrasher Work Phone: [facility]08-05-2022 11:36-0400 Diastolic blood pynerwug30 mm[Hg]MD Jarvis Thrasher Work Phone: [facility]08-05-2022 11:36-0400 Heart rate84 /minMD Jarvis Thrasher Work Phone: [facility]08-05-2022 11:36-0400 Respiratory rate16 /minMD Jarvis Thrasher Work Phone: [facility]08-05-2022 11:36-0400 SaO2% (BldA) [Mass fraction]97 %MD Jarvis Thrasher Work Phone: [facility]08-05-2022 11:36-0400 Systolic blood aotrnivk215 mm[Hg]MD Jarvis Thrasher Work Phone: [facility]08-05-2022 05:36-0400 Body .9 kg Jarvis Thrasher Work Phone: [facility]08-04-2022 08:00-0400 Inhaled oxygen flow rate1 L/min Jarvis Philip Work Phone: [facility]08-02-2022 11:30-0400 Body vairmb857.1 cmMD Jarvis Thrasher Work Phone: [facility]08-01-2022 09:30-0400 Body mass index (BMI) [Ratio]41.4 kg/m2 Jarvis Thrasher Work Phone: [facility]07-28-2022 08:00-0400 Body uxjabpmyorv20 [degF]MD Jarvis Thrasher Work Phone: [facility]07-28-2022 08:00-0400 Diastolic blood ydpimsuo42 mm[Hg]MD Jarvis Thrasher Work Phone: [facility]07-28-2022 08:00-0400 Heart rate90 /minMD Jarvis Thrasher Work Phone: [facility]07-28-2022 08:00-0400 Respiratory rate18 /minMD Jarvis Thrasher Work Phone: [facility]07-28-2022 08:00-0400 SaO2% (BldA) [Mass fraction]95 %MD Jarvis Thrasher Work Phone: [facility]07-28-2022 08:00-0400 Systolic blood rukioygn604 mm[Hg]MD Jarvis Thrasher Work Phone: [facility]07-28-2022 03:59-0400 Body tghezi534.5 kgMD Jarvis Thrasher Work Phone: [facility]07-27-2022 15:20-0400 Body righgp877.1 cmMD Jarvis [place] Work Phone: [facility]07-26-2022 20:03-0400 Body mass index (BMI) [Ratio]46.7 kg/m2[facility] Work Phone: [address] [place], [place] 8021907-26-2022 19:04-0400 Inhaled oxygen flow rate6 L/minMD [facility] Work Phone: 1([phone] [place], [place] 2984007-20-2022 15:00-0400 Inhaled oxygen jbfdjvmbvpqge74 %MD Jarvis Thrasher Work Phone: [address] [place], [place] 8021907-15-2022 20:14-0400 [facility] .[facility]07-15-2022 20:14-0400 Body mass index (BMI) [Ratio]41.8 kg/m2[facility] Work Phone: [facility]07-15-2022 20:14-0400 Body zfbgyeaobym57.1 [degF]MD Jarvis Thrasher Work Phone: [facility]07-15-2022 20:14-0400 Body gjtezc592.9 kgHI Jarvis Thrasher Work Phone: [facility]07-15-2022 20:14-0400 Diastolic blood bmrbbfsi88 mm[Hg]MD Jarvis Thrasher Work Phone: [facility]07-15-2022 20:14-0400 Heart rate84 /minMD Jarvis Thrasher Work Phone: [facility]07-15-2022 20:14-0400 Respiratory rate18 /min Jarvis Thrasher Work Phone: [facility]07-15-2022 20:14-0400 SaO2% (BldA) [Mass fraction]95 % Jarvis Philip Work Phone: [facility]07-15-2022 20:14-0400 Systolic blood mm[Hg] Jarvis Philip Work Phone: [facility]06-09-2022 11:45-0400 Body heightMattanamaria Mon Other [employer] Other 06-09-2022 11:45-0400Body mass index (BMI) [Ratio]41.6 kg/a5SoypyapZaid Mon Other [employer] Other 06-09-2022 11:45-0400Body ksjopwfcueb70.4 [degF] Zaid Mon Other [employer] Other 06-09-2022 11:45-0400Body lgozvc024.4 kgMajoselyn Mon Other [employer] Other 06-09-2022 11:45-0400Diastolic blood knaunxhg71 mm[Hg] Zaid Mon Other [employer] Other 06-09-2022 11:45-0400Respiratory rate20 /minMattanamaria Mon Other [employer] Other 06-09-2022 11:45-9777NeM4% (BldA) [Mass fraction]96 % Zaid Mon Other [employer] Other 06-09-2022 11:45-0400Systolic blood lnuuoryw472 mm[Hg] Zaid Mon Other [facility] [employer] Other 05-04-2022 09:30-0400Body heightMatthew Yaa Other [facility] Other 05-04-2022 09:30-0400Body mass index (BMI) [Ratio]41.6 kg/j5Trlsirk Yaa Other [facility] [employer] Other 05-04-2022 09:30-0400Body nzjejn570.4 kgMatthew Yaa Other [facility] Other 05-04-2022 09:30-0400Diastolic blood uyityphu40 mm[Hg] Zaid Mon Other [facility] [employer] Other 05-04-2022 09:30-0400Respiratory rate20 /minMatthew Yaa Other [facility] [employer] Other 05-04-2022 09:30-0400Systolic blood qknzvyzp854 mm[Hg] Zaid Mon Other [facility] [employer] Other 12-23-2021 11:30-0500Body heightMatthew Yaa Other [employer] Other 12-23-2021 11:30-0500Body mass index (BMI) [Ratio]41.6 kg/k0Qiuajhs Yaa Other [employer] Other 12-23-2021 11:30-0500Body .4 kgZaid Mon Other [facility] [employer] Other 12-23-2021 11:30-0500Diastolic blood shpqaqdh97 mm[Hg] Zaid Mon Other [facility] [employer] Other 12-23-2021 11:30-0500Systolic blood mdbnqjer834 mm[Hg] Zaid Duroniva Other [facility] [employer] Other Encounters Encounter DateEncounter TypeCare ProviderFacilityStart: 01-03-2025 End: 35-31-2385oowfcqhznzAKNR REFERRALFacility:[facility]tart: 01-02-2025 End: 26-48-5861ngffafeaqoEuhbq Vannest [employer] Work Phone: [facility] POPULATION HEALTHStart: 12-29-2024 End: 49-03-6539Clvrdhpreg and management of inpatientEmran Jered Ro MD-[address] [place] [address] Med Surg Work Phone: Start: 03-84-3955Udr-patient / Non-visitMattanamaria Mon MD-[facility] Vascular Surg Work Phone: Start: 12-27-2024 End: 75-64-9467zcezppgvlrWNVDST SASTRYFacility:[facility]tart: 12-21-2024 End: 45-12-6185Rvwjfhn encounter procedureJarvis Thrasher MD-[facility] Work Phone: Start: 12-21-2024 End: 66-36-7168udeedbtthxVfuvxt Hill MD Work Phone: [facility] Work Phone: Start: 12-12-2024 End: 60-53-0412crbcnrovmiWLGGRBVV A BROWNNot AvailableStart: 12-12-2024 End: 79-44-1268Briuht flowsheetRay Hays DPM Work Phone: noMS [facility] PodiatryStart: 12-12-2024 End: 21-56-3535Liqlbc flowsheetNicvernonhelen Hays DPM Work Phone: no[facility] PodiatryStart: 12-12-2024 End: 13-82-4764Vmdqifp encounter procedureLisahelen Hays DPM Work Phone: noMS [facility] PodiatryComment on above: Diabetes mellitus due to underlying condition with diabetic polyneuropathy, unspecified whether group home insulin use (HCC) (Primary Dx); PVD (peripheral vascular disease); Foot ulcer, left, with fat layer exposed (HCC)Start: 12-11-2024 End: 96-81-3148HwdrdkXgfutu Dembek MANOMS [facility] MedicineComment on above:Chronic bilateral low back pain without sciaticaStart: 12-01-2024 End: 79-39-2386Yrwjfw outpatient visit 25 minutesSummpeewee RESTREPO Work Phone: noms [facility] MedicineComment on above:Type 2 diabetes mellitus with diabetic polyneuropathy, without long-term current use of insulin (HCC) (Primary Dx); Morbid obesity ([facility]-HCC); BMI 40.0-44.9, adult ([facility]-HCC); SOB (shortness of breath); Yeast dermatitis; Metabolic dysfunction-associated steatotic liver disease ([facility])Start: 12-01-2024 End: 55-60-9908zyfepxwnzeWARM RISALITINot AvailableStart: 11-21-2024 End: 29-01-9047rwqitatrfeYXIJUWUB A BROWNNot AvailableStart: 11-21-2024 End: 91-46-1938Isbddrp encounter procedureLisahelen Hays DPM Work Phone: noms [facility] PodiatryComment on above: Diabetes mellitus due to underlying condition with diabetic polyneuropathy, unspecified whether group home insulin use (HCC) (Primary Dx); Foot ulcer, left, with fat layer exposed (HCC); PVD (peripheral vascular disease)Start: 11-21-2024 End: 15-05-5159Rnfmps flowsheetRay Hays DPM Work Phone: n[facility]iatryStart: 11-21-2024 End: 23-94-7100Vvmhzg flowsheetRay Jered Brian DPM Work Phone: n[facility] PodiatryStart: 11-09-2024 End: 80-27-4743ShlakmBhcopb Prachi PELAYO [facility] MedicineComment on above:Chronic bilateral low back pain without sciaticaStart: 10-25-2024 End: 82-89-2727Rswaahq encounter procedureRay Jered Brian DPM Work Phone: noms [facility] PodiatryComment on above: Diabetes mellitus due to underlying condition with diabetic polyneuropathy, unspecified whether salvage determiner insulin use ([facility]) (Primary Dx); Foot ulcer, left, with fat layer exposed ([facility]); PVD (peripheral vascular disease)Start: 10-25-2024 End: 28-82-7471rjlwadumyjMORAYXML A BROWNNot AvailableStart: 10-25-2024 End: 11-21-4446evgzxhbmjwLVPZVAW L POULOSNot AvailableStart: 10-25-2024 End: 24-46-7337Egbocmyljhnd care manage srvc 7 day dischargeMavis Wild NP Work Phone: noms [facility] [facility] MedicineComment on above:Acute CVA (cerebrovascular accident) ([facility]) (Primary Dx); Type 2 diabetes mellitus with diabetic polyneuropathy, without long-term current use of insulin ([facility]); Essential hypertension ; Diarrhea, unspecified typeStart: 10-21-2024 End: 73-21-9847Izmvkpmt Result EncounterRay Hays DPM Work Phone: noms External Department UnsolicitedStart: 10-21-2024 End: 26-06-3215Mziaivgx Result EncounterRay Hays DPM Work Phone: noms External Department UnsolicitedStart: 10-20-2024 Non-patient / Non-visitMattanamaria Mon MD-[facility] Vascular Surg Work Phone: Start: 10-20-2024 End: 92-74-4423Gukpoozkya and management of inpatientDabo Bales MD-[address] [place] [address] Med Surg Work Phone: Start: 10-18-2024 End: 25-78-7578Fzudrsnlb encounterRay Hays DPM Work Phone: noms [facility] PodiatryComment on above: RescheduleStart: 10-17-2024 End: 41-46-8906Hldzfc outpatient visit 25 minutesGinjered Soriano NP Work Phone: [facility] [facility] MedicineComment on above:Type 2 diabetes mellitus with diabetic polyneuropathy, without long-term current use of insulin (HCC) (Primary Dx); Essential hypertension ; Peripheral arterial disease; History of stroke without residual deficits; Metabolic dysfunction-associated steatotic liver disease ([facility]ASLD); Chronic insomnia; RICK (obstructive sleep apnea); Class 3 severe obesity due to excess calories with serious comorbidity and body mass index (BMI) of40.0 to 44.9 in adult ([facility]-HCC); BMI 40.0-44.9, adult ([facility]-HCC)Start: 10-17-2024 End: 28-98-2097ftzuoyoywoWMUF RISALITINot AvailableStart: 10-10-2024 End: 62-13-6972FtthqwIqzxtu Dembek MANOMS [facility] [facility] MedicineComment on above:Chronic bilateral low back pain without sciaticaStart: 10-09-2024 End: 49-33-9211Wlhjmxjx Result EncounterRay Hays DPM Work Phone: noms External Department UnsolicitedStart: 10-09-2024 End: 31-22-5400Cykzqbbn Result EncounterRay Hays DPM Work Phone: noms External Department UnsolicitedStart: 10-09-2024 End: 87-68-0694Lcqwjvmoe to same day surgery Rafi Hays DPM[facility]: 10-09-2024 End: 07-97-5511hjugwgzzbbOflqrf Hill MD Work Phone: [facility] Work Phone: Start: 10-03-2024 End: 42-39-9051Jndxcq flowsJose Luis Hays DPM Work Phone: noMS [place] PODStart: 10-03-2024 End: 25-63-1444Fpatmk alinheetRay Hays DPM Work Phone: no[facility] [place] PODStart: 10-03-2024 End: 04-12-4021kefmouoqllLNAWEYCB A BROWNNot AvailableStart: 10-03-2024 End: 94-08-8740Vfkaay outpatient visit 25 minutesRay Hays DPM Work Phone: no[place] PODComment on above:Diabetes mellitus due to underlying condition with diabetic polyneuropathy, unspecified whether salvage determiner insulin use (HCC) (Primary Dx); Foot ulcer, left, with fat layer exposed (HCC); PVD (peripheral vascular disease)Start: 09-29-2024 End: 14-42-9900Zupjcml encounter procedureRay Hays DPM-[facility] Work Phone: Start: 09-29-2024 End: 00-51-9054ucbcidhensLsvxun Hill MD Work Phone: [facility] Work Phone: Start: 09-14-2024 End: 13-76-9543FtxdwjYazcef Dembek MANOMS [facility] IMComment on above:Chronic bilateral low back pain without sciaticaStart: 09-13-2024 End: 89-73-2799htlmgrvaldUBMLDNUQ A BROWNNot AvailableStart: 09-13-2024 End: 02-46-4102Pwwcob outpatient visit 15 minutesRya Hays DPM Work Phone: n[facility] [place] PODComment on above:PVD (peripheral vascular disease) (Primary Dx); Diabetes mellitus due to underlying condition with diabetic polyneuropathy, unspecified whether salvage determiner insulin use (HCC); Foot ulcer, left, with fat layer exposed (HCC)Start: 09-13-2024 End: 60-76-3770Cenwhe flowsheetNicholas A Brown DPM Work Phone: [facility] [place] PODStart: 09-13-2024 End: 37-27-6574Jsteqy flowsheetNicholas A Brown DPM Work Phone: [facility] [place] PODStart: 08-25-2024 End: 56-03-4932jtgxjbyfesLDUKGOQQ A BROWNNot AvailableStart: 08-25-2024 End: 42-94-1696Ycoghvc encounter procedureNicholas A Brown DPM Work Phone: noMS [place] PODComment on above:Foot ulcer, left, with fat layer exposed (HCC) (Primary Dx); Diabetes mellitus due to underlying condition with diabetic polyneuropathy, unspecified whether group home insulin use ([facility])Start: 08-25-2024 End: 79-77-9426[place] flowsheetNicholas A Brown DPM Work Phone: [facility] [place] PODStart: 08-25-2024 End: 33-57-9087Wepgbo flowsheetNicholas A Brown DPM Work Phone: [facility] [place] PODStart: 08-17-2024 End: 85-49-4068ZtxknfEckt Brock LPNNOMS SWS IMComment on above:Chronic bilateral low back pain without sciaticaStart: 08-14-2024 End: 64-12-4611zesdhbbhzeTFNTJTXG A BROWNNot AvailableStart: 08-14-2024 End: 39-05-0172Uvxtlxj encounter procedureNicholas A Brown DPM Work Phone: [facility] [place] PODComment on above:Diabetes mellitus due to underlying condition with diabetic polyneuropathy, unspecified whether salvage determiner insulin use (CMS/[facility]) (Primary Dx); Foot ulcer, left, with fat layer exposed (CMS/HCC)Start: 08-14-2024 End: 99-42-8252Mxhfog flowsheetNicholas A Brown DPM Work Phone: [facility] [place] PODStart: 08-14-2024 End: 38-80-3244Fxmhqs flowsheetNicholhelen Lawton Brown DPM Work Phone: [facility] [place] PODStart: 07-27-2024 End: 66-44-5416GdfkcqQvhsje L Hill MD Work Phone: n[facility] SWS IMComment on above:Chronic insomniaStart: 07-25-2024 End: 27-79-9455Ipuyby flowsheetNicholas A Brown DPM Work Phone: [facility] [place] PODStart: 07-25-2024 End: 23-89-0048Jiefds flowsheetNicholas A Brown DPM Work Phone: [facility] [place] PODStart: 07-25-2024 End: 65-25-7347Srrsjv follow up visit related to original pxNicjesús Lawton Brown DPM Work Phone: [facility] [place] PODComment on above:Diabetes mellitus due to underlying condition with diabetic polyneuropathy, unspecified whether group home insulin use (CMS/HCC) (Primary Dx); Foot ulcer, left, with fat layer exposed (CMS/HCC)Start: 07-25-2024 End: 54-10-7341jnntucjqgvOIWOGJHK A BROWNNot AvailableStart: 07-24-2024 End: 31-04-4427RynnlhKaga Brock LPNNJORGE SWS IMComment on above:Chronic bilateral low back pain without sciaticaStart: 07-11-2024 End: 18-18-0733Fnchph outpatient visit 25 minutesJarvis Thrasher MD Work Phone: n[facility] SWS IMComment on above:Type 2 diabetes mellitus with diabetic polyneuropathy, without long-term current use of insulin (CMS/HCC) (Primary Dx); Essential hypertension (CMS/HCC); Polyneuropathy associated with underlying disease (CMS/HCC); Atherosclerosis of [place] arteries of extremities with rest pain, bilateral legs (CMS/HCC); History of stroke without residual deficits; Metabolic dysfunction-associated steatotic liver disease (MASLD); Chronic insomnia; Thyroid nodule (CMS/HCC); 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 (CMS/HCC)Start: 07-11-2024 End: 81-40-7046shzahctwssVAAKYA L PHILIPNot AvailableStart: 07-11-2024 End: 58-92-7303qjejtussxpJJGQOIPK A BROWNNot AvailableStart: 07-11-2024 End: 53-02-3173Berfyhd encounter procedureRay Hays DPM Work Phone: [facility] [place] PODComment on above:Diabetes mellitus due to underlying condition with diabetic polyneuropathy, unspecified whether salvage determiner insulin use ([facility]) (Primary Dx); Foot ulcer, left, with fat layer exposed ([facility])Start: 07-07-2024 End: 93-30-0805Emmsgbg encounter procedureRay Hays DPM Work Phone: noMS [place] PODComment on above:Diabetes mellitus due to underlying condition with diabetic polyneuropathy, unspecified whether group home insulin use ([facility]) (Primary Dx); Foot ulcer, left, with fat layer exposed ([facility]); PVD (peripheral vascular disease) ([facility])Start: 07-07-2024 End: 48-38-4648hckkssgyxeQGIFHTGR A BROWNNot AvailableStart: 07-07-2024 End: 04-43-0485Dsilwg alinheetNicjesús Hays DPM Work Phone: [facility] [place] PODStart: 07-07-2024 End: 73-87-8308Lglcsv alinheetNicjesús Hays DPM Work Phone: [facility] [place] PODStart: 06-27-2024 End: 50-96-6639QwaookAfypse Alexysbelisa MANOMS SWS IMComment on above:Chronic bilateral low back pain without sciaticaStart: 06-19-2024 End: 83-77-7983Nlazagy encounter procedureRay Hays DPM Work Phone: [facility] [place] PODComment on above:Diabetes mellitus due to underlying condition with diabetic polyneuropathy, unspecified whether group home insulin use ([facility]) (Primary Dx); PVD (peripheral vascular disease) ([facility]); Foot ulcer, left, with fat layer exposed ([facility])Start: 06-19-2024 End: 32-12-5117nawawvsdhgBBOJQAQU A BROWNNot AvailableStart: 06-12-2024 End: 02-55-6041Upvugc flowsheetNicholas A Brown DPM Work Phone: [facility] [place] PODStart: 06-12-2024 End: 42-49-7647Apfotm flowsheetNicholas A Brown DPM Work Phone: [facility] [place] PODStart: 06-12-2024 End: 34-39-1015tqypkogrlfTNSOWQSH A BROWNNot AvailableStart: 06-12-2024 End: 78-58-4400Buqahrn encounter procedureNicholas A Brown DPM Work Phone: [facility] [place] PODComment on above:Diabetes mellitus due to underlying condition with diabetic polyneuropathy, unspecified whether salvage determiner insulin use ([facility]) (Primary Dx); PVD (peripheral vascular disease) ([facility]); Foot ulcer, left, with fat layer exposed ([facility])Start: 06-05-2024 End: 81-74-4869Ibrfvrr encounter procedureNicholas A Brown DPM Work Phone: [facility] [place] PODComment on above:PVD (peripheral vascular disease) ([facility]) (Primary Dx); Diabetes mellitus due to underlying condition with diabetic polyneuropathy, unspecified whether group home insulin use ([facility]); Foot ulcer, left, with fat layer exposed ([facility])Start: 06-05-2024 End: 80-69-6851ktcpuimmshMEGORZKX A BROWNNot AvailableStart: 06-05-2024 End: 29-05-8702Iuaxvu flowsheetNicholas A Brown DPM Work Phone: [facility] [place] PODStart: 06-05-2024 End: 02-40-2605Oxvlwo flowsheetNicholas A Brown DPM Work Phone: [facility] [place] PODStart: 05-29-2024 End: 34-21-3116yhfjndenqcJACBREGA A BROWNNot AvailableStart: 05-25-2024 End: 74-45-7893ejcnzbadbiTfvmai Hill MD Work Phone: [facility] Work Phone: Start: 05-25-2024 End: 21-28-4394Rrnqvqe encounter Von Thrasher MD Work Phone: [facility] Work Phone: Start: 05-24-2024 End: 67-64-1211Drvsng Wilfredo Thrasher MD Work Phone: [facility] SWS IMStart: 05-08-2024 End: 80-86-8940ReefwcHbvfhx Prachi PELAYO SWS IMComment on above:Chronic bilateral low back pain without sciaticaStart: 04-12-2024 End: 83-56-4550Qlehew outpatient visit 25 minutesGina Estefania Soriano NP Work Phone: [facility] SWS IMComment on above:Type 2 diabetes mellitus with diabetic polyneuropathy, without long-term current use of insulin (CMS/HCC) (Primary Dx); Chronic kidney disease, stage 2 (mild); Essential hypertension (CMS/HCC); History of stroke without residual deficits; Moderate major depression (CMS/HCC); Peripheral arterial disease (CMS/HCC); Pure hypercholesterolemia (CMS/HCC); Spinal stenosis of lumbar region without neurogenic claudication; Chronic insomnia; RICK (obstructive sleep apnea); Chronic pansinusitis; Yeast dermatitis; Chronic bilateral low back pain without sciatica; Morbid obesity (CMS/HCC); Body mass index (BMI) 40.0-44.9, adult (CMS/HCC); Need for immunization against influenza; Postoperative hypothyroidism (CMS/HCC); Cervical cancer screeningStart: 04-12-2024 End: 24-48-4984xinoqsrsmpEMWB R RISALITINot AvailableStart: 03-14-2024 End: 60-51-4013PmscuvQtewrq L Hill MD Work Phone: [facility] SWS IMComment on above:Chronic bilateral low back pain without sciaticaStart: 02-28-2024 End: 98-88-5332cktyljvaeaTomopu Hill MD Work Phone: [facility] Work Phone: Start: 02-28-2024 End: 81-72-8622Qrvrmbeg Gayathri Thrasher MD Work Phone: [facility] Work Phone: Start: 02-15-2024 End: 54-46-7644QgalpcWbkvq [place] LPNNOMS SWS IMComment on above:Chronic bilateral low back pain without sciaticaStart: 01-17-2024 End: 91-50-3853EnldgzAdpvw [place] LPNNOMS SWS IMComment on above:Chronic bilateral low back pain without sciatica; Acute bronchitis, unspecified organism; Acute coughStart: 01-11-2024 End: 42-17-0628KmhgndSmlnugSun [employer] Work Phone: n[facility] SWS IMComment on above:Chronic insomniaStart: 01-05-2024 End: 88-23-8591vyhrutwazaWSTQSZ L HILLNot AvailableStart: 01-05-2024 End: 92-92-7943Itihar outpatient visit 40 minutesJarvis Thrasher MD Work Phone: n[facility] SWS IMComment on above:Type 2 diabetes mellitus with diabetic polyneuropathy, without long-term current use of insulin (CMS/HCC) (Primary Dx); Chronic kidney disease, stage 3a (HCC) (CMS/HCC); Essential hypertension (CMS/HCC); Pure hypercholesterolemia (CMS/HCC); History of stroke without residual deficits; Immunodeficiency due to conditions classified elsewhere (CMS/HCC); Hyperparathyroidism, unspecified (CMS/HCC); Moderate major depression (CMS/HCC); Chronic insomnia; Spinal stenosis of lumbar region with neurogenic claudication; SOB (shortness of breath); Acute bronchitis, unspecified organism; Acute cough; Bilateral carotid bruits; RICK (obstructive sleep apnea); Yeast dermatitisStart: 01-05-2024 End: 45-04-8877Jmwlke Wilfredo Thrasher MD Work Phone: n[facility] External Department UnsolicitedStart: 01-05-2024 End: 34-88-0338ggqbrzixrvKLEGEB Tadeo THRASHERNot AvailableStart: 12-20-2023 End: 29-14-9815AkltjfLovqc [place] LPNNJORGE SWS IMComment on above:Chronic bilateral low back pain without sciaticaStart: 11-19-2023 End: 05-72-1036OzeetcWzopq [place] LPNNOMS SWS IMComment on above:Chronic bilateral low back pain without sciaticaStart: 11-10-2023 End: 65-96-5033Zsfmoo outpatient visit [address] [employer]ER [employer]ATOR [employer] Work Phone: n[facility] SWS IMComment on above:Toe infection (Primary Dx); Amputation of toe of right foot (CMS/HCC); Medication managementStart: 11-09-2023 End: 42-26-1870Azjrtguco encounterTraceNatividad COLLINS PODIATRYComment on above:[facility] treatmentStart: 11-08-2023 End: 90-21-7378Ntcaqjagam and management of inpatientMD Jarvis Thrasher Work Phone: [phone] [facility] Work Phone: Start: 11-05-2023 End: 52-26-5664Lzyiclvah encounterTracey Alf COLLINS PODIATRYComment on above:LT third toe infected per patientStart: 10-13-2023 End: 36-26-6679Qwmltjp encounter procedureEukateryna Torres DPM Work Phone: noms EXT DEPComment on above:Peripheral arterial disease (CMS/HCC) (Primary Dx); Type 2 diabetes mellitus with diabetic polyneuropathy, without long-term current use of insulin (CMS/HCC); Surgical wound present; Status post amputation of lesser toe of right foot (CMS/HCC); Status post amputation of lesser toe of left foot (CMS/HCC); Type II diabetes mellitus with neurological manifestations (CMS/HCC); Pain in both feetStart: 10-13-2023 End: 37-54-8963Tlcnevppv to same day surgery centerHI Jarvis Thrasher Work Phone: [facility] CampusStart: 10-11-2023 End: 72-11-0550ycljkeujelBJ Jarvis Thrasher Work Phone: [facility] Work Phone: Start: 10-11-2023 End: 84-74-8892Mnhgdpk encounter procedureHI Jarvis Thrasher Work Phone: [facility] Rfz-Shb-Srikoxss Testing Work Phone: Start: 06-01-2023 End: 82-48-7709bicrlzgyiyCF Jarvis Thrasher Work Phone: [facility] Work Phone: Start: 06-01-2023 End: 45-61-4121Bdtuhxm encounter procedureHI Jarvis Thrasher Work Phone: [facility]-Lab [facility] Work Phone: Start: 04-30-2023 End: 24-71-9764Ulkyqxddf to same day surgery centerHI Jarvis Thrasher Work Phone: [facility]: 04-30-2023 End: 49-29-3694gjvydybgvhXD Jarvis Thrasher Work Phone: [facility] Work Phone: Start: 39-43-5910Bgtbat flowsheetEugene R Kubitz DPM Work Phone: noMS EXT DEPStart: 66-92-2569Mqgdsw flowsheetEugene R Kubitz DPM Work Phone: n[facility] EXT DEPStart: 61-53-8146Thnls abstractingEmoisesne Estefania Torres DPM Work Phone: [facility] SWS PODIATRYStart: 42-56-2373Jiooqazxj encounter Marilyn Milner RTValentina RNOMS SWS PODIATRYComment on above:Surgery re-scheduleStart: 04-23-2023 End: 91-75-0680Gyedkqdlc to same day surgery centerHI Jarvis Thrasher Work Phone: [facility]: 04-23-2023 End: 85-28-3453jqmtbnziicAT Jarvis Thrasher Work Phone: [facility] Work Phone: Start: 04-16-2023 End: 75-77-5159babmapjbwuTP Jarvis Thrasher Work Phone: [facility] Work Phone: Start: 04-16-2023 End: 26-51-8761Lkecome encounter procedureMD Jarvis Thrasher Work Phone: [facility]-Lab [facility] Work Phone: Start: 04-16-2023 End: 54-00-6318Gxijhd outpatient visit [address] [employer] Work Phone: noms SWS IMComment on above:Encounter for pre- operative cardiovascular clearance (Primary Dx); Type 2 diabetes mellitus with peripheral neuropathy (CMS/HCC); Essential hypertension (CMS/HCC); Stage 2 chronic kidney diseaseStart: 04-16-2023 End: 66-22-6442Zrgommo encounter statusWhit Vance [address] [employer]ER [employer] Work Phone: [facility] Work Phone: Start: 03-24-2023 End: 89-39-8199gboyqnxqfdWlntipa [place] Other [place] [employer] Other Start: 80-05-7540Zwqstm outpatient visit 25 minutes Zaid Barker Vascular SurgeryStart: 03-24-2023 End: 96-98-4503Mbeturr encounter procedureMD Jarvis Thrasher Work Phone: [facility] Vascular Surgery Work Phone: Start: 14-65-9705Pneefgdblq RecurringMD Jarvis Thrasher Work Phone: [facility] Work Phone: Start: 02-19-2023 End: 98-04-8884Ajpawuo encounter procedureEugene Estefania Torres DPM Work Phone: NOFW EXT DEPComment on above:Type II diabetes mellitus with neurological manifestations (CMS/HCC) (Primary Dx); Status post amputation of lesser toe of right foot (CMS/HCC); Status post amputation of lesser toe of left foot (CMS/HCC); Peripheral arterial disease (CMS/HCC); Pain in both feet; Surgical wound presentStart: 02-19-2023 End: 17-59-9858Efijgsnjf to same day surgery centerMD Jarvis Thrasher Work Phone: [facility]-Surgery [facility]Start: 02-19-2023 End: 53-22-9678qopwkohqnsOI Jarvis Thrasher Work Phone: [facility] Work Phone: Start: 02-09-2023 End: 53-68-2064Grpkfwccki RecurringMD Jarvis Thrasher Work Phone: [facility] Work Phone: Start: 02-09-2023 End: 45-39-5890Fpjqtkc encounter procedureMD Jarvis Thrasher Work Phone: [facility] Work Phone: Start: 19-09-4145Rbseqacuuy RecurringMD Jarvis Thrasher Work Phone: [facility] Work Phone: Start: 02-09-2023 End: 39-61-2314dsavnadlryDQ Jarvis [place] Work Phone: [facility] Work Phone: Start: 50-18-6005Crwpafrhk encounterZaid DEMPSEY Infectious DiseaseStart: 01-28-2023 End: 06-30-1644Fciqxeaske and management of inpatientMD Jarvis [place] Work Phone: [phone] [address] [facility] Work Phone: Start: 01-01-2023 End: 98-71-9188Bvcfivi encounter procedureSandra Goetz MD Work Phone: OphthalmologyComment on above:Central retinal vein occlusion, right eye, with macular edema (Primary Dx)Start: 12-09-2022 End: 09-29-9803cyjohxrlsgNXEShel[facility] Work Phone: Start: 12-09-2022 End: 90-79-7714Zlcknqx encounter procedureDPGeremias Kanu Torres Work Phone: [facility] VascularStart: 12-04-2022 End: 89-44-8563Tjfaiph encounter procedureSandra Goetz MD Work Phone: OphthalmologyComment on above:Central retinal vein occlusion, right eye, with macular edema (Primary Dx); Hypertensive retinopathy, bilateral; Type 2 diabetes mellitus without retinopathy (HCC); PseudophakiaStart: 11-11-2022 End: 19-00-3871mjhucdmsjvWqbjoq Ruttino Other [place] [employer] Other Start: 88-96-2467Xskyhf outpatient visit 15 minutes Edith Burdick Vascular SurgeryStart: 11-10-2022 End: 23-85-0324Znrsmynnj department patient visitPHYSICIAN [facility] Work Phone: Start: 10-20-2022 End: 71-98-5566Mpaegklls to same day surgery [facility] Jarvis [place] Work Phone: [facility]-Surgery Center Main [place]Start: 10-20-2022 End: 62-55-9271ntyskjcbnfKC Jarvis [place] Work Phone: [facility] Work Phone: Start: 10-16-2022 End: 01-35-7526ozgnxnaxfuBD Jarvis [place] Work Phone: [facility] Work Phone: Start: 10-16-2022 End: 79-82-2388Kwdffsx encounter procedureMD Jarvis Thrasher Work Phone: [facility]-Lab [place] Work Phone: Start: 10-15-2022 End: 09-25-7404imvyidolkzVC Jarvis Thrasher Work Phone: [facility] Work Phone: Start: 10-15-2022 End: 81-69-5172Yqvrcpez ReferredMD Jarvis Thrasher Work Phone: [facility]-Lab [facility] Work Phone: Start: 08-24-2022 End: 75-73-5503Vdkayjpae to same day surgery centerMD Jarvis Thrasher Work Phone: [facility]gery [facility]Start: 08-20-2022 End: 77-71-2890Tvuigat encounter procedureMD Jarvis Thrasher Work Phone: [facility] Xgl-Jsm-Pipbvscl Testing Work Phone: Start: 08-20-2022 End: 45-98-2226Kfgqplep ReferredMD Jarvis Thrasher Work Phone: [facility]-Lab [facility] Work Phone: Start: 07-30-2022 End: 62-18-7871Dbqklkr encounter procedureMD Jarvis Thrasher Work Phone: [facility]-Ultrasound [facility] VascularStart: 07-10-2022 End: 93-76-0794Ubmfcqalm to same day surgery centerMD Jarvis Thrasher Work Phone: [facility]gery [facility]Start: 07-10-2022 End: 76-06-1783rpbyqyhwwzXW Jarvis Thrasher Work Phone: [facility] Work Phone: Start: 07-07-2022 End: 06-22-1297cmzaziznmdWW Jarvis Thrasher Work Phone: [facility] Work Phone: Start: 07-07-2022 End: 27-88-0989Ufjomsl encounter procedureMD Jarvis Thrasher Work Phone: [facility]-Electrodiagnostics Work Phone: Start: 07-01-2022 End: 56-88-8800Jmskxnsl ReferredMD Jarvis Thrasher Work Phone: [facility]-Lab [place] Work Phone: Start: 14-09-6314Lpwyhl outpatient visit 15 minutes Zaid Barker Vascular SurgeryStart: 04-30-2022 End: 06-35-6161fjcsahjzgxAQ Javris Thrasher Work Phone: [facility] Work Phone: Start: 04-30-2022 End: 92-78-2407Ujmmqdv encounter procedureMD Jarvis Thrasher Work Phone: [facility]-Ultrasound [facility] VascularStart: 03-27-2022 End: 02-04-6791Mkwqcmcmr to same day surgery centerMD Jarvis Thrasher Work Phone: [facility]-Surgery [facility]Start: 03-27-2022 End: 68-73-2879aurexkdxvhSN Jarvis Thrasher Work Phone: [facility] Work Phone: Start: 03-25-2022 End: 60-25-5237qscesaoxiaFO Jarvis Thrasher Work Phone: [facility] Work Phone: Start: 03-25-2022 End: 32-17-8254Scrjhtb encounter procedureMD Jarvis Thrasher Work Phone: [facility]-Lab [place] Work Phone: Start: 02-19-2022 End: 58-79-4300axnbyztjwmHcrlgml [place] Other [place] [employer] Other Start: 08-87-5268Mumuhdwge encounterMatthew Yaa [facility] Vascular SurgeryStart: 02-02-2022 End: 35-21-3347flnklhnrjkEV Jarvis Thrasher Work Phone: [facility] Work Phone: Start: 02-02-2022 End: 04-98-1911Yhevadx encounter procedureMD Jarvis Thrasher Work Phone: [facility]-Lab [facility] Work Phone: Start: 02-02-2022 End: 20-37-2532YI Jarvis Thrasher Work Phone: [facility]Start: 01-06-2022 End: 39-99-3834Kbxyjthrkv and management of inpatientMD Jarvis Thrasher Work Phone: [facility] Work Phone: Start: 01-06-2022 End: 77-10-2422JJ Jarvis Thrasher Work Phone: [facility]-4 North SurgicalStart: 01-06-2022 End: 15-09-3877lryydsxfsxOP Jarvis Thrasher Work Phone: [facility] Work Phone: Start: 01-06-2022 End: 48-74-2123Fqzszjkk ReferredMD Jarvis Thrasher Work Phone: [facility]-Lab [place] Work Phone: Start: 01-06-2022 End: 56-37-1416TN Jarvis Thrasher Work Phone: [facility]Lab [facility]: 01-06-2022 End: 83-31-6567Ivxuwqvpu department patient visitMD Jarvis Thrasher Work Phone: [facility]-Emergency Room Work Phone: Start: 01-06-2022 End: 33-56-3524TU Jarvis Thrasher Work Phone: [facility]-Emergency RoomStart: 12-26-2021 End: 40-04-2111Fdiknbxtgx and management of inpatientMD Jarvis Thrasher Work Phone: [facility] Work Phone: Start: 12-26-2021 End: 91-08-3141XU Jarvis Thrasher Work Phone: [facility] [place] [facility] SurgStart: 12-23-2021 End: 33-80-8956RD Jarvis Thrasher Work Phone: [facility]-Ultrasound [place] Start: 12-17-2021 End: 41-41-4320jelujunobdPhoort Zaky Other [place] [employer] Other Start: 94-20-5414Lrzpygr encounter procedureSherif LillianFPG Pain ManagementStart: 12-16-2021 End: 39-55-2508Setrkcycbz and management of inpatientMD Jarvis Thrasher Work Phone: [facility] Work Phone: Start: 12-16-2021 End: 48-76-7360KO Jarvis Thrasher Work Phone: [facility]-4 [facility] SurgicalStart: 12-16-2021 End: 73-16-0888erpbkzsiyhBE Jarvis Thrasher Work Phone: [facility] Work Phone: Start: 12-16-2021 End: 61-15-2976WP Jarvis Thrasher Work Phone: [facility]-MRI [address] RdStart: 12-09-2021 End: 72-18-1227nxklmouwniEE Jarvis Thrasher Work Phone: [facility] Work Phone: Start: 12-09-2021 End: 75-42-1000Kpqrqsl encounter procedureMD Jarvis Thrasher Work Phone: [facility] Sua-Ton-Ylnlacti Testing Start: 12-09-2021 End: 77-24-1130FB Jarvis Thrasher Work Phone: [facility] Mag-Vsu-Lbpxxnkj Testing Start: 12-03-2021 End: 74-35-0588Tpfltorgts and management of inpatientMD Jarvis Thrasher Work Phone: [facility]-4 [place] SurgicalStart: 12-03-2021 End: 64-36-5157LZ Jarvis Thrasher Work Phone: [facility]-4 [place] SurgicalStart: 12-03-2021 End: 99-47-3920dazfceviuvDypnlmr Lang[place] Other [employer] Other Start: 94-39-2109Scmiqyinr encounterZaid DEMPSEY Vascular SurgeryStart: 11-26-2021 End: 61-54-0698kagdmfqeuxZbsxalc Lang[place] Other [employer] Other Start: 09-74-0912Jksxpb outpatient visit 15 minutes Zaid Barker Vascular SurgeryStart: 11-04-2021 End: 39-10-9636Jciquvjkdy and management of inpatientMD Jarvis Thrasher Work Phone: [facility] SurgStart: 11-04-2021 End: 79-17-5973LV Jarvis Thrasher Work Phone: [facility] [place] [facility] SurgStart: 11-03-2021 End: 72-18-0433oojdeeesgrSjbqbhx Lang[place] Other [employer] Other Start: 08-62-8590Tdedtuvft encounterMattanamaria Mon [facility] Vascular SurgeryStart: 11-02-2021 End: 65-55-6649Vfsgqdfxg department patient visitMD Jarvis Thrasher Work Phone: [facility]-Emergency RoomStart: 11-02-2021 End: 64-17-7473PF Jarvis Thrasher Work Phone: [facility]-Emergency RoomStart: 10-29-2021 End: 99-27-2820mjpfxdltreXkzixj Ruttino Other [facility] [employer] Other Start: 13-47-1097Tfphpj-up encounterEdith Garica Vascular SurgeryStart: 10-13-2021 End: 19-26-8732Wcpkzvkkzo and management of inpatientMD Jarvis Thrasher Work Phone: [facility]-4 [place] SurgicalStart: 10-13-2021 End: 13-59-0850HO Jarvis Thrasher Work Phone: [facility]-4 [place] SurgicalStart: 10-10-2021 End: 83-96-7016Qfrrqyx encounter procedureMD Jarvis Thrasher Work Phone: [facility] Xzq-Ldt-Zzpvdvbo Testing Start: 10-10-2021 End: 24-04-3789ZE Jarvis Thrasher Work Phone: [facility] [facility] Start: 09-27-2021 End: 14-97-0107Xrtpnnahtk and management of inpatientMD Jarvis Thrasher Work Phone: [facility] [place] [facility] Start: 09-27-2021 End: 97-05-7806QF Jarvis Thrasher Work Phone: [facility] [place] [facility] Start: 09-26-2021 End: 44-42-2999Yiqecfncz department patient visitMD Jarvis Thrasher Work Phone: [facility]-Emergency RoomStart: 09-26-2021 End: 86-89-9465EJ Jarvis Thrasher Work Phone: [facility]-Emergency RoomStart: 09-26-2021 End: 84-28-3635Pyaeznvmt department patient visitMD Jarvis Thrasher Work Phone: [facility]-Emergency RoomStart: 09-26-2021 End: 20-17-5363FY Jarvis Thrasher Work Phone: [facility]-Emergency RoomStart: 09-25-2021 End: 78-67-9372grodxudopkEmcnqhd [place] Other [employer] Other Start: 93-89-0765Tpfztqaee for other preprocedural examinationMatthew Mary JoG Vascular SurgeryStart: 86-49-5117Hcmruhiqf encounterMattheraji CamargoG Vascular SurgeryStart: 09-18-2021 End: 18-53-2668zzldmrahrpEelkykj [place] Other [employer] Other Start: 94-87-1656Giwwhdgrl encounterMattanamaria Mon [facility] Vascular SurgeryStart: 09-11-2021 End: 72-94-8978Hsfzfcr encounter procedureMD Jarvis Thrasher Work Phone: [facility] CampusStart: 08-27-2021 End: 93-01-8597Aoyramn encounter procedureChchristiano Shaw DPM Work Phone: OrthopaedicsComment on above: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); Amputation of toe of left foot (HCC); DM (diabetes mellitus), type 2 with peripheral vascular complications (HCC) Start: 08-21-2021 End: 98-78-2544cacbbiqozmQuncnuc [place] Other [employer] Other Start: 00-57-3674Efslph outpatient visit 15 minutes Zaid Barker Vascular SurgeryStart: 07-16-2021 End: 27-37-0640uhcwdldsqvCldkevx [place] [facility] [employer] Other Start: 20-73-3634Ffzsvr outpatient visit 25 minutes Zaid Barker Vascular SurgeryStart: 03-06-2021 End: 82-81-0585qiisrzoatwAxceimq [place] Other [place] [employer] Other Start: 58-71-1119Mnamxl outpatient visit 40 minutes Zaid Barker Vascular SurgeryStart: 03-14-2019 End: 12-31-3949Avreday encounter procedureJACK HAYFacility:H1 Procedures DateProcedureProcedure DetailPerforming ClinicianStart: 28-68-9604Aqprn chest X-rayJarvis Thrasher MD Work Phone: Start: 23-50-4098Qjyyybic tomography of abdomen and pelvis with contrastJarvis Thrasher MD Work Phone: Start: 20-49-5287EK of head without contrastJarvis Thrasher MD Work Phone: Start: 35-57-4553Pkuajligtw elastography of liver Jarvis Thrasher MD Work Phone: Start: 79-27-8249Qjqzakah blood count with white cell differential, automatedRay Hays DPM Work Phone: Start: 50-21-3681JpllsqvookfVkyrtq Hill MD Work Phone: Start: 86-74-0187POTWVWR POCT GLUCOMETERSRay Hays DPM Work Phone: Start: 90-03-5556CP arterial pvr limited Adam Thrasher MD Work Phone: Start: 89-78-1208Wkxfxfwxzh glycosylated o1kTysdgpJarvis Thrasher MD Work Phone: Start: 74-04-4083Xcmrmlalyu glycosylated v1hRdhvsdJarvis Thrasher MD Work Phone: Start: 84-07-3472Ebzwomcetv exam chest 2 viewsJarvis Thrasher MD Work Phone: Start: 32-95-2453Nhfwp metabolic panel calcium total Jarvis Thrasher MD Work Phone: Start: 58-83-8882IWAJGHWU STATUS REPORTJarvis Thrasher MD Work Phone: Start: 26-53-3694LxgidueyrguZM Jarvis Philip Work Phone: Start: 61-05-5290Cnkndcuvruftr of transfusion reaction MD Jarvis Thrasher Work Phone: Start: 64-74-9180CllxfijsgqqNO Jarvis Thrasher Work Phone: Start: 84-46-5837UgjajihmtauGI Jarvis Thrasher Work Phone: Start: 58-43-5480Ndnivctoyz of toe Jarvis Thrasher Work Phone: Start: 57-78-0364Hhlqeiv microbial cultureHI Jarvis Thrasher Work Phone: Start: 56-39-1881Nnsogvjnd microbial culture Jarvis Thrasher Work Phone: Start: 27-83-3799Cbemxjmnihjtc of transfusion reaction MD Jarvis Thrasher Work Phone: Start: 43-45-3019Tkpngcmvn of peripherally inserted central catheterMD Jarvis Thrasher Work Phone: Start: 36-96-2665TDY of left foot with contrast Jarvis Thrasher Work Phone: Start: 86-37-8476Whiheal microbial culture Jarvis Thrasher Work Phone: Start: 97-25-3911Wwicx limb angiographyMD Jarvis Thrasher Work Phone: Start: 31-22-8760H-ray of left footMD Jarvis Thrasher Work Phone: Start: 55-40-5009Kxobh culture for bacteria, including anaerobic screenMD Jarvis Thrasher Work Phone: Start: 81-07-2514Dxzlutyneotx njx pharmacologic agt spLibertad Goetz MD Work Phone: Start: 99-40-2414Dcnarpgoteqf ophthalmic imaging retinaSandra Goetz MD Work Phone: Start: 47-71-8362Xhnzkcslnzmv ophthalmic imaging retinaSandra Goetz MD Work Phone: Start: 63-23-0056Dcyeqitjgwxz njx pharmacologic agt spLibertad Goetz MD Work Phone: Start: 73-18-6959Raniul scan of lower limb veinsDPM Kanu Quintanaceli Work Phone: start: 25-42-9884OeuoxummwjdCR Jarvis [place] Work Phone: Start: 96-32-9409Hombzxl microbial cultureMD Jarvis [place] Work Phone: Start: 37-21-7334SnmvluabkcdHF Jarvis [place] Work Phone: Start: 51-35-7729Zewwqtd microbial cultureHI Jarvis [place] Work Phone: Start: 01-56-8061Krrbpixdd microbial cultureMD [facility] Work Phone: Start: 59-99-6788Rmefhwzpetzqi of transfusion reaction MD Jarvis Thrasher Work Phone: Start: 13-82-7121Lskep brachial pressure indexHI Jarvis [place] Work Phone: Start: 18-80-2277Nwdlcr scan of lower limb arteriesMD Jarvis [place] Work Phone: Start: 97-64-3514VztiiujliamSG Jarvis [place] Work Phone: Start: 71-17-1654Wvcguvz microbial cultureMD Jarvis Thrasher Work Phone: Start: 84-29-4520Gxqvgw scan of lower limb arteriesMD Jarvis Thrasher Work Phone: Start: 45-15-9212Llavx brachial pressure indexMD Jarvis Thrasher Work Phone: Start: 19-67-4903DnaxbzairfoYL Jarvis Thrasher Work Phone: Start: 88-65-9435ZholghyxbixFyvnfsw Didion Work Phone: Start: 87-86-6715Wofthyl microbial cultureMD Jarvis Thrasher Work Phone: Start: 38-23-3123W-ray of left footMD Jarvis Thrasher Work Phone: start: 15-34-1049UNF of left footMD Jarvis Thrasher Work Phone: Start: 87-06-2356A-ray of left footMD Jarvis Thrasher Work Phone: Start: 17-37-9581Ntjqfaz microbial cultureMD Jarvis Thrasher Work Phone: Start: 01-22-0857Wbpza culture for bacteria, including anaerobic screenMD Jarvis Thrasher Work Phone: Start: 45-52-5591EDAA-CoV-2, Influenza & RSV (PCR) Jarvis Thrasher Work Phone: Start: 81-39-6195Pasmudz ultrasonography of bilateral carotid arteriesMD Jarvis Thrasher Work Phone: Start: 13-09-8013VC Jarvis Thrasher Work Phone: Start: 12-93-1804AYA of left footMD Jarvis Thrasher Work Phone: Start: 72-20-3605Ipigdwwywdyxzie of limbMD Jarvis Thrasher Work Phone: Start: 27-42-0615Plfkx X-ray of left tibia and left fibulaMD Jarvis [place] Work Phone: Start: 11-54-7237XS Wound Debridement/I&D/Hydradenitis (Left)MD Jarvis Thrasher Work Phone: Start: 40-94-5886HB Jarvis Philip Work Phone: Start: 37-45-5763TP Wound Debridement/I&D/Hydradenitis (Left)MD Jarvis Thrasher Work Phone: Start: 42-56-1207QV Jarvis Philip Work Phone: Start: 72-14-8048Chagaigwqo peripheral vascular flow studyMD [facility] Work Phone: Start: 46-90-8780QM of abdomen and pelvis without contrastMD [facility] Work Phone: Start: 89-18-0029K-ray of left footMD [facility] Work Phone: Start: 51-79-0565XwhoinhxaghAfvmxldddst Colin DPM Work Phone: Start: 43-56-7503NqlncwhezefHlsrxsu [address] [employer] Work Phone: Aerobic microbial cultureLexington [facility] Work Phone: Aerobic microbial cultureLexington [facility] Medical Center Work Phone: Aerobic microbial cultureLexington [facility] Medical Center Work Phone: Aerobic microbial cultureLexington [facility] Medical Center Work Phone: Aerobic microbial cultureMD [facility] Work Phone: Anaerobic microbial cultureLexington [facility] Medical Center Work Phone: Anaerobic microbial cultureLexington [facility] Medical Center Work Phone: Blood culture for bacteria, including anaerobic screen MD Jarvis Thrasher Work Phone: Blood culture for bacteria, including anaerobic screen MD Jarvis Thrasher Work Phone: Blood culture for bacteria, including anaerobic screen MD Jarvis Thrasher Work Phone: Blood culture for bacteria, including anaerobic screen MD Jarvis Thrasher Work Phone: Blood culture for bacteria, including anaerobic screen MD Jarvis Thrasher Work Phone: History of amputation of lesser toeStatus post amputation of lesser toe of right foot (CMS/HCC)Kanu Torres DPM Work Phone: History of amputation of lesser toeStatus post amputation of lesser toe of left foot (CMS/HCC)Kanu Torres DPM Work Phone: History of amputation of lesser toeStatus post amputation of lesser toe of right foot (CMS/HCC)Kanu Torres DPM Work Phone: History of amputation of lesser toeStatus post amputation of lesser toe of left foot (CMS/HCC)Kanu Torres DPM Work Phone: Investigation of transfusion reactionMD Jarvis Thrasher Work Phone: Investigation of transfusion reactionMD Jarvis Thrasher Work Phone: SARS Antigen (LFIA)MD Jarvis Thrasher Work Phone: SARS Antigen (LFIA)MD Jarvis Thrasher Work Phone: SARS Antigen (LFIA)MD Jarvis Thrasher Work Phone: SARS Antigen (LFIA)MD Jarvis Thrasher Work Phone: [phone]-QzX-2, Influenza & RSV (PCR)MD Jarvis Thrasher Work Phone: MD Jarvis Thrasher Work Phone: MD Jarvis Thrasehr Work Phone: MD Jarvis Thrasher Work Phone: MD Jarvis Thrasher Work Phone: Plan of Treatment DateCare ActivityDetailAuthorStart: 16-27-8818Rijzmhwv ScreeningDiabetes ScreeningCleshelby memorial hospital ClinicStart: 27-72-7092Lhlfebcg screeningDiabetes: Retinopathy ScreeningNOTN HealthcareStart: 97-37-2155Utmxh screening for protein Diabetes: Urine Protein ScreeningOzarks Medical CenterStart: 01-17-2025 End: 89-33-5086Dcrlvcn encounter typbblmtn05/05/2025 2:30 PM EST Office Visit [facility] [address] [place] [address] [facility] MedicineStart: 93-27-8090Rkfjbjezvn A1c measurementDiabetes: Hemoglobin N1HBGRUSaint Louis University HospitalStart: 68-15-3049Ppmef screening for proteinDiabetes: Urine Protein ScreeningNOSaint Louis University HospitalStart: 27-68-6317PvztewfyjSamaritan Hospitaltart: 37-73-2087Memvquvn to vascular surgeonSamaritan Hospitaltart: 08-51-1175Brhrpuka to greeter [facility] Hospitaltart: 21-01-1706XhuympzawSamaritan Hospitaltart: 08-19-1871ViliyezplSamaritan Hospitaltart: 49-86-1995SQ Foot - left [facility] 74-42-6511QO Lower leg - left W contrast [facility]tart: 08-99-5130FW of left foot with contrastCT foot LT w [facility]: 24-87-7591RM of lower leg with contrastCT lower leg LT w [facility]art: 13-09-6421AdlqwyfqaSamaritan Hospitaltart: 76-86-4340Uiomrwkw admissionSamaritan Hospitaltart: 12-29-2024 End: 55-73-5140MvbvwykliSamaritan Hospitaltart: 20-52-4256Qnpqjiqc identified in Blood by CultureBlood CultureUniversity Hospitals Ahuja Medical Center Start: 12-12-2024 End: 12-16-6615Skefkrv encounter /30/2025 2:00 PM EDT Office Visit [facility] [address] [place] [address] Ray Hays DPM [address] [facility] [address] [place] [address] [facility] PodiatryStart: 12-05-2024 End: 80-77-0485Lhmakzj encounter ynvxyhqxf96/23/2025 2:30 PM EDT Office Visit NOMThanh [facility] [address] [place] [address] [phone] Ray Hays, DPM [address] [address] LINDAThanh [facility]itas [facility]quin PodiatryStart: 11-21-2024 End: 13-70-3287Dxugfip encounter jplfhsxup15/09/2025 2:20 PM EDT Office Visit LINDAThanh [facility]ena [facility] [address] [place] [address] Ray Hays, DPM [address] [address] LINDAThanh Zena Nuñez PodiatryStart: 90-33-6354Qwmfvxclh vaccinationInfluenza Vaccine (#1)NOMThanh HealthcareStart: 11-08-2024 End: 22-48-0187Fsfnwyb encounter bwinlrvwg09/27/2025 4:30 PM EDT Office Visit [facility] [address] [place] [address] Ray Hays DPM [address] [address] LINDAThanh Freitas [facility]iatryStart: 10-25-2024 End: 42-02-3723Usjidfc encounter crkxcbeww38/13/2025 4:30 PM EDT Office Visit [facility] [address] [place] [address] Ray Hays, DPM [address] [address] [facility]iatryStart: 10-23-2024 End: 23-95-9830QlnhknjejSamaritan Hospitaltart: 82-41-4037KyyoeezlxSamaritan Hospitaltart: 88-04-2802Dlngssoa to infectious diseases physicianSamaritan Hospitaltart: 23-48-2092Uuuvbyfr identified in Blood by CultureBlood CultureSamaritan Hospitaltart: 57-35-3389Fcaylxmo to vascular surgeonSamaritan Hospitaltart: 10-83-6061Fcwfszjv to neurologistSamaritan Hospitaltart: 96-02-7547Fqdhyfon to podiatristSamaritan Hospitaltart: 52-94-2277WgxmodgjkSamaritan Hospitaltart: 11-63-0523Tqtisyei admission [facility]: 06-66-8620NmyjsrnvjSamaritan Hospitaltart: 15-48-8982Eeemaxrn tomography of abdomen and pelvis with contrastCT abdomen pelvis w [facility]art: 80-67-2494PP Abdomen and Pelvis W contrast IVFHolzer Medical Center – Jacksontart: 70-23-0309T-ray of left footXR foot LT min 3V*[facility] Start: 44-76-3025KW Foot - left GE 3 ViewsUniversity Hospitals Ahuja Medical Center Start: 10-19-2024 End: 46-84-8702Rltvibi encounter zzlnnordn19/07/2025 10:40 AM EDT Office Visit [facility] [address] [facility] [address] [place] [phone] Ray Hays DPM [address] [address] [facility]ODIATRYStart: 10-18-2024 End: 47-44-7801Trudvdw encounter nrgxypkrk70/06/2025 2:10 PM EDT Office Visit [facility] [address] [place] [phone] Ray Hays DPM [address] [address] [facility] PodiatryStart: 10-17-2024 End: 82-23-5926Btoxcjh encounter procedureNOMS [facility]LLINS IMStart: 10-10-2024 End: 84-07-1767Grnffze encounter ukxwglfkl37/29/2025 3:20 PM EDT Office Visit [facility] [address] [place] [address] Ray Hays DPM [address] [address] [facility]TH[facility] CAGLE PODStart: 10-10-2024 End: 58-85-1027LDJ W Auto Differential panel - BloodCBC and differential Lab Routine Type 2 diabetes mellitus with diabetic polyneuropathy, without long-term current use of insulin ([facility]) Expected: 10/10/2024 (Approximate), Expires: 01/10/2025NOTN [facility] Work Phone: Comment on above:Expected: 10/10/2024 (Approximate), Expires: 01/10/2025Start: 10-10-2024 End: 92-55-2282Bxjzmjwvkflbk metabolic 2000 panel - Serum or PlasmaComprehensive metabolic panel Lab Routine Type 2 diabetes mellitus with diabetic polyneuropathy, without long-term current use of insulin ([facility]) Expected: 10/10/2024 (Approximate), Expires: 01/10/2025[facility] HealthcareComment on above: Expected: 10/10/2024 (Approximate), Expires: 01/10/2025Start: 10-10-2024 Hemoglobin A1c measurementDiabetes: Hemoglobin T3JDABJ HealthcareStart: 10-10-2024 End: 73-68-1196Qvbnwihxji a1c with eagHemoglobin a1c with eag Lab Routine Type 2 diabetes mellitus with diabetic polyneuropathy, without long-term current use of insulin (CMS/HCC) Expected: 10/10/2024 (Approximate), Expires: 01/10/2025[facility] HealthcareComment on above:Expected: 10/10/2024 (Approximate), Expires: 01/10/2025Start: 63-68-2821FdseqkkcmSamaritan Hospitaltart: 37-63-6508JY arterial pvr limited LEUS arterial pvr limited [facility] CenterStart: 39-16-8459CcxgozcqgSamaritan Hospitaltart: 09-27-2024 End: 72-55-8425Wbygzql encounter /16/2025 4:20 PM EDT Office Visit [facility] [address] [place] [address] [phone] Ray Hays DPM [address] [address] [facility] [place] PODStart: 07-09-2025Medicare Annual Wellness (AWV) Medicare Annual Wellness (AWV)[facility] HealthcareStart: 08-21-2024 End: 96-43-9640Ogebduz encounter tunlrnptc81/09/2025 2:40 PM EDT Office Visit [facility] [address] [place] [address] Ray Hays DPM [address] [address] [facility] [place] PODStart: 08-02-2024 End: 73-38-6604Dbvpbbe encounter kcnftynic31/21/2025 3:00 PM EDT Office Visit [facility] [address] [place] [address] Ray Hays DPM [address] [address] [facility] [place] PODStart: 07-25-2024 End: 76-75-3957Akxwezz encounter procedureNOMS [place] PODComment on above:Diabetes mellitus due to underlying condition with diabetic polyneuropathy, unspecified whether group home insulin use ([facility]) (Primary Dx); Foot ulcer, left, with fat layer exposed ([facility])Start: 69-49-7699Bxxeaagbho A1c measurementDiabetes: Hemoglobin T2QJZLL HealthcareStart: 07-11-2024 End: 39-62-2815Zttxjhg encounter procedureNOMS SWS IMComment on above:Type 2 diabetes mellitus with diabetic polyneuropathy, without long-term current use of insulin (CMS/HCC) (Primary Dx); Essential hypertension (CMS/HCC); Pure hypercholesterolemia (CMS/HCC); Atherosclerosis of [place] arteries of extremities with rest pain, bilateral legs (CMS/HCC); History of stroke without residual deficits; Metabolic dysfunction-associated steatotic liver disease (MASLD); Chronic insomnia; Thyroid nodule (CMS/HCC); 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 (CMS/HCC)Start: 07-07-2024 End: 08-32-3057Vufdwcp encounter procedureNOMS [place] PODComment on above:Diabetes mellitus due to underlying condition with diabetic polyneuropathy, unspecified whether group home insulin use (CMS/HCC) (Primary Dx); Foot ulcer, left, with fat layer exposed (CMS/HCC); PVD (peripheral vascular disease) (CMS/HCC)Start: 06-28-2024 End: 82-68-4567Imivajo encounter zjtcjveyd07/16/2025 1:30 PM EDT Office Visit [facility] [address] [place] [address] Ray Hays DPM [address] [address] [facility] [place] PODStart: 06-19-2024 End: 91-98-5770Xnnqnst encounter ptosqgjkt13/07/2025 4:40 PM EDT Office Visit [facility] [address] [place] [address] [phone] Ray Hays DPM [address] [address] [facility] [place] PODStart: 06-05-2024 End: 47-65-5151Hholvfq encounter hyfacdwuc20/24/2025 2:10 PM EDT Office Visit [facility] [address] [place] [address] Ray Hays DPM [address] [address] PVD (peripheral vascular disease) (CMS/HCC) (Primary Dx); Diabetes mellitus due to underlyingcondition with diabetic polyneuropathy, unspecified whether salvage determiner insulin use (CMS/HCC); Foot ulcer, left, with fat layer exposed (CMS/HCC)[facility]OM[facility] [place] PODComment on above:PVD (peripheral vascular disease) (CMS/HCC) (Primary Dx); Diabetes mellitus due to underlying condition with diabetic polyneuropathy, unspecified whether group home insulin use (CMS/HCC); Foot ulcer, left, with fat layer exposed (CMS/HCC)Start: 50-56-7247Jaicd screening for proteinDiabetes: Urine Protein ScreeningOzarks Medical CenterStart: 31-08-7891Kwjgywr [facility] Work Phone: Start: 35-82-4674QGLOMGCZ SCREENDIABETES SCREEN [facility] Rehabilitationtart: 04-12-2024 End: 249756-kuuuyrlpyfhibk D3 [Mass/volume] in Serum or PlasmaVitamin D 25 hydroxy Total Lab Routine Chronic kidney disease, stage 2 (mild) Expected: 04/12/2024 (Approximate), Expires: 07/11/2024[facility] HealthcareComment on above: Expected: 04/12/2024 (Approximate), Expires: 07/11/2024Start: 04-12-2024 End: 74-96-2320VSO W Auto Differential panel - BloodCBC and differential Lab Routine Chronic kidney disease, stage 2 (mild) Expected: 04/12/2024 (Approx imate), Expires: 07/11/2024[facility] Healthcare Work Phone: Comment on above:Expected: 04/12/2024 (Approximate), Expires: 07/11/2024Start: 04-12-2024 End: 36-16-0991Jelxqjxyvyqye metabolic 2000 panel - Serum or PlasmaComprehensive metabolic panel Lab Routine Chronic kidney disease, stage 2 (mild) Expected: 04/12/2024 (Approximate), Expires: 07/11/2024[facility] HealthcareComment on above: Expected: 04/12/2024 (Approximate), Expires: 07/11/2024Start: 04-12-2024 End: 32-33-7037Mztqf 1996 panel - Serum or PlasmaLipid panel Lab Routine Pure hypercholesterolemia (CMS/HCC) Expected: 04/12/2024 (Approximate), Expires: 07/11/2024NOMS HealthcareComment on above:Expected: 04/12/2024 (Approximate), Expires: 07/11/2024Start: 04-12-2024 End: 06-94-9381Yxopevhsshac/Creatinine panel in random UrineMicroalbumin / creatinine urine ratio Lab Routine Chronic kidney disease, stage 2 (mild) Essential hypertension (CMS/HCC) Expected: 04/12/2024 (Approximate), Expires: 07/11/2024NOTN HealthcareComment on above:Expected: 04/12/2024 (Approximate), Expires: 07/11/2024Start: 04-12-2024 End: 15-53-4759Ohcotnw encounter qznnabipt59/29/2025 2:00 PM EST Office Visit [facility] [address] [place] [phone] Claudy Soriano, RO[employer] [address] [place] [address] [facility] IMStart: 04-12-2024 End: 56-24-5927Ymmlakkxyup [Units/volume] in Serum or PlasmaTSH Lab Routine Postoperative hypothyroidism (CMS/HCC) Expected: 04/12/2024 (Approximate), Expires:07/11/2024NOTN HealthcareComment on above:Expected: 04/12/2024 (Approximate), Expires: 07/11/2024Start: 04-12-2024 End: 31-06-7654Oyjaaxdqo (T4) free [Mass/volume] in Serum or PlasmaT4, free Lab Routine Postoperative hypothyroidism (CMS/HCC) Expected: 04/12/2024 (Approximate), Expires: 07/11/2024NOTN HealthcareComment on above:Expected: 04/12/2024 (Approximate), Expires: 07/11/2024Start: 04-12-2024 End: 53-42-2937Mbmzuelpzhiyehfh (T3) Free [Mass/volume] in Serum or PlasmaT3, free Lab Routine Postoperative hypothyroidism (CMS/HCC) Expected: 04/12/2024 (Approximate), Expires: 07/11/2024NOTN HealthcareComment on above:Expected: 04/12/2024 (Approximate), Expires: 07/11/2024Start: 04-12-2024 End: 22-44-6456Nqomitjomt complete panel - UrineUrinalysis with microscopic Lab Routine Chronic kidney disease, stage 2 (mild) Essential hypertension (CMS/HCC) Expected: 04/12/2024 (Approximate), Expires: 07/11/2024NOTN HealthcareComment on above:Expected: 04/12/2024 (Approximate), Expires: 07/11/2024Start: 04-06-2024 Hemoglobin A1c measurementDiabetes: Hemoglobin N5IMBOF HealthcareStart: 94-39-6768BsfabzbfrhtOY Colonoscopy Diagnostic (Not Applicable)[facility]: 01-16-2024 End: 63-63-7715NIX MACULA CIRRUS OU (BOTH EYES)OCT MACULA CIRRUS OU (BOTH EYES) OPHT Imaging Routine Central retinal vein occlusion, right eye, with macular edema Expected: 01/16/2024, Expires: 06/24/2024[facility] Work Phone: Comment on above:Expected: 01/16/2024, Expires: 06/24/2024Start: 01-05-2024 End: 83-09-9437Osruayj encounter procedureNOMS SWS IMComment on above:Type 2 diabetes mellitus with diabetic chronic kidney disease (CMS/HCC); Chronic kidney disease, stage 3a (HCC) (CMS/HCC); Immunodeficiency due to conditions classified elsewhere (CMS/HCC); Hyperparathyroidism, unspecified (CMS/HCC)Start: 01-05-2024 End: 67-96-2202NK.doppler Carotid arteries - bilateralVascular US carotid artery duplex bilateral Imaging Routine Bilateral carotid bruits Expected: 01/05/2024 (Approximate), Expires: 04/06/2024[facility] Healthcare Work Phone: Comment on above:Expected: 01/05/2024 (Approximate), Expires: 04/06/2024Start: 12-19-2023 End: 10-31-5535WHD MACULA CIRRUS OU (BOTH EYES)OCT MACULA CIRRUS OU (BOTH EYES) OPHT Imaging Routine Central retinal vein occlusion, right eye, with macular edema Hypertensive retinopathy, bilateral Type 2 diabetes mellitus without retinopathy (HCC) Pseudophakia Expected: 12/19/2023, Expires: 05/27/2024 [facility] Work Phone: Comment on above:Expected: 12/19/2023, Expires: 05/27/2024Start: 11-15-2023 End: 67-91-2441Yeiiz metabolic 1998 panel - Serum or PlasmaBasic metabolic panel Lab Routine Toe infection Medication management Expected: 11/15/2023 (Approxim ate), Expires: 11/09/2024[facility] Work Phone: Comment on above:Expected: 11/15/2023 (Approximate), Expires: 11/09/2024Start: 16-71-4023Rsgvfcxiz vaccinationInfluenza Vaccine (#1) [facility] HealthcareStart: 11-10-2023 End: 88-82-2979Npawznu encounter acoddaiex16/28/2024 9:15 AM EDT Office Visit [facility] [address] [place] [address] Claudy Soriano, RO[employer] [address] [address] [place] [address] SRAVANTHI COLLINS IMStart: 25-11-4540ClpgnmsfgSamaritan Hospitaltart: 50-87-9694Fyeagcud to podiatristUniversity Hospitals Ahu[facility] Start: 53-39-9743Kztkhymu admissionSamaritan Hospitaltart: 13-66-3308TlgldyhiwSamaritan Hospitaltart: 03-77-8184E-ray of left footXR foot LT min 3V*[facility]: 13-42-0347JJ Foot - left GE 3 ViewsSamaritan Hospitaltart: 55-95-8021Pzsztvlx identified in Blood by CultureSamaritan Hospitaltart: 38-61-4751UyglflnuuSamaritan Hospitaltart: 13-67-4822BuobkwwwmSamaritan Hospitaltart: 06-22-2024Medicare Annual Wellness (AWV)Medicare Annual Wellness (AWV)[facility] HealthcareStart: 52-84-0237Zloyjiiogy A1c measurementDiabetes: Hemoglobin A1C [facility] HealthcareStart: 06-01-2023 End: 42-57-8440Owwiepc encounter uhcccgtzp42/19/2024 1:30 PM EDT Office Visit [facility] [address] [place] [address] Jarvis Thrasher MD [address] [place] [address] [facility] IMStart: 52-25-9484JpyeatcqtUniversity Hospitals Ahuja Medical Center Start: 05-04-2023 End: 69-67-8836Cbgelte encounter /20/2024 2:00 PM EST Office Visit [facility] [address] [place] [address] Kanu Torres, DPM [address] [place] [address] [facility] PODIATRYStart: 72-27-4050AcxjkroifSamaritan Hospitaltart: 03-94-8827WzbeoqlfpSamaritan Hospitaltart: 04-26-2023 End: 47-14-1324Qbderbn encounter ozmphfyiz60/12/2024 10:00 AM EST Procedure Visit [facility] EXT DEP Kanu Torres, DPM [address] [place] [address] [facility] EXT DEPStart: 04-23-2023 DebridementOR Wound Debridement/I&D/Hydradenitis (Bilateral)[facility] CenterStart: 55-16-5711JutaojhwdSamaritan Hospitaltart: 46-71-0467Kmaxrlvsy for malignant neoplasm of colonNOMS HealthcareStart: 71-75-4383Dtzldkowde A1c measurementDiabetes: Hemoglobin H6YBVGVOzarks Medical Center Start: 02-19-2023 End: 72-68-1354AuvzjjeppCleveland Clinic Foundation CenterStart: 33-10-5530QkpcikfpaCleveland Clinic Foundation CenterStart: 33-59-5178UfxytdzjrCleveland Clinic Foundation CenterStart: 24-11-0111XsrbgysnlCleveland Clinic Foundation CenterStart: 09-19-9551QaxpngdtmCleveland Clinic Foundation CenterStart: 09-07-8715MypffwtjhCleveland Clinic Foundation CenterStart: 41-54-1063Dwmsr chemistrySamaritan Hospitaltart: 02-02-2023 End: 35-52-4602UajkglqowCleveland Clinic Foundation CenterStart: 95-11-3411Jzhqeha microbial cultureAerobic CultureSamaritan Hospitaltart: 70-75-8290Ihwamzknp microbial cultureAnaerodominion hospital CultureSamaritan Hospitaltart: 42-74-5712Rwxrs chemistrySamaritan Hospitaltart: 02-01-2023 End: 48-32-2993LmbquhthjCleveland Clinic Foundation CenterStart: 89-41-2457Fonsw chemistry [facility] CenterStart: 32-98-7521YrxvshbyrSamaritan Hospitaltart: 98-88-0426Vbtoq chemistrySamaritan Hospitaltart: 01-30-2023 End: 18-70-8008TmdudvcanCleveland Clinic Foundation CenterStart: 83-87-8890Ivkql chemistry [facility] CenterStart: 86-98-6805BrbirvjabCleveland Clinic Foundation CenterStart: 42-52-3436Foovgtdz to vascular surgeonCleveland Clinic Foundation CenterStart: 90-47-8169IEA of left foot with contrastMR foot LT wo/w con [facility] CenterStart: 18-36-0732Jpvbljnz admissionCleveland Clinic Foundation CenterStart: 36-44-8558Uzjsuazs therapy procedureSamaritan Hospitaltart: 87-63-1469Mzmekyan to infectious diseases physicianCleveland Clinic Foundation CenterStart: 70-45-4609Molvfcik to occupational therapistC[facility] Clinic Foundation CenterStart: 96-17-0498Kgtxtrcy to podiatristSamaritan Hospitaltart: 18-27-4356VvfbmbxsySamaritan Hospitaltart: 31-47-1658Nrevdtfm identified in Blood by Culture Blood CultureSamaritan Hospitaltart: 59-94-6334Thofomlg of Left Anterior Tibial Artery, Percutaneous ApproachDilation of Left Anterior Tibial Artery, Percutaneous ApproachSamaritan Hospitaltart: 01-28-2023 Extraction of Left Foot Skin, External ApproachExtraction of Left Foot Skin, External ApproachSamaritan Hospitaltart: 03-26-2061Tyffkufqy of Infusion Device into Upper Vein, Percutaneous ApproachInsertion of Infusion Device into Upper Vein, Percutaneous ApproachUniversity Hospitals Ahuja Medical Center Start: 87-43-6507Jxtul Radiography of Aorta and Bilateral Lower Extremity Arteries using Low Osmolar ContrastPlain Radiography of Aorta and Bilateral Lower Extremity Arteries using Low Osmolar ContrastSamaritan Hospitaltart: 02-57-4923Ualejgxyn for malignant neoplasm of breastMammogramOzarks Medical CenterStart: 58-30-4341Ixruk-19 Vaccine ( season)Covid-19 Vaccine ()[facility] Rehabilitationtart: 84-67-9948Lcdelk scan of lower limb veinsUS venous duplex LE [facility]art: 84-80-7368IC Lower extremity vein - [facility] Hospitaltart: 10-20-2022 End: 49-94-2210CbaqopmyhSamaritan Hospitaltart: 25-18-5276Ahentjq microbial cultureSuperficial Wound CultureUniversity Hospitals Ahuja Medical Center Start: 79-46-1991Jrbfksmdkil Wound CultureSuperficial Wound CultureSamaritan Hospitaltart: 08-24-2022 End: 57-68-7068IrqbfympzSamaritan Hospitaltart: 07-10-2022 End: 39-62-8623DvhhbkkbkSamaritan Hospitaltart: 31-73-6093Pxbtupck screeningDiabetes: Retinopathy ScreeningOzarks Medical CenterStart: 03-27-2022 End: 87-72-5031PvzrzzgcxSamaritan Hospitaltart: 21-20-9299Evqyjqlneg AssessmentDepression AssessmentC[facility] Clinic Children's Hospital for Rehabilitationtart: 51-23-2813VwrtaxhvnCleveland Clinic Foundation CenterStart: 71-03-1817SgicowmddCleveland Clinic Foundation CenterStart: 74-93-5903Nltqohtp to vascular surgeonC[facility] Clinic Foundation CenterStart: 76-29-6300Tkliilci to clinical allergistC[facility] Clinic Foundation CenterStart: 76-07-3451Tdkhvius to palliative care [facility] Start: 57-57-3733JhbhdzkzyCleveland Clinic Foundation CenterStart: 13-69-9847Xybndwju to vascular surgeonC[facility] Clinic [facility] CenterStart: 47-39-8365Syljsegt to infectious diseases [facility] CenterStart: 12-26-2021 Referral to podiatristC[facility] Clinic Foundation CenterStart: 78-11-6622Kbwmdode admissionC[facility] Clinic Foundation CenterStart: 60-16-7467DsqrwasyeC[facility] Clinic Foundation CenterStart: 87-47-5240BepzwucdgC[facility] Clinic Foundation CenterStart: 60-75-6209Ebuescbx to pain management specialistC[facility] Clinic Foundation CenterStart: 92-04-6287Ppmlmjmi of Left Foot Skin, External ApproachC[facility] Clinic Foundation CenterStart: 52-29-1496Tfbchsrn of Left Foot, Open Approach [facility] CenterStart: 13-74-0111Lorzayfg of Right Foot, Open ApproachC[facility] Clinic Foundation CenterStart: 08-40-6948Ftjzbqqs to clinical allergTrinity Health System East Campus CenterStart: 27-11-9546ZdjdmlqgrC[facility] Clinic Foundation CenterStart: 84-82-6641GU Wound Debridement/I&D/Hydradenitis (Left)OR Wound Debridement/I&D/Hydradenitis (Left)[facility] CenterStart: 99-66-6095Qzvwmbpi to vascular surgeonC[facility] Clinic [facility] CenterStart: 68-16-5374Aggawsey to infectious diseases [facility] CenterStart: 67-87-5556Ugjyafzk admissionC[facility] Clinic Foundation CenterStart: 47-69-9751FophncxmbC[facility] Clinic [facility] CenterStart: 05-48-8180YQ Wound Debridement/I&D/Hydradenitis (Left)OR Wound Debridement/I&D/Hydradenitis (Left) [facility] CenterStart: 22-06-1736EJ Wound Debridement/I&D/Hydradenitis (Left)OR Wound Debridement/I&D/Hydradenitis (Left) [facility] CenterStart: 82-49-9611Ewjlrwgw to Special Education Para Professional [facility] CenterStart: 15-33-5120ZoodvwszzC[facility] Clinic [facility] CenterStart: 56-55-0166Uxuqpkbw to vascular surgeonC[facility] Clinic [facility] CenterStart: 63-58-4508Lvxabuzp admissionC[facility] Clinic Foundation CenterStart: 11-04-2021 End: 94-11-2429Vqbsqztoiw and management of inpatientInfectionC[facility] Clinic [facility] Ctr-[facility] SurgStart: 11-02-2021 End: 24-53-4504Rucocjpyn department patient visitDeparted EmergencyC[facility] Clinic [facility] Ctr-Emergency RoomStart: 66-71-2331OxodatoczmfLlqgqhuzo Clinic Start: 45-25-2557LknabcmzmC[facility] Clinic Foundation CenterStart: 52-14-5142Ctgtvh Left Peroneal Artery to Lower Extremity Artery with Autologous Venous Tissue, Open ApproachC[facility] Clinic Foundation CenterStart: 14-43-1740Zfahiivx of Left Saphenous Vein, Open ApproachC[facility] Clinic Foundation CenterStart: 10-13-2021 Referral to clinical allergistSamaritan Hospitaltart: 10-13-2021 End: 02-26-5217Kovwsnbkya and management of inpatientChronic ulcer of left foot due to diabetes mellitusC[facility] Clinic Foundation Ctr-4 [place] SurgicalStart: 42-95-1526EaphquzjtC[facility] Clinic Foundation CenterStart: 89-76-2824SzlnmyfoiCleveland Clinic Foundation CenterStart: 21-14-3164Kimkvxufff procedureC[facility] Clinic Foundation CenterStart: 16-52-5673Scgyusrm admissionC[facility] Clinic Foundation CenterStart: 70-20-3206Mqawcdid to podiatristSamaritan Hospitaltart: 28-47-3235Ahrqfvqc to vascular surgeonC[facility] Clinic Foundation CenterStart: 08-20-5750Wnqrblixdo at Left 2nd Toe, Complete, Open ApproachC[facility] Clinic Foundation CenterStart: 40-30-4389Mamlmzqi of Left Foot Artery, Percutaneous ApproachSamaritan Hospitaltart: 98-95-9613Ezqxkvwq of Left Foot Subcutaneous Tissue and Fascia, Open ApproachUniversity Hospitals Ahuja Medical Center Start: 70-89-1317Cdowhphs of Right Foot Subcutaneous Tissue and Fascia, Open ApproachSamaritan Hospitaltart: 76-28-2981Lyhwfxiq of Toe Nail, External ApproachSamaritan Hospitaltart: 32-91-4680Zxdflyrqzhl of Left Lower Extremity Arteries using Low Osmolar ContrastSamaritan Hospitaltart: 98-69-6579Ovtcfprzq of Intraluminal Device into Left External Iliac Artery, Percutaneous ApproachUniversity Hospitals Ahuja Medical Center Start: 00-52-8315Epejvxu of Intraluminal Device from Lower Artery, Percutaneous ApproachSamaritan Hospitaltart: 26-90-9260Wsfbvwklxmq Ventilation, Less than 24 Consecutive HoursUniversity Hospitals Ahuja Medical Center Start: 35-91-6595USAEY-19 VACCINE (3 - Booster for Pfizer series)COVID-19 VACCINE (3 - Booster for Pfizer series)[facility] Rehabilitationtart: 14-28-9553DXHQQSLM VACCINE (1 of 2)SHINGRIX VACCINE (1 of 2)[facility] Rehabilitationtart: 2011 COLOGUARD (FIT-DNA)COLOGUARD (FIT-DNA)[facility] Rehabilitationtart: 2011 ColonoscopyCOLONOSCOPYC[facility] Clinic [facility] Hospital for Rehabilitationtart: 56-35-6989MMLOINQFXS CANCER SCREENINGCOLORECTAL CANCER SCREENINGC[facility] Clinic Children's Hospital for Rehabilitationtart: 51-11-9498DJ COLONOGRAPHYCT COLONOGRAPHYC[facility] Clinic Children's Hospital for Rehabilitationtart: 02-76-4788YMHLD OCCULT BLOOD FECAL OCCULT BLOODCleveland Clinic [facility]'s Hospital for Rehabilitationtart: 45-86-9594Qvaln 1996 panel - Serum or PlasmaLipid ScreeningC[facility] Clinic [facility]'s Hospital for Rehabilitationtart: 76-42-4382EWUAZ SCREENLIPID SCREEN [facility] Rehabilitationtart: 57-49-0707KQTTEROTWUGEAFVCZMEFBVGTRDJjtqnzotf Clinic Start: 63-06-6667XLB TESTINGHPV TESTINGC[facility] Clinic [facility] Hospital for Rehabilitationtart: 01-28-1996 Screening for malignant neoplasm of cervixOzarks Medical CenterStart: 08-18-1991 Hepatitis B Vaccine (3 of 3 - 19+ 3-dose series)Hepatitis B Vaccine (3 of 3 - 19+ 3-dose series)[facility] Rehabilitationtart: 03-79-8381QZB TESTINGPAP TESTING [facility] Rehabilitationtart: 65-02-0581Bkqfkvylt for malignant neoplasm of cervixPap SmearOREM COMMUNITY HOSPITAL HealthcareStart: 38-78-5549Jhhml microalbumin profileAultman Orrville Hospital Start: 30-70-8216JMOYZRLOT C SCREENINGHEPATITIS C SCREENINGAultman Orrville Hospital Start: 02-76-6092NFC SCREENINGHIV SCREENINGC[facility] Clinic [facility] Hospital [facility] Rehabilitationtart: 1978 Adult depression screening assessmentC[facility] Clinic [facility]'s Hospital for Rehabilitationtart: 12-38-8319Unfhaacrf B Vaccine (1 of 3 - 3-dose series)Hepatitis B Vaccine (1 of 3 - 3-dose series) [facility] Rehabilitation[facility]: 1966Medicare Annual Wellness (AWV)Medicare Annual Wellness (AWV)[facility] HealthcareStart: 65-41-8847Lbuakzqxb for malignant neoplasm of colonOREM COMMUNITY [facility]OSPITAL HealthcareStart: 31-48-0841Mgvddvcgv for malignant neoplasm of lung Lung Cancer Screening Shared Decision MakingOzarks Medical CenterBlood culture for bacteria, including anaerobic screenBlood CultureUniversity Hospitals Ahuja Medical CenterBlood culture for bacteria, including anaerobic screenUniversity Hospitals Ahuja Medical CenterLiver stiffness by US.transient elastographyFIBROSCAN Imaging Routine Metabolic dysfunction-associated steatotic liver disease (MASLD) Ordered:12/01/2024[facility] Work Phone: Comment on above:Ordered: 12/01/2024Patient Education [facility] Work Phone: Patient referralCleveland Clinic Foundation Ctr Work Phone: US.doppler Lower extremity arteryVascular US lower extremity arterial Doppler complete Vascular Ultrasound Routine PVD (peripheral vascular disease) Ordered: 09/13/2024[facility] Work Phone: Comment on above:Ordered: 09/13/2024[facility] [place] Immunizations Immunization DateImmunizationNotesCare PeyswuxoHthljrkc98-76-2845Thlhpfsuc, Madin [place] Canine Kidney, subunit, trivalent, injectable, contains preservative [facility] CenterOMS Vjrfplfzzu18-06-5594atmriceid virus vaccine, unspecified formulationNicjesús Hays DPM Work Phone: [facility] CenterWrbfdrkzyh28-66-3119Sjiieqvn trivalent influenza vaccine, adjuvanted, preservative freeGina Risaliti ROAD ROLLER OPERATOR [employer] Work Phone: NOSaint Louis University HospitalRmoqenlznf26-54-5468Atiiwjqkg, injectable, Madin [place] Canine Kidney, preservative free, quadrivalentJessica Didion ROAD ROLLER OPERATOR [employer] Work Phone: [facility] CenterQybxdxyxhl97-25-4424exbkzzcbv virus vaccine, unspecified formulationTracey West RT. [facility] HospitalQzmeeslhae38-57-0344Fdroexw Bivalent Booster VaccinationJessica Didion ROAD ROLLER OPERATOR [employer] Work Phone: [facility] CenterRduhpmufao81-24-8271WKBD-GMT-7 (COVID-19) vaccine, mRNA, spike protein, LNP, bivalent, preservative free, 30 mcg/0.3 mL dose, joana-sucrose formulationJessica Didion ROAD ROLLER OPERATOR [employer] Work Phone: [facility] CenterSszvktukmg12-55-4840Odycolxcp, injectable, Madin Luz Canine Kidney, preservative free, quadrivalentJessica Didion ROAD ROLLER OPERATOR [employer] Work Phone: [facility] CenterEcxqwihfkr86-24-6589OFCRT-20 [place] (Pfizer) Tri-Sucrose 12+MD aJrvis Thrasher Work Phone: [facility]04-23-2022COVID-19 [place] Heart (Pfizer)MD Jarvis Thrasher Work Phone: [facility]10-26-2021Influenza, injectable, Madin [place] Canine Kidney, preservative free, quadrivalentJessica Didion ROAD ROLLER OPERATOR [employer] Work Phone: [facility] CenterRakcqjuirp10-20-9746FXMWE-53 [place] Heart (Pfizer)MD Jarvis Thrasher Work Phone: [facility]03-30-2021COVID-19 [place] Heart (Pfizer)MD Jarvis Thrasher Work Phone: [facility]03-29-2021Pfizer Purple Cap SARS-CoV-[address] ROLLER OPERATOR [employer] Work Phone: [facility] CenterXqnbelqosd68-89-9680FFOXZ-26 [place] Heart (Pfizer)MD Jarvis Thrasher Work Phone: [facility]03-08-2021Pfizer Purple Cap SARS-CoV-[address] ROLLER OPERATOR [employer] Work Phone: [facility] CenterVlanepnmce72-98-7892Oplgsyxgm, injectable, Madin [place] Canine Kidney, preservative free, quadrivalentJessica Didion ROAD ROLLER OPERATOR [employer] Work Phone: [facility] CenterJimbsfcnmw67-55-0954Awsykolba, injectable, Madin Luz Canine Kidney, preservative free, quadrivalentMD [facility] Work Phone: [facility]12-12-2018Influenza, injectable, Madin [place] Canine Kidney, quadrivalent with preservativeMattanamaria Duronenberg Other [place] [employer] Other 10522625-83-0130rjejymcax, injectable, quadrivalent, preservative freeMD [facility] Work Phone: [facility]01-08-1992hepatitis B vaccine, adult dosageJessica Didion ROAD ROLLER OPERATOR [employer] Work Phone: [facility] CenterCvyaiwqtkg10-86-9911zsldgcgpo B vaccine, adult dosageJessica Didion ROAD ROLLER OPERATOR [employer] Work Phone: [facility] Payers DatePayer CategoryPayerPolicy [id number] 2024Medicare (Managed Care)[id number] 2024Medicare [id number] 2023Medicare [id number] 2022MedicareDEVOTED MEDICARE DEVOTED HEALTH [id number] 2021-Present [phone] [address] [place] [address] [id number] 2019Medicaid [id number] 2.16.840.1.849000.3.57[id number] 2.16.840.1.618300.3.579.[id number] 2.16.840.1.283717.3.579.2.079573-64-9225Ikmmhns93048925 2.16.840.1.419353.3.579.2.020804-84-8440Wxemrkh26891234 2.16.840.1.526921.3.579.[id number] 2.16.840.1.141529.3.579.2.858060-56-7553Fxgwplo24959640 2.16.840.1.088304.3.579.2.681688-75-8093Xxiyjfs30903863 2.16.840.1.151066.3.579.2.493931-20-2695Prcxsrm11189871 2.16.840.1.542074.3.579.2.876800-86-8333Luxkoby71996688 2.16.840.1.707096.3.579.2.232783-91-2733Glglxoh6801948 2.16.840.1.486692.3.579.2.466770-02-5984Wgbsdib9707086 2.16.840.1.806707.3.579.2.050382-86-5234Hrotuek9782275 2.16.840.1.042743.3.579.2.848630-56-6401Nlmerno6625132 2.16.840.1.735859.3.579.2.292900-12-8987Deiyxss3467655 2.16.840.1.381437.3.579.2.536936-05-8939Ilxidnr0098843 2.16.840.1.570123.3.579.2.243599-16-1412Qpuzezv9139798 2.16.840.1.870538.3.579.2.957838-10-6851Uykkpfa4673067 2.16.840.1.431418.3.579.2.403969-75-5837Tfmbnzi9816054 2.16.840.1.477209.3.579.2.033390-68-3049Rmjwlfe8294455 2.16.840.1.673304.3.579.2.950515-06-9514Yajhbuu1734989 2..840.1.684479.3.579.2.282409-51-1079Ddsyqpu7346795 2.16.840.1.345078.3.579.2.389962-23-9508Zmjztpl04974315 2.16.840.1.297313.3.579.2.727 [id number] Health [id number] Health [id number] 6798l3j7-7zf0-39mi-790m-8hh35q8bf862Jyhmfil Health Vgbknjkss233979922-56 2.840.1.889468.01Vzgv-nyj27ig9496-7361uci29da4308-1670-26gh-eqt4-4gu666340790PmnzxkbTPPTZ1 04.30.840.1.821696.55PbjitkcC2493916920 5363lk42-922y-64b2-jo8e-79623137lmy3 [id number] [id number]-458s-1077-956v-ub92iui60638 Social History DateTypeDetailFacilityStart: 12-29-2024 End: 17-81-4668Iwzzfcq smoking status NHISTobacco smoking consumption unknown [facility]: 55-79-7583Ryp Assigned At BirthNot on [facility]: 08-11-2021 End: 72-77-6424Lmkrnwbn to SARS-CoV-2 (event)Not [facility] Centertart: 12-04-2022 End: 80-16-0962Uyr Assigned At [facility] [employer] Other Start: 11-06-2021 End: 54-90-8511Xzkdqrz smoking status NHISEx-smoker (finding)[facility]: 25-40-2854Wnb [facility]FeMc[facility] Hospitaltart: 54-97-2934Ekbsvrh smoking status NHISNever smoked tobacco (finding)[facility]tart: 03-15-1985 End: 84-79-6564Pikxufx of tobacco useCurrent smokerAultman Orrville Hospital Work Phone: Start: 03-15-1985 End: 43-74-5118Xznuwya of tobacco useCigarette SmokerAultman Orrville Hospital Work Phone: Start: 09-30-2022 End: 85-68-5444Pveyrqk use and exposureSmokeless tobacco non-userAultman Orrville Hospital Work Phone: Start: 12-04-2022 End: 42-18-6502Psjjgky of Social functionCleveland Clinic Children's Hospital for Rehabilitationtart: 05-27-2022 National Score (1-100), lower number is lower fcdr95YQPV HealthcareStart: 04-16-2023 End: 57-44-6640Cxerfwr intakeLifetime non-drinker (finding)[facility] HealthcareStart: 35-58-1555Thufqss Commentcaffeine: 2-3 cups per day coffeeNOTN HealthcareStart: 27-32-7507Ccgtrk identityIdentifies as female gender (finding)[facility] Healthcare Start: 04-21-2024 End: 17-67-8121UenHiswkz (finding)[facility]: 10-20-2024 End: 37-53-6255Reabjln smoking status NHISSmokes tobacco daily (finding) [facility]: 10-21-2024 End: 89-99-8721WPNC Follow upSDOH Follow upL[facility] Work Phone: [facility] Medical Equipment Procedure CodeEquipment CodeEquipment Original TextEquipment IdentifierDates Wound debridementCollagen wound matrix dressing ()[id number] FDAStart: 17-97-5426Rtqyr debridementCollagen wound matrix dressing()[id number] FDAStart: 14-26-6031Gjtde debridementDRESSING PURAPLY AM XT 4.9X4.9FDAStart: 38-07-0913Hdnee debridementDRESSING PURAPLY AM XT 4.9X4.9FDAStart: 10-09-2024 Wound debridementDRESSING PURAPLY AM XT 4.9X4.9FDAStart: 77-79-5555Ywnzi debridementDRESSING PURAPLY AM XT 4.9X4.9FDAStart: 53-50-9953Ccpsz debridement DRESSING PURAPLY AM XT 4.9X4.9FDAStart: 33-71-867548536517Jlihq: 08-18-2017 End: 12-01-2025([id number] FDAStart: 04-09-2021 ()[id number] FDAStart: 04-09-2021 Goals DatePatient GoalDesired Activity/State Functional Status QrzlHyfnjmcgwdOuspdfFaywcywi82-27-1825Ayxzesuekc statusPatient at Baseline [facility] Work Phone: [phone] statusPatient at Baseline [facility] Work Phone: [phone] statusPatient at Baseline [facility] Work Phone: [phone] statusPatient at Baseline [facility] Work Phone: [phone]pg statusPatient at Baseline [facility] Work Phone: [phone] statusPatient at Baseline [facility] Work Phone: [phone]va statusPatient at Baseline [facility] Work Phone: [phone] statusPatient at Baseline [facility] Work Phone: [phone] statusPatient is Progressing Toward BaselineCleveland Clinic Foundation Ctr Work Phone: [phone] statusPatient at Baseline [facility] Work Phone: [phone] statusPatient at Baseline [facility] Work Phone: Mental Status LqnvMogxkwdapoOjavdoCpzjajal25-61-8571Bsprmrlhb functionCognitive Status Patient at BaselineLima City Hospital Work Phone: [phone] functionCognitive Status Patient at BaselineCleveland Clinic [facility]tr Work Phone: [phone] functionPatient at Baseline [facility] Work Phone: [phone] functionPatient at Baseline [facility] Work Phone: [phone] functionPatient at Baseline [facility] Work Phone: [phone] functionPatient at Baseline [facility] Work Phone: [phone] functionPatient at Baseline [facility] Work Phone: [phone] functionPatient at Baseline [facility] Work Phone: [phone] functionPatient at Baseline [facility] Work Phone: [phone] functionPatient at Baseline [facility] Work Phone: [phone] functionPatient at [facility] Work Phone: Clinical Notes 2019 to 01-02-2025 Note Date & [id number] History of Present illness Narrative* Venita Gramajo LPN - 01/02/2025 11:01 AM EDT Images from the original note were not included. Flowsheet Row Patient Outreach from 01/02/[address] [facility] with Venita Gramajo LPN Hospital Information ED, Hospital or Mcfp Facility Discharge? Hospital Patient has been contacted within two business days of discharge Yes Diagnosis Cellulitis, septic encephalopathy, HTN, diabetic ulcer of left foot, DM with hyperglycemia, chronic low back pain, polycythemia neutrophilice Discharge Date 12/31/24 Discharged To: Home Setting Discharge [facility] Engagement Call Start Time 1100 Admission [...] upcoming specialty appointments? Yes [Wound Care at [facility] 02/03] Nursing Interventions Advised patient to keep [...] pt. States she is doing good. Dr Hays said that her wound looks good and doesn't believe that is the source of infection. She is on ATB for 14 days. Medications reconciled. Requesting refill on oxycodone and uses [facility] in [place]. Said pharmacy will hold until due date of 01/11. She starts wound care tomorrow at [facility]. Has appt with office on 01/17. Declined 30 day monitor atthis time. documented in this encounterOzarks Medical [id number] [place] [address] Hospitalist H&P Signed Patient: Ema Neff MR#: [id number] : 1965 Acct:[id number] Age/Sex: 59 / F Adm Date: 5 Loc: Room: [address] [place] [address] Type: ADM IN Attending Dr: Rahel Ro MD Copies to: MD Jarvis Giang MD~ HPI DATE OF EXAMINATION: 12/29/24 CHIEF COMPLAINT: Altered mentation and change in behavior HISTORY OF PRESENT ILLNESS: 59-year-old female with history of diabetes and hypertension and recent admission in October for left foot infection and possible osteomyelitis is brought in today new onset forgetfulness over the past couple days in addition to drowsiness and overall not feeling well. No changes in medications, sheis onhigh-dose gabapentin and scheduled narcotics. No fever or chills. No vomiting, abdominal pain,diarrhea or dysuria. The only abnormal finding on history and exam is that the lateral side of left foot and lower leg are more painful and red but no obvious discharge or open wounds. Also, she gets injections into the right eye, unclear details, but she admits to having the expected changes following injection including swelling andredness around her eye but no changes in vision or extraordinary pain. No eye discharge or pain with ocular movements. In ED patient was alert oriented x 3 although initially she was not cooperative to questions when seen by ED staff. Mildly febrile 99.2, and hypertensive Leukocytosis which is chronic neutrophilic and monocytic Patient received 2 to 3 L of IV fluids and a dose of vancomycin empirically for sepsis after cultures were sent Review of Systems Constitutional Constitutional: Reports fatigue, Denies fever(s), Denies frequent falls and Denies headache(s) Eyes Eyes: Reports blurry vision (Right eye), Denies diplopia and Reports irritation (Right eye) ENT Ears, Nose, Mouth, and Throat: Denies dysphagia and Denies epistaxis Cardiovascular Cardiovascular: Denies chest pain and Denies dyspnea on exertion Respiratory Respiratory: Denies chest congestion Gastrointestinal Gastrointestinal: Denies change in stool character and Denies cramping Genitourinary Genitourinary: Denies dysuria and Denies urinary urgency Musculoskeletal Musculoskeletal: Reports back pain (Chronic) Integumentary/Breasts Skin/Breast: Denies dry skin and Reports erythema (Left lower leg and lateral left foot) Endocrine Endocrine: Denies cold intolerance Hematologic/Lymphatic Hematologic/Lymphatic: Denies easy bruising [facility] Medical History Tobacco abuse PAD (peripheral artery disease) Hypertension Wound drainage Type 2 diabetes mellitus with diabetic nephropathy Thyroid nodule Sprain of ligaments of lumbar spine, initial encounter Spondylolisthesis, lumbar region Other chronic pain Osteoarthritis of lumbar spine RICK (obstructive sleep apnea) Morbid obesity Lumbar spinal stenosis Hypercholesterolemia History of colon polyps 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 (completed feb 2023) Depression Anxiety Osteoporosis DJD (degenerative joint disease) GERD (gastroesophageal reflux disease) since being dx with thyroid problems Diabetes mellitus, type 2 Hyperthyroidism Tachycardia Bronchitis Menopause Neuropathy bilateral Gout left foot DDD (degenerative disc disease) Arthritis Cellulitis Eczema Ulcerative colitis Hyperlipidemia Sleep apnea no machine Smoker quit 03/2020 Dry gangrene PAD (peripheral artery disease) Osteomyelitis History of CVA in adulthood rt sided weakness Diabetes Hypertension Back pain Surgical History Other specified postprocedural states History of thyroidectomy S/P angioplasty with stent rt leg and left leg graft History of amputation of toe bilateral History of endometrial ablation Hx of cataract surgery bilateral History of carpal tunnel surgery of right wrist Hx of angioplasty bilateral legs x2, 2 stents on R History of surgery on wrist carpal tunnel and ulnar nerve rt arm; History of cholecystectomy History of tonsillectomy History of tubal ligation Family History Father Prostate cancer Diabetes Bladder cancer Cancer Mother H/O blood clots Pulmonary embolism Social History Smoking Status: Unknown if ever smoked Tobacco Type: cigarettes Substance Use Type: Unknown Social History Comments: mobile home, lives with SO Meds Medications and Allergies Allergies prednisone Allergy (Unknown, Verified 12/29/24 15:01) Unknown Reaction hydrocodone (From Vicodin) Allergy (Verified 12/29/24 15:01) Hallucinating metformin Adverse Reaction (Mild, Verified 12/29/24 15:01) GI upset Steroid Injection Allergy (Uncoded 02/19/23 12:07) Swelling Home Medications losartan 50 mg tablet 50 mg PO QAM htn 11/02/17 [History Confirmed 10/20/24] fluticasone propionate 50 mcg/actuation nasal spray,suspension (Flonase Allergy Relief) 1 spray intranasal QHS PRN Nasal Congestion 03/06/18 [History Confirmed 10/20/24] amitriptyline 25 mg tablet 50 mg PO QHS PRN Insomnia 01/21/21 [History Confirmed 10/20/24] gabapentin 800 mg tablet 800 mg PO QID neuropathy 01/21/21 [History Confirmed 10/20/24] clopidogrel 75 mg tablet 75 mg PO QAM PVD 05/02/21 [History Confirmed 10/20/24] metoprolol succinate 25 mg tablet,extended release 24 hr 50 mg PO QAM tachycardia/overactive thyroid 05/02/21 [History Confirmed 10/20/24] glimepiride 4 mg tablet 4 mg PO QAM 11/04/21 [History Confirmed 10/20/24] duloxetine 30 mg capsule,delayed release 30 mg PO QAM 08/20/22 [History Confirmed 10/20/24] omeprazole 40 mg capsule,delayed release 40 mg PO QAM 08/20/22 [History Confirmed 10/20/24] oxycodone-acetaminophen 5 mg-325 mg tablet 1 tab PO Q4-6H PRN Pain 08/20/22 [History Confirmed 10/20/24] levothyroxine 150 mcg tablet 150 mcg PO DAILY 03/06/24 [History Confirmed 10/20/24] atorvastatin 80 mg tablet 80 mg PO DAILY 05/25/24 [History Confirmed 10/20/24] empagliflozin 25 mg tablet (Jardiance) 25 mg PO DAILY 10/21/24 [History Confirmed 10/21/24] amoxicillin 875 mg-potassium clavulanate 125 mg tablet 1 tab PO BID #20 tabs 10/22/24 [Rx] aspirin 81 mg tablet 81 mg PO DAILY #30 tabs 10/22/24 [Rx] Exam Physical Exam Vital Signs: Temp Pulse Resp BP Pulse Ox O2 Del Method 99.2 F H 104 H 18 164/104 H 99 Room Air 12/29/24 13:57 12/29/24 21:25 12/29/24 21:25 12/29/24 21:25 12/29/24 21:25 12/29/24 21:25 Const General: cooperative and no acute distress HEENT Head: normocephalic and atraumatic Eyes Sclera: scleral abnormality right scleral injection Pupils: pupils not ERRL and pupil size (Larger right pupil) on the right EOM: EOM intact bilaterally Resp Effort & Inspection: normal respiratory effort and uses accessory muscles Cardio Rate: regular rate Rhythm: regular rhythm GI Inspection: obesity Palpation: soft and nontender Skin General: erythema (Redness and tenderness left lateral foot and lower leg) Wounds: wounds noted (Left foot, covered with eschar) Neuro General: patient alert, patient oriented x3 and moves all extremities Results - Hospitalist H&P Lab Results Labs: Laboratory Last Values Corrected WBC 20.4 X10E3/uL (3.8-11.6) H 12/29/24 14:14 Uncorrected WBC Count 20.4 x10E3/uL (3.8-11.6) H 12/29/24 14:14 RBC 6.02 x10E6/uL (3.60-5.00) H 12/29/24 14:14 Hgb 16.6 g/dL (11.8-15.4) H 12/29/24 14:14 Hct 51.2 % (34.0-46.4) H 12/29/24 14:14 MCV 85.0 fl (80-100) 12/29/24 14:14 MCH 27.5 pg (24.7-34.3) 12/29/24 14:14 MCHC 32.4 g/dL (32.0-35.0) 12/29/24 14:14 RDW 17.9 % (11.9-15.3) H 12/29/24 14:14 Plt Count 265 x10E3/uL (150-450) 12/29/24 14:14 MPV 8.2 fl (6.3-10.7) 12/29/24 14:14 Neut % (Auto) 85.9 % (.) 12/29/24 14:14 Lymph % (Auto) 9.9 % (.) 12/29/24 14:14 [place] % (Auto) 3.1 % (.) 12/29/24 14:14 Eos % (Auto) 0.1 % (.) 12/29/24 14:14 Baso % (Auto) 1.0 % (.) 12/29/24 14:14 Nucleat RBC Rel Count 0.1 /100 WBC (0-0.5) 12/29/24 14:14 Neut # (Auto) 17.6 x10E3/uL (1.8-7.7) H 12/29/24 14:14 Lymph # (Auto) 2.0 x10E3/uL (1.00-4.8) 12/29/24 14:14 [place] # (Auto) 0.6 x10E3/uL (0.0-0.8) 12/29/24 14:14 Eos # (Auto) 0.0 x10E3/uL (0.0-0.45) 12/29/24 14:14 Baso # (Auto) 0.2 x10E3/uL (0.0-0.2) 12/29/24 14:14 Monocyte Dist Width 20.07 % (0.00-20.00) H 12/29/24 14:14 Platelet Estimate Normal (Normal) 12/29/24 14:14 Plt Morphology Comment Normal (Normal) 12/29/24 14:14 RBC Morphology N/A 12/29/24 14:14 Polychromasia Moderate 12/29/24 14:14 PHA Creatinine Clear 106.35 12/29/24 14:14 Sodium 135 mmol/L (136-145) L 12/29/24 14:14 Potassium 3.5 mmol/L (3.5-5.1) 12/29/24 14:14 Chloride 97 mmol/L (98-107) L 12/29/24 14:14 Carbon Dioxide 27.7 mmol/L (21.0-31.0) 12/29/24 14:14 Anion Gap 13.8 mEq/L (6.0-15.0) 12/29/24 14:14 BUN 11 mg/dL (7-25) 12/29/24 14:14 Creatinine 0.73 mg/dL (0.60-1.20) 12/29/24 14:14 Est GFR (CKD-EPI) > 60.0 mL/Min 12/29/24 14:14 Glucose 135 mg/dL (70-100) H 12/29/24 14:14 Lactic Acid 0.9 mmol/L (0.5-1.9) 12/29/24 16:17 Calcium 8.9 mg/dL (8.6-10.3) 12/29/24 14:14 Magnesium 1.7 mg/dL (1.9-2.7) L 12/29/24 14:14 Total Bilirubin 0.7 mg/dl (0.3-1.0) 12/29/24 14:14 Direct Bilirubin 0.10 mg/dL (0.03-0.18) 12/29/24 14:14 Indirect Bilirubin 0.6 mg/dL 12/29/24 14:14 AST 16 U/L (13-39) 12/29/24 14:14 ALT 9 U/L (7-52) 12/29/24 14:14 Alkaline Phosphatase 91 U/L (34-104) 12/29/24 14:14 Ammonia 32 umol/L (11-35) 12/29/24 16:17 Total Protein 7.7 gm/dL (6.4-8.9) 12/29/24 14:14 Albumin 4.0 gm/dL (3.5-5.7) 12/29/24 14:14 Globulin 3.7 gm/dL 12/29/24 14:14 Albumin/Globulin Ratio 1.1 12/29/24 14:14 Lipase 30.0 U/L (11.0-82.0) 12/29/24 14:14 Urine Color Light-yellow (Yellow) 12/29/24 18:32 Urine Appearance Clear (Clear) 12/29/24 18:32 Urine pH 6.5 (5.0-9.0) 12/29/24 18:32 Ur Specific [place] 1.050 (1.001-1.030) H 12/29/24 18:32 Urine Protein 30 mg/dL (Negative) H 12/29/24 18:32 Urine Glucose (UA) >=1000 mg/dL (Normal) H 12/29/24 18:32 Urine Ketones 3+ (Negative) H 12/29/24 18:32 Urine Occult Blood Negative (Negative) 12/29/24 18:32 Urine Nitrite Negative (Negative) 12/29/24 18:32 Urine Bilirubin Negative (Negative) 12/29/24 18:32 Urine Urobilinogen Normal mg/dL (Normal) 12/29/24 18:32 Ur Leukocyte Esterase Negative (Negative) 12/29/24 18:32 Urine RBC 3-4 /HPF (0-4) 12/29/24 18:32 Urine WBC 1-2 /HPF (0-4) 12/29/24 18:32 Ur Squamous Epith Cells 1-2 /HPF (0-2) 12/29/24 18:32 Urine Bacteria None seen /HPF (None Seen) 12/29/24 18:32 Hyaline Casts None /LPF (0-8) 12/29/24 18:32 Urine Mucus Rare /LPF 12/29/24 18:32 Assessment & Plan Assessment/Plan (1) Cellulitis: Plan: Left lateral foot and left lower leg. Probably related to a chronic left foot wound. Needs evaluation for osteomyelitis (2) Septic encephalopathy: Plan: Change in mental status and behavior can be from infection/cellulitis (developing sepsis) along with medication-induced (on high-dose gabapentin and narcotics). qSOFA 03/17 (3) Hypertension: (4) Diabetic ulcer of left foot: (5) Diabetes mellitus with hyperglycemia: Plan: HbA1c 10.6 from October (6) Cellulitis: (7) Chronic low back pain: (8) Polycythemia: Plan: Chronic. She had JAK2 mutation done and BCR-ABL translocation all negative (9) Neutrophilia: Plan Admission to inpatient status Fluid resuscitation was done in the ED. Blood cultures urine cultures. IV vancomycin empirical for skin/infection. No indication for gram- negative/anaerobic coverage at the moment CT of the left foot and leg to eval for osteomyelitis and/or abscess. If no purulence can switch toantistaphylococcal/strep beta-lactam. Lower gabapentin dose while in hospital. She will continue narcotics for pain Insulin for diabetes, long-acting and Premeal NovoLog losartan for hypertension Continue Synthroid for hypothyroidism Continue aspirin, Plavix and statin for CVA prevention Lovenox for DVT prophylaxis PPI for stress ulcer prophylaxis No need for maintenance fluids Full code IP vs OBS Justification Based on differential dx, clinical care plan, and risk of adverse events, if untreated, in my clinical judgement this patient requires an acute care setting as: INPATIENT because of an expectation ofan over 2 midnight stay. Estimated length of stay (# of days): 3 Documented By: Rahel Ro MD 12/29/24 213 9 Signed By: 12/29/24 2211 [facility]10-17-2025 Radiology Diagnostic study note [facility] [place] [address] [place] [address] CT Scan Report Signed Patient: Ema Neff MR#: [id number] : 1965 Acct:[id number] Age/Sex: 59 / F ADM Date: 5 Loc: ER Room: Type: [facility] ER Attending Dr: Copies to: RichieGERARDO Carrillo MD, RES~ Ordering Provider: Glenn Rock MD, RES Date of Service: 12/29/24 CT/CT abdomen pelvis w con: Left lower quadrant pain CT ABDOMEN AND PELVIS WITH INTRAVENOUS CONTRAST: CLINICAL HISTORY: Altered mental status, generalized weakness COMPARISON: 10/20/2024 TECHNIQUE: Spiral images were obtained through the abdomen and pelvis followingthe administration of intravenous contrast. This CT exam was performed using one or more following dose reduction techniques: Automated exposure control, adjustment of the mA and/or kV according to patient size, or use of iterative reconstruction technique. FINDINGS: Lung Bases: [No focal opacity. Organs:Fatty liver. Cholecystectomy. Left adrenal nodule 1.4 cm in size. Focal area of scarring left lower pole kidney. Otherwise Spleen, adrenals[and pancreas unremarkable. GI: Mild retained stool the colon. No bowel obstruction. Colonic diverticulosis. Appendix is not visualized. No pericecal inflammatory changes.[ Pelvis:[Uterus and adnexal regions unremarkable bladder is otherwise unremarkable.] Peritoneum/Retroperitoneum:No free air or free fluid. Moderate plaque involvingthe nonaneurysmal aorta.[ Abd wall/Bones: Posterior element degenerative changes notably lumbosacral junction L4-S1. Anterolisthesis L4-5 identified. Endplate sclerosis and disc space narrowing greatest L2-L3. There is a fat-containing ventral abdominal wall hernia Neck measuring 1.[address]/CT abdomen pelvis w con IMPRESSION: Negative acute inflammatory process or bowel obstruction. Fatty infiltration liver. Impression dictated by: Chetan Michelle M.D. 12/29/2024 3:43 PM Dictation Location: [place] [address] Transcribed By: [facility] 12/29/24 1543 Dictated By: Chetan Michelle MD 12/29/24 1537 Signed By: 12/29/24 1541 [facility] Work Phone: 1(580) 725-919410-17-2025 [facility] [place] [address] [place] [address] CT Scan Report Signed Patient: Ema Neff MR#: [id number] : 1965 Acct:[id number] Age/Sex: 59 / F ADM Date: Loc: ER Room: Type: [facility] ER Attending Dr: Copies to: GERARDO Beck MD, RES~ Ordering Provider: Glenn Rock MD, RES Date of Service: 12/29/24 CT/CT head/brain wo con: R side eye nonreactive CT BRAIN WITHOUT CONTRAST: CLINICAL HISTORY: Altered mental status COMPARISON: 10/20/2024 TECHNIQUE: Contiguous axial unenhanced images were obtained through the brain. This CT exam was performed using one or more following dose reduction techniques: Automated exposure control, adjustmentof the mA and/or kV accordingto patient size, or use of iterative reconstruction technique. FINDINGS: There is no evidence of midline shift, intra or extra-axial fluid collection, hemorrhage or CT evidence of acute large vascular distribution stroke. Redemonstration of of remote right frontal, right parasagittal parietaland left posterior basal ganglia strokes. Intracranial vascular calcifications. Visualized intraorbital contents appear unremarkable. Visualized paranasal sinuses are clear. The surrounding soft tissues are normal. IMPRESSION NO ACUTE INTRACRANIAL ABNORMALITY. SCATTERED AREAS OF REMOTE STROKE APPEARING SIMILAR TO PRIOR EXAM. Impression dictated by: Chetan Michelle M.D. 12/29/2024 3:32 PM Dictation Location: [place] [address] Transcribed By: [facility] 12/29/24 153 Dictated By: Chetan Michelle MD 12/29/241527 Signed By: 12/29/24 [facility] Work Phone: [phone] 799-581410-17-2025 History and physical note Author Rahel Ro [facility] Center[facility] Date/TimeOctober 2024 10:11pm [place] [address] Hospitalist H&P Signed Patient: Ema Neff MR#: [id number] : 1965 Acct:[id number] Age/Sex: 59 / F Adm Date: Loc: Room: [address] [place] [address] Type: ADM IN Attending Dr: Rahel Ro MD Copies to: MD Jarvis Giang MD~ HPI DATE OF EXAMINATION: 12/29/24 CHIEF COMPLAINT: Altered mentation and change in behavior HISTORY OF PRESENT ILLNESS: 59-year-old female with history of diabetes and hypertension and recent admission in October for left foot infection and possible osteomyelitis is brought in today new onset forgetfulness over the past couple days in addition to drowsiness and overall not feeling well. No changes in medications, sheis onhigh-dose gabapentin and scheduled narcotics. No fever or chills. No vomiting, abdominal pain,diarrhea or dysuria. The only abnormal finding on history and exam is that the lateral side of left foot and lower leg are more painful and red but no obvious discharge or open wounds. Also, she gets injections into the right eye, unclear details, but she admits to having the expected changes following injection including swelling andredness around her eye but no changes in vision or extraordinary pain. No eye discharge or pain with ocular movements. In ED patient was alert oriented x 3 although initially she was not cooperative to questions when seen by ED staff. Mildly febrile 99.2, and hypertensive Leukocytosis which is chronic neutrophilic and monocytic Patient received 2 to 3 L of IV fluids and a dose of vancomycin empirically for sepsis after cultures were sent Review of Systems Constitutional Constitutional: Reports fatigue, Denies fever(s), Denies frequent falls and Denies headache(s) Eyes Eyes: Reports blurry vision (Right eye), Denies diplopia and Reports irritation (Right eye) ENT Ears, Nose, Mouth, and Throat: Denies dysphagia and Denies epistaxis Cardiovascular Cardiovascular: Denies chest pain and Denies dyspnea on exertion Respiratory Respiratory: Denies chest congestion Gastrointestinal Gastrointestinal: Denies change in stool character and Denies cramping Genitourinary Genitourinary: Denies dysuria and Denies urinary urgency Musculoskeletal Musculoskeletal: Reports back pain (Chronic) Integumentary/Breasts Skin/Breast: Denies dry skin and Reports erythema (Left lower leg and lateral left foot) Endocrine Endocrine: Denies cold intolerance Hematologic/Lymphatic Hematologic/Lymphatic: Denies easy bruising PMFSH Medical History Tobacco abuse PAD (peripheral artery disease) Hypertension Wound drainage Type 2 diabetes mellitus with diabetic nephropathy Thyroid nodule Sprain of ligaments of lumbar spine, initial encounter Spondylolisthesis, lumbar region Other chronic pain Osteoarthritis of lumbar spine RICK (obstructive sleep apnea) Morbid obesity Lumbar spinal stenosis Hypercholesterolemia History of colon polyps 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 (completed feb 2023) Depression Anxiety Osteoporosis DJD (degenerative joint disease) GERD (gastroesophageal reflux disease) since being dx with thyroid problems Diabetes mellitus, type 2 Hyperthyroidism Tachycardia Bronchitis Menopause Neuropathy bilateral Gout left foot DDD (degenerative disc disease) Arthritis Cellulitis Eczema Ulcerative colitis Hyperlipidemia Sleep apnea no machine Smoker quit 03/2020 Dry gangrene PAD (peripheral artery disease) Osteomyelitis History of CVA in adulthood rt sided weakness Diabetes Hypertension Back pain Surgical History Other specified postprocedural states History of thyroidectomy S/P angioplasty with stent rt leg and left leg graft History of amputation of toe bilateral History of endometrial ablation Hx of cataract surgery bilateral History of carpal tunnel surgery of right wrist Hx of angioplasty bilateral legs x2, 2 stents on R History of surgery on wrist carpal tunnel and ulnar nerve rt arm; History of cholecystectomy History of tonsillectomy History of tubal ligation Family History Father Prostate cancer Diabetes Bladder cancer Cancer Mother H/O blood clots Pulmonary embolism Social History Smoking Status: Unknown if ever smoked Tobacco Type: cigarettes Substance Use Type: Unknown Social History Comments: mobile home, lives with SO Meds Medications and Allergies Allergies prednisone Allergy (Unknown, Verified 12/29/24 15:01) Unknown Reaction hydrocodone (From Vicodin) Allergy (Verified 12/29/24 15:01) Hallucinating metformin Adverse Reaction (Mild, Verified 12/29/24 15:01) GI upset Steroid Injection Allergy (Uncoded 02/19/23 12:07) Swelling Home Medications losartan 50 mg tablet 50 mg PO QAM htn 11/02/17 [History Confirmed 10/20/24] fluticasone propionate 50 mcg/actuation nasal spray,suspension (Flonase Allergy Relief) 1 spray intranasal QHS PRN Nasal Congestion 03/06/18 [History Confirmed 10/20/24] amitriptyline 25 mg tablet 50 mg PO QHS PRN Insomnia 01/21/21 [History Confirmed 10/20/24] gabapentin 800 mg tablet 800 mg PO QID neuropathy 01/21/21 [History Confirmed 10/20/24] clopidogrel 75 mg tablet 75 mg PO QAM PVD 05/02/21 [History Confirmed 10/20/24] metoprolol succinate 25 mg tablet,extended release 24 hr 50 mg PO QAM tachycardia/overactive thyroid 05/02/21 [History Confirmed 10/20/24] glimepiride 4 mg tablet 4 mg PO QAM 11/04/21 [History Confirmed 10/20/24] duloxetine 30 mg capsule,delayed release 30 mg PO QAM 08/20/22 [History Confirmed 10/20/24] omeprazole 40 mg capsule,delayed release 40 mg PO QAM 08/20/22 [History Confirmed 10/20/24] oxycodone-acetaminophen 5 mg-325 mg tablet 1 tab PO Q4-6H PRN Pain 08/20/22 [History Confirmed 10/20/24] levothyroxine 150 mcg tablet 150 mcg PO DAILY 03/06/24 [History Confirmed 10/20/24] atorvastatin 80 mg tablet 80 mg PO DAILY 05/25/24 [History Confirmed 10/20/24] empagliflozin 25 mg tablet (Jardiance) 25 mg PO DAILY 10/21/24 [History Confirmed 10/21/24] amoxicillin 875 mg-potassium clavulanate 125 mg tablet 1 tab PO BID #20 tabs 10/22/24 [Rx] aspirin 81 mg tablet 81 mg PO DAILY #30 tabs 10/22/24 [Rx] Exam Physical Exam Vital Signs: Temp Pulse Resp BP Pulse Ox O2 Del Method 99.2 F H 104 H 18 164/104 H 99 Room Air 12/29/24 13:57 12/29/24 21:25 12/29/24 21:25 12/29/24 21:25 12/29/24 21:25 12/29/24 21:25 Const General: cooperative and no acute distress HEENT Head: normocephalic and atraumatic Eyes Sclera: scleral abnormality right scleral injection Pupils: pupils not ERRL and pupil size (Larger right pupil) on the right EOM: EOM intact bilaterally Resp Effort & Inspection: normal respiratory effort and uses accessory muscles Cardio Rate: regular rate Rhythm: regular rhythm GI Inspection: obesity Palpation: soft and nontender Skin General: erythema (Redness and tenderness left lateral foot and lower leg) Wounds: wounds noted (Left foot, covered with eschar) Neuro General: patient alert, patient oriented x3 and moves all extremities Results - Hospitalist H&P Lab Results Labs: Laboratory Last Values Corrected WBC 20.4 X10E3/uL (3.8-11.6) H 12/29/24 14:14 Uncorrected WBC Count 20.4 x10E3/uL (3.8-11.6) H 12/29/24 14:14 RBC 6.02 x10E6/uL (3.60-5.00) H 12/29/24 14:14 Hgb 16.6 g/dL (11.8-15.4) H 12/29/24 14:14 Hct 51.2 % (34.0-46.4) H 12/29/24 14:14 MCV 85.0 fl (80-100) 12/29/24 14:14 MCH 27.5 pg (24.7-34.3) 12/29/24 14:14 MCHC 32.4 g/dL (32.0-35.0) 12/29/24 14:14 RDW 17.9 % (11.9-15.3) H 12/29/24 14:14 Plt Count 265 x10E3/uL (150-450) 12/29/24 14:14 MPV 8.2 fl (6.3-10.7) 12/29/24 14:14 Neut % (Auto) 85.9 % (.) 12/29/24 14:14 Lymph % (Auto) 9.9 % (.) 12/29/24 14:14 [place] % (Auto) 3.1 % (.) 12/29/24 14:14 Eos % (Auto) 0.1 % (.) 12/29/24 14:14 Baso % (Auto) 1.0 % (.) 12/29/24 14:14 Nucleat RBC Rel Count 0.1 /100 WBC (0-0.5) 12/29/24 14:14 Neut # (Auto) 17.6 x10E3/uL (1.8-7.7) H 12/29/24 14:14 Lymph # (Auto) 2.0 x10E3/uL (1.00-4.8) 12/29/24 14:14 [place] # (Auto) 0.6 x10E3/uL (0.0-0.8) 12/29/24 14:14 Eos # (Auto) 0.0 x10E3/uL (0.0-0.45) 12/29/24 14:14 Baso # (Auto) 0.2 x10E3/uL (0.0-0.2) 12/29/24 14:14 Monocyte Dist Width 20.07 % (0.00-20.00) H 12/29/24 14:14 Platelet Estimate Normal (Normal) 12/29/24 14:14 Plt Morphology Comment Normal (Normal) 12/29/24 14:14 RBC Morphology N/A 12/29/24 14:14 Polychromasia Moderate 12/29/24 14:14 PHA Creatinine Clear 106.35 12/29/24 14:14 Sodium 135 mmol/L (136-145) L 12/29/24 14:14 Potassium 3.5 mmol/L (3.5-5.1) 12/29/24 14:14 Chloride 97 mmol/L (98-107) L 12/29/24 14:14 Carbon Dioxide 27.7 mmol/L (21.0-31.0) 12/29/24 14:14 Anion Gap 13.8 mEq/L (6.0-15.0) 12/29/24 14:14 BUN 11 mg/dL (7-25) 12/29/24 14:14 Creatinine 0.73 mg/dL (0.60-1.20) 12/29/24 14:14 Est GFR (CKD-EPI) > 60.0 mL/Min 12/29/24 14:14 Glucose 135 mg/dL (70-100) H 12/29/24 14:14 Lactic Acid 0.9 mmol/L (0.5-1.9) 12/29/24 16:17 Calcium 8.9 mg/dL (8.6-10.3) 12/29/24 14:14 Magnesium 1.7 mg/dL (1.9-2.7) L 12/29/24 14:14 Total Bilirubin 0.7 mg/dl (0.3-1.0) 12/29/24 14:14 Direct Bilirubin 0.10 mg/dL (0.03-0.18) 12/29/24 14:14 Indirect Bilirubin 0.6 mg/dL 12/29/24 14:14 AST 16 U/L (13-39) 12/29/24 14:14 ALT 9 U/L (7-52) 12/29/24 14:14 Alkaline Phosphatase 91 U/L (34-104) 12/29/24 14:14 Ammonia 32 umol/L (11-35) 12/29/24 16:17 Total Protein 7.7 gm/dL (6.4-8.9) 12/29/24 14:14 Albumin 4.0 gm/dL (3.5-5.7) 12/29/24 14:14 Globulin 3.7 gm/dL 12/29/24 14:14 Albumin/Globulin Ratio 1.1 12/29/24 14:14 Lipase 30.0 U/L (11.0-82.0) 12/29/24 14:14 Urine Color Light-yellow (Yellow) 12/29/24 18:32 Urine Appearance Clear (Clear) 12/29/24 18:32 Urine pH 6.5 (5.0-9.0) 12/29/24 18:32 Ur Specific [place] 1.050 (1.001-1.030) H 12/29/24 18: Urine Protein 30 mg/dL (Negative) H 12/29/24 18:32 Urine Glucose (UA) >=1000 mg/dL (Normal) H 12/29/24 18:32 Urine Ketones 3+ (Negative) H 12/29/24 18:32 Urine Occult Blood Negative (Negative) 12/29/24 18:32 Urine Nitrite Negative (Negative) 12/29/24 18:32 Urine Bilirubin Negative (Negative) 12/29/24 18: Urine Urobilinogen Normal mg/dL (Normal) 12/29/24 18:32 Ur Leukocyte Esterase Negative (Negative) 12/29/24 18:32 Urine RBC 3-4 /HPF (0-4) 12/29/24 18:32 Urine WBC 1-2 /HPF (0-4) 12/29/24 18:32 Ur Squamous Epith Cells 1-2 /HPF (0-2) 12/29/24 18:32 Urine Bacteria None seen /HPF (None Seen) 12/29/24 18:32 Hyaline Casts None /LPF (0-8) 12/29/24 18:32 Urine Mucus Rare /LPF 12/29/24 18:32 Assessment & Plan Assessment/Plan (1) Cellulitis: Plan: Left lateral foot and left lower leg. Probably related to a chronic left foot wound. Needs evaluation for osteomyelitis (2) Septic encephalopathy: Plan: Change in mental status and behavior can be from infection/cellulitis (developing sepsis) along with medication-induced (on high-dose gabapentin and narcotics). qSOFA 03/17 (3) Hypertension: (4) Diabetic ulcer of left foot: (5) Diabetes mellitus with hyperglycemia: Plan: HbA1c 10.6 from October (6) Cellulitis: (7) Chronic low back pain: (8) Polycythemia: Plan: Chronic. She had JAK2 mutation done and BCR-ABL translocation all negative (9) Neutrophilia: Plan Admission to inpatient status Fluid resuscitation was done in the ED. Blood cultures urine cultures. IV vancomycin empirical for skin/infection. No indication for gram- negative/anaerobic coverage at the moment CT of the left foot and leg to eval for osteomyelitis and/or abscess. If no purulence can switch toantistaphylococcal/strep beta-lactam. Lower gabapentin dose while in hospital. She will continue narcotics for pain Insulin for diabetes, long-acting and Premeal NovoLog losartan for hypertension Continue Synthroid for hypothyroidism Continue aspirin, Plavix and statin for CVA prevention Lovenox for DVT prophylaxis PPI for stress ulcer prophylaxis No need for maintenance fluids Full code IP vs OBS Justification Based on differential dx, clinical care plan, and risk of adverse events, if untreated, in my clinical judgement this patient requires an acute care setting as: INPATIENT because of an expectation ofan over 2 midnight stay. Estimated length of stay (# of days): 3 Documented By: Rahel Ro MD 12/29/24 213 9 Signed By: <Electronically signed by Rahel Ro MD> 12/29/24 [address] [facility] Work Phone: [phone] NoteHNO ID: [id number] Author: SANDRA GOETZ MD Service: ? 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 Likely 2/2 ischemia and EZ loss- nerve doesn't appear cupped - Recommend restarting anti-VEGF injections to curtain neovascular glaucoma - Avastin right eye today Neovascular glaucoma right eye - Secondary to Central retinal vein occlusion that has been LTFU - intraocular pressure elevated today- patient has been feeling it. 360 neovascularization of the iris seen - Start Cosopt and Brimonidine twice a day right eye - Glaucoma next available Hypertensive retinopathy both eyes - Control BP - F/U with primary care physician Non-insulin dependent Diabetes Mellitus without Diabetic Retinopathy, both eyes - BP/BS/Lipid control and regular monitoring with exams reviewed Pseudophakia, both eyes - Intraocular lens well-centered - Posterior capsule clear - Plan: observe Last dilated fundus exam 12/2024 Follow Up: 4 weeks for DTI Avastin right eye. Glaucoma within 1-2 weeks for intraocular pressure check and to establish care for neovascular glaucoma I have confirmed and edited as necessary the relevant HPI, ophthalmic history, ROS, and exam findings as obtained by others. I have seen and examined this patient. I have discussed the case and the management of this patient's care with the Resident, if applicable. I also have reviewed and agree with the assessment and plan as stated above and agree with all of its relevant components.[facility]09-30-2025 History of Present illness Narrative* Ray Hays, TERESA - 12/12/2024 2:00 PM EDT Patient: Ema Neff : 1965 PCP: Jarvis Thrasher MD SUBJECTIVE Pt present today for follow up of ulceration to left foot s/p application of puraply wound graft. Pt has been keeping dressing dry and intact with PWB. Patient denies N/F/V/C. She presents today for follow up of ulceration to the left foot of long standing duration. Pt present today for follow up of ulceration to left foot. Pt denies any n/f/v/c. Patient states that they have been using the following treatments for the ulcer of Ciarra. Pt is a DM2. Patient has severe PVD which could be limb threatening and vascular States not able to have any more intervention. Patient may be candidate for hyperbaric oxygen or serial wound graft treatments Allergies: Allergies Allergen Reactions Keegan Inhibitors Cough Hydrocodone Other Reaction(s): Hallucinating Metformin Hcl GI intolerance Ozempic (0.25 Or 0.5 Mg-Dose) [Semaglutide(0.25 Or 0.5mg-Dos)] GI intolerance Pioglitazone Cough Prednisone Unknown Statins Other myalgia Other Reaction(s): Other: See Comments Past Medical History: Past Medical History: Diagnosis Date Allergic rhinitis Amputation of toe of right foot 08/20/2022 Balance disorder Chronic insomnia Chronic low back pain Chronic pansinusitis Claustrophobia Elevated hemoglobin 08/20/2022 Essential hypertension Fatty liver Gastroesophageal reflux disease without esophagitis 08/20/2022 GERD (gastroesophageal reflux disease) Gout Hammer toe High arches History of colon polyps History of CVA (cerebrovascular accident) Hyperlipidemia Leukocytosis Lumbar spinal stenosis Moderate major depression (HCC) 08/20/2021 Morbid obesity (CMS-HCC) Neuromuscular disorder (HCC) RICK (obstructive sleep apnea) Osteoarthritis of lumbar spine PAOD (peripheral arterial occlusive disease) Peripheral arterial disease 10/16/2024 Peripheral neuropathy Postoperative hypothyroidism 09/17/2021 Santos splints Tobacco abuse Type 2 diabetes mellitus with diabetic nephropathy (HCC) Vitamin D deficiency 11/25/2022 Medications: Current Outpatient Medications: albuterol HFA (Ventolin HFA) 90 mcg/act inhaler, Inhale 2 puffs every 4 (four) hours if needed for wheezing or shortness of breath, Disp: 8 g, Rfl: 3 amitriptyline (Elavil) 50 MG tablet, Take 1 tablet (50 mg) by mouth at bedtime, Disp: 90 tablet, Rfl: 3 amoxicillin-clavulanate (Augmentin) 875-125 MG tablet, Take 1 tablet by mouth in the morning and 1 tablet before bedtime. (Patient not taking: Reported on 12/01/2024), Disp: , Rfl: ASPIRIN 81 MG chewable tablet, 1 (one) time each day at the same time., Disp: , Rfl: atorvastatin (Lipitor) 80 MG tablet, TAKE ONE TABLET BY MOUTH DAILY AT 5PM, Disp: 90 tablet, Rfl: 3 cholecalciferol (Vitamin D-3) 25 MCG tablet, Take 25 mcg by mouth Daily, Disp: , Rfl: clopidogrel (Plavix) 75 MG tablet, Take 1 tablet (75 mg) by mouth Daily, Disp: 90 tablet, Rfl: 3 Continuous Glucose Sensor (FreeStyle Osmin 3 Plus Sensor) [facility] [place], 1 Device Every 15 Days (Patient nottaking: Reported on 12/01/2024), Disp: 2 each, Rfl: 3 cyclobenzaprine (Flexeril) 10 MG tablet, Take 1 tablet (10 mg) by mouth as needed at bedtime for muscle spasms, Disp: 90 tablet, Rfl: 3 diphenoxylate-atropine (Lomotil) 2.5-0.025 MG tablet, Take 1 tablet by mouth 4 (four) times a day as needed for diarrhea, Disp: 30 tablet, Rfl: 0 DULoxetine (Cymbalta) [address] capsule, Take 1 capsule (30 mg) by mouth Daily, Disp: 90 capsule, Rfl: 3 empagliflozin (Jardiance) 25 MG, Take 1 tablet (25 mg) by mouth Daily, Disp: 90 tablet, Rfl: 3 fluticasone (Flonase) 50 MCG/ACT nasal spray, INSTILL 2 SPRAYS IN EACH NOSTRIL DAILY NEEDED, Disp: 16 g, Rfl: 11 gabapentin (Neurontin) 800 MG tablet, Take 1 tablet (800 mg) by mouth in the morning and 1 tablet (800 mg) at noon and 1 tablet (800 mg) in the evening and 1 tablet (800 mg) before bedtime. Take before meals., Disp: 360 tablet, Rfl: 3 glimepiride (Amaryl) 4 MG tablet, Take 1 tablet (4 mg) by mouth in the morning and 1 tablet (4 mg) in the evening. Take with meals., Disp: 180 tablet, Rfl: 3 insulin glargine (Lantus SoloStar) 100 UNIT/ML pen, Inject 20 Units under the skin at bedtime, Disp: 15 mL, Rfl: 1 insulin pen needle 31G X 8 mm [facility] [place], Use to inject 1-4 times daily as directed., Disp: 100 each, Rfl: 11 levothyroxine (Synthroid, Levoxyl) 150 MCG tablet, Take 1 tablet (150 mcg) by mouth in the morning.Take on an empty stomach.., Disp: 90 tablet, Rfl: 3 losartan (Cozaar) 50 MG tablet, Take 1 tablet (50 mg) by mouth Daily (Patient taking differently: Take 25 mg by mouth Daily), Disp: 90 tablet, Rfl: 3 meclizine (Antivert) 25 MG tablet, Take 1 tablet (25 mg) by mouth 3 (three) times a day as needed for dizziness, Disp: 90 tablet, Rfl: 11 meloxicam (Mobic) 15 MG tablet, Take 1 tablet (15 mg) by mouth Daily, Disp: 90 tablet, Rfl: 3 metoprolol succinate XL (Toprol-XL) 50 MG 24 hr tablet, Take 1 tablet (50 mg) by mouth Daily, Disp:90 tablet, Rfl: 3 nystatin (Mycostatin) ointment, Apply topically every 12 (twelve) hours, Disp: 15 g, Rfl: 2 omeprazole (PriLOSEC) [address] capsule, Take 1 capsule (40 mg) by mouth in the morning. Take beforemeals. Do not crush or chew.., Disp: 90 capsule, Rfl: 3 ondansetron (Zofran) 8 MG tablet, TAKE ONE TABLET (8MG) BY MOUTH EVERY 8 HOURS NEEDED FOR NAUSEAOR VOMITING, Disp: 20 tablet, Rfl: 1 oxyCODONE (Roxicodone) 10 MG immediate release tablet, Take 1 tablet (10 mg) by mouth every 4 (four) hours if needed for severe pain, Disp: 180 tablet, Rfl: 0 Tirzepatide (Mounjaro) 2.5 MG/0.5ML solution auto-injector, Inject 2.5 mg under the skin 1 (one) time per week, Disp: 2 mL, Rfl: 0 triamcinolone (Kenalog) 0.5 % cream, , Disp: , Rfl: zolpidem (Ambien) 10 MG tablet, Take 1 tablet (10 mg) by mouth at bedtime, Disp: 90 tablet, Rfl: 1 Social History: Social History Socioeconomic History Marital status: Spouse name: Not on file Number of children: 3 Years of education: Not on file Highest education level: Not on file Occupational History Occupation: disabled Comment: unemployed Tobacco Use Smoking status: Former Current packs/day: 0.00 Average packs/day: 1 pack/day for 36.0 years (36.0 ttl pk-yrs) Types: Cigarettes Start date: 03/15/1985 Quit date: 03/15/2021 Years since quittin.7 Smokeless tobacco: Never Vaping Use Vaping status: Never Used Substance and Sexual Activity Alcohol use: Never Comment: caffeine: 2-3 cups per day coffee Drug use: Never Sexual activity: Yes Partners: Male control/protection: Post-menopausal Other Topics Concern Not on file Social History Narrative Living with: Boyfriend Social Drivers of Health Financial Resource Strain: Not on file Food Insecurity: Not on file Transportation Needs: Not on file Physical Activity: Not on file Stress: Not on file Social Connections: Not on file Intimate Partner Violence: Not on file Housing Stability: Not on file ROS: General: denies fever, chills, fatigue, malaise Gastrointestinal: denies abdominal pain, ulcers, or changes in appetite or bowel habits Musculoskeletal: positive history of back arthritis Cardiovascular: denies CP, palpitations, irregular rhythms. Positive history of stents to the rightleg in the past 6 months. Patient currently on blood thinner OBJECTIVE LE EXAM: DERM: negative hair growth to b/l feet with thin skin noted. left dorsum of prior amputation site with ulceration to subcutaneous tissue with graft intact. Ulceration to left amputation site and ulceration measures 1 cm x 1.1 cm 0.2 cm depth with minimal fibrous slough and slight serous drainage with negative erythema or probe to bone VASC: non Palpable pedal pulsed b/l with warm to cool tibia to toes b/l NEURO: 5.07 [place] Jen monofilament test intact to digits and forefoot bilaterally 125Hz tuning fork diminished to 1st MPJ bilaterally ORTHO: +5/5 DF/PF/IN/EV right, +5/5 DF/PF/IN/EV left. 20 degrees inversion and 10 degrees eversion STJ b/l. Ankle ROM less than 10 degrees b/l. Positive pain on palpation to left foot ulcer DEREK/PVR PAST LOWER EXTREMITY SEGMENTAL ARTERIAL DOPSCAN (PVR) INDICATION: Surveillance study for left leg bypass graft and prior to limitations. PROCEDURE: Right arm blood pressure is 102 , left is 117 . Pressures throughout the right leg are cno at the high thigh, 112 at the low thigh, 123 at the calf, 90 at the ankle using the posterior tibial artery and 98 at the ankle using the dorsalis pedis artery with ankle-brachial index of 0.84 0.77 . Pressures throughout the left leg are 106 at the ankle using the posterior tibial artery and 116 at the ankle using the dorsalis pedis artery with ankle-brachial index of 0.99 0.91 . Wave forms by plethysmography are biphasic, bilaterally. 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 THE PATIENT IS MOST LIKELY TO HAVE diffuse DISEASE OF THE bilateral LOWER EXTREMITY. Impression dictated by: Zaid Mon MD,FACS,FSVS 10/01/2024 5:27 PM ASSESSMENT 1. Diabetes mellitus due to underlying condition with diabetic polyneuropathy, unspecified whether group home insulin use (HCC) 2. PVD (peripheral vascular disease) 3. Foot ulcer, left, with fat layer exposed (HCC) PLAN Sharp debridement with 15 blade of subcutaneous ulceration to left foot with active bleeding noted and removal and excision of fibrotic and necrotic tissue to wound and DSD applied with neosporin. Ptto continue with calcium alginate every other day Referral to [facility] wound clinic for a serum wound graft treatments or possible hyperbarics as she has severe PVD that is nonoperable at this time and limb- threatening according to vascular surgery at [facility] Ray Hays DPM documented in this encounterOzarks Medical [id number] Telephone encounter Note* Telephone Encounter - Riki Velarde MA - 12/11/2024 8:11 AM EDT Patient called requesting a refill of oxycodone to be sent to [facility] in [place]. [facility] [id number] Miscellaneous Notes* Telephone Encounter - Riki Velarde MA - 12/11/2024 8:11 AM EDT Patient called requesting a refill of oxycodone to be sent to [facility] in [place]. documented in this encounterOzarks Medical [id number] History of Present illness Narrative* KAYE Moses - 12/01/2024 2:00 PM EDT Ema Neff is a 59 y.o. female presents with chief complaint of Weight loss options HPI: History of Present Illness The patient is a female who presents for type 2 diabetes, morbid obesity, shortness of breath, yeast dermatitis, and fatty liver. She is interested in trying Mounjaro to aid in weight loss and reduce her A1c levels, which have been increasing since discontinuing Ozempic due to stomach discomfort. She reports no history of pancreatitis or medullary thyroid cancer. A thyroidectomy was performed, but no cancer was diagnosed. When first diagnosed with diabetes, she was informed of insulin resistance and potential systemic inflammation. She is curious about the possibility of testing for cellular inflammation. She has not yet consulted with Juan J Sim, a scleroscope tester. She is unsure if her insurance covers Ozempic. Currently, she is on insulin and requires a refill of her insulin pens and needles. She mentions that her blood sugar levels dropped significantly while on Ozempic, reaching as low as 48. Typically, she consumes one meal per day. She has been diagnosed with fatty liver disease and is interested in learning more about it. She has not had a FibroScan performed. She suspects an autoimmune condition due to frequent antibiotic use and is interested in ways to boost her immune system. She recalls a hospital doctor suggesting she might have a leaky gut and is seeking more information on this. She experiences fatigue after outdoor activities such as walking or visiting her grandchildren, often feeling unwell the following day. She has been homebound for the past week due to severe dryness and cracking of her foot, which has made it difficult to wear shoes. She uses nystatin ointment for yeast dermatitis, requesting refill. PAST SURGICAL HISTORY: Thyroidectomy I have reviewed and reconciled the history and medication list with the patient today. HISTORIES: PAST MEDICAL HISTORY: Past Medical History: Diagnosis Date Allergic rhinitis Amputation of toe of right foot 08/20/2022 Balance disorder Chronic insomnia Chronic low back pain Chronic pansinusitis Claustrophobia Elevated hemoglobin 08/20/2022 Essential hypertension Fatty liver Gastroesophageal reflux disease without esophagitis 08/20/2022 GERD (gastroesophageal reflux disease) Gout Hammer toe High arches History of colon polyps History of CVA (cerebrovascular accident) Hyperlipidemia Leukocytosis Lumbar spinal stenosis Moderate major depression (HCC) 08/20/2021 Morbid obesity (CMS-HCC) Neuromuscular disorder (HCC) RICK (obstructive sleep apnea) Osteoarthritis of lumbar spine PAOD (peripheral arterial occlusive disease) Peripheral arterial disease 10/16/2024 Peripheral neuropathy Postoperative hypothyroidism 09/17/2021 Santos splints Tobacco abuse Type 2 diabetes mellitus with diabetic nephropathy ([facility]) Vitamin D deficiency 11/25/2022 SURGICAL HISTORY: Past Surgical History: Procedure Laterality Date AMPUTATION AMPUTATION OF REPLICATED TOES Bilateral 10/07/2021 toe 2 ANGIOPLASTY Left 07/2021 Left posterior tibial artery angioplasty, left dorsalis pedis angioplasty, pedal arch reconstruction ARTERIAL BYPASS SURGERY CATARACT EXTRACTION CATARACT EXTRACTION 2020 CHOLECYSTECTOMY 1998 COLONOSCOPY 2013 ENDOMETRIAL ABLATION OTHER SURGICAL HISTORY 12/22/2021 Multiplter laminar epidural injections OTHER SURGICAL HISTORY Left 10/13/2021 L leg anterior tibial to peroneal artery bypass OTHER SURGICAL HISTORY 07/10/2022 ulceration of surgical amputation of 2nd toe POLYPECTOMY PRESSURE ULCER DEBRIDEMENT Bilateral 12/22/2021 foot ulcer SKIN GRAFT 07/11/2024 Epidermal skin graft harvest with the Epitech skin graft harvesting SKIN GRAFT Left 10/09/2024 left foot TOE AMPUTATION Left 10/07/2021 LT toe 2 TONSILLECTOMY 1968 TOTAL THYROIDECTOMY 07/2021 TUBAL LIGATION Bilateral 1988 WOUND DEBRIDEMENT Left 11/09/2021 leg WOUND DEBRIDEMENT 02/19/2023 amputation site, gangrenous tissue left 3rd toe SOCIAL HISTORY: Social History Tobacco Use Smoking status: Former Current packs/day: 0.00 Average packs/day: 1 pack/day for 36.0 years (36.0 ttl pk-yrs) Types: Cigarettes Start date: 03/15/1985 Quit date: 03/15/2021 Years since quittin.7 Smokeless tobacco: Never Vaping Use Vaping status: Never Used Substance Use Topics Alcohol use: Never Comment: caffeine: 2-3 cups per day coffee Drug use: Never Depression: Not at risk (01/05/2024) PHQ-2 PHQ-2 Score: 0 FAMILY HISTORY: Family History Problem Relation Name Age of Onset Pulmonary embolism Mother Pulmonary blood clot Clotting disorder Mother Pulmonary blood clot Hypertension Father Bladder/ diabetes Cancer Father Bladder/ diabetes Diabetes Father Bladder/ diabetes No Known Problems Sister No Known Problems Brother MEDICATIONS: Current Outpatient Medications Medication Instructions albuterol HFA (Ventolin HFA) 90 mcg/act inhaler 2 puffs, Inhalation, Every 4 hours PRN amitriptyline (ELAVIL) 50 mg, Oral, Nightly amoxicillin-clavulanate (Augmentin) 875-125 MG tablet 1 tablet, 2 times daily ASPIRIN 81 MG chewable tablet Every 24 hours atorvastatin (Lipitor) 80 MG tablet TAKE ONE TABLET BY MOUTH DAILY AT 5PM cholecalciferol (VITAMIN D-3) 25 mcg, Daily clopidogrel (PLAVIX) 75 mg, Oral, Daily Continuous Glucose Sensor (FreeStyle Osmin 3 Plus Sensor) misc 1 Device, Does not apply, Every 15 Days cyclobenzaprine (FLEXERIL) 10 mg, Oral, Nightly PRN diphenoxylate-atropine (Lomotil) 2.5-0.025 MG tablet 1 tablet, Oral, 4 times daily PRN DULoxetine (CYMBALTA) 30 mg, Oral, Daily empagliflozin (JARDIANCE) 25 mg, Oral, Daily fluticasone (Flonase) 50 MCG/ACT nasal spray INSTILL TWO SPRAYS IN EACH NOSTRIL DAILY NEEDED gabapentin (NEURONTIN) 800 mg, Oral, 4 times daily before meals and nightly glimepiride (AMARYL) 4 mg, Oral, 2 times daily with meals Lantus SoloStar 20 Units, Subcutaneous, Nightly levothyroxine (SYNTHROID, LEVOXYL) 150 mcg, Oral, Every morning, Take on an empty stomach. losartan (COZAAR) 50 mg, Oral, Daily meclizine (ANTIVERT) 25 mg, Oral, 3 times daily PRN meloxicam (MOBIC) 15 mg, Oral, Daily metoprolol succinate XL (TOPROL-XL) 50 mg, Oral, Daily nystatin (Mycostatin) ointment Topical, Every 12 hours omeprazole (PRILOSEC) 40 mg, Oral, Daily before breakfast, Do not crush or chew. ondansetron (ZOFRAN) 8 mg, Oral, Every 8 hours PRN oxyCODONE (ROXICODONE) 10 mg, Oral, Every 4 hours PRN triamcinolone (Kenalog) 0.5 % cream zolpidem (AMBIEN) 10 mg, Oral, Nightly ALLERGIES: Allergies Allergen Reactions Keegan Inhibitors Cough Hydrocodone Other Reaction(s): Hallucinating Metformin Hcl GI intolerance Ozempic (0.25 Or 0.5 Mg-Dose) [Semaglutide(0.25 Or 0.5mg-Dos)] GI intolerance Pioglitazone Cough Prednisone Unknown Statins Other myalgia Other Reaction(s): Other: See Comments PHYSICAL EXAM: Visit Vitals Smoking Status Former BP Readings from Last 3 Encounters: 10/25/24 100/66 10/17/24 96/60 07/11/24 126/78 Wt Readings from Last 3 Encounters: 11/21/24 253 lb 10/25/24 253 lb 10/25/24 253 lb 11.2 oz Physical Exam General Examination: alert, oriented, normal affect, well-appearing, in no acute distress, well developed, well nourished. Head: normocephalic, atraumatic Eyes: sclera non-icteric Heart: regular rate and rhythm, S1, S2 normal Lungs: clear to auscultation bilaterally. No wheezes, rales, rhonchi. Psych: alert, oriented, cognitive function intact, cooperative with exam. Results Labs - A1c: 10/2024, 10.5% ASSESSMENT AND PLAN: Assessment & Plan 1. Type 2 diabetes: - Her last A1c 1 month ago was 10.5, and her insulin was increased at that time. - Discussed proper use of Mounjaro. She will continue her current insulin regimen. A referral to Juan J SIM, a hematology nurse educator, will be made. - Mounjaro 2.5 mg once a week for 4 weeks will be prescribed, and then the dosage can be increased.Common and rare but serious side effects discussed. 2. Morbid obesity: - The use of Mounjaro is expected to help with weight loss and improve her blood sugar levels. 3. Shortness of breath: - Albuterol will be refilled. 4. Yeast dermatitis: - Nystatin ointment will be refilled. 5. Fatty liver: - Discussed the potential for scarring and fibrosis in the liver. - A FibroScan will be ordered to assess the extent of fibrosis and scarring in the liver. - FIBROSCAN ordered. Follow-up: The patient will follow up in January. Patient is here for follow up of the above chronic problems. I am following Dr. Thrasher's established plan of care for these issues. Dr. Thrasher was not in the office suite today but is available via real-time, audio/visual technology to supervise patient care. documented in this encounterOzarks Medical [id number] History of Present illness Narrative* Ray Hays, DPM - 11/21/2024 2:20 PM EDT Images from the original note were not included. Patient: Ema Neff : 1965 PCP: Jarvis Thrasher MD SUBJECTIVE Pt present today for follow up of ulceration to left foot s/p application of puraply wound graft. Pt has been keeping dressing dry and intact with PWB. Patient denies N/F/V/C. She presents today for follow up of ulceration to the left foot of long standing duration. Pt present today for follow up of ulceration to left foot. Pt denies any n/f/v/c. Patient states that they have been using the following treatments for the ulcer of C[place]. Pt is a DM2. Allergies: Allergies Allergen Reactions Keegan Inhibitors Cough Hydrocodone Other Reaction(s): Hallucinating Metformin Hcl GI intolerance Ozempic (0.25 Or 0.5 Mg-Dose) [Semaglutide(0.25 Or 0.5mg-Dos)] GI intolerance Pioglitazone Cough Prednisone Unknown Statins Other myalgia Other Reaction(s): Other: See Comments Past Medical History: Past Medical History: Diagnosis Date Allergic rhinitis Amputation of toe of right foot 08/20/2022 Balance disorder Chronic insomnia Chronic low back pain Chronic pansinusitis Claustrophobia Elevated hemoglobin 08/20/2022 Essential hypertension Fatty liver Gastroesophageal reflux disease without esophagitis 08/20/2022 GERD (gastroesophageal reflux disease) Gout Hammer toe High arches History of colon polyps History of CVA (cerebrovascular accident) Hyperlipidemia Leukocytosis Lumbar spinal stenosis Moderate major depression (HCC) 08/20/2021 Morbid obesity (CMS-HCC) Neuromuscular disorder (HCC) RICK (obstructive sleep apnea) Osteoarthritis of lumbar spine PAOD (peripheral arterial occlusive disease) Peripheral arterial disease 10/16/2024 Peripheral neuropathy Postoperative hypothyroidism 09/17/2021 Santos splints Tobacco abuse Type 2 diabetes mellitus with diabetic nephropathy (HCC) Vitamin D deficiency 11/25/2022 Medications: Current Outpatient Medications: albuterol HFA (Ventolin HFA) 90 mcg/act inhaler, Inhale 2 puffs every 4 (four) hours if needed for wheezing or shortness of breath, Disp: 8 g, Rfl: 3 amitriptyline (Elavil) 50 MG tablet, Take 1 tablet (50 mg) by mouth at bedtime, Disp: 90 tablet, Rfl: 3 amoxicillin-clavulanate (Augmentin) 875-125 MG tablet, Take 1 tablet by mouth in the morning and 1 tablet before bedtime., Disp: , Rfl: ASPIRIN 81 MG chewable tablet, 1 (one) time each day at the same time., Disp: , Rfl: atorvastatin (Lipitor) 80 MG tablet, TAKE ONE TABLET BY MOUTH DAILY AT 5PM, Disp: 90 tablet, Rfl: 3 cholecalciferol (Vitamin D-3) 25 MCG tablet, Take 25 mcg by mouth Daily, Disp: , Rfl: clopidogrel (Plavix) 75 MG tablet, Take 1 tablet (75 mg) by mouth Daily, Disp: 90 tablet, Rfl: 3 Continuous Glucose Sensor (FreeStyle Osmin 3 Plus Sensor) [facility] [place], 1 Device Every 15 Days, Disp: 2 each, Rfl: 3 cyclobenzaprine (Flexeril) 10 MG tablet, Take 1 tablet (10 mg) by mouth as needed at bedtime for muscle spasms, Disp: 90 tablet, Rfl: 3 diphenoxylate-atropine (Lomotil) 2.5-0.025 MG tablet, Take 1 tablet by mouth 4 (four) times a day as needed for diarrhea, Disp: 30 tablet, Rfl: 0 DULoxetine (Cymbalta) [address] capsule, Take 1 capsule (30 mg) by mouth Daily, Disp: 90 capsule, Rfl: 3 empagliflozin (Jardiance) 25 MG, Take 1 tablet (25 mg) by mouth Daily, Disp: 90 tablet, Rfl: 3 fluticasone (Flonase) 50 MCG/ACT nasal spray, INSTILL TWO SPRAYS IN EACH NOSTRIL DAILY NEEDED, Disp: 16 g, Rfl: 3 gabapentin (Neurontin) 800 MG tablet, Take 1 tablet (800 mg) by mouth in the morning and 1 tablet (800 mg) at noon and 1 tablet (800 mg) in the evening and 1 tablet (800 mg) before bedtime. Take before meals., Disp: 360 tablet, Rfl: 3 glimepiride (Amaryl) 4 MG tablet, Take 1 tablet (4 mg) by mouth in the morning and 1 tablet (4 mg) in the evening. Take with meals., Disp: 180 tablet, Rfl: 3 insulin glargine (Lantus SoloStar) 100 UNIT/ML pen, Inject 20 Units under the skin at bedtime, Disp: 15 mL, Rfl: 1 levothyroxine (Synthroid, Levoxyl) 150 MCG tablet, Take 1 tablet (150 mcg) by mouth in the morning.Take on an empty stomach.., Disp: 90 tablet, Rfl: 3 losartan (Cozaar) 50 MG tablet, Take 1 tablet (50 mg) by mouth Daily, Disp: 90 tablet, Rfl: 3 meclizine (Antivert) 25 MG tablet, Take 1 tablet (25 mg) by mouth 3 (three) times a day as needed for dizziness, Disp: 90 tablet, Rfl: 11 meloxicam (Mobic) 15 MG tablet, Take 1 tablet (15 mg) by mouth Daily, Disp: 90 tablet, Rfl: 3 metoprolol succinate XL (Toprol-XL) 50 MG 24 hr tablet, Take 1 tablet (50 mg) by mouth Daily, Disp:90 tablet, Rfl: 3 nystatin (Mycostatin) ointment, Apply topically every 12 (twelve) hours, Disp: 15 g, Rfl: 2 omeprazole (PriLOSEC) [address] capsule, Take 1 capsule (40 mg) by mouth in the morning. Take beforemeals. Do not crush or chew.., Disp: 90 capsule, Rfl: 3 ondansetron (Zofran) 8 MG tablet, TAKE ONE TABLET (8MG) BY MOUTH EVERY 8 HOURS NEEDED FOR NAUSEAOR VOMITING, Disp: 20 tablet, Rfl: 1 oxyCODONE (Roxicodone) 10 MG immediate release tablet, Take 1 tablet (10 mg) by mouth every 4 (four) hours if needed for severe pain, Disp: 180 tablet, Rfl: 0 triamcinolone (Kenalog) 0.5 % cream, , Disp: , Rfl: zolpidem (Ambien) 10 MG tablet, Take 1 tablet (10 mg) by mouth at bedtime, Disp: 90 tablet, Rfl: 1 Social History: Social History Socioeconomic History Marital status: Spouse name: Not on file Number of children: 3 Years of education: Not on file Highest education level: Not on file Occupational History Occupation: disabled Comment: unemployed Tobacco Use Smoking status: Former Current packs/day: 0.00 Average packs/day: 1 pack/day for 36.0 years (36.0 ttl pk-yrs) Types: Cigarettes Start date: 03/15/1985 Quit date: 03/15/2021 Years since quittin.6 Smokeless tobacco: Never Vaping Use Vaping status: Never Used Substance and Sexual Activity Alcohol use: Never Comment: caffeine: 2-3 cups per day coffee Drug use: Never Sexual activity: Yes Partners: Male control/protection: Post-menopausal Other Topics Concern Not on file Social History Narrative Living with: Boyfriend Social Drivers of Health Financial Resource Strain: Not on file Food Insecurity: Not on file Transportation Needs: Not on file Physical Activity: Not on file Stress: Not on file Social Connections: Not on file Intimate Partner Violence: Not on file Housing Stability: Not on file ROS: General: denies fever, chills, fatigue, malaise Gastrointestinal: denies abdominal pain, ulcers, or changes in appetite or bowel habits Musculoskeletal: positive history of back arthritis Cardiovascular: denies CP, palpitations, irregular rhythms. Positive history of stents to the rightleg in the past 6 months. Patient currently on blood thinner OBJECTIVE LE EXAM: DERM: negative hair growth to b/l feet with thin skin noted. left dorsum of prior amputation site with ulceration to subcutaneous tissue with graft intact. Ulceration to left amputation site and ulceration measures 1 cm x 1.1 cm 0.2 cm depth with minimal fibrous slough and slight serous drainage with negative erythema or probe to bone VASC: non Palpable pedal pulsed b/l with warm to cool tibia to toes b/l NEURO: 5.07 [place] Jen monofilament test intact to digits and forefoot bilaterally 125Hz tuning fork diminished to 1st MPJ bilaterally ORTHO: +5/5 DF/PF/IN/EV right, +5/5 DF/PF/IN/EV left. 20 degrees inversion and 10 degrees eversion STJ b/l. Ankle ROM less than 10 degrees b/l. Positive pain on palpation to left foot ulcer PATH: past [facility] [place] [address] [place] [address] Ultrasound Report Signed Patient: Ema Neff MR#: [id number] 15 : 1965 Acct:[id number] Age/Sex: 59 / F ADM Date: 09/29/24 Loc: Room: Type: [facility] CLI Attending Dr: Ray Hays DPM Ordering Provider: Ray Hays DPM Date of Service: 09/29/24 US/US arterial pvr limited LE: I73.9 Copies to: Ray Hays DPM LOWER EXTREMITY SEGMENTAL ARTERIAL DOPSCAN (PVR) INDICATION: Surveillance study for left leg bypass graft and prior to limitations. PROCEDURE: Right arm blood pressure is 102 , left is 117 . Pressures throughout the right leg are cno at the high thigh, 112 at the low thigh, 123 at the calf, 90 at the ankle using the posterior tibial artery and 98 at the ankle using the dorsalis pedis artery with ankle-brachial index of 0.84 0.77 . Pressures throughout the left leg are 106 at the ankle using the posterior tibial artery and 116 at the ankle using the dorsalis pedis artery with ankle-brachial index of 0.99 0.91 . Wave forms by plethysmography are biphasic, bilaterally. 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 THE PATIENT IS MOST LIKELY TO HAVE diffuse DISEASE OF THE bilateral LOWER EXTREMITY. Impression dictated by: Zaid Mon MD,FACS,FSVS 10/01/2024 5:27 PM ASSESSMENT 1. Diabetes mellitus due to underlying condition with diabetic polyneuropathy, unspecified whether salvage determiner insulin use (HCC) 2. Foot ulcer, left, with fat layer exposed (HCC) 3. PVD (peripheral vascular disease) PLAN Sharp debridement with 15 blade of subcutaneous ulceration to left foot with active bleeding noted and removal and excision of fibrotic and necrotic tissue to wound and DSD applied with neosporin. Ptto continue with calcium alginate every other day Ray Hays DPM documented in this encounterOzarks Medical [id number] Telephone encounter Note* Telephone Encounter - Riki Velarde MA - 11/09/2024 1:07 PM EDT Patient called requesting a refill of oxycodone to be sent to [facility] in [place]. [facility] Medical [id number] Miscellaneous Notes* Telephone Encounter - Riki Velarde MA - 11/09/2024 1:07 PM EDT Patient called requesting a refill of oxycodone to be sent to [facility] in [place]. documented in this encounterOzarks Medical [id number] History of Present illness Narrative* Ray Hays DPM - 10/25/2024 4:30 PM EDT Images from the original note were not included. Patient: Ema Neff : 1965 PCP: Jarvis Thrasher MD SUBJECTIVE Pt present today for follow up of ulceration to left foot s/p application or puraply wound graft. Pt has been keeping dressing dry and intact with PWB. Patient denies N/F/V/C. She presents today for follow up of ulceration to the left foot of long standing duration. Pt was hospitalized last week for suspicion of OM to left foot with cellulitis. She also presented with mental confusion and possible stroke like symptoms. Allergies: Allergies Allergen Reactions Keegan Inhibitors Cough Hydrocodone Other Reaction(s): Hallucinating Metformin Hcl GI intolerance Ozempic (0.25 Or 0.5 Mg-Dose) [Semaglutide(0.25 Or 0.5mg-Dos)] GI intolerance Pioglitazone Cough Prednisone Unknown Statins Other myalgia Other Reaction(s): Other: See Comments Past Medical History: Past Medical History: Diagnosis Date Allergic rhinitis Amputation of toe of right foot 08/20/2022 Balance disorder Chronic insomnia Chronic low back pain Chronic pansinusitis Claustrophobia Elevated hemoglobin 08/20/2022 Essential hypertension Fatty liver Gastroesophageal reflux disease without esophagitis 08/20/2022 GERD (gastroesophageal reflux disease) Gout Hammer toe High arches History of colon polyps History of CVA (cerebrovascular accident) Hyperlipidemia Leukocytosis Lumbar spinal stenosis Moderate major depression (HCC) 08/20/2021 Morbid obesity ([facility]-HCC) Neuromuscular disorder (HCC) RICK (obstructive sleep apnea) Osteoarthritis of lumbar spine PAOD (peripheral arterial occlusive disease) Peripheral arterial disease 10/16/2024 Peripheral neuropathy Postoperative hypothyroidism 09/17/2021 Santos splints Tobacco abuse Type 2 diabetes mellitus with diabetic nephropathy ([facility]) Vitamin D deficiency 11/25/2022 Medications: Current Outpatient Medications: albuterol HFA (Ventolin HFA) 90 mcg/act inhaler, Inhale 2 puffs every 4 (four) hours if needed for wheezing or shortness of breath, Disp: 8 g, Rfl: 3 amitriptyline (Elavil) 50 MG tablet, Take 1 tablet (50 mg) by mouth at bedtime, Disp: 90 tablet, Rfl: 3 ASPIRIN 81 MG chewable tablet, 1 (one) time each day at the same time., Disp: , Rfl: atorvastatin (Lipitor) 80 MG tablet, TAKE ONE TABLET BY MOUTH DAILY AT 5PM, Disp: 90 tablet, Rfl: 3 cholecalciferol (Vitamin D-3) 25 MCG tablet, Take 25 mcg by mouth Daily, Disp: , Rfl: clopidogrel (Plavix) 75 MG tablet, Take 1 tablet (75 mg) by mouth Daily, Disp: 90 tablet, Rfl: 3 Continuous Glucose Sensor (FreeStyle Osmin 3 Plus Sensor) [facility] [place], 1 Device Every 15 Days, Disp: 2 each, Rfl: 3 cyclobenzaprine (Flexeril) 10 MG tablet, Take 1 tablet (10 mg) by mouth as needed at bedtime for muscle spasms, Disp: 90 tablet, Rfl: 3 DULoxetine (Cymbalta) [address] capsule, Take 1 capsule (30 mg) by mouth Daily, Disp: 90 capsule, Rfl: 3 empagliflozin (Jardiance) 25 MG, Take 1 tablet (25 mg) by mouth Daily, Disp: 90 tablet, Rfl: 3 fluticasone (Flonase) 50 MCG/ACT nasal spray, INSTILL TWO SPRAYS IN EACH NOSTRIL DAILY NEEDED, Disp: 16 g, Rfl: 3 gabapentin (Neurontin) 800 MG tablet, Take 1 tablet (800 mg) by mouth in the morning and 1 tablet (800 mg) at noon and 1 tablet (800 mg) in the evening and 1 tablet (800 mg) before bedtime. Take before meals., Disp: 360 tablet, Rfl: 3 glimepiride (Amaryl) 4 MG tablet, Take 1 tablet (4 mg) by mouth in the morning and 1 tablet (4 mg) in the evening. Take with meals., Disp: 180 tablet, Rfl: 3 insulin glargine (Lantus SoloStar) 100 UNIT/ML pen, Inject 20 Units under the skin at bedtime, Disp: 15 mL, Rfl: 1 levothyroxine (Synthroid, Levoxyl) 150 MCG tablet, Take 1 tablet (150 mcg) by mouth in the morning.Take on an empty stomach.., Disp: 90 tablet, Rfl: 3 losartan (Cozaar) 50 MG tablet, Take 1 tablet (50 mg) by mouth Daily, Disp: 90 tablet, Rfl: 3 meclizine (Antivert) 25 MG tablet, Take 1 tablet (25 mg) by mouth 3 (three) times a day as needed for dizziness, Disp: 90 tablet, Rfl: 11 meloxicam (Mobic) 15 MG tablet, Take 1 tablet (15 mg) by mouth Daily, Disp: 90 tablet, Rfl: 3 metoprolol succinate XL (Toprol-XL) 50 MG 24 hr tablet, Take 1 tablet (50 mg) by mouth Daily, Disp:90 tablet, Rfl: 3 nystatin (Mycostatin) ointment, Apply topically every 12 (twelve) hours, Disp: 15 g, Rfl: 2 omeprazole (PriLOSEC) [address] capsule, Take 1 capsule (40 mg) by mouth in the morning. Take beforemeals. Do not crush or chew.., Disp: 90 capsule, Rfl: 3 ondansetron (Zofran) 8 MG tablet, TAKE ONE TABLET (8MG) BY MOUTH EVERY 8 HOURS NEEDED FOR NAUSEAOR VOMITING, Disp: 20 tablet, Rfl: 1 oxyCODONE (Roxicodone) 10 MG immediate release tablet, Take 1 tablet (10 mg) by mouth every 4 (four) hours if needed for severe pain, Disp: 180 tablet, Rfl: 0 triamcinolone (Kenalog) 0.5 % cream, , Disp: , Rfl: zolpidem (Ambien) 10 MG tablet, Take 1 tablet (10 mg) by mouth at bedtime, Disp: 90 tablet, Rfl: 1 Social History: Social History Socioeconomic History Marital status: Spouse name: Not on file Number of children: 3 Years of education: Not on file Highest education level: Not on file Occupational History Occupation: disabled Comment: unemployed Tobacco Use Smoking status: Former Current packs/day: 0.00 Average packs/day: 1 pack/day for 36.0 years (36.0 ttl pk-yrs) Types: Cigarettes Start date: 03/15/1985 Quit date: 03/15/2021 Years since quittin.6 Smokeless tobacco: Never Vaping Use Vaping status: Never Used Substance and Sexual Activity Alcohol use: Never Comment: caffeine: 2-3 cups per day coffee Drug use: Never Sexual activity: Yes Partners: Male control/protection: Post-menopausal Other Topics Concern Not on file Social History Narrative Living with: Boyfriend Social Drivers of Health Financial Resource Strain: Not on file Food Insecurity: Not on file Transportation Needs: Not on file Physical Activity: Not on file Stress: Not on file Social Connections: Not on file Intimate Partner Violence: Not on file Housing Stability: Not on file ROS: General: denies fever, chills, fatigue, malaise Gastrointestinal: denies abdominal pain, ulcers, or changes in appetite or bowel habits Musculoskeletal: positive history of back arthritis Cardiovascular: denies CP, palpitations, irregular rhythms. Positive history of stents to the rightleg in the past 6 months. Patient currently on blood thinner OBJECTIVE LE EXAM: DERM: negative hair growth to b/l feet with thin skin noted. left dorsum of prior amputation site with ulceration to subcutaneous tissue with graft intact. Ulceration to left amputation site and ulceration measures 1 cm x 1 cm 0.2 cm depth with minimal fibrous slough and slight serous drainage withnegative erythema or probe to bone VASC: non Palpable pedal pulsed b/l with warm to cool tibia to toes b/l NEURO: 5.07 [place] Jen monofilament test intact to digits and forefoot bilaterally 125Hz tuning fork diminished to 1st MPJ bilaterally ORTHO: +5/5 DF/PF/IN/EV right, +5/5 DF/PF/IN/EV left. 20 degrees inversion and 10 degrees eversion STJ b/l. Ankle ROM less than 10 degrees b/l. Positive pain on palpation to left foot ulcer PATH: past [facility] [place] [address] [place] [address] Ultrasound Report Signed Patient: Ema Neff MR#: [id number] 15 : 1965 Acct:[id number] Age/Sex: 59 / F ADM Date: 09/29/24 Loc: Room: Type: [facility] CLI Attending Dr: Ray Hays DPM Ordering Provider: Ray Hays DPM Date of Service: 09/29/24 US/US arterial pvr limited LE: I73.9 Copies to: Ray Hays DPM LOWER EXTREMITY SEGMENTAL ARTERIAL DOPSCAN (PVR) INDICATION: Surveillance study for left leg bypass graft and prior to limitations. PROCEDURE: Right arm blood pressure is 102 , left is 117 . Pressures throughout the right leg are cno at the high thigh, 112 at the low thigh, 123 at the calf, 90 at the ankle using the posterior tibial artery and 98 at the ankle using the dorsalis pedis artery with ankle-brachial index of 0.84 0.77 . Pressures throughout the left leg are 106 at the ankle using the posterior tibial artery and 116 at the ankle using the dorsalis pedis artery with ankle-brachial index of 0.99 0.91 . Wave forms by plethysmography are biphasic, bilaterally. 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 THE PATIENT IS MOST LIKELY TO HAVE diffuse DISEASE OF THE bilateral LOWER EXTREMITY. Impression dictated by: Zaid Mon MD,FACS,FSVS 10/01/2024 5:27 PM ASSESSMENT 1. Diabetes mellitus due to underlying condition with diabetic polyneuropathy, unspecified whether group home insulin use (HCC) 2. Foot ulcer, left, with fat layer exposed (HCC) 3. PVD (peripheral vascular disease) PLAN Sharp debridement with 15 blade of subcutaneous ulceration to left foot with active bleeding noted and removal and excision of fibrotic and necrotic tissue to wound and DSD applied with neosporin. Ptto continue with calcium alginate every other day Ray Hays DPM documented in this encounterOzarks Medical [id number] History of Present illness Narrative* Mavis Wild, ROAD [employer] - 10/25/2024 2:00 PM EDT Images from the original note were not included. Ema Neff is a 59 y.o. female presents with chief complaint of Hospital Follow-up ([facility] was [facility]/20-10/22 for PVD, cellulitis and osteomyelitis but treating it like a stroke. Pt to follow up with podiatry (Dr Hays today at 4:30) and vascular surgery (Dr Mon saw pt in hospital). Left before being seen by infection disease doctor. //Today pt reports she's still not eating well, and when she does her blood sugar has been up in the 300s. Pt reports that she has been dealing with watery diarrhea since Wednesday. ) HPI: History of Present Illness The patient is a 59-year-old female who presents today for a hospital follow-up. Potential Stroke She was recently hospitalized due to concerns of a potential stroke. During her stay, she underwentan MRI and MRA, which revealed some shadowing. She was prescribed baby aspirin 81 mg and amoxicillin 875/125 mg. A transthoracic echocardiogram was also performed. She has a history of stroke from 10to 12 years ago, which resulted in right-sided weakness that persists to this day. - Onset: Recently hospitalized due to concerns of a potential stroke. - Location: Right-sided weakness persists from previous stroke. - Duration: History of stroke from 10 to 12 years ago. - Character: MRI and MRA revealed some shadowing. - Alleviating Factors: Prescribed baby aspirin 81 mg and amoxicillin 875/125 mg. Acute Hematogenous Osteomyelitis She was diagnosed with acute hematogenous osteomyelitis of the left ankle and foot. Dr. Mon did not feel that he could revascularize that. He will be on standby when she is ready to have the amputation done. The plan is to amputate below the knee. Dr. Hays said that if she needs an amputation, he thinks it is just toes, but she does not want to keep taking off little by little. An ankle-brachial index study was conducted, showing improvement compared to previous results. - Onset: Diagnosed recently. - Location: Left ankle and foot. - Character: Acute hematogenous osteomyelitis. - Alleviating Factors: Ankle-brachial index study showed improvement; cholesterol medication dosageincreased from 40 to 80. - Timing: Plan to amputate below the knee; Dr. Hays suggests toe amputation. Poor Blood Sugar Control She reports poor blood sugar control, with levels reaching 300 after consuming a bowl of cereal this morning. She is not currently using a sliding scale for insulin administration. She takes Lantus at bedtime and Amaryl 4 mg twice daily. She also takes Jardiance 25 mg. Her morning blood sugar levelwas 190 today. She has never experienced such high blood sugar levels before and attributes this to her ongoing infection. - Onset: Recently experienced high blood sugar levels. - Character: Blood sugar levels reaching 300 after consuming cereal; morning blood sugar level was 190. - Alleviating Factors: Takes Lantus at bedtime, Amaryl 4 mg twice daily, and Jardiance 25 mg. - Severity: Poor blood sugar control attributed to ongoing infection. Diarrhea She experiences diarrhea, which she believes is a side effect of the amoxicillin. She has been using [id number] Imodium for relief. She does not report any foul-smelling stools. - Onset: Since starting amoxicillin. - Character: Diarrhea. - Alleviating Factors: [id number] Imodium. Low Blood Pressure Her blood pressure has been low, but she no longer experiences dizziness or lightheadedness upon standing. She is on losartan 50 mg for blood pressure management. - Character: Low blood pressure. - Alleviating Factors: Losartan 50 mg. - Severity: No longer experiences dizziness or lightheadedness upon standing. PAST SURGICAL HISTORY: She has had the second toe amputated on both feet. She has undergone a graft procedure in the past. I have reviewed and reconciled the history and medication list with the patient today. Flowsheet Row Patient Outreach from 10/24/[address] [facility] with Venita Gramajo LPN Hospital Information ED, Hospital or [facility] Facility Discharge? Hospital Patient has been contacted within two business days of discharge No Have two attempts been made to contact the patient within two business days of being discharged? Yes Diagnosis PVD, AMS, osteomyelitis Discharge Date 10/22/24 Discharged To: Home Setting Discharge [facility] Engagement Admission Date 10/20/24 Medications Appointments Self Management Patient Teaching Wrap Up Wrap Up Additional Comments had labs, CT, blood culture HISTORIES: PAST MEDICAL HISTORY: Past Medical History: Diagnosis Date Allergic rhinitis Amputation of toe of right foot 08/20/2022 Balance disorder Chronic insomnia Chronic low back pain Chronic pansinusitis Claustrophobia Elevated hemoglobin 08/20/2022 Essential hypertension Fatty liver Gastroesophageal reflux disease without esophagitis 08/20/2022 GERD (gastroesophageal reflux disease) Gout Hammer toe High arches History of colon polyps History of CVA (cerebrovascular accident) Hyperlipidemia Leukocytosis Lumbar spinal stenosis Moderate major depression (HCC) 08/20/2021 Morbid obesity (CMS-HCC) Neuromuscular disorder (HCC) RICK (obstructive sleep apnea) Osteoarthritis of lumbar spine PAOD (peripheral arterial occlusive disease) Peripheral arterial disease 10/16/2024 Peripheral neuropathy Postoperative hypothyroidism 09/17/2021 Santos splints Tobacco abuse Type 2 diabetes mellitus with diabetic nephropathy ([facility]) Vitamin D deficiency 11/25/2022 SURGICAL HISTORY: Past Surgical History: Procedure Laterality Date AMPUTATION AMPUTATION OF REPLICATED TOES Bilateral 10/07/2021 toe 2 ANGIOPLASTY Left 07/2021 Left posterior tibial artery angioplasty, left dorsalis pedis angioplasty, pedal arch reconstruction ARTERIAL BYPASS SURGERY CATARACT EXTRACTION CATARACT EXTRACTION 2020 CHOLECYSTECTOMY 1998 COLONOSCOPY 2013 ENDOMETRIAL ABLATION OTHER SURGICAL HISTORY 12/22/2021 Multiplter laminar epidural injections OTHER SURGICAL HISTORY Left 10/13/2021 L leg anterior tibial to peroneal artery bypass OTHER SURGICAL HISTORY 07/10/2022 ulceration of surgical amputation of 2nd toe POLYPECTOMY PRESSURE ULCER DEBRIDEMENT Bilateral 12/22/2021 foot ulcer SKIN GRAFT 07/11/2024 Epidermal skin graft harvest with the Epitech skin graft harvesting SKIN GRAFT Left 10/09/2024 left foot TOE AMPUTATION Left 10/07/2021 LT toe 2 TONSILLECTOMY 1968 TOTAL THYROIDECTOMY 07/2021 TUBAL LIGATION Bilateral 1988 WOUND DEBRIDEMENT Left 11/09/2021 leg WOUND DEBRIDEMENT 02/19/2023 amputation site, gangrenous tissue left 3rd toe SOCIAL HISTORY: Social History Tobacco Use Smoking status: Former Current packs/day: 0.00 Average packs/day: 1 pack/day for 36.0 years (36.0 ttl pk-yrs) Types: Cigarettes Start date: 03/15/1985 Quit date: 03/15/2021 Years since quittin.6 Smokeless tobacco: Never Vaping Use Vaping status: Never Used Substance Use Topics Alcohol use: Never Comment: caffeine: 2-3 cups per day coffee Drug use: Never Depression: Not at risk (01/05/2024) PHQ-2 PHQ-2 Score: 0 FAMILY HISTORY: Family History Problem Relation Name Age of Onset Pulmonary embolism Mother Pulmonary blood clot Clotting disorder Mother Pulmonary blood clot Hypertension Father Bladder/ diabetes Cancer Father Bladder/ diabetes Diabetes Father Bladder/ diabetes No Known Problems Sister No Known Problems Brother MEDICATIONS: Current Outpatient Medications Medication Instructions albuterol HFA (Ventolin HFA) 90 mcg/act inhaler 2 puffs, Inhalation, Every 4 hours PRN amitriptyline (ELAVIL) 50 mg, Oral, Nightly amoxicillin-clavulanate (Augmentin) 875-125 MG tablet 1 tablet, 2 times daily ASPIRIN 81 MG chewable tablet Every 24 hours atorvastatin (Lipitor) 80 MG tablet TAKE ONE TABLET BY MOUTH DAILY AT 5PM cholecalciferol (VITAMIN D-3) 25 mcg, Daily clopidogrel (PLAVIX) 75 mg, Oral, Daily Continuous Glucose Sensor (FreeStyle Osmin 3 Plus Sensor) misc 1 Device, Does not apply, Every 15 Days cyclobenzaprine (FLEXERIL) 10 mg, Oral, Nightly PRN diphenoxylate-atropine (Lomotil) 2.5-0.025 MG tablet 1 tablet, Oral, 4 times daily PRN DULoxetine (CYMBALTA) 30 mg, Oral, Daily empagliflozin (JARDIANCE) 25 mg, Oral, Daily fluticasone (Flonase) 50 MCG/ACT nasal spray INSTILL TWO SPRAYS IN EACH NOSTRIL DAILY NEEDED gabapentin (NEURONTIN) 800 mg, Oral, 4 times daily before meals and nightly glimepiride (AMARYL) 4 mg, Oral, 2 times daily with meals Lantus SoloStar 20 Units, Subcutaneous, Nightly levothyroxine (SYNTHROID, LEVOXYL) 150 mcg, Oral, Every morning, Take on an empty stomach. losartan (COZAAR) 50 mg, Oral, Daily meclizine (ANTIVERT) 25 mg, Oral, 3 times daily PRN meloxicam (MOBIC) 15 mg, Oral, Daily metoprolol succinate XL (TOPROL-XL) 50 mg, Oral, Daily nystatin (Mycostatin) ointment Topical, Every 12 hours omeprazole (PRILOSEC) 40 mg, Oral, Daily before breakfast, Do not crush or chew. ondansetron (ZOFRAN) 8 mg, Oral, Every 8 hours PRN oxyCODONE (ROXICODONE) 10 mg, Oral, Every 4 hours PRN triamcinolone (Kenalog) 0.5 % cream zolpidem (AMBIEN) 10 mg, Oral, Nightly ALLERGIES: Allergies Allergen Reactions Keegan Inhibitors Cough Hydrocodone Other Reaction(s): Hallucinating Metformin Hcl GI intolerance Ozempic (0.25 Or 0.5 Mg-Dose) [Semaglutide(0.25 Or 0.5mg-Dos)] GI intolerance Pioglitazone Cough Prednisone Unknown Statins Other myalgia Other Reaction(s): Other: See Comments PHYSICAL EXAM: Visit Vitals BP 100/66 Pulse 78 Ht 5' 5 Wt 253 lb 11.2 oz SpO2 94% BMI 42.22 kg/m Smoking Status Former BSA 2.3 m BP Readings from Last 3 Encounters: 10/25/24 100/66 10/17/24 96/60 07/11/24 126/78 Wt Readings from Last 3 Encounters: 10/25/24 253 lb 11.2 oz 10/17/24 261 lb 10/03/24 250 lb Physical Exam Constitutional: General: She is not in acute distress. Appearance: Normal appearance. HENT: Head: Normocephalic. Eyes: Extraocular Movements: Extraocular movements intact. Neck: Vascular: Carotid bruit present. Comments: Right carotid bruit Cardiovascular: Rate and Rhythm: Normal rate and regular rhythm. Heart sounds: Normal heart sounds. No murmur heard. Pulmonary: Effort: Pulmonary effort is normal. No respiratory distress. Breath sounds: Normal breath sounds. No wheezing, rhonchi or rales. Abdominal: General: Bowel sounds are normal. Palpations: Abdomen is soft. Tenderness: There is no abdominal tenderness. Musculoskeletal: General: Normal range of motion. Cervical back: Normal range of motion. Comments: 2nd toe amputation bilaterally, wearing shoe boot Skin: General: Skin is warm and dry. Neurological: Mental Status: She is alert and oriented to person, place, and time. Psychiatric: Mood and Affect: Mood normal. Thought Content: Thought content normal. Judgment: Judgment normal. Results Labs - A1c: 10.3 Imaging - CT head: Wedge shaped hypodense area in the right frontal lobe, indicating cytotoxic versus vasogenic edema, strong consideration for acute stroke, but ultimately age indeterminate. ASSESSMENT AND PLAN: Assessment & Plan 1. Acute CVA (cerebrovascular accident) ([facility]) (Primary) - Discharged on 10/22/2024 after treatment for acute hematogenous osteomyelitis of the left ankle and foot. Attending physician did not recommend revascularization due to previous unsuccessful attempts. Prescribed Augmentin 875/125 mg, suspected to cause diarrhea. - Prescription for Lomotil will be sent to pharmacy to manage diarrhea. If symptoms persist, C. difficile infection will be considered. - Reported history of stroke from 10-12 years ago, affecting right side. Recent imaging showed a wedge-shaped hypodense area in the right frontal lobe, with strong consideration for an acute stroke but ultimately age indeterminate. 2. Type 2 diabetes mellitus with diabetic polyneuropathy, without long-term current use of insulin ([facility]) - A1c was 10.3 in the hospital. Currently on Lantus 20 units at bedtime, Amaryl 4 mg twice a day, and Jardiance 25 mg. - Increase Lantus to 30 units at bedtime and check sugars every morning. Increase Lantus by 2 unitsevery 2 days until morning sugars are between 110-120. Maintain dosage once stabilized and contact the office. - Referral to a hematology nurse educator will be considered if sugars remain uncontrolled. 3. Essential hypertension - Blood pressure has been low. Currently on losartan 50 mg. - Cut losartan dose in half for a couple of days, especially if experiencing lightheadedness or dizziness. 4. Diarrhea, unspecified type - diphenoxylate-atropine (Lomotil) 2.5-0.025 MG tablet; Take 1 tablet by mouth 4 (four) times a dayas needed for diarrhea Dispense: 30 tablet; Refill: 0 Dr. Thrasher was present in office suite today and is supervising patient care and available for consult. I'm following his plan of care for the above problems. Previous notes and plan were reviewed and followed. Follow-up: 01/17/2025. documented in this encounterOzarks Medical [id number] Evaluation note* Diagnosis Onset Date Resolution Status Admit Date Acute hematogenous osteomyelitis, left a nkle and foot acuteAugust 2024 3:08amAltered mental statusacuteAugust 2024 3:08am CellulitisacuteAugust 2024 3:08amOsteomyelitisacuteAugust 2024 3:08am PVD (peripheral vascular disease)acuteAugust 2024 3:08amType 2 diabetes mellitus with diabetic nephropathyacuteAugust 2024 3:08am [facility] Work Phone: 1(792) 637-532708-08-2025 Evaluation note* Diagnosis Onset Date Resolution Status Admit Date Acute hematogenous osteomyelitis, left a nkle and foot acuteAugust 2024 3:08amAltered mental statusacuteAugust 2024 3:08am CellulitisacuteAugust 2024 3:08amOsteomyelitisacuteAugust 2024 3:08am PVD (peripheral vascular disease)acuteAugust 2024 3:08amType 2 diabetes mellitus with diabetic nephropathyacuteAugust 2024 3:08amAltered mental statusacuteOctober 2024 8:47pmCellulitisacuteOctober 2024 8:47pm Chronic low back painacuteOct2024 8:47pmDiabetes mellitus with hyperglycemiaacuteOctober 2024 8:47pmDiabetic ulcer of left footacute December 29, 2024 8:47pmHypertensionacuteOctober 2024 8:47pmNeutrophilia acuteOct2024 8:47pmPolycythemiaacuteOctober 2024 8:47pmSeptic encephalopathyacuteOctober 2024 8:47pm [facility] Work Phone: 1(793) 847-727008-08-2025 Evaluation note* Diagnosis Onset Date Resolution Status Admit Date Acute hematogenous osteomyelitis, left a nkle and foot acuteAugust 2024 3:08amAltered mental statusacuteAugust 2024 3:08am CellulitisacuteAugust 2024 3:08amOsteomyelitisacuteAugust 2024 3:08am PVD (peripheral vascular disease)acuteAugust 2024 3:08amType 2 diabetes mellitus with diabetic nephropathyacuteAugust 2024 3:08amAltered mental statusacuteOctober 2024 8:47pmCellulitisacuteOctober 2024 8:47pm Cellulitis of left legacuteOctober 2024 8:47pmChronic low back painacute December 29, 2024 8:47pmChronic ulcer of left foot with fat layer exposedacute December 29, 2024 8:47pmDiabetes mellitus due to underlying condition with diabetic neuropathy,acuteOctober 2024 8:47pmDiabetes mellitus with hyperglycemiaacuteOctober 2024 8:47pmDiabetic ulcer of left footacute December 29, 2024 8:47pmHypertensionacuteOctober 2024 8:47pmNeutrophilia acuteOctober 2024 8:47pmPolycythemiaacuteOctober 2024 8:47pmSeptic encephalopathyacuteOctober 2024 8:47pm [facility] Work Phone: 1(412) 994-584808-06-2025 Telephone encounter Note* Telephone Encounter - Ray Hays DPM - 10/18/2024 1:23 PM EDT ok [facility] Work Phone: 1(248) 485-779908-06-2025 Miscellaneous Notes* Telephone Encounter - Ray Hays DPM - 10/18/2024 1:23 PM EDT ok * Telephone Encounter - Damien Moore - 10/18/2024 12:53 PM EDT Pt brother called barbra Morgan was not feeling well, rescheduled appt to Joseph 10/19 at 10:40am. documented in this encounterOzarks Medical [id number] Telephone encounter Note* Telephone Encounter - Damien Moore - 10/18/2024 12:53 PM EDT Pt brother called saying Ema was not feeling well, rescheduled appt to Joseph 10/19 at 10:40am. [facility] [id number] History of Present illness Narrative* Claudy Soriano, GENEVA - 10/17/2024 2:30 PM EDT Images from the original note were not included. Ema Neff is a 59 y.o. female presents with chief complaint of 3 month follow up of chronic conditions HPI: History of Present Illness The patient is a 59-year-old female here today for a 3-month office visit. Low Oxygen Levels and Disrupted Sleep She reports that her oxygen levels have been consistently low, as measured at home. She does not use a CPAP machine due to previous unsuccessful attempts. Her sleep has been disrupted recently due tofoot discomfort, averaging about 4 to 5 hours per night. - Onset: Recent disruption in sleep due to foot discomfort. - Duration: Sleep disruption averaging about 4 to 5 hours per night. - Character: Low oxygen levels, disrupted sleep. - Alleviating/Aggravating Factors: Does not use CPAP machine due to previous unsuccessful attempts. - Severity: Consistently low oxygen levels. Side Effects from Medications She underwent blood work this morning and occasionally monitors her blood sugar levels at home, which she reports as stable. She experienced side effects from metformin and Ozempic, including severe illness from the latter. She is currently on Jardiance and glimepiride twice daily. She takes ondansetron. - Character: Side effects from metformin and Ozempic, including severe illness from Ozempic. - Severity: Severe illness from Ozempic. Blood Pressure and Heart Health She does not consult with a superintendent institution. She was prescribed metoprolol when she had hyperthyroidism and tachycardia. She has been on atenolol for several years and also takes metoprolol. Her blood pressure is typically low, but she does not experience dizziness. She reports no chest pain or breathing difficulties. - Character: Low blood pressure, no dizziness, no chest pain or breathing difficulties. - Severity: Blood pressure typically low. Overactive Bladder Symptoms She has been experiencing overactive bladder symptoms for the past 6 months, which she manages withKegel exercises. She has difficulty getting up and down from the floor. - Onset: Past 6 months. - Duration: Persistent for the past 6 months. - Character: Overactive bladder symptoms. - Alleviating Factors: Manages with Kegel exercises. Foot Surgery She is scheduled to see Dr. Hays tomorrow for her foot, which was operated on last Wednesday. - Onset: Foot operated on last Wednesday. - Timing: Scheduled to see Dr. Hays tomorrow. Hobbies: Swimming at the [employer] Sleep: Averages about 4 to 5 hours per night PAST SURGICAL HISTORY: - Foot surgery on 10/09/2024 - Previous foot surgery (date unspecified) I have reviewed and reconciled the history and medication list with the patient today. HISTORIES: PAST MEDICAL HISTORY: Past Medical History: Diagnosis Date Allergic rhinitis Amputation of toe of right foot 08/20/2022 Balance disorder Chronic insomnia Chronic low back pain Chronic pansinusitis Claustrophobia Elevated hemoglobin 08/20/2022 Essential hypertension Fatty liver Gastroesophageal reflux disease without esophagitis 08/20/2022 GERD (gastroesophageal reflux disease) Gout Hammer toe High arches History of colon polyps History of CVA (cerebrovascular accident) Hyperlipidemia Leukocytosis Lumbar spinal stenosis Moderate major depression (HCC) 08/20/2021 Morbid obesity (CMS-HCC) Neuromuscular disorder (HCC) RICK (obstructive sleep apnea) Osteoarthritis of lumbar spine PAOD (peripheral arterial occlusive disease) Peripheral arterial disease 10/16/2024 Peripheral neuropathy Postoperative hypothyroidism 09/17/2021 Santos splints Tobacco abuse Type 2 diabetes mellitus with diabetic nephropathy (HCC) Vitamin D deficiency 11/25/2022 SURGICAL HISTORY: Past Surgical History: Procedure Laterality Date AMPUTATION AMPUTATION OF REPLICATED TOES Bilateral 10/07/2021 toe 2 ANGIOPLASTY Left 07/2021 Left posterior tibial artery angioplasty, left dorsalis pedis angioplasty, pedal arch reconstruction ARTERIAL BYPASS SURGERY CATARACT EXTRACTION CATARACT EXTRACTION 2020 CHOLECYSTECTOMY 1998 COLONOSCOPY 2013 ENDOMETRIAL ABLATION OTHER SURGICAL HISTORY 12/22/2021 Multiplter laminar epidural injections OTHER SURGICAL HISTORY Left 10/13/2021 L leg anterior tibial to peroneal artery bypass OTHER SURGICAL HISTORY 07/10/2022 ulceration of surgical amputation of 2nd toe POLYPECTOMY PRESSURE ULCER DEBRIDEMENT Bilateral 12/22/2021 foot ulcer SKIN GRAFT 07/11/2024 Epidermal skin graft harvest with the Epitech skin graft harvesting TOE AMPUTATION Left 10/07/2021 LT toe 2 TONSILLECTOMY 1968 TOTAL THYROIDECTOMY 07/2021 TUBAL LIGATION Bilateral 1988 WOUND DEBRIDEMENT Left 11/09/2021 leg WOUND DEBRIDEMENT 02/19/2023 amputation site, gangrenous tissue left 3rd toe SOCIAL HISTORY: Social History Tobacco Use Smoking status: Former Current packs/day: 0.00 Average packs/day: 1 pack/day for 36.0 years (36.0 ttl pk-yrs) Types: Cigarettes Start date: 03/15/1985 Quit date: 03/15/2021 Years since quittin.5 Smokeless tobacco: Never Vaping Use Vaping status: Never Used Substance Use Topics Alcohol use: Never Comment: caffeine: 2-3 cups per day coffee Drug use: Never Depression: Not at risk (01/05/2024) PHQ-2 PHQ-2 Score: 0 FAMILY HISTORY: Family History Problem Relation Name Age of Onset Pulmonary embolism Mother Pulmonary blood clot Clotting disorder Mother Pulmonary blood clot Hypertension Father Bladder/ diabetes Cancer Father Bladder/ diabetes Diabetes Father Bladder/ diabetes No Known Problems Sister No Known Problems Brother MEDICATIONS: Current Outpatient Medications Medication Instructions albuterol HFA (Ventolin HFA) 90 mcg/act inhaler 2 puffs, Inhalation, Every 4 hours PRN amitriptyline (ELAVIL) 50 mg, Oral, Nightly ASPIRIN 81 MG chewable tablet Every 24 hours atorvastatin (Lipitor) 80 MG tablet TAKE ONE TABLET BY MOUTH DAILY AT 5PM cholecalciferol (VITAMIN D-3) 25 mcg, Daily clopidogrel (PLAVIX) 75 mg, Oral, Daily cyclobenzaprine (FLEXERIL) 10 mg, Oral, Nightly PRN DULoxetine (CYMBALTA) 30 mg, Oral, Daily empagliflozin (JARDIANCE) 25 mg, Oral, Daily fluticasone (Flonase) 50 MCG/ACT nasal spray INSTILL TWO SPRAYS IN EACH NOSTRIL DAILY NEEDED gabapentin (NEURONTIN) 800 mg, Oral, 4 times daily before meals and nightly glimepiride (AMARYL) 4 mg, Oral, 2 times daily with meals levothyroxine (SYNTHROID, LEVOXYL) 150 mcg, Oral, Every morning, Take on an empty stomach. losartan (COZAAR) 50 mg, Oral, Daily meclizine (ANTIVERT) 25 mg, Oral, 3 times daily PRN meloxicam (MOBIC) 15 mg, Oral, Daily metoprolol succinate XL (TOPROL-XL) 50 mg, Oral, Daily nystatin (Mycostatin) ointment Topical, Every 12 hours omeprazole (PRILOSEC) 40 mg, Oral, Daily before breakfast, Do not crush or chew. ondansetron (ZOFRAN) 8 mg, Oral, Every 8 hours PRN oxyCODONE (ROXICODONE) 10 mg, Oral, Every 4 hours PRN triamcinolone (Kenalog) 0.5 % cream zolpidem (AMBIEN) 10 mg, Oral, Nightly ALLERGIES: Allergies Allergen Reactions Keegan Inhibitors Cough Hydrocodone Other Reaction(s): Hallucinating Metformin Hcl GI intolerance Ozempic (0.25 Or 0.5 Mg-Dose) [Semaglutide(0.25 Or 0.5mg-Dos)] GI intolerance Pioglitazone Cough Prednisone Unknown Statins Other myalgia Other Reaction(s): Other: See Comments PHYSICAL EXAM: Visit Vitals BP 96/60 Pulse 77 Ht 5' 5 Wt 261 lb SpO2 95% BMI 43.43 kg/m Smoking Status Former BSA 2.33 m BP Readings from Last 3 Encounters: 10/17/24 96/60 07/11/24 126/78 05/29/24 114/64 Wt Readings from Last 3 Encounters: 10/17/24 261 lb 10/03/24 250 lb 09/13/24 250 lb Physical Exam HENT: Mouth/Throat: Mouth: Mucous membranes are moist. Neck: Vascular: No carotid bruit. Cardiovascular: Rate and Rhythm: Normal rate and regular rhythm. Heart sounds: No murmur heard. No friction rub. No gallop. Pulmonary: Effort: Pulmonary effort is normal. Breath sounds: Normal breath sounds. Abdominal: General: Bowel sounds are normal. Palpations: Abdomen is soft. Tenderness: There is no abdominal tenderness. Musculoskeletal: Right lower leg: No edema. Left lower leg: No edema. Lymphadenopathy: Cervical: No cervical adenopathy. Skin: General: Skin is warm and dry. Neurological: Mental Status: She is alert and oriented to person, place, and time. Psychiatric: Thought Content: Thought content normal. Results Labs - A1c: 07/2024, 9.4 ASSESSMENT AND PLAN: Assessment & Plan 1. Type 2 diabetes mellitus with diabetic polyneuropathy, without long-term current use of insulin (HCC) (Primary) Type 2 Diabetes Mellitus: Stable. - A1c level had shown improvement, decreasing from 10 to 9.4 over the past three months. - Currently on Jardiance 25 mg and glimepiride twice a day. - Blood work, including A1c, kidney, liver, and CBC, was done today; results will be communicated via [employer]. - Advised to continue current medication regimen. 2. Essential hypertension Hypertension: Stable. - Blood pressure readings are consistently low, likely due to the concurrent use of two beta blockers, metoprolol and atenolol. - Advised to discontinue atenolol and continue only with metoprolol. - Will send a [employer] message to confirm discontinuation of atenolol. - No signs of dizziness or chest pain reported. 3. Peripheral arterial disease Stable. Continue to monitor. 4. History of stroke without residual deficits Stable. Continue risk factor reduction. 5. Metabolic dysfunction-associated steatotic liver disease (MASLD) Stable. Continue to monitor. 6. Chronic insomnia Doing well. Continue current regimen. 7. RICK (obstructive sleep apnea) Stable. Continue to monitor. 8. Class 3 severe obesity due to excess calories with serious comorbidity and body mass index (BMI)of 40.0 to 44.9 in adult ([facility] Encouraged to eat a healthy diet and exercise regularly as able. She is limited due to her foot issues. 9. BMI 40.0-44.9, adult ([facility] As above. Overactive bladder: Chronic. - Informed about the potential side effects of medication for overactive bladder, including dry mouth, dry eyes, hypotension, and dizziness. - Recommended pelvic floor therapy as a more effective treatment option. - Instructed to perform pelvic floor exercises in bed. Follow-up - A follow-up visit is scheduled in [address] Thrasher was present in the office at the time of visit today and is supervising patient care. I amfollowing Dr. Thrasher's established plan of care for the above issues. documented in this encounterOzarks Medical [id number] Telephone encounter Note* Telephone Encounter - Riki Velarde MA - 10/10/2024 2:06 PM EDT Patient called requesting a refill of oxycodone to be sent to [facility] in [place] [facility] [id number] Miscellaneous Notes* Telephone Encounter - Riki Velarde MA - 10/10/2024 2:06 PM EDT Patient called requesting a refill of oxycodone to be sent to [facility] in [place]. documented in this encounterOzarks Medical [id number] History of Present illness Narrative* Ray Hays DPM - 10/03/2024 11:50 AM EDT Images from the original note were not included. Patient: Ema Neff : 1965 PCP: Jarvis Thrasher MD SUBJECTIVE Pt present today for follow up of ulceration to left foot and 14 wks s/p EDSG Pt denies any n/f/v/c. Patient states that they have been applying ciarra to ulcer. Pt is a DM2. Pt presents today for follow up of staged procedure. She had previous biopsy of ulcer Patient has had ulcer greater than 2 years with multiple treatments by other providers in the past. Patient presents today for follow up She has had noninvasive studies and presents today for follow-up Decision for surgery today for left foot longstanding ulceration with micro film and patient be scheduled for a PuraPly wound graft under local anesthetic in the near future Allergies: Allergies Allergen Reactions Keegan Inhibitors Cough Hydrocodone Other Reaction(s): Hallucinating Metformin Hcl GI intolerance Ozempic (0.25 Or 0.5 Mg-Dose) [Semaglutide(0.25 Or 0.5mg-Dos)] GI intolerance Pioglitazone Cough Prednisone Unknown Statins Other myalgia Other Reaction(s): Other: See Comments Past Medical History: Past Medical History: Diagnosis Date Allergic rhinitis Amputation of toe of right foot 08/20/2022 Balance disorder Chronic insomnia Chronic low back pain Chronic pansinusitis Claustrophobia Elevated hemoglobin 08/20/2022 Essential hypertension Fatty liver Gastroesophageal reflux disease without esophagitis 08/20/2022 GERD (gastroesophageal reflux disease) Gout Hammer toe High arches History of colon polyps History of CVA (cerebrovascular accident) Hyperlipidemia Leukocytosis Lumbar spinal stenosis Moderate major depression (HCC) 08/20/2021 Morbid obesity (CMS-HCC) Neuromuscular disorder (HCC) RICK (obstructive sleep apnea) Osteoarthritis of lumbar spine PAOD (peripheral arterial occlusive disease) Peripheral neuropathy Postoperative hypothyroidism 09/17/2021 Santos splints Tobacco abuse Type 2 diabetes mellitus with diabetic nephropathy ([facility]) Vitamin D deficiency 11/25/2022 Medications: Current Outpatient Medications: albuterol HFA (Ventolin HFA) 90 mcg/act inhaler, Inhale 2 puffs every 4 (four) hours if needed for wheezing or shortness of breath, Disp: 8 g, Rfl: 3 amitriptyline (Elavil) 50 MG tablet, Take 1 tablet (50 mg) by mouth at bedtime, Disp: 90 tablet, Rfl: 3 ASPIRIN 81 MG chewable tablet, 1 (one) time each day at the same time., Disp: , Rfl: atorvastatin (Lipitor) 80 MG tablet, TAKE ONE TABLET BY MOUTH DAILY AT 5PM, Disp: 90 tablet, Rfl: 3 cholecalciferol (Vitamin D-3) 25 MCG tablet, Take 25 mcg by mouth Daily, Disp: , Rfl: clopidogrel (Plavix) 75 MG tablet, Take 1 tablet (75 mg) by mouth Daily, Disp: 90 tablet, Rfl: 3 collagenase (Santyl) 250 UNIT/GM ointment, Apply 1 application topically Daily, Disp: 90 g, Rfl: 2 cyclobenzaprine (Flexeril) 10 MG tablet, Take 1 tablet (10 mg) by mouth as needed at bedtime for muscle spasms, Disp: 90 tablet, Rfl: 3 DULoxetine (Cymbalta) [address] capsule, Take 1 capsule (30 mg) by mouth Daily, Disp: 90 capsule, Rfl: 3 empagliflozin (Jardiance) 25 MG, Take 1 tablet (25 mg) by mouth Daily, Disp: 90 tablet, Rfl: 3 fluticasone (Flonase) 50 MCG/ACT nasal spray, INSTILL TWO SPRAYS IN EACH NOSTRIL DAILY NEEDED, Disp: 16 g, Rfl: 3 gabapentin (Neurontin) 800 MG tablet, Take 1 tablet (800 mg) by mouth in the morning and 1 tablet (800 mg) at noon and 1 tablet (800 mg) in the evening and 1 tablet (800 mg) before bedtime. Take before meals., Disp: 360 tablet, Rfl: 3 glimepiride (Amaryl) 4 MG tablet, Take 1 tablet (4 mg) by mouth in the morning and 1 tablet (4 mg) in the evening. Take with meals., Disp: 180 tablet, Rfl: 3 levothyroxine (Synthroid, Levoxyl) 150 MCG tablet, Take 1 tablet (150 mcg) by mouth in the morning.Take on an empty stomach.., Disp: 90 tablet, Rfl: 3 losartan (Cozaar) 50 MG tablet, Take 1 tablet (50 mg) by mouth Daily, Disp: 90 tablet, Rfl: 3 meclizine (Antivert) 25 MG tablet, Take 1 tablet (25 mg) by mouth 3 (three) times a day as needed for dizziness, Disp: 90 tablet, Rfl: 11 meloxicam (Mobic) 15 MG tablet, Take 1 tablet (15 mg) by mouth Daily, Disp: 90 tablet, Rfl: 3 metoprolol succinate XL (Toprol-XL) 50 MG 24 hr tablet, Take 1 tablet (50 mg) by mouth Daily, Disp:90 tablet, Rfl: 3 nystatin (Mycostatin) ointment, Apply topically every 12 (twelve) hours, Disp: 15 g, Rfl: 2 omeprazole (PriLOSEC) [address] capsule, Take 1 capsule (40 mg) by mouth in the morning. Take beforemeals. Do not crush or chew.., Disp: 90 capsule, Rfl: 3 ondansetron (Zofran) 8 MG tablet, TAKE ONE TABLET (8MG) BY MOUTH EVERY 8 HOURS NEEDED FOR NAUSEAOR VOMITING, Disp: 20 tablet, Rfl: 1 oxyCODONE (Roxicodone) 10 MG immediate release tablet, Take 1 tablet (10 mg) by mouth every 4 (four) hours if needed for severe pain, Disp: 180 tablet, Rfl: 0 triamcinolone (Kenalog) 0.5 % cream, , Disp: , Rfl: zolpidem (Ambien) 10 MG tablet, Take 1 tablet (10 mg) by mouth at bedtime, Disp: 90 tablet, Rfl: 1 Social History: Social History Socioeconomic History Marital status: Spouse name: Not on file Number of children: 3 Years of education: Not on file Highest education level: Not on file Occupational History Occupation: disabled Comment: unemployed Tobacco Use Smoking status: Former Current packs/day: 0.00 Average packs/day: 1 pack/day for 36.0 years (36.0 ttl pk-yrs) Types: Cigarettes Start date: 03/15/1985 Quit date: 03/15/2021 Years since quittin.5 Smokeless tobacco: Never Vaping Use Vaping status: Never Used Substance and Sexual Activity Alcohol use: Never Comment: caffeine: 2-3 cups per day coffee Drug use: Never Sexual activity: Yes Partners: Male control/protection: Post-menopausal Other Topics Concern Not on file Social History Narrative Living with: Boyfriend Social Drivers of Health Financial Resource Strain: Not on file Food Insecurity: Not on file Transportation Needs: Not on file Physical Activity: Not on file Stress: Not on file Social Connections: Not on file Intimate Partner Violence: Not on file Housing Stability: Not on file ROS: General: denies fever, chills, fatigue, malaise Gastrointestinal: denies abdominal pain, ulcers, or changes in appetite or bowel habits Musculoskeletal: positive history of back arthritis Cardiovascular: denies CP, palpitations, irregular rhythms. Positive history of stents to the rightleg in the past 6 months. Patient currently on blood thinner OBJECTIVE LE EXAM: DERM: negative hair growth to b/l feet with thin skin noted. left dorsum of prior amputation site with ulceration to subcutaneous tissue that measures 0.8m x 0.5cm x 0.2 cm with diminished fibrous slough and slight serous drainage with negative probe to bone VASC: non Palpable pedal pulsed b/l with warm to cool tibia to toes b/l NEURO: 5.07 [place] Jen monofilament test intact to digits and forefoot bilaterally 125Hz tuning fork diminished to 1st MPJ bilaterally ORTHO: +5/5 DF/PF/IN/EV right, +5/5 DF/PF/IN/EV left. 20 degrees inversion and 10 degrees eversion STJ b/l. Ankle ROM less than 10 degrees b/l. Positive pain on palpation to left foot ulcer PATH: past [facility] [place] [address] [place] [address] Ultrasound Report Signed Patient: Ema Neff MR#: [id number] 15 : 1965 Acct:[id number] Age/Sex: 59 / F ADM Date: 09/29/24 Loc: UL Room: Type: [facility] CLI Attending Dr: Ray Hays DPM Ordering Provider: Ray Hays DPM Date of Service: 09/29/24 US/US arterial pvr limited LE: I73.9 Copies to: Ray Hays DPM LOWER EXTREMITY SEGMENTAL ARTERIAL DOPSCAN (PVR) INDICATION: Surveillance study for left leg bypass graft and prior to limitations. PROCEDURE: Right arm blood pressure is 102 , left is 117 . Pressures throughout the right leg are cno at the high thigh, 112 at the low thigh, 123 at the calf, 90 at the ankle using the posterior tibial artery and 98 at the ankle using the dorsalis pedis artery with ankle-brachial index of 0.84 0.77 . Pressures throughout the left leg are 106 at the ankle using the posterior tibial artery and 116 at the ankle using the dorsalis pedis artery with ankle-brachial index of 0.99 0.91 . Wave forms by plethysmography are biphasic, bilaterally. 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 THE PATIENT IS MOST LIKELY TO HAVE diffuse DISEASE OF THE bilateral LOWER EXTREMITY. Impression dictated by: Zaid Mon MD,FACS,FSVS 10/01/2024 5:27 PM ASSESSMENT 1. Diabetes mellitus due to underlying condition with diabetic polyneuropathy, unspecified whether group home insulin use (HCC) 2. Foot ulcer, left, with fat layer exposed (HCC) 3. PVD (peripheral vascular disease) PLAN Reviewed DEREK PVRs Patient given prescription for pain medication to be taken postoperatively. Decision for surgery today and patient cleared from a podiatric/ medical standpoint for surgery and to proceed with surgery. Pt scheduled for a application of PuraPly wound graft to the left foot ulceration, a staged procedure Discussed with the patient the nature of condition and operative vs nonoperative care. The surgicalplans, risks, alternatives, benefits, post op complications and salvage determiner expectations were discussed including but not limited to: infection,bone infection,wound dehiscence hardware failure and irritation,wound dehiscence,delay union/mal union/non union of bone. RSDS,neuroma,duty limitations,DVT/PE, NH,nerve damage, scar, loss of sensation, swelling. Pt understands the proposed sx in detail and has agreed with proposed surgery. No guarantees were given or implied. Pt willingly consents to procedure and to have surgical procedure. Pt also understands risks including COVID-19 current risk in a surgical setting. Pt is a low acceptable risk for outpatient surgery from a podiatric/medical standpoint with an ASA of a 2. Ray Hays DPM, FACFAS H&P up to date and current (date) Date: October 03, 2024 Ray Hays DPM documented in this encounterOzarks Medical [id number] Telephone encounter Note* Telephone Encounter - Riki Velarde MA - 09/14/2024 9:26 AM EDT Patient called requesting a refill of oxycodone to be sent to [facility] in [place]. [facility] [id number] Miscellaneous Notes* Telephone Encounter - Riki Velarde MA - 09/14/2024 9:26 AM EDT Patient called requesting a refill of oxycodone to be sent to [facility] in [place]. documented in this [facility]06-13-2025 History of Present illness Narrative* Ray Hays DPM - 08/25/2024 2:20 PM EDT Patient: Ema Neff : 1965 PCP: Jarvis Thrasher MD SUBJECTIVE Pt present today for follow up of ulceration to left foot and 7 wks s/p EDSG Pt denies any n/f/v/c. Patient states that they have been applying ciarra to ulcer. Pt is a DM2. Pt presents today for follow up of staged procedure. She presents today for a biopsy of ulcer, a staged procedure. Patient has had ulcer greater than 2 years with multiple treatments by other providers in the past. Allergies: Allergies Allergen Reactions Keegan Inhibitors Cough Hydrocodone Other Reaction(s): Hallucinating Metformin Hcl GI intolerance Ozempic (0.25 Or 0.5 Mg-Dose) [Semaglutide(0.25 Or 0.5mg-Dos)] GI intolerance Pioglitazone Cough Prednisone Unknown Statins Other myalgia Other Reaction(s): Other: See Comments Past Medical History: Past Medical History: Diagnosis Date Allergic rhinitis Amputation of toe of right foot ([facility]) 08/20/2022 Balance disorder Chronic insomnia Chronic low back pain Chronic pansinusitis Claustrophobia ([facility]) Elevated hemoglobin ([facility]) 08/20/2022 Essential hypertension ([facility]) Fatty liver Gastroesophageal reflux disease without esophagitis 08/20/2022 GERD (gastroesophageal reflux disease) Gout Hammer toe High arches History of colon polyps History of CVA (cerebrovascular accident) Hyperlipidemia ([facility]) Leukocytosis Lumbar spinal stenosis Moderate major depression ([facility]) 08/20/2021 Morbid obesity ([facility]) Neuromuscular disorder ([facility]) RICK (obstructive sleep apnea) Osteoarthritis of lumbar spine PAOD (peripheral arterial occlusive disease) ([facility]) Peripheral neuropathy Postoperative hypothyroidism ([facility]) 09/17/2021 Santos splints Tobacco abuse Type 2 diabetes mellitus with diabetic nephropathy ([facility]) Vitamin D deficiency 11/25/2022 Medications: Current Outpatient Medications: albuterol HFA (Ventolin HFA) 90 mcg/act inhaler, Inhale 2 puffs every 4 (four) hours if needed for wheezing or shortness of breath, Disp: 8 g, Rfl: 3 amitriptyline (Elavil) 50 MG tablet, Take 1 tablet (50 mg) by mouth at bedtime, Disp: 90 tablet, Rfl: 3 ASPIRIN 81 MG chewable tablet, 1 (one) time each day at the same time., Disp: , Rfl: atorvastatin (Lipitor) 80 MG tablet, Take 1 tablet (80 mg) by mouth Daily, Disp: 90 tablet, Rfl: 1 cholecalciferol (Vitamin D-3) 25 MCG tablet, Take 25 mcg by mouth Daily, Disp: , Rfl: clopidogrel (Plavix) 75 MG tablet, Take 1 tablet (75 mg) by mouth Daily, Disp: 90 tablet, Rfl: 3 collagenase (Santyl) 250 UNIT/GM ointment, Apply 1 application topically Daily, Disp: 90 g, Rfl: 2 cyclobenzaprine (Flexeril) 10 MG tablet, Take 1 tablet (10 mg) by mouth as needed at bedtime for muscle spasms, Disp: 90 tablet, Rfl: 3 DULoxetine (Cymbalta) [address] capsule, Take 1 capsule (30 mg) by mouth Daily, Disp: 90 capsule, Rfl: 3 empagliflozin (Jardiance) 25 MG, Take 1 tablet (25 mg) by mouth Daily, Disp: 90 tablet, Rfl: 3 fluticasone (Flonase) 50 MCG/ACT nasal spray, INSTILL TWO SPRAYS IN EACH NOSTRIL DAILY NEEDED, Disp: 16 g, Rfl: 3 gabapentin (Neurontin) 800 MG tablet, Take 1 tablet (800 mg) by mouth in the morning and 1 tablet (800 mg) at noon and 1 tablet (800 mg) in the evening and 1 tablet (800 mg) before bedtime. Take before meals., Disp: 360 tablet, Rfl: 3 glimepiride (Amaryl) 4 MG tablet, Take 1 tablet (4 mg) by mouth in the morning and 1 tablet (4 mg) in the evening. Take with meals., Disp: 180 tablet, Rfl: 3 levothyroxine (Synthroid, Levoxyl) 150 MCG tablet, Take 1 tablet (150 mcg) by mouth in the morning.Take on an empty stomach.., Disp: 90 tablet, Rfl: 3 losartan (Cozaar) 50 MG tablet, Take 1 tablet (50 mg) by mouth Daily, Disp: 90 tablet, Rfl: 3 meclizine (Antivert) 25 MG tablet, Take 1 tablet (25 mg) by mouth 3 (three) times a day as needed for dizziness, Disp: 90 tablet, Rfl: 11 meloxicam (Mobic) 15 MG tablet, Take 1 tablet (15 mg) by mouth Daily, Disp: 90 tablet, Rfl: 3 metoprolol succinate XL (Toprol-XL) 50 MG 24 hr tablet, Take 1 tablet (50 mg) by mouth Daily, Disp:90 tablet, Rfl: 3 nystatin (Mycostatin) ointment, Apply topically every 12 (twelve) hours, Disp: 15 g, Rfl: 2 omeprazole (PriLOSEC) [address] capsule, Take 1 capsule (40 mg) by mouth in the morning. Take beforemeals. Do not crush or chew.., Disp: 90 capsule, Rfl: 3 ondansetron (Zofran) 8 MG tablet, TAKE ONE TABLET (8MG) BY MOUTH EVERY 8 HOURS NEEDED FOR NAUSEAOR VOMITING, Disp: 20 tablet, Rfl: 1 oxyCODONE (Roxicodone) 10 MG immediate release tablet, Take 1 tablet (10 mg) by mouth every 4 (four) hours if needed for severe pain, Disp: 180 tablet, Rfl: 0 triamcinolone (Kenalog) 0.5 % cream, , Disp: , Rfl: zolpidem (Ambien) 10 MG tablet, Take 1 tablet (10 mg) by mouth at bedtime, Disp: 90 tablet, Rfl: 1 Social History: Social History Socioeconomic History Marital status: Spouse name: Not on file Number of children: 3 Years of education: Not on file Highest education level: Not on file Occupational History Occupation: disabled Comment: unemployed Tobacco Use Smoking status: Former Current packs/day: 0.00 Average packs/day: 1 pack/day for 36.0 years (36.0 ttl pk-yrs) Types: Cigarettes Start date: 03/15/1985 Quit date: 03/15/2021 Years since quittin.4 Smokeless tobacco: Never Vaping Use Vaping status: Never Used Substance and Sexual Activity Alcohol use: Never Comment: caffeine: 2-3 cups per day coffee Drug use: Never Sexual activity: Yes Partners: Male control/protection: Post-menopausal Other Topics Concern Not on file Social History Narrative Living with: Boyfriend Social Drivers of Health Financial Resource Strain: Not on file Food Insecurity: Not on file Transportation Needs: Not on file Physical Activity: Not on file Stress: Not on file Social Connections: Not on file Intimate Partner Violence: Not on file Housing Stability: Not on file ROS: General: denies fever, chills, fatigue, malaise Gastrointestinal: denies abdominal pain, ulcers, or changes in appetite or bowel habits Musculoskeletal: positive history of back arthritis Cardiovascular: denies CP, palpitations, irregular rhythms. Positive history of stents to the rightleg in the past 6 months OBJECTIVE LE EXAM: DERM: negative hair growth to b/l feet with thin skin noted. left dorsum of prior amputation site graft intact with ulceration to subcutaneous tissue that measures 0.8m x 0.5cm x 0.2 cm with diminished fibrous slough and slight serous drainage with negative probe to bone VASC: non Palpable pedal pulsed b/l with warm to cool tibia to toes b/l NEURO: 5.07 [place] Jen monofilament test intact to digits and forefoot bilaterally 125Hz tuning fork diminished to 1st MPJ bilaterally ORTHO: +5/5 DF/PF/IN/EV right, +5/5 DF/PF/IN/EV left. 20 degrees inversion and 10 degrees eversion STJ b/l. Ankle ROM less than 10 degrees b/l. Positive pain on palpation to left foot ulcer XRAY: US: ASSESSMENT 1. Foot ulcer, left, with fat layer exposed (HCC) 2. Diabetes mellitus due to underlying condition with diabetic polyneuropathy, unspecified whether group home insulin use (HCC) PLAN Informed consent: Discussed the risks (permanent scarring, light or dark discoloration, infection, pain, bleeding, bruising, redness, blister formation, and recurrence of the lesion) and the benefitsof the procedure, as well as the alternatives. Informed consent was obtained. Anesthesia: 3 ml xylocaine 2 percent plain The area was prepared and draped in a standard fashion. The skin was then stretched perpendicular to the skin tension lines and the lesion removed using a 3 mm punch. Antibiotic ointment and a sterile dressing applied. The specimen was sent for pathologic examination. The patient tolerated the procedure well. The patient was instructed on post-op care. Todays procedure is a staged procedure and may need further procedures in the future. Continue with betadine and dsd daily. Today's procedure is a staged procedure and patient may need further procedures in the future. Ray Hays DPM documented in this encounterOzarks Medical [id number] Telephone encounter Note* Telephone Encounter - Willow Fernandez LPN - 08/17/2024 1:36 PM EDT Pt requesting a refill on Oxycodone to [facility] in [place] [facility] [id number] Miscellaneous Notes* Telephone Encounter - Willow Fernandez LPN - 08/17/2024 1:36 PM EDT Pt requesting a refill on Oxycodone to [facility] in [place] documented in this encounterOzarks Medical [id number] History of Present illness Narrative* Ray Hays DPM - 08/14/2024 3:10 PM EDT Patient: Ema Neff : 1965 PCP: Jarvis Thrasher MD SUBJECTIVE Pt present today for follow up of ulceration to left foot and 28 d s/p EDSG Pt denies any n/f/v/c. Patient states that they have been applying ciarra to ulcer. Pt is a DM2. Pt presents today for follow up of staged procedure. Patient has had ulcer greater than 2 years with multiple treatments by the provider Allergies: Allergies Allergen Reactions Keegan Inhibitors Cough Hydrocodone Other Reaction(s): Hallucinating Metformin Hcl GI intolerance Ozempic (0.25 Or 0.5 Mg-Dose) [Semaglutide(0.25 Or 0.5mg-Dos)] GI intolerance Pioglitazone Cough Prednisone Unknown Statins Other myalgia Other Reaction(s): Other: See Comments Past Medical History: Past Medical History: Diagnosis Date Allergic rhinitis Amputation of toe of right foot ([facility]/HCC) 08/20/2022 Balance disorder Chronic insomnia Chronic low back pain Chronic pansinusitis Claustrophobia (CMS/HCC) Elevated hemoglobin ([facility]/HCC) 08/20/2022 Essential hypertension (CMS/HCC) Fatty liver Gastroesophageal reflux disease without esophagitis 08/20/2022 GERD (gastroesophageal reflux disease) Gout Hammer toe High arches History of colon polyps History of CVA (cerebrovascular accident) Hyperlipidemia (CMS/HCC) Leukocytosis Lumbar spinal stenosis Moderate major depression (CMS/HCC) 08/20/2021 Morbid obesity (CMS/HCC) Neuromuscular disorder (CMS/HCC) RICK (obstructive sleep apnea) Osteoarthritis of lumbar spine PAOD (peripheral arterial occlusive disease) (CMS/HCC) Peripheral neuropathy Postoperative hypothyroidism (CMS/HCC) 09/17/2021 Santos splints Tobacco abuse Type 2 diabetes mellitus with diabetic nephropathy (CMS/HCC) Vitamin D deficiency 11/25/2022 Medications: Current Outpatient Medications: albuterol HFA (Ventolin HFA) 90 mcg/act inhaler, Inhale 2 puffs every 4 (four) hours if needed for wheezing or shortness of breath, Disp: 8 g, Rfl: 3 amitriptyline (Elavil) 50 MG tablet, Take 1 tablet (50 mg) by mouth at bedtime, Disp: 90 tablet, Rfl: 3 ASPIRIN 81 MG chewable tablet, 1 (one) time each day at the same time., Disp: , Rfl: atorvastatin (Lipitor) 80 MG tablet, Take 1 tablet (80 mg) by mouth Daily, Disp: 90 tablet, Rfl: 1 cholecalciferol (Vitamin D-3) 25 MCG tablet, Take 25 mcg by mouth Daily, Disp: , Rfl: clopidogrel (Plavix) 75 MG tablet, Take 1 tablet (75 mg) by mouth Daily, Disp: 90 tablet, Rfl: 3 collagenase (Santyl) 250 UNIT/GM ointment, Apply 1 application topically Daily, Disp: 90 g, Rfl: 2 cyclobenzaprine (Flexeril) 10 MG tablet, Take 1 tablet (10 mg) by mouth as needed at bedtime for muscle spasms, Disp: 90 tablet, Rfl: 3 DULoxetine (Cymbalta) [address] capsule, Take 1 capsule (30 mg) by mouth Daily, Disp: 90 capsule, Rfl: 3 empagliflozin (Jardiance) 25 MG, Take 1 tablet (25 mg) by mouth Daily, Disp: 90 tablet, Rfl: 3 fluticasone (Flonase) 50 MCG/ACT nasal spray, INSTILL TWO SPRAYS IN EACH NOSTRIL DAILY NEEDED, Disp: 16 g, Rfl: 3 gabapentin (Neurontin) 800 MG tablet, Take 1 tablet (800 mg) by mouth in the morning and 1 tablet (800 mg) at noon and 1 tablet (800 mg) in the evening and 1 tablet (800 mg) before bedtime. Take before meals., Disp: 360 tablet, Rfl: 3 glimepiride (Amaryl) 4 MG tablet, Take 1 tablet (4 mg) by mouth in the morning and 1 tablet (4 mg) in the evening. Take with meals., Disp: 180 tablet, Rfl: 3 levothyroxine (Synthroid, Levoxyl) 150 MCG tablet, Take 1 tablet (150 mcg) by mouth in the morning.Take on an empty stomach.., Disp: 90 tablet, Rfl: 3 losartan (Cozaar) 50 MG tablet, Take 1 tablet (50 mg) by mouth Daily, Disp: 90 tablet, Rfl: 3 meclizine (Antivert) 25 MG tablet, Take 1 tablet (25 mg) by mouth 3 (three) times a day as needed for dizziness, Disp: 90 tablet, Rfl: 11 meloxicam (Mobic) 15 MG tablet, Take 1 tablet (15 mg) by mouth Daily, Disp: 90 tablet, Rfl: 3 metoprolol succinate XL (Toprol-XL) 50 MG 24 hr tablet, Take 1 tablet (50 mg) by mouth Daily, Disp:90 tablet, Rfl: 3 nystatin (Mycostatin) ointment, Apply topically every 12 (twelve) hours, Disp: 15 g, Rfl: 2 omeprazole (PriLOSEC) [address] capsule, Take 1 capsule (40 mg) by mouth in the morning. Take beforemeals. Do not crush or chew.., Disp: 90 capsule, Rfl: 3 ondansetron (Zofran) 8 MG tablet, TAKE ONE TABLET (8MG) BY MOUTH EVERY 8 HOURS NEEDED FOR NAUSEAOR VOMITING, Disp: 20 tablet, Rfl: 1 oxyCODONE (Roxicodone) 10 MG immediate release tablet, Take 1 tablet (10 mg) by mouth every 4 (four) hours if needed for severe pain, Disp: 150 tablet, Rfl: 0 triamcinolone (Kenalog) 0.5 % cream, , Disp: , Rfl: zolpidem (Ambien) 10 MG tablet, Take 1 tablet (10 mg) by mouth at bedtime, Disp: 90 tablet, Rfl: 1 Social History: Social History Socioeconomic History Marital status: Spouse name: Not on file Number of children: 3 Years of education: Not on file Highest education level: Not on file Occupational History Occupation: disabled Comment: unemployed Tobacco Use Smoking status: Former Current packs/day: 0.00 Average packs/day: 1 pack/day for 36.0 years (36.0 ttl pk-yrs) Types: Cigarettes Start date: 03/15/1985 Quit date: 03/15/2021 Years since quittin.4 Smokeless tobacco: Never Vaping Use Vaping status: Never Used Substance and Sexual Activity Alcohol use: Never Comment: caffeine: 2-3 cups per day coffee Drug use: Never Sexual activity: Yes Partners: Male control/protection: Post-menopausal Other Topics Concern Not on file Social History Narrative Living with: Boyfriend Social Drivers of Health Financial Resource Strain: Not on file Food Insecurity: Not on file Transportation Needs: Not on file Physical Activity: Not on file Stress: Not on file Social Connections: Not on file Intimate Partner Violence: Not on file Housing Stability: Not on file ROS: General: denies fever, chills, fatigue, malaise Gastrointestinal: denies abdominal pain, ulcers, or changes in appetite or bowel habits Musculoskeletal: positive history of back arthritis Cardiovascular: denies CP, palpitations, irregular rhythms. Positive history of stents to the rightleg in the past 6 months OBJECTIVE LE EXAM: DERM: negative hair growth to b/l feet with thin skin noted. left dorsum of prior amputation site graft intact with ulceration to subcutaneous tissue that measures 0.8m x 0.5cm x 0.2 cm with diminished fibrous slough and slight serous drainage with negative probe to bone VASC: non Palpable pedal pulsed b/l with warm to cool tibia to toes b/l NEURO: 5.07 [place] Jen monofilament test intact to digits and forefoot bilaterally 125Hz tuning fork diminished to 1st MPJ bilaterally ORTHO: +5/5 DF/PF/IN/EV right, +5/5 DF/PF/IN/EV left. 20 degrees inversion and 10 degrees eversion STJ b/l. Ankle ROM less than 10 degrees b/l. Positive pain on palpation to left foot ulcer XRAY: US: ASSESSMENT 1. Diabetes mellitus due to underlying condition with diabetic polyneuropathy, unspecified whether group home insulin use ([facility]) 2. Foot ulcer, left, with fat layer exposed ([facility]) PLAN Sharp debridement with 15 blade of subcutaneous ulceration to left foot with active bleeding noted and removal and excision of fibrotic and necrotic tissue to wound and DSD applied with neosporin. Ptto continue with ciarra daily. daily. Today's procedure is a staged procedure and patient may need further procedures in the future. Patient follow up in 1 week for punch biopsy Ray Hays DPM documented in this encounterOzarks Medical [id number] History of Present illness Narrative* Ray Hays, LOVEM - 07/25/2024 1:00 PM EDT Patient: Ema Neff : 1965 PCP: Jarvis Thrasher MD SUBJECTIVE Pt present today for follow up of ulceration to left foot and 14 d s/p EDSG Pt denies any n/f/v/c. Patient states that they have been keeping dressing dry and intact Pt is a DM2. Pt presents today for follow up of staged procedure. Patient has had ulcer greater than 2 years with multiple treatments by the provider Allergies: Allergies Allergen Reactions Keegan Inhibitors Cough Hydrocodone Other Reaction(s): Hallucinating Metformin Hcl GI intolerance Ozempic (0.25 Or 0.5 Mg-Dose) [Semaglutide(0.25 Or 0.5mg-Dos)] GI intolerance Pioglitazone Cough Prednisone Unknown Statins Other myalgia Other Reaction(s): Other: See Comments Past Medical History: Past Medical History: Diagnosis Date Allergic rhinitis Amputation of toe of right foot ([facility]/HCC) 08/20/2022 Balance disorder Chronic insomnia Chronic low back pain Chronic pansinusitis Claustrophobia ([facility]) Elevated hemoglobin ([facility]) 08/20/2022 Essential hypertension ([facility]) Fatty liver Gastroesophageal reflux disease without esophagitis 08/20/2022 GERD (gastroesophageal reflux disease) Gout Hammer toe High arches History of colon polyps History of CVA (cerebrovascular accident) Hyperlipidemia ([facility]) Leukocytosis Lumbar spinal stenosis Moderate major depression ([facility]/HCC) 08/20/2021 Morbid obesity ([facility]) Neuromuscular disorder ([facility]/HCC) RICK (obstructive sleep apnea) Osteoarthritis of lumbar spine PAOD (peripheral arterial occlusive disease) ([facility]) Peripheral neuropathy Postoperative hypothyroidism ([facility]) 09/17/2021 Santos splints Tobacco abuse Type 2 diabetes mellitus with diabetic nephropathy ([facility]) Vitamin D deficiency 11/25/2022 Medications: Current Outpatient Medications: albuterol HFA (Ventolin HFA) 90 mcg/act inhaler, Inhale 2 puffs every 4 (four) hours if needed for wheezing or shortness of breath, Disp: 8 g, Rfl: 3 amitriptyline (Elavil) 50 MG tablet, Take 1 tablet (50 mg) by mouth at bedtime, Disp: 90 tablet, Rfl: 3 ASPIRIN 81 MG chewable tablet, 1 (one) time each day at the same time., Disp: , Rfl: atorvastatin (Lipitor) 80 MG tablet, Take 1 tablet (80 mg) by mouth Daily, Disp: 90 tablet, Rfl: 1 cholecalciferol (Vitamin D-3) 25 MCG tablet, Take 25 mcg by mouth Daily, Disp: , Rfl: clopidogrel (Plavix) 75 MG tablet, Take 1 tablet (75 mg) by mouth Daily, Disp: 90 tablet, Rfl: 3 collagenase (Santyl) 250 UNIT/GM ointment, Apply 1 application topically Daily, Disp: 90 g, Rfl: 2 cyclobenzaprine (Flexeril) 10 MG tablet, Take 1 tablet (10 mg) by mouth as needed at bedtime for muscle spasms, Disp: 90 tablet, Rfl: 3 DULoxetine (Cymbalta) [address] capsule, Take 1 capsule (30 mg) by mouth Daily, Disp: 90 capsule, Rfl: 3 empagliflozin (Jardiance) 25 MG, Take 1 tablet (25 mg) by mouth Daily, Disp: 90 tablet, Rfl: 3 fluticasone (Flonase) 50 MCG/ACT nasal spray, Administer 2 sprays into each nostril Daily as neededfor rhinitis Shake gently. Before first use, prime pump. After use, clean tip and replace cap., Disp: 16 g, Rfl: 3 gabapentin (Neurontin) 800 MG tablet, Take 1 tablet (800 mg) by mouth in the morning and 1 tablet (800 mg) at noon and 1 tablet (800 mg) in the evening and 1 tablet (800 mg) before bedtime. Take before meals., Disp: 360 tablet, Rfl: 3 glimepiride (Amaryl) 4 MG tablet, TAKE ONE TABLET BY MOUTH DAILY AT 9AM, Disp: 90 tablet, Rfl: 2 levothyroxine (Synthroid, Levoxyl) 150 MCG tablet, Take 1 tablet (150 mcg) by mouth in the morning.Take on an empty stomach.., Disp: 90 tablet, Rfl: 3 losartan (Cozaar) 50 MG tablet, Take 1 tablet (50 mg) by mouth Daily, Disp: 90 tablet, Rfl: 3 meclizine (Antivert) 25 MG tablet, Take 1 tablet (25 mg) by mouth 3 (three) times a day as needed for dizziness, Disp: 90 tablet, Rfl: 11 meloxicam (Mobic) 15 MG tablet, Take 1 tablet (15 mg) by mouth Daily, Disp: 90 tablet, Rfl: 3 metoprolol succinate XL (Toprol-XL) 50 MG 24 hr tablet, Take 1 tablet (50 mg) by mouth Daily, Disp:90 tablet, Rfl: 3 nystatin (Mycostatin) ointment, Apply topically every 12 (twelve) hours, Disp: 15 g, Rfl: 2 omeprazole (PriLOSEC) [address] capsule, Take 1 capsule (40 mg) by mouth in the morning. Take beforemeals. Do not crush or chew.., Disp: 90 capsule, Rfl: 3 ondansetron (Zofran) 8 MG tablet, Take 1 tablet (8 mg) by mouth every 8 (eight) hours if needed fornausea or vomiting, Disp: 20 tablet, Rfl: 1 oxyCODONE (Roxicodone) 10 MG immediate release tablet, Take 1 tablet (10 mg) by mouth every 4 (four) hours if needed for severe pain, Disp: 150 tablet, Rfl: 0 triamcinolone (Kenalog) 0.5 % cream, , Disp: , Rfl: zolpidem (Ambien) 10 MG tablet, TAKE 1 TABLET BY MOUTH AT BEDTIME NEEDED, Disp: 30 tablet, Rfl: 5 Social History: Social History Socioeconomic History Marital status: Spouse name: Not on file Number of children: 3 Years of education: Not on file Highest education level: Not on file Occupational History Occupation: disabled Comment: unemployed Tobacco Use Smoking status: Former Current packs/day: 0.00 Average packs/day: 1 pack/day for 36.0 years (36.0 ttl pk-yrs) Types: Cigarettes Start date: 03/15/1985 Quit date: 03/15/2021 Years since quittin.3 Smokeless tobacco: Never Vaping Use Vaping status: Never Used Substance and Sexual Activity Alcohol use: Never Comment: caffeine: 2-3 cups per day coffee Drug use: Never Sexual activity: Yes Partners: Male control/protection: Post-menopausal Other Topics Concern Not on file Social History Narrative Living with: Boyfriend Social Drivers of Health Financial Resource Strain: Not on file Food Insecurity: Not on file Transportation Needs: Not on file Physical Activity: Not on file Stress: Not on file Social Connections: Not on file Intimate Partner Violence: Not on file Housing Stability: Not on file ROS: General: denies fever, chills, fatigue, malaise Gastrointestinal: denies abdominal pain, ulcers, or changes in appetite or bowel habits Musculoskeletal: positive history of back arthritis Cardiovascular: denies CP, palpitations, irregular rhythms. Positive history of stents to the rightleg in the past 6 months OBJECTIVE LE EXAM: DERM: negative hair growth to b/l feet with thin skin noted. left dorsum of prior amputation site graft intact with ulceration to subcutaneous tissue that measures 1.2cm x 0.5cm x 0.2 cm with diminished fibrous slough and slight serous drainage with negative probe to bone VASC: non Palpable pedal pulsed b/l with warm to cool tibia to toes b/l NEURO: 5.07 [place] Jen monofilament test intact to digits and forefoot bilaterally 125Hz tuning fork diminished to 1st MPJ bilaterally ORTHO: +5/5 DF/PF/IN/EV right, +5/5 DF/PF/IN/EV left. 20 degrees inversion and 10 degrees eversion STJ b/l. Ankle ROM less than 10 degrees b/l. Positive pain on palpation to left foot ulcer XRAY: US: ASSESSMENT 1. Diabetes mellitus due to underlying condition with diabetic polyneuropathy, unspecified whether salvage determiner insulin use ([facility]) 2. Foot ulcer, left, with fat layer exposed ([facility]) PLAN Dry sterile dressing applied today and patient to continue with Ciarra to the wound and follow up in 1 week and may apply Ciarra daily Ray Hays DPM documented in this encounterOzarks Medical [id number] Telephone encounter Note* Telephone Encounter - Willow Fernandez LPN - 07/24/2024 9:33 AM EDT Pt requesting a refill on Oxycodone to [facility] [place] [facility] [id number] Miscellaneous Notes* Telephone Encounter - Willow Fernandez LPN - 07/24/2024 9:33 AM EDT Pt requesting a refill on Oxycodone to [facility] in [place] documented in this encounterOzarks Medical [id number] History of Present illness Narrative* Jarvis Thrasher MD - 07/11/2024 3:00 PM EDT Images from the original note were not included. Ema Neff is a 59 y.o. female presents with chief complaint of 3 Month Follow-up of Chronic Conditions (At last OV Amaryl was increased to 8 mg every day, added Jardiance and increased Lipitor to 80 mg every day. ) HPI: History of Present Illness Patient presents today for follow up of chronic medical problems. Diabetes Management A decrease in A1c levels is reported, attributed to the recent increase in glimepiride dosage and the addition of Jardiance to the treatment regimen. The current A1c is 9.4, down from 10.2. No adverse effects from Jardiance, such as yeast infections, have been experienced. However, elevated blood sugar levels lead to itching during urination, which is managed with nystatin cream. She is currentlyon the lowest dose of Jardiance at 10 mg. A previous trial of Ozempic was discontinued due to persistent nausea and abdominal discomfort. Intermittent nausea and vomiting bile are still experienced, necessitating the use of Zofran on certain days. - Onset: Recent increase in glimepiride dosage and addition of Jardiance. - Duration: Persistent nausea and abdominal discomfort with Ozempic; intermittent nausea and vomiting bile. - Character: Elevated blood sugar levels lead to itching during urination; intermittent nausea and vomiting bile. - Alleviating/Aggravating Factors: Managed with nystatin cream; Zofran used for nausea and vomiting. - Severity: Current A1c is 9.4, down from 10.2. Pain Management The patient is on a regimen of oxycodone, taking two tablets in the morning, two in the afternoon, and two in the evening, totaling six tablets per day. A letter from her insurance company indicated that a refill could be obtained every 25 days instead of every 30 days due to her dosage. The five-tablet daily regimen was insufficient, particularly the afternoon dose, which did not provide relief until later in the evening. Medication takes longer to take effect. Consideration is being given to reducing the afternoon dose until the new refill is received. Gabapentin is also being taken, which is helpful but causes unsteadiness while walking, requiring support when going to the bathroom. - Onset: Ongoing pain management with oxycodone and gabapentin. - Duration: Insufficient relief with five-tablet daily regimen; unsteadiness while walking due to gabapentin. - Character: Pain managed with oxycodone; unsteadiness while walking due to gabapentin. - Alleviating/Aggravating Factors: Oxycodone dosage adjustment; gabapentin causes unsteadiness. - Timing: Medication takes longer to take effect; consideration of reducing afternoon dose until new refill is received. - Severity: Requires support when going to the bathroom due to unsteadiness. I have reviewed and reconciled the history and medication list with the patient today. HISTORIES: PAST MEDICAL HISTORY: Past Medical History: Diagnosis Date Allergic rhinitis Amputation of toe of right foot ([facility]) 08/20/2022 Balance disorder Chronic insomnia Chronic low back pain Chronic pansinusitis Claustrophobia ([facility]) Elevated hemoglobin ([facility]) 08/20/2022 Essential hypertension ([facility]) Fatty liver Gastroesophageal reflux disease without esophagitis 08/20/2022 GERD (gastroesophageal reflux disease) Gout Hammer toe High arches History of colon polyps History of CVA (cerebrovascular accident) Hyperlipidemia ([facility]) Leukocytosis Lumbar spinal stenosis Moderate major depression ([facility]) 08/20/2021 Morbid obesity ([facility]) Neuromuscular disorder ([facility]) RICK (obstructive sleep apnea) Osteoarthritis of lumbar spine PAOD (peripheral arterial occlusive disease) ([facility]) Peripheral neuropathy Postoperative hypothyroidism ([facility]) 09/17/2021 Santos splints Tobacco abuse Type 2 diabetes mellitus with diabetic nephropathy ([facility]) Vitamin D deficiency 11/25/2022 SURGICAL HISTORY: Past Surgical History: Procedure Laterality Date AMPUTATION AMPUTATION OF REPLICATED TOES Bilateral 10/07/2021 toe 2 ANGIOPLASTY Left 07/2021 Left posterior tibial artery angioplasty, left dorsalis pedis angioplasty, pedal arch reconstruction ARTERIAL BYPASS SURGERY CATARACT EXTRACTION CATARACT EXTRACTION 2020 CHOLECYSTECTOMY 1998 COLONOSCOPY 2013 ENDOMETRIAL ABLATION OTHER SURGICAL HISTORY 12/22/2021 Multiplter laminar epidural injections OTHER SURGICAL HISTORY Left 10/13/2021 L leg anterior tibial to peroneal artery bypass OTHER SURGICAL HISTORY 07/10/2022 ulceration of surgical amputation of 2nd toe POLYPECTOMY PRESSURE ULCER DEBRIDEMENT Bilateral 12/22/2021 foot ulcer SKIN GRAFT 07/11/2024 Epidermal skin graft harvest with the Epitech skin graft harvesting TOE AMPUTATION Left 10/07/2021 LT toe 2 TONSILLECTOMY 1968 TOTAL THYROIDECTOMY 07/2021 TUBAL LIGATION Bilateral 1988 WOUND DEBRIDEMENT Left 11/09/2021 leg WOUND DEBRIDEMENT 02/19/2023 amputation site, gangrenous tissue left 3rd toe SOCIAL HISTORY: Social History Tobacco Use Smoking status: Former Current packs/day: 0.00 Average packs/day: 1 pack/day for 36.0 years (36.0 ttl pk-yrs) Types: Cigarettes Start date: 03/15/1985 Quit date: 03/15/2021 Years since quittin.3 Smokeless tobacco: Never Vaping Use Vaping status: Never Used Substance Use Topics Alcohol use: Never Comment: caffeine: 2-3 cups per day coffee Drug use: Never Depression: Not at risk (01/05/2024) PHQ-2 PHQ-2 Score: 0 FAMILY HISTORY: Family History Problem Relation Name Age of Onset Pulmonary embolism Mother Pulmonary blood clot Clotting disorder Mother Pulmonary blood clot Hypertension Father Bladder/ diabetes Cancer Father Bladder/ diabetes Diabetes Father Bladder/ diabetes No Known Problems Sister No Known Problems Brother MEDICATIONS: Current Outpatient Medications Medication Instructions albuterol HFA (Ventolin HFA) 90 mcg/act inhaler 2 puffs, Inhalation, Every 4 hours PRN amitriptyline (ELAVIL) 50 mg, Oral, Nightly ASPIRIN 81 MG chewable tablet Every 24 hours atorvastatin (LIPITOR) 80 mg, Oral, Daily cholecalciferol (VITAMIN D-3) 25 mcg, Daily clopidogrel (PLAVIX) 75 mg, Oral, Daily collagenase (Santyl) 250 UNIT/GM ointment 1 application , Topical, Daily cyclobenzaprine (FLEXERIL) 10 mg, Oral, Nightly PRN DULoxetine (CYMBALTA) 30 mg, Oral, Daily empagliflozin (JARDIANCE) 10 mg, Oral, Daily fluticasone (Flonase) 50 MCG/ACT nasal spray 2 sprays, Each Nostril, Daily PRN, Shake gently. Before first use, prime pump. After use, clean tip and replace cap. gabapentin (NEURONTIN) 800 mg, Oral, 4 times daily before meals and nightly glimepiride (Amaryl) 4 MG tablet TAKE ONE TABLET BY MOUTH DAILY AT 9AM levothyroxine (SYNTHROID, LEVOXYL) 150 mcg, Oral, Every morning, Take on an empty stomach. losartan (COZAAR) 50 mg, Oral, Daily meclizine (ANTIVERT) 25 mg, Oral, 3 times daily PRN meloxicam (MOBIC) 15 mg, Oral, Daily metoprolol succinate XL (TOPROL-XL) 50 mg, Oral, Daily nystatin (Mycostatin) ointment Topical, Every 12 hours omeprazole (PRILOSEC) 40 mg, Oral, Daily before breakfast, Do not crush or chew. ondansetron (ZOFRAN) 8 mg, Oral, Every 8 hours PRN oxyCODONE (ROXICODONE) 10 mg, Oral, Every 4 hours PRN triamcinolone (Kenalog) 0.5 % cream zolpidem (AMBIEN) 10 mg, Oral, Nightly PRN ALLERGIES: Allergies Allergen Reactions Keegan Inhibitors Cough Hydrocodone Other Reaction(s): Hallucinating Metformin Hcl GI intolerance Ozempic (0.25 Or 0.5 Mg-Dose) [Semaglutide(0.25 Or 0.5mg-Dos)] GI intolerance Pioglitazone Cough Prednisone Unknown Statins Other myalgia Other Reaction(s): Other: See Comments PHYSICAL EXAM: Visit Vitals BP 126/78 (BP Location: Left arm, Patient Position: Sitting) Ht 5' 5 Wt 250 lb SpO2 98% BMI 41.60 kg/m Smoking Status Former BSA 2.28 m BP Readings from Last 3 Encounters: 07/11/24 126/78 05/29/24 114/64 04/12/24 112/60 Wt Readings from Last 3 Encounters: 07/11/24 250 lb 07/11/24 259 lb 07/07/24 259 lb Physical Exam Vitals reviewed. Constitutional: General: She is not in acute distress. Appearance: Normal appearance. Neck: Vascular: No carotid bruit. Cardiovascular: Rate and Rhythm: Normal rate and regular rhythm. Heart sounds: No murmur heard. No friction rub. Pulmonary: Breath sounds: Normal breath sounds. No wheezing or rhonchi. Musculoskeletal: Cervical back: Neck supple. Right lower leg: No edema. Left lower leg: No edema. Lymphadenopathy: Cervical: No cervical adenopathy. Skin: General: Skin is warm and dry. Neurological: Mental Status: She is alert. Results - Laboratory Studies: - A1c: 9.4 ASSESSMENT AND PLAN: Assessment & Plan 1. Type 2 diabetes mellitus with diabetic polyneuropathy, without long-term current use of insulin (CMS/HCC) (Primary) - A1c level improved from 10.2 to 9.4. - Increase Jardiance dosage from 10 mg to 25 mg. - Monitor for adverse effects such as yeast infections or severe rashes in the groin area and report any occurrences promptly. - Maintain a balanced diet. - POCT glycosylated hemoglobin (Hb A1C) docked device - CBC and differential; Future - Comprehensive metabolic panel; Future - Hemoglobin a1c with eag; Future - CBC and differential - Comprehensive metabolic panel - Hemoglobin a1c with eag - empagliflozin (Jardiance) 25 MG; Take 1 tablet (25 mg) by mouth Daily Dispense: 90 tablet; Refill: 3 2. Essential hypertension (CMS/HCC) Blood pressure doing well. Continue lifestyle modifications to include minimizing salt and alcohol,exercising regularly, and keeping weight down. Continue current medications. 3. Polyneuropathy associated with underlying disease (CMS/HCC) - Pain is worse and current opioid dosage not working as well. She has been on this for quite a long time. - Increase oxycodone dosage to 6 tablets per day. - Inform provider 3 days prior to the 25th day of the current prescription for a new prescription with the increased dosage. - Pharmacy should fill the prescription early due to the dosage change. 4. Atherosclerosis of [place] arteries of extremities with rest pain, bilateral legs (CMS/HCC) Doing well. Continue aggressive risk factor modification. 5. History of stroke without residual deficits Doing well. Continue aggressive risk factor modification. 6. Metabolic dysfunction-associated steatotic liver disease (MASLD) Stable. Continue to monitor. 7. Chronic insomnia Doing well. Continue current regimen. 8. Thyroid nodule (CMS/HCC) Stable. Continue to monitor. 9. 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 (CMS/HCC) Stable. Follows with Dr. Hays. documented in this encounterOzarks Medical [id number] History of Present illness Narrative* Ray Hays, [place]OV[place] - 07/11/2024 1:00 PM EDT Patient: Ema Neff : 1965 PCP: Jarvis Thrasher MD SUBJECTIVE Pt present today for follow up of ulceration to left foot. Pt denies any n/f/v/c. Patient states that they have been using the following treatments for the ulcer of calcium alginate Pt is a DM2. Pt presents today for staged procedure of application of epidermal skin graft to the left foot ulceration, a staged procedure Patient has had ulcer greater than 2 years with multiple treatments by the provider Allergies: Allergies Allergen Reactions Prednisone Unknown Keegan Inhibitors Cough Hydrocodone Other Reaction(s): Hallucinating Metformin Hcl GI intolerance Ozempic (0.25 Or 0.5 Mg-Dose) [Semaglutide(0.25 Or 0.5mg-Dos)] GI intolerance Pioglitazone Cough Statins Other myalgia Other Reaction(s): Other: See Comments Past Medical History: Past Medical History: Diagnosis Date Allergic rhinitis Amputation of toe of right foot ([facility]) 08/20/2022 Balance disorder Chronic insomnia Chronic low back pain Chronic pansinusitis Claustrophobia ([facility]) Elevated hemoglobin ([facility]) 08/20/2022 Essential hypertension ([facility]) Fatty liver Gastroesophageal reflux disease without esophagitis 08/20/2022 GERD (gastroesophageal reflux disease) Gout Hammer toe High arches History of colon polyps History of CVA (cerebrovascular accident) Hyperlipidemia ([facility]) Leukocytosis Lumbar spinal stenosis Moderate major depression ([facility]) 08/20/2021 Morbid obesity ([facility] [facility]rom[facility] RICK (obstructive sleep apnea) Osteoarthritis of lumbar spine PAOD (peripheral arterial occlusive disease) ([facility]) Peripheral neuropathy Postoperative hypothyroidism ([facility]) 09/17/2021 Santos splints Tobacco abuse Type 2 diabetes mellitus with diabetic nephropathy ([facility]) Vitamin D deficiency 11/25/2022 Medications: Current Outpatient Medications: albuterol HFA (Ventolin HFA) 90 mcg/act inhaler, Inhale 2 puffs every 4 (four) hours if needed for wheezing or shortness of breath, Disp: 8 g, Rfl: 3 amitriptyline (Elavil) 50 MG tablet, Take 1 tablet (50 mg) by mouth at bedtime, Disp: 90 tablet, Rfl: 3 ASPIRIN 81 MG chewable tablet, 1 (one) time each day at the same time., Disp: , Rfl: atorvastatin (Lipitor) 80 MG tablet, Take 1 tablet (80 mg) by mouth Daily, Disp: 90 tablet, Rfl: 1 cholecalciferol (Vitamin D-3) 25 MCG tablet, Take 25 mcg by mouth Daily, Disp: , Rfl: clopidogrel (Plavix) 75 MG tablet, Take 1 tablet (75 mg) by mouth Daily, Disp: 90 tablet, Rfl: 3 collagenase (Santyl) 250 UNIT/GM ointment, Apply 1 application topically Daily, Disp: 90 g, Rfl: 2 cyclobenzaprine (Flexeril) 10 MG tablet, Take 1 tablet (10 mg) by mouth as needed at bedtime for muscle spasms, Disp: 90 tablet, Rfl: 3 DULoxetine (Cymbalta) [address] capsule, Take 1 capsule (30 mg) by mouth Daily, Disp: 90 capsule, Rfl: 3 empagliflozin (Jardiance) 10 MG, Take 1 tablet (10 mg) by mouth Daily, Disp: 30 tablet, Rfl: 5 fluticasone (Flonase) 50 MCG/ACT nasal spray, Administer 2 sprays into each nostril Daily as neededfor rhinitis Shake gently. Before first use, prime pump. After use, clean tip and replace cap., Disp: 16 g, Rfl: 3 gabapentin (Neurontin) 800 MG tablet, Take 1 tablet (800 mg) by mouth in the morning and 1 tablet (800 mg) at noon and 1 tablet (800 mg) in the evening and 1 tablet (800 mg) before bedtime. Take before meals., Disp: 360 tablet, Rfl: 3 glimepiride (Amaryl) 4 MG tablet, TAKE ONE TABLET BY MOUTH DAILY AT 9AM, Disp: 90 tablet, Rfl: 2 levothyroxine (Synthroid, Levoxyl) 150 MCG tablet, Take 1 tablet (150 mcg) by mouth in the morning.Take on an empty stomach.., Disp: 90 tablet, Rfl: 3 losartan (Cozaar) 50 MG tablet, Take 1 tablet (50 mg) by mouth Daily, Disp: 90 tablet, Rfl: 3 meclizine (Antivert) 25 MG tablet, Take 1 tablet (25 mg) by mouth 1 (one) time each day at the sametime, Disp: 90 tablet, Rfl: 3 meclizine (Antivert) 25 MG tablet, Take 1 tablet (25 mg) by mouth 3 (three) times a day as needed for dizziness, Disp: 90 tablet, Rfl: 11 meloxicam (Mobic) 15 MG tablet, Take 1 tablet (15 mg) by mouth Daily, Disp: 90 tablet, Rfl: 3 metoprolol succinate XL (Toprol-XL) 50 MG 24 hr tablet, Take 1 tablet (50 mg) by mouth Daily, Disp:90 tablet, Rfl: 3 nystatin (Mycostatin) ointment, Apply topically every 12 (twelve) hours, Disp: 15 g, Rfl: 2 omeprazole (PriLOSEC) [address] capsule, Take 1 capsule (40 mg) by mouth in the morning. Take beforemeals. Do not crush or chew.., Disp: 90 capsule, Rfl: 3 ondansetron (Zofran) 8 MG tablet, Take 1 tablet (8 mg) by mouth every 8 (eight) hours if needed fornausea or vomiting, Disp: 20 tablet, Rfl: 1 oxyCODONE (Roxicodone) 10 MG immediate release tablet, Take 1 tablet (10 mg) by mouth every 4 (four) hours if needed for severe pain, Disp: 150 tablet, Rfl: 0 triamcinolone (Kenalog) 0.5 % cream, , Disp: , Rfl: zolpidem (Ambien) 10 MG tablet, TAKE 1 TABLET BY MOUTH AT BEDTIME NEEDED, Disp: 30 tablet, Rfl: 5 Social History: Social History Socioeconomic History Marital status: Spouse name: Not on file Number of children: 3 Years of education: Not on file Highest education level: Not on file Occupational History Occupation: disabled Comment: unemployed Tobacco Use Smoking status: Former Current packs/day: 0.00 Average packs/day: 1 pack/day for 36.0 years (36.0 ttl pk-yrs) Types: Cigarettes Start date: 03/15/1985 Quit date: 03/15/2021 Years since quittin.3 Smokeless tobacco: Never Vaping Use Vaping status: Never Used Substance and Sexual Activity Alcohol use: Never Comment: caffeine: 2-3 cups per day coffee Drug use: Never Sexual activity: Yes Partners: Male control/protection: Post-menopausal Other Topics Concern Not on file Social History Narrative Living with: Boyfriend Social Drivers of Health Financial Resource Strain: Not on file Food Insecurity: Not on file Transportation Needs: Not on file Physical Activity: Not on file Stress: Not on file Social Connections: Not on file Intimate Partner Violence: Not on file Housing Stability: Not on file ROS: General: denies fever, chills, fatigue, malaise Gastrointestinal: denies abdominal pain, ulcers, or changes in appetite or bowel habits Musculoskeletal: positive history of back arthritis Cardiovascular: denies CP, palpitations, irregular rhythms. Positive history of stents to the rightleg in the past 6 months OBJECTIVE LE EXAM: DERM: negative hair growth to b/l feet with thin skin noted. left dorsum of prior amputation site ulceration to subcutaneous tissue that measures 1.4cm x 0.5cm x 0.2 cm with diminished fibrous sloughand moderate serous drainage with negative probe to bone VASC: non Palpable pedal pulsed b/l with warm to cool tibia to toes b/l NEURO: 5.07 [place] Jen monofilament test intact to digits and forefoot bilaterally 125Hz tuning fork diminished to 1st MPJ bilaterally ORTHO: +5/5 DF/PF/IN/EV right, +5/5 DF/PF/IN/EV left. 20 degrees inversion and 10 degrees eversion STJ b/l. Ankle ROM less than 10 degrees b/l. Positive pain on palpation to left foot ulcer XRAY: US: ASSESSMENT 1. Diabetes mellitus due to underlying condition with diabetic polyneuropathy, unspecified whether salvage determiner insulin use ([facility]) 2. Foot ulcer, left, with fat layer exposed ([facility]) PLAN Date of Procedure: July 11, 2024 Surgeon: Ray Hays DPM Anesthesia: None Preoperative Diagnosis: left foot ulcer to subcutaneous tissue depth with type 2 diabetes Postoperative Diagnosis: Same as above Procedure: 1) Preparation of the left foot ulceration for an Epidermal skin graft 2) Epidermal skin graft harvest with the Epitech skin graft harvesting system from the left thigh donor site with application to the left foot ulcer recipient site, a staged procedure Indications: The patient has a non-healing ulceration to the left foot. Conservative management has failed and an epidermal skin graft was recommended to enhance wound healing. Risks,benefits, and alternatives were discussed with the patient and informed consent was obtained. Procedure: The patient was positioned in the supine position and the left thigh donor site and the left foot recipient site was prepped and draped in the usual sterile manner. The epitech Epidermal skin graft harvester was then placed on the thigh and activated for a total of 30 minutes with notable epidermal blistering. Care was taken To ensure appropriate depth to preserve the dermal layer for optimal healing. The grafts were harvested with a 15 blade and transferred to the sterile field for preparation. At this time, the left foot ulceration recipient site was thoroughly prepared with a 15 blade for the graft. All fibrotic and necrotic tissue was carefully dissected From the site down to healthy viable bleeding tissue. The wound edges were then skived in preparation for the epidermal skin graft to ensure optimal Healing. The ulcer site measurements were 1.5cm x 0.6cm x 0.2cm to subcutaneous tissue depth. The site was then irrigated with sterile saline and hemostasis was achieved with gentle pressure tothe site. Next, the epidermal skin graft was meticulously placed onto the wound bed, ensuring proper orientation and adherence. A non-adherent dressing was applied over the graft with steri-strips and a bolster dressing consisting of 4x4 gauze, Kerlix, and Coban were applied. The donor site was noted to have minimal to no bleeding and a dressing of a 2x2 gauze and Tegaderm dressing was applied to the thigh. Today's procedure is a staged procedure and patient may need further procedures in the future. Postoperative Plan: The Patient was instructed to keep the dressing to the graft site dry and intact until the next office visit with minimal weight bearing to the post operative site. It was recommend that the dressing to the thigh donor site stay intact over the next 24 hours and then may removed Patient may use neosporin with dry sterile dressing over the next week until the next postoperativevisit. Patient was instructed to take Nsaids if needed for pain and to contact podiatry if any issues. Ray Hays DPM documented in this encounterOzarks Medical [id number] History of Present illness Narrative* Ray Hays DPM - 07/07/2024 2:20 PM EDT Patient: Ema Neff : 1965 PCP: Jarvis Thrasher MD SUBJECTIVE Pt present today for follow up of ulceration to left foot. Pt denies any n/f/v/c. Patient states that they have been using the following treatments for the ulcer of calcium alginate Pt is a DM2. Pt presents today for staged procedure preparation for epidermal skin graft early next week to leftfoot Patient has had ulcer greater than 2 years with multiple treatments by the provider Allergies: Allergies Allergen Reactions Prednisone Unknown Keegan Inhibitors Cough Hydrocodone Other Reaction(s): Hallucinating Metformin Hcl GI intolerance Ozempic (0.25 Or 0.5 Mg-Dose) [Semaglutide(0.25 Or 0.5mg-Dos)] GI intolerance Pioglitazone Cough Statins Other myalgia Other Reaction(s): Other: See Comments Past Medical History: Past Medical History: Diagnosis Date Allergic rhinitis Amputation of toe of right foot ([facility]) 08/20/2022 Balance disorder Chronic insomnia Chronic low back pain Chronic pansinusitis Claustrophobia ([facility] Elevated hemoglobin ([facility]) 08/20/2022 Essential hypertension ([facility]) Fatty liver Gastroesophageal reflux disease without esophagitis 08/20/2022 GERD (gastroesophageal reflux disease) Gout Hammer toe High arches History of colon polyps History of CVA (cerebrovascular accident) Hyperlipidemia ([facility]) Leukocytosis Lumbar spinal stenosis Moderate major depression ([facility]) 08/20/2021 Morbid obesity ([facility] Neuromuscular disorder ([facility]) RICK (obstructive sleep apnea) Osteoarthritis of lumbar spine PAOD (peripheral arterial occlusive disease) ([facility]) Peripheral neuropathy Postoperative hypothyroidism ([facility]) 09/17/2021 Santos splints Tobacco abuse Type 2 diabetes mellitus with diabetic nephropathy ([facility]) Vitamin D deficiency 11/25/2022 Medications: Current Outpatient Medications: albuterol HFA (Ventolin HFA) 90 mcg/act inhaler, Inhale 2 puffs every 4 (four) hours if needed for wheezing or shortness of breath, Disp: 8 g, Rfl: 3 amitriptyline (Elavil) 50 MG tablet, Take 1 tablet (50 mg) by mouth at bedtime, Disp: 90 tablet, Rfl: 3 ASPIRIN 81 MG chewable tablet, 1 (one) time each day at the same time., Disp: , Rfl: atorvastatin (Lipitor) 80 MG tablet, Take 1 tablet (80 mg) by mouth Daily, Disp: 90 tablet, Rfl: 1 cholecalciferol (Vitamin D-3) 25 MCG tablet, Take 25 mcg by mouth Daily, Disp: , Rfl: clopidogrel (Plavix) 75 MG tablet, Take 1 tablet (75 mg) by mouth Daily, Disp: 90 tablet, Rfl: 3 collagenase (Santyl) 250 UNIT/GM ointment, Apply 1 application topically Daily, Disp: 90 g, Rfl: 2 cyclobenzaprine (Flexeril) 10 MG tablet, Take 1 tablet (10 mg) by mouth as needed at bedtime for muscle spasms, Disp: 90 tablet, Rfl: 3 DULoxetine (Cymbalta) [address] capsule, Take 1 capsule (30 mg) by mouth Daily, Disp: 90 capsule, Rfl: 3 empagliflozin (Jardiance) 10 MG, Take 1 tablet (10 mg) by mouth Daily, Disp: 30 tablet, Rfl: 5 fluticasone (Flonase) 50 MCG/ACT nasal spray, Administer 2 sprays into each nostril Daily as neededfor rhinitis Shake gently. Before first use, prime pump. After use, clean tip and replace cap., Disp: 16 g, Rfl: 3 gabapentin (Neurontin) 800 MG tablet, Take 1 tablet (800 mg) by mouth in the morning and 1 tablet (800 mg) at noon and 1 tablet (800 mg) in the evening and 1 tablet (800 mg) before bedtime. Take before meals., Disp: 360 tablet, Rfl: 3 glimepiride (Amaryl) 4 MG tablet, TAKE ONE TABLET BY MOUTH DAILY AT 9AM, Disp: 90 tablet, Rfl: 2 levothyroxine (Synthroid, Levoxyl) 150 MCG tablet, Take 1 tablet (150 mcg) by mouth in the morning.Take on an empty stomach.., Disp: 90 tablet, Rfl: 3 losartan (Cozaar) 50 MG tablet, Take 1 tablet (50 mg) by mouth Daily, Disp: 90 tablet, Rfl: 3 meclizine (Antivert) 25 MG tablet, Take 1 tablet (25 mg) by mouth 1 (one) time each day at the sametime, Disp: 90 tablet, Rfl: 3 meclizine (Antivert) 25 MG tablet, Take 1 tablet (25 mg) by mouth 3 (three) times a day as needed for dizziness, Disp: 90 tablet, Rfl: 11 meloxicam (Mobic) 15 MG tablet, Take 1 tablet (15 mg) by mouth Daily, Disp: 90 tablet, Rfl: 3 metoprolol succinate XL (Toprol-XL) 50 MG 24 hr tablet, Take 1 tablet (50 mg) by mouth Daily, Disp:90 tablet, Rfl: 3 nystatin (Mycostatin) ointment, Apply topically every 12 (twelve) hours, Disp: 15 g, Rfl: 2 omeprazole (PriLOSEC) [address] capsule, Take 1 capsule (40 mg) by mouth in the morning. Take beforemeals. Do not crush or chew.., Disp: 90 capsule, Rfl: 3 ondansetron (Zofran) 8 MG tablet, Take 1 tablet (8 mg) by mouth every 8 (eight) hours if needed fornausea or vomiting, Disp: 20 tablet, Rfl: 1 oxyCODONE (Roxicodone) 10 MG immediate release tablet, Take 1 tablet (10 mg) by mouth every 4 (four) hours if needed for severe pain, Disp: 150 tablet, Rfl: 0 triamcinolone (Kenalog) 0.5 % cream, , Disp: , Rfl: zolpidem (Ambien) 10 MG tablet, TAKE 1 TABLET BY MOUTH AT BEDTIME NEEDED, Disp: 30 tablet, Rfl: 5 Social History: Social History Socioeconomic History Marital status: Spouse name: Not on file Number of children: 3 Years of education: Not on file Highest education level: Not on file Occupational History Occupation: disabled Comment: unemployed Tobacco Use Smoking status: Former Current packs/day: 0.00 Average packs/day: 1 pack/day for 36.0 years (36.0 ttl pk-yrs) Types: Cigarettes Start date: 03/15/1985 Quit date: 03/15/2021 Years since quittin.2 Smokeless tobacco: Never Vaping Use Vaping status: Never Used Substance and Sexual Activity Alcohol use: Never Comment: caffeine: 2-3 cups per day coffee Drug use: Never Sexual activity: Yes Partners: Male control/protection: Post-menopausal Other Topics Concern Not on file Social History Narrative Living with: Boyfriend Social Drivers of Health Financial Resource Strain: Not on file Food Insecurity: Not on file Transportation Needs: Not on file Physical Activity: Not on file Stress: Not on file Social Connections: Not on file Intimate Partner Violence: Not on file Housing Stability: Not on file ROS: General: denies fever, chills, fatigue, malaise Gastrointestinal: denies abdominal pain, ulcers, or changes in appetite or bowel habits Musculoskeletal: positive history of back arthritis Cardiovascular: denies CP, palpitations, irregular rhythms. Positive history of stents to the rightleg in the past 6 months OBJECTIVE LE EXAM: DERM: negative hair growth to b/l feet with thin skin noted. left dorsum of prior amputation site ulceration to subcutaneous tissue that measures 1.4cm x 0.5cm x 0.2 cm with diminished fibrous sloughand moderate serous drainage with negative probe to bone VASC: non Palpable pedal pulsed b/l with warm to cool tibia to toes b/l NEURO: 5.07 [place] Jen monofilament test intact to digits and forefoot bilaterally 125Hz tuning fork diminished to 1st MPJ bilaterally ORTHO: +5/5 DF/PF/IN/EV right, +5/5 DF/PF/IN/EV left. 20 degrees inversion and 10 degrees eversion STJ b/l. Ankle ROM less than 10 degrees b/l. Positive pain on palpation to left foot ulcer XRAY: US: ASSESSMENT 1. Diabetes mellitus due to underlying condition with diabetic polyneuropathy, unspecified whether salvage determiner insulin use ([facility]) 2. Foot ulcer, left, with fat layer exposed ([facility]) 3. PVD (peripheral vascular disease) ([facility]) PLAN The right foot ulceration recipient site was thoroughly prepared with a 15 blade for the graft. Allfibrotic and necrotic tissue was carefully dissected From the site down to healthy viable bleeding tissue. The wound edges were then skived in preparation for the epidermal skin graft to ensure optimal Healing. The ulcer site measurements were 1.6cm x 0.6cm x 0.2cm depth to subcutaneous tissue to the left foot The site was then irrigated with sterile saline and hemostasis was achieved with gentle pressure tothe site. Todays procedure is a staged procedure and may need further procedures in the future and patient isanticipating application of an EDSG in the near future. Ray Hays DPM documented in this encounterOzarks Medical [id number] Telephone encounter Note* Telephone Encounter - Riki Velarde MA - 06/27/2024 2:17 PM EDT Patient called requesting her oxycodone be sent to [facility] in [place]. [facility] [id number] Miscellaneous Notes* Telephone Encounter - Riki Velarde MA - 06/27/2024 2:17 PM EDT Patient called requesting her oxycodone be sent to [facility] in [place]. documented in this encounterOzarks Medical [id number] History of Present illness Narrative* Ray Hays DPM - 06/19/2024 4:40 PM EDT Patient: Ema Neff : 1965 PCP: Jarvis Thrasher MD SUBJECTIVE Pt present today for follow up of ulceration to left foot. Pt denies any n/f/v/c. Patient states that they have been using the following treatments for the ulcer of calcium alginate Pt is a DM2. Allergies: Allergies Allergen Reactions Ozempic (0.25 Or 0.5 Mg-Dose) [Semaglutide(0.25 Or 0.5mg-Dos)] GI intolerance Prednisone Unknown Keegan Inhibitors Cough Hydrocodone Other Reaction(s): Hallucinating Metformin Hcl GI intolerance Pioglitazone Cough Statins Other myalgia Other Reaction(s): Other: See Comments Past Medical History: Past Medical History: Diagnosis Date Allergic rhinitis Amputation of toe of right foot (CMS/HCC) 08/20/2022 Balance disorder Chronic insomnia Chronic low back pain Chronic pansinusitis Claustrophobia (CMS/HCC) Elevated hemoglobin (CMS/HCC) 08/20/2022 Essential hypertension (CMS/HCC) Fatty liver Gastroesophageal reflux disease without esophagitis 08/20/2022 GERD (gastroesophageal reflux disease) Gout Hammer toe High arches History of colon polyps History of CVA (cerebrovascular accident) Hyperlipidemia ([facility]) Leukocytosis Lumbar spinal stenosis Moderate major depression ([facility]) 08/20/2021 Morbid obesity ([facility]) Neuromuscular disorder ([facility]) RICK (obstructive sleep apnea) Osteoarthritis of lumbar spine PAOD (peripheral arterial occlusive disease) ([facility]) Peripheral neuropathy Postoperative hypothyroidism ([facility]) 09/17/2021 Santos splints Tobacco abuse Type 2 diabetes mellitus with diabetic nephropathy ([facility]) Vitamin D deficiency 11/25/2022 Medications: Current Outpatient Medications: albuterol HFA (Ventolin HFA) 90 mcg/act inhaler, Inhale 2 puffs every 4 (four) hours if needed for wheezing or shortness of breath, Disp: 8 g, Rfl: 3 amitriptyline (Elavil) 50 MG tablet, Take 1 tablet (50 mg) by mouth at bedtime, Disp: 90 tablet, Rfl: 3 ASPIRIN 81 MG chewable tablet, 1 (one) time each day at the same time., Disp: , Rfl: atorvastatin (Lipitor) 80 MG tablet, Take 1 tablet (80 mg) by mouth Daily, Disp: 90 tablet, Rfl: 1 cholecalciferol (Vitamin D-3) 25 MCG tablet, Take 25 mcg by mouth Daily, Disp: , Rfl: clopidogrel (Plavix) 75 MG tablet, Take 1 tablet (75 mg) by mouth Daily, Disp: 90 tablet, Rfl: 3 collagenase (Santyl) 250 UNIT/GM ointment, Apply 1 application topically Daily, Disp: 90 g, Rfl: 2 cyclobenzaprine (Flexeril) 10 MG tablet, Take 1 tablet (10 mg) by mouth as needed at bedtime for muscle spasms, Disp: 90 tablet, Rfl: 3 DULoxetine (Cymbalta) [address] capsule, Take 1 capsule (30 mg) by mouth Daily, Disp: 90 capsule, Rfl: 3 empagliflozin (Jardiance) 10 MG, Take 1 tablet (10 mg) by mouth Daily, Disp: 30 tablet, Rfl: 5 fluticasone (Flonase) 50 MCG/ACT nasal spray, Administer 2 sprays into each nostril Daily as neededfor rhinitis Shake gently. Before first use, prime pump. After use, clean tip and replace cap., Disp: 16 g, Rfl: 3 gabapentin (Neurontin) 800 MG tablet, Take 1 tablet (800 mg) by mouth in the morning and 1 tablet (800 mg) at noon and 1 tablet (800 mg) in the evening and 1 tablet (800 mg) before bedtime. Take before meals., Disp: 360 tablet, Rfl: 3 glimepiride (Amaryl) 4 MG tablet, Take 2 tablets (8 mg) by mouth Daily, Disp: 180 tablet, Rfl: 0 levothyroxine (Synthroid, Levoxyl) 150 MCG tablet, Take 1 tablet (150 mcg) by mouth in the morning.Take on an empty stomach.., Disp: 90 tablet, Rfl: 3 losartan (Cozaar) 50 MG tablet, Take 1 tablet (50 mg) by mouth Daily, Disp: 90 tablet, Rfl: 3 meclizine (Antivert) 25 MG tablet, Take 1 tablet (25 mg) by mouth 1 (one) time each day at the sametime, Disp: 90 tablet, Rfl: 3 meclizine (Antivert) 25 MG tablet, Take 1 tablet (25 mg) by mouth 3 (three) times a day as needed for dizziness, Disp: 90 tablet, Rfl: 11 meloxicam (Mobic) 15 MG tablet, Take 1 tablet (15 mg) by mouth Daily, Disp: 90 tablet, Rfl: 3 metoprolol succinate XL (Toprol-XL) 50 MG 24 hr tablet, Take 1 tablet (50 mg) by mouth Daily, Disp:90 tablet, Rfl: 3 nystatin (Mycostatin) ointment, Apply topically every 12 (twelve) hours, Disp: 15 g, Rfl: 2 omeprazole (PriLOSEC) [address] capsule, Take 1 capsule (40 mg) by mouth in the morning. Take beforemeals. Do not crush or chew.., Disp: 90 capsule, Rfl: 3 ondansetron (Zofran) 8 MG tablet, Take 1 tablet (8 mg) by mouth every 8 (eight) hours if needed fornausea or vomiting, Disp: 20 tablet, Rfl: 1 oxyCODONE (Roxicodone) 10 MG immediate release tablet, Take 1 tablet (10 mg) by mouth every 4 (four) hours if needed for severe pain, Disp: 180 tablet, Rfl: 0 triamcinolone (Kenalog) 0.5 % cream, , Disp: , Rfl: zolpidem (Ambien) 10 MG tablet, TAKE 1 TABLET BY MOUTH AT BEDTIME NEEDED, Disp: 30 tablet, Rfl: 5 Social History: Social History Socioeconomic History Marital status: Spouse name: Not on file Number of children: 3 Years of education: Not on file Highest education level: Not on file Occupational History Occupation: disabled Comment: unemployed Tobacco Use Smoking status: Former Current packs/day: 0.00 Average packs/day: 1 pack/day for 36.0 years (36.0 ttl pk-yrs) Types: Cigarettes Start date: 03/15/1985 Quit date: 03/15/2021 Years since quittin.2 Smokeless tobacco: Never Vaping Use Vaping status: Never Used Substance and Sexual Activity Alcohol use: Never Comment: caffeine: 2-3 cups per day coffee Drug use: Never Sexual activity: Yes Partners: Male control/protection: Post-menopausal Other Topics Concern Not on file Social History Narrative Living with: Boyfriend Social Drivers of Health Financial Resource Strain: Not on file Food Insecurity: Not on file Transportation Needs: Not on file Physical Activity: Not on file Stress: Not on file Social Connections: Not on file Intimate Partner Violence: Not on file Housing Stability: Not on file ROS: General: denies fever, chills, fatigue, malaise Gastrointestinal: denies abdominal pain, ulcers, or changes in appetite or bowel habits Musculoskeletal: positive history of back arthritis Cardiovascular: denies CP, palpitations, irregular rhythms. Positive history of stents to the rightleg in the past 6 months OBJECTIVE LE EXAM: DERM: negative hair growth to b/l feet with thin skin noted. left dorsum of prior amputation site ulceration to subcutaneous tissue that measures 1.0 cm x 1 cm x 0.2 cm with diminished fibrous sloughand moderate serous drainage with negative probe to bone VASC: non Palpable pedal pulsed b/l with warm to cool tibia to toes b/l NEURO: 5.07 [place] monofilament test intact to digits and forefoot bilaterally 125Hz tuning fork diminished to 1st MPJ bilaterally ORTHO: +5/5 DF/PF/IN/EV right, +5/5 DF/PF/IN/EV left. 20 degrees inversion and 10 degrees eversion STJ b/l. Ankle ROM less than 10 degrees b/l. Positive pain on palpation to left foot ulcer XRAY: US: ASSESSMENT 1. Diabetes mellitus due to underlying condition with diabetic polyneuropathy, unspecified whether salvage determiner insulin use ([facility]/HCC) 2. PVD (peripheral vascular disease) ([facility]) 3. Foot ulcer, left, with fat layer exposed ([facility]) PLAN Sharp debridement with 15 blade of subcutaneous ulceration to left foot with active bleeding noted and removal and excision of fibrotic and necrotic tissue to wound and DSD applied with neosporin. Ptto continue with calcium alginate daily Patient to follow up in 1 week for most likely preparation for a skin graft Ray Hays DPM documented in this encounterOzarks Medical [id number] History of Present illness Narrative* Ray Hays DPM - 06/12/2024 1:40 PM EDT Patient: Ema Neff : 1965 PCP: Jarvis Thrasher MD SUBJECTIVE Pt present today for follow up of ulceration to left foot. Pt denies any n/f/v/c. Patient states that they have been using the following treatments for the ulcer of calcium alginate Pt is a DM2. Allergies: Allergies Allergen Reactions Ozempic (0.25 Or 0.5 Mg-Dose) [Semaglutide(0.25 Or 0.5mg-Dos)] GI intolerance Prednisone Unknown Keegan Inhibitors Cough Hydrocodone Other Reaction(s): Hallucinating Metformin Hcl GI intolerance Pioglitazone Cough Statins Other myalgia Other Reaction(s): Other: See Comments Past Medical History: Past Medical History: Diagnosis Date Allergic rhinitis Amputation of toe of right foot ([facility]/HCC) 08/20/2022 Balance disorder Chronic insomnia Chronic low back pain Chronic pansinusitis Claustrophobia ([facility]/HCC) Elevated hemoglobin ([facility]/HCC) 08/20/2022 Essential hypertension ([facility]/HCC) Fatty liver Gastroesophageal reflux disease without esophagitis 08/20/2022 GERD (gastroesophageal reflux disease) Gout Hammer toe High arches History of colon polyps History of CVA (cerebrovascular accident) Hyperlipidemia (CMS/HCC) Leukocytosis Lumbar spinal stenosis Moderate major depression ([facility]/HCC) 08/20/2021 Morbid obesity ([facility]/HCC) Neuromuscular disorder ([facility]) RICK (obstructive sleep apnea) Osteoarthritis of lumbar spine PAOD (peripheral arterial occlusive disease) ([facility]) Peripheral neuropathy Postoperative hypothyroidism ([facility]) 09/17/2021 Santos splints Tobacco abuse Type 2 diabetes mellitus with diabetic nephropathy ([facility]) Vitamin D deficiency 11/25/2022 Medications: Current Outpatient Medications: albuterol HFA (Ventolin HFA) 90 mcg/act inhaler, Inhale 2 puffs every 4 (four) hours if needed for wheezing or shortness of breath, Disp: 8 g, Rfl: 3 amitriptyline (Elavil) 50 MG tablet, Take 1 tablet (50 mg) by mouth at bedtime, Disp: 30 tablet, Rfl: 9 ASPIRIN 81 MG chewable tablet, 1 (one) time each day at the same time., Disp: , Rfl: atorvastatin (Lipitor) 80 MG tablet, Take 1 tablet (80 mg) by mouth Daily, Disp: 90 tablet, Rfl: 1 cholecalciferol (Vitamin D-3) 25 MCG tablet, Take 25 mcg by mouth Daily, Disp: , Rfl: clopidogrel (Plavix) 75 MG tablet, Take 1 tablet (75 mg) by mouth Daily, Disp: 90 tablet, Rfl: 3 collagenase (Santyl) 250 UNIT/GM ointment, Apply 1 application topically Daily, Disp: 90 g, Rfl: 2 cyclobenzaprine (Flexeril) 10 MG tablet, Take 1 tablet (10 mg) by mouth as needed at bedtime for muscle spasms, Disp: 90 tablet, Rfl: 3 DULoxetine (Cymbalta) [address] capsule, Take 1 capsule (30 mg) by mouth Daily, Disp: 90 capsule, Rfl: 3 empagliflozin (Jardiance) 10 MG, Take 1 tablet (10 mg) by mouth Daily, Disp: 30 tablet, Rfl: 5 fluticasone (Flonase) 50 MCG/ACT nasal spray, Administer 2 sprays into each nostril Daily as neededfor rhinitis Shake gently. Before first use, prime pump. After use, clean tip and replace cap., Disp: 16 g, Rfl: 3 gabapentin (Neurontin) 800 MG tablet, Take 1 tablet (800 mg) by mouth in the morning and 1 tablet (800 mg) at noon and 1 tablet (800 mg) in the evening and 1 tablet (800 mg) before bedtime. Take before meals., Disp: 120 tablet, Rfl: 5 glimepiride (Amaryl) 4 MG tablet, Take 2 tablets (8 mg) by mouth Daily, Disp: 180 tablet, Rfl: 0 levothyroxine (Synthroid, Levoxyl) 150 MCG tablet, Take 1 tablet (150 mcg) by mouth in the morning.Take on an empty stomach.., Disp: 90 tablet, Rfl: 3 losartan (Cozaar) 50 MG tablet, Take 1 tablet (50 mg) by mouth Daily, Disp: 90 tablet, Rfl: 3 meclizine (Antivert) 25 MG tablet, Take 1 tablet (25 mg) by mouth 1 (one) time each day at the sametime, Disp: 90 tablet, Rfl: 3 meclizine (Antivert) 25 MG tablet, Take 1 tablet (25 mg) by mouth 3 (three) times a day as needed for dizziness, Disp: 90 tablet, Rfl: 11 meloxicam (Mobic) 15 MG tablet, Take 1 tablet (15 mg) by mouth Daily, Disp: 90 tablet, Rfl: 3 metoprolol succinate XL (Toprol-XL) 50 MG 24 hr tablet, Take 1 tablet (50 mg) by mouth Daily, Disp:30 tablet, Rfl: 9 nystatin (Mycostatin) ointment, Apply topically every 12 (twelve) hours, Disp: 15 g, Rfl: 2 omeprazole (PriLOSEC) [address] capsule, Take 1 capsule (40 mg) by mouth in the morning. Take beforemeals. Do not crush or chew.., Disp: 90 capsule, Rfl: 3 ondansetron (Zofran) 8 MG tablet, Take 1 tablet (8 mg) by mouth every 8 (eight) hours if needed fornausea or vomiting, Disp: 20 tablet, Rfl: 1 oxyCODONE (Roxicodone) 10 MG immediate release tablet, Take 1 tablet (10 mg) by mouth every 4 (four) hours if needed for severe pain, Disp: 180 tablet, Rfl: 0 triamcinolone (Kenalog) 0.5 % cream, , Disp: , Rfl: zolpidem (Ambien) 10 MG tablet, TAKE 1 TABLET BY MOUTH AT BEDTIME NEEDED, Disp: 30 tablet, Rfl: 5 Social History: Social History Socioeconomic History Marital status: Spouse name: Not on file Number of children: 3 Years of education: Not on file Highest education level: Not on file Occupational History Occupation: disabled Comment: unemployed Tobacco Use Smoking status: Former Current packs/day: 0.00 Average packs/day: 1 pack/day for 36.0 years (36.0 ttl pk-yrs) Types: Cigarettes Start date: 03/15/1985 Quit date: 03/15/2021 Years since quittin.2 Smokeless tobacco: Never Vaping Use Vaping status: Never Used Substance and Sexual Activity Alcohol use: Never Comment: caffeine: 2-3 cups per day coffee Drug use: Never Sexual activity: Yes Partners: Male control/protection: Post-menopausal Other Topics Concern Not on file Social History Narrative Living with: Boyfriend Social Drivers of Health Financial Resource Strain: Not on file Food Insecurity: Not on file Transportation Needs: Not on file Physical Activity: Not on file Stress: Not on file Social Connections: Not on file Intimate Partner Violence: Not on file Housing Stability: Not on file ROS: General: denies fever, chills, fatigue, malaise Gastrointestinal: denies abdominal pain, ulcers, or changes in appetite or bowel habits Musculoskeletal: positive history of back arthritis Cardiovascular: denies CP, palpitations, irregular rhythms. Positive history of stents to the rightleg in the past 6 months OBJECTIVE LE EXAM: DERM: negative hair growth to b/l feet with thin skin noted. left area of prior 2nd toe has ulceration to subcutaneous tissue that measures 1.0 cm x 1 cm x 0.2 cm with diminished fibrous slough and moderate serous drainage with negative probe to bone VASC: non Palpable pedal pulsed b/l with warm to cool tibia to toes b/l NEURO: 5.07 [place] Jen monofilament test intact to digits and forefoot bilaterally 125Hz tuning fork diminished to 1st MPJ bilaterally ORTHO: +5/5 DF/PF/IN/EV right, +5/5 DF/PF/IN/EV left. 20 degrees inversion and 10 degrees eversion STJ b/l. Ankle ROM less than 10 degrees b/l. Positive pain on palpation to left foot ulcer XRAY: US: ASSESSMENT 1. Diabetes mellitus due to underlying condition with diabetic polyneuropathy, unspecified whether group home insulin use ([facility]) 2. PVD (peripheral vascular disease) ([facility]) 3. Foot ulcer, left, with fat layer exposed (CMS/HCC) PLAN Sharp debridement with 15 blade of subcutaneous ulceration to left foot with active bleeding noted and removal and excision of fibrotic and necrotic tissue to wound and DSD applied with neosporin. Ptto continue with calcium alginate daily Left 2nd toe amputation site has negative erythema and healed ulceration Patient is to receive from [facility] CIARRA 4.34 square inch wound dressings to be applied as a primary dressing every other day to the ulcer described in today's note from today's visit. Thesize,location, and drainage from the ulcer should be listed in current documentation. Ray Hays DPM documented in this encounterOzarks Medical [id number] History of Present illness Narrative* Ray Hays DPM - 06/05/2024 2:10 PM EDT Patient: Ema Neff : 1965 PCP: Jarvis Thrasher MD SUBJECTIVE Pt present today for follow up of ulceration to left foot. Pt denies any n/f/v/c. Patient states that they have been using the following treatments for the ulcer of calcium alginate Pt is a DM2. Allergies: Allergies Allergen Reactions Ozempic (0.25 Or 0.5 Mg-Dose) [Semaglutide(0.25 Or 0.5mg-Dos)] GI intolerance Prednisone Unknown Keegan Inhibitors Cough Hydrocodone Other Reaction(s): Hallucinating Metformin Hcl GI intolerance Pioglitazone Cough Statins Other myalgia Other Reaction(s): Other: See Comments Past Medical History: Past Medical History: Diagnosis Date Allergic rhinitis Amputation of toe of right foot (CMS/HCC) 08/20/2022 Balance disorder Chronic insomnia Chronic low back pain Chronic pansinusitis Claustrophobia (CMS/HCC) Elevated hemoglobin (CMS/HCC) 08/20/2022 Essential hypertension (CMS/HCC) Fatty liver Gastroesophageal reflux disease without esophagitis 08/20/2022 GERD (gastroesophageal reflux disease) Gout Hammer toe High arches History of colon polyps History of CVA (cerebrovascular accident) Hyperlipidemia (CMS/HCC) Leukocytosis Lumbar spinal stenosis Moderate major depression (CMS/HCC) 08/20/2021 Morbid obesity (CMS/HCC) Neuromuscular disorder (CMS/HCC) RICK (obstructive sleep apnea) Osteoarthritis of lumbar spine PAOD (peripheral arterial occlusive disease) ([facility]) Peripheral neuropathy Postoperative hypothyroidism ([facility]) 09/17/2021 Santos splints Tobacco abuse Type 2 diabetes mellitus with diabetic nephropathy ([facility]) Vitamin D deficiency 11/25/2022 Medications: Current Outpatient Medications: albuterol HFA (Ventolin HFA) 90 mcg/act inhaler, Inhale 2 puffs every 4 (four) hours if needed for wheezing or shortness of breath, Disp: 8 g, Rfl: 3 amitriptyline (Elavil) 50 MG tablet, Take 1 tablet (50 mg) by mouth at bedtime, Disp: 30 tablet, Rfl: 9 ASPIRIN 81 MG chewable tablet, 1 (one) time each day at the same time., Disp: , Rfl: atorvastatin (Lipitor) 80 MG tablet, Take 1 tablet (80 mg) by mouth Daily, Disp: 90 tablet, Rfl: 1 cholecalciferol (Vitamin D-3) 25 MCG tablet, Take 25 mcg by mouth Daily, Disp: , Rfl: clopidogrel (Plavix) 75 MG tablet, Take 1 tablet (75 mg) by mouth Daily, Disp: 90 tablet, Rfl: 3 collagenase (Santyl) 250 UNIT/GM ointment, Apply 1 application topically Daily, Disp: 90 g, Rfl: 2 cyclobenzaprine (Flexeril) 10 MG tablet, Take 1 tablet (10 mg) by mouth as needed at bedtime for muscle spasms, Disp: 90 tablet, Rfl: 3 DULoxetine (Cymbalta) [address] capsule, Take 1 capsule (30 mg) by mouth Daily, Disp: 90 capsule, Rfl: 3 empagliflozin (Jardiance) 10 MG, Take 1 tablet (10 mg) by mouth Daily, Disp: 30 tablet, Rfl: 5 fluticasone (Flonase) 50 MCG/ACT nasal spray, Administer 2 sprays into each nostril Daily as neededfor rhinitis Shake gently. Before first use, prime pump. After use, clean tip and replace cap., Disp: 16 g, Rfl: 3 gabapentin (Neurontin) 800 MG tablet, Take 1 tablet (800 mg) by mouth in the morning and 1 tablet (800 mg) at noon and 1 tablet (800 mg) in the evening and 1 tablet (800 mg) before bedtime. Take before meals., Disp: 120 tablet, Rfl: 5 glimepiride (Amaryl) 4 MG tablet, Take 2 tablets (8 mg) by mouth Daily, Disp: 180 tablet, Rfl: 0 levothyroxine (Synthroid, Levoxyl) 150 MCG tablet, Take 1 tablet (150 mcg) by mouth in the morning.Take on an empty stomach.., Disp: 90 tablet, Rfl: 3 losartan (Cozaar) 50 MG tablet, Take 1 tablet (50 mg) by mouth Daily, Disp: 90 tablet, Rfl: 3 meclizine (Antivert) 25 MG tablet, Take 1 tablet (25 mg) by mouth 1 (one) time each day at the sametime, Disp: 90 tablet, Rfl: 3 meclizine (Antivert) 25 MG tablet, Take 1 tablet (25 mg) by mouth 3 (three) times a day as needed for dizziness, Disp: 90 tablet, Rfl: 11 meloxicam (Mobic) 15 MG tablet, Take 1 tablet (15 mg) by mouth Daily, Disp: 90 tablet, Rfl: 3 metoprolol succinate XL (Toprol-XL) 50 MG 24 hr tablet, Take 1 tablet (50 mg) by mouth Daily, Disp:30 tablet, Rfl: 9 nystatin (Mycostatin) ointment, Apply topically every 12 (twelve) hours, Disp: 15 g, Rfl: 2 omeprazole (PriLOSEC) [address] capsule, Take 1 capsule (40 mg) by mouth in the morning. Take beforemeals. Do not crush or chew.., Disp: 90 capsule, Rfl: 3 ondansetron (Zofran) 8 MG tablet, Take 1 tablet (8 mg) by mouth every 8 (eight) hours if needed fornausea or vomiting, Disp: 20 tablet, Rfl: 1 oxyCODONE (Roxicodone) 10 MG immediate release tablet, Take 1 tablet (10 mg) by mouth every 4 (four) hours if needed for severe pain, Disp: 180 tablet, Rfl: 0 triamcinolone (Kenalog) 0.5 % cream, , Disp: , Rfl: zolpidem (Ambien) 10 MG tablet, TAKE 1 TABLET BY MOUTH AT BEDTIME NEEDED, Disp: 30 tablet, Rfl: 5 Social History: Social History Socioeconomic History Marital status: Spouse name: Not on file Number of children: 3 Years of education: Not on file Highest education level: Not on file Occupational History Occupation: disabled Comment: unemployed Tobacco Use Smoking status: Former Current packs/day: 0.00 Average packs/day: 1 pack/day for 36.0 years (36.0 ttl pk-yrs) Types: Cigarettes Start date: 03/15/1985 Quit date: 03/15/2021 Years since quittin.2 Smokeless tobacco: Never Vaping Use Vaping status: Never Used Substance and Sexual Activity Alcohol use: Never Comment: caffeine: 2-3 cups per day coffee Drug use: Never Sexual activity: Yes Partners: Male control/protection: Post-menopausal Other Topics Concern Not on file Social History Narrative Living with: Boyfriend Social Drivers of Health Financial Resource Strain: Not on file Food Insecurity: Not on file Transportation Needs: Not on file Physical Activity: Not on file Stress: Not on file Social Connections: Not on file Intimate Partner Violence: Not on file Housing Stability: Not on file ROS: General: denies fever, chills, fatigue, malaise Gastrointestinal: denies abdominal pain, ulcers, or changes in appetite or bowel habits Musculoskeletal: positive history of back arthritis Cardiovascular: denies CP, palpitations, irregular rhythms. Positive history of stents to the rightleg in the past 6 months OBJECTIVE LE EXAM: DERM: negative hair growth to b/l feet with thin skin noted. left area of prior 2nd toe has ulceration to subcutaneous tissue that measures 1 cm x 1 cm x 0.2 cm with diminished fibrous slough and slight serous drainage with negative probe to bone VASC: non Palpable pedal pulsed b/l with warm to cool tibia to toes b/l NEURO: 5.07 [place] Jen monofilament test intact to digits and forefoot bilaterally 125Hz tuning fork diminished to 1st MPJ bilaterally ORTHO: +5/5 DF/PF/IN/EV right, +5/5 DF/PF/IN/EV left. 20 degrees inversion and 10 degrees eversion STJ b/l. Ankle ROM less than 10 degrees b/l. Positive pain on palpation to left foot ulcer XRAY: US: ASSESSMENT 1. PVD (peripheral vascular disease) ([facility]) 2. Diabetes mellitus due to underlying condition with diabetic polyneuropathy, unspecified whether group home insulin use ([facility]) 3. Foot ulcer, left, with fat layer exposed (CMS/HCC) PLAN Patient educated today on proper diabetic foot care including monitoring feet daily for any signs of infection openings in the skin or irregularities to both feet. Patient had a diabetic neurologicalexam today to both their feet and discussed proper shoe gear. Sharp debridement with 15 blade of subcutaneous ulceration to left foot with active bleeding noted and removal and excision of fibrotic and necrotic tissue to wound and DSD applied with neosporin. Ptto continue with calcium alginate daily Right 2nd toe amputation site has negative erythema and healed ulceration Ray Hays DPM documented in this encounterOzarks Medical [id number] Telephone encounter Note* Telephone Encounter - Riki Velarde MA - 05/08/2024 10:17 AM EST Yes, this is Ema Neff. My phone number is [phone]. My date of is 1965. I am calling in my oxyIgea for this week. Thank you, philippe. -Copied from [facility] loaded [facility] [id number] Miscellaneous Notes* Telephone Encounter - Riki Velarde MA - 05/08/2024 10:17 AM EST Yes, this is Ema Neff. My phone number is [phone]. My date of is 1965. I am calling in my [employer] for this week. Thank you, philippe. -Copied from [facility] loaded documented in this encounterOzarks Medical [id number] History of Present illness Narrative* Claudy Soriano NP - 04/12/2024 2:00 PM EST Images from the original note were not included. Ema Neff is a 59 y.o. female presents with chief complaint of 3 Month Follow Up of Chronic Conditions (No lab ordered prior to visit. HBA1C done today = 10.2 %/She cancelled colonoscopy due to not being able to hold Coumadin prior. ) and Discuss Medication (Patient increased Atorvastatin on her own to 40 mg 2 po at bedtime for approximately 2-3 days. States this was recommended to her by a hospitalist doctor. She would also like to discuss Glimepiride. She was unable to tolerate Ozempic, caused GI upset. ) HPI: History of Present Illness The patient presents for evaluation of peripheral artery disease, sleep apnea, diabetes mellitus, and medication management. She reports no respiratory distress or chest discomfort. Her bowel movements are regular, with the most recent one occurring this morning. She has a history of peripheral artery disease (PAD) and is currently on anticoagulant therapy. Juanecalls an incident where she discontinued her blood thinners for 2 days prior to a scheduled endoscopy, resulting in severe leg pain upon touch. The only variable in her condition was the cessation of her medication. After resuming her anticoagulant therapy, her symptoms subsided within a few days. She has been diagnosed with sleep apnea but is not currently using a CPAP machine. She has a history of CPAP use but found it intolerable, particularly when she weighed 100 pounds more than her current weight. She often woke up to find the mask dislodged from her face or on the floor. Her A1c level was previously reduced to 6.7 with the use of Ozempic injections, but she discontinued the medication due to gastrointestinal side effects. She is seeking alternative treatment options.She was previously prescribed glimepiride, initially at a dose of 1.5 tablets, which was ineffective, leading to the recommendation of Ozempic injections. She was later advised to reduce the dose to half a tablet, but she continues to experience issues. She has a history of intolerance to pioglitazone, which caused a persistent cough. She has not tried Jardiance. She reports frequent yeast infections on her skin, particularly in areas where her skin folds, but does not experience vaginal yeast infections. She is currently taking vitamin D3 supplements daily, although she is uncertain of the dosage. ALLERGIES The patient has an intolerance to OZEMPIC. MEDICATIONS Flonase, atorvastatin, nystatin, Percocet, vitamin D3 I have reviewed and reconciled the history and medication list with the patient today. HISTORIES: PAST MEDICAL HISTORY: Past Medical History: Diagnosis Date Allergic rhinitis Balance disorder Balance disorder Chronic insomnia Chronic low back pain Chronic pansinusitis Claustrophobia (CMS/HCC) Diabetes mellitus (CMS/HCC) Essential hypertension (CMS/HCC) Fatty liver GERD (gastroesophageal reflux disease) Gout Hammer toe High arches History of colon polyps History of CVA (cerebrovascular accident) History of transfusion Hyperlipidemia (CMS/HCC) Hypertension (CMS/HCC) Leukocytosis Lumbar spinal stenosis Morbid obesity (CMS/HCC) Neuromuscular disorder (CMS/HCC) Neuropathy Neuropathy in diabetes (CMS/HCC) RICK (obstructive sleep apnea) Osteoarthritis of lumbar spine PAOD (peripheral arterial occlusive disease) (CMS/HCC) Peripheral neuropathy Santos splints Stroke (CMS/HCC) Tobacco abuse Type 2 diabetes mellitus with diabetic nephropathy (CMS/HCC) Weakness, SOB, acute CVA 12/2016 SURGICAL HISTORY: Past Surgical History: Procedure Laterality Date AMPUTATION AMPUTATION OF REPLICATED TOES Bilateral 10/07/2021 toe 2 ANGIOPLASTY Left 07/2021 Left posterior tibial artery angioplasty, left dorsalis pedis angioplasty, pedal arch reconstruction ARTERIAL BYPASS SURGERY CATARACT EXTRACTION CATARACT EXTRACTION 2020 CHOLECYSTECTOMY 1998 COLONOSCOPY 2013 ENDOMETRIAL ABLATION OTHER SURGICAL HISTORY 12/22/2021 Multiplter laminar epidural injections OTHER SURGICAL HISTORY Left 10/13/2021 L leg anterior tibial to peroneal artery bypass OTHER SURGICAL HISTORY 07/10/2022 ulceration of surgical amputation of 2nd toe POLYPECTOMY PRESSURE ULCER DEBRIDEMENT Bilateral 12/22/2021 foot ulcer TOE AMPUTATION Left 10/07/2021 LT toe 2 TONSILLECTOMY 1968 TOTAL THYROIDECTOMY 07/2021 TUBAL LIGATION Bilateral 1988 WOUND DEBRIDEMENT Left 11/09/2021 leg WOUND DEBRIDEMENT 02/19/2023 amputation site, gangrenous tissue left 3rd toe SOCIAL HISTORY: Social History Tobacco Use Smoking status: Former Current packs/day: 0.00 Average packs/day: 1 pack/day for 36.0 years (36.0 ttl pk-yrs) Types: Cigarettes Start date: 03/15/1985 Quit date: 03/15/2021 Years since quittin.0 Smokeless tobacco: Never Vaping Use Vaping status: Never Used Substance Use Topics Alcohol use: Never Comment: caffeine: 2-3 cups per day coffee Drug use: Never Depression: Not at risk (01/05/2024) PHQ-2 PHQ-2 Score: 0 FAMILY HISTORY: Family History Problem Relation Name Age of Onset Pulmonary embolism Mother Pulmonary blood clot Clotting disorder Mother Pulmonary blood clot Hypertension Father Bladder/ diabetes Cancer Father Bladder/ diabetes Diabetes Father Bladder/ diabetes No Known Problems Sister No Known Problems Brother MEDICATIONS: Current Outpatient Medications Medication Instructions albuterol HFA (Ventolin HFA) 90 mcg/act inhaler 2 puffs, Inhalation, Every 4 hours PRN amitriptyline (Elavil) 50 MG tablet TAKE 1 TABLET BY MOUTH AT BEDTIME ASPIRIN 81 MG chewable tablet Every 24 hours atorvastatin (LIPITOR) 80 mg, Oral, Daily clopidogrel (PLAVIX) 75 mg, Oral, Daily collagenase (Santyl) 250 UNIT/GM ointment 1 application , Topical, Daily cyclobenzaprine (FLEXERIL) 10 mg, Oral, Nightly PRN DULoxetine (CYMBALTA) 30 mg, Oral, Daily fluticasone (Flonase) 50 MCG/ACT nasal spray 2 sprays, Each Nostril, Daily PRN, Shake gently. Before first use, prime pump. After use, clean tip and replace cap. gabapentin (Neurontin) 800 MG tablet TAKE 1 TABLET BY MOUTH FOUR TIMES DAILY (IN THE MORNING, at noon, IN THE EVENING, and BEFORE bedtime) glimepiride (AMARYL) 4 mg, Oral, Daily levothyroxine (SYNTHROID, LEVOXYL) 150 mcg, Oral, Every morning, Take on an empty stomach. losartan (COZAAR) 50 mg, Oral, Daily meclizine (ANTIVERT) 25 mg, Oral, Every 24 hours meloxicam (MOBIC) 15 mg, Oral, Daily metoprolol succinate XL (TOPROL-XL) 50 mg, Oral, Daily nystatin (Mycostatin) ointment Topical, Every 12 hours omeprazole (PriLOSEC) [address] capsule TAKE 1 CAPSULE BY MOUTH 30 mins BEFORE morning meal ondansetron (Zofran) 8 MG tablet TAKE 1 TABLET BY MOUTH EVERY 8 HOURS NEEDED FOR NAUSEA AND VOMITING oxyCODONE (ROXICODONE) 10 mg, Oral, Every 4 hours PRN triamcinolone (Kenalog) 0.5 % cream zolpidem (AMBIEN) 10 mg, Oral, Nightly PRN ALLERGIES: Allergies Allergen Reactions Hydrocodone-Acetaminophen Unknown Ozempic (0.25 Or 0.5 Mg-Dose) [Semaglutide(0.25 Or 0.5mg-Dos)] GI intolerance Prednisone Unknown Keegan Inhibitors Cough Hydrocodone Other Reaction(s): Hallucinating Metformin Hcl GI intolerance Pioglitazone Cough Statins Other myalgia Other Reaction(s): Other: See Comments PHYSICAL EXAM: Visit Vitals BP 112/60 (BP Location: Left arm, Patient Position: Sitting) Pulse 99 Ht 5' 5 Wt 259 lb SpO2 94% BMI 43.10 kg/m Smoking Status Former BSA 2.32 m BP Readings from Last 3 Encounters: 04/12/24 112/60 01/05/24 128/80 11/10/23 126/60 Wt Readings from Last 3 Encounters: 04/12/24 259 lb 01/05/24 265 lb 1.6 oz 11/10/23 249 lb Physical Exam HENT: Right Ear: Tympanic membrane and external ear normal. Left Ear: Tympanic membrane and external ear normal. Mouth/Throat: Mouth: Mucous membranes are moist. Neck: Thyroid: No thyroid mass or thyromegaly. Vascular: No carotid bruit. Cardiovascular: Rate and Rhythm: Normal rate and regular rhythm. Heart sounds: No murmur heard. No friction rub. No gallop. Comments: Non-pitting edema BLE Pulmonary: Effort: Pulmonary effort is normal. Breath sounds: Normal breath sounds. Abdominal: General: Bowel sounds are normal. Palpations: Abdomen is soft. Tenderness: There is no abdominal tenderness. Musculoskeletal: Right lower leg: Edema present. Left lower leg: Edema present. Lymphadenopathy: Cervical: No cervical adenopathy. Skin: General: Skin is warm and dry. Neurological: Mental Status: She is alert and oriented to person, place, and time. Psychiatric: Thought Content: Thought content normal. Results Laboratory Studies A1c is 10.2. Vitamin D level was 11. ASSESSMENT AND PLAN: Assessment & Plan 1. Type 2 diabetes mellitus with diabetic polyneuropathy, without long-term current use of insulin ([facility]) (Primary) Her HbA1c has increased from 9.5 to 10.2. She has experienced adverse effects with pioglitazone andOZEMPIC. Will increase Amaryl to 8 mg daily. Will add Jardiance, discussed if this is costly that she should let us know. - POCT glycosylated hemoglobin (Hb A1C) docked device - glimepiride (Amaryl) 4 MG tablet; Take 2 tablets (8 mg) by mouth Daily Dispense: 180 tablet; Refill: 0 - empagliflozin (Jardiance) 10 MG; Take 1 tablet (10 mg) by mouth Daily Dispense: 30 tablet; Refill: 5 2. Chronic kidney disease, stage 2 (mild) She will get labs done today. We will continue the current medications and continue to modify all risk factors as we are able to do so. - CBC and differential; Future - Comprehensive metabolic panel; Future - Vitamin D 25 hydroxy Total; Future - Microalbumin / creatinine urine ratio; Future - Urinalysis with microscopic; Future - CBC and differential - Comprehensive metabolic panel - Vitamin D 25 hydroxy Total - Microalbumin / creatinine urine ratio - Urinalysis with microscopic 3. Essential hypertension (CMS/HCC) Doing well. Blood pressures have been good. Continue lifestyle modifications. Continue current medication. Call if any problems or if home blood pressures rising. - Microalbumin / creatinine urine ratio; Future - Urinalysis with microscopic; Future - Microalbumin / creatinine urine ratio - Urinalysis with microscopic 4. History of stroke without residual deficits Stable. Continue risk factor reduction. 5. Moderate major depression (CMS/HCC) Stable. Continue current regimen. 6. Peripheral arterial disease (CMS/HCC) She was informed in the past that she could not stop Plavix for a Colonoscopy. She was instructed to contact Dr Mon's office to see if this was possible. If unable to stop Plavix, will order Cologuard. 7. Pure hypercholesterolemia (CMS/HCC) Will increase to 80 mg once daily since last levels in 2021 were elevated and she has PAD. - atorvastatin (Lipitor) 80 MG tablet; Take 1 tablet (80 mg) by mouth Daily Dispense: 90 tablet; Refill: 1 - Lipid panel; Future - Lipid panel 8. Spinal stenosis of lumbar region without neurogenic claudication Stable. Continue current regimen. 9. Chronic insomnia Stable. Continue current regimen. 10. RICK (obstructive sleep apnea) She has a history of sleep apnea but is not currently using a CPAP machine due to intolerance. No new treatment was discussed during this visit as she lost 100 lbs since she was first diagnosed with RICK. Consider repeat testing if needed. 11. Chronic pansinusitis Stable. Continue current regimen. - fluticasone (Flonase) 50 MCG/ACT nasal spray; Administer 2 sprays into each nostril Daily as needed for rhinitis Shake gently. Before first use, prime pump. After use, clean tip and replace cap. Dispense: 16 g; Refill: 3 12. Yeast dermatitis Stable. Continue current regimen. She denies issues with vaginal yeast infections. Discussed that Jardiance can worsen yeast but she will let us know if this occurs. - nystatin (Mycostatin) ointment; Apply topically every 12 (twelve) hours Dispense: 15 g; Refill: 2 13. Chronic bilateral low back pain without sciatica Doing well. OARRS report was reviewed and there were no concerns. Continue current regimen. Will follow-up in 3 months to reassess and review OARRS report again. - oxyCODONE (Roxicodone) 10 MG immediate release tablet; Take 1 tablet (10 mg) by mouth every 4 (four) hours if needed for severe pain Dispense: 150 tablet; Refill: 0 14. Morbid obesity (CMS/HCC) Encouraged to eat a healthy diet and exercise regularly. 15. Body mass index (BMI) 40.0-44.9, adult (CMS/HCC) As above. 16. Need for immunization against influenza - Flu vaccine, trivalent, adjuvanted, preservative free 17. Postoperative hypothyroidism (CMS/HCC) She is requesting T3/T4 be done with TSH. Continue current regimen. - T3, free; Future - T4, free; Future - TSH; Future - T3, free - T4, free - TSH 18. Cervical cancer screening She is overdue for [employer] exam, will refer. - Ambulatory referral to Gynecology; Future Dr. Thrasher was present in the office at the time of visit today and is supervising patient care. I amfollowing Dr. Thrasher's established plan of care for the above issues. documented in this encounterOzarks Medical [id number] Telephone encounter Note* Telephone Encounter - Yazmin Schaeffer LPN - 01/17/2024 1:35 PM EST Patient called to report she has a lingering cough and gets a bloody nose when coughing. Asking [facility]. [facility] [id number] Miscellaneous Notes* Telephone Encounter - Yazmin Schaeffer LPN - 01/17/2024 1:35 PM EST Patient called to report she has a lingering cough and gets a bloody nose when coughing. Asking [facility]. documented in this encounterOzarks Medical [id number] Evaluation note* Diagnosis Type 2 diabetes mellitus with diabetic polyneuropathy, without long-term current use of insulin ([facility])- Primary Chronic kidney disease, stage 3a (HCC) ([facility]) Essential hypertension ([facility]/HCC) Unspecified essential hypertension Pure hypercholesterolemia ([facility]/HCC) Pure hypercholesterolemia History of stroke without residual deficits Transient ischemic attack (TIA), and cerebral infarction without residual deficits Immunodeficiency due to conditions classified elsewhere ([facility]) Hyperparathyroidism, unspecified ([facility]) Hyperparathyroidism, unspecified Moderate major depression ([facility]) Major depressive disorder, single episode, moderate Chronic insomnia Insomnia, unspecified Spinal stenosis of lumbar region with neurogenic claudication SOB (shortness of breath) Shortness of breath Acute bronchitis, unspecified organism Acute cough Bilateral carotid bruits RICK (obstructive sleep apnea) Obstructive sleep apnea (adult) (pediatric) Yeast dermatitis documented in this encounter [facility] [id number] History of Present illness Narrative* Jarvis Thrasher MD - 01/05/2024 2:00 PM EDT Images from the original note were not included. Ema Neff is a 58 y.o. female presents with chief complaint of 3 Month Follow Up ([facility]. ) and URI (Productive Cough, SOB, wheezing, runny nose, fatigue x 5 days. ) HPI: History of Present Illness Patient presents today for follow up of chronic medical problems. She is experiencing symptoms of cough, shortness of breath, runny nose, wheezing, and fatigue. She was tested for COVID-19 a month ago and the results were negative. She suspects her symptoms may be due to bronchitis, as she has a history of developing bronchitis following upper respiratory infections. She also reports a sensation of tightness in her lungs but is unable to expectorate any phlegm.Her last chest x-ray was conducted some time ago. She has a history of asthmatic bronchitis and recalls an incident where exposure to cigarette smoke in a car triggered severe coughing and difficultybreathing. She is requesting a refill of her albuterol inhaler, which is currently 4 years old. Yesy reports coughing at night and has previously used codeine cough syrup for relief. She has been off her Ozempic injections for a significant period and anticipates that her lab results will show elevated blood sugar levels. She monitors her blood sugar at home, which typically ranges between 140 and 150. She has not experienced any hypoglycemic episodes since discontinuing Ozempic but occasionally feels her blood sugar is high when she starts sweating. The lowest blood sugar level she has recorded was 48. She discontinued Ozempic due to a surgical procedure and is hesitant toresume it. She is interested in knowing her A1c levels. She acknowledges that her blood sugar was well-controlled while on Ozempic and she was not as heavy as she is now. She reports difficulty seeing out of one eye due to a blockage. She had an ultrasound performed a couple of years ago. I have reviewed and reconciled the history and medication list with the patient today. HISTORIES: PAST MEDICAL HISTORY: Past Medical History: Diagnosis Date Allergic rhinitis Balance disorder Balance disorder Chronic insomnia Chronic low back pain Chronic pansinusitis Claustrophobia (CMS/HCC) Diabetes mellitus (CMS/HCC) Essential hypertension (CMS/HCC) Fatty liver GERD (gastroesophageal reflux disease) Gout Hammer toe High arches History of colon polyps History of CVA (cerebrovascular accident) History of transfusion Hyperlipidemia (CMS/HCC) Hypertension (CMS/HCC) Leukocytosis Lumbar spinal stenosis Morbid obesity (CMS/HCC) Neuromuscular disorder (CMS/HCC) Neuropathy Neuropathy in diabetes (CMS/HCC) RICK (obstructive sleep apnea) Osteoarthritis of lumbar spine PAOD (peripheral arterial occlusive disease) (CMS/HCC) Peripheral neuropathy Santos splints Stroke (CMS/HCC) Tobacco abuse Type 2 diabetes mellitus with diabetic nephropathy (CMS/HCC) Weakness, SOB, acute CVA 12/2016 SURGICAL HISTORY: Past Surgical History: Procedure Laterality Date AMPUTATION AMPUTATION OF REPLICATED TOES Bilateral 10/07/2021 toe 2 ANGIOPLASTY Left 07/2021 Left posterior tibial artery angioplasty, left dorsalis pedis angioplasty, pedal arch reconstruction ARTERIAL BYPASS SURGERY CATARACT EXTRACTION CATARACT EXTRACTION 2020 CHOLECYSTECTOMY 1998 COLONOSCOPY 2013 ENDOMETRIAL ABLATION OTHER SURGICAL HISTORY 12/22/2021 Multiplter laminar epidural injections OTHER SURGICAL HISTORY Left 10/13/2021 L leg anterior tibial to peroneal artery bypass OTHER SURGICAL HISTORY 07/10/2022 ulceration of surgical amputation of 2nd toe POLYPECTOMY PRESSURE ULCER DEBRIDEMENT Bilateral 12/22/2021 foot ulcer TOE AMPUTATION Left 10/07/2021 LT toe 2 TONSILLECTOMY 1968 TOTAL THYROIDECTOMY 07/2021 TUBAL LIGATION Bilateral 1988 WOUND DEBRIDEMENT Left 11/09/2021 leg WOUND DEBRIDEMENT 02/19/2023 amputation site, gangrenous tissue left 3rd toe SOCIAL HISTORY: Social History Tobacco Use Smoking status: Former Current packs/day: 0.00 Average packs/day: 1 pack/day for 36.0 years (36.0 ttl pk-yrs) Types: Cigarettes Start date: 03/15/1985 Quit date: 03/15/2021 Years since quittin.8 Smokeless tobacco: Never Vaping Use Vaping status: Never Used Substance Use Topics Alcohol use: Never Comment: caffeine: 2-3 cups per day coffee Drug use: Never Depression: Not at risk (01/05/2024) PHQ-2 PHQ-2 Score: 0 FAMILY HISTORY: Family History Problem Relation Name Age of Onset Pulmonary embolism Mother Pulmonary blood clot Clotting disorder Mother Pulmonary blood clot Hypertension Father Bladder/ diabetes Cancer Father Bladder/ diabetes Diabetes Father Bladder/ diabetes No Known Problems Sister No Known Problems Brother MEDICATIONS: Current Outpatient Medications Medication Instructions amitriptyline (Elavil) 50 MG tablet TAKE 1 TABLET BY MOUTH AT BEDTIME ASPIRIN 81 MG chewable tablet Every 24 hours atorvastatin (LIPITOR) 40 mg, Oral, Daily clopidogrel (PLAVIX) 75 mg, Oral, Daily collagenase (Santyl) 250 UNIT/GM ointment 1 application , Topical, Daily cyclobenzaprine (FLEXERIL) 10 mg, Oral, Nightly PRN DULoxetine (CYMBALTA) 30 mg, Oral, Daily fluticasone (Flonase) 50 MCG/ACT nasal spray instill 2 (TWO) sprays IN EACH NOSTRIL DAILY NEEDED gabapentin (NEURONTIN) 800 mg, Oral, 4 times daily glimepiride (AMARYL) 4 mg, Oral, Daily levothyroxine (SYNTHROID, LEVOXYL) 150 mcg, Oral, Every morning, Take on an empty stomach. losartan (COZAAR) 50 mg, Oral, Daily meclizine (ANTIVERT) 25 mg, Oral,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 constipation and diarrhea. Genitourinary: Negative for dysuria and urgency. Musculoskeletal: Negative for gait problem and joint swelling. Skin: Negative for rash. Neurological: Negative for dizziness, syncope, weakness, light-headedness and headaches. Objective Vital signs: BP 118/70 Pulse 98 Temp 96.9 F Wt 245 lb 12.8 oz SpO2 97% BMI 40.90 kg/m Physical Exam Constitutional: General: She is not in acute distress. Appearance: She is not ill-appearing. HENT: Nose: No congestion or rhinorrhea. Mouth/Throat: Pharynx: No oropharyngeal exudate or posterior oropharyngeal erythema. Eyes: Extraocular Movements: Extraocular movements intact. Pupils: Pupils are equal, round, and reactive to light. Neck: Full ROM. No cervical adenopathy Cardiovascular: Rate and Rhythm: Normal rate and regular rhythm. Heart sounds: No murmur heard. No friction rub. Pulmonary: Breath sounds: Normal breath sounds. No wheezing, rhonchi or rales. Abdominal: General: There is no distension. Palpations: Abdomen is soft. There is no mass. Tenderness: There is no abdominal tenderness. There is no right CVA tenderness or left CVA tenderness. Musculoskeletal: Right lower leg: No edema. Left lower leg: No edema. Lymphadenopathy: Cervical: No cervical adenopathy. Neurological: General: No focal deficit present. Mental Status: She is oriented to person, place, and time. Cranial Nerves: No cranial nerve deficit. Motor: No weakness. Gait: Gait normal. Psychiatric: Thought Content: Thought content normal. Judgment: Judgment normal. Assessment/Plan Problem List Items Addressed This Visit Essential hypertension (CMS/HCC) Well-controlled for surgery. Continue current therapy and lifestyle changes. Other Visit Diagnoses Encounter for pre-operative cardiovascular clearance - Primary All of the patient s chronic medical conditions have been optimized. Patient is an RCRI Class I risk. The patient reports ability to perform at least 4 METS with a DASI score of 42.7. Patient is low risk or cardiac complications based on presurgical cardiac algorithm. Patient is optimized for surgery & was reminded to stop all supplements one week prior to surgery. EKG 04/15/2023 reviewed showing NSR. Type 2 diabetes mellitus with peripheral neuropathy (CMS/HCC) Reviewing previous labs including A1C. Patient is appropriately controlled for surgery. Pt is also having labs drawn today. Stage 2 chronic kidney disease Labs to be drawn before surgery. Previous labs reviewed and the CKD has been stable. Last creatinine 1.02 on 10/16/2022. Health Maintenance Topic Date Due Cervical Cancer Screening Never done Diabetes: Retinopathy Screening 06/13/2022 Mammogram 2023 Diabetes: Hemoglobin A1C 02/24/2023 Colorectal Cancer Screening 04/12/2023 Medicare Annual Wellness (AWV) 09/04/2023 Influenza Vaccine Completed Immunization History Administered Date(s) Administered Hep B, adult 02/16/1991, 03/22/1991 Influenza, injectable, MDCK, preservative free, quadrivalent 12/13/2019, 01/07/2021, 12/08/2021, 11/25/2022 Moderna Bivalent Booster Vaccination 04/05/2022 Pfizer Leach Cap SARS-CoV-2 Vaccination 07/05/2021 Pfizer Purple Cap SARS-CoV-2 Vaccination 05/20/2020, 06/10/2020, 12/07/2020 SARS-COV-2 (COVID-19) vaccine, mRNA, spike protein, LNP, bivalent, preservative free, 30 mcg/0.3 mLdose, joana-sucrose formulation 04/05/2022 -Patient's chronic conditions have been reviewed in preparation for this appointment. Protocols reviewed and updated. A collaborative plan of care has been created for pt regarding specific health concerns. Any barriers to care have been identified and addressed. Any part of this document that has been added/copied from other documents has been reviewed for accuracy and updated as appropriate at the time of the patient encounter. -Follow up for Next scheduled follow-up or sooner as needed. Whit Vance NP documented in this encounterOzarks Medical [id number] Evaluation note* Encounter Date Diagnosis Assessment Notes Treatment Notes Treatment Clinical Notes Mar, PAD (peripheral artery disease) (ICD-10 - I73.9) Once again, I had a lengthy conversation with this patient. From a vascular surgery standpoint I donot believe there are any further options available to her for limb salvage. I am recommending a left below the knee amputation. This she has had this wound for over a year now. Although it is currently stable it is not getting better. I do not believe that will get better. 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 She has not unreconstructable disease. Patient wishes for second opinion and I encouraged this. Patient also wants to consider a TMA. I support this decision although I did caution her that there is a very good possibility TMA will not heal either. I will be available for the BKA when she makes her decision. 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 documented in this encounterOzarks Medical [id number] Evaluation note* Encounter Date Diagnosis Assessment Notes Treatment Notes Treatment Clinical Notes Jan, Infection of left foot (ICD-10 - L08.9) BONESUPPORT Other 11-21-2023 Progress note Author CWThanh wallis [facility] February 02, 2023 12:41pmNote Date/TimeNov2022 12:41pmF[place] [address] Podiatry Progress Note Signed Patient: Ema Neff MR#: [id number] : 1965 Acct:[id number] Age/Sex: 58 / F Adm Date: 3 Loc: Room: [address] [place] [address] Type: ADM IN Attending Dr: Ryland Liu MD Copies to: ~ Subjective Subjective Date of Service: Date of Service: 02/02/2023 Time of Service: 12:33 Narrative: Ms. Neff is a 58 year old female who is typically followed by my partner Dr. Torres. She has recently undergone second left toe [...] no further intervention is available. Ischemia is likelycontributing to her lower extremity pain as well. 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.The patient will continue her current wound care [...] <Electronically signed by TERESA Deluna> 02/02/23 1241 [facility] Work Phone: 1(612) 889-610311-21-2023 Progress note Author Zaid Mon [facility] February 02, 2023 12:26pmNote Date/TimeNov2022 12:27pm[place]ris[place] [address] Vascular Surgery Progress Note Signed Patient: Ema Neff MR#: [id number] : 1965 Acct:[id number] Age/Sex: 58 / F Adm Date: 3 Loc: Room: [address] [place] [address] Type: ADM IN Attending Dr: Ryland Liu MD Copies to: ~ Date of Service: 02/02/2023 Subjective Subjective Interval history: This patient was seen on rounds today. Her greeter Dr. Umaña follows in [facility]. She was not really complaining of [...] MPV Neut % (Auto) Lymph % (Auto) [place] % (Auto) Eos % (Auto) Baso % (Auto) Nucleat RBC Rel Count Neut # (Auto) Lymph # (Auto) [place] # (Auto) Eos # (Auto) Baso # [...] MPV Neut % (Auto) Lymph % (Auto) [place] % (Auto) Eos % (Auto) Baso % (Auto) Nucleat RBC Rel Count Neut # (Auto) Lymph # (Auto) [place] # (Auto) Eos # (Auto) Baso # [...] % (Auto) 70.4 Lymph % (Auto) 18.5 [place] % (Auto) 7.3 Eos % (Auto) 3.0 Baso % (Auto) 0.8 Nucleat RBC Rel Count 0.1 Neut # (Auto) 9.1 H Lymph # (Auto) 2.4 [place] # (Auto) 0.9 H Eos # (Auto) [...] MPV Neut % (Auto) Lymph % (Auto) [place] % (Auto) Eos % (Auto) Baso % (Auto) Nucleat RBC Rel Count Neut # (Auto) Lymph # (Auto) [place] # (Auto) Eos # (Auto) Baso # [...] this to her today. I suggest we haveDaysiramilasonido prosthetics and orthotics see the patient in [...] By: <Electronically signed by Zaid Mon MD> 02/02/231225 [facility] Work Phone: 1(218) 154-721011-21-2023 Progress note Author Ryland Liu [facility] February 02, 2023 11:52amNote Date/TimeNov2022 11:47[place] [address] Hospitalist Progress Note Signed Patient: Ema Neff MR#: [id number] : 1965 Acct:[id number] Age/Sex: 58 / F Adm Date: 3 Loc: N Room: [address] [place] [address] Type: ADM IN Attending Dr: Ryland Liu [...] at home. She reports that this has b een her pain regimen over the past 5 [...] Lactated Ringers IV 01/28/24 18:44 75 mls/hr .[id number] PAULINO Administration Vancomycin HCl 1 gm in [...] her pain remains severe at this time. Isuspect hyperalgesia in the setting of chronic opioid [...] follow-up for organism. PT/OT, patient will likely needssm rehab. Will need to wean patient's pain medication to a reasonable regimen before going home Documented By: Ryland Liu MD 3 [id number] Signed By: <Electronically signed by Ryland Liu MD> 02/02/23 1152 [facility] Work Phone: 1(243) 413-976411-21-2023 Progress note Author Rolando Sykes [facility] February 02, 2023 9:08amNote Date/TimeNov2022 9:06[place] [address] Infect. Disease Progress Note Signed Patient: Ema Neff MR#: [id number] : 1965 Acct:[id number] Age/Sex: 58 / F Adm Date: 3 Loc: 4 Room: [address] [place] [address] Type: ADM IN Attending Dr: Ryland Liu MD Copies to: ~ Date of Service: 02/02/2023 Subjective Interval history: Patient did get her PICC line yesterday. She is status post wound debridement of the lesions on thesecond left toe amputation site and dorsal third [...] (Aspirin 81 Mg Tablet.) 81 mg PO [facility] Stop: 01/29/24 08:59 Last Admin: 02/02/23 08:02 Dose: 81 mg Atorvastatin Calcium (Atorvastatin 40 Mg Tablet) 40 mg PO [facility] Stop: 01/29/24 08:59 Last Admin: 02/02/23 08:02 Dose: 40 mg Clopidogrel Bisulfate (Clopidogrel Bisulfate 75 Mg Tablet) 75 mg PO [facility] Stop: 01/29/24 08:59 Last Admin: 02/02/23 08:02 Dose: 75 mg Collagenase (Collagenase 250 Unit/Gm Oint 30 Gm Tube) 1 applic TOPICAL DAILY [facility] Stop: 01/29/24 10:59 Last Admin: 02/02/23 08:04 [...] 100 Mg Capsule) 100 mg PO BID [facility] Stop: 01/28/24 20:59 Last Admin: 02/02/23 08:06 Dose: Not Given Gabapentin (Gabapentin 800 Mg Tablet) 800 mg PO QID [facility] Stop: 01/28/24 21:59 Last Admin: 02/02/23 08:02 Dose: 800 mg Glucose (Dextrose 40% Gel 15 Gm Tube) 0 gm PO PRN PRN PRN Reason: Hypoglycemia Stop: 01/28/24 18:39 Heparin Sodium (Porcine) (Heparin-Lock 500 Unit/5 Ml Syringe) 500 unit IV-PUSH Q24H [facility] Stop: 02/01/24 13:59 Last Admin: 02/01/23 14:59 Dose: Not Given Hydralazine HCl (Hydralazine 20 Mg/Ml Vial) 10 mg IV-PUSH Q4H PRN PRN Reason: Hypertension Stop: 01/28/24 18:39 Hydromorphone HCl (Hydromorphone 1 Mg/Ml Syringe) 1 mg IV-PUSH Q3H PRN PRN Reason: Pain Scale 8 - 10 Last Admin: 02/02/23 07:58 Dose: 1 mg Lactated Ringer's (Lactated Ringers) 1,000 mls @ 75 mls/hr IV .[id number] [facility] Stop: 01/28/24 18:44 Last Admin: 02/02/23 05:46 Dose: 75 mls/hr Piperacillin Sod/Tazobactam Sod (Zosyn) 3.375 gm in 100 mls @ 200 mls/hr IV Q6HSCH Last Admin: 02/02/23 07:57 Dose: 200 mls/hr Vancomycin HCl (Vancomycin) 1 gm in 250 mls @ 250 mls/hr IV Q12H [facility] Last Admin: 02/02/23 05:40 Dose: 250 mls/hr Insulin Aspart (Insulin Aspart 300 Units/3 Ml Insuln.Pen) 0 units SUBCUT TID.WM.[facility]; Protocol Stop: 01/28/24 21:59 Last Admin: 02/02/23 08:02 Dose: 3 units Levothyroxine Sodium (Levothyroxine 150 Mcg Tablet) 150 mcg PO DAILY@0630 [facility] Stop: 01/29/24 06:29 Last Admin: 02/02/23 05:45 Dose: 150 mcg Lidocaine HCl (Lidocaine 1% 50 Ml Vial) 0.1 ml INTRADERMA PREOP PRN PRN Reason: Venipuncture x 1 Dose Loperamide HCl (Loperamide 2 Mg Capsule) 2 mg PO Q2H PRN PRN Reason: Diarrhea Stop: 02/01/24 13:56 Last Admin: 02/02/23 08:05 Dose: 2 mg Losartan Potassium (Losartan 50 Mg Tablet) 50 mg PO [facility] Stop: 01/29/24 08:59 Last Admin: 02/02/23 08:02 Dose: 50 mg Metoprolol Succinate (Metoprolol Succinate 50 Mg Tab.Er.24h) 50 mg PO [facility] Stop: 01/29/24 08:59 Last Admin: 02/02/23 08:06 [...] to predict what potential surgical operative culture collect ed yesterday will grow if discharge is warranted before this information is back could consider just IV vancomycin for a couple week treatment period. May have to adjust choice of antibiotic if culture results suggest different pathogen present. Documented By: Rolando Sykes MD 02/02/23901 Signed By: <Electronically signed by MD Rolando Sykes> 02/02/23907 [facility] Work Phone: 1(319) 851-199711-20-2023 Progress note Author Ryland Liu [facility] February 01, 2023 2:51pmNote Date/TimeNov2022 2:00[place] [address] Hospitalist Progress Note Signed Patient: Ema Neff MR#: [id number] : 1965 Acct:[id number] Age/Sex: 58 / F Adm Date: 3 Loc: 4N Room: [id number] Type: ADM IN Attending Dr: Ryland Liu MD Copies to: ~ Date of Service: 02/01/2023 Subjective Subjective Narrative: Patient seen and assessed after PICC line placed today. She is in reasonably good spirits. She remained afebrile overnight and had no acute events occur. She is planned to have surgical intervention for her L third toe gangrenous- appearing toe. Patient also does complain of persistent [...] Lactated Ringers IV 01/28/24 18:44 75 mls/hr .[id number] [facility]ULINO Administration Piperacillin Sod/Tazobactam Sod 3.375 gm [...] Insuln.Pen SUBCUT 01/28/24 21:59 Not Given TID.WM.HS [facility] Protocol Levothyroxine Sodium 150 mcg 01/29/23 06:30 [...] tomorrow Documented By: Ryland Liu MD 3 4802 Signed By: <Electronically signed by Ryland Liu MD> 02/01/23 1610 [facility] Work Phone: 1(323) 362-223011-20-2023 Procedure [facility]11-20-2023 Procedure [facility]11-20-2023 Progress note Author Rolando Sykes [facility] February 01, 2023 9:00amNote Date/TimeFebruary 01, 2023 9:00[place] [address] Infect. Disease Progress Note Signed Patient: Ema Neff MR#: [id number] : 1965 Acct:[id number] Age/Sex: 58 / F Adm Date: 3 Loc: 4N Room: [address] [place] [address] Type: ADM IN Attending Dr: Casa Givens [...] to touch. Warmth going up the anterior santos. Some stasis changes noted of the santos Neuro General: patient oriented x3 Extrem General: [...] (Aspirin 81 Mg Tablet.) 81 mg PO [facility] Stop: 01/29/24 08:59 Last Admin: 02/01/23 08:25 Dose: 81 mg Atorvastatin Calcium (Atorvastatin 40 Mg Tablet) [facility] Stop: 01/29/24 08:59 Last Admin: 02/01/23 08:25 Dose: 40 mg Clopidogrel Bisulfate (Clopidogrel Bisulfate 75 Mg Tablet) 75 mg PO [facility] Stop: 01/29/24 08:59 Last Admin: 02/01/23 08:35 Dose: 75 mg Collagenase (Collagenase 250 Unit/Gm Oint 30 Gm Tube) 1 applic TOPICAL DAILY [facility] Stop: 01/29/24 10:59 Last Admin: 02/01/23 08:28 Dose: 1 applic Sodium Chloride 500 ml/ (Cefazolin Sodium 1 gm) 0 ml IRRIGATION ONCE ONE Stop: 02/01/23 17:01 Dextrose (Dextrose 50% In Water 25 Gm/50 Ml Syringe) 0 gm IV-PUSH PRN PRN PRN Reason: Hypoglycemia Stop: 01/28/24 18:39 Last Admin: 01/29/23 05:35 Dose: 25 gm Docusate Sodium (Docusate 100 Mg Capsule) 100 mg PO BID [facility] Stop: 01/28/24 20:59 Last Admin: 02/01/23 08:28 Dose: Not Given Gabapentin (Gabapentin 800 Mg Tablet) 800 mg PO QID [facility] Stop: 01/28/24 21:59 Last Admin: 02/01/23 08:25 [...] Ringers) 1,000 mls @ 75 mls/hr IV .[id number] [facility] Stop: 01/28/24 18:44 Last Admin: 02/01/23 08:23 Dose: 75 mls/hr Piperacillin Sod/Tazobactam Sod (Zosyn) 3.375 gm in 100 mls @ 200 mls/hr IV Q6HS Last Admin: 02/01/23 08:35 Dose: 200 mls/hr Vancomycin HCl (Vancomycin) 1 gm in 250 mls @ 250 mls/hr IV Q12H [facility] Last Admin: 02/01/23 05:56 Dose: 250 mls/hr Lactated Ringer's (Lactated Ringers) 1,000 mls @ 20 mls/hr IV .Q24H ONE Stop: 02/02/23 07:59 Last Admin: 02/01/23 08:24 Dose: Not Given Insulin Aspart (Insulin Aspart 300 Units/3 Ml Insuln.Pen) 0 units SUBCUT TID.WM.HS [facility]; Protocol Stop: 01/28/24 21:59 Last Admin: 02/01/23 08:21 Dose: Not Given Levothyroxine Sodium (Levothyroxine 150 Mcg Tablet) 150 mcg PO DAILY@0630 [facility] Stop: 01/29/24 06:29 Last Admin: 02/01/23 05:56 Dose: 150 mcg Lidocaine HCl (Lidocaine 1% 50 Ml Vial) 0.1 ml INTRADERMA PREOP PRN PRN Reason: Venipuncture x 1 Dose Losartan Potassium (Losartan 50 Mg Tablet) 50 mg PO [facility] Stop: 01/29/24 08:59 Last Admin: 02/01/23 08:25 Dose: 50 mg Metoprolol Succinate (Metoprolol Succinate 50 Mg Tab.Er.24h) 50 mg PO [facility] Stop: 01/29/24 08:59 Last Admin: 02/01/23 08:25 [...] healing has to be considered given the resultsof her vascular study. Ultimately feel that if [...] signed by MD Rolando Sykes> 02/01/23 0900 [facility] Work Phone: 1(271) 999-919111-19-2023 Progress note Author Casa Givens [facility] January 31, 2023 4:03pmNote Date/TimeNov2022 4:02[place] [address] Hospitalist Progress Note Signed Patient: Ema Neff MR#: [id number] : 1965 Acct:[id number] Age/Sex: 58 / F Adm Date: 3 Loc: 4N Room: [id number] Type: ADM IN Attending Dr: Casa Givens [...] due to chronic venous stasis skin changes andPVD MSK: no edema Objective Lab Results 01/31/23 [...] Jamesq PRN Reason Stop Dose Admin Acetaminophen 650 [...] Lactated Ringers IV 01/28/24 18:44 75 mls/hr .[id number] PA[facility]INO Administration Piperacillin Sod/Tazobactam Sod 3.375 gm [...] Insuln.Pen SUBCUT 01/28/24 21:59 Not Given TID.WM.HS [facility] Protocol Levothyroxine Sodium 150 mcg 01/29/23 06:30 [...] signed by Casa Givens DO> 01/31/23 1603 [facility] Work Phone: 1([phone]) 946-303811-19-2023 Progress note Author CWThanh wallis [facility] January 31, 2023 12:58pmNote Date/TimeNov2022 12:27[place] [address] Podiatry Progress Note Signed Patient: Ema Neff MR#: [id number] : 1965 Acct:[id number] Age/Sex: 58 / F Adm Date: 3 Loc: Room: [address] [place] [address] Type: ADM IN Attending Dr: Casa Givens DO Copies to: ~ Subjective Subjective Date of Service: Date of Service: 01/31/2023 Time of Service: 12:25 Narrative: Ms. Neff is a 58 year old female who is typically followed by my partner Dr. Torres. She has recently undergone second left toe [...] no further intervention is available. Ischemia is likelycontributing to her lower extremity pain as well. [...] report pulmonary report indicates light growth of corynebacteriumstriatum. X-rays did not reveal obvious erosivechanges suggestive of osteomyelitis. MRI study was completed and was somewhat compromised by motion artifact. No abscesses were noted and no bone marrowedema was noted within the underlying osseous structures [...] the treatment options with patientat length. She wouldlike to pursue wound further wound care at [...] Advised patient that upon discharge, I would recommendcompounded nifedipine gelfrom [facility] which can be used around her wounds to try to increase blood flow and promote further healing. Apparently this option was presented to her in the past but she did not wish to pay the jvf-za-ebubyo cost for this medication. She is reconsidering this option at this time and we will contact [employer] with regards to the cost. Her questions [...] will be clear from a podiatric standpoint f or discharge with continued wound care at home [...] By: <Electronically signed by TERESA Deluna> 01/31/23 1258 [facility] Work Phone: 1([phone]) 609-356911-18-2023 Progress note Author AUTUMN wallis [facility] January 30, 2023 3:13pmNote Date/TimeNov2022 2:59[place] [address] Podiatry Progress Note Signed Patient: Ema Neff MR#: [id number] : 1965 Acct:[id number] Age/Sex: 58 / F Adm Date: 3 Loc: 4 Room: [address] [place] [address] Type: ADM IN Attending Dr: Casa Givens DO Copies to: ~ Subjective Subjective Date of Service: Date of Service: 01/30/2023 Time of Service: 14:57 Narrative: Ms. Neff is a 58 year old female who is typically followed by my partner Dr. Torres. She has recently undergone second left toe [...] no further intervention is available. Ischemia is likelycontributing to her lower extremity pain as well. She deniesany fever or chills. She feels that sheis somewhat better today particularly with regard to [...] the treatment options with patientat length. She wouldlike to pursue wound further wound care at [...] patient Iwould recommend compounded nifedipine gel from [employer] which can be used around her wounds to try to increase blood flow and promote further healing. Apparently this option was presented to her in the past but she did not wish to pay the pry-mn-krwugw cost for this medication. She is reconsidering this option at this time and we will contact [employer] with regards to the cost. Her questions [...] polyneuropathy Documented By: Ayan Deluna DPM, AUTUMN 1457 Signed By: <Electronically signed by TERESA Deluna> 01/30/23 [facility] Work Phone: [phone]) 607-142011-18-2023 Progress note Author Casa Givens [facility] January 30, 2023 2:40pmNote Date/TimeNov2022 2:40[place] [address] Hospitalist Progress Note Signed Patient: Ema Neff MR#: [id number] : 1965 Acct:[id number] Age/Sex: 58 / F Adm Date: 3 Loc: 4N Room: [id number] Type: ADM IN Attending Dr: Casa Givens [...] due to chronic venous stasis skin changes andPVD MSK: no edema Objective Lab Results 01/30/23 [...] 01/29/23 09:00 01/30/23 08:15 Aspirin 81 Mg Tablet.Dr PO 01/29/24 08:59 [...] Tube TOPICAL 01/29/24 10:59 Not Given DAILY [facility] Sodium Chloride 500 ml/ 0 ml 02/01/23 [...] Lactated Ringers IV 01/28/24 18:44 75 mls/hr .[id number] PAULINO Administration Vancomycin HCl 1.25 gm/ 275 [...] signed by Casa Givens DO> 01/30/23 1440 [facility] Work Phone: [phone] 267-770711-17-2023 Consult note Author AUTUMN wallis [facility] January 29, 2023 3:40pmNote Date/TimeNov2022 3:24pmMatthew [place] [id number] Podiatry Consult Note Signed Patient: Ema Neff MR#: [id number] : 1965 Acct:[id number] Age/Sex: 58 / F Adm Date: 3 Loc: 4N Room: 6I0086-3 Type: ADM IN Attending Dr: Casa Givens DO Copies to: Ayan Deluna DPM, CWDO Jarvis Antonio MD~ HPI Data of Consult Consult Date: 01/29/23 Requesting Physician: Casa Givens DO Primary Care Provider: Jarvis Thrasher MD Consult Narrative Reason for consult: Gangrenous wound third left toe History of present illness: Ms. Neff is a 58 year old female who is typically followed by my partner Dr. Torres. She has recently undergone second left toe [...] and no additional complaints, except as documented [facility] Medical History (Updated 01/29/23 @ 15:35 [...] obvious erosive changes suggestive of osteomyelitis. MRI studyis pending. Results Labs 01/29/23 05:11 01/29/23 05:11 [...] on how the toe progresses over the weekend.Wound debridement could be performed and wound care [...] closure for this procedure. These options were presentedto the patient along with the potential risks and complications which she is familiar with from herprevious procedures. Her questions were answered to her [...] <Electronically signed by TERESA Deluna> 01/29/23 1540 [facility] Work Phone: [phone]) 217-795611-17-2023 Progress note Author Casa Givens [facility] January 29, 2023 3:08pmNote Date/TimeNov2022 3:08pm[place] [address] Hospitalist Progress Note Signed Patient: Ema Neff MR#: [id number] : 1965 Acct:[id number] Age/Sex: 58 / F Adm Date: 3 Loc: Room: [address] [place] [address] Type: ADM IN Attending Dr: Casa Givens [...] due to chronic venous stasis skin changes andPVD MSK: no edema Objective Lab Results 01/29/23 [...] Lactated Ringers IV 01/28/24 18:44 75 mls/hr .[id number] PAULINO Administration Vancomycin HCl 1.25 gm/ 275 [...] Insuln.Pen SUBCUT 01/28/24 21:59 Not Given TID.WM.HS [facility] Protocol Levothyroxine Sodium 150 mcg 01/29/23 06:30 [...] signed by Casa Givens DO> 01/29/23 1508 [facility] Work Phone: [phone] 957-404411-17-2023 Progress note Author Zaid Mon [facility] January 29, 2023 1:11pmNote Date/TimeNovember 2022 1:09pm[place] [address] Vascular Surgery Progress Note Signed Patient: Ema Neff MR#: [id number] : 1965 Acct:[id number] Age/Sex: 58 / F Adm Date: 3 Loc: 4N Room: [address] [place] [address] Type: ADM IN Attending Dr: Casa Givens DO Copies to: ~ Date of Service: 01/29/2023 Subjective Subjective Interval history: This pleasant patient was seen on rounds. She has a left foot wound. Her left second toe amputationsite is still not healed. She now has a new area of gangrene of the left third toe. She lacks pedalpulses on clinical exam. The patient states that [...] % (Auto) 73.6 Lymph % (Auto) 19.7 Woodford % (Auto) 5.0 Eos % (Auto) 0.4 Baso % (Auto) 1.3 Nucleat RBC Rel Count 0.1 Neut # (Auto) 9.5 H Lymph # (Auto) 2.5 Woodford # (Auto) 0.6 Eos # (Auto) 0.1 [...] % (Auto) 65.5 Lymph % (Auto) 25.2 Woodford % (Auto) 7.2 Eos % (Auto) 1.5 Baso % (Auto) 0.6 Nucleat RBC Rel Count 0.1 Neut # (Auto) 8.2 H Lymph # (Auto) 3.2 Woodford # (Auto) 0.9 H Eos # (Auto) [...] MPV Neut % (Auto) Lymph % (Auto) Woodford % (Auto) Eos % (Auto) Baso % (Auto) Nucleat RBC Rel Count Neut # (Auto) Lymph # (Auto) Woodford # (Auto) Eos # (Auto) Baso # [...] MPV Neut % (Auto) Lymph % (Auto) Woodford % (Auto) Eos % (Auto) Baso % (Auto) Nucleat RBC Rel Count Neut # (Auto) Lymph # (Auto) Woodford # (Auto) Eos # (Auto) Baso # [...] tibial peroneal artery done about a year agoby myself. We will also investigate and see if that is patent. The. The purpose of that bypass was to take advantage of the better peroneal runoff at the ankle level in the foot since her AT occludeddistally. This patient remains at high risk for limb loss. The risks and benefits were explained aswell as medical surgical tenderness. We also discussed potential complications as well as the management. She is well aware of these and she understands and agrees to the procedure today. Consent wasobtained. She has had this multipletimes in the past. Code(s): E11.621 - Type 2 diabetes mellitus with foot ulcer; L97.509 - Non-pressure chronic ulcer of other part of unspecified foot with unspecified severity Status: Acute Documented By: Zaid Mon MD 01/29/23 1305 Signed By: <Electronically signed by Zaid Mon MD> 01/29/23 1311 [facility] Work Phone: 1([phone]) 263-311811-17-2023 Consult note Author Rolando Sykes [facility] January 29, 2023 11:28amNote Date/TimeNovember 2022 11:24[place] [address] Infect. Disease Consult Note Signed Patient: Ema Neff MR#: [id number] : 1965 Acct:[id number] Age/Sex: 58 / F Adm Date: 3 Loc: 4 Room: 3E3141-4 Type: ADM IN Attending Dr: Casa Givens [...] a year ago. She continues to follow withDrValentina Sierra's due to a small ulceration atthe previous surgical site but generally states it [...] negative unless noted below or in HPI [facility] Medical History Anxiety Arthritis Back pain [...] (Aspirin 81 Mg Tablet.) 81 mg PO QAM [facility] Stop: 01/29/24 08:59 Last Admin: 01/29/23 09:04 Dose: 81 mg Atorvastatin Calcium (Atorvastatin 40 Mg Tablet) 40 mg PO QAM [facility] Stop: 01/29/24 08:59 Last Admin: 01/29/23 09:04 Dose: 40 mg Clopidogrel Bisulfate (Clopidogrel Bisulfate 75 Mg Tablet) 75 mg PO QAM [facility] Stop: 01/29/24 08:59 Last Admin: 01/29/23 09:04 Dose: 75 mg Collagenase (Collagenase 250 Unit/Gm Oint 30 Gm Tube) 1 applic TOPICAL DAILY [facility] Stop: 01/29/24 10:59 Dextrose (Dextrose 50% In Water 25 Gm/50 Ml Syringe) 0 gm IV-PUSH PRN PRN PRN Reason: Hypoglycemia Stop: 01/28/24 18:39 Last Admin: 01/29/23 05:35 Dose: 25 gm Docusate Sodium (Docusate 100 Mg Capsule) 100 mg PO BID [facility] Stop: 01/28/24 20:59 Last Admin: 01/29/23 09:04 Dose: 100 mg Gabapentin (Gabapentin 800 Mg Tablet) 800 mg PO QID [facility] Stop: 01/28/24 21:59 Last Admin: 01/29/23 09:04 [...] Ringers) 1,000 mls @ 75 mls/hr IV .[id number] [facility] Stop: 01/28/24 18:44 Last Admin: 01/28/23 22:43 Dose: 75 mls/hr Vancomycin HCl 1.25 gm/ (Dextrose) 275 mls @ 183.333 mls/hr IV Q12H [facility] Stop: 01/29/24 06:29 Last Admin: 01/29/23 05:53 Dose: 183.33 mls/hr Piperacillin Sod/Tazobactam Sod (Zosyn) 3.375 gm in 100 mls @ 200 mls/hr IV Q6HSCH Last Admin: 01/29/23 09:03 Dose: 200 mls/hr Insulin Aspart (Insulin Aspart 300 Units/3 Ml Insuln.Pen) 0 units SUBCUT TID..[facility]; Protocol Stop: 01/28/24 21:59 Last Admin: 01/29/23 09:03 Dose: Not Given Levothyroxine Sodium (Levothyroxine 150 Mcg Tablet) 150 mcg PO DAILY@0630 [facility] Stop: 01/29/24 06:29 Last Admin: 01/29/23 05:36 Dose: 150 mcg Losartan Potassium (Losartan 50 Mg Tablet) 50 mg PO [facility] Stop: 01/29/24 08:59 Last Admin: 01/29/23 09:04 Dose: 50 mg Metoprolol Succinate (Metoprolol Succinate 50 Mg Tab.Er.24h) 50 mg PO [facility] Stop: 01/29/24 08:59 Last Admin: 01/29/23 [...] to touch. Warmth going up the anterior santos. Some stasis changes noted of the santos Neuro General: patient oriented x3 Extrem General: [...] signed by MD Rolando Sykes> 01/29/23 1128 [facility] Work Phone: 1([phone]) 983-509911-17-2023 Procedure [facility]11-17-2023 Procedure [facility]11-16-2023 History and physical note Author Casa Givens [facility] January 28, 2023 7:18pmNote Date/TimeNov2022 7:14pm[place] [address] Hospitalist H&P Signed Patient: Ema Neff MR#: [id number] : 1965 Acct:[id number] Age/Sex: 58 / F Adm Date: 3 Loc: 4N Room: [address] [place] [address] Type: ADM IN Attending Dr: Casa Givens [...] week ago, she dropped her phone onher L3rd toe and states the impact from the [...] of days due tothe pain, but otherwise deniesfevers, chills, cough, congestion, sob, palpitations, cp, abd pain, N/V/D. In the ED, vitals stable, afebrile. Labs largely unremarkable. XR of the L foot with cellulitis changes but no definitiveOM noted. Blood and foot cultures were drawn. Pt was given IV abx in the ED. ED spoke with podiatry whorecommended admission to rule out OM given the gangrenous appearance and gas noted on palpation. Ptadmitted for L 3rd toe gangrene and to rule out OM. Podiatry and ID consulted. MRI ordered. Review of Systems Review of Systems All other systems reviewed & are negative unless noted below or in HPI [facility] Medical History (Updated 01/28/23 @ 18:41 [...] due to chronic venous stasis skin changes andPVD MSK: no edema Neurologic: No focal deficits [...] % (Auto) 19.7 % (.) 01/28/23 16:30 Woodford % (Auto) 5.0 % (.) 01/28/23 16:30 Eos % (Auto) 0.4 % (.) 01/28/23 16:30 Baso % (Auto) 1.3 % (.) 01/28/23 16: Nucleat RBC Rel Count 0.1 /100 WBC (0-0.5) 01/28/23 16:30 Neut # (Auto) 9.5 x10E3/uL (1.8-7.7) H 01/28/23 16:30 Lymph # (Auto) 2.5 x10E3/uL (1.00-4.8) 01/28/23 16:30 Woodford # (Auto) 0.6 x10E3/uL (0.0-0.8) 01/28/23 16:30 [...] gangrene with surrounding cellulitis.MRI to rule out OM.ID, vascular surgery and podiatry consulted. Cont empiric abx. Follow cultures. Pt/OT when able IP vs OBS Justification Based on differential dx, clinical care plan, and risk of adverse events, if untreated, in my clinical judgement this patient requires an acute care setting as: INPATIENT because of an expectation ofan over 2 midnight stay. Estimated length of stay (# of days): 5 Time Spent With Patient (min): 45 Documented By: Casa Givens DO 01/28/23 190 5 Signed By: <Electronically signed by Casa Givens DO> 01/28/231917 [facility] Work Phone: 1(114) 669-893111-15-2023 Progress note Author Zaid Mon [facility] January 29, 2023 1:11pmNote Date/TimeNovember 2022 1:09pm[place] [address] Vascular Surgery Progress Note Signed Patient: Ema Neff MR#: [id number] : 1965 Acct:[id number] Age/Sex: 58 / F Adm Date: 3 Loc: 4N Room: [address] [place] [address] Type: ADM IN Attending Dr: Casa Givens DO Copies to: ~ Date of Service: 01/29/2023 Subjective Subjective Interval history: This pleasant patient was seen on rounds. She has a left foot wound. Her left second toe amputationsite is still not healed. She now has a new area of gangrene of the left third toe. She lacks pedalpulses on clinical exam. The patient states that [...] % (Auto) 73.6 Lymph % (Auto) 19.7 [place] % (Auto) 5.0 Eos % (Auto) 0.4 Baso % (Auto) 1.3 Nucleat RBC Rel Count 0.1 Neut # (Auto) 9.5 H Lymph # (Auto) 2.5 [place] # (Auto) 0.6 Eos # (Auto) 0.1 [...] % (Auto) 65.5 Lymph % (Auto) 25.2 [place] % (Auto) 7.2 Eos % (Auto) 1.5 Baso % (Auto) 0.6 Nucleat RBC Rel Count 0.1 Neut # (Auto) 8.2 H Lymph # (Auto) 3.2 [place] # (Auto) 0.9 H Eos # (Auto) [...] MPV Neut % (Auto) Lymph % (Auto) [place] % (Auto) Eos % (Auto) Baso % (Auto) Nucleat RBC Rel Count Neut # (Auto) Lymph # (Auto) [place] # (Auto) Eos # (Auto) Baso # [...] MPV Neut % (Auto) Lymph % (Auto) [place] % (Auto) Eos % (Auto) Baso % (Auto) Nucleat RBC Rel Count Neut # (Auto) Lymph # (Auto) [place] # (Auto) Eos # (Auto) Baso # [...] tibial peroneal artery done about a year agoby myself. We will also investigate and see if that is patent. The. The purpose of that bypass was to take advantage of the better peroneal runoff at the ankle level in the foot since her AT occludeddistally. This patient remains at high risk for limb loss. The risks and benefits were explained aswell as medical surgical tenderness. We also discussed potential complications as well as the management. She is well aware of these and she understands and agrees to the procedure today. Consent wasobtained. She has had this multipletimes in the past. Code(s): E11.621 - Type 2 diabetes mellitus with foot ulcer; L97.509 - Non-pressure chronic ulcer of other part of unspecified foot with unspecified severity Status: Acute Documented By: Zaid Mon MD 01/29/23 1305 Signed By: <Electronically signed by Zaid Mon MD> 01/29/23 1311 [facility] Work Phone: 1(338) 624-817610-20-2023 History of Present illness Narrative* Sandra Goetz MD - 01/01/2023 12:30 PM EDT [...] and agree with all ofits relevant components. Sandra Goetz MD Vitreoretinal Surgery [facility] History of Present illness Narrative* Sandra Goetz MD - 12/04/2022 12:45 PM EDT [...] and agree with all ofits relevant components. Sandra Goetz MD Vitreoretinal Surgery [facility] documented in this encounterA[facility]08-30-2023 Evaluation note* Encounter Date Diagnosis Assessment Notes Treatment Notes Treatment Clinical Notes Oct, Diabetes mellitus du e to underlying condition with foot ulcer (ICD- 10 - E08.621) Oct,Non-pressure chronic ulcer of other part of right foot with fat layer exposed (ICD-10 - L97.512)This patient is doing okay from our standpoint. [...] converting these wounds to her acute wounds. Oct,OtherPatient was concerned with palpable lump on the lower left leg which appears to be some scarring byphysical exam and ultrasound findings. She does not have a DVT. There are no areas of concern here.She has had extensive endovascular intervention bilaterally as well as left leg bypass now. 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 She continues to struggle to heal the wounds on her distal feet from toe amputation. She continues to follow with podiatry routinely. We will continue to follow along with them in her wound healing process. Sheis due for a left leg [facility] Other 02-16-2023 Evaluation note* Encounter Date Diagnosis Assessment Notes Treatment Notes Treatment Clinical Notes Apr, PAD (peripheral artery disease) (ICD-10 - I73.9) I did review the arterial graft duplex on her bypass of left lower extremity and her ABIs. Her ABIsare normal. Her wound is healing. The operative incisional site is completely healed at this point.I am pleased with her care we will see her back in 3 months for continued surveillance of her bypass. All her questions were addressed she understands agrees with plan. [facility] Other 10-18-2022 Progress note Author CWThanh wallis [facility] December 30, 2021 1:54pmNote Date/TimeOct2021 1:54pm[place] [address] Podiatry Progress Note Signed Patient: Ema Neff MR#: [id number] : 1965 Acct:[id number] Age/Sex: 56 / F Adm Date: 2 Loc: Room: [address] [place] [address] Type: ADM IN Attending Dr: Fredy Patricia MD Copies to: ~ Subjective Subjective Date of Service: Date of Service: 12/30/2021 Time of Service: 13:50 Narrative: Ms. Neff is a 56 year old female who is typically followed by my partner Dr. Torres. She has recently undergone second left toe [...] temperature gradient is warm to cool. No significantedema noted today. Neurological: Absent vibratory sensation at the first MP joint bilaterally. Decreased light touch sensation distal to the midfoot bilaterally Dermatological: Skin is thinning with diminished hair growth bilaterally. No hyperkeratotic lesionsare noted. Patient has history of second toe [...] present. Only the wound at the recent secondleft toe amputation site remains tender, and patient reports the symptoms are improving with this wound is well. The painful sensitivity of her wounds has been something she has been dealing with irene extended period of time. There is wound [...] now and no evidence of subcutaneous abscess wasnoted. There is no evidence of osteomyelitis noted. [...] nifedipine gel which is [facility] treatment regimen to improve blood flow at the local level surrounding the left foot wounds. I will discuss this with Dr. Torres who will be following up with the patient upon her discharge whichmay happen as early astoday. The patient is cleared from a podiatric standpoint for discharge with c ontinued antibiotic therapy as recommended by Dr. Sykes and current home care dressing changes as previously ordered by Dr. Torres. Patient is advised to follow-up with Dr. [...] toe(s) Documented By: Ayan Deluna DPM, AUTUMN 1350 Signed By: <Electronically signed by TERESA Deluna> 12/30/21 135 [facility] Work Phone: 1([phone]) 547-789910-18-2022 Hospital Discharge instructionsAmbulatory Orders* Initiate Home Health [...] *Settings: Continuous 125 mmHg pressure *Change on Mon, Weds, Wed and [facility] Work Phone: 1([phone]) 850-289510-18-2022 Progress note Author Rolando Sykes [facility] December 30, 2021 9:02amNote Date/TimeOct2021 9:02[place] [address] Infect. Disease Progress Note Signed Patient: Ema Neff MR#: [id number] : 1965 Acct:[id number] Age/Sex: 56 / F Adm Date: 2 Loc: Room: [address] [place] [address] Type: ADM IN Attending Dr: Fredy Patricia [...] normal bowel sounds Skin Other: Left anterior santos with VAC; surrounding erythema Left foot wrapped [...] QHS PAULINO Stop: 12/26/22 22:44 Last Admin: 12/29/21 22:22 Dose: Not Given Bisacodyl (Bisacodyl 5 Mg Tablet.) 10 mg [...] Dose: Not Given Fluticasone Propionate (Fluticasone Propionate [place] 120 [place]/16 Gm Bottle) 1 spray INTRANASAL QHSPRN PRN Reason: Nasal Congestion Stop: 12/26/22 20:54 Gabapentin (Gabapentin 800 Mg Tablet) 800 mg PO QID PAULINO Stop: 12/26/22 22:44 Last Admin: 12/30/21 08:20 [...] 250 mls @ 250 mls/hr IV Q12H [facility] Last Admin: 12/30/21 08:16 Dose: 250 mls/hr Cefepime HCl (Maxipime) 2 gm in 50 mls @ 100 mls/hr IV Q8H [facility] Last Admin: 12/30/21 06:09 Dose: 100 mls/hr Insulin Aspart (Insulin Aspart 300 Units/3 Ml Insuln.Pen) 0 units SUBCUT TID.[facility]; Protocol Stop: 12/26/22 21:59 Last Admin: 12/30/21 08:16 Dose: Not Given Levothyroxine Sodium (Levothyroxine 150 Mcg Tablet) 150 mcg PO DAILY@0630 [facility] Stop: 12/27/22 06:29 Last Admin: 12/30/21 06:08 Dose: 150 mcg Losartan Potassium (Losartan 50 Mg Tablet) 50 mg PO QAM [facility] Stop: 12/27/22 08:59 Last Admin: 12/30/21 08:20 Dose: 50 mg Meloxicam (Meloxicam *Nf* 7.5 Mg Tablet) 15 mg PO DAILY [facility] Stop: 12/27/22 08:59 Last Admin: 12/30/21 08:19 Dose: 15 mg Metoprolol Succinate (Metoprolol Succinate 50 Mg Tab.Er.24h) 50 mg PO DAILY [facility] Stop: 12/27/22 08:59 Last Admin: 12/30/21 08:20 Dose: 50 mg Nystatin (Nystatin 100,000 Unit/Gm Oint 15 Gm Tube) 1 applic TOPICAL TID PRN PRN Reason: rash Stop: 12/26/22 20:54 Ondansetron HCl (Ondansetron 4 Mg/2 Ml Vial) 4 mg IV-PUSH Q8H PRN PRN Reason: Nausea And Vomiting Stop: 12/26/22 20:55 Oxycodone/Acetaminophen (Oxycodone/Acetaminophen 5-325 Mg Tablet) 4 tab PO BID [facility] Last Admin: 12/30/21 08:20 Dose: 4 tab [...] on discharge. Documented By: Rolando Sykes MD 12/30/2158 Signed By: <Electronically signed by MD Rolando Sykes> 12/30/21 0902 [facility] Work Phone: 1(203) 565-413410-18-2022 Progress note Author Fredy Patricia [facility] December 30, 2021 2:19amNote Date/TimeOctober 2021 12:45pm[place] [address] Hospitalist Progress Note Signed Patient: Ema Neff MR#: [id number] : 1965 Acct:[id number] Age/Sex: 56 / F Adm Date: 2 Loc: Room: [address] [place] [address] Type: ADM IN Attending Dr: Fredy Patricia [...] Syringe SUBCUT 12/29/22 09:59 Not Given DAILY@1000 [facility] Fluticasone Propionate 1 spray 12/26/21 20:55 Fluticasone Propionate [place]/16 Gm Bottle INTRANASAL 12/26/22 20:54 QHS PRN [...] Insuln.Pen SUBCUT 12/26/22 21:59 Not Given TID.WM.HS [facility] Protocol Levothyroxine Sodium 150 mcg 12/27/21 06:30 [...] (3) Diabetes mellitus: Plan . Documented By: rFedy Patricia MD 12/29/21 2853 Signed By: <Electronically signed by Fredy Patricia MD> 12/30/21 0302 [facility] Work Phone: 1(139) 983-639610-17-2022 Progress note Author CWThanh wallis [facility] December 29, 2021 8:30pmNote Date/TimeOct2021 8:30pm[place] [address] Podiatry Progress Note Signed Patient: Ema Neff MR#: [id number] : 1965 Acct:[id number] Age/Sex: 56 / F Adm Date: 2 Loc: Room: [address] [place] [address] Type: ADM IN Attending Dr: Fredy Patricia MD Copies to: ~ Subjective Subjective Date of Service: Date of Service: 12/29/2021 Time of Service: 20:19 Narrative: Ms. Neff is a 56 year old female who is typically followed by my partner Dr. Torres. She has recently undergone second left toe [...] temperature gradient is warm to cool. No significantedema noted today. Neurological: Absent vibratory sensation at the first MP joint bilaterally. Decreased light touch sensation distal to the midfoot bilaterally Dermatological: Skin is thinning with diminished hair growth bilaterally. No hyperkeratotic lesionsare noted. Patient has history of second toe [...] notes that it is granulating very nicely. Patientis afebrile and her white blood cell count [...] adding nifedipine gel which is compounded at [facility] to her treatment regimen to improve blood flow at the local level surrounding the left foot wounds. I will discuss this with Dr. Torres who will be following up with the patient upon her discharge. If the patient continues to improve she will be cleared from a podiatric standpoint for discharge with continued antibiotic therapy as recommended by Dr. Sykes and current home care dressing changes as previously ordered by Dr. Torres. Code(s): E11.621 - Type 2 diabetes mellitus [...] toe(s) Documented By: Ayan Deluna DPM, CWS 2018 Signed By: <Electronically signed by TERESA Deluna> 12/29/212029 [facility] Work Phone: [phone] 247-837810-17-2022 Consult note Author Zaid Mon [facility] December 29, 2021 3:58pmNote Date/TimeOct2021 1:53pmFris[place] [address] Vascular Surgery Consult Note Signed Patient: Ema Neff MR#: [id number] : 1965 Acct:[id number] Age/Sex: 56 / F Adm Date: 2 Loc: Room: 5A0938-7 Type: ADM IN Attending Dr: Fredy Patricia MD Copies to: NAOMI Easton MD Matthew T Langenberg, MD [facility], [...] wound VAC present to the left anterior santos andher left foot dressing is clean, dry, and [...] MPV Neut % (Auto) Lymph % (Auto) [place] % (Auto) Eos % (Auto) Baso % (Auto) Neut # (Auto) Lymph # (Auto) [place] # (Auto) Eos # (Auto) Baso # [...] % (Auto) 55.9 Lymph % (Auto) 30.7 [place] % (Auto) 7.7 Eos % (Auto) 4.8 Baso % (Auto) 0.9 Neut # (Auto) 5.3 Lymph # (Auto) 2.9 [place] # (Auto) 0.7 Eos # (Auto) 0.5 [...] MPV Neut % (Auto) Lymph % (Auto) [place] % (Auto) Eos % (Auto) Baso % (Auto) Neut # (Auto) Lymph # (Auto) [place] # (Auto) Eos # (Auto) Baso # [...] offer her and we will continue to manageand watch her conservatively. She understands agrees the plan all her questions were addressed we will see her as an outpatient in the office. Code(s): I73.9 - Peripheral vascular disease, unspecified Status: Acute (3) Diabetes mellitus: Qualifiers: Diabetes mellitus type: type 2 Code(s): E11.9 - Type 2 diabetes mellitus without complications Status: Chronic Documented By: Edith Scott APRN 12/29/21 0 751 Signed By: <Electronically signed by NAOMI Scott> 12/29/21 1353 <Electronically signed by Zaid Mon MD> 12/29/21 1558 [facility] Work Phone: 1([phone]) 236-817510-17-2022 Consult note Author Rolando Sykes [facility] December 29, 2021 11:03amNote Date/TimeOct2021 11:03[place] [id number] Infect. Disease Consult Note Signed Patient: Ema Neff MR#: [id number] : 1965 Acct:[id number] Age/Sex: 56 / F Adm Date: 2 Loc: Room: [address] [place] [address] Type: ADM IN Attending Dr: Hailee Berg [...] a wound VAC over the left anterior santos. Shehas had surgery on the left foot as well for which concern over infection due toerythema that occurred at the surgical site prompted IV antibiotics to be sta rted. This is reason consulted. Patient was recently on outpatient Linezolid. Most recent culture from the left foot drainage is positive for Pseudomonas aeruginosa. We are waiting on MRI. Patient complains of pain at the site itself. Denies fevers or chills CC: Hailee Berg, DO Review of Systems Review of Systems All other systems reviewed & are negative unless noted below or in HPI [facility] Attestation Statement: The following information was [...] 50 Mg Tablet) 50 mg PO HS [facility] Stop: 12/26/22 22:44 Last Admin: 12/28/21 21:23 [...] Mg/0.4 Ml Syringe) 40 mg SUBCUT DAILY@1000 [facility] Stop: 12/29/22 09:59 Last Admin: 12/29/21 10:35 Dose: Not Given Fluticasone Propionate (Fluticasone Propionate [place]/16 Gm Bottle) 1 spray INTRANASAL QHSPRN PRN Reason: Nasal Congestion Stop: 12/26/22 20:54 Gabapentin (Gabapentin 800 Mg Tablet) 800 mg PO QID [facility] Stop: 12/26/22 22:44 Last Admin: 12/29/21 08:39 Dose: 800 mg Glimepiride (Glimepiride 4 Mg Tablet) 4 mg PO DAILY@0800 [facility] Stop: 12/27/22 07:59 Last Admin: 12/29/21 08:39 [...] 50 mls @ 100 mls/hr IV Q12H [facility] Last Admin: 12/29/21 01:07 Dose: 100 mls/hr Vancomycin HCl (Vancomycin) 0.75 gm in 250 mls @ 250 mls/hr IV Q12H [facility] Last Infusion: 12/29/21 09:38 Dose: Infused Insulin Aspart (Insulin Aspart 300 Units/3 Ml Insuln.Pen) 0 units SUBCUT TID.WM.HS [facility]; Protocol Stop: 12/26/22 21:59 Last Admin: 12/29/21 07:42 Dose: Not Given Levothyroxine Sodium (Levothyroxine 150 Mcg Tablet) 150 mcg PO DAILY@0630 [facility] Stop: 12/27/22 06:29 Last Admin: 12/29/21 06:36 Dose: 150 mcg Losartan Potassium (Losartan 50 Mg Tablet) 50 mg PO QAM [facility] Stop: 12/27/22 08:59 Last Admin: 12/29/21 08:39 Dose: 50 mg Meloxicam (Meloxicam *Nf* 7.5 Mg Tablet) 15 mg PO DAILY [facility] Stop: 12/27/22 08:59 Last Admin: 12/29/21 10:26 Dose: 15 mg Metoprolol Succinate (Metoprolol Succinate 50 Mg Tab.Er.24h) 50 mg PO DAILY [facility] Stop: 12/27/22 08:59 Last Admin: 12/29/21 08:39 Dose: 50 mg Non-Formulary Medication (Semaglutide [Ozempic]) 1 mg SUBCUT [place]@0900 [facility] Stop: 12/29/22 08:59 Nystatin (Nystatin 100,000 Unit/Gm [...] normal bowel sounds Skin Other: Left anterior santos with VAC; surrounding erythema Left foot wrapped [...] levaquin likley a good choice. Documented By: Rolando Sykes MD 12/29/21 1059 Signed By: <Electronically signed by MD Rolando Sykes> 12/29/21 1105 [facility] Work Phone: 1([phone] 743-820410-16-2022 Progress note Author Hailee Berg [facility] December 28, 2021 2:05pmNote Date/TimeOct2021 1:46pm[place] [address] Hospitalist Progress Note Signed Patient: Ema Neff MR#: [id number] : 1965 Acct:[id number] Age/Sex: 56 / F Adm Date: 2 Loc: Room: [address] [place] [address] Type: ADM IN Attending Dr: Hailee Berg DO Copies to: ~ Date of Service: 12/28/2021 Subjective Subjective Narrative: Patient seen and examined. She reports poor pain control this morning. Denies chest pain, shortnessof breath, nausea, chills. Podiatry evaluated and ordering [...] Propionate 1 spray 12/26/21 20:55 Fluticasone Propionate [place]/16 Gm Bottle INTRANASAL 12/26/22 20:54 QHS PRN [...] <Electronically signed by Hailee Berg DO> 12/28/21 3276 [facility] Work Phone: [phone] 191-914010-16-2022 Progress note Author AUTUMN wallis [facility] December 28, 2021 1:37pmNote Date/TimeOct2021 1:37pm[place] [address] Podiatry Progress Note Signed Patient: Ema Neff MR#: [id number] : 1965 Acct:[id number] Age/Sex: 56 / F Adm Date: 2 Loc: Room: [address] [place] [address] Type: ADM IN Attending Dr: Hailee Berg DO Copies to: ~ Subjective Subjective Date of Service: Date of Service: 12/28/2021 Time of Service: 13:33 Narrative: Ms. Neff is a 56 year old female who is typically followed by my partner Dr. Torres. She has recently undergone second left toe [...] control in the lower extremities difficult at times.She denies any fever or chills. Patient statesthat [...] temperature gradient is warm to cool. No significantedema noted today. Neurological: Absent vibratory sensation at the first MP joint bilaterally. Decreased light touch sensation distal to the midfoot bilaterally Dermatological: Skin is thinning with diminished hair growth bilaterally. No hyperkeratotic lesionsare noted. Patient has history of second toe [...] lesions, however erythema has diminished since examination yest erday. Lesions are also very tender to the [...] wound VAC [facility]. Patient is afebrile and her white blood cell count is 10.2. Culture and sensitivity revealed Pseudomonas sensitive to cefepime. X-rays have been taken and no evidence of subcutaneous airor osteomyelitis was noted Assessment/Plan (1) Diabetic foot [...] toe(s) Documented By: Ayan Deluna DPM, AUTUMN 1331 Signed By: <Electronically signed by TERESA Deluna> 12/28/21 [facility] Work Phone: [phone] Consult note Author AUTUMN wallis [facility] December 27, 2021 3:12pmNote Date/TimeOctober 2021 2:51pmF[place] [address] Podiatry Consult Note Signed Patient: Ema Neff MR#: [id number] : 1965 Acct:[id number] Age/Sex: 56 / F Adm Date: 2 Loc: 3T Room: [address] [place] [address] Type: ADM IN Attending Dr: Hailee Berg [...] is typically followed by my partner Dr. Torres. She has recently undergone second left toe [...] injector (Ozempic) 1 mg (0.75mL) subcut QWEEK #3mL 10/17/21 [Rx Confirmed 12/26/21] glimepiride 4 mg [...] temperature gradient is warm to cool. No significantedema noted today. Neurological: Absent vibratory sensation at the first MP joint bilaterally. Decreased light touch sensation distal to the midfoot bilaterally Dermatological: Skin is thinning with diminished hair growth bilaterally. No hyperkeratotic lesionsare noted. Patient has history of second toe [...] very tender to the touch and no debri zenaida can be performed due to the sensitivity. [...] developing. We will continue current dressing regimen. Richiekristiechaka also schedule consultations with infectious disease for evaluation and guidance regarding ongoing antibiotic therapy for her recurring infections. We will also consult vascular surgery to ensurethat PAD is not beginning to worsen and [...] By: <Electronically signed by TERESA Deluna> 12/27/21 [facility] Work Phone: 1(310) 518-129210-15-2022 Progress note Author Hailee Berg [facility] December 27, 2021 2:45pmNote Date/TimeOct2021 2:38pm[place] [address] Hospitalist Progress Note Signed Patient: Ema Neff MR#: [id number] : 1965 Acct:[id number] Age/Sex: 56 / F Adm Date: 2 Loc: Room: [address] [place] [address] Type: ADM IN Attending Dr: Hailee Berg [...] 12/27/21 09:00 12/27/21 10:20 Aspirin 81 Mg Tablet. PO 12/27/22 08:59 [...] Propionate 1 spray 12/26/21 20:55 Fluticasone Propionate [place]/16 Gm Bottle INTRANASAL 12/26/22 20:54 QHS PRN [...] Insuln.Pen SUBCUT 12/26/22 21:59 Not Given TID.WM.HS [facility] Protocol Levothyroxine Sodium 150 mcg 12/27/21 06:30 [...] 09:00 Semaglutide [Ozempic] SUBCUT 12/29/22 08:59 [place]@0900 [facility] Nystatin 1 applic 12/26/21 20:55 Nystatin 100,000 [...] her biggest concern. 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 She reports she contacted her greeter who directed her to go to the ER. She is afebrile, work-up shows leukocytosis 13,000, metabolic profiles benign. ESR of 36. Lactate 1.4. X-ray without evidence of bony destruction. On exam [...] debridement of the wound. She states she iscontinued the oral antibiotics at home without missed [...] injector (Ozempic) 1 mg (0.75mL) subcut QWEEK #3mL 10/17/21 [Rx Confirmed 12/26/21] glimepiride 4 mg [...] % (Auto) 23.9 % (.) 12/26/21 17:16 [place] % (Auto) 6.4 % (.) 12/26/21 17:16 Eos % (Auto) 3.8 % (.) 12/26/21 17:16 Baso % (Auto) 1.0 % (.) 12/26/21 17:16 Neut # (Auto) 8.5 x10E3/uL (1.8-7.7) H 12/26/21 17:16 Lymph # (Auto) 3.1 x10E3/uL (1.00-4.8) 12/26/21 17:16 [place] # (Auto) 0.8 x10E3/uL (0.0-0.8) 12/26/21 17:16 [...] pain: Confirmed home regimen of 20 mg [place] twice daily for chronic painand OARRS. Patient received 4 mg IV morphine, states this has not touched her pain. Will order 0.5 IV Dilaudid as needed. CODE STATUS confirmed as full Documented By: Hailee Berg DO 12/26/212106 Signed By: <Electronically signed by Hailee Berg DO> 12/26/212127 [facility] Work Phone: 1(222) 383-459510-05-2022 Progress note Author AUTUMN Torres [facility] December 17, 2021 6:02pmNote Date/TimeOct2021 6:02pmFrisco[place] [address] Podiatry Progress Note Signed Patient: Ema Neff MR#: [id number] : 1965 Acct:[id number] Age/Sex: 56 / F Adm Date: 2 Loc: Room: [address] [place] [address] Type: ADM IN Attending Dr: Kanu Torres DPGeremias, Copies to: ~ Subjective Subjective Date [...] and if patient is still well controlled tomorrowshe will be discharged-per patient and nursing statements. [...] comfortably with both feet hanging off the bed-AGAINSTMEDICAL ADVICE. Patient's significant other is present at [...] status post amputations of the second toe bilaterallyat the MPJ level with dressings all intact [...] of amputation site at the second toe atthe MPJ level bilaterally as well as the [...] quite likely. 10. Patient contact office at [phone] to schedule for next Wednesday office visit. 1. Discharge patient tomorrow once medical team is clear that patient's pain iswell controlled. I will be in the office all day so please do not wait for me to see the patient tomorrow evening beforedischarge. Code(s): E11.621 - Type 2 diabetes mellitus [...] With Patient (min): 30 Documented By: Kanu Torres DPM, MS, CWS 08/03 Signed By: <Electronically signed by TERESA Torres> 12/17/21 180 [facility] Work Phone: 1(709) 148-736810-05-2022 Consult note Author Javed Snyder [facility] December 17, 2021 5:59pmNote Date/TimeOct2021 5:58pmMatthew Ville [id number] Pain Management Consult Note Signed Patient: Ema Neff MR#: [id number] : 1965 Acct:[id number] Age/Sex: 56 / F Adm Date: 2 Loc: 4N Room: 5I2049-5 Type: ADM IN Attending Dr: Kanu Torres DPM, Copies to: Kanu Torres DPM, MS, CWS MD Javed Mascorro MD~ [...] ofPVD, DM with recurrent infections to her feet.Patient underwent debridement yesterday of her bilateral feet wounds and complains mainly of surgical pain. Patient has history of lower back pain and has had injections to her lower back in the past, but reports that is not her main concern at this time. patient usedto be on oxycodone prior to hersurgery and her dose was just adjusted today to her home dose. Patient seems to be more comfortabletoday with the adjusted doseof her meds. PMFSH [...] injector (Ozempic) 1 mg (0.75mL) subcut QWEEK #3mL 10/17/21 [Rx Confirmed 12/09/21] glimepiride 4 mg [...] Acute Documented By: Javed Snyder MD 12/17/21 1742 Signed By: <Electronically signed by Javed Snyder MD> 12/17/21 175 [facility] Work Phone: 1(774) 555-561710-05-2022 Progress note Author Elise Marie [facility] December 17, 2021 4:29pmNote Date/TimeOct2021 12:29pm[place] [address] Hospitalist Progress Note Signed Patient: Ema Neff MR#: [id number] : 1965 Acct:[id number] Age/Sex: 56 / F Adm Date: 2 Loc: 4 Room: [address] [place] [address] Type: ADM IN Attending Dr: Kanu Torres DPGeremias, Copies to: ~ Date of Service: [...] with wound VAC on them left mid santos area Neurological -no focal neurological dysfunction noted [...] Tablet PO 12/16/22 17:59 800 mg QID PAULINO Administration Glucose 0 gm 12/16/21 17:52 Dextrose [...] Insuln.Pen SUBCUT 12/16/22 21:59 Not Given TID.WM.HS [facility] Protocol Insulin Human Regular 0 unit 12/16/21 [...] <Electronically signed by Elise Marie MD> 12/17/21 1629 [facility] Work Phone: 1(885) 604-828810-05-2022 Progress note Author [facility]ise [facility] December 17, 2021 12:25pmNote Date/TimeOct2021 5:50pmFris[place] [address] Hospitalist Progress Note Signed Patient: Ema Neff MR#: [id number] : 1965 Acct:[id number] Age/Sex: 56 / F Adm Date: 2 Loc: 4 Room: [address] [place] [address] Type: ADM IN Attending Dr: Kanu Torres DPGeremias, Copies to: ~ Date of Service: [...] the wound VAC noted in the mid santos area Patient complains of pain. Denies any [...] Name Amarilis PRN Reason Stop Dose Admin Dextrose 12.5 [...] aspect of the left foot and mid santos area with wound Further care per orthopedic, plan for wound debridement 2. Diabetes mellitus type 2 3. DVT prophylaxis Documented By: Elise Marie MD 12/16/21 1743 Signed By: <Electronically signed by Elise Marie MD> 12/17/21 [facility]5 [facility] Work Phone: 1(228) 810-349810-04-2022 Consult note Author CWS Kanu Torres [facility] December 16, 2021 6:39pmNote Date/TimeOct2021 6:39pm[place]ris[place] [address] Consultation Note Signed Patient: Ema Neff MR#: [id number] : 1965 Acct:[id number] Age/Sex: 56 / F Adm Date: 2 Loc: 4N Room: [address] [place] [address] Type: ADM IN Attending Dr: Kanu Torres DPM, Copies to: Kanu Torres DPM, MS, CWS Jarvis Thrasher MD~ Date of Service: 12/16/2021 Consultation Narrative Note CONSULTATION NOTE Consult Note: 1. Please see patient's preoperative H&P in patient's chart that was dictated from my office and was brought to the hospital by myself. That will suffice is my admission note on this patient's behalf. Please see orders also faxed to [facility] earlier today. Documented By: Kanu Torres DPM, , AUTUMN 07/04 Signed By: <Electronically signed by TERESA MS AUTUMN Torres> 12/16/211838 [facility] Work Phone: 1([phone]) [phone] Discharge summary Author Rodney Marti [facility] December 06, 2021 11:58amNote Date/TimeSeptember 2021 11:58[place] [address] Discharge Summary Signed Patient: Ema Neff MR#: [id number] : 1965 Acct:[id number] Age/Sex: 56 / F Adm Date: 2 Loc: Room: [address] [place] [address]: Rodney Marti MD Copies to: [...] and wound VAC placement, in addition she hadalso debridement on the left foot as well, [...] and hemodynamically stable for discharge home. Discussed withpatient at bedside, all questions answered. Condition Condition [...] Sodium 137, Potassium 4.0, Chloride 100, Carbon Qcsxyyw66.3 H, Anion Gap 9.7, BUN 10, Creatinine 1.00, Est GFR ( Amer) > 60, Est GFR (Non-Af Amer) 58, Glucose 100, Calcium 9.0 12/06/21 04:28: Corrected WBC 10.9, Uncorrected WBC Count 10.9, RBC 4.48, Hgb 13.4, Hct 41.4, MCV 92.3, MCH 29.8, MCHC 32.3, RDW 16.3 H, Plt Count 347, MPV 7.0, Neut % (Auto) 59.7, Lymph % (Auto) 28.9, [place] % (Auto) 7.7, Eos % (Auto) 3.1, Baso % (Auto) 0.6, Neut # (Auto) 6.5, Lymph # (Auto) 3.1, [place] # (Auto) 0.8, Eos # (Auto) 0.3, [...] Plan Discharge Plan Patient Disposition: [facility] Activity: Ambulate as Tolerated Diet: Diabetic Additional Instructions: -Take Linezolid as prescribed. You need to stop taking Cymbalta while you taking this new antibiotics Linezolid due to high risk for serotonin syndrome. -Follow-up with vascular surgery clinic as scheduled Prescriptions: New linezolid 600 mg tablet 600 mg PO BID 14 Days Qty: 28 0RF Continued fluticasone propionate [Flonase Allergy Relief] 50 mcg/actuation [place],Suspension 1 spray INTRANASAL QHS PRN (Reason: Nasal [...] <Electronically signed by Rodney Marti MD> 12/06/21 1158 [facility] Work Phone: 1([phone]) 113-905409-23-2022 Progress note Author Rodney Marti [facility] December 05, 2021 2:59pmNote Date/TimeSept2021 2:56pmF[place] [address] Hospitalist Progress Note Signed Patient: Ema Neff MR#: [id number] : 1965 Acct:[id number] Age/Sex: 56 / F Adm Date: 2 Loc: Room: [address] [place] [address] Type: ADM IN Attending Dr: Rodney Marti [...] Propionate 1 spray 12/03/21 21:06 Fluticasone Propionate [place] 120 [place]/16 Gm Bottle INTRANASAL 12/03/22 21:05 QHS PRN [...] Tablet PO 12/04/22 06:29 150 mcg DAILY@0630 PAUILNO Administration Melatonin 3 mg 12/03/21 18:43 Melatonin [...] controlled with current regimen. Her left leg framing machine tender but reports improvement in swelling and redness [...] <Electronically signed by Rodney Marti MD> 12/05/21 1459 [facility] Work Phone: 1(907) 283-630409-23-2022 Progress note Author Zaidtalisha Mon [facility] December 05, 2021 12:52pmNote Date/TimeSeptember 2021 10:24[place] [address] Vascular Surgery Progress Note Signed Patient: Ema Neff MR#: [id number] : 1965 Acct:[id number] Age/Sex: 56 / F Adm Date: 2 Loc: 4N Room: [address] [place] [address] Type: ADM IN Attending Dr: Rodney Marti [...] outside the dressing limitationsdoes look like it isimproving. She admits to less pain today. Dressings [...] % (Auto) 60.1 Lymph % (Auto) 26.5 [place] % (Auto) 8.4 Eos % (Auto) 3.6 Baso % (Auto) 1.4 Neut # (Auto) 5.5 Lymph # (Auto) 2.4 [place] # (Auto) 0.8 Eos # (Auto) 0.3 [...] home so nursing canreapply. We we will planto see her in the office as previously scheduled for follow-up on 12/24/2021 at 11 AM. Wound VAC will continue to be managed by homehealth and change [address] Mon here. I did see this patient today with the [employer]. I agree with above. No need for [...] vascular disease, unspecified Status: Acute Documented By: Edith Scott APRN 12/05/21 1 023 Signed By: <Electronically signed by NAOMI Scott> 12/05/21 1238 <Electronically signed by Zaid Mon MD> 12/05/21 1252 [facility] Work Phone: [phone]) 600-449309-23-2022 Progress note Author Rolando Mony [facility] December 05, 2021 12:50pmNote Date/TimeSept2021 12:50pm[place] [address] Infect. Disease Progress Note Signed Patient: Ema Neff MR#: [id number] : 1965 Acct:[id number] Age/Sex: 56 / F Adm Date: 2 Loc: 4 Room: [address] [place] [address] Type: ADM IN Attending Dr: Rodney Marti [...] Tablet) 40 mg PO QHS PAULINO Stop: 12/03/22 21:59 Last Admin: 12/04/21 21:30 Dose: 40 mg Clopidogrel Bisulfate (Clopidogrel Bisulfate 75 Mg Tablet) 75 mg PO DAILY PAULINO Stop: 12/04/22 08:59 Last Admin: 12/05/21 08:52 Dose: Not Given Collagenase (Collagenase 250 Unit/Gm Oint 30 Gm Tube) 1 applic TOPICAL DAILY [facility] Stop: 12/14/21 14:29 Last Admin: 12/05/21 08:51 Dose: 1 applic Cyclobenzaprine HCl (Cyclobenzaprine 10 Mg Tablet) 10 mg PO QHS PRN PRN Reason: Muscle Spasm Stop: 12/03/22 21:05 Last Admin: 12/04/21 21:30 Dose: 10 mg Docusate Sodium (Docusate 100 Mg Capsule) 100 mg PO BID PRN PRN Reason: Constipation Stop: 12/03/22 18:42 Duloxetine HCl (Duloxetine 30 Mg Capsule.Dr) 30 mg PO DAILY [facility] Stop: 12/04/22 08:59 Last Admin: 12/05/21 08:51 Dose: 30 mg Enoxaparin Sodium (Enoxaparin 40 Mg/0.4 Ml Syringe) 40 mg SUBCUT DAILY@10 [facility] Stop: 12/04/22 09:59 Last Admin: 12/04/21 10:37 Dose: Not Given Fluticasone Propionate (Fluticasone Propionate [place] 120 [place]/16 Gm Bottle) 1 spray INTRANASAL QHSPRN PRN Reason: Nasal Congestion Stop: 12/03/22 21:05 Gabapentin (Gabapentin 800 Mg Tablet) 800 mg PO QID [facility] Stop: 12/03/22 21:59 Last Admin: 12/05/21 08:51 Dose: 800 mg Hydromorphone HCl (Hydromorphone 0.5 Mg/0.5 Ml Syringe) 0.5 mg IV-PUSH Q4H PRN PRN Reason: Pain Last Admin: 12/05/21 12:45 Dose: 0.5 mg Vancomycin HCl (Vancomycin) 1 gm in 250 mls @ 250 mls/hr IV Q12H [facility] Last Admin: 12/05/21 07:53 Dose: 250 mls/hr Cefepime HCl (Maxipime) 2 gm in 50 mls @ 100 mls/hr IV Q12H [facility] Last Admin: 12/05/21 06:21 Dose: 100 mls/hr Levothyroxine Sodium (Levothyroxine 150 Mcg Tablet) 150 mcg PO DAILY@0630 [facility] Stop: 12/04/22 06:29 Last Admin: 12/05/21 07:53 [...] oral linezolid on discharge. Prescription sent to [facility] pharmacy. Patient is to hold her Cymbalta while on the Linezolid. Wound care as outlined by vascular surgery. Wound VAC apparently planned to continue at home. Documented By: Rolando Sykes MD 12/05/21 1246 Signed By: <Electronically signed by MD Rolando Sykes> 12/05/21 1470 [facility] Work Phone: 1([phone]) 307-185309-22-2022 Consult note Author Zaid Mon [facility] December 04, 2021 4:23pmNote Date/TimeSeptember 2021 8:34[place] [address] Vascular Surgery Consult Note Signed Patient: Ema Neff MR#: [id number] : 1965 Acct:[id number] Age/Sex: 56 / F Adm Date: 2 Loc: 4 Room: [address] [place] [address] Type: ADM IN Attending Dr: Rdoney Marti MD Copies to: Edith Scott, MD Rodney Rubio MD Robert L Hill, MD~ HPI Consult [...] VAC changed 3 times a week with [facility]. She was seen in the office last [...] % (Auto) 62.6 Lymph % (Auto) 26.9 [place] % (Auto) 5.9 Eos % (Auto) 3.6 Baso % (Auto) 1.0 Neut # (Auto) 6.9 Lymph # (Auto) 3.0 [place] # (Auto) 0.7 Eos # (Auto) 0.4 [...] % (Auto) 62.2 Lymph % (Auto) 26.7 [place] % (Auto) 6.4 Eos % (Auto) 3.3 Baso % (Auto) 1.4 Neut # (Auto) 7.3 Lymph # (Auto) 3.1 [place] # (Auto) 0.7 Eos # (Auto) 0.4 [...] % (Auto) 64.9 Lymph % (Auto) 23.6 [place] % (Auto) 6.7 Eos % (Auto) 3.7 Baso % (Auto) 1.1 Neut # (Auto) 8.1 H Lymph # (Auto) 2.9 [place] # (Auto) 0.8 Eos # (Auto) 0.5 [...] with a fullness beneath the wound bed. [facility] notified our office yesterday and we were told that culturewas obtained prior to her reporting to the [...] morning. This will most likely need I&D procedureto clean out thewound and reapply the wound [...] vascular disease, unspecified Status: Acute Documented By: Edith Scott APRN 12/04/21 0 831 Signed By: <Electronically signed by NOAMI Scott> 12/04/21 0834 <Electronically signed by Zaid Mon MD> 12/04/21 1623 [facility] Work Phone: [phone]) [phone] Progress note Author Rodney Marti [facility] December 04, 2021 1:59pmNote Date/TimeSeptember 2021 1:[address] Progress Note Signed Patient: Ema Neff MR#: [id number] : 1965 Acct:[id number] Age/Sex: 56 / F Adm Date: 2 Loc: 4N Room: 3H7549-6 Type: ADM IN Attending Dr: Rodney Marti [...] open wound noted on lateral aspect of santos with swelling and erythema surrounding it, very [...] Propionate 1 spray 12/03/21 21:06 Fluticasone Propionate [place] 120 [place]/16 Gm Bottle INTRANASAL 12/03/22 21:05 QHS PRN [...] <Electronically signed by Rodney Marti MD> 12/04/21 [facility] Work Phone: [phone] Consult note Author Rolando Sykes [facility] December 04, 2021 9:01amNote Date/TimeSeptember 2021 9:01[place] [address] Infect. Disease Consult Note Signed Patient: Ema Neff MR#: [id number] : 1965 Acct:[id number] Age/Sex: 56 / F Adm Date: 2 Loc: Room: [address] [place] [address] Type: ADM IN Attending Dr: Rodney Marti [...] and a left second toe ulceration where hertoe has been amputated. She denies systemic symptoms of infection. CC: Rodney Marti MD Review of Systems Review of Systems All other systems reviewed & are negative unless noted below or in HPI [facility] Attestation Statement: The following information was [...] 50 Mg Tablet) 50 mg PO HS [facility] Stop: 12/03/22 21:59 Last Admin: 12/03/21 22:40 Dose: 50 mg Aspirin (Aspirin 81 Mg Tablet.) 81 mg PO DAILY PAULINO Stop: 12/04/22 08:59 Last Admin: 12/04/21 08:49 Dose: 81 mg Atorvastatin Calcium (Atorvastatin 40 Mg Tablet) 40 mg PO QHS PAULINO Stop: 12/03/22 21:59 Last Admin: 12/03/21 22:41 Dose: Not Given Clopidogrel Bisulfate (Clopidogrel Bisulfate 75 Mg Tablet) 75 mg PO DAILY [facility] Stop: 12/04/22 08:59 Last Admin: 12/04/21 08:49 Dose: 75 mg Cyclobenzaprine HCl (Cyclobenzaprine 10 Mg Tablet) 10 mg PO QHS PRN PRN Reason: Muscle Spasm Stop: 12/03/22 21:05 Last Admin: 12/03/21 22:40 Dose: 10 mg Docusate Sodium (Docusate 100 Mg Capsule) 100 mg PO BID PRN PRN Reason: Constipation Stop: 12/03/22 18:42 Duloxetine HCl (Duloxetine 30 Mg Capsule.) 30 mg PO DAILY [facility] Stop: 12/04/22 08:59 Last Admin: 12/04/21 08:49 Dose: 30 mg Enoxaparin Sodium (Enoxaparin 40 Mg/0.4 Ml Syringe) 40 mg SUBCUT DAILY@10 [facility] Stop: 12/04/22 09:59 Last Admin: 12/04/21 08:49 Dose: 40 mg Fluticasone Propionate (Fluticasone Propionate [place] 120 [place]/16 Gm Bottle) 1 spray INTRANASAL QHSPRN PRN Reason: Nasal Congestion Stop: 12/03/22 21:05 Gabapentin (Gabapentin 800 Mg Tablet) 800 mg PO QID [facility] Stop: 12/03/22 21:59 Last Admin: 12/04/21 08:49 Dose: 800 mg Hydromorphone HCl (Hydromorphone 0.5 Mg/0.5 Ml Syringe) 0.5 mg IV-PUSH Q4H PRN PRN Reason: Pain Last Admin: 12/04/21 08:49 Dose: 0.5 mg Vancomycin HCl (Vancomycin) 1 gm in 250 mls @ 250 mls/hr IV Q12H PAULINO Last Admin: 12/04/21 05:35 Dose: 250 mls/hr Cefepime HCl (Maxipime) 2 gm in 50 mls @ 100 mls/hr IV Q12H [facility] Last Admin: 12/04/21 04:51 Dose: 100 mls/hr Levothyroxine Sodium (Levothyroxine 150 Mcg Tablet) 150 mcg PO DAILY@0630 [facility] Stop: 12/04/22 06:29 Last Admin: 12/04/21 05:35 Dose: 150 mcg Melatonin (Melatonin 3 Mg Tablet) 3 mg PO QHS PRN PRN Reason: Insomnia Stop: 12/03/22 18:42 Metoprolol Succinate (Metoprolol Succinate 50 Mg Tab.Er.24h) 50 mg PO DAILY [facility] Stop: 12/04/22 08:59 Last Admin: 12/04/21 08:49 [...] cefepime also appropriate for empiric coverage of gram- negative's given surgical site. Documented By: Rolando Sykes MD 12/04/21 0855 Signed By: <Electronically signed by MD Rolando Sykes> 12/04/21 0901 [facility] Work Phone: [phone] History and physical note Author Rodney Marti [facility] December 03, 2021 9:26pmNote Date/TimeSept2021 9:16pm[place] [address] Hospitalist H&P Signed Patient: Ema Neff MR#: [id number] : 1965 Acct:[id number] Age/Sex: 56 / F Adm Date: 2 Loc: 4N Room: [address] [place] [address] Type: ADM IN Attending Dr: Rodney Marti [...] on her wound due to severe pain forwhich she decided to come to the ER. [...] injector (Ozempic) 1 mg (0.75mL) subcut QWEEK #3mL 10/17/21 [Rx Confirmed 12/03/21] duloxetine 30 mg [...] open wound noted on lateral aspect of santos with swelling and erythema surrounding it, very [...] % (Auto) 26.7 % (.) 12/03/21 17:35 [place] % (Auto) 6.4 % (.) 12/03/21 17:35 Eos % (Auto) 3.3 % (.) 12/03/21 17:35 Baso % (Auto) 1.4 % (.) 12/03/21 17:35 Neut # (Auto) 7.3 x10E3/uL (1.8-7.7) 12/03/21 17:35 Lymph # (Auto) 3.1 x10E3/uL (1.00-4.8) 12/03/21 17:35 [place] # (Auto) 0.7 x10E3/uL (0.0-0.8) 12/03/21 17:35 [...] <Electronically signed by Rodney Marti MD> 12/03/212125 [facility] Work Phone: 1([phone]) 667-165909-14-2022 Evaluation note* Encounter Date Diagnosis Assessment Notes Treatment Notes Treatment Clinical Notes Nov, PAD (peripheral artery disease) (ICD-10 - I73.9) Patient's bypass is functioning and I am very pleased with her result. I suggest we continue the wound VAC for at least another 4 weeks as it is doing a phenomenal job closing the wound. The depth ismuch less at this point in time. I will see her back in 4 weeks and at that point we can we can consider discontinuation of the wound VAC. The patient understands agrees the plan all of her questionswere addressed. BONES[employer]PPORT Other 08-27-2022 Progress note Author Dean Rodriguez [facility] November 08, 2021 2:52pmNote Date/TimeAugust 2021 2:52pm[place] [address] Hospitalist Progress Note Signed Patient: Ema Neff MR#: [id number] : 1965 Acct:[id number] Age/Sex: 56 / F Adm Date: 2 Loc: Room: [address] [place] [address] Type: ADM IN Attending Dr: Dean Rodriguez MD Copies to: ~ Date of Service: 11/08/2021 Subjective Subjective Narrative: Pain in the leg and in the foot is severe, not well controlled, requiring administration of [id number] Dilaudid. Wound VAC is in place. Heart [...] Tube TOPICAL 11/14/21 09:44 1 applic DAILY [facility] Administration Dextrose 0 gm 11/04/21 03:59 Dextrose 50% In Water 25 Gm/50 Ml Syringe IV-PUSH 11/04/22 03:58 PRN PRN Hypoglycemia Duloxetine HCl 30 mg 11/04/21 09:00 11/08/21 09:13 Duloxetine [address] ZAMBRANO 11/04/22 08:59 30 mg DAILY PAULINO Administration Fentanyl 25 mcg 11/08/21 14:00 Fentanyl Patch 25 Mcg/Hour Patch.Td72 TRANSDERML Q72HR [facility] Protocol Fluticasone Propionate 1 spray 11/04/21 03:55 Fluticasone Propionate [place] 120 [place]/16 Gm Bottle INTRANASAL 11/04/22 03:54 QHS PRN [...] <Electronically signed by Dean Rodriguez MD> 11/08/211451 [facility] Work Phone: 1([phone]) [phone] Progress note Author Dean Rodriguez [facility] November 07, 2021 10:10amNote Date/TimeAugust 2021 10:10am[place] [address] Hospitalist Progress Note Signed Patient: Ema Neff MR#: [id number] : 1965 Acct:[id number] Age/Sex: 56 / F Adm Date: 2 Loc: Room: [address] [place] [address] Type: ADM IN Attending Dr: Dean Rodriguez [...] 11/04/21 09:00 11/07/21 08:02 Aspirin 81 [address]t.Dr ZAMBRANO 11/04/22 08:59 81 mg DAILY PAULINO Administration [...] 09:00 11/07/21 08:01 Duloxetine [address] ZAMBRANO 11/04/22 08:59 30 mg DAILY PAULINO Administration Fluticasone Propionate 1 spray 11/04/21 03:55 Fluticasone Propionate [place] 120 [place]/16 Gm Bottle INTRANASAL 11/04/22 03:54 QHS PRN [...] signed by Dean Rodriguez MD> 11/07/21 1010 [facility] Work Phone: 1(792) 278-729808-26-2022 Progress note Author Dean Rodriguez [facility] November 07, 2021 10:07amNote Date/TimeAugust 2021 10:07[place] [address] Hospitalist Progress Note Signed Patient: Ema Neff MR#: [id number] : 1965 Acct:[id number] Age/Sex: 56 / F Adm Date: 2 Loc: 3T Room: [address] [place] [address] Type: ADM IN Attending Dr: Dean Rodriguez [...] Propionate 1 spray 11/04/21 03:55 Fluticasone Propionate [place] 120 [place]/16 Gm Bottle INTRANASAL 11/04/22 03:54 QHS PRN [...] <Electronically signed by Dean Rodriguez MD> 11/07/[address] [place] [address] Ctr Work Phone: 1(121) [phone] Progress note Author Zaid Mon [facility] November 05, 2021 3:04pmNote Date/TimeAugust 2021 3:04pm[place] [address] Vascular Surgery Progress Note Signed Patient: Ema Neff MR#: [id number] : 1965 Acct:[id number] Age/Sex: 56 / F Adm Date: 2 Loc: Room: [address] [place] [address] Type: ADM IN Attending Dr: Dean Rodriguez [...] Acute Documented By: Zaid Mon MD 11/05/21 1501 Signed By: <Electronically signed by Zaid Mon MD> 11/05/21 150 [facility] Work Phone: 1(809) 303-659808-24-2022 Progress note Author Dean Rodriguez [facility] November 05, 2021 2:23pmNote Date/TimeAugust 2021 2:23[place] [address] Hospitalist Progress Note Signed Patient: Ema Neff MR#: [id number] : 1965 Acct:[id number] Age/Sex: 56 / F Adm Date: 2 Loc: 3T Room: [address] [place] [address] Type: ADM IN Attending Dr: Dean Rodriguez [...] Propionate 1 spray 11/04/21 03:55 Fluticasone Propionate [place] 120 [place]/16 Gm Bottle INTRANASAL 11/04/22 03:54 QHS PRN [...] Insuln.Pen SUBCUT 11/04/22 07:59 Not Given TID.WM.HS [facility] Protocol Insulin Detemir 10 units 11/04/21 09:00 11/05/21 09:37 Insulin Detemir 300 Units/3 Ml Insuln.Pen SUBCUT 11/04/22 08:59 Not Given DAILY PAULINO Levothyroxine Sodium 125 mcg 11/04/21 06:30 11/05/21 [...] Tablet PO 11/05/22 08:59 Not Given DAILY [facility] Sodium Chloride 0 ml 11/03/21 21:00 11/05/21 06:57 Sodium Chloride 0.9 % 10 Ml Syringe IV-PUSH 11/03/22 20:59 10 ml PRN PRN Administration Flush Vancomycin HCl 1 each 11/04/21 03:51 Vancomycin - Pharmacy Dosing 1 Each Miscell IV PRN PRN ZZ.Pharmacy Consult Protocol Documented By: Dean Rodriguez MD 11/05/21 1422 Signed By: <Electronically signed by Dean Rodriguez MD> 11/05/21 1423 [facility] Work Phone: 1([phone]) 319-807208-23-2022 Consult note Author Zaid Mon [facility] November 04, 2021 4:54pmNote Date/TimeAugust 2021 8:49[place] [id number] Vascular Surgery Consult Note Signed Patient: Ema Neff MR#: [id number] : 1965 Acct:[id number] Age/Sex: 56 / F Adm Date: 2 Loc: Room: [address] [place] [address] Type: ADM IN Attending Dr: Dean Rodriguez MD Copies to: MD Edith Neal APRN Matthew T Langenberg, MD Robert [...] purulent drainage from the distal portion of thewound. There is a small palpable pocket of pus in this region and I am able to expel a small amountof this drainage with palpation today. This is [...] % (Auto) 59.8 Lymph % (Auto) 28.7 [place] % (Auto) 6.5 Eos % (Auto) 3.7 Baso % (Auto) 1.3 Neut # (Auto) 7.3 Lymph # (Auto) 3.5 [place] # (Auto) 0.8 Eos # (Auto) 0.4 [...] % (Auto) 59.9 Lymph % (Auto) 29.5 [place] % (Auto) 5.6 Eos % (Auto) 3.9 Baso % (Auto) 1.1 Neut # (Auto) 7.4 Lymph # (Auto) 3.6 [place] # (Auto) 0.7 Eos # (Auto) 0.5 [...] subcutaneous tissue, unspecified Status: Acute Documented By: Edith Scott APRN 11/04/21 0 846 Signed By: <Electronically signed by NAOMI Scott> 11/04/21 0849 <Electronically signed by Zaid Mon MD> 11/04/21 7945 [facility] Work Phone: 1([phone]) 390-142508-23-2022 Progress note Author Dean Rodriguez [facility] November 04, 2021 2:51pmNote Date/TimeAugust 2021 2:51[place] [address] Hospitalist Progress Note Signed Patient: Ema Neff MR#: [id number] : 1965 Acct:[id number] Age/Sex: 56 / F Adm Date: 2 Loc: Room: [address] [place] [address] Type: ADM IN Attending Dr: Dean Rodriguez [...] Propionate 1 spray 11/04/21 03:55 Fluticasone Propionate [place]/16 Gm Bottle INTRANASAL 11/04/22 03:54 QHS PRN [...] Insuln.Pen SUBCUT 11/04/22 07:59 Not Given TID.WM.HS [facility] Protocol Insulin Detemir 10 units 11/04/21 09:00 [...] signed by Dean Rodriguez MD> 11/04/21 1451 [facility] Work Phone: 1(527) 247-924808-23-2022 History and physical note Author Raj Craven [facility] November 04, 2021 4:08amNote Date/TimeAugust 2021 3:59[place] [address] Hospitalist H&P Signed Patient: Ema Neff MR#: [id number] : 1965 Acct:[id number] Age/Sex: 56 / F Adm Date: 2 Loc: Room: [address] [place] [address] Type: ADM IN Attending Dr: Raj Oscar [...] 1 on the lateral side of the santos, the patient stated that afterher sami are taken off which was about 10 days ago, she started to have some wound dehiscence with purulent discharge for which patient was placed on Keflex however symptoms continued to get worse and the patient came to the hospital yesterday and was discharged home to follow-upwith her surgeon however she cameback today due [...] injector (Ozempic) 1 mg (0.75mL) subcut QWEEK #3mL 10/17/21 [Rx Confirmed 11/04/21] duloxetine 30 mg [...] is in the lateral side of the santos with purulent discharge and redness around the [...] % (Auto) 28.7 % (.) 11/04/21 00:55 [place] % (Auto) 6.5 % (.) 11/04/21 00:55 Eos % (Auto) 3.7 % (.) 11/04/21 00:55 Baso % (Auto) 1.3 % (.) 11/04/21 00:55 Neut # (Auto) 7.3 x10E3/uL (1.8-7.7) 11/04/21 00:55 Lymph # (Auto) 3.5 x10E3/uL (1.00-4.8) 11/04/21 00:55 [place] # (Auto) 0.8 x10E3/uL (0.0-0.8) 11/04/21 00:55 [...] signed by Raj Oscar MD> 11/04/21 0408 [facility] Work Phone: 1(878) 555-154608-22-2022 Evaluation note* Encounter Date Diagnosis Assessment Notes Treatment Notes Treatment Clinical Notes Oct, PAD (peripheral artery disease) (ICD-10 - I73.9) Oct,ost-op pain (ICD-10 - G89.18)This patient had recent bypass procedure and she [...] cautioned against the addictive nature narcotic medication. BONESUPPORT Other 08-17-2022 Evaluation note* Encounter Date Diagnosis Assessment Notes Treatment Notes Treatment Clinical Notes Oct, PAD (peripheral artery disease) (ICD-10 - I73.9) This patient has done well after left lower extremity bypass procedure. She continues to follow with podiatry weekly for wound care of the left foot wounds. Her physical examination today looks greatas far as her bypass goes. She has [...] follow her along closely and see her againin 3 to 4 weeks. She knows to call us in the meantime with any issues. She remains on good medical therapy with use of aspirin, Plavix, and statin medications daily. Oct,Non-healing ulcer of left foot, unspecified ulcer stage (ICD-10 - L97.529) Oct,Encounter for surgical aftercare following surgery of circulatory system (ICD-10 - Z48.812) BONESUPPORT Other 08-05-2022 Progress note Author Dean Rodriguez [facility] October 17, 2021 2:45pmNote Date/TimeAugust 2021 2:45[place] [address] Hospitalist Progress Note Signed Patient: Ema Neff MR#: [id number] : 1965 Acct:[id number] Age/Sex: 56 / F Adm Date: 2 Loc: Room: 3Y3840-8 Type: ADM IN Attending Dr: Zaid Mon [...] 10/13/21 14:00 10/17/21 08:50 Aspirin 81 Mg Tablet. PO 10/13/22 13:59 [...] Propionate 1 spray 10/13/21 13:46 Fluticasone Propionate [place]/16 Gm Bottle INTRANASAL 10/13/22 13:45 QHS PRN [...] medications. Documented By: Dean Rodriguez MD 10/17/21 4238 Signed By: <Electronically signed by Dean Rodriguez MD> 10/17/21 1445 [facility] Work Phone: 1(825) 943-490508-04-2022 Progress note Author Calvin Underwood [facility] October 16, 2021 3:36pmNote Date/TimeAugust 2021 3:36[place] [address] Hospitalist Progress Note Signed Patient: Ema Neff MR#: [id number] : 1965 Acct:[id number] Age/Sex: 56 / F Adm Date: 2 Loc: Room: [address] [place] [address] Type: ADM IN Attending Dr: Zaid Mon [...] Dose Route Start Last Admin Trade Name Aamrilis PRN Reason Stop Dose Admin Amitriptyline HCl [...] Propionate 1 spray 10/13/21 13:46 Fluticasone Propionate [place]/16 Gm Bottle INTRANASAL 10/13/22 13:45 QHS PRN [...] 1535 Signed By: <Electronically signed by Calvin Underwood DO> 10/16/21 1536 [facility] Work Phone: 1(831) 757-530008-03-2022 Progress note Author Karsten Vega [facility] October 15, 2021 2:24pmNote Date/TimeAugust 2021 2:24pm[place] [address] Vascular Surgery Progress Note Signed Patient: Ema Neff MR#: [id number] : 1965 Acct:[id number] Age/Sex: 56 / F Adm Date: 2 Loc: Room: [address] [place] [address] Type: ADM IN Attending Dr: Zaid Mon [...] signed by MD Karsten Vega> 10/15/21 1424 [facility] Work Phone: 1(614) 510-924508-03-2022 Progress note Author Calvin Underwood [facility] October 15, 2021 12:59pmNote Date/TimeAugust 2021 12:59[place] [address] Hospitalist Progress Note Signed Patient: Ema Neff MR#: [id number] : 1965 Acct:[id number] Age/Sex: 56 / F Adm Date: 2 Loc: Room: 1U0204-5 Type: ADM IN Attending Dr: Zaid Mon MD Copies to: ~ Date of Service: 10/15/2021 Subjective Subjective Narrative: Interviewed and examined bedside, no complaints from overnight. Her blood sugaris better controlledthan yesterday. Exam Physical Exam Vital Signs: Temp [...] Propionate 1 spray 10/13/21 13:46 Fluticasone Propionate [place]/16 Gm Bottle INTRANASAL 10/13/22 13:45 QHS PRN [...] signed by Calvin Underwood DO> 10/15/21 1259 [facility] Work Phone: 1(674) 587-548308-02-2022 Progress note Author Calvin Underwood [facility] October 14, 2021 2:05pmNote Date/TimeAugust 2021 1:51pm[place] [address] Hospitalist Progress Note Signed Patient: Ema Neff MR#: [id number] : 1965 Acct:[id number] Age/Sex: 56 / F Adm Date: 2 Loc: 4N Room: [address] [place] [address] Type: ADM IN Attending Dr: Zaid Mon [...] 30 Gm Tube TOPICAL 10/14/22 13:59 DAILY [facility] Cyclobenzaprine HCl 10 mg 10/13/21 13:46 10/13/21 [...] Syringe SUBCUT 10/14/22 09:59 Not Given DAILY@1000 [facility] Fluticasone Propionate 1 spray 10/13/21 13:46 Fluticasone Propionate [place]/16 Gm Bottle INTRANASAL 10/13/22 13:45 QHS PRN Nasal Congestion Gabapentin 800 mg 10/13/21 18:00 10/14/21 08:36 Gabapentin 800 Mg Tablet PO 10/13/22 17:59 800 mg QID PAUILNO Administration Glucose 0 gm 10/13/21 19:25 Dextrose [...] <Electronically signed by Calvin Underwood DO> 10/14/21 1405 [facility] Work Phone: 1(671) 738-474808-02-2022 Progress note Author Zaid Mon [facility] October 20, 2021 11:59amNote Date/TimeAugust 2021 7:50[place] [address] Vascular Surgery Progress Note Signed Patient: Ema Neff MR#: [id number] : 1965 Acct:[id number] Age/Sex: 56 / F Adm Date: 2 Loc: 4N Room: [address] [place] [address] Type: DIS IN Attending Dr: Zaid Mon [...] able to speak in complete sentences, no audiblewheezes and no cough Auscultation: clear to auscultation [...] % (Auto) 76.3 Lymph % (Auto) 15.1 [place] % (Auto) 4.8 Eos % (Auto) 3.0 Baso % (Auto) 0.8 Neut # (Auto) 13.5 H Lymph # (Auto) 2.7 [place] # (Auto) 0.9 H Eos # (Auto) [...] MPV Neut % (Auto) Lymph % (Auto) [place] % (Auto) Eos % (Auto) Baso % (Auto) Neut # (Auto) Lymph # (Auto) [place] # (Auto) Eos # (Auto) Baso # [...] % (Auto) 88.9 Lymph % (Auto) 6.4 [place] % (Auto) 4.4 Eos % (Auto) 0.1 Baso % (Auto) 0.2 Neut # (Auto) 21.8 H Lymph # (Auto) 1.6 [place] # (Auto) 1.1 H Eos # (Auto) [...] is Dr. Mon. 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 I was not able to see this patient today. Code(s): I73.9 - Peripheral vascular disease, unspecified Status: Acute Time Spent with Patient Time Spent With Patient (min): 20 Documented By: Julia Martinez DO, RES 10/14/21 0743 Signed By: <Electronically signed by DO JESUS Martinez> 10/14/21 0753 <Electronically signed by Zaid Mon MD> 10/20/21 6723 [facility] Work Phone: 1(368) 706-818608-01-2022 Consult note Author Calvin Underwood [facility] October 13, 2021 9:05pmNote Date/TimeAugus2021 7:35pmFris[place] [address] Hospitalist Consult Note Signed Patient: Ema Neff MR#: [id number] : 1965 Acct:[id number] Age/Sex: 56 / F Adm Date: 2 Loc: 4N Room: [address] [place] [address] Type: ADM IN Attending Dr: Calvin Underwood DO Copies to: MD Calivn Mascorro, ~ HPI DATE OF CONSULTATION: 10/13/21 REQUESTING PROVIDER: Calvin Underwood Consult Narrative Reason for Consult: Hyperglycemia HPI: Ms. Neff is a 56-year-old female admitted to the hospital for surgical intervention of a diabeticfoot ulcer on her left foot seen on [...] blood sugar has been high today because shedid not take her medication due to the [...] 14:00 10/13/21 15:48 Aspirin 81 Mg Tablet.Dr PO 10/13/22 13:59 [...] Mg/0.3 Ml Syringe SUBCUT 10/15/22 09:59 DAILY@1000 [facility] Fluticasone Propionate 1 spray 10/13/21 13:46 Fluticasone Propionate [place]/16 Gm Bottle INTRANASAL 10/13/22 13:45 QHS PRN Nasal Congestion Gabapentin 800 mg 10/13/21 18:00 10/13/21 18:35 Gabapentin 800 Mg Tablet PO 10/13/22 17:59 800 mg QID PAULINO Administration Glimepiride 4 mg 10/14/21 09:00 Glimepiride 4 Mg Tablet PO 10/14/22 08:59 QAM [facility] Hydromorphone HCl 0.5 mg 10/13/21 13:49 10/13/21 [...] Units/3 Ml Insuln.Pen SUBCUT 10/13/22 21:59 TID.WM.HS [facility] Protocol Levothyroxine Sodium 125 mcg 10/14/21 06:30 Levothyroxine 125 Mcg Tablet PO 10/14/22 06:29 DAILY.0630 [facility] Losartan Potassium 50 mg 10/14/21 09:00 Losartan 50 Mg Tablet PO 10/14/22 08:59 QAM [facility] Meclizine HCl 25 mg 10/13/21 13:46 Meclizine 25 Mg Tablet PO 10/13/22 13:45 QHS PRN Vertigo Metoprolol Succinate 50 mg 10/13/21 15:00 10/13/21 15:48 Metoprolol Succinate 50 Mg Tab.Er.24h PO 10/13/22 14:59 50 mg DAILY PAULINO Administration Naproxen 500 mg 10/13/21 21:00 Naproxen 500 Mg Tablet PO 10/13/22 20:59 BID PAULINO Nystatin 1 applic 10/13/21 13:46 Nystatin 100,000 [...] MPV 7.1, Neut % (Auto) 76.3, Lymph %(Auto) 15.1, [place] % (Auto) 4.8, Eos % (Auto) 3.0, Baso % (Auto) 0.8, Neut # (Auto) 13.5 H, Lymph # (Auto) 2.7, [place] # (Auto) 0.9 H, Eos # (Auto) [...] <Electronically signed by Calvin Underwood DO> 10/13/212104 [facility] Work Phone: 1(646) 958-669808-01-2022 Procedure [facility]07-27-2022 Progress note Author Adithya Rm [facility] October 08, 2021 9:38pmNote Date/TimeJuly 2021 9:38pm[place] [address] Hospitalist Progress Note Signed Patient: Ema Neff MR#: [id number] : 1965 Acct:[id number] Age/Sex: 56 / F Adm Date: 2 Loc: Room: [address] [place] [address] Type: ADM IN Attending Dr: Adithya Rm [...] 09/28/21 09:00 10/08/21 08:23 Aspirin 81 Mg Tablet.Dr PO 09/28/22 08:59 [...] Propionate 1 spray 10/01/21 06:38 Fluticasone Propionate [place]/16 Gm Bottle INTRANASAL 10/01/22 06:37 QHS PRN [...] 8.6 Mg Tablet PO 10/08/22 20:59 BID [facility] Sodium Chloride 0 ml 09/27/21 12:00 10/07/21 [...] <Electronically signed by Adithya Rm DO> 10/08/212137 [facility] Work Phone: 1(385) [phone] Progress note Author CWThanh Torres [facility] October 08, 2021 6:57pmNote Date/TimeJuly 2021 6:57[place] [address] Podiatry Progress Note Signed Patient: Ema Neff MR#: [id number] : 1965 Acct:[id number] Age/Sex: 56 / F Adm Date: 2 Loc: Room: [address] [place] [address] Type: ADM IN Attending Dr: Adithya Rm [...] Air 6 10/08/21 16:00 10/08/21 16:00 10/08/21 16:00 10/08/21 16:00 10/08/21 16:00 10/08/21 16:00 10/07/21 19:04 FiO2 30 10/01/21 15:00 [...] muscle weakness to the toes bilaterally otherwise patientable dorsiflex plantarflex ankles and foot bilaterally however patient was not taken out of bed formuscle weightbearing, gait evaluation, gait analysis please note. Offloading: None: Patient was advised we will will place order in for offloadingof bilateral ankle,heel and feet. Patient understood the reasoning why [...] debridements look clean healthy andviable at this timesurprisingly as well the second toe amputation stump [...] ulcerations with sterile Vashe solution followed by Shakila and dry sterile dressing daily until healed. [...] and at this time once we obtain finalculture tomorrow I would be okay and Dr. [...] cultures from last night, address appropriate antibiotic requirementand discharge patient to home-if okay with other [...] With Patient (min): 30 Documented By: Kanu Torres,TERESA, , AUTUMN 09/13 Signed By: <Electronically signed by TERESA Torres> 10/08/211856 [facility] Work Phone: 1(712) 495-719207-26-2022 Progress note Author Adithya Rm [facility] October 07, 2021 5:14pmNote Date/TimeJuly 2021 5:14pm[place] [address] Hospitalist Progress Note Signed Patient: Ema Neff MR#: [id number] : 1965 Acct:[id number] Age/Sex: 56 / F Adm Date: 2 Loc: Room: [address] [place] [address] Type : ADM IN Attending Dr: Adithya Rm DO Copies to: ~ Date of Service: 10/07/2021 Subjective Subjective Narrative: Patient is getting ready to go to the podiatric surgery by Dr. Torres. She got some IV Dilaudid earlier and [...] Syringe SUBCUT 09/28/22 09:59 Not Given DAILY@1000 [facility] Fluticasone Propionate 1 spray 10/01/21 06:38 Fluticasone Propionate [place]/16 Gm Bottle INTRANASAL 10/01/22 06:37 QHS PRN Nasal Congestion Gabapentin 800 mg 09/27/21 18:00 10/07/21 14:01 Gabapentin 800 Mg Tablet PO 09/27/22 17:59 Not Given QID [facility] Glucose 0 gm 09/27/21 14:45 Dextrose 40% [...] Insuln.Pen SUBCUT 09/27/22 16:59 Not Given TID.WM.HS [facility] Protocol Levothyroxine Sodium 125 mcg 09/28/21 06:30 10/07/21 06:07 Levothyroxine 125 Mcg Tablet PO 09/28/22 06:29 125 mcg DAILY@0630 [facility] Administration Losartan Potassium 50 mg 09/28/21 09:00 10/04/21 09:09 Losartan 50 Mg Tablet PO 09/28/22 08:59 50 mg QAM [facility] Administration Meclizine HCl 25 mg 10/01/21 06:38 Meclizine 25 Mg Tablet PO 10/01/22 06:37 QHS PRN Vertigo Metoprolol Succinate 50 mg 09/28/21 09:00 10/07/21 08:16 Metoprolol Succinate 50 Mg Tab.Er.24h PO 09/28/22 08:59 50 mg DAILY PAULINO Administration Naproxen 500 mg 10/01/21 09:00 10/07/21 08:17 Naproxen 500 Mg Tablet PO 10/01/22 08:59 Not Given BID [facility] Nystatin 1 applic 10/01/21 08:15 Nystatin 100,000 [...] room today for podiatry surgery by Dr. Torres. Vascular surgery on board, patient is agreeable [...] <Electronically signed by Adithya Rm DO> 10/07/211713 [facility] Work Phone: 1(312) [phone] Progress note Author Adithya Rm [facility] October 06, 2021 6:12pmNote Date/TimeJuly 2021 5:12[place] [address] Hospitalist Progress Note Signed Patient: Ema Neff MR#: [id number] : 1965 Acct:[id number] Age/Sex: 56 / F Adm Date: 2 Loc: Room: [address] [place] [address] Type : ADM IN Attending Dr: Adithya Rm DO Copies to: ~ Date of Service: 10/06/2021 Subjective Subjective Narrative: Patient says that she is feeling good. Other than pain in her foot. She understands that vascular surgery and then also podiatry with Dr. Torres will need to do surgical procedures in [...] heartburn but the nursing staff is getting readyto give her some Tums. Exam Physical Exam [...] 09/28/21 09:00 10/06/21 08:33 Aspirin 81 Mg Tablet. PO 09/28/22 08:59 [...] Syringe SUBCUT 09/28/22 09:59 Not Given DAILY@1000 [facility] Fluticasone Propionate 1 spray 10/01/21 06:38 Fluticasone Propionate [place]/16 Gm Bottle INTRANASAL 10/01/22 06:37 QHS PRN [...] Insuln.Pen SUBCUT 09/27/22 16:59 Not Given TID.WM.HS [facility] Protocol Levothyroxine Sodium 125 mcg 09/28/21 06:30 10/06/21 06:49 Levothyroxine 125 Mcg Tablet PO 09/28/22 06:29 Not Given DAILY@0630 [facility] Losartan Potassium 50 mg 09/28/21 09:00 10/04/21 09:09 Losartan 50 Mg Tablet PO 09/28/22 08:59 50 mg QAM [facility] Administration Meclizine HCl 25 mg 10/01/21 06:38 Meclizine 25 Mg Tablet PO 10/01/22 06:37 QHS PRN Vertigo Metoprolol Succinate 50 mg 09/28/21 09:00 10/06/21 08:33 Metoprolol Succinate 50 Mg Tab.Er.24h PO 09/28/22 08:59 50 mg DAILY [facility] Administration Naproxen 500 mg 10/01/21 09:00 10/06/21 08:33 Naproxen 500 Mg Tablet PO 10/01/22 08:59 500 mg BID [facility] Administration Nystatin 1 applic 10/01/21 08:15 Nystatin [...] signed by Adithya Rm, > 10/06/21 181 [facility] Work Phone: 1(220) 433-406807-25-2022 Progress note Author AUTUMN Torres [facility] October 06, 2021 5:53pmNote Date/TimeJuly 2021 5:53[place] [address] Podiatry Progress Note Signed Patient: Ema Neff MR#: [id number] : 1965 Acct:[id number] Age/Sex: 56 / F Adm Date: 2 Loc: Room: [address] [place] [address] Type : ADM IN Attending Dr: Adithya Rm DO Copies to: ~ Subjective Subjective Date of Service: Date of Service: 10/06/2021 Time of Service: 17:44 Narrative: Ms. Neff is a 56 year old female who is having increased pain left lower extremity. Patient was seen by vascular surgery earlier today and at this pointcontact between myself and vascular surgical team recommended that I proceed with my plan podiatric surgery and if patient is healing well then va scular bypass may be delayed or patient pain [...] muscle weakness to the toes bilaterally otherwise patientable dorsiflex plantarflex ankles and foot bilaterally however patient was not taken out of bed formuscle weightbearing, gait evaluation, gait analysis please note. Offloading: None: Patient was advised we will will place order in for offloadingof bilateral ankle,heel and feet. Patient understood the reasoning why [...] foot around the first metatarsal region has somenonviable skin and slough that could use excisional debridement, gangrene to the distal left fourthtoe can also use excisional debridement though it is without sign of infection. The left second toedistal aspect the proximal phalanx is exposed positive [...] and I have been advised to proceed withthe planned podiatry surgeries/amputation ulcer debridements at this time and if patient does not heal as expected or if pain increases: Vascular bypass will be pursued. Patient was advised of such ea rliertoday and agreed with the recommendation. 3. Patient [...] the right second toe amputation site. All thesites have either nonviable skin and slough as well as partial gangrene could benefit greatly from surgical excisional debridement and power antibiotic lavage: All in an attempt of limb salvage however patient was advised no guarantees can be given nor implied about healing, timeline of healing or l imb salvage. The informed consent was signed and [...] second toe-we will excise sharply widely and excisionallyall nonviable tissue followed by power antibiotic lavage. [...] elsewhere classified, initial encounter Documented By: Kanu Torres,TERESA, MS, CWS 09/13 Signed By: <Electronically signed by TERESA MS CWThanh Torres> 10/06/211752 [facility] Work Phone: 1(854) 820-271707-24-2022 Progress note Author Clyde Luna [facility] October 05, 2021 2:14pmNote Date/TimeJuly 2021 2:14pm[place] [address] Hospitalist Progress Note Signed Patient: Ema Neff MR#: [id number] : 1965 Acct:[id number] Age/Sex: 56 / F Adm Date: 2 Loc: Room: [address] [place] [address] Type : ADM IN Attending Dr: Clyde [...] 09/28/21 09:00 10/05/21 08:31 Aspirin 81 Mg Tablet. PO 09/28/22 08:59 [...] Propionate 1 spray 10/01/21 06:38 Fluticasone Propionate [place]/16 Gm Bottle INTRANASAL 10/01/22 06:37 QHS PRN [...] Insuln.Pen SUBCUT 09/27/22 16:59 Not Given TID.WM.HS [facility] Protocol Levothyroxine Sodium 125 mcg 09/28/21 06:30 [...] STATUS full Documented By: Clyde Luna MD 10/05/211412 Signed By: <Electronically signed by Clyde Luna MD> 10/05/21 1414 [facility] Work Phone: 1(802) 423-509207-23-2022 Progress note Author CWThanh Torres [facility] October 04, 2021 3:32pmNote Date/TimeJuly 2021 3:32[place] [address] Podiatry Progress Note Signed Patient: Ema Neff MR#: [id number] : 1965 Acct:[id number] Age/Sex: 56 / F Adm Date: 2 Loc: Room: [address] [place] [address] Type : ADM IN Attending Dr: Clyde Luna MD Copies to: ~ Subjective Subjective Date of Service: Date of Service: 10/04/2021 Time of Service: 15:23 Narrative: Ms. Neff is a 56 year old female who my podiatric partner had followed for thepast 1 year due to issues related to diabetes, PVD and ulcerations. We switch call coverage as of yesterday. Patient isawaiting vascular surgeon return Wednesday for advancement for reconstructive surgery left lower extremity in a limbsalvage attempt. 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 Shehas a wound on the right forefoot that [...] did develop a postoperative complication of hematoma onthe right thigh. She states currently that vascularis awaiting Dr. Mon's return for hopeful attempt at revascularization in the left foot for limb salvage. Patient denies fevers, chills, nausea, vomiting, sweats, diarrhea, chest pain, calf pain injuries or trauma to bilateral foot. Patient likes to do her own dressing changes as a nurses apparently do it too tight . She has beendoing dressing changes for over a year obviously [...] muscle weakness to the toes bilaterally otherwise patientable dorsiflex plantarflex ankles and foot bilaterally however patient was not taken out of bed formuscle weightbearing, gait evaluation, gait analysis please note. Offloading: None: Patient was advised we will will place order in for offloadingof bilateral ankle,heel and feet. Patient understood the reasoning why [...] is without sign of infection. The left secondtoe distal aspect the proximal phalanx is exposed positive for clinical osteomyelitis this from previous partial amputation of the distal, middle and head of the proximal phalanx left second toe. Thebone is hard however there is nonviable tissue around this area that needs to be excised as well asremoval of the proximal phalanx in toto. Right foot: Ulceration/surgical wound right forefoot status post amputation of toe is clean healthyand viable except for minimal nonviable yellow-white sloughthat could be sharply widely excisionally excised to aggressively advanced ulceration/amputation site healing. 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 Patient seen today for follow-up consultation. I discussed the patient's case prior to seeing the patient with her podiatric surgeon Dr. Ramirez, we are onthe same page as to what patient's status isbilaterally and form plan recommendation to proceed with [...] will reappoint after discussing patient's case Wednesday-after patient'srevascularization please note. I informed patient of such [...] - Unspecified protein-calorie malnutrition Documented By: Kanu Torres,TERESA, , AUTUMN 09/13 06/03 1523 Signed By: <Electronically signed by TERESA MS CWThanh Torres> 10/04/21 [facility] [place] Hospital Work Phone: 1([phone]) [phone] Progress note Author Clyde Luna [facility] October 04, 2021 3:05pmNote Date/TimeJuly 2021 3:03pm[place] [address] Hospitalist Progress Note Signed Patient: Ema Neff MR#: [id number] : 1965 Acct:[id number] Age/Sex: 56 / F Adm Date: 2 Loc: Room: [address] [place] [address] Type : ADM IN Attending Dr: Clyde [...] 09/28/21 09:00 10/04/21 09:09 Aspirin 81 Mg Tablet. PO 09/28/22 08:59 [...] Propionate 1 spray 10/01/21 06:38 Fluticasone Propionate [place] 120 [place]/16 Gm Bottle INTRANASAL 10/01/22 06:37 QHS PRN [...] signed by Clyde Luna MD> 10/04/21 1505 [facility] Work Phone: [phone] 147-733707-22-2022 Progress note Author Clyde Luna [facility] October 03, 2021 3:53pmNote Date/TimeJuly 2021 3:51pm[place] [address] Hospitalist Progress Note Signed Patient: Ema Neff MR#: [id number] : 1965 Acct:[id number] Age/Sex: 56 / F Adm Date: 2 Loc: Room: [address] [place] [address] Type : ADM IN Attending Dr: Clyde [...] 100 Mg Tablet PO 100 mg DAILY PUALINO Administration Enoxaparin Sodium 40 mg 09/28/21 10:00 10/03/21 10:10 Enoxaparin 40 Mg/0.4 Ml Syringe SUBCUT 09/28/22 09:59 40 mg DAILY@1000 PAULINO Administration Fluticasone Propionate 1 spray 10/01/21 06:38 Fluticasone Propionate [place] 120 [place]/16 Gm Bottle INTRANASAL 10/01/22 06:37 QHS PRN [...] Insuln.Pen SUBCUT 09/27/22 16:59 Not Given TID.WM.[facility] Protocol Levothyroxine Sodium 125 mcg 09/28/21 06:30 [...] full Documented By: Clyde Luna MD 10/03/21 1545 Signed By: <Electronically signed by Clyde Luna MD> 10/03/21 1553 [facility] Work Phone: [phone] 361-742707-22-2022 Progress note Author Karsten Vega [facility] October 03, 2021 2:17pmNote Date/TimeJuly 2021 2:17pm[place] [address] Vascular Surgery Progress Note Signed Patient: Ema Neff MR#: [id number] : 1965 Acct:[id number] Age/Sex: 56 / F Adm Date: 2 Loc: Room: [address] [place] [address] Type : ADM IN Attending Dr: Clyde [...] MPV Neut % (Auto) Lymph % (Auto) [place] % (Auto) Eos % (Auto) Baso % (Auto) Neut # (Auto) Lymph # (Auto) [place] # (Auto) Eos # (Auto) Baso # [...] % (Auto) 71.9 Lymph % (Auto) 18.5 [place] % (Auto) 6.6 Eos % (Auto) 2.4 Baso % (Auto) 0.6 Neut # (Auto) 10.4 H Lymph # (Auto) 2.7 [place] # (Auto) 1.0 H Eos # (Auto) 0.3 Baso # (Auto) 0.1 Nucleated RBC % (auto) 0.0 POC Glucose 111 POC Glucose Comment Glu2: cleaned meter Triglycerides 99 10/03/21 11:40 Corrected WBC Uncorrected WBC Count RBC Hgb Hct MCV MCH MCHC RDW Plt Count MPV Neut % (Auto) Lymph % (Auto) [place] % (Auto) Eos % (Auto) Baso % (Auto) Neut # (Auto) Lymph # (Auto) [place] # (Auto) Eos # (Auto) Baso # [...] bypass, or primary below-knee amputation which is notwarranted at this time. If she is to have a bypass it would not be until next week. Code(s): I73.9 - Peripheral vascular disease, unspecified Status: Acute Documented By: Karsten Vega MD 10/03/21 141 4 Signed By: <Electronically signed by MD Karsten Vega> 10/03/21 1417 [facility] Work Phone: 1([phone]) [phone] Progress note Author Chichi Ramirez [facility] October 03, 2021 1:01pmNote Date/TimeJuly 2021 1:01pmFris[place] [address] Podiatry Progress Note Signed Patient: Ema Neff MR#: [id number] : 1965 Acct:[id number] Age/Sex: 56 / F Adm Date: 2 Loc: Room: [address] [place] [address] Type : ADM IN Attending Dr: Clyde Luna MD Copies to: ~ Subjective Subjective Date of Service: Date of Service: 10/03/2021 Time of Service: 12:58 Narrative: Ms. Neff is a 56 year old female who I have followed for the past 1 year due to issues related todiabetes, PVD and ulcerations. She developed gangrene in [...] the bilateral lower extremity. There is a significantamount of areas of erythema to the left foot along the ulceration site and toes consistent with PVD. Neurology: Patient has known diabetic peripheral and autonomic neuropathy. Dermatology: Patient has a healthy and healing wound noted to the right second toe amputation site.Majority of the base of this wound is granular and this does appear to be closing compared to prioroutpatient follow-up. New evidence of proximal gangrene to the left second toe amputation site withexposed bone along the central aspect of the [...] related to the left second toe amputation siteand ulceration along the medial aspect of the [...] She will continue to follow this patient an dwell developed a final plan of care once her revascularization procedures are completed. I did discuss this case with Dr. Torres who is starting call and he will [...] <Electronically signed by TERESA Ramirez> 10/03/21 1301 [facility] Work Phone: [phone] Progress note Author Clyde Luna [facility] October 02, 2021 4:03pmNote Date/TimeJuly 2021 4:03pmF[place] [address] Hospitalist Progress Note Signed Patient: Ema Neff MR#: [id number] : 1965 Acct:[id number] Age/Sex: 56 / F Adm Date: 2 Loc: Room: [address] [place] [address] Type : ADM IN Attending Dr: Clyde [...] Jamesq PRN Reason Stop Dose Admin Acetaminophen 650 [...] Propionate 1 spray 10/01/21 06:38 Fluticasone Propionate [place]/16 Gm Bottle INTRANASAL 10/01/22 06:37 QHS PRN [...] Insuln.Pen SUBCUT 09/27/22 16:59 Not Given TID.[facility] Protocol Levothyroxine Sodium 125 mcg 09/28/21 06:30 [...] full Documented By: Clyde Luna MD 10/02/21 1556 Signed By: <Electronically signed by Clyde Luna MD> 10/02/21 1603 [facility] Work Phone: 1(455) 458-897907-21-2022 Progress note Author Karsten Vega [facility] October 02, 2021 3:28pmNote Date/TimeJuly 2021 3:28pm[place] [address] Vascular Surgery Progress Note Signed Patient: Ema Neff MR#: [id number] : 1965 Acct:[id number] Age/Sex: 56 / F Adm Date: 2 Loc: Room: [address] [place] [address] Type : ADM IN Attending Dr: Clyde [...] % (Auto) 73.4 Lymph % (Auto) 19.3 [place] % (Auto) 6.2 Eos % (Auto) 0.7 Baso % (Auto) 0.4 Neut # (Auto) 13.6 H Lymph # (Auto) 3.6 [place] # (Auto) 1.1 H Eos # (Auto) [...] MPV Neut % (Auto) Lymph % (Auto) [place] % (Auto) Eos % (Auto) Baso % (Auto) Neut # (Auto) Lymph # (Auto) [place] # (Auto) Eos # (Auto) Baso # [...] We will review it again tomorrow. There willnot be time on the operating schedule for this to occur this week. Code(s): I73.9 - Peripheral vascular disease, unspecified Status: Acute Documented By: Karsten Vega MD 10/02/21 152 6 Signed By: <Electronically signed by MD Karsten Vega> 10/02/21 1528 [facility] Work Phone: [phone] Consult note Author Sai Marx [facility] October 01, 2021 2:52pmNote Date/TimeJuly 2021 2:52pmF[place] [address] Pulmonology Consult Note Signed Patient: Ema Neff MR#: [id number] : 1965 Acct:[id number] Age/Sex: 56 / F Adm Date: 2 Loc: Room: [address] [place] [address] Type : ADM IN Attending Dr: Clyde [...] provide any history or review of systems. [facility] Vaccinated for COVID-19?: Yes Medical History Arthritis [...] distress. ET tube in place. Pupils equal andreactive. Oral mucosa normal. No JVD, no carotid bruit. Normal work of breathing, mechanical breath sounds symmetric anteriorly. Regular rate and rhythm, S1/S2 normal. No gallop. Abdomen obese soft nontender nondistended. Bowel sounds present. 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 PO 09/28/22 08:59 [...] Propionate 1 spray 10/01/21 06:38 Fluticasone Propionate [place]/16 Gm Bottle INTRANASAL 10/01/22 06:37 QHS PRN [...] Diprivan IV 10/01/22 01:59 30 mcg/kg/min .Q7H20M PAULINO 20.47 mls/hr Administration Protocol 20 MCG/KG/MIN Insulin Aspart 0 units 09/27/21 17:00 10/01/21 12:03 Insulin Aspart 300 Units/3 Ml Insuln.Pen SUBCUT 09/27/22 16:59 Not Given TID.[facility] Protocol Levothyroxine Sodium 125 mcg 09/28/21 06:30 10/01/21 06:44 Levothyroxine 125 Mcg Tablet PO 09/28/22 06:29 Not Given DAILY@0630 [facility] Losartan Potassium 50 mg 09/28/21 09:00 10/01/21 11:06 Losartan 50 Mg Tablet PO 09/28/22 08:59 Not Given QAM [facility] Meclizine HCl 25 mg 10/01/21 06:38 Meclizine 25 Mg Tablet PO 10/01/22 06:37 QHS PRN Vertigo Metoprolol Succinate 50 mg 09/28/21 09:00 10/01/21 11:06 Metoprolol Succinate 50 Mg Tab.Er.24h PO 09/28/22 08:59 Not Given DAILY [facility] Naproxen 500 mg 10/01/21 09:00 10/01/21 11:06 Naproxen 500 Mg Tablet PO 10/01/22 08:59 Not Given BID [facility] Nystatin 1 applic 10/01/21 08:15 Nystatin 100,000 [...] <Electronically signed by Clyde Luna MD> 10/01/21 1418 [facility] Work Phone: [phone] Progress note Author Karsten Vega [facility] October 01, 2021 2:02amNote Date/TimeJuly 2021 2:02[place] [address] Vascular Surgery Progress Note Signed Patient: Ema Neff MR#: [id number] : 1965 Acct:[id number] Age/Sex: 56 / F Adm Date: 2 Loc: Room: [address] [place] [address] Type : ADM IN Attending Dr: Clyde [...] 21:34 09/30/21 23:51 09/30/21 23:51 09/30/21 23:51 07/19/22 23:51 Narrative: Significant hematoma right thigh that is not pulsatile at this time Objective Labs CBC & Chem 7: 09/30/21 22:50 09/30/21 22:50 Other Labs: Laboratory Results - last 24 hr 09/30/21 09/30/21 09/30/21 06:20 11:20 16:27 Corrected WBC Uncorrected WBC Count RBC Hgb Hct MCV MCH MCHC RDW Plt Count MPV Neut % (Auto) Lymph % (Auto) [place] % (Auto) Eos % (Auto) Baso % (Auto) Neut # (Auto) Lymph # (Auto) [place] # (Auto) Eos # (Auto) Baso # [...] Type Blood Type Recheck Antibody Screen Crossmatch ([facility]) 09/30/21 09/30/21 09/30/21 17:06 20:11 20:11 Corrected WBC 18.9 H Uncorrected WBC Count RBC 4.17 Hgb 12.9 Hct 40.2 MCV 96.5 MCH 30.9 MCHC 32.0 RDW 16.1 H Plt Count 329 MPV 7.2 Neut % (Auto) Lymph % (Auto) [place] % (Auto) Eos % (Auto) Baso % (Auto) Neut # (Auto) Lymph # (Auto) [place] # (Auto) Eos # (Auto) Baso # [...] Blood Type Recheck Antibody Screen Negative Crossmatch ([facility]) See Detail 09/30/21 09/30/21 09/30/21 20:49 21:45 22:41 Corrected WBC Uncorrected WBC Count RBC Hgb Hct MCV MCH MCHC RDW Plt Count MPV Neut % (Auto) Lymph % (Auto) [place] % (Auto) Eos % (Auto) Baso % (Auto) Neut # (Auto) Lymph # (Auto) [place] # (Auto) Eos # (Auto) Baso # [...] Type Recheck B Negative Antibody Screen Crossmatch ([facility]) 09/30/21 09/30/21 09/30/21 22:50 22:50 22:50 Corrected WBC 22.8 H Uncorrected WBC Count 22.8 H RBC 4.04 Hgb 12.5 Hct 38.9 MCV 96.4 MCH 30.9 MCHC 32.0 RDW 16.5 H Plt Count 318 MPV 7.6 Neut % (Auto) 83.7 Lymph % (Auto) 11.3 [place] % (Auto) 4.1 Eos % (Auto) 0.4 Baso % (Auto) 0.5 Neut # (Auto) 19.1 H Lymph # (Auto) 2.6 [place] # (Auto) 0.9 H Eos # (Auto) [...] Type Blood Type Recheck Antibody Screen Crossmatch ([facility]) Microbiology Microbiology: Microbiology - Results from entire [...] find that she remains hypotensive and does notseem to be getting better with simple resuscitation. [...] By: <Electronically signed by MD Karsten Vega> 10/01/212 [facility] Work Phone: [phone] Progress note Author Juliane Campbell [facility] October 01, 2021 12:24amNote Date/TimeJuly 2021 11:06pm[place] [address] Event Note Signed Patient: Ema Neff MR#: [id number] : 1965 Acct:[id number] Age/Sex: 56 / F Adm Date: 2 Loc: Room: [address] [place] [address] Type : ADM IN Attending Dr: Clyde [...] approach Documented By: Juliane Campbell MD 09/30/21 6760 Signed By: <Electronically signed by Juliane Campbell MD> 10/01/21 0024 [facility] Work Phone: 1([phone]) 415-789107-19-2022 Progress note Author Karsten Vega [facility] September 30, 2021 6:01pmNote Date/TimeJuly 2021 6:01pmF[place] [address] Vascular Surgery Progress Note Signed Patient: Ema Neff MR#: [id number] : 1965 Acct:[id number] Age/Sex: 56 / F Adm Date: 2 Loc: Room: [address] [place] [address] Type : ADM IN Attending Dr: Clyde [...] <Electronically signed by MD Karsten Vega> 09/30/21 1801 [facility] Work Phone: [phone] Consult note Author Karsten Vega [facility] September 30, 2021 5:08pmNote Date/TimeJuly 2021 8:41[place] [address] Vascular Surgery Consult Note Signed Patient: Ema Neff MR#: [id number] : 1965 Acct:[id number] Age/Sex: 56 / F Adm Date: 2 Loc: Room: [address] [place] [address] Type : ADM IN Attending Dr: Clyde Luna MD Copies to: MD Edith Guzmán APRN Jeffrey L Buehrer, MD Robert [...] due to worsening left foot wounds her greeter has requested that her procedure be done [...] and oriented x3. She is sitting up atthe side of her bed enjoying her breakfast this morning. No shortness of breath on conversation today. Bilateral feet with clean, dry dressings in place. Bilateral pedal pulses are nonpalpable. Rightfoot with biphasic PT and DP signal, left foot with faint signal on hand-held Doppler. Results Labs CBC & Chem 7: 09/29/21 06:18 09/29/21 06:18 Labs: Laboratory Results - last 24 hr 09/28/21 09/28/21 09/28/21 05:57 12:03 16:17 Corrected WBC Uncorrected WBC Count RBC Hgb Hct MCV MCH MCHC RDW Plt Count MPV Neut % (Auto) Lymph % (Auto) [place] % (Auto) Eos % (Auto) Baso % (Auto) Neut # (Auto) Lymph # (Auto) [place] # (Auto) Eos # (Auto) Baso # [...] % (Auto) 60.3 Lymph % (Auto) 29.4 [place] % (Auto) 7.3 Eos % (Auto) 2.2 Baso % (Auto) 0.8 Neut # (Auto) 6.3 Lymph # (Auto) 3.1 [place] # (Auto) 0.8 Eos # (Auto) 0.2 [...] MPV Neut % (Auto) Lymph % (Auto) [place] % (Auto) Eos % (Auto) Baso % (Auto) Neut # (Auto) Lymph # (Auto) [place] # (Auto) Eos # (Auto) Baso # [...] redo revascularization of the left lower extremity withDr. Mon. In his absence Dr. Vega will be evaluating this patient. 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 David. She has now been placed back on her dual antiplatelet medications andis able to undergo her left lower extremity revascularization procedure. This was originally scheduled for 10/13/2021 however with worsening left foot wounds, her greeter has recommended we proceed with this while [...] vascular disease, unspecified Status: Acute Documented By: Edith Scott APRN 09/29/21 0 840 Signed By: <Electronically signed by NAOMI Scott> 09/29/21 0841 <Electronically signed by MD Karsten Vega> 09/30/21 1702 [facility] Work Phone: [phone]) 528-601707-19-2022 Progress note Author Clyde Luna [facility] September 30, 2021 4:20pmNote Date/TimeJuly 2021 4:15pm[place] [address] Hospitalist Progress Note Signed Patient: Ema Neff MR#: [id number] : 1965 Acct:[id number] Age/Sex: 56 / F Adm Date: 2 Loc: Room: [address] [place] [address] Type : ADM IN Attending Dr: Clyde [...] Administration Clopidogrel Bisulfate 75 mg 09/28/21 09:00 07/19/22 08:34 Clopidogrel Bisulfate 75 Mg Tablet PO [...] signed by Clyde Luna MD> 09/30/21 1620 [facility] Work Phone: 1([phone] Progress note Author Clyde Luna [facility] September 29, 2021 4:11pmNote Date/TimeJuly 2021 4:11pm[place] [address] Hospitalist Progress Note Signed Patient: Ema Neff MR#: [id number] : 1965 Acct:[id number] Age/Sex: 56 / F Adm Date: 2 Loc: Room: [address] [place] [address] Type : ADM IN Attending Dr: Clyde [...] 09/28/21 09:00 09/29/21 08:41 Aspirin 81 Mg Tablet. PO 09/28/22 08:59 [...] no growth so far WBC 10.4 Continue Teflaro Vascular and podiatry on board. Plan for angiogram tomorrow 2. Diabetes mellitus type 2, with peripheral neuropathy Hemoglobin A1c 6.7 Sliding scale 3. Polycythemia, probably due to underlying hypoxia, if no improvement will consider referral to hematology Hb 15.6 DVT prophylaxis: Lovenox Documented By: Clyde Luna MD 09/29/21 1607 Signed By: <Electronically signed by Clyde Luna MD> 09/29/21 1611 [facility] Work Phone: [phone] Consult note Author Chichi Ramirez [facility] September 28, 2021 2:04pmNote Date/TimeJuly 2021 1:19pmFris[place] [address] Podiatry Consult Note Signed Patient: Ema Neff MR#: [id number] : 1965 Acct:[id number] Age/Sex: 56 / F Adm Date: 2 Loc: Room: [address] [place] [address] Type : ADM IN Attending Dr: Elise Marie MD Copies to: TERESA Allne MD Ruta Semaskiene, MD~ HPI Data of Consult Consult Date: 09/28/21 Requesting Physician: Elise Marie MD Primary Care Provider: Jarvis Thrasher MD Consult Narrative Reason for consult: left foot ulceration/infection History of present illness: Ms. Neff is a 56 year old female who I have followed for the past 1 year due to issues related todiabetes, PVD and ulcerations. She developed gangrene in [...] the bilateral lower extremity. There is a significantamount of areas of erythema to the left foot along the ulceration site and toes consistent with PVD. Neurology: Patient has known diabetic peripheral and autonomic neuropathy. Dermatology: Patient has a healthy and healing wound noted to the right second toe amputation site.Majority of the base of this wound is granular and this does appear to be closing compared to prioroutpatient follow-up. New evidence of proximal gangrene to the left second toe amputation site withexposed bone along the central aspect of the [...] related to the left second toe amputation siteand ulceration along the medial aspect of the [...] <Electronically signed by TERESA Ramirez> 09/28/21 1404 [facility] Work Phone: [phone] 150-197607-17-2022 Progress note Author Elise Marie [facility] September 28, 2021 2:03pmNote Date/TimeJuly 2021 2:02pmFris[place] [address] Hospitalist Progress Note Signed Patient: Ema Neff MR#: [id number] : 1965 Acct:[id number] Age/Sex: 56 / F Adm Date: 2 Loc: Room: [address] [place] [address] Type : ADM IN Attending Dr: Elise [...] 02:00 09/28/21 05:35 Teflaro IV Infused Q12H PAULINO Infusion Insulin Aspart 0 units 09/27/21 17:00 09/28/21 12:50 Insulin Aspart 300 Units/3 Ml Insuln.Pen SUBCUT 09/27/22 16:59 Not Given TID.[facility] Protocol Levothyroxine Sodium 125 mcg 09/28/21 06:30 [...] signed by Elise Marie MD> 09/28/21 1403 [facility] Work Phone: [phone] 435-314707-16-2022 History and physical note Author Elise Marie [facility] September 27, 2021 3:34pmNote Date/TimeJuly 2021 2:14pmF[place] [address] Hospitalist H&P Signed Patient: Ema Neff MR#: [id number] : 1965 Acct:[id number] Age/Sex: 56 / F Adm Date: 2 Loc: 3T Room: [address] [place] [address] Type : ADM IN Attending Dr: Elise [...] insufficiency to the left extremity since then. Patientalso follows with podiatry, Dr. Ramirez. She states [...] negative unless noted below or in HPI [facility] Vaccinated for COVID-19?: Yes Medical History (Updated [...] 09/27/21 12:28 MCHC 33.3 g/dL (32.0-35.0) 09/27/21 12: RDW 16.2 % (11.9-15.3) H 09/27/21 12: Plt Count 343 x10E3/uL (150-450) 09/27/21 12: MPV 7.3 fl (6.3-10.7) 09/27/21 12: Neut % (Auto) 67.7 % (.) 09/27/21 12: Lymph % (Auto) 22.3 % (.) 09/27/21 12: [place] % (Auto) 5.6 % (.) 09/27/21 12: Eos % (Auto) 3.5 % (.) 09/27/21 12: Baso % (Auto) 0.9 % (.) 09/27/21 12: Neut # (Auto) 7.6 x10E3/uL (1.8-7.7) 09/27/21 12: Lymph # (Auto) 2.5 x10E3/uL (1.00-4.8) 09/27/21 12: [place] # (Auto) 0.6 x10E3/uL (0.0-0.8) 09/27/21 12: Eos # (Auto) 0.4 x10E3/uL (0.0-0.45) 09/27/21 12: Baso # (Auto) 0.1 x10E3/uL (0.0-0.2) 09/27/21 12: Nucleated RBC % (auto) 0.0 % (0-0.5) 09/27/21 12: ESR 21 mm/hr (0-29) 09/27/21 12:28 PHA Creatinine Clear 80.93 09/27/21 12:28 Sodium 138 mmol/L (136-146) 09/27/21 12:28 Potassium 4.2 mmol/L (3.5-5.1) 09/27/21 12: Chloride 98 mmol/L (95-114) 09/27/21 12: Carbon Dioxide 29.5 mmol/L (22.0-30.0) 09/27/21 12:28 [...] hypoxia Recheck CBC IV fluids DVT prophylaxis: Susanne Patient has been seen and examined today together with medical information officer Dr. Early. H&P written by her as [...] there was faint pulse noted inleft ADP. Extremityis warm to touch with violaceous discoloration and exposed bone noted with some purulent drainage. Patient is hemodynamically stable with minimal leukocytosis. We will check CRP. Continue broad-spectrum antibiotics. Await wound cultures. We will consult vascular and podiatry for further evaluation.Patient is ex-smoker, she is telling me then since March she is smoked only 2 cigarettes. She is using nicotine patch. Barney Marie MD Documented By: Anusha Early DO, RES 09/27/21 1355 Signed By: <Electronically signed by RES Anusha Early> 09/27/21 1455 <Electronically signed by Elise Marie MD> 09/27/21 8609 [facility] Work Phone: [phone]) [phone] Evaluation note* Encounter Date Diagnosis Assessment Notes Treatment Notes Treatment Clinical Notes Sep, Pre-op testing (ICD-10 - Z01.818 ) [facility] Other 06-15-2022 History of Present illness Narrative* Kilo Shaw, TERESA - 08/27/2021 8:39 AM EDT [facility] Department of Orthopedics [facility] Orthopedic Surgery Name: Ema Neff Date of [...] amputations Kilo Shaw DPM [facility] Evaluation note* Encounter Date Diagnosis Assessment Notes Treatment Notes Treatment Clinical Notes Aug, 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 [facility] Other 05-04-2022 Evaluation note* Encounter Date Diagnosis Assessment Notes Treatment Notes Treatment Clinical Notes July, PAD (peripheral artery disease) (ICD-10 - I73.9) This patient is a left foot ulcer nonpalpable pedal pulse. She is at risk for limb loss. She has critical limb ischemia. I recommending a left leg angiogram with possible intervention in this patientlikely has tibial disease. This patient understands and wishes to proceed she is very familiar withthis process as she is already gone through this 3 times. She is at risk for amputation. She is aware of this. [facility] Other 12-23-2021 Evaluation note* Encounter Date Diagnosis Assessment Notes Treatment Notes Treatment Clinical Notes Feb, PAD (peripheral artery disease) (ICD-10 - I73.9) Feb,ritical limb ischemia of both lower extremities (ICD-10 [...] and open up the tibial arteries. However Idid caution her that the highest likelihood of [...] with this patient a couple days before [place]. I did try to call Dr. Ramirez to explain th e situation. [facility] Other 10-06-2021 Hospital Discharge instructions Additional Instructions [...] is quite likely. -Patient contact office at to schedule for next [...] eucerin cream to non-open areas, not between toes.[facility] Work Phone: 1([phone]) 626-766911-15-2019 Progress note Author Ryland Liu [facility] February 01, 2023 2:51pmNote Date/TimeNov2022 2:00pm[place] [address] Hospitalist Progress Note Signed Patient: Ema Neff MR#: [id number] : 1965 Acct:[id number] Age/Sex: 58 / F Adm Date: 3 Loc: Room: [address] [place] [address] Type: ADM IN Attending Dr: Ryland Liu MD Copies to: ~ Date of Service: 02/01/2023 Subjective Subjective Narrative: Patient seen and assessed after PICC line placed today. She is in reasonably good spirits. She remained afebrile overnight and had no acute events occur. She is planned to have surgical intervention for her L third toe gangrenous- appearing toe. Patient also does complain of persistent [...] 01/29/23 09:00 02/01/23 08:25 Aspirin 81 Mg Tablet. PO 01/29/24 08:59 [...] Tablet PO 01/28/24 21:59 800 mg QID PALUINO Administration Glucose 0 gm 01/28/23 18:40 Dextrose [...] Lactated Ringers IV 01/28/24 18:44 75 mls/hr .[id number] PAULINO Administration Piperacillin Sod/Tazobactam Sod 3.375 gm [...] tomorrow Documented By: Ryland Liu MD 3 [id number] Signed By: <Electronically signed by Ryland Liu MD> 02/01/23 1451 [facility] Work Phone: Consult note Author Zaid Mon [facility] November 04, 2021 4:54pmNote Date/TimeAugust 2021 8:49[place] [address] Vascular Surgery Consult Note Signed Patient: Ema Neff MR#: [id number] : 1965 Acct:[id number] Age/Sex: 56 / F Adm Date: 2 Loc: Room: [address] [place] [address] Type: ADM IN Attending Dr: Dean Rodriguez MD Copies to: MD Edith Neal APRN Matthew T Langenberg, MD Robert [...] purulent drainage from the distal portion of thewound. There is a small palpable pocket of pus in this region and I am able to expel a small amountof this drainage with palpation today. This is [...] % (Auto) 59.8 Lymph % (Auto) 28.7 [place] % (Auto) 6.5 Eos % (Auto) 3.7 Baso % (Auto) 1.3 Neut # (Auto) 7.3 Lymph # (Auto) 3.5 [place] # (Auto) 0.8 Eos # (Auto) 0.4 [...] % (Auto) 59.9 Lymph % (Auto) 29.5 [place] % (Auto) 5.6 Eos % (Auto) 3.9 Baso % (Auto) 1.1 Neut # (Auto) 7.4 Lymph # (Auto) 3.6 [place] # (Auto) 0.7 Eos # (Auto) 0.5 [...] subcutaneous tissue, unspecified Status: Acute Documented By: Edith Scott APRN 11/04/21 0 846 Signed By: <Electronically signed by NAOMI Scott> 11/04/21 0849 <Electronically signed by Zaid Mon MD> 11/04/21 2928 [facility] Work Phone: Consult note Author Rolando Sykes [facility] January 29, 2023 11:28amNote Date/TimeNovember 2022 11:24[place] [address] Infect. Disease Consult Note Signed Patient: Ema Neff MR#: [id number] : 1965 Acct:[id number] Age/Sex: 58 / F Adm Date: 3 Loc: 4 Room: [address] [place] [address] Type: ADM IN Attending Dr: Casa Givens [...] a year ago. She continues to follow withDrValentina Sierra's due to a small ulceration atthe previous surgical site but generally states it has not gotten infected and she has been doing status quo. Few weeks back she dropped her cell phone on her third toe and this prompted things to worsen with this third toe becoming black with a necrotic skin lesion and swelling erythema and increased pain noted. She was just seen by Dr. Mno who is planning an angio to evaluate [...] negative unless noted below or in HPI [facility] Medical History Anxiety Arthritis Back pain [...] (Aspirin 81 Mg Tablet.Dr) 81 mg PO [facility] Stop: 01/29/24 08:59 Last Admin: 01/29/23 09:04 Dose: 81 mg Atorvastatin Calcium (Atorvastatin 40 Mg Tablet) [facility] Stop: 01/29/24 08:59 Last Admin: 01/29/23 09:04 Dose: 40 mg Clopidogrel Bisulfate (Clopidogrel Bisulfate 75 Mg Tablet) [facility] Stop: 01/29/24 08:59 Last Admin: 01/29/23 09:04 Dose: 75 mg Collagenase (Collagenase 250 Unit/Gm Oint 30 Gm Tube) 1 applic TOPICAL DAILY [facility] Stop: 01/29/24 10:59 Dextrose (Dextrose 50% In Water 25 Gm/50 Ml Syringe) 0 gm IV-PUSH PRN PRN PRN Reason: Hypoglycemia Stop: 01/28/24 18:39 Last Admin: 01/29/23 05:35 Dose: 25 gm Docusate Sodium (Docusate 100 Mg Capsule) 100 mg PO BID [facility] Stop: 01/28/24 20:59 Last Admin: 01/29/23 09:04 Dose: 100 mg Gabapentin (Gabapentin 800 Mg Tablet) 800 mg PO QID [facility] Stop: 01/28/24 21:59 Last Admin: 01/29/23 09:04 [...] Ringers) 1,000 mls @ 75 mls/hr IV .[id number] [facility] Stop: 01/28/24 18:44 Last Admin: 01/28/23 22:43 Dose: 75 mls/hr Vancomycin HCl 1.25 gm/ (Dextrose) 275 mls @ 183.333 mls/hr IV Q12H [facility] Stop: 01/29/24 06:29 Last Admin: 01/29/23 05:53 Dose: 183.33 mls/hr Piperacillin Sod/Tazobactam Sod (Zosyn) 3.375 gm in 100 mls @ 200 mls/hr IV Q6HSCH Last Admin: 01/29/23 09:03 Dose: 200 mls/hr Insulin Aspart (Insulin Aspart 300 Units/3 Ml Insuln.Pen) 0 units SUBCUT TID.[facility]; Protocol Stop: 01/28/24 21:59 Last Admin: 01/29/23 09:03 Dose: Not Given Levothyroxine Sodium (Levothyroxine 150 Mcg Tablet) 150 mcg PO DAILY@0630 [facility] Stop: 01/29/24 06:29 Last Admin: 01/29/23 05:36 Dose: 150 mcg Losartan Potassium (Losartan 50 Mg Tablet) 50 mg PO [facility] Stop: 01/29/24 08:59 Last Admin: 01/29/23 09:04 Dose: 50 mg Metoprolol Succinate (Metoprolol Succinate 50 Mg Tab.Er.24h) 50 mg PO [facility] Stop: 01/29/24 08:59 Last Admin: 01/29/23 [...] to touch. Warmth going up the anterior santos. Some stasis changes noted of the santos Neuro General: patient oriented x3 Extrem General: [...] signed by MD Rolando Sykes> 01/29/23 1128 [facility] Work Phone: Consult note Author CWS Ayan wallis [facility] January 29, 2023 3:40pmNote Date/TimeNov2022 3:24[place] [address] Podiatry Consult Note Signed Patient: Ema Neff MR#: [id number] : 1965 Acct:[id number] Age/Sex: 58 / F Adm Date: 3 Loc: 4N Room: 0L3940-6 Type: ADM IN Attending Dr: Casa Givens [...] is typically followed by my partner Dr. Torres. She has recently undergone second left toe [...] and no additional complaints, except as documented [facility] Medical History (Updated 01/29/23 @ 15:35 [...] obvious erosive changes suggestive of osteomyelitis. MRI studyis pending. Results Labs 01/29/23 05:11 01/29/23 05:11 [...] on how the toe progresses over the weekend.Wound debridement could be performed and wound care [...] closure for this procedure. These options were presentedto the patient along with the potential risks and complications which she is familiar with from herprevious procedures. Her questions were answered to her [...] <Electronically signed by TERESA Deluna> 01/29/23 1540 [facility] Work Phone: Discharge summary Author Adithya Rm [facility] October 09, 2021 5:01pmNote Date/TimeJuly 2021 9:59[place] [address] Discharge Summary Signed Patient: Ema Neff MR#: [id number] : 1965 Acct:[id number] Age/Sex: 56 / F Adm Date: 2 Loc: Room: [address] [place] [address]: Adithya Rm DO Copies to: [...] Skoff tissue. She developed gangrene of the rightsecond digit and underwent amputation and revascularization. She has a wound on the right foot thathad been stable in the past and seem [...] been working with vascular surgery and had aprocedure scheduled on October 13, but due to the new findings she did present to the emergency room for hospital admission in order to help expedite the surgery and prevent further proximal amputationon the feet. She does have chronic pain related to bilateral feet that was much more acute and the nature of his pain due to this injury. She was admitted to hospital. She was placed on broad-spectrum antibiotics. Cultures grew Streptococcus agalactiae group B. Antibiotics were refined to Rocephin. She had podiatry follow her by Dr. Bell first and then Dr. Torres. Vascular surgery was consulted. They did follow her with eventual plans for attempted revascularization of the left lower extremity for foot and limb salvage. She had surgery by Dr. Torres from podiatry on October 07, 2021 with [...] the left second toe stump at the Metatarsal- phalangeal joint level of the left foot and did deepswab cultures at the amputation site of the second toe and did subcutaneous tissue excisional ulcera tion debridement of diabetic ulceration of the left [...] was sent home on a supply of oxycodoneto use at 5 to 10 mg p.o. [...] Amputation, Debridement Bilateral Foot Ulcers(Left) - Kanu Torres DPM, Operation Date: 10/13/21 10:35 <No data [...] Plan Discharge Plan Patient Disposition: Home Health [facility] Activity: Ambulate as Tolerated Diet: Diabetic Additional [...] pillows behind ankle so that heels are suspendedoff of bed. Skin breakdown is a major [...] fluticasone propionate [Flonase Allergy Relief] 50 mcg/actuation [place],Suspension 1 spray INTRANASAL QHS PRN (Reason: Nasal [...] Ordered By: Adithya Rm Follow Up: Kanu Torres DPM, [Active Staff] - 10/15/21 1:00 pm (Follow-up with Podiatry. Call office to reschedule if needed.) Jarvis Thrasher MD [Primary Care Provider] - 10/13/21 10:30 am (Follow-up with your Primary Care Provider, call office to reschedule if needed. *Unable to reach office staff, please call Dr. Thrasher's to reschedule appointment) Documented By: Adithya Rm DO [id number] Signed By: <Electronically signed by Adithya Rm DO> 10/09/21 1701 [facility] Work Phone: Discharge summary Author Zaid Mon [facility] October 22, 2021 12:46pmNote Date/TimeAugust 2021 9:48[place] [address] Discharge Summary Signed Patient: Ema Neff MR#: [id number] : 1965 Acct:[id number] Age/Sex: 56 / F Adm Date: 2 Loc: Room: [address] [place] [address]: Zaid Mon MD Copies to: [...] at revascularization of her leg in order toprevent amputation. This was an attempt at limb [...] Mon dictating. I was at the [employer] this week and I was not [...] Dr. Mon dictating. I was at the [employer] and not able to round on this patient. Discharge Plan Discharge Plan [facility] Disposition: [facility] Activity: No Activity Restriction Diet: Diabetic, [...] fluticasone propionate [Flonase Allergy Relief] 50 mcg/actuation [place],Suspension 1 spray INTRANASAL QHS PRN (Reason: Nasal [...] signed by Zaid Mon MD> 10/22/21 1246 [facility] Work Phone: Discharge summary Author Dean Rodriguez [facility] November 09, 2021 5:19pmNote Date/TimeAugust 2021 1:54pm[place] [address] Discharge Summary Signed Patient: Ema Neff MR#: [id number] : 1965 Acct:[id number] Age/Sex: 56 / F Adm Date: 2 Loc: Room: [address] [place] [address]: Dean Rodriguez MD Copies to: MD Jarvis Neal MD~ Providers Date of Discharge: 11/09/21 Discharging Provider: Dean Rodriguez Primary Care Provider: Jarvis Thrasher Consults: 11/04/21 03:53 Consult to Vascular Surgery Routine 11/05/21 15:06 Consult to Special Education Para Professional Routine Discharge Diagnosis Final Diagnosis Final Discharge [...] Plan Discharge Plan Patient Disposition: Home Health [facility] Activity: Other Comment: Per vascular surgery and [...] fluticasone propionate [Flonase Allergy Relief] 50 mcg/actuation [place],Suspension 1 spray INTRANASAL QHS PRN (Reason: Nasal [...] Patient Ordered By: Dean Rodriguez Follow Up: Kanu Torres DPM, [Active Staff] - (follow up next week) Jarvis Thrasher MD [Primary Care Provider] - 11/11/21 10:30 am (Follow-up with yourPrimary Care Provider, call office to reschedule if needed. ) Zaid Mon MD [Active Staff] - (Call office on Wednesday to schedule follow-up with Vascular Surgery.) Documented By: Dean Rodriguez MD 11/09/21 1350 Signed By: <Electronically signed by Dean Rodriguez MD> 11/09/21 1713 [facility] Work Phone: Evaluation note* Diagnosis Amputation of toe of right foot (HCC)- Primary Amputation of toe of left foot (HCC) DM (diabetes mellitus), type 2 with peripheral vascular complications (HCC) Type II or unspecified type diabetes mellitus with peripheral circulatory disorders, not stated as uncontrolled [facility] [employer] Other Evaluation note* Diagnosis Onset Date Resolution Status Diabetes mellitus with foot ulcer acuteDiabetic foot infectionacuteDiabetic infection of left footacuteHematoma acuteHypoalbuminemia due to protein-calorie malnutritionacuteMalnutritionacute OsteomyelitisacutePAD (peripheral artery disease)acutePeripheral vascular occlusive diseaseacutePost-operative stateacutePostoperative examinationacutePVD (peripheral vascular disease)acuteSurgical wound, non healingacute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acuteUlcer of right foot with fat layer exposedacute Diabetes mellituschronicHTN (hypertension), benignchronicMorbid obesity due to excess calorieschronicTobacco abusechronicChronic ulcer of left foot due to diabetes mellitusacuteDiabetic foot infectionacutePAD (peripheral artery disease)acutePostoperative examinationacuteDiabetes mellituschronicHTN (hypertension), benignchronicInfectionacuteWound infectionacuteDiabetes mellitus chronicHTN (hypertension), benignchronicMorbid obesity due to excess calories chronic [facility] Work Phone: Evaluation note* Diagnosis Onset Date Resolution Status Diabetes mellitus with foot ulcer acuteDiabetic foot infectionacuteDiabetic infection of left footacuteHematoma acuteHypoalbuminemia due to protein-calorie malnutritionacuteMalnutritionacute OsteomyelitisacutePAD (peripheral artery disease)acutePeripheral vascular occlusive diseaseacutePost-operative stateacutePostoperative examinationacutePVD (peripheral vascular disease)acuteSurgical wound, non healingacute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acuteUlcer of right foot with fat layer exposedacute Diabetes mellituschronicHTN (hypertension), benignchronicMorbid obesity due to excess calorieschronicTobacco abusechronicChronic ulcer of left foot due to diabetes mellitusacuteDiabetic foot infectionacutePAD (peripheral artery disease)acutePostoperative examinationacuteDiabetes mellituschronicHTN (hypertension), benignchronicInfectionacuteWound infectionacuteDiabetes mellitus chronicHTN (hypertension), benignchronicMorbid obesity due to excess calories chronicCellulitisacuteLeft leg cellulitisacutePVD (peripheral vascular disease) acuteWound infectionacuteDiabetes mellituschronic [facility] Work Phone: Evaluation note* Diagnosis Onset Date Resolution Status Diabetes mellitus with foot ulcer acuteDiabetic foot infectionacuteDiabetic infection of left footacuteHematoma acuteHypoalbuminemia due to protein-calorie malnutritionacuteMalnutritionacute OsteomyelitisacutePAD (peripheral artery disease)acutePeripheral vascular occlusive diseaseacutePost-operative stateacutePostoperative examinationacutePVD (peripheral vascular disease)acuteSurgical wound, non healingacute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acuteUlcer of right foot with fat layer exposedacute Diabetes mellituschronicHTN (hypertension), benignchronicMorbid obesity due to excess calorieschronicTobacco abusechronicChronic ulcer of left foot due to diabetes mellitusacuteDiabetic foot infectionacutePAD (peripheral artery disease)acutePostoperative examinationacuteDiabetes mellituschronicHTN (hypertension), benignchronicInfectionacuteWound infectionacuteDiabetes mellitus chronicHTN (hypertension), benignchronicMorbid obesity due to excess calories chronicCellulitisacuteLeft leg cellulitisacutePVD (peripheral vascular disease) acuteWound infectionacuteDiabetes mellituschronicCellulitisacuteDiabetic foot ulceracuteFoot pain, bilateralacuteStatus post amputation of toe of left foot acuteStatus post amputation of toe of right footacute [facility] Work Phone: Evaluation note* Diagnosis Onset Date Resolution Status Diabetes mellitus with foot ulcer acuteDiabetic foot infectionacuteDiabetic infection of left footacuteHematoma acuteHypoalbuminemia due to protein-calorie malnutritionacuteMalnutritionacute OsteomyelitisacutePAD (peripheral artery disease)acutePeripheral vascular occlusive diseaseacutePost-operative stateacutePostoperative examinationacutePVD (peripheral vascular disease)acuteSurgical wound, non healingacute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acuteUlcer of right foot with fat layer exposedacute Diabetes mellituschronicHTN (hypertension), benignchronicMorbid obesity due to excess calorieschronicTobacco abusechronicChronic ulcer of left foot due to diabetes mellitusacuteDiabetic foot infectionacutePAD (peripheral artery disease)acutePostoperative examinationacuteDiabetes mellituschronicHTN (hypertension), benignchronicInfectionacuteWound infectionacuteDiabetes mellitus chronicHTN (hypertension), benignchronicMorbid obesity due to excess calories chronicCellulitisacuteLeft leg cellulitisacutePVD (peripheral vascular disease) acuteWound infectionacuteDiabetes mellituschronicCellulitisacuteDiabetic foot ulceracuteFoot pain, bilateralacuteStatus post amputation of toe of left foot acuteStatus post amputation of toe of right footacuteDiabetic foot ulceracute Diabetic infection of left footacuteLeft leg cellulitisacutePAD (peripheral artery disease)acuteStatus post amputation of toe of left footacuteStatus post amputation of toe of right footacuteType 2 diabetes mellitus with peripheral neuropathyacuteUlcer of left foot with fat layer exposedacuteWound infection acuteDiabetes mellituschronic [facility] Work Phone: Evaluation note* Diagnosis Onset Date Resolution Status Chronic ulcer of left foot due to diabet es mellitus acuteDiabetic foot infectionacutePAD (peripheral artery disease)acute Postoperative examinationacuteDiabetes mellituschronicHTN (hypertension), benign chronicInfectionacuteWound infectionacuteDiabetes mellituschronicHTN (hypertension), benignchronicMorbid obesity due to excess calorieschronic CellulitisacuteLeft leg cellulitisacutePVD (peripheral vascular disease)acute Wound infectionacuteDiabetes mellituschronicCellulitisacuteDiabetic foot ulcer acuteFoot pain, bilateralacuteStatus post amputation of toe of left footacute Status post amputation of toe of right footacuteDiabetic foot ulceracuteDiabetic infection of left footacuteLeft leg cellulitisacutePAD (peripheral artery disease)acuteStatus post amputation of toe of left footacuteStatus post amputation of toe of right footacuteType 2 diabetes mellitus with peripheral neuropathyacuteUlcer of left foot with fat layer exposedacuteWound infection acuteDiabetes mellituschronicFoot pain, bilateralacuteType 2 diabetes mellitus with peripheral neuropathyacuteUlcer of left foot with fat layer exposedacute Diabetes mellituschronicHTN (hypertension), benignchronicMorbid obesity due to excess calorieschronic [facility] Work Phone: Evaluation note* Diagnosis Onset Date Resolution Status Infection acuteWound infectionacuteDiabetes mellituschronicHTN (hypertension), benign chronicMorbid obesity due to excess calorieschronicCellulitisacuteLeft leg cellulitisacutePVD (peripheral vascular disease)acuteWound infectionacute Diabetes mellituschronicCellulitisacuteDiabetic foot ulceracuteFoot pain, bilateralacuteStatus post amputation of toe of left footacuteStatus post amputation of toe of right footacuteDiabetic foot ulceracuteDiabetic infection of left footacuteLeft leg cellulitisacutePAD (peripheral artery disease)acute Status post amputation of toe of left footacuteStatus post amputation of toe of right footacuteType 2 diabetes mellitus with peripheral neuropathyacuteUlcer of left foot with fat layer exposedacuteWound infectionacuteDiabetes mellitus chronicCellulitisacuteCounseling regarding advanced care planning and goals of careacuteDiabetic infection of left footacuteFoot pain, bilateralacuteStatus post amputation of toe of left footacuteStatus post amputation of toe of right footacuteType 2 diabetes mellitus with peripheral neuropathyacuteUlcer of left foot with fat layer exposedacuteDiabetes mellituschronicHTN (hypertension), benignchronicMorbid obesity due to excess calorieschronic [facility] Work Phone: Evaluation note* Diagnosis Onset Date Resolution Status Diabetic foot ulcer acuteDiabetic infection of left footacuteLeft leg cellulitisacutePAD (peripheral artery disease)acuteStatus post amputation of toe of left footacuteStatus post amputation of toe of right footacuteType 2 diabetes mellitus with peripheral neuropathyacuteUlcer of left foot with fat layer exposedacuteWound infection acuteDiabetes mellituschronicCellulitisacuteCounseling regarding advanced care planning and goals of careacuteDiabetic infection of left footacuteFoot pain, bilateralacuteStatus post amputation of toe of left footacuteStatus post amputation of toe of right footacuteType 2 diabetes mellitus with peripheral neuropathyacuteUlcer of left foot with fat layer exposedacuteDiabetes mellitus chronicHTN (hypertension), benignchronicMorbid obesity due to excess calories chronic [facility] Work Phone: Evaluation noteNo assessment information available [facility] Work Phone: Evaluation note* Diagnosis Central retinal vein occlusion, right eye, with macular edema- Primary Hypertensive retinopathy, bilateral Type 2 diabetes mellitus without retinopathy (HCC) Type II or unspecified type diabetes mellitus without mention of complication, not stated as uncontrolled Pseudophakia Lens replaced by other means [facility] Diagnosis Central retinal vein occlusion, right eye, with macular edema- Primary [facility] Diagnosis Onset Date Resolution Status Diabetes mellitus with foot ulcer acuteDiabetic foot infectionacuteDry gangreneacuteOsteomyelitisacutePVD (peripheral vascular disease)acute [facility] Work Phone: Evaluation note* Diagnosis Onset Date Resolution Status Cellulitis acuteDiabetes mellitus with foot ulceracuteDiabetic foot infectionacuteDiabetic infection of left footacuteDry gangreneacuteOsteomyelitisacutePAD (peripheral artery disease)acutePeripheral vascular occlusive diseaseacutePVD (peripheral vascular disease)acuteSurgical wound, non healingacuteType 2 diabetes mellitus with peripheral neuropathyacuteUlcer of left foot, limited to breakdown of skin acute [facility] Work Phone: Evaluation note* Diagnosis Onset Date Resolution Status Cellulitis acuteDiabetes mellitus with foot ulceracuteDiabetic foot infectionacuteDiabetic infection of left footacuteDry gangreneacuteOsteomyelitisacutePAD (peripheral artery disease)acutePeripheral vascular occlusive diseaseacutePVD (peripheral vascular disease)acuteSurgical wound, non healingacuteType 2 diabetes mellitus with peripheral neuropathyacuteUlcer of left foot, limited to breakdown of skin acuteNeutrophiliaacutePolycythemiaacute [facility] Work Phone: Evaluation note* Diagnosis Encounter for pre-operative cardiovascular clearance- Primary Type 2 diabetes mellitus with peripheral neuropathy ([facility]/HCC) Essential hypertension ([facility]) Unspecified essential hypertension Stage 2 chronic kidney disease documented in this encounter [facility] HealthcareEvaluation note* Diagnosis Type II diabetes mellitus with neurological manifestations ([facility])- Primary Type II or unspecified type diabetes mellitus with neurological manifestations, not stated as uncontrolled Status post amputation of lesser toe of right foot ([facility]) Status post amputation of lesser toe of left foot ([facility]) Peripheral arterial disease ([facility]) Unspecified peripheral vascular disease Pain in both feet Surgical wound present documented in this encounter [facility] HealthcareEvaluation note* Diagnosis Onset Date Resolution Status Cellulitis acuteDiabetes mellitus with foot ulceracuteDiabetic foot infectionacuteDiabetic infection of left footacuteDry gangreneacutePAD (peripheral artery disease)acute Peripheral vascular occlusive diseaseacutePVD (peripheral vascular disease)acute Surgical wound, non healingacuteType 2 diabetes mellitus with peripheral neuropathyacuteUlcer of left foot, limited to breakdown of skinacuteNeutrophilia acutePolycythemiaacute [facility] Work Phone: Evaluation note* Diagnosis Onset Date Resolution Status Neutrophilia acutePolycythemiaacute [facility] Work Phone: Evaluation note* Diagnosis Onset Date Resolution Status Diabetic foot infection acute [facility] Work Phone: Evaluation note* Diagnosis Chronic bilateral low back pain without sciatica documented in this encounter [facility] HealthcareEvaluation note* Diagnosis Peripheral arterial disease ([facility]/HCC)- Primary Unspecified peripheral vascular disease Type 2 diabetes mellitus with diabetic polyneuropathy, without long-term current use of insulin ([facility]) Surgical wound present Status post amputation of lesser toe of right foot ([facility]) Status post amputation of lesser toe of left foot ([facility]) Type II diabetes mellitus with neurological manifestations ([facility]) Type II or unspecified type diabetes mellitus with neurological manifestations, not stated as uncontrolled Pain in both feet Type 2 diabetes mellitus with diabetic chronic kidney disease ([facility]) Chronic kidney disease, stage 3a (HCC) ([facility]) Immunodeficiency due to conditions classified elsewhere ([facility]) Hyperparathyroidism, unspecified ([facility]) Hyperparathyroidism, unspecified [facility]* Diagnosis Chronic insomnia Insomnia, unspecified documented in this encounter [facility]* Diagnosis Chronic bilateral low back pain without sciatica Acute bronchitis, unspecified organism Acute cough documented in this encounter [facility]* Diagnosis Chronic bilateral low back pain without sciatica documented in this encounter [facility]* Diagnosis Toe infection- Primary Amputation of toe of right foot ([facility]) Medication management documented in this encounter [facility]* Diagnosis Chronic bilateral low back pain without sciatica documented in this encounter [facility]* Diagnosis Chronic bilateral low back pain without sciatica documented in this [facility]* Diagnosis Type 2 diabetes mellitus with diabetic polyneuropathy, without long-term current use of insulin ([facility])- Primary Chronic kidney disease, stage 2 (mild) Essential hypertension ([facility]) Unspecified essential hypertension History of stroke without residual deficits Transient ischemic attack (TIA), and cerebral infarction without residual deficits Moderate major depression ([facility]) Major depressive disorder, single episode, moderate Peripheral arterial disease ([facility]) Unspecified peripheral vascular disease Pure hypercholesterolemia ([facility]) Pure hypercholesterolemia Spinal stenosis of lumbar region without neurogenic claudication Chronic insomnia Insomnia, unspecified RICK (obstructive sleep apnea) Obstructive sleep apnea (adult) (pediatric) Chronic pansinusitis Other chronic sinusitis Yeast dermatitis Chronic bilateral low back pain without sciatica Morbid obesity ([facility]) Morbid obesity Body mass index (BMI) 40.0-44.9, adult ([facility]) Need for immunization against influenza Need for prophylactic vaccination and inoculation against influenza Postoperative hypothyroidism ([facility]) Postsurgical hypothyroidism Cervical cancer screening Screening for malignant neoplasm of the cervix documented in this [facility]* Diagnosis Chronic bilateral low back pain without sciatica documented in this encounter [facility]* Diagnosis PVD (peripheral vascular disease) (CMS/HCC)- Primary Unspecified peripheral vascular disease Diabetes mellitus due to underlying condition with diabetic polyneuropathy, unspecified whether group home insulin use (CMS/HCC) Foot ulcer, left, with fat layer exposed (CMS/HCC) documented in this encounter [facility]* Diagnosis Diabetes mellitus due to underlying condition with diabetic polyneuropathy, unspecified whether salvage determiner insulin use (CMS/HCC)- Primary PVD (peripheral vascular disease) (CMS/HCC) Unspecified peripheral vascular disease Foot ulcer, left, with fat layer exposed (CMS/HCC) documented in this [facility]* Diagnosis Chronic bilateral low back pain without sciatica documented in this encounter [facility]* Diagnosis Diabetes mellitus due to underlying condition with diabetic polyneuropathy, unspecified whether group home insulin use (CMS/HCC)- Primary Foot ulcer, left, with fat layer exposed (CMS/HCC) PVD (peripheral vascular disease) (CMS/HCC) Unspecified peripheral vascular disease documented in this encounter [facility]* Diagnosis Type 2 diabetes mellitus with diabetic polyneuropathy, without long-term current use of insulin (CMS/HCC)- Primary Essential hypertension (CMS/HCC) Unspecified essential hypertension Pure hypercholesterolemia (CMS/HCC) Pure hypercholesterolemia Atherosclerosis of [place] arteries of extremities with rest pain, bilateral legs (CMS/HCC) History of stroke without residual deficits Transient ischemic attack (TIA), and cerebral infarction without residual deficits Metabolic dysfunction-associated steatotic liver disease (MASLD) Chronic insomnia Insomnia, unspecified Thyroid nodule (CMS/HCC) Nontoxic uninodular goiter 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 (CMS/HCC) Diabetes mellitus due to underlying condition with diabetic polyneuropathy, unspecified whether salvage determiner insulin use (CMS/HCC)- Primary Foot ulcer, left, with fat layer exposed (CMS/HCC) documented in this encounter [facility]* Diagnosis Type 2 diabetes mellitus with diabetic polyneuropathy, without long-term current use of insulin (CMS/HCC)- Primary Essential hypertension (CMS/HCC) Unspecified essential hypertension Polyneuropathy associated with underlying disease (CMS/HCC) Atherosclerosis of [place] arteries of extremities with rest pain, bilateral legs (CMS/HCC) History of stroke without residual deficits Transient ischemic attack (TIA), and cerebral infarction without residual deficits Metabolic dysfunction-associated steatotic liver disease (MASLD) Chronic insomnia Insomnia, unspecified Thyroid nodule (CMS/HCC) Nontoxic uninodular goiter 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 (CMS/HCC) Diabetes mellitus due to underlying condition with diabetic polyneuropathy, unspecified whether salvage determiner insulin use (CMS/HCC)- Primary Foot ulcer, left, with fat layer exposed (CMS/HCC) documented in this [facility]* Diagnosis Chronic bilateral low back pain without sciatica Diabetes mellitus due to underlying condition with diabetic polyneuropathy, unspecified whether salvage determiner insulin use (CMS/HCC)- Primary Foot ulcer, left, with fat layer exposed (CMS/HCC) documented in this [facility]* Diagnosis Diabetes mellitus due to underlying condition with diabetic polyneuropathy, unspecified whether salvage determiner insulin use (CMS/HCC)- Primary Foot ulcer, left, with fat layer exposed (CMS/HCC) documented in this encounter [facility]* Diagnosis Chronic insomnia Insomnia, unspecified Diabetes mellitus due to underlying condition with diabetic polyneuropathy, unspecified whether salvage determiner insulin use (CMS/HCC)- Primary Foot ulcer, left, with fat layer exposed (CMS/HCC) documented in this encounter [facility]* Diagnosis Diabetes mellitus due to underlying condition with diabetic polyneuropathy, unspecified whether salvage determiner insulin use (CMS/HCC)- Primary Foot ulcer, left, with fat layer exposed (CMS/HCC) documented in this encounter [facility]* Diagnosis Foot ulcer, left, with fat layer exposed (HCC)- Primary Diabetes mellitus due to underlying condition with diabetic polyneuropathy, unspecified whether group home insulin use (HCC) documented in this encounter [facility]* Diagnosis PVD (peripheral vascular disease)- Primary Unspecified peripheral vascular disease Diabetes mellitus due to underlying condition with diabetic polyneuropathy, unspecified whether salvage determiner insulin use (HCC) Foot ulcer, left, with fat layer exposed (HCC) documented in this encounter [facility]* Diagnosis Chronic bilateral low back pain without sciatica documented in this encounter [facility]* Diagnosis Diabetes mellitus due to underlying condition with diabetic polyneuropathy, unspecified whether group home insulin use (HCC)- Primary Foot ulcer, left, with fat layer exposed (HCC) PVD (peripheral vascular disease) Unspecified peripheral vascular disease documented in this encounter [facility] HealthcareEvaluation note* Diagnosis Chronic bilateral low back pain without sciatica Diabetes mellitus due to underlying condition with diabetic polyneuropathy, unspecified whether salvage determiner insulin use (HCC)- Primary Foot ulcer, left, with fat layer exposed (HCC) documented in this encounter [facility] HealthcareEvaluation note* Diagnosis Type 2 diabetes mellitus with diabetic polyneuropathy, without long-term current use of insulin (HCC)- Primary Essential hypertension Unspecified essential hypertension Peripheral arterial disease Unspecified peripheral vascular disease History of stroke without residual deficits Transient ischemic attack (TIA), and cerebral infarction without residual deficits Metabolic dysfunction-associated steatotic liver disease (MASLD) Chronic insomnia Insomnia, unspecified RICK (obstructive sleep apnea) Obstructive sleep apnea (adult) (pediatric) Class 3 severe obesity due to excess calories with serious comorbidity and body mass index (BMI) of40.0 to 44.9 in adult ([facility]) BMI 40.0-44.9, adult ([facility]) Diabetes mellitus due to underlying condition with diabetic polyneuropathy, unspecified whether salvage determiner insulin use (HCC)- Primary Foot ulcer, left, with fat layer exposed (HCC) documented in this encounter [facility] HealthcareEvaluation note* Diagnosis Onset Date Resolution Status Admit Date Altered mental status acuteAugust 2024 3:08amCellulitisacuteAugust 2024 3:08amOsteomyelitis acuteAugust 2024 3:08am [facility] Work Phone: Evaluation note* Diagnosis Acute CVA (cerebrovascular accident) (HCC)- Primary Type 2 diabetes mellitus with diabetic polyneuropathy, without long-term current use of insulin (HCC) Essential hypertension Unspecified essential hypertension Diarrhea, unspecified type Diabetes mellitus due to underlying condition with diabetic polyneuropathy, unspecified whether salvage determiner insulin use (HCC)- Primary Foot ulcer, left, with fat layer exposed (HCC) PVD (peripheral vascular disease) Unspecified peripheral vascular disease documented in this encounter [facility] HealthcareEvaluation note* Diagnosis Diabetes mellitus due to underlying condition with diabetic polyneuropathy, unspecified whether salvage determiner insulin use (HCC)- Primary Foot ulcer, left, with fat layer exposed (HCC) PVD (peripheral vascular disease) Unspecified peripheral vascular disease documented in this encounter [facility]* Diagnosis Chronic bilateral low back pain without sciatica documented in this encounter [facility]* Diagnosis Type 2 diabetes mellitus with diabetic polyneuropathy, without long-term current use of insulin (HCC)- Primary Morbid obesity ([facility]) Morbid obesity BMI 40.0-44.9, adult ([facility]) SOB (shortness of breath) Shortness of breath Yeast dermatitis Metabolic dysfunction-associated steatotic liver disease (MASLD) Diabetes mellitus due to underlying condition with diabetic polyneuropathy, unspecified whether group home insulin use (HCC)- Primary PVD (peripheral vascular disease) Unspecified peripheral vascular disease Foot ulcer, left, with fat layer exposed (HCC) documented in this encounter [facility]* Diagnosis Chronic bilateral low back pain without sciatica Diabetes mellitus due to underlying condition with diabetic polyneuropathy, unspecified whether salvage determiner insulin use (HCC)- Primary PVD (peripheral vascular disease) Unspecified peripheral vascular disease Foot ulcer, left, with fat layer exposed (HCC) documented in this encounter [facility]* Diagnosis Diabetes mellitus due to underlying condition with diabetic polyneuropathy, unspecified whether salvage determiner insulin use (HCC)- Primary PVD (peripheral vascular disease) Unspecified peripheral vascular disease Foot ulcer, left, with fat layer exposed (HCC) documented in this encounter [facility]* Diagnosis Type 2 diabetes mellitus with diabetic polyneuropathy, without long-term current use of insulin (HCC)- Primary Cellulitis of left lower extremity Chronic bilateral low back pain without sciatica documented in this encounter [facility] and [facility] note Author Raj Craven [facility] November 04, 2021 4:08amNote Date/TimeAugust 2021 3:59[place] [address] Hospitalist H&P Signed Patient: Ema Neff MR#: [id number] : 1965 Acct:[id number] Age/Sex: 56 / F Adm Date: 2 Loc: Room: [address] [place] [address] Type: ADM IN Attending Dr: Raj Oscar [...] 1 on the lateral side of the santos, the patient stated that afterher sami are taken off which was about 10 days ago, she started to have some wound dehiscence with purulent discharge for which patient was placed on Keflex however symptoms continued to get worse and the patient came to the hospital yesterday and was discharged home to follow-upwith her surgeon however she cameback today due [...] injector (Ozempic) 1 mg (0.75mL) subcut QWEEK #3mL 10/17/21 [Rx Confirmed 11/04/21] duloxetine 30 mg [...] is in the lateral side of the santos with purulent discharge and redness around the [...] % (Auto) 28.7 % (.) 11/04/21 00:55 [place]ford % (Auto) 6.5 % (.) 11/04/21 00:55 Eos % (Auto) 3.7 % (.) 11/04/21 00:55 Baso % (Auto) 1.3 % (.) 11/04/21 00:55 Neut # (Auto) 7.3 x10E3/uL (1.8-7.7) 11/04/21 00:55 Lymph # (Auto) 3.5 x10E3/uL (1.00-4.8) 11/04/21 00:55 Woodford # (Auto) 0.8 x10E3/uL (0.0-0.8) 11/04/21 00:55 [...] signed by Raj Oscar MD> 11/04/21 0408 [facility] Work Phone: History and physical note Author Casa Givens [facility] January 28, 2023 7:18pmNote Date/TimeNovember 2022 7:14[place] [address] Hospitalist H&P Signed Patient: Ema Neff MR#: [id number] : 1965 Acct:[id number] Age/Sex: 58 / F Adm Date: 3 Loc: 4N Room: 6W9471-3 Type: ADM IN Attending Dr: Casa Givens [...] week ago, she dropped her phone onher L3rd toe and states the impact from the [...] of days due tothe pain, but otherwise deniesfevers, chills, cough, congestion, sob, palpitations, cp, abd pain, N/V/D. In the ED, vitals stable, afebrile. Labs largely unremarkable. XR of the L foot with cellulitis changes but no definitiveOM noted. Blood and foot cultures were drawn. Pt was given IV abx in the ED. ED spoke with podiatry whorecommended admission to rule out OM given the gangrenous appearance and gas noted on palpation. Ptadmitted for L 3rd toe gangrene and to rule out OM. Podiatry and ID consulted. MRI ordered. Review of Systems Review of Systems All other systems reviewed & are negative unless noted below or in HPI [facility] Medical History (Updated 01/28/23 @ 18:41 [...] due to chronic venous stasis skin changes andPVD MSK: no edema Neurologic: No focal deficits Psych: appropriate affect Results Lab Results Labs: Laboratory Last Values Corrected WBC 12.9 X10E3/uL (3.8-11.6) H 01/28/23 16:30 Uncorrected WBC Count 12.9 x10E3/uL (3.8-11.6) H 01/28/23 16:30 RBC 5.30 X10E6/uL (3.60-5.00) H 01/28/23 16:30 Hgb 16.6 g/dL (11.8-15.4) H 01/28/23 16:30 Hct 49.8 % (34.0-46.4) H 01/28/23 16:30 MCV 94.0 fl (80-100) 01/28/23 16:30 MCH 31.3 pg (24.7-34.3) 01/28/23 16:30 MCHC 33.3 g/dL (32.0-35.0) 01/28/23 16:30 RDW 14.3 % (11.9-15.3) 01/28/23 16:30 Plt Count 315 x10E3/uL (150-450) 01/28/23 16:30 MPV 7.0 fl (6.3-10.7) 01/28/23 16:30 Neut % (Auto) 73.6 % (.) 01/28/23 16:30 Lymph % (Auto) 19.7 % (.) 01/28/23 16:30 Woodford % (Auto) 5.0 % (.) 01/28/23 16:30 Eos % (Auto) 0.4 % (.) 01/28/23 16:30 Baso % (Auto) 1.3 % (.) 01/28/23 16:30 Nucleat RBC Rel Count 0.1 /100 WBC (0-0.5) 01/28/23 16:30 Neut # (Auto) 9.5 x10E3/uL (1.8-7.7) H 01/28/23 16:30 Lymph # (Auto) 2.5 x10E3/uL (1.00-4.8) 01/28/23 16:30 Woodford # (Auto) 0.6 x10E3/uL (0.0-0.8) 01/28/23 16:30 [...] gangrene with surrounding cellulitis.MRI to rule out OM.ID, vascular surgery and podiatry consulted. Cont empiric abx. Follow cultures. Pt/OT when able IP vs OBS Justification Based on differential dx, clinical care plan, and risk of adverse events, if untreated, in my clinical judgement this patient requires an acute care setting as: INPATIENT because of an expectation ofan over 2 midnight stay. Estimated length of stay (# of days): 5 Time Spent With Patient (min): 45 Documented By: Casa Givens DO 01/28/23 190 5 Signed By: <Electronically signed by Casa Givens DO> 01/28/231917 [facility] Work Phone: History general Narrative - Reported* Type Description Date Medical History hypertension Medical HistoryDMMedical HistoryPADSurgical Ecwhioeqolhtcwdnoz2066Voyckysw Historytonsillectomy and adenoidectomySurgical HistorycholecystectomySurgical YpmmqdoWrhknglooxcarej1308Kwkkesxv HistoryablasionSurgical HistoryTonsillectomy 1968Surgical HistoryBilateral tubal [id number] Historyleft cataract removalSurgical HistoryMultiple interlaminar epidural injectionsSurgical History cataract removalSurgical HistorypolypectomySurgical Historyendometrial ablation Surgical HistoryRight posterior tibial atherectomy and bcuajkljuqm98/9/21 Hospitalization Historynatural childbirth x3 BON[facility]UPPORT Other History general Narrative - Reported* Type Description Date Medical History hypertension Medical HistoryDMMedical HistoryPADMedical Historythyroid noduleMedical History goiterSurgical Pcoaezianhrbocbjdo5835Sbpezmrn Historytonsillectomy and adenoidectomySurgical HistorycholecystectomySurgical [id number] Surgical HistoryablasionSurgical VtrresvUudmxibbxrkgl0006Numsgdba History Bilateral tubal himicmvu6883Dmwpaorc Historyleft cataract removalSurgical HistoryMultiple interlaminar epidural injectionsSurgical Historycataract removal Surgical HistorypolypectomySurgical Historyendometrial ablationSurgical History Right posterior tibial atherectomy and hwqsasosogm58/9/21Surgical History thyroidectomyurgical Historyangiogram07/2021Hospitalization Historynatural childbirth e4Dqyrsvaunzdgzye HistorySee Above BONESUPPORT Other History general Narrative - Reported* Type Description Date Medical History hypertension Medical HistoryDMMedical HistoryPADMedical Historythyroid noduleMedical History goiterSurgical Qzxxrjzjmmqiohspzq0072Ispcjlll Historytonsillectomy and adenoidectomySurgical HistorycholecystectomySurgical TxynmqbHsqqfsvzubtdvlr0005 Surgical HistoryablasionSurgical RgdvaagNbfqlafeazcik4040Akxrhcek History Bilateral tubal opddouhz3704Kfgnldco Historyleft cataract removalSurgical HistoryMultiple interlaminar epidural injectionsSurgical Historycataract removal Surgical HistorypolypectomySurgical Historyendometrial ablationSurgical History Right posterior tibial atherectomy and zgjaetzsyyz97/9/21Surgical History thyroidectomyurgical Historyangiogramurgical History angiogram/angioplasty l leg pedalurgical HistoryI & D with wound vac application10/2021Hospitalization Historynatural childbirth [id number] HistorySee Above BONESUPPORT Other History of Present illness Narrative* Ray Hays, DPM - 09/13/2024 4:50 PM EDT Images from the original note were not included. Patient: Ema Neff : 1965 PCP: Jarvis Thrasher MD SUBJECTIVE Pt present today for follow up of ulceration to left foot and 11 wks s/p EDSG Pt denies any n/f/v/c. Patient states that they have been applying ciarra to ulcer. Pt is a DM2. Pt presents today for follow up of staged procedure. She presents today 28 d s/p biopsy of ulceration Patient has had ulcer greater than 2 years with multiple treatments by other providers in the past. Pt has missed prior 2 appts. Allergies: Allergies Allergen Reactions Keegan Inhibitors Cough Hydrocodone Other Reaction(s): Hallucinating Metformin Hcl GI intolerance Ozempic (0.25 Or 0.5 Mg-Dose) [Semaglutide(0.25 Or 0.5mg-Dos)] GI intolerance Pioglitazone Cough Prednisone Unknown Statins Other myalgia Other Reaction(s): Other: See Comments Past Medical History: Past Medical History: Diagnosis Date Allergic rhinitis Amputation of toe of right foot 08/20/2022 Balance disorder Chronic insomnia Chronic low back pain Chronic pansinusitis Claustrophobia Elevated hemoglobin 08/20/2022 Essential hypertension Fatty liver Gastroesophageal reflux disease without esophagitis 08/20/2022 GERD (gastroesophageal reflux disease) Gout Hammer toe High arches History of colon polyps History of CVA (cerebrovascular accident) Hyperlipidemia Leukocytosis Lumbar spinal stenosis Moderate major depression (HCC) 08/20/2021 Morbid obesity (CMS-HCC) Neuromuscular disorder (HCC) RICK (obstructive sleep apnea) Osteoarthritis of lumbar spine PAOD (peripheral arterial occlusive disease) Peripheral neuropathy Postoperative hypothyroidism 09/17/2021 Santos splints Tobacco abuse Type 2 diabetes mellitus with diabetic nephropathy (HCC) Vitamin D deficiency 11/25/2022 Medications: Current Outpatient Medications: albuterol HFA (Ventolin HFA) 90 mcg/act inhaler, Inhale 2 puffs every 4 (four) hours if needed for wheezing or shortness of breath, Disp: 8 g, Rfl: 3 amitriptyline (Elavil) 50 MG tablet, Take 1 tablet (50 mg) by mouth at bedtime, Disp: 90 tablet, Rfl: 3 ASPIRIN 81 MG chewable tablet, 1 (one) time each day at the same time., Disp: , Rfl: atorvastatin (Lipitor) 80 MG tablet, TAKE ONE TABLET BY MOUTH DAILY AT 5PM, Disp: 90 tablet, Rfl: 3 cholecalciferol (Vitamin D-3) 25 MCG tablet, Take 25 mcg by mouth Daily, Disp: , Rfl: clopidogrel (Plavix) 75 MG tablet, Take 1 tablet (75 mg) by mouth Daily, Disp: 90 tablet, Rfl: 3 collagenase (Santyl) 250 UNIT/GM ointment, Apply 1 application topically Daily, Disp: 90 g, Rfl: 2 cyclobenzaprine (Flexeril) 10 MG tablet, Take 1 tablet (10 mg) by mouth as needed at bedtime for muscle spasms, Disp: 90 tablet, Rfl: 3 DULoxetine (Cymbalta) [address] capsule, Take 1 capsule (30 mg) by mouth Daily, Disp: 90 capsule, Rfl: 3 empagliflozin (Jardiance) 25 MG, Take 1 tablet (25 mg) by mouth Daily, Disp: 90 tablet, Rfl: 3 fluticasone (Flonase) 50 MCG/ACT nasal spray, INSTILL TWO SPRAYS IN EACH NOSTRIL DAILY NEEDED, Disp: 16 g, Rfl: 3 gabapentin (Neurontin) 800 MG tablet, Take 1 tablet (800 mg) by mouth in the morning and 1 tablet (800 mg) at noon and 1 tablet (800 mg) in the evening and 1 tablet (800 mg) before bedtime. Take before meals., Disp: 360 tablet, Rfl: 3 glimepiride (Amaryl) 4 MG tablet, Take 1 tablet (4 mg) by mouth in the morning and 1 tablet (4 mg) in the evening. Take with meals., Disp: 180 tablet, Rfl: 3 levothyroxine (Synthroid, Levoxyl) 150 MCG tablet, Take 1 tablet (150 mcg) by mouth in the morning.Take on an empty stomach.., Disp: 90 tablet, Rfl: 3 losartan (Cozaar) 50 MG tablet, Take 1 tablet (50 mg) by mouth Daily, Disp: 90 tablet, Rfl: 3 meclizine (Antivert) 25 MG tablet, Take 1 tablet (25 mg) by mouth 3 (three) times a day as needed for dizziness, Disp: 90 tablet, Rfl: 11 meloxicam (Mobic) 15 MG tablet, Take 1 tablet (15 mg) by mouth Daily, Disp: 90 tablet, Rfl: 3 metoprolol succinate XL (Toprol-XL) 50 MG 24 hr tablet, Take 1 tablet (50 mg) by mouth Daily, Disp:90 tablet, Rfl: 3 nystatin (Mycostatin) ointment, Apply topically every 12 (twelve) hours, Disp: 15 g, Rfl: 2 omeprazole (PriLOSEC) [address] capsule, Take 1 capsule (40 mg) by mouth in the morning. Take beforemeals. Do not crush or chew.., Disp: 90 capsule, Rfl: 3 ondansetron (Zofran) 8 MG tablet, TAKE ONE TABLET (8MG) BY MOUTH EVERY 8 HOURS NEEDED FOR NAUSEAOR VOMITING, Disp: 20 tablet, Rfl: 1 oxyCODONE (Roxicodone) 10 MG immediate release tablet, Take 1 tablet (10 mg) by mouth every 4 (four) hours if needed for severe pain, Disp: 180 tablet, Rfl: 0 triamcinolone (Kenalog) 0.5 % cream, , Disp: , Rfl: zolpidem (Ambien) 10 MG tablet, Take 1 tablet (10 mg) by mouth at bedtime, Disp: 90 tablet, Rfl: 1 Social History: Social History Socioeconomic History Marital status: Spouse name: Not on file Number of children: 3 Years of education: Not on file Highest education level: Not on file Occupational History Occupation: disabled Comment: unemployed Tobacco Use Smoking status: Former Current packs/day: 0.00 Average packs/day: 1 pack/day for 36.0 years (36.0 ttl pk-yrs) Types: Cigarettes Start date: 03/15/1985 Quit date: 03/15/2021 Years since quittin.5 Smokeless tobacco: Never Vaping Use Vaping status: Never Used Substance and Sexual Activity Alcohol use: Never Comment: caffeine: 2-3 cups per day coffee Drug use: Never Sexual activity: Yes Partners: Male control/protection: Post-menopausal Other Topics Concern Not on file Social History Narrative Living with: Boyfriend Social Drivers of Health Financial Resource Strain: Not on file Food Insecurity: Not on file Transportation Needs: Not on file Physical Activity: Not on file Stress: Not on file Social Connections: Not on file Intimate Partner Violence: Not on file Housing Stability: Not on file ROS: General: denies fever, chills, fatigue, malaise Gastrointestinal: denies abdominal pain, ulcers, or changes in appetite or bowel habits Musculoskeletal: positive history of back arthritis Cardiovascular: denies CP, palpitations, irregular rhythms. Positive history of stents to the rightleg in the past 6 months OBJECTIVE LE EXAM: DERM: negative hair growth to b/l feet with thin skin noted. left dorsum of prior amputation site graft intact with ulceration to subcutaneous tissue that measures 0.8m x 0.5cm x 0.2 cm with diminished fibrous slough and slight serous drainage with negative probe to bone VASC: non Palpable pedal pulsed b/l with warm to cool tibia to toes b/l NEURO: 5.07 [place] monofilament test intact to digits and forefoot bilaterally 125Hz tuning fork diminished to 1st MPJ bilaterally ORTHO: +5/5 DF/PF/IN/EV right, +5/5 DF/PF/IN/EV left. 20 degrees inversion and 10 degrees eversion STJ b/l. Ankle ROM less than 10 degrees b/l. Positive pain on palpation to left foot ulcer PATH: ASSESSMENT 1. Diabetes mellitus due to underlying condition with diabetic polyneuropathy, unspecified whether salvage determiner insulin use ([facility]) 2. Foot ulcer, left, with fat layer exposed ([facility]) 3. PVD (peripheral vascular disease) PLAN Reviewed pathology report today with patient Sharp debridement with 15 blade of subcutaneous ulceration to left foot with active bleeding noted and removal and excision of fibrotic and necrotic tissue to wound and DSD applied with neosporin. Ptto continue with ciarra daily. Todays procedure is a staged procedure and may need further procedures in the future. Will order DEREK PVRs and to follow up in 2 weeks and discussed possible PuraPly of healing potentialif not referral back to Vascular narendra Mon as he has seen her in the past Ray Hays DPM [facility] Additional Instructions Follow-up with your primary care doctor and greeter Return to the ED if you develop worsening [facility] Discharge instructions Additional [...] first post-op visit, call the office at [phone] anytime. We have an answering service which will contact the doctor at anytime. -Call the office to schedule a post-operative appointment.[facility] Work Phone: Hospital Discharge instructions Additional [...] first post-op visit, call the office at [phone] anytime. We have an answering service which will contact the doctor at anytime. -Call the office to schedule a post-operative appointment.[facility] Work Phone: Hospital Discharge instructionsAmbulatory Orders* Initiate [...] ordered - [facility] - [facility] Work Phone: Hospital Discharge instructions Additional [...] first post-op visit, call the office at [phone] anytime. We have an answering service which will contact the doctor at anytime. -Call the office to schedule a post-operative appointment.[facility] Work Phone: Hospital Discharge instructions Additional Instructions Call office to reschedule.[facility] Work Phone: Hospital Discharge instructions Additional [...] per day during your recovery period. ACTIVITY -Patient must have postop shoes intact when out of bed for any weightbearing or transfers. Use walker or wheelchair to offload forefoot is much as possible bilateral forefoot. -Restrict your activity and stay off your [...] first post-op visit, call the office at [phone] anytime. We have an answering service which will contact the doctor at anytime. -Call the office to schedule a post-operative appointment.[facility] Work Phone: Hospital Discharge instructionsAmbulatory Orders* Referral to Podiatry Location: None Selected [facility] Work Phone: Hospital Discharge instructions Additional Instructions DISCHARGE INSTRUCTIONS FOR PROCEDURE Podiatry, Dr. Hays -If you having excessive or persistent pain, swelling, bleeding, nausea, vomiting, or any other problems, you should first call your surgeon for advice. If you are unable to contact your surgeon, seek help from a hospital emergency room. If you were given drugs to make you drowsy and or pain medication, follow these instructions: -Follow carefully any verbal or written instructions your surgeon may have given you. SURGEON S WRITTEN INSTRUCTIONS -Keep bandage clean and dry and DO NOT REMOVE -Keep foot elevated -minimal weight bearing to Post-operative foot -Take pain medications as directed -Do not be alarmed if you notice slight bleeding on the bandage, this is normal. -Report any increase in swelling to Dr. Hays immediately -Resume regular diet Call the office if you develop: -Persistent bleeding -Temperature above 100 degrees Fahrenheit. -Persistent vomiting -Calf pain or shortness of breath -Redness or pus at operative site FOLLOW UP Phone numbers: Office [phone] [ ][facility] Work Phone: Hospital Discharge instructions Additional Instructions Continue dressing changes per chronic orders.[facility] Work Phone: Hospital Discharge instructionsAdditional Instructions - Your discharge antibiotic (Linezolid) interacts with your Cymbalta and amitriptyline, please make sure not to take these until you complete your antibiotics - Please call to schedule your follow up with your vascular surgeon, Dr. Mon, to discuss the possibility of future foot amputation - If your have recurrence of fevers, chills, mentation, foot pain, please return to the ER as you may have worsening infection and may need amputation at that time Follow-up with the [facility] later this week as previously scheduled.[facility] Work Phone: Progress note Author Adithya Rm [facility] October 12, 2021 7:56pmNote Date/TimeJuly 2021 7:56pm[place] [address] Internal Med Progress Note Signed Patient: Ema Neff MR#: [id number] : 1965 Acct:[id number] Age/Sex: 56 / F Adm Date: 2 Loc: Room: [address] [place] [address] Type: DIS IN Attending Dr: Adithya Rm DO Copies to: ~ Date of Service: 10/12/2021 Internal Medicine Subjective Subjective HPI: This patient was discharged on October 10. Here on October 12 culture results came back from the deep wound culture from the podiatry surgery from Dr. Torres. [facility] got hold [...] electronically to the retail pharmacy here at [facility] so she can pick it up [...] wound culture from podiatric surgery by Dr. Torres on 10/07/2021. (2) Ulcer of right foot with fat layer exposed: (3) Peripheral vascular occlusive disease: (4) Osteomyelitis: Documented By: Adithya Rm DO 1952 Signed By: <Electronically signed by Adithya Rm DO> 10/12/211955 [facility] Work Phone: Progress note Author Dean Rodriguez [facility] November 04, 2021 2:51pmNote Date/TimeAugust 2021 2:51pmFris[place] [address] Hospitalist Progress Note Signed Patient: Ema Neff MR#: [id number] : 1965 Acct:[id number] Age/Sex: 56 / F Adm Date: 2 Loc: 3T Room: [address] [place] [address] Type: ADM IN Attending Dr: Dean Rodriguez [...] Tablet PO 11/04/22 13:59 Not Given QID [facility] Amitriptyline HCl 50 mg 11/04/21 22:00 Amitriptyline 50 Mg Tablet PO 11/04/22 21:59 HS [facility] Aspirin 81 mg 11/04/21 09:00 11/04/21 09:26 Aspirin [address] ZAMBRANO 11/04/22 08:59 81 mg DAILY PAULINO Administration [...] Propionate 1 spray 11/04/21 03:55 Fluticasone Propionate [place] 120 [place]/16 Gm Bottle INTRANASAL 11/04/22 03:54 QHS PRN [...] Insuln.Pen SUBCUT 11/04/22 07:59 Not Given TID.WM.HS [facility] Protocol Insulin Detemir 10 units 11/04/21 09:00 [...] <Electronically signed by Dean Rodriguez MD> 11/04/21 1450 [facility] Work Phone: Progress note Author Dean Rodriguez [facility] November 05, 2021 2:23pmNote Date/TimeAugust 2021 2:23pm[place] [address] Hospitalist Progress Note Signed Patient: Ema Neff MR#: [id number] : 1965 Acct:[id number] Age/Sex: 56 / F Adm Date: 2 Loc: Room: [address] [place] [address] Type: ADM IN Attending Dr: Dean Rodriguez [...] Propionate 1 spray 11/04/21 03:55 Fluticasone Propionate [place] 120 [place]/16 Gm Bottle INTRANASAL 11/04/22 03:54 QHS PRN [...] Insuln.Pen SUBCUT 11/04/22 07:59 Not Given TID.WM.HS [facility] Protocol Insulin Detemir 10 units 11/04/21 09:00 11/05/21 09:37 Insulin Detemir 300 Units/3 Ml Insuln.Pen SUBCUT 11/04/22 08:59 Not Given DAILY [facility] Levothyroxine Sodium 125 mcg 11/04/21 06:30 11/05/21 06:57 Levothyroxine 125 Mcg Tablet PO 11/04/22 06:29 125 mcg DAILY@0630 PAULINO Administration Metoprolol Succinate 50 mg 11/04/21 09:00 11/05/21 09:38 Metoprolol Succinate 50 Mg Tab.Er.24h PO 11/04/22 08:59 Not Given DAILY [facility] Ondansetron HCl 4 mg 11/04/21 03:51 11/04/21 21:09 Ondansetron 4 Mg/2 Ml Vial IV-PUSH 11/04/22 03:50 4 mg Q8H PRN Administration Nausea And Vomiting Oxycodone HCl 5 mg 11/04/21 12:15 11/04/21 20:05 Oxycodone Ir 5 Mg Tablet PO 5 mg Q4HR PRN Administration pain Rivaroxaban 10 mg 11/05/21 09:00 11/05/21 09:38 Rivaroxaban 10 Mg Tablet PO 11/05/22 08:59 Not Given DAILY [facility] Sodium Chloride 0 ml 11/03/21 21:00 11/05/21 06:57 Sodium Chloride 0.9 % 10 Ml Syringe IV-PUSH 11/03/22 20:59 10 ml PRN PRN Administration Flush Vancomycin HCl 1 each 11/04/21 03:51 Vancomycin - Pharmacy Dosing 1 Each Miscell IV PRN PRN ZZ.Pharmacy Consult Protocol Documented By: Dean Rodriguez MD 11/05/211421 Signed By: <Electronically signed by Dean Rodriguez MD> 11/05/21 142 [facility] Work Phone: Progress note Author Zaid Mon [facility] November 05, 2021 3:04pmNote Date/TimeAugust 2021 3:04pmF[place] [address] Vascular Surgery Progress Note Signed Patient: Ema Neff MR#: [id number] : 1965 Acct:[id number] Age/Sex: 56 / F Adm Date: 2 Loc: Room: [address] [place] [address] Type: ADM IN Attending Dr: Dean Rodriguez [...] Acute Documented By: Zaid Mon MD 11/05/21 0575 Signed By: <Electronically signed by Zaid Mon MD> 11/05/21 6206 [facility] Work Phone: Progress note Author Dean Rodriguez [facility] November 07, 2021 10:07amNote Date/TimeAugust 2021 10:07[place] [address] Hospitalist Progress Note Signed Patient: Ema Neff MR#: [id number] : 1965 Acct:[id number] Age/Sex: 56 / F Adm Date: 2 Loc: Room: [address] [place] [address] Type: ADM IN Attending Dr: Dean Rodriguez [...] Propionate 1 spray 11/04/21 03:55 Fluticasone Propionate [place] 120 [place]/16 Gm Bottle INTRANASAL 11/04/22 03:54 QHS PRN [...] Insuln.Pen SUBCUT 11/04/22 07:59 3 units TID.WM.HS APULINO Administration Protocol Insulin Detemir 10 units 11/04/21 [...] <Electronically signed by Dean Rodriguez MD> 11/07/[address] [place] [address] Work Phone: Progress note Author Dean Rodriguez [facility] November 07, 2021 10:10amNote Date/TimeAugust 2021 10:10[place] [address] Hospitalist Progress Note Signed Patient: Ema Neff MR#: [id number] : 1965 Acct:[id number] Age/Sex: 56 / F Adm Date: 2 Loc: Room: [address] [place] [address] Type: ADM IN Attending Dr: Dean Rodriguez [...] Propionate 1 spray 11/04/21 03:55 Fluticasone Propionate [place] 120 [place]/16 Gm Bottle INTRANASAL 11/04/22 03:54 QHS PRN [...] signed by Dean Rodriguez MD> 11/07/21 1010 [facility] Work Phone: Progress note Author Dean Rodriguez [facility] November 08, 2021 2:52pmNote Date/TimeAugust 2021 2:52[place] [id number] Hospitalist Progress Note Signed Patient: Ema Neff MR#: [id number] : 1965 Acct:[id number] Age/Sex: 56 / F Adm Date: 2 Loc: Room: [address] [place] [address] Type: ADM IN Attending Dr: Dean Rodriguez MD Copies to: ~ Date of Service: 11/08/2021 Subjective Subjective Narrative: Pain in the leg and in the foot is severe, not well controlled, requiring administration of [id number] Dilaudid. Wound VAC is in place. Heart [...] 11/04/21 09:00 11/08/21 09:13 Duloxetine [address] ZAMBRANO 11/04/22 08:59 30 mg DAILY PAULINO Administration Fentanyl 25 mcg 11/08/21 14:00 Fentanyl Patch 25 Mcg/Hour Patch.Td72 TRANSDERML Q72HR [facility] Protocol Fluticasone Propionate 1 spray 11/04/21 03:55 Fluticasone Propionate [place] 120 [place]/16 Gm Bottle INTRANASAL 11/04/22 03:54 QHS PRN [...] Tablet PO 11/04/22 06:29 Not Given DAILY@0630 [facility] Metoprolol Succinate 50 mg 11/04/21 09:00 11/08/21 [...] <Electronically signed by Dean Rodriguez MD> 11/08/211451 [facility] Work Phone: Progress note Author CWS Kanu Torres [facility] March 27, 2022 4:34pmNote Date/TimeJan2022 4:35pm[place] [address] Progress Note Signed Patient: Ema Neff MR#: [id number] : 1965 Acct:[id number] Age/Sex: 57 / F Adm Date: 3 Loc: [place] Room: Type: [facility] Attending Dr: Kanu Torres DPM, Copies to: ~ Date of Service: 03/27/2022 Progress Narrative Note PROGRESS NOTE Progress Note: Surgeon of record: Kanu Torres D.P.M., MS, FACFAS. Assistants: None. Preop diagnosis [...] ulceration of left foot medial diabetic ulceration andleft distal hallux medial aspect diabetic ulceration: Less [...] ulceration with sterile alcohol solution followed by atotalof 15 cc of 0.5% Marcaine plain please note throughout the procedure no epinephrine or tourniquet was used. Patient was now prepped and draped with sterile Betadine solution scrub and paint and was draped inusual standard fashion. Right foot second toe amputation [...] 0.4 cm time 0.2 cm. I performed sharp,wide, excisional ulceration debridement of all nonviable tissue [...] tissues including bone, joint, tendon, or capsule. Nosign of any deep infection or purulence or [...] for date and time. Documented By: Kanu Torres,TERESA, , AUTUMN 03/15 06/04 1522 Signed By: <Electronically signed by TERESA Torres> 03/27/22 3615 [facility] Work Phone: Progress note Author Casa Givens [facility] January 29, 2023 3:08pmNote Date/TimeNov2022 3:08pmFIREdward [place] [id number] Hospitalist Progress Note Signed Patient: Ema Neff MR#: [id number] : 1965 Acct:[id number] Age/Sex: 58 / F Adm Date: 3 Loc: 4N Room: 5U8860-6 Type: ADM IN Attending Dr: Casa Givens [...] due to chronic venous stasis skin changes andPVD MSK: no edema Objective Lab Results 01/29/23 [...] Lactated Ringers IV 01/28/24 18:44 75 mls/hr .[id number] PAULINO Administration Vancomycin HCl 1.25 gm/ 275 [...] Insuln.Pen SUBCUT 01/28/24 21:59 Not Given TID.WM.HS [facility] Protocol Levothyroxine Sodium 150 mcg 01/29/23 06:30 [...] signed by Casa Givens DO> 01/29/23 1508 [facility] Work Phone: Progress note Author Casa Givens [facility] January 30, 2023 2:40pmNote Date/TimeNov2022 2:40pm[place] [address] Hospitalist Progress Note Signed Patient: Ema Neff MR#: [id number] : 1965 Acct:[id number] Age/Sex: 58 / F Adm Date: 3 Loc: Room: [address] [place] [address] Type: ADM IN Attending Dr: Casa Givens [...] due to chronic venous stasis skin changes andPVD MSK: no edema Objective Lab Results 01/30/23 [...] 01/29/23 09:00 01/30/23 08:15 Aspirin 81 Mg Tablet.Dr PO 01/29/24 08:59 81 mg QAM PALUINO Administration Atorvastatin Calcium 40 mg 01/29/23 09:00 [...] Lactated Ringers IV 01/28/24 18:44 75 mls/hr .[id number] PAULINO Administration Vancomycin HCl 1.25 gm/ 275 [...] Insuln.Pen SUBCUT 01/28/24 21:59 Not Given TID.WM.HS [facility] Protocol Levothyroxine Sodium 150 mcg 01/29/23 06:30 [...] signed by Casa Givens DO> 01/30/23 1440 [facility] Work Phone: Progress note Author CWThanh wallis [facility] January 30, 2023 3:13pmNote Date/TimeNovember 2022 2:59pmMatthew V[place] [id number] Podiatry Progress Note Signed Patient: Ema Neff MR#: [id number] : 1965 Acct:[id number] Age/Sex: 58 / F Adm Date: 3 Loc: 4N Room: [address] [place] [address] Type: ADM IN Attending Dr: Casa Givens DO Copies to: ~ Subjective Subjective Date of Service: Date of Service: 01/30/2023 Time of Service: 14:57 Narrative: Ms. Neff is a 58 year old female who is typically followed by my partner Dr. Torres. She has recently undergone second left toe [...] no further intervention is available. Ischemia is likelycontributing to her lower extremity pain as well. She deniesany fever or chills. She feels that sheis somewhat better today particularly with regard to [...] the treatment options with patientat length. She wouldlike to pursue wound further wound care at [...] patient Iwould recommend compounded nifedipine gel from [facility] which can be used around her wounds to try to increase blood flow and promote further healing. Apparently this option was presented to her in the past but she did not wish to pay the qbi-su-potvyn cost for this medication. She is reconsidering this option at this time and we will contact [employer] with regards to the cost. Her questions [...] polyneuropathy Documented By: Ayan Deluna DPM, AUTUMN 1457 Signed By: <Electronically signed by TERESA Deluna> 01/30/23 2684 [facility] Work Phone: Progress note Author AUTUMN wallis [facility] January 31, 2023 12:58pmNote Date/TimeNov2022 12:27pm[place] [address] Podiatry Progress Note Signed Patient: Ema Neff MR#: [id number] : 1965 Acct:[id number] Age/Sex: 58 / F Adm Date: 3 Loc: 4N Room: [address] [place] [address] Type: ADM IN Attending Dr: Casa Givens DO Copies to: ~ Subjective Subjective Date of Service: Date of Service: 01/31/2023 Time of Service: 12:25 Narrative: Ms. Neff is a 58 year old female who is typically followed by my partner Dr. Torres. She has recently undergone second left toe [...] no further intervention is available. Ischemia is likelycontributing to her lower extremity pain as well. [...] report pulmonary report indicates light growth of corynebacteriumstriatum. X-rays did not reveal obvious erosivechanges suggestive of osteomyelitis. MRI study was completed and was somewhat compromised by motion artifact. No abscesses were noted and no bone marrowedema was noted within the underlying osseous structures [...] the treatment options with patientat length. She wouldlike to pursue wound further wound care at [...] Advised patient that upon discharge, I would recommendcompounded nifedipine gelfrom [facility] which can be used around her wounds to try to increase blood flow and promote further healing. Apparently this option was presented to her in the past but she did not wish to pay the ioj-ey-pwvnrw cost for this medication. She is reconsidering [...] will be clear from a podiatric standpoint f or discharge with continued wound care at home [...] By: <Electronically signed by TERESA Deluna> 01/31/23 1258 [facility] Work Phone: Progress note Author Casa Givens [facility] January 31, 2023 4:03pmNote Date/TimeNov2022 4:02pmF[place] [address] Hospitalist Progress Note Signed Patient: Ema Neff MR#: [id number] : 1965 Acct:[id number] Age/Sex: 58 / F Adm Date: 3 Loc: 4N Room: [id number] Type: ADM IN Attending Dr: Casa Givens [...] due to chronic venous stasis skin changes andPVD MSK: no edema Objective Lab Results 01/31/23 [...] Jamesq PRN Reason Stop Dose Admin Acetaminophen 650 [...] 08:54 Clopidogrel Bisulfate 75 Mg Tablet PO 11/16/24 08:59 75 mg QAM PAULINO Administration Collagenase [...] Lactated Ringers IV 01/28/24 18:44 75 mls/hr .[id number] PAULINO Administration Piperacillin Sod/Tazobactam Sod 3.375 gm [...] signed by Casa Givens DO> 01/31/23 1603 [facility] Work Phone: Progress note Author Rolando Sykes [facility] February 01, 2023 9:00amNote Date/TimeNov2022 9:00[place] [address] Infect. Disease Progress Note Signed Patient: Ema Neff MR#: [id number] : 1965 Acct:[id number] Age/Sex: 58 / F Adm Date: 3 Loc: 4N Room: [address] [place] [address] Type: ADM IN Attending Dr: Casa Givens [...] to touch. Warmth going up the anterior santos. Some stasis changes noted of the santos Neuro General: patient oriented x3 Extrem General: [...] (Aspirin 81 Mg Tablet.) 81 mg PO [facility] Stop: 01/29/24 08:59 Last Admin: 02/01/23 08:25 Dose: 81 mg Atorvastatin Calcium (Atorvastatin 40 Mg Tablet) 40 mg PO [facility] Stop: 01/29/24 08:59 Last Admin: 02/01/23 08:25 Dose: 40 mg Clopidogrel Bisulfate (Clopidogrel Bisulfate 75 Mg Tablet) 75 mg PO QAM [facility] Stop: 01/29/24 08:59 Last Admin: 02/01/23 08:35 Dose: 75 mg Collagenase (Collagenase 250 Unit/Gm Oint 30 Gm Tube) 1 applic TOPICAL DAILY [facility] Stop: 01/29/24 10:59 Last Admin: 02/01/23 08:28 Dose: 1 applic Sodium Chloride 500 ml/ (Cefazolin Sodium 1 gm) 0 ml IRRIGATION ONCE ONE Stop: 02/01/23 17:01 Dextrose (Dextrose 50% In Water 25 Gm/50 Ml Syringe) 0 gm IV-PUSH PRN PRN PRN Reason: Hypoglycemia Stop: 01/28/24 18:39 Last Admin: 01/29/23 05:35 Dose: 25 gm Docusate Sodium (Docusate 100 Mg Capsule) 100 mg PO BID [facility] Stop: 01/28/24 20:59 Last Admin: 02/01/23 08:28 Dose: Not Given Gabapentin (Gabapentin 800 Mg Tablet) 800 mg PO QID [facility] Stop: 01/28/24 21:59 Last Admin: 02/01/23 08:25 [...] Ringers) 1,000 mls @ 75 mls/hr IV .[id number] [facility] Stop: 01/28/24 18:44 Last Admin: 02/01/23 08:23 Dose: 75 mls/hr Piperacillin Sod/Tazobactam Sod (Zosyn) 3.375 gm in 100 mls @ 200 mls/hr IV Q6HSCH Last Admin: 02/01/23 08:35 Dose: 200 mls/hr Vancomycin HCl (Vancomycin) 1 gm in 250 mls @ 250 mls/hr IV Q12H [facility] Last Admin: 02/01/23 05:56 Dose: 250 mls/hr Lactated Ringer's (Lactated Ringers) 1,000 mls @ 20 mls/hr IV .Q24H ONE Stop: 02/02/23 07:59 Last Admin: 02/01/23 08:24 Dose: Not Given Insulin Aspart (Insulin Aspart 300 Units/3 Ml Insuln.Pen) 0 units SUBCUT TID.[facility]; Protocol Stop: 01/28/24 21:59 Last Admin: 02/01/23 08:21 Dose: Not Given Levothyroxine Sodium (Levothyroxine 150 Mcg Tablet) 150 mcg PO DAILY@0630 [facility] Stop: 01/29/24 06:29 Last Admin: 02/01/23 05:56 Dose: 150 mcg Lidocaine HCl (Lidocaine 1% 50 Ml Vial) 0.1 ml INTRADERMA PREOP PRN PRN Reason: Venipuncture x 1 Dose Losartan Potassium (Losartan 50 Mg Tablet) 50 mg PO [facility] Stop: 01/29/24 08:59 Last Admin: 02/01/23 08:25 Dose: 50 mg Metoprolol Succinate (Metoprolol Succinate 50 Mg Tab.Er.24h) 50 mg PO [facility] Stop: 01/29/24 08:59 Last Admin: 02/01/23 08:25 [...] healing has to be considered given the resultsof her vascular study. Ultimately feel that if [...] signed by MD Rolando Sykes> 02/01/23 0900 [facility] Work Phone: Progress note Author Rolando Sykes [facility] February 02, 2023 9:08amNote Date/TimeNov2022 9:06[place] [address] Infect. Disease Progress Note Signed Patient: Ema Neff MR#: [id number] : 1965 Acct:[id number] Age/Sex: 58 / F Adm Date: 3 Loc: 4N Room: [address] [place] [address] Type: ADM IN Attending Dr: Ryland Liu MD Copies to: ~ Date of Service: 02/02/2023 Subjective Interval history: Patient did get her PICC line yesterday. She is status post wound debridement of the lesions on thesecond left toe amputation site and dorsal third [...] (Aspirin 81 Mg Tablet.) [facility] Stop: 01/29/24 08:59 Last Admin: 02/02/23 08:02 Dose: 81 mg Atorvastatin Calcium (Atorvastatin 40 Mg Tablet) 40 mg PO QAM [facility] Stop: 01/29/24 08:59 Last Admin: 02/02/23 08:02 Dose: 40 mg Clopidogrel Bisulfate (Clopidogrel Bisulfate 75 Mg Tablet) 75 mg PO QAM [facility] Stop: 01/29/24 08:59 Last Admin: 02/02/23 08:02 Dose: 75 mg Collagenase (Collagenase 250 Unit/Gm Oint 30 Gm Tube) 1 applic TOPICAL DAILY PAUL[facility] Stop: 01/29/24 10:59 Last Admin: 02/02/23 08:04 [...] 100 Mg Capsule) 100 mg PO BID [facility] Stop: 01/28/24 20:59 Last Admin: 02/02/23 08:06 Dose: Not Given Gabapentin (Gabapentin 800 Mg Tablet) 800 mg PO QID [facility] Stop: 01/28/24 21:59 Last Admin: 02/02/23 08:02 Dose: 800 mg Glucose (Dextrose 40% Gel 15 Gm Tube) 0 gm PO PRN PRN PRN Reason: Hypoglycemia Stop: 01/28/24 18:39 Heparin Sodium (Porcine) (Heparin-Lock 500 Unit/5 Ml Syringe) 500 unit IV-PUSH Q24H [facility] Stop: 02/01/24 13:59 Last Admin: 02/01/23 14:59 Dose: Not Given Hydralazine HCl (Hydralazine 20 Mg/Ml Vial) 10 mg IV-PUSH Q4H PRN PRN Reason: Hypertension Stop: 01/28/24 18:39 Hydromorphone HCl (Hydromorphone 1 Mg/Ml Syringe) 1 mg IV-PUSH Q3H PRN PRN Reason: Pain Scale 8 - 10 Last Admin: 02/02/23 07:58 Dose: 1 mg Lactated Ringer's (Lactated Ringers) 1,000 mls @ 75 mls/hr IV .[id number] [facility] Stop: 01/28/24 18:44 Last Admin: 02/02/23 05:46 Dose: 75 mls/hr Piperacillin Sod/Tazobactam Sod (Zosyn) 3.375 gm in 100 mls @ 200 mls/hr IV Q6HS Last Admin: 02/02/23 07:57 Dose: 200 mls/hr Vancomycin HCl (Vancomycin) 1 gm in 250 mls @ 250 mls/hr IV Q12H [facility] Last Admin: 02/02/23 05:40 Dose: 250 mls/hr Insulin Aspart (Insulin Aspart 300 Units/3 Ml Insuln.Pen) 0 units SUBCUT TID.[facility]; Protocol Stop: 01/28/24 21:59 Last Admin: 02/02/23 08:02 Dose: 3 units Levothyroxine Sodium (Levothyroxine 150 Mcg Tablet) 150 mcg PO DAILY@0630 [facility] Stop: 01/29/24 06:29 Last Admin: 02/02/23 05:45 Dose: 150 mcg Lidocaine HCl (Lidocaine 1% 50 Ml Vial) 0.1 ml INTRADERMA PREOP PRN PRN Reason: Venipuncture x 1 Dose Loperamide HCl (Loperamide 2 Mg Capsule) 2 mg PO Q2H PRN PRN Reason: Diarrhea Stop: 02/01/24 13:56 Last Admin: 02/02/23 08:05 Dose: 2 mg Losartan Potassium (Losartan 50 Mg Tablet) 50 mg PO [facility] Stop: 01/29/24 08:59 Last Admin: 02/02/23 08:02 Dose: 50 mg Metoprolol Succinate (Metoprolol Succinate 50 Mg Tab.Er.24h) 50 mg PO [facility] Stop: 01/29/24 08:59 Last Admin: 02/02/23 08:06 [...] to predict what potential surgical operative culture collect ed yesterday will grow if discharge is warranted before this information is back could consider just IV vancomycin for a couple week treatment period. May have to adjust choice of antibiotic if culture results suggest different pathogen present. Documented By: Rolando Sykes MD 02/02/23 0902 Signed By: <Electronically signed by MD Rolando Sykes> 02/02/23 0908 [facility] Work Phone: Progress note Author Ryland Liu [facility] February 02, 2023 11:52amNote Date/TimeNov2022 11:[address] [address] Hospitalist Progress Note Signed Patient: Ema Neff MR#: [id number] : 1965 Acct:[id number] Age/Sex: 58 / F Adm Date: 3 Loc: 4N Room: [address] [place] [address] Type: ADM IN Attending Dr: Ryland Liu [...] at home. She reports that this has b een her pain regimen over the past 5 [...] Lactated Ringers IV 01/28/24 18:44 75 mls/hr .[id number] [facility] Administration Vancomycin HCl 1 gm in [...] her pain remains severe at this time. Isuspect hyperalgesia in the setting of chronic opioid [...] follow-up for organism. PT/OT, patient will likely [facility]. Will need to wean patient's pain medication to a reasonable regimen before going home Documented By: Ryland Liu MD 3 1129 Signed By: <Electronically signed by Ryland Liu MD> 02/02/23 1152 [facility] Work Phone: Progress note Author Zaid Mon [facility] February 02, 2023 12:26pmNote Date/TimeNov2022 12:27[place] [address] Vascular Surgery Progress Note Signed Patient: Ema Neff MR#: [id number] : 1965 Acct:[id number] Age/Sex: 58 / F Adm Date: 3 Loc: 4N Room: 8Q1347-5 Type: ADM IN Attending Dr: Ryland Liu MD Copies to: ~ Date of Service: 02/02/2023 Subjective Subjective Interval history: This patient was seen on rounds today. Her greeter Dr. Umaña follows in [facility]. She was not really complaining of [...] MPV Neut % (Auto) Lymph % (Auto) [place] % (Auto) Eos % (Auto) Baso % (Auto) Nucleat RBC Rel Count Neut # (Auto) Lymph # (Auto) [place] # (Auto) Eos # (Auto) Baso # [...] MPV Neut % (Auto) Lymph % (Auto) [place] % (Auto) Eos % (Auto) Baso % (Auto) Nucleat RBC Rel Count Neut # (Auto) Lymph # (Auto) [place] # (Auto) Eos # (Auto) Baso # [...] % (Auto) 70.4 Lymph % (Auto) 18.5 [place] % (Auto) 7.3 Eos % (Auto) 3.0 Baso % (Auto) 0.8 Nucleat RBC Rel Count 0.1 Neut # (Auto) 9.1 H Lymph # (Auto) 2.4 [place] # (Auto) 0.9 H Eos # (Auto) [...] MPV Neut % (Auto) Lymph % (Auto) [place] % (Auto) Eos % (Auto) Baso % (Auto) Nucleat RBC Rel Count Neut # (Auto) Lymph # (Auto) [place] # (Auto) Eos # (Auto) Baso # [...] this to her today. [facility] [...] By: <Electronically signed by Zaid Mon MD> 02/02/236 [facility] Work Phone: Progress note Author CWThanh wallis [facility] February 02, 2023 12:41pmNote Date/TimeNov2022 12:41pm[place] [address] Podiatry Progress Note Signed Patient: Ema Neff MR#: [id number] : 1965 Acct:[id number] Age/Sex: 58 / F Adm Date: 3 Loc: 4N Room: [address] [place] [address] Type: ADM IN Attending Dr: Ryland Liu MD Copies to: ~ Subjective Subjective Date of Service: Date of Service: 02/02/2023 Time of Service: 12:33 Narrative: Ms. Neff is a 58 year old female who is typically followed by my partner Dr. Torres. She has recently undergone second left toe [...] no further intervention is available. Ischemia is likelycontributing to her lower extremity pain as well. 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.The patient will continue her current wound care [...] <Electronically signed by TERESA Deluna> 02/02/23 1241 [facility] Work Phone: Reason for referral (narrative)No reason for referral information availableCleveland Clinic Foundation Ctr Work Phone: Summary Purpose Family History No Family History Records Found Relationship Condition Age at Onset Recorded Date/T chela father Malignant neoplasm of urinary bladder Unk nown Malignant neoplasm of prostateUnknownDiabetes mellitusUnknownNot Specified DeceasedUnknownHistory of blood clotsUnknown Relationship Condition Age at Onset Recorded Date/T chela father Malignant neoplasm of urinary bladder Unk nown Malignant neoplasm of prostateUnknownDiabetes mellitusUnknownNot Specified DeceasedUnknownHistory of blood clotsUnknownfatherMalignant neoplasmUnknown Pulmonary embolismUnknown Relationship Condition Age at Onset Recorded Date/T chela father Malignant neoplasm of prostate Unknown Diabetes mellitusUnknownMalignant neoplasm of urinary bladderUnknownMalignant neoplasmUnknownmotherHistory of blood clotsUnknownDeceasedUnknownPulmonary embolismUnknown Advance Directives No Advanced Directives Records Found [...] leg wound, hx surgery post surgery open woundReason for VisitDiabetes mellitus with foot ulcer Diabetic foot infection [...] hx surgery post surgery open wound Wound infectionReason for VisitDiabetes mellitus with foot ulcer Diabetic foot infection [...] open wound Wound infection Diabetic Ulcers Bilateral FootReason for VisitDiabetes mellitus with foot ulcer Diabetic foot infection [...] Diabetic Ulcers Bilateral Foot Diabetic Ulcers Bilateral FootReason for VisitDiabetes mellitus with foot ulcer Diabetic foot infection [...] Diabetic Ulcers Bilateral Foot Diabetic Ulcers Bilateral FootReason for VisitDiabetes mellitus with foot ulcer Diabetic foot infection [...] Diabetic Ulcers Bilateral Foot r09.89 left foot painReason for VisitDiabetes mellitus with foot ulcer Diabetic foot infection [...] of left foot with necros foot ulcer;foot painReason for VisitChronic ulcer of left foot due to diabetes [...] foot abcess M79.675 L97.523 foot ulcer;foot pain E89.0;E03.9Reason for VisitInfection Wound infection Diabetes mellitus HTN (hypertension), benign [...] abcess M79.675 L97.523 foot ulcer;foot pain E89.0;E03.9 Z01.818Reason for VisitDiabetic foot ulcer Diabetic infection of left foot [...] Malitis w/ Foot Ulcer, Left Foot Ulcer w/Reason for VisitDiabetic foot ulcer Diabetic infection of left foot [...] Chief Complaint left leg swelling lt foot injuryReason for VisitDiabetes mellitus with foot ulcer Diabetic foot infection Dry gangrene Osteomyelitis PVD (peripheral vascular disease) Chief Complaint left leg swelling lt foot injuryReason for VisitCellulitis Diabetes mellitus with foot ulcer Diabetic foot infection Diabetic infection of left foot Dry gangrene Osteomyelitis PAD (peripheral artery disease) Peripheral vascular occlusive disease PVD (peripheral vascular disease) Surgical wound, non healing Type 2 diabetes mellitus with peripheral neuropathy Ulcer of left foot, limited to breakdown of skin Chief Complaint lt foot injury Leukocytosis E11.621Reason for VisitCellulitis Diabetes mellitus with foot ulcer Diabetic foot infection Diabetic infection of left foot Dry gangrene Osteomyelitis PAD (peripheral artery disease) Peripheral vascular occlusive disease PVD (peripheral vascular disease) Surgical wound, non healing Type 2 diabetes mellitus with peripheral neuropathy Ulcer of left foot, limited to breakdown of skin Chief Complaint lt foot injury Leukocytosis E11.621 surgical woundReason for VisitCellulitis Diabetes mellitus with foot ulcer Diabetic foot infection Diabetic infection of left foot Dry gangrene Osteomyelitis PAD (peripheral artery disease) Peripheral vascular occlusive disease PVD (peripheral vascular disease) Surgical wound, non healing Type 2 diabetes mellitus with peripheral neuropathy Ulcer of left foot, limited to breakdown of skin Neutrophilia Polycythemia Chief Complaint lt foot injury E11.621 surgical wound Leukocytosis Fu/ Pad With Non-Healing Diabetic Wound Z01.818Reason for VisitCellulitis Diabetes mellitus with foot ulcer Diabetic foot infection Diabetic infection of left foot Dry gangrene Osteomyelitis PAD (peripheral artery disease) Peripheral vascular occlusive disease PVD (peripheral vascular disease) Surgical wound, non healing Type 2 diabetes mellitus with peripheral neuropathy Ulcer of left foot, limited to breakdown of skin Neutrophilia Polycythemia Chief Complaint lt foot injury E11.621 surgical wound Leukocytosis Fu/ Pad With Non-Healing Diabetic Wound Z01.818 Other Injury of Unspecified Body RegionReason for VisitCellulitis Diabetes mellitus with foot ulcer Diabetic foot infection Diabetic infection of left foot Dry gangrene Osteomyelitis PAD (peripheral artery disease) Peripheral vascular occlusive disease PVD (peripheral vascular disease) Surgical wound, non healing Type 2 diabetes mellitus with peripheral neuropathy Ulcer of left foot, limited to breakdown of skin Neutrophilia Polycythemia Chief Complaint lt foot injury E11.621 surgical wound Leukocytosis Fu/ Pad With Non-Healing Diabetic Wound Z01.818 Other Injury of Unspecified Body Region T14.XXXA,Reason for VisitCellulitis Diabetes mellitus with foot ulcer Diabetic foot infection Diabetic infection of left foot Dry gangrene PAD (peripheral artery disease) Peripheral vascular occlusive disease PVD (peripheral vascular disease) Surgical wound, non healing Type 2 diabetes mellitus with peripheral neuropathy Ulcer of left foot, limited to breakdown of skin Neutrophilia Polycythemia Chief Complaint Leukocytosis Fu/ Pad With Non-Healing Diabetic Wound Z01.818 Other Injury of Unspecified Body Region T14.XXXA, e11.42 d58.2 f27Yeruag for VisitNeutrophilia Polycythemia Chief Complaint Surgical Wound Left Foot Chief Complaint Surgical Wound Left Foot Surgical Wound Left Foot L toe pain Chief Complaint Surgical Wound Left Foot Surgical Wound Left Foot L toe painReason for VisitDiabetic foot infection Chief Complaint Admit Date Hx of colon polyps February 28, 2024 1:00pm Chief Complaint Admit Date Hx of colon polyps February 28, 2024 1:00pm LT leg red/cellul; LT 2nd toe no healing /wounds May 25, 2024 10:17am Chief Complaint Admit Date I73.9 September 29, 2024 1:13 pm Chief Complaint Admit Date I73.9 September 29, 2024 1:13 pm left foot ulcer with fat layer exposed J sheridan 2024 11:27am Chief Complaint Admit Date I73.9 September 29, 2024 1:13 pm left foot ulcer with fat layer exposed J sheridan 2024 11:27am alternating b/w chills & fever October 3:08am Reason for Visit Admit Date Altered mental status October 20, 2024 3 :08am Cellulitis October 20, 2024 3:0 8am Osteomyelitis October 20, 2024 3:0 8am Reason for Visit Admit Date Acute hematogenous osteomyelitis, left a nkle and foot October 20, 2024 3:08am Altered mental status October 20, 2024 3 :08am Cellulitis October 20, 2024 3:0 8am Osteomyelitis October 20, 2024 3:0 8am PVD (peripheral vascular disease) October 20, 2024 3:08am Type 2 diabetes mellitus with diabetic n ephropathy October 20, 2024 3:08am Chief Complaint Admit Date I73.9 September 29, 2024 1:13 pm left foot ulcer with fat layer exposed J sheridan 2024 11:27am alternating b/w chills & fever October 3:08am MASLD December 21, 2024 12 :47pm Chief Complaint Admit Date left foot ulcer with fat layer exposed J sheridan 2024 11:27am alternating b/w chills & fever October 3:08am MASLD December 21, 2024 12 :47pm weakness December 29, 2024 8 :47pm Reason for Visit Admit Date Acute hematogenous osteomyelitis, left a nkle and foot October 20, 2024 3:08am Altered mental status October 20, 2024 3 :08am Cellulitis October 20, 2024 3:0 8am Osteomyelitis October 20, 2024 3:0 8am PVD (peripheral vascular disease) October 20, 2024 3:08am Type 2 diabetes mellitus with diabetic n ephropathy October 20, 2024 3:08am Altered mental status December 29, 2024 8:47pm Cellulitis December 29, 2024 8 :47pm Chronic low back pain December 29, 2024 8:47pm Diabetes mellitus with hyperglycemia Dec 8:47pm Diabetic ulcer of left foot December 8:47pm Hypertension December 29, 2024 8 :47pm Neutrophilia December 29, 2024 8 :47pm Polycythemia December 29, 2024 8 :47pm 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, 2024 8:47pm Reason for Visit Admit Date Acute hematogenous osteomyelitis, left a nkle and foot October 20, 2024 3:08am Altered mental status October 20, 2024 3 :08am Cellulitis October 20, 2024 3:0 8am Osteomyelitis October 20, 2024 3:0 8am PVD (peripheral vascular disease) October 20, 2024 3:08am Type 2 diabetes mellitus with diabetic n ephropathy October 20, 2024 3:08am Altered mental status December 29, 2024 8:47pm Cellulitis December 29, 2024 8 :47pm Cellulitis of left leg December 29 8:47pm Chronic low back pain December 29, 2024 8:47pm Chronic ulcer of left foot with fat laye r exposed December 29, 2024 8:47pm Diabetes mellitus due to und erlying condition with diabetic neuropathy, December 29, 2024 8:47pm Diabetes mellitus with hyperglycemia Dec 8:47pm Diabetic ulcer of left foot December 8:47pm Hypertension December 29, 2024 8 :47pm Neutrophilia December 29, 2024 8 :47pm Polycythemia December 29, 2024 8 :47pm 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 In the event of a proparacaine shortage, administer tetracaine 0.5% ophthalmic drops 1 drop in the right eye as directed for pneumo tonometry, tonopen tonometry, or pachymetry Given01/01/2023 1:00 PM EDT1 DropMedication OrderMAR ActionAction DateDoseRate Site bevacizumab intravitreal syringe 2.5 mg/0.1 mL 1.25 mg, ONCE, 1 dose, Starting on Wed01/01/23 at 1320, Until Wed01/01/23 at 1320 Given01/01/2023 1:20 PM EDT1.25 mgRight Reason for Referral SpecialtyDiagnoses / ProceduresReferred By ContactReferred To Contact Diagnoses Chronic bilateral low back pain without sciatica Jarvis Thrasher MD [address] [place] [address] Referral IDStatusReasonStart DateExpiration DateVisits RequestedVisits [id number] Iurgbu15/ Additional Source Comments INFORMATION SOURCE (unrecogn ized section and content) DATE CREATED AUTHOR 03/17/2019 [facility] DATE CREATED AUTHOR AUTHOR'S ORGANIZ ATION 2022 [facility] [place] DATE CREATED AUTHOR AUTHOR'S ORGANIZ ATION 12/18/2024 [facility] EPIC DATE CREATED AUTHOR AUTHOR'S ORGANIZ ATION 01/05/2025 [facility] DATE CREATED AUTHOR AUTHOR'S ORGANIZ ATION 01/10/2025 [facility] DATE CREATED AUTHOR AUTHOR'S ORGANIZ ATION 01/16/2025 [facility] Source Comments (unrecognize d section and content) In the event this informatio n is protected by the Federal Confidentiality of Alcohol and Drug Abuse Patient Records regulations: The Federal rules restrict any use of the information to criminally investigate or prosecute any alcohol or drug abuse patient.[facility] HospitalIn the event this information is protected by the Federal Confidentiality of Alcohol and Drug Abuse Patient Records regulations: The Federal rules restrict any use of the information to criminally investigate or prosecute any alcohol or drug abuse patient.[facility] HospitalIn the event this information is protected by the Federal Confidentiality of Alcohol and Drug Abuse Patient Records regulations: The Federal rules restrict any use of the information to criminally investigate or prosecute any alcohol or drug abuse patient.[facility] Reason for Visit (unrecogniz ed section and content) ReasonCommentsCentral retinal vein occlusion with macular edemaRIGHT EYE SpecialtyDiagnoses / ProceduresReferred By ContactReferred To Contact Ophthalmology / OPHTHALMOLOGY Diagnoses Central retinal vein occlusion, right eye, with macular edema Return in about 1 month (around 10/31/2022). Procedures [place] BEVACIZUMAB INJECTION INJECTION Sandra Goetz MD [address] [place] [address] [place] [address] [place] [address] Referral IDStatusReasonStart DateExpiration DateVisits RequestedVisits [id number]/22/20238/[id number] CommentsCentral Retinal Vein Occlusion Follow UpReasonCommentssurgical clearence ReasonOnset DateCommentsSurgery re-/09/2024ReasonOnset DateCommentsMed [id number] Month Follow UpLab drawn at [facility] today.URI Productive Cough, SOB, wheezing, runny nose, fatigue x 5 days.ReasonCommentsMed RefillReasonOnset DateCommentsMed [id number] DateCommentsMed [id number] DateCommentsLT third toe infected per patient 4ReasonOnset DateCommentsFR anewakoec54/27/2024ReasonCommentsleft toe infectionReasonOnset DateCommentsMed [id number] Month Follow Up of Chronic ConditionsNo lab ordered prior to visit. HBA1C done today = 10.2 %She cancelled colonoscopy due to not being able to hold Coumadin prior. Discuss MedicationPatient increased Atorvastatin on her own to 40 mg 2 po at bedtime for approximately 2-3 days. States this was recommended to her by a hospitalist doctor. She would also like to discuss Glimepiride. She was unable to tolerate Ozempic, caused GI upset.ReasonOnset DateCommentsMed Refill 05/08/2024ReasonCommentsFollow-upLT ULCER CHECKReasonCommentsFollow-upLt ulcer checkReasonCommentsFollow-upUlcer recheckReasonCommentsFollow-upUlcer check ReasonCommentsProcedureedsgReasonComments3 Month Follow-up of Chronic Conditions At last OV Amaryl was increased to 8 mg every day, added Jardiance and increased Lipitor to 80 mg every day.ReasonOnset DateCommentsMed Aguzsg8007/24/2024Reason CommentsFollow-up14d s/p edsgReasonCommentsFollow-upLt ulcerReasonOnset Date CommentsMed Wzlqnc9308/17/2024ReasonCommentsProcedureLt ulcer biopsyReasonComments Post-op11 wk edsgReasonOnset DateCommentsMed Kybkro4309/14/2024ReasonComments Follow-upUlcer/ pvr resultsReasonOnset DateCommentsMed Obrtij9610/10/2024Reason Comments3 month follow up of chronic conditionsReasonOnset DateComments Ubxslswixr80/06/2025ReasonCommentsHospital Follow-upPt was seen at [facility] from 10/20-10/22 for PVD, cellulitis and osteomyelitis but treating it like a stroke. Pt to follow up with podiatry (Dr Hays today at 4:30) and vascular surgery (Dr Mon saw pt in hospital). Left before being seen by infection disease doctor. Today pt reports she's still noteating well, and when she does her blood sugar has been up in the 300s. Pt reports that she has been dealing with watery diarrhea since Wednesday.ReasonCommentsFollow-upFr follow upReasonOnset Date CommentsMed Ezavwj2311/09/2024ReasonCommentsWeight loss optionsReasonOnset Date CommentsMed Muglka7612/11/2024ReasonCommentsFollow-upULCER CHECK Care Teams (unrecognized sec tion and content) Team Status: Active Member Role Status Katelyn Thrasher MD Primary Care Provider Active Team Status: Inactive Member Role Status Katelyn Thrasher MD Primary Care Provider Active St art: October 11, 2023 End: October 11, 2023EuVANNESSA [place] ProviderActiveStart: October 11, 2023 End: October 11, 2023 Team Status: Active Member Role Status Katelyn Thrasher MD Primary Care Provide r, Referring Provider Active Start: March 17, 2023 NoraAvelina Saul ProviderActiveStart: March 17, 2023 Team Status: Inactive Member Role Status Katelyn Mon MD Attending Provider Active Start: March 24, 2023 End: March 24, 2023 Team Status: Inactive Member Role Status Katelyn Thrasher MD Primary Care Provider Active St art: April 16, 2023 End: April 16, 2023EuJesus Baxter ProviderActiveStart: April 16, 2023 End: April 16, 2023 Team Status: Inactive Member Role Status Katelyn Thrasher MD Primary Care Provider Active St art: April 23, 2023 End: April 23, 2023EuJesus Baxter ProviderActiveStart: April 23, 2023 End: April 23, 2023 Team Status: Inactive Member Role Status Katelyn Thrasher MD Primary Care Provider Active St art: April 30, 2023 End: April 30, 2023Eukateryna Torres , DPMAttending ProviderActiveStart: April 30, 2023 End: April 30, 2023 Team Status: Inactive Member Role Status Katelyn Thrasher MD Primary Care Provide r, Attending Provider Active Start: June 01, 2023 End: June 01, 2023 Team Status: Inactive Member Role Status Katelyn Thrasher MD Primary Care Provider Active Jesus Ferrell ProviderActive Team Status: Active Member Role Status Katelyn Thrasher MD Primary Care Provider, Referring Prov ider Active Avelina Martell ProviderActive Team Status: Inactive Member Role Status Katelyn Thrasher MD Primary Care Provider Active Chino Peraza DOEmeduc ProviderActiveSravanthi Lane Provider ActiveRolando Sykes MDOther ProviderActiveEukateryna Torres , LOVEMOther Provider ActiveZaid Mon MDOther ProviderActiveRyland Liu MD Attending ProviderActive Team Status: Inactive Member Role Status Katelyn Thrasher MD Primary Care Provider, Attending Prov ider Active Team Status: Active Member Role Status Katelyn Thrasher MD Primary Care Provider, Attending Prov ider Active Team Status: Inactive Member Role Status Katelyn Thrasher MD Primary Care Provider Active [place] Becerra ProviderActive Team Status: Inactive Member Role Status Katelyn Thrasher MD Primary Care Provider Active Flash Roberson ProviderActive Team Status: Inactive Member Role Status Katelyn Thrasher MD Primary Care Provider Active [place] Packer ProviderActiveRukeily Marie MDAdmit Provider ActiveCaifeanyi Ramirez DPMOther ProviderActiveKarsten Vega MDOther Provider ActiveDisha Krishna ProviderActive Team Status: Inactive Member Role Status Katelyn Thrasher MD Primary Care Provider Active [place] Walden ProviderActive Team Status: Inactive Member Role Status Katelyn Thrasher MD Primary Care Provider Active [place] Becerra ProviderActiveHanbrenna Oscar , MDAdmit ProviderActiveZaid Mon MDOther ProviderActiveAndleidy Michael , MD Attending ProviderActive Team Status: Inactive Member Role Status Dates Jarvis Thrasher MD Primary Care Provider Active Zaid Mon , BRANDIdmit Provider, Attending ProviderActiveAlannah Lin , LUPEOther ProviderActiveGale Wesley , RNOther ProviderActiveMaryse Chapin , LUPEOther ProviderActiveMicbri Yang , RNOther ProviderActiveShiloh Haddad , LUPEOther ProviderActiveLily Penn , LUPEOther ProviderActiveRaalina Kaplan MDOther ProviderActiveAdria Beckett MDOther ProviderActiveLisa Geremias Dials , APRNOther ProviderActiveRonobiestefania Venegas , DOOther ProviderActiveMusbrendan Cruz MDOther ProviderActiveAdithya Rm , DOOther ProviderActive Dean Rodriguez MDOther ProviderActiveElise Marie MDOther ProviderActive Valerie Mas , ANP-BCOther ProviderActiveFredy Patricia MDOther Provider ActiveAba Griffith MDOther ProviderActiveYue Mendez MDOther Provider ActiveHafsa Ivy MDOther ProviderActiveThesme Duron MDOther Provider ActiveJuliane Campbell MDOther ProviderActiveFernandez Ramirez MDOther ProviderActiveSanna Martinez , ROAD ROLLER OPERATOR HOT MIX-COther ProviderActiveRyland Liu MDOther Provider ActiveMaximo Patel MDOther ProviderActiveSteph Fu MDOther ProviderActive Clyde Luna MDOther ProviderActiveHailee Berg , DOOther ProviderActiveRaj Oscar MDOther ProviderActiveNeal R Ceasar , DOOther ProviderActive Lashae Obika , APRNOther ProviderActiveCalvin Underwood , DOOther ProviderActive Rodney Marti MDOther ProviderActiveZakiya Hay RNOther ProviderActive Team Status: Inactive Member Role Status Katelyn Thrasher MD Primary Care Provider Active Yung David DOAttending ProviderActive Team Status: Inactive Member Role Status Katelyn Thrasher MD Primary Care Provider Active Zaid Fan , DOEmergency ProviderActiveWilber Barrientos Provider, Attending ProviderActiveRolando Sykes MDOther ProviderActivePatricavinash Hobbst , LPNOther ProviderActiveAlma Sanchez , LPNOther ProviderActive Karsten Vega MDOther ProviderActiveJaoliver Scott , ROAD ROLLER OPERATOR HOT MIX-COther Provider ActiveSai Obregon MDOther ProviderActiveZaid Mon MDOther ProviderActive Team Status: Active Member Role Status Dates Jarvis Thrasher MD Primary Care Provider Active Kanu Torres DPMEAGANdmandreia Provider, Attending ProviderActiveAlannah Lin RNOther ProviderActiveGale Wesley , RNOther ProviderActiveMaryse Chapin , LUPE Other ProviderActiveMicbri Yang , RNOther ProviderActiveShiloh Haddad RNOther ProviderActiveMogreg Penn RNOther ProviderActiveMalgorzata Kaplan MD Other ProviderActiveAnamilvia Beckett MDOther ProviderActiveLisa Geremias Duran , TESTING ENGINEER Other ProviderActiveRonmaryuri Venegas , DOOther ProviderActiveMusbrendan Cruz MD Other ProviderActiveAdithya Rm , DOOther ProviderActiveDean Rodriguez MDOther ProviderActiveElise Marie MDOther ProviderActiveLysaulo Mas , ANP-BCOther ProviderActiveFredy Patricia MDOther ProviderActiveAba Griffith MDOther ProviderActiveYue Mendez MDOther ProviderActiveHafsa Ivy MD Other ProviderActiveThesme Duron MDOther ProviderActiveJuliane Campbell MDOther ProviderActiveFernandez Ramirez MDOther ProviderActiveSanna Martinez , ROAD ROLLER OPERATOR HOT MIX-COther ProviderActiveRyland Liu MDOther ProviderActiveMaximo Patel MD Other ProviderActiveSteph Fu MDOther ProviderActiveClyde Luna MDOther ProviderActiveHailee Berg , DOOther ProviderActiveRaj Oscar MD Other ProviderActiveNeal R Ceasar , DOOther ProviderActiveAnthony M Miniaci , DOOther ProviderActiveLinda Obika , APRNOther ProviderActiveShchuyita Underwood , DO Other ProviderActiveObaradha Marti MDOther ProviderActiveZakiya Hay RN Other ProviderActive Team Status: Inactive Member Role Status Dates Jarvis Thrasher MD Primary Care Provider Active Kanu Torres DPMAdmit Provider, Attending ProviderActiveAlannah Lin , LUPEOther ProviderActiveDenohemy Wesley , RNOther ProviderActiveMaryse Chapin , LUPE Other ProviderActiveMicbri Yang , RNOther ProviderActiveShiloh Haddad RNOther ProviderActiveMogreg Penn RNOther ProviderActiveMalgorzata Kaplan MD Other ProviderActiveAnamilvia Beckett MDOther ProviderActiveLisa Geremias Dials , TESTING ENGINEER Other ProviderActiveRonobir Rubi , DOOther ProviderActiveMusbrendan Cruz MD Other ProviderActiveAdithya Rm , DOOther ProviderActiveDean Rodriguez MDOther ProviderActiveElise Marie MDOther ProviderActiveLysaulo Mas , ANP-BCOther ProviderActiveFredy Patricia MDOther ProviderActiveAba Griffith MDOther ProviderActiveYue Mendez MDOther ProviderActiveHafsa Ivy MD Other ProviderActiveThesme Duron MDOther ProviderActiveJuliane Campbell MDOther ProviderActiveEartadeo Ramirez MDOther ProviderActiveSanna Martinez , ROAD ROLLER OPERATOR HOT MIX-COther ProviderActiveRyland Liu MDOther ProviderActiveMaximo Patel MD Other ProviderActiveSteph Fu MDOther ProviderActiveClyde Luna MDOther ProviderActiveHailee Berg , DOOther ProviderActiveHanbrenna Oscar MD Other ProviderActiveNeal R Ceasar , DOOther ProviderActiveAnthony M Miniaci , DOOther ProviderActiveLinda Obika , APRNOther ProviderActiveCalvin Underwood , DO Other ProviderActiveObaradha Marti MDOther ProviderActiveZakiya Hay , LUPE Other ProviderActivePerose Arias , NPOther ProviderActiveAndra Ramirez , ROAD ROLLER OPERATOR HOT MIX-COther ProviderActiveJaved Snyder MDOther ProviderActiveThesme Sanders MDOther ProviderActive Team Status: Inactive Member Role Status Dates Jarvis Thrsaher MD Primary Care Provider Active Robert Larsen DOEmergency ProviderActiveHailee Berg , DOAdmit Provider ActiveRolando Sykes MDOther ProviderActiveEugene R. Melissa , DPMOther Provider ActiveZaid Mon MDOther ProviderActiveFredy Patricia MDAttending ProviderActive Team Status: Active Member Role Status Dates Jarvis Thrasher MD Primary Care Provider Active Kanu Torres , DPMAdmit Provider, Attending ProviderActiveZaid Mon MDOther ProviderActiveJose Owen , DOOther ProviderActive Alannah Lin , LUPEOther ProviderActiveGale Wesley , RNOther Provider ActiveMaryse Chapin RNOther ProviderActiveMariela Yang , RNOther Provider ActiveShiloh Haddad RNOther ProviderActiveLily Penn RNOther Provider ActiveMalgorzata Kaplan MDOther ProviderActiveAnamilvia Beckett MDOther Provider ActiveLisa Geremias Dials , APRNOther ProviderActiveRonobiestefania Venegas , DOOther Provider ActiveMusbrendan Cruz MDOther ProviderActiveAdithya Rm , DOOther ProviderActiveDean Rodriguez MDOther ProviderActiveElise Marie MDOther ProviderActiveLysaulo Mas , ANP-BCOther ProviderActiveFredy Patricia MD Other ProviderActiveAba Griffith MDOther ProviderActiveYue Mendez MDOther ProviderActiveHafsa Ivy MDOther ProviderActiveMichaetadeo Vicente , DOOther ProviderActiveRafat Duron MDOther ProviderActiveJuliane Campbell MDOther ProviderActiveFernandez Ramirez MDOther ProviderActiveSanna Martinez , ROAD ROLLER OPERATOR HOT MIX-COther ProviderActiveRyland Liu MDOther ProviderActiveMaximo Patel MD Other ProviderActiveSteph Fu MDOther ProviderActiveClyde Luna MDOther ProviderActiveHailee Berg , DOOther ProviderActiveRaj Oscar MD Other ProviderActiveNeal R Ceasar , DOOther ProviderActiveAnthony M Miniaci , DOOther ProviderActiveLinda Obika , APRNOther ProviderActiveCalvin Underwood DO Other ProviderActiveRodney Marti MDOther ProviderActiveZakiya Hay RN Other ProviderActive Team Status: Inactive Member Role Status Katelyn Thrasher MD Primary Care Provider Active Ankur Mahan , DOEmergency ProviderActive Team Status: Inactive Member Role Status Katelyn Thrasher MD Primary Care Provider Active Kanu Torres , DPMAdmit Provider, Attending ProviderActiveAlexandra Riley , RNOther ProviderActiveDenohemy Gearheart , RNOther ProviderActiveMaryse Chapin , RN Other ProviderActiveMicbri Yang , RNOther ProviderActiveShiloh Haddad RNOther ProviderActiveMogreg Penn RNOther ProviderActiveMalgorzata Kaplan MD Other ProviderActiveAnamilvia Beckett MDOther ProviderActiveLisa M Dials , TESTING ENGINEER Other ProviderActiveRonobir Rubi , DOOther ProviderActiveMusbrendan Cruz MD Other ProviderActiveKradam Rm , DOOther ProviderActiveDean Rodriguez MDOther ProviderActiveElise Marie MDOther ProviderActiveLysaulo Mas , ANP-BCOther ProviderActiveFredy Patricia MDOther ProviderActiveBadeborah Griffith MDOther ProviderActiveYue Mendez MDOther ProviderActiveHafsa Ivy MD Other ProviderActiveMichael Cinthia , DOOther ProviderActiveThesme Duron MD Other ProviderActiveFirhelen Campbell MDOther ProviderActiveEartadeo Ramirez MDOther ProviderActiveAmy J [place] , ROAD ROLLER OPERATOR HOT MIX-COther ProviderActiveRyland Liu MDOther ProviderActiveMaximo Patel MDOther ProviderActiveSteph Fu MDOther ProviderActiveClyde Luna MDOther ProviderActiveMarlisa Berg , DOOther ProviderActiveHani Sylwia Oscar MDOther ProviderActiveNeal R Ceasar , DO Other ProviderActiveAnthony M Miniaci , DOOther ProviderActiveLinda Obika , TESTING ENGINEER Other ProviderActiveShchuyita Underwood , DOOther ProviderActiveRodney Marti MDOther ProviderActiveSarosemary Hay RNOther ProviderActiveLabere Owen DO Other ProviderActiveZaid Mon MDOther ProviderActive Team Status: Inactive Member Role Status Dates Kanu Torres DPM Attending Provider Active PHYSICIAN NO FAMILYPrimary Care ProviderActive Team Status: Inactive Member Role Status Dates Zaid Mon MD Attending Provider Active PHYSICIAN NO FAMILYPrimary Care ProviderActive Team Status: Inactive Member Role Status Dates Kanu Torres DPM Attending Provider Active Team Status: Inactive Member Role Status Dates Kanu Torres DPM Attending Provider Active Trena Quintanilla Care ProviderActive Team Status: Inactive Member Role Status Katelyn Torres DPM Attending Provider Active NON STAFFPrimary Care ProviderActive Team Status: Inactive Member Role Status Katelyn Thrasher MD Primary Care Provider Active Temi Carbajal ProviderActive Team Status: Inactive Member Role Status Katelyn Thrasher MD Primary Care Provider Active Edith Scott ROAD ROLLER OPERATOR HOT MIX-CAttending ProviderActive Team Status: Active Member Role Status Katelyn Thrasher MD Primary Care Provider Active [place] ProviderActiveKyle T Givens , DOAdmit Provider, Attending ProviderActive Team Status: Inactive Member Role Status Katelyn Thrasher MD Primary Care Provider Active St art: January 28, 2023 End: February 02atricLeobardo Pattersonrshon ProviderActiveStart: January 28, 2023 End: February 02yle T Givens , DOAdmit ProviderActiveStart: January 28, 2023 End: February 02, 2023Micjulia Sykes MDOther ProviderActiveStart: January 28, 2023 End: February 02, 2023EuLOVE BaxterMOther ProviderActiveStart: January 28, 2023 End: February 02, 2023Sumi Roberson ProviderActiveStart: January 28, 2023 End: February 02, 2023Frmary jane Liu MDAttending ProviderActiveStart: January 28, 2023 End: February 02, 2023 Team Status: Inactive Member Role Status Katelyn Thrasher MD Primary Care Provide r, Attending Provider Active Start: February 09, 2023 End: February 09, 2023 Team Status: Inactive Member Role Status Katelyn Thrasher MD Primary Care Provider Active St art: February 19, 2023 End: February 19, 2023EuLOVE BaxterMAttending ProviderActiveStart: February 19, 2023 End: February 19, 2023Team MemberRelationshipSpecialtyStart DateEnd Jarvis Ponce MD [address] [address] PCP - GeneralInternal Medicine08/11/22 Kanu Torres DPM [address] [place] [address] Referring PhysicianPodiatry09/03/22 Zaid Mon MD [address] [place] [address] Consulting PhysicianVascular Surgery09/03/22Team MemberRelationshipSpecialtyStart End Jarvis Thrasher MD [address] [place] [address] PCP - GeneralInternal Medicine08/11/22 Kanu Torres DPM [address] [place], [facility] Referring PhysicianPodiatry09/03/22 Zaid Mon MD [address] [place] [address] Consulting PhysicianVascular Surgery09/03/22Te MemberRelationshipSpecialtyStart End Jarvis Thrasher MD [address] [place] [address] PCP - GeneralInternal Medicine08/11/22 Kanu Torres DPM [address] [place] [address] Referring PhysicianPodiatry09/03/22 Zaid Mon MD [address] [place] [address] Consulting PhysicianVascular Surgery09/03/22Team MemberRelationshipSpecialtyStart DateEnd Jarvis Thrasher MD [address] [place] [address] PCP - GeneralInternal Medicine08/11/22 Kanu Torres DPM [address] [place] [address] Referring PhysicianPodiatry09/03/22 Zaid Mon MD [address] [place] [address] Consulting PhysicianVascular Surgery09/03/22Team MemberRelationshipSpecialtyStart DateEnd Date Jarvis Thrasher MD [address] [place] [address] PCP - GeneralInternal Medicine08/11/22 Kanu Torres DPM [address] [place] [address] Referring PhysicianPodiatry09/03/22 Zaid Mon MD [address] [place] [address] Consulting PhysicianVascular Surgery09/03/22 Team Status: Inactive Member Role Status Dates Jarvis Thrasher MD Primary Care Provider Active St art: October 13, 2023 End: October 13, 2023Jesus Ferrell ProviderActiveStart: October 13, 2023 End: October 13, 2023 Team Status: Active Member Role Status Dates Jarvis Thrasher MD Primary Care Provider Active St art: November 08, 2023 Ayan Goldman MDEmergency ProviderActiveStart: November 08, 2023 Sravanthi Monroe Provider, Attending ProviderActiveStart: November 08, 2023 Team Status: Inactive Member Role Status Dates Jarvis Thrasher MD Primary Care Provider Active St art: November 08, 2023 End: November 09, 2023Ayan Goldman MDEmergeniliana ProviderActiveStart: November 08, 2023 End: November 09, 2023Sravanthi Monroe Provider, Attending Provider ActiveStart: November 08, 2023 End: November 09, 2023Team MemberRelationshipSpecialtyStart DateEnd Jarvis Thrasher MD [address] [place] [address] PCP - GeneralInternal Medicine08/11/22 Jarvis Thrasher MD [address] [place] [address] PCP - [place]09/13/23 Kanu Torres DPM [address] [place] [address] Referring PhysicianPodiatry09/03/22 Zaid Mon MD [address] [place] [address] [address] [place] [address] Consulting PhysicianVascular Surgery09/03/22 [facility] [place] [facility]09/21/23Team MemberRelationshipSpecialtyStart DateEnd Jarvis Thrasher MD [address] [place] [address] PCP - GeneralInternal Medicine08/11/22 Jarvis Thrasher MD [address] [place] [address] PCP - [place]09/13/23 Kanu Torres DPM [address] [place] [address] Referring PhysicianPodiatry09/03/22 Zaid Mon MD [address] [place], [place] [id number] Consulting PhysicianVascular Surgery09/03/22 [facility] [place] [facility]09/21/23Team MemberRelationshipSpecialtyStart DateEnd Jarvis Thrasher MD [address] [place] [address] PCP - GeneralInternal Medicine08/11/22 Jarvis Thrasher MD [address] [place], [facility] PCP - [place]09/13/23 Kanu Torres DPM [address] [place], [facility] Referring PhysicianPodiatry09/03/22 Zaid Mon MD [address] [place], [place] [id number] Consulting PhysicianVascular Surgery09/03/22 [facility] [place] [facility]09/21/23Team MemberRelationshipSpecialtyStart End Jarvis Thrasher MD [address] [place] [address] PCP - GeneralInternal Medicine08/11/22 Jarvis Thrasher MD [address] [place] [address] PCP - John RHODES09/13/23 Kanu Torres DPM [address] [place] [address] Referring PhysicianPodiatry09/03/22 Zaid Mon MD [address] [place] [address] [address] [place] [address] Consulting PhysicianVascular Surgery09/03/22 [facility] [place] [facility]09/21/23Team MemberRelationshipSpecialtyStart DateEnd Jarvis Thrasher MD [address] [place] [address] PCP - GeneralInternal Medicine08/11/22 Jarvis Thrasher MD [address] [place] [address] PCP - John RHODES09/13/23 Kanu Torres DPM [address] [place] [address] Referring PhysicianPodiatry09/03/22 Ziad Mon MD [address] [place] [address] [place] [address] Consulting PhysicianVascular Surgery09/03/22 [facility] [place] [facility]09/21/23Team MemberRelationshipSpecialtyStart End Jarvis Thrasher MD [address] [place] [address] PCP - GeneralInternal Medicine08/11/22 Jarvis Thrasher MD [address] [place] [address] PCP - [place]09/13/23 Kanu Torres DPM [address] [place] [address] Referring PhysicianPodiatry09/03/22 Zaid Mon MD [address] [facility] [address] [place] [address] Consulting PhysicianVascular Surgery09/03/22 [facility] [place] [facility]09/21/23Team MemberRelationshipSpecialtyStart DateEnd Jarvis Thrasher MD [address] [place] [address] PCP - GeneralInternal Medicine08/11/22 Jarvis Thrasher MD [address] [place] [address] PCP - John RHODES09/13/23 Kanu Torres DPM [address] [place] [address] Referring PhysicianPodiatry09/03/22 Zaid Mon MD [address] [facility] [address] [place] [address] Consulting PhysicianVascular Surgery09/03/22 [facility] [place] [facility]09/21/23Team MemberRelationshipSpecialtyStart End Jarvis Thrasher MD [address] [place] [address] PCP - GeneralInternal Medicine08/11/22 Kanu Torres DPM [address] [place] [address] Referring PhysicianPodiatry09/03/22 Zaid Mon MD [address] [place], [place] [phone] Consulting PhysicianVascular Surgery09/03/22 [facility] [place] [facility]09/21/23Team MemberRelationshipSpecialtyStart DateEnd Jarvis Thrasher MD [address] [place] [address] PCP - GeneralInternal Medicine08/11/22 Kanu Torres DPM [address] [place], [facility] Referring PhysicianPodiatry09/03/22 Zaid Mon MD [address] [place], [place] [phone] Consulting PhysicianVascular Surgery09/03/22 [facility] [place] [facility]09/21/23Team MemberRelationshipSpecialtyStart DateEnd Date Jarvis Thrasher MD [address] [place] [address] PCP - GeneralInternal Medicine08/11/22 Kanu Torres DPM [address] [place] [address] Referring PhysicianPodiatry09/03/22 Zaid Mon MD [address] [place] [address] [place] [address] Consulting PhysicianVascular Surgery09/03/22 [facility] [place] [facility]09/21/23Te MemberRelationshipSpecialtyStglen carbon [facility] Jarvis Thrasher MD [address] [place] [address] PCP - GeneralInternal Medicine08/11/22 Jarvis Thrasher MD [address] [place] [address] PCP - [place]09/13/23 Kanu Torres DPM [address] [place] [address] Referring PhysicianPodiatry09/03/22 Zaid Mon MD [address] [place] [address] [place] [address] Consulting PhysicianVascular Surgery09/03/22 [facility] Ophthalmology09/21/23Te MemberRelationshipSpecialtyStart [facility] Jarvis Thrasher MD [address] [place] [address] PCP - GeneralInternal Medicine08/11/22 Jarvis Thrasher MD [address] [place] [address] PCP - John SC09/13/23 Kanu Torres DPM [address] [place] [address] Referring PhysicianPodiatry09/03/22 Zaid Mon MD [address] [address] Consulting PhysicianVascular Surgery09/03/22 [facility]09/21/23Team MemberRelationshipSpecialtyStart DateEnd Jarvis Thrasher MD [address] [place] [address] PCP - GeneralInternal Medicine08/11/22 Jarvis Thrasher MD [address] [place] [address] PCP - [place]09/13/23 Kanu Torres DPM [address] [place] [address] Referring PhysicianPodiatry09/03/22 Zaid Mon MD [address] [place] [address] Consulting PhysicianVascular Surgery09/03/22 [facility] [place] [facility]09/21/23 Team Status: Inactive Member Role Status Dates Jarvis Thrasher MD Primary Care Provider Active St art: February 28, 2024 End: February 27Flash Arteaga ProviderActiveStart: February 28, 2024 End: February 28, 2024Team MemberRelationshipSpecialtyStart DateEnd Jarvis Thrasher MD [address] [place] [address] PCP - GeneralInternal Medicine08/11/22 Kanu Torres DPM [address] [place] [address] Referring PhysicianPodiatry09/03/22 Zaid Mon MD [address] [place] [address] Consulting PhysicianVascular Surgery09/03/22 [facility] Ophthalmology09/21/23 Team Status: Inactive Member Role Status Dates Jarvis Thrasher MD Primary Care Provider Active St art: May 25, 2024 End: May 25, 2024Mattanamaria Mon , MDActiveStart: May 25, 2024 End: May 25, 20[address]AD ROLLER OPERATOR HOT MIX-CAttending ProviderActiveStart: May 25, 2024 End: May 25, 2024Team MemberRelationshipSpecialtyStart DateEnd Jarvis Thrasher MD [address] [place] [address] PCP - GeneralInternal Medicine08/11/22 Jarvis Thrasher MD [address] [place] [address] PCP - John [place]09/13/23 Kanu Torres, DPM [address] [place] [address] Referring PhysicianPodiatry09/03/22 Zaid Mon MD [address] [place] [address] Consulting PhysicianVascular Surgery09/03/22 [facility] Ophthalmology09/21/23Team MemberRelationshipSpecialtyStart DateEnd Jarvis Thrasher MD [address] [place] [address] PCP - GeneralInternal Medicine08/11/22 Jarvis Thrasher MD [address] [place] [address] PCP - [place]09/13/23 Kanu Torres DPM [address] [place] [id number] Referring PhysicianPodiatry09/03/22 Zaid Mon MD [address] [place], [place] [id number] Consulting PhysicianVascular Surgery09/03/22 [facility]09/21/23Team MemberRelationshipSpecialtyStart DateEnd Jarvis Thrasher MD [address] [place], [facility]70 PCP - GeneralInternal Medicine08/11/22 Jarvis Thrasher MD [address] [place], [facility]70 PCP - John [place]09/13/23 Kanu Torres DPM [address] [place], [facility]70 Referring PhysicianPodiatry09/03/22 Zaid Mon MD [address] [place] [phone] Consulting PhysicianVascular Surgery09/03/22 [facility]09/21/23Team MemberRelationshipSpecialtyStart End Jarvis Thrasher MD [address] [place] [address] PCP - GeneralInternal Medicine08/11/22 Jarvis Thrasher MD [address] [place] [address] PCP - [place]09/13/23 Kanu Torres DPM [address] [place] [address] Referring PhysicianPodiatry09/03/22 Zaid Mon MD [address] [place], [place] [address] [id number] Consulting PhysicianVascular Surgery09/03/22 [facility]09/21/23Team MemberRelationshipSpecialtyStart DateEnd [facility] Jarvis Thrasher MD [address] [place] [address] PCP - GeneralInternal Medicine08/11/22 Kanu Torres DPGeremias [address] [place] [address] Referring PhysicianPodiatry09/03/22 Zaid Mon MD [address] [place], [place] [phone] Consulting PhysicianVascular Surgery09/03/22 [facility]09/21/23Team MemberRelationshipSpecialtyStart [facility] Jarvis Thrasher MD [address] [place] [address] PCP - GeneralInternal Medicine08/11/22 Kanu Torres DPM [address] [place] [address] Referring PhysicianPodiatry09/03/22 Zaid Mon MD [address] [place] [address] Consulting PhysicianVascular Surgery09/03/22 [facility]09/21/23Team MemberRelationshipSpecialtyStart DateEnd Jarvis Thrasher MD [address] [place] [address] PCP - GeneralInternal Medicine08/11/22 Kanu Torres DPM [address] [place] [address] Referring PhysicianPodiatry09/03/22 Zaid Mon MD [address] [place] [address] Consulting PhysicianVascular Surgery09/03/22 [facility]09/21/23Team MemberRelationshipSpecialtyStart DateEnd Jarvis Thrasher MD [address] [place] [address] PCP - GeneralInternal Medicine08/11/22 Kanu Torres DPM [address] [place] [address] Referring PhysicianPodiatry09/03/22 Zaid Mon MD [address] [place] [address] Consulting PhysicianVascular Surgery09/03/22 [facility]09/21/23Team MemberRelationshipSpecialtyStart [facility] Jarvis Thrasher MD [address] [place] [address] PCP - GeneralInternal Medicine08/11/22 Kanu Torres DPM [address] [place] [address] Referring PhysicianPodiatry09/03/22 Zaid Mon MD [address] [place] [address] Consulting PhysicianVascular Surgery09/03/22 [facility] Ophthalmology09/21/23Team MemberRelationshipSpecialtyStart [facility] Jarvis Thrasher MD [address] [place] [address] PCP - GeneralInternal Medicine08/11/22 Kanu Torres DPGeremias [address] [place] [address] Referring PhysicianPodiatry09/03/22 Zaid Mon MD [address] [place] [address] Consulting PhysicianVascular Surgery09/03/22 [facility] Ophthalmology09/21/23Team MemberRelationshipSpecialtyStart [facility] Jarvis Thrasher MD [address] [place] [address] PCP - GeneralInternal Medicine08/11/22 Kanu Torres DPM [address] [place] [phone] Referring PhysicianPodiatry09/03/22 Zaid Mon MD [address] [place], [place] [phone] Consulting PhysicianVascular Surgery09/03/22 [facility] Ophthalmology09/21/23Team MemberRelationshipSpecialtyStart DateEnd Date Jarvis Thrasher MD [address] [place] [id number] PCP - GeneralInternal Medicine08/11/22 Kanu Torres DPM [address] [place] [phone] Referring PhysicianPodiatry09/03/22 Zaid Mon MD [address] [place], [place] [phone] Consulting PhysicianVascular Surgery09/03/22 [facility] Ophthalmology09/21/23 Team Status: Inactive Member Role Status Dates Jarvis Thrasher MD Primary Care Provider Active St art: September 29, 2024 End: September 29, 2024Jesus Albright ProviderActiveStart: September 29, 2024 End: September 29, 2024 Team Status: Inactive Member Role Status Dates Jarvis Thrasher MD Primary Care Provider Active St art: October 09, 2024 End: October 09, 2024Jesus Albright ProviderActiveStart: October 09, 2024 End: October 09, 2024Team MemberRelationshipSpecialtyStart DateEnd Date Jarvis Thrasher MD [address] [place] [address] PCP - GeneralInternal Medicine08/11/22 Kanu Torres DPM [address] [place] [address] Referring PhysicianPodiatry09/03/22 Zaid Mon MD [address] [place] [address] Consulting PhysicianVascular Surgery09/03/22 [facility]09/21/23Team MemberRelationshipSpecialtyStart DateEnd Date Jarvis Thrasher MD [address] [facility] [address] [place] [address] PCP - GeneralInternal Medicine08/11/22 Kanu Torres DPM [address] [facility] [address] [place] [address] Referring PhysicianPodiatry09/03/22 Zaid Mon MD [address] [place] [address] Consulting PhysicianVascular Surgery09/03/22 [facility] Ophthalmology09/21/23 Team Status: Active Member Role Status Dates Jarvis Thrasher MD Primary Care Provider Active St art: October 20, 2024 Tacos Walden ProviderActiveStart: October 20, 2024 Wilber Reyez ProviderActiveStart: October 20, 2024 Flash Reeyz ProviderActiveStart: October 20, 2024 Team MemberRelationshipSpecialtyStart DateEnd Jarvis Thrasher MD [address] [place] [address] PCP - GeneralInternal Medicine08/11/22 Kanu Torres DPM [address] [place] [address] Referring PhysicianPodiatry09/03/22 Zaid Mon MD [address] [place] [address] Consulting PhysicianVascular Surgery09/03/22 [facility] Ophthalmology09/21/23 Team Status: Active Member Role Status Dates Jarvis Thrasher MD Primary Care Provider Active St art: October 20, 2024 Chino Peraza , DOEmergency ProviderActiveStart: October 20, 2024 Glenn Bales , MDAdmit ProviderActiveStart: October 20, 2024 Felisa Iglesias MDOther ProviderActiveStart: October 20, 2024 Kenan Cooley DOOther ProviderActiveStart: October 20, 2024 LOVE AlbrightMOther ProviderActiveStart: October 20, 2024 Zaid Mon MDAttending ProviderActiveStart: October 20, 2024 Zaid Mon MDOther ProviderActiveStart: October 20, 2024 Rolando Sykes MDOther ProviderActiveStart: October 20, 2024 Team MemberRelationshipSpecialtyStart DateEnd Jarvis Thrasher MD [address] [place] [address] PCP - GeneralInternal Medicine08/11/22 Kanu Torres DPM [address] [place] [address] Referring PhysicianPodiatry09/03/22 Zaid Mon MD [address] [place] [address] [place] [address] Consulting PhysicianVascular Surgery09/03/22 [facility] Ophthalmology09/21/23Team MemberRelationshipSpecialtyStart [facility] Jarvis Thrasher MD [address] [place] [address] PCP - GeneralInternal Medicine08/11/22 Kanu Torres DPM [address] [place] [address] Referring PhysicianPodiatry09/03/22 Zaid Mon MD [address] [place] [address] Consulting PhysicianVascular Surgery09/03/22 [facility] Ophthalmology09/21/23Team MemberRelationshipSpecialtyStart [facility] Jarvis Thrasher MD [address] [place] [address] PCP - GeneralInternal Medicine08/11/22 Kanu Torres DPGeremias [address] [place] [address] Referring PhysicianPodiatry09/03/22 Zaid Mon MD [address] [place] [address] Consulting PhysicianVascular Surgery09/03/22 [facility] Ophthalmology09/21/23Team MemberRelationshipSpecialtyStart [facility] Jarvis Thrasher MD [address] [place] [address] PCP - GeneralInternal Medicine08/11/22 Kanu Torres DPM [address] [place] [address] Referring PhysicianPodiatry09/03/22 Zaid Mon MD [address] [facility] [address] [place] [address] Consulting PhysicianVascular Surgery09/03/22 [facility] Ophthalmology09/21/23 Team Status: Inactive Member Role Status Katelyn Thrasher MD Primary Care Provider Active St art: December 21, 2024 End: December 21, 2024Jarvis Thrasher MDAttending ProviderActiveStart: December 21, 2024 End: December 21, 2024Jarvis Thrasher MDReferring ProviderActiveStart: December 21, 2024 End: December 21, 2024 Team Status: Active Member Role/Relationship Status Katelyn Thrasher MD Primary Care Provider Active Team Status: Inactive Member Role/Relationship Status Katelyn Thrasher MD Primary Care Provider Active St art: October 09, 2024 End: October 09, 2024LOVE AlbrightMAjulianending ProviderActiveStart: October 09, 2024 End: October 09, 2024 Team Status: Active Member Role/Relationship Status Katelyn Thrasher MD Primary Care Provider Active St art: October 20, 2024 Chino Peraza , DOEmergency ProviderActiveStart: October 20, 2024 Glenn Bales MDAdmit ProviderActiveStart: October 20, 2024 Felisa Iglesias MDOther ProviderActiveStart: October 20, 2024 Kenan Cooley DOOther ProviderActiveStart: October 20, 2024 LOVE AlbrightMOther ProviderActiveStart: October 20, 2024 Flash Roberson ProviderActiveStart: October 20, 2024 Zaid Mon MDOther ProviderActiveStart: October 20, 2024 Rolando Sykes MDOther ProviderActiveStart: October 20, 2024 Team Status: Inactive Member Role/Relationship Status Katelyn Thrasher MD Primary Care Provider Active St art: December 21, 2024 End: December 21, 2024MANASA Quintanillaeferring ProviderActiveStart: December 21, 2024 End: December 21Flash Arteaga ProviderActiveStart: December 21, 2024 End: December 21, 2024 Team Status: Active Member Role/Relationship Status Dates Jarvis Thrasher MD Primary Care Provider Active St art: December 29, 2024 Corin Lewis ProviderActiveStart: December 29, 2024 Emran Jered Jones-Alamaritza , MDAdmit ProviderActiveStart: December 29, 2024 Emran Jered Jones-Alamaritza , MDAttending ProviderActiveStart: December 29, 2024 Team Status: Active Member Role/Relationship Status Dates Jarvis Thrasher MD Primary Care Provider Active St art: December 29, 2024 Corin Lewis ProviderActiveStart: December 29, 2024 Emrromeo Ro , MDAdmit ProviderActiveStart: December 29, 2024 Kvng Valdovinos MDOther ProviderActiveStart: December 29, 2024 SUJATA Albrightther ProviderActiveStart: December 29, 2024 Flash Roberson ProviderActiveStart: December 29, 2024 Zaid Mon MDOther ProviderActiveStart: December 29, 2024 Team MemberRelationshipSpecialtyStart DateEnd Jarvis Thrasher MD [address] [place] [address] PCP - GeneralInternal Medicine08/11/22 Kanu Torres DPM [address] [place] [address] Referring PhysicianPodiatry09/03/22 Zaid Mon MD [address] [place] [address] [address] [place] [address] Consulting PhysicianVascular Surgery09/03/22 [facility]09/21/23 Goals (unrecognized section and content) Goals may [...] BE BASED ON THE PRIMARY CLINICAL RECORDS. [employer] [facility]. provides no warranty or guarantee of the accuracy or completeness of information in this document.
--- NOTE | 2025-01-17 12:29 | XR_ITS ---
[address] [address] Patient Name: EMA NEFF MRN: [id number] date: 1965 Sex: F Assigned Patient Location: [facility] Current Patient Location: [facility] Accession/Order Number: [id number] Exam Date: 01/17/2025 12:25 Report Date: 01/17/2025 23:55 At the request of: PIPE LOPEZ Procedure: XR chest 2V Plain film chest 2 view HISTORY: Medical clearance COMPARISON: None FINDINGS: SUPPORT DEVICES: None POSTSURGICAL CHANGES: None HEART: Within normal limits PULMONARY DIANN: Within normal limits MEDIASTINUM: Unremarkable LUNGS AND PLEURA: No acute lung process, pleural effusion or pneumothorax identified. BONY STRUCTURES: Thoracic spondylosis ADDITIONAL FINDINGS None XR/XR chest 2V IMPRESSION: No acute process. Impression dictated by: Karsten Duenas M.D. 01/17/2025 11:55 PM Dictation Location: [place] [address] Electronically authenticated by: [id number] Y Date: 01/17/2025 23:55
--- OUTSIDE RECORDS SUMMARY | 2025-01-17 14:30 | XMS_ITS | Encounter Summary ---
Author Organization [facility] Address [address] [place] [address] Support Name Relationship Address Phone Louie Ayala Unrelated friend [address] [place] [address] Ayan Tamayo Personal Relationship Unknown [phone] Care Team Providers Care Repeater Operator Name Role Phone Carl Thrasher MD Primary Care Provider [phone] Kanu Torres DPM Unavailable [phone] Zaid Mon MD Unavailable [phone] Reason for Visit * ReasonComments3 month follow up of chronic conditions Encounter Details DateTypeDepartmentCare Team (Latest Contact Info)Djgrcohdynr45/05/2025 2:30 PM ESTOffice Visit [facility] [address] [facility] [address] [place] [id number] Type 2 diabetes mellitus with diabetic polyneuropathy, without long-term current use of insulin (HCC) (Primary Dx); Essential hypertension; Metabolic dysfunction-associated steatotic liver disease (MASLD); Chronic insomnia; Polyneuropathy associated with underlying disease (HCC); Spinal stenosis of lumbar region without neurogenic claudication; Morbid obesity ([facility]-H[facility]); BMI 40.0-44.9, adult ([facility]) Social History Tobacco UseTypesPacks/DayYears UsedDateSmoking Tobacco: [id number] 03/15/1985 - 2Smokeless Tobacco: NeverAlcohol UseStandard Drinks/Week CommentsNever0 (1 standard drink = 0.6 oz pure alcohol)caffeine: 2-3 cups per day coffeePHQ-2AnswerDate RecordedPatient Health Questionnaire-2 Score0 4CommentsUnknownSex and Gender InformationValueDate RecordedSex Assigned at QuvwtHensnw27/23/2023 4:09 PM EDTLegal OvfUktzti53/15/2023 7:14 PM EDTGender ZgjbnhjyKvdmno40/23/2023 4:09 PM EDTSexual OrientationNot on file OccupationIndustryJob Start DateJob End DatedisabledNot on fileNot on fileNot on filedocumented as of this encounter Plan of Treatment Not on file documented as of this encounter Visit Diagnoses Diagnosis [...] MD [address] [place] [address] PCP - GeneralInternal Medicine08/11/22 Kanu Torres DPM [address] [place] [address] Referring PhysicianPodiatry09/03/22 Zaid Mon MD [address] [place] [address] [address] [place] [address] Consulting PhysicianVascular Surgery09/03/22 [facility] Ophthalmology09/21/23documented as of this encounter
== END 2025-01-17 12:12 | disposition home or self-care (01) ==
LOC: RAD 12:14
PROVIDERS: PCP Internal Medicine; Visit Provider Podiatrist Foot & Ankle Surgery
DX: E11.621 Type 2 diabetes mellitus with foot ulcer (principal)
CPT/HCPCS: 71046